=== PATIENT | female | born 1935 | race Caucasian/White ===

== ENCOUNTER 2016-11-30 15:17 | Inpatient (IN) | payer MEDICARE ==
[2016-11-30] MEDS ORDERED: IPRATROPIUM-ALBUTEROL 3 ML NEB INHALATION STA (15:53)
[2016-11-30] MEDS ORDERED: ACETAMINOPHEN TAB 500 MG TAB PO STA (15:53)
[2016-11-30 16:25] LABS: ALT 61 U/L (9-52); AST 65 U/L (14-36); Alkaline Phosphatase 63 U/L (38-126); Anion Gap 12 mmol/L; Blood Urea Nitrogen 20 mg/dL (7-17); Calcium 9.3 mg/dL (8.4-10.2); Carbon Dioxide 28 mmol/L (22-30); Chloride 98 mmol/L (98-107); Glucose 116 mg/dL (74-99); Non-African American GFR(MDRD) >60 (>60 ml/min/1.73 sqM); Sodium 138 mmol/L (137-145); Total Bilirubin 1.1 mg/dL (0.2-1.3); Total Protein 8.1 g/dL (6.3-8.2)
[2016-11-30 16:34] LABS: Creatine Kinase 42 U/L (30-135)
--- NOTE | 2016-11-30 16:37 | ED ---
SOB HPI - General Chief Complaint: Shortness of Breath Stated Complaint: Diff breathing Time Seen by Provider: 11/30/16 15:41 Source: patient, RN notes reviewed Mode of arrival: wheelchair Limitations: no limitations - History of Present Illness Initial Comments: 81-year-old female presents emergency Department chief complaint cough and congestion shortness of breath. Patient states her symptoms started over the last 4 days. She did not areas that she had a fever at home has not taken any acetaminophen. Patient states the cough is productive at time and she has a history of pneumonia. Patient states that she did have a flu shot this year. Patient states this no known lung disease including COPD or asthma. Patient states she does not use any previous injuries at home. Patient states that she' s had a CVA in the past and does take Coumadin. He denies any chest pain. Patient has nausea, vomiting. Patient denies any sick contacts. - Related Data Home Medications Medication Instructions Recorded Confirmed ALPRAZolam [Xanax] 0.25 mg PO HS PRN 11/30/16 11/30/16 Albuterol Sulfate [Proair Hfa] 2 puff INHALATION RT-Q6H PRN 11/30/16 11/30/16 Alendronate Sodium [Fosamax] 70 mg PO SCHMITT 11/30/16 11/30/16 Atenolol [Tenormin] 25 mg PO DAILY 11/30/16 11/30/16 Budesonide/Formoterol Fumarate 2 puff INHALATION RT-BID 11/30/16 11/30/16 [Symbicort 160-4.5 Mcg Inhaler] Citalopram Hydrobromide [CeleXA] 20 mg PO DAILY 11/30/16 11/30/16 Docusate [Colace] 200 mg PO HS 11/30/16 11/30/16 Famotidine [Pepcid] 20 mg PO DAILY 11/30/16 11/30/16 Ferrous Sulfate [Feosol] 325 mg PO DAILY 11/30/16 11/30/16 Furosemide [Lasix] 20 mg PO BID 11/30/16 11/30/16 HYDROcodone/APAP 10-325MG [[place] 1 tab PO Q8H PRN 11/30/16 11/30/16 10-325] Latanoprost [Xalatan 0.005%] 1 drop BOTH EYES HS 11/30/16 11/30/16 Levothyroxine Sodium [Synthroid] 100 mcg PO DAILY 11/30/16 11/30/16 Potassium Chloride ER [K-Dur 10] 10 meq PO DAILY 11/30/16 11/30/16 Simvastatin [Zocor] 40 mg PO HS 11/30/16 11/30/16 Warfarin [Coumadin] 7.5 mg PO SUMOWEFRSA 11/30/16 11/30/16 Warfarin [Coumadin] 10 mg PO TUTH 11/30/16 11/30/16 amLODIPine [Norvasc] 5 mg PO BID 11/30/16 11/30/16 fentaNYL 25MCG/HR PATCH [Durages[place] 1 patch TRANSDERM Q72H 11/30/16 11/30/16 25MCG/HR] rOPINIRole HCL [Requip] 1 mg PO HS 11/30/16 11/30/16 Allergies Allergy/AdvReac Type Severity Reaction Status Date / Time sulfamethoxazole AdvReac Nausea & Verified 11/30/16 16:01 [From Bactrim] Vomiting trimethoprim [From Bactrim] AdvReac Nausea & Verified 11/30/16 16:01 Vomiting Review of Systems ROS Statement: Those systems with pertinent positive or pertinent negative responses have been documented in the HPI. ROS Other: All systems not noted in ROS Statement are negative. Past Medical History Past Medical History: Cancer, CVA/TIA, Hypertension, Osteoarthritis (OA) Additional Past Medical History / Comment(s): Ht Murmur; Colon Ca History of Any Multi-Drug Resistant Organisms: None Reported Past Surgical History: Orthopedic Surgery Additional Past Surgical History / Comment(s): Left hip IM Nailing; Hand surgery Past Psychological History: No Psychological Hx Reported Smoking Status: Former smoker Past Alcohol Use History: None Reported Past Drug Use History: None Reported General Exam Limitations: no limitations General appearance: alert, in no apparent distress Head exam: Present: atraumatic, normocephalic, normal inspection Eye exam: Present: normal appearance, PERRL, EOMI. Absent: scleral icterus, conjunctival injection, periorbital swelling ENT exam: Present: normal exam, mucous membranes moist Neck exam: Present: normal inspection, full ROM. Absent: tenderness, meningismus, lymphadenopathy Respiratory exam: Present: wheezes (Bilateral). Absent: normal lung sounds bilaterally, respiratory distress, rales, rhonchi, stridor Cardiovascular Exam: Present: regular rate, normal rhythm, normal heart sounds. Absent: systolic murmur, diastolic murmur, rubs, gallop, clicks Extremities exam: Present: other (Amputation of the right hand) Neurological exam: Present: alert, oriented X3, CN II-XII intact Skin exam: Present: warm, dry, intact, normal color. Absent: rash Course Vital Signs 11/30/16 11/30/16 11/30/16 15:30 15:40 17:15 Temperature 101.5 F H Pulse Rate 84 74 Respiratory 22 22 Rate Blood Pressure 142/65 129/72 O2 Sat by Pulse 88 L 92 L Oximetry 11/30/16 11/30/16 11/30/16 17:29 17:49 17:50 Temperature 99.8 F H Pulse Rate 73 79 Respiratory Rate Blood Pressure O2 Sat by Pulse Oximetry 11/30/16 17:56 Temperature Pulse Rate 72 Respiratory Rate Blood Pressure 108/57 O2 Sat by Pulse 97 Oximetry Medical Decision Making - Lab Data Result diagrams: 11/30/16 16:59 11/30/16 15:50 Lab Results 11/30/16 11/30/16 11/30/16 Range/Units 15:50 15:50 15:50 WBC (3.8-10.6) k/uL RBC (3.80-5.40) m/uL Hgb (11.4-16.0) gm/dL Hct (34.0-46.0) % MCV (80.0-100.0) fL MCH (25.0-35.0) pg MCHC (31.0-37.0) g/dL RDW (11.5-15.5) % Plt Count (150-450) k/uL Neutrophils % % Lymphocytes % % Monocytes % % Eosinophils % % Basophils % % Neutrophils # (1.3-7.7) k/uL Lymphocytes # (1.0-4.8) k/uL Monocytes # (0-1.0) k/uL Eosinophils # (0-0.7) k/uL Basophils # (0-0.2) k/uL Large Platelets Polychromasia PT (9.0-12.0) sec INR (<1.1) APTT (22.0-30.0) sec Sodium 138 (137-145) mmol/L Potassium 5.0 (3.5-5.1) mmol/L Chloride 98 (98-107) mmol/L Carbon Dioxide 28 (22-30) mmol/L Anion Gap 12 mmol/L BUN 20 H (7-17) mg/dL Creatinine 0.89 (0.52-1.04) mg/dL Est GFR (MDRD) Af Amer >60 (>60 ml/min/1.73 sqM) Est GFR (MDRD) Non-Af >60 (>60 ml/min/1.73 sqM) Glucose 116 H (74-99) mg/dL Calcium 9.3 (8.4-10.2) mg/dL Total Bilirubin 1.1 (0.2-1.3) mg/dL AST 65 H (14-36) U/L ALT 61 H (9-52) U/L Alkaline Phosphatase 63 (38-126) U/L Total Creatine Kinase 42 (30-135) U/L CK-MB (CK-2) <0.2 (0.0-2.4) ng/mL CK-MB (CK-2) Rel Index Troponin I <0.012 (0.000-0.034) ng/mL NT-Pro-B Natriuret Pep 855 pg/mL Total Protein 8.1 (6.3-8.2) g/dL Albumin 4.4 (3.5-5.0) g/dL Influenza Type A RNA (Not Detectd) Influenza Type B (PCR) (Not Detectd) 11/30/16 11/30/16 11/30/16 Range/Units 16:58 16:59 16:59 WBC 7.6 (3.8-10.6) k/uL RBC 3.72 L (3.80-5.40) m/uL Hgb 11.2 L (11.4-16.0) gm/dL Hct 35.1 (34.0-46.0) % MCV 94.3 (80.0-100.0) fL MCH 30.1 (25.0-35.0) pg MCHC 31.9 (31.0-37.0) g/dL RDW 14.4 (11.5-15.5) % Plt Count 76 L (150-450) k/uL Neutrophils % 71 % Lymphocytes % 20 % Monocytes % 5 % Eosinophils % 1 % Basophils % 1 % Neutrophils # 5.4 (1.3-7.7) k/uL Lymphocytes # 1.5 (1.0-4.8) k/uL Monocytes # 0.4 (0-1.0) k/uL Eosinophils # 0.1 (0-0.7) k/uL Basophils # 0.1 (0-0.2) k/uL Large Platelets Present Polychromasia Present PT 20.7 H (9.0-12.0) sec INR 2.2 (<1.1) APTT 28.2 (22.0-30.0) sec Sodium (137-145) mmol/L Potassium (3.5-5.1) mmol/L Chloride (98-107) mmol/L Carbon Dioxide (22-30) mmol/L Anion Gap mmol/L BUN (7-17) mg/dL Creatinine (0.52-1.04) mg/dL Est GFR (MDRD) Af Amer (>60 ml/min/1.73 sqM) Est GFR (MDRD) Non-Af (>60 ml/min/1.73 sqM) Glucose (74-99) mg/dL Calcium (8.4-10.2) mg/dL Total Bilirubin (0.2-1.3) mg/dL AST (14-36) U/L ALT (9-52) U/L Alkaline Phosphatase (38-126) U/L Total Creatine Kinase (30-135) U/L CK-MB (CK-2) (0.0-2.4) ng/mL CK-MB (CK-2) Rel Index Troponin I (0.000-0.034) ng/mL NT-Pro-B Natriuret Pep pg/mL Total Protein (6.3-8.2) g/dL Albumin (3.5-5.0) g/dL Influenza Type A RNA Not Detected (Not Detectd) Influenza Type B (PCR) Not Detected (Not Detectd) 11/30/16 16:41 EKG performed at 15:44 normal sinus rhythm with possible left facial enlargement , left bundle jeanna block, rate of 79, OH 144, QRS duration 148, QT/QTC 418/479 Disposition Clinical Impression: COPD exacerbation, Fever Disposition: ADMITTED IP TO THIS HOSP
[2016-11-30 16:46] LABS: Creatine Kinase MB <0.2 ng/mL (0.0-2.4); Troponin I <0.012 ng/mL (0.000-0.034)
[2016-11-30 17:19] LABS: Basophils # (A) 0.1 k/uL (0-0.2); Basophils % (A) 1 %; CH 30.4; CHCM 32.4; Eosinophils # (A) 0.1 k/uL (0-0.7); Eosinophils % (A) 1 %; HCT 35.1 % (34.0-46.0); HDW 2.66; HGB 11.2 gm/dL (11.4-16.0); Luc # (Auto) 0.17; Luc % (Auto) 2; Lymphocytes # (A) 1.5 k/uL (1.0-4.8); Lymphocytes % (A) 20 %; MCH 30.1 pg (25.0-35.0); MCHC 31.9 g/dL (31.0-37.0); MCV 94.3 fL (80.0-100.0); Mean Platelet Volume 9.7; Monocytes # (A) 0.4 k/uL (0-1.0); Monocytes % (A) 5 %; Neutrophils # (A) 5.4 k/uL (1.3-7.7); Neutrophils % (A) 71 %; RBC 3.72 m/uL (3.80-5.40); RDW 14.4 % (11.5-15.5); WBC 7.6 k/uL (3.8-10.6); WBC (Perox) 8.04
[2016-11-30 17:28] LABS: INR 2.2 (<1.1); Partial Thromboplastin Time 28.2 sec (22.0-30.0); Prothrombin Time 20.7 sec (9.0-12.0)
--- NOTE | 2016-11-30 17:35 | XR ---
EXAMINATION TYPE: XR chest 2V DATE OF EXAM: 11/30/2016 5:27 PM COMPARISON: 10/11/2012 HISTORY: Cough and wheezing TECHNIQUE: Frontal and lateral views of the chest are obtained. FINDINGS: There is slight coarsening of interstitial markings. There is no heart failure. There is o ld posterior right rib fracture. There are a few calcified granulomata at the pulmonary dana. There i s no pleural effusion. There are chest leads. Thoracic aorta is atheromatous. IMPRESSION: Minimal pulmonary fibrotic changes. There is clearing of the mild pleural reaction at th e lung bases compared to old exam. No heart failure.
[2016-11-30 17:56] LABS: Large Platelets Present
[2016-11-30 17:57] LABS: Polychromasia Present
[2016-11-30] MEDS ORDERED: methylPREDNISolone SOD SUCCI 125 MG/2 ML VIAL IV STA (18:19)
[2016-11-30] MEDS ORDERED: NALOXONE 0.4 MG/ML 1 ML VIAL IV PRN (18:23)
[2016-11-30] MEDS ORDERED: ACETAMINOPHEN TAB 325 MG TAB PO PRN (18:23)
[2016-11-30] MEDS ORDERED: ONDANSETRON 4 MG/2 ML VIAL IVP PRN (18:23)
[2016-11-30] MEDS ORDERED: LEVOFLOXACIN 750MG-D5W PMX 750 MG in DEXTROSE/WATER 1 150ML.BAG IVPB STA (18:25)
[2016-11-30 19:16] LABS: Appearance,Urine Clear (Clear); Bacteria,Urine Occasional /hpf; Bilirubin,Urine Negative (Negative); Glucose,Urine (UA) Negative (Negative); Ketones,Urine Negative (Negative); Leukocyte Esterase,Urine Moderate (Negative); Mucus,Urine Rare /hpf; Nitrite,Urine Negative (Negative); Particle Count 1205; Protein,Urine Negative (Negative); RBC,Urine <1 /hpf (0-5); Squamous Epithelial Cell,Urine 1 /hpf (0-4); UA Billing (MACRO vs. MICRO) MICRO; Urobilinogen,Urine <2.0 mg/dL (<2.0); WBC,Urine 19 /hpf (0-5)
[2016-11-30] MEDS: SYMBICORT 160-4.5 MCG INHALER INHALATION SCH (19:50)
[2016-11-30] MEDS: IPRATROPIUM-ALBUTEROL 3 ML NEB INHALATION SCH (19:50)
[2016-11-30] MEDS ORDERED: IPRATROPIUM-ALBUTEROL 3 ML NEB INHALATION SCH (20:00)
[2016-11-30] MEDS: IPRATROPIUM-ALBUTEROL 3 ML NEB INHALATION PRN (20:33)
[2016-11-30] MEDS: amLODIPine 5 MG TAB PO SCH (21:37)
[2016-11-30] MEDS: FUROSEMIDE 20 MG TAB PO SCH (21:37)
[2016-11-30] MEDS: ATORVASTATIN 20 MG TAB PO SCH (21:37)
[2016-11-30] MEDS: LATANOPROST 0.005% OPHTH DROPS 2.5 ML BTL BOTH EYES SCH (21:37)
[2016-11-30] MEDS: WARFARIN 7.5 MG TAB PO SCH (21:37)
[2016-12-01] MEDS: methylPREDNISolone SOD SUCCI 125 MG/2 ML VIAL IV SCH ×2 (00:10→08:36)
[2016-12-01] MEDS: ALPRAZolam 0.25 MG TAB PO PRN (00:13)
[2016-12-01] MEDS: LEVOTHYROXINE 100 MCG TAB PO SCH (06:13)
[2016-12-01 07:17] LABS: Glucose,Whole Blood 200 mg/dL (75-99)
[2016-12-01] MEDS: IPRATROPIUM-ALBUTEROL 3 ML NEB INHALATION SCH ×5 (07:29→18:39)
[2016-12-01] MEDS: SYMBICORT 160-4.5 MCG INHALER INHALATION SCH ×2 (07:29→18:39)
[2016-12-01] MEDS: CITALOPRAM HYDROBROMIDE 20 MG TAB PO SCH (08:36)
[2016-12-01] MEDS: FUROSEMIDE 20 MG TAB PO SCH ×2 (08:36→17:30)
[2016-12-01] MEDS: PANTOPRAZOLE 40 MG/10 ML VIAL IV SCH (08:36)
[2016-12-01] MEDS: amLODIPine 5 MG TAB PO SCH ×2 (08:36→21:14)
[2016-12-01] MEDS: POTASSIUM CHLORIDE ER 10 MEQ TAB.ER.PRT PO SCH (08:36)
[2016-12-01] MEDS: ATENOLOL 25 MG TAB PO SCH (08:36)
[2016-12-01 11:57] LABS: Glucose,Whole Blood 228 mg/dL (75-99)
[2016-12-01] MEDS: IPRATROPIUM-ALBUTEROL 3 ML NEB INHALATION PRN (15:09)
[2016-12-01 17:03] LABS: Glucose,Whole Blood 225 mg/dL (75-99)
[2016-12-01] MEDS: WARFARIN 7.5 MG TAB PO SCH (17:30)
[2016-12-01] MEDS: methylPREDNISolone SOD SUCCI 40 MG/ML 1 ML VIAL IV SCH (17:30)
--- NOTE | 2016-12-01 18:15 | HP ---
DATE OF ADMISSION: 11/30/2016 PRESENTING COMPLAINT: Short of breath, wheezing. HISTORY OF PRESENTING COMPLAINT: This is a pleasant 81-year-old patient of Dr. Maya, whose chronic stable medical conditions include GERD, hypertension, hyperlipidemia, osteoarthritis, hypothyroid disease, rosacea, restless leg syndrome, urine incontinence, for two days has been a bit short of breath, cough, bringing up some green sputum. Denies any fever, appetite is slightly low. Slight wheezing, presented for the same. REVIEW OF SYSTEMS: CONSTITUTIONAL: Tired. HEENT: As above. RESPIRATORY: As above. CARDIOVASCULAR: None. GASTROINTESTINAL: Heartburn. GENITOURINARY: None. MUSCULOSKELETAL: Aches and pains in different joints. DERMATOLOGICAL: None. HEMATOLOGICAL: None. LYMPHATIC: None. PSYCHIATRY: None. NEUROLOGICAL: None. Past medical history of asthma, stroke with no residual, GERD, hyperlipidemia, hypertension, osteoarthritis, hypothyroid, colon cancer with surgery, rosacea, restless leg syndrome, urine incontinence. PAST SURGICAL HISTORY: Bowel resection, left hip IM nailing, right hand surgery grafting, carpal tunnel, bilateral cataract and right hand surgery and ( ). The patient has only one finger. SOCIAL HISTORY: Lives with her son. Smoked a pack and a half for over 20 years; stopped in 1996. No alcohol. Family history of cirrhosis from alcohol use. HOME MEDICATIONS: 1. Requip 1 mg p.o. q.h.s. 2. Fentanyl 25 mcg patch every 72 hours. 3. Norvasc 5 mg b.i.d. 4. Coumadin 7.5 mg Saturday, Saturday, Saturday, Saturday, Saturday and 10 mg on Saturday and . 5. Zocor 40 mg q.h.s. 6. Potassium 10 mEq a day. 7. Synthroid 100 mcg a day. 8. Xalatan 0.005% one drop to both eyes q.h.s. 9. [place] 10, 1 tablet p.o. q.8 p.r.n. 10. Lasix 20 mg b.i.d. 11. Iron 325 p.o. daily. 12. Pepcid 20 mg daily. 13. Colace 200 mg p.o. q.h.s. 14. Celexa 20 mg daily. 15. Symbicort 160/4.5, 2 puffs b.i.d. 16. Tenormin 25 mg p.o. daily. 17. Fosamax 70 mg p.o. Sundays. 18. ProAir 2 puffs q.6 p.r.n. 19. Xanax 0.25 p.o. q.h.s. p.r.n. ALLERGIES TO BACTRIM. On examination, temperature 101.5, pulse 84, respiration 22, blood pressure 142/65, pulse ox 88% on room air. GENERAL APPEARANCE: Well built, BMI of 36, lying in bed, tired appearing. EYES: Pupils equal. Conjunctivae normal. HEENT: Oral cavity normal. NECK: JVD not raised. Mass not palpable. RESPIRATORY: Effort increased. LUNGS: Diminished breath sounds. Mild wheezing. CARDIOVASCULAR: First and second seconds normal. No edema. ABDOMEN: Soft, nontender. Liver and spleen and palpable. LYMPHATIC: No lymph node palpable in neck or axillae. PSYCHIATRY: Alert and oriented x3. Mood and affect normal. NEUROLOGICAL: Pupils equal. Cranial nerves grossly intact. Power and sensation grossly intact. MUSCULOSKELETAL: ( ). EXTREMITIES: Evidence of injury to the right hand with social lines in place with prior surgical intervention. INVESTIGATIONS: White count 7.6, hemoglobin 11.2, potassium 5.0, BUN 20, creatinine 0.89. UA for leukocyte esterase, WBC. Influenza A and B are negative. Chest x-ray shows quite interstitial markings. ASSESSMENT: 1. Suspect acute bilateral pneumonitis, probably viral, cannot rule out a bacterial cause; hence, will cover for the latter. 2. Acute exacerbation of moderate persistent asthma. 3. Gastroesophageal reflux disease. 4. Hyperlipidemia. 5. Essential hypertension. 6. Primary osteoarthritis in multiple joints. 7. Hypothyroidism. 8. History of colon cancer with surgery. 9. Rosacea. 10. Chronic restless leg syndrome. 11. Chronic urinary incontinence. 12. Left bundle branch block on electrocardiogram. PLAN: Patient did get antibiotics IV in the ER. Will switched to p.o. Will give patient IV Solu-Medrol, nebulized bronchodilators. Home medications are resumed. Care was discussed with the patient. Will also add Claritin-D. INR will be closely followed. Care was discussed with the patient.
[2016-12-01] MEDS: LATANOPROST 0.005% OPHTH DROPS 2.5 ML BTL BOTH EYES SCH (21:14)
[2016-12-01] MEDS: LORATADINE-PSEUDOEPH 5-120 MG 1 EACH TAB.ER.12H PO SCH (21:14)
[2016-12-01] MEDS: CEFUROXIME 250 MG TAB PO SCH (21:14)
[2016-12-01] MEDS: ATORVASTATIN 20 MG TAB PO SCH (21:14)
[2016-12-01 21:26] LABS: Glucose,Whole Blood 230 mg/dL (75-99)
[2016-12-01] MEDS: INSULIN LISPRO (humaLOG) 300 UNIT/3 ML VIAL SQ SCH (22:49)
[2016-12-02] MEDS: ALPRAZolam 0.25 MG TAB PO PRN ×2 (00:02→22:06)
[2016-12-02] MEDS: methylPREDNISolone SOD SUCCI 40 MG/ML 1 ML VIAL IV SCH ×4 (00:02→23:44)
[2016-12-02] MEDS: LEVOTHYROXINE 100 MCG TAB PO SCH (06:14)
[2016-12-02] MEDS: SYMBICORT 160-4.5 MCG INHALER INHALATION SCH ×2 (07:16→21:11)
[2016-12-02] MEDS: IPRATROPIUM-ALBUTEROL 3 ML NEB INHALATION SCH ×4 (07:16→21:11)
[2016-12-02 07:57] LABS: Glucose,Whole Blood 195 mg/dL (75-99)
[2016-12-02] MEDS: CITALOPRAM HYDROBROMIDE 20 MG TAB PO SCH (08:06)
[2016-12-02] MEDS: FUROSEMIDE 20 MG TAB PO SCH ×2 (08:06→17:35)
[2016-12-02] MEDS: LORATADINE-PSEUDOEPH 5-120 MG 1 EACH TAB.ER.12H PO SCH ×2 (08:06→22:05)
[2016-12-02] MEDS: ATENOLOL 25 MG TAB PO SCH (08:06)
[2016-12-02] MEDS: amLODIPine 5 MG TAB PO SCH ×2 (08:06→22:04)
[2016-12-02] MEDS: POTASSIUM CHLORIDE ER 10 MEQ TAB.ER.PRT PO SCH (08:06)
[2016-12-02] MEDS: CEFUROXIME 250 MG TAB PO SCH ×2 (08:06→22:04)
[2016-12-02] MEDS: PANTOPRAZOLE 40 MG/10 ML VIAL IV SCH (08:07)
[2016-12-02] MEDS: INSULIN LISPRO (humaLOG) 300 UNIT/3 ML VIAL SQ SCH ×4 (08:07→22:05)
[2016-12-02 08:49] LABS: INR 2.2 (<1.1); Prothrombin Time 21.2 sec (9.0-12.0)
[2016-12-02] MEDS: HYDROcodone/APAP 10-325MG 1 EACH TAB PO PRN ×2 (09:23→22:06)
[2016-12-02 11:49] LABS: Glucose,Whole Blood 318 mg/dL (75-99)
[2016-12-02 13:55] LABS: Hemoglobin A1C 5.8 % (4.2-6.1)
[2016-12-02 17:07] LABS: Glucose,Whole Blood 211 mg/dL (75-99)
[2016-12-02] MEDS: WARFARIN 7.5 MG TAB PO SCH (17:35)
[2016-12-02 21:46] LABS: Glucose,Whole Blood 259 mg/dL (75-99)
[2016-12-02] MEDS: ATORVASTATIN 20 MG TAB PO SCH (22:04)
[2016-12-02] MEDS: LATANOPROST 0.005% OPHTH DROPS 2.5 ML BTL BOTH EYES SCH (22:05)
[2016-12-03] MEDS: LEVOTHYROXINE 100 MCG TAB PO SCH (06:40)
[2016-12-03 07:45] LABS: Glucose,Whole Blood 248 mg/dL (75-99)
[2016-12-03] MEDS: PANTOPRAZOLE 40 MG/10 ML VIAL IV SCH (08:28)
[2016-12-03] MEDS: INSULIN LISPRO (humaLOG) 300 UNIT/3 ML VIAL SQ SCH ×4 (08:28→21:51)
[2016-12-03] MEDS: CEFUROXIME 250 MG TAB PO SCH ×2 (08:28→20:42)
[2016-12-03] MEDS: FUROSEMIDE 20 MG TAB PO SCH ×2 (08:29→17:57)
[2016-12-03] MEDS: ATENOLOL 25 MG TAB PO SCH (08:29)
[2016-12-03] MEDS: amLODIPine 5 MG TAB PO SCH ×2 (08:29→20:42)
[2016-12-03] MEDS: LORATADINE-PSEUDOEPH 5-120 MG 1 EACH TAB.ER.12H PO SCH ×2 (08:29→20:43)
[2016-12-03] MEDS: CITALOPRAM HYDROBROMIDE 20 MG TAB PO SCH (08:30)
[2016-12-03] MEDS: methylPREDNISolone SOD SUCCI 40 MG/ML 1 ML VIAL IV SCH ×2 (08:30→18:54)
[2016-12-03] MEDS: POTASSIUM CHLORIDE ER 10 MEQ TAB.ER.PRT PO SCH (08:30)
[2016-12-03 09:13] LABS: INR 2.6 (<1.1); Prothrombin Time 25.4 sec (9.0-12.0)
[2016-12-03 09:35] LABS: Basophils % (A) 0 %; CH 29.9; CHCM 31.6; Eosinophils % (A) 0 %; HCT 33.6 % (34.0-46.0); HDW 2.76; HGB 10.8 gm/dL (11.4-16.0); Hypochromasia Slight; Luc # (Auto) 0.14; Luc % (Auto) 1; Lymphocytes # (A) 1.3 k/uL (1.0-4.8); Lymphocytes % (A) 12 %; MCH 30.4 pg (25.0-35.0); Mean Platelet Volume 9.6; Monocytes # (A) 0.4 k/uL (0-1.0); Monocytes % (A) 4 %; Neutrophils # (A) 9.2 k/uL (1.3-7.7); Neutrophils % (A) 83 %; RBC 3.54 m/uL (3.80-5.40); RDW 14.3 % (11.5-15.5); WBC 11.1 k/uL (3.8-10.6); WBC (Perox) 11.24
[2016-12-03] MEDS: SYMBICORT 160-4.5 MCG INHALER INHALATION SCH ×2 (09:41→19:33)
[2016-12-03] MEDS: IPRATROPIUM-ALBUTEROL 3 ML NEB INHALATION SCH ×4 (09:41→19:35)
[2016-12-03 11:05] LABS: Anion Gap 17 mmol/L; Blood Urea Nitrogen 40 mg/dL (7-17); Calcium 8.4 mg/dL (8.4-10.2); Carbon Dioxide 20 mmol/L (22-30); Chloride 105 mmol/L (98-107); Glucose 293 mg/dL (74-99); Non-African American GFR(MDRD) 57 (>60 ml/min/1.73 sqM); Potassium 5.2 mmol/L (3.5-5.1); Sodium 142 mmol/L (137-145)
--- NOTE | 2016-12-03 11:08 | P.CNPUL ---
History of Present Illness Consult date: 12/03/16 Reason for consult: dyspnea, cough, COPD Chief complaint: Shortness of breath History of present illness: This is an 81-year-old female who presented to the emergency department on November 30 with complaints of the chest congestion shortness of breath. She apparently was admitted with a diagnosis of possible bronchitis. I was not consulted earlier only today. The patient had apparently been getting sick for about 3 or 4 days prior to her admission date. She was coughing up phlegm. He had a yellow-green color to it. The patient did deny any fever. No chills. Lots of chest congestion. No chest pain. No nausea vomiting or diarrhea. The patient does have a history of CVA hypertension DJD colon cancer and some minor some other minor issues. She appears also to have hyperlipidemia and hypothyroidism. Review of Systems A total point review of system is positive for chest congestion cough wheezing shortness of breath all of which have improved since she's been in the hospital. She is feeling better. Still not back to baseline though. Past Medical History Past Medical History: Asthma, Cancer, CVA/TIA, GERD/Reflux, Hyperlipidemia, Hypertension, Osteoarthritis (OA), Pneumonia, Thyroid Disorder, Vascular Disorder Additional Past Medical History / Comment(s): Murmur; constipation,Colon Ca 2001 (has sx,chemo and radiation),rosecea,injur to rt hand lost most of it. rls, glaucoma,pleurisy, sinus problems,uti, urinary incont-wears a pad. past falls( broke lt hip(had sx), uses a w/c when out side the home.pne vaccine in past-not sure of the date. History of Any Multi-Drug Resistant Organisms: None Reported Past Surgical History: Bowel Resection, Orthopedic Surgery Additional Past Surgical History / Comment(s): Left hip IM Nailing; rt Hand surgery-grafting done(donor site was abd), carpal tunnel, krista cataracats, colonoscopy/polypectomy. Past Anesthesia/Blood Transfusion Reactions: No Reported Reaction Past Psychological History: No Psychological Hx Reported Smoking Status: Former smoker Past Alcohol Use History: None Reported Additional Past Alcohol Use History / Comment(s): started smoking 1966,quit 1986 , smkoed 1.5 ppd Past Drug Use History: None Reported - Past Family History Father Family Medical History: Liver Disease Additional Family Medical History / Comment(s): etoh abuse-cirrhosis of the liver Mother Additional Family Medical History / Comment(s): brain anuerysm Medications and Allergies Home Medications Medication Instructions Recorded Confirmed Type ALPRAZolam [Xanax] 0.25 mg PO HS PRN 11/30/16 11/30/16 History Albuterol Sulfate [Proair Hfa] 2 puff INHALATION RT-Q6H PRN 11/30/16 11/30/16 History Alendronate Sodium [Fosamax] 70 mg PO SCHMITT 11/30/16 11/30/16 History Atenolol [Tenormin] 25 mg PO DAILY 11/30/16 11/30/16 History Budesonide/Formoterol Fumarate 2 puff INHALATION RT-BID 11/30/16 11/30/16 History [Symbicort 160-4.5 Mcg Inhaler] Citalopram Hydrobromide [CeleXA] 20 mg PO DAILY 11/30/16 11/30/16 History Docusate [Colace] 200 mg PO HS 11/30/16 11/30/16 History Famotidine [Pepcid] 20 mg PO DAILY 11/30/16 11/30/16 History Ferrous Sulfate [Feosol] 325 mg PO DAILY 11/30/16 11/30/16 History Furosemide [Lasix] 20 mg PO BID 11/30/16 11/30/16 History HYDROcodone/APAP 10-325MG [[place] 1 tab PO Q8H PRN 11/30/16 11/30/16 History 10-325] Latanoprost [Xalatan 0.005%] 1 drop BOTH EYES HS 11/30/16 11/30/16 History Levothyroxine Sodium [Synthroid] 100 mcg PO DAILY 11/30/16 11/30/16 History Potassium Chloride ER [K-Dur 10] 10 meq PO DAILY 11/30/16 11/30/16 History Simvastatin [Zocor] 40 mg PO HS 11/30/16 11/30/16 History Warfarin [Coumadin] 7.5 mg PO SUMOWEFRSA 11/30/16 11/30/16 History Warfarin [Coumadin] 10 mg PO TUTH 11/30/16 11/30/16 History amLODIPine [Norvasc] 5 mg PO BID 11/30/16 11/30/16 History fentaNYL 25MCG/HR PATCH [Duragesic 1 patch TRANSDERM Q72H 11/30/16 11/30/16 History 25MCG/HR] rOPINIRole HCL [Requip] 1 mg PO HS 11/30/16 11/30/16 History Allergies Allergy/AdvReac Type Severity Reaction Status Date / Time sulfamethoxazole AdvReac Nausea & Verified 11/30/16 16:01 [From Bactrim] Vomiting trimethoprim [From Bactrim] AdvReac Nausea & Verified 11/30/16 16:01 Vomiting Physical Exam Osteopathic Statement: *. No significant issues noted on an osteopathic structural exam other than those noted in the History and Physical/Consult. Vitals: Vital Signs Temp Pulse Pulse Resp BP BP Pulse Ox 12/03/16 09:59 76 12/03/16 09:42 88 12/03/16 07:00 96.9 F L 87 18 139/75 95 12/03/16 01:00 97 F L 82 20 141/66 94 L 12/02/16 21:21 108 H 12/02/16 21:11 109 H 12/02/16 16:31 77 12/02/16 16:20 77 12/02/16 16:00 18 12/02/16 15:00 96.2 F L 81 16 129/60 95 12/02/16 11:11 88 Intake and Output 12/02/16 12/03/16 12/03/16 22:59 06:59 14:59 Intake Total 250 Balance 250 Intake: Oral 250 Other: Voiding Method Bedside Commode Bedside Commode # Voids 1 1 Weight 88 kg No acute distress, oriented 3. HEENT examination is grossly unremarkable. Mucous membranes are moist. No oral lesions. Supple. Full range of motion. No adenopathy. Cardiovascular examination reveals distant heart sounds. S1-S2 normal. No distinct murmur. Heart sounds are obscured by her adventitious lung sounds. Lungs reveal some coarse rhonchi. Breath sounds diminished. This some high- pitched expiratory wheezes. A few scattered basilar crackles noted. Abdomen soft. Extremities are intact. Results - Laboratory Findings CBC and BMP: 12/03/16 08:45 11/30/16 15:50 PT/INR, D-dimer PT 25.4 sec (9.0-12.0) H 01/23/17 08:32 INR 2.6 (<1.1) 12/03/16 08:32 Abnormal lab findings: Abnormal Labs 12/01/16 12/01/16 12/01/16 07:15 11:55 17:02 WBC RBC Hgb Hct Plt Count Neutrophils # PT POC Glucose (mg/dL) 200 H 228 H 225 H 12/01/16 12/02/16 12/02/16 21:00 07:18 07:36 WBC RBC Hgb Hct Plt Count Neutrophils # PT 21.2 H POC Glucose (mg/dL) 230 H 195 H 12/02/16 12/02/16 12/02/16 11:48 17:00 20:47 WBC RBC Hgb Hct Plt Count Neutrophils # PT POC Glucose (mg/dL) 318 H 211 H 259 H 12/03/16 12/03/16 12/03/16 07:20 08:32 08:45 WBC 11.1 H RBC 3.54 L Hgb 10.8 L Hct 33.6 L Plt Count 85 L Neutrophils # 9.2 H PT 25.4 H POC Glucose (mg/dL) 248 H - Diagnostic Findings Chest x-ray: image reviewed (Chest x-ray is not real impressive.) Assessment and Plan (1) Acute bronchitis Status: Acute (2) COPD exacerbation Status: Acute Plan: Plan The patient seems be doing better. I'll review the medications. She was a smoker in the past. She smoked for 21 years at a pack a day. She may have some underlying COPD. This appears to be also be an infectious bronchitis more than anything else. I don't think there is kelly pneumonia in this patient. Additional recommendations suggestions are forthcoming. Time with Patient: Greater than 30
--- NOTE | 2016-12-03 11:23 | PN ---
DATE OF SERVICE: 12/02/2016 PRESENTING COMPLAINT: Shortness of breath, wheezing. INTERVAL HISTORY: This patient presented with asthma exacerbation, possibly bilateral pneumonitis. Patient did desaturate when tried to take her off the oxygen. Face feels a bit better. Did tolerate some diet. Review of systems done for constitutional, cardiovascular, GI, pulmonary; relevant findings as above. Current medications are reviewed that include IV Solu-Medrol, nebulized bronchodilators, Ceftin. On examination, temperature 96.2, pulse 81, respirations 16, blood pressure 120/60, pulse ox 95% on 2 liters and 84% on room air. GENERAL APPEARANCE: Sitting up, not in distress. EYES: Pupils equal. Conjunctivae normal. NECK: JVD not raised. Mass not palpable. RESPIRATORY: Effort increased. LUNGS: Diminished breath sounds. CARDIOVASCULAR: First and second sounds normal. No edema. ABDOMEN: Soft, nontender. Liver and spleen not palpable. PSYCHIATRY: Alert and oriented x3. Mood and affect normal. INVESTIGATIONS: Accu-Cheks are noted. ASSESSMENT: 1. Suspect acute bilateral pneumonitis, probably viral cannot rule out a secondary bacterial superimposed infection. 2. Acute exacerbation of moderate persistent asthma. 3. Gastroesophageal reflux disease. 4. Hyperlipidemia. 5. Essential hypertension. 6. Crampy osteoarthritis in multiple joints, bilateral. 7. Hypothyroidism, chronic. 8. History of colon cancer with surgery. 9. Rosacea. 10. Chronic restless leg syndrome. 11. Urinary incontinence. 12. Right bundle branch block on the EKG. 13. Acute hypoxic respiratory failure, with pulse ox dropping to 84% on room air PLAN: Continue current medication and treatment plan. Follow with pulmonary.
[2016-12-03 12:04] LABS: Glucose,Whole Blood 218 mg/dL (75-99)
[2016-12-03 16:54] LABS: Glucose,Whole Blood 209 mg/dL (75-99)
[2016-12-03] MEDS: WARFARIN 7.5 MG TAB PO SCH (17:57)
[2016-12-03] MEDS: DOCUSATE 100 MG CAP PO SCH (20:42)
[2016-12-03] MEDS: ATORVASTATIN 20 MG TAB PO SCH (20:42)
[2016-12-03] MEDS: LATANOPROST 0.005% OPHTH DROPS 2.5 ML BTL BOTH EYES SCH (20:43)
[2016-12-03 21:25] LABS: Glucose,Whole Blood 195 mg/dL (75-99)
--- NOTE | 2016-12-03 23:09 | PN ---
DATE OF SERVICE: 12/03/2016 PRESENTING COMPLAINT: Shortness of breath, wheezing. INTERVAL HISTORY: This patient presented with what may be actually COPD exacerbation, as patient is an ex-smoker, and bilateral pneumonitis. Patient is doing better. Patient did desaturate yesterday. I saw this patient this morning. Waiting for pulmonary input. Review of systems done for constitutional, cardiovascular, GI, pulmonary; relevant findings as above. Sputum production has gone. Current medications are reviewed that include IV Solu-Medrol, Ceftin. On examination, temperature 96.7, pulse 80, respiration 18, blood pressure 138/71, pulse ox 94% on 2 L. GENERAL APPEARANCE: Sitting up, not in distress. EYES: Pupils equal. Conjunctivae normal. NECK: JVD not raised. Mass not palpable. RESPIRATORY: Effort increased. LUNGS: Diminished breath sounds. CARDIOVASCULAR: First and second sounds normal. No edema. ABDOMEN: Soft, nontender. Liver and spleen not palpable. PSYCHIATRY: Alert and oriented x3. Mood and affect normal. INVESTIGATIONS: White count 11.1, hemoglobin 10.8. Potassium 5.0. BUN 40, creatinine 0.95. Accu-Cheks are noted. INR is 2.6. ASSESSMENT: 1. Suspect acute bilateral pneumonitis, probably viral, possibly secondary to bacterial ( ) infections are possible. 2. Acute exacerbation of chronic obstructive pulmonary disease in an ex-smoker. 3. Gastroesophageal reflux disease. 4. Hyperlipidemia. 5. Essential hypertension. 6. Primary osteoarthritis in multiple joints, bilateral. 7. Hypothyroidism, chronic. 8. History of colon cancer with surgery. 9. Rosacea, chronic. 10. Restless leg syndrome, chronic. 11. Chronic urinary incontinence. 12. Right bundle branch block on EKG. 13. Acute hypoxic respiratory failure with pulse ox dropping to 84% on room air. 14. Possibly low platelets from idiopathic thrombocytopenic purpura. PLAN: Continue current medication and treatment plan. Follow with Pulmonary.
[2016-12-04] MEDS: ALPRAZolam 0.25 MG TAB PO PRN (01:32)
[2016-12-04] MEDS: IPRATROPIUM-ALBUTEROL 3 ML NEB INHALATION PRN (04:51)
[2016-12-04] MEDS: LEVOTHYROXINE 100 MCG TAB PO SCH (06:30)
[2016-12-04 07:28] LABS: Glucose,Whole Blood 118 mg/dL (75-99)
[2016-12-04] MEDS ORDERED: PANTOPRAZOLE 40 MG TABLET PO SCH (07:30)
[2016-12-04 08:16] VITALS: BP 143/59; RESP 16; TEMP 97.5
[2016-12-04] MEDS ORDERED: predniSONE 20 MG TAB PO SCH (09:00)
[2016-12-04] MEDS: FUROSEMIDE 20 MG TAB PO SCH (09:13)
[2016-12-04] MEDS: CEFUROXIME 250 MG TAB PO SCH (09:13)
[2016-12-04] MEDS: ATENOLOL 25 MG TAB PO SCH (09:14)
[2016-12-04] MEDS: DOCUSATE 100 MG CAP PO SCH (09:14)
[2016-12-04] MEDS: INSULIN LISPRO (humaLOG) 300 UNIT/3 ML VIAL SQ SCH ×2 (09:14→13:14)
[2016-12-04] MEDS: amLODIPine 5 MG TAB PO SCH (09:14)
[2016-12-04] MEDS: CITALOPRAM HYDROBROMIDE 20 MG TAB PO SCH (09:14)
[2016-12-04] MEDS: LORATADINE-PSEUDOEPH 5-120 MG 1 EACH TAB.ER.12H PO SCH (09:14)
[2016-12-04] MEDS: POTASSIUM CHLORIDE ER 10 MEQ TAB.ER.PRT PO SCH ×2 (09:15→10:42)
[2016-12-04] MEDS: IPRATROPIUM-ALBUTEROL 3 ML NEB INHALATION SCH ×2 (09:39→13:25)
[2016-12-04] MEDS: SYMBICORT 160-4.5 MCG INHALER INHALATION SCH (09:39)
[2016-12-04 09:54] LABS: INR 3.3 (<1.1); Prothrombin Time 31.7 sec (9.0-12.0)
[2016-12-04 10:07] LABS: Anion Gap 14 mmol/L; Blood Urea Nitrogen 31 mg/dL (7-17); Calcium 8.2 mg/dL (8.4-10.2); Carbon Dioxide 23 mmol/L (22-30); Chloride 104 mmol/L (98-107); Glucose 239 mg/dL (74-99); Non-African American GFR(MDRD) >60 (>60 ml/min/1.73 sqM); Potassium 3.9 mmol/L (3.5-5.1); Sodium 141 mmol/L (137-145)
--- NOTE | 2016-12-04 12:00 | P.PN ---
Subjective Progress note dated 12/04/2016 This is a 81-year-old female who I saw yesterday in consultation. She was minute to the hospital on 11/30/2016 with chest congestion and shortness of breath. I suspected a COPD exacerbation. She's doing very well today will be discharged out of the hospital. She's not seeing any of us in the office so therefore she'll see that doctor who did her consult which is my partner. Anyway she is feeling much better. She was seen with Dr. Barajas the primary in the room. She is excited to be discharged. Objective - Vital Signs Vital signs: Vital Signs Temp 97.5 F L 12/04/16 07:00 Pulse 94 12/04/16 09:55 Resp 16 12/04/16 07:00 BP 143/59 12/04/16 07:00 Pulse Ox 91 L 12/04/16 07:00 Intake & Output 12/03/16 12/04/16 12/04/16 18:59 06:59 18:59 Intake Total 750 500 Balance 750 500 Weight 85 kg Intake: Oral 750 500 Other: Voiding Method Bedside Commode Toilet Toilet # Voids 3 3 # Bowel Movements 1 - Exam No acute distress, oriented 3. HEENT examination is grossly unremarkable. Supple. Full range of motion. No adenopathy. Neck veins are flat. Cardiovascular examination reveals regular rhythm rate. Lungs reveal somewhat diminished but relatively clear breath sounds. A few scattered rhonchi and wheezes. Breath sounds are dramatically improved though. Abdomen soft. Extremities are intact. - Labs CBC & Chem 7: 12/03/16 08:45 12/04/16 09:21 Labs: Abnormal Lab Results - Last 24 Hours (Table) 12/03/16 12/03/16 12/03/16 Range/Units 11:58 16:52 21:22 PT (9.0-12.0) sec BUN (7-17) mg/dL Glucose (74-99) mg/dL POC Glucose (mg/dL) 218 H 209 H 195 H (75-99) mg/dL Calcium (8.4-10.2) mg/dL 12/04/16 12/04/16 12/04/16 Range/Units 07:07 09:21 09:22 PT 31.7 H (9.0-12.0) sec BUN 31 H (7-17) mg/dL Glucose 239 H (74-99) mg/dL POC Glucose (mg/dL) 118 H (75-99) mg/dL Calcium 8.2 L (8.4-10.2) mg/dL Assessment and Plan (1) Acute bronchitis Status: Acute (2) COPD exacerbation Status: Acute Plan: Plan The patient seems be doing better. I'll review the medications. She was a smoker in the past. She smoked for 21 years at a pack a day. She may have some underlying COPD. This appears to be also be an infectious bronchitis more than anything else. I don't think there is kelly pneumonia in this patient. Additional recommendations suggestions are forthcoming. Plan dated 12/04/2016 The patient will be discharged home today. She should be discharged home on some antibiotic orally for a short course. She also can be discharged home on a prednisone burst and taper. She will make sure she sees Dr. Garcia in follow- up. Sodium recommendations are made. She will need a pulmonary function tests which is in the office. Time with Patient: Less than 30
[2016-12-04 12:18] LABS: Glucose,Whole Blood 122 mg/dL (75-99)
[2016-12-04 13:40] VITALS: PULSE 92
[2016-12-04] MEDS ORDERED: WARFARIN 10 MG TAB PO SCH (18:00)
--- NOTE | 2016-12-05 16:39 | DS ---
DATE OF ADMISSION: 11/30/2016 DATE OF DISCHARGE: 12/04/2016 FINAL DIAGNOSIS(ES): 1. Acute bilateral pneumonitis, likely viral. 2. Acute chronic obstructive pulmonary disease exacerbation in an ex-smoker on presentation. 3. Gastroesophageal reflux disease. 4. Hyperlipidemia. 5. Essential hypertension, chronic. 6. Primary osteoarthritis, multiple joints, bilaterally. 7. Hypothyroidism, chronic. 8. History of colon cancer with surgery. 9. Rosacea, chronic. 10. Restless leg syndrome, chronic. 11. Chronic urinary incontinence. 12. Right bundle branch block. 13. Acute hypoxic respiratory failure present on admission. Pulse ox was dropping 84% on room air. 14. 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 CONSULTATION: Dr. Garcia from pulmonary. HOSPITAL COURSE: This patient presented with ( ) bilateral pneumonitis. Patient is hypoxic. ( ) did come down by the time of discharge. The patient is an ex-smoker doing much better at the time of discharge. Care was discussed in detail with the patient. On exam, lungs improved air entry, pulse ox 92% on room. DISCHARGE MEDICATIONS: 1. Xanax 0.25 p.o. q.h.s. 2. Pro-Air HFA 2 puffs q.6 p.r.n. 3. Fosamax 70 mg p.o. Saturday. 4. Tenormin 25 mg p.o. daily. 5. Symbicort 160/4.5, 2 puffs b.i.d. 6. Celexa 20 mg p.o. daily. 7. Colace 200 mg p.o. q.h.s. 8. Pepcid 20 mg p.o. daily. 9. Iron 325 p.o. daily. 10. Lasix 20 mg p.o. daily. 11. [place] 10, 1 tablet q.8 p.r.n. 12. Xalatan 0.05% one drop both eyes q.h.s. 13. Synthroid 100 mcg p.o. daily. 14. Potassium 10 meq daily. 15. Zocor 40 mg q.h.s. 16. Coumadin 7.5 mg Saturday, Saturday, Saturday and Saturday, Saturday and 10 mg, Saturday, . 17. Norvasc 5 mg p.o. b.i.d. 18. Duragesic 25 patch q.72h. 19. Requip 1 mg p.o. q.h.s. 15. Ceftin 500 mg p.o. b.i.d. 6 tablets. 16. Humalog per scale. 17. Atrovent HFA 2 puffs q.i.d. 18. Claritin-D 1 tablet q.12, 10 tablets. 20. Protonix 40 mg a day. 21. Prednisone taper. Follow-up with Dr. Garcia on 12/11/2016. Follow-up with Dr. Maya on 12/11/2016. D/C planning more than 35 minutes. Lungs slightly decreased breath sounds.
== END 2016-12-04 16:00 | disposition home or self-care (01) | DRG 190 ==
LOC: EC 15:17 → 4MS4W 18:23
PROVIDERS: ADMIT Hospitalist; ATTEND Hospitalist
DX: J44.0 Chronic obstructive pulmonary disease with (acute) lower respiratory infection (principal); J12.9 Viral pneumonia, unspecified; J96.01 Acute respiratory failure with hypoxia; D69.3 Immune thrombocytopenic purpura; J45.41 Moderate persistent asthma with (acute) exacerbation; I45.2 Bifascicular block; K21.9 Gastro-esophageal reflux disease without esophagitis; J44.1 Chronic obstructive pulmonary disease with (acute) exacerbation; E03.9 Hypothyroidism, unspecified; E78.5 Hyperlipidemia, unspecified; G25.81 Restless legs syndrome; H40.9 Unspecified glaucoma; I10 Essential (primary) hypertension; J20.9 Acute bronchitis, unspecified; L71.9 Rosacea, unspecified; M15.9 Polyosteoarthritis, unspecified; R32 Unspecified urinary incontinence; R01.1 Cardiac murmur, unspecified; Z79.01 Long term (current) use of anticoagulants; Z79.899 Other long term (current) drug therapy; Z85.038 Personal history of other malignant neoplasm of large intestine; Z87.01 Personal history of pneumonia (recurrent); Z87.891 Personal history of nicotine dependence; Z88.2 Allergy status to sulfonamides; Z88.1 Allergy status to other antibiotic agents
CPT/HCPCS: 36415; 71020; 80048; 80053; 81001; 82550; 82553; 83036; 83880; 84484; 85025; 85610; 85730; 87040; 87086; 87502; 93005; 94640; 94760; 96365; 96375; 99285

== ENCOUNTER 2017-05-30 13:36 | Inpatient (IN) | payer MEDICARE ==
[2017-05-30] MEDS ORDERED: HYDROmorphone 1 MG/ML 1 ML SYRINGE IVP STA (13:59)
--- NOTE | 2017-05-30 15:37 | XR ---
EXAMINATION TYPE: XR knee limited RT DATE OF EXAM: 05/30/2017 CLINICAL HISTORY: pain TECHNIQUE: Three views of the right knee are obtained. COMPARISON: None. FINDINGS: There is a patellar fracture with diastases noted of 4.6 cm. Mild comminution is seen as we ll. Overlying soft tissue edema is identified. No additional fractures are evident at this time. IMPRESSION: Mildly comminuted fracture of the patella with diastases as noted.
--- NOTE | 2017-05-30 15:37 | XR ---
EXAMINATION TYPE: XR femur RT DATE OF EXAM: 05/30/2017 CLINICAL HISTORY: pain TECHNIQUE: Two views of the right femur are obtained. COMPARISON: None. FINDINGS: There is no acute fracture or dislocation seen of the femur. Patellar fracture as described on evalu ation of the knee. The hip and knee joints appear within normal limits. The overlying soft tissue ap pears unremarkable. IMPRESSION: There is no acute fracture or dislocation seen of the femur. ICD 10 NO FRACTURE, INITIAL EVALUATION
[2017-05-30 16:16] LABS: Anion Gap 9 mmol/L; Basophils % (A) 0 %; Blood Urea Nitrogen 22 mg/dL (7-17); CHCM 32.5; Calcium 9.1 mg/dL (8.4-10.2); Carbon Dioxide 29 mmol/L (22-30); Chloride 103 mmol/L (98-107); Eosinophils # (A) 0.2 k/uL (0-0.7); Eosinophils % (A) 3 %; Glucose 97 mg/dL (74-99); HCT 33.4 % (34.0-46.0); HDW 2.68; HGB 10.9 gm/dL (11.4-16.0); Luc # (Auto) 0.15; Luc % (Auto) 3; Lymphocytes # (A) 1.3 k/uL (1.0-4.8); Lymphocytes % (A) 22 %; MCH 30.2 pg (25.0-35.0); MCHC 32.6 g/dL (31.0-37.0); MCV 92.7 fL (80.0-100.0); Monocytes # (A) 0.4 k/uL (0-1.0); Monocytes % (A) 7 %; Neutrophils % (A) 66 %; Non-African American GFR(MDRD) >60 (>60 ml/min/1.73 sqM); Potassium 3.8 mmol/L (3.5-5.1); RDW 15.7 % (11.5-15.5); Sodium 141 mmol/L (137-145); WBC 6.1 k/uL (3.8-10.6); WBC (Perox) 6.24
[2017-05-30 16:17] LABS: INR 2.6 (<1.2); Partial Thromboplastin Time 27.7 sec (22.0-30.0); Prothrombin Time 24.7 sec (9.0-12.0)
--- NOTE | 2017-05-30 16:18 | ED ---
Lower Extremity Injury HPI - General Chief Complaint: Extremity Injury, Lower Stated Complaint: Fall Time Seen by Provider: 05/30/17 13:54 Source: patient, EMS Mode of arrival: EMS Limitations: no limitations - History of Present Illness Initial Comments: This 81-year-old white female presents with a complaint of a fall. This occurred shortly prior to arrival. She apparently states that her right knee gave out and she fell to the ground. She twisted her knee. She is unsure if she directly landed on her right leg. She denies any other injuries. Did not hit her head and does not have any neck pain or back pain. There is no loss of consciousness. She does present via EMS and they gave her some morphine and route. She is still complaining of pain upon arrival and requesting additional pain medications. No other complaints or modifying factors. - Related Data Home Medications Medication Instructions Recorded Confirmed ALPRAZolam [Xanax] 0.25 mg PO HS 11/30/16 05/30/17 Albuterol Sulfate [Proair Hfa] 2 puff INHALATION RT-Q6H PRN 11/30/16 05/30/17 Alendronate Sodium [Fosamax] 70 mg PO SCHMITT 11/30/16 05/30/17 Atenolol [Tenormin] 25 mg PO DAILY 11/30/16 05/30/17 Budesonide/Formoterol Fumarate 2 puff INHALATION RT-BID 11/30/16 05/30/17 [Symbicort 160-4.5 Mcg Inhaler] Citalopram Hydrobromide [CeleXA] 20 mg PO HS 11/30/16 05/30/17 Docusate [Colace] 200 mg PO HS 11/30/16 05/30/17 Famotidine [Pepcid] 20 mg PO BID 11/30/16 05/30/17 Ferrous Sulfate [Iron (65 MG 325 mg PO MOTUWETHFR 11/30/16 05/30/17 Elemental)] Furosemide [Lasix] 20 mg PO BID 11/30/16 05/30/17 HYDROcodone/APAP 10-325MG [[place] 1 tab PO Q8H PRN 11/30/16 05/30/17 10-325] Latanoprost [Xalatan 0.005%] 1 drop BOTH EYES HS 11/30/16 05/30/17 Levothyroxine Sodium [Synthroid] 100 mcg PO DAILY 11/30/16 05/30/17 Potassium Chloride ER [K-Dur 10] 10 meq PO DAILY 11/30/16 05/30/17 Simvastatin [Zocor] 40 mg PO HS 11/30/16 05/30/17 Warfarin [Coumadin] 7.5 mg PO SUTUTHSA 11/30/16 05/30/17 Warfarin [Coumadin] 10 mg PO MOWEFR 11/30/16 05/30/17 amLODIPine [Norvasc] 5 mg PO BID 11/30/16 05/30/17 fentaNYL 25MCG/HR PATCH [Duragesic 1 patch TRANSDERM Q72H 11/30/16 05/30/17 25MCG/HR] rOPINIRole HCL [Requip] 1 mg PO HS 11/30/16 05/30/17 Calcium Carbonate/Vitamin D3 1 tab PO BID 05/30/17 05/30/17 [Calcium 600-Vit D3 800 Tab] Multivitamins, Thera [Multivitamin 1 tab PO DAILY@1800 05/30/17 05/30/17 (formulary)] Vitamin E (Dl,Tocopheryl Acet) 400 unit PO DAILY@1800 05/30/17 05/30/17 [Vitamin E] Allergies Allergy/AdvReac Type Severity Reaction Status Date / Time sulfamethoxazole AdvReac Nausea & Verified 05/30/17 14:27 [From Bactrim] Vomiting trimethoprim [From Bactrim] AdvReac Nausea & Verified 05/30/17 14:27 Vomiting Review of Systems ROS Statement: Those systems with pertinent positive or pertinent negative responses have been documented in the HPI. ROS Other: All systems not noted in ROS Statement are negative. Past Medical History Past Medical History: Asthma, Cancer, CVA/TIA, GERD/Reflux, Hyperlipidemia, Hypertension, Osteoarthritis (OA), Pneumonia, Thyroid Disorder, Vascular Disorder Additional Past Medical History / Comment(s): Murmur; constipation,Colon Ca 2001 (has sx,chemo and radiation),rosecea,injur to rt hand lost most of it. rls, glaucoma,pleurisy, sinus problems,uti, urinary incont-wears a pad. past falls( broke lt hip(had sx), uses a w/c when out side the home.pne vaccine in past-not sure of the date. History of Any Multi-Drug Resistant Organisms: None Reported Past Surgical History: Bowel Resection, Orthopedic Surgery Additional Past Surgical History / Comment(s): Left hip IM Nailing; rt Hand surgery-grafting done(donor site was abd), carpal tunnel, krista cataracats, colonoscopy/polypectomy. Past Anesthesia/Blood Transfusion Reactions: No Reported Reaction Past Psychological History: No Psychological Hx Reported Smoking Status: Former smoker Past Alcohol Use History: None Reported Past Drug Use History: None Reported - Past Family History Father Family Medical History: Liver Disease Additional Family Medical History / Comment(s): etoh abuse-cirrhosis of the liver Mother Additional Family Medical History / Comment(s): brain anuerysm General Exam - General Exam Comments Initial Comments: GENERAL: The patient is well nourished and well hydrated. VITAL SIGNS: Heart rate, blood pressure, respiratory rate reviewed as recorded in nurse's notes. EYES: Pupils are round and reactive. Extraocular movements are intact. No conjunctival / lid redness or swelling. ENT: No external evidence of injury, swelling, or ecchymosis. Airway is patent. Throat is clear. NECK: Nontender. No swelling or evidence of injury. No subcutaneous emphysema. Trachea is midline. No thyroid mass. HEART: Regular rate and rhythm. Good peripheral pulses. LUNGS/CHEST: Breath sounds clear and equal bilaterally. No rales, rhonchi, or wheezes. No ecchymosis, subcutaneous emphysema, or tenderness. ABDOMEN: Abdomen soft without tenderness. No palpable masses or organomegaly. No peritoneal signs. No abdominal wall swelling or ecchymosis. EXTREMITIES: There is significant tenderness and swelling noted to the right knee with mild effusion. Normal muscle tone and function. No thoracolumbar tenderness. NEUROLOGIC: Sensation is grossly intact. Cranial nerve exam reveals face is symmetrical, tongue is midline, speech is clear. SKIN: No abrasions or ecchymosis is noted. No induration or masses noted. PSYCHIATRIC: Alert and oriented. Appropriate behavior and judgment. Limitations: no limitations Course Vital Signs 05/30/17 05/30/17 13:43 15:46 Temperature 97.4 F L 98.4 F Pulse Rate 91 74 Respiratory 20 18 Rate Blood Pressure 176/71 139/63 O2 Sat by Pulse 91 L 97 Oximetry Medical Decision Making - Medical Decision Making The patient was seen and examined. All diagnostics were reviewed. The EKG shows a normal sinus rhythm at a rate of 75 with a left bundle branch block and associated ST-T wave changes. The [place] interval is 136, QRS duration is 144, and the UTC interval is 498. An x-ray was done of the right femur in the right knee and this does show a horizontal right patella fracture with significant displacement. No other acute processes noted. Laboratory is ordered and is pending. A chest x-ray is ordered and is pending. Case is discussed with lupe , the orthopedic PA for Dr. Peña and he recommends admission to their service with internal medicine and cardiology to consult. He is placed in a right knee immobilizer and admitted for surgical intervention. Disposition Clinical Impression: Right patella fracture, Fall Disposition: ADMITTED IP TO THIS [facility] Condition: Fair Time of Disposition: 16:17 Decision Date: 05/30/17 Decision Time: 16:17
[2017-05-30] MEDS ORDERED: ONDANSETRON 4 MG/2 ML VIAL IVP PRN (16:21)
[2017-05-30] MEDS ORDERED: NALOXONE 0.4 MG/ML 1 ML VIAL IV PRN (16:21)
[2017-05-30] MEDS ORDERED: ACETAMINOPHEN TAB 325 MG TAB PO PRN (16:21)
[2017-05-30] MEDS ORDERED: ALBUTEROL NEBULIZED 2.5 MG/3 ML INHALATION PRN (16:30)
[2017-05-30] MEDS: SODIUM CHLORIDE 0.9% 1,000 ML IV SCH (17:04)
[2017-05-30] MEDS: HYDROmorphone 1 MG/ML 1 ML SYRINGE IV PRN ×2 (17:24→23:13)
[2017-05-30] MEDS: FERROUS SULFATE 325 MG TAB PO SCH (17:57)
[2017-05-30] MEDS: VITAMIN E (DL,TOCOPHERYL ACET) 400 UNIT CAP PO SCH (17:57)
[2017-05-30] MEDS: MULTIVITAMINS, THERA 1 EACH TAB PO SCH (17:57)
--- NOTE | 2017-05-30 18:39 | XR ---
EXAMINATION TYPE: XR chest 2V DATE OF EXAM: 05/30/2017 COMPARISON: 12/14/2016 HISTORY: Pain TECHNIQUE: Frontal and lateral views of the chest are obtained. FINDINGS: There is no heart failure nor confluent pneumonic infiltrate. Costophrenic angles are juno r. Bony thorax is intact. IMPRESSION: No active cardiopulmonary disease. No change. Old right rib fracture noted.
--- NOTE | 2017-05-30 19:08 | P.HPOR ---
History of Present Illness H&P Date: 05/30/17 Chief Complaint: Displaced right patellar fracture This is an 81-year-old female who was seen and examined today [facility]. Patient was brought to the emergency room after sustaining a fall in her kitchen. Patient doesn't remember the exact details of the fall but just rumors falling over and landing directly on that knee. She did not lose consciousness, she did not hit her head during the fall. She was unable to weight-bear and had extreme pain in the right knee. EMS brought the patient to the hospital, upon arrival imaging and lab tests were done. Images demonstrated a significantly displaced right patellar fracture. I was consult by the emergency room physician, and the case was discussed. I was able to review the images and discuss findings with my attending Dr. Giron, the patient was then admitted under our care for orthopedic treatment. Medicine and cardiology was consulted for clearance. Patient was seen at bedside, she appears comfortable. They are utilizing a knee immobilizer brace at this time. Patient states that she does not use any kind of aid with ambulation at home. She usually gets around rather well, and has not had a significant fall in a few years. She notes most of the pain over the anterior aspect of the knee. She is unable to raise that light up off the bed. She denies any pain involving the left lower extremity. She denies any pain in the bilateral upper extremity. She denies any new onset of cervical, thoracic or lumbar pain. She has been evaluated by Dr. Peña in the outpatient setting for right shoulder pain, but no surgical intervention is a revision done. She actually has an appointment with him in June for her right shoulder. Patient denies any current headaches, lightheadedness, chest pain, shortness of breath, fever chills, abdominal pain, lower extremity paresthesias. Review of Systems Constitutional: Reports as per HPI Past Medical History Past Medical History: Asthma, Cancer, CVA/TIA, GERD/Reflux, Hyperlipidemia, Hypertension, Osteoarthritis (OA), Pneumonia, Thyroid Disorder, Vascular Disorder Additional Past Medical History / Comment(s): Murmur; constipation,Colon Ca 2001 (has sx,chemo and radiation),rosecea,injur to rt hand lost most of it. rls, glaucoma,pleurisy, sinus problems,uti, urinary incont-wears a pad. past falls( broke lt hip(had sx), uses a w/c when out side the home.pne vaccine in past-not sure of the date. History of Any Multi-Drug Resistant Organisms: None Reported Past Surgical History: Bowel Resection, Orthopedic Surgery Additional Past Surgical History / Comment(s): Left hip IM Nailing; rt Hand surgery-grafting done(donor site was abd), carpal tunnel, krista cataracats, colonoscopy/polypectomy. Past Anesthesia/Blood Transfusion Reactions: No Reported Reaction Past Psychological History: No Psychological Hx Reported Smoking Status: Never smoker Past Alcohol Use History: None Reported Additional Past Alcohol Use History / Comment(s): started smoking 1966,quit 1986 , smkoed 1.5 ppd Past Drug Use History: None Reported - Past Family History Father Family Medical History: Liver Disease Additional Family Medical History / Comment(s): etoh abuse-cirrhosis of the liver Mother Additional Family Medical History / Comment(s): brain anuerysm Medications and Allergies Home Medications Medication Instructions Recorded Confirmed Type ALPRAZolam [Xanax] 0.25 mg PO HS 11/30/16 05/30/17 History Albuterol Sulfate [Proair Hfa] 2 puff INHALATION RT-Q6H PRN 11/30/16 05/30/17 History Alendronate Sodium [Fosamax] 70 mg PO SCHMITT 11/30/16 05/30/17 History Atenolol [Tenormin] 25 mg PO DAILY 11/30/16 05/30/17 History Budesonide/Formoterol Fumarate 2 puff INHALATION RT-BID 11/30/16 05/30/17 History [Symbicort 160-4.5 Mcg Inhaler] Citalopram Hydrobromide [CeleXA] 20 mg PO HS 11/30/16 05/30/17 History Docusate [Colace] 200 mg PO HS 11/30/16 05/30/17 History Famotidine [Pepcid] 20 mg PO BID 11/30/16 05/30/17 History Ferrous Sulfate [Iron (65 MG 325 mg PO MOTUWETHFR 11/30/16 05/30/17 History Elemental)] Furosemide [Lasix] 20 mg PO BID 11/30/16 05/30/17 History HYDROcodone/APAP 10-325MG [[place] 1 tab PO Q8H PRN 11/30/16 05/30/17 History 10-325] Latanoprost [Xalatan 0.005%] 1 drop BOTH EYES HS 11/30/16 05/30/17 History Levothyroxine Sodium [Synthroid] 100 mcg PO DAILY 11/30/16 05/30/17 History Potassium Chloride ER [K-Dur 10] 10 meq PO DAILY 11/30/16 05/30/17 History Simvastatin [Zocor] 40 mg PO HS 11/30/16 05/30/17 History Warfarin [Coumadin] 7.5 mg PO SUTUTHSA 11/30/16 05/30/17 History Warfarin [Coumadin] 10 mg PO MOWEFR 11/30/16 05/30/17 History amLODIPine [Norvasc] 5 mg PO BID 11/30/16 05/30/17 History fentaNYL 25MCG/HR PATCH [Duragesic 1 patch TRANSDERM Q72H 11/30/16 05/30/17 History 25MCG/HR] rOPINIRole HCL [Requip] 1 mg PO HS 11/30/16 05/30/17 History Calcium Carbonate/Vitamin D3 1 tab PO BID 05/30/17 05/30/17 History [Calcium 600-Vit D3 800 Tab] Multivitamins, Thera [Multivitamin 1 tab PO DAILY@1800 05/30/17 05/30/17 History (formulary)] Vitamin E (Dl,Tocopheryl Acet) 400 unit PO DAILY@1800 05/30/17 05/30/17 History [Vitamin E] Allergies Allergy/AdvReac Type Severity Reaction Status Date / Time sulfamethoxazole AdvReac Nausea & Verified 05/30/17 14:27 [From Bactrim] Vomiting trimethoprim [From Bactrim] AdvReac Nausea & Verified 05/30/17 14:27 Vomiting Physical Examination Right lower extremity: Knee immobilizer is in good position, this was unstrapped to examine the leg. Obvious soft tissue swelling present over the anterior aspect of the knee. No open lesions or sores visualized. No severe Areas of ecchymosis. Patient is unable to straight leg raise. Logroll maneuver reproduces no pain in the hip region. The calf is soft, no tenderness with palpation. Plantar flexion, dorsiflexion, EHL, FHL are intact. Her sensory exam to light touch throughout that extremity is intact. Her dorsal pedis pulses 2+. Results - Labs Labs: Abnormal Lab Results - Last 24 Hours (Table) 05/30/17 05/30/17 05/30/17 Range/Units 14:15 14:15 14:15 RBC 3.60 L (3.80-5.40) m/uL Hgb 10.9 L (11.4-16.0) gm/dL Hct 33.4 L (34.0-46.0) % RDW 15.7 H (11.5-15.5) % Plt Count 85 L (150-450) k/uL PT 24.7 H (9.0-12.0) sec INR 2.6 H (<1.2) BUN 22 H (7-17) mg/dL H & H 05/30/17 Range/Units 14:15 Hgb 10.9 L (11.4-16.0) gm/dL Hct 33.4 L (34.0-46.0) % Coagulation 05/30/17 Range/Units 14:15 INR 2.6 H (<1.2) Result Diagrams: 05/30/17 14:15 05/30/17 14:15 - Diagnostic results Knee x-ray: report reviewed, image reviewed Assessment and Plan Plan: Imaging: Multiple views of the femur, that included a pelvis x-ray along with the x-rays were reviewed. Images demonstrated a displaced horizontal type of right patellar fracture. No other acute osseous abnormalities noted. Assessment: 1. Displaced right patellar fracture 2. Status post fall from standing 3. Other medical comorbidities Plan: 1. I was able to discuss this case, including both physical exam findings and imaging studies with my attending Dr. Giron. Our plan is for surgical intervention. Patient is anticoagulated with Coumadin with an INR in the twos, we will have to postpone surgery until her INR decreases. We will hold the Coumadin at this point, likely begin subcu anticoagulation. 2. I discussed with the patient briefly the surgical aspect and postoperative management for this fracture. She will likely spend some time in a rehab facility. She will be nonweightbearing with the leg in full extension for quite some time. I explained her that we would talk more detail of the procedure as it neared. 3. Nonweightbearing right lower extremity, utilize knee immobilizer 4. Ice and elevate often 5. Medical and cardiac clearance 6. GI and DVT prophylaxis per medical recommendation, holding Coumadin at this time 7. Further recommendations to follow Time with Patient: Less than 30
[2017-05-30] MEDS: ALPRAZolam 0.25 MG TAB PO SCH (21:26)
[2017-05-30] MEDS: ATORVASTATIN 20 MG TAB PO SCH (21:26)
[2017-05-30] MEDS: FUROSEMIDE 20 MG TAB PO SCH (21:27)
[2017-05-30] MEDS: CITALOPRAM HYDROBROMIDE 20 MG TAB PO SCH (21:27)
[2017-05-30] MEDS: DOCUSATE 100 MG CAP PO SCH (21:27)
[2017-05-30] MEDS: LATANOPROST 0.005% OPHTH DROPS 2.5 ML BTL BOTH EYES SCH (21:27)
[2017-05-30] MEDS: FAMOTIDINE 20 MG TAB PO SCH (21:27)
[2017-05-30] MEDS: amLODIPine 5 MG TAB PO SCH (22:14)
[2017-05-30] MEDS: CALCIUM CARB-VIT D 500MG-200UN 1 EACH TAB PO SCH (22:14)
[2017-05-30] MEDS: SYMBICORT 160-4.5 MCG INHALER INHALATION SCH (23:57)
[2017-05-31] MEDS: HYDROcodone/APAP 10-325MG 1 EACH TAB PO PRN ×3 (01:00→21:59)
[2017-05-31] MEDS: HYDROmorphone 1 MG/ML 1 ML SYRINGE IV PRN ×2 (04:27→10:55)
[2017-05-31] MEDS: LEVOTHYROXINE 100 MCG TAB PO SCH (06:09)
[2017-05-31] MEDS: SYMBICORT 160-4.5 MCG INHALER INHALATION SCH ×2 (07:39→22:03)
[2017-05-31 07:49] LABS: INR 2.4 (<1.2)
[2017-05-31] MEDS: FAMOTIDINE 20 MG TAB PO SCH (08:16)
[2017-05-31] MEDS: amLODIPine 5 MG TAB PO SCH (08:16)
[2017-05-31] MEDS: FUROSEMIDE 20 MG TAB PO SCH (08:16)
[2017-05-31] MEDS: ATENOLOL 25 MG TAB PO SCH (08:16)
[2017-05-31] MEDS: CALCIUM CARB-VIT D 500MG-200UN 1 EACH TAB PO SCH ×2 (08:17→20:38)
[2017-05-31] MEDS ORDERED: POTASSIUM CHLORIDE ER 10 MEQ TAB.ER.PRT PO SCH (09:00)
[2017-05-31] MEDS: SODIUM CHLORIDE 0.9% 1,000 ML IV SCH (10:14)
--- NOTE | 2017-05-31 11:54 | ECHOF ---
Referral Reason:htn MEASUREMENTS -------- HEIGHT: 162.6 cm WEIGHT: 92.1 kg BP: IVSd: 1.4 cm (0.6 - 1.1) LVIDd: 4.5 cm (3.9 - 5.3) LVPWd: 1.4 cm (0.6 - 1.1) IVSs: 1.6 cm LVIDs: 3.0 cm LVPWs: 1.8 cm Ao Diam: 3.5 cm (2.0 - 3.7) AV Cusp: 1.9 cm (1.5 - 2.6) LA Diam: 3.6 cm (2.7 - 3.8) MV EXCURSION: 11.800 mm (> 18.000) MV EF SLOPE: 39 mm/s (70 - 150) EPSS: 1.4 cm MV E Brando: 0.94 m/s MV DecT: 251 ms MV A Brando: 1.54 m/s MV E/A Ratio: 0.61 RAP: 5.00 mmHg RVSP: 15.24 mmHg FINDINGS -------- Sinus rhythm with extra systolic beats. This was a technically adequate study. This was a technically difficult study with suboptimal apical views. There is moderate concentric left ventricular hypertrophy. Overall left ventricular systolic function is normal with, an EF between 55 - 60 %. The right ventricle is normal in size and function. The left atrium is normal in size. The right atrium is normal in size. Aortic valve is trileaflet and is mildly thickened. Mild mitral annular calcification present. Moderate mitral regurgitation is present. [id number] tricuspid regurgitation present. The right ventricular systolic pressure, as measured by Doppler, is 15.24mmHg. There is no pulmonic regurgitation present. The aortic root size is normal. There is no pericardial effusion. CONCLUSIONS -------- 1. Sinus rhythm with extra systolic beats. 2. [id number] tricuspid regurgitation present. 3. The right ventricular systolic pressure, as measured by Doppler, is 15.24mmHg. 4. There is no pulmonic regurgitation present. 5. The aortic root size is normal. 6. There is no pericardial effusion. 7. This was a technically adequate study. 8. This was a technically difficult study with suboptimal apical views. 9. There is moderate concentric left ventricular hypertrophy. 10. Overall left ventricular systolic function is normal with, an EF between 55 - 60 %. 11. The left atrium is normal in size. 12. Aortic valve is trileaflet and is mildly thickened. 13. Mild mitral annular calcification present. 14. Moderate mitral regurgitation is present. THEATER TECHNICIAN: Liza Stone RDCS
[2017-05-31] MEDS: HEPARIN SODIUM,PORCINE 5,000 UNIT/ML 1 ML VIAL SQ SCH ×2 (12:41→20:38)
--- NOTE | 2017-05-31 15:50 | CONS ---
Mrs. Campoverde is an 81-year-old female with known history of hypertension, hyperlipidemia who presented after her right knee gave out and she had a fractured patella. Cardiology consultation was requested for preoperative evaluation. The patient has been seen by Dr. Diego Singh most recently in July of 2015. She has a history of hypertension, hyperlipidemia, but no history of documented obstructive coronary artery disease or heart failure. Her level of activity is limited by her back discomfort. She has a history of COPD but not severe. Her breathing is stable, according to her. She has no chest pain , no dizziness, no palpitations. She has occasional peripheral edema; no clear PND, orthopnea or syncope. Her coronary risk factors are remarkable for hypertension, hyperlipidemia. She stopped smoking many years ago. Her medications at home include: 1. Coumadin. 2. Fosamax. 3. Ropinirole. 4. Amlodipine 5 mg twice a day. 5. Simvastatin 40 mg daily. 6. Atenolol 25 mg daily. 7. Citalopram. 8. Colace. 9. Pepcid. 10. Iron. 11. Lasix 20 mg twice a day. 12. Levothyroxine. 13. Potassium supplement. 14. Xanax on a p.r.n. basis. REVIEW OF SYSTEMS: RESPIRATORY SYSTEM: She has no history of recent wheezing or cough. She has a history of mild chronic obstructive lung disease, has been in the hospital in November with bronchitis. GI SYSTEM: No nausea. No vomiting. SYSTEM: No dysuria or hematuria. NERVOUS SYSTEM: She carries the diagnosis of stroke a few years ago. The details of that are not available. Patient was initiated on anticoagulation at that time. It is unclear to me if the patient had atrial fibrillation, although the EKGs available to me from this admission as well as from the admission in November show that she is in sinus mechanism with evidence of left bundle branch block. PHYSICAL EXAMINATION: She is an 81-year-old male, alert. No apparent distress. Blood pressure 137/60 with a heart rate in the 80s. HEAD: Normocephalic. EYES: Sclerae anicteric. NECK: Good carotid upstroke. No bruit. No jugular venous distention. LUNGS: Clear to auscultation. HEART: Regular rate and rhythm. S1, S2. No S3. Systolic murmur, ejection type, heard at the base; early peaking. No diastolic murmur. No rub. ABDOMEN: Soft, obese, non-tender. EXTREMITIES: No edema. A brace was noted on the right knee. Lab data revealed an INR of 2.4. BUN of 22, creatinine 0.84. Potassium 3.8. Hemoglobin 10.9. EKG revealed sinus mechanism with left bundle branch block. IMPRESSION: 1. Fall and fracture of the right patella. 2. Chronic left bundle branch block. 3. History of hypertension. 4. History of hyperlipidemia. 5. History of back discomfort. 6. History of chronic obstructive lung disease; appears to be stable. RECOMMENDATION: From the cardiac standpoint, patient has no overt signs of heart failure or acute ischemia. She is in sinus mechanism. The left bundle branch block is chronic. At this time I see no absolute contraindication for surgery. She appears to be at average risk for intervention. I will continue her beta amara as present. Will obtain an echocardiogram to evaluate her left ventricular systolic function. Her Coumadin is on hold, awaiting the return of her INR to a lower range to undergo surgery in the next 48 hours. It is still unclear to me, as noted, the reason why she is anticoagulated, and that needs to be evaluated further with Dr. Maya to see if that needs to be resumed postoperatively. Thank you for this consult. Will follow with you. HARISH
[2017-05-31] MEDS: FERROUS SULFATE 325 MG TAB PO SCH (15:54)
[2017-05-31] MEDS: MULTIVITAMINS, THERA 1 EACH TAB PO SCH (15:54)
[2017-05-31] MEDS: VITAMIN E (DL,TOCOPHERYL ACET) 400 UNIT CAP PO SCH (15:55)
--- NOTE | 2017-05-31 16:22 | P.CONS ---
History of Present Illness - Reason for Consult Preoperative clearance - History of Present Illness Patient is a pleasant 81-year-old female admitted after a mechanical fall and fracture of the right patella. Patient does not have any history of congestive heart failure. Patient is not dependent on ADLs and IADLs her activity is only limited by some back pain. Patient denied any fever, chills, nausea, vomiting. Patient denied any syncopal episode. Patient had an echocardiogram which showed normal ejection fraction. No wall motion abnormalities EKG was reviewed. Patient is on anticoagulation not sure why she was on anticoagulation. Patient denied any history of DVT she is not sure about A. fib patient is presently sinus rhythm but LVH changes. Patient's anti-coagulation is being held. Patient is scheduled for surgery day after but the we can bring his INR by tomorrow by giving vitamin K today for needed for surgery tomorrow Review of Systems REVIEW OF SYSTEMS: CONSTITUTIONAL: No fever, no malaise, no fatigue. HEENT: No recent visual problems or hearing problems. Denied any sore throat. CARDIOVASCULAR: No chest pain, orthopnea, PND, no palpitations, no syncope. PULMONARY: No shortness of breath, no cough, no hemoptysis. GASTROINTESTINAL: No diarrhea, no nausea, no vomiting, no abdominal pain. Normoactive bowel sounds. NEUROLOGICAL: No headaches, no weakness, no numbness. HEMATOLOGICAL: Denies any bleeding or petechiae. GENITOURINARY: Denies any burning micturition, frequency, or urgency. MUSCULOSKELETAL/RHEUMATOLOGICAL: Completing of pain in the right knee ENDOCRINE: Denies any polyuria or polydipsia. The rest of the 14-point review of systems is negative. Past Medical History Past Medical History: Asthma, Cancer, CVA/TIA, GERD/Reflux, Hyperlipidemia, Hypertension, Osteoarthritis (OA), Pneumonia, Thyroid Disorder, Vascular Disorder Additional Past Medical History / Comment(s): Murmur; constipation,Colon Ca 2001 (has sx,chemo and radiation),rosecea,injur to rt hand lost most of it. rls, glaucoma,pleurisy, sinus problems,uti, urinary incont-wears a pad. past falls( broke lt hip(had sx), uses a w/c when out side the home.pne vaccine in past-not sure of the date. History of Any Multi-Drug Resistant Organisms: None Reported Past Surgical History: Bowel Resection, Orthopedic Surgery Additional Past Surgical History / Comment(s): Left hip IM Nailing; rt Hand surgery-grafting done(donor site was abd), carpal tunnel, krista cataracats, colonoscopy/polypectomy. Past Anesthesia/Blood Transfusion Reactions: No Reported Reaction Past Psychological History: No Psychological Hx Reported Smoking Status: Never smoker Past Alcohol Use History: None Reported Additional Past Alcohol Use History / Comment(s): started smoking 1966,quit 1986 , smkoed 1.5 ppd Past Drug Use History: None Reported - Past Family History Father Family Medical History: Liver Disease Additional Family Medical History / Comment(s): etoh abuse-cirrhosis of the liver Mother Additional Family Medical History / Comment(s): brain anuerysm Medications and Allergies Home Medications Medication Instructions Recorded Confirmed Type ALPRAZolam [Xanax] 0.25 mg PO HS 11/30/16 05/30/17 History Albuterol Sulfate [Proair Hfa] 2 puff INHALATION RT-Q6H PRN 11/30/16 05/30/17 History Alendronate Sodium [Fosamax] 70 mg PO SCHMITT 11/30/16 05/30/17 History Atenolol [Tenormin] 25 mg PO DAILY 11/30/16 05/30/17 History Budesonide/Formoterol Fumarate 2 puff INHALATION RT-BID 11/30/16 05/30/17 History [Symbicort 160-4.5 Mcg Inhaler] Citalopram Hydrobromide [CeleXA] 20 mg PO HS 11/30/16 05/30/17 History Docusate [Colace] 200 mg PO HS 11/30/16 05/30/17 History Famotidine [Pepcid] 20 mg PO BID 11/30/16 05/30/17 History Ferrous Sulfate [Iron (65 MG 325 mg PO MOTUWETHFR 11/30/16 05/30/17 History Elemental)] Furosemide [Lasix] 20 mg PO BID 11/30/16 05/30/17 History HYDROcodone/APAP 10-325MG [Kyle 1 tab PO Q8H PRN 11/30/16 05/30/17 History 10-325] Latanoprost [Xalatan 0.005%] 1 drop BOTH EYES HS 11/30/16 05/30/17 History Levothyroxine Sodium [Synthroid] 100 mcg PO DAILY 11/30/16 05/30/17 History Potassium Chloride ER [K-Dur 10] 10 meq PO DAILY 11/30/16 05/30/17 History Simvastatin [Zocor] 40 mg PO HS 11/30/16 05/30/17 History Warfarin [Coumadin] 7.5 mg PO SUTUTHSA 11/30/16 05/30/17 History Warfarin [Coumadin] 10 mg PO MOWEFR 11/30/16 05/30/17 History amLODIPine [Norvasc] 5 mg PO BID 11/30/16 05/30/17 History fentaNYL 25MCG/HR PATCH [Duragesic 1 patch TRANSDERM Q72H 11/30/16 05/30/17 History 25MCG/HR] rOPINIRole HCL [Requip] 1 mg PO HS 11/30/16 05/30/17 History Calcium Carbonate/Vitamin D3 1 tab PO BID 05/30/17 05/30/17 History [Calcium 600-Vit D3 800 Tab] Multivitamins, Thera [Multivitamin 1 tab PO DAILY@1800 05/30/17 05/30/17 History (formulary)] Vitamin E (Dl,Tocopheryl Acet) 400 unit PO DAILY@1800 05/30/17 05/30/17 History [Vitamin E] Allergies Allergy/AdvReac Type Severity Reaction Status Date / Time sulfamethoxazole AdvReac Nausea & Verified 05/30/17 14:27 [From Bactrim] Vomiting trimethoprim [From Bactrim] AdvReac Nausea & Verified 05/30/17 14:27 Vomiting Physical Exam Vitals: Vital Signs Temp Pulse Pulse Resp BP BP Pulse Ox 05/31/17 14:37 97.8 F 80 17 120/60 93 L 05/31/17 07:00 97.8 F 89 16 137/56 05/31/17 04:00 20 05/31/17 01:53 98.3 F 89 16 134/69 95 05/30/17 20:00 97.9 F 81 16 136/65 96 05/30/17 17:25 97.9 F 81 17 141/64 93 L 05/30/17 16:37 97.9 F 81 14 156/70 97 Intake and Output 05/31/17 05/31/17 05/31/17 06:59 14:59 22:59 Intake Total 540 Balance 540 Intake: Oral 540 Other: Voiding Method Bedpan Incontinent # Voids 3 2 # Bowel Movements 0 PHYSICAL EXAMINATION: GENERAL: The patient is alert and oriented x3, not in any acute distress. Well developed, well nourished. HEENT: Pupils are round and equally reacting to light. EOMI. No scleral icterus. No conjunctival pallor. Normocephalic, atraumatic. No pharyngeal erythema. No thyromegaly. CARDIOVASCULAR: S1 and S2 present. No murmurs, rubs, or gallops. PULMONARY: Chest is clear to auscultation, no wheezing or crackles. ABDOMEN: Soft, nontender, nondistended, normoactive bowel sounds. No palpable organomegaly. MUSCULOSKELETAL: Deferred to orthopedic surgery EXTREMITIES: No cyanosis, clubbing, or pedal edema. NEUROLOGICAL: Gross neurological examination did not reveal any focal deficits. SKIN: No rashes. Results CBC & Chem 7: 05/30/17 14:15 05/30/17 14:15 Labs: Abnormal Lab Results - Last 24 Hours (Table) 05/30/17 05/30/17 05/30/17 Range/Units 14:15 14:15 14:15 RBC 3.60 L (3.80-5.40) m/uL Hgb 10.9 L (11.4-16.0) gm/dL Hct 33.4 L (34.0-46.0) % RDW 15.7 H (11.5-15.5) % Plt Count 85 L (150-450) k/uL PT 24.7 H (9.0-12.0) sec INR 2.6 H (<1.2) BUN 22 H (7-17) mg/dL 05/31/17 Range/Units 07:22 RBC (3.80-5.40) m/uL Hgb (11.4-16.0) gm/dL Hct (34.0-46.0) % RDW (11.5-15.5) % Plt Count (150-450) k/uL PT 23.0 H (9.0-12.0) sec INR 2.4 H (<1.2) BUN (7-17) mg/dL Assessment and Plan Plan: #1 preoperative clearance for right patellar fracture, surgical correction: Patient is low to intermediate risk for surgery. Risks and benefits were discussed with the patient. #2 asthma: Without any acute exacerbation. #3 gastroesophageal reflux disease #4 hyperlipidemia #6 hypertension: Hold off on amlodipine to prevent perioperative hypotension. #7 hypothyroidism #8 peripheral vascular disease #9 cerebrovascular accident without any residual weakness Not sure way. Patient is on antibiotic regulation she says that's for her previous stroke, denied any history of atrial fibrillation of DVT in the past. Patient can be given vitamin K if if required and can go to surgery tomorrow morning. But that decision will be left to orthopedic surgery
[2017-05-31] MEDS ORDERED: PHYTONADIONE ORAL 5 MG/5 ML ORAL.SYRG PO ONE (16:50)
[2017-05-31] MEDS: ATORVASTATIN 20 MG TAB PO SCH (20:37)
[2017-05-31] MEDS: ALPRAZolam 0.25 MG TAB PO SCH (20:37)
[2017-05-31] MEDS: LATANOPROST 0.005% OPHTH DROPS 2.5 ML BTL BOTH EYES SCH (20:38)
[2017-05-31] MEDS: DOCUSATE 100 MG CAP PO SCH (20:38)
[2017-05-31] MEDS: CITALOPRAM HYDROBROMIDE 20 MG TAB PO SCH (20:38)
[2017-05-31] MEDS ORDERED: FAMOTIDINE 20 MG TAB PO SCH (21:00)
[2017-06-01] MEDS: HYDROmorphone 1 MG/ML 1 ML SYRINGE IV PRN ×3 (03:26→16:54)
[2017-06-01 07:22] LABS: INR 1.6 (<1.2)
[2017-06-01 07:23] LABS: Prothrombin Time 15.5 sec (9.0-12.0)
[2017-06-01] MEDS: SYMBICORT 160-4.5 MCG INHALER INHALATION SCH ×2 (09:15→21:05)
[2017-06-01] MEDS ORDERED: PHYTONADIONE ORAL 5 MG/5 ML ORAL.SYRG PO STA (10:07)
--- NOTE | 2017-06-01 10:07 | P.PN ---
Subjective Principal diagnosis: Right patella fracture Patient is seen today resting in hospital bed, she appears comfortable. She notes discomfort in the knee when she moves it, she is utilizing a knee immobilizer brace. She denies any chest pain, shortness of breath, lightheadedness, or headaches. Objective - Vital Signs Vital signs: Vital Signs Temp 100.2 F H 06/01/17 08:23 Pulse 93 06/01/17 08:23 Resp 18 06/01/17 08:23 BP 124/70 06/01/17 08:23 Pulse Ox 93 L 06/01/17 09:15 Intake & Output 05/31/17 06/01/17 06/01/17 18:59 06:59 18:59 Intake Total 1040 720 Balance 1040 720 Intake: Intake, IV Titration 720 Amount Sodium Chloride 0.9% 1, 720 000 ml @ 60 mls/hr IV . [id number] ANGELA Rx#:[id number] Oral 1040 Other: Voiding Method Bedpan Bedpan Incontinent # Voids 2 - Exam Right lower extremity: Knee immobilizer is in good position. Exam of the knee, obvious effusion present over the right knee. No open lesions or sores. Plantar flexion, dorsiflexion, EHL, FHL remained intact. Dorsal pedis pulses 2+, sensory exam to lite touch intact. - Labs CBC & Chem 7: 05/30/17 14:15 05/30/17 14:15 Labs: Abnormal Lab Results - Last 24 Hours (Table) 06/01/17 Range/Units 06:57 PT 15.5 H (9.0-12.0) sec INR 1.6 H (<1.2) Assessment and Plan Plan: Assessment: 1. Displaced right patellar fracture 2. Status post fall from standing 3. Other medical comorbidities Plan: 1. Planning for surgery tomorrow morning. Will give one more dose of Vitamin K 10mg orally. 2. Procedure was discussed with patient at bedside, obtain consent. 3. Nonweightbearing right lower extremity, utilize knee immobilizer 4. Ice and elevate often 5. Medical and cardiac clearance 6. GI and DVT prophylaxis will hold heparin at midnight. 7. Further recommendations after surgery
[2017-06-01] MEDS: CALCIUM CARB-VIT D 500MG-200UN 1 EACH TAB PO SCH ×2 (10:44→20:38)
[2017-06-01] MEDS: HEPARIN SODIUM,PORCINE 5,000 UNIT/ML 1 ML VIAL SQ SCH ×2 (10:44→20:39)
[2017-06-01] MEDS: FAMOTIDINE 20 MG TAB PO SCH (10:45)
[2017-06-01] MEDS: LEVOTHYROXINE 100 MCG TAB PO SCH (10:46)
[2017-06-01] MEDS: ATENOLOL 25 MG TAB PO SCH (10:46)
[2017-06-01] MEDS: VITAMIN E (DL,TOCOPHERYL ACET) 400 UNIT CAP PO SCH (16:55)
[2017-06-01] MEDS: MULTIVITAMINS, THERA 1 EACH TAB PO SCH (16:56)
--- NOTE | 2017-06-01 16:56 | P.PN ---
Subjective 81-year-old female admitted after a mechanical fall and right patellar fracture. Patient's pain is fairly controlled today and the patient is going for surgery tomorrow received vitamin K today. In any nausea, vomiting, abdominal pain, fever, chills, dysuria does have pain in the right knee although controlled with present pain management. Objective - Vital Signs Vital signs: Vital Signs Temp 98.0 F 06/01/17 15:00 Pulse 79 06/01/17 15:00 Resp 16 06/01/17 15:00 BP 127/73 06/01/17 15:00 Pulse Ox 95 06/01/17 15:00 Intake & Output 05/31/17 06/01/17 06/01/17 18:59 06:59 18:59 Intake Total 1040 720 Balance 1040 720 Intake: Intake, IV Titration 720 Amount Sodium Chloride 0.9% 1, 720 000 ml @ 60 mls/hr IV . [id number] ANGELA Rx#:[id number] Oral 1040 Other: Voiding Method Bedpan Bedpan Bedpan Incontinent # Voids 2 3 - Exam PHYSICAL EXAMINATION: GENERAL: The patient is alert and oriented x3, not in any acute distress. Well developed, well nourished. HEENT: Pupils are round and equally reacting to light. EOMI. No scleral icterus. No conjunctival pallor. Normocephalic, atraumatic. No pharyngeal erythema. No thyromegaly. CARDIOVASCULAR: S1 and S2 present. No murmurs, rubs, or gallops. PULMONARY: Chest is clear to auscultation, no wheezing or crackles. ABDOMEN: Soft, nontender, nondistended, normoactive bowel sounds. No palpable organomegaly. MUSCULOSKELETAL: Deferred to orthopedic surgery EXTREMITIES: No cyanosis, clubbing, or pedal edema. NEUROLOGICAL: Gross neurological examination did not reveal any focal deficits. SKIN: No rashes. - Labs CBC & Chem 7: 05/30/17 14:15 05/30/17 14:15 Labs: Abnormal Lab Results - Last 24 Hours (Table) 06/01/17 Range/Units 06:57 PT 15.5 H (9.0-12.0) sec INR 1.6 H (<1.2) Assessment and Plan Plan: #1 preoperative clearance for right patellar fracture, surgical correction: Patient is low to intermediate risk for surgery. Risks and benefits were discussed with the patient. He is going for surgery tomorrow and receiving vitamin K today patient's INR presently is 1.6 #2 asthma: Without any acute exacerbation. #3 gastroesophageal reflux disease #4 hyperlipidemia #6 hypertension: Hold off on amlodipine to prevent perioperative hypotension. #7 hypothyroidism #8 peripheral vascular disease #9 cerebrovascular accident without any residual weakness
[2017-06-01] MEDS: CITALOPRAM HYDROBROMIDE 20 MG TAB PO SCH (20:38)
[2017-06-01] MEDS: ATORVASTATIN 20 MG TAB PO SCH (20:38)
[2017-06-01] MEDS: DOCUSATE 100 MG CAP PO SCH (20:39)
[2017-06-01] MEDS: LATANOPROST 0.005% OPHTH DROPS 2.5 ML BTL BOTH EYES SCH (20:39)
[2017-06-01] MEDS: ALPRAZolam 0.25 MG TAB PO SCH (20:40)
[2017-06-02] MEDS: HYDROmorphone 1 MG/ML 1 ML SYRINGE IV PRN ×3 (04:04→21:17)
[2017-06-02] MEDS: LEVOTHYROXINE 100 MCG TAB PO SCH (06:11)
[2017-06-02] MEDS: SYMBICORT 160-4.5 MCG INHALER INHALATION SCH ×2 (06:48→20:05)
[2017-06-02 08:22] LABS: INR 1.2 (<1.2); Prothrombin Time 11.7 sec (9.0-12.0)
[2017-06-02] MEDS: CALCIUM CARB-VIT D 500MG-200UN 1 EACH TAB PO SCH ×2 (08:27→21:18)
[2017-06-02] MEDS: ATENOLOL 25 MG TAB PO SCH (08:27)
[2017-06-02] MEDS: FAMOTIDINE 20 MG TAB PO SCH (08:28)
[2017-06-02] MEDS ORDERED: fentaNYL (PF) 50 MCG/ML 2 ML AMP ONE (10:34)
[2017-06-02] MEDS ORDERED: LIDOCAINE 1% INJ 10MG/ML (20 ML MDV) ONE (10:34)
[2017-06-02] MEDS ORDERED: SUCCINYLCHOLINE CHLORIDE 100 MG/5 ML SYR IV ONE (10:34)
[2017-06-02] MEDS ORDERED: LACTATED RINGERS 1,000 ML IV ONE (10:34)
[2017-06-02] MEDS ORDERED: PROPOFOL 10 MG/ML 20 ML VIAL IV ONE (10:34)
[2017-06-02] MEDS ORDERED: SODIUM CHLORIDE 0.9% 50 ML with ceFAZolin 2,000 MG IV ONE ×2 (10:34)
--- NOTE | 2017-06-02 11:43 | XR ---
EXAMINATION TYPE: XR knee limited RT DATE OF EXAM: 06/02/2017 CLINICAL HISTORY: Postoperative evaluation orif rt patella fx, 6 sec fl time, 2 images scanned
--- NOTE | 2017-06-02 11:55 | P.OP ---
Date of Procedure: 06/02/17 Preoperative Diagnosis: Displaced right patella fracture Postoperative Diagnosis: Same Procedure(s) Performed: Open reduction and internal fixation right patella fracture Implants: Mando 4.5 mm x 42 mm, 44 mm cannulated screws Anesthesia: MISAEL Surgeon: Alex Giron Shipper #1: Wu Gerardo Estimated Blood Loss (ml): 50 Pathology: none sent Condition: stable Disposition: PACU Indications for Procedure: The patient's an 81-year-old female presents after falling injuring her right knee. Upon evaluation she was noted significantly displaced right patella fracture. A discussion of the risks and benefits of operative intervention as made with the patient. She opted to proceed with surgery. Operative risks to include infection, neurovascular injury, development of blood clots, possible development nonunion, possible development of malunion and need for subsequent procedures was discussed. Informed consent was obtained. Operative Findings: As below Description of Procedure: The patient was brought to the operating room, and after induction of general anesthesia the right lower extremity was prepped and draped in normal fashion. The tourniquet was inflated to 270 mmHg. An incision was then made centered over the patella extending approximately through 3 finger breaths above and below the patella. The skin was incised sharply. Subcutaneous tissues were divided sharply. The patella fracture was easily identified. The clot and debris was removed. Reduction was then obtained with a [id number] clamp. Guidewires were placed inferior to superior. This was done with the aid of fluoroscopy. 4.5 mm x 42 mm and 4.5 mm x 44 mm cannulated screws were then placed. This compressed the fracture site. A 16-gauge wire was inserted through the cannulated wires in a [id number] construct made. The wires were appropriately tensioned. Final fluoroscopic views showed adequate reduction of this complex fracture and placement of the implant. The retinacular tears were repaired with 0 Vicryl sutures. The subcutaneous tissues reapproximated interrupted 2-0 Vicryl sutures. The skin was reapproximated with judith. A sterile dressing was applied as well as a knee immobilizer. The tourniquet was deflated less than 45 minutes total tourniquet time. The patient was awoken from general anesthesia and transferred to recovery room in good condition. Blood loss was estimated at 50 mL. No complications were incurred. Sponge and needle counts were correct at the end the case.
[2017-06-02] MEDS ORDERED: ALBUTEROL NEBULIZED 2.5 MG/3 ML INHALATION ONE (12:05)
[2017-06-02] MEDS ORDERED: LABETALOL 5 MG/ML VIAL MDV IVP ONE ×3 (12:05→13:40)
[2017-06-02] MEDS ORDERED: HYDROmorphone 1 MG/ML 1 ML SYRINGE IVP ONE ×2 (12:15→13:10)
[2017-06-02] MEDS ORDERED: hydrALAZINE HCL 20 MG/ML 1 ML VIAL IVP ONE (12:50)
[2017-06-02] MEDS ORDERED: methylPREDNISolone SOD SUCCI 40 MG/ML 1 ML VIAL IV STA (14:49)
--- NOTE | 2017-06-02 16:06 | P.PN ---
Subjective 81-year-old female admitted after a mechanical fall and right patellar fracture. Patient's pain is fairly controlled today and the patient is going for surgery tomorrow received vitamin K today. 06/02/2017 I saw her postoperatively, patient has expiratory wheezing and also rhonchus breath sounds are pending a chest x-ray. We will give her a dose of prednisone oral. In any nausea, vomiting, abdominal pain, fever, chills, dysuria does have pain in the right knee although controlled with present pain management. Objective - Vital Signs Vital signs: Vital Signs Temp 98.3 F 06/02/17 11:54 Pulse 87 06/02/17 13:45 Resp 16 06/02/17 13:45 BP 145/64 06/02/17 13:45 Pulse Ox 92 L 06/02/17 13:45 Intake & Output 06/01/17 06/02/17 06/02/17 18:59 06:59 18:59 Intake Total 560 750 Output Total 900 50 Balance -340 700 Intake: IV 550 Oral 560 200 Output: Urine 900 Estimated Blood Loss 50 Other: Voiding Method Bedpan Bedpan Bedpan # Voids 3 3 - Exam PHYSICAL EXAMINATION: GENERAL: The patient is alert and oriented x3, not in any acute distress. Well developed, well nourished. HEENT: Pupils are round and equally reacting to light. EOMI. No scleral icterus. No conjunctival pallor. Normocephalic, atraumatic. No pharyngeal erythema. No thyromegaly. CARDIOVASCULAR: S1 and S2 present. No murmurs, rubs, or gallops. PULMONARY: Rhonchorous breath sounds along with expiratory wheezing ABDOMEN: Soft, nontender, nondistended, normoactive bowel sounds. No palpable organomegaly. MUSCULOSKELETAL: Deferred to orthopedic surgery EXTREMITIES: No cyanosis, clubbing, or pedal edema. NEUROLOGICAL: Gross neurological examination did not reveal any focal deficits. SKIN: No rashes. - Labs CBC & Chem 7: 05/30/17 14:15 05/30/17 14:15 Labs: Abnormal Lab Results - Last 24 Hours (Table) 06/02/17 Range/Units 07:33 INR 1.2 H (<1.2) Assessment and Plan Plan: #1 preoperative clearance for right patellar fracture, surgical correction: Patient is low to intermediate risk for surgery. Risks and benefits were discussed with the patient. Patient is presently postoperative day 0 #2 asthma: Age and has acute exacerbation, patient will be given 1 dose of oral steroid chest x-ray will be obtained. #3 gastroesophageal reflux disease #4 hyperlipidemia #6 hypertension: Hold off on amlodipine to prevent perioperative hypotension. #7 hypothyroidism #8 peripheral vascular disease #9 cerebrovascular accident without any residual weakness
[2017-06-02] MEDS ORDERED: NON-FORMULARY DRUG (Alendronate Sodium [Fosamax] 70 MG) PO SCH (16:30)
[2017-06-02] MEDS: ATORVASTATIN 20 MG TAB PO SCH (21:17)
[2017-06-02] MEDS: ALPRAZolam 0.25 MG TAB PO SCH (21:17)
[2017-06-02] MEDS: DOCUSATE 100 MG CAP PO SCH (21:18)
[2017-06-02] MEDS: CITALOPRAM HYDROBROMIDE 20 MG TAB PO SCH (21:18)
[2017-06-02] MEDS: LATANOPROST 0.005% OPHTH DROPS 2.5 ML BTL BOTH EYES SCH (21:18)
[2017-06-02] MEDS: HEPARIN SODIUM,PORCINE 5,000 UNIT/ML 1 ML VIAL SQ SCH (22:21)
[2017-06-03] MEDS: HYDROcodone/APAP 10-325MG 1 EACH TAB PO PRN ×2 (02:42→14:28)
[2017-06-03] MEDS: LEVOTHYROXINE 100 MCG TAB PO SCH (06:04)
--- NOTE | 2017-06-03 06:58 | FL ---
FLUOROSCOPY 6 seconds of fluoroscopy time were utilized during internal fixation of the right patella. 2 images d ocument the procedure.
[2017-06-03] MEDS: VITAMIN E (DL,TOCOPHERYL ACET) 400 UNIT CAP PO SCH ×2 (07:06→17:07)
[2017-06-03] MEDS: MULTIVITAMINS, THERA 1 EACH TAB PO SCH ×2 (07:06→17:07)
[2017-06-03] MEDS: SYMBICORT 160-4.5 MCG INHALER INHALATION SCH ×2 (08:00→20:30)
[2017-06-03 08:19] LABS: Anion Gap 9 mmol/L; Blood Urea Nitrogen 15 mg/dL (7-17); Calcium 8.8 mg/dL (8.4-10.2); Carbon Dioxide 25 mmol/L (22-30); Chloride 106 mmol/L (98-107); Glucose 141 mg/dL (74-99); Non-African American GFR(MDRD) >60 (>60 ml/min/1.73 sqM); Potassium 4.5 mmol/L (3.5-5.1); Sodium 140 mmol/L (137-145)
[2017-06-03 08:20] LABS: INR 1.2 (<1.2); Prothrombin Time 11.5 sec (9.0-12.0)
[2017-06-03 08:28] LABS: CHCM 30.4; HCT 29.6 % (34.0-46.0); HDW 2.64; Hypochromasia Moderate; MCH 30.2 pg (25.0-35.0); MCHC 31.5 g/dL (31.0-37.0); MCV 95.9 fL (80.0-100.0); Mean Platelet Volume 9.9; RBC 3.09 m/uL (3.80-5.40); RDW 15.4 % (11.5-15.5); WBC 11.6 k/uL (3.8-10.6)
[2017-06-03 08:31] LABS: HGB 9.3 gm/dL (11.4-16.0)
[2017-06-03] MEDS: FAMOTIDINE 20 MG TAB PO SCH ×2 (08:53→20:35)
[2017-06-03] MEDS: CALCIUM CARB-VIT D 500MG-200UN 1 EACH TAB PO SCH ×2 (08:53→20:31)
[2017-06-03] MEDS: HEPARIN SODIUM,PORCINE 5,000 UNIT/ML 1 ML VIAL SQ SCH ×2 (08:53→20:32)
[2017-06-03] MEDS: ATENOLOL 25 MG TAB PO SCH (08:53)
[2017-06-03] MEDS: KETOROLAC 30 MG/ML 1 ML VIAL IVP PRN ×2 (09:27→19:12)
--- NOTE | 2017-06-03 11:40 | P.PN ---
Subjective 81-year-old female admitted after a mechanical fall and right patellar fracture. Patient's pain is fairly controlled today and the patient is going for surgery tomorrow received vitamin K today. 06/02/2017 I saw her postoperatively, patient has expiratory wheezing and also rhonchus breath sounds are pending a chest x-ray. We will give her a dose of prednisone oral. In any nausea, vomiting, abdominal pain, fever, chills, dysuria does have pain in the right knee although controlled with present pain management. 06/03/2017 Patient looks much better no overnight events and patient respiratory status improved patient did pass gas patient is okay to discharge from my perspective whenever she is ready from surgical perspective to be discharged to subacute rehabilitation I did do the medication reconciliation. Objective - Vital Signs Vital signs: Vital Signs Temp 97.2 F L 06/03/17 07:00 Pulse 97 06/03/17 07:00 Resp 16 06/03/17 07:00 BP 135/61 06/03/17 07:00 Pulse Ox 95 06/03/17 08:01 Intake & Output 06/02/17 06/03/17 06/03/17 18:59 06:59 18:59 Intake Total 750 240 Output Total 350 1600 Balance 400 -1360 Weight 92.079 kg Intake: IV 550 Oral 200 240 Output: Urine 300 1600 Estimated Blood Loss 50 Other: Voiding Method Bedpan Bedpan Bedpan # Voids 3 1 # Bowel Movements 0 - Exam PHYSICAL EXAMINATION: GENERAL: The patient is alert and oriented x3, not in any acute distress. Well developed, well nourished. HEENT: Pupils are round and equally reacting to light. EOMI. No scleral icterus. No conjunctival pallor. Normocephalic, atraumatic. No pharyngeal erythema. No thyromegaly. CARDIOVASCULAR: S1 and S2 present. No murmurs, rubs, or gallops. PULMONARY: Fairly good air entry into bilateral lung dukes, wheezing significantly improved ABDOMEN: Soft, nontender, nondistended, normoactive bowel sounds. No palpable organomegaly. MUSCULOSKELETAL: Deferred to orthopedic surgery EXTREMITIES: No cyanosis, clubbing, or pedal edema. NEUROLOGICAL: Gross neurological examination did not reveal any focal deficits. SKIN: No rashes. - Labs CBC & Chem 7: 06/03/17 07:10 06/03/17 07:10 Labs: Abnormal Lab Results - Last 24 Hours (Table) 06/03/17 06/03/17 06/03/17 Range/Units 07:10 07:10 07:10 WBC 11.6 H (3.8-10.6) k/uL RBC 3.09 L (3.80-5.40) m/uL Hgb 9.3 L D (11.4-16.0) gm/dL Hct 29.6 L (34.0-46.0) % Plt Count 79 L (150-450) k/uL INR 1.2 H (<1.2) Glucose 141 H (74-99) mg/dL Assessment and Plan Plan: #1 preoperative clearance for right patellar fracture, surgical correction: Patient is low to intermediate risk for surgery. Risks and benefits were discussed with the patient. Patient is presently postoperative day 0 #2 asthma: has acute exacerbation, improved wheezing with one dose of steroid and patient is okay to discharged on inhalational steroid. #3 gastroesophageal reflux disease #4 hyperlipidemia #6 hypertension: #7 hypothyroidism #8 peripheral vascular disease #9 cerebrovascular accident without any residual weakness
[2017-06-03 13:54] VITALS: BMI 34.8
--- NOTE | 2017-06-03 14:05 | P.PN ---
Progress Note - Text INTERVAL HISTORY: The patient is a 81-year-old female with known history of hypertension and hyperlipidemia presented status post fall with a fractured right patella. She underwent surgery yesterday 06/[address] Giron. Upon exam today she is seen sitting up in the chair. She denies chest pain, shortness of breath, dizziness, nausea, palpitations or vomiting. She complains only of minimal pain to the right knee. PHYSICAL EXAMINATION: Blood pressure 135/61, heart rate 97, respirations 16, temp 97.2, 92 % on 2 L nasal cannula. HEART: S1, S2 normal. Systolic murmur at the base, no diastolic murmur, no rub. Regular rate and rhythm. LUNGS: Clear to auscultation. NECK: Supple. ABDOMEN: Soft, non-tender, positive bowel sounds. EXTREMITIES: 2+ peripheral pulses, no edema, brace to the right knee LAB DATA: EKG normal sinus mechanism with left bundle-branch block, hemoglobin 9.3, potassium 4.5, BUN 15, creatinine 0.74, INR 1.2. FINAL IMPRESSION: 1. Fall and fracture of the right patella. 2. Chronic left bundle branch plaque. 3. Essential hypertension. 4. COPD. PLAN: From a cardiac standpoint the patient is stable. Continue with current regimen of antihypertensives. She should follow-up in the office with Dr. Baxter as needed.
--- NOTE | 2017-06-03 15:45 | P.PN ---
Subjective Principal diagnosis: Right patella fracture Patient is seen today resting in hospital bed, she appears comfortable. She denies any chest pain, shortness of breath, lightheadedness, or headaches. Objective - Vital Signs Vital signs: Vital Signs Temp 99.2 F 06/03/17 14:22 Pulse 96 06/03/17 14:22 Resp 18 06/03/17 14:22 BP 193/78 06/03/17 14:22 Pulse Ox 94 L 06/03/17 14:22 Intake & Output 06/02/17 06/03/17 06/03/17 18:59 06:59 18:59 Intake Total 750 240 480 Output Total 350 1600 Balance 400 -1360 480 Weight 92.079 kg 92.079 kg Intake: IV 550 Oral 200 240 480 Output: Urine 300 1600 Estimated Blood Loss 50 Other: Voiding Method Bedpan Bedpan Bedpan # Voids 3 1 1 # Bowel Movements 0 - Exam Right lower extremity: Knee immobilizer is in good position. Incision is clean, dry and intact, judith are in good position. Plantar flexion, dorsiflexion, EHL, FHL remained intact. Dorsal pedis pulses 2+, sensory exam to lite touch intact. - Labs CBC & Chem 7: 06/03/17 07:10 06/03/17 07:10 Labs: Abnormal Lab Results - Last 24 Hours (Table) 06/03/17 06/03/17 06/03/17 Range/Units 07:10 07:10 07:10 WBC 11.6 H (3.8-10.6) k/uL RBC 3.09 L (3.80-5.40) m/uL Hgb 9.3 L D (11.4-16.0) gm/dL Hct 29.6 L (34.0-46.0) % Plt Count 79 L (150-450) k/uL INR 1.2 H (<1.2) Glucose 141 H (74-99) mg/dL Assessment and Plan Plan: Assessment: 1. Postop day #1 status post ORIF right patellar fracture Plan: 1. Pain control, continue supportive oral medication 2. Nonweightbearing right lower extremity, utilize knee immobilizer 3. Ice and elevate 4. GI and DVT prophylaxis, continue current regimen 5. Other medical liaison recommendations 6. Discharge planning: Patient will be likely discharged to rehab tomorrow Time with Patient: Less than 30
[2017-06-03] MEDS: FERROUS SULFATE 325 MG TAB PO SCH (17:07)
[2017-06-03] MEDS ORDERED: WARFARIN 5 MG TAB PO ONE (18:00)
[2017-06-03] MEDS: ALPRAZolam 0.25 MG TAB PO SCH (20:30)
[2017-06-03] MEDS: ATORVASTATIN 20 MG TAB PO SCH (20:31)
[2017-06-03] MEDS: DOCUSATE 100 MG CAP PO SCH (20:31)
[2017-06-03] MEDS: CITALOPRAM HYDROBROMIDE 20 MG TAB PO SCH (20:31)
[2017-06-03] MEDS: LATANOPROST 0.005% OPHTH DROPS 2.5 ML BTL BOTH EYES SCH (20:32)
[2017-06-04] MEDS: HYDROcodone/APAP 10-325MG 1 EACH TAB PO PRN ×2 (03:09→16:47)
[2017-06-04] MEDS: LEVOTHYROXINE 100 MCG TAB PO SCH (05:54)
[2017-06-04 07:41] LABS: INR 1.1 (<1.2); Prothrombin Time 11.5 sec (9.0-12.0)
[2017-06-04] MEDS: SYMBICORT 160-4.5 MCG INHALER INHALATION SCH ×2 (08:06→20:23)
[2017-06-04] MEDS: ATENOLOL 25 MG TAB PO SCH (08:45)
[2017-06-04] MEDS: CALCIUM CARB-VIT D 500MG-200UN 1 EACH TAB PO SCH ×2 (08:45→21:01)
[2017-06-04] MEDS: FAMOTIDINE 20 MG TAB PO SCH ×2 (08:46→21:02)
[2017-06-04] MEDS: HEPARIN SODIUM,PORCINE 5,000 UNIT/ML 1 ML VIAL SQ SCH ×2 (08:46→21:02)
--- NOTE | 2017-06-04 10:32 | XR ---
EXAMINATION TYPE: XR chest 1V portable DATE OF EXAM: 06/04/2017 Comparison: 05/30/2017 Clinical History: 81-year-old female with tachypnea Findings: The heart is mildly enlarged. Interstitial and vascular prominence, increased from prior. No signific ant pleural effusion. Possible vague areas of nodularity left upper lobe and left base may represent summation shadow as these were not seen previously. Short interval follow-up recommended. Impression: 1. Correlate to exclude mild CHF. 2. Vague areas of possible nodularity versus summation artifact on the left. Recommend 4-6 week follo w-up exam to reassess.
[2017-06-04] MEDS: FUROSEMIDE 10 MG/ML 2 ML VIAL IV SCH ×2 (11:23→21:02)
--- NOTE | 2017-06-04 13:04 | P.PN ---
Subjective Principal diagnosis: Right patella fracture Patient is seen today resting in hospital bed, she appears comfortable. She denies any chest pain, shortness of breath, lightheadedness, or headaches. Objective - Vital Signs Vital signs: Vital Signs Temp 97.3 F L 06/04/17 07:00 Pulse 81 06/04/17 07:00 Resp 16 06/04/17 07:00 BP 136/62 06/04/17 07:00 Pulse Ox 94 L 06/04/17 08:11 Intake & Output 06/03/17 06/04/17 06/04/17 18:59 06:59 18:59 Intake Total 840 480 Output Total 1200 Balance 840 -1200 480 Weight 92.079 kg Intake: Oral 840 480 Output: Urine 1200 Other: Voiding Method Bedpan Bedpan Bedpan # Voids 1 1 - Exam Right lower extremity: Knee immobilizer is in good position. Incision is clean, dry and intact, judith are in good position. Plantar flexion, dorsiflexion, EHL, FHL remained intact. Dorsal pedis pulses 2+, sensory exam to lite touch intact. - Labs CBC & Chem 7: 06/03/17 07:10 06/03/17 07:10 Assessment and Plan Plan: Assessment: 1. Postop day #2 status post ORIF right patellar fracture Plan: 1. Pain control, continue supportive oral medication 2. Nonweightbearing right lower extremity, utilize knee immobilizer 3. Ice and elevate 4. GI and DVT prophylaxis, continue current regimen 5. Other medical planner recommendations 6. Discharge planning: Patient will be dc to rehab today Time with Patient: Less than 30
--- NOTE | 2017-06-04 13:08 | P.PN ---
Progress Note - Text INTERVAL HISTORY: The patient is a 81-year-old female with known history of hypertension and hyperlipidemia. She is postoperative day #2 for ORIF right patella. Upon exam today she is seen resting in bed. She complains of increased shortness of breath with cough. She denies chest pain, dizziness, palpitations or vomiting. She appears in mild respiratory distress. Oxygen was increased to 3 L for comfort and chest x-ray was ordered. PHYSICAL EXAMINATION: Blood pressure 136/63-year-old, heart rate 81, respirations 22, temp 97.3, 96 % on 3 L nasal cannula. HEART: S1, S2 normal. Systolic murmur at the base, no gallop. Regular rate and rhythm. LUNGS: Rales bilateral bases, worse on the right. NECK: Supple. ABDOMEN: Soft, non-tender, positive bowel sounds. EXTREMITIES: 2+ peripheral pulses, no edema, brace to the right knee. LAB DATA: Hemoglobin 9.3, potassium 4.5, BUN 15 creatinine 0.74 INR 1.2, repeat EKG ordered. FINAL IMPRESSION: 1. Mechanical fall and fracture of right patella. 2. Chronic left bundle branch block. 3. Essential hypertension. 4. COPD. 5. Congestive heart failure. 6. Left ventricular hypertrophy secondary to hypertension PLAN: Chest x-ray obtained this morning indicates mild CHF, Lasix was added to medication regimen. Echocardiogram shows maintained left ventricular function with an EF of 55-60%, with moderate concentric left ventricular hypertrophy secondary to hypertension. We will place the patient on continuous cardiac monitoring. Encourage incentive spirometry use. We will continue to follow this patient closely. Nurse Practitioner note has been reviewed, I agree with a documented findings and plan of care. Patient was seen and examined.
--- NOTE | 2017-06-04 13:16 | P.DS ---
Providers Date of admission: 05/30/17 16:21 Expected date of discharge: 06/04/17 Attending physician: Alex Giron Consults: 05/30/17 16:22 Consult Physician Urgent Consulting Provider: Stephy Mora Consult Reason/Comments: Medical management/clearance Do you want consulting provider notified?: Yes 05/30/17 16:23 Consult Physician Urgent Consulting Provider: Marianela Ohara Consult Reason/Comments: Cardiac clearance Do you want consulting provider notified?: Yes Primary care physician: Doe Maya [facility] Course: Date of admission: 05/30/2017 Date of discharge: 06/04/2017 Admission diagnosis: Displaced right patellar fracture Discharge diagnosis: Status post ORIF right patellar fracture Attending physician: Dr. Giron Surgical procedures: ORIF right patellar fracture Brief history: Patient is a 81-year-old female who presented to [facility] on 05/30/2017 for evaluation after a fall at home. She was diagnosed with a displaced right patellar fracture, she was admitted under orthopedic care for surgical intervention. Proper clearances were achieved before surgery. She was scheduled for surgery on 06/02/2015. Hospital course: Details of patient's surgery can be found in operative report. Patient tolerated the procedure well and was subsequently transported to orthopedic floor. Patient's orthopeidc and medical care was provided daily. Patient had daily laboratory tests performed for evaluation of overall blood counts. Patient had daily physical therapy to include strengthening range of motion as well as education with walker ambulation. Patient was treated with subcu medication and for their postoperative DVT prophylaxis during their inpatient stay. Patient was noted to have a relatively uneventful postoperative course. Patient reported satisfactory pain control with oral pain medications by postoperative day 0. Patient showed satisfactory progress with physical therapy. Patient moved steadily through the program and had no difficulty meeting the goals by postoperative day 2. Given patient's otherwise satisfactory course and having met physical therapy goals, plan is to discharge patient rehab on postoperative day 2. Discharge condition/disposition: Patient will be discharged rehab in stable condition. Discharge medications: Instructions are given on resumption of patient's normal daily medications per primary care recommendation. Discharge instructions: 1. Wound care and infection precautions, [keep incision dry and covered while showering], no lotions, creams, moisturizers. No soaking, tubs, pools, hottubs. Do not scrub over the incision. 2. Nonweightbearing right lower extremity 3. Ice and elevate when necessary. Do not exceed 20 minutes per hour with ice pack. 4. Utilize compression sleeve until seen at first follow up appointment. 5. Visiting nursing care. 6. Home physical therapy. 7. Pain meds and anticoagulants per prescription. 8. Pain medication has potential to cause constipation. Increase oral fluid and fiber intake. Contact primary care provider if you have not had a bowel movement within 48 hours after discharge 9. No anti-inflammatory medication until discussed at first post operative visit, this including Motrin, Aleve, Mobic, Diclofenac. 10. Follow up in office at 2 weeks postop with Raimundo Gerardo PA-C 11. Follow up with your primary care doctor 7-10 days after discharge. 12. Contact [facility] with any questions, . Procedures: ORIF right patellar fracture Patient Condition at Discharge: Fair Plan - Discharge Summary New Discharge Prescriptions: New Hydrocodone/Acetaminophen [Kelly 10-325] 1 tab PO Q6H PRN #60 tab PRN Reason: Pain fentaNYL 25MCG/HR PATCH [Duragesic 25MCG/HR] 25 mcg TRANSDERM Q72H #30 patch Continue Levothyroxine Sodium [Synthroid] 100 mcg PO DAILY Latanoprost [Xalatan 0.005%] 1 drop BOTH EYES HS Furosemide [Lasix] 20 mg PO BID amLODIPine [Norvasc] 5 mg PO BID Ferrous Sulfate [Iron (65 MG Elemental)] 325 mg PO MOTUWETHFR Docusate [Colace] 200 mg PO HS rOPINIRole HCL [Requip] 1 mg PO HS Simvastatin [Zocor] 40 mg PO HS Budesonide/Formoterol Fumarate [Symbicort 160-4.5 Mcg Inhaler] 2 puff INHALATION RT-BID Alendronate Sodium [Fosamax] 70 mg PO SCHMITT Potassium Chloride ER [K-Dur 10] 10 meq PO DAILY Famotidine [Pepcid] 20 mg PO BID Atenolol [Tenormin] 25 mg PO DAILY Albuterol Sulfate [Proair Hfa] 2 puff INHALATION RT-Q6H PRN PRN Reason: Shortness Of Breath Warfarin [Coumadin] 10 mg PO MOWEFR Warfarin [Coumadin] 7.5 mg PO SUTUTHSA Citalopram Hydrobromide [CeleXA] 20 mg PO HS Calcium Carbonate/Vitamin D3 [Calcium 600-Vit D3 800 Tab] 1 tab PO BID Multivitamins, Thera [Multivitamin (formulary)] 1 tab PO DAILY@1800 Vitamin E (Dl,Tocopheryl Acet) [Vitamin E] 400 unit PO DAILY@1800 Discontinued ALPRAZolam [Xanax] 0.25 mg PO HS Discharge Medication List Albuterol Sulfate [Proair Hfa] 2 puff INHALATION RT-Q6H PRN 11/30/16 [History] Alendronate Sodium [Fosamax] 70 mg PO SCHMITT 11/30/16 [History] Atenolol [Tenormin] 25 mg PO DAILY 11/30/16 [History] Budesonide/Formoterol Fumarate [Symbicort 160-4.5 Mcg Inhaler] 2 puff INHALATION RT-BID 11/30/16 [History] Citalopram Hydrobromide [CeleXA] 20 mg PO HS 11/30/16 [History] Docusate [Colace] 200 mg PO HS 11/30/16 [History] Famotidine [Pepcid] 20 mg PO BID 11/30/16 [History] Ferrous Sulfate [Iron (65 MG Elemental)] 325 mg PO MOTUWETHFR 11/30/16 [History] Furosemide [Lasix] 20 mg PO BID 11/30/16 [History] Latanoprost [Xalatan 0.005%] 1 drop BOTH EYES HS 11/30/16 [History] Levothyroxine Sodium [Synthroid] 100 mcg PO DAILY 11/30/16 [History] Potassium Chloride ER [K-Dur 10] 10 meq PO DAILY 11/30/16 [History] Simvastatin [Zocor] 40 mg PO HS 11/30/16 [History] Warfarin [Coumadin] 7.5 mg PO SUTUTHSA 11/30/16 [History] Warfarin [Coumadin] 10 mg PO MOWEFR 11/30/16 [History] amLODIPine [Norvasc] 5 mg PO BID 11/30/16 [History] rOPINIRole HCL [Requip] 1 mg PO HS 11/30/16 [History] Calcium Carbonate/Vitamin D3 [Calcium 600-Vit D3 800 Tab] 1 tab PO BID 05/30/17 [History] Multivitamins, Thera [Multivitamin (formulary)] 1 tab PO DAILY@1800 05/30/17 [ History] Vitamin E (Dl,Tocopheryl Acet) [Vitamin E] 400 unit PO DAILY@1800 05/30/17 [ History] Hydrocodone/Acetaminophen [Kelly 10-325] 1 tab PO Q6H PRN #60 tab 06/04/17 [Rx] fentaNYL 25MCG/HR PATCH [Duragesic 25MCG/HR] 25 mcg TRANSDERM Q72H #30 patch [Rx] Follow up Appointment(s)/Referral(s): Wu Gerardo PAC [PHYSICIAN [employer] SERVICE SUPERVISOR] - 1 Week Activity/Diet/Wound Care/Special Instructions: Orthopedic Discharge Instructions: 1. Wound care and infection precautions, [keep incision dry and covered while showering], no lotions, creams, moisturizers. No soaking, pools, hot tubs. Do not scrub over incision. 2. Nonweightbearing right lower extremity 3. Ice and elevate when necessary. Do not exceed 20 minutes per hour with ice pack. 4. Utilize compression sleeve until seen at first follow up appointment. 5. Visiting nursing care. 6. Home physical therapy. 7. Pain meds and anticoagulants per prescription. 8. Pain medication has potential to cause constipation. Increase oral fluid and fiber intake. Contact primary care provider if you have not had a bowel movement within 48 hours after discharge. 9. No anti-inflammatory medication until discussed at first post operative visit, this including Motrin, Aleve, Mobic, Diclofenac. 10. Follow up in office at 2 weeks postop with Raimundo Gerardo PA-C 11. Follow up with your primary care doctor 7-10 days after discharge. 12. Contact [facility] with any questions, . Brace instructions: Utilize knee immobilizer at all times Please protect the skin at the proximal end of the brace, due to skin irritation Discharge Disposition: TRANSFER TO SNF/ECF
--- NOTE | 2017-06-04 14:18 | P.PN ---
Subjective 81-year-old female admitted after a mechanical fall and right patellar fracture. Patient's pain is fairly controlled today and the patient is going for surgery tomorrow received vitamin K today. 06/02/2017 I saw her postoperatively, patient has expiratory wheezing and also rhonchus breath sounds are pending a chest x-ray. We will give her a dose of prednisone oral. In any nausea, vomiting, abdominal pain, fever, chills, dysuria does have pain in the right knee although controlled with present pain management. 06/03/2017 Patient looks much better no overnight events and patient respiratory status improved patient did pass gas patient is okay to discharge from my perspective whenever she is ready from surgical perspective to be discharged to subacute rehabilitation I did do the medication reconciliation. 06/04/2017 Patient is being discharged today patient appears to have some pulmonary edema because of which patient was given IV Lasix. If cleared by cardiology patient can be discharged. Patient probably has chronic diastolic dysfunction with acute exacerbation. Objective - Vital Signs Vital signs: Vital Signs Temp 97.3 F L 06/04/17 07:00 Pulse 81 06/04/17 07:00 Resp 16 06/04/17 07:00 BP 136/62 06/04/17 07:00 Pulse Ox 94 L 06/04/17 08:11 Intake & Output 06/03/17 06/04/17 06/04/17 18:59 06:59 18:59 Intake Total 840 480 Output Total 1200 Balance 840 -1200 480 Weight 92.079 kg Intake: Oral 840 480 Output: Urine 1200 Other: Voiding Method Bedpan Bedpan Bedpan # Voids 1 1 - Exam PHYSICAL EXAMINATION: GENERAL: The patient is alert and oriented x3, not in any acute distress. Well developed, well nourished. HEENT: Pupils are round and equally reacting to light. EOMI. No scleral icterus. No conjunctival pallor. Normocephalic, atraumatic. No pharyngeal erythema. No thyromegaly. CARDIOVASCULAR: S1 and S2 present. No murmurs, rubs, or gallops. PULMONARY: Fairly good air entry into bilateral lung dukes, wheezing significantly improved ABDOMEN: Soft, nontender, nondistended, normoactive bowel sounds. No palpable organomegaly. MUSCULOSKELETAL: Deferred to orthopedic surgery EXTREMITIES: No cyanosis, clubbing, or pedal edema. NEUROLOGICAL: Gross neurological examination did not reveal any focal deficits. SKIN: No rashes. - Labs CBC & Chem 7: 06/03/17 07:10 06/03/17 07:10 Assessment and Plan Plan: #1 preoperative clearance for right patellar fracture, surgical correction: Patient is low to intermediate risk for surgery. Risks and benefits were discussed with the patient. Patient is presently postoperative day 2 #2 asthma: has acute exacerbation, improved wheezing with one dose of steroid and patient is okay to discharged on inhalational steroid. #3 gastroesophageal reflux disease #4 hyperlipidemia #6 hypertension: #7 hypothyroidism #8 peripheral vascular disease #9 cerebrovascular accident without any residual weakness #10 pulmonary edema: Secondary to possible chronic diastolic dysfunction with acute exacerbation patient was given IV Lasix today. If cleared by cardiology patient can be discharged.
[2017-06-04] MEDS: VITAMIN E (DL,TOCOPHERYL ACET) 400 UNIT CAP PO SCH (16:46)
[2017-06-04] MEDS: MULTIVITAMINS, THERA 1 EACH TAB PO SCH (16:48)
[2017-06-04] MEDS: FERROUS SULFATE 325 MG TAB PO SCH (16:48)
[2017-06-04] MEDS ORDERED: WARFARIN 5 MG TAB PO ONE (18:00)
[2017-06-04] MEDS: ALPRAZolam 0.25 MG TAB PO SCH (21:01)
[2017-06-04] MEDS: DOCUSATE 100 MG CAP PO SCH (21:01)
[2017-06-04] MEDS: ATORVASTATIN 20 MG TAB PO SCH (21:01)
[2017-06-04] MEDS: CITALOPRAM HYDROBROMIDE 20 MG TAB PO SCH (21:01)
[2017-06-04] MEDS: LATANOPROST 0.005% OPHTH DROPS 2.5 ML BTL BOTH EYES SCH (21:02)
[2017-06-05] MEDS: LEVOTHYROXINE 100 MCG TAB PO SCH (06:35)
[2017-06-05] MEDS: HYDROcodone/APAP 10-325MG 1 EACH TAB PO PRN (06:53)
[2017-06-05 08:13] LABS: INR 1.1 (<1.2)
[2017-06-05] MEDS: FERROUS SULFATE 325 MG TAB PO SCH (09:05)
[2017-06-05] MEDS: FAMOTIDINE 20 MG TAB PO SCH (09:05)
[2017-06-05] MEDS: ATENOLOL 25 MG TAB PO SCH (09:06)
[2017-06-05] MEDS: CALCIUM CARB-VIT D 500MG-200UN 1 EACH TAB PO SCH (09:06)
[2017-06-05] MEDS: FUROSEMIDE 10 MG/ML 2 ML VIAL IV SCH ×2 (09:06→09:23)
[2017-06-05] MEDS: HEPARIN SODIUM,PORCINE 5,000 UNIT/ML 1 ML VIAL SQ SCH (09:06)
[2017-06-05] MEDS: SYMBICORT 160-4.5 MCG INHALER INHALATION SCH (09:16)
[2017-06-05] MEDS ORDERED: FUROSEMIDE 40 MG TAB PO SCH (09:45)
[2017-06-05 10:01] VITALS: BP 120/54; PULSE 79; RESP 18; TEMP 98.4
--- NOTE | 2017-06-05 11:44 | P.PN ---
Subjective Principal diagnosis: Right patella fracture Patient is seen today resting in hospital bed, she appears comfortable. Patient was not discharged to rehab yesterday, she was kept overnight for observation by cardiology. She denies any chest pain, shortness of breath, lightheadedness, or headaches. Objective - Vital Signs Vital signs: Vital Signs Temp 98.4 F 06/05/17 07:00 Pulse 79 06/05/17 07:00 Resp 18 06/05/17 07:00 BP 120/54 06/05/17 07:00 Pulse Ox 97 06/05/17 07:00 Intake & Output 06/04/17 06/05/17 06/05/17 18:59 06:59 18:59 Intake Total 960 Output Total 1800 Balance 960 -1800 Weight 92.079 kg Intake: Oral 960 Output: Urine 1800 Other: Voiding Method Bedpan Bedpan # Voids 5 5 # Bowel Movements 0 - Exam Right lower extremity: Knee immobilizer is in good position. Incision is clean, dry and intact, judith are in good position. Plantar flexion, dorsiflexion, EHL, FHL remained intact. Dorsal pedis pulses 2+, sensory exam to lite touch intact. - Labs CBC & Chem 7: 06/03/17 07:10 06/03/17 07:10 Assessment and Plan Plan: Assessment: 1. Postop day #3 status post ORIF right patellar fracture Plan: 1. Pain control, continue supportive oral medication 2. Nonweightbearing right lower extremity, utilize knee immobilizer 3. Ice and elevate 4. GI and DVT prophylaxis, continue current regimen 5. Other medical practitioners recommendations 6. Discharge planning: Patient will be dc to rehab today Time with Patient: Less than 30
--- NOTE | 2017-06-05 11:53 | P.PN ---
Subjective 81-year-old female admitted after a mechanical fall and right patellar fracture. Patient's pain is fairly controlled today and the patient is going for surgery tomorrow received vitamin K today. 06/02/2017 I saw her postoperatively, patient has expiratory wheezing and also rhonchus breath sounds are pending a chest x-ray. We will give her a dose of prednisone oral. In any nausea, vomiting, abdominal pain, fever, chills, dysuria does have pain in the right knee although controlled with present pain management. 06/03/2017 Patient looks much better no overnight events and patient respiratory status improved patient did pass gas patient is okay to discharge from my perspective whenever she is ready from surgical perspective to be discharged to subacute rehabilitation I did do the medication reconciliation. 06/04/2017 Patient is being discharged today patient appears to have some pulmonary edema because of which patient was given IV Lasix. If cleared by cardiology patient can be discharged. Patient probably has chronic diastolic dysfunction with acute exacerbation. 06/05/2017 Patient's volume status improved with IV Lasix. Patient is being discharged on oral Lasix. Patient still has minimal wheeze which is expected to improve with inhalational steroid. Objective - Vital Signs Vital signs: Vital Signs Temp 98.4 F 06/05/17 07:00 Pulse 79 06/05/17 07:00 Resp 18 06/05/17 07:00 BP 120/54 06/05/17 07:00 Pulse Ox 97 06/05/17 07:00 Intake & Output 06/04/17 06/05/17 06/05/17 18:59 06:59 18:59 Intake Total 960 Output Total 1800 Balance 960 -1800 Weight 92.079 kg Intake: Oral 960 Output: Urine 1800 Other: Voiding Method Bedpan Bedpan # Voids 5 5 # Bowel Movements 0 - Exam PHYSICAL EXAMINATION: GENERAL: The patient is alert and oriented x3, not in any acute distress. Well developed, well nourished. HEENT: Pupils are round and equally reacting to light. EOMI. No scleral icterus. No conjunctival pallor. Normocephalic, atraumatic. No pharyngeal erythema. No thyromegaly. CARDIOVASCULAR: S1 and S2 present. No murmurs, rubs, or gallops. PULMONARY: Fairly good air entry into bilateral lung dukes, wheezing significantly improved ABDOMEN: Soft, nontender, nondistended, normoactive bowel sounds. No palpable organomegaly. MUSCULOSKELETAL: Deferred to orthopedic surgery EXTREMITIES: No cyanosis, clubbing, or pedal edema. NEUROLOGICAL: Gross neurological examination did not reveal any focal deficits. SKIN: No rashes. - Labs CBC & Chem 7: 06/03/17 07:10 06/03/17 07:10 Assessment and Plan Plan: #1 preoperative clearance for right patellar fracture, surgical correction: Patient is low to intermediate risk for surgery. Risks and benefits were discussed with the patient. Patient is presently postoperative day 2 #2 asthma: has acute exacerbation, improved wheezing with one dose of steroid and patient is okay to discharged on inhalational steroid. #3 gastroesophageal reflux disease #4 hyperlipidemia #6 hypertension: #7 hypothyroidism #8 peripheral vascular disease #9 cerebrovascular accident without any residual weakness #10 pulmonary edema: Secondary to possible chronic diastolic dysfunction with acute exacerbation patient was given IV Lasix yesterday with improvement in respiratory status. Patient is cleared for discharge from cardiology perspective on oral Lasix.
--- NOTE | 2017-06-05 14:39 | P.PN ---
Progress Note - Text INTERVAL HISTORY: The patient is a 81-year-old female with a known history of hypertension and hyperlipidemia. She is postoperative day #3 ORIF right patella. Upon exam today she is seen sitting up in bed eating breakfast in no acute distress. She states her shortness of breath has improved but is still evident at times. She is coughing but not bringing anything up. She denies chest pain dizziness palpitations nausea or vomiting. PHYSICAL EXAMINATION: Blood pressure 120/54, heart rate 79, respirations 18, temp 98.4, 97 % on 2 L nasal cannula . HEART: S1, S2 normal. Systolic murmur at the base, no gallop. Regular rate and rhythm. LUNGS: Expiratory wheeze. NECK: Supple. ABDOMEN: Soft, non-tender, positive bowel sounds. EXTREMITIES: 2+ peripheral pulses, no edema. LAB DATA: Labs from 06/03 hemoglobin 9.3, potassium 4.5, BUN 15, creatinine 0.74. FINAL IMPRESSION: 1. Mechanical fall and fracture of the right patella. 2. Left bundle branch block. 3. Essential hypertension. 4. COPD. 5. Diastolic heart failure. 6. Left ventricular hypertrophy secondary to hypertension PLAN: Patient showed much improvement overnight after a round of IV Lasix. She still mild wheeze evident of which medicals addressing. She is stable for transfer to rehab and by mouth Lasix. She is to follow-up with Dr. Baxter in the office in 2 weeks. Nurse Practitioner note has been reviewed, I agree with a documented findings and plan of care. Patient was seen and examined.
[2017-06-05] MEDS ORDERED: WARFARIN 5 MG TAB PO ONE (18:00)
== END 2017-06-05 14:30 | DRG 515 ==
LOC: EC 13:36 → 3SUR 16:21
PROVIDERS: ADMIT Orthopaedic Surgery; ATTEND Orthopaedic Surgery
PROC: 0QSD04Z Reposition Right Patella with Internal Fixation Device, Open Approach (ICD-10-PCS; principal; 2017-06-02 08:00)
DX: S82.001A Unspecified fracture of right patella, initial encounter for closed fracture (principal); I50.33 Acute on chronic diastolic (congestive) heart failure; J45.901 Unspecified asthma with (acute) exacerbation; J44.9 Chronic obstructive pulmonary disease, unspecified; I44.7 Left bundle-branch block, unspecified; I11.0 Hypertensive heart disease with heart failure; I73.9 Peripheral vascular disease, unspecified; E78.5 Hyperlipidemia, unspecified; E03.9 Hypothyroidism, unspecified; M19.91 Primary osteoarthritis, unspecified site; K21.9 Gastro-esophageal reflux disease without esophagitis; K59.00 Constipation, unspecified; G25.81 Restless legs syndrome; H40.9 Unspecified glaucoma; R32 Unspecified urinary incontinence; Z79.51 Long term (current) use of inhaled steroids; Z79.83 Long term (current) use of bisphosphonates; Z79.01 Long term (current) use of anticoagulants; Z79.899 Other long term (current) drug therapy; Z85.038 Personal history of other malignant neoplasm of large intestine; Z92.21 Personal history of antineoplastic chemotherapy; Z92.3 Personal history of irradiation; Z98.42 Cataract extraction status, left eye; Z98.41 Cataract extraction status, right eye; Z86.73 Personal history of transient ischemic attack (TIA), and cerebral infarction without residual deficits; Z87.891 Personal history of nicotine dependence; Z88.2 Allergy status to sulfonamides; Z88.1 Allergy status to other antibiotic agents; W19.XXXA Unspecified fall, initial encounter; Y92.000 Kitchen of unspecified non-institutional (private) residence as the place of occurrence of the external cause
CPT/HCPCS: 36415; 71010; 71020; 80048; 85025; 85027; 85610; 85730; 93005; 93306; 94640; 94760; 96374; 99285

== ENCOUNTER 2018-01-08 19:16 | Inpatient (IN) | payer MEDICARE ==
[2018-01-08] MEDS ORDERED: ALBUTEROL NEBULIZED 2.5 MG/3 ML INHALATION STA (19:36)
[2018-01-08] MEDS ORDERED: PNEUMONIA PROTOCOL UTILIZED 1 EACH MISC PO PRN (19:36)
[2018-01-08] MEDS ORDERED: cefTRIAXone IN SWFI 1,000 MG/10 ML SYRINGE IVP STA (19:36)
[2018-01-08] MEDS ORDERED: IPRATROPIUM 0.5 MG/2.5 ML NEBU INHALATION STA (19:36)
[2018-01-08] MEDS ORDERED: LORazepam 2 MG/ML INJ IV STA (19:36)
[2018-01-08] MEDS ORDERED: methylPREDNISolone SOD SUCCI 125 MG/2 ML VIAL IV STA (19:36)
[2018-01-08] MEDS ORDERED: AZITHROMYCIN 500 MG in SODIUM CHLORIDE 0.9% 250 ML IVPB STA (19:36)
--- NOTE | 2018-01-08 19:40 | ED ---
General Adult HPI - General Chief complaint: Shortness of Breath Stated complaint: sob Time Seen by Provider: 01/08/18 19:35 Source: patient, family, RN notes reviewed, old records reviewed Mode of arrival: ambulatory Limitations: no limitations - History of Present Illness Initial comments: This is an 82-year-old female to the ER for significant severe shortness of breath. Patient has multiple medical comorbidities, asthma, heart disease. Patient coming in with 1 hour of sudden onset shortness of breath and significant worsening symptoms. Patient took inhalers at home with no help. Patient is in severe distress, history otherwise obtained from caregivers - Related Data Home Medications Medication Instructions Recorded Confirmed Albuterol Sulfate [Proair Hfa] 2 puff INHALATION RT-Q6H PRN 11/30/16 01/08/18 Alendronate Sodium [Fosamax] 70 mg PO SCHMITT 11/30/16 01/08/18 Budesonide/Formoterol Fumarate 2 puff INHALATION RT-BID 11/30/16 01/08/18 [Symbicort 160-4.5 Mcg Inhaler] Citalopram Hydrobromide [CeleXA] 20 mg PO HS 11/30/16 01/08/18 Docusate [Colace] 200 mg PO HS 11/30/16 01/08/18 Famotidine [Pepcid] 20 mg PO BID 11/30/16 01/08/18 Furosemide [Lasix] 20 mg PO BID 11/30/16 01/08/18 Latanoprost [Xalatan 0.005%] 1 drop BOTH EYES HS 11/30/16 01/08/18 Levothyroxine Sodium [Synthroid] 100 mcg PO DAILY 11/30/16 01/08/18 Potassium Chloride ER [K-Dur 10] 10 meq PO DAILY 11/30/16 01/08/18 Simvastatin [Zocor] 40 mg PO HS 11/30/16 01/08/18 Warfarin [Coumadin] 7.5 mg PO DAILY@1800 11/30/16 01/08/18 amLODIPine [Norvasc] 5 mg PO BID 11/30/16 01/08/18 Calcium Carbonate/Vitamin D3 1 tab PO BID 05/30/17 01/08/18 [Calcium 600-Vit D3 800 Tab] Multivitamins, Thera [Multivitamin 1 tab PO DAILY@1800 05/30/17 01/08/18 (formulary)] Vitamin E (Dl,Tocopheryl Acet) 400 unit PO DAILY@1800 05/30/17 01/08/18 [Vitamin E] Metoprolol Succinate [Toprol XL] 25 mg PO DAILY 11/02/17 01/08/18 fentaNYL 25MCG/HR PATCH [Duragesic 1 patch TRANSDERM Q72H 11/02/17 01/08/18 25MCG/HR] rOPINIRole HCL [Requip] 2 mg PO HS 11/02/17 01/08/18 ALPRAZolam [Xanax] 0.25 mg PO HS 01/08/18 01/08/18 Previous Rx's Medication Instructions Recorded Hydrocodone/Acetaminophen [[place] 1 tab PO Q6H PRN #60 tab 06/04/17 10-325] Allergies Allergy/AdvReac Type Severity Reaction Status Date / Time sulfamethoxazole AdvReac Nausea & Verified 01/08/18 20:04 [From Bactrim] Vomiting trimethoprim [From Bactrim] AdvReac Nausea & Verified 01/08/18 20:04 Vomiting Review of Systems ROS Statement: Those systems with pertinent positive or pertinent negative responses have been documented in the HPI. ROS Other: All systems not noted in ROS Statement are negative. Past Medical History Past Medical History: Asthma, Cancer, CVA/TIA, GERD/Reflux, Hyperlipidemia, Hypertension, Osteoarthritis (OA), Pneumonia, Thyroid Disorder, Vascular Disorder Additional Past Medical History / Comment(s): Murmur; constipation,Colon Ca 2001 (has sx,chemo and radiation),rosacea,injury to rt hand/ lost most of it. rls, glaucoma,pleurisy, sinus problems,uti, urinary incont-wears a pad. past falls( broke lt hip and R patella(had sx), uses a w/c when out side the home. History of Any Multi-Drug Resistant Organisms: None Reported Past Surgical History: Bowel Resection, Orthopedic Surgery Additional Past Surgical History / Comment(s): Left hip IM Nailing; rt hand surgery-grafting done(donor site was abd), carpal tunnel, krista cataracts, colonoscopy/polypectomy, right knee surgery Past Anesthesia/Blood Transfusion Reactions: No Reported Reaction Past Psychological History: No Psychological Hx Reported Smoking Status: Never smoker Past Alcohol Use History: None Reported Past Drug Use History: None Reported - Past Family History Father Family Medical History: Liver Disease Additional Family Medical History / Comment(s): etoh abuse-cirrhosis of the liver Mother Additional Family Medical History / Comment(s): brain aneurysm General Exam Limitations: no limitations General appearance: alert, anxious, in distress Head exam: Present: atraumatic, normocephalic, normal inspection Eye exam: Present: normal appearance, PERRL, EOMI. Absent: scleral icterus, conjunctival injection, periorbital swelling ENT exam: Present: normal exam, mucous membranes moist Neck exam: Present: normal inspection. Absent: tenderness, meningismus, lymphadenopathy Respiratory exam: Present: respiratory distress, wheezes, accessory muscle use, decreased breath sounds, prolonged expiratory. Absent: normal lung sounds bilaterally, rales, rhonchi, stridor Cardiovascular Exam: Present: normal rhythm, tachycardia, normal heart sounds. Absent: systolic murmur, diastolic murmur, rubs, gallop, clicks GI/Abdominal exam: Present: soft, normal bowel sounds. Absent: distended, tenderness, guarding, rebound, rigid Extremities exam: Present: normal inspection, full ROM, normal capillary refill. Absent: tenderness, pedal edema, joint swelling, calf tenderness Back exam: Present: normal inspection Neurological exam: Present: alert, oriented X3, CN II-XII intact Psychiatric exam: Present: normal affect, normal mood Skin exam: Present: warm, dry, intact, normal color. Absent: rash Course Vital Signs 01/08/18 01/08/18 01/08/18 19:18 19:47 20:10 Temperature 100.7 F H Pulse Rate 113 H 116 H 123 H Respiratory 32 H 22 Rate Blood Pressure 185/74 167/71 O2 Sat by Pulse 88 L 100 Oximetry 01/08/18 20:54 Temperature Pulse Rate 103 H Respiratory 20 Rate Blood Pressure 165/78 O2 Sat by Pulse 100 Oximetry - Reevaluation(s) Reevaluation #1: 01/08/18 21:00 Patient placed on BiPAP with significant improvement, EKG Findings - EKG Comments: EKG Findings:: EKG shows sinus tachycardia rate 110, AR 156, QRS 140, QTC 506 Medical Decision Making - Medical Decision Making 82 female the ER for evaluation of significant shortness of breath, patient placed on BiPAP, will be admitted for cardiopulmonary support - Radiology Data Radiology results: report reviewed (Chest x-ray positive for CHF), image reviewed Critical Care Time Critical Care Time: Yes Total Critical Care Time: 31 Disposition Clinical Impression: COPD exacerbation, Fever, Acute bronchitis, Hypertension, CHF (congestive heart failure), Hypoxia Disposition: ADMITTED IP TO THIS [facility] Condition: Serious Referrals: Scot Garcia MD [Primary Care Provider] - 1-2 days
--- NOTE | 2018-01-08 20:34 | XR ---
EXAMINATION TYPE: XR chest 1V portable DATE OF EXAM: 01/08/2018 COMPARISON: 11/06/2017 HISTORY: Short of breath TECHNIQUE: Single frontal view of the chest is obtained. FINDINGS: A single portable view of the chest shows mild pulmonary congestion. Heart appears enlarge d. There are chest leads. IMPRESSION: There is probably new mild heart failure compared to last exam.
[2018-01-08] MEDS: IPRATROPIUM-ALBUTEROL 3 ML NEB INHALATION SCH (21:19)
[2018-01-08 21:21] LABS: INR 1.5 (<1.2); Prothrombin Time 13.8 sec (9.0-12.0)
[2018-01-08 21:24] LABS: Anisocytosis Slight; Basophils % (A) 0 %; Eosinophils % (A) 0 %; HCT 30.3 % (34.0-46.0); HGB 8.8 gm/dL (11.4-16.0); Hypochromasia Marked; Lymphocytes # (A) 1.3 k/uL (1.0-4.8); Lymphocytes % (A) 13 %; MCV 89.6 fL (80.0-100.0); Mean Platelet Volume 9.3; Monocytes # (A) 0.6 k/uL (0-1.0); Monocytes % (A) 6 %; Neutrophils # (A) 8.1 k/uL (1.3-7.7); Neutrophils % (A) 79 %; RBC 3.39 m/uL (3.80-5.40); WBC 10.3 k/uL (3.8-10.6)
[2018-01-08] MEDS ORDERED: ACETAMINOPHEN TAB 500 MG TAB PO STA (21:26)
[2018-01-08 21:29] LABS: Creatine Kinase 37 U/L (30-135)
[2018-01-08 21:36] LABS: Partial Thromboplastin Time 19.2 sec (22.0-30.0)
[2018-01-08 21:41] LABS: ALT 41 U/L (9-52); AST 38 U/L (14-36); Alkaline Phosphatase 64 U/L (38-126); Anion Gap 12 mmol/L; Blood Urea Nitrogen 19 mg/dL (7-17); Calcium 8.9 mg/dL (8.4-10.2); Carbon Dioxide 28 mmol/L (22-30); Chloride 101 mmol/L (98-107); Creatine Kinase MB 0.2 ng/mL (0.0-2.4); Glucose 150 mg/dL (74-99); Potassium 3.8 mmol/L (3.5-5.1); Sodium 141 mmol/L (137-145); Total Bilirubin 0.6 mg/dL (0.2-1.3); Total Protein 6.8 g/dL (6.3-8.2); Troponin I <0.012 ng/mL (0.000-0.034)
[2018-01-08] MEDS: FUROSEMIDE 10 MG/ML 4 ML VIAL IV SCH (21:52)
[2018-01-08 22:03] LABS: Platelet Count 88 k/uL (150-450)
[2018-01-08 22:05] LABS: Ovalocytes Present; Polychromasia Present
[2018-01-08] MEDS ORDERED: ALPRAZolam 0.25 MG TAB PO PRN (22:12)
[2018-01-08 22:38] LABS: Glucose,Whole Blood 200 mg/dL (75-99)
--- NOTE | 2018-01-08 23:03 | HP ---
HISTORY AND PHYSICAL DATE OF SERVICE: 01/08/2018 CHIEF COMPLAINT: Shortness of breath. HISTORY OF PRESENT ILLNESS: This 82-year-old woman with a past medical history of multiple medical problems including history of asthma, history of GERD, hypertension, hyperlipidemia, DJD being followed by Dr. Garcia in the outpatient setting was admitted with significant shortness of breath. The patient in October had an episode of shortness of breath and possible atypical pneumonia suspected. Patient improved significantly. Currently the patient is doing well according to the family and last night the patient got increasing shortness of breath. The shortness of breath was rather sudden onset with worsening symptoms and the patient took some inhalers without any relief and because of severe distress, patient came to [facility] and was admitted for further evaluation and treatment. Patient was found to have features of acute hypoxic respiratory failure and the patient was started on BiPAP and oxygenation improved to 100%. The patient also found to have mild fever also. There is no history any rigors. No headache, loss of consciousness or seizures. No history per family. The patient has taken a flu shot this year. PAST MEDICAL HISTORY: History of asthma, CVA, TIA, GERD, hypertension, hyperlipidemia, DJD, history pneumonia, history of peripheral vascular disorder. MEDICATIONS: Home medications are: 1. Requip 2 mg p.o. q.h.s. 2. Zocor 40 mg q.h.s. 3. Xalatan 0.045% 1 drop both eyes q.h.s. 4. Colace 200 mg q.h.s. 5. Celexa 20 mg p.o. q.h.s. 6. Fentanyl 25 mcg q.72h. 7. Norvasc 5 mg p.o. b.i.d. 8. Coumadin 7.5 mg p.o. daily. 9. Vitamin E 400 units daily. 10.K-Dur 10 mg p.o. daily. 11.Multivitamins one p.o. daily. 12.Toprol-XL 25 mg p.o. daily. 13.Synthroid 100 mcg p.o. daily. 14.[place] 1 tab p.o. q.6 hours. 15.Lasix 20 mg p.o. b.i.d. 16.Pepcid 20 mg p.o. b.i.d. 17.Calcium with vitamin D 1 p.o. b.i.d. 18.Symbicort 160/4.5 two puffs b.i.d. 19.Fosamax 70 mg p.o. Saturday. 20.Pro-Air 2 puffs q.6h p.r.n. 21.Xanax 0.5 q.h.s. ALLERGIES: BACTRIM. FAMILY HISTORY: History of liver disease in the family. History of EtOH and cirrhosis in the family. SOCIAL HISTORY: No history of smoking. No history of alcohol. REVIEW OF SYSTEMS: ENT: Diminished hearing and vision. CARDIOVASCULAR: As mentioned. Respiratory: As mentioned earlier. GI as mentioned. : No dysuria. NERVOUS SYSTEM: No numbness, weakness. Allergy/Immunology: No asthma or hayfever. Musculoskeletal as mentioned earlier. HEMATOLOGY/ONCOLOGY: No history of anemia. Endocrine: No history of diabetes, hypothyroidism present. Constitutional: As mentioned earlier. Dermatology negative. Rheumatology: Negative. Psychiatric: As mentioned earlier. PHYSICAL EXAMINATION: The patient is on BiPAP. The settings are noted. The patient is extremely short of breath. The pulse is 103. Blood pressure 160/70, respiration 22, temperature 101.5, pulse ox 96% on BiPAP. HEENT: Conjunctivae normal. Oral mucosa moist. Neck is extremities are respiration acting and breathing efforts are markedly increased. CARDIOVASCULAR: S1, S2 muffled. No S3, no S4. RESPIRATORY: Breath sounds diminished in the bases. Bilateral scattered rhonchi and expiratory wheezing and crackles. ABDOMEN: Soft, nontender. No mass palpable. Legs: No edema and no swelling. Nervous system: Higher functions as mentioned earlier. No focal motor or sensory deficits. Lymphatics: No lymph nodes palpable in the neck or axillae. Joints : No active deforming arthropathy. Skin no ulcer, rash, bleeding. LAB: Investigations at this time show WBC 10.2, hemoglobin is 8.8, and platelets 88 and INR is 1.5. Chest x-ray which was reviewed personally by me showed mild heart failure. ASSESSMENT: 1. Bronchial asthma acute exacerbation with acute purulent tracheobronchitis with possible acute pneumonia. 2. Rule out congestive heart failure. 3. Acute hypoxic respiratory failure on BiPAP. 4. History of cerebrovascular accident, transient ischemic attack. 5. History of gastroesophageal reflux disease. 6. Hypertension. 7. Hyperlipidemia. 8. History of degenerative joint disease. 9. History of hypothyroidism. 10.History of constipation. 11.History of colon cancer status post surgery, chemotherapy and radiation. 12.History of rosacea. 13.History of glaucoma. 14.History of bowel resection. 15.History of degenerative joint disease. RECOMMENDATIONS AND DISCUSSION: In this 82-year-old woman who presented with multiple complex medical issues, we will monitor the patient closely, continue the current medications, symptomatic treatment. We will optimize bronchodilators. Patient is started on BiPAP for acute hypoxic respiratory failure. I would recommend ICU admission as well as consult Dr. Rain and continue to monitor. Empiric antibiotics will be used. The patient will be started on Rocephin and Zithromax. Home medications will be continued. DVT prophylaxis. Prognosis guarded because of multiple complex medical issues. A copy forwarded to Dr. Garcia who is the primary physician. Discussed with family at length, understands and agrees. DUSTY / MARS: [id number] / MTDD
[2018-01-08 23:18] VITALS: BMI 33.5
[2018-01-09 02:08] LABS: Appearance,Urine Clear (Clear); Bilirubin,Urine Negative (Negative); Blood,Urine Negative (Negative); Color,Urine Yellow; Glucose,Urine (UA) Negative (Negative); Ketones,Urine Negative (Negative); Leukocyte Esterase,Urine Negative (Negative); Protein,Urine Negative (Negative); Specific Gravity,Urine 1.009 (1.001-1.035); Urobilinogen,Urine <2.0 mg/dL (<2.0)
[2018-01-09 05:11] LABS: Basophils % (A) 0 %; Eosinophils % (A) 0 %; HCT 29.6 % (34.0-46.0); HGB 8.4 gm/dL (11.4-16.0); Hypochromasia Marked; Lymphocytes # (A) 0.7 k/uL (1.0-4.8); Lymphocytes % (A) 10 %; MCH 26.2 pg (25.0-35.0); MCHC 28.4 g/dL (31.0-37.0); MCV 92.3 fL (80.0-100.0); Mean Platelet Volume 9.6; Monocytes # (A) 0.1 k/uL (0-1.0); Monocytes % (A) 2 %; Neutrophils # (A) 6.3 k/uL (1.3-7.7); Neutrophils % (A) 88 %; RBC 3.21 m/uL (3.80-5.40); RDW 15.7 % (11.5-15.5); WBC 7.2 k/uL (3.8-10.6)
[2018-01-09 05:12] LABS: INR 1.7 (<1.2); Prothrombin Time 15.6 sec (9.0-12.0)
[2018-01-09 05:16] LABS: Platelet Count 78 k/uL (150-450)
[2018-01-09 05:20] LABS: Calcium 8.8 mg/dL (8.4-10.2); Potassium 4.4 mmol/L (3.5-5.1)
[2018-01-09] MEDS: FUROSEMIDE 10 MG/ML 4 ML VIAL IV SCH ×2 (05:24→17:22)
[2018-01-09] MEDS: LEVOTHYROXINE 100 MCG TAB PO SCH (05:24)
--- NOTE | 2018-01-09 06:54 | XR ---
EXAMINATION TYPE: XR chest 1V portable DATE OF EXAM: 01/09/2018 CLINICAL HISTORY: Difficulty breathing progress study. TECHNIQUE: Single AP portable upright view of the chest is obtained. COMPARISON: Chest x-ray from one day earlier and older studies. FINDINGS: There is cardiomegaly with suspected mild central vascular congestion and interstitial julio ma redemonstrated. There is no new focal airspace opacity, pleural effusion, or pneumothorax seen krista aterally. Atherosclerotic change in aortic knob is present. Osseous structures are intact. IMPRESSION: Overall stable findings, findings consistent with CHF exacerbation as there is cardiome montse with mild central vascular congestion redemonstrated.
[2018-01-09] MEDS: IPRATROPIUM-ALBUTEROL 3 ML NEB INHALATION SCH ×4 (07:30→19:36)
[2018-01-09] MEDS ORDERED: BUDESONIDE 1 MG/2 ML NEBU INHALATION SCH (08:00)
[2018-01-09] MEDS ORDERED: FORMOTEROL FUMARATE 20 MCG/2 ML NEBU INHALATION SCH (08:00)
[2018-01-09] MEDS: METOPROLOL SUCCINATE (ER) 25 MG TAB.ER.24H PO SCH (08:47)
[2018-01-09] MEDS: FAMOTIDINE 20 MG TAB PO SCH ×2 (08:47→20:53)
[2018-01-09] MEDS: CALCIUM CARB-VIT D 500MG-200UN 1 EACH TAB PO SCH ×2 (08:47→20:52)
[2018-01-09] MEDS: POTASSIUM CHLORIDE ER 10 MEQ TAB.ER.PRT PO SCH (08:48)
[2018-01-09] MEDS: amLODIPine 5 MG TAB PO SCH ×2 (08:48→20:52)
[2018-01-09] MEDS ORDERED: FUROSEMIDE 10 MG/ML 4 ML VIAL IV SCH (09:00)
[2018-01-09] MEDS: HYDROcodone/APAP 10-325MG 1 EACH TAB PO PRN (09:34)
--- NOTE | 2018-01-09 09:37 | CONS ---
CONSULTATION This is an 82-year-old lady with a known history of COPD, she also has hypertensive cardiovascular disease and has come into the hospital with progressively worsening shortness of breath. She was seen in the emergency room yesterday for severe shortness of breath that was progressively getting worse. She has underlying bronchial asthma, COPD, quit smoking more than 40 years ago and she felt that shortness of breath had become worse somewhat suddenly. She took some inhalers without help and came into the emergency room. She was placed on a BiPAP, given some Lasix and this morning she feels better. She denied any chest pain, palpitations, syncope or near syncope. At the time of my evaluation, she is comfortable. She is in the ICU. She is off the BiPAP. This patient used to see Dr. Musa Singh until 2014. PAST MEDICAL HISTORY: She has history of bronchial asthma, hypertension, hyperlipidemia, hypothyroidism and also has history of colon cancer, status post surgery, glaucoma, and also has had some knee arthroplasty. MEDICATIONS: Medications at home include Coumadin, the reason for Coumadin is somewhat unclear. She has a fentanyl patch, simvastatin 40 mg daily. She also takes potassium supplements and Lasix at 20 mg b.i.d., metoprolol succinate 25 mg daily, Pepcid, Fosamax, Xanax, and Requip. ALLERGIES: She is allergic to SULFA. PHYSICAL EXAMINATION: On examination, blood pressure is 140/70, pulse rate is about 86 per minute, irregular. HEENT: Unremarkable. Fundus was not examined by me. Neck is supple. There is JVD of at least 1 cm or more. There is no carotid bruit. Heart exam reveals S1, S2 heard normally. There is an ejection systolic murmur with preserved second heart sound that is audible at the aortic area. There is also another systolic murmur audible at the apex, which appears to be more prolonged murmur. There are no gallops. Lungs reveal bilateral fair air entry with diminished breath sounds on both bases. Abdomen is soft, nontender. Lower extremities reveal palpable pulses. No edema. Central nervous system is grossly within normal limits. 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 EKG revealed a sinus mechanism with left bundle branch block pattern. BNP was unremarkable. Chest x-ray shows mild pulmonary vascular congestion. IMPRESSION: 1. Exacerbation of chronic obstructive pulmonary disease requiring BiPAP, now off BiPAP doing better. 2. History of hypertension. 3. Hyperlipidemia. 4. History of degenerative joint disease with previous joint surgeries. 5. History of being on Coumadin. The details are somewhat unclear. 6. No clear-cut evidence to suggest coronary artery disease for this patient. RECOMMENDATIONS: I recommend that we cut back the Lasix from 40 mg q.8 to 40 q.12 hours. I would also recommend that we obtain an echocardiogram to assess LV function and look for any valvular disease as well. I am not sure as to why patient is on Coumadin that needs to be evaluated as well. The patient can be moved to the telemetry unit when she is more stable. Thank you very much for the consult. DUSTY / IJN: [id number] /
--- NOTE | 2018-01-09 09:37 | P.CNPUL ---
History of Present Illness Consult date: 01/09/18 Reason for consult: dyspnea, COPD, hypoxemia, abnormal CXR/CT Chief complaint: Difficulty breathing History of present illness: Consult dated 01/09/2018 This is an 82-year-old female who presented to the emergency department with complaints of increasing shortness of breath. Shortness of breath apparently was sudden in onset and started to occur about an hour prior to coming to the emergency room. In addition, she has some chest congestion. She was coughing a bit. Not producing any phlegm. Apparently the chest x-ray showed evidence of some fluid overload. The patient was admitted to 6 [facility] but ended up in the ICU closer is no beds there. She is feeling a bit better today. Less short of breath. Denies any chest pain or chest discomfort. No palpitations. Not producing any phlegm. Not coughing up any blood. There is no fever or chills. No nausea vomiting or diarrhea. Essentially, her only complaint was that of shortness of breath. She does have both pulmonary and cardiac disease. Her past medical history includes COPD/asthma CVA GERD hyperlipidemia hypertension DJD pneumonia colon cancer and rosacea glaucoma pleurisy urinary tract infections and urinary incontinence as well as multiple surgical procedures. She apparently is a lifelong nonsmoker and so her lung disease likely represents chronic bronchial asthma as opposed emphysema/chronic bronchitis. She is feeling much better today. When she first came into the unit, she was on BiPAP. That was quickly weaned off the nasal O2. She is on nasal O2 at 4 L. She's getting a saline IV at 0.9. Review of Systems Review of systems Constitutional negative Neurologic negative HEENT negative Cardiovascular negative Pulmonary shortness of breath GI/ negative Rheumatologic negative Dermatologic negative Past Medical History Past Medical History: Asthma, Cancer, CVA/TIA, GERD/Reflux, Hyperlipidemia, Hypertension, Osteoarthritis (OA), Pneumonia, Thyroid Disorder, Vascular Disorder Additional Past Medical History / Comment(s): Murmur; constipation,Colon Ca 2001 (has sx,chemo and radiation),rosacea,injury to rt hand/ lost most of it. rls, glaucoma,pleurisy, sinus problems,uti, urinary incont-wears a pad. past falls( broke lt hip and R patella(had sx), uses a w/c when out side the home. History of Any Multi-Drug Resistant Organisms: None Reported Past Surgical History: Bowel Resection, Orthopedic Surgery Additional Past Surgical History / Comment(s): Left hip IM Nailing; rt hand surgery-grafting done(donor site was abd), carpal tunnel, krista cataracts, colonoscopy/polypectomy, right knee surgery Past Anesthesia/Blood Transfusion Reactions: No Reported Reaction Past Psychological History: No Psychological Hx Reported Smoking Status: Former smoker Past Alcohol Use History: None Reported Additional Past Alcohol Use History / Comment(s): started smoking 1966,quit 1986 , smkoed 1.5 ppd Past Drug Use History: None Reported - Past Family History Father Family Medical History: Liver Disease Additional Family Medical History / Comment(s): etoh abuse-cirrhosis of the liver Mother Additional Family Medical History / Comment(s): brain aneurysm Medications and Allergies Home Medications Medication Instructions Recorded Confirmed Type Albuterol Sulfate [Proair Hfa] 2 puff INHALATION RT-Q6H PRN 11/30/16 01/08/18 History Alendronate Sodium [Fosamax] 70 mg PO SCHMITT 11/30/16 01/08/18 History Budesonide/Formoterol Fumarate 2 puff INHALATION RT-BID 11/30/16 01/08/18 History [Symbicort 160-4.5 Mcg Inhaler] Citalopram Hydrobromide [CeleXA] 20 mg PO HS 11/30/16 01/08/18 History Docusate [Colace] 200 mg PO HS 11/30/16 01/08/18 History Famotidine [Pepcid] 20 mg PO BID 11/30/16 01/08/18 History Furosemide [Lasix] 20 mg PO BID 11/30/16 01/08/18 History Latanoprost [Xalatan 0.005%] 1 drop BOTH EYES HS 11/30/16 01/08/18 History Levothyroxine Sodium [Synthroid] 100 mcg PO DAILY 11/30/16 01/08/18 History Potassium Chloride ER [K-Dur 10] 10 meq PO DAILY 11/30/16 01/08/18 History Simvastatin [Zocor] 40 mg PO HS 11/30/16 01/08/18 History Warfarin [Coumadin] 7.5 mg PO DAILY@1800 11/30/16 01/08/18 History amLODIPine [Norvasc] 5 mg PO BID 11/30/16 01/08/18 History Calcium Carbonate/Vitamin D3 1 tab PO BID 05/30/17 01/08/18 History [Calcium 600-Vit D3 800 Tab] Multivitamins, Thera [Multivitamin 1 tab PO DAILY@1800 05/30/17 01/08/18 History (formulary)] Vitamin E (Dl,Tocopheryl Acet) 400 unit PO DAILY@1800 05/30/17 01/08/18 History [Vitamin E] Hydrocodone/Acetaminophen [[place] 1 tab PO Q6H PRN #60 tab 06/04/17 01/08/18 Rx 10-325] Metoprolol Succinate [Toprol XL] 25 mg PO DAILY 11/02/17 01/08/18 History fentaNYL 25MCG/HR PATCH [[place] 1 patch TRANSDERM Q72H 11/02/17 01/08/18 History 25MCG/HR] rOPINIRole HCL [Requip] 2 mg PO HS 11/02/17 01/08/18 History ALPRAZolam [Xanax] 0.25 mg PO HS 01/08/18 01/08/18 History Allergies Allergy/AdvReac Type Severity Reaction Status Date / Time sulfamethoxazole AdvReac Nausea & Verified 01/08/18 20:04 [From Bactrim] Vomiting trimethoprim [From Bactrim] AdvReac Nausea & Verified 01/08/18 20:04 Vomiting Physical Exam Osteopathic Statement: *. No significant issues noted on an osteopathic structural exam other than those noted in the History and Physical/Consult. Vitals: Vital Signs Temp Pulse Resp BP Pulse Ox 01/09/18 09:00 102 H 20 142/64 96 01/09/18 08:00 97.9 F 90 16 139/48 97 01/09/18 07:51 87 01/09/18 07:41 87 01/09/18 07:40 85 01/09/18 07:30 87 18 01/09/18 07:00 77 22 139/48 97 01/09/18 06:00 82 12 144/57 97 01/09/18 05:00 91 20 144/57 95 01/09/18 04:00 76 15 142/54 96 01/09/18 03:00 81 14 142/54 96 01/09/18 02:00 81 45 H 140/67 96 01/09/18 01:00 90 20 140/67 93 L 01/09/18 00:00 99.4 F 92 22 123/59 92 L 01/08/18 23:33 93 L 01/08/18 23:00 99 20 115/50 93 L 01/08/18 22:36 95 01/08/18 22:35 93 01/08/18 21:56 103 H 20 144/54 96 01/08/18 21:25 101.5 F H 103 H 22 167/70 96 01/08/18 20:54 103 H 20 165/78 100 01/08/18 20:10 123 H 22 167/71 100 01/08/18 19:47 116 H 01/08/18 19:36 26 H 01/08/18 19:18 100.7 F H 113 H 32 H 185/74 88 L Intake and Output 01/08/18 01/09/18 01/09/18 22:59 06:59 14:59 Intake Total 20 Output Total 400 Balance -380 Intake: IV 20 NaCl @ 20 20 Output: Urine 400 Other: Voiding Method Bedpan Bedpan Weight 88.45 kg 88.45 kg Patient Weight 01/10/18 06:59 Weight 88.45 kg No acute distress, oriented 3. Currently on nasal O2 at 4 L. HEENT examination is grossly unremarkable. Mucous membranes are moist. No oral lesions. Neck supple. Full range of motion. No adenopathy thyromegaly or neck vein distention. Cardiovascular examination reveals regular rhythm rate. S1-S2 normal. No S3 or S4. No discernible murmur noted. Heart sounds are distant. Lungs reveal a few scattered bibasilar crackles. A few scattered rhonchi and some high-pitched wheezing. Breath sounds are equal bilaterally. Abdomen soft bowel sounds are heard. No masses or tenderness. Extremities are intact. No cyanosis clubbing or edema. Skin is without rash or lesion. Neurologic examination is brief but nonfocal. Results - Laboratory Findings CBC and BMP: 01/09/18 04:38 01/09/18 04:38 PT/INR, D-dimer PT 15.6 sec (9.0-12.0) H 01/09/18 04:38 INR 1.7 (<1.2) H 01/09/18 04:38 Abnormal lab findings: Abnormal Labs 01/08/18 01/08/18 01/08/18 21:00 21:00 21:00 RBC 3.39 L Hgb 8.8 L Hct 30.3 L MCHC 29.0 L RDW 16.0 H Plt Count 88 L Neutrophils # 8.1 H Lymphocytes # PT 13.8 H INR 1.5 H APTT 19.2 L BUN 19 H Creatinine Glucose 150 H POC Glucose (mg/dL) AST 38 H 01/08/18 01/09/18 01/09/18 22:36 04:38 04:38 RBC 3.21 L Hgb 8.4 L Hct 29.6 L MCHC 28.4 L RDW 15.7 H Plt Count 78 L Neutrophils # Lymphocytes # 0.7 L PT 15.6 H INR 1.7 H APTT BUN Creatinine Glucose POC Glucose (mg/dL) 200 H AST 01/09/18 04:38 RBC Hgb Hct MCHC RDW Plt Count Neutrophils # Lymphocytes # PT INR APTT BUN 27 H Creatinine 1.10 H Glucose 306 H POC Glucose (mg/dL) AST - Diagnostic Findings Chest x-ray: image reviewed (Labs x-rays a medications are all reviewed.) Assessment and Plan Assessment: Assessment Shortness of breath, likely multifactorial, in part related to underlying asthma exacerbation as well as mild congestive heart failure. History of colon cancer History of CVA/TIA History of GERD Hyperlipidemia by history. Hypertension by history DJD History of pneumonia Hypothyroidism Multiple other medical problems and comorbidities Plan: Plan dated 01/09/2018 The patient's doing much better already. BiPAP has been weaned to nasal O2 at 4 L. Appropriate medications have been started. Chest x-rays have been reviewed. Labs have been reviewed. I will review the medications. Additional recommendations and suggestions are forthcoming. The patient could likely be discharged out of the unit later today. No additional recommendations are made. Time with Patient: Greater than 30
[2018-01-09 11:21] LABS: Glucose,Whole Blood 430 mg/dL (75-99)
--- NOTE | 2018-01-09 11:52 | ECHOF ---
Referral Reason:chf MEASUREMENTS -------- HEIGHT: 162.6 cm WEIGHT: 88.0 kg BP: 144/57 RVIDd: 3.0 cm (< 3.3) IVSd: 1.1 cm (0.6 - 1.1) LVIDd: 4.4 cm (3.9 - 5.3) LVPWd: 1.3 cm (0.6 - 1.1) IVSs: 1.5 cm LVIDs: 3.1 cm LVPWs: 1.4 cm LA Diam: 3.7 cm (2.7 - 3.8) LAESV Index (A-L): 29.83 ml/m Ao Diam: 3.1 cm (2.0 - 3.7) AV Cusp: 1.4 cm (1.5 - 2.6) LA Diam: 4.4 cm (2.7 - 3.8) MV EXCURSION: 12.148 mm (> 18.000) MV EF SLOPE: 62 mm/s (70 - 150) EPSS: 0.3 cm MV E Brando: 1.54 m/s MV DecT: 134 ms MV A Brando: 1.91 m/s MV E/A Ratio: 0.81 RAP: 5.00 mmHg RVSP: 53.82 mmHg FINDINGS -------- Sinus rhythm. This was a technically adequate study. The left ventricular size is normal. There is borderline concentric left ventricular hypertrophy. Overall left ventricular systolic function is low-normal with, an EF between 50 - 55 %. The right ventricle is normal in size. LA is midly dilated 29-33ml/m2. The right atrial size is normal. There is mild aortic valve sclerosis. There is no evidence of aortic regurgitation. The mitral valve leaflets are moderately thickened. Moderate mitral regurgitation is present. Th e peak and mean MV gradients are 22.37mmHg 10.70mmHg as measured by doppler. MV is Stenotic with de crease opening Rlyv-nc-atucdihr tricuspid regurgitation present. There is moderate pulmonary hypertension. The r ight ventricular systolic pressure, as measured by Doppler, is 53.82mmHg. Trace/mild (physiologic) pulmonic regurgitation. The aortic root size is normal. There is no pericardial effusion. CONCLUSIONS -------- 1. The left ventricular size is normal. 2. There is borderline concentric left ventricular hypertrophy. 3. Overall left ventricular systolic function is low-normal with, an EF between 50 - 55 %. 4. LA is midly dilated 29-33ml/m2. 5. There is mild aortic valve sclerosis. 6. The mitral valve leaflets are moderately thickened. 7. Moderate mitral regurgitation is present. 8. The peak and mean MV gradients are 22.37mmHg 10.70mmHg as measured by doppler. 9. MV is Stenotic with decrease opening 10. Edef-yl-zuvzzzki tricuspid regurgitation present. 11. There is moderate pulmonary hypertension. 12. The right ventricular systolic pressure, as measured by Doppler, is 53.82mmHg. 13. Trace/mild (physiologic) pulmonic regurgitation. 14. The aortic root size is normal. 15. There is no pericardial effusion. [employer]IN[employer]CE SUPERVISOR: Lynnette Garcia RDCS
[2018-01-09] MEDS ORDERED: INSULIN ASPART 100 UNIT/ML 1 ML 10 ML VIAL SQ ONE (12:06)
[2018-01-09 12:21] LABS: Glucose,Whole Blood 374 mg/dL (75-99)
[2018-01-09] MEDS: INSULIN ASPART 100 UNIT/ML 1 ML 10 ML VIAL SQ SCH ×3 (12:42→20:59)
--- NOTE | 2018-01-09 14:30 | CDI ---
Last Revision, October 2017 Documentation Clarification Form Date: 01/09/2018 2:15:00 PM From: Lety RasmussenJANEEN, CCDS Admit Date: 01/08/2018 9:00:00 PM Patient Name: Nadira Lopez Visit Number: [id number] Discharge Date: ATTENTION: The Clinical Documentation Specialists (CDI) and [facility] Coding Staff appreciate your assistance in clarifying documentation. Please respond to the clarification below the line at the bottom and electronically sign. The CDI & [facility] Coding staff will review the response and follow-up if needed. Please note: Queries are made part of the Legal Health Record. If you have any questions, please contact the author of this message via ITS. Dr. Dennis Rain: Per your 01/09 Pulmonary/Critical Care consult: "Shortness of breath, likely multifactorial, in part related to underlying asthma exacerbation as well as mild congestive heart failure." Patient history/risk factors: COPD, Asthma, CVA, GERD, Hyperlipidemia, Hypertension, DJD, Pneumonia, Colon cancer Pleurisy. Clinical Indicators: Radiology: CXR: probably new mild heart failure. Repeat on 01/09: Findings consistent with CHF exac with cardiomegaly with mild central vascular congestion. Vital Signs: T 100.7^, P 113^, R 32, BP 185/74, PO 88 ra Respiratory exam: SOB, labored, tachypnea, accessory muscle use. Treatment: Admit to ICU on BiPAP, Albuterol INH, IV Azithromycin, IV Ativan, IV Rocephin, IV solumedrol, IV Lasix, O2: BiPAP, now on 4Lnc. In your professional opinion, can you please further specify the asthma diagnosis, if known? Acute Exacerbation Status asthmaticus Acute lower respiratory infection COPD (specify with or without exacerbation) Other, please specify Unable to determine Severity: o Mild intermittent o Mild persistent o Moderate persistent o Severe persistent o Other, please specify o Unable to determine Please continue to document in your progress notes and discharge summary in order to capture severity of illness and risk of mortality. Include clinical findings that support your diagnosis. MTDD
[2018-01-09 17:18] LABS: Glucose,Whole Blood 146 mg/dL (75-99)
[2018-01-09] MEDS: MULTIVITAMINS, THERA 1 EACH TAB PO SCH (17:19)
[2018-01-09] MEDS: VITAMIN E (DL,TOCOPHERYL ACET) 400 UNIT CAP PO SCH (17:19)
[2018-01-09] MEDS: WARFARIN 7.5 MG TAB PO SCH (17:19)
[2018-01-09] MEDS ORDERED: VANCOMYCIN IV PER PHARMACY 1 EACH MISC MISCELLANE PRN (19:13)
[2018-01-09] MEDS: SYMBICORT 160-4.5 MCG INHALER INHALATION SCH (19:36)
[2018-01-09] MEDS: VANCOMYCIN 1,500 MG in SODIUM CHLORIDE 0.9% 250 ML IVPB SCH (20:07)
[2018-01-09 20:35] LABS: Glucose,Whole Blood 231 mg/dL (75-99)
[2018-01-09] MEDS: cefTRIAXone IN SWFI 1,000 MG/10 ML SYRINGE IVP SCH (20:43)
[2018-01-09] MEDS: ATORVASTATIN 20 MG TAB PO SCH (20:52)
[2018-01-09] MEDS: CITALOPRAM HYDROBROMIDE 20 MG TAB PO SCH (20:53)
[2018-01-09] MEDS: DOCUSATE 100 MG CAP PO SCH (20:53)
[2018-01-09] MEDS: LATANOPROST 0.005% OPHTH DROPS 2.5 ML BTL BOTH EYES SCH (21:01)
--- NOTE | 2018-01-09 21:21 | PN ---
PROGRESS NOTE DATE OF SERVICE: 01/09/2018 This 82-year-old woman who was admitted with asthma, acute exacerbation, was thought to have mild CHF also. The patient is being closely monitored in the ICU. The patient was on BiPAP yesterday. Currently she is on nasal cannula. Dr. Rain is following the patient. The patient is on steroids, bronchodilators and broad-spectrum IV antibiotics also. No chest pain. No palpitations. Past medical history reviewed. REVIEW OF SYSTEMS: CARDIOVASCULAR SYSTEM: No angina, palpitations. RESPIRATORY SYSTEM: As mentioned earlier. GI: As mentioned earlier. : No dysuria or retention NERVOUS SYSTEM: No numbness, weakness.. CURRENT MEDICATIONS: 1. [place] 10 mg q.6 p.r.n. 2. DuoNeb q.i.d. and p.r.n. 3. Xanax 0.25 at bedtime p.r.n. 4. Norvasc 5 mg p.o. b.i.d. 5. Lipitor 20 mg daily. 6. Symbicort 160/4.5 two puffs b.i.d. 7. Os-Sae with vitamin D one p.o. at bedtime. 8. Rocephin 1 gram daily. 9. Celexa 20 mg p.o. at bedtime. 10.Colace 200 mg at bedtime. 11.Pepcid 20 mg b.i.d. 12.Fentanyl patch 25 mcg q.72 hours. 13.Lasix 40 mg IV b.i.d. 14.NovoLog scale. 15.Xalatan. 16.Synthroid 100 mcg p.o. daily. 17.Toprol XL 25 mg p.o. daily. 18.Multivitamins. 19.Alendronate. 20.K-Dur. 21.Requip. 22.Vitamin E. 23.Coumadin 7.5 mg. PHYSICAL EXAMINATION: Patient is alert, oriented x3. Pulse is 94, blood pressure 140/60, respiration 14, temperature 98.4, pulse ox 100% on 2 L. HEENT: Conjunctivae normal. Oral mucosa moist. NECK: No jugular venous distention. No carotid bruit. No lymph node enlargement. CARDIOVASCULAR SYSTEM: S1, S2 muffled. No S3. No S4. RESPIRATORY SYSTEM: Breath sounds diminished at the bases. Bilateral scattered rhonchi and crackles. ABDOMEN: Soft, non-tender. No mass palpable. LEGS: No edema. No swelling. NERVOUS SYSTEM: Higher functions as mentioned earlier. Moves all 4 limbs. No focal motor or sensory deficit. LYMPHATICS: No lymph node palpable in neck, axillae or groin. SKIN: No ulcer, rash, bleeding. LABS: WBC 7.2, hemoglobin 8.4, platelets 78. INR 1.7. Creatinine 1.10. Accu-Cheks are 430, 374, 146. UA is negative. ASSESSMENT: 1. Bronchial asthma, acute exacerbation, with acute purulent tracheobronchitis with possible acute pneumonia. 2. Possible congestive heart failure, acute exacerbation. 3. Acute hypoxic respiratory failure, status post BiPAP. 4. History of cerebrovascular accident, transient ischemic attack. 5. History of gastroesophageal reflux disease. 6. Hypertension. 7. Hyperlipidemia. 8. History of degenerative joint disease. 9. History of hypothyroidism. 10.History of constipation. 11.History of colon cancer, status post surgery, chemotherapy, radiation. 12.History of rosacea. 13.Glaucoma. 14.History of bowel resection. RECOMMENDATIONS AND DISCUSSION: In this 82-year-old woman who presented with multiple complex medical issues, we will monitor the patient closely, continue the current medications, continue with symptomatic treatment, continue the diuretics, bronchodilators and empiric antibiotics. Continue the rest of medication. Closely follow with Dr. Rain and Cardiology. Guarded prognosis. Further recommendations to follow. MMODL / IJN: [id number] /
[2018-01-10] MEDS: HYDROcodone/APAP 10-325MG 1 EACH TAB PO PRN ×2 (02:14→16:01)
[2018-01-10 05:59] LABS: Glucose,Whole Blood 110 mg/dL (75-99)
[2018-01-10] MEDS: INSULIN ASPART 100 UNIT/ML 1 ML 10 ML VIAL SQ SCH ×4 (06:06→21:11)
[2018-01-10 06:31] LABS: INR 1.7 (<1.2); Prothrombin Time 15.9 sec (9.0-12.0)
[2018-01-10] MEDS: FUROSEMIDE 10 MG/ML 4 ML VIAL IV SCH ×2 (06:38→17:12)
[2018-01-10] MEDS: LEVOTHYROXINE 100 MCG TAB PO SCH (06:38)
[2018-01-10 06:43] LABS: Anion Gap 13 mmol/L; Blood Urea Nitrogen 41 mg/dL (7-17); Calcium 8.9 mg/dL (8.4-10.2); Carbon Dioxide 25 mmol/L (22-30); Chloride 103 mmol/L (98-107); Glucose 102 mg/dL (74-99); Potassium 4.3 mmol/L (3.5-5.1); Sodium 141 mmol/L (137-145)
[2018-01-10 06:48] LABS: Anisocytosis Slight; Basophils % (A) 0 %; Eosinophils # (A) 0.1 k/uL (0-0.7); Eosinophils % (A) 1 %; HCT 26.7 % (34.0-46.0); Hypochromasia Marked; Lymphocytes # (A) 2.1 k/uL (1.0-4.8); Lymphocytes % (A) 17 %; MCH 26.5 pg (25.0-35.0); MCHC 29.9 g/dL (31.0-37.0); MCV 88.8 fL (80.0-100.0); Mean Platelet Volume 9.8; Monocytes # (A) 0.7 k/uL (0-1.0); Monocytes % (A) 5 %; Neutrophils # (A) 9.4 k/uL (1.3-7.7); Neutrophils % (A) 75 %; RDW 16.5 % (11.5-15.5); WBC 12.5 k/uL (3.8-10.6)
[2018-01-10 07:00] LABS: Platelet Count 98 k/uL (150-450)
[2018-01-10] MEDS: SYMBICORT 160-4.5 MCG INHALER INHALATION SCH ×2 (08:43→20:44)
[2018-01-10] MEDS: IPRATROPIUM-ALBUTEROL 3 ML NEB INHALATION SCH ×4 (08:43→20:44)
[2018-01-10] MEDS: CALCIUM CARB-VIT D 500MG-200UN 1 EACH TAB PO SCH ×2 (08:49→19:58)
[2018-01-10] MEDS: VANCOMYCIN 1,500 MG in SODIUM CHLORIDE 0.9% 250 ML IVPB SCH (08:49)
[2018-01-10] MEDS: FAMOTIDINE 20 MG TAB PO SCH ×2 (08:49→19:58)
[2018-01-10] MEDS: amLODIPine 5 MG TAB PO SCH ×2 (08:49→19:58)
[2018-01-10] MEDS: METOPROLOL SUCCINATE (ER) 25 MG TAB.ER.24H PO SCH (08:50)
[2018-01-10] MEDS: POTASSIUM CHLORIDE ER 10 MEQ TAB.ER.PRT PO SCH (08:50)
[2018-01-10 11:58] LABS: Glucose,Whole Blood 132 mg/dL (75-99)
--- NOTE | 2018-01-10 12:11 | P.PN ---
Subjective Progress Note Date: 01/10/18 Principal diagnosis: Acute hypoxic respiratory failure secondary to an acute exacerbation of mild intermittent chronic bronchial asthma Consult dated 01/09/2018 This is an 82-year-old female who presented to the emergency department with complaints of increasing shortness of breath. Shortness of breath apparently was sudden in onset and started to occur about an hour prior to coming to the emergency room. In addition, she has some chest congestion. She was coughing a bit. Not producing any phlegm. Apparently the chest x-ray showed evidence of some fluid overload. The patient was admitted to 6 [facility] but ended up in the ICU closer is no beds there. She is feeling a bit better today. Less short of breath. Denies any chest pain or chest discomfort. No palpitations. Not producing any phlegm. Not coughing up any blood. There is no fever or chills. No nausea vomiting or diarrhea. Essentially, her only complaint was that of shortness of breath. She does have both pulmonary and cardiac disease. Her past medical history includes COPD/asthma CVA GERD hyperlipidemia hypertension DJD pneumonia colon cancer and rosacea glaucoma pleurisy urinary tract infections and urinary incontinence as well as multiple surgical procedures. She apparently is a lifelong nonsmoker and so her lung disease likely represents chronic bronchial asthma as opposed emphysema/chronic bronchitis. She is feeling much better today. When she first came into the unit, she was on BiPAP. That was quickly weaned off the nasal O2. She is on nasal O2 at 4 L. She's getting a saline IV at 0.9. Progress note dated 01/10/2018 The patient is seen again today in follow-up on the [facility] care unit. She is awake and alert in no acute distress. She is resting comfortably in bed. She states she is breathing easier today as compared to yesterday. She is maintaining good O2 saturations in the upper 90s on 3 L/m per nasal cannula. She's been afebrile. White count 12.5. Hemoglobin 8.0. Platelet count 98. INR 1.7. Creatinine 1.00. He remains on IV Lasix 40 mg every 12 hours. Objective - Vital Signs Vital signs: Vital Signs Temp 98.1 F 01/10/18 08:00 Pulse 112 H 01/10/18 09:02 Resp 24 01/10/18 08:00 BP 186/98 01/10/18 08:00 Pulse Ox 98 01/10/18 08:00 Intake & Output 01/09/18 01/10/18 01/10/18 18:59 06:59 18:59 Intake Total 20 320 Output Total 450 300 Balance -430 20 Weight 88.45 kg 82.5 kg Intake: IV 20 320 NaCl @ 20 20 320 Output: Urine 450 300 Other: Voiding Method Bedpan Bedpan Bedpan # Voids 2 - Exam No acute distress, oriented 3. Currently on nasal O2 at 4 L. HEENT examination is grossly unremarkable. Mucous membranes are moist. No oral lesions. Neck supple. Full range of motion. No adenopathy thyromegaly or neck vein distention. Cardiovascular examination reveals regular rhythm rate. S1-S2 normal. No S3 or S4. No discernible murmur noted. Heart sounds are distant. Lungs reveal a few scattered bibasilar crackles. A few scattered rhonchi and some high-pitched wheezing. Breath sounds are equal bilaterally. Abdomen soft bowel sounds are heard. No masses or tenderness. Extremities are intact. No cyanosis clubbing or edema. Skin is without rash or lesion. Neurologic examination is brief but nonfocal. - Labs CBC & Chem 7: 01/10/18 05:29 01/10/18 05:29 Labs: Abnormal Lab Results - Last 24 Hours (Table) 01/09/18 01/09/18 01/09/18 Range/Units 12:19 17:16 20:32 WBC (3.8-10.6) k/uL RBC (3.80-5.40) m/uL Hgb (11.4-16.0) gm/dL Hct (34.0-46.0) % MCHC (31.0-37.0) g/dL RDW (11.5-15.5) % Plt Count (150-450) k/uL Neutrophils # (1.3-7.7) k/uL PT (9.0-12.0) sec INR (<1.2) BUN (7-17) mg/dL Glucose (74-99) mg/dL POC Glucose (mg/dL) 374 H 146 H 231 H (75-99) mg/dL 01/10/18 01/10/18 01/10/18 Range/Units 05:29 05:29 05:29 WBC 12.5 H (3.8-10.6) k/uL RBC 3.00 L (3.80-5.40) m/uL Hgb 8.0 L (11.4-16.0) gm/dL Hct 26.7 L (34.0-46.0) % MCHC 29.9 L (31.0-37.0) g/dL RDW 16.5 H (11.5-15.5) % Plt Count 98 L (150-450) k/uL Neutrophils # 9.4 H (1.3-7.7) k/uL PT 15.9 H (9.0-12.0) sec INR 1.7 H (<1.2) BUN 41 H (7-17) mg/dL Glucose 102 H (74-99) mg/dL POC Glucose (mg/dL) (75-99) mg/dL 01/10/18 01/10/18 Range/Units 05:57 11:47 WBC (3.8-10.6) k/uL RBC (3.80-5.40) m/uL Hgb (11.4-16.0) gm/dL Hct (34.0-46.0) % MCHC (31.0-37.0) g/dL RDW (11.5-15.5) % Plt Count (150-450) k/uL Neutrophils # (1.3-7.7) k/uL PT (9.0-12.0) sec INR (<1.2) BUN (7-17) mg/dL Glucose (74-99) mg/dL POC Glucose (mg/dL) 110 H 132 H (75-99) mg/dL Microbiology - Last 24 Hours (Table) 01/08/18 21:00 Blood Culture Gram Stain - Preliminary Blood Blood Culture - Preliminary Coagulase Negative Staph 01/08/18 21:00 Blood Culture - Final Blood 01/09/18 00:50 Urine Culture - Preliminary Urine,Voided Assessment and Plan Assessment: Impression: #1 Acute exacerbation of chronic diastolic congestive heart failure. Preserved left ventricular systolic function with EF 50-55%. #2 Acute exacerbation of mild persistent asthma. #3 Acute hypoxic respiratory failure secondary to above. #4 Pulmonary hypertension. #5 History of CVA/TIA. #6 Hyperlipidemia. #7 Hypertension. #8 Hypothyroidism. Plan: The patient was seen and evaluated by Dr. Rain. She is improved today as compared to yesterday. We'll continue with her current treatment plan. We'll increase her activity as tolerated. We'll continue to follow. I, the cosigning physician, performed a history & physical examination of the patient. Lungs sounds have crackles in the posterior bases. Diminished.. Maintaining good O2 saturations in the 90s on 3 L/m per nasal cannula. I discussed the assessment and plan of care with my nurse practitioner, Michelle Mckee. I attest to the above note as dictated by her.
--- NOTE | 2018-01-10 14:55 | P.PN ---
Subjective Progress Note Date: 01/10/18 Principal diagnosis: Shortness of breath This is a pleasant 82-year-old female with known history of hypertension, COPD, who presented to the hospital with symptoms of progressively worsening shortness of breath. Patient was initiated. On some inhalers and breathing treatments, she was also started on IV Lasix. Today she states overall that her breathing is improved. Her weight is down significantly today. White blood cell count 12.5, hemoglobin 8.0, platelet count 90. INR 1.7, sodium 141, potassium 4.3, BUN 41, creatinine 1.0. An echocardiogram with Doppler study was performed which revealed an ejection fraction of 50-55%, calcified mitral valve, moderate mitral regurg, mild to moderate tricuspid regurg and moderate pulmonary hypertension. We will continue current dose of IV Lasix, give 7-1/2 mg of Coumadin today. Objective - Vital Signs Vital signs: Vital Signs Temp 98.1 F 01/10/18 08:00 Pulse 112 H 01/10/18 09:02 Resp 24 01/10/18 08:00 BP 186/98 01/10/18 08:00 Pulse Ox 98 01/10/18 08:00 Intake & Output 01/09/18 01/10/18 01/10/18 18:59 06:59 18:59 Intake Total 20 320 Output Total 450 300 Balance -430 20 Weight 88.45 kg 82.5 kg Intake: IV 20 320 NaCl @ 20 20 320 Output: Urine 450 300 Other: Voiding Method Bedpan Bedpan Bedpan # Voids 2 - Exam PHYSICAL EXAMINATION: HEENT: Head is atraumatic, normocephalic. Pupils equal, round. Neck is supple. There is no elevated jugular venous pressure. HEART EXAMINATION: Heart S1 S2 1 systolic ejection murmur is heard. CHEST EXAMINATION: Lungs are clear with diminished air entry to the bases. ABDOMEN: Soft, nontender. Bowel sounds are heard. No organomegaly noted. EXTREMITIES: 2+ peripheral pulses with no evidence of peripheral edema and no calf tenderness noted. NEUROLOGIC patient is awake, alert and oriented -3. . - Labs CBC & Chem 7: 01/10/18 05:29 01/10/18 05:29 Labs: Abnormal Lab Results - Last 24 Hours (Table) 01/09/18 01/09/18 01/10/18 Range/Units 17:16 20:32 05:29 WBC 12.5 H (3.8-10.6) k/uL RBC 3.00 L (3.80-5.40) m/uL Hgb 8.0 L (11.4-16.0) gm/dL Hct 26.7 L (34.0-46.0) % MCHC 29.9 L (31.0-37.0) g/dL RDW 16.5 H (11.5-15.5) % Plt Count 98 L (150-450) k/uL Neutrophils # 9.4 H (1.3-7.7) k/uL PT (9.0-12.0) sec INR (<1.2) BUN (7-17) mg/dL Glucose (74-99) mg/dL POC Glucose (mg/dL) 146 H 231 H (75-99) mg/dL 01/10/18 01/10/18 01/10/18 Range/Units 05:29 05:29 05:57 WBC (3.8-10.6) k/uL RBC (3.80-5.40) m/uL Hgb (11.4-16.0) gm/dL Hct (34.0-46.0) % MCHC (31.0-37.0) g/dL RDW (11.5-15.5) % Plt Count (150-450) k/uL Neutrophils # (1.3-7.7) k/uL PT 15.9 H (9.0-12.0) sec INR 1.7 H (<1.2) BUN 41 H (7-17) mg/dL Glucose 102 H (74-99) mg/dL POC Glucose (mg/dL) 110 H (75-99) mg/dL 01/10/18 Range/Units 11:47 WBC (3.8-10.6) k/uL RBC (3.80-5.40) m/uL Hgb (11.4-16.0) gm/dL Hct (34.0-46.0) % MCHC (31.0-37.0) g/dL RDW (11.5-15.5) % Plt Count (150-450) k/uL Neutrophils # (1.3-7.7) k/uL PT (9.0-12.0) sec INR (<1.2) BUN (7-17) mg/dL Glucose (74-99) mg/dL POC Glucose (mg/dL) 132 H (75-99) mg/dL Microbiology - Last 24 Hours (Table) 01/09/18 00:50 Urine Culture - Final Urine,Voided 01/08/18 21:00 Blood Culture Gram Stain - Preliminary Blood Blood Culture - Preliminary Coagulase Negative Staph 01/08/18 21:00 Blood Culture - Final Blood Assessment and Plan Plan: Assessment and plan #1 COPD exacerbation #2 history of hypertension #3 hyperlipidemia #4 history of degenerative joint disease Plan We will continue current dose of IV Lasix. Continue 7-1/2 mg of Coumadin, check lytes BUN creatinine PT INR in the morning. DNP note has been reviewed, I agree with a documented findings and plan of care. Patient was seen and examined.
[2018-01-10 16:52] LABS: Glucose,Whole Blood 131 mg/dL (75-99)
[2018-01-10] MEDS: MULTIVITAMINS, THERA 1 EACH TAB PO SCH (17:12)
[2018-01-10] MEDS: WARFARIN 7.5 MG TAB PO SCH (17:13)
[2018-01-10] MEDS: VITAMIN E (DL,TOCOPHERYL ACET) 400 UNIT CAP PO SCH (17:13)
[2018-01-10] MEDS ORDERED: METOPROLOL TARTRATE 25 MG TAB PO STA (19:09)
[2018-01-10] MEDS: ATORVASTATIN 20 MG TAB PO SCH (19:58)
[2018-01-10] MEDS: DOCUSATE 100 MG CAP PO SCH (19:59)
[2018-01-10] MEDS: CITALOPRAM HYDROBROMIDE 20 MG TAB PO SCH (19:59)
[2018-01-10] MEDS: cefTRIAXone IN SWFI 1,000 MG/10 ML SYRINGE IVP SCH (20:06)
[2018-01-10 20:46] LABS: Glucose,Whole Blood 148 mg/dL (75-99)
[2018-01-10] MEDS: LATANOPROST 0.005% OPHTH DROPS 2.5 ML BTL BOTH EYES SCH (21:11)
--- NOTE | 2018-01-10 22:34 | PN ---
PROGRESS NOTE DATE OF SERVICE: 01/10/2018. This 82-year-old woman was admitted with asthma acute exacerbation also had mild CHF also. The patient is being closely monitored at this time, but however the patient still had significant shortness of breath. Cardiology and pulmonology following the patient closely. A 2D echo with Doppler was done yesterday and the 2D echo showed evidence of ejection fraction 53%, possible mitral stenosis also. PAST MEDICAL HISTORY: Reviewed. REVIEW OF SYSTEMS: Cardio system: No angina. Respiratory: As mentioned earlier. GI: No nausea or vomiting. mentioned earlier. CURRENT MEDICATIONS ARE: 1. [place] 10 mg q.6h p.r.n. 2. DuoNeb q.i.d. and p.r.n. 3. Xanax 0.2. 4. Norvasc 5 mg p.o. b.i.d. 5. Lipitor 20 mg daily. 7. Os-Sae with vitamin D. 8. Rocephin 1 g daily. 9. Celexa. 10.Pepcid. 11.Duragesic patch q72 hours. 12.Lasix 40 mg IV b.i.d. 13.NovoLog. 14.Xalatan. 15.Synthroid. 16.Toprol-XL 25 mg daily. 17.KCl. 18.Requip. 19.Vancomycin. 20.Coumadin 7.5 mg daily. PHYSICAL EXAM: Patient is alert, oriented x3. Pulse 87, blood pressure 150/75, respiration 20, temperature 98.1, pulse ox 91% on 2 L. HEENT: Conjunctivae normal. Oral mucosa moist. Neck is no jugular venous distention. No carotid bruit. No lymph node enlargement. Breathing efforts are markedly increased. Cardiovascular systems: S1, S2 normal. Ejection systolic murmur. RESPIRATORY: Breath sounds diminished in the bases. Bilateral Scattered rhonchi and expiratory wheezing and crackles. ABDOMEN: Soft, nontender. No mass. Legs no edema no swelling. NERVOUS SYSTEM: Higher functions as mentioned earlier. Moves all four limbs. No focal deficits. Lymphatics: No lymph nodes palpable in the neck, axillae or groin. SKIN: No ulcer, rashes or bleeding. LABS: WBC 12.1, hemoglobin 8, otherwise glucose noted. ASSESSMENT: 1. Bronchial asthma acute exacerbation with acute purulent tracheobronchitis with possible acute pneumonia. 2. Congestive heart failure acute exacerbation acute on chronic diastolic dysfunction ejection fraction 50-55%. 3. Rule out mitral stenosis. 4. Acute hypoxic respiratory failure status post BiPAP. 5. History of cerebrovascular accident, transient ischemic attack. 6. History of gastroesophageal reflux disease. 7. Hypertension. 8. Hyperlipidemia. 9. History of degenerative joint disease. 10.History of hypothyroidism. 11.History of constipation. 12.History of colon cancer, status post surgery, chemotherapy and radiation. 13.History of rosacea. 14.History of glaucoma. 15.History of bowel resection. RECOMMENDATIONS AND DISCUSSION: Recommend to continue current medications, management and continue to monitor, continue bronchodilators, continue with the rest of the medications. Closely follow with Cardiology and pulmonology. Guarded prognosis because of multiple complex medical issues. Further recommendations to follow. MMODL / IJN: [id number] / MTDD
[2018-01-11 05:43] LABS: Glucose,Whole Blood 142 mg/dL (75-99)
[2018-01-11 06:39] LABS: Anisocytosis Slight; Basophils # (A) 0.1 k/uL (0-0.2); Basophils % (A) 1 %; Eosinophils # (A) 0.2 k/uL (0-0.7); Eosinophils % (A) 2 %; HCT 28.9 % (34.0-46.0); HGB 8.4 gm/dL (11.4-16.0); Hypochromasia Marked; Lymphocytes # (A) 2.5 k/uL (1.0-4.8); Lymphocytes % (A) 21 %; MCH 26.2 pg (25.0-35.0); MCV 90.3 fL (80.0-100.0); Mean Platelet Volume 9.9; Monocytes # (A) 0.7 k/uL (0-1.0); Monocytes % (A) 6 %; Neutrophils # (A) 8.6 k/uL (1.3-7.7); Neutrophils % (A) 70 %; Platelet Count 114 k/uL (150-450); RDW 16.2 % (11.5-15.5); WBC 12.4 k/uL (3.8-10.6)
[2018-01-11 06:41] LABS: INR 1.8 (<1.2); Prothrombin Time 16.3 sec (9.0-12.0)
[2018-01-11] MEDS: INSULIN ASPART 100 UNIT/ML 1 ML 10 ML VIAL SQ SCH ×4 (06:43→20:16)
[2018-01-11] MEDS: FUROSEMIDE 10 MG/ML 4 ML VIAL IV SCH (06:43)
[2018-01-11] MEDS: LEVOTHYROXINE 100 MCG TAB PO SCH (06:43)
[2018-01-11 06:57] LABS: Anion Gap 14 mmol/L; Blood Urea Nitrogen 37 mg/dL (7-17); Calcium 9.6 mg/dL (8.4-10.2); Carbon Dioxide 25 mmol/L (22-30); Chloride 101 mmol/L (98-107); Glucose 130 mg/dL (74-99); Potassium 4.7 mmol/L (3.5-5.1); Sodium 140 mmol/L (137-145)
[2018-01-11] MEDS: IPRATROPIUM-ALBUTEROL 3 ML NEB INHALATION SCH ×4 (08:29→20:30)
[2018-01-11] MEDS: SYMBICORT 160-4.5 MCG INHALER INHALATION SCH ×2 (08:29→20:30)
[2018-01-11] MEDS: amLODIPine 5 MG TAB PO SCH ×2 (10:26→20:17)
[2018-01-11] MEDS: METOPROLOL SUCCINATE (ER) 25 MG TAB.ER.24H PO SCH (10:26)
[2018-01-11] MEDS: FAMOTIDINE 20 MG TAB PO SCH ×2 (10:27→20:17)
[2018-01-11] MEDS: CALCIUM CARB-VIT D 500MG-200UN 1 EACH TAB PO SCH ×2 (10:27→20:17)
[2018-01-11] MEDS: POTASSIUM CHLORIDE ER 10 MEQ TAB.ER.PRT PO SCH (10:28)
[2018-01-11] MEDS: VANCOMYCIN 1,500 MG in SODIUM CHLORIDE 0.9% 250 ML IVPB SCH (10:34)
[2018-01-11 12:01] LABS: Glucose,Whole Blood 112 mg/dL (75-99)
--- NOTE | 2018-01-11 12:50 | PN ---
PROGRESS NOTE This patient was admitted with symptoms of shortness of breath. She is being treated for acute exacerbation of COPD and mild congestive cardiac failure. Patient is doing better. Denies much shortness of breath or cough. Patient is afebrile. Blood pressure is 148/67 mmHg. Respirations are not labored. First and second heart sounds are normal. Lungs reveal bilateral coarse rales which may be suggestive of pulmonary fibrosis. We will continue the current medications and start the patient on oral Lasix. MMODL / IJN: [id number] /
--- NOTE | 2018-01-11 16:23 | P.PN ---
Subjective Progress Note Date: 01/11/18 Principal diagnosis: Acute hypoxic respiratory failure secondary to an acute exacerbation of mild intermittent chronic bronchial asthma Consult dated 01/09/2018 This is an 82-year-old female who presented to the emergency department with complaints of increasing shortness of breath. Shortness of breath apparently was sudden in onset and started to occur about an hour prior to coming to the emergency room. In addition, she has some chest congestion. She was coughing a bit. Not producing any phlegm. Apparently the chest x-ray showed evidence of some fluid overload. The patient was admitted to [facility] but ended up in the ICU closer is no beds there. She is feeling a bit better today. Less short of breath. Denies any chest pain or chest discomfort. No palpitations. Not producing any phlegm. Not coughing up any blood. There is no fever or chills. No nausea vomiting or diarrhea. Essentially, her only complaint was that of shortness of breath. She does have both pulmonary and cardiac disease. Her past medical history includes COPD/asthma CVA GERD hyperlipidemia hypertension DJD pneumonia colon cancer and rosacea glaucoma pleurisy urinary tract infections and urinary incontinence as well as multiple surgical procedures. She apparently is a lifelong nonsmoker and so her lung disease likely represents chronic bronchial asthma as opposed emphysema/chronic bronchitis. She is feeling much better today. When she first came into the unit, she was on BiPAP. That was quickly weaned off the nasal O2. She is on nasal O2 at 4 L. She's getting a saline IV at 0.9. Progress note dated 01/10/2018 The patient is seen again today in follow-up on the [facility] care unit. She is awake and alert in no acute distress. She is resting comfortably in bed. She states she is breathing easier today as compared to yesterday. She is maintaining good O2 saturations in the upper 90s on 3 L/m per nasal cannula. She's been afebrile. White count 12.5. Hemoglobin 8.0. Platelet count 98. INR 1.7. Creatinine 1.00. He remains on IV Lasix 40 mg every 12 hours. Progress note dated 01/11/2018 The patient is seen again today in follow-up on the [facility] care unit. She is resting quite comfortably in bed. She is breathing easier today as compared to yesterday. No worsening shortness of breath, cough or congestion. No chills or night sweats. She is still somewhat dyspneic on minimal exertion. She is maintaining good O2 saturations in the 90s on 2 L/m per nasal cannula. She is afebrile. Hemodynamically stable. White count 12.4. Hemoglobin 8.4. INR 1.8. Creatinine 0.92. Objective - Vital Signs Vital signs: Vital Signs Temp 96.9 F L 01/11/18 12:00 Pulse 87 01/11/18 15:33 Resp 18 01/11/18 12:00 BP 128/53 01/11/18 12:00 Pulse Ox 96 01/11/18 12:00 Intake & Output 01/10/18 01/11/18 01/11/18 18:59 06:59 18:59 Intake Total 582 160 240 Output Total 650 400 Balance -68 -240 240 Weight 80.3 kg Intake: IV 160 NaCl @ 20 160 Oral 582 240 Output: Urine 650 400 Other: Voiding Method Bedpan Bedside Commode # Voids 2 2 2 # Bowel Movements 1 1 - Exam No acute distress, oriented 3. Currently on nasal O2 at 4 L. HEENT examination is grossly unremarkable. Mucous membranes are moist. No oral lesions. Neck supple. Full range of motion. No adenopathy thyromegaly or neck vein distention. Cardiovascular examination reveals regular rhythm rate. S1-S2 normal. No S3 or S4. No discernible murmur noted. Heart sounds are distant. Lungs reveal a few scattered bibasilar crackles. A few scattered rhonchi and some high-pitched wheezing. Breath sounds are equal bilaterally. Abdomen soft bowel sounds are heard. No masses or tenderness. Extremities are intact. No cyanosis clubbing or edema. Skin is without rash or lesion. Neurologic examination is brief but nonfocal. - Labs CBC & Chem 7: 01/11/18 06:12 01/11/18 06:12 Labs: Abnormal Lab Results - Last 24 Hours (Table) 01/10/18 01/10/18 01/11/18 Range/Units 16:49 20:45 05:42 WBC (3.8-10.6) k/uL RBC (3.80-5.40) m/uL Hgb (11.4-16.0) gm/dL Hct (34.0-46.0) % MCHC (31.0-37.0) g/dL RDW (11.5-15.5) % Plt Count (150-450) k/uL Neutrophils # (1.3-7.7) k/uL PT (9.0-12.0) sec INR (<1.2) BUN (7-17) mg/dL Glucose (74-99) mg/dL POC Glucose (mg/dL) 131 H 148 H 142 H (75-99) mg/dL 01/11/18 01/11/18 01/11/18 Range/Units 06:12 06:12 06:12 WBC 12.4 H (3.8-10.6) k/uL RBC 3.20 L (3.80-5.40) m/uL Hgb 8.4 L (11.4-16.0) gm/dL Hct 28.9 L (34.0-46.0) % MCHC 29.0 L (31.0-37.0) g/dL RDW 16.2 H (11.5-15.5) % Plt Count 114 L (150-450) k/uL Neutrophils # 8.6 H (1.3-7.7) k/uL PT 16.3 H (9.0-12.0) sec INR 1.8 H (<1.2) BUN 37 H (7-17) mg/dL Glucose 130 H (74-99) mg/dL POC Glucose (mg/dL) (75-99) mg/dL 01/11/18 Range/Units 12:00 WBC (3.8-10.6) k/uL RBC (3.80-5.40) m/uL Hgb (11.4-16.0) gm/dL Hct (34.0-46.0) % MCHC (31.0-37.0) g/dL RDW (11.5-15.5) % Plt Count (150-450) k/uL Neutrophils # (1.3-7.7) k/uL PT (9.0-12.0) sec INR (<1.2) BUN (7-17) mg/dL Glucose (74-99) mg/dL POC Glucose (mg/dL) 112 H (75-99) mg/dL Microbiology - Last 24 Hours (Table) 01/08/18 21:00 Blood Culture Gram Stain - Final Blood Blood Culture - Final Staphylococcus epidermidis 01/09/18 00:50 Urine Culture - Final Urine,Voided Assessment and Plan Assessment: Impression: #1 Acute exacerbation of chronic diastolic congestive heart failure. Preserved left ventricular systolic function with EF 50-55%. #2 Acute exacerbation of mild persistent asthma. #3 Acute hypoxic respiratory failure secondary to above. #4 Pulmonary hypertension. #5 History of CVA/TIA. #6 Hyperlipidemia. #7 Hypertension. #8 Hypothyroidism. Plan: The patient was seen and evaluated by Dr. Rain. She continues to improve. We' ll continue with her current treatment plan. We'll increase her activity as tolerated. We'll continue to follow. I, the cosigning physician, performed a history & physical examination of the patient. Lungs sounds have crackles in the posterior bases. Diminished.. Maintaining good O2 saturations in the 90s on 2 L/m per nasal cannula. I discussed the assessment and plan of care with my nurse practitioner, Michelle Mckee. I attest to the above note as dictated by her.
[2018-01-11] MEDS: FUROSEMIDE 40 MG TAB PO SCH (16:50)
[2018-01-11 16:59] LABS: Glucose,Whole Blood 137 mg/dL (75-99)
[2018-01-11] MEDS: WARFARIN 7.5 MG TAB PO SCH (18:09)
[2018-01-11] MEDS: MULTIVITAMINS, THERA 1 EACH TAB PO SCH (18:09)
[2018-01-11] MEDS: VITAMIN E (DL,TOCOPHERYL ACET) 400 UNIT CAP PO SCH (18:09)
[2018-01-11 20:14] LABS: Glucose,Whole Blood 157 mg/dL (75-99)
[2018-01-11] MEDS: ATORVASTATIN 20 MG TAB PO SCH (20:16)
[2018-01-11] MEDS: cefTRIAXone IN SWFI 1,000 MG/10 ML SYRINGE IVP SCH (20:16)
[2018-01-11] MEDS: LATANOPROST 0.005% OPHTH DROPS 2.5 ML BTL BOTH EYES SCH (20:17)
[2018-01-11] MEDS: DOCUSATE 100 MG CAP PO SCH (20:17)
[2018-01-11] MEDS: CITALOPRAM HYDROBROMIDE 20 MG TAB PO SCH (20:17)
--- NOTE | 2018-01-11 22:00 | PN ---
PROGRESS NOTE DATE OF SERVICE: 01/11/2018. INTERVAL HISTORY: This 82-year-old woman was admitted with acute asthma exacerbation as well as acute purulent tracheobronchitis and possible acute pneumonia also had CHF also. The patient also had a suspected mitral stenosis also. Multiple consultants including Pulmonary and Cardiology are following the patient closely. The patient also has some crackles. Dr. Rain is following the patient closely. No chest pain. No palpitations. No fever. REVIEW OF SYSTEMS: Cardiovascular as mentioned earlier. RESPIRATORY: As mentioned earlier. GI no nausea. : No dysuria. PHYSICAL EXAM: Alert and oriented x3. The pulse is 103, blood pressure 125/98, respiration 18, temperature 98.2, pulse ox 99% on 2 L. HEENT: Conjunctivae normal. Oral mucosa moist. Neck is no jugular venous distention. No carotid bruit. Cardiovascular systems: S1, S2 muffled. Respiration: Breath sounds diminished in the bases. Bilateral scattered rhonchi and crackles. Cardiovascular: Ejection systolic murmur present. ABDOMEN: Soft, nontender. No mass palpable. Legs: Minimal edema. Nervous system: Higher functions as mentioned earlier, moves all 4 limbs, no focal deficits. Lymphatics: No lymph nodes palpable in the neck, axillae or groin. SKIN: No ulcer, rash, bleeding. CURRENT MEDICATIONS: 1. [place] 10 mg q.6h p.r.n. 2. DuoNeb q.i.d. and p.r.n. 3. Xanax 0.25 q.i.d. 4. Norvasc 5 mg daily. 5. Lipitor 20 mg q.h.s. 6. Symbicort 160/4.5 two puffs b.i.d. 7. Os-Sae with vitamin D 1 p.o. b.i.d. 8. Rocephin 1 g daily. 9. Celexa 10 mg q.p.m. 10.Colace 200 mg q.h.s. 11.Pepcid 20 mg p.o. b.i.d. 12.Fentanyl patch 25 mcg q 72 hours. 13.Lasix 40 mg p.o. b.i.d. 15.Xalatan 0.05%. 16.Synthroid 100 mcg p.o. daily. 17.Toprol-XL 25 mg p.o. daily. 18.Vancomycin. 19.Multivitamins. 20.K-Dur. 21.Requip. 22.Vancomycin. 23.Vitamin D. 24.Coumadin. PHYSICAL EXAMINATION: Alert and oriented times three. Pulse 95. Blood pressure 110/59, respiration 18, temperature 98.2, pulse ox 98% on 2 L. HEENT conjunctivae normal. Oral mucosa moist. Neck is no jugular venous distention. No carotid bruit. No lymph node enlargement. CARDIOVASCULAR: S1, S2. RESPIRATORY: Breath sounds diminished in the bases. Bilateral scattered rhonchi and expiratory wheezing and crackles. Abdomen is soft, nontender. No mass palpable. Legs no edema and no swelling. Nervous system: Higher functions as mentioned earlier. Moves all 4 limbs. No focal motor or sensory deficits. Lymphatics: No lymph nodes palpable in the neck, axilla and groin. Skin: No ulcer, rash or bleeding. LABS: WBC 12.2, hemoglobin is 8.4. Other labs noted. Glucose noted. ASSESSMENT: 1. Bronchial asthma acute exacerbation with acute purulent tracheobronchitis with possible acute pneumonia. 2. Congestive heart failure, pneumonia, possibly gram-negative. 3. Congestive heart failure acute exacerbation with acute on chronic diastolic dysfunction, ejection fraction 50-55%. 4. Rule out mitral stenosis. 5. Acute hypoxic respiratory failure status post BiPAP. 6. History of cerebrovascular accident, transient ischemic attack. 7. History of gastroesophageal reflux disease. 8. Hypertension. 9. Hyperlipidemia. 10.History degenerative joint disease. 11.Hypothyroidism. 12.History of constipation. 13.History of colon cancer, status post surgery, chemotherapy radiation. 14.History of rosacea. 15.History of glaucoma. 16.History of bowel resection. 17.Left bundle block on the EKG. RECOMMENDATIONS AND DISCUSSION: I recommend to continue current medication, continue symptomatic treatment. Otherwise at this time continue the diuretics. Continue with symptomatic treatment. Otherwise, continue to monitor. Guarded prognosis. I would also recommend continue the broad- spectrum IV antibiotics. Monitor PT/INR closely. The blood culture showed Staph epi only. Further recommendations to follow. MMODL / IJN: [id number] / MTDD
[2018-01-12 06:02] LABS: Glucose,Whole Blood 129 mg/dL (75-99)
[2018-01-12] MEDS: INSULIN ASPART 100 UNIT/ML 1 ML 10 ML VIAL SQ SCH ×4 (06:20→21:16)
[2018-01-12] MEDS: LEVOTHYROXINE 100 MCG TAB PO SCH (06:58)
[2018-01-12] MEDS ORDERED: VANCOMYCIN TROUGH DUE 1 EACH MISC MISCELLANE ONE (08:00)
[2018-01-12 08:11] LABS: Anisocytosis Slight; Basophils % (A) 1 %; Eosinophils # (A) 0.3 k/uL (0-0.7); Eosinophils % (A) 4 %; HCT 26.6 % (34.0-46.0); Hypochromasia Marked; Lymphocytes # (A) 1.6 k/uL (1.0-4.8); Lymphocytes % (A) 22 %; MCH 26.7 pg (25.0-35.0); Monocytes # (A) 0.4 k/uL (0-1.0); Monocytes % (A) 5 %; Neutrophils # (A) 4.6 k/uL (1.3-7.7); Neutrophils % (A) 66 %; Poikilocytosis Slight; RBC 2.99 m/uL (3.80-5.40)
[2018-01-12 08:14] LABS: Platelet Count 93 k/uL (150-450)
[2018-01-12 08:18] LABS: INR 1.6 (<1.2); Prothrombin Time 14.8 sec (9.0-12.0)
[2018-01-12 08:20] LABS: Anion Gap 11 mmol/L; Blood Urea Nitrogen 28 mg/dL (7-17); Calcium 9.2 mg/dL (8.4-10.2); Carbon Dioxide 28 mmol/L (22-30); Chloride 100 mmol/L (98-107); Glucose 118 mg/dL (74-99); Potassium 3.8 mmol/L (3.5-5.1); Sodium 139 mmol/L (137-145)
[2018-01-12] MEDS: FUROSEMIDE 40 MG TAB PO SCH ×2 (08:34→15:45)
[2018-01-12] MEDS: amLODIPine 5 MG TAB PO SCH ×2 (08:35→21:16)
[2018-01-12] MEDS: FAMOTIDINE 20 MG TAB PO SCH ×2 (08:36→21:16)
[2018-01-12] MEDS: METOPROLOL SUCCINATE (ER) 25 MG TAB.ER.24H PO SCH (08:36)
[2018-01-12] MEDS: POTASSIUM CHLORIDE ER 10 MEQ TAB.ER.PRT PO SCH (08:36)
[2018-01-12] MEDS: CALCIUM CARB-VIT D 500MG-200UN 1 EACH TAB PO SCH ×2 (08:36→21:16)
[2018-01-12] MEDS: IPRATROPIUM-ALBUTEROL 3 ML NEB INHALATION SCH ×4 (08:47→20:43)
[2018-01-12] MEDS: SYMBICORT 160-4.5 MCG INHALER INHALATION SCH ×2 (08:47→20:43)
[2018-01-12] MEDS ORDERED: NON-FORMULARY DRUG (Alendronate Sodium [Fosamax] 70 MG) PO SCH (09:00)
--- NOTE | 2018-01-12 10:14 | P.PN ---
Subjective Progress Note Date: 01/12/18 Principal diagnosis: Shortness of breath, heart failure, asthma Progress note dated 01/12/2018 82-year-old female with a history of acute exacerbation of chronic diastolic CHF. She also has a history of chronic bronchial asthma which is mildly active. She also suffers some pulmonary hypertension CVA hyperlipidemia hypertension and hypothyroidism. The patient is doing better. Much less short of breath. Not ready for discharge. Her asthma is pretty well control at this time. Heart failure still a need some additional tuneup. She is short of breath. 3 on exertion. Denies any significant cough. Not producing any phlegm. Minimal wheezing. Much more short of breath with exertion. No fever no chills. No nausea vomiting or diarrhea. Objective - Vital Signs Vital signs: Vital Signs Temp 97.0 F L 01/12/18 08:05 Pulse 102 H 01/12/18 09:01 Resp 18 01/12/18 08:05 BP 115/50 01/12/18 08:05 Pulse Ox 97 01/12/18 08:05 Intake & Output 01/11/18 01/12/18 01/12/18 18:59 06:59 18:59 Intake Total 720 160 240 Output Total 1200 Balance 720 -1040 240 Weight 91.4 kg Intake: IV 160 NaCl @ 20 160 Oral 720 240 Output: Urine 1200 Other: Voiding Method Bedside Commode # Voids 2 3 # Bowel Movements 1 - Exam No acute distress, oriented 3. The patient currently remains on nasal O2 HEENT examination is grossly unremarkable. Mucous membranes are moist. No oral lesions. Neck supple. Full range of motion. No adenopathy thyromegaly or neck vein distention. Cardiovascular examination reveals regular rhythm rate. S1-S2 normal. No S3 or S4. No discernible murmur noted. Heart sounds are distant. Lungs reveal scattered bibasilar crackles. A few scattered rhonchi are also noted. No wheezes are appreciated. Breath sounds are equal bilaterally. Abdomen soft bowel sounds are heard. No masses or tenderness. Extremities are intact. No cyanosis clubbing or edema. Skin is without rash or lesion. Neurologic examination is brief but nonfocal. - Labs CBC & Chem 7: 01/12/18 07:28 01/12/18 07:28 Labs: Abnormal Lab Results - Last 24 Hours (Table) 01/11/18 01/11/18 01/11/18 Range/Units 12:00 16:44 20:12 RBC (3.80-5.40) m/uL Hgb (11.4-16.0) gm/dL Hct (34.0-46.0) % MCHC (31.0-37.0) g/dL RDW (11.5-15.5) % Plt Count (150-450) k/uL PT (9.0-12.0) sec INR (<1.2) BUN (7-17) mg/dL Glucose (74-99) mg/dL POC Glucose (mg/dL) 112 H 137 H 157 H (75-99) mg/dL 01/12/18 01/12/18 01/12/18 Range/Units 06:01 07:28 07:28 RBC 2.99 L (3.80-5.40) m/uL Hgb 8.0 L (11.4-16.0) gm/dL Hct 26.6 L (34.0-46.0) % MCHC 30.0 L (31.0-37.0) g/dL RDW 16.0 H (11.5-15.5) % Plt Count 93 L (150-450) k/uL PT 14.8 H (9.0-12.0) sec INR 1.6 H (<1.2) BUN (7-17) mg/dL Glucose (74-99) mg/dL POC Glucose (mg/dL) 129 H (75-99) mg/dL 01/12/18 Range/Units 07:28 RBC (3.80-5.40) m/uL Hgb (11.4-16.0) gm/dL Hct (34.0-46.0) % MCHC (31.0-37.0) g/dL RDW (11.5-15.5) % Plt Count (150-450) k/uL PT (9.0-12.0) sec INR (<1.2) BUN 28 H (7-17) mg/dL Glucose 118 H (74-99) mg/dL POC Glucose (mg/dL) (75-99) mg/dL Microbiology - Last 24 Hours (Table) 01/08/18 21:00 Blood Culture Gram Stain - Final Blood Blood Culture - Final Staphylococcus epidermidis Assessment and Plan Assessment: Assessment Shortness of breath, likely multifactorial, in part related to underlying diastolic CHF, as well as mild asthma exacerbation History of colon cancer History of CVA/TIA History of GERD Hyperlipidemia by history. Hypertension by history DJD History of pneumonia Hypothyroidism Multiple other medical problems and comorbidities Plan: Plan dated 01/09/2018 The patient's doing much better already. BiPAP has been weaned to nasal O2 at 4 L. Appropriate medications have been started. Chest x-rays have been reviewed. Labs have been reviewed. I will review the medications. Additional recommendations and suggestions are forthcoming. The patient could likely be discharged out of the unit later today. No additional recommendations are made. Plan dated 01/12/2018 The patient continues to show improvement. Her breathing is much improved. Still very short of breath on exertion. Labs x-rays a medications are all reviewed. The patient's been weaned to nasal O2 from BiPAP. We'll continue to follow. Likely discharge within the next 24-48 hours. Time with Patient: Less than 30
[2018-01-12 11:55] LABS: Glucose,Whole Blood 98 mg/dL (75-99)
[2018-01-12 11:55] LABS: Glucose,Whole Blood 105 mg/dL (75-99)
[2018-01-12] MEDS: VANCOMYCIN 1,500 MG in SODIUM CHLORIDE 0.9% 250 ML IVPB SCH (13:09)
[2018-01-12 16:43] LABS: Glucose,Whole Blood 125 mg/dL (75-99)
[2018-01-12] MEDS: WARFARIN 7.5 MG TAB PO SCH (17:14)
[2018-01-12] MEDS: MULTIVITAMINS, THERA 1 EACH TAB PO SCH (17:14)
[2018-01-12] MEDS: VITAMIN E (DL,TOCOPHERYL ACET) 400 UNIT CAP PO SCH (17:14)
--- NOTE | 2018-01-12 19:40 | PN ---
PROGRESS NOTE DATE OF SERVICE: 01/12/2018 This 82-year-old woman is admitted with bronchial asthma, acute exacerbation, acute purulent tracheobronchitis, improved significantly. No chest pain. No palpitations. No fever. EXAM: Alert and oriented times three. Pulse 88, blood pressure 140/59. Respirations 18, temperature 97.4, pulse ox 94% on 2 L. HEENT: Conjunctivae normal. Neck: No jugular venous distention. CARDIOVASCULAR: S1, S2 muffled. Respiratory: Breath sounds diminished in the bases. A few scattered rhonchi. No crackles. Abdomen is soft, nontender. No mass palpable. Legs are no edema. No swelling. Central nervous system: No focal deficits. LABS: WBC 7, hemoglobin is 8, vancomycin is 11.8. ASSESSMENT: 1. Bronchial asthma acute exacerbation with acute purulent tracheobronchitis with possible acute pneumonia possibly gram-negative. 2. Congestive heart failure acute exacerbation with acute on chronic diastolic dysfunction, ejection fraction 50-55%. 3. Possibly mitral annular calcification and mild to moderate mitral stenosis per Cardiology. 4. Acute hypoxic respiratory failure status post BiPAP. 5. History of cerebrovascular accident, transient ischemic attack. 6. History of gastroesophageal reflux disease. 7. Hypertension. 8. Hyperlipidemia. 9. History of degenerative joint disease. 10.History of hypothyroidism. 11.History of constipation. 12.History of colon cancer, status post surgery, chemotherapy, radiation. 13.History of rosacea. 14.History of glaucoma. 15.History of bowel resection. 16.Left bundle branch block on the EKG. RECOMMENDATIONS AND DISCUSSION: Recommend to continue current medications and symptomatic treatment. Otherwise at this time I would recommend the current medications and continue with diuretics. She is on p.o. diuretics. Increase ambulation. Otherwise, continue the rest of the medications. Monitor closely. Further recommendations to follow. MMODL / IJN: [id number] /
[2018-01-12 20:47] LABS: Glucose,Whole Blood 171 mg/dL (75-99)
[2018-01-12] MEDS: LATANOPROST 0.005% OPHTH DROPS 2.5 ML BTL BOTH EYES SCH (21:16)
[2018-01-12] MEDS: ATORVASTATIN 20 MG TAB PO SCH (21:16)
[2018-01-12] MEDS: DOCUSATE 100 MG CAP PO SCH (21:16)
[2018-01-12] MEDS: CITALOPRAM HYDROBROMIDE 20 MG TAB PO SCH (21:16)
[2018-01-12] MEDS: cefTRIAXone IN SWFI 1,000 MG/10 ML SYRINGE IVP SCH (21:42)
[2018-01-12] MEDS ORDERED: METOPROLOL TARTRATE 25 MG TAB PO STA (22:11)
[2018-01-13 06:22] LABS: Glucose,Whole Blood 118 mg/dL (75-99)
[2018-01-13] MEDS: INSULIN ASPART 100 UNIT/ML 1 ML 10 ML VIAL SQ SCH ×4 (06:22→21:07)
[2018-01-13 06:40] LABS: INR 1.6 (<1.2); Prothrombin Time 15.1 sec (9.0-12.0)
[2018-01-13 06:46] LABS: Basophils % (A) 1 %; Eosinophils # (A) 0.4 k/uL (0-0.7); Eosinophils % (A) 6 %; Hypochromasia Marked; Lymphocytes # (A) 1.5 k/uL (1.0-4.8); Lymphocytes % (A) 21 %; MCH 25.8 pg (25.0-35.0); MCHC 28.5 g/dL (31.0-37.0); MCV 90.6 fL (80.0-100.0); Mean Platelet Volume 9.2; Monocytes # (A) 0.4 k/uL (0-1.0); Monocytes % (A) 6 %; Neutrophils # (A) 4.4 k/uL (1.3-7.7); Neutrophils % (A) 64 %; Platelet Count 110 k/uL (150-450); RBC 3.09 m/uL (3.80-5.40); RDW 15.9 % (11.5-15.5); WBC 6.9 k/uL (3.8-10.6)
[2018-01-13] MEDS: LEVOTHYROXINE 100 MCG TAB PO SCH (06:47)
[2018-01-13 06:49] LABS: Anion Gap 9 mmol/L; Blood Urea Nitrogen 29 mg/dL (7-17); Carbon Dioxide 31 mmol/L (22-30); Chloride 101 mmol/L (98-107); Glucose 108 mg/dL (74-99); Potassium 4.1 mmol/L (3.5-5.1); Sodium 141 mmol/L (137-145)
[2018-01-13] MEDS: amLODIPine 5 MG TAB PO SCH ×2 (07:42→21:10)
[2018-01-13] MEDS: FAMOTIDINE 20 MG TAB PO SCH (07:42)
[2018-01-13] MEDS: FUROSEMIDE 40 MG TAB PO SCH ×2 (07:43→16:43)
[2018-01-13] MEDS: CALCIUM CARB-VIT D 500MG-200UN 1 EACH TAB PO SCH ×2 (07:43→21:10)
[2018-01-13] MEDS: HYDROcodone/APAP 10-325MG 1 EACH TAB PO PRN ×2 (07:44→14:37)
[2018-01-13] MEDS: POTASSIUM CHLORIDE ER 10 MEQ TAB.ER.PRT PO SCH (07:44)
[2018-01-13] MEDS: METOPROLOL SUCCINATE (ER) 25 MG TAB.ER.24H PO SCH (07:44)
[2018-01-13] MEDS: SYMBICORT 160-4.5 MCG INHALER INHALATION SCH ×2 (09:29→20:28)
[2018-01-13] MEDS: IPRATROPIUM-ALBUTEROL 3 ML NEB INHALATION SCH ×4 (09:29→20:28)
[2018-01-13 11:35] LABS: Glucose,Whole Blood 153 mg/dL (75-99)
[2018-01-13] MEDS: CEFUROXIME 250 MG TAB PO SCH ×2 (14:38→21:10)
[2018-01-13] MEDS: VANCOMYCIN 1,500 MG in SODIUM CHLORIDE 0.9% 250 ML IVPB SCH (14:43)
--- NOTE | 2018-01-13 15:03 | P.PN ---
Subjective Progress Note Date: 01/13/18 82-year-old female patient is being seen in follow-up. The patient is less for increased shortness of breath. The patient was diagnosed having an acute exacerbation of CHF/diastolic dysfunction addition to an acute asthma exacerbation. This patient also has multiple other medical comorbidities including previous history of CVA, hypertension, hyperlipidemia, hypothyroidism and she is a nonsmoker. She is doing better. She has some limited crackles in lung bases on today's examination. PT/INR still subtherapeutic at 1.6. Renal function stable with a creatinine of 0.8. She is afebrile hemodynamically stable. She has been switched to oral Ceftin. The patient is also on Lasix 40 mg by mouth twice a day. He is on DuoNeb about symptoms [id number]. No other significant events over the past 24 hours. Objective - Vital Signs Vital signs: Vital Signs Temp 98.2 F 01/13/18 12:00 Pulse 90 01/13/18 13:36 Resp 18 01/13/18 12:00 BP 132/64 01/13/18 12:00 Pulse Ox 94 L 01/13/18 12:00 Intake & Output 01/12/18 01/13/18 01/13/18 18:59 06:59 18:59 Intake Total 720 140 Balance 720 140 Weight 89.6 kg Intake: IV 140 NaCl @ 20 140 Oral 720 Other: Voiding Method Bedside Commode # Voids 3 1 # Bowel Movements 2 - Exam No acute distress, oriented 3. The patient currently remains on nasal O2 HEENT examination is grossly unremarkable. Mucous membranes are moist. No oral lesions. Neck supple. Full range of motion. No adenopathy thyromegaly or neck vein distention. Cardiovascular examination reveals regular rhythm rate. S1-S2 normal. No S3 or S4. No discernible murmur noted. Heart sounds are distant. Lungs reveal scattered bibasilar crackles. A few scattered rhonchi are also noted. No wheezes are appreciated. Breath sounds are equal bilaterally. Abdomen soft bowel sounds are heard. No masses or tenderness. Extremities are intact. No cyanosis clubbing or edema. Skin is without rash or lesion. Neurologic examination is brief but nonfocal. - Labs CBC & Chem 7: 01/13/18 06:19 01/13/18 06:19 Labs: Abnormal Lab Results - Last 24 Hours (Table) 01/12/18 01/12/18 01/13/18 Range/Units 16:31 20:44 06:19 RBC 3.09 L (3.80-5.40) m/uL Hgb 8.0 L (11.4-16.0) gm/dL Hct 28.0 L (34.0-46.0) % MCHC 28.5 L (31.0-37.0) g/dL RDW 15.9 H (11.5-15.5) % Plt Count 110 L (150-450) k/uL PT (9.0-12.0) sec INR (<1.2) Carbon Dioxide (22-30) mmol/L BUN (7-17) mg/dL Glucose (74-99) mg/dL POC Glucose (mg/dL) 125 H 171 H (75-99) mg/dL 01/13/18 01/13/18 01/13/18 Range/Units 06:19 06:19 06:20 RBC (3.80-5.40) m/uL Hgb (11.4-16.0) gm/dL Hct (34.0-46.0) % MCHC (31.0-37.0) g/dL RDW (11.5-15.5) % Plt Count (150-450) k/uL PT 15.1 H (9.0-12.0) sec INR 1.6 H (<1.2) Carbon Dioxide 31 H (22-30) mmol/L BUN 29 H (7-17) mg/dL Glucose 108 H (74-99) mg/dL POC Glucose (mg/dL) 118 H (75-99) mg/dL 01/13/18 Range/Units 11:27 RBC (3.80-5.40) m/uL Hgb (11.4-16.0) gm/dL Hct (34.0-46.0) % MCHC (31.0-37.0) g/dL RDW (11.5-15.5) % Plt Count (150-450) k/uL PT (9.0-12.0) sec INR (<1.2) Carbon Dioxide (22-30) mmol/L BUN (7-17) mg/dL Glucose (74-99) mg/dL POC Glucose (mg/dL) 153 H (75-99) mg/dL Assessment and Plan Plan: Assessment 1 acute shortness of breath secondary to CHF/asthma exacerbation. The patient gradually improving and overall pulmonary status improved compared to a few days back 2 CHF with diastolic dysfunction with secondary exacerbation, the patient's ejection fraction is at 50-55% and the patient has moderate degree of mitral regurgitation, [id number] TR, moderate degree of pulmonary hypertension. 3 bronchial asthma 4 colon cancer 5 hypertension 6 hyperlipidemia 7 hypothyroidism 8 acid reflux 9 degenerative arthritis 10 subtherapeutic PT/INR. Plan The patient is doing better. Continue oral Lasix. Continue adjusting Coumadin 20 achieve an INR between 2 and 3. Pulmonary status is stable. Asthma itself is a low contributing factor for shortness of breath. She has Symbicort on outpatient basis along with poor air rescue inhaler that she can utilize as needed. We'll continue to follow.
--- NOTE | 2018-01-13 16:11 | CONS ---
CONSULTATION DATE OF SERVICE: 01/13/2018. REASON FOR CONSULTATION: Positive blood culture and antibiotic recommendation. HISTORY OF PRESENT ILLNESS: The patient is an 82-year-old female who presented to the ER at [facility] on 01/08/2018 with chief complaints of increasing shortness of breath, symptoms had been going on for about a few hours before she was in the hospital with most of a sudden onset. The patient denies having any URI symptoms prior to that. The patient did have some inhalers at home without any improvement and she presented to the ER. Apparently on arrival to the ER, the patient had significant respiratory distress. The patient did have a chest x-ray, shows probably new mild heart failure compared to the last exam. Repeat x-rays on January 09 did show overall stable findings with fine CHF exacerbation. The patient did have a fever when she was in the hospital of 101.5 degrees Fahrenheit, however, subsequently the fever has resolved. On arrival to the ER, the patient's white count was normal 10.3, subsequently up to 12.5, however, is down to 6.9. No sputum cultures were obtained. She did have blood cultures positive coming back gram positive cocci. Hence vancomycin was added and Infectious Disease was consulted for further recommendation regarding antibiotic therapy. The patient has been on Rocephin since admission to the hospital. The patient did mention that her breathing has improved. She has mild cough which is dry in nature. Did not bring up any sputum. No chest pain. No nausea, no vomiting. No abdominal pain and no diarrhea. REVIEW OF SYSTEMS: Constitutional: Positive for weakness and fever on admission, however, since has resolved. Eyes: No complaint. ENT no complaint. Respiratory as per HPI. Cardiovascular as per HPI. Genitourinary: No complaint. Gastrointestinal: No complaint. Musculoskeletal: No complaint. Integumentary: No complaint. Psychological: No complaint. Endocrine: No complaint. Neurologic: No complaint. PAST MEDICAL HISTORY: Significant for asthma, CVA, TIA, gastroesophageal reflux disease, hypertension, hyperlipidemia, osteoarthritis, pneumonia, hypothyroidism. PAST SURGICAL HISTORY: Bowel resection, left hip IM nailing, right hand surgery, bilateral cataract, colonoscopy with polypectomy, right knee arthroscopy. SOCIAL HISTORY: No history of smoking, drinking or drug use. FAMILY HISTORY: Father history of liver disease, colon, mother history of brain aneurysm. ALLERGIES: SULFAMETHOXAZOLE AND TRIMETHOPRIM. MEDICATIONS: The patient is currently on [place], DuoNeb, Xanax, Norvasc, Lipitor, Symbicort, Os-Sae with D, Rocephin, Celexa, Colace, Pepcid, Duragesic patch, Lasix NovoLog, Synthroid, Toprol-XL, Theragran, K-Dur, Requip and Coumadin. EXAMINATION: Blood pressure is 132/64, pulse of 90, temperature 98.2. She is 94% on 1 L nasal cannula. General description is an elderly female up in the bed in no distress. No tachypnea or accessory muscles of respiration use. HEENT: Shows pallor. No scleral icterus. Oral mucosa membranes moist. No significant erythema or thrush. Neck trachea central, no thyromegaly. Lungs unlabored breathing, decreased intensity of breath sounds. No wheeze or crackles. Heart S1, S2. Regular rate and rhythm. Abdomen soft. No tenderness. No guarding or rigidity. EXTREMITIES: No edema of the feet. Examination of the skin shows multiple bruises. No rashes or mass palpable. Neurological: Patient is awake, alert, and oriented times three. Mood and affect normal. LABS: Hemoglobin 8, white count 6.9 with a BUN of 29, creatinine 0.80. Electrolytes have been normal. Blood culture with Staph epi. Repeat ordered which is currently pending. Chest report as mentioned above. DIAGNOSTIC IMPRESSION/PLAN: 1. Patient with a positive blood culture finalized and Staph epi more likely skin contamination. No clinical disease to go along with it. Repeat blood culture has been ordered which are currently pending at this point. No need for any specific antibiotic therapy for the same. 2. Patient admitted to the hospital with increasing shortness of breath. She did have fever at that time with a question of tracheobronchitis or early clinical pneumonia with overall improvement on the Rocephin more likely pointing towards the community- acquired pathogen. 3. Patient with poor IV access currently with no IV. PLAN: 1. Discontinue vancomycin. 2. We will discontinue the Rocephin in view of no IV access. 3. We will switch over to Ceftin 500 mg twice a day. The patient will need for another week. 4. We will follow up on the clinical condition and further adjust medication if needed. 5. Plan of care discussed in detail with the nurse practitioner for the admitting team. MMBERNARDOL / IJN: [id number] /
[2018-01-13] MEDS: VITAMIN E (DL,TOCOPHERYL ACET) 400 UNIT CAP PO SCH (16:43)
[2018-01-13] MEDS: MULTIVITAMINS, THERA 1 EACH TAB PO SCH (16:43)
[2018-01-13] MEDS: WARFARIN 7.5 MG TAB PO SCH (16:44)
[2018-01-13 17:09] LABS: Glucose,Whole Blood 201 mg/dL (75-99)
[2018-01-13 20:59] LABS: Glucose,Whole Blood 126 mg/dL (75-99)
[2018-01-13] MEDS: DOCUSATE 100 MG CAP PO SCH (21:10)
[2018-01-13] MEDS: LATANOPROST 0.005% OPHTH DROPS 2.5 ML BTL BOTH EYES SCH (21:10)
[2018-01-13] MEDS: CITALOPRAM HYDROBROMIDE 20 MG TAB PO SCH (21:10)
[2018-01-13] MEDS: ATORVASTATIN 20 MG TAB PO SCH (21:10)
--- NOTE | 2018-01-14 03:05 | PN ---
PROGRESS NOTE DATE OF SERVICE: 01/13/2018 This 82-year-old woman is admitted with bronchial asthma acute exacerbation also had CHF. The patient is being closely monitored. No chest pain. No palpitation. Home oxygen is being arranged. EXAM: Alert and oriented times three. Pulse 88, blood pressure 100/50, respiration 18, temperature 98.2, pulse ox 94% on 1.5 L. HEENT: Conjunctivae normal. Oral mucosa moist. Neck is no jugular venous distention. Cardiovascular: S1, S2 muffled. Respiratory: Breath sounds diminished in the bases. A few scattered rhonchi and crackles. Abdomen is soft, nontender. Legs are no edema, no swelling. Central nervous system: No focal deficits. LABS: Hemoglobin 8. INR 1.7. Other labs are noted. ASSESSMENT: 1. Bronchial asthma acute exacerbation with acute purulent tracheobronchitis with possible acute pneumonia and gram-negative. 2. Congestive heart failure acute exacerbation acute on chronic diastolic dysfunction, ejection fraction 50-55%. 3. Possible mitral annular calcification, mild to moderate mitral stenosis per Cardiology. 4. Acute hypoxic respiratory failure status post BiPAP. 5. History of cerebrovascular accident, transient ischemic attack. 6. History of gastroesophageal reflux disease. 7. Hypertension. 8. Chronic hypoxic respiratory failure. 9. Hyperlipidemia. 10.History of degenerative joint disease. 11.Hypothyroidism. 12.Constipation. RECOMMENDATIONS AND DISCUSSION: Recommend to continue current management. Symptomatic treatment. Otherwise, I recommend the patient to be evaluated for home O2. Continue rest of medications and further recommendations to follow. Prognosis guarded. MMODL / IJN: [id number] /
[2018-01-14 07:51] VITALS: RESP 16
[2018-01-14] MEDS: LEVOTHYROXINE 100 MCG TAB PO SCH (07:51)
[2018-01-14 07:55] LABS: Glucose,Whole Blood 135 mg/dL (75-99)
[2018-01-14] MEDS ORDERED: FAMOTIDINE 20 MG TAB PO SCH (09:00)
[2018-01-14] MEDS: INSULIN ASPART 100 UNIT/ML 1 ML 10 ML VIAL SQ SCH ×2 (09:51→12:32)
[2018-01-14] MEDS: FUROSEMIDE 40 MG TAB PO SCH (09:55)
[2018-01-14] MEDS: POTASSIUM CHLORIDE ER 10 MEQ TAB.ER.PRT PO SCH (09:55)
[2018-01-14] MEDS: METOPROLOL SUCCINATE (ER) 25 MG TAB.ER.24H PO SCH (09:55)
[2018-01-14] MEDS: CALCIUM CARB-VIT D 500MG-200UN 1 EACH TAB PO SCH (09:56)
[2018-01-14] MEDS: CEFUROXIME 250 MG TAB PO SCH (09:56)
[2018-01-14] MEDS: amLODIPine 5 MG TAB PO SCH (09:56)
[2018-01-14] MEDS: SYMBICORT 160-4.5 MCG INHALER INHALATION SCH (09:58)
[2018-01-14] MEDS: IPRATROPIUM-ALBUTEROL 3 ML NEB INHALATION SCH ×3 (09:58→16:07)
[2018-01-14 11:12] LABS: Glucose,Whole Blood 119 mg/dL (75-99)
--- NOTE | 2018-01-14 14:21 | PN ---
PROGRESS NOTE DATE OF SERVICE: 01/14/2018 REASON FOR FOLLOWUP: 1. Positive blood culture. 2. Tracheobronchitis. INTERVAL HISTORY: The patient is afebrile. She seemed to breathing more comfortably, denies having any chest pain, occasional cough which is dry in nature. No nausea, vomiting. No abdominal pain, no diarrhea. PHYSICAL EXAMINATION: Blood pressure 155/57 with a pulse of 96, temperature 98.4, she is 96% on 2 L nasal cannula. General description is an elderly female up in the chair in no distress. RESPIRATORY SYSTEM: Unlabored breathing, decreased breath sounds, no wheeze. HEART: S1, S2. Regular rate and rhythm. ABDOMEN: Soft, no tenderness. EXTREMITIES: No edema of the feet. LABS: No new labs have been obtained today. Blood culture repeat 01/12 has been negative. DIAGNOSTIC IMPRESSION AND PLAN: 1. Patient positive with Staph epi likely skin contamination. Patient has no clinical disease to go along with it. Currently off vancomycin. 2. Patient admitted to the hospital with shortness of breath and cough with question of tracheobronchitis/early pneumonia. Overall improvement on Rocephin, currently on p.o. Ceftin. Should continue for about 5 to 7 more days to finish a course of therapy. Continue supportive care. MMODL / IJN: [id number] /
[2018-01-14 14:37] VITALS: BP 150/67; PULSE 95; TEMP 98.2
--- NOTE | 2018-01-14 15:10 | P.PN ---
<Maya Calderón M - Last Filed: 01/14/18 14:55> Subjective Progress Note Date: 01/14/18 Principal diagnosis: Acute shortness of breath secondary to CHF/asthma exacerbation Progress note dated 01/13/2018 82-year-old female patient is being seen in follow-up. The patient is less for increased shortness of breath. The patient was diagnosed having an acute exacerbation of CHF/diastolic dysfunction addition to an acute asthma exacerbation. This patient also has multiple other medical comorbidities including previous history of CVA, hypertension, hyperlipidemia, hypothyroidism and she is a nonsmoker. She is doing better. She has some limited crackles in lung bases on today's examination. PT/INR still subtherapeutic at 1.6. Renal function stable with a creatinine of 0.8. She is afebrile hemodynamically stable. She has been switched to oral Ceftin. The patient is also on Lasix 40 mg by mouth twice a day. He is on DuoNeb about symptoms [id number]. No other significant events over the past 24 hours. On 01/14/2018 patient continues to improve. Denies any worsening shortness of breath. She is maintaining negative fluid balance, -560 mL in the last 24 hours. She remains on 2 L per nasal cannula with O2 sat at 96%. Home oxygen has been arranged for patient after discharge. Lung sounds other for minimal crackles over left lower base. Patient remains afebrile. Blood cultures were positive for Staphylococcus epidermidis on 01/08/2018, patient did have follow- up blood cultures which showed no growth at the 24-hour ronda. Urine culture is negative. has been on oral Ceftin, nebulized treatments, Symbicort, and oral Lasix, in addition to Coumadin. INR today is 1.6. Objective - Vital Signs Vital signs: Vital Signs Temp 98.2 F 01/14/18 14:36 Pulse 95 01/14/18 14:36 Resp 16 01/14/18 14:36 BP 150/67 01/14/18 14:36 Pulse Ox 96 01/14/18 14:36 Intake & Output 01/13/18 01/14/18 01/14/18 18:59 06:59 18:59 Intake Total 270 Output Total 560 Balance -560 270 Intake: Oral 270 Output: Urine 560 Other: Voiding Method Bedside Commode Toilet Bedside Commode # Voids 2 1 1 # Bowel Movements 1 - Exam No acute distress, oriented 3. The patient currently remains on nasal O2 HEENT examination is grossly unremarkable. Mucous membranes are moist. No oral lesions. Neck supple. Full range of motion. No adenopathy thyromegaly or neck vein distention. Cardiovascular examination reveals regular rhythm rate. S1-S2 normal. No S3 or S4. No discernible murmur noted. Heart sounds are distant. Lungs sounds reveal a few scattered rales over left posterior lower base Abdomen soft bowel sounds are heard. No masses or tenderness. Extremities are intact. No cyanosis clubbing or edema. Skin is without rash or lesion. Neurologic examination is brief but nonfocal. - Labs CBC & Chem 7: 01/13/18 06:19 01/13/18 06:19 Labs: Abnormal Lab Results - Last 24 Hours (Table) 01/13/18 01/13/18 01/14/18 Range/Units 16:46 20:57 07:54 POC Glucose (mg/dL) 201 H 126 H 135 H (75-99) mg/dL 01/14/18 Range/Units 11:10 POC Glucose (mg/dL) 119 H (75-99) mg/dL Microbiology - Last 24 Hours (Table) 01/12/18 22:16 Blood Culture - Preliminary Blood No Growth after 24 hours Assessment and Plan Plan: Assessment: 1 acute shortness of breath secondary to CHF/asthma exacerbation. Patient continues to improve 2 CHF with diastolic dysfunction with secondary exacerbation, the patient's ejection fraction is at 50-55% and the patient has moderate degree of mitral regurgitation, [id number] TR, moderate degree of pulmonary hypertension. 3 bronchial asthma 4 colon cancer 5 hypertension 6 hyperlipidemia 7 hypothyroidism 8 acid reflux 9 degenerative arthritis 10 subtherapeutic PT/INR. Plan Patient continues to improve, vital signs remain stable, she is maintaining negative fluid balance. Continues on oral Lasix, continues on oral Ceftin. Denies any worsening dyspnea, she has been ambulating with a walker, tolerating activity well. From pulmonary standpoint patient is stable for discharge home today, she has Symbicort and pro-air at home, she will continue a 7 day course of Ceftin 500 mg twice a day at home, in addition to diuretics and anticoagulation per cardiology recommendations. She will need follow-up appointment Dr. Garcia in the office in one week I performed a history & physical examination of the patient and discussed their management with my nurse practitioner, Maya Calderón. I reviewed the nurse practitioner's note and agree with the documented findings and plan of care. Lung sounds are positive for crackles over left lower base. The findings and the impression was discussed with the patient. I attest to the documentation by the nurse practitioner. Time with Patient: Less than 30 <Dagoberto Patel - Last Filed: 01/15/18 17:15> Objective - Vital Signs Vital signs: Vital Signs Temp 98.2 F 01/14/18 14:36 Pulse 95 01/14/18 14:36 Resp 16 01/14/18 14:36 BP 150/67 01/14/18 14:36 Pulse Ox 96 01/14/18 14:36 Intake & Output 01/14/18 01/15/18 01/15/18 18:59 06:59 18:59 Intake Total 270 Balance 270 Intake: Oral 270 Other: Voiding Method Toilet Bedside Commode # Voids 1 - Labs CBC & Chem 7: 01/13/18 06:19 01/13/18 06:19 Labs: Microbiology - Last 24 Hours (Table) 01/12/18 22:16 Blood Culture - Preliminary Blood No Growth after 48 hours Assessment and Plan Plan: This is a joint evaluation that was done along with the nurse practitioner. The patient is feeling well. CHF has been optimized. No magistral distress. Agree on the discharge for today on a course of Ceftin he had she'll continue Symbicort and Proventil rescue inhaler lasted basis.
--- NOTE | 2018-01-14 23:15 | DS ---
DISCHARGE SUMMARY DATE OF SERVICE: 01/14/2018 FINAL DIAGNOSES: 1. Bronchial asthma, acute exacerbation, with acute purulent tracheobronchitis with possible acute pneumonia and Gram-negative. 2. Congestive heart failure, acute exacerbation, with acute on chronic diastolic dysfunction, ejection fraction 50% to 55%. 3. Possible mitral annular calcification, mild to moderate mitral stenosis per Cardiology. 4. Acute hypoxic respiratory failure, status post BiPAP. 5. Chronic hypoxic respiratory failure. 6. History of cerebrovascular accident, transient ischemic attack. 7. History of gastroesophageal reflux disease. 8. Hypertension. 9. Hyperlipidemia. 10.History of degenerative joint disease. 11.Hypothyroidism. 12.Constipation. DISCHARGE DISPOSITION: The patient will be discharged in stable condition with guarded prognosis. HISTORY OF PRESENT ILLNESS: This 82-year-old woman with a past medical history of multiple medical problems was admitted with shortness of breath which was multifactorial. Patient was treated for COPD and CHF, improved significantly. The patient was also found to be hypoxic , and home O2 was arranged. The patient will discharged in stable condition with guarded prognosis. Vitals are stable. CARDIOVASCULAR SYSTEM: S1, S2 muffled. RESPIRATORY SYSTEM: A few scattered rhonchi. ABDOMEN: Soft. NERVOUS SYSTEM: No focal deficit. DISCHARGE ADVICE AND MEDICATIONS: 1. Diet is cardiac. 2. Activity limited until followup. 3. Follow up with Dr. Tanika Singh in one week. 4. Follow up with Dr. Maya in 2 to 3 days. 5. Follow up with Dr. Garcia as advised. 6. Albuterol 2 puffs q.i.d. p.r.n. 7. Fosamax 70 mg p.o. Saturday. 8. Xanax 0.5 at bedtime. 9. Norvasc 5 mg p.o. b.i.d. 10.Symbicort 2 puffs b.i.d. 11.Calcium carbonate 1 tablet p.o. b.i.d. 12.Ceftin 500 mg p.o. b.i.d. for one week. 13.Celexa 20 mg p.o. at bedtime. 14.Colace 200 mg at bedtime. 15.Pepcid 20 mg p.o. b.i.d. 16.Fentanyl 25 mcg q.72 hours. 17.Lasix 40 mg p.o. b.i.d. 18.Hydrocodone 1 tablet q.6 p.r.n. 19.Xalatan 0.05% one drop both eyes. 20.Synthroid 100 mcg p.o. daily. 21.Toprol XL 25 mg p.o. daily. 22.Multivitamins 1 p.o. daily. 23.K-Dur 10 mEq p.o. daily. 24.Requip 2 mg p.o. at bedtime. 25.Zocor 40 mg at bedtime. 26.Vitamin E 400 mg p.o. daily. 27.Coumadin 7.5 mg p.o. daily. Once again, the patient will be discharged in stable condition with guarded prognosis. MMODL / IJN: [id number] / MTDD
== END 2018-01-14 15:50 | disposition home or self-care (01) | DRG 291 ==
LOC: EC 19:16 → 6ICU 21:00 → 6SEL 01-09 22:06 → 3SUR 01-14 01:07
PROVIDERS: ADMIT Hospitalist; ATTEND Hospitalist
DX: I11.0 Hypertensive heart disease with heart failure (principal); J96.21 Acute and chronic respiratory failure with hypoxia; J18.9 Pneumonia, unspecified organism; J44.0 Chronic obstructive pulmonary disease with (acute) lower respiratory infection; I27.20 Pulmonary hypertension, unspecified; I08.1 Rheumatic disorders of both mitral and tricuspid valves; J45.31 Mild persistent asthma with (acute) exacerbation; J44.1 Chronic obstructive pulmonary disease with (acute) exacerbation; I44.7 Left bundle-branch block, unspecified; E03.9 Hypothyroidism, unspecified; E78.5 Hyperlipidemia, unspecified; G25.81 Restless legs syndrome; H40.9 Unspecified glaucoma; I25.10 Atherosclerotic heart disease of native coronary artery without angina pectoris; I50.33 Acute on chronic diastolic (congestive) heart failure; I73.9 Peripheral vascular disease, unspecified; K21.9 Gastro-esophageal reflux disease without esophagitis; K59.00 Constipation, unspecified; R00.0 Tachycardia, unspecified; R01.1 Cardiac murmur, unspecified; M19.90 Unspecified osteoarthritis, unspecified site; Z79.01 Long term (current) use of anticoagulants; Z79.51 Long term (current) use of inhaled steroids; Z79.83 Long term (current) use of bisphosphonates; Z79.899 Other long term (current) drug therapy; Z85.038 Personal history of other malignant neoplasm of large intestine; Z86.73 Personal history of transient ischemic attack (TIA), and cerebral infarction without residual deficits; Z87.01 Personal history of pneumonia (recurrent); Z87.891 Personal history of nicotine dependence; Z90.49 Acquired absence of other specified parts of digestive tract; Z79.891 Long term (current) use of opiate analgesic; Z88.1 Allergy status to other antibiotic agents; Z81.1 Family history of alcohol abuse and dependence; Z88.2 Allergy status to sulfonamides; Z98.41 Cataract extraction status, right eye; Z98.42 Cataract extraction status, left eye; Z86.010 Personal history of colon polyps
CPT/HCPCS: 36415; 71045; 80048; 80053; 80202; 81003; 82550; 82553; 83735; 83880; 84484; 85025; 85610; 85730; 87040; 87077; 87086; 87186; 93005; 93306; 94640; 94660; 94760; 96365; 96366; 96375; 99291

== ENCOUNTER 2018-03-27 10:38 | Emergency (ER) | payer MEDICARE ==
[2018-03-27] MEDS ORDERED: HYDROcodone/APAP 5-325MG 1 EACH TAB PO STA (11:49)
--- NOTE | 2018-03-27 11:55 | XR ---
EXAMINATION TYPE: XR forearm RT, XR wrist complete RT DATE OF EXAM: 03/27/2018 CLINICAL HISTORY: Fall injury with pain TECHNIQUE: Two views of the right forearm are obtained. 3 views of right wrist are acquired. COMPARISON: None. FINDINGS: Osseous structures are demineralized. There is comminuted minimally displaced intra-articul ar fracture through distal radial meta-epiphysis. There is comminuted minimally displaced likely intr a-articular fracture through distal radial meta-epiphysis. There is abnormal dorsal angulation of the distal radius. No definitive additional proximal fracture in the right forearm is seen. Radial head is slightly susp icious, advise correlation with direct right elbow x-rays. 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 There is suspected fusion of the distal carpal row. Thumb deformity is partially imaged. IMPRESSION: There are comminuted minimally displaced articular fractures distal right radius and uln a. (Initial encounter closed type post traumatic fracture).
--- NOTE | 2018-03-27 12:03 | ED ---
General Adult HPI - General Chief complaint: Fall Stated complaint: Fall Time Seen by Provider: 03/27/18 10:46 Source: patient, family, RN notes reviewed, old records reviewed Mode of arrival: wheelchair Limitations: no limitations - History of Present Illness Initial comments: This is an 82-year-old female the ER today. Patient's presented today for evaluation regards to fall. Patient had a trip and fall. Patient has history of multiple falls. Patient's complaining of right arm pain, right wrist pain, right elbow pain. Patient also has bilateral knee pain. Patient is ambulatory and does have bruising to both knees - Related Data Home Medications Medication Instructions Recorded Confirmed Alendronate Sodium [Fosamax] 70 mg PO SCHMITT 11/30/16 03/27/18 Budesonide/Formoterol Fumarate 2 puff INHALATION RT-BID 11/30/16 03/27/18 [Symbicort 160-4.5 Mcg Inhaler] Citalopram Hydrobromide [CeleXA] 20 mg PO HS 11/30/16 03/27/18 Docusate [Colace] 200 mg PO HS 11/30/16 03/27/18 Famotidine [Pepcid] 20 mg PO BID 11/30/16 03/27/18 Latanoprost [Xalatan 0.005%] 1 drop BOTH EYES HS 11/30/16 03/27/18 Levothyroxine Sodium [Synthroid] 100 mcg PO DAILY 11/30/16 03/27/18 Potassium Chloride ER [K-Dur 10] 10 meq PO DAILY 11/30/16 03/27/18 Simvastatin [Zocor] 40 mg PO HS 11/30/16 03/27/18 Warfarin [Coumadin] 7.5 mg PO DAILY@1800 11/30/16 03/27/18 amLODIPine [Norvasc] 5 mg PO BID 11/30/16 03/27/18 Calcium Carbonate/Vitamin D3 1 tab PO BID 05/30/17 03/27/18 [Calcium 600-Vit D3 800 Tab] Multivitamins, Thera [Multivitamin 1 tab PO DAILY@1800 05/30/17 03/27/18 (formulary)] Vitamin E (Dl,Tocopheryl Acet) 400 unit PO DAILY@1800 05/30/17 03/27/18 [Vitamin E] Metoprolol Succinate [Toprol XL] 25 mg PO DAILY 12/23/17 05/17/18 fentaNYL 25MCG/HR PATCH [Duragesic 1 patch TRANSDERM Q72H 11/02/17 03/27/18 25MCG/HR] rOPINIRole HCL [Requip] 2 mg PO HS 11/02/17 03/27/18 ALPRAZolam [Xanax] 0.25 mg PO HS 01/08/18 03/27/18 Albuterol Sulfate [Proair Hfa] 2 puff INHALATION RT-QID 03/27/18 03/27/18 Furosemide [Lasix] 40 mg PO SUTUTHSA 03/27/18 03/27/18 Furosemide [Lasix] 80 mg PO MOWEFR 03/27/18 03/27/18 Previous Rx's Medication Instructions Recorded Hydrocodone/Acetaminophen [[place] 1 tab PO Q6H PRN #60 tab 06/04/17 10-325] Allergies Allergy/AdvReac Type Severity Reaction Status Date / Time sulfamethoxazole AdvReac Nausea & Verified 03/27/18 11:05 [From Bactrim] Vomiting trimethoprim [From Bactrim] AdvReac Nausea & Verified 03/27/18 11:05 Vomiting Review of Systems ROS Statement: Those systems with pertinent positive or pertinent negative responses have been documented in the HPI. ROS Other: All systems not noted in ROS Statement are negative. Past Medical History Past Medical History: Asthma, Cancer, CVA/TIA, GERD/Reflux, Hyperlipidemia, Hypertension, Osteoarthritis (OA), Pneumonia, Thyroid Disorder, Vascular Disorder Additional Past Medical History / Comment(s): Murmur; constipation,Colon Ca 2001 (has sx,chemo and radiation),rosacea,injury to rt hand/ lost most of it. rls, glaucoma,pleurisy, sinus problems,uti, urinary incont-wears a pad. past falls( broke lt hip and R patella(had sx), uses a w/c when out side the home. History of Any Multi-Drug Resistant Organisms: None Reported Past Surgical History: Bowel Resection, Orthopedic Surgery Additional Past Surgical History / Comment(s): Left hip IM Nailing; rt hand surgery-grafting done(donor site was abd), carpal tunnel, krista cataracts, colonoscopy/polypectomy, right knee surgery Past Anesthesia/Blood Transfusion Reactions: No Reported Reaction Past Psychological History: No Psychological Hx Reported Smoking Status: Former smoker Past Alcohol Use History: None Reported Past Drug Use History: None Reported - Past Family History Father Family Medical History: Liver Disease Additional Family Medical History / Comment(s): etoh abuse-cirrhosis of the liver Mother Additional Family Medical History / Comment(s): brain aneurysm General Exam Limitations: no limitations General appearance: alert, in no apparent distress Head exam: Present: atraumatic, normocephalic, normal inspection Eye exam: Present: normal appearance, PERRL, EOMI. Absent: scleral icterus, conjunctival injection, periorbital swelling ENT exam: Present: normal exam, mucous membranes moist Neck exam: Present: normal inspection. Absent: tenderness, meningismus, lymphadenopathy Respiratory exam: Present: normal lung sounds bilaterally. Absent: respiratory distress, wheezes, rales, rhonchi, stridor Cardiovascular Exam: Present: regular rate, normal rhythm, normal heart sounds. Absent: systolic murmur, diastolic murmur, rubs, gallop, clicks GI/Abdominal exam: Present: soft, normal bowel sounds. Absent: distended, tenderness, guarding, rebound, rigid Extremities exam: Present: normal inspection, full ROM, normal capillary refill. Absent: tenderness, pedal edema, joint swelling, calf tenderness Back exam: Present: normal inspection Neurological exam: Present: alert, oriented X3, CN II-XII intact Psychiatric exam: Present: normal affect, normal mood Skin exam: Present: warm, dry, intact, normal color. Absent: rash Course Vital Signs 03/27/18 10:41 Temperature 98.1 F Pulse Rate 87 Respiratory 20 Rate Blood Pressure 153/67 O2 Sat by Pulse 94 L Oximetry Procedures - Orthopedic Splinting/Casting Injury #1 Side: right Upper Extremity Injury Location: long arm, elbow, wrist Upper Extremity Immobilizer: sling/shoulder immobilizer, posterior splint, ulnar gutter, wrist splint Medical Decision Making - Medical Decision Making 82 female the ER for evaluation status post fall, positive wrist fracture, positive radial head fracture. Patient will follow-up with orthopedics, placed in splints - Radiology Data Radiology results: report reviewed (X-ray bilateral knees negative for fracture x-ray right upper arm positive for wrist and elbow fracture), image reviewed Disposition Clinical Impression: Fall, Right radial fracture, Radial head fracture, Right distal ulnar fracture Disposition: HOME SELF-CARE Condition: Good Instructions: Wrist Fracture in Adults (ED), Elbow Fracture (ED), Fall Prevention for Older Adults (ED) Is patient prescribed a controlled substance at d/c from ED?: Yes If prescribed controlled substance>3 days was MAPS reviewed?: No When asked, does pt state using other controlled substances?: No Referrals: Delano Maya MD [Primary Care Provider] - 1-2 days
--- NOTE | 2018-03-27 12:32 | XR ---
EXAMINATION TYPE: XR elbow complete RT DATE OF EXAM: 03/27/2018 CLINICAL HISTORY: Right elbow pain after a fall TECHNIQUE: Frontal, lateral and oblique images of the right elbow are obtained. COMPARISON: None FINDINGS: There is an transversely oriented impacted right radial head fracture with minimal joint ef fusion of the proximal radial metaphysis. No additional fracture is identified. This appears noncommi nuted and nonintra-articular. Overlying soft tissue swelling is present. IMPRESSION: Transversely oriented noncomminuted, nonintra-articular impacted radial head fracture of the proximal metaphysis.
--- NOTE | 2018-03-27 12:56 | XR ---
EXAMINATION TYPE: XR knee complete bilateral DATE OF EXAM: 03/27/2018 CLINICAL HISTORY: Pain after fall injury. TECHNIQUE: Three views of the bilateral knees are obtained. COMPARISON: Prior right knee x-ray May 30, 2017 FINDINGS: Osseous structures are demineralized. There is been interval patellar fixation surgery. The re is advanced patellofemoral joint space loss and moderate to advanced spurring. No new acute fractu re or dislocation is seen. There is mild to moderate medial and lateral tibiofemoral compartment join t space loss. Images of left knee show moderate to advanced patellofemoral joint space loss and spurring. There is additional spurring from the anterior patella. No acute fracture or dislocation is seen. There is mil d to moderate medial and lateral tibiofemoral compartment joint space loss and mild spurring. IMPRESSION: There is no new acute fracture or dislocation in either knee.
[2018-03-27 13:16] VITALS: BP 149/67; PULSE 71; RESP 18
[2018-03-27 13:47] VITALS: TEMP 97
== END 2018-03-27 13:48 | disposition home or self-care (01) ==
LOC: EC 10:38
DX: S52.121A Displaced fracture of head of right radius, initial encounter for closed fracture (principal); S52.601A Unspecified fracture of lower end of right ulna, initial encounter for closed fracture; J45.909 Unspecified asthma, uncomplicated; K21.9 Gastro-esophageal reflux disease without esophagitis; E78.5 Hyperlipidemia, unspecified; E07.9 Disorder of thyroid, unspecified; I10 Essential (primary) hypertension; M19.90 Unspecified osteoarthritis, unspecified site; G25.81 Restless legs syndrome; H40.9 Unspecified glaucoma; Z98.890 Other specified postprocedural states; Z85.038 Personal history of other malignant neoplasm of large intestine; Z86.73 Personal history of transient ischemic attack (TIA), and cerebral infarction without residual deficits; Z87.891 Personal history of nicotine dependence; Z92.21 Personal history of antineoplastic chemotherapy; Z79.51 Long term (current) use of inhaled steroids; Z79.01 Long term (current) use of anticoagulants; Z79.891 Long term (current) use of opiate analgesic; Z79.899 Other long term (current) drug therapy; Z88.2 Allergy status to sulfonamides; W01.0XXA Fall on same level from slipping, tripping and stumbling without subsequent striking against object, initial encounter; Y92.015 Private garage of single-family (private) house as the place of occurrence of the external cause
CPT/HCPCS: 29105; 99284

== ENCOUNTER 2018-06-17 09:11 | Inpatient (IN) | payer MEDICARE ==
[2018-06-17] MEDS ORDERED: AZITHROMYCIN 500 MG in DEXTROSE 5% IN WATER 250 ML IVPB STA ×2 (09:28)
[2018-06-17] MEDS ORDERED: cefTRIAXone IN SWFI 1,000 MG/10 ML SYRINGE IVP STA (09:28)
[2018-06-17] MEDS ORDERED: IPRATROPIUM-ALBUTEROL 3 ML NEB INHALATION STA (09:28)
[2018-06-17] MEDS ORDERED: methylPREDNISolone SOD SUCCI 125 MG/2 ML VIAL IV STA (09:28)
[2018-06-17] MEDS ORDERED: SODIUM CHLORIDE 0.9% 1,000 ML IV STA ×2 (09:28)
[2018-06-17] MEDS ORDERED: FUROSEMIDE 10 MG/ML 4 ML VIAL IV STA (09:28)
--- NOTE | 2018-06-17 09:32 | ED ---
SOB HPI <Dennis Page - Last Filed: 06/17/18 12:00> - General Source: patient, family, RN notes reviewed, old records reviewed Mode of arrival: wheelchair Limitations: no limitations <RoccoElvira - Last Filed: 06/17/18 12:11> - General Chief Complaint: Shortness of Breath Stated Complaint: Sob/congestion Time Seen by Provider: 06/17/18 09:19 - History of Present Illness Initial Comments: 82-year-old female presents emergency department today with increased shortness of breath over the past 2 days. She has a history of obstructive lung disease as well as heart failure. Family reports that she has recently decreased her Lasix one week ago. She takes 140 mg tablet a day. Patient reports that she's also had some chills and a low-grade temperature today. Her cough has been somewhat productive. Patient typically does not have to wear oxygen. Family reports that over the past few days she's had increase her oxygen flow to 4-6 L for her to be able to breath comfortably. They do report some minor swelling over bilateral lower extremities. Her ports that she's had a normal appetite, normal stools and urination. Patient's supervisor drying and winding is Dr. Garcia. Patient's food specialist is Dr. Bowden. (Elvira Valiente) - Related Data Home Medications Medication Instructions Recorded Confirmed Alendronate Sodium [Fosamax] 70 mg PO SCHMITT 11/30/16 06/17/18 Budesonide/Formoterol Fumarate 2 puff INHALATION RT-BID 11/30/16 06/17/18 [Symbicort 160-4.5 Mcg Inhaler] Citalopram Hydrobromide [CeleXA] 20 mg PO HS 11/30/16 06/17/18 Docusate [Colace] 200 mg PO HS 11/30/16 06/17/18 Famotidine [Pepcid] 20 mg PO DAILY 11/30/16 06/17/18 Latanoprost [Xalatan 0.005%] 1 drop BOTH EYES HS 11/30/16 06/17/18 Levothyroxine Sodium [Synthroid] 100 mcg PO DAILY 11/30/16 06/17/18 Potassium Chloride ER [K-Dur 10] 10 meq PO DAILY 11/30/16 06/17/18 Simvastatin [Zocor] 40 mg PO HS 11/30/16 06/17/18 Warfarin [Coumadin] 7.5 mg PO MOTUWETHFRSA 11/30/16 06/17/18 amLODIPine [Norvasc] 5 mg PO BID 11/30/16 06/17/18 Calcium Carbonate/Vitamin D3 1 tab PO DAILY 05/30/17 06/17/18 [Calcium 600-Vit D3 800 Tab] Multivitamins, Thera [Multivitamin 1 tab PO DAILY@1800 05/30/17 06/17/18 (formulary)] Vitamin E (Dl,Tocopheryl Acet) 400 unit PO DAILY@1800 05/30/17 06/17/18 [Vitamin E] Metoprolol Succinate [Toprol XL] 25 mg PO DAILY 11/02/17 06/17/18 fentaNYL 25MCG/HR PATCH [Duragesic 1 patch TRANSDERM Q72H 11/02/17 06/17/18 25MCG/HR] rOPINIRole HCL [Requip] 2 mg PO HS 11/02/17 06/17/18 ALPRAZolam [Xanax] 0.25 mg PO HS 01/08/18 06/17/18 Furosemide [Lasix] 40 mg PO DAILY 03/27/18 06/17/18 Ferrous Sulfate [Feosol] 325 mg PO MOTUWETHFR 06/17/18 06/17/18 Warfarin [Coumadin] 15 mg PO SCHMITT 06/17/18 06/17/18 Allergies Allergy/AdvReac Type Severity Reaction Status Date / Time codeine AdvReac Confusion Verified 06/17/18 10:01 sulfamethoxazole AdvReac Nausea & Verified 06/17/18 10:01 [From Bactrim] Vomiting trimethoprim [From Bactrim] AdvReac Nausea & Verified 06/17/18 10:01 Vomiting Review of Systems ROS Other: All systems not noted in ROS Statement are negative. <Dennis Page - Last Filed: 06/17/18 12:00> ROS Other: All systems not noted in ROS Statement are negative. <Elvira Valiente - Last Filed: 06/17/18 12:11> ROS Statement: Those systems with pertinent positive or pertinent negative responses have been documented in the HPI. Past Medical History Past Medical History: Asthma, Cancer, CVA/TIA, GERD/Reflux, Hyperlipidemia, Hypertension, Osteoarthritis (OA), Pneumonia, Thyroid Disorder, Vascular Disorder Additional Past Medical History / Comment(s): Murmur; constipation,Colon Ca 2001 (has sx,chemo and radiation),rosacea,injury to rt hand/ lost most of it. rls, glaucoma,pleurisy, sinus problems,uti, urinary incont-wears a pad. past falls( broke lt hip and R patella(had sx), uses a w/c when out side the home. History of Any Multi-Drug Resistant Organisms: None Reported Past Surgical History: Bowel Resection, Orthopedic Surgery Additional Past Surgical History / Comment(s): Left hip IM Nailing; rt hand surgery-grafting done(donor site was abd), carpal tunnel, krista cataracts, colonoscopy/polypectomy, right knee surgery Past Anesthesia/Blood Transfusion Reactions: No Reported Reaction Past Psychological History: No Psychological Hx Reported Smoking Status: Former smoker Past Alcohol Use History: None Reported Past Drug Use History: None Reported - Past Family History Father Family Medical History: Liver Disease Additional Family Medical History / Comment(s): etoh abuse-cirrhosis of the liver Mother Additional Family Medical History / Comment(s): brain aneurysm <Elvira Valiente - Last Filed: 06/17/18 12:11> General Exam <Dennis Page - Last Filed: 06/17/18 12:00> Limitations: no limitations General appearance: other (Temperature 100.3. Pulse 152. Respiratory rate 24 breaths per minute. Blood pressure 154/84. Pulse ox was 91% on 4 L of oxygen.) Head exam: Present: atraumatic, normocephalic, normal inspection Eye exam: Present: normal appearance, PERRL, EOMI. Absent: scleral icterus, conjunctival injection, periorbital swelling ENT exam: Present: normal exam, mucous membranes dry, mucous membranes moist, other (Dry oropharynx). Absent: normal oropharynx Neck exam: Present: normal inspection. Absent: tenderness, meningismus, lymphadenopathy Respiratory exam: Present: decreased breath sounds. Absent: normal lung sounds bilaterally, respiratory distress, wheezes, rales, rhonchi, stridor Cardiovascular Exam: Present: regular rate, normal rhythm, tachycardia ( Tachycardic at 152 bpm.), normal heart sounds. Absent: systolic murmur, diastolic murmur, rubs, gallop, clicks GI/Abdominal exam: Present: soft, normal bowel sounds. Absent: distended, tenderness, guarding, rebound, rigid <Elvira Valiente - Last Filed: 06/17/18 12:11> - General Exam Comments Initial Comments: 82-year-old female. Alert and oriented. Appears very labored breathing. ( Elvira Valiente) Course <Dennis Page - Last Filed: 06/17/18 12:00> <Elvira Valiente - Last Filed: 06/17/18 12:11> Vital Signs 06/17/18 06/17/18 06/17/18 09:13 10:56 11:06 Temperature 100.3 F H Pulse Rate 148 H 147 H 146 H Respiratory 24 Rate Blood Pressure 151/84 O2 Sat by Pulse 96 Oximetry 06/17/18 11:30 Temperature Pulse Rate 97 Respiratory 20 Rate Blood Pressure O2 Sat by Pulse 94 L Oximetry - Reevaluation(s) Reevaluation #1: 06/17/18 12:00 PA supervision: I personally saw and examined the patient. I have reviewed and agree with the PAs findings including all diagnostic interpretation treatment plans as written and less otherwise stated I did discuss the findings with the patient and family members as well as with Dr. Alfonso. (Dennis Page) Medical Decision Making - Lab Data Result diagrams: 06/17/18 10:29 06/17/18 10:29 <Dennis Page - Last Filed: 06/17/18 12:00> - Lab Data Result diagrams: 06/17/18 10:29 06/17/18 10:29 - Radiology Data Radiology results: report reviewed <Elvira Valiente - Last Filed: 06/17/18 12:11> - Medical Decision Making 82-year-old female presents emergency department today with increased shortness of breath. Lung sounds are diminished bilaterally. She does have significant cough. Given DuoNeb treatment, she arrived to the emergency department quite tachycardic and very short of breath. Heart rate was 150 bpm. Temperature of 100.3. Chest x-ray shows evidence of bilateral infiltrates. Patient's was started on Rocephin and azithromycin, and Solu-Medrol. Patient also received 40 g of Lasix due to elevated BNP of 1400. At this time and that the Patient for sepsis, pneumonia, in mild CHF. Breathing treatments will be completed. Consults to patient's supervisor drying and winding and food specialist. (Elvira Valiente) - Lab Data Lab Results 06/17/18 06/17/18 06/17/18 Range/Units 10:29 10:29 10:29 WBC 9.7 (3.8-10.6) k/uL RBC 3.19 L (3.80-5.40) m/uL Hgb 9.3 L (11.4-16.0) gm/dL Hct 30.0 L (34.0-46.0) % MCV 93.9 (80.0-100.0) fL MCH 29.0 (25.0-35.0) pg MCHC 30.9 L (31.0-37.0) g/dL RDW 15.0 (11.5-15.5) % Plt Count 71 L (150-450) k/uL Neutrophils % Not Reportable Neutrophils % (Manual) 84 % Band Neutrophils % 1 % Lymphocytes % Not Reportable Lymphocytes % (Manual) 8 % Monocytes % Not Reportable Monocytes % (Manual) 7 % Eosinophils % Not Reportable Basophils % Not Reportable Other Cells % % Neutrophils # Not Reportable Neutrophils # (Manual) 8.20 H (1.3-7.7) k/uL Lymphocytes # Not Reportable Lymphocytes # (Manual) 0.78 L (1.0-4.8) k/uL Monocytes # Not Reportable Monocytes # (Manual) 0.68 (0-1.0) k/uL Eosinophils # Not Reportable Basophils # Not Reportable Nucleated RBCs 0 (0-0) /100 WBC Manual Slide Review Performed Polychromasia Present Hypochromasia Slight Poikilocytosis (manual Present PT 17.1 H (9.0-12.0) sec INR 1.9 H (<1.2) APTT 28.1 (22.0-30.0) sec Sodium 137 (137-145) mmol/L Potassium 4.4 (3.5-5.1) mmol/L Chloride 101 (98-107) mmol/L Carbon Dioxide 27 (22-30) mmol/L Anion Gap 9 mmol/L BUN 25 H (7-17) mg/dL Creatinine 0.80 (0.52-1.04) mg/dL Est GFR (CKD-EPI)AfAm 80 (>60 ml/min/1.73 sqM) Est GFR (CKD-EPI)NonAf 70 (>60 ml/min/1.73 sqM) Glucose 139 H (74-99) mg/dL Plasma Lactic Acid Onofre (0.7-2.0) mmol/L Calcium 9.0 (8.4-10.2) mg/dL Total Bilirubin 1.1 (0.2-1.3) mg/dL AST 30 (14-36) U/L ALT 42 (9-52) U/L Alkaline Phosphatase 66 (38-126) U/L Total Creatine Kinase (30-135) U/L CK-MB (CK-2) (0.0-2.4) ng/mL CK-MB (CK-2) Rel Index Troponin I (0.000-0.034) ng/mL NT-Pro-B Natriuret Pep pg/mL Total Protein 6.8 (6.3-8.2) g/dL Albumin 3.8 (3.5-5.0) g/dL 06/17/18 06/17/18 06/17/18 Range/Units 10:29 10:29 10:29 WBC (3.8-10.6) k/uL RBC (3.80-5.40) m/uL Hgb (11.4-16.0) gm/dL Hct (34.0-46.0) % MCV (80.0-100.0) fL MCH (25.0-35.0) pg MCHC (31.0-37.0) g/dL RDW (11.5-15.5) % Plt Count (150-450) k/uL Neutrophils % Neutrophils % (Manual) % Band Neutrophils % % Lymphocytes % Lymphocytes % (Manual) % Monocytes % Monocytes % (Manual) % Eosinophils % Basophils % Other Cells % % Neutrophils # Neutrophils # (Manual) (1.3-7.7) k/uL Lymphocytes # Lymphocytes # (Manual) (1.0-4.8) k/uL Monocytes # Monocytes # (Manual) (0-1.0) k/uL Eosinophils # Basophils # Nucleated RBCs (0-0) /100 WBC Manual Slide Review Polychromasia Hypochromasia Poikilocytosis (manual PT (9.0-12.0) sec INR (<1.2) APTT (22.0-30.0) sec Sodium (137-145) mmol/L Potassium (3.5-5.1) mmol/L Chloride (98-107) mmol/L Carbon Dioxide (22-30) mmol/L Anion Gap mmol/L BUN (7-17) mg/dL Creatinine (0.52-1.04) mg/dL Est GFR (CKD-EPI)AfAm (>60 ml/min/1.73 sqM) Est GFR (CKD-EPI)NonAf (>60 ml/min/1.73 sqM) Glucose (74-99) mg/dL Plasma Lactic Acid Onofre 1.0 (0.7-2.0) mmol/L Calcium (8.4-10.2) mg/dL Total Bilirubin (0.2-1.3) mg/dL AST (14-36) U/L ALT (9-52) U/L Alkaline Phosphatase (38-126) U/L Total Creatine Kinase 24 L (30-135) U/L CK-MB (CK-2) 0.3 (0.0-2.4) ng/mL CK-MB (CK-2) Rel Index 1.3 Troponin I 0.023 (0.000-0.034) ng/mL NT-Pro-B Natriuret Pep 1400 pg/mL Total Protein (6.3-8.2) g/dL Albumin (3.5-5.0) g/dL 06/17/18 09:35 EKG shows wide QRS tachycardia left bundle branch block. Ventricular rate of 151 bpm. On detected. QRS ration 146. QT QTc is 322/510 ms. (Elvira Valiente) - Radiology Data Mild bibasilar infiltrates. Correlate for pneumonia and atelectasis. Follow- up is recommended. (Elvira Valiente) Disposition <Dennis Page - Last Filed: 06/17/18 12:00> Is patient prescribed a controlled substance at d/c from ED?: No Time of Disposition: 12:11 <Elvira Valiente - Last Filed: 06/17/18 12:11> Clinical Impression: Sepsis, Pneumonia, CHF (congestive heart failure) Disposition: ADMITTED IP TO THIS HOSP Condition: Stable Referrals: Delano Maya MD [Primary Care Provider] - 1-2 days
[2018-06-17] MEDS ORDERED: ACETAMINOPHEN TAB 500 MG TAB PO STA (09:49)
[2018-06-17 10:59] LABS: INR 1.9 (<1.2); Partial Thromboplastin Time 28.1 sec (22.0-30.0); Prothrombin Time 17.1 sec (9.0-12.0)
[2018-06-17 11:00] LABS: Albumin 3.8 g/dL (3.5-5.0); Potassium 4.4 mmol/L (3.5-5.1); Total Bilirubin 1.1 mg/dL (0.2-1.3); Total Protein 6.8 g/dL (6.3-8.2)
[2018-06-17 11:04] LABS: HGB 9.3 gm/dL (11.4-16.0); Hypochromasia Slight; MCHC 30.9 g/dL (31.0-37.0); MCV 93.9 fL (80.0-100.0); Mean Platelet Volume 9.2; Platelet Count 71 k/uL (150-450); RBC 3.19 m/uL (3.80-5.40); WBC 9.7 k/uL (3.8-10.6)
[2018-06-17 11:22] LABS: Creatine Kinase MB 0.3 ng/mL (0.0-2.4); Troponin I 0.023 ng/mL (0.000-0.034)
[2018-06-17 11:24] LABS: Poikilocytosis (M) Present; Polychromasia Present
[2018-06-17 11:29] LABS: Band Neutrophils % 1 %; Lymphocytes # (M) 0.78 k/uL (1.0-4.8); Monocytes # (M) 0.68 k/uL (0-1.0); Neutrophils % (M) 84 %; Nucleated Red Blood Cells 0 /100 WBC (0-0); Total Cells Counted 100
--- NOTE | 2018-06-17 11:49 | XR ---
EXAMINATION TYPE: XR chest 2V DATE OF EXAM: 06/17/2018 COMPARISON: 01/09/2018 INDICATION: Difficulty breathing, dyspnea, fever TECHNIQUE: Frontal and lateral views of the chest are obtained. FINDINGS: The heart size is normal. The pulmonary vasculature is normal. There is diffuse bilateral lower lung field infiltrates. Correlate for atelectasis. Some thickening a long the major fissure may be present on the lateral projection. Small posterior pleural effusions ar e not excluded.. IMPRESSION: 1. Mild bibasilar infiltrates. Correlate for pneumonia and atelectasis. Follow-up is recommended.
[2018-06-17] MEDS ORDERED: IBUPROFEN 400 MG TAB PO PRN (12:11)
[2018-06-17] MEDS ORDERED: ONDANSETRON 4 MG/2 ML VIAL IVP PRN (12:11)
[2018-06-17] MEDS ORDERED: ACETAMINOPHEN TAB 325 MG TAB PO PRN (12:11)
[2018-06-17] MEDS ORDERED: NALOXONE 0.4 MG/ML 1 ML VIAL IV PRN (12:11)
[2018-06-17] MEDS ORDERED: KETOROLAC 30 MG/ML 1 ML VIAL IVP PRN (12:11)
[2018-06-17] MEDS ORDERED: PNEUMONIA PROTOCOL UTILIZED 1 EACH MISC PO PRN (12:14)
[2018-06-17] MEDS ORDERED: SODIUM CHLORIDE 0.9% 1,000 ML IV SCH (12:15)
[2018-06-17] MEDS: FERROUS SULFATE 325 MG TAB PO SCH ×2 (16:40→16:50)
--- NOTE | 2018-06-17 16:40 | P.CNPUL ---
History of Present Illness Consult date: 06/17/18 Requesting physician: Dennis Page Reason for consult: dyspnea, COPD, abnormal CXR/CT Chief complaint: Shortness of breath, wheezing, low-grade fever, chills History of present illness: Mrs. Campoverde is a 82-year-old white female patient of Dr. Maya, who presented to the emergency department on a weight of [id number] 2015 for evaluation of progressive shortness of breath over the past 2 days, increased wheezing, no chest pain, patient did have low-grade fevers and chills at home. Patient has history of bronchial asthma. She has history of congestive heart failure with diastolic dysfunction. Patient is on oral diuretics at home, patient is supposed to take Lasix 80 mg on Saturday, and 40 mg daily on all other days. Family reports mild swelling in her bilateral lower extremities in addition to her increasing shortness of breath. The family states she only wears oxygen as needed, but in the last few days she's had to increase her flow to 4-[address] Lai in the pulmonary office, and outpatient PFT showed FEV1 of 58% of predicted, and FVC of 55%, consistent with restrictive pulmonary defect. Other past medical history includes colon cancer, hypertension, hyperlipidemia, hypothyroidism, GERD/reflux, degenerative arthritis, moderate degree of pulmonary hypertension, past history of CVA/TIA, and chronic atrial fibrillation, flutter on chronic anticoagulation with Coumadin. Chest x-ray showed mild bibasilar infiltrates, and small posterior pleural effusions could not be excluded. EKG showed wide complex tachycardia, with a rate of 151 BPM, with left bundle branch block. Lab work showed WBC 9.7 , hemoglobin is 9.3, INR is 1.9, electrolytes were within normal limits, B1 is 25, creatinine 0.8, proBNP was elevated at 1400, and troponin was 0.03. Physical examination revealed elderly female resting comfortably on the gurney in no acute distress, mild JVD, and lung sounds positive for bibasilar crackles , no cough, wheezing, no chest congestion, trace pretibial edema, some mild ankle swelling. She was started on IV diuretics, empiric antibiotics with azithromycin and Rocephin which we will discontinue, patient's clinical presentation is consistent with acute on chronic congestive heart failure with diastolic dysfunction. Review of Systems All systems: negative Constitutional: Denies chills, Denies fever Eyes: denies blurred vision, denies pain Ears, nose, mouth and throat: Denies headache, Denies sore throat Cardiovascular: Denies chest pain, Denies shortness of breath Respiratory: Denies cough Gastrointestinal: Denies abdominal pain, Denies diarrhea, Denies nausea, Denies vomiting Genitourinary: Denies dysuria, Denies hematuria Musculoskeletal: Denies myalgias Integumentary: Denies pruritus, Denies rash Neurological: Denies numbness, Denies weakness Psychiatric: Denies anxiety, Denies depression Endocrine: Denies fatigue, Denies weight change Past Medical History Past Medical History: Asthma, Cancer, Heart Failure, CVA/TIA, GERD/Reflux, Hyperlipidemia, Hypertension, Osteoarthritis (OA), Pneumonia, Thyroid Disorder, Vascular Disorder Additional Past Medical History / Comment(s): home 02 2 liters n/c , Murmur; constipation,Colon Ca 2001(has sx,chemo and radiation),rosacea,injury to rt hand / lost most of it. rls, glaucoma,pleurisy, sinus problems,uti, urinary incont- wears a pad. 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 History of Any Multi-Drug Resistant Organisms: None Reported Past Surgical History: Bowel Resection, Orthopedic Surgery Additional Past Surgical History / Comment(s): Left hip IM Nailing; rt hand surgery-grafting done(donor site was abd), carpal tunnel, krista cataracts, colonoscopy/polypectomy, right knee surgery Past Anesthesia/Blood Transfusion Reactions: No Reported Reaction Past Psychological History: No Psychological Hx Reported Additional Psychological History / Comment(s): pt stated she lives with son and his and 2 grandchildren. has home 02, walker, shower chair . 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 Smoking Status: Former smoker Past Alcohol Use History: None Reported Additional Past Alcohol Use History / Comment(s): started smoking 1966,quit 1986 , smkoed 1.5 ppd Past Drug Use History: None Reported - Past Family History Father Family Medical History: Liver Disease Additional Family Medical History / Comment(s): etoh abuse-cirrhosis of the liver Mother Additional Family Medical History / Comment(s): brain aneurysm Medications and Allergies Home Medications Medication Instructions Recorded Confirmed Type Alendronate Sodium [Fosamax] 70 mg PO SCHMITT 11/30/16 06/17/18 History Budesonide/Formoterol Fumarate 2 puff INHALATION RT-BID 11/30/16 06/17/18 History [Symbicort 160-4.5 Mcg Inhaler] Citalopram Hydrobromide [CeleXA] 20 mg PO HS 11/30/16 06/17/18 History Docusate [Colace] 200 mg PO HS 11/30/16 06/17/18 History Famotidine [Pepcid] 20 mg PO DAILY 11/30/16 06/17/18 History Latanoprost [Xalatan 0.005%] 1 drop BOTH EYES HS 11/30/16 06/17/18 History Levothyroxine Sodium [Synthroid] 100 mcg PO DAILY 11/30/16 06/17/18 History Potassium Chloride ER [K-Dur 10] 10 meq PO DAILY 11/30/16 06/17/18 History Simvastatin [Zocor] 40 mg PO HS 11/30/16 06/17/18 History Warfarin [Coumadin] 7.5 mg PO MOTUWETHFRSA 11/30/16 06/17/18 History amLODIPine [Norvasc] 5 mg PO BID 11/30/16 06/17/18 History Calcium Carbonate/Vitamin D3 1 tab PO DAILY 05/30/17 06/17/18 History [Calcium 600-Vit D3 800 Tab] Multivitamins, Thera [Multivitamin 1 tab PO DAILY@1800 05/30/17 06/17/18 History (formulary)] Vitamin E (Dl,Tocopheryl Acet) 400 unit PO DAILY@1800 05/30/17 06/17/18 History [Vitamin E] Metoprolol Succinate [Toprol XL] 25 mg PO DAILY 11/02/17 06/17/18 History fentaNYL 25MCG/HR PATCH [Duragesic 1 patch TRANSDERM Q72H 11/02/17 06/17/18 History 25MCG/HR] rOPINIRole HCL [Requip] 2 mg PO HS 11/02/17 06/17/18 History ALPRAZolam [Xanax] 0.25 mg PO HS 01/08/18 06/17/18 History Furosemide [Lasix] 40 mg PO DAILY 03/27/18 06/17/18 History Ferrous Sulfate [Feosol] 325 mg PO MOTUWETHFR 06/17/18 06/17/18 History Warfarin [Coumadin] 15 mg PO SCHMITT 06/17/18 06/17/18 History Allergies Allergy/AdvReac Type Severity Reaction Status Date / Time codeine AdvReac Confusion Verified 06/17/18 10:01 sulfamethoxazole AdvReac Nausea & Verified 06/17/18 10:01 [From Bactrim] Vomiting trimethoprim [From Bactrim] AdvReac Nausea & Verified 06/17/18 10:01 Vomiting Physical Exam Vitals: Vital Signs Temp Pulse Pulse Resp BP BP Pulse Ox 06/17/18 15:52 96.9 F L 106 H 16 134/78 96 06/17/18 14:00 98.8 F 84 20 129/59 96 06/17/18 11:30 97 20 94 L 06/17/18 11:06 146 H 06/17/18 10:56 147 H 06/17/18 09:13 100.3 F H 148 H 24 151/84 96 Intake and Output 06/17/18 06/17/18 06/17/18 06:59 14:59 22:59 Other: Weight 89.358 kg - Constitutional General appearance: cooperative, no acute distress - EENT Eyes: EOMI, PERRLA ENT: NA/AT, normal oropharynx Ears: bilateral: normal - Neck Neck: no lymphadenopathy Carotids: bilateral: upstroke normal Thyroid: bilateral: normal size - Respiratory Respiratory: bilateral: rales - Cardiovascular Rhythm: irregularly irregular Heart sounds: normal: S1, S2 Abnormal Heart Sounds: systolic murmur systolic murmur (1) Location: apex ankle Peripheral Edema: bilateral: 1+ leg Peripheral Edema: bilateral: Trace - Gastrointestinal General gastrointestinal: no organomegaly, soft, no tenderness - Neurologic Neurologic: CNII-XII intact - Musculoskeletal Musculoskeletal: generalized weakness, strength equal bilaterally - Psychiatric Psychiatric: A&O x's 3, appropriate affect, intact judgment & insight Results - Laboratory Findings CBC and BMP: 06/17/18 10:29 06/17/18 10:29 PT/INR, D-dimer PT 17.1 sec (9.0-12.0) H 06/17/18 10:29 INR 1.9 (<1.2) H 06/17/18 10:29 Abnormal lab findings: Abnormal Labs 06/17/18 06/17/18 06/17/18 10:29 10:29 10:29 RBC 3.19 L Hgb 9.3 L Hct 30.0 L MCHC 30.9 L Plt Count 71 L Neutrophils # (Manual) 8.20 H Lymphocytes # (Manual) 0.78 L PT 17.1 H INR 1.9 H BUN 25 H Glucose 139 H Total Creatine Kinase 06/17/18 10:29 RBC Hgb Hct MCHC Plt Count Neutrophils # (Manual) Lymphocytes # (Manual) PT INR BUN Glucose Total Creatine Kinase 24 L - Diagnostic Findings Chest x-ray: report reviewed, image reviewed Additional studies: EKG reviewed Assessment and Plan Plan: Assessment #1. Acute on chronic congestive heart failure, with diastolic dysfunction #2. Increasing dyspnea, peripheral edema, acute on chronic hypoxemic respiratory failure due to the above #3. History of chronic bronchial asthma #4. Moderate pulmonary hypertension, and mitral regurgitation as previously noted on echo from January, #5. Wide-complex tachycardia #6. History of atrial fibrillation, flutter, on chronic anticoagulation in the form of Coumadin No. #7. Hypertension, hyperlipidemia #8. Previous history of CVA #9. Hypothyroidism #10. Degenerative arthritis #11. History of colon cancer Plan: We'll stop the antibiotics, no leukocytosis, no chest congestion, no phlegm production. Patient's clinical presentation is palpable with acute on chronic congestive heart failure. Continue IV diuresis, we'll repeat chest x-ray in the morning. Accurate I&O's, daily weights. Cardiology has been consulted. Patient is currently in what appears to be sinus rhythm with a controlled rate. In no acute distress, eating for a bed on selective care unit. Continue Symbicort, continue nebulized bronchodilators, we'll cut the fluids back to KVO. I performed a history & physical examination of the patient and discussed their management with my nurse practitioner, Maya Calderón. I reviewed the nurse practitioner's note and agree with the documented findings and plan of care. Lung sounds are positive for bibasilar crackles. The findings and the impression was discussed with the patient. I attest to the documentation by the nurse practitioner. Time with Patient: Greater than 30
[2018-06-17] MEDS: VITAMIN E (DL,TOCOPHERYL ACET) 400 UNIT CAP PO SCH (16:50)
[2018-06-17] MEDS: FUROSEMIDE 10 MG/ML 4 ML VIAL IV SCH ×2 (16:50→23:51)
[2018-06-17] MEDS: WARFARIN 7.5 MG TAB PO SCH (16:50)
[2018-06-17] MEDS: SYMBICORT 160-4.5 MCG INHALER INHALATION SCH (19:32)
[2018-06-17] MEDS: IPRATROPIUM-ALBUTEROL 3 ML NEB INHALATION PRN (19:33)
[2018-06-17] MEDS: amLODIPine 5 MG TAB PO SCH (21:35)
[2018-06-17] MEDS: ALPRAZolam 0.25 MG TAB PO SCH (21:35)
[2018-06-17] MEDS: LATANOPROST 0.005% OPHTH DROPS 2.5 ML BTL BOTH EYES SCH (21:35)
[2018-06-17] MEDS: CITALOPRAM HYDROBROMIDE 20 MG TAB PO SCH (21:35)
[2018-06-17] MEDS: ATORVASTATIN 20 MG TAB PO SCH (21:35)
[2018-06-17] MEDS: DOCUSATE 100 MG CAP PO SCH (21:35)
--- NOTE | 2018-06-17 23:42 | HP ---
HISTORY AND PHYSICAL DATE OF ADMISSION: 06/17/2018. DATE OF SERVICE: 06/17/2018 PRESENT COMPLAINT: Cough, fever. HISTORY OF PRESENTING COMPLAINT: This is a pleasant 82-year-old patient of Dr. Maya whose chronic stable medical conditions include GERD, hyperlipidemia, hypertension, osteoarthritis, hypothyroid, chronic hypoxic respiratory failure on 2L oxygen at home. The patient for a couple days having increasing amount of cough, a little sputum, fever, tired, run down, some wheezing and cough. The patient is a nonsmoker. Admitted to the ER. The patient was found to have a fever of 100.3 and a pulse rate of 148. Tired, run down, requiring 6L of oxygen. REVIEW OF SYSTEMS: CONSTITUTIONAL: Fever, chills, tired. HEENT: As above. RESPIRATORY: As above. CARDIOVASCULAR: None. GASTROINTESTINAL: None. GENITOURINARY: None. MUSCULOSKELETAL: Aches and pains in the joints. DERMATOLOGICAL: None. HEMATOLOGIC: None. LYMPHATIC: None. PSYCHIATRY: None. NEUROLOGICAL: None. PAST HISTORY: Asthma, heart failure, stroke, GERD, hyperlipidemia, hypertension, osteoarthritis, hypothyroid, home oxygen 2L, colon cancer in 2001, did get chemo and radiation, rosacea, right hand lost in a machine accident, glaucoma, urinary incontinence, wears pads, uses a wheelchair when outside the house. PAST SURGICAL HISTORY: Bowel resection, left hip IM nailing, right hand surgery, carpal tunnel, bilateral cataract surgery, colonoscopy with polypectomy, right knee surgery. SOCIAL HISTORY: The patient lives with her son and his , 2 grandchildren. Home oxygen, walker, shower chair. The patient smoked for about 20 years, stopped in 1986. Smoked a pack and half a day. Alcohol: None. FAMILY HISTORY: Alcohol abuse and cirrhosis. HOME MEDICATIONS: 1. Fentanyl 25 mcg patch every 72 hours/. 2. Coumadin 50 mg on Sundays. 3. Requip 2 mg at bedtime. 4. Norvasc 5 mg b.i.d. 5. Vitamin E 400 units p.o. daily. 6. Zocor 40 mg q.h.s. 7. Potassium 10 mEq a day. 8. Multivitamin 1 tablet p.o. daily. 9. Toprol-XL 25 mg a day. 10.Synthroid 100 mcg a day. 11.Xalatan 0.005% 1 drop to both eyes q.h.s. 12.Lasix 40 mg a day. 13.Iron 325 p.o. Saturday, Saturday, Saturday, , Saturday. 14.Pepcid 20 mg a day. 15.Colace 200 mg q.h.s. 16.Celexa 20 mg q.h.s. 17.Calcium with vitamin D3 one tablet p.o. daily. 18.Symbicort 160/4.5, 2 puffs b.i.d. 19.Fosamax 70 mg on Sundays. 20.Xanax 0.25 p.o. q.h.s. ALLERGIES: To CODEINE, BACTRIM. EXAMINATION: VITAL SIGNS: On presentation, temperature 100.3, pulse 148 respirations 24, blood pressure 115/84 pulse 96% on 6L. GENERAL APPEARANCE: Well-built, BMI 33.8. Sitting up, tired-appearing. EYES: Pupil equal. Conjunctivae normal. HEENT: External appearance of nose and ears normal. Oral cavity normal. NECK: JVD unable to assess. Mass not palpable. RESPIRATORY: Effort increased. LUNGS: Decreased breath sounds. Some prolonged expiration. CARDIOVASCULAR: First and second sounds normal. No edema. ABDOMEN: Soft, nontender. Liver and spleen not palpable. LYMPHATIC: No lymph node palpable in neck or axillae. PSYCHIATRY: Alert and oriented x3. Mood and affect slightly anxious-appearing. NEUROLOGICAL: Pupils equal. Cranial nerves grossly intact. Power and sensation grossly intact. EXTREMITIES: Right hand has got a stump. INVESTIGATIONS: White count 9.7, hemoglobin 9.3, INR 1.9. Potassium 4.4, BUN 25, creatinine 0.8. Troponin 0.023, 0.031. Chest x-ray film interpreted by al shows fluid in the horizontal fissures and pulmonary edema and also infiltrates. ASSESSMENT: 1. Bilateral pneumonia, suspect gram-negative organism. 2. Acute congestive heart failure exacerbation, ejection fraction not known. 3. Gastroesophageal reflux disease. 4. Hyperlipidemia. 5. Essential hypertension. 6. Primary osteoarthritis. 7. Hypothyroidism. 8. Chronic hypoxic respiratory failure on 2L nasal cannula. 9. Acute hypoxic respiratory failure, more from pneumonia and congestive heart failure. 10.History of colon cancer. 11.Rosacea. 12.Chronic urinary stress incontinence, wears pads. 13.Obesity; BMI 33.8. PLAN: Patient is put on DuoNeb. Will start the patient on ceftriaxone. I also put the patient on IV Lasix. The patient admitted, will at least need 2-night stay in the hospital. Care was discussed with the patient. DUSTY / MARS: [id number] /
[2018-06-18] MEDS ORDERED: DILTIAZEM DRIP BOLUS FROM BAG 1 MG SOLN IV ONE (02:07)
[2018-06-18] MEDS: DILTIAZEM 50 MG in SODIUM CHLORIDE 0.9% 40 ML IV SCH ×4 (02:32→21:37)
[2018-06-18 06:01] LABS: Basophils % (A) 0 %; Eosinophils % (A) 0 %; HGB 8.4 gm/dL (11.4-16.0); Hypochromasia Slight; Lymphocytes # (A) 0.9 k/uL (1.0-4.8); Lymphocytes % (A) 15 %; MCH 29.4 pg (25.0-35.0); MCHC 31.2 g/dL (31.0-37.0); MCV 94.2 fL (80.0-100.0); Monocytes # (A) 0.3 k/uL (0-1.0); Monocytes % (A) 6 %; Neutrophils # (A) 4.2 k/uL (1.3-7.7); Neutrophils % (A) 77 %; RBC 2.87 m/uL (3.80-5.40); RDW 14.5 % (11.5-15.5); WBC 5.5 k/uL (3.8-10.6)
[2018-06-18 06:05] LABS: Platelet Count 66 k/uL (150-450)
[2018-06-18 06:08] LABS: INR 2.1 (<1.2); Prothrombin Time 18.7 sec (9.0-12.0)
[2018-06-18] MEDS: LEVOTHYROXINE 100 MCG TAB PO SCH (06:46)
[2018-06-18 06:48] LABS: Calcium 8.3 mg/dL (8.4-10.2); Potassium 4.4 mmol/L (3.5-5.1)
--- NOTE | 2018-06-18 07:47 | XR ---
EXAMINATION TYPE: XR chest 1V portable DATE OF EXAM: 06/18/2018 Comparison: 06/17/2018 Clinical History: 82-year-old female follow-up CHF Findings: Heart borderline enlarged. Mild diffuse interstitial prominence. Hazy lower lung densities related pa rt to overlying soft tissue. Aeration appears to be improving from prior exam. No significant pleural effusion on the frontal view. Impression: There may be mild residual pulmonary vascular congestion. Aeration is improving from prior exam.
[2018-06-18] MEDS: IPRATROPIUM-ALBUTEROL 3 ML NEB INHALATION PRN ×4 (08:05→21:14)
[2018-06-18] MEDS: SYMBICORT 160-4.5 MCG INHALER INHALATION SCH ×2 (08:05→21:14)
[2018-06-18] MEDS: FUROSEMIDE 10 MG/ML 4 ML VIAL IV SCH ×2 (08:54→16:37)
[2018-06-18] MEDS: POTASSIUM CHLORIDE ER 10 MEQ TAB.ER.PRT PO SCH (08:55)
[2018-06-18] MEDS: VITAMIN E (DL,TOCOPHERYL ACET) 400 UNIT CAP PO SCH (08:55)
[2018-06-18] MEDS: amLODIPine 5 MG TAB PO SCH (08:55)
[2018-06-18] MEDS: CALCIUM CARB-VIT D 500MG-200UN 1 EACH TAB PO SCH (08:55)
[2018-06-18] MEDS: METOPROLOL SUCCINATE (ER) 25 MG TAB.ER.24H PO SCH (08:55)
[2018-06-18] MEDS ORDERED: FUROSEMIDE 40 MG TAB PO SCH (09:00)
[2018-06-18] MEDS ORDERED: FAMOTIDINE 20 MG TAB PO SCH (09:00)
[2018-06-18] MEDS ORDERED: PANTOPRAZOLE 40 MG/10 ML VIAL IV SCH (09:00)
--- NOTE | 2018-06-18 09:00 | P.CRDCN ---
History of Present Illness Consult date: 06/18/18 Requesting physician: Jona Alfonso Consult reason: shortness of breath Chief complaint: Shortness of breath History of present illness: This is an 82-year-old female with known history of COPD, hypertension , asthma, hyperlipidemia, hypothyroidism, history of colon cancer, chronic persistent atrial fibrillation, who presented to the hospital with fairly sudden onset of shortness of breath. According to the patient she was short of breath, could hardly breathe, but she states that it was only for one day. She does state that she is coughing up green-colored sputum, denies fever at home. On arrival here the patient was noted to have a temperature of 100.3. Blood pressure on arrival 150/80 with a heart rate in the 140s, 96% on 6 L of oxygen. EKG on arrival here showed atrial fibrillation with a rapid ventricular response. Patient did have an echocardiogram with Doppler study performed in January of this year which revealed an ejection fraction of 50-55%, moderate mitral regurg, mild to moderate tricuspid regurg and moderate pulmonary hypertension. Laboratory data was reviewed, white blood cell count is normal, hemoglobin on arrival 9.3, 8.4 this morning. Platelet count 71, 66 this morning. INR is 2.1. Sodium 139, potassium 4.4, BUN 33, creatinine 0.8. Troponins 0.0-3, 0.031, 0.022. BNP level 1400. Chest x-ray on admission revealed mild bibasilar infiltrates, correlate for pneumonia and atelectasis. Chest x-ray performed this morning revealed a mild residual pulmonary vascular congestion, aeration improved from prior exam. Patient was given a bolus of IV Cardizem on admission here, started on IV antibiotics as well as IV Lasix. At the time of my examination this morning, patient still complains of feeling short of breath, she does state however that her symptoms are much improved from admission here. This morning patient is in a sinus tachycardia. Past Medical History Past Medical History: Asthma, Cancer, Heart Failure, CVA/TIA, GERD/Reflux, Hyperlipidemia, Hypertension, Osteoarthritis (OA), Pneumonia, Thyroid Disorder, Vascular Disorder Additional Past Medical History / Comment(s): home 02 2 liters n/c , Murmur; constipation,Colon Ca 2001(has sx,chemo and radiation),rosacea,injury to rt hand / lost most of it. rls, glaucoma,pleurisy, sinus problems,uti, urinary incont- wears a pad. 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 History of Any Multi-Drug Resistant Organisms: None Reported Past Surgical History: Bowel Resection, Orthopedic Surgery Additional Past Surgical History / Comment(s): Left hip IM Nailing; rt hand surgery-grafting done(donor site was abd), carpal tunnel, krista cataracts, colonoscopy/polypectomy, right knee surgery Past Anesthesia/Blood Transfusion Reactions: No Reported Reaction Past Psychological History: No Psychological Hx Reported Additional Psychological History / Comment(s): pt stated she lives with son and his and 2 grandchildren. has home 02, walker, shower chair . has personal care service provider to help with showers. Smoking Status: Former smoker Past Alcohol Use History: None Reported Additional Past Alcohol Use History / Comment(s): started smoking 1966,quit 1986 , smkoed 1.5 ppd Past Drug Use History: None Reported - Past Family History Father Family Medical History: Liver Disease Additional Family Medical History / Comment(s): etoh abuse-cirrhosis of the liver Mother Additional Family Medical History / Comment(s): brain aneurysm Medications and Allergies Home Medications Medication Instructions Recorded Confirmed Type Alendronate Sodium [Fosamax] 70 mg PO SINHA 11/30/16 06/17/18 History Budesonide/Formoterol Fumarate 2 puff INHALATION RT-BID 11/30/16 06/17/18 History [Symbicort 160-4.5 Mcg Inhaler] Citalopram Hydrobromide [CeleXA] 20 mg PO HS 11/30/16 06/17/18 History Docusate [Colace] 200 mg PO HS 11/30/16 06/17/18 History Famotidine [Pepcid] 20 mg PO DAILY 11/30/16 06/17/18 History Latanoprost [Xalatan 0.005%] 1 drop BOTH EYES HS 11/30/16 06/17/18 History Levothyroxine Sodium [Synthroid] 100 mcg PO DAILY 11/30/16 06/17/18 History Potassium Chloride ER [K-Dur 10] 10 meq PO DAILY 11/30/16 06/17/18 History Simvastatin [Zocor] 40 mg PO HS 11/30/16 06/17/18 History Warfarin [Coumadin] 7.5 mg PO MOTUWETHFRSA 11/30/16 06/17/18 History amLODIPine [Norvasc] 5 mg PO BID 11/30/16 06/17/18 History Calcium Carbonate/Vitamin D3 1 tab PO DAILY 05/30/17 06/17/18 History [Calcium 600-Vit D3 800 Tab] Multivitamins, Thera [Multivitamin 1 tab PO DAILY@1800 05/30/17 06/17/18 History (formulary)] Vitamin E (Dl,Tocopheryl Acet) 400 unit PO DAILY@1800 05/30/17 06/17/18 History [Vitamin E] Metoprolol Succinate [Toprol XL] 25 mg PO DAILY 11/02/17 06/17/18 History fentaNYL 25MCG/HR PATCH [Duragesic 1 patch TRANSDERM Q72H 11/02/17 06/17/18 History 25MCG/HR] rOPINIRole HCL [Requip] 2 mg PO HS 11/02/17 06/17/18 History ALPRAZolam [Xanax] 0.25 mg PO HS 01/08/18 06/17/18 History Furosemide [Lasix] 40 mg PO DAILY 03/27/18 06/17/18 History Ferrous Sulfate [Feosol] 325 mg PO MOTUWETHFR 06/17/18 06/17/18 History Warfarin [Coumadin] 15 mg PO SINHA 06/17/18 06/17/18 History Allergies Allergy/AdvReac Type Severity Reaction Status Date / Time codeine AdvReac Confusion Verified 06/17/18 10:01 sulfamethoxazole AdvReac Nausea & Verified 06/17/18 10:01 [From Bactrim] Vomiting trimethoprim [From Bactrim] AdvReac Nausea & Verified 06/17/18 10:01 Vomiting Physical Exam Vitals: Vital Signs Temp Pulse Pulse Resp BP BP Pulse Ox 06/18/18 04:00 96.5 F L 95 18 132/61 96 06/17/18 23:30 97.8 F 92 18 129/61 95 06/17/18 20:00 97.0 F L 93 18 116/55 95 06/17/18 19:50 92 06/17/18 19:34 94 96 06/17/18 16:00 106 H 16 06/17/18 15:52 96.9 F L 106 H 16 134/78 96 06/17/18 14:00 98.8 F 84 20 129/59 96 06/17/18 11:30 97 20 94 L 06/17/18 11:06 146 H 06/17/18 10:56 147 H 06/17/18 09:13 100.3 F H 148 H 24 151/84 96 Intake and Output 06/17/18 06/18/18 06/18/18 22:59 06:59 14:59 Intake Total 298 150 Output Total 600 1000 Balance -302 -850 Intake: Oral 298 150 Output: Urine 600 1000 Other: Voiding Method Bedside Commode Bedside Commode # Bowel Movements 1 Weight 90.8 kg PHYSICAL EXAMINATION: GENERAL: 82-year-old female in no acute distress at the time of my examination HEENT: Head is atraumatic, normocephalic. Pupils equal, round. Sclera anicteric. Conjunctiva are clear. Mucous membranes of the mouth are moist. Neck is supple. There is elevated jugular venous pressure. No carotid bruit is heard. HEART EXAMINATION: Heart S1 and S2 diastolic murmur is heard. CHEST EXAMINATION: Lungs reveal scattered coarse rhonchi and wheezing throughout ABDOMEN: Soft, obese, nontender. Bowel sounds are heard. No organomegaly noted. EXTREMITIES: 2+ peripheral pulses with no evidence of peripheral edema and no calf tenderness noted. NEUROLOGIC patient is awake, alert and oriented X3. . Results 06/18/18 05:38 06/18/18 05:38 Cardiac Enzymes 06/17/18 06/17/18 06/17/18 Range/Units 10:29 10:29 16:37 AST 30 (14-36) U/L CK-MB (CK-2) 0.3 (0.0-2.4) ng/mL Troponin I 0.023 0.031 (0.000-0.034) ng/mL 06/17/18 Range/Units 22:38 AST (14-36) U/L CK-MB (CK-2) (0.0-2.4) ng/mL Troponin I 0.022 (0.000-0.034) ng/mL Coagulation 06/17/18 06/18/18 Range/Units 10:29 05:38 PT 17.1 H 18.7 H (9.0-12.0) sec APTT 28.1 (22.0-30.0) sec CBC 06/17/18 06/18/18 Range/Units 10:29 05:38 WBC 9.7 5.5 (3.8-10.6) k/uL RBC 3.19 L 2.87 L (3.80-5.40) m/uL Hgb 9.3 L 8.4 L (11.4-16.0) gm/dL Hct 30.0 L 27.0 L (34.0-46.0) % Plt Count 71 L 66 L (150-450) k/uL Comprehensive Metabolic Panel 06/17/18 06/18/18 Range/Units 10:29 05:38 Sodium 137 139 (137-145) mmol/L Potassium 4.4 4.4 (3.5-5.1) mmol/L Chloride 101 102 (98-107) mmol/L Carbon Dioxide 27 29 (22-30) mmol/L BUN 25 H 33 H (7-17) mg/dL Creatinine 0.80 0.87 (0.52-1.04) mg/dL Glucose 139 H 153 H (74-99) mg/dL Calcium 9.0 8.3 L (8.4-10.2) mg/dL AST 30 (14-36) U/L ALT 42 (9-52) U/L Alkaline Phosphatase 66 (38-126) U/L Total Protein 6.8 (6.3-8.2) g/dL Albumin 3.8 (3.5-5.0) g/dL Current Medications Generic Name Dose Route Start Last Admin Trade Name Freq PRN Reason Stop Dose Admin Acetaminophen 650 mg 06/17/18 12:11 Tylenol Tab PO Q6HR PRN Mild Pain or Fever > 100.5 Albuterol/Ipratropium 3 ml 06/17/18 12:14 06/17/18 19:33 Duoneb 0.5 Mg-3 Mg/3 Ml Soln INHALATION 3 ml RT-Q4H PRN Administration shortness of breath Alprazolam 0.25 mg 06/17/18 21:00 06/17/18 21:35 Xanax PO 0.25 mg HS ANGELA Administration Amlodipine Besylate 5 mg 06/17/18 21:00 06/17/18 21:35 Norvasc PO 5 mg BID ANGELA Administration Aspirin 325 mg 06/18/18 12:15 Aspirin PO DAILY [facility] Atorvastatin Calcium 20 mg 06/17/18 21:00 06/17/18 21:35 Lipitor PO 20 mg HS ANGELA Administration Budesonide/Formoterol Fumarate 2 puff 06/17/18 20:00 06/18/18 08:05 Symbicort 160-4.5 Mcg Inhaler INHALATION 2 puff RT-BID ANGELA Administration Calcium Carbonate 1 each 06/18/18 12:00 Oscal 500+D PO 1200 [facility] Ceftriaxone Sodium 1,000 mg 06/18/18 11:00 Rocephin IVP Q24H [facility] Citalopram Hydrobromide 20 mg 06/17/18 21:00 06/17/18 21:35 Celexa PO 20 mg HS ANGELA Administration Docusate Sodium 200 mg 06/17/18 21:00 06/17/18 21:35 Colace PO 200 mg HS ANGELA Administration Famotidine 20 mg 06/18/18 09:00 Pepcid PO DAILY [facility] Fentanyl 1 patch 06/17/18 12:30 06/17/18 16:40 Duragesic 25mcg/Hr Patch TRANSDERM Not Given Q72H [facility] Ferrous Sulfate 325 mg 06/17/18 12:30 06/17/18 16:50 Feosol PO 325 mg MoTuWeThFr@1200 ANGELA Administration Furosemide 40 mg 06/17/18 16:00 06/17/18 23:51 Lasix IV 40 mg Q8HR ANGELA Administration Sodium Chloride 1,000 mls @ 20 mls/hr 06/17/18 09:28 06/17/18 10:40 Saline 0.9% IV 06/18/18 09:27 100 mls/hr .Q24H STA Administration Diltiazem HCl 50 mg/ Sodium 50 mls @ 10 mls/hr 06/18/18 02:15 06/18/18 02:32 Chloride IV 10 mg/hr .Q5H ANGELA 10 mls/hr Administration 10 MG/HR Ibuprofen 400 mg 06/17/18 12:11 Motrin PO Q6HR PRN Mild Pain or Fever > 100.5 Ketorolac Tromethamine 30 mg 06/17/18 12:11 Toradol IVP 06/22/18 12:12 Q6HR PRN Moderate Pain Latanoprost 1 drops 06/17/18 21:00 06/17/18 21:35 Xalatan 0.005% BOTH EYES 1 drops HS [facility] Administration Levothyroxine Sodium 100 mcg 06/18/18 06:30 06/18/18 06:46 Synthroid PO 100 mcg 0630 ANGELA Administration Metoprolol Succinate 25 mg 06/18/18 09:00 Toprol Xl PO DAILY [facility] Miscellaneous Information 1 each 06/17/18 12:14 Pneumonia Protocol Utilized PO ONCE PRN Per Protocol Naloxone HCl 0.2 mg 06/17/18 12:11 Narcan IV Q2M PRN Opioid Reversal Patient's Own Med ( 70 mg 06/22/18 07:00 Alendronate Sodium [ PO Fosamax] 70 Mg) Sinha@0700 [facility] Ondansetron HCl 4 mg 06/17/18 12:11 Zofran IVP Q8HR PRN Nausea And Vomiting Oxycodone/Acetaminophen 1 each 06/17/18 12:11 Percocet 5-325 PO Q4HR PRN Severe Pain Pantoprazole Sodium 40 mg 06/18/18 09:00 Protonix IV DAILY [facility] Potassium Chloride 10 meq 06/18/18 09:00 K-Dur 10 PO DAILY [facility] Ropinirole HCl 2 mg 06/17/18 21:00 06/17/18 21:35 Requip PO 2 mg HS [facility] Administration Vitamin E 400 unit 06/17/18 18:00 06/17/18 16:50 Vitamin E PO 400 unit DAILY@1800 [facility] Administration Warfarin Sodium 7.5 mg 06/17/18 18:00 06/17/18 16:50 Coumadin PO 7.5 mg MoTuWeThFrSa@1800 [facility] Administration Warfarin Sodium 15 mg 06/22/18 18:00 Coumadin PO Sinha@1800 [facility] Intake and Output 06/17/18 06/18/18 06/18/18 22:59 06:59 14:59 Intake Total 298 150 Output Total 600 1000 Balance -302 -850 Intake: Oral 298 150 Output: Urine 600 1000 Other: Voiding Method Bedside Commode Bedside Commode # Bowel Movements 1 Weight 90.8 kg 06/18/18 05:38 06/18/18 05:38 EKG Interpretations (text) Initial EKG shows atrial flutter with rapid ventricular response and left bundle branch block pattern Assessment and Plan Plan: Assessment and plan #1 symptoms of fairly sudden onset of shortness of breath, congestive heart failure, LV function in January of this year documented to be 50-55%, diastolic, acute on chronic. #2 atrial flutter with rapid ventricular response, typical, history of a chronic persistent atrial fibrillation, on Coumadin for anticoagulation. #3 COPD, possible pneumonia on chest x-ray #4 hypertension #5 hyperlipidemia #6 prior history of smoking #7 anemia, upon review of records back to 2014, it is noted that the patient runs a hemoglobin in the range of 8.4. Patient has history of colon cancer #8 diastolic murmur suggestive of possible mitral stenosis. Plan We will repeat an echocardiogram with Doppler study. Discontinue aspirin. Continue Coumadin. Continue IV Lasix. Discontinue Norvasc as the patient is currently on a Cardizem drip at 10 mg per hour. Discontinue Motrin. Continue to monitor intake and output along with daily weights and daily lytes BUN and creatinine. Obtain free T4 and TSH level. Further recommendations to follow. DNP note has been reviewed, I agree with a documented findings and plan of care. Patient was seen and examined.
--- NOTE | 2018-06-18 10:44 | P.PN ---
Subjective Progress Note Date: 06/18/18 Principal diagnosis: Acute exacerbation of diastolic congestive heart failure with atrial fibrillation and rapid ventricular response. This is an 82-year-old female with known history of COPD, hypertension , asthma, hyperlipidemia, hypothyroidism, history of colon cancer, chronic persistent atrial fibrillation, who presented to the hospital with fairly sudden onset of shortness of breath. According to the patient she was short of breath, could hardly breathe, but she states that it was only for one day. She does state that she is coughing up green-colored sputum, denies fever at home. On arrival here the patient was noted to have a temperature of 100.3. Blood pressure on arrival 150/80 with a heart rate in the 140s, 96% on 6 L of oxygen. EKG on arrival here showed atrial fibrillation with a rapid ventricular response. Patient did have an echocardiogram with Doppler study performed in January of this year which revealed an ejection fraction of 50-55%, moderate mitral regurg, mild to moderate tricuspid regurg and moderate pulmonary hypertension. Laboratory data was reviewed, white blood cell count is normal, hemoglobin on arrival 9.3, 8.4 this morning. Platelet count 71, 66 this morning. INR is 2.1. Sodium 139, potassium 4.4, BUN 33, creatinine 0.8. Troponins 0.0-3, 0.031, 0.022. BNP level 1400. Chest x-ray on admission revealed mild bibasilar infiltrates, correlate for pneumonia and atelectasis. Chest x-ray performed this morning revealed a mild residual pulmonary vascular congestion, aeration improved from prior exam. Patient was given a bolus of IV Cardizem on admission here, started on IV antibiotics as well as IV Lasix. At the time of my examination this morning, patient still complains of feeling short of breath, she does state however that her symptoms are much improved from admission here. This morning patient is in a sinus tachycardia. Patient is seen today 06/18/2018 in follow-up on the selective care unit. She is currently awake and alert in no acute distress. Sitting up in bed she is breathing easier today as compared to yesterday but not quite back to her baseline. Her chest x-ray shows improvement in the pulmonary vascular congestion. He is maintaining good O2 saturations in the upper 90s on 4 L/m per nasal cannula. She's been afebrile. Her heart rate is better controlled. She is on a Cardizem drip at 10 mg per hour. Anticoagulated with warfarin. She is currently in a negative balance. Weight is equivocal. Count 5.5. Hemoglobin 8.4. INR 2.1. Creatinine 0.87. TSH 1.86. Remains on Lasix 40 mg IV push every 8 hours. Objective - Vital Signs Vital signs: Vital Signs Temp 97.9 F 06/18/18 08:00 Pulse 101 H 06/18/18 08:00 Resp 16 06/18/18 08:00 BP 158/60 06/18/18 08:00 Pulse Ox 97 06/18/18 08:00 Intake & Output 06/17/18 06/18/18 06/18/18 18:59 06:59 18:59 Intake Total 118 330 0 Output Total 1600 Balance 118 -1270 0 Weight 89.358 kg 90.8 kg Intake: Oral 118 330 0 Output: Urine 1600 Other: Voiding Method Bedside Commode # Bowel Movements 1 - Exam - Constitutional General appearance: cooperative, no acute distress - EENT Eyes: EOMI, PERRLA ENT: NA/AT, normal oropharynx Ears: bilateral: normal - Neck Neck: no lymphadenopathy Carotids: bilateral: upstroke normal Thyroid: bilateral: normal size - Respiratory Respiratory: bilateral: rales - Cardiovascular Rhythm: irregularly irregular tachycardic Heart sounds: normal: S1, S2 Abnormal Heart Sounds: Diastolic murmur Diastolic murmur (1) Location: apex ankle Peripheral Edema: bilateral: 1+ leg Peripheral Edema: bilateral: Trace - Gastrointestinal General gastrointestinal: no organomegaly, soft, no tenderness - Neurologic Neurologic: CNII-XII intact - Musculoskeletal Musculoskeletal: generalized weakness, strength equal bilaterally - Psychiatric Psychiatric: A&O x's 3, appropriate affect, intact judgment & insight - Labs CBC & Chem 7: 06/18/18 05:38 06/18/18 05:38 Labs: Abnormal Lab Results - Last 24 Hours (Table) 06/17/18 06/17/18 06/17/18 Range/Units 10:29 10:29 10:29 RBC 3.19 L (3.80-5.40) m/uL Hgb 9.3 L (11.4-16.0) gm/dL Hct 30.0 L (34.0-46.0) % MCHC 30.9 L (31.0-37.0) g/dL Plt Count 71 L (150-450) k/uL Neutrophils # (Manual) 8.20 H (1.3-7.7) k/uL Lymphocytes # (1.0-4.8) k/uL Lymphocytes # (Manual) 0.78 L (1.0-4.8) k/uL PT 17.1 H (9.0-12.0) sec INR 1.9 H (<1.2) BUN 25 H (7-17) mg/dL Glucose 139 H (74-99) mg/dL Calcium (8.4-10.2) mg/dL Total Creatine Kinase (30-135) U/L 06/17/18 06/18/18 06/18/18 Range/Units 10:29 05:38 05:38 RBC 2.87 L (3.80-5.40) m/uL Hgb 8.4 L (11.4-16.0) gm/dL Hct 27.0 L (34.0-46.0) % MCHC (31.0-37.0) g/dL Plt Count 66 L (150-450) k/uL Neutrophils # (Manual) (1.3-7.7) k/uL Lymphocytes # 0.9 L (1.0-4.8) k/uL Lymphocytes # (Manual) (1.0-4.8) k/uL PT 18.7 H (9.0-12.0) sec INR 2.1 H (<1.2) BUN (7-17) mg/dL Glucose (74-99) mg/dL Calcium (8.4-10.2) mg/dL Total Creatine Kinase 24 L (30-135) U/L 06/18/18 Range/Units 05:38 RBC (3.80-5.40) m/uL Hgb (11.4-16.0) gm/dL Hct (34.0-46.0) % MCHC (31.0-37.0) g/dL Plt Count (150-450) k/uL Neutrophils # (Manual) (1.3-7.7) k/uL Lymphocytes # (1.0-4.8) k/uL Lymphocytes # (Manual) (1.0-4.8) k/uL PT (9.0-12.0) sec INR (<1.2) BUN 33 H (7-17) mg/dL Glucose 153 H (74-99) mg/dL Calcium 8.3 L (8.4-10.2) mg/dL Total Creatine Kinase (30-135) U/L Assessment and Plan Assessment: Assessment #1. Acute on chronic congestive heart failure, with diastolic dysfunction #2. Increasing dyspnea, peripheral edema, acute on chronic hypoxemic respiratory failure due to the above #3. History of chronic bronchial asthma, currently inactive and stable. #4. Moderate pulmonary hypertension, and mitral regurgitation as previously noted on echo from January, #5. Wide-complex tachycardia #6. History of atrial fibrillation, flutter, on chronic anticoagulation in the form of Coumadin, therapeutic. #7. Hypertension, #8. Hyperlipidemia #9. Previous history of CVA #10. Hypothyroidism #11. Degenerative arthritis #12. History of colon cancer Plan: The patient was seen and evaluated by Dr. Garcia. Chest x-ray and labs were reviewed. Chest x-ray shows improvement in the pulmonary vascular congestion. She is diuresing well. Mariaelena on Lasix 40 mg IV push U8 hours. Echocardiogram is pending. Heart rate better controlled. She is on Cardizem drip at 10 mg per hour. No clear evidence of pneumonia. Titrate down her FiO2 as tolerated while keeping O2 saturations in 90s. We will increase her activity as tolerated. We'll continue to follow. I, the cosigning physician, performed a history & physical examination of the patient. Lungs sounds with faint crackles in the bilateral posterior bases. Maintaining good O2 saturations in the 90s on 4 L/m per nasal cannula. I discussed the assessment and plan of care with my nurse practitioner, Michelle Mckee. I attest to the above note as dictated by her.
[2018-06-18] MEDS ORDERED: AZITHROMYCIN 500 MG TAB PO SCH (12:00)
[2018-06-18] MEDS ORDERED: cefTRIAXone IN SWFI 1,000 MG/10 ML SYRINGE IVP SCH (12:14)
[2018-06-18] MEDS ORDERED: ASPIRIN 325 MG TAB PO SCH (12:15)
[2018-06-18] MEDS: cefTRIAXone IN SWFI 1,000 MG/10 ML SYRINGE IVP SCH (12:49)
--- NOTE | 2018-06-18 13:04 | ECHOF ---
Referral Reason:chf MEASUREMENTS -------- HEIGHT: 162.6 cm WEIGHT: 90.7 kg BP: 158/60 RVIDd: 3.1 cm (< 3.3) IVSd: 1.2 cm (0.6 - 1.1) LVIDd: 4.1 cm (3.9 - 5.3) LVPWd: 1.1 cm (0.6 - 1.1) IVSs: 1.8 cm LVIDs: 2.6 cm LVPWs: 1.8 cm LA Diam: 3.8 cm (2.7 - 3.8) LAESV Index (A-L): 33.97 ml/m Ao Diam: 2.9 cm (2.0 - 3.7) MV EXCURSION: 11.106 mm (> 18.000) MV EF SLOPE: 41 mm/s (70 - 150) EPSS: 0.9 cm MV E Brando: 1.59 m/s MV DecT: 276 ms MV A Brando: 1.78 m/s MV E/A Ratio: 0.90 AV maxP.02 mmHg AV meanP.75 mmHg RAP: 5.00 mmHg RVSP: 59.67 mmHg FINDINGS -------- Sinus rhythm. This was a technically adequate study. The left ventricular size is normal. There is borderline concentric left ventricular hypertrophy. Overall left ventricular systolic function is normal with, an EF between 60 - 65 %. The right ventricle is normal in size. LA is midly dilated 29-33ml/m2. The right atrium is normal in size. There is mild aortic valve sclerosis. There is mild aortic stenosis present. Peak/mean gradient a cross the Aortic Valve is 19.02mmHg / 9.75mmHg. The mitral valve leaflets are moderately thickened. Moderate mitral annular calcification present. Mild mitral regurgitation is present. The peak and mean MV gradients are 17.39mmHg 8.22mmHg as m easured by doppler. Acsl-ri-nymecvlm mitral stenosis. Mild tricuspid regurgitation present. There is moderate pulmonary hypertension. The right ventric ular systolic pressure, as measured by Doppler, is 59.67mmHg. The pulmonic valve was not well visualized. The aortic root size is normal. Normal inferior vena cava with normal inspiratory collapse consistent with estimated right atrial pre ssure of 5 mmHg. There is no pericardial effusion. CONCLUSIONS -------- 1. Sinus rhythm. 2. This was a technically adequate study. 3. The left ventricular size is normal. 4. There is borderline concentric left ventricular hypertrophy. 5. Overall left ventricular systolic function is normal with, an EF between 60 - 65 %. 6. The right ventricle is normal in size. 7. LA is midly dilated 29-33ml/m2. 8. The right atrium is normal in size. 9. There is mild aortic valve sclerosis. 10. There is mild aortic stenosis present. 11. Peak/mean gradient across the Aortic Valve is 19.02mmHg / 9.75mmHg. 12. The mitral valve leaflets are moderately thickened. 13. Moderate mitral annular calcification present. 14. Mild mitral regurgitation is present. 15. The peak and mean MV gradients are 17.39mmHg 8.22mmHg as measured by doppler. 16. Pend-kd-ebxmnwqy mitral stenosis. 17. Mild tricuspid regurgitation present. 18. There is moderate pulmonary hypertension. 19. The right ventricular systolic pressure, as measured by Doppler, is 59.67mmHg. 20. The pulmonic valve was not well visualized. 21. The aortic root size is normal. 22. Normal inferior vena cava with normal inspiratory collapse consistent with estimated right atrial pressure of 5 mmHg. 23. There is no pericardial effusion. BUSINESS CONTINUITY STRATEGY DIRECTOR: Landy Marion RDCS
[2018-06-18] MEDS: WARFARIN 7.5 MG TAB PO SCH (16:37)
--- NOTE | 2018-06-18 19:01 | PN ---
PROGRESS NOTE DATE OF SERVICE: 06/18/2018 PRESENT COMPLAINT: Cough, fever, tired. INTERVAL HISTORY: This is a patient who presented with what appears to be pneumonia and CHF exacerbation. The patient is on IV Lasix. Fevers are coming down. Cough is improving. Per Cardiology, patient is felt to be in atrial flutter/fibrillation and the patient is put on a Cardizem drip. The patient did tolerate some diet. Per pulmonary, it was felt patient does not have pneumonia. REVIEW OF SYSTEMS: Done for constitutional, cardiovascular, GI, pulmonary; relevant findings as above. CURRENT MEDICATIONS: Reviewed that include: 1. Cardizem drip. 2. IV Lasix. EXAMINATION: Temperature 97.9, pulse 101, respirations 16, blood pressure 150/60, pulse ox 97% on 4L. GENERAL APPEARANCE: Propped up in bed, tired-appearing. EYES: Pupils equal. Conjunctivae normal. HEENT: External appearance of nose and ears normal. Oral cavity normal. NECK: JVD not raised. Mass not palpable. RESPIRATORY: Effort increased. LUNGS: Decreased breath sounds. Prolonged expiration. CARDIOVASCULAR: First and second sounds normal. No edema. ABDOMEN: Soft, nontender. Liver and spleen not palpable. PSYCHIATRY: Alert and oriented x3. Mood and affect normal. EXTREMITIES: Right hand has a stump. INVESTIGATIONS: White count 5.5, hemoglobin 8.4, INR 2.1. Potassium 4.4, BUN 33, creatinine 0.87. TSH is 1.8. 1. Acute congestive heart failure from diastolic dysfunction, ejection fraction 60%- 65%, slow to respond. Patient is still on IV Lasix. 2. Gastroesophageal reflux disease. 3. Hyperlipidemia. 4. Essential hypertension. 5. Primary osteoarthritis. 6. Hypothyroidism. 7. No pneumonia per Pulmonary. 8. Chronic hypoxic respiratory failure on 2L oxygen by cannula. 9. Acute hypoxic respiratory failure from congestive heart failure. 10.History of colon cancer. 11.Rosacea. 12.Chronic urinary stress incontinence, wears pads. 13.Obesity; BMI 33.8. 14.Atrial flutter of fibrillation with a rapid ventricular rate per Cardiology. The patient is on a Cardizem drip. PLAN: Antibiotics were discontinued. The patient is on the Cardizem drip, IV Lasix. Care was discussed with the patient. Keep a close eye on the electrolytes and follow. MMODL / IJN: [id number] /
[2018-06-18] MEDS: DOCUSATE 100 MG CAP PO SCH (21:38)
[2018-06-18] MEDS: ALPRAZolam 0.25 MG TAB PO SCH (21:38)
[2018-06-18] MEDS: ATORVASTATIN 20 MG TAB PO SCH (21:38)
[2018-06-18] MEDS: CITALOPRAM HYDROBROMIDE 20 MG TAB PO SCH (21:38)
[2018-06-18] MEDS: LATANOPROST 0.005% OPHTH DROPS 2.5 ML BTL BOTH EYES SCH (21:38)
[2018-06-19] MEDS: FUROSEMIDE 10 MG/ML 4 ML VIAL IV SCH ×2 (00:10→09:17)
[2018-06-19] MEDS: DILTIAZEM 50 MG in SODIUM CHLORIDE 0.9% 40 ML IV SCH ×3 (01:12→09:18)
[2018-06-19] MEDS: IPRATROPIUM-ALBUTEROL 3 ML NEB INHALATION PRN ×3 (02:06→17:54)
[2018-06-19 06:28] LABS: Potassium 3.9 mmol/L (3.5-5.1)
[2018-06-19 06:38] LABS: INR 2.3 (<1.2)
[2018-06-19] MEDS: PANTOPRAZOLE 40 MG TABLET PO SCH (06:44)
[2018-06-19] MEDS: LEVOTHYROXINE 100 MCG TAB PO SCH (06:44)
[2018-06-19] MEDS: SYMBICORT 160-4.5 MCG INHALER INHALATION SCH ×2 (08:49→17:54)
[2018-06-19] MEDS: POTASSIUM CHLORIDE ER 10 MEQ TAB.ER.PRT PO SCH (09:17)
[2018-06-19] MEDS: METOPROLOL SUCCINATE (ER) 25 MG TAB.ER.24H PO SCH (09:17)
[2018-06-19] MEDS ORDERED: DILTIAZEM DRIP BOLUS FROM BAG 1 MG SOLN IV ONE (09:42)
[2018-06-19] MEDS: FERROUS SULFATE 325 MG TAB PO SCH (12:06)
[2018-06-19] MEDS: CALCIUM CARB-VIT D 500MG-200UN 1 EACH TAB PO SCH (12:06)
[2018-06-19] MEDS: cefTRIAXone IN SWFI 1,000 MG/10 ML SYRINGE IVP SCH (12:07)
[2018-06-19] MEDS ORDERED: DEXTROSE 5% IN WATER 100 ML with AMIODARONE 150 MG IV ONE (12:08)
[2018-06-19] MEDS: AMIODARONE 450 MG in DEXTROSE 5% IN WATER 250 ML IV SCH ×6 (12:30→21:22)
--- NOTE | 2018-06-19 12:30 | P.PN ---
<Michelle Mckee - Last Filed: 06/19/18 12:24> Subjective Progress Note Date: 06/19/18 Principal diagnosis: Acute exacerbation of diastolic congestive heart failure with atrial fibrillation and rapid ventricular response. This is an 82-year-old female with known history of COPD, hypertension , asthma, hyperlipidemia, hypothyroidism, history of colon cancer, chronic persistent atrial fibrillation, who presented to the hospital with fairly sudden onset of shortness of breath. According to the patient she was short of breath, could hardly breathe, but she states that it was only for one day. She does state that she is coughing up green-colored sputum, denies fever at home. On arrival here the patient was noted to have a temperature of 100.3. Blood pressure on arrival 150/80 with a heart rate in the 140s, 96% on 6 L of oxygen. EKG on arrival here showed atrial fibrillation with a rapid ventricular response. Patient did have an echocardiogram with Doppler study performed in January of this year which revealed an ejection fraction of 50-55%, moderate mitral regurg, mild to moderate tricuspid regurg and moderate pulmonary hypertension. Laboratory data was reviewed, white blood cell count is normal, hemoglobin on arrival 9.3, 8.4 this morning. Platelet count 71, 66 this morning. INR is 2.1. Sodium 139, potassium 4.4, BUN 33, creatinine 0.8. Troponins 0.0-3, 0.031, 0.022. BNP level 1400. Chest x-ray on admission revealed mild bibasilar infiltrates, correlate for pneumonia and atelectasis. Chest x-ray performed this morning revealed a mild residual pulmonary vascular congestion, aeration improved from prior exam. Patient was given a bolus of IV Cardizem on admission here, started on IV antibiotics as well as IV Lasix. At the time of my examination this morning, patient still complains of feeling short of breath, she does state however that her symptoms are much improved from admission here. This morning patient is in a sinus tachycardia. Patient is seen today 06/18/2018 in follow-up on the selective care unit. She is currently awake and alert in no acute distress. Sitting up in bed she is breathing easier today as compared to yesterday but not quite back to her baseline. Her chest x-ray shows improvement in the pulmonary vascular congestion. He is maintaining good O2 saturations in the upper 90s on 4 L/m per nasal cannula. She's been afebrile. Her heart rate is better controlled. She is on a Cardizem drip at 10 mg per hour. Anticoagulated with warfarin. She is currently in a negative balance. Weight is equivocal. Count 5.5. Hemoglobin 8.4. INR 2.1. Creatinine 0.87. TSH 1.86. Remains on Lasix 40 mg IV push every 8 hours. The patient is seen again today 06/29/2018 in follow-up on the selective care unit. She is currently sitting up in a chair at the bedside. She is awake and alert in no acute distress. She is breathing quite a bit easier today as compared to previous days. No worsening shortness of breath, cough or congestion. Maintaining good O2 saturations in the 90s on 4 L/m per nasal cannula. She's been afebrile. She has been having ongoing issues with atrial flutter and rapid ventricular rates being followed by cardiology. The plan is to add amiodarone. She is continued on IV Lasix every 8 hours. She remains in a negative balance. Her weight is down 2 more kilograms. Creatinine 0.80. INR 2.3. Objective - Vital Signs Vital signs: Vital Signs Temp 97.7 F 06/19/18 08:00 Pulse 96 06/19/18 12:19 Resp 18 06/19/18 08:00 BP 138/60 06/19/18 08:00 Pulse Ox 93 L 06/19/18 08:50 Intake & Output 06/18/18 06/19/18 06/19/18 18:59 06:59 18:59 Intake Total 580 85.833 385.667 Output Total 600 Balance 580 -514.167 385.667 Weight 88.9 kg Intake: Intake, IV Titration 100 85.833 25.667 Amount Diltiazem 50 mg In Sodium 100 85.833 25.667 Chloride 0.9% 40 ml @ 10 MG/HR 10 mls/hr IV .Q5H [facility] Rx#:[id number] Oral 480 360 Output: Urine 600 Other: Voiding Method Bedside Commode Bedside Commode # Voids 2 2 # Bowel Movements 0 1 - Exam - Constitutional General appearance: cooperative, no acute distress - EENT Eyes: EOMI, PERRLA ENT: NA/AT, normal oropharynx Ears: bilateral: normal - Neck Neck: no lymphadenopathy Carotids: bilateral: upstroke normal Thyroid: bilateral: normal size - Respiratory Respiratory: bilateral: rales - Cardiovascular Rhythm: irregularly irregular tachycardic Heart sounds: normal: S1, S2 Abnormal Heart Sounds: Diastolic murmur Diastolic murmur (1) Location: apex ankle Peripheral Edema: bilateral: 1+ leg Peripheral Edema: bilateral: Trace - Gastrointestinal General gastrointestinal: no organomegaly, soft, no tenderness - Neurologic Neurologic: CNII-XII intact - Musculoskeletal Musculoskeletal: generalized weakness, strength equal bilaterally - Psychiatric Psychiatric: A&O x's 3, appropriate affect, intact judgment & insight - Labs CBC & Chem 7: 06/18/18 05:38 06/19/18 05:58 Labs: Abnormal Lab Results - Last 24 Hours (Table) 06/19/18 06/19/18 Range/Units 05:58 05:58 PT 21.0 H (9.0-12.0) sec INR 2.3 H (<1.2) BUN 39 H (7-17) mg/dL Glucose 113 H (74-99) mg/dL Calcium 8.0 L (8.4-10.2) mg/dL Microbiology - Last 24 Hours (Table) 06/17/18 10:29 Blood Culture - Preliminary Blood No Growth after 24 hours Assessment and Plan Assessment: Assessment #1. Acute on chronic congestive heart failure, with diastolic dysfunction. Preserved LV function with ejection fraction 60-65%. #2. Increasing dyspnea, peripheral edema, acute on chronic hypoxemic respiratory failure due to the above #3. History of chronic bronchial asthma, currently inactive and stable. #4. Moderate pulmonary hypertension, RVSP 59.67 mmHg. #5. Wide-complex tachycardia #6. Atrial fibrillation, flutter, currently with RVR, on chronic anticoagulation in the form of Coumadin, therapeutic. #7. Hypertension, #8. Hyperlipidemia #9. Previous history of CVA #10. Hypothyroidism #11. Degenerative arthritis #12. History of colon cancer Plan: The patient was seen and evaluated by Dr. Patel. She is diuresing well. We will decrease Lasix to 40 mg IV push daily. Repeat a chest x-ray in the a.m. She's been initiated on amiodarone for better heart rate control. Titrate down her FiO2 as tolerated while keeping O2 saturations in 90s. She does have home oxygen. We will increase her activity as tolerated. We'll continue to follow. I, the cosigning physician, performed a history & physical examination of the patient. Lungs sounds with faint crackles in the bilateral posterior bases. Maintaining good O2 saturations in the 90s on 4 L/m per nasal cannula. I discussed the assessment and plan of care with my nurse practitioner, Michelle Mckee. I attest to the above note as dictated by her. <Dagoberto Patel - Last Filed: 06/19/18 13:44> Objective - Vital Signs Vital signs: Vital Signs Temp 97.7 F 06/19/18 08:00 Pulse 96 06/19/18 12:19 Resp 18 06/19/18 08:00 BP 138/60 06/19/18 08:00 Pulse Ox 93 L 06/19/18 08:50 Intake & Output 06/18/18 06/19/18 06/19/18 18:59 06:59 18:59 Intake Total 580 85.833 385.667 Output Total 600 Balance 580 -514.167 385.667 Weight 88.9 kg Intake: Intake, IV Titration 100 85.833 25.667 Amount Diltiazem 50 mg In Sodium 100 85.833 25.667 Chloride 0.9% 40 ml @ 10 MG/HR 10 mls/hr IV .Q5H [facility] Rx#:[id number] Oral 480 360 Output: Urine 600 Other: Voiding Method Bedside Commode Bedside Commode # Voids 2 2 # Bowel Movements 0 1 - Labs CBC & Chem 7: 06/18/18 05:38 06/19/18 05:58 Labs: Abnormal Lab Results - Last 24 Hours (Table) 06/19/18 06/19/18 Range/Units 05:58 05:58 PT 21.0 H (9.0-12.0) sec INR 2.3 H (<1.2) BUN 39 H (7-17) mg/dL Glucose 113 H (74-99) mg/dL Calcium 8.0 L (8.4-10.2) mg/dL Microbiology - Last 24 Hours (Table) 06/17/18 10:29 Blood Culture - Preliminary Blood No Growth after 48 hours Assessment and Plan Assessment: The patient is being seen in follow-up along with a nurse practitioner. This is a joint evaluation. The patient has CHF with diastolic dysfunction. She was diuresed adequately and the subsequent chest x-ray shows improvement the volume status. The patient on Lasix 43 g IV push every 8 hours. This will be tapered down to 40 mg once a day. Monitor oxygenation. Monitor electrolytes. Monitor renal function. She is still having episodes of A. fib with RVR. Based on that, cardiology is considering the initiation of amiodarone therapy for better rate control. The patient overall is doing well. No other specific complaints. We'll continue to follow. She is on him within for long-term and anti- coagulation and there INR is therapeutic.
[2018-06-19 15:06] VITALS: BMI 33.6
[2018-06-19] MEDS: VITAMIN E (DL,TOCOPHERYL ACET) 400 UNIT CAP PO SCH (17:38)
[2018-06-19] MEDS: WARFARIN 7.5 MG TAB PO SCH (17:39)
[2018-06-19] MEDS: ALPRAZolam 0.25 MG TAB PO SCH (20:48)
[2018-06-19] MEDS: LATANOPROST 0.005% OPHTH DROPS 2.5 ML BTL BOTH EYES SCH (20:48)
[2018-06-19] MEDS: CITALOPRAM HYDROBROMIDE 20 MG TAB PO SCH (20:48)
[2018-06-19] MEDS: ATORVASTATIN 20 MG TAB PO SCH (20:48)
[2018-06-19] MEDS: DOCUSATE 100 MG CAP PO SCH (20:48)
--- NOTE | 2018-06-19 22:05 | PN ---
PROGRESS NOTE DATE OF SERVICE: 06/19/2018 PRESENTING COMPLAINT: Short of breath, cough. INTERVAL HISTORY: Patient was admitted with CHF exacerbation. Per Pulmonary, there is no pneumonia. She also had atrial flutter/fibrillation, uncontrolled. Still having bursts of increased heart rate. Patient was started on IV amiodarone. Breathing is better. Sitting up. Did tolerate some diet. IV Lasix has been scaled back. Patient was out of bed. REVIEW OF SYSTEMS: Done for constitutional, cardiovascular, GI, pulmonary; relevant findings as above. CURRENT MEDICATIONS: Reviewed. They include IV amiodarone, IV ceftriaxone, Coumadin. PHYSICAL EXAMINATION: Temperature 98.1, pulse 74, respiration 18, blood pressure 132/67, pulse ox 95% on 2 L. GENERAL APPEARANCE: Sitting up, awake. EYES: Pupils equal. Conjunctivae normal. HEENT: External appearance of nose and ears normal. Oral cavity normal. NECK: JVD not raised. Mass not palpable. RESPIRATORY: Effort increased. LUNGS: Decreased breath sounds. Improved air entry. CARDIOVASCULAR: Heart sounds irregular. No edema. ABDOMEN: Soft, non-tender. Liver and spleen not palpable. PSYCHIATRY: Alert and oriented x3. Mood and affect normal. EXTREMITIES: Right hand has a stump. INVESTIGATIONS: White count 5.5, hemoglobin 8.4, INR 2.3, potassium 3.9, BUN 39, creatinine 0.80. ASSESSMENT: 1. Acute congestive heart failure exacerbation from diastolic dysfunction, ejection fraction 60% to 65%, improving. 2. Gastroesophageal reflux disease. 3. Hyperlipidemia. 4. Essential hypertension. 5. Primary osteoarthritis. 6. Hypothyroidism. 7. No pneumonia per Pulmonary. 8. Chronic hypoxic respiratory failure, on 2.5 L oxygen by nasal cannula. 9. Acute hypoxic respiratory failure from congestive heart failure, present on admission. 10.History of colon cancer. 11.Rosacea. 12.Chronic urinary stress incontinence. Wears pads. 13.Obesity; body mass index 33.8. 14.Atrial flutter/fibrillation with bursts of rapid rate, still uncontrolled. Patient has been taken off Cardizem drip, now on IV amiodarone. PLAN: IV Cardizem was taken off. Patient is on IV amiodarone. Continue with IV Lasix. Patient remains on IV ceftriaxone. Follow with Cardiology and Pulmonary. MMODL / IJN: [id number] /
[2018-06-20] MEDS: IPRATROPIUM-ALBUTEROL 3 ML NEB INHALATION PRN ×5 (02:35→19:43)
[2018-06-20] MEDS: AMIODARONE 450 MG in DEXTROSE 5% IN WATER 250 ML IV SCH ×4 (02:41→12:44)
[2018-06-20] MEDS: LEVOTHYROXINE 100 MCG TAB PO SCH (06:26)
[2018-06-20] MEDS: PANTOPRAZOLE 40 MG TABLET PO SCH (06:26)
[2018-06-20 06:55] LABS: INR 2.1 (<1.2); Prothrombin Time 19.4 sec (9.0-12.0)
[2018-06-20 07:14] LABS: Potassium 3.7 mmol/L (3.5-5.1)
[2018-06-20] MEDS: POTASSIUM CHLORIDE ER 10 MEQ TAB.ER.PRT PO SCH (08:30)
[2018-06-20] MEDS: METOPROLOL SUCCINATE (ER) 25 MG TAB.ER.24H PO SCH (08:30)
[2018-06-20] MEDS: FUROSEMIDE 10 MG/ML 4 ML VIAL IV SCH (08:30)
[2018-06-20] MEDS: SYMBICORT 160-4.5 MCG INHALER INHALATION SCH ×2 (08:43→21:01)
[2018-06-20] MEDS: FERROUS SULFATE 325 MG TAB PO SCH (11:28)
[2018-06-20] MEDS: cefTRIAXone IN SWFI 1,000 MG/10 ML SYRINGE IVP SCH (11:28)
[2018-06-20] MEDS: CALCIUM CARB-VIT D 500MG-200UN 1 EACH TAB PO SCH (11:28)
--- NOTE | 2018-06-20 12:37 | P.PN ---
Subjective Progress Note Date: 06/20/18 This is an 82-year-old female with known history of COPD, hypertension , asthma, hyperlipidemia, hypothyroidism, history of colon cancer, chronic persistent atrial fibrillation, who presented to the hospital with fairly sudden onset of shortness of breath. According to the patient she was short of breath, could hardly breathe, but she states that it was only for one day. She does state that she is coughing up green-colored sputum, denies fever at home. On arrival here the patient was noted to have a temperature of 100.3. Blood pressure on arrival 150/80 with a heart rate in the 140s, 96% on 6 L of oxygen. EKG on arrival here showed atrial fibrillation with a rapid ventricular response. Patient did have an echocardiogram with Doppler study performed in January of this year which revealed an ejection fraction of 50-55%, moderate mitral regurg, mild to moderate tricuspid regurg and moderate pulmonary hypertension. Laboratory data was reviewed, white blood cell count is normal, hemoglobin on arrival 9.3, 8.4 this morning. Platelet count 71, 66 this morning. INR is 2.1. Sodium 139, potassium 4.4, BUN 33, creatinine 0.8. Troponins 0.0-3, 0.031, 0.022. BNP level 1400. Chest x-ray on admission revealed mild bibasilar infiltrates, correlate for pneumonia and atelectasis. Chest x-ray performed this morning revealed a mild residual pulmonary vascular congestion, aeration improved from prior exam. Patient was given a bolus of IV Cardizem on admission here, started on IV antibiotics as well as IV Lasix. At the time of my examination this morning, patient still complains of feeling short of breath, she does state however that her symptoms are much improved from admission here. This morning patient is in a sinus tachycardia. 06/20/2018 History patient was in rapid atrial flutter, was on Cardizem drip, converted to normal sinus rhythm. She then was initiated on IV amiodarone drip. This morning she continues to be in atrial flutter, her heart rate is in the 120 to 1 :30 range. We will increase her dose of beta amara that she is on. Once the IV amiodarone was discontinued and we'll start the patient on oral amiodarone. Echocardiogram with Doppler study was performed which revealed an ejection fraction of 60-65%. Mild to moderate mitral stenosis. Moderate pulmonary hypertension. Blood pressure this morning 132/70, heart rate in the 120 range this morning. 95% on 3 L of oxygen. INR today is 2.1. Sodium 141, potassium 3.7, BUN 34, creatinine 0.9. TSH is normal. Overall the patient feels well, she continues to have cough today, denies any shortness of breath. No palpitations. Objective - Vital Signs Vital signs: Vital Signs Temp 97.6 F 06/20/18 11:39 Pulse 85 06/20/18 11:59 Resp 20 06/20/18 11:39 BP 137/70 06/20/18 11:39 Pulse Ox 95 06/20/18 11:39 Intake & Output 06/19/18 06/20/18 06/20/18 18:59 06:59 18:59 Intake Total 805.667 289.000 240 Output Total 300 900 Balance 805.667 -11.000 -660 Weight 88.9 kg 89.2 kg Intake: IV 30 0.9 Normal Saline 30 Intake, IV Titration 25.667 259.000 Amount Amiodarone 450 mg In 259.000 Dextrose 5% in Water 250 ml @ 1 MG/MIN 34.53 mls/ hr IV .Q7H31M [facility] Rx#: [id number] Diltiazem 50 mg In Sodium 25.667 Chloride 0.9% 40 ml @ 15 MG/HR 15 mls/hr IV . Q3H20M [facility] Rx#:[id number] Oral 780 240 Output: Urine 300 900 Other: Voiding Method Bedside Commode Bedside Commode # Voids 3 2 # Bowel Movements 2 1 - Exam PHYSICAL EXAMINATION: GENERAL: 82-year-old female in no acute distress at the time of my examination HEENT: Head is atraumatic, normocephalic. Pupils equal, round. Sclera anicteric. Conjunctiva are clear. Mucous membranes of the mouth are moist. Neck is supple. There is elevated jugular venous pressure. No carotid bruit is heard. HEART EXAMINATION: Heart S1 and S2 irregularly irregular systolic murmur is heard. CHEST EXAMINATION: Lungs reveal scattered coarse rhonchi and wheezing throughout ABDOMEN: Soft, obese, nontender. Bowel sounds are heard. No organomegaly noted. EXTREMITIES: 2+ peripheral pulses with no evidence of peripheral edema and no calf tenderness noted. NEUROLOGIC patient is awake, alert and oriented X3. - Labs CBC & Chem 7: 06/18/18 05:38 06/20/18 06:11 Labs: Abnormal Lab Results - Last 24 Hours (Table) 06/20/18 06/20/18 Range/Units 06:11 06:11 PT 19.4 H (9.0-12.0) sec INR 2.1 H (<1.2) BUN 34 H (7-17) mg/dL Glucose 123 H (74-99) mg/dL Calcium 8.0 L (8.4-10.2) mg/dL Microbiology - Last 24 Hours (Table) 06/17/18 10:29 Blood Culture - Preliminary Blood No Growth after 48 hours Assessment and Plan Plan: Assessment and plan #1 symptoms of fairly sudden onset of shortness of breath, congestive heart failure, LV function in January of this year documented to be 50-55%, diastolic, acute on chronic. #2 atrial flutter with rapid ventricular response, typical, history of a chronic persistent atrial fibrillation, on Coumadin for anticoagulation. #3 COPD, possible pneumonia on chest x-ray #4 hypertension #5 hyperlipidemia #6 prior history of smoking #7 anemia, upon review of records back to 2014, it is noted that the patient runs a hemoglobin in the range of 8.4. Patient has history of colon cancer Plan We will increase the dose of beta amara. Once the IV amiodarone is discontinued we will start the patient on oral amiodarone. Repeat chest x-ray in the morning. DNP note has been reviewed, I agree with a documented findings and plan of care. Patient was seen and examined.
[2018-06-20] MEDS: METOPROLOL TARTRATE 25 MG TAB PO SCH ×3 (12:54→20:44)
[2018-06-20] MEDS: AMIODARONE 200 MG TAB PO SCH ×2 (13:28→20:45)
--- NOTE | 2018-06-20 15:21 | PN ---
PROGRESS NOTE DATE OF SERVICE: 06/20/2018 PRESENTING COMPLAINT: Heart racing. INTERVAL HISTORY: Patient was admitted with CHF exacerbation and atrial flutter/fibrillation, uncontrolled. Heart rate still remains uncontrolled. Breathing is better, though having heart racing. Tired and rundown. Lying in bed. No cough. Did tolerate some diet. REVIEW OF SYSTEMS: Done for constitutional, cardiovascular, GI, pulmonary; relevant findings as above. CURRENT MEDICATIONS: Reviewed. They include p.o. Cordarone, IV ceftriaxone, IV Lasix 40 mg a day. PHYSICAL EXAMINATION: Temperature 97.5, pulse 120, respiration 18, blood pressure 137/70, pulse ox 95% on 3 L. GENERAL APPEARANCE: Lying in bed, awake, tired-appearing. EYES: Pupils equal. Conjunctivae normal. HEENT: External appearance of nose and ears normal. Oral cavity normal. NECK: JVD not raised. Mass not palpable. RESPIRATORY: Effort increased. LUNGS: Decreased breath sounds. CARDIOVASCULAR: Heart sounds irregular. No edema. ABDOMEN: Soft, non-tender. Liver and spleen not palpable. PSYCHIATRY: Alert and oriented x3. Mood and affect normal. EXTREMITIES: Right hand has a stump. INVESTIGATIONS: Telemetry shows atrial fibrillation with rate uncontrolled. INR 2.1. Potassium 3.7, BUN 34, creatinine 0.96. ASSESSMENT: 1. Acute congestive heart failure exacerbation from diastolic dysfunction, ejection fraction 60% to 65%, improved. 2. Gastroesophageal reflux disease. 3. Hyperlipidemia. 4. Essential hypertension. 5. Primary osteoarthritis. 6. Hypothyroidism. 7. No pneumonia per Pulmonary. 8. Chronic hypoxic respiratory failure, on 2.5 liters of oxygen by nasal cannula. 9. Acute hypoxic respiratory failure from congestive heart failure, present on admission. 10.History of colon cancer. 11.Rosacea. 12.Chronic urinary stress incontinence. Wears pads. 13.Obesity; body mass index of 33.8. 14.Persistent atrial flutter/fibrillation remains uncontrolled. Patient was on IV Cardizem and IV amiodarone, now currently on p.o. amiodarone. PLAN: Continue current medication and treatment plan, including IV Lasix. Follow up with Cardiology and Pulmonary. Care was discussed with the patient. MMODL / IJN: [id number] /
--- NOTE | 2018-06-20 15:23 | P.PN ---
Subjective Progress Note Date: 06/20/18 This is an 82-year-old female with known history of COPD, hypertension , asthma, hyperlipidemia, hypothyroidism, history of colon cancer, chronic persistent atrial fibrillation, who presented to the hospital with fairly sudden onset of shortness of breath. According to the patient she was short of breath, could hardly breathe, but she states that it was only for one day. She does state that she is coughing up green-colored sputum, denies fever at home. On arrival here the patient was noted to have a temperature of 100.3. Blood pressure on arrival 150/80 with a heart rate in the 140s, 96% on 6 L of oxygen. EKG on arrival here showed atrial fibrillation with a rapid ventricular response. Patient did have an echocardiogram with Doppler study performed in January of this year which revealed an ejection fraction of 50-55%, moderate mitral regurg, mild to moderate tricuspid regurg and moderate pulmonary hypertension. Laboratory data was reviewed, white blood cell count is normal, hemoglobin on arrival 9.3, 8.4 this morning. Platelet count 71, 66 this morning. INR is 2.1. Sodium 139, potassium 4.4, BUN 33, creatinine 0.8. Troponins 0.0-3, 0.031, 0.022. BNP level 1400. Chest x-ray on admission revealed mild bibasilar infiltrates, correlate for pneumonia and atelectasis. Chest x-ray performed this morning revealed a mild residual pulmonary vascular congestion, aeration improved from prior exam. Patient was given a bolus of IV Cardizem on admission here, started on IV antibiotics as well as IV Lasix. At the time of my examination this morning, patient still complains of feeling short of breath, she does state however that her symptoms are much improved from admission here. This morning patient is in a sinus tachycardia. Patient is seen today 06/18/2018 in follow-up on the selective care unit. She is currently awake and alert in no acute distress. Sitting up in bed she is breathing easier today as compared to yesterday but not quite back to her baseline. Her chest x-ray shows improvement in the pulmonary vascular congestion. He is maintaining good O2 saturations in the upper 90s on 4 L/m per nasal cannula. She's been afebrile. Her heart rate is better controlled. She is on a Cardizem drip at 10 mg per hour. Anticoagulated with warfarin. She is currently in a negative balance. Weight is equivocal. Count 5.5. Hemoglobin 8.4. INR 2.1. Creatinine 0.87. TSH 1.86. Remains on Lasix 40 mg IV push every 8 hours. The patient is seen again today 06/29/2018 in follow-up on the selective care unit. She is currently sitting up in a chair at the bedside. She is awake and alert in no acute distress. She is breathing quite a bit easier today as compared to previous days. No worsening shortness of breath, cough or congestion. Maintaining good O2 saturations in the 90s on 4 L/m per nasal cannula. She's been afebrile. She has been having ongoing issues with atrial flutter and rapid ventricular rates being followed by cardiology. The plan is to add amiodarone. She is continued on IV Lasix every 8 hours. She remains in a negative balance. Her weight is down 2 more kilograms. Creatinine 0.80. INR 2.3. On 06/20/2018 I'm seeing this patient for a follow-up. She is doing essentially the same as yesterday. The active issue remains her A. fib/flutter with rapid ventricular response. The patient was on Cardizem and she converted to normal sinus rhythm. Subsequently she started having episodes of A. fib/ flutter and she was initiated on amiodarone drip. She continues to have a flutter at the rate of 120/1:30. She is also on beta blockers and the dose will be adjusted by cardiology. Echocardiogram was done and the left ejection fraction is on 6065%. She has moderate degree of pulmonary hypertension. She is on oxygen 3 L/m and her pulse ox 95%. She is being diuresis with IV Lasix and dose has been gradually weaned off as the patient's fluid balance is being optimized. The patient is currently taking Lasix 40 mg once a day. She is also on anti-coagulation with warfarin and INR is therapeutic for now. Objective - Vital Signs Vital signs: Vital Signs Temp 97.6 F 06/20/18 11:39 Pulse 85 06/20/18 11:59 Resp 20 06/20/18 11:39 BP 137/70 06/20/18 11:39 Pulse Ox 95 06/20/18 11:39 Intake & Output 06/19/18 06/20/18 06/20/18 18:59 06:59 18:59 Intake Total 805.667 289.000 390 Output Total 300 900 Balance 805.667 -11.000 -510 Weight 88.9 kg 89.2 kg Intake: IV 30 0.9 Normal Saline 30 Intake, IV Titration 25.667 259.000 Amount Amiodarone 450 mg In 259.000 Dextrose 5% in Water 250 ml @ 1 MG/MIN 34.53 mls/ hr IV .Q7H31M ANGELA Rx#: [id number] Diltiazem 50 mg In Sodium 25.667 Chloride 0.9% 40 ml @ 15 MG/HR 15 mls/hr IV . Q3H20M ANGELA Rx#:[id number] Oral 780 390 Output: Urine 300 900 Other: Voiding Method Bedside Commode Bedside Commode # Voids 3 2 # Bowel Movements 2 1 - Exam - Constitutional General appearance: cooperative, no acute distress - EENT Eyes: EOMI, PERRLA ENT: NA/AT, normal oropharynx Ears: bilateral: normal - Neck Neck: no lymphadenopathy Carotids: bilateral: upstroke normal Thyroid: bilateral: normal size - Respiratory Respiratory: bilateral: rales - Cardiovascular Rhythm: irregularly irregular tachycardic Heart sounds: normal: S1, S2 Abnormal Heart Sounds: Diastolic murmur Diastolic murmur (1) Location: apex ankle Peripheral Edema: bilateral: 1+ leg Peripheral Edema: bilateral: Trace - Gastrointestinal General gastrointestinal: no organomegaly, soft, no tenderness - Neurologic Neurologic: CNII-XII intact - Musculoskeletal Musculoskeletal: generalized weakness, strength equal bilaterally - Psychiatric Psychiatric: A&O x's 3, appropriate affect, intact judgment & insight - Labs CBC & Chem 7: 06/18/18 05:38 06/20/18 06:11 Labs: Abnormal Lab Results - Last 24 Hours (Table) 06/20/18 06/20/18 Range/Units 06:11 06:11 PT 19.4 H (9.0-12.0) sec INR 2.1 H (<1.2) BUN 34 H (7-17) mg/dL Glucose 123 H (74-99) mg/dL Calcium 8.0 L (8.4-10.2) mg/dL Microbiology - Last 24 Hours (Table) 06/17/18 10:29 Blood Culture - Preliminary Blood No Growth after 72 hours Assessment and Plan Assessment: #1. Acute on chronic congestive heart failure, with diastolic dysfunction. Preserved LV function with ejection fraction 60-65%. #2. Atrial fibrillation/flutter with rapid ventricular response currently on a combination of amiodarone drip and the patient is also on metoprolol 25 mg 4 times a day. The patient is on long-term and to coagulation with warfarin and the PT/INR is therapeutic for now. #3. History of chronic bronchial asthma, currently inactive and stable. #4. Moderate pulmonary hypertension, RVSP 59.67 mmHg. #5. Acute shortness of breath and acute hypoxic respiratory failure secondary to above #6. Wide complex rhythm related to a left bundle branch block pattern in the setting of atrial fibrillation/flutter. #7. Hypertension, #8. Hyperlipidemia #9. Previous history of CVA #10. Hypothyroidism #11. Degenerative arthritis #12. History of colon cancer Plan Continue amiodarone drip. Increase the beta amara dose. Control the heart rate. Continued IV Lasix. Wean down the FiO2. Monitor renal function. Continued fibrillation with Coumadin and INR is therapeutic. We'll continue to follow.
[2018-06-20] MEDS: WARFARIN 7.5 MG TAB PO SCH (17:52)
[2018-06-20] MEDS: VITAMIN E (DL,TOCOPHERYL ACET) 400 UNIT CAP PO SCH (17:52)
[2018-06-20] MEDS: ALPRAZolam 0.25 MG TAB PO SCH (20:43)
[2018-06-20] MEDS: DOCUSATE 100 MG CAP PO SCH (20:44)
[2018-06-20] MEDS: CITALOPRAM HYDROBROMIDE 20 MG TAB PO SCH (20:44)
[2018-06-20] MEDS: ATORVASTATIN 20 MG TAB PO SCH (20:44)
[2018-06-20] MEDS: LATANOPROST 0.005% OPHTH DROPS 2.5 ML BTL BOTH EYES SCH (20:44)
[2018-06-21] MEDS: LEVOTHYROXINE 100 MCG TAB PO SCH (06:10)
[2018-06-21] MEDS: PANTOPRAZOLE 40 MG TABLET PO SCH (06:10)
[2018-06-21 06:47] LABS: Calcium 8.8 mg/dL (8.4-10.2); Potassium 4.3 mmol/L (3.5-5.1)
[2018-06-21 06:49] LABS: INR 2.2 (<1.2); Prothrombin Time 19.5 sec (9.0-12.0)
--- NOTE | 2018-06-21 06:58 | XR ---
EXAMINATION TYPE: XR chest 2V DATE OF EXAM: 06/21/2018 HISTORY: f/u chf. REFERENCE: Previous study dated 06/18/2018. FINDINGS: The heart is mildly enlarged. There is vascular congestion and mild edema. There is some bl unting of the left CP angle and I could not exclude a small left effusion. There is prominence of the right pulmonary artery. This may reflect pulmonary artery hypertension. IMPRESSION: 1. MILD CHANGES OF HEART FAILURE. 2. I CANNOT EXCLUDE A SMALL LEFT EFFUSION. 3. FINDINGS SUGGESTIVE OF PULMONARY ARTERY HYPERTENSION.
[2018-06-21] MEDS: SYMBICORT 160-4.5 MCG INHALER INHALATION SCH ×2 (08:22→20:04)
[2018-06-21] MEDS: IPRATROPIUM-ALBUTEROL 3 ML NEB INHALATION PRN ×2 (08:22→11:36)
[2018-06-21] MEDS: FUROSEMIDE 10 MG/ML 4 ML VIAL IV SCH (09:46)
[2018-06-21] MEDS: METOPROLOL TARTRATE 25 MG TAB PO SCH ×4 (09:46→19:56)
[2018-06-21] MEDS: AMIODARONE 200 MG TAB PO SCH ×2 (09:46→19:52)
[2018-06-21] MEDS: POTASSIUM CHLORIDE ER 10 MEQ TAB.ER.PRT PO SCH (09:47)
[2018-06-21] MEDS: oxyCODONE-APAP 5-325MG 1 EACH TAB PO PRN (10:53)
--- NOTE | 2018-06-21 11:07 | P.PN ---
Subjective Progress Note Date: 06/21/18 Principal diagnosis: Acute on chronic congestive heart failure with diastolic dysfunction. A. fib RVR, currently in sinus rhythm This is an 82-year-old female with known history of COPD, hypertension , asthma, hyperlipidemia, hypothyroidism, history of colon cancer, chronic persistent atrial fibrillation, who presented to the hospital with fairly sudden onset of shortness of breath. According to the patient she was short of breath, could hardly breathe, but she states that it was only for one day. She does state that she is coughing up green-colored sputum, denies fever at home. On arrival here the patient was noted to have a temperature of 100.3. Blood pressure on arrival 150/80 with a heart rate in the 140s, 96% on 6 L of oxygen. EKG on arrival here showed atrial fibrillation with a rapid ventricular response. Patient did have an echocardiogram with Doppler study performed in January of this year which revealed an ejection fraction of 50-55%, moderate mitral regurg, mild to moderate tricuspid regurg and moderate pulmonary hypertension. Laboratory data was reviewed, white blood cell count is normal, hemoglobin on arrival 9.3, 8.4 this morning. Platelet count 71, 66 this morning. INR is 2.1. Sodium 139, potassium 4.4, BUN 33, creatinine 0.8. Troponins 0.0-3, 0.031, 0.022. BNP level 1400. Chest x-ray on admission revealed mild bibasilar infiltrates, correlate for pneumonia and atelectasis. Chest x-ray performed this morning revealed a mild residual pulmonary vascular congestion, aeration improved from prior exam. Patient was given a bolus of IV Cardizem on admission here, started on IV antibiotics as well as IV Lasix. At the time of my examination this morning, patient still complains of feeling short of breath, she does state however that her symptoms are much improved from admission here. This morning patient is in a sinus tachycardia. Patient is seen today 06/18/2018 in follow-up on the selective care unit. She is currently awake and alert in no acute distress. Sitting up in bed she is breathing easier today as compared to yesterday but not quite back to her baseline. Her chest x-ray shows improvement in the pulmonary vascular congestion. He is maintaining good O2 saturations in the upper 90s on 4 L/m per nasal cannula. She's been afebrile. Her heart rate is better controlled. She is on a Cardizem drip at 10 mg per hour. Anticoagulated with warfarin. She is currently in a negative balance. Weight is equivocal. Count 5.5. Hemoglobin 8.4. INR 2.1. Creatinine 0.87. TSH 1.86. Remains on Lasix 40 mg IV push every 8 hours. The patient is seen again today 06/29/2018 in follow-up on the selective care unit. She is currently sitting up in a chair at the bedside. She is awake and alert in no acute distress. She is breathing quite a bit easier today as compared to previous days. No worsening shortness of breath, cough or congestion. Maintaining good O2 saturations in the 90s on 4 L/m per nasal cannula. She's been afebrile. She has been having ongoing issues with atrial flutter and rapid ventricular rates being followed by cardiology. The plan is to add amiodarone. She is continued on IV Lasix every 8 hours. She remains in a negative balance. Her weight is down 2 more kilograms. Creatinine 0.80. INR 2.3. On 06/20/2018 I'm seeing this patient for a follow-up. She is doing essentially the same as yesterday. The active issue remains her A. fib/flutter with rapid ventricular response. The patient was on Cardizem and she converted to normal sinus rhythm. Subsequently she started having episodes of A. fib/ flutter and she was initiated on amiodarone drip. She continues to have a flutter at the rate of 120/1:30. She is also on beta blockers and the dose will be adjusted by cardiology. Echocardiogram was done and the left ejection fraction is on 6065%. She has moderate degree of pulmonary hypertension. She is on oxygen 3 L/m and her pulse ox 95%. She is being diuresis with IV Lasix and dose has been gradually weaned off as the patient's fluid balance is being optimized. The patient is currently taking Lasix 40 mg once a day. She is also on anti-coagulation with warfarin and INR is therapeutic for now. On 06/21/2018 patient seen in follow-up on selective care unit. She is resting in bed, in no acute distress, yesterday patient went into atrial fibrillation/ flutter with accelerated rate, was placed on amiodarone drip, and she is currently in sinus rhythm with a controlled rate. Room air pulse ox is 95%, lung sounds reveal bibasilar rales, there is trace pretibial edema bilaterally. Chest x-ray shows a small left pleural effusion. Patient is improving, less short of breath, she has been transitioned to oral amiodarone, INR is therapeutic today at 2.2. Objective - Vital Signs Vital signs: Vital Signs Temp 97.5 F L 06/21/18 06:08 Pulse 88 06/21/18 08:32 Resp 18 06/21/18 08:00 BP 160/69 06/21/18 06:08 Pulse Ox 95 06/21/18 06:08 Intake & Output 06/20/18 06/21/18 06/21/18 18:59 06:59 18:59 Intake Total 390 240 Output Total 1600 700 Balance -1210 -460 Weight 89.5 kg Intake: Oral 390 240 Output: Urine 1600 700 Other: Voiding Method Bedside Commode Bedside Commode Bedside Commode # Voids 2 1 # Bowel Movements 1 1 - Exam - Constitutional General appearance: cooperative, no acute distress - EENT Eyes: EOMI, PERRLA ENT: NA/AT, normal oropharynx Ears: bilateral: normal - Neck Neck: no lymphadenopathy Carotids: bilateral: upstroke normal Thyroid: bilateral: normal size - Respiratory Respiratory: bilateral: rales - Cardiovascular Rhythm: irregularly irregular tachycardic Heart sounds: normal: S1, S2 Abnormal Heart Sounds: Diastolic murmur Diastolic murmur (1) Location: apex ankle Peripheral Edema: bilateral: 1+ leg Peripheral Edema: bilateral: Trace - Gastrointestinal General gastrointestinal: no organomegaly, soft, no tenderness - Neurologic Neurologic: CNII-XII intact - Musculoskeletal Musculoskeletal: generalized weakness, strength equal bilaterally - Psychiatric Psychiatric: A&O x's 3, appropriate affect, intact judgment & insight - Labs CBC & Chem 7: 06/18/18 05:38 06/21/18 06:18 Labs: Abnormal Lab Results - Last 24 Hours (Table) 06/21/18 06/21/18 Range/Units 06:18 06:18 PT 19.5 H (9.0-12.0) sec INR 2.2 H (<1.2) BUN 32 H (7-17) mg/dL Glucose 113 H (74-99) mg/dL Microbiology - Last 24 Hours (Table) 06/17/18 10:29 Blood Culture - Preliminary Blood No Growth after 72 hours Assessment and Plan Plan: Assessment #1. Acute on chronic congestive heart failure, with diastolic dysfunction. Preserved LV function with ejection fraction 60-65%. #2. Atrial fibrillation/flutter with rapid ventricular response currently on a combination of amiodarone drip and the patient is also on metoprolol 25 mg 4 times a day. The patient is on long-term and to coagulation with warfarin and the PT/INR is therapeutic for now. #3. History of chronic bronchial asthma, currently inactive and stable. #4. Moderate pulmonary hypertension, RVSP 59.67 mmHg. #5. Acute shortness of breath and acute hypoxic respiratory failure secondary to above #6. Wide complex rhythm related to a left bundle branch block pattern in the setting of atrial fibrillation/flutter. #7. Hypertension, #8. Hyperlipidemia #9. Previous history of CVA #10. Hypothyroidism #11. Degenerative arthritis #12. History of colon cancer Plan: Continue current medical treatment, continue nebulized bronchodilators, patient has converted back to sinus rhythm, started on oral amiodarone, INR is therapeutic, denies any worsening dyspnea. We will leave a G2 is managed the diuresis. We'll continue to follow I performed a history & physical examination of the patient and discussed their management with my nurse practitioner, Maya Calderón. I reviewed the nurse practitioner's note and agree with the documented findings and plan of care. Lung sounds are positive for bibasilar crackles. The findings and the impression was discussed with the patient. I attest to the documentation by the nurse practitioner. Time with Patient: Less than 30
[2018-06-21] MEDS: CALCIUM CARB-VIT D 500MG-200UN 1 EACH TAB PO SCH (11:32)
[2018-06-21] MEDS: cefTRIAXone IN SWFI 1,000 MG/10 ML SYRINGE IVP SCH (11:33)
--- NOTE | 2018-06-21 13:09 | P.PN ---
Subjective Progress Note Date: 06/21/18 Principal diagnosis: Acute exacerbation diastolic CHF Atrial fibrillation with RVR/ NSR now This is an 82-year-old female with known history of COPD, hypertension , asthma, hyperlipidemia, hypothyroidism, history of colon cancer, chronic persistent atrial fibrillation, who presented to the hospital with fairly sudden onset of shortness of breath. In the ED patient was diagnosed with acute exacerbation of CHF with A. fib/RVR; Patient was given a bolus of IV Cardizem on admission here, started on IV antibiotics as well as IV Lasix. 06/21/2018 She is resting in bed, in no acute distress, yesterday patient went into atrial fibrillation/flutter with accelerated rate, was placed on amiodarone drip , and she is currently in sinus rhythm with a controlled rate. Room air pulse ox is 95%, lung sounds reveal bibasilar rales, there is trace pretibial edema bilaterally. Chest x-ray shows a small left pleural effusion. Patient is improving, less short of breath, she has been transitioned to oral amiodarone, INR is therapeutic today at 2.2. Objective - Vital Signs Vital signs: Vital Signs Temp 97.5 F L 06/21/18 06:08 Pulse 80 06/21/18 11:43 Resp 18 06/21/18 08:00 BP 160/69 06/21/18 06:08 Pulse Ox 95 06/21/18 06:08 Intake & Output 06/20/18 06/21/18 06/21/18 18:59 06:59 18:59 Intake Total 390 240 Output Total 1600 700 Balance -1210 -460 Weight 89.5 kg Intake: Oral 390 240 Output: Urine 1600 700 Other: Voiding Method Bedside Commode Bedside Commode Bedside Commode # Voids 2 1 # Bowel Movements 1 1 - Exam - Exam - Constitutional General appearance: cooperative, no acute distress - EENT Eyes: EOMI, PERRLA ENT: NA/AT, normal oropharynx Ears: bilateral: normal - Neck Neck: no lymphadenopathy Carotids: bilateral: upstroke normal Thyroid: bilateral: normal size - Respiratory Respiratory: bilateral: rales - Cardiovascular Rhythm: irregularly irregular tachycardic Heart sounds: normal: S1, S2 Abnormal Heart Sounds: Diastolic murmur Diastolic murmur (1) Location: apex ankle Peripheral Edema: bilateral: 1+ leg Peripheral Edema: bilateral: Trace - Gastrointestinal General gastrointestinal: no organomegaly, soft, no tenderness - Neurologic Neurologic: CNII-XII intact - Musculoskeletal Musculoskeletal: generalized weakness, strength equal bilaterally - Psychiatric Psychiatric: A&O x's 3, appropriate affect, intact judgment & insight - Labs CBC & Chem 7: 06/18/18 05:38 06/21/18 06:18 Labs: Abnormal Lab Results - Last 24 Hours (Table) 06/21/18 06/21/18 Range/Units 06:18 06:18 PT 19.5 H (9.0-12.0) sec INR 2.2 H (<1.2) BUN 32 H (7-17) mg/dL Glucose 113 H (74-99) mg/dL Microbiology - Last 24 Hours (Table) 06/17/18 10:29 Blood Culture - Preliminary Blood No Growth after 96 hours Assessment and Plan Assessment: 1. Acute exacerbation diastolic CHF - Patient remains on Lasix 40 mg IV daily - We will continue to monitor daily weights, strict JENSEN's, renal function and electrolytes 2. Atrial fibrillation/flutter with RVR - Patient was initially started on IV Cardizem drip which was discontinued once patient converted to normal sinus rhythm - Patient is not started on IV amiodarone drip secondary to atrial flutter with RVR; this was transitioned to oral amiodarone at 200 mg twice a day - Echocardiogram reveals ejection fraction of 60-65% along with mild to moderate mitral stenosis - Patient remains on oral Coumadin for anticoagulation - Cardiology is following; we appreciate their expertise and management of this patient 3. Possible pneumonia; - Patient remains on IV ceftriaxone 1 g every 24 hours - Continue with Symbicort inhaler 2 puffs twice a day - We will continue with DuoNeb inhalation every 4 hours when necessary for shortness of breath 4. Acute hypoxic respiratory failure secondary to 1; clinically resolved 5. Hypertension; stable on Lopressor 25 mg by mouth 4 times a day 6. Hyperlipidemia; patient remains on Lipitor 20 mg daily at bedtime 7. Hypothyroidism; clinically euthyroid; continue with levothyroxine 100 MCG daily 8. History of CVA; patient remains on Coumadin 9. DVT prophylaxis; systemic anticoagulation with Coumadin CODE STATUS; full code Time with Patient: Greater than 30
[2018-06-21] MEDS: WARFARIN 7.5 MG TAB PO SCH (17:19)
[2018-06-21] MEDS: VITAMIN E (DL,TOCOPHERYL ACET) 400 UNIT CAP PO SCH (17:19)
[2018-06-21] MEDS: LATANOPROST 0.005% OPHTH DROPS 2.5 ML BTL BOTH EYES SCH (19:52)
[2018-06-21] MEDS: ATORVASTATIN 20 MG TAB PO SCH (19:52)
[2018-06-21] MEDS: DOCUSATE 100 MG CAP PO SCH (19:52)
[2018-06-21] MEDS: ALPRAZolam 0.25 MG TAB PO SCH (19:52)
[2018-06-21] MEDS: CITALOPRAM HYDROBROMIDE 20 MG TAB PO SCH (19:56)
--- NOTE | 2018-06-22 03:31 | PN ---
PROGRESS NOTE This patient was admitted with symptoms of shortness of breath and was treated for acute bronchitis and mild congestive cardiac failure. Patient had intermittent atrial flutter fibrillation. Patient remains stable. Patient's heart rate now 80 beats per minute. Blood pressure is 151/67 mmHg. First and second heart sounds are normal. Lungs are fairly clear to auscultation and percussion. We will treat the patient with p.o. Lasix. The patient's INR is 2.2. Hemoglobin is 8.4. Her electrolytes are normal. Creatinine is 0.9. Further workup for the patient's anemia is suggested. MMODL / IJN: [id number] /
[2018-06-22] MEDS: PANTOPRAZOLE 40 MG TABLET PO SCH (06:31)
[2018-06-22] MEDS: LEVOTHYROXINE 100 MCG TAB PO SCH (06:31)
[2018-06-22] MEDS ORDERED: PATIENT'S OWN MED (Alendronate Sodium [Fosamax] 70 MG) PO SCH (07:00)
[2018-06-22 07:02] LABS: Basophils % (A) 1 %; Eosinophils # (A) 0.4 k/uL (0-0.7); Eosinophils % (A) 6 %; HCT 29.2 % (34.0-46.0); HGB 9.2 gm/dL (11.4-16.0); Hypochromasia Moderate; Lymphocytes # (A) 1.7 k/uL (1.0-4.8); Lymphocytes % (A) 24 %; MCH 30.1 pg (25.0-35.0); MCHC 31.5 g/dL (31.0-37.0); MCV 95.8 fL (80.0-100.0); Mean Platelet Volume 8.9; Monocytes # (A) 0.4 k/uL (0-1.0); Monocytes % (A) 6 %; Neutrophils # (A) 4.3 k/uL (1.3-7.7); Neutrophils % (A) 62 %; RBC 3.04 m/uL (3.80-5.40); RDW 14.7 % (11.5-15.5)
[2018-06-22 07:06] LABS: Platelet Count 119 k/uL (150-450)
[2018-06-22 07:08] LABS: INR 2.1 (<1.2); Prothrombin Time 19.2 sec (9.0-12.0)
[2018-06-22 07:16] LABS: Potassium 4.7 mmol/L (3.5-5.1)
[2018-06-22] MEDS: IPRATROPIUM-ALBUTEROL 3 ML NEB INHALATION PRN ×2 (08:47→13:20)
[2018-06-22] MEDS: SYMBICORT 160-4.5 MCG INHALER INHALATION SCH ×2 (08:47→21:15)
[2018-06-22] MEDS: AMIODARONE 200 MG TAB PO SCH ×2 (09:06→21:33)
[2018-06-22] MEDS: FUROSEMIDE 40 MG TAB PO SCH (09:06)
[2018-06-22] MEDS: METOPROLOL TARTRATE 25 MG TAB PO SCH ×4 (09:06→21:33)
[2018-06-22] MEDS: POTASSIUM CHLORIDE ER 10 MEQ TAB.ER.PRT PO SCH (09:06)
[2018-06-22] MEDS: oxyCODONE-APAP 5-325MG 1 EACH TAB PO PRN (10:20)
[2018-06-22] MEDS: cefTRIAXone IN SWFI 1,000 MG/10 ML SYRINGE IVP SCH (10:21)
--- NOTE | 2018-06-22 11:53 | P.PN ---
Subjective Progress Note Date: 06/22/18 This is an 82-year-old female with known history of COPD, hypertension , asthma, hyperlipidemia, hypothyroidism, history of colon cancer, chronic persistent atrial fibrillation, who presented to the hospital with fairly sudden onset of shortness of breath. According to the patient she was short of breath, could hardly breathe, but she states that it was only for one day. She does state that she is coughing up green-colored sputum, denies fever at home. On arrival here the patient was noted to have a temperature of 100.3. Blood pressure on arrival 150/80 with a heart rate in the 140s, 96% on 6 L of oxygen. EKG on arrival here showed atrial fibrillation with a rapid ventricular response. Patient did have an echocardiogram with Doppler study performed in January of this year which revealed an ejection fraction of 50-55%, moderate mitral regurg, mild to moderate tricuspid regurg and moderate pulmonary hypertension. Laboratory data was reviewed, white blood cell count is normal, hemoglobin on arrival 9.3, 8.4 this morning. Platelet count 71, 66 this morning. INR is 2.1. Sodium 139, potassium 4.4, BUN 33, creatinine 0.8. Troponins 0.0-3, 0.031, 0.022. BNP level 1400. Chest x-ray on admission revealed mild bibasilar infiltrates, correlate for pneumonia and atelectasis. Chest x-ray performed this morning revealed a mild residual pulmonary vascular congestion, aeration improved from prior exam. Patient was given a bolus of IV Cardizem on admission here, started on IV antibiotics as well as IV Lasix. At the time of my examination this morning, patient still complains of feeling short of breath, she does state however that her symptoms are much improved from admission here. This morning patient is in a sinus tachycardia. Patient is seen today 06/18/2018 in follow-up on the selective care unit. She is currently awake and alert in no acute distress. Sitting up in bed she is breathing easier today as compared to yesterday but not quite back to her baseline. Her chest x-ray shows improvement in the pulmonary vascular congestion. He is maintaining good O2 saturations in the upper 90s on 4 L/m per nasal cannula. She's been afebrile. Her heart rate is better controlled. She is on a Cardizem drip at 10 mg per hour. Anticoagulated with warfarin. She is currently in a negative balance. Weight is equivocal. Count 5.5. Hemoglobin 8.4. INR 2.1. Creatinine 0.87. TSH 1.86. Remains on Lasix 40 mg IV push every 8 hours. The patient is seen again today 06/29/2018 in follow-up on the selective care unit. She is currently sitting up in a chair at the bedside. She is awake and alert in no acute distress. She is breathing quite a bit easier today as compared to previous days. No worsening shortness of breath, cough or congestion. Maintaining good O2 saturations in the 90s on 4 L/m per nasal cannula. She's been afebrile. She has been having ongoing issues with atrial flutter and rapid ventricular rates being followed by cardiology. The plan is to add amiodarone. She is continued on IV Lasix every 8 hours. She remains in a negative balance. Her weight is down 2 more kilograms. Creatinine 0.80. INR 2.3. On 06/20/2018 I'm seeing this patient for a follow-up. She is doing essentially the same as yesterday. The active issue remains her A. fib/flutter with rapid ventricular response. The patient was on Cardizem and she converted to normal sinus rhythm. Subsequently she started having episodes of A. fib/ flutter and she was initiated on amiodarone drip. She continues to have a flutter at the rate of 120/1:30. She is also on beta blockers and the dose will be adjusted by cardiology. Echocardiogram was done and the left ejection fraction is on 6065%. She has moderate degree of pulmonary hypertension. She is on oxygen 3 L/m and her pulse ox 95%. She is being diuresis with IV Lasix and dose has been gradually weaned off as the patient's fluid balance is being optimized. The patient is currently taking Lasix 40 mg once a day. She is also on anti-coagulation with warfarin and INR is therapeutic for now. On 06/21/2018 patient seen in follow-up on selective care unit. She is resting in bed, in no acute distress, yesterday patient went into atrial fibrillation/ flutter with accelerated rate, was placed on amiodarone drip, and she is currently in sinus rhythm with a controlled rate. Room air pulse ox is 95%, lung sounds reveal bibasilar rales, there is trace pretibial edema bilaterally. Chest x-ray shows a small left pleural effusion. Patient is improving, less short of breath, she has been transitioned to oral amiodarone, INR is therapeutic today at 2.2. On 06/22/2018, patient is being seen for a follow-up. She is calm and comfortable. No respiratory distress. No chest pain. A. fib/flutter is under better control and the patient is currently off drips. The patient is on amiodarone 200 mg by mouth twice a day. The patient is also on metoprolol 25 mg 4 times a day with adequate rate control. The patient is on long-term articulation with warfarin. The patient has been well diuresis with Lasix 40 g by mouth daily. The patient has an INR of 2.1. Hemoglobin is at 9.2. Function is stable at 0.8 creatinine. Pulse ox is 95% and it's about 2 by nasal cannula. She denies having any specific complaints for now. Objective - Vital Signs Vital signs: Vital Signs Temp 97.7 F 06/22/18 08:00 Pulse 68 06/22/18 09:01 Resp 18 06/22/18 08:00 BP 140/57 06/22/18 08:00 Pulse Ox 95 06/22/18 08:00 Intake & Output 06/21/18 06/22/18 06/22/18 18:59 06:59 18:59 Intake Total 702 Output Total 1200 200 Balance -498 -200 Weight 89.5 kg Intake: Oral 702 Output: Urine 1200 200 Other: Voiding Method Bedside Commode # Voids 1 # Bowel Movements 1 1 - Exam - Constitutional General appearance: cooperative, no acute distress - EENT Eyes: EOMI, PERRLA ENT: NA/AT, normal oropharynx Ears: bilateral: normal - Neck Neck: no lymphadenopathy Carotids: bilateral: upstroke normal Thyroid: bilateral: normal size - Respiratory Respiratory: bilateral: rales - Cardiovascular Rhythm: irregularly irregular tachycardic Heart sounds: normal: S1, S2, rate is controlled Abnormal Heart Sounds: Diastolic murmur Diastolic murmur (1) Location: apex ankle Peripheral Edema: bilateral: Trace edema in lower extremities bilaterally leg Peripheral Edema: bilateral: Trace - Gastrointestinal General gastrointestinal: no organomegaly, soft, no tenderness - Neurologic Neurologic: CNII-XII intact - Musculoskeletal Musculoskeletal: generalized weakness, strength equal bilaterally - Psychiatric Psychiatric: A&O x's 3, appropriate affect, intact judgment & insight - Labs CBC & Chem 7: 06/22/18 06:35 06/22/18 06:35 Labs: Abnormal Lab Results - Last 24 Hours (Table) 06/22/18 06/22/18 06/22/18 Range/Units 06:35 06:35 06:35 RBC 3.04 L (3.80-5.40) m/uL Hgb 9.2 L (11.4-16.0) gm/dL Hct 29.2 L (34.0-46.0) % Plt Count 119 L D (150-450) k/uL PT 19.2 H (9.0-12.0) sec INR 2.1 H (<1.2) BUN 32 H (7-17) mg/dL Glucose 107 H (74-99) mg/dL Microbiology - Last 24 Hours (Table) 06/17/18 10:29 Blood Culture - Preliminary Blood No Growth after 96 hours Assessment and Plan Assessment: #1. Acute on chronic congestive heart failure, with diastolic dysfunction. Preserved LV function with ejection fraction 60-65%. #2. Atrial fibrillation/flutter with rapid ventricular response currently on a combination of amiodarone drip and the patient is also on metoprolol 25 mg 4 times a day. The patient is on long-term and to coagulation with warfarin and the PT/INR is therapeutic for now. #3. History of chronic bronchial asthma, currently inactive and stable. #4. Moderate pulmonary hypertension, RVSP 59.67 mmHg. #5. Acute shortness of breath and acute hypoxic respiratory failure secondary to above #6. Wide complex rhythm related to a left bundle branch block pattern in the setting of atrial fibrillation/flutter. #7. Hypertension, #8. Hyperlipidemia #9. Previous history of CVA #10. Hypothyroidism #11. Degenerative arthritis #12. History of colon cancer Plan The patient's CHF has been optimized. A. fib flutter is under good control with a combination of metoprolol and amiodarone and the patient is on long-term and coagulation with warfarin with a therapeutic PT/INR. The patient has been well diuresis. No significant shortness of breath. Hypoxic respiratory failure is improving. Ablate in the hallway. Possible discharge today or within next 24 hours. The Rocephin can be also discontinued.
[2018-06-22] MEDS: CALCIUM CARB-VIT D 500MG-200UN 1 EACH TAB PO SCH (12:05)
--- NOTE | 2018-06-22 12:56 | P.PN ---
Subjective Progress Note Date: 06/22/18 Principal diagnosis: Acute exacerbation diastolic CHF Atrial fibrillation with RVR/ NSR now This is an 82-year-old female with known history of COPD, hypertension , asthma, hyperlipidemia, hypothyroidism, history of colon cancer, chronic persistent atrial fibrillation, who presented to the hospital with fairly sudden onset of shortness of breath. In the ED patient was diagnosed with acute exacerbation of CHF with A. fib/RVR; Patient was given a bolus of IV Cardizem on admission here, started on IV antibiotics as well as IV Lasix. 06/21/2018 She is resting in bed, in no acute distress, yesterday patient went into atrial fibrillation/flutter with accelerated rate, was placed on amiodarone drip , and she is currently in sinus rhythm with a controlled rate. Room air pulse ox is 95%, lung sounds reveal bibasilar rales, there is trace pretibial edema bilaterally. Chest x-ray shows a small left pleural effusion. Patient is improving, less short of breath, she has been transitioned to oral amiodarone, INR is therapeutic today at 2.2. 06/22/2018 Patient is seen and evaluated in the room sitting up in a bedside chair; patient denies any complaints of chest pain or shortness of breath; She is calm and comfortable. No respiratory distress. No chest pain. A. fib/flutter is under better control; The patient is on amiodarone 200 mg by mouth twice a day and on metoprolol 25 mg 4 times a day with adequate rate control. The patient is on long-term articulation with warfarin. The patient remains on Lasix 40 g by mouth daily. The patient has an INR of 2.1. Hemoglobin is at 9.2. Function is stable at 0.8 creatinine. Pulse ox is 95% and it's about 2 by nasal cannula. She denies having any specific complaints for now. Patient has been seen and evaluated by pulmonary service; recommending possible switch to oral antibiotics in next 24 hours and possible discharge if remains stable from cardiac standpoint Objective - Vital Signs Vital signs: Vital Signs Temp 97.7 F 06/22/18 08:00 Pulse 68 06/22/18 09:01 Resp 18 06/22/18 08:00 BP 140/57 06/22/18 08:00 Pulse Ox 95 06/22/18 08:00 Intake & Output 06/21/18 06/22/18 06/22/18 18:59 06:59 18:59 Intake Total 702 Output Total 1200 200 Balance -498 -200 Weight 89.5 kg Intake: Oral 702 Output: Urine 1200 200 Other: Voiding Method Bedside Commode # Voids 1 # Bowel Movements 1 1 - Labs CBC & Chem 7: 06/22/18 06:35 06/22/18 06:35 Labs: Abnormal Lab Results - Last 24 Hours (Table) 06/22/18 06/22/18 06/22/18 Range/Units 06:35 06:35 06:35 RBC 3.04 L (3.80-5.40) m/uL Hgb 9.2 L (11.4-16.0) gm/dL Hct 29.2 L (34.0-46.0) % Plt Count 119 L D (150-450) k/uL PT 19.2 H (9.0-12.0) sec INR 2.1 H (<1.2) BUN 32 H (7-17) mg/dL Glucose 107 H (74-99) mg/dL Microbiology - Last 24 Hours (Table) 06/17/18 10:29 Blood Culture - Preliminary Blood No Growth after 96 hours Assessment and Plan Assessment: 1. Acute exacerbation diastolic CHF - Patient remains on Lasix 40 mg by mouth daily - We will continue to monitor daily weights, strict JENSEN's, renal function and electrolytes 2. Atrial fibrillation/flutter with RVR - Patient was initially started on IV Cardizem drip which was discontinued once patient converted to normal sinus rhythm - Patient is not started on IV amiodarone drip secondary to atrial flutter with RVR; this was transitioned to oral amiodarone at 200 mg twice a day - Echocardiogram reveals ejection fraction of 60-65% along with mild to moderate mitral stenosis - Patient remains on oral Coumadin for anticoagulation - Cardiology is following; we appreciate their expertise and management of this patient 3. Possible pneumonia; - Patient remains on IV ceftriaxone 1 g every 24 hours; pulmonary service recommending switching to oral antibiotics in next 24 hours and possible discharge home if remains stable from cardiac standpoint - Continue with Symbicort inhaler 2 puffs twice a day - We will continue with DuoNeb inhalation every 4 hours when necessary for shortness of breath 4. Acute hypoxic respiratory failure secondary to 1; clinically resolved 5. Hypertension; stable on Lopressor 25 mg by mouth 4 times a day 6. Hyperlipidemia; patient remains on Lipitor 20 mg daily at bedtime 7. Hypothyroidism; clinically euthyroid; continue with levothyroxine 100 MCG daily 8. History of CVA; patient remains on Coumadin 9. DVT prophylaxis; systemic anticoagulation with Coumadin CODE STATUS; full code Disposition; possible discharge in next 24 hours if remains stable and is cleared for discharge from cardiology service Time with Patient: Greater than 30
[2018-06-22] MEDS: VITAMIN E (DL,TOCOPHERYL ACET) 400 UNIT CAP PO SCH (17:38)
[2018-06-22] MEDS ORDERED: WARFARIN 7.5 MG TAB PO SCH (18:00)
[2018-06-22] MEDS: ATORVASTATIN 20 MG TAB PO SCH (21:33)
[2018-06-22] MEDS: ALPRAZolam 0.25 MG TAB PO SCH (21:33)
[2018-06-22] MEDS: DOCUSATE 100 MG CAP PO SCH (21:33)
[2018-06-22] MEDS: CITALOPRAM HYDROBROMIDE 20 MG TAB PO SCH (21:33)
[2018-06-22] MEDS: LATANOPROST 0.005% OPHTH DROPS 2.5 ML BTL BOTH EYES SCH (21:33)
--- NOTE | 2018-06-23 04:02 | PN ---
PROGRESS NOTE This patient was admitted with congestive cardiac failure and paroxysmal atrial fibrillation. The patient is feeling better. She is breathing comfortable. Denies any orthopnea or PND. The patient's blood pressure is 125/56. Heart rate is 80 per minute. The patient has remained in normal sinus rhythm. First and second heart sounds are normal. Lungs are clinically clear to auscultation and percussion. Patient's INR is at 2.1. Creatinine is 2.8. We will continue the current medications. The patient can be discharged home on medical treatment. MMODL / IJN: [id number] /
[2018-06-23 06:15] LABS: Basophils % (A) 1 %; Eosinophils # (A) 0.3 k/uL (0-0.7); Eosinophils % (A) 5 %; HCT 27.3 % (34.0-46.0); HGB 8.6 gm/dL (11.4-16.0); Hypochromasia Moderate; Lymphocytes # (A) 1.2 k/uL (1.0-4.8); Lymphocytes % (A) 22 %; MCH 30.1 pg (25.0-35.0); MCHC 31.5 g/dL (31.0-37.0); MCV 95.4 fL (80.0-100.0); Mean Platelet Volume 8.6; Monocytes # (A) 0.4 k/uL (0-1.0); Monocytes % (A) 7 %; Neutrophils # (A) 3.5 k/uL (1.3-7.7); Neutrophils % (A) 64 %; Platelet Count 101 k/uL (150-450); RBC 2.86 m/uL (3.80-5.40); RDW 14.7 % (11.5-15.5); WBC 5.4 k/uL (3.8-10.6)
[2018-06-23] MEDS: PANTOPRAZOLE 40 MG TABLET PO SCH (06:17)
[2018-06-23] MEDS: LEVOTHYROXINE 100 MCG TAB PO SCH (06:17)
[2018-06-23 06:25] LABS: INR 2.2 (<1.2); Prothrombin Time 19.9 sec (9.0-12.0)
[2018-06-23 06:27] LABS: Calcium 8.9 mg/dL (8.4-10.2); Potassium 4.4 mmol/L (3.5-5.1)
[2018-06-23] MEDS: METOPROLOL TARTRATE 25 MG TAB PO SCH ×3 (08:46→16:56)
[2018-06-23] MEDS: AMIODARONE 200 MG TAB PO SCH (08:46)
[2018-06-23] MEDS: POTASSIUM CHLORIDE ER 10 MEQ TAB.ER.PRT PO SCH (08:47)
[2018-06-23] MEDS: FUROSEMIDE 40 MG TAB PO SCH (08:47)
[2018-06-23] MEDS: SYMBICORT 160-4.5 MCG INHALER INHALATION SCH (11:18)
[2018-06-23 11:42] VITALS: RESP 16
--- NOTE | 2018-06-23 11:59 | P.PN ---
Subjective Progress Note Date: 06/23/18 Principal diagnosis: Acute on chronic congestive heart failure with diastolic dysfunction. A. fib RVR, currently in sinus rhythm This is an 82-year-old female with known history of COPD, hypertension , asthma, hyperlipidemia, hypothyroidism, history of colon cancer, chronic persistent atrial fibrillation, who presented to the hospital with fairly sudden onset of shortness of breath. According to the patient she was short of breath, could hardly breathe, but she states that it was only for one day. She does state that she is coughing up green-colored sputum, denies fever at home. On arrival here the patient was noted to have a temperature of 100.3. Blood pressure on arrival 150/80 with a heart rate in the 140s, 96% on 6 L of oxygen. EKG on arrival here showed atrial fibrillation with a rapid ventricular response. Patient did have an echocardiogram with Doppler study performed in January of this year which revealed an ejection fraction of 50-55%, moderate mitral regurg, mild to moderate tricuspid regurg and moderate pulmonary hypertension. Laboratory data was reviewed, white blood cell count is normal, hemoglobin on arrival 9.3, 8.4 this morning. Platelet count 71, 66 this morning. INR is 2.1. Sodium 139, potassium 4.4, BUN 33, creatinine 0.8. Troponins 0.0-3, 0.031, 0.022. BNP level 1400. Chest x-ray on admission revealed mild bibasilar infiltrates, correlate for pneumonia and atelectasis. Chest x-ray performed this morning revealed a mild residual pulmonary vascular congestion, aeration improved from prior exam. Patient was given a bolus of IV Cardizem on admission here, started on IV antibiotics as well as IV Lasix. At the time of my examination this morning, patient still complains of feeling short of breath, she does state however that her symptoms are much improved from admission here. This morning patient is in a sinus tachycardia. Patient is seen today 06/18/2018 in follow-up on the selective care unit. She is currently awake and alert in no acute distress. Sitting up in bed she is breathing easier today as compared to yesterday but not quite back to her baseline. Her chest x-ray shows improvement in the pulmonary vascular congestion. He is maintaining good O2 saturations in the upper 90s on 4 L/m per nasal cannula. She's been afebrile. Her heart rate is better controlled. She is on a Cardizem drip at 10 mg per hour. Anticoagulated with warfarin. She is currently in a negative balance. Weight is equivocal. Count 5.5. Hemoglobin 8.4. INR 2.1. Creatinine 0.87. TSH 1.86. Remains on Lasix 40 mg IV push every 8 hours. The patient is seen again today 06/29/2018 in follow-up on the selective care unit. She is currently sitting up in a chair at the bedside. She is awake and alert in no acute distress. She is breathing quite a bit easier today as compared to previous days. No worsening shortness of breath, cough or congestion. Maintaining good O2 saturations in the 90s on 4 L/m per nasal cannula. She's been afebrile. She has been having ongoing issues with atrial flutter and rapid ventricular rates being followed by cardiology. The plan is to add amiodarone. She is continued on IV Lasix every 8 hours. She remains in a negative balance. Her weight is down 2 more kilograms. Creatinine 0.80. INR 2.3. On 06/20/2018 I'm seeing this patient for a follow-up. She is doing essentially the same as yesterday. The active issue remains her A. fib/flutter with rapid ventricular response. The patient was on Cardizem and she converted to normal sinus rhythm. Subsequently she started having episodes of A. fib/ flutter and she was initiated on amiodarone drip. She continues to have a flutter at the rate of 120/1:30. She is also on beta blockers and the dose will be adjusted by cardiology. Echocardiogram was done and the left ejection fraction is on 6065%. She has moderate degree of pulmonary hypertension. She is on oxygen 3 L/m and her pulse ox 95%. She is being diuresis with IV Lasix and dose has been gradually weaned off as the patient's fluid balance is being optimized. The patient is currently taking Lasix 40 mg once a day. She is also on anti-coagulation with warfarin and INR is therapeutic for now. On 06/21/2018 patient seen in follow-up on selective care unit. She is resting in bed, in no acute distress, yesterday patient went into atrial fibrillation/ flutter with accelerated rate, was placed on amiodarone drip, and she is currently in sinus rhythm with a controlled rate. Room air pulse ox is 95%, lung sounds reveal bibasilar rales, there is trace pretibial edema bilaterally. Chest x-ray shows a small left pleural effusion. Patient is improving, less short of breath, she has been transitioned to oral amiodarone, INR is therapeutic today at 2.2. On 06/23/2018 patient seen in follow-up on selective care unit. Pulse ox on 2 L per nasal cannula is 95%, denies any dyspnea, she is afebrile, vital signs are stable. He has been up to the chair, tolerating activity well. Lung sounds reveal bibasilar crackles, and chest x-ray from 06/21/2018 shows persistent changes compatible with mild CHF and small left pleural effusion. Likely patient continues to improve, she has been diuresed, and her IV Lasix have been transitioned to oral, she continues on nebulized bronchodilators, she is on Coumadin for atrial fibrillation, and her INR is therapeutic at 2.2. Today's labs have been reviewed, no leukocytosis, WBC is 5.4, hemoglobin is 8.6 , BUN is 33, creatinine is 1.0, and electrolytes are within normal limits. She has been cleared for discharge by cardiology, patient will be cleared from pulmonary standpoint as well. Blood and sputum cultures are pending. No fever , no chills, and patient has been treated with empiric antibiotics in the form of Rocephin, which has been discontinued. Objective - Vital Signs Vital signs: Vital Signs Temp 97.6 F 06/23/18 11:41 Pulse 60 06/23/18 11:41 Resp 16 06/23/18 11:41 BP 127/56 06/23/18 11:41 Pulse Ox 95 06/23/18 11:41 Intake & Output 06/22/18 06/23/18 06/23/18 18:59 06:59 18:59 Intake Total 240 Output Total 300 200 Balance -300 -200 240 Weight 89.3 kg Intake: Oral 240 Output: Urine 300 200 Other: Voiding Method Bedside Commode Bedside Commode # Voids 1 1 # Bowel Movements 1 - Exam - Constitutional General appearance: cooperative, no acute distress - EENT Eyes: EOMI, PERRLA ENT: NA/AT, normal oropharynx Ears: bilateral: normal - Neck Neck: no lymphadenopathy Carotids: bilateral: upstroke normal Thyroid: bilateral: normal size - Respiratory Respiratory: bilateral: rales - Cardiovascular Rhythm: irregularly irregular the controlled rate Heart sounds: normal: S1, S2 Abnormal Heart Sounds: Diastolic murmur Diastolic murmur (1) Location: apex ankle Peripheral Edema: bilateral: 1+ leg Peripheral Edema: bilateral: Trace - Gastrointestinal General gastrointestinal: no organomegaly, soft, no tenderness - Neurologic Neurologic: CNII-XII intact - Musculoskeletal Musculoskeletal: generalized weakness, strength equal bilaterally - Psychiatric Psychiatric: A&O x's 3, appropriate affect, intact judgment & insight - Labs CBC & Chem 7: 06/23/18 05:46 06/23/18 05:46 Labs: Abnormal Lab Results - Last 24 Hours (Table) 06/23/18 06/23/18 06/23/18 Range/Units 05:46 05:46 05:46 RBC 2.86 L (3.80-5.40) m/uL Hgb 8.6 L (11.4-16.0) gm/dL Hct 27.3 L (34.0-46.0) % Plt Count 101 L (150-450) k/uL PT 19.9 H (9.0-12.0) sec INR 2.2 H (<1.2) BUN 33 H (7-17) mg/dL Glucose 112 H (74-99) mg/dL Microbiology - Last 24 Hours (Table) 06/22/18 13:00 Gram Stain - Preliminary Sputum 06/17/18 10:29 Blood Culture - Preliminary Blood No Growth after 120 hours Assessment and Plan Plan: Assessment #1. Acute on chronic congestive heart failure, with diastolic dysfunction. Preserved LV function with ejection fraction 60-65%. #2. Atrial fibrillation/flutter with rapid ventricular response currently on a combination of amiodarone drip and the patient is also on metoprolol 25 mg 4 times a day. The patient is on long-term and to coagulation with warfarin and the PT/INR is therapeutic for now. #3. History of chronic bronchial asthma, currently inactive and stable. #4. Moderate pulmonary hypertension, RVSP 59.67 mmHg. #5. Acute shortness of breath and acute hypoxic respiratory failure secondary to above #6. Wide complex rhythm related to a left bundle branch block pattern in the setting of atrial fibrillation/flutter. #7. Hypertension, #8. Hyperlipidemia #9. Previous history of CVA #10. Hypothyroidism #11. Degenerative arthritis #12. History of colon cancer Plan: Patient has been adequately diuresed, her breathing has improved, she is on baseline home dose O2, no dyspnea, no chest pain, no fever, no chills tolerating activity. From pulmonary standpoint patient is stable, and can be discharged home today. I performed a history & physical examination of the patient and discussed their management with my nurse practitioner, Maya Calderón. I reviewed the nurse practitioner's note and agree with the documented findings and plan of care. Lung sounds are positive for bibasilar crackles. The findings and the impression was discussed with the patient. I attest to the documentation by the nurse practitioner. Time with Patient: Less than 30
[2018-06-23] MEDS: CALCIUM CARB-VIT D 500MG-200UN 1 EACH TAB PO SCH (12:17)
[2018-06-23] MEDS: FERROUS SULFATE 325 MG TAB PO SCH (12:17)
--- NOTE | 2018-06-23 13:55 | P.PN ---
Subjective Progress Note Date: 06/23/18 This is an 82-year-old female with known history of COPD, hypertension , asthma, hyperlipidemia, hypothyroidism, history of colon cancer, chronic persistent atrial fibrillation, who presented to the hospital with fairly sudden onset of shortness of breath. According to the patient she was short of breath, could hardly breathe, but she states that it was only for one day. She does state that she is coughing up green-colored sputum, denies fever at home. On arrival here the patient was noted to have a temperature of 100.3. Blood pressure on arrival 150/80 with a heart rate in the 140s, 96% on 6 L of oxygen. EKG on arrival here showed atrial fibrillation with a rapid ventricular response. Patient did have an echocardiogram with Doppler study performed in January of this year which revealed an ejection fraction of 50-55%, moderate mitral regurg, mild to moderate tricuspid regurg and moderate pulmonary hypertension. Laboratory data was reviewed, white blood cell count is normal, hemoglobin on arrival 9.3, 8.4 this morning. Platelet count 71, 66 this morning. INR is 2.1. Sodium 139, potassium 4.4, BUN 33, creatinine 0.8. Troponins 0.0-3, 0.031, 0.022. BNP level 1400. Chest x-ray on admission revealed mild bibasilar infiltrates, correlate for pneumonia and atelectasis. Chest x-ray performed this morning revealed a mild residual pulmonary vascular congestion, aeration improved from prior exam. Patient was given a bolus of IV Cardizem on admission here, started on IV antibiotics as well as IV Lasix. At the time of my examination this morning, patient still complains of feeling short of breath, she does state however that her symptoms are much improved from admission here. This morning patient is in a sinus tachycardia. 06/20/2018 History patient was in rapid atrial flutter, was on Cardizem drip, converted to normal sinus rhythm. She then was initiated on IV amiodarone drip. This morning she continues to be in atrial flutter, her heart rate is in the 120 to 1 :30 range. We will increase her dose of beta amara that she is on. Once the IV amiodarone was discontinued and we'll start the patient on oral amiodarone. Echocardiogram with Doppler study was performed which revealed an ejection fraction of 60-65%. Mild to moderate mitral stenosis. Moderate pulmonary hypertension. Blood pressure this morning 132/70, heart rate in the 120 range this morning. 95% on 3 L of oxygen. INR today is 2.1. Sodium 141, potassium 3.7, BUN 34, creatinine 0.9. TSH is normal. Overall the patient feels well, she continues to have cough today, denies any shortness of breath. No palpitations. 06/23/2018 Patient seen and examined this morning, in normal sinus rhythm. Hemodynamically stable. Objective - Vital Signs Vital signs: Vital Signs Temp 97.6 F 06/23/18 11:41 Pulse 60 06/23/18 11:41 Resp 16 06/23/18 11:41 BP 127/56 06/23/18 11:41 Pulse Ox 95 06/23/18 11:41 Intake & Output 06/22/18 06/23/18 06/23/18 18:59 06:59 18:59 Intake Total 240 Output Total 300 200 Balance -300 -200 240 Weight 89.3 kg Intake: Oral 240 Output: Urine 300 200 Other: Voiding Method Bedside Commode Bedside Commode # Voids 1 1 # Bowel Movements 1 - Exam PHYSICAL EXAMINATION: GENERAL: 82-year-old female in no acute distress at the time of my examination HEENT: Head is atraumatic, normocephalic. Pupils equal, round. Sclera anicteric. Conjunctiva are clear. Mucous membranes of the mouth are moist. Neck is supple. There is elevated jugular venous pressure. No carotid bruit is heard. HEART EXAMINATION: Heart S1 and S2 normal systolic murmur is heard. CHEST EXAMINATION: Lungs reveal scattered coarse rhonchi and wheezing throughout ABDOMEN: Soft, obese, nontender. Bowel sounds are heard. No organomegaly noted. EXTREMITIES: 2+ peripheral pulses with no evidence of peripheral edema and no calf tenderness noted. NEUROLOGIC patient is awake, alert and oriented X3. - Labs CBC & Chem 7: 06/23/18 05:46 06/23/18 05:46 Labs: Abnormal Lab Results - Last 24 Hours (Table) 06/23/18 06/23/18 06/23/18 Range/Units 05:46 05:46 05:46 RBC 2.86 L (3.80-5.40) m/uL Hgb 8.6 L (11.4-16.0) gm/dL Hct 27.3 L (34.0-46.0) % Plt Count 101 L (150-450) k/uL PT 19.9 H (9.0-12.0) sec INR 2.2 H (<1.2) BUN 33 H (7-17) mg/dL Glucose 112 H (74-99) mg/dL Microbiology - Last 24 Hours (Table) 06/17/18 10:29 Blood Culture - Final Blood No Growth after 144 hours 06/22/18 13:00 Gram Stain - Preliminary Sputum Assessment and Plan Plan: Assessment and plan #1 symptoms of fairly sudden onset of shortness of breath, congestive heart failure, LV function in January of this year documented to be 50-55%, diastolic, acute on chronic. #2 atrial flutter with rapid ventricular response, typical, history of a chronic persistent atrial fibrillation, on Coumadin for anticoagulation. #3 COPD, possible pneumonia on chest x-ray #4 hypertension #5 hyperlipidemia #6 prior history of smoking #7 anemia, upon review of records back to 2014, it is noted that the patient runs a hemoglobin in the range of 8.4. Patient has history of colon cancer Plan Cardiology's perspective, we'll continue this patient on her current medications. We will follow along with you now on an as-needed basis only, please don't hesitate to call with any questions. DNP note has been reviewed, I agree with a documented findings and plan of care. Patient was seen and examined.
[2018-06-23 15:53] VITALS: BP 105/48; PULSE 63; TEMP 98.1
[2018-06-23] MEDS: VITAMIN E (DL,TOCOPHERYL ACET) 400 UNIT CAP PO SCH (16:56)
[2018-06-23] MEDS: WARFARIN 7.5 MG TAB PO SCH (16:57)
--- NOTE | 2018-06-24 00:54 | P.DS ---
Providers Date of admission: 06/17/18 12:00 Expected date of discharge: 06/23/18 Attending physician: Jona Alfonso Consults: 06/17/18 12:11 Consult Physician Stat Consulting Provider: Scot Garcia Consult Reason/Comments: Pneumonia,CHF Do you want consulting provider notified?: Yes Consult Physician Stat Consulting Provider: Leandro Pennington Consult Reason/Comments: CHF Do you want consulting provider notified?: Yes [facility] Course: Discharge diagnosis 1. Acute exacerbation chronic diastolic CHF. Lasix transitioned to oral. 2. Atrial fibrillation/flutter with RVR - Patient was initially started on IV Cardizem drip which was discontinued once patient converted to normal sinus rhythm - Patient is not started on IV amiodarone drip secondary to atrial flutter with RVR; this was transitioned to oral amiodarone at 200 mg twice a day - Echocardiogram reveals ejection fraction of 60-65% along with mild to moderate mitral stenosis - Patient remains on oral Coumadin for anticoagulation - Cardiology is following; we appreciate their expertise and management of this patient 3. Shortness of breath likely due to CHF and Possible pneumonia which is unlikely. Patient was on ceftriaxone. No recent antibiotics.; - Continue with Symbicort inhaler 2 puffs twice a day - continue with DuoNeb inhalation every 4 hours when necessary for shortness of breath 4. Acute hypoxic respiratory failure secondary to 1; clinically resolved 5. Hypertension; stable on Lopressor 25 mg by mouth 4 times a day 6. Hyperlipidemia; patient remains on Lipitor 20 mg daily at bedtime 7. Hypothyroidism; clinically euthyroid; continue with levothyroxine 100 MCG daily 8. History of CVA; patient remains on Coumadin 9. DVT prophylaxis; systemic anticoagulation with Coumadin CODE STATUS; full code Hospital course This is an 82-year-old female with known history of COPD, hypertension , asthma, hyperlipidemia, hypothyroidism, history of colon cancer, chronic persistent atrial fibrillation, who presented to the hospital with fairly sudden onset of shortness of breath. In the ED patient was diagnosed with acute exacerbation of CHF with A. fib/RVR; Patient was given a bolus of IV Cardizem on admission here, started on IV antibiotics as well as IV Lasix. 06/21/2018 She is resting in bed, in no acute distress, yesterday patient went into atrial fibrillation/flutter with accelerated rate, was placed on amiodarone drip , and she is currently in sinus rhythm with a controlled rate. Room air pulse ox is 95%, lung sounds reveal bibasilar rales, there is trace pretibial edema bilaterally. Chest x-ray shows a small left pleural effusion. Patient is improving, less short of breath, she has been transitioned to oral amiodarone, INR is therapeutic today at 2.2. 06/22/2018 Patient is seen and evaluated in the room sitting up in a bedside chair; patient denies any complaints of chest pain or shortness of breath; She is calm and comfortable. No respiratory distress. No chest pain. A. fib/flutter is under better control; The patient is on amiodarone 200 mg by mouth twice a day and on metoprolol 25 mg 4 times a day with adequate rate control. The patient is on long-term articulation with warfarin. The patient remains on Lasix 40 g by mouth daily. The patient has an INR of 2.1. Hemoglobin is at 9.2. Function is stable at 0.8 creatinine. Pulse ox is 95% and it's about 2 by nasal cannula. She denies having any specific complaints for now. 06/23/2018 Patient's breathing status is much improved now. Heart rate is better controlled with metoprolol 25 mg 4 times daily and continued on amiodarone 200 mg twice a day as per cardiology recommendations. Patient is being continued on anticoagulation with warfarin. Patient is cleared from cardiology and pulmonary standpoint. Otherwise patient is stable to be discharged home. Discharge physical examination. PHYSICAL EXAMINATION: Patient is lying in the bed comfortably, no acute distress, awake alert and oriented.. HEENT: Normocephalic. Neck is supple. Pupils reactive. Nostrils clear. Oral cavity is moist. Ears reveal no drainage. Neck reveals no JVD, carotid bruits, or thyromegaly. CHEST EXAMINATION: Trachea is central. Symmetrical expansion. No wheezing. Minimal basilar crackles.. CARDIAC: Normal S1, S2 with no gallops. Diastolic murmur ABDOMEN: Soft. Bowel sounds normal. No organomegaly. No abdominal bruits. Extremities: Trace edema. No clubbing or cyanosis Neurologically awake, alert, oriented x3 with well-coordinated movements. No focal deficits noted Skin: No rash or skin lesions. Psychiatric: Coperative. Nonsuicidal Musculoskeletal: No joint swelling or deformity. Normal range of motion. Vital Signs - 24 hr 06/23/18 06/23/18 06/23/18 05:32 08:40 11:41 Temperature 97.4 F L 98.5 F 97.6 F Pulse Rate [ 71 66 60 Pulse Oximetery ] Respiratory 17 20 16 Rate Blood Pressure 149/81 137/60 127/56 [Left Arm] O2 Sat by Pulse 92 L 95 95 Oximetry 06/23/18 06/23/18 15:52 15:59 Temperature 98.1 F Pulse Rate [ 63 Pulse Oximetery ] Respiratory 16 16 Rate Blood Pressure 105/48 [Left Arm] O2 Sat by Pulse 93 L Oximetry Total time taken greater than 35 minutes including 18 minutes for counseling and coordination of care. Patient Condition at Discharge: Stable Plan - Discharge Summary Discharge Rx Participant: No New Discharge Prescriptions: New Amiodarone [Cordarone] 200 mg PO BID #60 tab Metoprolol Tartrate [Lopressor] 25 mg PO QID #120 tab Continue Levothyroxine Sodium [Synthroid] 100 mcg PO DAILY Latanoprost [Xalatan 0.005%] 1 drop BOTH EYES HS Docusate [Colace] 200 mg PO HS Simvastatin [Zocor] 40 mg PO HS Budesonide/Formoterol Fumarate [Symbicort 160-4.5 Mcg Inhaler] 2 puff INHALATION RT-BID Alendronate Sodium [Fosamax] 70 mg PO SCHMITT Potassium Chloride ER [K-Dur 10] 10 meq PO DAILY Famotidine [Pepcid] 20 mg PO DAILY Warfarin [Coumadin] 7.5 mg PO MOTUWETHFRSA Citalopram Hydrobromide [CeleXA] 20 mg PO HS Calcium Carbonate/Vitamin D3 [Calcium 600-Vit D3 800 Tab] 1 tab PO DAILY Multivitamins, Thera [Multivitamin (formulary)] 1 tab PO DAILY@1800 Vitamin E (Dl,Tocopheryl Acet) [Vitamin E] 400 unit PO DAILY@1800 rOPINIRole HCL [Requip] 2 mg PO HS fentaNYL 25MCG/HR PATCH [Duragesic 25MCG/HR] 1 patch TRANSDERM Q72H ALPRAZolam [Xanax] 0.25 mg PO HS Furosemide [Lasix] 40 mg PO DAILY Warfarin [Coumadin] 15 mg PO SCHMITT Ferrous Sulfate [Iron (65 MG Elemental)] 325 mg PO MOTUWETHFR Discontinued amLODIPine [Norvasc] 5 mg PO BID Metoprolol Succinate [Toprol XL] 25 mg PO DAILY Discharge Medication List Alendronate Sodium [Fosamax] 70 mg PO SCHMITT 11/30/16 [History] Budesonide/Formoterol Fumarate [Symbicort 160-4.5 Mcg Inhaler] 2 puff INHALATION RT-BID 11/30/16 [History] Citalopram Hydrobromide [CeleXA] 20 mg PO HS 11/30/16 [History] Docusate [Colace] 200 mg PO HS 11/30/16 [History] Famotidine [Pepcid] 20 mg PO DAILY 11/30/16 [History] Latanoprost [Xalatan 0.005%] 1 drop BOTH EYES HS 11/30/16 [History] Levothyroxine Sodium [Synthroid] 100 mcg PO DAILY 11/30/16 [History] Potassium Chloride ER [K-Dur 10] 10 meq PO DAILY 11/30/16 [History] Simvastatin [Zocor] 40 mg PO HS 11/30/16 [History] Warfarin [Coumadin] 7.5 mg PO MOTUWETHFRSA 11/30/16 [History] Calcium Carbonate/Vitamin D3 [Calcium 600-Vit D3 800 Tab] 1 tab PO DAILY [History] Multivitamins, Thera [Multivitamin (formulary)] 1 tab PO DAILY@1800 05/30/17 [ History] Vitamin E (Dl,Tocopheryl Acet) [Vitamin E] 400 unit PO DAILY@1800 05/30/17 [ History] fentaNYL 25MCG/HR PATCH [Duragesic 25MCG/HR] 1 patch TRANSDERM Q72H 11/02/17 [ History] rOPINIRole HCL [Requip] 2 mg PO HS 11/02/17 [History] ALPRAZolam [Xanax] 0.25 mg PO HS 01/08/18 [History] Furosemide [Lasix] 40 mg PO DAILY 03/27/18 [History] Ferrous Sulfate [Iron (65 MG Elemental)] 325 mg PO MOTUWETHFR 06/17/18 [History] Warfarin [Coumadin] 15 mg PO SCHMITT 06/17/18 [History] Amiodarone [Cordarone] 200 mg PO BID #60 tab 06/23/18 [Rx] Metoprolol Tartrate [Lopressor] 25 mg PO QID #120 tab 06/23/18 [Rx] Follow up Appointment(s)/Referral(s): Scot Garcia MD [STAFF PHYSICIAN] - 07/03/18 3:45 pm (SATURDAY) [facility], [NON-STAFF] - David Singh MD [STAFF PHYSICIAN] - 1 Week (CARDIOLOGY OFFICE STATES WILL CALL PATIENT WITH APPOINTMENT TIME) Delano Maya MD [Primary Care Provider] - 07/03/18 11:00 am (SATURDAY) Patient Instructions/Handouts: Heart Failure (DC) Discharge Disposition: HOME SELF-CARE
== END 2018-06-23 17:16 | disposition home health service (06) | DRG 291 ==
LOC: EC 09:11 → 6SEL 12:00
PROVIDERS: ADMIT Hospitalist; ATTEND Hospitalist
DX: I11.0 Hypertensive heart disease with heart failure (principal); J18.9 Pneumonia, unspecified organism; J96.21 Acute and chronic respiratory failure with hypoxia; I48.92 Unspecified atrial flutter; J44.0 Chronic obstructive pulmonary disease with (acute) lower respiratory infection; I50.33 Acute on chronic diastolic (congestive) heart failure; I27.20 Pulmonary hypertension, unspecified; I08.1 Rheumatic disorders of both mitral and tricuspid valves; I44.7 Left bundle-branch block, unspecified; I48.2 Chronic atrial fibrillation; E03.9 Hypothyroidism, unspecified; E66.9 Obesity, unspecified; E78.5 Hyperlipidemia, unspecified; G25.81 Restless legs syndrome; H40.9 Unspecified glaucoma; K21.9 Gastro-esophageal reflux disease without esophagitis; L71.9 Rosacea, unspecified; M19.91 Primary osteoarthritis, unspecified site; N39.3 Stress incontinence (female) (male); R00.0 Tachycardia, unspecified; D64.9 Anemia, unspecified; Z68.33 Body mass index [BMI] 33.0-33.9, adult; Z79.01 Long term (current) use of anticoagulants; Z79.51 Long term (current) use of inhaled steroids; Z79.83 Long term (current) use of bisphosphonates; Z79.890 Hormone replacement therapy; Z79.899 Other long term (current) drug therapy; Z85.038 Personal history of other malignant neoplasm of large intestine; Z86.73 Personal history of transient ischemic attack (TIA), and cerebral infarction without residual deficits; Z87.891 Personal history of nicotine dependence; Z99.81 Dependence on supplemental oxygen; Z88.1 Allergy status to other antibiotic agents; Z88.5 Allergy status to narcotic agent; Z88.2 Allergy status to sulfonamides; Z89.211 Acquired absence of right upper limb below elbow; Z92.21 Personal history of antineoplastic chemotherapy; Z92.3 Personal history of irradiation; Z91.81 History of falling; Z90.49 Acquired absence of other specified parts of digestive tract; Z98.42 Cataract extraction status, left eye; Z98.41 Cataract extraction status, right eye; Z96.1 Presence of intraocular lens; Z86.010 Personal history of colon polyps; Z87.440 Personal history of urinary (tract) infections; Z82.49 Family history of ischemic heart disease and other diseases of the circulatory system; Z81.1 Family history of alcohol abuse and dependence; Z83.79 Family history of other diseases of the digestive system
CPT/HCPCS: 36415; 71045; 71046; 80048; 80053; 82550; 82553; 83605; 83880; 84443; 84484; 85025; 85610; 85730; 87040; 87070; 87205; 93005; 93306; 94640; 94760; 96365; 96366; 96375; 99285

== ENCOUNTER 2018-08-11 13:44 | Emergency (ER) | payer MEDICARE ==
[2018-08-11 14:00] VITALS: TEMP 97.5
--- NOTE | 2018-08-11 14:23 | ED ---
General Adult HPI - General Chief complaint: Extremity Injury, Upper Stated complaint: fall/arm & shoulder pain Time Seen by Provider: 08/11/18 14:09 Source: patient, family, RN notes reviewed Mode of arrival: wheelchair Limitations: no limitations - History of Present Illness Initial comments: Patient is a pleasant 82-year-old female presenting to the emergency Department with complaints of left arm pain. Patient did have a fall 3 days ago. Patient states discomfort has been present however worse today. Discomfort worsens with movement. Patient also admits to having a mild cough for the past few days. Patient does not feel short of breath. Patient does normally wear oxygen at home secondary to chronic lung disease. - Related Data Home Medications Medication Instructions Recorded Confirmed Alendronate Sodium [Fosamax] 70 mg PO SCHMITT 11/30/16 08/11/18 Citalopram Hydrobromide [CeleXA] 20 mg PO HS 11/30/16 08/11/18 Famotidine [Pepcid] 20 mg PO DAILY 11/30/16 08/11/18 Latanoprost [Xalatan 0.005%] 1 drop BOTH EYES HS 11/30/16 08/11/18 Levothyroxine Sodium [Synthroid] 100 mcg PO DAILY 11/30/16 08/11/18 Potassium Chloride ER [K-Dur 10] 10 meq PO DAILY 11/30/16 08/11/18 Simvastatin [Zocor] 40 mg PO HS 11/30/16 08/11/18 Calcium Carbonate/Vitamin D3 1 tab PO DAILY 05/30/17 08/11/18 [Calcium 600-Vit D3 800 Tab] Multivitamins, Thera [Multivitamin 1 tab PO DAILY@1800 05/30/17 08/11/18 (formulary)] Vitamin E (Dl,Tocopheryl Acet) 400 unit PO DAILY@1800 05/30/17 08/11/18 [Vitamin E] fentaNYL 25MCG/HR PATCH [Duragesic 1 patch TRANSDERM Q72H 11/02/17 08/11/18 25MCG/HR] rOPINIRole HCL [Requip] 2 mg PO HS 11/02/17 08/11/18 ALPRAZolam [Xanax] 0.25 mg PO HS 01/08/18 08/11/18 Furosemide [Lasix] 40 mg PO DAILY 03/27/18 08/11/18 Ferrous Sulfate [Iron (65 MG 325 mg PO MOTUWETHFR 06/17/18 08/11/18 Elemental)] Amiodarone [Cordarone] 200 mg PO DAILY 07/16/18 08/11/18 Metoprolol Tartrate [Lopressor] 50 mg PO BID 07/16/18 08/11/18 Apixaban [Eliquis] 5 mg PO BID 08/11/18 08/11/18 Ipratropium-Albuterol Nebulize 3 ml INHALATION RT-TID 08/11/18 08/11/18 [Duoneb 0.5 mg-3 mg/3 ml Soln] Sennosides-Docusate Sodium 1 tab PO DAILY 08/11/18 08/11/18 [Senokot-S] Previous Rx's Medication Instructions Recorded Budesonide/Formoterol Fumarate 2 puff INHALATION RT-BID #0 07/18/18 [Symbicort 160-4.5 Mcg Inhaler] Azithromycin [Zithromax Z-pack] 250 mg PO DIRECTED #6 tab 08/11/18 Allergies Allergy/AdvReac Type Severity Reaction Status Date / Time codeine AdvReac Confusion Verified 08/11/18 14:34 sulfamethoxazole AdvReac Nausea & Verified 08/11/18 14:34 [From Bactrim] Vomiting trimethoprim [From Bactrim] AdvReac Nausea & Verified 08/11/18 14:34 Vomiting Review of Systems ROS Statement: Those systems with pertinent positive or pertinent negative responses have been documented in the HPI. ROS Other: All systems not noted in ROS Statement are negative. Constitutional: Denies: fever Eyes: Denies: eye pain ENT: Denies: ear pain Respiratory: Reports: cough Cardiovascular: Denies: chest pain Endocrine: Denies: fatigue Gastrointestinal: Denies: abdominal pain Genitourinary: Denies: dysuria Musculoskeletal: Denies: back pain Skin: Denies: lesions Neurological: Denies: headache Past Medical History Past Medical History: Atrial Fibrillation, Asthma, Cancer, Heart Failure, CVA/ TIA, GERD/Reflux, Hyperlipidemia, Hypertension, Osteoarthritis (OA), Pneumonia, Thyroid Disorder, Vascular Disorder Additional Past Medical History / Comment(s): home 02 2 liters n/c , Murmur; constipation,Colon Ca 2001(has sx,chemo and radiation),rosacea,injury to rt hand / lost most of it. rls, glaucoma,pleurisy, sinus problems,uti, urinary incont- wears a pad. 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)-amp 4 finger and hadgrafting done(donor site was abd), carpal tunnel, krista cataracts,colonoscopy/polypectomy, right knee surgery Past Anesthesia/Blood Transfusion Reactions: No Reported Reaction Past Psychological History: No Psychological Hx Reported Smoking Status: Former smoker Past Alcohol Use History: None Reported Past Drug Use History: None Reported - Past Family History Father Family Medical History: Liver Disease Additional Family Medical History / Comment(s): etoh abuse-cirrhosis of the liver Mother Additional Family Medical History / Comment(s): brain aneurysm General Exam Limitations: no limitations General appearance: alert, in no apparent distress Head exam: Present: atraumatic Neck exam: Present: normal inspection. Absent: tenderness Respiratory exam: Present: normal lung sounds bilaterally Cardiovascular Exam: Present: regular rate, normal rhythm Expanded Peripheral pulses: 2+: Radial (L) GI/Abdominal exam: Present: soft. Absent: tenderness Extremities exam: Present: tenderness (Moderate tenderness left proximal humerus with ecchymosis. Distally the extremity is neurovascularly intact. Pain with range of motion of the shoulder.) Neurological exam: Present: alert Psychiatric exam: Present: normal affect, normal mood Skin exam: Present: other (Left proximal humerus ecchymosis) Course Vital Signs 08/11/18 13:56 Temperature 97.5 F L Pulse Rate 60 Respiratory 18 Rate Blood Pressure 124/52 O2 Sat by Pulse 88 L Oximetry Medical Decision Making - Medical Decision Making Pulse ox is 100% on 2 L which is what patient does wear at home. Patient and family updated on chest x-ray results. Patient and family do not want further evaluation done at this time and requests discharge with outpatient antibiotics. They are agreeable to return if symptoms worsen. - Radiology Data Radiology results: image reviewed ((Humerus x-ray shows no evidence of acute fracture. Chest x-ray suspicious for right lower lobe infiltrate) Disposition Clinical Impression: Arm injury, Pneumonia Disposition: HOME SELF-CARE Condition: Stable Instructions: Bacterial Pneumonia (ED) Additional Instructions: Please follow-up with primary care physician in the next day or 2 for recheck. Return for difficulty in breathing, fevers, pain, worsening change in symptoms or other concerns. Arm sling as needed. Prescriptions: Azithromycin [Zithromax Z-pack] 250 mg PO DIRECTED #6 tab Is patient prescribed a controlled substance at d/c from ED?: No Referrals: Delano Maya MD [Primary Care Provider] - 1-2 days Time of Disposition: 15:26
--- NOTE | 2018-08-11 14:42 | XR ---
EXAMINATION TYPE: XR humerus LT DATE OF EXAM: 08/11/2018 COMPARISON: NONE HISTORY: Left arm pain TECHNIQUE: 2 views submitted. FINDINGS: The osseous structures are intact and the joint spaces are preserved. Olecranon spur noted. Arthropa thy of the AC joint. Diffuse osteopenia noted. IMPRESSION: 1. No acute fracture or dislocation.
--- NOTE | 2018-08-11 14:45 | XR ---
EXAMINATION TYPE: XR chest 2V DATE OF EXAM: 08/11/2018 HISTORY: Shortness of breath. COMPARISON: None. TECHNIQUE: Single view of the chest is submitted. FINDINGS: Demonstrated are scattered senescent parenchymal change. Patchy density right lower lobe may reflect developing infiltrate. Correlate clinically and progress studies are recommended. The heart is stable. Hilar and mediastinal structures are within normal limits. Degenerative changes are seen of the dorsal spine. IMPRESSION: 1. Patchy density right lower lobe may reflect developing infiltrate. Correlate clinically and progr ess studies are recommended.
[2018-08-11] MEDS ORDERED: AZITHROMYCIN 500 MG TAB PO STA (15:26)
[2018-08-11 15:39] VITALS: BP 139/74; PULSE 68; RESP 16
== END 2018-08-11 15:30 | disposition home or self-care (01) ==
LOC: EC 13:44
DX: S40.022A Contusion of left upper arm, initial encounter (principal); J18.9 Pneumonia, unspecified organism; I48.91 Unspecified atrial fibrillation; J45.909 Unspecified asthma, uncomplicated; I11.0 Hypertensive heart disease with heart failure; I50.9 Heart failure, unspecified; K21.9 Gastro-esophageal reflux disease without esophagitis; E78.5 Hyperlipidemia, unspecified; M19.90 Unspecified osteoarthritis, unspecified site; H40.9 Unspecified glaucoma; E07.9 Disorder of thyroid, unspecified; G25.81 Restless legs syndrome; Z86.73 Personal history of transient ischemic attack (TIA), and cerebral infarction without residual deficits; Z85.038 Personal history of other malignant neoplasm of large intestine; Z92.21 Personal history of antineoplastic chemotherapy; Z99.81 Dependence on supplemental oxygen; Z87.891 Personal history of nicotine dependence; Z79.891 Long term (current) use of opiate analgesic; Z79.01 Long term (current) use of anticoagulants; Z79.899 Other long term (current) drug therapy; Z88.5 Allergy status to narcotic agent; Z88.2 Allergy status to sulfonamides; W19.XXXA Unspecified fall, initial encounter; Y92.002 Bathroom of unspecified non-institutional (private) residence as the place of occurrence of the external cause
CPT/HCPCS: 71046; 99283

== ENCOUNTER 2018-09-05 15:24 | Inpatient (IN) | payer MEDICARE ==
[2018-09-05] MEDS ORDERED: ASPIRIN 81 MG PO STA (16:08)
[2018-09-05] MEDS ORDERED: SODIUM CHLORIDE 0.9% 500 ML 500 ML IV ONE (16:08)
[2018-09-05] MEDS ORDERED: DILTIAZEM DRIP BOLUS FROM BAG 1 MG SOLN IV ONE (16:20)
--- NOTE | 2018-09-05 16:32 | ED ---
General Adult HPI - General Chief complaint: Shortness of Breath Stated complaint: BRADLEY Time Seen by Provider: 09/05/18 15:44 Source: patient, family Mode of arrival: wheelchair Limitations: no limitations - History of Present Illness Initial comments: An 82-year-old female with a chief complaint of weakness and shortness of breath. Patient states her symptoms started at noon today. She cannot identify inciting incident. She states she felt fine prior to 12:00. There are no aggravating or alleviating factors. Timing is constant. The patient's daughter is with her and states that she appears pale. The patient denies any headache, lightheadedness, dizziness. She admits to shortness of breath but denies chest pain. She states that she has been having normal bowel movements without blood, and normal urination. The patient does admit to some nausea but has not vomited. She has a medical history of atrial fibrillation, currently on Eliquis. - Related Data Home Medications Medication Instructions Recorded Confirmed Alendronate Sodium [Fosamax] 70 mg PO SCHMITT 11/30/16 09/05/18 Citalopram Hydrobromide [CeleXA] 20 mg PO HS 11/30/16 09/05/18 Famotidine [Pepcid] 20 mg PO DAILY 11/30/16 09/05/18 Latanoprost [Xalatan 0.005%] 1 drop BOTH EYES HS 11/30/16 09/05/18 Levothyroxine Sodium [Synthroid] 100 mcg PO DAILY 11/30/16 09/05/18 Potassium Chloride ER [K-Dur 10] 10 meq PO DAILY 11/30/16 09/05/18 Simvastatin [Zocor] 40 mg PO HS 11/30/16 09/05/18 Calcium Carbonate/Vitamin D3 1 tab PO DAILY 05/30/17 09/05/18 [Calcium 600-Vit D3 800 Tab] Multivitamins, Thera [Multivitamin 1 tab PO DAILY@1800 05/30/17 09/05/18 (formulary)] Vitamin E (Dl,Tocopheryl Acet) 400 unit PO DAILY@1800 05/30/17 09/05/18 [Vitamin E] fentaNYL 25MCG/HR PATCH [Duragesic 1 patch TRANSDERM Q72H 11/02/17 09/05/18 25MCG/HR] rOPINIRole HCL [Requip] 2 mg PO HS 11/02/17 09/05/18 ALPRAZolam [Xanax] 0.25 mg PO HS 01/08/18 09/05/18 Furosemide [Lasix] 40 mg PO DAILY 03/27/18 09/05/18 Ferrous Sulfate [Iron (65 MG 325 mg PO MOTUWETHFR 06/17/18 09/05/18 Elemental)] Apixaban [Eliquis] 5 mg PO BID 08/11/18 09/05/18 Ipratropium-Albuterol Nebulize 3 ml INHALATION RT-TID 08/11/18 09/05/18 [Duoneb 0.5 mg-3 mg/3 ml Soln] Sennosides-Docusate Sodium 1 tab PO DAILY 08/11/18 09/05/18 [Senokot-S] Amiodarone [Cordarone] 200 mg PO BID 09/05/18 09/05/18 HYDROcodone/APAP 10-325MG [Hobbs 1 tab PO Q8HR 09/05/18 09/05/18 10-325] Metoprolol Tartrate [Lopressor] 25 mg PO QID 09/05/18 09/05/18 Previous Rx's Medication Instructions Recorded Budesonide/Formoterol Fumarate 2 puff INHALATION RT-BID #0 07/18/18 [Symbicort 160-4.5 Mcg Inhaler] Allergies Allergy/AdvReac Type Severity Reaction Status Date / Time codeine AdvReac Confusion Verified 09/05/18 18:34 sulfamethoxazole AdvReac Nausea & Verified 09/05/18 18:34 [From Bactrim] Vomiting trimethoprim [From Bactrim] AdvReac Nausea & Verified 09/05/18 18:34 Vomiting Review of Systems ROS Statement: Those systems with pertinent positive or pertinent negative responses have been documented in the HPI. ROS Other: All systems not noted in ROS Statement are negative. Constitutional: Reports: weakness Gastrointestinal: Reports: nausea Past Medical History Past Medical History: Atrial Fibrillation, Asthma, Cancer, Heart Failure, CVA/ TIA, GERD/Reflux, Hyperlipidemia, Hypertension, Osteoarthritis (OA), Pneumonia, Thyroid Disorder, Vascular Disorder Additional Past Medical History / Comment(s): home 02 2 liters n/c , Murmur; constipation,Colon Ca 2001(has sx,chemo and radiation),rosacea,injury to rt hand / lost most of it. rls, glaucoma,pleurisy, sinus problems,uti, urinary incont- wears a pad. 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)-amp 4 finger and hadgrafting done(donor site was abd), carpal tunnel, krista cataracts,colonoscopy/polypectomy, right knee surgery Past Anesthesia/Blood Transfusion Reactions: No Reported Reaction Past Psychological History: No Psychological Hx Reported Smoking Status: Former smoker Past Alcohol Use History: None Reported Past Drug Use History: None Reported - Past Family History Father Family Medical History: Liver Disease Additional Family Medical History / Comment(s): etoh abuse-cirrhosis of the liver Mother Additional Family Medical History / Comment(s): brain aneurysm General Exam Limitations: no limitations General appearance: alert, in no apparent distress Head exam: Present: atraumatic, normocephalic Eye exam: Present: normal appearance, PERRL ENT exam: Present: normal exam Neck exam: Present: normal inspection Respiratory exam: Present: normal lung sounds bilaterally. Absent: respiratory distress, wheezes Cardiovascular Exam: Present: regular rate, normal rhythm GI/Abdominal exam: Present: soft. Absent: distended, tenderness Rectal exam: Present: deferred Back exam: Present: normal inspection Neurological exam: Present: alert, oriented X3 Psychiatric exam: Present: normal affect, normal mood Skin exam: Present: warm, dry, intact, pallor Course Vital Signs 09/05/18 09/05/18 09/05/18 15:34 15:56 16:30 Temperature 98.2 F Pulse Rate 99 122 H Respiratory 20 24 Rate Blood Pressure 120/52 102/58 O2 Sat by Pulse 97 99 Oximetry 09/05/18 09/05/18 09/05/18 17:00 17:45 18:00 Temperature Pulse Rate 124 H 126 H 128 H Respiratory 18 Rate Blood Pressure 125/68 122/76 136/82 O2 Sat by Pulse 100 100 100 Oximetry 09/05/18 09/05/18 09/05/18 18:30 19:00 19:30 Temperature Pulse Rate 125 H 128 H 129 H Respiratory Rate Blood Pressure 122/72 130/62 101/64 O2 Sat by Pulse 100 100 Oximetry 09/05/18 09/05/18 09/05/18 20:00 20:27 20:37 Temperature 98.1 F 98 F Pulse Rate 137 H 126 H 129 H Respiratory 16 16 Rate Blood Pressure 141/79 125/69 136/73 O2 Sat by Pulse Oximetry 09/05/18 09/05/18 09/05/18 21:00 21:07 22:00 Temperature 98.2 F Pulse Rate 128 H 120 H 141 H Respiratory 16 Rate Blood Pressure 136/73 134/83 116/88 O2 Sat by Pulse 100 Oximetry 09/05/18 09/05/18 09/06/18 23:00 23:25 00:00 Temperature Pulse Rate 130 H 129 H 133 H Respiratory 16 Rate Blood Pressure 123/64 120/64 127/68 O2 Sat by Pulse 98 98 Oximetry 09/06/18 09/06/18 00:17 00:30 Temperature Pulse Rate 124 H 124 H Respiratory Rate Blood Pressure 124/63 124/63 O2 Sat by Pulse 98 97 Oximetry Medical Decision Making - Medical Decision Making Patient presents with a chief complaint of weakness and shortness of breath since noon. On initial evaluation, vital signs show tachycardia and mild hypotension. Patient is no acute distress. EKG performed at 1612 shows atrial fibrillation with RVR. Cerebellar criteria are not met. Patient not currently having chest pain. Patient does have a history of congestive heart failure however given hypotension she will be given 500 mL of IV fluid, a 10 mg bolus of Cardizem, and started on a Cardizem drip. Patient given aspirin. Patient to be evaluated with basic labs including cardiac enzymes, chest x-ray, and urinalysis. 6:36 PM lab evaluation significant for hyperkalemia, mild HUGO, and anemia with an HGB of 6.5. FOBT negative, no other signs of active bleeding. initial troponin elevated at 0.053, likely 2/2 demand, patient given aspirin, given anemia and unknown source of loss, will hold on further anticoagulation. cardizem rate increased from 5-10 as pressure remains stable. patient consented for blood transfusion. will follow repeat troponin and admit patient for anemia and a. fib RVR. considered PE, though patient already anticoagulated, no respiratory distress, and O2 saturations stable on room air. 9:01 PM case discussed with Dr. Alfonso who accepts admission with consult to Dr. Leslie. - Lab Data Result diagrams: 09/05/18 16:20 09/05/18 16:20 Lab Results 09/05/18 09/05/18 09/05/18 Range/Units 14:20 16:20 16:20 WBC 6.2 (3.8-10.6) k/uL RBC 2.41 L (3.80-5.40) m/uL Hgb 6.5 L* D (11.4-16.0) gm/dL Hct 21.9 L (34.0-46.0) % MCV 90.8 D (80.0-100.0) fL MCH 26.9 (25.0-35.0) pg MCHC 29.6 L (31.0-37.0) g/dL RDW 16.0 H (11.5-15.5) % Plt Count 105 L (150-450) k/uL Neutrophils % 70 % Lymphocytes % 18 % Monocytes % 8 % Eosinophils % 1 % Basophils % 0 % Neutrophils # 4.3 (1.3-7.7) k/uL Lymphocytes # 1.1 (1.0-4.8) k/uL Monocytes # 0.5 (0-1.0) k/uL Eosinophils # 0.1 (0-0.7) k/uL Basophils # 0.0 (0-0.2) k/uL Hypochromasia Marked Poikilocytosis Moderate Anisocytosis Slight Sodium (137-145) mmol/L Potassium (3.5-5.1) mmol/L Chloride (98-107) mmol/L Carbon Dioxide (22-30) mmol/L Anion Gap mmol/L BUN (7-17) mg/dL Creatinine (0.52-1.04) mg/dL Est GFR (CKD-EPI)AfAm (>60 ml/min/1.73 sqM) Est GFR (CKD-EPI)NonAf (>60 ml/min/1.73 sqM) Glucose (74-99) mg/dL Calcium (8.4-10.2) mg/dL Magnesium (1.6-2.3) mg/dL Total Bilirubin (0.2-1.3) mg/dL AST (14-36) U/L ALT (9-52) U/L Alkaline Phosphatase (38-126) U/L Troponin I 0.053 H* (0.000-0.034) ng/mL NT-Pro-B Natriuret Pep pg/mL Total Protein (6.3-8.2) g/dL Albumin (3.5-5.0) g/dL Lipase (23-300) U/L TSH (0.465-4.680) mIU/L Free T4 (0.78-2.19) ng/dL Stool Occult Blood (Negative) Blood Type AB Positive Blood Type Confirm Blood Type Recheck CABO Indicated Antibody Screen NEGATIVE Crossmatch See Detail Spec Expiration Date 09/08/2018 - 231909/05/18 09/05/18 09/05/18 Range/Units 16:20 16:20 16:20 WBC (3.8-10.6) k/uL RBC (3.80-5.40) m/uL Hgb (11.4-16.0) gm/dL Hct (34.0-46.0) % MCV (80.0-100.0) fL MCH (25.0-35.0) pg MCHC (31.0-37.0) g/dL RDW (11.5-15.5) % Plt Count (150-450) k/uL Neutrophils % % Lymphocytes % % Monocytes % % Eosinophils % % Basophils % % Neutrophils # (1.3-7.7) k/uL Lymphocytes # (1.0-4.8) k/uL Monocytes # (0-1.0) k/uL Eosinophils # (0-0.7) k/uL Basophils # (0-0.2) k/uL Hypochromasia Poikilocytosis Anisocytosis Sodium 138 (137-145) mmol/L Potassium 5.2 H (3.5-5.1) mmol/L Chloride 104 (98-107) mmol/L Carbon Dioxide 27 (22-30) mmol/L Anion Gap 7 mmol/L BUN 26 H (7-17) mg/dL Creatinine 1.19 H (0.52-1.04) mg/dL Est GFR (CKD-EPI)AfAm 49 (>60 ml/min/1.73 sqM) Est GFR (CKD-EPI)NonAf 43 (>60 ml/min/1.73 sqM) Glucose 94 (74-99) mg/dL Calcium 8.6 (8.4-10.2) mg/dL Magnesium 2.1 (1.6-2.3) mg/dL Total Bilirubin 0.5 (0.2-1.3) mg/dL AST 28 (14-36) U/L ALT 33 (9-52) U/L Alkaline Phosphatase 118 (38-126) U/L Troponin I (0.000-0.034) ng/mL NT-Pro-B Natriuret Pep 4020 pg/mL Total Protein 6.4 (6.3-8.2) g/dL Albumin 3.4 L (3.5-5.0) g/dL Lipase 376 H (23-300) U/L TSH 10.900 H (0.465-4.680) mIU/L Free T4 1.56 (0.78-2.19) ng/dL Stool Occult Blood (Negative) Blood Type Blood Type Confirm Blood Type Recheck Antibody Screen Crossmatch Spec Expiration Date 09/05/18 09/05/18 Range/Units 17:42 18:10 WBC (3.8-10.6) k/uL RBC (3.80-5.40) m/uL Hgb (11.4-16.0) gm/dL Hct (34.0-46.0) % MCV (80.0-100.0) fL MCH (25.0-35.0) pg MCHC (31.0-37.0) g/dL RDW (11.5-15.5) % Plt Count (150-450) k/uL Neutrophils % % Lymphocytes % % Monocytes % % Eosinophils % % Basophils % % Neutrophils # (1.3-7.7) k/uL Lymphocytes # (1.0-4.8) k/uL Monocytes # (0-1.0) k/uL Eosinophils # (0-0.7) k/uL Basophils # (0-0.2) k/uL Hypochromasia Poikilocytosis Anisocytosis Sodium (137-145) mmol/L Potassium (3.5-5.1) mmol/L Chloride (98-107) mmol/L Carbon Dioxide (22-30) mmol/L Anion Gap mmol/L BUN (7-17) mg/dL Creatinine (0.52-1.04) mg/dL Est GFR (CKD-EPI)AfAm (>60 ml/min/1.73 sqM) Est GFR (CKD-EPI)NonAf (>60 ml/min/1.73 sqM) Glucose (74-99) mg/dL Calcium (8.4-10.2) mg/dL Magnesium (1.6-2.3) mg/dL Total Bilirubin (0.2-1.3) mg/dL AST (14-36) U/L ALT (9-52) U/L Alkaline Phosphatase (38-126) U/L Troponin I (0.000-0.034) ng/mL NT-Pro-B Natriuret Pep pg/mL Total Protein (6.3-8.2) g/dL Albumin (3.5-5.0) g/dL Lipase (23-300) U/L TSH (0.465-4.680) mIU/L Free T4 (0.78-2.19) ng/dL Stool Occult Blood Negative (Negative) Blood Type Blood Type Confirm AB Positive Blood Type Recheck Antibody Screen Crossmatch Spec Expiration Date Disposition Clinical Impression: Anemia, Atrial fibrillation with RVR, SOB (shortness of breath), Blood transfusion during current hospitalisation Disposition: ADMITTED IP TO THIS HOSP Condition: Good Is patient prescribed a controlled substance at d/c from ED?: No Decision to Admit Reason: Admit from EC - Out of Hospital Transfer - Req. Specs Out of Hospital Transfer - Requested Specifics: Telemetry Unit
[2018-09-05] MEDS: DILTIAZEM 50 MG in SODIUM CHLORIDE 0.9% 40 ML IV SCH (16:42)
[2018-09-05 16:46] LABS: Anisocytosis Slight; Basophils % (A) 0 %; Eosinophils # (A) 0.1 k/uL (0-0.7); Eosinophils % (A) 1 %; HCT 21.9 % (34.0-46.0); Hypochromasia Marked; Lymphocytes # (A) 1.1 k/uL (1.0-4.8); Lymphocytes % (A) 18 %; MCH 26.9 pg (25.0-35.0); MCHC 29.6 g/dL (31.0-37.0); Mean Platelet Volume 8.4; Monocytes # (A) 0.5 k/uL (0-1.0); Monocytes % (A) 8 %; Neutrophils # (A) 4.3 k/uL (1.3-7.7); Neutrophils % (A) 70 %; Platelet Count 105 k/uL (150-450); Poikilocytosis Moderate; RBC 2.41 m/uL (3.80-5.40); WBC 6.2 k/uL (3.8-10.6)
[2018-09-05 16:47] LABS: MCV 90.8 fL (80.0-100.0)
[2018-09-05 16:49] LABS: HGB 6.5 gm/dL (11.4-16.0)
[2018-09-05] MEDS ORDERED: FUROSEMIDE 10 MG/ML 4 ML VIAL IV PRN (16:56)
[2018-09-05 16:57] LABS: Albumin 3.4 g/dL (3.5-5.0); Calcium 8.6 mg/dL (8.4-10.2); Magnesium 2.1 mg/dL (1.6-2.3); Potassium 5.2 mmol/L (3.5-5.1); Total Bilirubin 0.5 mg/dL (0.2-1.3); Total Protein 6.4 g/dL (6.3-8.2)
[2018-09-05 19:43] LABS: T4, Free (Free Thyroxine) 1.56 ng/dL (0.78-2.19)
--- NOTE | 2018-09-05 20:58 | XR ---
EXAMINATION TYPE: XR chest 2V DATE OF EXAM: 09/05/2018 COMPARISON: 08/27/2018 HISTORY: Short of breath TECHNIQUE: Frontal and lateral views of the chest are obtained. FINDINGS: Heart is enlarged. There is no heart failure. There is coarsening of the interstitial pulm onary markings. There is no pleural effusion. IMPRESSION: Cardiomegaly. There is new mild pulmonary interstitial edema compared to recent exam. No overt heart failure.
[2018-09-05] MEDS ORDERED: NALOXONE 0.4 MG/ML 1 ML VIAL IV PRN (21:06)
[2018-09-06] MEDS: DILTIAZEM 50 MG in SODIUM CHLORIDE 0.9% 40 ML IV SCH ×2 (03:18→08:55)
[2018-09-06] MEDS ORDERED: LEVOTHYROXINE 100 MCG TAB PO SCH (06:30)
[2018-09-06 06:48] LABS: Anisocytosis Slight; Basophils % (A) 0 %; Eosinophils # (A) 0.3 k/uL (0-0.7); Eosinophils % (A) 4 %; HCT 24.2 % (34.0-46.0); HGB 7.3 gm/dL (11.4-16.0); Hypochromasia Marked; Lymphocytes # (A) 1.5 k/uL (1.0-4.8); Lymphocytes % (A) 23 %; MCH 26.8 pg (25.0-35.0); MCV 89.2 fL (80.0-100.0); Mean Platelet Volume 8.7; Monocytes # (A) 0.5 k/uL (0-1.0); Monocytes % (A) 7 %; Neutrophils # (A) 4.1 k/uL (1.3-7.7); Neutrophils % (A) 63 %; Poikilocytosis Marked; RBC 2.72 m/uL (3.80-5.40); RDW 16.2 % (11.5-15.5); WBC 6.5 k/uL (3.8-10.6)
[2018-09-06 06:55] LABS: Calcium 8.4 mg/dL (8.4-10.2); Potassium 4.9 mmol/L (3.5-5.1)
[2018-09-06 07:20] LABS: Platelet Count 98 k/uL (150-450)
[2018-09-06] MEDS: SENNOSIDES-DOCUSATE SODIUM 1 EACH TAB PO SCH (08:34)
[2018-09-06] MEDS: CALCIUM CARB-VIT D 500MG-200UN 1 EACH TAB PO SCH (08:34)
[2018-09-06] MEDS: FUROSEMIDE 40 MG TAB PO SCH (08:34)
[2018-09-06] MEDS: FAMOTIDINE 20 MG TAB PO SCH (08:34)
[2018-09-06] MEDS ORDERED: METOPROLOL TARTRATE 25 MG TAB PO SCH (09:00)
--- NOTE | 2018-09-06 09:14 | P.CRDCN ---
History of Present Illness Consult date: 09/06/18 Requesting physician: Jona Alfonso Consult reason: atrial fibrillation Chief complaint: Near syncope History of present illness: This is a pleasant 82-year-old female with known history of COPD, hypertension, asthma, hyperlipidemia, hypothyroidism, history of colon cancer, chronic persistent atrial fibrillation, anemia, prior CVA, who presented to the hospital after experiencing a near syncopal episode at home. According to the patient, she was in her kitchen standing up, had an episode where she felt like she may pass out. She denies any overt dizziness, states that she was mildly lightheaded. She also denies any palpitations. She does state that she felt a little short of breath. For this reason she came to the emergency room for further evaluation. Laboratory data on admission here, white blood cell count 6.2 with a hemoglobin of 6.5, patient did receive a unit of blood, her hemoglobin this morning is 7.3. Platelet count 105 on admission, 98 this morning and hemoglobin this morning is 7.3. Sodium 138, potassium 5.2 on admission, 4.9 this morning. BUN on admission 26 and creatinine 1.1, 23 and 1.1 this morning. Magnesium 2.1. Troponin 0.053, 0.043. BNP level 4020. TSH 10.9, free T4 1 0.5. Stool for occult blood negative. EKG on admission here shows atrial fibrillation with left bundle branch block pattern, rapid rate of 130. Chest x-ray shows cardiomegaly, new mild pulmonary interstitial edema as compared with prior. Patient was initiated on IV Cardizem and continues to be on IV Cardizem at this time at 10 mg per hour her heart rate this morning 120. According to the patient, she has not had any blood in her stool that she's noted and no black stools. She was on Eliquis at home for anticoagulation, 5 mg one tablet by mouth twice a day. Patient was also on amiodarone at home along with Lasix 40 mg by mouth daily, iron supplementation, metoprolol 25 mg 4 times a day and Zocor. At the time of my examination this morning, patient states she feels tired, she did not sleep well through the night last night. She denies any palpitations or shortness of breath. Past Medical History Past Medical History: Atrial Fibrillation, Asthma, Cancer, Heart Failure, CVA/ TIA, GERD/Reflux, Hyperlipidemia, Hypertension, Osteoarthritis (OA), Pneumonia, Thyroid Disorder, Vascular Disorder Additional Past Medical History / Comment(s): home 02 2 liters n/c , Murmur; constipation,Colon Ca 2001(has sx,chemo and radiation),rosacea,injury to rt hand / lost most of it. rls, glaucoma,pleurisy, sinus problems,uti, past falls(broke lt hip and R patella(had sx), uses a w/c when out side the home.pne vaccine-but pt not sure when she had it. 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 has home 02, cane/walker, shower chair . has healthcare technician to help with showers. Smoking Status: Former smoker Past Alcohol Use History: None Reported Additional Past Alcohol Use History / Comment(s): started smoking 1966,quit 1986 , smkoed 1.5 ppd Past Drug Use History: None Reported - Past Family History Father Family Medical History: Liver Disease Additional Family Medical History / Comment(s): etoh abuse-cirrhosis of the liver Mother Additional Family Medical History / Comment(s): brain aneurysm Medications and Allergies Home Medications Medication Instructions Recorded Confirmed Type Alendronate Sodium [Fosamax] 70 mg PO SINHA 11/30/16 09/05/18 History Citalopram Hydrobromide [CeleXA] 20 mg PO HS 11/30/16 09/05/18 History Famotidine [Pepcid] 20 mg PO DAILY 11/30/16 09/05/18 History Latanoprost [Xalatan 0.005%] 1 drop BOTH EYES HS 11/30/16 09/05/18 History Levothyroxine Sodium [Synthroid] 100 mcg PO DAILY 11/30/16 09/05/18 History Potassium Chloride ER [K-Dur 10] 10 meq PO DAILY 11/30/16 09/05/18 History Simvastatin [Zocor] 40 mg PO HS 11/30/16 09/05/18 History Calcium Carbonate/Vitamin D3 1 tab PO DAILY 05/30/17 09/05/18 History [Calcium 600-Vit D3 800 Tab] Multivitamins, Thera [Multivitamin 1 tab PO DAILY@1800 05/30/17 09/05/18 History (formulary)] Vitamin E (Dl,Tocopheryl Acet) 400 unit PO DAILY@1800 05/30/17 09/05/18 History [Vitamin E] fentaNYL 25MCG/HR PATCH [Duragesic 1 patch TRANSDERM Q72H 11/02/17 09/05/18 History 25MCG/HR] rOPINIRole HCL [Requip] 2 mg PO HS 11/02/17 09/05/18 History ALPRAZolam [Xanax] 0.25 mg PO HS 01/08/18 09/05/18 History Furosemide [Lasix] 40 mg PO DAILY 03/27/18 09/05/18 History Ferrous Sulfate [Iron (65 MG 325 mg PO MOTUWETHFR 06/17/18 09/05/18 History Elemental)] Budesonide/Formoterol Fumarate 2 puff INHALATION RT-BID #0 07/18/18 09/05/18 Rx [Symbicort 160-4.5 Mcg Inhaler] Apixaban [Eliquis] 5 mg PO BID 08/11/18 09/05/18 History Ipratropium-Albuterol Nebulize 3 ml INHALATION RT-TID 08/11/18 09/05/18 History [Duoneb 0.5 mg-3 mg/3 ml Soln] Sennosides-Docusate Sodium 1 tab PO DAILY 08/11/18 09/05/18 History [Senokot-S] Amiodarone [Cordarone] 200 mg PO BID 09/05/18 09/05/18 History HYDROcodone/APAP 10-325MG [[place] 1 tab PO Q8HR 09/05/18 09/05/18 History 10-325] Metoprolol Tartrate [Lopressor] 25 mg PO QID 09/05/18 09/05/18 History Allergies Allergy/AdvReac Type Severity Reaction Status Date / Time codeine AdvReac Confusion Verified 09/05/18 18:34 sulfamethoxazole AdvReac Nausea & Verified 09/05/18 18:34 [From Bactrim] Vomiting trimethoprim [From Bactrim] AdvReac Nausea & Verified 09/05/18 18:34 Vomiting Physical Exam Vitals: Vital Signs Temp Pulse Pulse Resp BP BP Pulse Ox 09/06/18 08:30 98.6 F 128 H 18 138/53 95 09/06/18 04:00 98.3 F 124 H 18 143/65 98 09/06/18 01:15 128 H 106/67 97 09/06/18 01:00 125 H 127/84 98 09/06/18 00:45 130 H 133/61 97 09/06/18 00:30 124 H 124/63 97 09/06/18 00:17 124 H 124/63 98 09/06/18 00:00 133 H 127/68 98 09/05/18 23:25 129 H 16 120/64 09/05/18 23:00 130 H 123/64 98 09/05/18 22:00 141 H 116/88 09/05/18 21:07 98.2 F 120 H 16 134/83 09/05/18 21:00 128 H 136/73 100 09/05/18 20:37 98 F 129 H 16 136/73 09/05/18 20:27 98.1 F 126 H 16 125/69 09/05/18 20:00 137 H 141/79 09/05/18 19:30 129 H 101/64 09/05/18 19:00 128 H 130/62 100 09/05/18 18:30 125 H 122/72 100 09/05/18 18:00 128 H 136/82 100 09/05/18 17:45 126 H 18 122/76 100 09/05/18 17:00 124 H 125/68 100 09/05/18 16:30 122 H 24 102/58 09/05/18 15:56 99 09/05/18 15:34 98.2 F 99 20 120/52 97 Intake and Output 09/05/18 09/06/18 09/06/18 22:59 06:59 14:59 Intake Total 0 871.833 18.667 Balance 0 871.833 18.667 Intake: Intake, IV Titration 81.833 18.667 Amount Diltiazem 50 mg In Sodium 81.833 18.667 Chloride 0.9% 40 ml @ Per Protocol IV .Q0M [facility] Rx#:[id number] Oral 480 Blood Product 0 310 Rc As-1 Unit 0 310 [id number] Other: Voiding Method Bedside Commode Weight 85.729 kg 89 kg PHYSICAL EXAMINATION: GENERAL: 82-year-old female in no acute distress at the time of my examination HEENT: Head is atraumatic, normocephalic. Pupils equal, round. Sclera anicteric. Conjunctiva are clear. Mucous membranes of the mouth are moist. Neck is supple. There is no elevated jugular venous pressure. No carotid bruit is heard. HEART EXAMINATION: Heart S1-S2 irregularly irregular diastolic murmur is heard CHEST EXAMINATION: And's reveal crackles to bilateral bases. ABDOMEN: Soft, obese, nontender. Bowel sounds are heard. No organomegaly noted. EXTREMITIES: 2+ peripheral pulses with no evidence of peripheral edema and no calf tenderness noted. NEUROLOGIC patient is awake, alert and oriented 3 . . Results 09/06/18 06:18 09/06/18 06:18 Cardiac Enzymes 09/05/18 09/05/18 09/06/18 Range/Units 16:20 16:20 06:18 AST 28 (14-36) U/L Troponin I 0.053 H* 0.043 H* (0.000-0.034) ng/mL CBC 09/05/18 09/06/18 Range/Units 16:20 06:18 WBC 6.2 6.5 (3.8-10.6) k/uL RBC 2.41 L 2.72 L (3.80-5.40) m/uL Hgb 6.5 L* D 7.3 L (11.4-16.0) gm/dL Hct 21.9 L 24.2 L (34.0-46.0) % Plt Count 105 L 98 L (150-450) k/uL Comprehensive Metabolic Panel 09/05/18 09/06/18 Range/Units 16:20 06:18 Sodium 138 140 (137-145) mmol/L Potassium 5.2 H 4.9 (3.5-5.1) mmol/L Chloride 104 107 (98-107) mmol/L Carbon Dioxide 27 30 (22-30) mmol/L BUN 26 H 23 H (7-17) mg/dL Creatinine 1.19 H 1.11 H (0.52-1.04) mg/dL Glucose 94 95 (74-99) mg/dL Calcium 8.6 8.4 (8.4-10.2) mg/dL AST 28 (14-36) U/L ALT 33 (9-52) U/L Alkaline Phosphatase 118 (38-126) U/L Total Protein 6.4 (6.3-8.2) g/dL Albumin 3.4 L (3.5-5.0) g/dL Current Medications Generic Name Dose Route Start Last Admin Trade Name Freq PRN Reason Stop Dose Admin Albuterol/Ipratropium 3 ml 09/06/18 08:00 Duoneb 0.5 Mg-3 Mg/3 Ml Soln INHALATION RT-TID ANGELA Alprazolam 0.25 mg 09/06/18 21:00 Xanax PO HS ANGELA Atorvastatin Calcium 20 mg 09/06/18 21:00 Lipitor PO HS ANGELA Budesonide/Formoterol Fumarate 2 puff 09/06/18 08:00 Symbicort 160-4.5 Mcg Inhaler INHALATION RT-BID ANGELA Calcium Carbonate 1 each 09/06/18 09:00 09/06/18 08:34 Oscal 500+D PO 1 each DAILY ANGELA Administration Famotidine 20 mg 09/06/18 09:00 09/06/18 08:34 Pepcid PO 20 mg DAILY ANGELA Administration Ferrous Sulfate 325 mg 09/08/18 09:00 Feosol PO MoTuWeThFr@0900 ANGELA Furosemide 40 mg 09/06/18 09:00 09/06/18 08:34 Lasix PO 40 mg DAILY ANGELA Administration Diltiazem HCl 50 mg/ Sodium 50 mls @ 0 mls/hr 09/05/18 16:30 09/06/18 08:57 Chloride IV 0 mls/hr .Q0M ANGELA 0 mls/hr Titration Protocol Per Protocol Latanoprost 1 drops 09/06/18 21:00 Xalatan 0.005% BOTH EYES HS [facility] Levothyroxine Sodium 100 mcg 09/06/18 06:30 09/06/18 06:28 Synthroid PO 100 mcg DAILY@0630 ANGELA Administration Metoprolol Tartrate 25 mg 10/27/18 09:00 09/06/18 08:34 Lopressor PO 25 mg QID ANGELA Administration Multivitamins 1 each 09/06/18 18:00 Theragran PO DAILY@1800 [facility] Naloxone HCl 0.2 mg 09/05/18 21:06 Narcan IV Q2M PRN Opioid Reversal Alendronate Sodium [ 70 mg 09/07/18 09:00 Fosamax] 70 Mg PO Sinha@0900 [facility] Ropinirole HCl 2 mg 09/06/18 21:00 Requip PO HS ANGELA Senna/Docusate Sodium 1 each 09/06/18 09:00 09/06/18 08:34 Senokot-S PO 1 each DAILY ANGELA Administration Vitamin E 400 unit 09/06/18 18:00 Vitamin E PO DAILY@1800 [facility] Intake and Output 09/05/18 09/06/18 09/06/18 22:59 06:59 14:59 Intake Total 0 871.833 18.667 Balance 0 871.833 18.667 Intake: Intake, IV Titration 81.833 18.667 Amount Diltiazem 50 mg In Sodium 81.833 18.667 Chloride 0.9% 40 ml @ Per Protocol IV .Q0M [facility] Rx#:[id number] Oral 480 Blood Product 0 310 Rc As-1 Unit 0 310 [id number] Other: Voiding Method Bedside Commode Weight 85.729 kg 89 kg 09/06/18 06:18 09/06/18 06:18 EKG Interpretations (text) EKG on admission shows atrial fibrillation with rapid ventricular response. Assessment and Plan Plan: Assessment and plan #1 atrial fibrillation with rapid ventricular response, chronic persistent, on Eliquis 5 mg twice a day at home #2 hypertension 3 hyperlipidemia #4 COPD #5 prior CVA #6 history of colon cancer #7 anemia, status post blood transfusion, hemoglobin on admission 6.5, 7.3 this morning. Stool for occult blood was negative. Patient has a known history of anemia. #8 GERD #9 hypothyroidism TSH 10.9 with free T4 of 1.5. #10 mild abnormality in troponin, likely secondary to supply and demand mismatch. Plan Patient had an echocardiogram with Doppler study performed in June of this year which revealed an ejection fraction of 60-65%. We will not repeat an echo on this admission. We will discontinue the patient's Cardizem drip, increased dose of metoprolol, resume amiodarone. Consider resuming Eliquis 2-1/2 mg one tablet by mouth twice a day. Further recommendations to follow. DNP note has been reviewed, I agree with a documented findings and plan of care. Patient was seen and examined.
[2018-09-06] MEDS: METOPROLOL TARTRATE 50 MG TAB PO SCH ×3 (09:51→21:29)
[2018-09-06] MEDS ORDERED: METOPROLOL TARTRATE 25 MG TAB PO STA (09:51)
[2018-09-06] MEDS: AMIODARONE 200 MG TAB PO SCH ×2 (10:08→21:29)
[2018-09-06] MEDS ORDERED: ALPRAZolam 0.25 MG TAB PO STA (10:42)
[2018-09-06] MEDS: IPRATROPIUM-ALBUTEROL 3 ML NEB INHALATION SCH ×3 (12:53→19:44)
[2018-09-06] MEDS: SYMBICORT 160-4.5 MCG INHALER INHALATION SCH ×2 (12:53→19:44)
[2018-09-06 15:39] VITALS: BMI 33.7
[2018-09-06] MEDS: MULTIVITAMINS, THERA 1 EACH TAB PO SCH (17:18)
[2018-09-06] MEDS: VITAMIN E (DL,TOCOPHERYL ACET) 400 UNIT CAP PO SCH (17:18)
[2018-09-06] MEDS: ALPRAZolam 0.25 MG TAB PO SCH (21:28)
[2018-09-06] MEDS: CITALOPRAM HYDROBROMIDE 20 MG TAB PO SCH (21:29)
[2018-09-06] MEDS: ATORVASTATIN 20 MG TAB PO SCH (21:29)
[2018-09-06] MEDS: LATANOPROST 0.005% OPHTH DROPS 2.5 ML BTL BOTH EYES SCH (21:29)
--- NOTE | 2018-09-06 22:53 | HP ---
HISTORY AND PHYSICAL DATE OF ADMISSION: 09/05/2018 DATE OF SERVICE: September 06, 2018. PRESENT COMPLAINT: Nearly passed out. HISTORY OF PRESENTING COMPLAINT: This is a very pleasant 82-year-old patient of Dr. Maya. The patient's chronic stable medical conditions include GERD, hyperlipidemia, hypertension, osteoarthritis, hypothyroid, on home oxygen 2 L. The patient normally uses a walker to get about. The patient was in the kitchen and suddenly started feeling dizzy, did not feel right. She called out for help. The patient does have a helper at home who came out and called the patient's daughter in law. The patient's blood pressure is running low. The patient is brought to the ER. There was no chest pain. There was no palpitation. The patient's EKG did show atrial fibrillation with a rate up to 130s. The patient also discovered to have a hemoglobin of 6.5. The patient does take Eliquis at home and she does look at her stools because she has had previously colon cancer and the patient did receive a unit of blood that was ordered earlier and Cardiology was consulted. The patient was started on IV Cardizem. The patient's Eliquis was held off. Gastroenterology was consulted. REVIEW OF SYSTEMS: CONSTITUTIONAL: Tired. HEENT: None. RESPIRATORY: None. CARDIOVASCULAR: None. GASTROINTESTINAL: None. GENITOURINARY: None. MUSCULOSKELETAL: Pain in the joints. DERMATOLOGICAL, HEMATOLOGIC, LYMPHATIC: none. PSYCHIATRY none. NEUROLOGICAL: Uses a walker. PAST MEDICAL HISTORY: Of asthma, heart failure, stroke, GERD, hyperlipidemia, hypertension, osteoarthritis, hypothyroid, home oxygen 2 L, colon cancer in 2001 treated with chemo and radiation. Rosacea, right hand loss in a machine accident, glaucoma, urinary incontinence, wears pads. Uses a wheelchair outside the house and a walker at home. PAST SURGICAL HISTORY: Bowel resection, left hip IM nailing, right hand surgery, carpal tunnel, bilateral cataract surgery, colonoscopy with polypectomy, right knee surgery. SOCIAL HISTORY: Patient lives with his son and his , 2 grandchildren. Home oxygen. Uses a walker and shower chair. Patient smoked for about 20 years, stopped in 1996. Smoked a pack and a half a day. Alcohol none. FAMILY HISTORY: Alcohol abuse and cirrhosis. HOME MEDICATIONS: 1. Requip 2 mg q.h.s. 2. Duragesic 25 mg patch every 72 hours. 3. Vitamin E 400 units p.o. daily. 4. Zocor 40 mg q.h.s. 5. Senokot S 1 tablet p.o. daily. 6. Potassium 10 mEq p.o. daily. 7. Multivitamin 1 tablet p.o. daily. 8. Lopressor 25 mg p.o. q.i.d. 9. Synthroid 100 mcg p.o. daily. 10.Xalatan 0.005% 1 drop to both eyes q.h.s. 11.DuoNeb 3 mL t.i.d. 12.[place] 10 1 tablet p.o. q.8. 13.Lasix 40 mg p.o. daily. 14.Iron 325 mg p.o. daily. 15.Pepcid 20 mg p.o. daily. 16.Celexa 20 mg q.h.s. 17.Calcium 600 vitamin D3 one tablet p.o. daily. 18.Symbicort 160/4.5, 2 puffs b.i.d. 19.Eliquis 5 mg b.i.d. 20.Cordarone 200 mg b.i.d. 21.Fosamax 70 mg p.o. on Saturday. 22.Xanax 0.25 p.o. q.h.s. ALLERGIES: CODEINE AND BACTRIM. PHYSICAL EXAMINATION: VITAL SIGNS: Vital signs on presentation: Temperature 98.2, pulse 125, respiration 24, blood pressure 102/58, pulse ox 100 percent on room air. GENERAL APPEARANCE: Well built. BMI 33.7. Lying in bed. EYES: Pupils equal. Conjunctivae pale. HEENT: External appearance of nose and ears normal. Oral cavity normal. NECK: JVD unable to assess. Mass not palpable. RESPIRATORY: Effort normal. LUNGS: Decreased breath sounds. CARDIOVASCULAR: 1st and 2nd sounds normal. No edema. ABDOMEN: Soft, nontender. Liver and spleen not palpable. LYMPHATICS: No lymph nodes palpable in the neck and axilla. PSYCHIATRY: Alert and oriented x3. Mood and affect normal. NEUROLOGICAL: Pupils equal. Cranial nerves grossly intact. Power and sensation grossly intact. EXTREMITIES: The patient has got a right distal hand stump. INVESTIGATIONS: Labs on presentation: White count 6.2, hemoglobin 6.5, platelets 105, potassium 5.2, BUN 26, creatinine 1.19. Troponins were 0.053 and 0.043. TSH 10.9, free T4 1.566. EKG tracing personally reviewed by me shows atrial fibrillation with rapid ventricular rate with a left bundle branch block pattern. Chest x-ray film personally reviewed by me shows some cardiomegaly, some venous prominence. ASSESSMENT: 1. Persistent atrial fibrillation, presented with rapid ventricular rate, chronically on Eliquis. 2. Chronic congestive heart failure from diastolic dysfunction EF 60-65 percent. 3. Secondary pulmonary hypertension. 4. Gastroesophageal reflux disease. 5. Hyperlipidemia. 6. Essential hypertension. 7. Primary osteoarthritis. 8. Hypothyroidism. 9. Chronic hypoxic respiratory failure on 2 L oxygen. 10.History of colon cancer. 11.Rosacea. 12.Chronic urinary stress incontinence. 13.Obesity; BMI 33. 14.Chronic obstructive pulmonary disease in an ex smoker. 15.Symptomatic normocytic anemia in a patient who has had colon cancer. The patient will need possibly repeat colonoscopy if not done recently. 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 PLAN: Patient is started on a Cardizem drip. Was given a unit of blood. Cardiology was consulted and so was Gastroenterology. Care was discussed at length with the patient. Will increase patient's Synthroid to 112 mcg a day. Other medication and treatment plan is to continue. Patient's Eliquis has been held. MMODL / IJN: [id number] /
[2018-09-07] MEDS: HYDROcodone/APAP 10-325MG 1 EACH TAB PO PRN ×2 (04:48→18:47)
[2018-09-07] MEDS: LEVOTHYROXINE 112 MCG TAB PO SCH (06:18)
[2018-09-07 06:45] LABS: Anisocytosis Slight; Basophils % (A) 1 %; Eosinophils # (A) 0.5 k/uL (0-0.7); Eosinophils % (A) 7 %; HCT 24.1 % (34.0-46.0); Hypochromasia Marked; Lymphocytes # (A) 1.4 k/uL (1.0-4.8); Lymphocytes % (A) 19 %; MCH 26.7 pg (25.0-35.0); MCHC 29.2 g/dL (31.0-37.0); MCV 91.5 fL (80.0-100.0); Mean Platelet Volume 8.5; Monocytes # (A) 0.5 k/uL (0-1.0); Monocytes % (A) 7 %; Neutrophils # (A) 4.7 k/uL (1.3-7.7); Neutrophils % (A) 64 %; Poikilocytosis Moderate; RBC 2.64 m/uL (3.80-5.40); RDW 16.3 % (11.5-15.5); WBC 7.3 k/uL (3.8-10.6)
[2018-09-07 06:46] LABS: Platelet Count 98 k/uL (150-450)
[2018-09-07] MEDS: CALCIUM CARB-VIT D 500MG-200UN 1 EACH TAB PO SCH (07:51)
[2018-09-07] MEDS: AMIODARONE 200 MG TAB PO SCH ×2 (07:51→21:59)
[2018-09-07] MEDS: FUROSEMIDE 40 MG TAB PO SCH (07:52)
[2018-09-07] MEDS: METOPROLOL TARTRATE 50 MG TAB PO SCH ×2 (07:52→16:52)
[2018-09-07] MEDS: SENNOSIDES-DOCUSATE SODIUM 1 EACH TAB PO SCH (07:52)
[2018-09-07] MEDS: FAMOTIDINE 20 MG TAB PO SCH (07:55)
[2018-09-07] MEDS: IPRATROPIUM-ALBUTEROL 3 ML NEB INHALATION SCH ×3 (08:40→20:38)
[2018-09-07] MEDS: SYMBICORT 160-4.5 MCG INHALER INHALATION SCH ×2 (08:40→20:38)
[2018-09-07] MEDS ORDERED: Alendronate Sodium [Fosamax] 70 MG PO SCH (09:00)
--- NOTE | 2018-09-07 13:36 | CONS ---
CONSULTATION REASON FOR CONSULTATION: Severe symptomatic anemia. HISTORY OF PRESENT ILLNESS: The patient is an 82-year-old pleasant white female admitted to the hospital because of dizziness, not feeling well and fatigue for the last few days duration. She was subsequently brought to the emergency room by family and was noted to have anemia and hypertension. The patient has history of atrial fibrillation and has been on Eliquis for the last several years. She was also noted to have rapid ventricular heart rate, was admitted to the [facility] Care Unit and subsequently started on IV Cardizem drip. The initial hemoglobin was 6.5 g/dL. Eliquis currently on hold. The patient denies any abdominal pain. Reports no nausea or vomiting. Denies any rectal bleeding or melena. She states that she was diagnosed with colon cancer several years ago, but could not give me any details about this. She does not recall when her last colonoscopy was, but she thinks it was several years ago. She denies any recent NSAID use. No prior history of peptic ulcer disease. PAST MEDICAL HISTORY: Significant for GERD, hypertension, congestive heart failure, hyperlipidemia, degenerative joint disease, hypothyroidism, history of colon cancer in 2001. PAST SURGICAL HISTORY: Right hand surgery, carpal tunnel surgery, bilateral cataract surgery, right knee surgery, bowel resection for colon cancer. MEDICATIONS: At home include Lasix, iron, Pepcid, Celexa, Symbicort, [place], Cordarone, Fosamax, Xanax, [place], DuoNeb, Xalatan, Synthroid, Lopressor, potassium, Senokot, Zocor, Duragesic and Requip. SOCIAL HISTORY: No smoking or alcohol use. FAMILY HISTORY: Unremarkable. ALLERGIES: CODEINE and BACTRIM. REVIEW OF SYSTEMS: CARDIOPULMONARY: She complains of some shortness of breath, but denies any chest pain. NEUROLOGY: Unremarkable. PSYCHIATRY: Unremarkable. ENT/VISION: Unremarkable. CONSTITUTIONAL: No recent weight loss. No fever, chills or night sweats. She has been complaining of generalized weakness and fatigue and some dizziness. HEMATOLOGY: Severe anemia as mentioned above. PHYSICAL EXAMINATION: She appears comfortable, no apparent distress. Vital signs are stable. Blood pressure is 149/63, pulse is 65, temperature 98.1. HEENT examination is unremarkable. Conjunctivae pink. Sclerae anicteric. Oral cavity, no lesions. NECK: No JVD or lymph node enlargement. Chest was clear to auscultation. HEART: Regular rate and rhythm. Abdomen is soft. She was nontender, nondistended. The bowel sounds are positive. No organomegaly. EXTREMITIES: No pedal edema. SKIN: No rashes. NEURO: Alert, oriented x3. No focal deficits. LABS: From yesterday: WBC 6.2, hemoglobin 6.5, platelets 105, BUN 26, creatinine 1.1. Troponin was 0.053. Stool occult blood negative. IMPRESSION: 1. Severe symptomatic anemia with a hemoglobin of 6.5, but clinically no evidence of active ongoing bleeding. 2. Atrial fibrillation on Eliquis. 3. History of colon cancer diagnosed in 2001, status post surgery followed by chemoradiation and remains in remission. It is unclear when her last colonoscopy was but according to the patient it was several years ago. 4. Atrial fibrillation with rapid ventricular heart rate presently on IV Cardizem drip and rate is well controlled. Eliquis has been on hold since yesterday. RECOMMENDATIONS: I had a lengthy discussion with the patient regarding further workup of severe anemia. The patient already received 1 unit of blood transfusion and this morning hemoglobin is 7 g/dL. I discussed with her proceeding with upper endoscopy as well as colonoscopy in order to investigate anemia and she is agreeable to it. She will be scheduled for EGD and colonoscopy tomorrow. The Eliquis will be on hold for now and she will remain on clear liquid diet today. Thank you for this consultation. MMODL / IJN: [id number] /
--- NOTE | 2018-09-07 14:16 | P.PN ---
Subjective This is a pleasant 82-year-old female seen and examined sitting up in chair. Past medical history significant for COPD, hypertension, asthma, dyslipidemia, hypothyroidism, history of colon cancer, chronic persistent atrial fibrillation, anemia and prior CVA. She continues to feel short of breath with exertion. She denies symptoms of chest pain, dizziness or palpitations. She has been seen in consultation by GI services and she'll be scheduled for EGD colonoscopy tomorrow. Further recommendations will be made regarding Leonard at that time. Blood pressure 145/68 heart rate 62 afebrile maintaining oxygen saturation on nasal cannula 2 L. Laboratory data reviewed, hemoglobin 7.0, platelets 98. Currently maintained on amiodarone 200 mg twice a day, atorvastatin 20 mg daily, Lasix 40 mg by mouth daily, metoprolol 50 mg 3 times a day. GENERAL: Well-appearing, well-nourished and in no acute distress. Obese. NECK: Supple without JVD or thyromegaly. LUNGS: Breath sounds clear to auscultation bilaterally. Respiration equal and unlabored. No wheezes, rales or rhonchi. HEART: Irregular rate and rhythm with murmur noted, no rubs or gallops. S1 and S2 heard. EXTREMITIES: Normal range of motion, no edema. No clubbing or cyanosis. Peripheral pulses intact. ASSESSMENT Chronic persistent atrial fibrillation with rapid ventricular response, currently controlled. Anticoagulation on hold pending EGD colonoscopy. Symptomatic anemia, hemoglobin 6.5 on admission 1 unit transfused, 7.0 this morning. Hypertension Dyslipidemia Mild troponin leak secondary to supply demand mismatch Hypothyroidism COPD History of colon cancer PLAN Continue current medical regimen. Anticoagulation will remain on hold pending GI studies. We will continue to follow and make recommendations accordingly. Nurse Practitioner note has been reviewed, I agree with a documented findings and plan of care. Patient was seen and examined. Objective - Vital Signs Vital signs: Vital Signs Temp 98.0 F 09/07/18 12:00 Pulse 92 09/07/18 13:50 Resp 18 09/07/18 12:00 BP 145/68 09/07/18 12:00 Pulse Ox 99 09/07/18 12:00 Intake & Output 09/06/18 09/07/18 09/07/18 18:59 06:59 18:59 Intake Total 258.667 480 240 Output Total 200 Balance 258.667 480 40 Weight 89 kg 83.1 kg Intake: Intake, IV Titration 18.667 Amount Diltiazem 50 mg In Sodium 18.667 Chloride 0.9% 40 ml @ Per Protocol IV .Q0M [facility] Rx#:[id number] Oral 240 480 240 Output: Urine 200 Other: Voiding Method Bedside Commode Bedside Commode Bedside Commode # Voids 1 # Bowel Movements 1 1 - Labs CBC & Chem 7: 09/07/18 06:04 09/06/18 06:18 Labs: Abnormal Lab Results - Last 24 Hours (Table) 09/07/18 Range/Units 06:04 RBC 2.64 L (3.80-5.40) m/uL Hgb 7.0 L (11.4-16.0) gm/dL Hct 24.1 L (34.0-46.0) % MCHC 29.2 L (31.0-37.0) g/dL RDW 16.3 H (11.5-15.5) % Plt Count 98 L (150-450) k/uL
[2018-09-07] MEDS: VITAMIN E (DL,TOCOPHERYL ACET) 400 UNIT CAP PO SCH (16:56)
[2018-09-07] MEDS: MULTIVITAMINS, THERA 1 EACH TAB PO SCH (16:57)
[2018-09-07] MEDS ORDERED: PEG 3350-NA SULF,BICARB,CL/KCL 4,000 ML BOTTLE PO ONE (17:00)
--- NOTE | 2018-09-07 17:03 | PN ---
PROGRESS NOTE DATE OF SERVICE: September 07, 2018. PRESENTING COMPLAINT: Symptomatic anemia. INTERVAL HISTORY: This patient presented with near syncope, hypotension, severe anemia, did receive a unit of blood. Also had atrial fibrillation rapid rate, which is now better controlled. The patient's Eliquis is on hold. REVIEW OF SYSTEMS: Done for constitutional, cardiovascular, GI, pulmonary and relevant findings as above. CURRENT MEDICATIONS: Reviewed. PHYSICAL EXAMINATION: VITAL SIGNS: Temperature 98, pulse 52, respiratory 18, blood pressure 145/68, pulse ox 99% on 2 L. GENERAL APPEARANCE: Sitting up on a chair, awake. EYES: Pupils equal. Conjunctivae normal. HEENT: External appearance of nose and ears normal. Oral cavity normal. NECK JVD unable to assess. Mass not palpable. RESPIRATORY: Effort normal. LUNGS: Decreased breath sounds. CARDIOVASCULAR: 1st and 2nd sounds. No edema. ABDOMEN: Soft, nontender. Liver and spleen not palpable. PSYCHIATRY: Alert and oriented x3. Mood and affect normal. INVESTIGATIONS: White count 7.3, hemoglobin 7, platelets 98. ASSESSMENT: 1. Persistent atrial fibrillation presented with rapid ventricular rate chronically on Eliquis, now rate controlled. 2. Chronic congestive heart failure from diastolic dysfunction, EF 60-65 percent. 3. Secondary pulmonary hypertension. 4. Gastroesophageal reflux disease. 5. Hyperlipidemia. 6. Essential hypertension. 7. Primary osteoarthritis. 8. Hypothyroidism. 9. Chronic hypoxic respiratory failure on 2 L oxygen at home. 10.History of colon cancer. 11.Rosacea. 12.Chronic urinary stress incontinence. 13.Obesity; BMI 33. 14.Chronic obstructive pulmonary disease in an ex-smoker. 15.Symptomatic normocytic anemia. The patient has had colon cancer. The patient did require 1 unit of blood for an endoscopy tomorrow. 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 PLAN: Care was discussed with the patient. Doing better. Heart rate is better controlled. Eliquis remains on hold. MMODL / IJN: [id number] /
[2018-09-07] MEDS: CITALOPRAM HYDROBROMIDE 20 MG TAB PO SCH (21:59)
[2018-09-07] MEDS: ATORVASTATIN 20 MG TAB PO SCH (21:59)
[2018-09-07] MEDS: LATANOPROST 0.005% OPHTH DROPS 2.5 ML BTL BOTH EYES SCH (22:00)
[2018-09-07] MEDS: ALPRAZolam 0.25 MG TAB PO SCH (23:20)
[2018-09-08] MEDS: METOPROLOL TARTRATE 50 MG TAB PO SCH ×4 (04:09→23:16)
[2018-09-08] MEDS: LEVOTHYROXINE 112 MCG TAB PO SCH (04:09)
[2018-09-08] MEDS: IPRATROPIUM-ALBUTEROL 3 ML NEB INHALATION SCH ×3 (08:55→21:00)
[2018-09-08] MEDS: SYMBICORT 160-4.5 MCG INHALER INHALATION SCH ×2 (08:55→21:00)
[2018-09-08] MEDS: SENNOSIDES-DOCUSATE SODIUM 1 EACH TAB PO SCH (09:24)
[2018-09-08] MEDS: CALCIUM CARB-VIT D 500MG-200UN 1 EACH TAB PO SCH (09:24)
[2018-09-08] MEDS: FERROUS SULFATE 325 MG TAB PO SCH (09:25)
[2018-09-08] MEDS: FUROSEMIDE 40 MG TAB PO SCH (09:35)
[2018-09-08] MEDS: FAMOTIDINE 20 MG TAB PO SCH (09:35)
[2018-09-08] MEDS: AMIODARONE 200 MG TAB PO SCH ×2 (09:35→23:15)
[2018-09-08] MEDS ORDERED: PROPOFOL 10 MG/ML 20 ML VIAL IV ONE (14:15)
[2018-09-08] MEDS ORDERED: LIDOCAINE 1% INJ 10MG/ML (20 ML MDV) ONE (14:15)
[2018-09-08] MEDS ORDERED: IV FLUID CONTINUATION 1,000 ML IV ONE (14:18)
[2018-09-08] MEDS ORDERED: PEG 3350-NA SULF,BICARB,CL/KCL 4,000 ML BOTTLE PO ONE (15:30)
[2018-09-08] MEDS: MULTIVITAMINS, THERA 1 EACH TAB PO SCH (16:58)
[2018-09-08] MEDS: VITAMIN E (DL,TOCOPHERYL ACET) 400 UNIT CAP PO SCH (16:59)
--- NOTE | 2018-09-08 20:33 | PN ---
PROGRESS NOTE DATE OF SERVICE: 09/08/18. PRESENT COMPLAINT: Symptomatic anemia. INTERVAL HISTORY: The patient presents with symptomatic anemia. Did receive a unit of blood. Also atrial fibrillation with rapid ventricular rate that is now in sinus rhythm. The patient did go for colonoscopy today, but because of incomplete preparation, did come back. Otherwise feeling stable. I saw the patient before the procedure. REVIEW OF SYSTEMS: Done for constitutional, cardiovascular, GI, pulmonary; relevant findings as above. CURRENT MEDICATIONS: Reviewed. PHYSICAL EXAMINATION: Temperature 97.2, pulse 57, respiratory 18, blood pressure 145/62, pulse ox 98% on 2 L. GENERAL APPEARANCE: Sitting up in a chair, awake. EYES: Pupils equal. Conjunctivae normal. HEENT: External appearance of nose and ears normal. Oral cavity normal. NECK: JVD not raised. Mass not palpable. RESPIRATORY: Effort normal. Lungs, decreased breath sounds. CARDIOVASCULAR: 1st and 2nd sounds normal. No edema. ABDOMEN: Soft, nontender. Liver and spleen not palpable. PSYCHIATRY: Alert and oriented x3. Mood and affect normal. INVESTIGATIONS: White count 7.3, hemoglobin 7. Telemetry shows sinus rhythm. ASSESSMENT: 1. Paroxysmal atrial fibrillation with rapid ventricular rate on presentation now back in sinus rhythm. 2. Chronic congestive heart failure from diastolic dysfunction, EF 60-65 percent. 3. Secondary pulmonary hypertension. 4. Gastroesophageal reflux disease. 5. Hyperlipidemia. 6. Essential hypertension. 7. Primary osteoarthritis. 8. Hypothyroidism. 9. Chronic hypoxic respiratory failure on 2 L oxygen at home. 10.History of colon cancer. 11.Rosacea. 12.Chronic urinary stress incontinence. 13.Obesity; BMI 33. 14.Chronic obstructive pulmonary disease in an ex-smoker. 15.Symptomatic normocytic anemia. The patient's colonoscopy could not be done because of incomplete prep. 16.Thrombocytopenia. Possible ITP. PLAN: Continue current medication and treatment plan. Await repeat colonoscopy tomorrow. MMODL / IJN: [id number] /
[2018-09-08] MEDS: CITALOPRAM HYDROBROMIDE 20 MG TAB PO SCH (23:15)
[2018-09-08] MEDS: ALPRAZolam 0.25 MG TAB PO SCH (23:15)
[2018-09-08] MEDS: ATORVASTATIN 20 MG TAB PO SCH (23:15)
[2018-09-08] MEDS: LATANOPROST 0.005% OPHTH DROPS 2.5 ML BTL BOTH EYES SCH (23:16)
[2018-09-09] MEDS: HYDROcodone/APAP 10-325MG 1 EACH TAB PO PRN ×2 (02:08→13:51)
[2018-09-09] MEDS: CALCIUM CARB-VIT D 500MG-200UN 1 EACH TAB PO SCH (08:06)
[2018-09-09] MEDS: SENNOSIDES-DOCUSATE SODIUM 1 EACH TAB PO SCH (08:07)
[2018-09-09] MEDS: FERROUS SULFATE 325 MG TAB PO SCH (08:07)
[2018-09-09] MEDS: METOPROLOL TARTRATE 50 MG TAB PO SCH ×3 (08:20→22:22)
[2018-09-09] MEDS: AMIODARONE 200 MG TAB PO SCH ×2 (08:20→20:37)
[2018-09-09] MEDS: LEVOTHYROXINE 112 MCG TAB PO SCH (08:20)
[2018-09-09] MEDS: FUROSEMIDE 40 MG TAB PO SCH (08:20)
[2018-09-09] MEDS: FAMOTIDINE 20 MG TAB PO SCH (08:20)
[2018-09-09] MEDS: SYMBICORT 160-4.5 MCG INHALER INHALATION SCH ×2 (08:56→20:20)
[2018-09-09] MEDS: IPRATROPIUM-ALBUTEROL 3 ML NEB INHALATION SCH ×3 (08:57→20:20)
[2018-09-09] MEDS ORDERED: LIDOCAINE 1% INJ 10MG/ML (20 ML MDV) ONE (09:57)
[2018-09-09] MEDS ORDERED: ePHEDrine SULFATE/0.9% NACL/PF 50 MG/5 ML SYRINGE IV ONE (09:57)
[2018-09-09] MEDS ORDERED: PROPOFOL 10 MG/ML 20 ML VIAL IV ONE (09:57)
[2018-09-09] MEDS ORDERED: GLYCOPYRROLATE 0.2 MG/ML 2 ML VIAL ONE (09:57)
[2018-09-09] MEDS ORDERED: IV FLUID CONTINUATION 900 ML IV ONE (10:19)
--- NOTE | 2018-09-09 12:27 | CDI ---
Last Revision, October 2017 Documentation Clarification Form Date: 09/09/2018 12:15:59 PM From: Lety RasmussenJANEEN, CCDS Admit Date: 09/05/2018 9:08:00 PM Patient Name: Nadira Lopez Visit Number: [id number] Discharge Date: ATTENTION: The Clinical Documentation Specialists (CDI) and [facility] Coding Staff appreciate your assistance in clarifying documentation. Please respond to the clarification below the line at the bottom and electronically sign. The CDI & [facility] Coding staff will review the response and follow-up if needed. Please note: Queries are made part of the Legal Health Record. If you have any questions, please contact the author of this message via ITS. Jona Flores MD: A diagnosis of normocytic anemia lacks specificity to accurately reflect your patients severity of condition and clarification is needed. History/Risk Factors: Chronic Atrial Fibrillation, Chronic CHF diastolic, Secondary pulmonary hypertension, Chronic hypoxic respiratory failure on home O2 , GERD, Hyperlipidemia, Hypertension, OA, hypothyroid, Colon CA status post chemo & radiation. Clinical indicators: Presented with atrial fibrillation & low hemoglobin of 6.5 , takes Eliquis. Hemoglobin: 6.5, 7.3*, 7.0* Hematocrit: 21.9*, 24.2*, 24.1* Treatment: H/H, Transfused 1 unit PRBCs, IV fluid bolus, IV Cardizem drip bolus , IV Lasix. Home meds: Requip, Duragesic patch, Zocor, K, Lopressor, Synthroid, DuoNeb, Clay, Lasix, Iron, Pepcid, Celexa, Calcium, Symbicort puffs, Eliquis, Cordarone , Fosamax, Xanax. In order to capture the severity of condition, please clarify the type of anemia and etiology if known: Acute blood loss anemia Acute on chronic blood loss anemia Chronic blood loss anemia Iron deficiency anemia Hemolytic anemia Drug induced anemia Nutritional anemia Unable to determine Other, please specify _see progress note from today NAYD
--- NOTE | 2018-09-09 12:47 | P.PCN ---
Date of Procedure: 09/09/18 Description of Procedure: Brief history: A 82-year-old female with multiple medical comorbidities presents to the hospital with complaints of shortness of breath and was found to be severely anemic. The patient has a prior history of colon cancer which was treated with surgical intervention as well as chemoradiation. She denies any signs or symptoms of GI bleeding. The patient is unsure of her prior colonoscopic history. Procedure performed: Esophagogastroduodenoscopy with biopsy Colonoscopy with polypectomy Estimated blood loss: Minimal. Preoperative diagnosis: Severe symptomatic anemia Anesthesia: MAC Procedure: After informed consent was obtained from the patient was brought into the endoscopy unit and IV sedation was administered by anesthesia under continuous monitoring. Initially upper endoscopy was done. The Olympus GF 190 video endoscope was inserted into the mouth and esophagus intubated without any difficulty and was gradually advanced into the stomach and duodenum and carefully examined. The bulb and second part of the duodenum appeared grossly normal but did show some mild scattered erythema suggestive of duodenitis which was biopsied. The scope was then withdrawn into the stomach adequately insufflated with air and upon careful examination the antrum and body, cardia and fundus appeared grossly normal, with mild scattered erythema in the antrum and body suggestive of gastritis which was biopsied. The scope was then withdrawn into the esophagus. The GE junction was located at 35 cm to the incisors. A moderate-sized hiatal hernia was noted on retroflexion. It appeared regular with no erythema erosions or ulcerations. Rest of the esophagus appeared normal. Patient tolerated the procedure well. At this time the patient continued to remain sedation. Initial digital rectal examination was normal. Olympus CF 190 video colonoscope was then inserted into the rectum and gradually advanced to the cecum without any difficulty. Careful examination was performed as the scope was gradually being withdrawn. The prep was excellent. The cecum, ascending colon, transverse colon, descending colon, sigmoid colon and rectum appeared normal with mild scattered diverticular disease in the sigmoid and descending colon. Complete polypectomy of a 7 mm sessile polyp in the cecum was performed with cold snare. Complete polypectomy of a 4 mm sessile polyp in the transverse colon was performed with cold forceps. Complete polypectomy of a 3 mm sessile polyp in the descending colon was performed with cold forceps. Piecemeal resection of a 8 mm polyp in the sigmoid colon was performed, this was made difficult polyp was found behind a fold and was located on a turn in the sigmoid colon. Retroflexion was performed in the rectum and no lesions were noted. Patient tolerated the procedure well. Impression: 1. Gastritis, biopsied. Duodenitis, biopsied. Hiatal hernia. 2. Cold snare polypectomy of 2 polyps one in the cecum and one in the sigmoid colon. Cold forceps polypectomy of 2 polyps one in the transverse colon and one in the descending colon. Mild scattered diverticular disease. Recommendations: Findings of this examination were discussed with the patient. Okay to restart diet. Await pathology. Will need follow-up in the GI clinic in 2 weeks. Benefit from repeat colonoscopy in 6 months given piecemeal resection of sigmoid polyp. Monitor hemoglobin and hematocrit and transfuse as needed.
--- NOTE | 2018-09-09 16:40 | P.PN ---
Subjective Progress Note Date: 09/09/18 This is a pleasant 82-year-old female with known history of COPD, hypertension, asthma, hyperlipidemia, hypothyroidism, history of colon cancer, chronic persistent atrial fibrillation, anemia, prior CVA, who presented to the hospital after experiencing a near syncopal episode at home. According to the patient, she was in her kitchen standing up, had an episode where she felt like she may pass out. She denies any overt dizziness, states that she was mildly lightheaded. She also denies any palpitations. She does state that she felt a little short of breath. For this reason she came to the emergency room for further evaluation. Laboratory data on admission here, white blood cell count 6.2 with a hemoglobin of 6.5, patient did receive a unit of blood, her hemoglobin this morning is 7.3. Platelet count 105 on admission, 98 this morning and hemoglobin this morning is 7.3. Sodium 138, potassium 5.2 on admission, 4.9 this morning. BUN on admission 26 and creatinine 1.1, 23 and 1.1 this morning. Magnesium 2.1. Troponin 0.053, 0.043. BNP level 4020. TSH 10.9, free T4 1 0.5. Stool for occult blood negative. EKG on admission here shows atrial fibrillation with left bundle branch block pattern, rapid rate of 130. Chest x-ray shows cardiomegaly, new mild pulmonary interstitial edema as compared with prior. Patient was initiated on IV Cardizem and continues to be on IV Cardizem at this time at 10 mg per hour her heart rate this morning 120. According to the patient, she has not had any blood in her stool that she's noted and no black stools. She was on Eliquis at home for anticoagulation, 5 mg one tablet by mouth twice a day. Patient was also on amiodarone at home along with Lasix 40 mg by mouth daily, iron supplementation, metoprolol 25 mg 4 times a day and Zocor. At the time of my examination this morning, patient states she feels tired, she did not sleep well through the night last night. She denies any palpitations or shortness of breath. 09/09/2018 Patient was seen and examined today, underwent EGD and colonoscopy. Blood pressure was elevated on arrival back to the room but she was due to receive her beta amara. Objective - Vital Signs Vital signs: Vital Signs Temp 96.7 F L 09/09/18 13:28 Pulse 61 09/09/18 16:14 Resp 21 09/09/18 16:14 BP 176/73 09/09/18 16:14 Pulse Ox 99 09/09/18 16:14 Intake & Output 09/08/18 09/09/18 09/09/18 18:59 06:59 18:59 Intake Total 400 20 Output Total 200 842 9786 Balance 200 -400 -1180 Weight 84.2 kg Intake: IV 20 Oral 400 Output: Urine 387 502 0810 Other: Voiding Method Bedside Commode Bedside Commode Bedside Commode # Voids 1 1 1 # Bowel Movements 1 0 - Exam PHYSICAL EXAMINATION: GENERAL: 82-year-old female in no acute distress at the time of my examination HEENT: Head is atraumatic, normocephalic. Pupils equal, round. Sclera anicteric. Conjunctiva are clear. Mucous membranes of the mouth are moist. Neck is supple. There is no elevated jugular venous pressure. No carotid bruit is heard. HEART EXAMINATION: Heart S1-S2 irregularly irregular diastolic murmur is heard CHEST EXAMINATION: And's reveal crackles to bilateral bases. ABDOMEN: Soft, obese, nontender. Bowel sounds are heard. No organomegaly noted. EXTREMITIES: 2+ peripheral pulses with no evidence of peripheral edema and no calf tenderness noted. NEUROLOGIC patient is awake, alert and oriented 3 . - Labs CBC & Chem 7: 09/07/18 06:04 09/06/18 06:18 Labs: Abnormal Lab Results - Last 24 Hours (Table) 09/09/18 Range/Units 14:31 Crossmatch See Detail Assessment and Plan Plan: Assessment and plan #1 atrial fibrillation with rapid ventricular response, chronic persistent, on Eliquis 5 mg twice a day at home #2 hypertension 3 hyperlipidemia #4 COPD #5 prior CVA #6 history of colon cancer #7 anemia, status post blood transfusion, hemoglobin on admission 6.5, 7.3 this morning. Stool for occult blood was negative. Patient has a known history of anemia. #8 GERD #9 hypothyroidism TSH 10.9 with free T4 of 1.5. #10 mild abnormality in troponin, likely secondary to supply and demand mismatch. Plan Patient underwent an EGD and colonoscopy today, there is no evidence of any acute bleeding, biopsies percent. From our perspective we will continue current medications. Continue to monitor blood pressure. If the patient is cleared from GI perspective she will need to be back on anticoagulation. DNP note has been reviewed, I agree with a documented findings and plan of care. Patient was seen and examined.
[2018-09-09] MEDS ORDERED: amLODIPine 5 MG TAB PO STA (17:07)
[2018-09-09] MEDS: VITAMIN E (DL,TOCOPHERYL ACET) 400 UNIT CAP PO SCH (17:30)
[2018-09-09] MEDS: MULTIVITAMINS, THERA 1 EACH TAB PO SCH (17:30)
[2018-09-09] MEDS: CITALOPRAM HYDROBROMIDE 20 MG TAB PO SCH (20:37)
[2018-09-09] MEDS: ALPRAZolam 0.25 MG TAB PO SCH (20:37)
[2018-09-09] MEDS: ATORVASTATIN 20 MG TAB PO SCH (20:37)
[2018-09-09] MEDS: LATANOPROST 0.005% OPHTH DROPS 2.5 ML BTL BOTH EYES SCH (21:29)
--- NOTE | 2018-09-09 23:25 | PN ---
PROGRESS NOTE DATE OF SERVICE: September 09, 2018. PRESENTING COMPLAINT: Symptomatic anemia. INTERVAL HISTORY: This patient presented with symptomatic anemia, had received 2 units of blood, also in atrial fibrillation, rapid ventricular rate, now in sinus rhythm. The patient's colonoscopy showed mild diverticular disease. The patient had anemia felt to be from duodenitis and gastritis. Hemoglobin is 7 today. REVIEW OF SYSTEMS: Done for constitutional, cardiovascular, GI, pulmonary, relevant findings as above. CURRENT MEDICATIONS: Reviewed. PHYSICAL EXAMINATION: VITAL SIGNS: Temperature 98, pulse 64, respiratory 18, blood pressure 169/77, pulse ox 98 percent. GENERAL APPEARANCE: Sitting up in a chair, tired-appearing. EYES: Pupils equal. Conjunctivae pale. HEENT: External appearance of nose and ears normal. Oral cavity normal. NECK JVD not raised. Mass not palpable. RESPIRATORY: Effort normal. LUNGS: Decreased breath sounds. CARDIOVASCULAR: 1st and second sounds normal. No edema. ABDOMEN: Soft, nontender. Liver and spleen not palpable. PSYCHIATRY: Alert and oriented x3. Mood and affect normal. INVESTIGATIONS: Hemoglobin 7. ASSESSMENT: 1. Paroxysmal atrial fibrillation rapid ventricular rate on presentation now back in sinus rhythm. 2. Chronic congestive heart failure from diastolic dysfunction EF 65%. 3. 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 4. Gastroesophageal reflux disease. 5. Hyperlipidemia. 6. Essential hypertension. 7. Primary osteoarthritis. 8. Hypothyroidism. 9. Chronic hypoxic respiratory failure on 2 L oxygen at home. 10.History of colon cancer. 11.Rosacea. 12.Chronic urinary stress incontinence. 13.Obesity; BMI 33. 14.Chronic obstructive pulmonary disease in an ex-smoker. 15.Symptomatic normocytic anemia, symptomatic anemia from chronic gastrointestinal blood loss from duodenitis and gastritis. 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 PLAN: We will give a unit of blood today. Repeat a CBC in the morning. Hopefully patient can then be discharged. Care was discussed with the patient. MMODL / IJN: [id number] /
[2018-09-10] MEDS: LEVOTHYROXINE 112 MCG TAB PO SCH (06:04)
[2018-09-10 07:56] LABS: Basophils % (A) 0 %; Eosinophils # (A) 0.1 k/uL (0-0.7); Eosinophils % (A) 1 %; Hypochromasia Marked; Lymphocytes # (A) 1.1 k/uL (1.0-4.8); Lymphocytes % (A) 11 %; MCH 28.1 pg (25.0-35.0); MCHC 31.4 g/dL (31.0-37.0); MCV 89.4 fL (80.0-100.0); Mean Platelet Volume 8.9; Monocytes # (A) 0.4 k/uL (0-1.0); Monocytes % (A) 4 %; Neutrophils # (A) 8.4 k/uL (1.3-7.7); Neutrophils % (A) 83 %; Platelet Count 103 k/uL (150-450); Poikilocytosis Marked; RBC 3.02 m/uL (3.80-5.40); WBC 10.1 k/uL (3.8-10.6)
[2018-09-10 08:04] LABS: HGB 8.5 gm/dL (11.4-16.0)
[2018-09-10] MEDS: IPRATROPIUM-ALBUTEROL 3 ML NEB INHALATION SCH ×2 (08:23→12:47)
[2018-09-10] MEDS: SYMBICORT 160-4.5 MCG INHALER INHALATION SCH (08:23)
[2018-09-10] MEDS: METOPROLOL TARTRATE 50 MG TAB PO SCH ×2 (10:00→15:52)
[2018-09-10] MEDS: CALCIUM CARB-VIT D 500MG-200UN 1 EACH TAB PO SCH (10:00)
[2018-09-10] MEDS: FUROSEMIDE 40 MG TAB PO SCH (10:00)
[2018-09-10] MEDS: FAMOTIDINE 20 MG TAB PO SCH (10:00)
[2018-09-10] MEDS: FERROUS SULFATE 325 MG TAB PO SCH (10:00)
[2018-09-10] MEDS: AMIODARONE 200 MG TAB PO SCH (10:00)
[2018-09-10] MEDS: SENNOSIDES-DOCUSATE SODIUM 1 EACH TAB PO SCH (10:01)
[2018-09-10 10:07] VITALS: TEMP 97
--- NOTE | 2018-09-10 10:08 | P.PN ---
Subjective Progress Note Date: 09/10/18 Principal diagnosis: anemia s/p EGD colonoscopy for anemia screening; no evidence of PUD or active bleeding ; polypectomy and colonic diverticulosis. HGB 8.5. Platelet 103. Feels well. Denies GI bleeding. Objective - Vital Signs Vital signs: Vital Signs Temp 98 F 09/10/18 04:00 Pulse 56 L 09/10/18 08:41 Resp 20 09/10/18 04:00 BP 118/53 09/10/18 04:00 Pulse Ox 99 09/10/18 08:26 Intake & Output 09/09/18 09/10/18 09/10/18 18:59 06:59 18:59 Intake Total 260 150 Output Total 1200 300 Balance -940 -150 Weight 84.5 kg Intake: IV 20 Oral 240 150 Blood Product 0 0 Rc As-1 Unit 0 0 [id number] Output: Urine 1200 300 Other: Voiding Method Bedside Commode Bedside Commode # Voids 1 1 # Bowel Movements 0 1 - Constitutional General appearance: Present: average body habitus - EENT Eyes: Present: normal appearance ENT: Present: normal oropharynx - Neck Neck: Present: normal ROM - Respiratory Respiratory: bilateral: CTA - Cardiovascular Heart sounds: normal: S1, S2 - Gastrointestinal General gastrointestinal: Present: soft - Neurologic Neurologic: Present: CNII-XII intact - Psychiatric Psychiatric: Present: A&O x's 3 - Labs CBC & Chem 7: 09/10/18 07:17 09/06/18 06:18 Labs: Abnormal Lab Results - Last 24 Hours (Table) 09/05/18 09/09/18 09/10/18 Range/Units 14:20 14:31 07:17 RBC 3.02 L (3.80-5.40) m/uL Hgb 8.5 L D (11.4-16.0) gm/dL Hct 27.0 L (34.0-46.0) % RDW 16.0 H (11.5-15.5) % Plt Count 103 L (150-450) k/uL Neutrophils # 8.4 H (1.3-7.7) k/uL Crossmatch See Detail See Detail Assessment and Plan (1) Anemia Narrative/Plan: Severe symptomatic anemia without overt bleeding hemoccult negative s/p EGD/ colonoscopy with no evidence of active bleeding evidence of colonic diverticulosis. Current Visit: Yes Status: Acute Code(s): D64.9 - ANEMIA, UNSPECIFIED SNOMED Code(s): 522101592 (2) Thrombocytopenia Current Visit: Yes Status: Acute Code(s): D69.6 - THROMBOCYTOPENIA, UNSPECIFIED SNOMED Code(s): 607391274 (3) Atrial fibrillation Current Visit: Yes Status: Acute Code(s): I48.91 - UNSPECIFIED ATRIAL FIBRILLATION SNOMED Code(s): 81660778 Plan: 1. Recommend hematology consult. May restart anticoagulation. CBC monitoring. Regular diet. Assessment and plan of care discussed with Dr. Frey.
--- NOTE | 2018-09-10 15:02 | P.PN ---
Subjective Progress Note Date: 09/10/18 This is a pleasant 82-year-old female with known history of COPD, hypertension, asthma, hyperlipidemia, hypothyroidism, history of colon cancer, chronic persistent atrial fibrillation, anemia, prior CVA, who presented to the hospital after experiencing a near syncopal episode at home. According to the patient, she was in her kitchen standing up, had an episode where she felt like she may pass out. She denies any overt dizziness, states that she was mildly lightheaded. She also denies any palpitations. She does state that she felt a little short of breath. For this reason she came to the emergency room for further evaluation. Laboratory data on admission here, white blood cell count 6.2 with a hemoglobin of 6.5, patient did receive a unit of blood, her hemoglobin this morning is 7.3. Platelet count 105 on admission, 98 this morning and hemoglobin this morning is 7.3. Sodium 138, potassium 5.2 on admission, 4.9 this morning. BUN on admission 26 and creatinine 1.1, 23 and 1.1 this morning. Magnesium 2.1. Troponin 0.053, 0.043. BNP level 4020. TSH 10.9, free T4 1 0.5. Stool for occult blood negative. EKG on admission here shows atrial fibrillation with left bundle branch block pattern, rapid rate of 130. Chest x-ray shows cardiomegaly, new mild pulmonary interstitial edema as compared with prior. Patient was initiated on IV Cardizem and continues to be on IV Cardizem at this time at 10 mg per hour her heart rate this morning 120. According to the patient, she has not had any blood in her stool that she's noted and no black stools. She was on Eliquis at home for anticoagulation, 5 mg one tablet by mouth twice a day. Patient was also on amiodarone at home along with Lasix 40 mg by mouth daily, iron supplementation, metoprolol 25 mg 4 times a day and Zocor. At the time of my examination this morning, patient states she feels tired, she did not sleep well through the night last night. She denies any palpitations or shortness of breath. 09/09/2018 Patient was seen and examined today, underwent EGD and colonoscopy. Blood pressure was elevated on arrival back to the room but she was due to receive her beta amara. 09/10/2018 Patient seen and examined this afternoon, sitting up in the chair at bedside. Clearance has been given by GI service to resume the Eliquis. Blood pressure much more stable today, 140/60 this afternoon. Hemoglobin today is 8.5. Objective - Vital Signs Vital signs: Vital Signs Temp 97 F L 09/10/18 08:00 Pulse 60 09/10/18 12:57 Resp 18 09/10/18 12:00 BP 144/67 09/10/18 12:00 Pulse Ox 99 09/10/18 12:00 Intake & Output 09/09/18 09/10/18 09/10/18 18:59 06:59 18:59 Intake Total 260 150 620 Output Total 1200 300 700 Balance -940 -150 -80 Weight 84.5 kg Intake: IV 20 Oral 240 150 620 Blood Product 0 0 Rc As-1 Unit 0 0 [id number] Output: Urine 1200 300 700 Other: Voiding Method Bedside Commode Bedside Commode # Voids 1 1 1 # Bowel Movements 0 1 2 - Exam PHYSICAL EXAMINATION: GENERAL: 82-year-old female in no acute distress at the time of my examination HEENT: Head is atraumatic, normocephalic. Pupils equal, round. Sclera anicteric. Conjunctiva are clear. Mucous membranes of the mouth are moist. Neck is supple. There is no elevated jugular venous pressure. No carotid bruit is heard. HEART EXAMINATION: Heart S1-S2 irregularly irregular diastolic murmur is heard CHEST EXAMINATION: And's reveal crackles to bilateral bases. ABDOMEN: Soft, obese, nontender. Bowel sounds are heard. No organomegaly noted. EXTREMITIES: 2+ peripheral pulses with no evidence of peripheral edema and no calf tenderness noted. NEUROLOGIC patient is awake, alert and oriented 3 . - Labs CBC & Chem 7: 09/10/18 07:17 09/06/18 06:18 Labs: Abnormal Lab Results - Last 24 Hours (Table) 09/05/18 09/09/18 09/10/18 Range/Units 14:20 14:31 07:17 RBC 3.02 L (3.80-5.40) m/uL Hgb 8.5 L D (11.4-16.0) gm/dL Hct 27.0 L (34.0-46.0) % RDW 16.0 H (11.5-15.5) % Plt Count 103 L (150-450) k/uL Neutrophils # 8.4 H (1.3-7.7) k/uL Crossmatch See Detail See Detail Assessment and Plan Plan: Assessment and plan #1 atrial fibrillation with rapid ventricular response, chronic persistent, on Eliquis 5 mg twice a day at home #2 hypertension 3 hyperlipidemia #4 COPD #5 prior CVA #6 history of colon cancer #7 anemia, status post blood transfusion, hemoglobin on admission 6.5, 7.3 this morning. Stool for occult blood was negative. Patient has a known history of anemia. #8 GERD #9 hypothyroidism TSH 10.9 with free T4 of 1.5. #10 mild abnormality in troponin, likely secondary to supply and demand mismatch. Plan Patient has been cleared by GI service to be reinitiated on anticoagulation. We will resume the Eliquis 5 mg one tablet by mouth twice a day. DNP note has been reviewed, I agree with a documented findings and plan of care. Patient was seen and examined.
[2018-09-10 17:00] VITALS: BP 113/53; PULSE 54; RESP 17
[2018-09-10] MEDS ORDERED: APIXABAN 5 MG TAB PO SCH (21:00)
--- NOTE | 2018-09-11 00:20 | DS ---
DISCHARGE SUMMARY DATE OF ADMISSION: 09/05/2018. DATE OF DISCHARGE: September 10, 2018. FINAL DIAGNOSES: 1. Acute on chronic gastrointestinal bleed from duodenitis and gastritis from patient being on anticoagulants. 2. Paroxysmal atrial fibrillation rapid ventricular rate on presentation. 3. Chronic congestive heart failure from diastolic dysfunction EF 65%. 4. 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 5. Gastroesophageal reflux disease. 6. Hyperlipidemia. 7. Essential hypertension. 8. Primary osteoarthritis. 9. Hypothyroidism. 10.Chronic hypoxic respiratory failure on 2 L oxygen at home. 11.History of colon cancer. 12.Rosacea. 13.Chronic urinary stress incontinence. 14.Obesity; BMI 33. 15.Chronic obstructive pulmonary disease in an ex-smoker. 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 CONSULTATIONS: Dr. Baxter from Cardiology and Dr. Frey from Gastroenterology. HOSPITAL COURSE: This patient presented with nearly passing out, found to be in atrial fibrillation with rapid ventricular rate. Medications adjusted. Heart rate got better controlled. Also found to have significant anemia. Hemoglobin was 6.5. Patient given 2 units of blood. Hemoglobin finally was 8.5. EGD was done that did show evidence of duodenitis and gastritis. Both Gastroenterology and Cardiology decided okay to put the patient back on anticoagulation. PPI was added. Care was discussed with the patient family at bedside. Questions were answered. The patient's symptoms were greatly improved by the time of discharge. EXAMINATION: Afebrile, pulse 56, blood pressure 120/60, pulse ox 95% on room air. ABDOMEN: Soft, nontender. INVESTIGATIONS: Hemoglobin 8.5, platelets 103. DISCHARGE MEDICATIONS: 1. Fosamax 70 mg on Saturday. 2. Celexa 20 mg p.o. q.h.s. 3. Xalatan 0.005% 1 drop both eyes q.h.s. 4. Potassium 10 mEq a day. 5. Zocor 40 mg q.h.s. 6. Calcium vitamin D 1 tablet p.o. daily. 7. Multivitamin tab p.o. daily. 8. Vitamin E 400 units p.o. daily. 9. Duragesic 25 mcg patch every 72 hours. 10.Requip 2 mg p.o. q.h.s. 11.Xanax 0.25 p.o. q.h.s. 12.Lasix 40 mg p.o. daily. 13.Iron 325 p.o. daily. 14.Symbicort 160/4.5, 2 puffs b.i.d. 15.Eliquis 5 mg p.o. b.i.d. 16.DuoNeb t.i.d. 17.Senokot S 1 tablet p.o. daily. 18.Amiodarone 200 mg b.i.d. 19.[place] 10 one tablet q.8h p.r.n. 20.Synthroid 112 mcg p.o. daily new increased dose as TSH was high. 21.Lopressor 50 mg p.o. t.i.d. new dose. 22.Prilosec 20 mg b.i.d. FOLLOWUP: Follow up with Dr. Maya in 1 week. Follow up with Dr. Don Leslie on 09/12/2018, follow up with Dr. Paddy Frey on October 07, 2018. CBC in [address] Maya. MMODL / IJN: [id number] /
--- NOTE | 2018-09-11 11:10 | CDI ---
Last Revision, October 2017 Documentation Clarification Form Date: 09/11/18 From: Ingris Romano Emili Luciano, [employer] Supervisor Hours-8:30 am & 5 pm [facility]Mainor Admit Date: 09/05/2018 9:08:00 PM Patient Name: Nadira Lopez Visit Number: [id number] Discharge Date: 09/10/18 ATTENTION: The Clinical Documentation Specialists (CDI) and [facility] Coding Staff appreciate your assistance in clarifying documentation. Please respond to the clarification below the line at the bottom and electronically sign. The CDI & [facility] Coding staff will review the response and follow-up if needed. Please note: Queries are made part of the Legal Health Record. If you have any questions, please contact the author of this message via ITS. Jona Haddad MD Mild HUGO was documented in the ED note. History/Risk Factors: A Fib, hypotension, duodenitis/gastritis w bleeding, Chr diastolic CHF, ITP, chr resp failure w hypoxia BUN: 26, 23 CR: 1.19, 1.11 GFR: 43, 47 Treatment: IVFs In order to capture the severity of condition, please clarify if the condition signifies: KIDGO defines HUGO as the occurrence of any 1 of the following: Increase in serum creatinine level by 0.3 mg/dl, measured prospectively by at least 2 separate levels obtained within 48 hrs, or Increase in serum creatinine level to 1.5 times baseline or greater, which is known or presumed to have occurred within the prior 7 days, or A urine volume of less than 0.5 ml/kg/h for 6 hours or longer. In order to capture the severity of condition, please clarify if the condition signifies: Acute kidney injury ruled in Acute kidney injury ruled out Other, please specify Unable to determine Please continue to document in your progress notes and discharge summary in order to capture severity of illness and risk of mortality. Include clinical findings that support your diagnosis. NO ACUTE KIDNEY INJURY MTDD
== END 2018-09-10 17:00 | disposition home or self-care (01) | DRG 308 ==
LOC: EC 15:24 → 3SCARD 21:08
PROVIDERS: ADMIT Hospitalist; ATTEND Hospitalist
PROC: 0DB98ZX Excision of Duodenum, Via Natural or Artificial Opening Endoscopic, Diagnostic (ICD-10-PCS; principal; 2018-09-08)
PROC: 0DB78ZX Excision of Stomach, Pylorus, Via Natural or Artificial Opening Endoscopic, Diagnostic (ICD-10-PCS; 2018-09-08)
PROC: 0DBH8ZX Excision of Cecum, Via Natural or Artificial Opening Endoscopic, Diagnostic (ICD-10-PCS; 2018-09-08)
PROC: 0DBN8ZX Excision of Sigmoid Colon, Via Natural or Artificial Opening Endoscopic, Diagnostic (ICD-10-PCS; 2018-09-08)
PROC: 0DBM8ZX Excision of Descending Colon, Via Natural or Artificial Opening Endoscopic, Diagnostic (ICD-10-PCS; 2018-09-08)
PROC: 0DBL8ZX Excision of Transverse Colon, Via Natural or Artificial Opening Endoscopic, Diagnostic (ICD-10-PCS; 2018-09-08)
PROC: 30230N1 Transfusion of Nonautologous Red Blood Cells into Peripheral Vein, Open Approach (ICD-10-PCS; 2018-09-08)
DX: I48.2 Chronic atrial fibrillation (principal); K29.81 Duodenitis with bleeding; K29.71 Gastritis, unspecified, with bleeding; I50.32 Chronic diastolic (congestive) heart failure; J96.11 Chronic respiratory failure with hypoxia; D69.3 Immune thrombocytopenic purpura; J44.9 Chronic obstructive pulmonary disease, unspecified; E87.5 Hyperkalemia; I27.29 Other secondary pulmonary hypertension; I11.0 Hypertensive heart disease with heart failure; I95.9 Hypotension, unspecified; D50.0 Iron deficiency anemia secondary to blood loss (chronic); I44.7 Left bundle-branch block, unspecified; K44.9 Diaphragmatic hernia without obstruction or gangrene; K57.30 Diverticulosis of large intestine without perforation or abscess without bleeding; D12.0 Benign neoplasm of cecum; D12.4 Benign neoplasm of descending colon; D12.5 Benign neoplasm of sigmoid colon; D12.3 Benign neoplasm of transverse colon; K21.9 Gastro-esophageal reflux disease without esophagitis; H40.9 Unspecified glaucoma; N39.3 Stress incontinence (female) (male); K59.00 Constipation, unspecified; L71.9 Rosacea, unspecified; E78.5 Hyperlipidemia, unspecified; M19.91 Primary osteoarthritis, unspecified site; T45.515A Adverse effect of anticoagulants, initial encounter; G25.81 Restless legs syndrome; E03.9 Hypothyroidism, unspecified; E66.9 Obesity, unspecified; Z68.33 Body mass index [BMI] 33.0-33.9, adult; M20.009 Unspecified deformity of unspecified finger(s); Z99.81 Dependence on supplemental oxygen; Z79.83 Long term (current) use of bisphosphonates; Z79.01 Long term (current) use of anticoagulants; Z79.51 Long term (current) use of inhaled steroids; Z79.890 Hormone replacement therapy; Z79.891 Long term (current) use of opiate analgesic; Z79.899 Other long term (current) drug therapy; Z85.038 Personal history of other malignant neoplasm of large intestine; Z92.21 Personal history of antineoplastic chemotherapy; Z92.3 Personal history of irradiation; Z87.440 Personal history of urinary (tract) infections; Z87.891 Personal history of nicotine dependence; Z87.81 Personal history of (healed) traumatic fracture; Z86.73 Personal history of transient ischemic attack (TIA), and cerebral infarction without residual deficits; Z98.42 Cataract extraction status, left eye; Z98.41 Cataract extraction status, right eye; Z83.79 Family history of other diseases of the digestive system; Z88.5 Allergy status to narcotic agent; Z88.2 Allergy status to sulfonamides; Z81.1 Family history of alcohol abuse and dependence; Z82.49 Family history of ischemic heart disease and other diseases of the circulatory system
CPT/HCPCS: 36415; 43239; 45380; 45385; 71046; 80048; 80053; 82272; 83690; 83735; 83880; 84439; 84443; 84484; 85025; 86850; 86900; 86901; 86920; 88305; 93005; 94640; 94760; 96365; 96366; 96376; 99285

== ENCOUNTER 2018-09-26 07:55 | Inpatient (IN) | payer MEDICARE ==
[2018-09-26] MEDS ORDERED: IPRATROPIUM-ALBUTEROL 3 ML NEB INHALATION STA (08:37)
[2018-09-26] MEDS ORDERED: FUROSEMIDE 10 MG/ML 4 ML VIAL IV STA ×2 (08:38→13:08)
--- NOTE | 2018-09-26 08:41 | ED ---
SOB HPI - General Chief Complaint: Shortness of Breath Stated Complaint: Sob Time Seen by Provider: 09/26/18 08:00 Source: patient, family, RN notes reviewed Mode of arrival: wheelchair - History of Present Illness Initial Comments: This 82-year-old female with a history of COPD and CHF who started having difficulty with breathing last evening but he got worse this morning. She has exertional dyspnea and shortness of breath no fevers chills sweats or chest pain. She has had about an 8 pound weight gain over last 1-2 weeks per family members. No other modifying factors at this time. He was noted this morning she normally is on 2 L of oxygen at home and had to be dialed up to 6 L Feel better. MD Complaint: shortness of breath - Related Data Home Medications Medication Instructions Recorded Confirmed Alendronate Sodium [Fosamax] 70 mg PO SCHMITT 11/30/16 09/26/18 Citalopram Hydrobromide [CeleXA] 20 mg PO HS 11/30/16 09/26/18 Latanoprost [Xalatan 0.005%] 1 drop BOTH EYES HS 11/30/16 09/26/18 Potassium Chloride ER [K-Dur 10] 10 meq PO DAILY 11/30/16 09/26/18 Simvastatin [Zocor] 40 mg PO HS 11/30/16 09/26/18 Calcium Carbonate/Vitamin D3 1 tab PO DAILY 05/30/17 09/26/18 [Calcium 600-Vit D3 800 Tab] Multivitamins, Thera [Multivitamin 1 tab PO DAILY@1800 05/30/17 09/26/18 (formulary)] Vitamin E (Dl,Tocopheryl Acet) 400 unit PO DAILY@1800 05/30/17 09/26/18 [Vitamin E] fentaNYL 25MCG/HR PATCH [Duragesic 1 patch TRANSDERM Q72H 11/02/17 09/26/18 25MCG/HR] rOPINIRole HCL [Requip] 2 mg PO HS 11/02/17 09/26/18 ALPRAZolam [Xanax] 0.25 mg PO HS 01/08/18 09/26/18 Furosemide [Lasix] 40 mg PO DAILY 03/27/18 09/26/18 Ferrous Sulfate [Iron (65 MG 325 mg PO MOTUWETHFR 06/17/18 09/26/18 Elemental)] Apixaban [Eliquis] 5 mg PO BID 08/11/18 09/26/18 Ipratropium-Albuterol Nebulize 3 ml INHALATION RT-TID 08/11/18 09/26/18 [Duoneb 0.5 mg-3 mg/3 ml Soln] Sennosides-Docusate Sodium 1 tab PO DAILY 08/11/18 09/26/18 [Senokot-S] Amiodarone [Cordarone] 200 mg PO BID 09/05/18 09/26/18 HYDROcodone/APAP 10-325MG [Brooks 1 tab PO Q8HR 09/05/18 09/26/18 10-325] Previous Rx's Medication Instructions Recorded Budesonide/Formoterol Fumarate 2 puff INHALATION RT-BID #0 07/18/18 [Symbicort 160-4.5 Mcg Inhaler] Levothyroxine Sodium [Synthroid] 112 mcg PO DAILY@0630 #30 tab 09/10/18 Metoprolol Tartrate [Lopressor] 50 mg PO TID #90 tab 09/10/18 Omeprazole [PriLOSEC] 20 mg PO AC-BID #60 cap 09/10/18 Allergies Allergy/AdvReac Type Severity Reaction Status Date / Time codeine AdvReac Confusion Verified 09/26/18 08:32 sulfamethoxazole AdvReac Nausea & Verified 09/26/18 08:32 [From Bactrim] Vomiting trimethoprim [From Bactrim] AdvReac Nausea & Verified 09/26/18 08:32 Vomiting Review of Systems ROS Statement: Those systems with pertinent positive or pertinent negative responses have been documented in the HPI. ROS Other: All systems not noted in ROS Statement are negative. Past Medical History Past Medical History: Atrial Fibrillation, Asthma, Cancer, Heart Failure, CVA/ TIA, GERD/Reflux, Hyperlipidemia, Hypertension, Osteoarthritis (OA), Pneumonia, Thyroid Disorder, Vascular Disorder Additional Past Medical History / Comment(s): home 02 2 liters n/c , Murmur; constipation,Colon Ca 2001(has sx,chemo and radiation),rosacea,injury to rt hand / lost most of it. rls, glaucoma,pleurisy, sinus problems,uti, past falls(broke lt hip and R patella(had sx), uses a w/c when out side the home.pne vaccine-but pt not sure when she had it. 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 and hadgrafting done(donor site was abd), carpal tunnel, krista cataracts,colonoscopy/polypectomy, right knee surgery Past Anesthesia/Blood Transfusion Reactions: No Reported Reaction Past Psychological History: No Psychological Hx Reported Smoking Status: Former smoker Past Alcohol Use History: None Reported Past Drug Use History: None Reported - Past Family History Father Family Medical History: Liver Disease Additional Family Medical History / Comment(s): etoh abuse-cirrhosis of the liver Mother Additional Family Medical History / Comment(s): brain aneurysm General Exam - General Exam Comments Initial Comments: This is a well-developed well-nourished awake alert oriented 3 female Limitations: no limitations General appearance: alert, anxious, in distress Head exam: Present: atraumatic, normocephalic, normal inspection Eye exam: Present: normal appearance, PERRL, EOMI. Absent: scleral icterus, conjunctival injection, periorbital swelling ENT exam: Present: normal exam, mucous membranes moist Neck exam: Present: normal inspection. Absent: tenderness, meningismus, lymphadenopathy Respiratory exam: Present: wheezes, rales, decreased breath sounds. Absent: respiratory distress, rhonchi, stridor Cardiovascular Exam: Present: regular rate, normal rhythm, normal heart sounds. Absent: systolic murmur, diastolic murmur, rubs, gallop, clicks GI/Abdominal exam: Present: soft, normal bowel sounds. Absent: distended, tenderness, guarding, rebound, rigid Extremities exam: Present: normal inspection, full ROM, normal capillary refill. Absent: tenderness, pedal edema, joint swelling, calf tenderness Back exam: Present: normal inspection Neurological exam: Present: alert, oriented X3, CN II-XII intact Psychiatric exam: Present: normal affect, normal mood Skin exam: Present: warm, dry, intact, normal color. Absent: rash Course Vital Signs 09/26/18 09/26/18 09/26/18 08:00 09:35 09:44 Temperature 98.5 F Pulse Rate 66 66 68 Respiratory 22 Rate Blood Pressure 139/53 O2 Sat by Pulse 85 L Oximetry 09/26/18 10:47 Temperature Pulse Rate 64 Respiratory 18 Rate Blood Pressure 149/57 O2 Sat by Pulse 99 Oximetry - Reevaluation(s) Reevaluation #1: 09/26/18 13:07 Did discuss the findings with patient family members. Patient will be admitted Medical Decision Making - Medical Decision Making The patient will require blood transfusion the hemoglobin is below 7 to the complete report. Is also is some evidence of mild CHF. Patient be admitted no evidence of any bleeding patient require transfusion the past. - Lab Data Result diagrams: 09/26/18 10:11 09/26/18 10:11 Lab Results 09/26/18 09/26/18 09/26/18 Range/Units 10:11 10:11 10:11 WBC 5.8 (3.8-10.6) k/uL RBC 2.10 L (3.80-5.40) m/uL Hgb 6.2 L* D (11.4-16.0) gm/dL Hct 20.4 L (34.0-46.0) % MCV 97.0 D (80.0-100.0) fL MCH 29.3 (25.0-35.0) pg MCHC 30.2 L (31.0-37.0) g/dL RDW 21.2 H (11.5-15.5) % Plt Count 79 L (150-450) k/uL Neutrophils % Not Reportable Neutrophils % (Manual) 79 % Lymphocytes % Not Reportable Lymphocytes % (Manual) 12 % Monocytes % Not Reportable Monocytes % (Manual) 6 % Eosinophils % Not Reportable Eosinophils % (Manual) 2 % Basophils % Not Reportable Basophils % (Manual) 1 % Metamyelocytes % 1 % Neutrophils # Not Reportable Neutrophils # (Manual) 4.58 (1.3-7.7) k/uL Lymphocytes # Not Reportable Lymphocytes # (Manual) 0.70 L (1.0-4.8) k/uL Monocytes # Not Reportable Monocytes # (Manual) 0.35 (0-1.0) k/uL Eosinophils # Not Reportable Eosinophils # (Manual) 0.12 (0-0.7) k/uL Basophils # Not Reportable Basophils # (Manual) 0.06 (0-0.2) k/uL Metamyelocytes # (Man) 0.06 H (0) k/uL Nucleated RBCs 0 (0-0) /100 WBC Manual Slide Review Performed Toxic Granulation Present Polychromasia Present Hypochromasia Marked Poikilocytosis Slight Anisocytosis Moderate Macrocytosis Moderate PT (9.0-12.0) sec INR (<1.2) APTT (22.0-30.0) sec Sodium 135 L (137-145) mmol/L Potassium 4.8 (3.5-5.1) mmol/L Chloride 104 (98-107) mmol/L Carbon Dioxide 29 (22-30) mmol/L Anion Gap 2 mmol/L BUN 34 H (7-17) mg/dL Creatinine 1.18 H (0.52-1.04) mg/dL Est GFR (CKD-EPI)AfAm 50 (>60 ml/min/1.73 sqM) Est GFR (CKD-EPI)NonAf 44 (>60 ml/min/1.73 sqM) Glucose 94 (74-99) mg/dL Calcium 8.5 (8.4-10.2) mg/dL Magnesium 2.4 H (1.6-2.3) mg/dL Total Bilirubin 0.7 (0.2-1.3) mg/dL AST 32 (14-36) U/L ALT 32 (9-52) U/L Alkaline Phosphatase 84 (38-126) U/L Total Creatine Kinase <20 L (30-135) U/L CK-MB (CK-2) <0.2 (0.0-2.4) ng/mL CK-MB (CK-2) Rel Index Troponin I <0.012 (0.000-0.034) ng/mL NT-Pro-B Natriuret Pep pg/mL Total Protein 6.2 L (6.3-8.2) g/dL Albumin 3.3 L (3.5-5.0) g/dL 09/26/18 09/26/18 Range/Units 10:11 10:11 WBC (3.8-10.6) k/uL RBC (3.80-5.40) m/uL Hgb (11.4-16.0) gm/dL Hct (34.0-46.0) % MCV (80.0-100.0) fL MCH (25.0-35.0) pg MCHC (31.0-37.0) g/dL RDW (11.5-15.5) % Plt Count (150-450) k/uL Neutrophils % Neutrophils % (Manual) % Lymphocytes % Lymphocytes % (Manual) % Monocytes % Monocytes % (Manual) % Eosinophils % Eosinophils % (Manual) % Basophils % Basophils % (Manual) % Metamyelocytes % % Neutrophils # Neutrophils # (Manual) (1.3-7.7) k/uL Lymphocytes # Lymphocytes # (Manual) (1.0-4.8) k/uL Monocytes # Monocytes # (Manual) (0-1.0) k/uL Eosinophils # Eosinophils # (Manual) (0-0.7) k/uL Basophils # Basophils # (Manual) (0-0.2) k/uL Metamyelocytes # (Man) (0) k/uL Nucleated RBCs (0-0) /100 WBC Manual Slide Review Toxic Granulation Polychromasia Hypochromasia Poikilocytosis Anisocytosis Macrocytosis PT 11.1 (9.0-12.0) sec INR 1.2 H (<1.2) APTT 22.5 (22.0-30.0) sec Sodium (137-145) mmol/L Potassium (3.5-5.1) mmol/L Chloride (98-107) mmol/L Carbon Dioxide (22-30) mmol/L Anion Gap mmol/L BUN (7-17) mg/dL Creatinine (0.52-1.04) mg/dL Est GFR (CKD-EPI)AfAm (>60 ml/min/1.73 sqM) Est GFR (CKD-EPI)NonAf (>60 ml/min/1.73 sqM) Glucose (74-99) mg/dL Calcium (8.4-10.2) mg/dL Magnesium (1.6-2.3) mg/dL Total Bilirubin (0.2-1.3) mg/dL AST (14-36) U/L ALT (9-52) U/L Alkaline Phosphatase (38-126) U/L Total Creatine Kinase (30-135) U/L CK-MB (CK-2) (0.0-2.4) ng/mL CK-MB (CK-2) Rel Index Troponin I (0.000-0.034) ng/mL NT-Pro-B Natriuret Pep 1330 pg/mL Total Protein (6.3-8.2) g/dL Albumin (3.5-5.0) g/dL - EKG Data -: EKG Interpreted by Me EKG shows normal: sinus rhythm (Sinus rhythm rate 64. Interval 156 QRS duration 154 QT since QTC 42/497 the bundle-branch block pattern) - Radiology Data Radiology results: report reviewed (I did review the imaging and report is evidence of congestive failure with small pleural effusion please see complete report.), image reviewed Critical Care Time Critical Care Time: Yes Critical Care Time: 32 minutes of critical care time which includes initial presentation with history physical labs x-rays several reevaluation the patient response to therapy discuss with the patient family members discussion with the medicine physician admission orders review of old charting was available and documentation of the above Disposition Clinical Impression: Congestive heart failure (CHF), Anemia, Renal insufficiency syndrome Disposition: ADMITTED IP TO THIS [facility] Condition: Stable Referrals: Delano Maya MD [Primary Care Provider] - 1-2 days
--- NOTE | 2018-09-26 10:29 | XR ---
EXAMINATION TYPE: XR chest 2V DATE OF EXAM: 09/26/2018 COMPARISON: Chest x-ray September 05, 2018. HISTORY: Shortness of breath TECHNIQUE: Frontal and lateral views of the chest are obtained. FINDINGS: There is redemonstration of cardiomegaly with small amount of fluid in the major fissure s een on lateral view. There is suspected small right pleural effusion on lateral view with blunting o f posterior costophrenic angle. Mild increased interstitial markings felt present. No pneumothorax is seen bilaterally. The osseous structures remain demineralized. IMPRESSION: Correlate for CHF exacerbation as there is cardiomegaly with suspected mild central inter stitial edema and new small right pleural effusion.
[2018-09-26 10:52] LABS: Anisocytosis Moderate; HCT 20.4 % (34.0-46.0); Hypochromasia Marked; MCH 29.3 pg (25.0-35.0); MCHC 30.2 g/dL (31.0-37.0); Macrocytosis Moderate; Mean Platelet Volume 9.5; Platelet Count 79 k/uL (150-450); Poikilocytosis Slight; RDW 21.2 % (11.5-15.5); WBC 5.8 k/uL (3.8-10.6)
[2018-09-26 10:55] LABS: INR 1.2 (<1.2); Partial Thromboplastin Time 22.5 sec (22.0-30.0); Prothrombin Time 11.1 sec (9.0-12.0)
[2018-09-26 10:56] LABS: HGB 6.2 gm/dL (11.4-16.0)
[2018-09-26 10:57] LABS: Albumin 3.3 g/dL (3.5-5.0); Calcium 8.5 mg/dL (8.4-10.2); Magnesium 2.4 mg/dL (1.6-2.3); Potassium 4.8 mmol/L (3.5-5.1); Total Bilirubin 0.7 mg/dL (0.2-1.3); Total Protein 6.2 g/dL (6.3-8.2)
[2018-09-26 11:10] LABS: Creatine Kinase <20 U/L (30-135)
[2018-09-26 11:22] LABS: Creatine Kinase MB <0.2 ng/mL (0.0-2.4); Troponin I <0.012 ng/mL (0.000-0.034)
[2018-09-26 11:27] LABS: Toxic Granulation Present
[2018-09-26 11:28] LABS: Polychromasia Present
[2018-09-26 11:33] LABS: Basophils # (M) 0.06 k/uL (0-0.2); Eosinophils # (M) 0.12 k/uL (0-0.7); Metamyelocytes # (M) 0.06 k/uL (0); Metamyelocytes % 1 %; Monocytes # (M) 0.35 k/uL (0-1.0); Neutrophils # (M) 4.58 k/uL (1.3-7.7); Neutrophils % (M) 79 %; Nucleated Red Blood Cells 0 /100 WBC (0-0); Total Cells Counted 200
[2018-09-26 15:42] VITALS: BMI 32.9
[2018-09-26] MEDS: FERROUS SULFATE 325 MG TAB PO SCH (16:45)
[2018-09-26] MEDS: HYDROcodone/APAP 10-325MG 1 EACH TAB PO SCH ×2 (17:03→23:36)
[2018-09-26] MEDS: METOPROLOL TARTRATE 50 MG TAB PO SCH ×2 (17:03→21:37)
[2018-09-26] MEDS: MULTIVITAMINS, THERA 1 EACH TAB PO SCH (17:04)
[2018-09-26] MEDS ORDERED: APIXABAN 5 MG TAB PO SCH (21:00)
[2018-09-26] MEDS: ATORVASTATIN 20 MG TAB PO SCH (21:36)
[2018-09-26] MEDS: ALPRAZolam 0.25 MG TAB PO SCH (21:36)
[2018-09-26] MEDS: AMIODARONE 200 MG TAB PO SCH (21:36)
[2018-09-26] MEDS: CITALOPRAM HYDROBROMIDE 20 MG TAB PO SCH (21:36)
[2018-09-26] MEDS: LATANOPROST 0.005% OPHTH DROPS 2.5 ML BTL BOTH EYES SCH (21:54)
[2018-09-26] MEDS: SYMBICORT 160-4.5 MCG INHALER INHALATION SCH (22:17)
[2018-09-26] MEDS: IPRATROPIUM-ALBUTEROL 3 ML NEB INHALATION SCH (22:25)
--- NOTE | 2018-09-26 22:57 | HP ---
HISTORY AND PHYSICAL DATE OF ADMISSION AND SERVICE: 09/26/2018. PRESENTING COMPLAINT: Weak and tired. HISTORY OF PRESENTING COMPLAINT: This is a very pleasant 82-year-old patient who was discharged from the hospital not too long ago, about 2 weeks ago. Patient then had presented with GI bleed. Patient had an EGD by Dr. Frey and was found to have duodenitis and gastritis. Patient also had atrial fibrillation with rapid ventricular rate. Patient was also seen by Dr. Don Leslie from Cardiology. Initial hemoglobin was 6.5. Patient did get 2 units of blood, and when she left her hemoglobin was 8.5. By the time of discharge, patient was put back on her Eliquis. For the last 2 days patient at least noticed some dark stools, feeling weak, tired, short of breath. Patient's hemoglobin came back to be 6.2, and blood was ordered. No chest pain. No palpitations. REVIEW OF SYSTEMS: CONSTITUTIONAL: Weak and tired. HEENT: None. RESPIRATORY: Short of breath. CARDIOVASCULAR: None. GASTROINTESTINAL: As above. GENITOURINARY: None. MUSCULOSKELETAL: Pain in the joints. DERMATOLOGICAL: None. HEMATOLOGICAL: As above. LYMPHATICS: None. PSYCHIATRY: None. NEUROLOGICAL: Uses a walker. PAST MEDICAL HISTORY: 1. Asthma. 2. Heart failure. 3. Stroke. 4. GERD. 5. Hyperlipidemia. 6. Hypertension. 7. Osteoarthritis. 8. Hypothyroid. 9. Home oxygen 2 L. 10.Colon cancer in 2001, treated with chemo and radiation treatment. 11.Rosacea. 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 13.Glaucoma. 14.Urinary incontinence. Wears pads. 15.Uses a wheelchair outside the house and a walker at home. 16.Duodenitis. 17.Gastritis. PAST SURGICAL HISTORY: 1. Bowel resection. 2. Left hip IM nailing. 3. Right hand surgery. 4. Carpal tunnel. 5. Bilateral cataract surgery. 6. Colonoscopy. 7. Polypectomy. 8. Right knee surgery. SOCIAL HISTORY: Lives with her son and his , 2 grandchildren, home oxygen. Uses a walker and a shower chair. Patient smoked for 20 years; stopped in 1996. Smoked a pack and a half a day. Alcohol none. FAMILY HISTORY: Alcohol abuse and cirrhosis. HOME MEDICATIONS: 1. Requip 2 mg at bedtime. 2. Duragesic 25 patch every 72 hours. 3. Vitamin E 400 units p.o. daily. 4. Zocor 40 mg at bedtime. 5. Senokot S one tablet p.o. daily. 6. Potassium 10 mEq p.o. daily. 7. Prilosec 20 mg p.o. b.i.d. 8. Multivitamin 1 tablet p.o. daily. 9. Lopressor 50 mg p.o. t.i.d. 10.Synthroid 112 mcg p.o. daily. 11.Xalatan 0.005% one drop to both eyes at bedtime. 12.DuoNeb t.i.d. 13.[place] 10 one tablet p.o. q.8. 14.Lasix 40 mg p.o. daily. 15.Iron 325 p.o. Saturday through Saturday. 16.Celexa 20 mg at bedtime. 17.Calcium with vitamin D3 one tablet p.o. daily. 18.Symbicort 160/4.5 two puffs b.i.d. 19.Eliquis 5 mg p.o. b.i.d. 20.Cordarone 200 mg p.o. b.i.d. 21.Fosamax 70 mg p.o. on Sundays. 22.Xanax 0.25 p.o. at bedtime. ALLERGIES: 1. CODEINE. 2. BACTRIM. PHYSICAL EXAMINATION: VITAL SIGNS ON PRESENTATION: Temperature 98.5, pulse 63, respiration 22, blood pressure 139/53, pulse ox 85% on room air. GENERAL APPEARANCE: Well built; BMI 33. Sitting up, awake. EYES: Pupils equal. Conjunctivae pale. HEENT: External appearance of nose and ears normal. Oral cavity normal. NECK: JVD not raised. Mass not palpable. RESPIRATORY: Effort normal. LUNGS: Decreased breath sounds. CARDIOVASCULAR: First and second sounds normal. No edema. ABDOMEN: Soft, non-tender. Liver and spleen not palpable. LYMPHATIC: No lymph node palpable in neck or axillae. PSYCHIATRY: Alert and oriented x3. Mood and affect normal. NEUROLOGICAL: Pupils equal. Cranial nerves grossly intact. Power and sensation grossly intact. EXTREMITIES: Right upper extremity has a distal hand stump. INVESTIGATIONS: White count 5.8, hemoglobin 6.2. It was 8.5 on 09/10/2018. Platelets 79. Potassium 4.8, BUN 34, creatinine 1.18. ASSESSMENT: 1. Acute gastrointestinal bleed in a patient with known gastritis and duodenitis. The patient has already been on Eliquis causing acute severe blood loss anemia. 2. Acute severe blood loss anemia, symptomatic, from gastrointestinal bleed as above. 3. Persistent atrial fibrillation, for which patient had been on Eliquis. 4. Chronic congestive heart failure from diastolic dysfunction, ejection fraction 60% to 65%. 5. 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 6. Gastroesophageal reflux disease. 7. Hyperlipidemia. 8. Essential hypertension. 9. Primary osteoarthritis. 10.Hypothyroidism. 11.Chronic hypoxic respiratory failure, on 2 L oxygen at home. 12.History of colon cancer. 13.Rosacea. 14.Chronic urinary stress incontinence. 15.Obesity; body mass index 33. 16.Chronic obstructive pulmonary disease in an ex-smoker. 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 PLAN: At this point patient's Eliquis has been stopped, given that patient has had 2 episodes at least of bleeding. Patient is probably not a candidate for long-term anticoagulation. Patient at this point is also being transfused blood. Home medications are resumed. Will have Cardiology render their opinion of the same. Care was discussed with the patient. Questions were answered. Follow hemodynamically closely. MMODL / IJN: [id number] /
[2018-09-27] MEDS: LEVOTHYROXINE 112 MCG TAB PO SCH (05:38)
[2018-09-27] MEDS: IPRATROPIUM-ALBUTEROL 3 ML NEB INHALATION SCH ×3 (05:49→21:08)
[2018-09-27] MEDS: SYMBICORT 160-4.5 MCG INHALER INHALATION SCH ×2 (05:49→21:06)
[2018-09-27 07:24] LABS: Anisocytosis Moderate; Basophils % (A) 1 %; Eosinophils # (A) 0.2 k/uL (0-0.7); Eosinophils % (A) 3 %; HCT 22.4 % (34.0-46.0); Hypochromasia Marked; Lymphocytes # (A) 1.4 k/uL (1.0-4.8); Lymphocytes % (A) 28 %; MCH 29.3 pg (25.0-35.0); MCHC 30.6 g/dL (31.0-37.0); MCV 95.7 fL (80.0-100.0); Macrocytosis Moderate; Mean Platelet Volume 9.4; Monocytes # (A) 0.3 k/uL (0-1.0); Monocytes % (A) 7 %; Neutrophils # (A) 2.9 k/uL (1.3-7.7); Neutrophils % (A) 59 %; Poikilocytosis Marked; RBC 2.34 m/uL (3.80-5.40); RDW 21.6 % (11.5-15.5); WBC 4.9 k/uL (3.8-10.6)
[2018-09-27] MEDS ORDERED: PANTOPRAZOLE 40 MG TABLET PO SCH (07:30)
[2018-09-27 07:32] LABS: HGB 6.8 gm/dL (11.4-16.0); Platelet Count 76 k/uL (150-450)
[2018-09-27] MEDS: HYDROcodone/APAP 10-325MG 1 EACH TAB PO SCH ×3 (09:06→23:11)
[2018-09-27] MEDS: METOPROLOL TARTRATE 50 MG TAB PO SCH ×3 (09:07→22:25)
[2018-09-27] MEDS: AMIODARONE 200 MG TAB PO SCH ×2 (09:08→20:07)
[2018-09-27] MEDS: FUROSEMIDE 40 MG TAB PO SCH (09:08)
[2018-09-27] MEDS: POTASSIUM CHLORIDE ER 10 MEQ TAB.ER.PRT PO SCH (09:08)
[2018-09-27] MEDS: CALCIUM CARB-VIT D 500MG-200UN 1 EACH TAB PO SCH (09:08)
[2018-09-27] MEDS: SENNOSIDES-DOCUSATE SODIUM 1 EACH TAB PO SCH (09:10)
[2018-09-27] MEDS ORDERED: FUROSEMIDE 10 MG/ML 2 ML VIAL IV STA (14:10)
--- NOTE | 2018-09-27 14:12 | P.CRDCN ---
History of Present Illness Consult date: 09/27/18 History of present illness: This is a 82-year-old female with history of atrial fibrillation on anticoagulation therapy with Eliquis, who was admitted now again with complaints of GI bleeding and anemia. Patient is receiving blood transfusion at this time. She was admitted recently with similar problem where she required blood transfusions. She had evaluation by GI Department at the time who cleared her for anti-coagulation therapy. As patient is admitted to the GI bleeding, it appears that patient is not a candidate for anticoagulation therapy. I discussed with the patient about the possibility of watchman procedure and closure of the atrial appendage. Patient has to go on antiplatelet/anticoagulation therapy for about 6 weeks after the closure of the appendage. Patient wants to discuss with the family before deciding about the procedure. Meanwhile we'll continue the measures to control her GI bleeding and correct her anemia. She is slightly short of breath. Denies any chest pain. Her lungs show crepitations at both bases. I'm going to be given one dose of Lasix and watch her closely for CHF. Review of Systems As per the chart Past Medical History Past Medical History: Atrial Fibrillation, Asthma, Cancer, Heart Failure, CVA/ TIA, GERD/Reflux, Hyperlipidemia, Hypertension, Osteoarthritis (OA), Pneumonia, Thyroid Disorder, Vascular Disorder Additional Past Medical History / Comment(s): home 02 2 liters n/c , Murmur; constipation,Colon Ca 2001(has sx,chemo and radiation),rosacea,injury to rt hand / lost most of it. rls, glaucoma,pleurisy, sinus problems,uti, past falls(broke lt hip and R patella(had sx), uses a w/c when out side the home.pne vaccine-but pt not sure when she had it. 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 has home 02, cane/walker, shower chair . has critical care nurse practitioner to help with showers. Smoking Status: Former smoker Past Alcohol Use History: None Reported Additional Past Alcohol Use History / Comment(s): started smoking 1966,quit 1986 , smkoed 1.5 ppd Past Drug Use History: None Reported - Past Family History Father Family Medical History: Liver Disease Additional Family Medical History / Comment(s): etoh abuse-cirrhosis of the liver Mother Additional Family Medical History / Comment(s): brain aneurysm Medications and Allergies Home Medications Medication Instructions Recorded Confirmed Type Alendronate Sodium [Fosamax] 70 mg PO SCHMITT 11/30/16 09/26/18 History Citalopram Hydrobromide [CeleXA] 20 mg PO HS 11/30/16 09/26/18 History Latanoprost [Xalatan 0.005%] 1 drop BOTH EYES HS 11/30/16 09/26/18 History Potassium Chloride ER [K-Dur 10] 10 meq PO DAILY 11/30/16 09/26/18 History Simvastatin [Zocor] 40 mg PO HS 11/30/16 09/26/18 History Calcium Carbonate/Vitamin D3 1 tab PO DAILY 05/30/17 09/26/18 History [Calcium 600-Vit D3 800 Tab] Multivitamins, Thera [Multivitamin 1 tab PO DAILY@1800 05/30/17 09/26/18 History (formulary)] Vitamin E (Dl,Tocopheryl Acet) 400 unit PO DAILY@1800 05/30/17 09/26/18 History [Vitamin E] fentaNYL 25MCG/HR PATCH [Duragesic 1 patch TRANSDERM Q72H 11/02/17 09/26/18 History 25MCG/HR] rOPINIRole HCL [Requip] 2 mg PO HS 11/02/17 09/26/18 History ALPRAZolam [Xanax] 0.25 mg PO HS 01/08/18 09/26/18 History Furosemide [Lasix] 40 mg PO DAILY 03/27/18 09/26/18 History Ferrous Sulfate [Iron (65 MG 325 mg PO MOTUWETHFR 06/17/18 09/26/18 History Elemental)] Budesonide/Formoterol Fumarate 2 puff INHALATION RT-BID #0 07/18/18 09/26/18 Rx [Symbicort 160-4.5 Mcg Inhaler] Apixaban [Eliquis] 5 mg PO BID 08/11/18 09/26/18 History Ipratropium-Albuterol Nebulize 3 ml INHALATION RT-TID 08/11/18 09/26/18 History [Duoneb 0.5 mg-3 mg/3 ml Soln] Sennosides-Docusate Sodium 1 tab PO DAILY 08/11/18 09/26/18 History [Senokot-S] Amiodarone [Cordarone] 200 mg PO BID 09/05/18 09/26/18 History HYDROcodone/APAP 10-325MG [[place] 1 tab PO Q8HR 09/05/18 09/26/18 History 10-325] Levothyroxine Sodium [Synthroid] 112 mcg PO DAILY@0630 #30 tab 09/10/18 Rx Metoprolol Tartrate [Lopressor] 50 mg PO TID #90 tab 09/10/18 09/26/18 Rx Omeprazole [PriLOSEC] 20 mg PO AC-BID #60 cap 09/10/18 09/26/18 Rx Allergies Allergy/AdvReac Type Severity Reaction Status Date / Time codeine AdvReac Confusion Verified 09/26/18 08:32 sulfamethoxazole AdvReac Nausea & Verified 09/26/18 08:32 [From Bactrim] Vomiting trimethoprim [From Bactrim] AdvReac Nausea & Verified 09/26/18 08:32 Vomiting Physical Exam Vitals: Vital Signs Temp Pulse Pulse Resp BP BP Pulse Ox 09/27/18 11:52 80 09/27/18 11:42 76 09/27/18 06:01 72 09/27/18 05:51 70 09/27/18 04:25 97.8 F 54 L 16 119/78 95 09/26/18 22:44 98.5 F 56 L 56 L 16 140/65 140/65 95 09/26/18 22:40 68 09/26/18 22:27 65 09/26/18 21:00 98.1 F 61 16 129/56 95 09/26/18 20:27 98.3 F 57 L 14 125/76 98 09/26/18 19:57 98.2 F 57 L 15 128/58 97 09/26/18 19:47 98.4 F 59 L 14 145/62 96 11/16/18 15:47 98.3 F 63 18 145/67 98 09/26/18 14:17 63 16 116/45 100 Intake and Output 09/26/18 09/27/18 09/27/18 22:59 06:59 14:59 Intake Total 1160 540 Balance 1160 540 Intake: Oral 540 540 Blood Product 620 Rc As-1 Unit 310 [id number] Other: Voiding Method Bedside Commode Bedside Commode Bedside Commode # Voids 2 2 # Bowel Movements 1 Weight 87.09 kg 85.3 kg GENERAL EXAM: Patient is alert and oriented and doesn't appear to be in any acute distress HEENT: Normocephalic. Normal reaction of pupils, equal size, normal range of extraocular motion. No erythema or exudates in the throat. NECK: No masses, no nuchal rigidity. CHEST: No chest wall deformity. LUNGS: Rales at both bases HEART: S1 and S2 normal with no audible mumurs or gallops. Regular rhythm, femorals equal on both sides.. ABDOMEN: No hepatosplenomegaly, normal bowel sounds, no guarding or rigidity. SKIN: No rashes CENTRAL NERVOUS SYSTEM: No focal deficits. EXTREMITIES: No cyanosis, clubbing or edema. Results 09/27/18 06:17 09/26/18 10:11 CBC 09/27/18 Range/Units 06:17 WBC 4.9 (3.8-10.6) k/uL RBC 2.34 L (3.80-5.40) m/uL Hgb 6.8 L* (11.4-16.0) gm/dL Hct 22.4 L (34.0-46.0) % Plt Count 76 L (150-450) k/uL Current Medications Generic Name Dose Route Start Last Admin Trade Name Freq PRN Reason Stop Dose Admin Hydrocodone Bitart/Acetaminophen 1 each 09/26/18 16:00 09/27/18 09:06 [place] 10 PO Not Given Q8HR ANGELA Albuterol/Ipratropium 3 ml 09/26/18 20:00 09/27/18 11:39 Duoneb 0.5 Mg-3 Mg/3 Ml Soln INHALATION 3 ml RT-TID ANGELA Administration Alprazolam 0.25 mg 09/26/18 21:00 09/26/18 21:36 Xanax PO 0.25 mg HS ANGELA Administration Amiodarone HCl 200 mg 09/26/18 21:00 09/27/18 09:08 Cordarone PO 200 mg BID ANGELA Administration Atorvastatin Calcium 20 mg 09/26/18 21:00 09/26/18 21:36 Lipitor PO 20 mg HS ANGELA Administration Budesonide/Formoterol Fumarate 2 puff 09/26/18 20:00 09/27/18 05:49 Symbicort 160-4.5 Mcg Inhaler INHALATION 2 puff RT-BID ANGELA Administration Calcium Carbonate 1 each 09/27/18 12:00 09/27/18 09:08 [place]scal 500+D PO 1 each DAILY@1200 ANGELA Administration Citalopram Hydrobromide 20 mg 09/26/18 21:00 09/26/18 21:36 Celexa PO 20 mg HS ANGELA Administration Fentanyl 1 patch 09/26/18 16:00 09/26/18 16:45 Duragesic 25mcg/Hr Patch TRANSDERM 1 patch Q72H ANGELA Administration Ferrous Sulfate 325 mg 09/26/18 14:30 09/26/18 16:45 Feosol PO 325 mg MoTuWeThFr@1200 ANGELA Administration Furosemide 40 mg 09/27/18 09:00 09/27/18 09:08 Lasix PO 40 mg DAILY ANGELA Administration Furosemide 20 mg 09/27/18 14:05 Lasix IV 09/27/18 14:06 ONCE STA Latanoprost 1 drops 09/26/18 21:00 09/26/18 21:54 Xalatan 0.005% BOTH EYES 1 drops HS [facility] Administration Levothyroxine Sodium 112 mcg 09/27/18 06:30 09/27/18 05:38 Synthroid PO 112 mcg DAILY@0630 [facility] Administration Metoprolol Tartrate 50 mg 09/26/18 16:00 09/27/18 09:07 Lopressor PO 50 mg TID [facility] Administration Multivitamins 1 each 09/26/18 18:00 09/26/18 17:04 Theragran PO 1 each DAILY@1800 [facility] Administration Non-Formulary Medication 70 mg 09/28/18 12:00 Alendronate Sodium [Fosamax] PO SCHMITT [facility] Pantoprazole Sodium 40 mg 09/27/18 07:30 09/27/18 09:07 Protonix PO 40 mg AC-BRKFST ANGELA Administration Potassium Chloride 10 meq 09/27/18 09:00 09/27/18 09:08 K-Dur 10 PO 10 meq DAILY ANGELA Administration Ropinirole HCl 2 mg 09/26/18 21:00 09/26/18 21:37 Requip PO 2 mg HS ANGELA Administration Senna/Docusate Sodium 1 each 09/27/18 09:00 09/27/18 09:10 Senokot-S PO 1 each DAILY ANGELA Administration Intake and Output 09/26/18 09/27/18 09/27/18 22:59 06:59 14:59 Intake Total 1160 540 Balance 1160 540 Intake: Oral 540 540 Blood Product 620 Rc As-1 Unit 310 [id number] Other: Voiding Method Bedside Commode Bedside Commode Bedside Commode # Voids 2 2 # Bowel Movements 1 Weight 87.09 kg 85.3 kg 09/27/18 06:17 09/26/18 10:11 EKG Interpretations (text) Atrial fibrillation Assessment and Plan (1) Anemia Current Visit: Yes Status: Acute Code(s): D64.9 - ANEMIA, UNSPECIFIED SNOMED Code(s): 274621606 (2) Renal insufficiency syndrome Current Visit: Yes Status: Acute Code(s): N28.9 - DISORDER OF KIDNEY AND URETER, UNSPECIFIED SNOMED Code(s): 767276573 (3) Atrial fibrillation Current Visit: No Status: Acute Code(s): I48.91 - UNSPECIFIED ATRIAL FIBRILLATION SNOMED Code(s): 66921861 (4) Hyperlipidemia Current Visit: No Status: Acute Code(s): E78.5 - HYPERLIPIDEMIA, UNSPECIFIED SNOMED Code(s): 60096877 (5) Hypertension Current Visit: No Status: Acute Code(s): I10 - ESSENTIAL (PRIMARY) HYPERTENSION SNOMED Code(s): 63958642 (6) Hypothyroidism Current Visit: No Status: Acute Code(s): E03.9 - HYPOTHYROIDISM, UNSPECIFIED SNOMED Code(s): 67057664 Plan: Continue with blood transfusion. IV Lasix. Hold on anti-cognition therapy. If patient and family are agreeable, patient may be considered for watchman procedure
[2018-09-27] MEDS: MULTIVITAMINS, THERA 1 EACH TAB PO SCH (17:22)
[2018-09-27] MEDS: ALPRAZolam 0.25 MG TAB PO SCH (20:06)
[2018-09-27] MEDS: ATORVASTATIN 20 MG TAB PO SCH (20:06)
[2018-09-27] MEDS: CITALOPRAM HYDROBROMIDE 20 MG TAB PO SCH (20:07)
[2018-09-27] MEDS: LATANOPROST 0.005% OPHTH DROPS 2.5 ML BTL BOTH EYES SCH (20:08)
[2018-09-27] MEDS: PANTOPRAZOLE 40 MG TABLET PO SCH (22:25)
--- NOTE | 2018-09-27 22:46 | PN ---
PROGRESS NOTE DATE OF SERVICE: 09/27/2018. PRESENTING COMPLAINT: Black stools. INTERVAL HISTORY: This patient recently with GI bleed from anticoagulation, presented yet again with GI bleed. Did get a unit of blood, hemoglobin still low. Still having black stools. I did order another unit of blood. The patient continues to feel weak and tired, though she ate better and did tolerate some diet. REVIEW OF SYSTEMS: Done for constitutional, cardiovascular, GI, pulmonary; relevant findings as above. CURRENT MEDICATIONS: Reviewed, include Protonix. PHYSICAL EXAMINATION: Temperature 97.7, pulse 55, respirations 18, blood pressure 150/65, pulse 95 percent. GENERAL APPEARANCE: Sitting up on a chair, tired. EYES: Pupil equal. Conjunctiva pale. HEENT: External appearance of nose and ears normal. Oral cavity normal. NECK: JVD not raised. Mass not palpable. Respiratory effort normal. LUNGS: Decreased breath sounds., CARDIOVASCULAR: 1st and 2nd heart sounds. No edema. ABDOMEN: Soft, nontender. Liver and spleen not palpable. PSYCHIATRY: Alert and oriented x3. Mood and affect normal. INVESTIGATIONS: White count 4.9, hemoglobin 6.8, platelets 76,000. ASSESSMENT: 1. Acute GI bleed in a patient known gastroduodenitis, has been on Eliquis, causing acute severe blood loss anemia. 2. Acute severe blood loss anemia symptomatic from GI bleed. Did get a unit of blood yesterday. We will get another unit of blood. 3. Persistent atrial fibrillation for which the patient was on Eliquis, now held. 4. Chronic congestive heart failure from diastolic dysfunction. Ejection fraction 60% to 65%. 5. 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 6. Gastroesophageal reflux disease. 7. Hyperlipidemia. 8. Essential hypertension. 9. Primary osteoarthritis. 10.Hypothyroidism. 11.Chronic hypoxic respiratory failure on 2 L oxygen at home. 12.History of colon cancer. 13.Rosacea. 14.Chronic urinary stress incontinence. 15.Obesity; BMI 33. 16.Chronic obstructive pulmonary disease in an ex-smoker. 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 PLAN: Will give another unit of blood today. The patient probably is not a candidate for anticoagulation anymore. We will increase patient's PPI to 40 mg twice a day. Will follow. MMODL / IJN: [id number] /
[2018-09-28] MEDS: LEVOTHYROXINE 112 MCG TAB PO SCH (06:49)
[2018-09-28] MEDS: IPRATROPIUM-ALBUTEROL 3 ML NEB INHALATION SCH ×3 (06:59→20:48)
[2018-09-28] MEDS: SYMBICORT 160-4.5 MCG INHALER INHALATION SCH ×2 (06:59→20:48)
[2018-09-28 07:21] LABS: Anisocytosis Moderate; Basophils % (A) 1 %; Eosinophils # (A) 0.2 k/uL (0-0.7); Eosinophils % (A) 4 %; HCT 24.8 % (34.0-46.0); HGB 7.7 gm/dL (11.4-16.0); Hypochromasia Marked; Lymphocytes # (A) 1.1 k/uL (1.0-4.8); Lymphocytes % (A) 25 %; MCH 29.6 pg (25.0-35.0); MCHC 31.2 g/dL (31.0-37.0); MCV 94.6 fL (80.0-100.0); Macrocytosis Slight; Mean Platelet Volume 9.6; Monocytes # (A) 0.3 k/uL (0-1.0); Monocytes % (A) 7 %; Neutrophils # (A) 2.8 k/uL (1.3-7.7); Neutrophils % (A) 61 %; Poikilocytosis Marked; RBC 2.62 m/uL (3.80-5.40); WBC 4.6 k/uL (3.8-10.6)
[2018-09-28] MEDS: HYDROcodone/APAP 10-325MG 1 EACH TAB PO SCH ×2 (08:28→17:32)
[2018-09-28] MEDS: FUROSEMIDE 40 MG TAB PO SCH (08:32)
[2018-09-28] MEDS: AMIODARONE 200 MG TAB PO SCH ×2 (08:32→20:18)
[2018-09-28] MEDS: METOPROLOL TARTRATE 50 MG TAB PO SCH ×3 (08:32→20:18)
[2018-09-28] MEDS: PANTOPRAZOLE 40 MG TABLET PO SCH ×2 (08:32→17:34)
[2018-09-28] MEDS: POTASSIUM CHLORIDE ER 10 MEQ TAB.ER.PRT PO SCH (08:32)
[2018-09-28] MEDS: CALCIUM CARB-VIT D 500MG-200UN 1 EACH TAB PO SCH (08:34)
[2018-09-28] MEDS: SENNOSIDES-DOCUSATE SODIUM 1 EACH TAB PO SCH (08:34)
[2018-09-28 10:37] LABS: Platelet Count 71 k/uL (150-450)
[2018-09-28] MEDS ORDERED: NON-FORMULARY DRUG (Alendronate Sodium [Fosamax] 70 MG) PO SCH (12:00)
[2018-09-28] MEDS ORDERED: FUROSEMIDE 10 MG/ML 4 ML VIAL IV STA (12:19)
[2018-09-28] MEDS: MULTIVITAMINS, THERA 1 EACH TAB PO SCH (17:34)
[2018-09-28] MEDS: LATANOPROST 0.005% OPHTH DROPS 2.5 ML BTL BOTH EYES SCH (20:18)
[2018-09-28] MEDS: CITALOPRAM HYDROBROMIDE 20 MG TAB PO SCH (20:18)
[2018-09-28] MEDS: ATORVASTATIN 20 MG TAB PO SCH (20:18)
[2018-09-28] MEDS: ALPRAZolam 0.25 MG TAB PO SCH (20:20)
--- NOTE | 2018-09-28 23:47 | PN ---
PROGRESS NOTE DATE OF SERVICE: 09/28/2018. INTERVAL HISTORY: This patient was recently in the hospital with GI bleed from anticoagulation, went back on Eliquis, presented with GI bleed yet again. The patient did get 2 units of blood. Still having some dark stool, though feeling a bit better and stronger now. REVIEW OF SYSTEMS: Done for constitutional, cardiovascular, GI, pulmonary; relevant findings as above. The patient is slightly short of breath. CURRENT MEDICATIONS: Reviewed. PHYSICAL EXAMINATION: On examination, temperature 98, pulse 73, respirations 16, blood pressure 130/65, pulse ox 98% on nasal cannula. GENERAL APPEARANCE: Sitting up in bed, awake. EYES: Pupils equal. Conjunctivae pale. HEENT: External appearance of nose and ears normal. Oral cavity normal. NECK: JVD unable to assess. Mass not palpable. LUNGS: Decreased breath sounds. Some basal crackles. CARDIOVASCULAR: First and second heart sounds normal. Minimal edema. ABDOMEN: Soft, nontender. Liver and spleen not palpable. PSYCHIATRY: Alert and oriented x3. Mood and affect normal. INVESTIGATIONS: White count 7.7, platelets 71,000. ASSESSMENT: 1. Acute GI bleed in a patient with known gastroduodenitis. Has been on Eliquis, causing acute blood loss anemia, now discontinued. 2. Acute blood loss anemia, symptomatic from GI bleed, did get a total of 2 units of blood. 3. Persistent atrial fibrillation. The patient was on Eliquis. 4. Chronic congestive heart failure from diastolic dysfunction. EF 60% to 65%. 5. 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 6. Gastroesophageal reflux disease. 7. Hyperlipidemia. 8. Essential hypertension. 9. Primary osteoarthritis. 10.Hypothyroidism. 11.Chronic hypoxic respiratory failure on 2 L oxygen at home. 12.History of colon cancer. 13.Rosacea. 14.Chronic urinary stress incontinence. 15.Obesity; BMI 33. 16.Chronic obstructive pulmonary disease in an ex-smoker. 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 18.Possibly acute congestive heart failure exacerbation from patient getting 2 units of blood. PLAN: Will give patient IV Lasix today. Repeat hemoglobin tomorrow. Care was discussed with the patient. MMODL / IJN: [id number] /
[2018-09-29] MEDS: HYDROcodone/APAP 10-325MG 1 EACH TAB PO SCH ×3 (00:12→16:08)
--- NOTE | 2018-09-29 02:38 | P.CONS ---
History of Present Illness - Reason for Consult Consult date: 09/27/18 Anemia, dark stools. - History of Present Illness The patient is an 83-year-old female who was admitted through the emergency room because of weakness and shortness of breath as well as dark stools over a few days duration. The patient was found to have a hemoglobin of 6.2. The patient was hospitalized last month for symptomatic anemia. She had an upper endoscopy and colonoscopy that revealed hiatal hernia, gastritis and duodenitis and had biopsies as well as cold snare polypectomy for sigmoid, transverse and descending colon polyps. She also had mild scattered diverticulosis. Her hemoglobin on discharge was 8.5. She was cleared at that time to resume her eliquis for atrial fibrillation. Review of Systems Constitutional: Denies fever, chills, sweats, weight gain, or loss. HEENT: Negative for migraines, blurred vision or loss, earaches, drainage, tinnitus, oral mucosal lesions, dysphagia, or odynophagia. CARDIAC: Negative for chest pain, arrhythmias, or palpitation. RESPIRATORY: Denies hemoptysis, cough, or sputum production. GI: See HPI for pertinent findings. : Negative for hematuria, urgency, frequency, polyuria, or dysuria. MUSCULOSKELETAL: Negative for muscle aches, swelling, arthritis, and arthralgias. NEUROLOGIC: Negative for stroke or TIA. ENDOCRINE: Negative for polyuria or polydypsia. SKIN: Negative for rash or itching. PSYCHIATRIC: No history for depression and anxiety. Past Medical History Past Medical History: Atrial Fibrillation, Asthma, Cancer, Heart Failure, CVA/ TIA, GERD/Reflux, Hyperlipidemia, Hypertension, Osteoarthritis (OA), Pneumonia, Thyroid Disorder, Vascular Disorder Additional Past Medical History / Comment(s): home 02 2 liters n/c , Murmur; constipation,Colon Ca 2001(has sx,chemo and radiation),rosacea,injury to rt hand / lost most of it. rls, glaucoma,pleurisy, sinus problems,uti, past falls(broke lt hip and R patella(had sx), uses a w/c when out side the home.pne vaccine-but pt not sure when she had it. 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 has home 02, cane/walker, shower chair . 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 Smoking Status: Former smoker Past Alcohol Use History: None Reported Additional Past Alcohol Use History / Comment(s): started smoking 1966,quit 1986 , smkoed 1.5 ppd Past Drug Use History: None Reported - Past Family History Father Family Medical History: Liver Disease Additional Family Medical History / Comment(s): etoh abuse-cirrhosis of the liver Mother Additional Family Medical History / Comment(s): brain aneurysm Medications and Allergies Home Medications Medication Instructions Recorded Confirmed Type Alendronate Sodium [Fosamax] 70 mg PO SCHMITT 11/30/16 09/26/18 History Citalopram Hydrobromide [CeleXA] 20 mg PO HS 11/30/16 09/26/18 History Latanoprost [Xalatan 0.005%] 1 drop BOTH EYES HS 11/30/16 09/26/18 History Potassium Chloride ER [K-Dur 10] 10 meq PO DAILY 11/30/16 09/26/18 History Simvastatin [Zocor] 40 mg PO HS 11/30/16 09/26/18 History Calcium Carbonate/Vitamin D3 1 tab PO DAILY 05/30/17 09/26/18 History [Calcium 600-Vit D3 800 Tab] Multivitamins, Thera [Multivitamin 1 tab PO DAILY@1800 05/30/17 09/26/18 History (formulary)] Vitamin E (Dl,Tocopheryl Acet) 400 unit PO DAILY@1800 05/30/17 09/26/18 History [Vitamin E] fentaNYL 25MCG/HR PATCH [Duragesic 1 patch TRANSDERM Q72H 11/02/17 09/26/18 History 25MCG/HR] rOPINIRole HCL [Requip] 2 mg PO HS 11/02/17 09/26/18 History ALPRAZolam [Xanax] 0.25 mg PO HS 01/08/18 09/26/18 History Furosemide [Lasix] 40 mg PO DAILY 03/27/18 09/26/18 History Ferrous Sulfate [Iron (65 MG 325 mg PO MOTUWETHFR 06/17/18 09/26/18 History Elemental)] Budesonide/Formoterol Fumarate 2 puff INHALATION RT-BID #0 07/18/18 09/26/18 Rx [Symbicort 160-4.5 Mcg Inhaler] Apixaban [Eliquis] 5 mg PO BID 08/11/18 09/26/18 History Ipratropium-Albuterol Nebulize 3 ml INHALATION RT-TID 08/11/18 09/26/18 History [Duoneb 0.5 mg-3 mg/3 ml Soln] Sennosides-Docusate Sodium 1 tab PO DAILY 08/11/18 09/26/18 History [Senokot-S] Amiodarone [Cordarone] 200 mg PO BID 09/05/18 09/26/18 History HYDROcodone/APAP 10-325MG [[place] 1 tab PO Q8HR 09/05/18 09/26/18 History 10-325] Levothyroxine Sodium [Synthroid] 112 mcg PO DAILY@0630 #30 tab 09/10/18 Rx Metoprolol Tartrate [Lopressor] 50 mg PO TID #90 tab 09/10/18 09/26/18 Rx Omeprazole [PriLOSEC] 20 mg PO AC-BID #60 cap 09/10/18 09/26/18 Rx Allergies Allergy/AdvReac Type Severity Reaction Status Date / Time codeine AdvReac Confusion Verified 09/26/18 08:32 sulfamethoxazole AdvReac Nausea & Verified 09/26/18 08:32 [From Bactrim] Vomiting trimethoprim [From Bactrim] AdvReac Nausea & Verified 09/26/18 08:32 Vomiting Physical Exam Vitals: Vital Signs Temp Pulse Pulse Resp BP BP Pulse Ox 09/27/18 15:12 97.7 F 55 L 16 150/65 98 09/27/18 14:42 97.9 F 54 L 14 159/69 97 09/27/18 14:32 97.9 F 55 L 14 127/58 98 09/27/18 13:00 98 F 58 L 18 121/68 96 09/27/18 11:52 80 09/27/18 11:42 76 09/27/18 06:01 72 09/27/18 05:51 70 09/27/18 04:25 97.8 F 54 L 16 119/78 95 09/26/18 22:44 98.5 F 56 L 56 L 16 140/65 140/65 95 09/26/18 22:40 68 09/26/18 22:27 65 09/26/18 21:00 98.1 F 61 16 129/56 95 09/26/18 20:27 98.3 F 57 L 14 125/76 98 09/26/18 19:57 98.2 F 57 L 15 128/58 97 09/26/18 19:47 98.4 F 59 L 14 145/62 96 09/26/18 15:47 98.3 F 63 18 145/67 98 Intake and Output 09/27/18 09/27/18 09/27/18 06:59 14:59 22:59 Intake Total 540 0 Balance 540 0 Intake: Oral 540 Blood Product 0 Rc As-3 Unit 0 [id number] Other: Voiding Method Bedside Commode Bedside Commode # Voids 2 3 Weight 85.3 kg General Appearance: The patient is alert, oriented, in no acute distress. HENT: Head is normocephalic and atraumatic. Pupils are equal and reactive. Oropharynx is clear without lesions. Neck: Supple without lymphadenopathy. Trachea midline. Heart: S1 S2. Irregular rhythm. Lungs: No crackles or wheezes are heard. Clear to auscultation. Abdomen: Soft, nontender, nondistended with bowel sounds present. No peritoneal signs. No palpable organomegaly or masses. Extremities: No clubbing, cyanosis or edema. Radial and pedal pulses are 2/4 bilaterally. Neurological: No focal deficits. Strength and sensation are grossly intact. Results CBC & Chem 7: 09/28/18 06:08 09/26/18 10:11 Labs: Abnormal Lab Results - Last 24 Hours (Table) 09/26/18 09/26/18 09/27/18 Range/Units 10:40 17:56 06:17 RBC 2.34 L (3.80-5.40) m/uL Hgb 6.8 L* (11.4-16.0) gm/dL Hct 22.4 L (34.0-46.0) % MCHC 30.6 L (31.0-37.0) g/dL RDW 21.6 H (11.5-15.5) % Plt Count 76 L (150-450) k/uL Stool Occult Blood Positive H (Negative) Crossmatch See Detail Assessment and Plan Assessment: Recurrent GI bleeding and symptomatic anemia while on antiplatelet therapy for atrial fibrillation. Plan: I agree with your current management. Since she had recent endoscopic workup including polypectomy, will keep in mind the possibility of recurrent GI bleed from the stomach or the large intestine. A small bowel source should be considered and consideration will be made for capsule endoscopy as well.
[2018-09-29] MEDS: LEVOTHYROXINE 112 MCG TAB PO SCH (06:32)
[2018-09-29 07:29] LABS: Anisocytosis Moderate; Basophils % (A) 1 %; Eosinophils # (A) 0.2 k/uL (0-0.7); Eosinophils % (A) 3 %; HGB 8.1 gm/dL (11.4-16.0); Hypochromasia Marked; Lymphocytes # (A) 1.2 k/uL (1.0-4.8); Lymphocytes % (A) 26 %; MCH 29.6 pg (25.0-35.0); MCHC 31.2 g/dL (31.0-37.0); MCV 94.7 fL (80.0-100.0); Macrocytosis Slight; Mean Platelet Volume 9.5; Monocytes # (A) 0.4 k/uL (0-1.0); Monocytes % (A) 8 %; Neutrophils # (A) 2.7 k/uL (1.3-7.7); Neutrophils % (A) 60 %; Poikilocytosis Moderate; RBC 2.75 m/uL (3.80-5.40); RDW 20.8 % (11.5-15.5); WBC 4.5 k/uL (3.8-10.6)
[2018-09-29 07:36] LABS: Platelet Count 81 k/uL (150-450)
[2018-09-29 08:07] LABS: Calcium 8.8 mg/dL (8.4-10.2); Potassium 5.1 mmol/L (3.5-5.1)
[2018-09-29] MEDS: FUROSEMIDE 40 MG TAB PO SCH (08:13)
[2018-09-29] MEDS: AMIODARONE 200 MG TAB PO SCH ×2 (08:13→21:37)
[2018-09-29] MEDS: SENNOSIDES-DOCUSATE SODIUM 1 EACH TAB PO SCH ×2 (08:13→08:16)
[2018-09-29] MEDS: PANTOPRAZOLE 40 MG TABLET PO SCH ×2 (08:13→17:27)
[2018-09-29] MEDS: METOPROLOL TARTRATE 50 MG TAB PO SCH ×3 (08:13→21:38)
[2018-09-29] MEDS: POTASSIUM CHLORIDE ER 10 MEQ TAB.ER.PRT PO SCH (08:13)
[2018-09-29] MEDS: IPRATROPIUM-ALBUTEROL 3 ML NEB INHALATION SCH ×3 (08:35→19:42)
[2018-09-29] MEDS: SYMBICORT 160-4.5 MCG INHALER INHALATION SCH ×2 (08:35→19:42)
[2018-09-29 09:22] LABS: Toxic Granulation Present
--- NOTE | 2018-09-29 09:27 | P.PN ---
Subjective Progress Note Date: 09/29/18 Principal diagnosis: Paroxysmal atrial fibrillation This is a pleasant 81-year-old female patient who was admitted to the hospital with GI bleeding. This is her second admission. The patient does have paroxysmal atrial fibrillation and she was receiving oral anticoagulation which was held. The hemoglobin this morning is 8.1. When she presented to the hospital her hemoglobin was around 6 and she received blood. We did talk to the patient regarding the left atrial appendage closure device and the patient would like to talk to her family. Meanwhile the patient is asymptomatic at this point from the cardiovascular standpoint of view. Objective - Vital Signs Vital signs: Vital Signs Temp 98.1 F 09/29/18 05:00 Pulse 67 09/29/18 08:47 Resp 18 09/29/18 05:00 BP 146/64 09/29/18 05:00 Pulse Ox 96 09/29/18 05:00 Intake & Output 09/28/18 09/29/18 09/29/18 18:59 06:59 18:59 Weight 82.5 kg Other: Voiding Method Bedside Commode Bedside Commode # Voids 6 2 # Bowel Movements 1 - Constitutional General appearance: Present: no acute distress - Respiratory Respiratory: bilateral: CTA - Cardiovascular Rhythm: regular Heart sounds: normal: S1, S2 Abnormal Heart Sounds: Present: systolic murmur - Labs CBC & Chem 7: 09/29/18 06:57 09/29/18 06:57 Labs: Abnormal Lab Results - Last 24 Hours (Table) 09/28/18 09/29/18 09/29/18 Range/Units 06:08 06:57 06:57 RBC 2.62 L 2.75 L (3.80-5.40) m/uL Hgb 7.7 L 8.1 L (11.4-16.0) gm/dL Hct 24.8 L 26.0 L (34.0-46.0) % RDW 21.0 H 20.8 H (11.5-15.5) % Plt Count 71 L 81 L (150-450) k/uL BUN 33 H (7-17) mg/dL Creatinine 1.22 H (0.52-1.04) mg/dL Assessment and Plan Assessment: Assessment #1.successful atrial fibrillation. The patient is in sinus rhythm #2 GI bleeding #3 blood loss anemia Plan #1 continue holding the oral anticoagulation #2 possible left atrial appendage closure device down the line #3 the patient to remain asymptomatic at this point.
[2018-09-29] MEDS: FERROUS SULFATE 325 MG TAB PO SCH (12:15)
[2018-09-29] MEDS: CALCIUM CARB-VIT D 500MG-200UN 1 EACH TAB PO SCH (12:15)
[2018-09-29] MEDS: MULTIVITAMINS, THERA 1 EACH TAB PO SCH (17:27)
[2018-09-29] MEDS: ALPRAZolam 0.25 MG TAB PO SCH (21:37)
[2018-09-29] MEDS: CITALOPRAM HYDROBROMIDE 20 MG TAB PO SCH (21:38)
[2018-09-29] MEDS: ATORVASTATIN 20 MG TAB PO SCH (21:38)
[2018-09-29] MEDS: LATANOPROST 0.005% OPHTH DROPS 2.5 ML BTL BOTH EYES SCH (21:38)
[2018-09-30] MEDS: HYDROcodone/APAP 10-325MG 1 EACH TAB PO SCH ×4 (01:26→21:44)
--- NOTE | 2018-09-30 05:45 | PN ---
PROGRESS NOTE DATE OF SERVICE: 09/29/2018 PRESENTING COMPLAINT: GI bleed. INTERVAL HISTORY: This is a patient who recently in the hospital with GI bleed anticoagulation, was discharge on Eliquis, did come back again with GI bleed. Did receive 2 units of blood. Feeling better. Less tired today. Has been out of bed. REVIEW OF SYSTEMS: Done for constitutional, cardiovascular, GI, pulmonary; relevant findings as above. CURRENT MEDICATIONS: Current medications are reviewed. PHYSICAL EXAMINATION: On examination, temperature 97.8, pulse 60, respirations 18, blood pressure 145/69, pulse ox 93% on 2 L. GENERAL APPEARANCE: Sitting up, awake. EYES: Pupils equal. Conjunctivae normal. HEENT: External appearance of nose and ears normal. Oral cavity normal. NECK: JVD unable to assess. Mass not palpable. RESPIRATORY: Effort normal. LUNGS: Decreased breath sounds. CARDIOVASCULAR: First and second sounds normal. No edema. ABDOMEN: Soft, nontender. Liver and spleen not palpable. PSYCHIATRY: Alert and oriented x3. Mood and affect normal. INVESTIGATIONS: Hemoglobin is 8.1. BUN 33, creatinine 1.22. ASSESSMENT: 1. Acute gastrointestinal bleed in a patient with known gastroduodenitis. Has been on Eliquis causing acute blood loss anemia. 2. Acute blood loss anemia, symptomatic from gastrointestinal bleed did get a total of 2 units of blood. 3. Persistent atrial fibrillation. Eliquis now has been held off. 4. Chronic congestive heart failure with acute component probably from blood transfusion. Responded well to Lasix. Ejection fraction to 60% to 65%. 5. 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 6. Gastroesophageal reflux disease. 7. Hyperlipidemia. 8. Essential hypertension. 9. Primary osteoarthritis. 10.Hypothyroidism. 11.Chronic hypoxic respiratory failure on 2 L oxygen at home. 12.History of colon cancer. 13.Rosacea. 14.Chronic urinary stress incontinence. 15.Obesity; body mass index 33. 16.Chronic obstructive pulmonary disease in an ex-smoker. 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 PLAN: Patient overall doing better. Recheck hemoglobin in the morning. If doing good, may be discharged tomorrow. MMODL / IJN: [id number] /
[2018-09-30] MEDS: LEVOTHYROXINE 112 MCG TAB PO SCH (06:15)
[2018-09-30] MEDS: IPRATROPIUM-ALBUTEROL 3 ML NEB INHALATION SCH ×3 (07:16→21:00)
[2018-09-30] MEDS: SYMBICORT 160-4.5 MCG INHALER INHALATION SCH ×2 (07:16→21:00)
[2018-09-30] MEDS: POTASSIUM CHLORIDE ER 10 MEQ TAB.ER.PRT PO SCH (07:55)
[2018-09-30] MEDS: METOPROLOL TARTRATE 50 MG TAB PO SCH ×3 (07:55→21:45)
[2018-09-30] MEDS: PANTOPRAZOLE 40 MG TABLET PO SCH ×2 (07:56→17:20)
[2018-09-30] MEDS: AMIODARONE 200 MG TAB PO SCH ×2 (07:56→21:45)
[2018-09-30] MEDS: FUROSEMIDE 40 MG TAB PO SCH (07:56)
[2018-09-30] MEDS: SENNOSIDES-DOCUSATE SODIUM 1 EACH TAB PO SCH (07:57)
[2018-09-30 09:29] LABS: Calcium 8.8 mg/dL (8.4-10.2); Potassium 4.8 mmol/L (3.5-5.1)
--- NOTE | 2018-09-30 12:36 | XR ---
EXAMINATION TYPE: XR chest 2V DATE OF EXAM: 09/30/2018 COMPARISON: 09/26/2018 HISTORY: Shortness of breath TECHNIQUE: Frontal and lateral views of the chest are obtained. FINDINGS: There is slight improved aeration of the lungs however there remains mild interstitial julio ma demonstrated is diffuse reticulation with cardiomegaly. There is generalized osseous demineralizat ion and degenerative changes of the glenohumeral joints. There is improved delineation of the costoph renic angles from the prior. No sizable pneumothorax. IMPRESSION: Persistent mild interstitial pulmonary edema likely on the basis of decompensated conges tive heart failure although there is slight improved aeration of the lungs in comparison the prior.
[2018-09-30] MEDS: FERROUS SULFATE 325 MG TAB PO SCH (12:42)
[2018-09-30] MEDS: CALCIUM CARB-VIT D 500MG-200UN 1 EACH TAB PO SCH (12:42)
[2018-09-30] MEDS ORDERED: FUROSEMIDE 10 MG/ML 4 ML VIAL IV STA (13:06)
--- NOTE | 2018-09-30 14:19 | P.PN ---
Subjective This is a pleasant 83-year-old female past medical history significant for chronic diastolic heart failure, paroxysmal atrial fibrillation, COPD, hypertension, dyslipidemia, anemia and prior CVA. She is admitted into the hospital with GI bleeding and has undergone blood transfusion. No hgb for today. Anticoagulation has been held and she is determined to be a poor candidate for anticoagulation secondary to frequent GI bleeds. She complains of mild shortness of breath at rest. She denies chest pain, dizziness or palpitations. Most recent echocardiogram obtained June 2018 reveals preserved left ventricular systolic function with ejection fraction 60-65%, mildly dilated left atrium, mild aortic stenosis with a mean gradient of 9 mmHg, mild MR and mild to moderate mitral stenosis with a mean gradient of 8 mmHg, mild TR and moderate pulmonary hypertension with RVSP of 59 mmHg. Stat chest x-ray was ordered and reveals persistent mild interstitial pulmonary edema on the basis of decompensated heart failure. GENERAL: Well-appearing, well-nourished and in no acute distress. NECK: Supple without JVD or thyromegaly. LUNGS: Bibasilar rales noted, no wheezes or rhonchi. Respiration equal and unlabored. HEART: Regular rate and rhythm with systolic ejection murmur at the base, no rubs or gallops. S1 and S2 heard. EXTREMITIES: 1-2+ bilateral lower extremity pitting edema. Normal range of motion. No clubbing or cyanosis. Peripheral pulses intact. ASSESSMENT Acute GI bleeding on long-term anticoagulation. Anticoagulation has been discontinued. Paroxysmal atrial fibrillation, maintained on amiodarone Acute on chronic diastolic heart failure Acute blood loss anemia Chronic kidney disease COPD Dyslipidemia PLAN Repeat chest x-ray has been ordered and reviewed. If dose of IV Lasix 40 mg now. Initiate on IV Lasix 40 mg twice a day. Daily weights. Monitor intake and output every shift. Repeat kidney function, electrolytes and CBC in the morning. Further recommendations to follow based upon clinical course. Nurse Practitioner note has been reviewed, I agree with a documented findings and plan of care. Patient was seen and examined. Objective - Vital Signs Vital signs: Vital Signs Temp 97 F L 09/30/18 12:23 Pulse 72 09/30/18 13:55 Resp 15 09/30/18 12:23 BP 142/57 09/30/18 12:23 Pulse Ox 94 L 09/30/18 12:23 Intake & Output 11/09/30/18 09/30/18 18:59 06:59 18:59 Intake Total 100 Balance 100 Weight 83 kg Intake: Oral 100 Other: Voiding Method Bedside Commode Bedside Commode # Voids 2 - Labs CBC & Chem 7: 09/29/18 06:57 09/30/18 08:19 Labs: Abnormal Lab Results - Last 24 Hours (Table) 09/30/18 Range/Units 08:19 Carbon Dioxide 31 H (22-30) mmol/L BUN 30 H (7-17) mg/dL Creatinine 1.19 H (0.52-1.04) mg/dL Glucose 104 H (74-99) mg/dL
[2018-09-30] MEDS: MULTIVITAMINS, THERA 1 EACH TAB PO SCH (17:20)
[2018-09-30] MEDS: FUROSEMIDE 10 MG/ML 4 ML VIAL IV SCH (21:42)
[2018-09-30] MEDS: ALPRAZolam 0.25 MG TAB PO SCH (21:44)
[2018-09-30] MEDS: CITALOPRAM HYDROBROMIDE 20 MG TAB PO SCH (21:45)
[2018-09-30] MEDS: ATORVASTATIN 20 MG TAB PO SCH (21:45)
[2018-09-30] MEDS: LATANOPROST 0.005% OPHTH DROPS 2.5 ML BTL BOTH EYES SCH (21:47)
--- NOTE | 2018-09-30 23:55 | PN ---
PROGRESS NOTE DATE OF SERVICE: 09/30/2018 PRESENTING COMPLAINT: GI bleed. INTERVAL HISTORY: This patient was recently in the hospital with GI bleed and anticoagulation was restarted. On Eliquis. Came again with GI bleed. Did receive 2 units of blood. The patient did respond to IV Lasix. Seen by Cardiology earlier today and felt patient would benefit more with IV Lasix to be started. The patient has got some edema. Overall, patient feels a bit better. REVIEW OF SYSTEMS: Done for constitutional, cardiovascular, GI, pulmonary and relevant findings as above. CURRENT MEDICATIONS: Reviewed and include IV Lasix being resumed. PHYSICAL EXAMINATION: VITAL SIGNS: Temperature 97, pulse 57, respiration 15, blood pressure 142/57, pulse ox 94 percent on 2 L. GENERAL APPEARANCE: Sitting up, more comfortable. EYES: Pupils equal. Conjunctivae normal. HEENT external appearance of nose and ears normal. Oral cavity normal. NECK: JVD unable to assess. Mass not palpable. RESPIRATORY: Effort increased. LUNGS: Decreased breath sounds. CARDIOVASCULAR: 1st and 2nd sounds normal. Edema present. ABDOMEN: Soft, nontender. Liver and spleen not palpable. PSYCHIATRY: Alert and oriented x3. Mood and affect normal. INVESTIGATIONS: Potassium 4.8, BUN 30, creatinine 1.19. Chest x-ray film, personally reviewed by me, shows possible venous prominence. ASSESSMENT: 1. Acute gastrointestinal bleed in a patient with known gastroduodenitis, Eliquis causing acute blood loss anemia. 2. Acute blood loss anemia symptomatic from gastrointestinal bleed, did get a total 2 units of blood. 3. Persistent atrial fibrillation. Patient now currently off Eliquis. 4. Acute on chronic congestive heart failure exacerbation from congestive heart failure with an acute component from blood transfusion. EF 60-65 percent. 5. 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 6. Gastroesophageal reflux disease. 7. Hyperlipidemia. 8. Essential hypertension. 9. Primary osteoarthritis. 10.Hypothyroidism. 11.Chronic hypoxic respiratory failure on 2 L oxygen at home. 12.History of colon cancer. 13.Rosacea. 14.Chronic urinary stress incontinence. 15.Obesity; BMI 33. 16.Chronic obstructive pulmonary disease in an ex-smoker. 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 PLAN: Discussed with Cardiology. IV Lasix is to be given per them. See how the patient does tomorrow. Other medications to continue. MMODL / IJN: [id number] /
[2018-10-01] MEDS: LEVOTHYROXINE 112 MCG TAB PO SCH (05:35)
[2018-10-01] MEDS: PANTOPRAZOLE 40 MG TABLET PO SCH (07:49)
[2018-10-01] MEDS: AMIODARONE 200 MG TAB PO SCH (07:49)
[2018-10-01] MEDS: METOPROLOL TARTRATE 50 MG TAB PO SCH (07:49)
[2018-10-01] MEDS: POTASSIUM CHLORIDE ER 10 MEQ TAB.ER.PRT PO SCH (07:50)
[2018-10-01] MEDS: FUROSEMIDE 10 MG/ML 4 ML VIAL IV SCH (07:50)
[2018-10-01] MEDS: HYDROcodone/APAP 10-325MG 1 EACH TAB PO SCH (07:52)
[2018-10-01] MEDS: SENNOSIDES-DOCUSATE SODIUM 1 EACH TAB PO SCH (07:52)
[2018-10-01] MEDS: IPRATROPIUM-ALBUTEROL 3 ML NEB INHALATION SCH ×2 (08:26→12:07)
[2018-10-01] MEDS: SYMBICORT 160-4.5 MCG INHALER INHALATION SCH (08:26)
--- NOTE | 2018-10-01 10:07 | CDI ---
Last Revision, October 2017 Documentation Clarification Form Date: 2017 From: Lizette Bustillos RN Admit Date: 09/26/2018 1:09:00 PM Patient Name: Nadira Lopez Visit Number: [id number] ATTENTION: The Clinical Documentation Specialists (CDI) and [facility] Coding Staff appreciate your assistance in clarifying documentation. Please respond to the clarification below the line at the bottom and electronically sign. The CDI & [facility] Coding staff will review the response and follow-up if needed. Please note: Queries are made part of the Legal Health Record. If you have any questions, please contact the author of this message via ITS. Jona Haddad MD, Can you please render your opinion on the following documentation? Patient admitted with Chf, anemia, renal insufficiency syndrome History/Risk Factors: asthma, heart failure, stroke, HTN, , hyperlipidemia, hypothyroid, home o2, colon cancer Clinical Indicators: BUN 09/26 - : 34,33, 30 , CR 1.18, 1.22, 1.19, GFR: 44, 41, 43 Consult 09/27: disorder of the kidney PN 09/30: Chronic Kidney disease Treatment Patients medications include: Calcium Carbonate, Furosemide, Feosol, MultivitaminsI IVF: none In order to capture the severity of condition, please clarify if the condition signifies: CKD Stage 3 (GFR 30-59) CKD Stage 4 (GFR 15-29) Other, please specify Unable to determine ____ ckd stage 3 MTDD
[2018-10-01 10:27] LABS: Anisocytosis Slight; Basophils % (A) 1 %; Eosinophils # (A) 0.2 k/uL (0-0.7); Eosinophils % (A) 5 %; HCT 28.8 % (34.0-46.0); HGB 8.7 gm/dL (11.4-16.0); Hypochromasia Marked; Lymphocytes % (A) 22 %; MCH 29.6 pg (25.0-35.0); MCHC 30.3 g/dL (31.0-37.0); MCV 97.6 fL (80.0-100.0); Macrocytosis Slight; Mean Platelet Volume 8.8; Monocytes # (A) 0.4 k/uL (0-1.0); Monocytes % (A) 8 %; Neutrophils # (A) 2.8 k/uL (1.3-7.7); Neutrophils % (A) 60 %; Poikilocytosis Slight; RBC 2.95 m/uL (3.80-5.40); RDW 19.2 % (11.5-15.5); WBC 4.6 k/uL (3.8-10.6)
[2018-10-01 10:28] LABS: Calcium 8.7 mg/dL (8.4-10.2); Potassium 4.4 mmol/L (3.5-5.1)
[2018-10-01 10:33] LABS: Platelet Count 68 k/uL (150-450)
[2018-10-01 12:15] VITALS: BP 142/57; RESP 18; TEMP 97.2
--- NOTE | 2018-10-01 13:00 | P.PN ---
Subjective This is a pleasant 83-year-old female past medical history significant for chronic diastolic heart failure, paroxysmal atrial fibrillation, COPD, hypertension, dyslipidemia, anemia and prior CVA. She is admitted into the hospital with GI bleeding and has undergone blood transfusion. Anticoagulation has been held and she is determined to be a poor candidate for anticoagulation secondary to frequent GI bleeds. She is seen and examined sitting up in the chair in no acute distress. She states her breathing feels better and the swelling in her legs is gone. She denies chest pain, dizziness or palpitations. She states her breathing is at her baseline and is good as long as her oxygen is on. Laboratory data reviewed, hemoglobin 8.7, platelets 68, sodium 1:30, potassium 4.4, creatinine 1.29. No documentation of output. GENERAL: Well-appearing, well-nourished and in no acute distress. NECK: Supple without JVD or thyromegaly. LUNGS: Bibasilar rales noted, no wheezes or rhonchi. Respiration equal and unlabored. HEART: Regular rate and rhythm with systolic ejection murmur at the base, no rubs or gallops. S1 and S2 heard. EXTREMITIES: Trace bilateral lower extremity edema. Normal range of motion. No clubbing or cyanosis. Peripheral pulses intact. ASSESSMENT Acute GI bleeding on long-term anticoagulation. Anticoagulation has been discontinued. Paroxysmal atrial fibrillation, maintained on amiodarone Acute on chronic diastolic heart failure Acute blood loss anemia Chronic kidney disease COPD Dyslipidemia PLAN Transition to PO diuretics. Stable for discharge home from a cardiac perspective. Follow up with Dr. Leslie upon discharge. Nurse Practitioner note has been reviewed, I agree with a documented findings and plan of care. Patient was seen and examined. Objective - Vital Signs Vital signs: Vital Signs Temp 97.2 F L 10/01/18 12:14 Pulse 60 10/01/18 12:22 Resp 18 10/01/18 12:14 BP 142/57 10/01/18 12:14 Pulse Ox 100 10/01/18 12:14 Intake & Output 09/30/18 10/01/18 10/01/18 18:59 06:59 18:59 Weight 82 kg 82 kg Other: Voiding Method Bedside Commode Bedside Commode Bedside Commode # Voids 3 3 # Bowel Movements 3 - Labs CBC & Chem 7: 10/01/18 09:37 10/01/18 09:37 Labs: Abnormal Lab Results - Last 24 Hours (Table) 10/01/18 10/01/18 Range/Units 09:37 09:37 RBC 2.95 L (3.80-5.40) m/uL Hgb 8.7 L (11.4-16.0) gm/dL Hct 28.8 L (34.0-46.0) % MCHC 30.3 L (31.0-37.0) g/dL RDW 19.2 H (11.5-15.5) % Plt Count 68 L (150-450) k/uL BUN 38 H (7-17) mg/dL Creatinine 1.29 H (0.52-1.04) mg/dL Glucose 111 H (74-99) mg/dL
[2018-10-01] MEDS: FERROUS SULFATE 325 MG TAB PO SCH (14:06)
[2018-10-01] MEDS: CALCIUM CARB-VIT D 500MG-200UN 1 EACH TAB PO SCH (14:06)
--- NOTE | 2018-10-01 14:50 | DS ---
DISCHARGE SUMMARY DATE OF ADMISSION: 09/26/2018 DATE OF DISCHARGE: 10/01/2018 FINAL DIAGNOSES: 1. Acute gastrointestinal bleed in a patient with known gastritis duodenitis secondary to Eliquis causing acute blood loss anemia. 2. Acute blood loss anemia, symptomatic from gastrointestinal bleed. Patient did get a total of 2 units of blood. 3. Persistent atrial fibrillation. Patient is currently off Eliquis. 4. Acute on chronic congestive heart failure exacerbation from congestive heart failure, ejection fraction 60%-65%. 5. 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 6. Gastroesophageal reflux disease. 7. Hyperlipidemia. 8. Chronic kidney disease, stage III, from nephrosclerosis. 9. Essential hypertension. 10.Primary osteoarthritis. 11.Hypothyroidism. 12.Chronic hypoxic respiratory failure on 2 L oxygen at home. 13.History of colon cancer. 14.Rosacea. 15.Chronic urinary stress incontinence. 16.Obesity, body mass index of 33. 17.Chronic obstructive pulmonary disease in an ex-smoker. 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 HOSPITAL COURSE: This patient presented with dark stools, who was just discharged from the hospital, was put back on Eliquis, at that time was found to have gastroduodenitis from being on Eliquis. Initial hemoglobin was 6.2, down from 8.5 when she was discharged. Did receive 2 units of blood. Hemoglobin back up to 8.7. Eliquis has now been held off. The patient also was in congestive heart failure, given IV Lasix. Doing much better today. PHYSICAL EXAMINATION: Temperature 97.2, pulse 50, respiratory 18, blood pressure 140/57, pulse ox 100%. LUNGS: Fair air entry. CARDIOVASCULAR: First and second sounds are normal. ABDOMEN: Soft, minimal edema. PSYCH: AO x3. INVESTIGATION: White count 4.6, hemoglobin 8.7, platelets 68. Potassium 4.4, BUN 38, creatinine 1.29. CONSULTATION: 1. Dr. Butcher from Cardiology. 2. Dr. Roman from GI. DISCHARGE MEDICATIONS: 1. Fosamax 70 mg on Sundays. 2. Celexa 20 mg q.h.s. 3. Xalatan 0.005% 1 drop to both eyes q.h.s. 4. Potassium 10 mEq p.o. daily. 5. Zocor 40 mg q.h.s. 6. Calcium 600. 7. Vitamin D3 one tablet p.o. daily. 8. Multivitamin 1 tablet p.o. daily. 9. Vitamin E 400 units p.o. daily 6:00 pm. 10.Duragesic 25 mcg an hour patch q. 72 hours. 11.Requip 2 mg p.o. q.h.s. 12.Xanax 0.25 p.o. q.h.s. 13.Lasix 40 mg p.o. daily. 14.Iron 325 mg daily. 15.Symbicort 160/4.5 two puffs b.i.d. 16.DuoNeb t.i.d. 17.Senokot S 1 tablet p.o. daily. 18.Cordarone 200 mg b.i.d. 19.Central 10 1 tablet q.8 p.r.n. 20.Synthroid 112 mcg p.o. daily. 21.Lopressor 50 mg t.i.d. 22.Omeprazole 20 mg b.i.d. FOLLOWUP: Follow up with Dr. Maya on 10/01/2018; Dr. Don Leslie on 10/09/2018; Dr. Paddy Frey 10/07/2018. CBC in 3 days. MMODL / IJN: [id number] /
[2018-10-01 16:35] VITALS: PULSE 53
[2018-10-02] MEDS ORDERED: FUROSEMIDE 40 MG TAB PO SCH (09:00)
== END 2018-10-01 17:01 | disposition home or self-care (01) | DRG 813 ==
LOC: EC 07:55 → 3NMEDONC 13:09
PROVIDERS: ADMIT Hospitalist; ATTEND Hospitalist
PROC: 30233N1 Transfusion of Nonautologous Red Blood Cells into Peripheral Vein, Percutaneous Approach (ICD-10-PCS; principal; 2018-09-26 09:30)
DX: D68.32 Hemorrhagic disorder due to extrinsic circulating anticoagulants (principal); I50.33 Acute on chronic diastolic (congestive) heart failure; K29.91 Gastroduodenitis, unspecified, with bleeding; I13.0 Hypertensive heart and chronic kidney disease with heart failure and stage 1 through stage 4 chronic kidney disease, or unspecified chronic kidney disease; D62 Acute posthemorrhagic anemia; I48.1 Persistent atrial fibrillation; J96.11 Chronic respiratory failure with hypoxia; D69.3 Immune thrombocytopenic purpura; E78.5 Hyperlipidemia, unspecified; G25.81 Restless legs syndrome; H40.9 Unspecified glaucoma; I08.0 Rheumatic disorders of both mitral and aortic valves; E03.9 Hypothyroidism, unspecified; E66.9 Obesity, unspecified; I27.29 Other secondary pulmonary hypertension; I48.0 Paroxysmal atrial fibrillation; J44.9 Chronic obstructive pulmonary disease, unspecified; K21.9 Gastro-esophageal reflux disease without esophagitis; K44.9 Diaphragmatic hernia without obstruction or gangrene; K57.90 Diverticulosis of intestine, part unspecified, without perforation or abscess without bleeding; L71.9 Rosacea, unspecified; M19.91 Primary osteoarthritis, unspecified site; N18.3 Chronic kidney disease, stage 3 (moderate); N39.3 Stress incontinence (female) (male); Z68.33 Body mass index [BMI] 33.0-33.9, adult; Z79.01 Long term (current) use of anticoagulants; Z79.51 Long term (current) use of inhaled steroids; Z79.83 Long term (current) use of bisphosphonates; Z79.899 Other long term (current) drug therapy; Z85.038 Personal history of other malignant neoplasm of large intestine; Z86.73 Personal history of transient ischemic attack (TIA), and cerebral infarction without residual deficits; Z87.891 Personal history of nicotine dependence; Z92.21 Personal history of antineoplastic chemotherapy; Z92.3 Personal history of irradiation; Z99.81 Dependence on supplemental oxygen; Z98.42 Cataract extraction status, left eye; Z98.41 Cataract extraction status, right eye; Z79.890 Hormone replacement therapy; Z79.891 Long term (current) use of opiate analgesic; Z88.5 Allergy status to narcotic agent; Z88.2 Allergy status to sulfonamides; Z89.9 Acquired absence of limb, unspecified; Z81.1 Family history of alcohol abuse and dependence; T45.525A Adverse effect of antithrombotic drugs, initial encounter
CPT/HCPCS: 36415; 36569; 71046; 76937; 80048; 80053; 82272; 82550; 82553; 83735; 83880; 84484; 85025; 85610; 85730; 86850; 86900; 86901; 86920; 93005; 94640; 96374; 96376; 99291

== ENCOUNTER 2018-12-25 08:07 | Inpatient (IN) | payer MEDICARE ==
[2018-12-25] MEDS ORDERED: PANTOPRAZOLE 40 MG/10 ML VIAL IVP STA (09:07)
--- NOTE | 2018-12-25 09:13 | ED ---
General Adult HPI - General Chief complaint: Vaginal Bleeding Stated complaint: Rectal bleeding Time Seen by Provider: 12/25/18 08:22 Source: patient, RN notes reviewed Mode of arrival: ambulatory Limitations: no limitations - History of Present Illness Initial comments: 83-year-old female presents to the emergency department for a chief complaint of rectal bleeding times one episode. Patient states she woke up this morning and sat down to urinate. She states when she stood up there was blood in the toilet. Patient states this blood was bright red with clots. Patient does have a history of colon cancer. Patient has been complaining of left-sided abdominal pain 1 week as well. Patient denies any significant pain at this time. She denies nausea or vomiting. She denies dizziness, chest pain, shortness of breath. Patient has no other complaints at this time including shortness of breath, chest pain, nausea or vomiting, headache, or visual changes. - Related Data Home Medications Medication Instructions Recorded Confirmed Alendronate Sodium [Fosamax] 70 mg PO SCHMITT 11/30/16 12/25/18 Citalopram Hydrobromide [CeleXA] 20 mg PO HS 11/30/16 12/25/18 Latanoprost [Xalatan 0.005%] 1 drop BOTH EYES HS 11/30/16 12/25/18 Potassium Chloride ER [K-Dur 10] 10 meq PO DAILY 11/30/16 12/25/18 Simvastatin [Zocor] 40 mg PO HS 11/30/16 12/25/18 Calcium Carbonate/Vitamin D3 1 tab PO DAILY 05/30/17 12/25/18 [Calcium 600-Vit D3 800 Tab] Multivitamins, Thera [Multivitamin 1 tab PO DAILY@1800 05/30/17 12/25/18 (formulary)] Vitamin E (Dl,Tocopheryl Acet) 400 unit PO DAILY@1800 05/30/17 12/25/18 [Vitamin E] fentaNYL 25MCG/HR PATCH [Duragesic 1 patch TRANSDERM Q72H 11/02/17 12/25/18 25MCG/HR] rOPINIRole HCL [Requip] 2 mg PO HS 11/02/17 12/25/18 ALPRAZolam [Xanax] 0.25 mg PO HS 01/08/18 12/25/18 Furosemide [Lasix] 40 mg PO DAILY 03/27/18 12/25/18 Ipratropium-Albuterol Nebulize 3 ml INHALATION RT-TID 08/11/18 12/25/18 [Duoneb 0.5 mg-3 mg/3 ml Soln] Amiodarone [Cordarone] 200 mg PO DAILY 12/25/18 12/25/18 Aspirin [Menan Aspirin EC] 81 mg PO HS 12/25/18 12/25/18 Docusate [Colace] 200 mg PO DAILY 12/25/18 12/25/18 Ferrous Sulfate [Feosol] 325 mg PO BID 12/25/18 12/25/18 HYDROcodone/APAP 10-325MG [[place] 1 tab PO Q6HR PRN 12/25/18 12/25/18 10-325] Previous Rx's Medication Instructions Recorded Levothyroxine Sodium [Synthroid] 112 mcg PO DAILY@0630 #30 tab 09/10/18 Metoprolol Tartrate [Lopressor] 50 mg PO TID #90 tab 09/10/18 Allergies Allergy/AdvReac Type Severity Reaction Status Date / Time codeine AdvReac Confusion Verified 12/25/18 08:40 sulfamethoxazole AdvReac Nausea & Verified 12/25/18 08:40 [From Bactrim] Vomiting trimethoprim [From Bactrim] AdvReac Nausea & Verified 12/25/18 08:40 Vomiting Review of Systems ROS Statement: Those systems with pertinent positive or pertinent negative responses have been documented in the HPI. ROS Other: All systems not noted in ROS Statement are negative. Past Medical History Past Medical History: Atrial Fibrillation, Asthma, Cancer, Heart Failure, CVA/ TIA, GERD/Reflux, Hyperlipidemia, Hypertension, Osteoarthritis (OA), Pneumonia, Thyroid Disorder, Vascular Disorder Additional Past Medical History / Comment(s): home 02 2 liters n/c , Murmur; constipation,Colon Ca 2001(has sx,chemo and radiation),rosacea,injury to rt hand / lost most of it. rls, glaucoma,pleurisy, sinus problems,uti, past falls(broke lt hip and R patella(had sx), uses a w/c when out side the home.pne vaccine-but pt not sure when she had it. 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 and hadgrafting done(donor site was abd), carpal tunnel, krista cataracts,colonoscopy/polypectomy, right knee surgery Past Anesthesia/Blood Transfusion Reactions: No Reported Reaction Past Psychological History: No Psychological Hx Reported Smoking Status: Former smoker Past Alcohol Use History: None Reported Past Drug Use History: None Reported - Past Family History Father Family Medical History: Liver Disease Additional Family Medical History / Comment(s): etoh abuse-cirrhosis of the liver Mother Additional Family Medical History / Comment(s): brain aneurysm General Exam Limitations: no limitations General appearance: alert, in no apparent distress Head exam: Present: atraumatic, normocephalic, normal inspection Eye exam: Present: normal appearance, PERRL, EOMI. Absent: scleral icterus, conjunctival injection, periorbital swelling ENT exam: Present: normal exam, mucous membranes moist Neck exam: Present: normal inspection, full ROM. Absent: tenderness, meningismus, lymphadenopathy Respiratory exam: Present: normal lung sounds bilaterally. Absent: respiratory distress, wheezes, rales, rhonchi, stridor Cardiovascular Exam: Present: regular rate, normal rhythm, normal heart sounds. Absent: systolic murmur, diastolic murmur, rubs, gallop, clicks GI/Abdominal exam: Present: soft, normal bowel sounds. Absent: distended, tenderness (no tenderness ntoed on exam), guarding, rebound, rigid Rectal exam: Present: normal rectal tone, other (dried blood noted around anus) . Absent: black stool, fecal impaction, mass External exam: Present: normal external exam. Absent: erythema, swelling, lesions, lacerations, ecchymosis, other (no blood noted at vaginal os) Neurological exam: Present: alert, oriented X3, CN II-XII intact Psychiatric exam: Present: normal affect, normal mood Course Vital Signs 12/25/18 12/25/18 12/25/18 08:10 10:00 10:10 Temperature 98.7 F Pulse Rate 63 61 59 L Respiratory 18 18 18 Rate Blood Pressure 166/66 157/58 160/83 O2 Sat by Pulse 90 L 96 99 Oximetry 12/25/18 12/25/18 10:20 10:30 Temperature Pulse Rate 60 Respiratory Rate Blood Pressure 160/83 160/83 O2 Sat by Pulse 98 Oximetry EKG Findings - EKG Comments: EKG Findings:: Normal sinus rhythm with left bundle branch block, ventricular rate 61, IL interval 166, QTC 497, left bundle is chronic. Medical Decision Making - Medical Decision Making 83-year-old female presents to the emergency department for a chief complaint of rectal bleeding times one episode. States she woke up this morning and sat down to urinate when she noticed a significant amount of blood in the toilet. On exam no vaginal bleeding noted. However patient does have dried blood around the rectum. Occult stool is positive. No hematuria on urinalysis. Hemoglobin 10.7 which is actually above patient's baseline. Patient was complaining of left lower quadrant pain for the past week as well. I did order a CAT scan to rule out pathology such as diverticulitis. There is no evidence of diverticulitis however there is a suspicious right complex adnexal lesion as well as solitary prominent loop of small bowel in the right lower quadrant containing air-fluid level that may present focal ileus. Patient will be admitted for GI bleed. She was given Protonix. Gynecology will be consulted. - Lab Data Result diagrams: 12/25/18 09:51 12/25/18 09:51 Lab Results 12/25/18 12/25/18 12/25/18 Range/Units 09:51 09:51 09:51 WBC 5.1 (3.8-10.6) k/uL RBC 3.39 L (3.80-5.40) m/uL Hgb 10.7 L (11.4-16.0) gm/dL Hct 34.2 (34.0-46.0) % MCV 100.8 H (80.0-100.0) fL MCH 31.6 (25.0-35.0) pg MCHC 31.3 (31.0-37.0) g/dL RDW 14.1 (11.5-15.5) % Plt Count 62 L (150-450) k/uL Neutrophils % 69 % Lymphocytes % 18 % Monocytes % 6 % Eosinophils % 4 % Basophils % 1 % Neutrophils # 3.5 (1.3-7.7) k/uL Lymphocytes # 0.9 L (1.0-4.8) k/uL Monocytes # 0.3 (0-1.0) k/uL Eosinophils # 0.2 (0-0.7) k/uL Basophils # 0.1 (0-0.2) k/uL Hypochromasia Slight Poikilocytosis (manual Present Anisocytosis (manual) Present Macrocytosis Slight PT 10.5 (9.0-12.0) sec INR 1.0 (<1.2) APTT 18.5 L (22.0-30.0) sec Sodium 142 (137-145) mmol/L Potassium 5.0 (3.5-5.1) mmol/L Chloride 107 (98-107) mmol/L Carbon Dioxide 26 (22-30) mmol/L Anion Gap 9 mmol/L BUN 36 H (7-17) mg/dL Creatinine 1.16 H (0.52-1.04) mg/dL Est GFR (CKD-EPI)AfAm 51 (>60 ml/min/1.73 sqM) Est GFR (CKD-EPI)NonAf 44 (>60 ml/min/1.73 sqM) Glucose 95 (74-99) mg/dL Calcium 9.3 (8.4-10.2) mg/dL Total Bilirubin 0.5 (0.2-1.3) mg/dL AST 72 H (14-36) U/L ALT 67 H (9-52) U/L Alkaline Phosphatase 69 (38-126) U/L Total Protein 7.0 (6.3-8.2) g/dL Albumin 3.8 (3.5-5.0) g/dL Urine Color Urine Appearance (Clear) Urine pH (5.0-8.0) Ur Specific [place] (1.001-1.035) Urine Protein (Negative) Urine Glucose (UA) (Negative) Urine Ketones (Negative) Urine Blood (Negative) Urine Nitrite (Negative) Urine Bilirubin (Negative) Urine Urobilinogen (<2.0) mg/dL Ur Leukocyte Esterase (Negative) Stool Occult Blood (Negative) Blood Type Blood Type Recheck Antibody Screen Spec Expiration Date 12/25/18 12/25/18 12/25/18 Range/Units 09:51 09:51 11:00 WBC (3.8-10.6) k/uL RBC (3.80-5.40) m/uL Hgb (11.4-16.0) gm/dL Hct (34.0-46.0) % MCV (80.0-100.0) fL MCH (25.0-35.0) pg MCHC (31.0-37.0) g/dL RDW (11.5-15.5) % Plt Count (150-450) k/uL Neutrophils % % Lymphocytes % % Monocytes % % Eosinophils % % Basophils % % Neutrophils # (1.3-7.7) k/uL Lymphocytes # (1.0-4.8) k/uL Monocytes # (0-1.0) k/uL Eosinophils # (0-0.7) k/uL Basophils # (0-0.2) k/uL Hypochromasia Poikilocytosis (manual Anisocytosis (manual) Macrocytosis PT (9.0-12.0) sec INR (<1.2) APTT (22.0-30.0) sec Sodium (137-145) mmol/L Potassium (3.5-5.1) mmol/L Chloride (98-107) mmol/L Carbon Dioxide (22-30) mmol/L Anion Gap mmol/L BUN (7-17) mg/dL Creatinine (0.52-1.04) mg/dL Est GFR (CKD-EPI)AfAm (>60 ml/min/1.73 sqM) Est GFR (CKD-EPI)NonAf (>60 ml/min/1.73 sqM) Glucose (74-99) mg/dL Calcium (8.4-10.2) mg/dL Total Bilirubin (0.2-1.3) mg/dL AST (14-36) U/L ALT (9-52) U/L Alkaline Phosphatase (38-126) U/L Total Protein (6.3-8.2) g/dL Albumin (3.5-5.0) g/dL Urine Color Yellow Urine Appearance Clear (Clear) Urine pH 5.5 (5.0-8.0) Ur Specific [place] 1.023 (1.001-1.035) Urine Protein Negative (Negative) Urine Glucose (UA) Negative (Negative) Urine Ketones Negative (Negative) Urine Blood Negative (Negative) Urine Nitrite Negative (Negative) Urine Bilirubin Negative (Negative) Urine Urobilinogen <2.0 (<2.0) mg/dL Ur Leukocyte Esterase Negative (Negative) Stool Occult Blood Positive H (Negative) Blood Type AB Positive Blood Type Recheck No Antibody Screen NEGATIVE Spec Expiration Date 12/28/2018 9280 - EKG Data -: EKG Interpreted by Me (and Dr Lewis) When compared to previous EKG there are: no significant change Interpretation: no acute changes, unchanged when compared to prior tracing (date ) (09/26/18) Disposition Clinical Impression: GI bleed, Adnexal mass Disposition: ADMITTED IP TO THIS [facility] Condition: Good Referrals: Delano Maya MD [Primary Care Provider] - 1-2 days Time of Disposition: 12:41
[2018-12-25 10:10] LABS: Basophils # (A) 0.1 k/uL (0-0.2); Basophils % (A) 1 %; Eosinophils # (A) 0.2 k/uL (0-0.7); Eosinophils % (A) 4 %; HCT 34.2 % (34.0-46.0); HGB 10.7 gm/dL (11.4-16.0); Hypochromasia Slight; Lymphocytes # (A) 0.9 k/uL (1.0-4.8); Lymphocytes % (A) 18 %; MCH 31.6 pg (25.0-35.0); MCHC 31.3 g/dL (31.0-37.0); MCV 100.8 fL (80.0-100.0); Macrocytosis Slight; Mean Platelet Volume 8.8; Monocytes # (A) 0.3 k/uL (0-1.0); Monocytes % (A) 6 %; Neutrophils # (A) 3.5 k/uL (1.3-7.7); Neutrophils % (A) 69 %; RBC 3.39 m/uL (3.80-5.40); RDW 14.1 % (11.5-15.5); WBC 5.1 k/uL (3.8-10.6)
[2018-12-25 10:22] LABS: Albumin 3.8 g/dL (3.5-5.0); Calcium 9.3 mg/dL (8.4-10.2); Total Bilirubin 0.5 mg/dL (0.2-1.3)
[2018-12-25 10:31] LABS: Prothrombin Time 10.5 sec (9.0-12.0)
[2018-12-25 10:34] LABS: Partial Thromboplastin Time 18.5 sec (22.0-30.0)
[2018-12-25 10:45] LABS: Platelet Count 62 k/uL (150-450)
[2018-12-25 10:46] LABS: Anisocytosis (M) Present; Poikilocytosis (M) Present
--- NOTE | 2018-12-25 11:13 | CT ---
EXAMINATION TYPE: CT abdomen pelvis w con DATE OF EXAM: 12/25/2018 HISTORY: Abdominal pain CT DLP: 909.9mGycm Automated Exposure Control for Dose Reduction was Utilized. CONTRAST: CT scan of the abdomen and pelvis is performed with IV Contrast, patient injected with 80 mL of Isovu e 300. COMPARISON: None. FINDINGS: LUNG BASES: LIVER/GB: There are multiple hypoattenuated hepatic lesions compatible with simple cysts, the lesions that are too small to accurately characterize but appear to be present on the examination of 2012 re presenting benign cysts other than a probable cyst of the inferior right hepatic lobe on image 32. Th ere is a lobular contour of the liver suggesting underlying hepatocellular disease. PANCREAS: No significant abnormality is seen. SPLEEN: No significant abnormality is seen. ADRENALS: No significant abnormality is seen. KIDNEYS: Multifocal cortical defects from prior scarring is seen of both kidneys. 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 No hydronephrosis. BOWEL: Small descending duodenal diverticulum is noted near the common bile duct insertion. There are multiple colonic diverticula with diverticula of the sigmoid colon containing inspissated debris. Ap pendix is within normal limits of size. Terminal ileum is decompressed. Few loops of prominent fluid- filled small bowel in the right lower quadrant with air-fluid levels measuring up to 2.5 cm are seen possibly representing focal ileus or sentinel loop. This is adjacent to the suspicious right adnexal mass. UTERUS/ADNEXA: There is a right adnexal lesion measuring 5.3 x 5.0 x 10.9 cm in transverse by by cran iocaudal by anterior posterior dimension. This has internal septations and internal complexity and is suspicious for neoplasm. LYMPH NODES: No greater than 1cm abdominal or pelvic lymph nodes are appreciated. OSSEOUS STRUCTURES: There are healed partially visualized callus fracture deformities of the right 11 th, 10th, ninth and eighth posterior lateral ribs. Fixation of a prior healed left femoral fracture d eformity is noted. Mild degenerative changes of the spine are present. OTHER: Moderate atherosclerosis is seen of the abdominal aorta and its branches. IMPRESSION: 1. Suspicious right complex adnexal lesion measuring 5.3 x 5.0 x 10.9 cm that should be considered ne oplasm until proven otherwise. Consultation is recommended with gynecologic oncology. 2. 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 3. Lobulated contour of the liver suggests underlying hepatocellular disease.
[2018-12-25 11:40] LABS: Appearance,Urine Clear (Clear); Bilirubin,Urine Negative (Negative); Blood,Urine Negative (Negative); Color,Urine Yellow; Glucose,Urine (UA) Negative (Negative); Ketones,Urine Negative (Negative); Leukocyte Esterase,Urine Negative (Negative); Nitrite,Urine Negative (Negative); PH, Urine 5.5 (5.0-8.0); Protein,Urine Negative (Negative); Specific Gravity,Urine 1.023 (1.001-1.035); Urobilinogen,Urine <2.0 mg/dL (<2.0)
[2018-12-25] MEDS ORDERED: traMADol 50 MG TAB PO PRN (13:26)
[2018-12-25] MEDS ORDERED: ACETAMINOPHEN TAB 325 MG TAB PO PRN (13:26)
[2018-12-25] MEDS ORDERED: NALOXONE 0.4 MG/ML 1 ML VIAL IV PRN (13:26)
[2018-12-25] MEDS: SODIUM CHLORIDE 0.9% 1,000 ML IV SCH (15:31)
[2018-12-26] MEDS ORDERED: HYDROcodone/APAP 10-325MG 1 EACH TAB PO PRN (00:14)
--- NOTE | 2018-12-26 00:27 | P.HPIM ---
History of Present Illness H&P Date: 12/25/18 Chief Complaint: Rectal bleeding Patient is a 83-year-old female with a known history of hypertension, hyperlipidemia, paroxysmal atrial fibrillation not on anticoagulation due to previous history of GI bleed, currently on aspirin, COPD, history of CVA/TIA, GERD, osteoarthritis, hypothyroidism and history of colon cancer status post surgery and chemo and radiation 2001, chronic hypoxic respiratory failure on home oxygen with another cannula, pulmonary hypertension, CK D stage III, history of CVA with slight speech difficulty, chronic low back pain and multiple other medical problems came to ER with the complaints of rectal bleeding. Patient went to use the bathroom for urination and suddenly she noticed bright blood in the toilet. Denied any abdominal pain. Patient also having left upper quadrant abdominal pain intermittently for the past 1 week. Denied any nausea vomiting. No hematemesis. FOBT is positive. patient is also on iron supplementation at home. No headache or dizziness or lightheadedness. No chest pain or shortness of breath. No active bleeding at this time. CT of abdomen pelvis showed suspicious of right adnexal lesion consistent neoplasm until proven otherwise. Focal mild ileus right lower quadrant air-fluid level. Underlying hepatocellular Disease. Hemoglobin 10.7 on admission. Review of Systems Constitutional: Patient denies any fever or chills . No generalized weakness or weight loss. Abdomen: Patient denied nausea vomiting and diarrhea and abdominal pain. Cardiovascular: Patient denies any chest pain or short of breath no palpitations. Respiratory: patient denied any cough is from production. No shortness of breath Neurologic: Patient denied any numbness or tingling headache. Musculoskeletal: Patient denies any complaints of joint swelling or deformity. Skin: Negative Psychiatric: Negative Endocrine: No heat or cold intolerance. No recent weight gain. Genitourinary: No dysuria or hematuria. All other 14 point ROS negative except the above Past Medical History Past Medical History: Atrial Fibrillation, Asthma, Cancer, Heart Failure, COPD, CVA/TIA, Eye Disorder, GERD/Reflux, GI Bleed, Hyperlipidemia, Hypertension, Osteoarthritis (OA), Pneumonia, Renal Disease, Skin Disorder, Thyroid Disorder, Vascular Disorder Additional Past Medical History / Comment(s): GI bleed with acute blood loss anemia, thrombocytopenia, gastritis/duodenitis, 2001 colon cancer with surgery/ chemo and radiation, chronic hypoxic respiratory failure, home O2 at 2L/NC ATC, pulmonary HTN, pleurisy, chronic kidney disease stage III, CVA with slight speech difficulty, heart murmur, glaucoma bilaterally, hypothyroid, rosacia, UTIs, urine stress incontinence, constipation, arthritis multiple joints, chronic low back pain, past fall with L hip fracture and R patellar fracture, rib fracture, sinus problems. 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 done(donor site was abd), bilateral carpal tunnel releases, R patella fused d/t fracture, krsita cataracts, colonoscopy/polypectomy Past Anesthesia/Blood Transfusion Reactions: No Reported Reaction Past Psychological History: No Psychological Hx Reported Additional Psychological History / Comment(s): pt stated she lives with son and his and 2 grandchildren. has home 02, cane/walker, shower chair . has manager urgent care to help with showers. Smoking Status: Former smoker Past Alcohol Use History: None Reported Additional Past Alcohol Use History / Comment(s): Pt started smoking 1966,quit 1986, smoked 1.5 ppd Past Drug Use History: None Reported - Past Family History Father Family Medical History: Liver Disease Additional Family Medical History / Comment(s): etoh abuse-cirrhosis of the liver Mother Additional Family Medical History / Comment(s): brain aneurysm Medications and Allergies Home Medications Medication Instructions Recorded Confirmed Type Alendronate Sodium [Fosamax] 70 mg PO SCHMITT 11/30/16 12/25/18 History Citalopram Hydrobromide [CeleXA] 20 mg PO HS 11/30/16 12/25/18 History Latanoprost [Xalatan 0.005%] 1 drop BOTH EYES HS 11/30/16 12/25/18 History Potassium Chloride ER [K-Dur 10] 10 meq PO DAILY 11/30/16 12/25/18 History Simvastatin [Zocor] 40 mg PO HS 11/30/16 12/25/18 History Calcium Carbonate/Vitamin D3 1 tab PO DAILY 05/30/17 12/25/18 History [Calcium 600-Vit D3 800 Tab] Multivitamins, Thera [Multivitamin 1 tab PO DAILY@1800 05/30/17 12/25/18 History (formulary)] Vitamin E (Dl,Tocopheryl Acet) 400 unit PO DAILY@1800 05/30/17 12/25/18 History [Vitamin E] fentaNYL 25MCG/HR PATCH [Duragesic 1 patch TRANSDERM Q72H 11/02/17 12/25/18 History 25MCG/HR] rOPINIRole HCL [Requip] 2 mg PO HS 11/02/17 12/25/18 History ALPRAZolam [Xanax] 0.25 mg PO HS 01/08/18 12/25/18 History Furosemide [Lasix] 40 mg PO DAILY 03/27/18 12/25/18 History Ipratropium-Albuterol Nebulize 3 ml INHALATION RT-TID 08/11/18 12/25/18 History [Duoneb 0.5 mg-3 mg/3 ml Soln] Levothyroxine Sodium [Synthroid] 112 mcg PO DAILY@0630 #30 tab 09/10/18 Rx Metoprolol Tartrate [Lopressor] 50 mg PO TID #90 tab 09/10/18 12/25/18 Rx Amiodarone [Cordarone] 200 mg PO DAILY 12/25/18 12/25/18 History Aspirin [[place] Aspirin EC] 81 mg PO HS 12/25/18 12/25/18 History Docusate [Colace] 200 mg PO DAILY 12/25/18 12/25/18 History Ferrous Sulfate [Feosol] 325 mg PO BID 12/25/18 12/25/18 History HYDROcodone/APAP 10-325MG [[place] 1 tab PO Q6HR PRN 12/25/18 12/25/18 History 10-325] Allergies Allergy/AdvReac Type Severity Reaction Status Date / Time codeine AdvReac Confusion Verified 12/25/18 08:40 sulfamethoxazole AdvReac Nausea & Verified 12/25/18 08:40 [From Bactrim] Vomiting trimethoprim [From Bactrim] AdvReac Nausea & Verified 12/25/18 08:40 Vomiting Physical Exam Vitals: Vital Signs Temp Pulse Pulse Resp BP BP Pulse Ox 12/25/18 22:58 97.7 F 56 L 18 141/77 98 12/25/18 17:36 70 19 12/25/18 14:45 97.8 F 61 20 178/74 97 12/25/18 13:37 56 L 18 167/70 99 12/25/18 10:30 160/83 12/25/18 10:20 60 160/83 98 12/25/18 10:10 59 L 18 160/83 99 12/25/18 10:00 61 18 157/58 96 12/25/18 08:10 98.7 F 63 18 166/66 90 L Intake and Output 12/25/18 12/25/18 12/26/18 14:59 22:59 06:59 Intake Total 480 Output Total 300 Balance 180 Intake: Oral 480 Output: Urine 300 Other: Voiding Method Toilet Bedside Commode # Voids 1 Weight 88.451 kg PHYSICAL EXAMINATION: Patient is lying in the bed comfortably, no acute distress, awake alert and oriented.. HEENT: Normocephalic. Neck is supple. Pupils reactive. Nostrils clear. Oral cavity is moist. Ears reveal no drainage. Neck reveals no JVD, carotid bruits, or thyromegaly. CHEST EXAMINATION: Trachea is central. Symmetrical expansion. Bibasilar diminished air entry. Lung dukes clear to auscultation and percussion. CARDIAC: Normal S1, S2 with no gallops. No murmurs ABDOMEN: Soft. Bowel sounds normal. No organomegaly. No abdominal bruits. Extremities: reveal no edema. No clubbing or cyanosis Neurologically awake, alert, oriented x3 with well-coordinated movements. Difficulty in speech. No other focal deficits noted Skin: No rash or skin lesions. Psychiatric: Coperative. Nonsuicidal Musculoskeletal: No joint swelling or deformity. Normal range of motion. Results CBC & Chem 7: 12/25/18 09:51 12/25/18 09:51 Labs: Abnormal Lab Results - Last 24 Hours (Table) 12/25/18 12/25/18 12/25/18 Range/Units 09:51 09:51 09:51 RBC 3.39 L (3.80-5.40) m/uL Hgb 10.7 L (11.4-16.0) gm/dL MCV 100.8 H (80.0-100.0) fL Plt Count 62 L (150-450) k/uL Lymphocytes # 0.9 L (1.0-4.8) k/uL APTT 18.5 L (22.0-30.0) sec BUN 36 H (7-17) mg/dL Creatinine 1.16 H (0.52-1.04) mg/dL AST 72 H (14-36) U/L ALT 67 H (9-52) U/L Stool Occult Blood (Negative) 12/25/18 Range/Units 09:51 RBC (3.80-5.40) m/uL Hgb (11.4-16.0) gm/dL MCV (80.0-100.0) fL Plt Count (150-450) k/uL Lymphocytes # (1.0-4.8) k/uL APTT (22.0-30.0) sec BUN (7-17) mg/dL Creatinine (0.52-1.04) mg/dL AST (14-36) U/L ALT (9-52) U/L Stool Occult Blood Positive H (Negative) Thrombosis Risk Factor Assmnt - DVT/VTE Prophylaxis DVT/VTE Prophylaxis: Mechanical Prophylaxis ordered - Choose All That Apply Any of the Below Risk Factors Present?: Yes Each Factor Represents 1 point: Obesity (BMI >25) Other Risk Factors: Yes Each Risk Factor Represents 2 Points: Malignancy Each Risk Factor Represents 3 Points: Age 75 years or older Other congenital or acquired thrombophilia - If yes, enter type in comment: No Thrombosis Risk Factor Assessment Total Risk Factor Score: 6 Thrombosis Risk Factor Assessment Level: High Risk Assessment and Plan Assessment: Rectal bleed with acute blood loss anemia Possible diverticular bleed versus history of colon cancer Right adnexal mass rule out neoplasm COPD on home oxygen Chronic hypoxic respiratory failure secondary to COPD Paroxysmal atrial fibrillation not on anticoagulation due to GI bleed previously. Continue with amiodarone and metoprolol Hypertension Hyperlipidemia History of CVA/TIA with slight speech difficulty History of colon cancer in 2002 status post surgery and chemoradiation Pulmonary hypertension Chronic kidney disease stage III Hypothyroidism All that is of multiple joints Chronic back pain Previous history of smoking Stress urinary incontinence and chronic constipation DVT prophylaxis with SCDs due to GI bleed Plan: Patient will be continued on gentle hydration and monitor H&H. Clear liquid diet. GI was consulted for evaluation. Continue with home medications and PPI IV daily. Further recommendations based on the clinical course. Prognosis is guarded with multiple medical problems and comorbid conditions. Time with Patient: Greater than 30
[2018-12-26] MEDS: ALPRAZolam 0.25 MG TAB PO SCH ×2 (02:00→20:46)
[2018-12-26] MEDS: LATANOPROST 0.005% OPHTH DROPS 2.5 ML BTL BOTH EYES SCH ×2 (02:00→20:46)
[2018-12-26] MEDS: CITALOPRAM HYDROBROMIDE 20 MG TAB PO SCH ×2 (02:00→20:45)
[2018-12-26] MEDS: LEVOTHYROXINE 112 MCG TAB PO SCH (05:56)
[2018-12-26] MEDS: PANTOPRAZOLE 40 MG/10 ML VIAL IV SCH (08:11)
[2018-12-26] MEDS: IPRATROPIUM-ALBUTEROL 3 ML NEB INHALATION SCH ×3 (08:37→21:14)
[2018-12-26] MEDS: METOPROLOL TARTRATE 50 MG TAB PO SCH ×3 (09:38→21:15)
[2018-12-26] MEDS: AMIODARONE 200 MG TAB PO SCH (09:39)
[2018-12-26] MEDS: CALCIUM CARB-VIT D 500MG-200UN 1 EACH TAB PO SCH (09:39)
--- NOTE | 2018-12-26 09:39 | US ---
EXAMINATION TYPE: US pelvic complete DATE OF EXAM: 12/26/2018 COMPARISON: CT dated 12/25/2018 CLINICAL HISTORY: ct noted pelvic mass. . TECHNIQUE: Transabdominal sonographic images of the pelvis were acquired. Date of LMP: Postmenopausal EXAM MEASUREMENTS: Uterus: 4.0 x 1.5 x 2.2 cm Endometrial Stripe: 0.3 cm Right Adnexa: septated cystic mass measuring 11.1 x 5.2 x 4.7cm this is complex and highly suspiciou s with numerous thick and thin internal septations. Left Ovary: not visualized 1. Uterus: Anteverted, atrophied 2. Endometrium: not well visualized due to small uterine size 3. Right adnexa: septate cystic mass seen measurements above 4. Left Ovary: Obscured by overlying bowel gas, atrophy 5. Bilateral Adnexa: right adnexal mass 6. Posterior cul-de-sac: wnl IMPRESSION: Highly suspicious 11.1 cm complex right adnexal mass that should be considered ovarian ca rcinoma until proven otherwise. Oncologic oncologic. Again consultation is recommended with gynecolog ic oncology.
[2018-12-26] MEDS: POTASSIUM CHLORIDE ER 10 MEQ TAB.ER.PRT PO SCH (09:42)
[2018-12-26] MEDS: DOCUSATE 100 MG CAP PO SCH (09:43)
[2018-12-26 10:45] LABS: Basophils % (A) 1 %; Eosinophils # (A) 0.2 k/uL (0-0.7); Eosinophils % (A) 4 %; HCT 34.8 % (34.0-46.0); HGB 11.4 gm/dL (11.4-16.0); Lymphocytes % (A) 18 %; MCH 32.2 pg (25.0-35.0); MCHC 32.6 g/dL (31.0-37.0); MCV 98.8 fL (80.0-100.0); Mean Platelet Volume 9.8; Monocytes # (A) 0.4 k/uL (0-1.0); Monocytes % (A) 6 %; Neutrophils # (A) 3.8 k/uL (1.3-7.7); Neutrophils % (A) 68 %; RBC 3.52 m/uL (3.80-5.40); RDW 13.8 % (11.5-15.5); WBC 5.6 k/uL (3.8-10.6)
[2018-12-26 10:47] LABS: Platelet Count 56 k/uL (150-450)
[2018-12-26] MEDS: SODIUM CHLORIDE 0.9% 1,000 ML IV SCH (14:03)
--- NOTE | 2018-12-26 14:24 | CONS ---
CONSULTATION DATE OF CONSULTATION: 12/26/2018 This is an 83-year-old female 4, para 2-0-2-2, last menstrual period over 30 years ago. The patient presented to the emergency room yesterday with a history of bright red bleeding noted when she was on the toilet. She states that she went to have a bowel movement in the morning, denies any pelvic pain. Upon wiping herself, she noted bright red blood on the tissue as well as in the toilet. For this reason, she presented to the emergency room for further evaluation. Evaluation in the ER included a CT scan which suggests a complex right adnexal mass. LOAN MANAGER consultation was therefore requested. I became aware of that request this morning. The patient was seen at 8:00 am. REVIEW OF SYSTEMS: Is otherwise negative. PAST MEDICAL HISTORY: Is significant for asthma, COPD, chronic atrial fibrillation, history of colon cancer in 2001, status post debulking surgery, chemotherapy and radiation therapy. The patient has a history of hypothyroidism, cerebral vascular accident, hypertension, hyperlipidemia, and chronic anemia. PAST SURGICAL HISTORY: Significant for colon resection in 2001. She had a right hand machine accident in a shop approximately 40 years ago, had digits removed and skin grafting performed. She has also had orthopedic surgery on several of her joints. PAST OBSTETRIC HISTORY: Is significant for normal spontaneous vaginal deliveries x2 in the past. Patient had 2 miscarriages, both of which required D and C's in the 1st trimester. FAMILY HISTORY: The patient's mother has a history of breast cancer, there is also history of liver disease in the family. ALLERGIES: INCLUDE CODEINE TO WHICH REPORTS CONFUSION AND BACTRIM TO WHICH REPORTS NAUSEA AND VOMITING. SOCIAL HISTORY: The patient was a tobacco smoker for 20 years, 1-1/2 packs per day for a total of a 30 pack year history of tobacco. She denies alcohol or drug use. She lives in [place] with her son and his , and 2 grandchildren. CURRENT MEDICATIONS: Include 2 L of nasal cannula oxygen at home. The patient takes a daily, Fosamax, Celexa, Zocor, K-Dur, Fentanyl patch, Feosol, aspirin, Colace, vitamin D, E and multivitamin, fentanyl patch, Lasix, levothyroxine, albuterol inhaler. She also uses [place] for chronic pain. I would refer the reader to the chart for dosage information. EXAM: This is a pleasant white female who is 5 foot 4.5 inches, weight is 58.45 kg, pulse 59, respirations 18, blood pressure 149/70, temperature 98.3, 96% O2 saturation on 2 L of oxygen. The patient has poor dentition, no obvious thyromegaly, no cervical lymphadenopathy. CHEST: Clear to auscultation in all dukes anteriorly and posteriorly, slightly diminished bilateral bases. Breast exam reveals breasts to be bilaterally symmetric, no skin dimpling, nipple discharge, axillary adenopathy or discernible lesions or masses. The abdomen is obviously obese with old scars consistent with previous bowel surgery. There is tenderness in the right lower quadrant, no rebound, no guarding. There is no CVA tenderness. There are active bowel sounds noted. Extremities reveal diminished pulses, +1 edema. Normal reflexes. On pelvic exam, the cervix is small to palpation, uterus is very small, anteverted, mobile, and nontender. There is diffuse fullness in the right lower quadrant and tenderness, consistent with a right pelvic mass. Left adnexal region is negative. Rectal examination reveals no obvious rectal lesions or masses, although the posterior cul-de-sac is full. There is grossly positive blood on the rectal sample on examining glove. CT scan as noted suggests right adnexal mass. Pelvic ultrasound has been ordered and performed. Pelvic ultrasound reveals an 11.1 cm complex septated right adnexal mass, highly suspicious for malignancy from the radiographic criteria. Uterus is very small, anteverted. Left adnexa is unremarkable. Endometrial thickness cannot be measured secondary to senescent size of the uterus. No pelvic fluid is noted. Admitting hemoglobin 10.7. IMPRESSION: Complex 11 cm right adnexal mass, radiographically suspicious for malignancy. The patient has a history of colon cancer with subsequent surgery, radiation and chemotherapy. Code STATUS AT THIS TIME IS FULL CODE. Multiple additional medical problems as noted in the chart above, including cardiac and pulmonary disorders, chronic anemia and hypertension. PLAN: I have discussed the case with Dr. Sherwood, admitting physician. I have ordered the OVA- 1. I believe the patient would best be served by a LOAN MANAGER oncologist, as she has a history of a colon cancer, and likely if surgery is required, would require extensive staging surgery for ovarian cancer. OVA-1 test will yield additional information as to our index of suspicion for ovarian malignancy. Dr. Sherwood will discuss this with the patient and her family, further recommendations to follow. Thank you for the consultation. MMODL / IJN: [id number] /
[2018-12-26] MEDS ORDERED: MULTIVITAMINS, THERA 1 EACH TAB PO SCH (18:00)
[2018-12-26] MEDS ORDERED: VITAMIN E (DL,TOCOPHERYL ACET) 400 UNIT CAP PO SCH (18:00)
[2018-12-26] MEDS ORDERED: ATORVASTATIN 20 MG TAB PO SCH (21:00)
--- NOTE | 2018-12-26 21:53 | P.CONS ---
History of Present Illness - Reason for Consult Consult date: 12/26/18 Blood per rectum Requesting physician: Noa Sherwood - Chief Complaint Blood per rectum - History of Present Illness The patient is an 83-year-old female with a known history of hypertension, hyperlipidemia, atrial fibrillation COPD prior CVA/TIA, GERD, OA, hypothyroidism and history of colon cancer status post surgery and chemo and radiation therapy in 2001 who presented to the hospital due to complaints of bright red blood per rectum. The patient reports that she had one episode of painless bright red blood per rectum. She reports blood in the toilet and with wiping. Subsequently the patient has had no further episodes of blood per rectum. She denies any abdominal pain or cramping with the episode. Hemoglobin on presentation was found to be 10.7 and on repeat blood draw was found to be 11.4. She denies any prior episodes of GI bleeding. She is currently not on any anticoagulation therapy but does take aspirin daily. She denies any NSAID therapy. She believes her last colonoscopy was approximately [address] Monroe and significant for polypectomy. Review of Systems REVIEW OF SYSTEMS: CONSTITUTIONAL: Denies any fevers, chills, weight change or fatigue. CARDIOVASCULAR: Denies any chest pain, palpitations high or low blood pressures RESPIRATORY: Denies any shortness of breath, hemoptysis or cough. GENITOURINARY: No dysuria or hematuria. MUSCULOSKELETAL: No weakness reported. SKIN: Denies any new rashes or lesions, jaundice or pallor. PSYCHIATRIC: Denies any depression or anxiety. NEUROLOGY: Denies headache, denies any new focal deficits. EARS/NOSE/THROAT: No recent hearing change, congestion, nasal discharge or sore throat. EYES: No pain in eyes, discharge or change in vision. GASTROINTESTINAL: As per HPI. Past Medical History Past Medical History: Atrial Fibrillation, Asthma, Cancer, Heart Failure, COPD, CVA/TIA, Eye Disorder, GERD/Reflux, GI Bleed, Hyperlipidemia, Hypertension, Osteoarthritis (OA), Pneumonia, Renal Disease, Skin Disorder, Thyroid Disorder, Vascular Disorder Additional Past Medical History / Comment(s): GI bleed with acute blood loss anemia, thrombocytopenia, gastritis/duodenitis, 2001 colon cancer with surgery/ chemo and radiation, chronic hypoxic respiratory failure, home O2 at 2L/NC ATC, pulmonary HTN, pleurisy, chronic kidney disease stage III, CVA with slight speech difficulty, heart murmur, glaucoma bilaterally, hypothyroid, rosacia, UTIs, urine stress incontinence, constipation, arthritis multiple joints, chronic low back pain, past fall with L hip fracture and R patellar fracture, rib fracture, sinus problems. 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 done(donor site was abd), bilateral carpal tunnel releases, R patella fused d/t fracture, krista cataracts, colonoscopy/polypectomy Past Anesthesia/Blood Transfusion Reactions: No Reported Reaction Past Psychological History: No Psychological Hx Reported Additional Psychological History / Comment(s): pt stated she lives with son and his and 2 grandchildren. has home 02, cane/walker, shower chair . has landcare officer to help with showers. Smoking Status: Former smoker Past Alcohol Use History: None Reported Additional Past Alcohol Use History / Comment(s): Pt started smoking 1966,quit 1986, smoked 1.5 ppd Past Drug Use History: None Reported - Past Family History Father Family Medical History: Liver Disease Additional Family Medical History / Comment(s): etoh abuse-cirrhosis of the liver Mother Additional Family Medical History / Comment(s): brain aneurysm Medications and Allergies Home Medications Medication Instructions Recorded Confirmed Type Alendronate Sodium [Fosamax] 70 mg PO SCHMITT 11/30/16 12/25/18 History Citalopram Hydrobromide [CeleXA] 20 mg PO HS 11/30/16 12/25/18 History Latanoprost [Xalatan 0.005%] 1 drop BOTH EYES HS 11/30/16 12/25/18 History Potassium Chloride ER [K-Dur 10] 10 meq PO DAILY 11/30/16 12/25/18 History Simvastatin [Zocor] 40 mg PO HS 11/30/16 12/25/18 History Calcium Carbonate/Vitamin D3 1 tab PO DAILY 05/30/17 12/25/18 History [Calcium 600-Vit D3 800 Tab] Multivitamins, Thera [Multivitamin 1 tab PO DAILY@1800 05/30/17 12/25/18 History (formulary)] Vitamin E (Dl,Tocopheryl Acet) 400 unit PO DAILY@1800 05/30/17 12/25/18 History [Vitamin E] fentaNYL 25MCG/HR PATCH [Duragesic 1 patch TRANSDERM Q72H 11/02/17 12/25/18 History 25MCG/HR] rOPINIRole HCL [Requip] 2 mg PO HS 11/02/17 12/25/18 History ALPRAZolam [Xanax] 0.25 mg PO HS 01/08/18 12/25/18 History Furosemide [Lasix] 40 mg PO DAILY 03/27/18 12/25/18 History Ipratropium-Albuterol Nebulize 3 ml INHALATION RT-TID 08/11/18 12/25/18 History [Duoneb 0.5 mg-3 mg/3 ml Soln] Levothyroxine Sodium [Synthroid] 112 mcg PO DAILY@0630 #30 tab 09/10/18 Rx Metoprolol Tartrate [Lopressor] 50 mg PO TID #90 tab 09/10/18 12/25/18 Rx Amiodarone [Cordarone] 200 mg PO DAILY 12/25/18 12/25/18 History Aspirin [[place] Aspirin EC] 81 mg PO HS 12/25/18 12/25/18 History Docusate [Colace] 200 mg PO DAILY 12/25/18 12/25/18 History Ferrous Sulfate [Feosol] 325 mg PO BID 12/25/18 12/25/18 History HYDROcodone/APAP 10-325MG [[place] 1 tab PO Q6HR PRN 12/25/18 12/25/18 History 10-325] Allergies Allergy/AdvReac Type Severity Reaction Status Date / Time codeine AdvReac Confusion Verified 12/25/18 08:40 sulfamethoxazole AdvReac Nausea & Verified 12/25/18 08:40 [From Bactrim] Vomiting trimethoprim [From Bactrim] AdvReac Nausea & Verified 12/25/18 08:40 Vomiting Physical Exam Vitals: Vital Signs Temp Pulse Pulse Resp BP Pulse Ox 12/26/18 21:24 80 12/26/18 21:16 80 12/26/18 14:35 98.4 F 59 L 18 151/54 96 12/26/18 12:04 58 L 12/26/18 11:53 64 12/26/18 09:25 69 191/77 12/26/18 08:49 64 12/26/18 08:41 98 12/26/18 08:38 60 12 12/26/18 06:48 98.3 F 59 L 18 149/70 96 12/25/18 22:58 97.7 F 56 L 18 141/77 98 Intake and Output 12/26/18 12/26/18 12/26/18 06:59 14:59 22:59 Intake Total 600 Balance 600 Intake: Oral 600 Other: # Voids 3 4 1 # Bowel Movements 4 1 On physical examination, patient appears comfortable in no apparent distress. HEAD: Normocephalic, atraumatic. EYES: No scleral icterus. No conjunctival injection. MOUTH: No lesions, tongue midline. NECK: Trachea midline, no gross abnormalities. CHEST: Decreased air entry in all lung dukes. HEART: S1-S2 appreciated. ABDOMEN: Soft. Bowel sounds are positive. No organomegaly. No guarding or rigidity. EXTREMITIES: No pedal edema. SKIN: No rashes, no jaundice. NEUROLOGIC: Alert and oriented. Results CBC & Chem 7: 12/26/18 10:13 12/25/18 09:51 Labs: Abnormal Lab Results - Last 24 Hours (Table) 12/26/18 Range/Units 10:13 RBC 3.52 L (3.80-5.40) m/uL Plt Count 56 L (150-450) k/uL CT scan - abdomen: report reviewed Assessment and Plan (1) GI bleed Narrative/Plan: Patient presenting with one episode of painless rectal bleeding prior to presentation. No further episodes since being evaluated in the emergency department. Differential includes diverticular disease, bleeding AVMs, hemorrhoidal disease or other etiology. Current Visit: Yes Status: Acute Code(s): K92.2 - GASTROINTESTINAL HEMORRHAGE, UNSPECIFIED SNOMED Code(s): 60547272 (2) Anemia Narrative/Plan: Anemia of acute blood loss. Current Visit: No Status: Acute Code(s): D64.9 - ANEMIA, UNSPECIFIED SNOMED Code(s): 933825961 Plan: Supportive care Okay to advance diet as tolerated Continue to monitor hemoglobin and transfuse as needed Monitor for signs and symptoms of GI bleeding No plans for endoscopic evaluation at this time, patient to follow up with gastroenterology after discharge for discussion about possible colonoscopy for evaluation Thank you for allowing us to participate in the care of the patient we will continue to follow
[2018-12-26 22:42] VITALS: RESP 16
--- NOTE | 2018-12-26 23:36 | P.PN ---
Subjective Progress Note Date: 12/26/18 Principal diagnosis: Acute rectal bleed Right adnexal mass strong suspicion for malignancy Patient is a 83-year-old female with a known history of hypertension, hyperlipidemia, paroxysmal atrial fibrillation not on anticoagulation due to previous history of GI bleed, currently on aspirin, COPD, history of CVA/TIA, GERD, osteoarthritis, hypothyroidism and history of colon cancer status post surgery and chemo and radiation 2001, chronic hypoxic respiratory failure on home oxygen with another cannula, pulmonary hypertension, CK D stage III, history of CVA with slight speech difficulty, chronic low back pain and multiple other medical problems came to ER with the complaints of rectal bleeding. Patient went to use the bathroom for urination and suddenly she noticed bright blood in the toilet. Denied any abdominal pain. Patient also having left upper quadrant abdominal pain intermittently for the past 1 week. Denied any nausea vomiting. No hematemesis. FOBT is positive. patient is also on iron supplementation at home. No headache or dizziness or lightheadedness. No chest pain or shortness of breath. No active bleeding at this time. CT of abdomen pelvis showed suspicious of right adnexal lesion consistent neoplasm until proven otherwise. Focal mild ileus right lower quadrant air-fluid level. Underlying hepatocellular Disease. Hemoglobin 10.7 on admission. 12/26/2018 Currently patient denied any rectal bleeding. Patient did have bowel movement 2 which were dark as per nursing staff. Hemoglobin is stable actually increased to 11.4 today. GI is not falling for any endoscopic or colonoscopic this time. Recommended outpatient follow-up. Patient was seen by [facility] [employer] and ultrasound of the pelvis was done. Ultrasound of pelvis showed highly suspicious 11.1 cm complex right adnexal mass that she be considered ovarian carcinoma until clear and otherwise. OVA1 was ordered. Case discussed with Dr. Min, OBGYN. Discussed CT abdomen and ultrasound findings with the patient and also with the patient's daughter. If the patient wants to proceed for OBGYN oncology evaluation, she will need to be transferred to tertiary care facility. Currently patient is not sure whether she will go for any extensive surgery. Patient says that she will discuss with her family before making any final decision. Patient currently denied any complains of chest pain or shortness of breath. No nausea vomiting or abdominal pain. Tolerating oral diet. No headache or dizziness or lightheadedness. All other review of systems negative except the above. Current medications reviewed. Objective - Vital Signs Vital signs: Vital Signs Temp 98.4 F 12/26/18 14:35 Pulse 80 12/26/18 21:16 Resp 18 12/26/18 14:35 BP 151/54 12/26/18 14:35 Pulse Ox 96 12/26/18 14:35 Intake & Output 12/26/18 12/26/18 12/27/18 06:59 18:59 06:59 Intake Total 600 Output Total 300 Balance -300 600 Intake: Oral 600 Output: Urine 300 Other: # Voids 3 4 1 # Bowel Movements 4 1 - Exam PHYSICAL EXAMINATION: Patient is lying in the bed comfortably, no acute distress, awake alert and oriented.. HEENT: Normocephalic. Neck is supple. Pupils reactive. Nostrils clear. Oral cavity is moist. Ears reveal no drainage. Neck reveals no JVD, carotid bruits, or thyromegaly. CHEST EXAMINATION: Trachea is central. Symmetrical expansion. Bibasilar diminished air entry. Lung dukes clear to auscultation and percussion. CARDIAC: Normal S1, S2 with no gallops. No murmurs ABDOMEN: Soft. Bowel sounds normal. No organomegaly. No abdominal bruits. Extremities: reveal no edema. No clubbing or cyanosis Neurologically awake, alert, oriented x3 with well-coordinated movements. Difficulty in speech. No other focal deficits noted Skin: No rash or skin lesions. Psychiatric: Coperative. Nonsuicidal Musculoskeletal: No joint swelling or deformity. Normal range of motion. - Labs CBC & Chem 7: 12/26/18 10:13 12/25/18 09:51 Labs: Abnormal Lab Results - Last 24 Hours (Table) 12/26/18 Range/Units 10:13 RBC 3.52 L (3.80-5.40) m/uL Plt Count 56 L (150-450) k/uL Assessment and Plan Assessment: Rectal bleed with acute blood loss anemia. No active bleeding now. Hemoglobin is stable. No endoscopies/colonoscopy as per GI. Possible diverticular bleed versus history of colon cancer Right adnexal mass. Highly suspicious for ovarian malignancy. COPD on home oxygen Chronic hypoxic respiratory failure secondary to COPD Paroxysmal atrial fibrillation not on anticoagulation due to GI bleed previously. Continue with amiodarone and metoprolol Hypertension Hyperlipidemia History of CVA/TIA with slight speech difficulty History of colon cancer in 2002 status post surgery and chemoradiation Pulmonary hypertension Chronic kidney disease stage III Hypothyroidism All that is of multiple joints Chronic back pain Previous history of smoking Stress urinary incontinence and chronic constipation DVT prophylaxis with SCDs due to GI bleed Plan: Patient will be continued on gentle hydration and monitor H&H. Clear liquid diet and advance as tolerated. Continue with home medications and PPI IV daily. 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 Further recommendations based on the clinical course. Prognosis is guarded with multiple medical problems and comorbid conditions. Time with Patient: Greater than 30
[2018-12-27] MEDS: LEVOTHYROXINE 112 MCG TAB PO SCH (05:44)
[2018-12-27] MEDS: IPRATROPIUM-ALBUTEROL 3 ML NEB INHALATION SCH ×2 (07:30→14:11)
--- NOTE | 2018-12-27 09:47 | P.PN ---
Subjective Progress Note Date: 12/27/18 Principal diagnosis: Rectal bleeding, adnexal mass Patient slept well. She feels stronger this morning, no further bleeding noted. Objective - Vital Signs Vital signs: Vital Signs Temp 97.9 F 12/27/18 06:33 Pulse 66 12/27/18 07:42 Resp 16 12/27/18 06:33 BP 130/62 12/27/18 06:33 Pulse Ox 100 12/27/18 07:30 Intake & Output 12/26/18 12/27/18 12/27/18 18:59 06:59 18:59 Intake Total 600 240 Balance 600 240 Weight 87.56 kg Intake: Oral 600 240 Other: # Voids 4 1 # Bowel Movements 4 1 - Constitutional General appearance: Present: average body habitus, cooperative, obese - EENT Eyes: Present: PERRLA ENT: Present: hearing grossly normal - Neck Thyroid: bilateral: normal size - Respiratory Respiratory: bilateral: CTA - Cardiovascular Rhythm: regular - Gastrointestinal General gastrointestinal: Present: normal bowel sounds Localized gastrointestinal: tender: RUQ, mass: RUQ - Integumentary Integumentary: Present: normal - Neurologic Neurologic: Present: CNII-XII intact - Musculoskeletal Musculoskeletal: Present: generalized weakness - Psychiatric Psychiatric: Present: A&O x's 3, appropriate affect, intact judgment & insight - Labs CBC & Chem 7: 12/26/18 10:13 12/25/18 09:51 Labs: Abnormal Lab Results - Last 24 Hours (Table) 12/26/18 Range/Units 10:13 RBC 3.52 L (3.80-5.40) m/uL Plt Count 56 L (150-450) k/uL Assessment and Plan Assessment: History of rectal bleeding, history of colon cancer. 11 cm complex right adnexal mass identified sonographically. Patient appears improved this morning. No further rectal bleeding noted. Plan: Subsequent history obtained per the patient's daughter. Colonoscopy apparently performed several months ago, negative. I would be uncertain whether this adnexal mass was a recurrence of the colon cancer, or a second primary ovarian cancer. OVA-1 testing has been drawn and is pending. The family is contemplating transfer of care to [facility]. Gynecologic oncologist on staff there, Dr. Jemma Ruiz, would be the appropriate caregiver for this condition in my judgment. Family will make a decision today regarding transfer of care. Thank you for the consultation. Time with Patient: Less than 30
[2018-12-27] MEDS: DOCUSATE 100 MG CAP PO SCH (09:48)
[2018-12-27] MEDS: CALCIUM CARB-VIT D 500MG-200UN 1 EACH TAB PO SCH (09:49)
[2018-12-27] MEDS: POTASSIUM CHLORIDE ER 10 MEQ TAB.ER.PRT PO SCH (09:49)
[2018-12-27] MEDS: METOPROLOL TARTRATE 50 MG TAB PO SCH (09:49)
[2018-12-27] MEDS: AMIODARONE 200 MG TAB PO SCH (09:49)
[2018-12-27] MEDS: PANTOPRAZOLE 40 MG/10 ML VIAL IV SCH (09:49)
[2018-12-27 10:04] LABS: Basophils % (A) 0 %; Eosinophils # (A) 0.1 k/uL (0-0.7); Eosinophils % (A) 4 %; HCT 31.6 % (34.0-46.0); Hypochromasia Moderate; Lymphocytes # (A) 0.7 k/uL (1.0-4.8); Lymphocytes % (A) 18 %; MCH 31.7 pg (25.0-35.0); MCV 102.5 fL (80.0-100.0); Macrocytosis Slight; Mean Platelet Volume 8.6; Monocytes # (A) 0.2 k/uL (0-1.0); Monocytes % (A) 5 %; Neutrophils # (A) 2.7 k/uL (1.3-7.7); Neutrophils % (A) 70 %; RBC 3.08 m/uL (3.80-5.40); RDW 13.7 % (11.5-15.5); WBC 3.8 k/uL (3.8-10.6)
[2018-12-27 10:10] LABS: HGB 9.8 gm/dL (11.4-16.0); Platelet Count 59 k/uL (150-450)
[2018-12-27 10:24] LABS: Poikilocytosis (M) Present
[2018-12-27] MEDS: SODIUM CHLORIDE 0.9% 1,000 ML IV SCH (13:09)
[2018-12-27 15:30] VITALS: BP 172/77; PULSE 59; TEMP 97.6
--- NOTE | 2018-12-27 15:37 | DS ---
DISCHARGE SUMMARY FINAL DIAGNOSES: 1. Right adnexal cystic mass septated mass 11.1 x 5.2 x 4.7 cm, possibly primary, rule out metastasis. 2. History of rectal bleed with acute blood loss anemia, stable. No current workup or GI. 3. History of colon cancer. 4. COPD on home O2. 5. Chronic hypoxic respiratory failure. 6. Paroxysmal atrial fibrillation, not on anticoagulation, only on Plavix previously. 7. Hypertension. 8. Hyperlipidemia. 9. History of cerebrovascular accident, transient ischemic attack. 10.History of colon cancer in 2001, status post surgery, chemo, radiation. 11.Pulmonary hypertension. 12.Chronic kidney stage III. 13.Chronic hypothyroidism. 14.Chronic back pain. 15.Stress urinary incontinence and chronic constipation. 16.FULL CODE. DISCHARGE CONDITION: The patient will be discharged in stable condition with guarded prognosis: TOTAL TIME TAKEN: 35 minutes. DISPOSITION: Patient will be transferred to [facility] for further evaluation. HISTORY: This 83-year-old woman with a past medical of multiple medical problems, being followed by Dr. Maya in the outpatient setting, was admitted with GI bleed. Her hemoglobin was stable around 11.4 to 9.8. Gastroenterology saw the patient and recommend no workup currently and outpatient followup. However, the patient was found to have a cystic mass as described above in the CT scan which was confirmed on pelvic ultrasound. Dr. Min saw the patient and recommended referral to [facility] for further evaluation and treatment. I discussed the case at length with [facility] and the patient will be transferred to [facility] for further evaluation and treatment. The patient is stable. Overall prognosis is guarded. On exam, vital stable. Cardiovascular, S1 and S2. Abdomen is soft. Nervous system revealed no focal deficits. Please refer to the med list for current medications. MMODL / IJN: [id number] /
[2018-12-28] MEDS ORDERED: Alendronate Sodium [Fosamax] 70 MG PO SCH (07:00)
== END 2018-12-27 15:26 | disposition short-term general hospital (02) | DRG 378 ==
LOC: EC 08:07 → 4MS4W 12:27 → OBSVTOIN 12-27 09:42
PROVIDERS: ADMIT Internal Medicine; ATTEND Internal Medicine
DX: K62.5 Hemorrhage of anus and rectum (principal); I13.0 Hypertensive heart and chronic kidney disease with heart failure and stage 1 through stage 4 chronic kidney disease, or unspecified chronic kidney disease; J96.11 Chronic respiratory failure with hypoxia; K56.7 Ileus, unspecified; D62 Acute posthemorrhagic anemia; N83.8 Other noninflammatory disorders of ovary, fallopian tube and broad ligament; E03.9 Hypothyroidism, unspecified; E78.5 Hyperlipidemia, unspecified; G25.81 Restless legs syndrome; G89.29 Other chronic pain; H40.9 Unspecified glaucoma; I27.20 Pulmonary hypertension, unspecified; I48.0 Paroxysmal atrial fibrillation; I50.9 Heart failure, unspecified; J44.9 Chronic obstructive pulmonary disease, unspecified; K21.9 Gastro-esophageal reflux disease without esophagitis; N18.3 Chronic kidney disease, stage 3 (moderate); N39.3 Stress incontinence (female) (male); M54.5 Low back pain; K59.09 Other constipation; M19.90 Unspecified osteoarthritis, unspecified site; Z79.82 Long term (current) use of aspirin; Z79.83 Long term (current) use of bisphosphonates; Z79.890 Hormone replacement therapy; Z79.899 Other long term (current) drug therapy; Z80.3 Family history of malignant neoplasm of breast; Z85.038 Personal history of other malignant neoplasm of large intestine; Z86.73 Personal history of transient ischemic attack (TIA), and cerebral infarction without residual deficits; Z90.49 Acquired absence of other specified parts of digestive tract; Z92.21 Personal history of antineoplastic chemotherapy; Z92.3 Personal history of irradiation; Z99.81 Dependence on supplemental oxygen; Z98.42 Cataract extraction status, left eye; Z98.41 Cataract extraction status, right eye; Z87.440 Personal history of urinary (tract) infections; Z87.891 Personal history of nicotine dependence; Z88.5 Allergy status to narcotic agent; Z88.2 Allergy status to sulfonamides
CPT/HCPCS: 36415; 74177; 76856; 80053; 81003; 82272; 85025; 85610; 85730; 86850; 86900; 86901; 93005; 94640; 94760; 96374; 99285

== ENCOUNTER 2019-02-13 14:40 | Inpatient (IN) | payer MEDICARE ==
[2019-02-13] MEDS ORDERED: SODIUM CHLORIDE 0.9% 500 ML 500 ML IV STA (15:16)
[2019-02-13] MEDS ORDERED: PANTOPRAZOLE 40 MG/10 ML VIAL IVP STA (16:04)
[2019-02-13 16:22] LABS: Albumin 3.8 g/dL (3.5-5.0); Calcium 9.1 mg/dL (8.4-10.2); Potassium 4.9 mmol/L (3.5-5.1); Total Bilirubin 0.5 mg/dL (0.2-1.3)
[2019-02-13 16:25] LABS: Basophils % (A) 0 %; Eosinophils # (A) 0.2 k/uL (0-0.7); Eosinophils % (A) 4 %; HGB 10.8 gm/dL (11.4-16.0); Lymphocytes # (A) 0.9 k/uL (1.0-4.8); Lymphocytes % (A) 18 %; MCH 32.9 pg (25.0-35.0); MCHC 33.8 g/dL (31.0-37.0); Mean Platelet Volume 9.4; Monocytes # (A) 0.3 k/uL (0-1.0); Monocytes % (A) 6 %; Neutrophils # (A) 3.5 k/uL (1.3-7.7); Neutrophils % (A) 70 %; RBC 3.29 m/uL (3.80-5.40); RDW 14.4 % (11.5-15.5); WBC 5.1 k/uL (3.8-10.6)
[2019-02-13 16:28] LABS: MCV 97.2 fL (80.0-100.0); Platelet Count 65 k/uL (150-450)
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
[2019-02-13 17:44] LABS: INR 1.1 (<1.2); Prothrombin Time 11.2 sec (9.0-12.0)
[2019-02-13] MEDS ORDERED: NALOXONE 0.4 MG/ML 1 ML VIAL IV PRN (17:52)
--- NOTE | 2019-02-13 20:31 | ED ---
Medical Decision Making - Lab Data Result diagrams: 02/13/19 16:03 02/13/19 16:03 Lab Results 02/13/19 02/13/19 02/13/19 Range/Units 16:03 16:03 16:03 WBC 5.1 (3.8-10.6) k/uL RBC 3.29 L (3.80-5.40) m/uL Hgb 10.8 L (11.4-16.0) gm/dL Hct 32.0 L (34.0-46.0) % MCV 97.2 D (80.0-100.0) fL MCH 32.9 (25.0-35.0) pg MCHC 33.8 (31.0-37.0) g/dL RDW 14.4 (11.5-15.5) % Plt Count 65 L (150-450) k/uL Neutrophils % 70 % Lymphocytes % 18 % Monocytes % 6 % Eosinophils % 4 % Basophils % 0 % Neutrophils # 3.5 (1.3-7.7) k/uL Lymphocytes # 0.9 L (1.0-4.8) k/uL Monocytes # 0.3 (0-1.0) k/uL Eosinophils # 0.2 (0-0.7) k/uL Basophils # 0.0 (0-0.2) k/uL PT (9.0-12.0) sec INR (<1.2) APTT (22.0-30.0) sec Sodium 140 (137-145) mmol/L Potassium 4.9 (3.5-5.1) mmol/L Chloride 105 (98-107) mmol/L Carbon Dioxide 28 (22-30) mmol/L Anion Gap 7 mmol/L BUN 30 H (7-17) mg/dL Creatinine 1.06 H (0.52-1.04) mg/dL Est GFR (CKD-EPI)AfAm 57 (>60 ml/min/1.73 sqM) Est GFR (CKD-EPI)NonAf 49 (>60 ml/min/1.73 sqM) Glucose 91 (74-99) mg/dL Plasma Lactic Acid Onofre 1.4 (0.7-2.0) mmol/L Calcium 9.1 (8.4-10.2) mg/dL Magnesium 2.0 (1.6-2.3) mg/dL Total Bilirubin 0.5 (0.2-1.3) mg/dL AST 87 H (14-36) U/L ALT 65 H (9-52) U/L Alkaline Phosphatase 88 (38-126) U/L Troponin I (0.000-0.034) ng/mL Total Protein 7.0 (6.3-8.2) g/dL Albumin 3.8 (3.5-5.0) g/dL Stool Occult Blood (Negative) Blood Type Blood Type Recheck Antibody Screen Spec Expiration Date 02/13/19 02/13/19 02/13/19 Range/Units 16:03 16:03 16:03 WBC (3.8-10.6) k/uL RBC (3.80-5.40) m/uL Hgb (11.4-16.0) gm/dL Hct (34.0-46.0) % MCV (80.0-100.0) fL MCH (25.0-35.0) pg MCHC (31.0-37.0) g/dL RDW (11.5-15.5) % Plt Count (150-450) k/uL Neutrophils % % Lymphocytes % % Monocytes % % Eosinophils % % Basophils % % Neutrophils # (1.3-7.7) k/uL Lymphocytes # (1.0-4.8) k/uL Monocytes # (0-1.0) k/uL Eosinophils # (0-0.7) k/uL Basophils # (0-0.2) k/uL PT (9.0-12.0) sec INR (<1.2) APTT 20.5 L (22.0-30.0) sec Sodium (137-145) mmol/L Potassium (3.5-5.1) mmol/L Chloride (98-107) mmol/L Carbon Dioxide (22-30) mmol/L Anion Gap mmol/L BUN (7-17) mg/dL Creatinine (0.52-1.04) mg/dL Est GFR (CKD-EPI)AfAm (>60 ml/min/1.73 sqM) Est GFR (CKD-EPI)NonAf (>60 ml/min/1.73 sqM) Glucose (74-99) mg/dL Plasma Lactic Acid Onofre (0.7-2.0) mmol/L Calcium (8.4-10.2) mg/dL Magnesium (1.6-2.3) mg/dL Total Bilirubin (0.2-1.3) mg/dL AST (14-36) U/L ALT (9-52) U/L Alkaline Phosphatase (38-126) U/L Troponin I <0.012 (0.000-0.034) ng/mL Total Protein (6.3-8.2) g/dL Albumin (3.5-5.0) g/dL Stool Occult Blood (Negative) Blood Type AB Positive Blood Type Recheck No Antibody Screen NEGATIVE Spec Expiration Date 02/16/2019 - 230202/13/19 02/13/19 Range/Units 16:03 16:55 WBC (3.8-10.6) k/uL RBC (3.80-5.40) m/uL Hgb (11.4-16.0) gm/dL Hct (34.0-46.0) % MCV (80.0-100.0) fL MCH (25.0-35.0) pg MCHC (31.0-37.0) g/dL RDW (11.5-15.5) % Plt Count (150-450) k/uL Neutrophils % % Lymphocytes % % Monocytes % % Eosinophils % % Basophils % % Neutrophils # (1.3-7.7) k/uL Lymphocytes # (1.0-4.8) k/uL Monocytes # (0-1.0) k/uL Eosinophils # (0-0.7) k/uL Basophils # (0-0.2) k/uL PT 11.2 (9.0-12.0) sec INR 1.1 (<1.2) APTT (22.0-30.0) sec Sodium (137-145) mmol/L Potassium (3.5-5.1) mmol/L Chloride (98-107) mmol/L Carbon Dioxide (22-30) mmol/L Anion Gap mmol/L BUN (7-17) mg/dL Creatinine (0.52-1.04) mg/dL Est GFR (CKD-EPI)AfAm (>60 ml/min/1.73 sqM) Est GFR (CKD-EPI)NonAf (>60 ml/min/1.73 sqM) Glucose (74-99) mg/dL Plasma Lactic Acid Onofre (0.7-2.0) mmol/L Calcium (8.4-10.2) mg/dL Magnesium (1.6-2.3) mg/dL Total Bilirubin (0.2-1.3) mg/dL AST (14-36) U/L ALT (9-52) U/L Alkaline Phosphatase (38-126) U/L Troponin I (0.000-0.034) ng/mL Total Protein (6.3-8.2) g/dL Albumin (3.5-5.0) g/dL Stool Occult Blood Positive H (Negative) Blood Type Blood Type Recheck Antibody Screen Spec Expiration Date - EKG Data -: EKG Interpreted by Me (and dr carrillo) EKG Comments: Ventricular rate 61, FL interval 162, QRS 164, QT/QTc 486/49. Normal sinus rhythm, left bundle-branch block. Patient has a history of left lower quadrant block. No concern for acute ischemia. Disposition Clinical Impression: Lower GI bleed Disposition: ADMITTED IP TO THIS HOSP Condition: Serious Is patient prescribed a controlled substance at d/c from ED?: No
[2019-02-13 21:50] VITALS: BMI 30.2
[2019-02-13] MEDS ORDERED: HYDROcodone/APAP 10-325MG 1 EACH TAB PO ONE (22:40)
[2019-02-13] MEDS ORDERED: ALPRAZolam 0.25 MG TAB PO STA (22:40)
[2019-02-13] MEDS: AMIODARONE 200 MG TAB PO SCH (23:12)
[2019-02-13] MEDS: METOPROLOL TARTRATE 50 MG TAB PO SCH (23:12)
[2019-02-13] MEDS: LATANOPROST 0.005% OPHTH DROPS 2.5 ML BTL BOTH EYES SCH (23:13)
[2019-02-13] MEDS: SODIUM CHLORIDE 0.9% 1,000 ML IV SCH (23:25)
[2019-02-14] MEDS: LEVOTHYROXINE 112 MCG TAB PO SCH (05:48)
[2019-02-14] MEDS: HYDROcodone/APAP 10-325MG 1 EACH TAB PO PRN ×2 (05:48→16:33)
--- NOTE | 2019-02-14 07:59 | HP ---
HISTORY AND PHYSICAL DATE OF SERVICE: 02/13/2019 CHIEF COMPLAINT: GI bleed. HISTORY OF PRESENT ILLNESS: This 83-year-old woman with a past medical history of multiple medical problems such as history of atrial fibrillation, history of asthma, CHF, COPD, CVA, TIA, history of GERD, history of GI bleed, hyperlipidemia, history of DJD being followed by Dr. Maya in the outpatient setting recently admitted to [facility] with complaints of features of right adnexal cystic mass 11 x 4 x 4.7 cm. The SECURITY PATROL DRIVER was consulted and subsequently patient transferred to [facility] for further evaluation and treatment. According to the family, it was found to be a cyst and recommended outpatient follow up but the family could not find an SECURITY PATROL DRIVER for followup because of insurance reasons. Currently the patient is complaining of lower gastrointestinal bleed and the patient has noted bright red blood with a bowel movement and patient taken to [facility] and admitted for further evaluation and treatment. Patient unable to give coherent history. Most of the history taken from my discussion with staff and review of chart at this time. There is no history of fever, rigors or chills. No history of headache, loss of consciousness. Hemoglobin is 10.8. The baseline hemoglobin during the last admission was around 9.8. It has gone down to 6.8, as well. PAST MEDICAL HISTORY: History of atrial fibrillation, history of asthma, CHF, COPD, CVA, TIA, history of GERD, GI bleed, hypertension, hyperlipidemia, history of osteoarthritis, history of hypothyroidism, vascular disorder, GI bleed. MEDICATION: Medications prior to admission include home medications are: 1. Requip 2 mg p.o. q.h.s. 2. Fentanyl patch 25 mcg q.72h. 3. Vitamin E 400 units daily. 4. Zocor 40 mg q.h.s. 5. K-Dur 10 mEq p.o. 6. Multivitamins 1 p.o. daily. 7. Lopressor 50 mg p.o. t.i.d. 8. Synthroid 220 mcg. 9. Xalatan 0.05 1 drop both eyes q.h.s. 10.DuoNeb t.i.d. 11.[place] 10 mg q.6h p.r.n. 12.Lasix 40 mg. 13.Iron sulfate 320 mg p.o. b.i.d. 14.Pepcid 20 mg b.i.d. 15.Colace 200 mg b.i.d. 16.Celexa 20 mg daily. 17.Vitamin D3 1 tab p.o. daily. 18.Ecotrin 81 mg. 19.Cordarone 200 mg p.o. b.i.d. 20.Fosamax 21.Xanax 0.5 mg q.h.s. ALLERGIES: CODEINE AND BACTRIM. FAMILY HISTORY: History of liver disease. ETOH, cirrhosis in the family. SOCIAL HISTORY: Previous history of smoking. No history of current smoking. REVIEW OF SYSTEM: ENT: Diminished hearing and vision. CARDIOVASCULAR: No angina. Respiration: No cough. GI as mentioned earlier. mentioned earlier. CENTRAL NERVOUS SYSTEM: No numbness or weakness. ALLERGY/IMMUNOLOGY: No asthma or hayfever. MUSCULOSKELETAL: As mentioned earlier. HEMATOLOGY/ONCOLOGY: No history of anemia. ENDOCRINE: As mentioned earlier. CONSTITUTIONAL: As mentioned earlier. Dermatology: Negative. Rheumatology: Negative. Psychiatry: As mentioned earlier. PHYSICAL EXAMINATION: GENERAL: Alert, oriented x2. Pulse 60, blood pressure 155/82, respiration 18, temperature is 98.2, pulse ox 98% on room air. HEENT: Conjunctivae pale. Oral mucosa moist. NECK is no jugular venous distention. No carotid bruit. No lymph node enlargement. Cardiovascular: S1-S2 muffled. Respiration: Breath sounds diminished in the bases. A few scattered rhonchi and crackles. ABDOMEN: Soft, obese, nontender. No mass palpable. LEGS: No edema. No swelling. CENTRAL NERVOUS SYSTEM: Higher functions as mentioned earlier. Moves all 4 limbs. No focal deficits. Lymphatics: No lymph nodes palpable in the neck, axillae or groin. Skin: No ulcer. No rash. No bleeding. JOINTS: No active deforming arthropathy. LAB: WBC 10.8, platelets 65, INR is 1.1, creatinine is 1.06, AST is 87, ALT is 65. Stool OB is positive. ASSESSMENT: 1. Lower gastrointestinal bleeding for evaluation. 2. Acute on chronic gastrointestinal bleed with acute blood loss anemia. 3. Increased creatinine with chronic kidney disease stage III. 4. History of recent right adnexal cystic mass evaluated by [facility] deemed to be benign. Reports are not available. 5. History of colon cancer. 6. History of chronic obstructive pulmonary disease, on home O2. 7. Chronic hypoxic respiratory failure. 8. Paroxysmal atrial fibrillation, not on anticoagulation, only on Plavix previously. 9. Hypertension. 10.Hyperlipidemia. 11.History of cerebrovascular accident, transient ischemic attack. 12.History of colon cancer in 2001, status post surgery, chemoradiation. 13.Pulmonary hypertension. 14.Hypothyroidism. 15.Chronic back pain. 16.Stress urinary incontinence and chronic constipation. 17.FULL CODE. RECOMMENDATIONS AND DISCUSSION: In this 83-year-old woman who presented with multiple complex medical issues, at this time I recommend to continue current medications, continue symptomatic treatment. Otherwise, I recommend stop the aspirin, hold aspirin and Gastroenterology consultation for possible endoscopies and further evaluation. Otherwise, the patient will get SECURITY PATROL DRIVER evaluation as mentioned earlier. We will continue to monitor. The CT scan of the pelvis may be repeated for comparison purposes. Otherwise, I would recommend resume the home medications. Otherwise, H&H q.6 and transfuse on periodic basis. Prognosis guarded because of multiple complex medical issues. Further recommendations to follow. We will hold the vitamin C as well. Otherwise, continue the rest of medications. Further recommendations to follow. MMODL / IJN: [id number] / HARISH
[2019-02-14] MEDS: IOPAMIDOL-300 CONTRAST 30 ML VIAL (ORAL USE) PO PRN ×2 (08:29→09:34)
[2019-02-14] MEDS: METOPROLOL TARTRATE 50 MG TAB PO SCH ×3 (08:31→21:26)
[2019-02-14] MEDS: FERROUS SULFATE 325 MG TAB PO SCH ×2 (08:31→21:26)
[2019-02-14] MEDS: PANTOPRAZOLE 40 MG/10 ML VIAL IV SCH (08:31)
[2019-02-14] MEDS: FUROSEMIDE 40 MG TAB PO SCH (08:31)
[2019-02-14] MEDS: AMIODARONE 200 MG TAB PO SCH ×2 (08:31→21:26)
[2019-02-14] MEDS: CITALOPRAM HYDROBROMIDE 20 MG TAB PO SCH (08:31)
[2019-02-14] MEDS: POTASSIUM CHLORIDE ER 10 MEQ TAB.ER.PRT PO SCH (08:32)
[2019-02-14] MEDS: IPRATROPIUM-ALBUTEROL 3 ML NEB INHALATION SCH ×3 (08:44→21:04)
[2019-02-14] MEDS: SODIUM CHLORIDE 0.9% 1,000 ML IV SCH (09:34)
--- NOTE | 2019-02-14 10:51 | CT ---
EXAMINATION TYPE: CT abdomen pelvis w con DATE OF EXAM: 02/14/2019 REFERENCE: Previous study dated 12/25/2018 HISTORY: GI bleeding HISTORY: Colon cancer, GI bleeding REFERENCE: NONE CT DLP: 928.40 mGy Automated exposure control for dose reduction was used. TECHNIQUE: Helical acquisition through the abdomen and pelvis was obtained following the oral ingesti on of with Oral Contrast and following intravenous administration of 80 ml mL of Isovue 300. The data was reformatted in axial, coronal and sagittal projections. FINDINGS: There is some dependent atelectasis in the dependent portions of the lungs. There is a sca nt right-sided pleural effusion. There is no pericardial fluid. The heart is mildly enlarged. There is a small hiatal hernia present. Within the abdomen, the liver is normal in size. There are numerous low attenuating lesions within al l segments of the liver, unchanged from previous. The gallbladder is mildly distended. The spleen is unremarkable. Both adrenal glands are normal. There is a stable 1.5 cm cyst in the mid polar region of the left kidney. There are 2 smaller cysts w ithin the right kidney. The pancreas appears normal. There is mild to moderate atheromatous calcification of the visualized arterial tree. There is no sig nificant retroperitoneal, iliac or inguinal adenopathy. The bladder is unremarkable. The uterus appears atrophic. There is a stable, complex right adnexal mass measuring 10.7 cm. Previou sly this was measured at 10.9 cm. There are scattered diverticula within the sigmoid colon without radiographic evidence of diverticuli tis. The appendix is not visualized with certainty. Small bowel loops are normal in caliber. Duodenal diverticulum in the second part of the duodenum is again noted. No free fluid and no free air is seen. There is been a hip pinning on the left. There is degenerative disc disease and facet arthropathy as well as hypertrophic spondylosis within t he spine. There are stable wedge compression fractures of the T11 and L1 vertebral bodies. IMPRESSION: 1. STABLE RIGHT ADNEXAL MASS SHOULD STILL BE CONSIDERED MALIGNANT UNTIL PROVEN OTHERWISE. 2. MULTIPLE, STABLE CYSTIC LESIONS IN THE LIVER AND KIDNEYS. 3. SMALL DIVERTICULUM INVOLVING THE SECOND PART OF THE DUODENUM. 4. UNCOMPLICATED DIVERTICULOSIS OF THE SIGMOID COLON. 5. DEGENERATIVE CHANGES WITHIN THE SPINE WITH 2, STABLE WEDGE COMPRESSION FRACTURES OF THE T11 AND L1 VERTEBRAL BODIES.
[2019-02-14 11:37] LABS: Appearance,Urine Clear (Clear); Bilirubin,Urine Negative (Negative); Blood,Urine Negative (Negative); Color,Urine Light Yellow; Glucose,Urine (UA) Negative (Negative); Ketones,Urine Negative (Negative); Leukocyte Esterase,Urine Negative (Negative); Nitrite,Urine Negative (Negative); Protein,Urine Negative (Negative); Specific Gravity,Urine 1.018 (1.001-1.035); Urobilinogen,Urine <2.0 mg/dL (<2.0)
[2019-02-14 12:22] LABS: Calcium 8.8 mg/dL (8.4-10.2); Potassium 4.3 mmol/L (3.5-5.1)
[2019-02-14 12:44] LABS: Basophils % (A) 1 %; Eosinophils # (A) 0.2 k/uL (0-0.7); Eosinophils % (A) 5 %; HCT 28.7 % (34.0-46.0); Lymphocytes # (A) 0.9 k/uL (1.0-4.8); Lymphocytes % (A) 22 %; MCH 30.7 pg (25.0-35.0); MCV 95.7 fL (80.0-100.0); Mean Platelet Volume 12.2; Monocytes # (A) 0.3 k/uL (0-1.0); Monocytes % (A) 8 %; Neutrophils # (A) 2.4 k/uL (1.3-7.7); Neutrophils % (A) 62 %; RDW 15.9 % (11.5-15.5)
[2019-02-14 12:45] LABS: HGB 9.2 gm/dL (11.4-16.0); Platelet Count 61 k/uL (150-450)
[2019-02-14 15:35] VITALS: RESP 18
[2019-02-14] MEDS: MULTIVITAMINS, THERA 1 EACH TAB PO SCH (17:25)
[2019-02-14] MEDS: ALPRAZolam 0.25 MG TAB PO SCH (21:25)
[2019-02-14] MEDS: ATORVASTATIN 20 MG TAB PO SCH (21:26)
[2019-02-14] MEDS: LATANOPROST 0.005% OPHTH DROPS 2.5 ML BTL BOTH EYES SCH (22:04)
--- NOTE | 2019-02-14 23:20 | PN ---
PROGRESS NOTE DATE OF SERVICE: 02/14/2019 This 83-year-old woman who was admitted with GI bleed also had a cystic ovarian mass which was evaluated at [facility]. The patient is being closely monitored at this time and abdominal pelvis CAT scan was repeated which showed similar findings. No chest pain. No palpitations. No fever. The patient also being evaluated by Gastroenterology at this time. EXAM: Alert and oriented times three. Pulse is 56, blood pressure 151/81, respiration 18, temperature 97.4, pulse ox 99% on 2 L. HEENT: Conjunctivae normal. NECK: No jugular venous distention. CARDIOVASCULAR: S1, S2 muffled. RESPIRATORY: Breath sounds diminished in the bases. Bilateral scattered rhonchi and crackles. Abdomen is soft, nontender. No mass palpable. Legs are no edema, no swelling. CENTRAL NERVOUS SYSTEM: No focal deficits. LAB STUDIES: WBC 4, hemoglobin 9.2, platelets 61. Sodium 137, potassium 4.3. Stool OB is positive. ASSESSMENT: 1. Lower gastrointestinal bleeding for evaluation. 2. Possibly diverticular. 3. Acute on chronic gastrointestinal bleed with blood-loss anemia. 4. Increased creatinine with chronic kidney stage III. 5. History of recent right adnexal cystic mass evaluated in [facility], deemed to be benign. Reports are not available. 6. History of colon cancer. 7. History of chronic obstructive pulmonary disease, on home O2. 8. History of chronic hypoxic respiratory failure on 2 L nasal cannula. 9. Paroxysmal atrial fibrillation, not on anticoagulation. Already on Plavix previously. 10.Hypertension. 11.Hyperlipidemia. 12.History of cerebrovascular accident, transient ischemic attack. 13.History of colon cancer in 2001, status post surgery, chemoradiation. 14.Pulmonary hypertension. 15.Hypothyroidism. 16.History of chronic back pain. 17.History of stress urine incontinence and chronic constipation. 18.FULL CODE. RECOMMENDATIONS AND DISCUSSION: Recommend to continue current medications, symptomatic treatment, management. Gastroenterology evaluation. Repeat labs. Hemoglobin is 9.2 today. Platelets 61. Continue to monitor. Guarded prognosis. Further recommendations to follow. MMODL / IJN: [id number] /
[2019-02-15] MEDS: SODIUM CHLORIDE 0.9% 1,000 ML IV SCH ×2 (04:23→21:41)
[2019-02-15] MEDS: POTASSIUM CHLORIDE ER 10 MEQ TAB.ER.PRT PO SCH (07:17)
[2019-02-15] MEDS: FUROSEMIDE 40 MG TAB PO SCH (07:17)
[2019-02-15] MEDS: METOPROLOL TARTRATE 50 MG TAB PO SCH ×3 (07:17→21:40)
[2019-02-15] MEDS: PANTOPRAZOLE 40 MG/10 ML VIAL IV SCH (07:17)
[2019-02-15] MEDS: LEVOTHYROXINE 112 MCG TAB PO SCH (07:17)
[2019-02-15] MEDS: AMIODARONE 200 MG TAB PO SCH ×2 (07:17→21:40)
[2019-02-15] MEDS: FERROUS SULFATE 325 MG TAB PO SCH ×2 (07:18→21:39)
[2019-02-15] MEDS: CITALOPRAM HYDROBROMIDE 20 MG TAB PO SCH (07:18)
[2019-02-15] MEDS: IPRATROPIUM-ALBUTEROL 3 ML NEB INHALATION SCH ×3 (07:27→19:26)
[2019-02-15 12:00] LABS: Calcium 8.9 mg/dL (8.4-10.2); Potassium 4.6 mmol/L (3.5-5.1)
[2019-02-15 12:07] LABS: Anisocytosis Slight; Basophils % (A) 1 %; Eosinophils # (A) 0.2 k/uL (0-0.7); Eosinophils % (A) 4 %; HCT 30.6 % (34.0-46.0); HGB 9.9 gm/dL (11.4-16.0); Hypochromasia Slight; Lymphocytes # (A) 0.8 k/uL (1.0-4.8); Lymphocytes % (A) 16 %; MCH 30.9 pg (25.0-35.0); MCHC 32.2 g/dL (31.0-37.0); Macrocytosis Slight; Mean Platelet Volume 12.1; Monocytes # (A) 0.4 k/uL (0-1.0); Monocytes % (A) 8 %; Neutrophils # (A) 3.4 k/uL (1.3-7.7); Neutrophils % (A) 70 %; RBC 3.19 m/uL (3.80-5.40); RDW 16.2 % (11.5-15.5); WBC 4.8 k/uL (3.8-10.6)
[2019-02-15 12:08] LABS: Platelet Count 54 k/uL (150-450)
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
[2019-02-15] MEDS: MULTIVITAMINS, THERA 1 EACH TAB PO SCH (16:53)
[2019-02-15] MEDS: HYDROcodone/APAP 10-325MG 1 EACH TAB PO PRN (18:00)
--- NOTE | 2019-02-15 18:33 | PN ---
PROGRESS NOTE DATE OF SERVICE: 02/15/2019 This 83-year-old woman with a past medical history of multiple medical problems was admitted with GI bleed. Dr. Roman is following the patient closely. The hemoglobin is rather stable at this time at 9.9. No chest pain. No palpitations. No fever. PHYSICAL EXAM: Alert and oriented x2. Pulse 60. Blood pressure 151/71, respiration 18, temperature 98.4, pulse ox 98% on 2 L. HEENT is conjunctivae normal. Oral mucosa moist. Neck is no jugular venous distention. No carotid bruit. No lymph node enlargement. CARDIOVASCULAR: S1, S2 muffled. RESPIRATORY: Breath sounds diminished in the bases, a few scattered rhonchi. No crackles. Abdomen is soft. Nontender. Central nervous system: No focal deficits. LAB STUDIES: WBC 12.2, hemoglobin 9.9, platelets of 54. ASSESSMENT: 1. Lower gastrointestinal bleeding for evaluation. 2. Possibly diverticular bleed. 3. Acute on chronic gastrointestinal bleed with blood-loss anemia. 4. Increased creatinine with chronic kidney stage III. 5. History of recent right adnexal cystic mass evaluated at [facility], deemed to be benign, reports not available. 6. History of colon cancer. 7. History of chronic obstructive pulmonary disease on home O2. 8. History of chronic hypoxic respiratory failure on 2 L nasal cannula. 9. Paroxysmal atrial fibrillation, not on anticoagulation, already on Plavix previously. 10.Hypertension. 11.Hyperlipidemia. 12.History of cerebrovascular accident, transient ischemic attack. 13.History of colon cancer in 2001, status post surgery, chemoradiation. 14.History of pulmonary hypertension. 15.Hypothyroidism. 16.History of chronic low back pain. 17.History of stress urine incontinence and chronic constipation. 18.FULL CODE. RECOMMENDATIONS AND DISCUSSION: Recommend to continue current medications. Continue symptomatic treatment. Otherwise at this time I recommend monitor hemoglobin closely. Closely follow with Gastroenterology. Prognosis guarded. Further recommendations to follow. Dr. Alfonso will follow. MMODL / IJN: [id number] /
[2019-02-15] MEDS: ALPRAZolam 0.25 MG TAB PO SCH (21:41)
[2019-02-15] MEDS: LATANOPROST 0.005% OPHTH DROPS 2.5 ML BTL BOTH EYES SCH (21:41)
[2019-02-15] MEDS: ATORVASTATIN 20 MG TAB PO SCH (21:41)
[2019-02-16] MEDS: IPRATROPIUM-ALBUTEROL 3 ML NEB INHALATION SCH ×3 (07:13→20:38)
[2019-02-16] MEDS: AMIODARONE 200 MG TAB PO SCH (09:27)
[2019-02-16] MEDS: METOPROLOL TARTRATE 50 MG TAB PO SCH ×2 (09:27→15:32)
[2019-02-16] MEDS: CITALOPRAM HYDROBROMIDE 20 MG TAB PO SCH (09:27)
[2019-02-16] MEDS: FERROUS SULFATE 325 MG TAB PO SCH (09:27)
[2019-02-16] MEDS: FUROSEMIDE 40 MG TAB PO SCH (09:27)
[2019-02-16] MEDS: POTASSIUM CHLORIDE ER 10 MEQ TAB.ER.PRT PO SCH (09:27)
[2019-02-16] MEDS: PANTOPRAZOLE 40 MG/10 ML VIAL IV SCH (09:27)
[2019-02-16] MEDS: LEVOTHYROXINE 112 MCG TAB PO SCH (09:33)
[2019-02-16 09:39] LABS: Calcium 8.6 mg/dL (8.4-10.2); Potassium 4.3 mmol/L (3.5-5.1)
[2019-02-16 09:43] LABS: Basophils % (A) 0 %; Eosinophils # (A) 0.2 k/uL (0-0.7); Eosinophils % (A) 3 %; HGB 10.6 gm/dL (11.4-16.0); Lymphocytes # (A) 1.1 k/uL (1.0-4.8); Lymphocytes % (A) 23 %; MCH 31.5 pg (25.0-35.0); MCHC 32.1 g/dL (31.0-37.0); Mean Platelet Volume 9.3; Monocytes # (A) 0.3 k/uL (0-1.0); Monocytes % (A) 7 %; Neutrophils # (A) 2.9 k/uL (1.3-7.7); Neutrophils % (A) 64 %; RBC 3.37 m/uL (3.80-5.40); RDW 13.8 % (11.5-15.5); WBC 4.6 k/uL (3.8-10.6)
[2019-02-16 09:44] LABS: Platelet Count 46 k/uL (150-450)
[2019-02-16] MEDS: SODIUM CHLORIDE 0.9% 1,000 ML IV SCH (13:44)
[2019-02-16] MEDS: MULTIVITAMINS, THERA 1 EACH TAB PO SCH (15:32)
[2019-02-16 17:11] VITALS: BP 155/66; PULSE 71; TEMP 98.3
[2019-02-16] MEDS: HYDROcodone/APAP 10-325MG 1 EACH TAB PO PRN (17:21)
== END 2019-02-16 18:31 | disposition home or self-care (01) | DRG 378 ==
LOC: SUPCPDRO 14:40 → EC 14:40 → 4MS4W 18:09
PROVIDERS: ADMIT Hospitalist; ATTEND Hospitalist
DX: K57.31 Diverticulosis of large intestine without perforation or abscess with bleeding (principal); D62 Acute posthemorrhagic anemia; J96.11 Chronic respiratory failure with hypoxia; I13.0 Hypertensive heart and chronic kidney disease with heart failure and stage 1 through stage 4 chronic kidney disease, or unspecified chronic kidney disease; I38 Endocarditis, valve unspecified; E03.9 Hypothyroidism, unspecified; E78.5 Hyperlipidemia, unspecified; G89.29 Other chronic pain; H91.90 Unspecified hearing loss, unspecified ear; I27.20 Pulmonary hypertension, unspecified; I48.0 Paroxysmal atrial fibrillation; I50.9 Heart failure, unspecified; J44.9 Chronic obstructive pulmonary disease, unspecified; K21.9 Gastro-esophageal reflux disease without esophagitis; K59.09 Other constipation; N18.3 Chronic kidney disease, stage 3 (moderate); N39.3 Stress incontinence (female) (male); N83.9 Noninflammatory disorder of ovary, fallopian tube and broad ligament, unspecified; Z79.82 Long term (current) use of aspirin; Z79.83 Long term (current) use of bisphosphonates; Z79.890 Hormone replacement therapy; Z79.899 Other long term (current) drug therapy; Z85.038 Personal history of other malignant neoplasm of large intestine; Z86.73 Personal history of transient ischemic attack (TIA), and cerebral infarction without residual deficits; Z87.891 Personal history of nicotine dependence; Z92.21 Personal history of antineoplastic chemotherapy; Z92.3 Personal history of irradiation; Z99.81 Dependence on supplemental oxygen; Z98.1 Arthrodesis status; Z89.029 Acquired absence of unspecified finger(s); Z98.42 Cataract extraction status, left eye; Z98.41 Cataract extraction status, right eye; H40.9 Unspecified glaucoma; Z91.81 History of falling; M15.9 Polyosteoarthritis, unspecified; M54.9 Dorsalgia, unspecified; Z87.01 Personal history of pneumonia (recurrent); Z87.440 Personal history of urinary (tract) infections; L71.9 Rosacea, unspecified; Z86.010 Personal history of colon polyps; Z79.891 Long term (current) use of opiate analgesic; Z81.1 Family history of alcohol abuse and dependence; Z82.0 Family history of epilepsy and other diseases of the nervous system
CPT/HCPCS: 36415; 74177; 80048; 80053; 81003; 82272; 83605; 83735; 84484; 85025; 85610; 85730; 86850; 86900; 86901; 93005; 94640; 94760; 96361; 96374; 99285

== ENCOUNTER 2019-06-14 10:35 | Inpatient (IN) | payer MEDICARE ==
[2019-06-14] MEDS ORDERED: IPRATROPIUM-ALBUTEROL 3 ML NEB INHALATION STA (10:55)
--- NOTE | 2019-06-14 11:00 | ED ---
SOB HPI - General Source: patient, family, RN notes reviewed Mode of arrival: wheelchair Limitations: no limitations <Anderson Hannon - Last Filed: 06/14/19 13:13> <Jose Antonio Alonso - Last Filed: 06/14/19 13:31> - General Chief Complaint: Shortness of Breath Stated Complaint: BRADLEY Time Seen by Provider: 06/14/19 10:49 - History of Present Illness Initial Comments: This an 83-year-old female presents emergency Department chief complaint of shortness of breath. Patient had a slight cough last couple days but woke up today and had increased dyspnea. Patient does have a history of A. fib, COPD/asthma, CHF hypertension, hyperlipidemia. Patient did do reading treatment just prior arrival which helped some. She denies any increase in leg swelling out of the usual. Patient states that she has a nonproductive cough. Denies ear pain, chest pain, headache or dizziness. Patient states that her general activities therapist is , she does see a current plodder operator.Patient does state that she is options apparently at home 2 L. (Anderson Hannon) - Related Data Home Medications Medication Instructions Recorded Confirmed Alendronate Sodium [Fosamax] 70 mg PO SCHMITT 11/30/16 06/14/19 Citalopram Hydrobromide [CeleXA] 20 mg PO DAILY 11/30/16 06/14/19 Latanoprost [Xalatan 0.005%] 1 drop BOTH EYES HS 11/30/16 06/14/19 Potassium Chloride ER [K-Dur 10] 10 meq PO DAILY 11/30/16 06/14/19 Simvastatin [Zocor] 40 mg PO HS 11/30/16 06/14/19 Calcium Carbonate/Vitamin D3 1 tab PO DAILY 05/30/17 06/14/19 [Calcium 600-Vit D3 800 Tab] Multivitamins, Thera [Multivitamin 1 tab PO DAILY@1800 05/30/17 06/14/19 (formulary)] Vitamin E (Dl,Tocopheryl Acet) 400 unit PO DAILY@1800 05/30/17 06/14/19 [Vitamin E] fentaNYL 25MCG/HR PATCH [Duragesic 1 patch TRANSDERM Q72H 11/02/17 06/14/19 25MCG/HR] rOPINIRole HCL [Requip] 2 mg PO HS 11/02/17 06/14/19 ALPRAZolam [Xanax] 0.25 mg PO HS 01/08/18 06/14/19 Furosemide [Lasix] 40 mg PO DAILY 03/27/18 06/14/19 Ipratropium-Albuterol Nebulize 3 ml INHALATION RT-TID 08/11/18 06/14/19 [Duoneb 0.5 mg-3 mg/3 ml Soln] Aspirin [[place] Aspirin EC] 81 mg PO HS 12/25/18 06/14/19 Ferrous Sulfate [Feosol] 325 mg PO BID 12/25/18 06/14/19 HYDROcodone/APAP 10-325MG [[place] 1 tab PO Q6HR PRN 12/25/18 06/14/19 10-325] Famotidine [Pepcid] 20 mg PO BID 02/13/19 06/14/19 Previous Rx's Medication Instructions Recorded Levothyroxine Sodium [Synthroid] 112 mcg PO DAILY@0630 #30 tab 09/10/18 Metoprolol Tartrate [Lopressor] 50 mg PO TID #90 tab 09/10/18 Amiodarone [Cordarone] 200 mg PO DAILY #0 02/16/19 Allergies Allergy/AdvReac Type Severity Reaction Status Date / Time codeine AdvReac Confusion Verified 06/14/19 12:38 sulfamethoxazole AdvReac Nausea & Verified 06/14/19 12:38 [From Bactrim] Vomiting trimethoprim [From Bactrim] AdvReac Nausea & Verified 06/14/19 12:38 Vomiting Review of Systems ROS Other: All systems not noted in ROS Statement are negative. <Anderson Hannon - Last Filed: 06/14/19 13:13> ROS Other: All systems not noted in ROS Statement are negative. <Jose Antonio Alonso - Last Filed: 06/14/19 13:31> ROS Statement: Those systems with pertinent positive or pertinent negative responses have been documented in the HPI. Past Medical History Past Medical History: Atrial Fibrillation, Asthma, Cancer, Heart Failure, COPD, CVA/TIA, Eye Disorder, GERD/Reflux, GI Bleed, Hyperlipidemia, Hypertension, Osteoarthritis (OA), Pneumonia, Renal Disease, Skin Disorder, Thyroid Disorder, Vascular Disorder Additional Past Medical History / Comment(s): GI bleed with acute blood loss anemia, thrombocytopenia, gastritis/duodenitis, 2002 colon cancer with surgery/chemo and radiation, chronic hypoxic respiratory failure, home O2 at 2L/NC ATC, pulmonary HTN, pleurisy, chronic kidney disease stage III, CVA with slight speech difficulty, heart murmur, glaucoma bilaterally, hypothyroid, rosacia, UTIs, urine stress incontinence, constipation, arthritis multiple joints, chronic low back pain, past fall with L hip fracture and R patellar fracture, rib fracture, sinus problems. 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 done(donor site was abd), bilateral carpal tunnel releases, R patella fused d/t fracture, krista cataracts, colonoscopy/polypectomy Past Anesthesia/Blood Transfusion Reactions: No Reported Reaction Past Psychological History: No Psychological Hx Reported Smoking Status: Former smoker Past Alcohol Use History: None Reported Past Drug Use History: None Reported - Past Family History Father Family Medical History: Liver Disease Additional Family Medical History / Comment(s): ETOH abuse - cirrhosis of the liver Mother Family Medical History: Neurologic Disorder Additional Family Medical History / Comment(s): Brain aneurysm <Anderson Hannon - Last Filed: 06/14/19 13:13> General Exam Limitations: no limitations General appearance: alert, in no apparent distress Head exam: Present: atraumatic, normocephalic, normal inspection Eye exam: Present: normal appearance, PERRL, EOMI. Absent: scleral icterus, conjunctival injection, periorbital swelling ENT exam: Present: normal exam, normal oropharynx, mucous membranes moist Neck exam: Present: normal inspection. Absent: tenderness, meningismus, lymphadenopathy Respiratory exam: Present: wheezes, decreased breath sounds. Absent: normal lung sounds bilaterally, respiratory distress, rales, rhonchi, stridor Cardiovascular Exam: Present: regular rate, normal rhythm, normal heart sounds. Absent: systolic murmur, diastolic murmur, rubs, gallop, clicks GI/Abdominal exam: Present: soft, normal bowel sounds. Absent: distended, tenderness, guarding, rebound, rigid Extremities exam: Present: pedal edema (Minimal) <Anderson Hannon - Last Filed: 06/14/19 13:13> Course Vital Signs 06/14/19 06/14/19 06/14/19 10:45 11:21 11:27 Temperature 99.3 F Pulse Rate 77 72 Respiratory 20 18 Rate Blood Pressure 142/75 O2 Sat by Pulse 92 L Oximetry 06/14/19 06/14/19 11:36 13:29 Temperature Pulse Rate 77 69 Respiratory 18 Rate Blood Pressure 121/50 O2 Sat by Pulse 96 Oximetry Medical Decision Making - Lab Data Result diagrams: 06/14/19 11:37 06/14/19 11:37 <Anderson Hannon - Last Filed: 06/14/19 13:13> - Lab Data Result diagrams: 06/14/19 11:37 06/14/19 11:37 <Jose Antonio Alonso - Last Filed: 06/14/19 13:31> - Medical Decision Making 83-year-old female presented for dyspnea. Patient has acute CHF exacerbation. Patient will be admitted. (Anderson Hannon) Case discussed with practitioner Anderson. Case also discussed with Dr. Alfonso, who will admit covered for Dr. Maya. Chart reviewed. Results reviewed. (Jose Antonio Alonso) - Lab Data Lab Results 06/14/19 06/14/19 06/14/19 Range/Units 11:37 11:37 11:37 WBC 8.3 (3.8-10.6) k/uL RBC 3.19 L (3.80-5.40) m/uL Hgb 10.2 L (11.4-16.0) gm/dL Hct 32.0 L (34.0-46.0) % MCV 100.4 H (80.0-100.0) fL MCH 31.9 (25.0-35.0) pg MCHC 31.8 (31.0-37.0) g/dL RDW 13.7 (11.5-15.5) % Plt Count 53 L (150-450) k/uL Neutrophils % 87 % Lymphocytes % 6 % Monocytes % 5 % Eosinophils % 1 % Basophils % 0 % Neutrophils # 7.2 (1.3-7.7) k/uL Lymphocytes # 0.5 L (1.0-4.8) k/uL Monocytes # 0.4 (0-1.0) k/uL Eosinophils # 0.1 (0-0.7) k/uL Basophils # 0.0 (0-0.2) k/uL Manual Slide Review Performed Hypochromasia Slight Poikilocytosis (manual Present Macrocytosis Slight PT (9.0-12.0) sec INR (<1.2) APTT (22.0-30.0) sec Sodium 138 (137-145) mmol/L Potassium 5.0 (3.5-5.1) mmol/L Chloride 104 (98-107) mmol/L Carbon Dioxide 24 (22-30) mmol/L Anion Gap 10 mmol/L BUN 26 H (7-17) mg/dL Creatinine 0.95 (0.52-1.04) mg/dL Est GFR (CKD-EPI)AfAm 65 (>60 ml/min/1.73 sqM) Est GFR (CKD-EPI)NonAf 56 (>60 ml/min/1.73 sqM) Glucose 107 H (74-99) mg/dL Calcium 9.0 (8.4-10.2) mg/dL Magnesium 2.0 (1.6-2.3) mg/dL Total Bilirubin 1.4 H (0.2-1.3) mg/dL AST 33 (14-36) U/L ALT 36 (9-52) U/L Alkaline Phosphatase 64 (38-126) U/L Troponin I (0.000-0.034) ng/mL NT-Pro-B Natriuret Pep 3780 pg/mL Total Protein 7.2 (6.3-8.2) g/dL Albumin 4.0 (3.5-5.0) g/dL 06/14/19 06/14/19 Range/Units 11:37 11:37 WBC (3.8-10.6) k/uL RBC (3.80-5.40) m/uL Hgb (11.4-16.0) gm/dL Hct (34.0-46.0) % MCV (80.0-100.0) fL MCH (25.0-35.0) pg MCHC (31.0-37.0) g/dL RDW (11.5-15.5) % Plt Count (150-450) k/uL Neutrophils % % Lymphocytes % % Monocytes % % Eosinophils % % Basophils % % Neutrophils # (1.3-7.7) k/uL Lymphocytes # (1.0-4.8) k/uL Monocytes # (0-1.0) k/uL Eosinophils # (0-0.7) k/uL Basophils # (0-0.2) k/uL Manual Slide Review Hypochromasia Poikilocytosis (manual Macrocytosis PT 10.5 (9.0-12.0) sec INR 1.0 (<1.2) APTT 18.6 L (22.0-30.0) sec Sodium (137-145) mmol/L Potassium (3.5-5.1) mmol/L Chloride (98-107) mmol/L Carbon Dioxide (22-30) mmol/L Anion Gap mmol/L BUN (7-17) mg/dL Creatinine (0.52-1.04) mg/dL Est GFR (CKD-EPI)AfAm (>60 ml/min/1.73 sqM) Est GFR (CKD-EPI)NonAf (>60 ml/min/1.73 sqM) Glucose (74-99) mg/dL Calcium (8.4-10.2) mg/dL Magnesium (1.6-2.3) mg/dL Total Bilirubin (0.2-1.3) mg/dL AST (14-36) U/L ALT (9-52) U/L Alkaline Phosphatase (38-126) U/L Troponin I 0.017 (0.000-0.034) ng/mL NT-Pro-B Natriuret Pep pg/mL Total Protein (6.3-8.2) g/dL Albumin (3.5-5.0) g/dL 06/14/19 12:55 EKG performed at 11:05 normal sinus rhythm with left bundle rate of 74 RI 160 QRS 158 QT/QTC 440/492 (Anderson Hannon) Critical Care Time Critical Care Time: Yes Total Critical Care Time: 35 <Anderson Hannon - Last Filed: 06/14/19 13:13> Critical Care Time: To 35 minutes of critical care time were used initially evaluated patient, reviewed past medical history discuss patient's condition with family. Patient had initial workup including labs, EKG and chest x-ray. Patient's found to have CHF exacerbation she initially was given DuoNeb treatment and Lasix IV. Laura ent's case discussed with admitting physician which patient will be admitted for IV diuresis Lasix 40 mg twice a day (Anderson Hannon) Disposition <Anderson Hannon - Last Filed: 06/14/19 13:13> <Jose Antonio Alonso - Last Filed: 06/14/19 13:31> Clinical Impression: Acute exacerbation of CHF (congestive heart failure), Dyspnea Disposition: ADMITTED IP TO THIS HOSP Condition: Fair Referrals: Delano Maya MD [Primary Care Provider] - 1-2 days
[2019-06-14 12:00] LABS: Total Bilirubin 1.4 mg/dL (0.2-1.3); Total Protein 7.2 g/dL (6.3-8.2)
--- NOTE | 2019-06-14 12:16 | XR ---
EXAMINATION TYPE: XR chest 2V DATE OF EXAM: 06/14/2019 HISTORY: difficulty breathing. REFERENCE: Previous study dated 09/30/2018. FINDINGS: The heart is enlarged. There is vascular congestion and mild edema. There are small, bilate ral effusions. IMPRESSION: MILD CHANGES OF PULMONARY EDEMA.
[2019-06-14 12:21] LABS: Prothrombin Time 10.5 sec (9.0-12.0)
[2019-06-14 12:25] LABS: Partial Thromboplastin Time 18.6 sec (22.0-30.0)
[2019-06-14] MEDS ORDERED: FUROSEMIDE 10 MG/ML 4 ML VIAL IV STA (12:26)
[2019-06-14 12:31] LABS: Basophils % (A) 0 %; Eosinophils # (A) 0.1 k/uL (0-0.7); Eosinophils % (A) 1 %; HGB 10.2 gm/dL (11.4-16.0); Hypochromasia Slight; Lymphocytes # (A) 0.5 k/uL (1.0-4.8); Lymphocytes % (A) 6 %; MCH 31.9 pg (25.0-35.0); MCHC 31.8 g/dL (31.0-37.0); MCV 100.4 fL (80.0-100.0); Macrocytosis Slight; Monocytes # (A) 0.4 k/uL (0-1.0); Monocytes % (A) 5 %; Neutrophils # (A) 7.2 k/uL (1.3-7.7); Neutrophils % (A) 87 %; RBC 3.19 m/uL (3.80-5.40); RDW 13.7 % (11.5-15.5); WBC 8.3 k/uL (3.8-10.6)
[2019-06-14 12:47] LABS: Platelet Count 53 k/uL (150-450); Poikilocytosis (M) Present
[2019-06-14] MEDS ORDERED: IPRATROPIUM-ALBUTEROL 3 ML NEB INHALATION PRN (13:15)
[2019-06-14 15:13] VITALS: BMI 38.1
[2019-06-14] MEDS ORDERED: HYDROcodone/APAP 10-325MG 1 EACH TAB PO PRN (16:26)
[2019-06-14] MEDS: MULTIVITAMINS, THERA 1 EACH TAB PO SCH (17:54)
[2019-06-14] MEDS: METOPROLOL TARTRATE 50 MG TAB PO SCH ×2 (17:54→22:37)
[2019-06-14] MEDS: VITAMIN E (DL,TOCOPHERYL ACET) 400 UNIT CAP PO SCH (17:54)
[2019-06-14] MEDS ORDERED: FUROSEMIDE 10 MG/ML 4 ML VIAL IV SCH (21:00)
[2019-06-14] MEDS: IPRATROPIUM-ALBUTEROL 3 ML NEB INHALATION SCH (21:28)
[2019-06-14] MEDS: FERROUS SULFATE 325 MG TAB PO SCH (22:21)
[2019-06-14] MEDS: ATORVASTATIN 20 MG TAB PO SCH (22:22)
[2019-06-14] MEDS: FAMOTIDINE 20 MG TAB PO SCH (22:22)
[2019-06-14] MEDS: ASPIRIN 81 MG PO SCH (22:22)
[2019-06-14] MEDS: ALPRAZolam 0.25 MG TAB PO SCH (22:22)
[2019-06-14] MEDS: LATANOPROST 0.005% OPHTH DROPS 2.5 ML BTL BOTH EYES SCH (22:28)
[2019-06-14] MEDS: FUROSEMIDE 10 MG/ML 4 ML VIAL IV SCH (22:29)
[2019-06-15] MEDS: FUROSEMIDE 10 MG/ML 4 ML VIAL IV SCH ×3 (04:54→21:11)
[2019-06-15] MEDS: LEVOTHYROXINE 112 MCG TAB PO SCH (05:46)
[2019-06-15] MEDS: IPRATROPIUM-ALBUTEROL 3 ML NEB INHALATION SCH ×3 (07:56→20:33)
[2019-06-15 08:01] LABS: Calcium 9.1 mg/dL (8.4-10.2)
[2019-06-15] MEDS: POTASSIUM CHLORIDE ER 10 MEQ TAB.ER.PRT PO SCH (08:26)
[2019-06-15] MEDS: METOPROLOL TARTRATE 50 MG TAB PO SCH ×3 (08:26→21:11)
[2019-06-15] MEDS: CALCIUM CARB-VIT D 500MG-200UN 1 EACH TAB PO SCH (08:26)
[2019-06-15] MEDS: AMIODARONE 200 MG TAB PO SCH (08:26)
[2019-06-15] MEDS: FAMOTIDINE 20 MG TAB PO SCH (08:26)
[2019-06-15] MEDS: CITALOPRAM HYDROBROMIDE 20 MG TAB PO SCH (08:26)
[2019-06-15] MEDS: FERROUS SULFATE 325 MG TAB PO SCH ×2 (08:26→21:11)
[2019-06-15] MEDS ORDERED: ASPIRIN 325 MG TAB PO SCH (13:15)
--- NOTE | 2019-06-15 15:53 | ECHOF ---
Referral Reason:Shortness of breath, left bundle branch block MEASUREMENTS -------- HEIGHT: 129.5 cm WEIGHT: 85.3 kg BP: IVSd: 1.0 cm (0.6 - 1.1) LVIDd: 4.7 cm (3.9 - 5.3) LVPWd: 1.1 cm (0.6 - 1.1) IVSs: 1.7 cm LVIDs: 2.2 cm LVPWs: 1.7 cm RVIDd: 2.2 cm (< 3.3) LAESV Index (A-L): 55.91 ml/m Ao Diam: 2.8 cm (2.0 - 3.7) LA Diam: 4.1 cm (2.7 - 3.8) AV Cusp: 1.5 cm (1.5 - 2.6) EPSS: 0.4 cm MV E Brando: 1.42 m/s MV DecT: 385 ms MV A Brando: 1.14 m/s MV E/A Ratio: 1.24 AV maxP.21 mmHg AV meanP.60 mmHg AR PHT: 468 ms RAP: 5.00 mmHg RVSP: 54.85 mmHg MV EF SLOPE: 47.51 mm/s (70 - 150) MV EXCURSION: 12.49 mm (> 18.000) FINDINGS -------- Sinus rhythm. This was a technically adequate study. The left ventricular size is normal. There is mild concentric left ventricular hypertrophy. Overa ll left ventricular systolic function is normal with, an EF between 55 - 60 %. The right ventricle is normal in size. LA is severely dilated >40 ml/m2 The right atrial size is normal. Interatrial and interventricular septum intact. Aortic valve is trileaflet and is mildly thickened. There is mild aortic valve sclerosis. There i s mild aortic stenosis present. The mitral valve leaflets are moderately thickened. Moderate mitral annular calcification present. Severe mitral regurgitation is present. The peak and mean MV gradients are 10.12mmHg 3.60mmHg as measured by doppler. Moderate mitral stenosis. Moderate tricuspid regurgitation present. There is moderate pulmonary hypertension. The right margaux tricular systolic pressure, as measured by Doppler, is 54.85mmHg. Trace/mild (physiologic) pulmonic regurgitation. The aortic root size is normal. Normal inferior vena cava with normal inspiratory collapse consistent with estimated right atrial pre ssure of 5 mmHg. Echo free space indicative of a pericardial fat pad. CONCLUSIONS -------- 1. Sinus rhythm. 2. This was a technically adequate study. 3. The left ventricular size is normal. 4. There is mild concentric left ventricular hypertrophy. 5. Overall left ventricular systolic function is normal with, an EF between 55 - 60 %. 6. The right ventricle is normal in size. 7. LA is severely dilated >40 ml/m2 8. The right atrial size is normal. 9. Interatrial and interventricular septum intact. 10. Aortic valve is trileaflet and is mildly thickened. 11. There is mild aortic valve sclerosis. 12. There is mild aortic stenosis present. 13. The mitral valve leaflets are moderately thickened. 14. Moderate mitral annular calcification present. 15. Severe mitral regurgitation is present. 16. The peak and mean MV gradients are 10.12mmHg 3.60mmHg as measured by doppler. 17. Moderate mitral stenosis. 18. Moderate tricuspid regurgitation present. 19. There is moderate pulmonary hypertension. 20. The right ventricular systolic pressure, as measured by Doppler, is 54.85mmHg. 21. Trace/mild (physiologic) pulmonic regurgitation. 22. The aortic root size is normal. 23. Normal inferior vena cava with normal inspiratory collapse consistent with estimated right atrial pressure of 5 mmHg. 24. Echo free space indicative of a pericardial fat pad. COMPUTATIONAL CHEMIST: Liza Stone RDCS
[2019-06-15] MEDS: MULTIVITAMINS, THERA 1 EACH TAB PO SCH (17:04)
[2019-06-15] MEDS: VITAMIN E (DL,TOCOPHERYL ACET) 400 UNIT CAP PO SCH (17:04)
[2019-06-15] MEDS: LATANOPROST 0.005% OPHTH DROPS 2.5 ML BTL BOTH EYES SCH (21:10)
[2019-06-15] MEDS: ALPRAZolam 0.25 MG TAB PO SCH (21:11)
[2019-06-15] MEDS: ASPIRIN 81 MG PO SCH (21:11)
[2019-06-15] MEDS: ATORVASTATIN 20 MG TAB PO SCH (21:11)
--- NOTE | 2019-06-15 23:09 | P.HPIM ---
History of Present Illness H&P Date: 06/14/19 Chief Complaint: Short of breath History of presenting complaint: This is a very pleasant 83-year-old patient of Dr. Maya. Chronic stable medical conditions include COPD, paroxysmal atrial fibrillation, hypertension, hyperlipidemia, GERD, osteoarthritis, secondary pulmonary hypertension, hypothyroid, rosacea, osteoarthritis, urine stress incontinence. Diverticulosis. Patient presented with increasing short of breath or extremity edema orthopnea slight cough with frothy sputum. No fever no chills. Had some wheezing. Decreased appetite tired rundown. Chest x-ray showed pulmonary edema. Started on IV Lasix. No chest pain. Review of systems: GEN.: Tired EYES: None HEENT: None NECK: None RESPIRATORY: As above CARDIOVASCULAR: As above GASTROINTESTINAL: None GENITOURINARY: None MUSCULOSKELETAL: Joint pains LYMPHATICS: None HEMATOLOGICAL: None PSYCHIATRY: Bit anxious NEUROLOGICAL: None Past medical history: Right adnexa growth being followed as an outpatient, COPD, eczema lately fibrillation, hypertension, hyperlipidemia, COPD, GERD, primary Kiara arthritis, colon cancer in 2001, secondary probably hypertension, hypothyroid, rosacea, urinary stress incontinence, osteoarthritis chronic diverticulosis, gastritis duodenitis, colon cancer treated with surgery chemoradiation, home oxygen 2 L, chronic kidney disease stage III, stroke with some speech impairment, hypothyroid, Social history: Lives with son and [id number], home oxygen, has a walker Smoked for 20 years, stopped in 1986, smoked a pack and half Family history: Cirrhosis Physical examination: VITAL SIGNS: 99.3, 77, 20, 142 x 75, 92% on 2 L GENERAL: [BMI 38.2, sitting up short of breath. EYES: Pupils equal. Conjunctiva normal. HEENT: External appearance of nose and ears normal, oral cavity grossly normal. NECK: JVD possibly raised; masses not palpable. HEART: First and second heart sounds are normal; edema present. LUNGS: Respiratory rate increased, diminished breath sounds. ABDOMEN: Soft, nontender, liver spleen not palpable, no masses palpable. PSYCH: Alert and oriented x3; mood and affect normal. NEUROLOGICAL: Cranial nerves grossly intact; no facial asymmetry, power and sensation grossly intact. LYMPHATICS: No lymph nodes palpable in the axilla and neck EXTREMITIES: Missing right hand fingers INVESTIGATIONS, reviewed in the clinical context: White count 8.3 hemoglobin 10.2 potassium 5 BUN 26 creatinine 0.95 Chest x-ray film personally reviewed by me shows pulmonary edema EKG tracing personally reviewed by me shows left bundle branch block Assessment: -Acute on chronic congestive heart failure exacerbation, EF not known -COPD in an ex-smoker -Essential hypertension -Hyperlipidemia -GERD -Primary osteoarthritis -Secondary probably hypertension from COPD -Hypothyroid -Chronic urinary stress incontinence -Chronic diverticulosis -Chronic gait dysfunction uses a cane/walker Plan: Patient started on IV Lasix 40 mg every 8. Home medications resumed. Electrolytes will be followed closely. 2-D echocardiogram has been ordered. Care was discussed with the patient. Patient will need to 2 nights stay in the hospital. Past Medical History Past Medical History: Atrial Fibrillation, Asthma, Cancer, Heart Failure, COPD, CVA/TIA, Eye Disorder, GERD/Reflux, GI Bleed, Hyperlipidemia, Hypertension, Osteoarthritis (OA), Pneumonia, Renal Disease, Skin Disorder, Thyroid Disorder, Vascular Disorder Additional Past Medical History / Comment(s): GI bleed with acute blood loss anemia, thrombocytopenia, gastritis/duodenitis, 2001 colon cancer with surgery/chemo and radiation, chronic hypoxic respiratory failure, home O2 at 2L/NC ATC, pulmonary HTN, pleurisy, chronic kidney disease stage III, CVA with slight speech difficulty, heart murmur, glaucoma bilaterally, hypothyroid, rosacia, UTIs, urine stress incontinence, constipation, arthritis multiple joints, chronic low back pain, past fall with L hip fracture and R patellar fracture, rib fracture, sinus problems. 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 stated she lives with son and his and 2 grandchildren. Has home 02, cane/walker,shower chair. Has caregiver to help with showers. Smoking Status: Former smoker Past Alcohol Use History: None Reported Additional Past Alcohol Use History / Comment(s): Pt started smoking 1966. Quit 1986 - smoked 1.5 ppd. Past Drug Use History: None Reported - Past Family History Father Family Medical History: Liver Disease Additional Family Medical History / Comment(s): ETOH abuse - cirrhosis of the liver Mother Family Medical History: Neurologic Disorder Additional Family Medical History / Comment(s): Brain aneurysm Medications and Allergies Home Medications Medication Instructions Recorded Confirmed Type Alendronate Sodium [Fosamax] 70 mg PO SCHMITT 11/30/16 06/14/19 History Citalopram Hydrobromide [CeleXA] 20 mg PO DAILY 11/30/16 06/14/19 History Latanoprost [Xalatan 0.005%] 1 drop BOTH EYES HS 11/30/16 06/14/19 History Potassium Chloride ER [K-Dur 10] 10 meq PO DAILY 11/30/16 06/14/19 History Simvastatin [Zocor] 40 mg PO HS 11/30/16 06/14/19 History Calcium Carbonate/Vitamin D3 1 tab PO DAILY 05/30/17 06/14/19 History [Calcium 600-Vit D3 800 Tab] Multivitamins, Thera [Multivitamin 1 tab PO DAILY@1800 05/30/17 06/14/19 History (formulary)] Vitamin E (Dl,Tocopheryl Acet) 400 unit PO DAILY@1800 05/30/17 06/14/19 History [Vitamin E] fentaNYL 25MCG/HR PATCH [[place]ages[place] 1 patch TRANSDERM Q72H 11/02/17 06/14/19 History 25MCG/HR] rOPINIRole HCL [Requip] 2 mg PO HS 11/02/17 06/14/19 History ALPRAZolam [Xanax] 0.25 mg PO HS 01/08/18 06/14/19 History Furosemide [Lasix] 40 mg PO DAILY 03/27/18 06/14/19 History Ipratropium-Albuterol Nebulize 3 ml INHALATION RT-TID 08/11/18 06/14/19 History [Duoneb 0.5 mg-3 mg/3 ml Soln] Levothyroxine Sodium [Synthroid] 112 mcg PO DAILY@0630 #30 tab 09/10/18 06/14/19 Rx Metoprolol Tartrate [Lopressor] 50 mg PO TID #90 tab 09/10/18 06/14/19 Rx Aspirin [[place] Aspirin EC] 81 mg PO HS 12/25/18 06/14/19 History Ferrous Sulfate [Feosol] 325 mg PO BID 12/25/18 06/14/19 History HYDROcodone/APAP 10-325MG [[place] 1 tab PO Q6HR PRN 12/25/18 06/14/19 History 10-325] Famotidine [Pepcid] 20 mg PO BID 02/13/19 06/14/19 History Amiodarone [Cordarone] 200 mg PO DAILY #0 02/16/19 06/14/19 Rx Allergies Allergy/AdvReac Type Severity Reaction Status Date / Time codeine AdvReac Confusion Verified 06/14/19 12:38 sulfamethoxazole AdvReac Nausea & Verified 06/14/19 12:38 [From Bactrim] Vomiting trimethoprim [From Bactrim] AdvReac Nausea & Verified 06/14/19 12:38 Vomiting Physical Exam Vitals: Vital Signs Temp Pulse Pulse Resp BP BP Pulse Ox 06/14/19 15:47 72 06/14/19 15:41 68 06/14/19 14:40 99.0 F 71 18 146/77 94 L 06/14/19 13:29 69 18 121/50 96 06/14/19 11:36 77 06/14/19 11:27 72 06/14/19 11:21 18 06/14/19 10:45 99.3 F 77 20 142/75 92 L Intake and Output 06/14/19 06/14/19 06/14/19 06:59 14:59 22:59 Other: # Voids 1 # Bowel Movements 1 Weight 85.729 kg 85.72 kg Results CBC & Chem 7: 06/14/19 11:37 06/15/19 07:19 Labs: Abnormal Lab Results - Last 24 Hours (Table) 06/14/19 06/14/19 06/14/19 Range/Units 11:37 11:37 11:37 RBC 3.19 L (3.80-5.40) m/uL Hgb 10.2 L (11.4-16.0) gm/dL Hct 32.0 L (34.0-46.0) % MCV 100.4 H (80.0-100.0) fL Plt Count 53 L (150-450) k/uL Lymphocytes # 0.5 L (1.0-4.8) k/uL APTT 18.6 L (22.0-30.0) sec BUN 26 H (7-17) mg/dL Glucose 107 H (74-99) mg/dL Total Bilirubin 1.4 H (0.2-1.3) mg/dL
--- NOTE | 2019-06-15 23:14 | P.PN ---
Progress Note - Text Progress Note Date: 06/15/19 Chief Complaint: Short of breath Interval history: This is a very pleasant 83-year-old patient of Dr. Maya. Chronic stable medical conditions include COPD, paroxysmal atrial fibrillation, hypertension, hyperlipidemia, GERD, osteoarthritis, secondary pulmonary hypertension, hypothyroid, rosacea, osteoarthritis, urine stress incontinence. Diverticulosis. Patient presented with increasing short of breath or extremity edema orthopnea slight cough with frothy sputum. No fever no chills. Had some wheezing. Decreased appetite tired rundown. Chest x-ray showed pulmonary edema. Started on IV Lasix. No chest pain. Admitted with CHF exacerbation Today-breathing better. Getting IV Lasix. Edema coming down Review of systems: Was done for constitutional, cardiovascular, GI, pulmonary. relevant finding as above Active Medications Hydrocodone Bitart/Acetaminophen ([place] 10) 1 each PO Q6HR PRN PRN Reason: Pain Albuterol/Ipratropium (Duoneb 0.5 Mg-3 Mg/3 Ml Soln) 3 ml INHALATION RT-QID PRN PRN Reason: Shortness Of Breath Or Wheezing Last Admin: 06/14/19 15:38 Dose: 3 ml Documented by: Albuterol/Ipratropium (Duoneb 0.5 Mg-3 Mg/3 Ml Soln) 3 ml INHALATION RT-TID [facility] Last Admin: 06/15/19 20:33 Dose: 3 ml Documented by: Alprazolam (Xanax) 0.25 mg PO [facility] Last Admin: 06/15/19 21:11 Dose: 0.25 mg Documented by: Amiodarone HCl (Cordarone) 200 mg PO DAILY [facility] Last Admin: 06/15/19 08:26 Dose: 200 mg Documented by: Aspirin (Aspirin) 81 mg PO [facility] Last Admin: 06/15/19 21:11 Dose: 81 mg Documented by: Atorvastatin Calcium (Lipitor) 20 mg PO [facility] Last Admin: 06/15/19 21:11 Dose: 20 mg Documented by: Calcium Carbonate (Oscal 500+D) 1 each PO DAILY [facility] Last Admin: 06/15/19 08:26 Dose: 1 each Documented by: Citalopram Hydrobromide (Celexa) 20 mg PO DAILY [facility] Last Admin: 06/15/19 08:26 Dose: 20 mg Documented by: Famotidine (Pepcid) 20 mg PO DAILY [facility] Fentanyl (Duragesic 25mcg/Hr Patch) 1 patch TRANSDERM Q72H [facility] Last Admin: 06/14/19 17:56 Dose: 1 patch Documented by: Ferrous Sulfate (Feosol) 325 mg PO BID [facility] Last Admin: 06/15/19 21:11 Dose: 325 mg Documented by: Furosemide (Lasix) 40 mg IV Q8H [facility] Last Admin: 06/15/19 21:11 Dose: 40 mg Documented by: Latanoprost (Xalatan 0.005%) 1 drops BOTH EYES [facility] Last Admin: 06/15/19 21:10 Dose: 1 drops Documented by: Levothyroxine Sodium (Synthroid) 112 mcg PO DAILY@0630 [facility] Last Admin: 06/15/19 05:46 Dose: 112 mcg Documented by: Metoprolol Tartrate (Lopressor) 50 mg PO TID [facility] Last Admin: 06/15/19 21:11 Dose: 50 mg Documented by: Multivitamins (Theragran) 1 each PO DAILY@1800 [facility] Last Admin: 06/15/19 17:04 Dose: 1 each Documented by: Potassium Chloride (K-Dur 10) 10 meq PO DAILY [facility] Last Admin: 06/15/19 08:26 Dose: 10 meq Documented by: Ropinirole HCl (Requip) 2 mg PO [facility] Last Admin: 06/15/19 21:11 Dose: 2 mg Documented by: Vitamin E (Vitamin E) 400 unit PO DAILY@1800 [facility] Last Admin: 06/15/19 17:04 Dose: 400 unit Documented by: Physical examination: VITAL SIGNS: 99.6, 66, 15, 131 but 92, 94% on 2 L GENERAL: [Sitting up in chair, less short of breath. EYES: Pupils equal. Conjunctiva normal. HEENT: External appearance of nose and ears normal, oral cavity grossly normal. NECK: JVD possibly raised; masses not palpable. HEART: First and second heart sounds are normal; edema decreasing. LUNGS: Respiratory rate increased, diminished breath sounds. ABDOMEN: Soft, nontender, liver spleen not palpable, no masses palpable. PSYCH: Alert and oriented x3; mood and affect normal. EXTREMITIES: Missing right hand fingers INVESTIGATIONS, reviewed in the clinical context: 2-D echo EF 55-60%, severe mitral regurgitation, moderate mitral stenosis, moderate tricuspid regurgitation, moderate pulmonary hypertension Admission testing White count 8.3 hemoglobin 10.2 potassium 5 BUN 26 creatinine 0.95 Chest x-ray film personally reviewed by me shows pulmonary edema EKG tracing personally reviewed by me shows left bundle branch block Assessment: -Acute on chronic congestive heart failure exacerbation, from diastolic dysfunction EF 55-60%, slow to respond -Severe mitral regurgitation, moderate mitral stenosis, moderate tricuspid regurgitation Secondary moderate pulmonary hypertension from COPD and CHF -COPD in an ex-smoker -Essential hypertension -Hyperlipidemia -GERD -Primary osteoarthritis -Secondary probably hypertension from COPD -Hypothyroid -Chronic urinary stress incontinence -Chronic diverticulosis -Chronic gait dysfunction uses a cane/walker Plan: Continue IV Lasix for another 24 hours. Patient is responding. Keep a close eyes on electrolytes.
[2019-06-15] MEDS: ENOXAPARIN 40 MG/0.4 ML SYRINGE SQ SCH (23:29)
[2019-06-16 00:41] VITALS: RESP 15
[2019-06-16] MEDS: LEVOTHYROXINE 112 MCG TAB PO SCH (05:13)
[2019-06-16] MEDS: FUROSEMIDE 10 MG/ML 4 ML VIAL IV SCH (05:13)
[2019-06-16 07:36] LABS: Calcium 8.5 mg/dL (8.4-10.2)
[2019-06-16 07:50] VITALS: BP 148/76; TEMP 98
[2019-06-16] MEDS: CITALOPRAM HYDROBROMIDE 20 MG TAB PO SCH (08:10)
[2019-06-16] MEDS: FERROUS SULFATE 325 MG TAB PO SCH (08:10)
[2019-06-16] MEDS: METOPROLOL TARTRATE 50 MG TAB PO SCH ×2 (08:10→17:37)
[2019-06-16] MEDS: POTASSIUM CHLORIDE ER 10 MEQ TAB.ER.PRT PO SCH (08:10)
[2019-06-16] MEDS: AMIODARONE 200 MG TAB PO SCH (08:10)
[2019-06-16] MEDS: CALCIUM CARB-VIT D 500MG-200UN 1 EACH TAB PO SCH (08:11)
[2019-06-16] MEDS: ENOXAPARIN 40 MG/0.4 ML SYRINGE SQ SCH (08:11)
[2019-06-16] MEDS: IPRATROPIUM-ALBUTEROL 3 ML NEB INHALATION SCH ×2 (08:49→12:25)
[2019-06-16] MEDS ORDERED: FAMOTIDINE 20 MG TAB PO SCH (09:00)
--- NOTE | 2019-06-16 09:47 | XR ---
EXAMINATION TYPE: XR chest 2V DATE OF EXAM: 06/16/2019 COMPARISON: 06/14/2019 HISTORY: Congestive heart failure TECHNIQUE: Frontal and lateral views of the chest are obtained. FINDINGS: Cardiomediastinal silhouette is enlarged. Pulmonary arteries are also engorged suggesting pulmonary arterial hypertension. Old healed right rib fractures are seen with diffuse osseous deminer alization. Minimal degenerative changes of the spine. No pulmonary vascular congestion. Improved aera tion of the left lung base with resolved pleural effusions. IMPRESSION: Resolved pleural effusions and improved aeration of the left lung base. No pulmonary vas cular congestion.
--- NOTE | 2019-06-16 09:51 | P.CRDCN ---
History of Present Illness History of present illness: This is Dr. Connelly dictating a consult on this patient The patient was interviewed and examined by me IMPRESSION / ASSESSMENT: Patient presented with shortness of breath Atypical chest discomfort normal cardiac enzyme Systolic murmur consistent with severe mitral regurgitation Left bundle branch block pattern twelve-lead ECG PLAN: 2-D echo and Doppler study Reduce Lasix to 40 mg IV once daily, patient's been and creatinine is rising steadily Switched to by mouth Lasix tomorrow possibly 60 mg by mouth daily Follow-up with primary landscape nurseryman regarding management of valvular heart disease as an outpatient HPI Patient presents to the emergency room with shortness of breath and increasing dyspnea with mild cough She has a past history of atrial fibrillation COPD, congestive heart failure, hypertension and dyslipidemia ROS: No fever chills or rigors, no cough, phlegm or expectoration, no nausea, vomiting or diarrhea, no hematuria, dysuria, no musculoskeletal complaints, no strokes or seizures, no skin lesions. EXAMINATION: Afebrile 98.6F, pulse rate 100 to, blood pressure 131/92 mmHg nonlabored breathing REVIEW OF LABS, ECG & MEDICAL DATA Hemoglobin 10.2, potassium 5.0 and then subsequently 4.0, BUN 26, creatinine 0.95 BMP 21402 and troponin 0.017 Twelve-lead ECG shows sinus rhythm normal [place] (bundle-branch block QRS width of 158 ms Past history of paroxysmal atrial fibrillation COPD hypertension dyslipidemia Cardiac medications at home include simvastatin potassium metoprolol Lasix aspirin and amiodarone 200 mg a day She also takes Celexa 20 mg daily Recent lower GI bleeding, history of GI bleeding and anemia on ELIQUIS and received blood transfusion in September 2018 Paroxysmal atrial fibrillation not on anticoagulation Dr. Leslie has had an extensive discussion with the family including the patient's daughter about various treatments including the possibility of a watchman device in view of her GI bleeding on anticoagulation Preserved LV systolic function 60-65% in June 2018 mildly dilated left atrium Mild aortic stenosis with a peak gradient of 19 mmHg and mean gradient of around 10 mmHg Mild concentric LVH Past Medical History Past Medical History: Atrial Fibrillation, Asthma, Cancer, Heart Failure, COPD, CVA/TIA, Eye Disorder, GERD/Reflux, GI Bleed, Hyperlipidemia, Hypertension, Osteoarthritis (OA), Pneumonia, Renal Disease, Skin Disorder, Thyroid Disorder, Vascular Disorder Additional Past Medical History / Comment(s): GI bleed with acute blood loss anemia, thrombocytopenia, gastritis/duodenitis, 2001 colon cancer with surgery/chemo and radiation, chronic hypoxic respiratory failure, home O2 at 2L/NC ATC, pulmonary HTN, pleurisy, chronic kidney disease stage III, CVA with slight speech difficulty, heart murmur, glaucoma bilaterally, hypothyroid, rosacia, UTIs, urine stress incontinence, constipation, arthritis multiple joints, chronic low back pain, past fall with L hip fracture and R patellar fracture, rib fracture, sinus problems. 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 stated she lives with son and his and 2 grandchildren. Has home 02, cane/walker,shower chair. Has [employer] toby to help with showers. Smoking Status: Former smoker Past Alcohol Use History: None Reported Additional Past Alcohol Use History / Comment(s): Pt started smoking 1966. Quit 1986 - smoked 1.5 ppd. Past Drug Use History: None Reported - Past Family History Father Family Medical History: Liver Disease Additional Family Medical History / Comment(s): ETOH abuse - cirrhosis of the liver Mother Family Medical History: Neurologic Disorder Additional Family Medical History / Comment(s): Brain aneurysm Medications and Allergies Home Medications Medication Instructions Recorded Confirmed Type Alendronate Sodium [Fosamax] 70 mg PO [facility] 11/30/16 06/14/19 History Citalopram Hydrobromide [CeleXA] 20 mg PO DAILY 11/30/16 06/14/19 History Latanoprost [Xalatan 0.005%] 1 drop BOTH EYES HS 11/30/16 06/14/19 History Potassium Chloride ER [K-Dur 10] 10 meq PO DAILY 11/30/16 06/14/19 History Simvastatin [Zocor] 40 mg PO HS 11/30/16 06/14/19 History Calcium Carbonate/Vitamin D3 1 tab PO DAILY 05/30/17 06/14/19 History [Calcium 600-Vit D3 800 Tab] Multivitamins, Thera [Multivitamin 1 tab PO DAILY@1800 05/30/17 06/14/19 History (formulary)] Vitamin E (Dl,Tocopheryl Acet) 400 unit PO DAILY@1800 05/30/17 06/14/19 History [Vitamin E] fentaNYL 25MCG/HR PATCH [Duragesic 1 patch TRANSDERM Q72H 11/02/17 06/14/19 History 25MCG/HR] rOPINIRole HCL [Requip] 2 mg PO HS 11/02/17 06/14/19 History ALPRAZolam [Xanax] 0.25 mg PO HS 01/08/18 06/14/19 History Furosemide [Lasix] 40 mg PO DAILY 03/27/18 06/14/19 History Ipratropium-Albuterol Nebulize 3 ml INHALATION RT-TID 08/11/18 06/14/19 History [Duoneb 0.5 mg-3 mg/3 ml Soln] Levothyroxine Sodium [Synthroid] 112 mcg PO DAILY@0630 #30 tab 09/10/18 06/14/19 Rx Metoprolol Tartrate [Lopressor] 50 mg PO TID #90 tab 09/10/18 06/14/19 Rx Aspirin [[place] Aspirin EC] 81 mg PO HS 12/25/18 06/14/19 History Ferrous Sulfate [Feosol] 325 mg PO BID 12/25/18 06/14/19 History HYDROcodone/APAP 10-325MG [[place] 1 tab PO Q6HR PRN 12/25/18 06/14/19 History 10-325] Famotidine [Pepcid] 20 mg PO BID 02/13/19 06/14/19 History Amiodarone [Cordarone] 200 mg PO DAILY #0 02/16/19 06/14/19 Rx Allergies Allergy/AdvReac Type Severity Reaction Status Date / Time codeine AdvReac Confusion Verified 06/14/19 12:38 sulfamethoxazole AdvReac Nausea & Verified 06/14/19 12:38 [From Bactrim] Vomiting trimethoprim [From Bactrim] AdvReac Nausea & Verified 06/14/19 12:38 Vomiting Physical Exam Vitals: Vital Signs Temp Pulse Pulse Pulse Resp BP BP 06/15/19 08:14 70 06/15/19 07:58 66 06/15/19 07:00 99.6 F 102 H 15 131/92 06/15/19 00:20 98.7 F 65 16 139/79 06/14/19 22:35 68 06/14/19 21:40 68 06/14/19 21:28 64 06/14/19 19:36 98.7 F 68 16 150/69 06/14/19 15:47 72 06/14/19 15:41 68 06/14/19 14:40 99.0 F 71 18 146/77 06/14/19 13:29 69 18 121/50 06/14/19 11:36 77 06/14/19 11:27 72 06/14/19 11:21 18 06/14/19 10:45 99.3 F 77 20 142/75 Pulse Ox 06/15/19 08:14 06/15/19 07:58 06/15/19 07:00 94 L 06/15/19 00:20 92 L 06/14/19 22:35 06/14/19 21:40 06/14/19 21:28 06/14/19 19:36 96 06/14/19 15:47 06/14/19 15:41 06/14/19 14:40 94 L 06/14/19 13:29 96 06/14/19 11:36 06/14/19 11:27 06/14/19 11:21 06/14/19 10:45 92 L Intake and Output 06/14/19 06/15/19 06/15/19 22:59 06:59 14:59 Intake Total 100 10 200 Output Total 800 1000 Balance 100 -790 -800 Intake: Oral 100 10 200 Output: Urine 800 1000 Other: # Voids 2 1 1 # Bowel Movements 1 1 Weight 85.72 kg Results 06/14/19 11:37 06/16/19 06:55 Cardiac Enzymes 06/14/19 06/14/19 Range/Units 11:37 11:37 AST 33 (14-36) U/L Troponin I 0.017 (0.000-0.034) ng/mL Coagulation 06/14/19 Range/Units 11:37 PT 10.5 (9.0-12.0) sec APTT 18.6 L (22.0-30.0) sec CBC 06/14/19 Range/Units 11:37 WBC 8.3 (3.8-10.6) k/uL RBC 3.19 L (3.80-5.40) m/uL Hgb 10.2 L (11.4-16.0) gm/dL Hct 32.0 L (34.0-46.0) % Plt Count 53 L (150-450) k/uL Comprehensive Metabolic Panel 06/14/19 06/15/19 Range/Units 11:37 07:19 Sodium 138 138 (137-145) mmol/L Potassium 5.0 4.0 (3.5-5.1) mmol/L Chloride 104 98 (98-107) mmol/L Carbon Dioxide 24 31 H (22-30) mmol/L BUN 26 H 27 H (7-17) mg/dL Creatinine 0.95 1.06 H (0.52-1.04) mg/dL Glucose 107 H 100 H (74-99) mg/dL Calcium 9.0 9.1 (8.4-10.2) mg/dL AST 33 (14-36) U/L ALT 36 (9-52) U/L Alkaline Phosphatase 64 (38-126) U/L Total Protein 7.2 (6.3-8.2) g/dL Albumin 4.0 (3.5-5.0) g/dL Current Medications Generic Name Dose Route Start Last Admin Trade Name Freq PRN Reason Stop Dose Admin Hydrocodone Bitart/Acetaminophen 1 each 06/14/19 16:26 [place] 10 PO Q6HR PRN Pain Albuterol/Ipratropium 3 ml 06/14/19 13:15 06/14/19 15:38 Duoneb 0.5 Mg-3 Mg/3 Ml Soln INHALATION 3 ml RT-QID PRN Administration Shortness Of Breath Or Wheezing Albuterol/Ipratropium 3 ml 06/14/19 20:00 06/15/19 07:56 Duoneb 0.5 Mg-3 Mg/3 Ml Soln INHALATION 3 ml RT-TID [facility] Administration Alprazolam 0.25 mg 06/14/19 21:00 06/14/19 22:22 Xanax PO 0.25 mg HS [facility] Administration Amiodarone HCl 200 mg 06/15/19 09:00 06/15/19 08:26 Cordarone PO 200 mg DAILY [facility] Administration Aspirin 81 mg 06/14/19 21:00 06/14/19 22:22 Aspirin PO 81 mg HS [facility] Administration Atorvastatin Calcium 20 mg 06/14/19 21:00 06/14/19 22:22 Lipitor PO 20 mg HS [facility] Administration Calcium Carbonate 1 each 06/15/19 09:00 06/15/19 08:26 Oscal 500+D PO 1 each DAILY [facility] Administration Citalopram Hydrobromide 20 mg 06/15/19 09:00 06/15/19 08:26 Celexa PO 20 mg DAILY [facility] Administration Famotidine 20 mg 06/14/19 21:00 06/15/19 08:26 Pepcid PO 20 mg BID [facility] Administration Fentanyl 1 patch 06/14/19 17:00 06/14/19 17:56 Duragesic 25mcg/Hr Patch TRANSDERM 1 patch Q72H [facility] Administration Ferrous Sulfate 325 mg 06/14/19 21:00 06/15/19 08:26 Feosol PO 325 mg BID [facility] Administration Furosemide 40 mg 06/14/19 21:00 06/15/19 04:54 Lasix IV 40 mg Q8H [facility] Administration Latanoprost 1 drops 06/14/19 21:00 06/14/19 22:28 Xalatan 0.005% BOTH EYES 1 drops HS [facility] Administration Levothyroxine Sodium 112 mcg 06/15/19 06:30 06/15/19 05:46 Synthroid PO 112 mcg DAILY@0630 [facility] Administration Metoprolol Tartrate 50 mg 06/14/19 16:30 06/15/19 08:26 Lopressor PO 50 mg TID [facility] Administration Multivitamins 1 each 06/14/19 18:00 06/14/19 17:54 Theragran PO 1 each DAILY@1800 [facility] Administration Potassium Chloride 10 meq 06/15/19 09:00 06/15/19 08:26 K-Dur 10 PO 10 meq DAILY [facility] Administration Ropinirole HCl 2 mg 06/14/19 21:00 06/14/19 22:21 Requip PO 2 mg HS [facility] Administration Vitamin E 400 unit 06/14/19 18:00 06/14/19 17:54 Vitamin E PO 400 unit DAILY@1800 [facility] Administration Intake and Output 06/14/19 06/15/19 06/15/19 22:59 06:59 14:59 Intake Total 100 10 200 Output Total 800 1000 Balance 100 -790 -800 Intake: Oral 100 10 200 Output: Urine 800 1000 Other: # Voids 2 1 1 # Bowel Movements 1 1 Weight 85.72 kg 06/14/19 11:37 06/15/19 07:19
[2019-06-16 12:29] VITALS: PULSE 68
[2019-06-16] MEDS: MULTIVITAMINS, THERA 1 EACH TAB PO SCH (17:37)
[2019-06-16] MEDS: VITAMIN E (DL,TOCOPHERYL ACET) 400 UNIT CAP PO SCH (17:37)
--- NOTE | 2019-06-17 00:35 | P.DS ---
Providers Date of admission: 06/15/19 23:10 Expected date of discharge: 06/16/19 Attending physician: Jona Alfonso Consults: 06/14/19 16:29 Consult Physician Routine Consulting Provider: Leandro Pennington Consult Reason/Comments: chf Do you want consulting provider notified?: Yes Primary care physician: Doe Richstefanie [place] Hospital Course: Hospital course: This is a very pleasant 83-year-old patient of Dr. Maya. Chronic stable medical conditions include COPD, paroxysmal atrial fibrillation, hypertension, hyperlipidemia, GERD, osteoarthritis, secondary pulmonary hypertension, hypothyroid, rosacea, osteoarthritis, urine stress incontinence. Diverticulosis. Patient presented with increasing short of breath or extremity edema orthopnea slight cough with frothy sputum. No fever no chills. Had some wheezing. Decreased appetite tired rundown. Chest x-ray showed pulmonary edema. Started on IV Lasix. No chest pain. Admitted with CHF exacerbation. Responded well to IV Lasix. Doing much better today. Back to baseline. There was some bump in the creatinine. Consultation: Dr. MARY Veronica from cardiology Physical examination: VITAL SIGNS: T8, 51, 15, 148/76, 95% on 2 L GENERAL: [Sitting up, breathing better EYES: Pupils equal. Conjunctiva normal. HEENT: External appearance of nose and ears normal, oral cavity grossly normal. NECK: JVD possibly raised; masses not palpable. HEART: First and second heart sounds are normal; edema decreasing. LUNGS: Respiratory rate increased, improved air entry ABDOMEN: Soft, nontender, liver spleen not palpable, no masses palpable. PSYCH: Alert and oriented x3; mood and affect normal. EXTREMITIES: Missing right hand fingers INVESTIGATIONS, reviewed in the clinical context: 2-D echo EF 55-60%, severe mitral regurgitation, moderate mitral stenosis, moderate tricuspid regurgitation, moderate pulmonary hypertension Admission testing Potassium 4 creatinine 1.36 Chest x-ray film personally reviewed by me shows pulmonary edema EKG tracing personally reviewed by me shows left bundle branch block Discharge diagnoses: -Acute on chronic congestive heart failure exacerbation, from diastolic dysfunction EF 55-60%, -Severe mitral regurgitation, moderate mitral stenosis, moderate tricuspid regurgitation Secondary moderate pulmonary hypertension from COPD and CHF -COPD in an ex-smoker -Essential hypertension -Hyperlipidemia -GERD -Primary osteoarthritis -Secondary probably hypertension from COPD -Hypothyroid -Chronic urinary stress incontinence -Chronic diverticulosis -Chronic gait dysfunction uses a cane/walker Disposition: Home Patient Condition at Discharge: Stable Plan - Discharge Summary Discharge Rx Participant: Yes New Discharge Prescriptions: Continue Latanoprost [Xalatan 0.005%] 1 drop BOTH EYES HS Simvastatin [Zocor] 40 mg PO HS Alendronate Sodium [Fosamax] 70 mg PO [facility] Potassium Chloride ER [K-Dur 10] 10 meq PO DAILY Citalopram Hydrobromide [CeleXA] 20 mg PO DAILY Calcium Carbonate/Vitamin D3 [Calcium 600-Vit D3 800 Tab] 1 tab PO DAILY Multivitamins, Thera [Multivitamin (formulary)] 1 tab PO DAILY@1800 Vitamin E (Dl,Tocopheryl Acet) [Vitamin E] 400 unit PO DAILY@1800 rOPINIRole HCL [Requip] 2 mg PO HS fentaNYL 25MCG/HR PATCH [Duragesic 25MCG/HR] 1 patch TRANSDERM Q72H ALPRAZolam [Xanax] 0.25 mg PO HS Ipratropium-Albuterol Nebulize [Duoneb 0.5 mg-3 mg/3 ml Soln] 3 ml INHALATION RT-TID Levothyroxine Sodium [Synthroid] 112 mcg PO DAILY@0630 #30 tab Metoprolol Tartrate [Lopressor] 50 mg PO TID #90 tab Aspirin [[place] Aspirin EC] 81 mg PO HS Ferrous Sulfate [Feosol] 325 mg PO BID HYDROcodone/APAP 10-325MG [[place] 10-325] 1 tab PO Q6HR PRN PRN Reason: Pain Famotidine [Pepcid] 20 mg PO BID Amiodarone [Cordarone] 200 mg PO DAILY #0 Changed Furosemide [Lasix] 40 mg PO BID #60 tab Discharge Medication List Alendronate Sodium [Fosamax] 70 mg PO [facility] 11/30/16 [History] Citalopram Hydrobromide [CeleXA] 20 mg PO DAILY 11/30/16 [History] Latanoprost [Xalatan 0.005%] 1 drop BOTH EYES HS 11/30/16 [History] Potassium Chloride ER [K-Dur 10] 10 meq PO DAILY 11/30/16 [History] Simvastatin [Zocor] 40 mg PO HS 11/30/16 [History] Calcium Carbonate/Vitamin D3 [Calcium 600-Vit D3 800 Tab] 1 tab PO DAILY 05/30/17 [History] Multivitamins, Thera [Multivitamin (formulary)] 1 tab PO DAILY@1800 05/30/17 [History] Vitamin E (Dl,Tocopheryl Acet) [Vitamin E] 400 unit PO DAILY@1800 05/30/17 [History] fentaNYL 25MCG/HR PATCH [Duragesic 25MCG/HR] 1 patch TRANSDERM Q72H 11/02/17 [History] rOPINIRole HCL [Requip] 2 mg PO HS 11/02/17 [History] ALPRAZolam [Xanax] 0.25 mg PO HS 01/08/18 [History] Ipratropium-Albuterol Nebulize [Duoneb 0.5 mg-3 mg/3 ml Soln] 3 ml INHALATION RT-TID 08/11/18 [History] Levothyroxine Sodium [Synthroid] 112 mcg PO DAILY@0630 #30 tab 09/10/18 [Rx] Metoprolol Tartrate [Lopressor] 50 mg PO TID #90 tab 09/10/18 [Rx] Aspirin [[place] Aspirin EC] 81 mg PO HS 12/25/18 [History] Ferrous Sulfate [Feosol] 325 mg PO BID 12/25/18 [History] HYDROcodone/APAP 10-325MG [[place] 10-325] 1 tab PO Q6HR PRN 12/25/18 [History] Famotidine [Pepcid] 20 mg PO BID 02/13/19 [History] Amiodarone [Cordarone] 200 mg PO DAILY #0 02/16/19 [Rx] Furosemide [Lasix] 40 mg PO BID #60 tab 06/16/19 [Rx] Follow up Appointment(s)/Referral(s): Reyes Connelly MD [STAFF PHYSICIAN] - 06/26/19 8:45 am Delano Maya MD [Primary Care Provider] - 06/17/19 9:40 am (Follow up with [facility] lab draw Elevated labs as of 06/16/19: BUN 48 Creatnine 1.36) Ambulatory/Diagnostic Orders: Basic Metabolic Panel [LAB.AMB] Time Frame: 06/22/19, Location: None Selected Patient Instructions/Handouts: Heart Failure (DC) Discharge Disposition: HOME SELF-CARE
[2019-06-17] MEDS ORDERED: ENOXAPARIN 30 MG/0.3 ML SYRINGE SQ SCH (09:00)
[2019-06-17] MEDS ORDERED: FUROSEMIDE 10 MG/ML 4 ML VIAL IV SCH (09:00)
== END 2019-06-16 18:44 | disposition home or self-care (01) | DRG 291 ==
LOC: EC 10:35 → 4SSUR 13:30 → OBSVTOIN 06-15 23:10
PROVIDERS: ADMIT Hospitalist; ATTEND Hospitalist
DX: I13.0 Hypertensive heart and chronic kidney disease with heart failure and stage 1 through stage 4 chronic kidney disease, or unspecified chronic kidney disease (principal); I50.33 Acute on chronic diastolic (congestive) heart failure; J96.11 Chronic respiratory failure with hypoxia; E03.9 Hypothyroidism, unspecified; E78.5 Hyperlipidemia, unspecified; I08.1 Rheumatic disorders of both mitral and tricuspid valves; I27.29 Other secondary pulmonary hypertension; I44.7 Left bundle-branch block, unspecified; I48.0 Paroxysmal atrial fibrillation; N18.3 Chronic kidney disease, stage 3 (moderate); Z87.891 Personal history of nicotine dependence; J44.9 Chronic obstructive pulmonary disease, unspecified; K21.9 Gastro-esophageal reflux disease without esophagitis; K57.90 Diverticulosis of intestine, part unspecified, without perforation or abscess without bleeding; L71.9 Rosacea, unspecified; M15.9 Polyosteoarthritis, unspecified; N39.3 Stress incontinence (female) (male); Z79.82 Long term (current) use of aspirin; Z79.83 Long term (current) use of bisphosphonates; Z79.890 Hormone replacement therapy; Z79.899 Other long term (current) drug therapy; Z85.038 Personal history of other malignant neoplasm of large intestine; I69.328 Other speech and language deficits following cerebral infarction; Z88.1 Allergy status to other antibiotic agents; Z88.5 Allergy status to narcotic agent; Z88.2 Allergy status to sulfonamides; Z86.010 Personal history of colon polyps; Z87.19 Personal history of other diseases of the digestive system; Z98.42 Cataract extraction status, left eye; Z98.41 Cataract extraction status, right eye; Z89.021 Acquired absence of right finger(s); Z87.01 Personal history of pneumonia (recurrent); Z91.81 History of falling; Z98.1 Arthrodesis status; Z81.1 Family history of alcohol abuse and dependence; Z82.0 Family history of epilepsy and other diseases of the nervous system; R26.9 Unspecified abnormalities of gait and mobility; Z92.21 Personal history of antineoplastic chemotherapy; Z92.3 Personal history of irradiation; K59.00 Constipation, unspecified; Z79.891 Long term (current) use of opiate analgesic
CPT/HCPCS: 36415; 71046; 80048; 80053; 83735; 83880; 84484; 85025; 85610; 85730; 93005; 93306; 94640; 94760; 96374; 99291

== ENCOUNTER 2019-06-20 11:07 | Emergency (ER) | payer MEDICARE ==
--- NOTE | 2019-06-20 11:37 | ED ---
Fall HPI - General Chief Complaint: Fall Stated Complaint: Fall Time Seen by Provider: 06/20/19 11:08 Source: EMS Mode of arrival: EMS - History of Present Illness Initial Comments: 83-year-old female with history of coronary artery disease history of GI bleed presenting today for chief complaint of fall. Patient states that she tripped over the carpet falling striking the right side of her head and face. Patient denies loss of consciousness. Patient denies anticoagulation use. Patient states she does have pain in her right hand, she does have history of previous partial amputation due to injury that occurred 4 years prior. She states she has since fractured the distal forearm. Patient denies headache dizziness visual changes diplopia nausea vomiting. Patient states that other than her right forearm she has no other complaints of pain. She states she is ambulatory she denies neck or back pain. She denies pain at the knees and ankles hips left upper extremity or shoulders. Patient denies any abdominal or chest trauma. Remaining review of system negative. Upon arrival patient has gauze wrapped on head due to a laceration over the right orbit. - Related Data Home Medications Medication Instructions Recorded Confirmed Alendronate Sodium [Fosamax] 70 mg PO SCHMITT 11/30/16 06/14/19 Citalopram Hydrobromide [CeleXA] 20 mg PO DAILY 11/30/16 06/14/19 Latanoprost [Xalatan 0.005%] 1 drop BOTH EYES HS 11/30/16 06/14/19 Potassium Chloride ER [K-Dur 10] 10 meq PO DAILY 11/30/16 06/14/19 Simvastatin [Zocor] 40 mg PO HS 11/30/16 06/14/19 Calcium Carbonate/Vitamin D3 1 tab PO DAILY 05/30/17 06/14/19 [Calcium 600-Vit D3 800 Tab] Multivitamins, Thera [Multivitamin 1 tab PO DAILY@1800 05/30/17 06/14/19 (formulary)] Vitamin E (Dl,Tocopheryl Acet) 400 unit PO DAILY@1800 05/30/17 06/14/19 [Vitamin E] fentaNYL 25MCG/HR PATCH [Duragesic 1 patch TRANSDERM Q72H 11/02/17 06/14/19 25MCG/HR] rOPINIRole HCL [Requip] 2 mg PO HS 11/02/17 06/14/19 ALPRAZolam [Xanax] 0.25 mg PO HS 01/08/18 06/14/19 Ipratropium-Albuterol Nebulize 3 ml INHALATION RT-TID 08/11/18 06/14/19 [Duoneb 0.5 mg-3 mg/3 ml Soln] Aspirin [[place] Aspirin EC] 81 mg PO HS 12/25/18 06/14/19 Ferrous Sulfate [Feosol] 325 mg PO BID 12/25/18 06/14/19 HYDROcodone/APAP 10-325MG [[place] 1 tab PO Q6HR PRN 12/25/18 06/14/19 10-325] Famotidine [Pepcid] 20 mg PO BID 02/13/19 06/14/19 Previous Rx's Medication Instructions Recorded Levothyroxine Sodium [Synthroid] 112 mcg PO DAILY@0630 #30 tab 09/10/18 Metoprolol Tartrate [Lopressor] 50 mg PO TID #90 tab 09/10/18 Amiodarone [Cordarone] 200 mg PO DAILY #0 02/16/19 Furosemide [Lasix] 40 mg PO BID #60 tab 06/16/19 Allergies Allergy/AdvReac Type Severity Reaction Status Date / Time codeine AdvReac Confusion Verified 06/14/19 12:38 sulfamethoxazole AdvReac Nausea & Verified 06/14/19 12:38 [From Bactrim] Vomiting trimethoprim [From Bactrim] AdvReac Nausea & Verified 06/14/19 12:38 Vomiting Review of Systems ROS Statement: Those systems with pertinent positive or pertinent negative responses have been documented in the HPI. ROS Other: All systems not noted in ROS Statement are negative. Past Medical History Past Medical History: Atrial Fibrillation, Asthma, Cancer, Heart Failure, COPD, CVA/TIA, Eye Disorder, GERD/Reflux, GI Bleed, Hyperlipidemia, Hypertension, Osteoarthritis (OA), Pneumonia, Renal Disease, Skin Disorder, Thyroid Disorder, Vascular Disorder Additional Past Medical History / Comment(s): GI bleed with acute blood loss anemia, thrombocytopenia, gastritis/duodenitis, 2002 colon cancer with surgery/chemo and radiation, chronic hypoxic respiratory failure, home O2 at 2L/NC ATC, pulmonary HTN, pleurisy, chronic kidney disease stage III, CVA with slight speech difficulty, heart murmur, glaucoma bilaterally, hypothyroid, rosacia, UTIs, urine stress incontinence, constipation, arthritis multiple joints, chronic low back pain, past fall with L hip fracture and R patellar fracture, rib fracture, sinus problems. 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 done(donor site was abd), bilateral carpal tunnel releases, R patella fused d/t fracture, krista cataracts, colonoscopy/polypectomy Past Anesthesia/Blood Transfusion Reactions: No Reported Reaction Past Psychological History: No Psychological Hx Reported Smoking Status: Former smoker Past Alcohol Use History: None Reported Past Drug Use History: None Reported - Past Family History Father Family Medical History: Liver Disease Additional Family Medical History / Comment(s): ETOH abuse - cirrhosis of the liver Mother Family Medical History: Neurologic Disorder Additional Family Medical History / Comment(s): Brain aneurysm General Exam - General Exam Comments Initial Comments: General: The patient is awake and alert, in no distress, and does not appear acutely ill. Eye: +3 mm pupils are equal, round and reactive to light, extra-ocular movements are intact, no pain with extraocular eye movements. No nystagmus. There is normal conjunctiva bilaterally. No signs of icterus. Ears, nose, mouth and throat: There are moist mucous membranes and no oral lesions. No raccoon or Maher sign. Large hematoma superior to right orbit with small abrasion. Neck: The neck is supple, there is no tenderness or JVD. Cardiovascular: There is a regular rate and rhythm. No murmur, rub or gallop is appreciated. Respiratory: Lungs are clear to auscultation, respirations are non-labored, breath sounds are equal. No wheezes, stridor, rales, or rhonchi. Gastrointestinal: Soft, non-distended, non-tender abdomen without masses or organomegaly noted. There is no rebound or guarding present. Musculoskeletal: Right partial hand amputation on gross inspection. No evidence of lacerations or abrasions of the upper x-rays bilaterally. No significant soft tissue swelling patient has point localized tenderness to the distal radius of the right forearm. Normal ROM, no tenderness elbows shoulders hips knees ankles bilaterally. Strength 5/5. Sensation intact. Radial and D P pulses equal bilaterally 2+. Log roll (-). Neurological: A&O x 3. CN II-XII intact, There are no obvious motor or sensory deficits. Coordination appears grossly intact. Speech is normal. Skin: Skin is warm and dry and no rashes or lesions are noted. Psychiatric: Cooperative, appropriate mood & affect, normal judgment. Limitations: physical limitation Course Vital Signs 06/20/19 06/20/19 11:09 13:02 Temperature 97.7 F 97.6 F Pulse Rate 54 L 55 L Respiratory 18 13 Rate Blood Pressure 179/61 165/55 O2 Sat by Pulse 96 93 L Oximetry Medical Decision Making - Medical Decision Making 83-year-old female presenting for fall with head injury. Patient has a large hematoma superior to the right orbit. There is no evidence of large laceration only small abrasions. Patient denies visual changes. No focal neurological deficits. Patient is not on anticoagulation therapy fall was from standing. Patient denies loss of consciousness. CT of the brain C-spine negative for acute process. Patient complaining of localized right forearm tenderness. There is evidence of an acute distal radius fracture. Patient neurovascular intact. Slit was applied. She has no current complaints. She appears well ambulatory/pain controlled. At this time after discussing the case with Dr. Delong who is agreeable with discharge and return parameters. Disposition Clinical Impression: Fall, Traumatic ecchymosis of right orbit, Distal radius fracture, right, Head injury Disposition: HOME SELF-CARE Condition: Good Instructions (If sedation given, give patient instructions): Fall Prevention for Older Adults (ED) Additional Instructions: Please use medication as discussed. Please follow-up with family doctor in the next 2 days of symptoms have not improved. Please return to emergency room if the symptoms increase or worsen or for any other concerns. Is patient prescribed a controlled substance at d/c from ED?: No Referrals: Delano Maya MD [Primary Care Provider] - 1-2 days Pieter Connor MD [STAFF PHYSICIAN] - 1-2 days Time of Disposition: 12:32
--- NOTE | 2019-06-20 12:03 | CT ---
EXAMINATION TYPE: CT facial bones wo con DATE OF EXAM: 06/20/2019 COMPARISON: None HISTORY: Fall today with Right orbital injury CT DLP: 1059 mGycm Automated exposure control for dose reduction was used. TECHNIQUE: CT scan of the sinuses is performed without contrast, axial images are obtained, coronal r eformatted images are also reviewed. FINDINGS: Hypertrophic change of the vertebral column. Visualized mastoid air cells are clear. Change s of chronic sinusitis with nasal septal deviation. Large soft tissue hematoma overlying the right or bit. Extends over the right frontal bone. Carotid artery atherosclerotic changes noted. Shotty adenop athy noted within the neck. Parotid glands symmetric. Oropharynx and nasopharynx symmetric. The globe is intact. Hyperostosis of the frontal calvarium. IMPRESSION: 1. Large soft tissue hematoma overlying the right orbit and frontal bone with no definite acute fract ure.
--- NOTE | 2019-06-20 12:10 | CT ---
EXAMINATION TYPE: CT brain busterine wo con DATE OF EXAM: 06/20/2019 COMPARISON: 10/06/2012 HISTORY: Fall today with Right orbital injury CT DLP: 1059 mGycm Automated exposure control for dose reduction was used. TECHNIQUE: CT scan of the head and cervical spine are performed without contrast. FINDINGS: Large soft tissue hematoma overlying the right frontal and periorbital region. Patient is rotated which limits the exam. There is encephalomalacia involving the right frontal and left parietal lobes. No acute hemorrhage or mass effect. Intracranial atherosclerotic changes noted. Degenerative changes seen. Low-attenuation the white matter is nonspecific but most typical remote mi crovascular ischemia. Assessment spinal canal is nondiagnostic due to resolution and artifact. Multilevel degenerative disc disease and facet arthropathy noted with most marked findings at C5-6 and C6-C7. Foraminal encroachm ent suspected at both levels. Assessment for canal stenosis limited. Minimal anterolisthesis C3 on C4 appears degenerative. Multilevel facet arthropathy and foraminal encroachment. Could not exclude can al stenosis. Recommend follow-up MRI. IMPRESSION: 1. There is no acute fracture or dislocation evident in the cervical spine. Multilevel degenerative d isc disease and facet arthropathy with foraminal encroachment recommend follow-up MRI. 2. No acute intracranial hemorrhage, mass effect, or midline shift is seen. Degenerative and remote i schemic change with large soft tissue hematoma overlying the right frontal bone and right periorbital region.
--- NOTE | 2019-06-20 12:11 | XR ---
EXAMINATION TYPE: XR forearm RT DATE OF EXAM: 06/20/2019 COMPARISON: NONE HISTORY: Pain Two views of the forearm demonstrate a chronic deformity involving the distal radius and ulna suggest laura of remote trauma. Arthropathy of the elbow joint and radioulnar joint noted. There is evidence of previous amputations involving the second through fifth digits of the hand. Chronic deformity of the first metacarpal. Diffuse osteopenia. Findings are compatible with an intra-articular fracture of the distal radius. Assessment of the scap hoid is limited. Could not exclude scaphoid injury. IMPRESSION: 1. Acute intra-articular fracture distal radius. 2. Remote trauma with evidence of previous surgery.
[2019-06-20 13:03] VITALS: BP 165/55; PULSE 55; RESP 13; TEMP 97.6
== END 2019-06-20 12:58 | disposition home or self-care (01) ==
LOC: EC 11:07
DX: S52.501A Unspecified fracture of the lower end of right radius, initial encounter for closed fracture (principal); S00.11XA Contusion of right eyelid and periocular area, initial encounter; J44.9 Chronic obstructive pulmonary disease, unspecified; I13.0 Hypertensive heart and chronic kidney disease with heart failure and stage 1 through stage 4 chronic kidney disease, or unspecified chronic kidney disease; I50.9 Heart failure, unspecified; N18.3 Chronic kidney disease, stage 3 (moderate); E78.5 Hyperlipidemia, unspecified; I25.10 Atherosclerotic heart disease of native coronary artery without angina pectoris; M19.90 Unspecified osteoarthritis, unspecified site; E03.9 Hypothyroidism, unspecified; H40.9 Unspecified glaucoma; D50.0 Iron deficiency anemia secondary to blood loss (chronic); J96.11 Chronic respiratory failure with hypoxia; K21.9 Gastro-esophageal reflux disease without esophagitis; Z87.891 Personal history of nicotine dependence; Z88.2 Allergy status to sulfonamides; Z88.5 Allergy status to narcotic agent; Z79.82 Long term (current) use of aspirin; Z79.891 Long term (current) use of opiate analgesic; Z79.899 Other long term (current) drug therapy; Z86.73 Personal history of transient ischemic attack (TIA), and cerebral infarction without residual deficits; Z87.01 Personal history of pneumonia (recurrent); Z85.038 Personal history of other malignant neoplasm of large intestine; Z92.21 Personal history of antineoplastic chemotherapy; Z92.3 Personal history of irradiation; Z99.81 Dependence on supplemental oxygen; Z87.448 Personal history of other diseases of urinary system; Z89.111 Acquired absence of right hand; Z89.021 Acquired absence of right finger(s); Z87.81 Personal history of (healed) traumatic fracture; W01.0XXA Fall on same level from slipping, tripping and stumbling without subsequent striking against object, initial encounter; Y92.009 Unspecified place in unspecified non-institutional (private) residence as the place of occurrence of the external cause
CPT/HCPCS: 29125; 70450; 70486; 72125; 99284

== ENCOUNTER 2019-08-11 08:48 | Day surgery (SDC) | payer MEDICARE ==
[2019-08-10 09:18] VITALS: BMI 32.2
[~2019-08-11 08:48] MED LIST: LACTATED RINGERS 1,000 ML IV SCH; LIDOCAINE 1% 20 ML VIAL (10MG/ML) FOR IV START INTRADERMA PRN
[2019-08-11 09:28] VITALS: RESP 16; TEMP 98.1
[2019-08-11] MEDS ORDERED: PROPOFOL 10 MG/ML 20 ML VIAL IV ONE (09:46)
[2019-08-11 10:25] VITALS: PULSE 58
--- NOTE | 2019-08-11 10:25 | P.PCN ---
Date of Procedure: 08/11/19 Description of Procedure: BRIEF HISTORY: 83-year-old female with multiple medical comorbidities who presents for outpatient colonoscopy. She was initially seen and the hospital complaining of shortness of breath found to be severely anemic with EGD and colonoscopy performed on 09/09/2018. The patient has a remote history of colon cancer treated with surgical intervention as well as chemoradiation. At that time EGD was significant for gastritis, duodenitis and a hiatal hernia and colonoscopy was significant for diverticulosis and polypectomy. PROCEDURE PERFORMED: Colonoscopy. PREOPERATIVE DIAGNOSIS: History of polyps, rectal bleeding. ESTIMATED BLOOD LOSS: Minimal. IV sedation per Anesthesia. PROCEDURE: After informed consent was obtained, the patient, was brought into the endoscopy unit. IV sedation was administered by Anesthesia under continuous monitoring. Digital rectal examination was normal. Initially the Olympus CF-190 flexible video colonoscope was then inserted in the rectum, gradually advanced into the cecum without any difficulty. Careful examination was performed as the scope was gradually being withdrawn. Ileocecal valve and the appendiceal orifice were visualized and appeared normal. Prep was excellent. Mucosa of the cecum, ascending colon, transverse colon, descending colon, sigmoid colon, and rectum appeared normal. A few scattered diverticula noted in the sigmoid colon. Retroflexion was performed in the rectum and no lesions were seen, low-grade internal hemorrhoids. The patient tolerated the procedure well. IMPRESSION: Mild sigmoid diverticulosis. RECOMMENDATIONS: Findings of this examination were discussed with the patient and her son. Okay to resume diet. Okay to resume medications. Would recommend a colonoscopy in 5 years if patient is medically stable.
[2019-08-11 10:37] VITALS: BP 156/62
== END 2019-08-11 11:01 | disposition home or self-care (01) ==
LOC: ORWHC2ENDO 08:48
PROVIDERS: ATTEND Internal Medicine
DX: K57.30 Diverticulosis of large intestine without perforation or abscess without bleeding (principal); K64.8 Other hemorrhoids; K62.5 Hemorrhage of anus and rectum; K21.9 Gastro-esophageal reflux disease without esophagitis; Z86.010 Personal history of colon polyps; Z87.891 Personal history of nicotine dependence; I11.0 Hypertensive heart disease with heart failure; I50.9 Heart failure, unspecified; E78.5 Hyperlipidemia, unspecified; I48.91 Unspecified atrial fibrillation; J44.9 Chronic obstructive pulmonary disease, unspecified; Z99.81 Dependence on supplemental oxygen; E07.9 Disorder of thyroid, unspecified; N28.9 Disorder of kidney and ureter, unspecified; Z86.73 Personal history of transient ischemic attack (TIA), and cerebral infarction without residual deficits; F32.9 Major depressive disorder, single episode, unspecified; Z79.890 Hormone replacement therapy; Z79.891 Long term (current) use of opiate analgesic; Z79.899 Other long term (current) drug therapy; Z88.5 Allergy status to narcotic agent; Z88.2 Allergy status to sulfonamides
CPT/HCPCS: 45378; J2704

== ENCOUNTER 2019-08-31 09:42 | Emergency (ER) | payer MEDICARE ==
[2019-08-31 09:52] VITALS: PULSE 61; TEMP 98.3
[2019-08-31 10:33] VITALS: RESP 20
--- NOTE | 2019-08-31 10:48 | XR ---
EXAMINATION TYPE: XR chest 2V DATE OF EXAM: 08/31/2019 COMPARISON: 06/16/[address] 02/14/2019 HISTORY: 83-year-old female, and history of COPD TECHNIQUE: PA and lateral views FINDINGS: Heart upper limits of normal in size. Diffuse interstitial prominence. Some increased mild patchy rig ht mid and lower lung density. No pleural effusion. Vertebral compression collapse lower thoracic spi ne is unchanged. Mild anterior wedging at the thoracolumbar junction is stable from 02/14/2019. IMPRESSION: 1. Borderline heart size, unchanged. 2. Some mild patchy right mid and lower lung areas of atelectasis versus early infiltrate.
[2019-08-31] MEDS ORDERED: cefTRIAXone 1,000 MG VIAL (IM USE) IM STA (11:09)
--- NOTE | 2019-08-31 11:13 | ED ---
URI HPI - General Chief Complaint: Upper Respiratory Infection Stated Complaint: Cough Time Seen by Provider: 08/31/19 10:03 Source: patient Mode of arrival: ambulatory Limitations: no limitations - History of Present Illness Initial Comments: Patient is an 83-year-old female presenting to the emergency Department with complaints of a cough 5 days. Patient has history of COPD and uses 2 L oxygen at home continuous. Patient states she is coughing up yellow-colored sputum. Patient denies fever, chills, shortness breath, wheezing, trouble breathing. Patient states she feels okay except for this cough. Patient states she has had pneumonia in the past and does not want to get worse. Patient has tried her regular cough medications without improvement. Patient has no other complaints at this time. Upon arrival to ER, O2 is at 91% however patient is not on oxygen at this time. Rest of vitals are normal, afebrile. - Related Data Home Medications Medication Instructions Recorded Confirmed Alendronate Sodium [Fosamax] 70 mg PO SCHMITT 11/30/16 08/31/19 Citalopram Hydrobromide [CeleXA] 20 mg PO DAILY 11/30/16 08/31/19 Latanoprost [Xalatan 0.005%] 1 drop BOTH EYES HS 11/30/16 08/31/19 Potassium Chloride ER [K-Dur 10] 10 meq PO DAILY 11/30/16 08/31/19 Simvastatin [Zocor] 40 mg PO HS 11/30/16 08/31/19 Calcium Carbonate/Vitamin D3 1 tab PO DAILY 05/30/17 08/31/19 [Calcium 600-Vit D3 800 Tab] Multivitamins, Thera [Multivitamin 1 tab PO DAILY@1800 05/30/17 08/31/19 (formulary)] Vitamin E (Dl,Tocopheryl Acet) 400 unit PO DAILY@1800 05/30/17 08/31/19 [Vitamin E] fentaNYL 25MCG/HR PATCH [Duragesic 1 patch TRANSDERM Q72H 11/02/17 08/31/19 25MCG/HR] rOPINIRole HCL [Requip] 2 mg PO HS 11/02/17 08/31/19 ALPRAZolam [Xanax] 0.25 mg PO HS 01/08/18 08/31/19 Ipratropium-Albuterol Nebulize 3 ml INHALATION RT-TID 08/11/18 08/31/19 [Duoneb 0.5 mg-3 mg/3 ml Soln] Aspirin [[place] Aspirin EC] 81 mg PO HS 12/25/18 08/31/19 Ferrous Sulfate [Feosol] 325 mg PO BID 12/25/18 08/31/19 HYDROcodone/APAP 10-325MG [[place] 1 tab PO Q6HR PRN 12/25/18 08/31/19 10-325] Famotidine [Pepcid] 20 mg PO DAILY 02/13/19 08/31/19 Albuterol Sulfate [Proair Hfa] 1 - 2 puff INHALATION RT-Q6H PRN 08/10/19 08/31/19 Amiodarone [Cordarone] 200 mg PO BID 08/31/19 08/31/19 Docusate [Colace] 200 mg PO DAILY 08/31/19 08/31/19 Previous Rx's Medication Instructions Recorded Levothyroxine Sodium [Synthroid] 112 mcg PO DAILY@0630 #30 tab 09/10/18 Metoprolol Tartrate [Lopressor] 50 mg PO TID #90 tab 09/10/18 Furosemide [Lasix] 40 mg PO BID #60 tab 06/16/19 Levofloxacin 750 mg PO DAILY 5 Days #5 tablet 08/31/19 Allergies Allergy/AdvReac Type Severity Reaction Status Date / Time codeine AdvReac does not Verified 08/31/19 10:[address] it makes her feel sulfamethoxazole AdvReac does not Verified 08/31/19 10:54 [From Bactrim] like the way it makes her feel trimethoprim [From Bactrim] AdvReac does not Verified 08/31/19 10:[address] it makes her feel Review of Systems ROS Statement: Those systems with pertinent positive or pertinent negative responses have been documented in the HPI. ROS Other: All systems not noted in ROS Statement are negative. Past Medical History Past Medical History: Atrial Fibrillation, Asthma, Cancer, Heart Failure, COPD, CVA/TIA, Eye Disorder, GERD/Reflux, GI Bleed, Hyperlipidemia, Hypertension, Osteoarthritis (OA), Pneumonia, Renal Disease, Skin Disorder, Thyroid Disorder, Vascular Disorder Additional Past Medical History / Comment(s): Hx of GI bleed with acute blood loss anemia, thrombocytopenia, gastritis/duodenitis, 2002 colon cancer with surgery/chemo and radiation, chronic hypoxic respiratory failure, home O2 at 2L/NC ATC, pulmonary HTN, pleurisy, chronic kidney disease stage III, CVA with slight speech difficulty, heart murmur, glaucoma bilaterally, hypothyroid, rosacia, UTIs, urine stress incontinence, constipation, arthritis multiple joints, chronic low back pain, past fall with L hip fracture and R patellar fracture, rib fracture, sinus problems., diverticulosis, polyps, leaky heart valves. 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 done(donor site was abd), bilateral carpal tunnel releases, R patella fused d/t fracture, krista cataracts, colonoscopy/polypectomy Past Anesthesia/Blood Transfusion Reactions: No Reported Reaction Past Psychological History: No Psychological Hx Reported Smoking Status: Former smoker Past Alcohol Use History: None Reported Past Drug Use History: None Reported - Past Family History Father Family Medical History: Liver Disease Additional Family Medical History / Comment(s): ETOH abuse - cirrhosis of the liver Mother Family Medical History: Neurologic Disorder Additional Family Medical History / Comment(s): Brain aneurysm General Exam - General Exam Comments Initial Comments: GENERAL: Well-appearing, well-nourished and in no acute distress. HEAD: Atraumatic, normocephalic. EYES: Pupils equal round and reactive to light, extraocular movements intact, sclera anicteric, conjunctiva are normal. ENT: TMs normal, nares patent, oropharynx clear without exudates. Moist mucous membranes. NECK: Normal range of motion, supple without lymphadenopathy or JVD. LUNGS: Breath sounds slightly decreased on the right lower lobe, No wheezes rales or rhonchi. HEART: Regular rate and rhythm without murmurs, rubs or gallops. ABDOMEN: Soft, nontender, normoactive bowel sounds. No guarding, no rebound. No masses appreciated. : Deferred EXTREMITIES: Normal range of motion, no pitting or edema. No clubbing or cyanosis. NEUROLOGICAL: Cranial nerves II through XII grossly intact. Normal speech, normal gait. PSYCH: Normal mood, normal affect. SKIN: Warm, Dry, normal turgor, no rashes or lesions noted. Limitations: no limitations Course Vital Signs 08/31/19 08/31/19 08/31/19 09:49 10:31 11:22 Temperature 98.3 F 98.3 F Pulse Rate 61 61 Respiratory 19 20 20 Rate Blood Pressure 163/70 172/58 O2 Sat by Pulse 91 L 95 Oximetry Medical Decision Making - Medical Decision Making Patient is an 83-year-old female presenting with a cough 5 days. Patient has history of COPD. Chest x-ray shows some mild patchy right mid and lower lung areas of atelectasis versus early infiltrate. Given patient's history and symptoms patient be treated with antibiotics for possible early pneumonia. Patient will be given 1 g of Rocephin before DC and will be started on levof loxacin. Patient's O2 a steady 97% on 2 L. Patient is in agreement with this plan of care. Patient will continue to use her nebulizers and inhalers at home. Return parameters were discussed with the patient she verbalized understanding. Case discussed with Dr. Lewis. Disposition Clinical Impression: Pneumonia, Cough Disposition: HOME SELF-CARE Condition: Stable Instructions (If sedation given, give patient instructions): Community Acquired Pneumonia (ED) Additional Instructions: Please return to the Emergency Department if symptoms worsen or any other concerns. Continue with at-home inhalers and breathing treatments as discussed. Take antibiotics as prescribed. Prescriptions: Levofloxacin 750 mg PO DAILY 5 Days #5 tablet Is patient prescribed a controlled substance at d/c from ED?: No Referrals: Delano Maya MD [Primary Care Provider] - 1-2 days
[2019-08-31 11:26] VITALS: BP 172/58
== END 2019-08-31 11:26 | disposition home or self-care (01) ==
LOC: EC 09:42
DX: J18.9 Pneumonia, unspecified organism (principal); I48.91 Unspecified atrial fibrillation; I13.0 Hypertensive heart and chronic kidney disease with heart failure and stage 1 through stage 4 chronic kidney disease, or unspecified chronic kidney disease; I50.9 Heart failure, unspecified; N18.3 Chronic kidney disease, stage 3 (moderate); J44.0 Chronic obstructive pulmonary disease with (acute) lower respiratory infection; K21.9 Gastro-esophageal reflux disease without esophagitis; E78.5 Hyperlipidemia, unspecified; I10 Essential (primary) hypertension; M19.90 Unspecified osteoarthritis, unspecified site; J96.11 Chronic respiratory failure with hypoxia; H40.9 Unspecified glaucoma; D62 Acute posthemorrhagic anemia; K59.00 Constipation, unspecified; Z87.891 Personal history of nicotine dependence; Z88.2 Allergy status to sulfonamides; Z88.5 Allergy status to narcotic agent; Z79.82 Long term (current) use of aspirin; Z79.891 Long term (current) use of opiate analgesic; Z79.899 Other long term (current) drug therapy; Z85.038 Personal history of other malignant neoplasm of large intestine; Z92.21 Personal history of antineoplastic chemotherapy; Z92.3 Personal history of irradiation; Z86.010 Personal history of colon polyps; Z98.890 Other specified postprocedural states; Z99.81 Dependence on supplemental oxygen
CPT/HCPCS: 71046; 99283; 96372; J0696

== ENCOUNTER 2019-10-23 13:09 | Observation (INO) | payer MEDICARE ==
[2019-10-23] MEDS ORDERED: SODIUM CHLORIDE 0.9% 500 ML 500 ML IV STA (13:41)
--- NOTE | 2019-10-23 13:52 | ED ---
General Adult HPI - General Chief complaint: GI Bleed Stated complaint: Rectal bleed, abd cramping Time Seen by Provider: 10/23/19 13:10 Source: patient, RN notes reviewed, old records reviewed Mode of arrival: ambulatory Limitations: no limitations - History of Present Illness Initial comments: This is an 84-year-old female who presents emergency Department with past medical history of colon cancer years ago. Patient states she is not on any blood thinners. Patient states she's been constant in the last few days and today started having bowel movements. Patient states she's been quite a bit of bright red blood per rectum this morning. Patient does not feel lightheaded or dizzy. Patient denies any abdominal pain. Patient denies any new back pain. Patient denies any recent fever chills per patient denies any diarrhea. Patient denies any vomiting. Patient denies chest pain difficulty breathing first breath per patient denies being lightheaded or dizzy. Patient denies headache patient denies numbness or weakness. - Related Data Home Medications Medication Instructions Recorded Confirmed Alendronate Sodium [Fosamax] 70 mg PO SCHMITT 11/30/16 08/31/19 Citalopram Hydrobromide [CeleXA] 20 mg PO DAILY 11/30/16 08/31/19 Latanoprost [Xalatan 0.005%] 1 drop BOTH EYES HS 11/30/16 08/31/19 Potassium Chloride ER [K-Dur 10] 10 meq PO DAILY 11/30/16 08/31/19 Simvastatin [Zocor] 40 mg PO HS 11/30/16 08/31/19 Calcium Carbonate/Vitamin D3 1 tab PO DAILY 05/30/17 08/31/19 [Calcium 600-Vit D3 800 Tab] Multivitamins, Thera [Multivitamin 1 tab PO DAILY@1800 05/30/17 08/31/19 (formulary)] Vitamin E (Dl,Tocopheryl Acet) 400 unit PO DAILY@1800 05/30/17 08/31/19 [Vitamin E] fentaNYL 25MCG/HR PATCH [Duragesic 1 patch TRANSDERM Q72H 11/02/17 08/31/19 25MCG/HR] rOPINIRole HCL [Requip] 2 mg PO HS 11/02/17 08/31/19 ALPRAZolam [Xanax] 0.25 mg PO HS 01/08/18 08/31/19 Ipratropium-Albuterol Nebulize 3 ml INHALATION RT-TID 08/11/18 08/31/19 [Duoneb 0.5 mg-3 mg/3 ml Soln] Aspirin [[place] Aspirin EC] 81 mg PO HS 12/25/18 08/31/19 Ferrous Sulfate [Feosol] 325 mg PO BID 12/25/18 08/31/19 HYDROcodone/APAP 10-325MG [[place]inder 1 tab PO Q6HR PRN 12/25/18 08/31/19 10-325] Famotidine [Pepcid] 20 mg PO DAILY 02/13/19 08/31/19 Albuterol Sulfate [Proair Hfa] 1 - 2 puff INHALATION RT-Q6H PRN 08/10/19 08/31/19 Amiodarone [Cordarone] 200 mg PO BID 08/31/19 08/31/19 Docusate [Colace] 200 mg PO DAILY 08/31/19 08/31/19 Previous Rx's Medication Instructions Recorded Levothyroxine Sodium [Synthroid] 112 mcg PO DAILY@0630 #30 tab 09/10/18 Metoprolol Tartrate [Lopressor] 50 mg PO TID #90 tab 09/10/18 Furosemide [Lasix] 40 mg PO BID #60 tab 06/16/19 Levofloxacin 750 mg PO DAILY 5 Days #5 tablet 08/31/19 Allergies Allergy/AdvReac Type Severity Reaction Status Date / Time codeine AdvReac does not Verified 10/23/19 13:[address] it makes her feel sulfamethoxazole AdvReac does not Verified 10/23/19 13:15 [From Bactrim] like the way it makes her feel trimethoprim [From Bactrim] AdvReac does not Verified 10/23/19 13:[address] it makes her feel Review of Systems ROS Statement: Those systems with pertinent positive or pertinent negative responses have been documented in the HPI. ROS Other: All systems not noted in ROS Statement are negative. Past Medical History Past Medical History: Atrial Fibrillation, Asthma, Cancer, Heart Failure, COPD, CVA/TIA, Eye Disorder, GERD/Reflux, GI Bleed, Hyperlipidemia, Hypertension, Osteoarthritis (OA), Pneumonia, Renal Disease, Skin Disorder, Thyroid Disorder, Vascular Disorder Additional Past Medical History / Comment(s): Hx of GI bleed with acute blood loss anemia, thrombocytopenia, gastritis/duodenitis, 2002 colon cancer with surgery/chemo and radiation, chronic hypoxic respiratory failure, home O2 at 2L/NC ATC, pulmonary HTN, pleurisy, chronic kidney disease stage III, CVA with slight speech difficulty, heart murmur, glaucoma bilaterally, hypothyroid, rosacia, UTIs, urine stress incontinence, constipation, arthritis multiple joints, chronic low back pain, past fall with L hip fracture and R patellar fracture, rib fracture, sinus problems., diverticulosis, polyps, leaky heart valves. 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 done(donor site was abd), bilateral carpal tunnel releases, R patella fused d/t fracture, krista cataracts, colonoscopy/polypectomy Past Anesthesia/Blood Transfusion Reactions: No Reported Reaction Past Psychological History: No Psychological Hx Reported Smoking Status: Former smoker Past Alcohol Use History: None Reported Past Drug Use History: None Reported - Past Family History Father Family Medical History: Liver Disease Additional Family Medical History / Comment(s): ETOH abuse - cirrhosis of the liver Mother Family Medical History: Neurologic Disorder Additional Family Medical History / Comment(s): Brain aneurysm General Exam - General Exam Comments Initial Comments: GENERAL: Patient is well-developed and well-nourished. Patient is nontoxic and well- hydrated and is in mild distress. ENT: Neck is soft and supple. No significant lymphadenopathy is noted. Oropharynx is clear. Moist mucous membranes. Neck has full range of motion without eliciting any pain. EYES: The sclera were anicteric and conjunctiva were pink and moist. Extraocular movements were intact and pupils were equal round and reactive to light. Eyelids were unremarkable. PULMONARY: Unlabored respirations. Good breath sounds bilaterally. No audible rales rhonchi or wheezing was noted. CARDIOVASCULAR: There is a regular rate and rhythm without any murmurs gallops or rubs. ABDOMEN: Soft and nontender with normal bowel sounds. No palpable organomegaly was noted. There is no palpable pulsatile mass. RECTAL: Rectal exam showed no obvious site of bleeding but there was bright red blood per rectum. SKIN: Skin is clear with no lesions or rashes and otherwise unremarkable. NEUROLOGIC: Patient is alert and oriented x3. Cranial nerves II through XII are grossly intact. Motor and sensory are also intact. Normal speech, volume and content. Symmetrical smile. MUSCULOSKELETAL: Normal extremities with adequate strength and full range of motion. No lower extremity swelling or edema. No calf tenderness. LYMPHATICS: No significant lymphadenopathy is noted PSYCHIATRIC: Normal psychiatric evaluation. Limitations: no limitations Course Vital Signs 10/23/19 13:13 Temperature 98.0 F Pulse Rate 60 Respiratory 16 Rate Blood Pressure 174/75 O2 Sat by Pulse 95 Oximetry Medical Decision Making - Medical Decision Making EKG shows normal sinus rhythm at 60 bpm OR interval 250 QRS on a 52 QT interval is 494 QTC is 494. Patient's left bundle branch block. Patient was occult positive. Patient's hemoglobin currently was 11.1 but because the occult positive and according to the patient she had quite a bit of stool we will be keeping the patient admitted Dr. Alfonso he accepted the patient I wrote admitting orders I consult to GI. I will be doing serial CBCs. - Lab Data Result diagrams: 10/23/19 13:50 10/23/19 13:50 Lab Results 10/23/19 10/23/19 10/23/19 Range/Units 13:50 13:50 13:50 WBC 11.1 H (3.8-10.6) k/uL RBC 3.69 L (3.80-5.40) m/uL Hgb 11.6 (11.4-16.0) gm/dL Hct 35.3 (34.0-46.0) % MCV 95.7 (80.0-100.0) fL MCH 31.4 (25.0-35.0) pg MCHC 32.8 (31.0-37.0) g/dL RDW 14.1 (11.5-15.5) % Plt Count 92 L (150-450) k/uL Neutrophils % 81 % Lymphocytes % 12 % Monocytes % 5 % Eosinophils % 0 % Basophils % 0 % Neutrophils # 9.0 H (1.3-7.7) k/uL Lymphocytes # 1.3 (1.0-4.8) k/uL Monocytes # 0.6 (0-1.0) k/uL Eosinophils # 0.1 (0-0.7) k/uL Basophils # 0.0 (0-0.2) k/uL Manual Slide Review Performed RBC Morphology Normal PT (9.0-12.0) sec INR (<1.2) APTT (22.0-30.0) sec Sodium 138 (137-145) mmol/L Potassium 4.0 (3.5-5.1) mmol/L Chloride 101 (98-107) mmol/L Carbon Dioxide 29 (22-30) mmol/L Anion Gap 8 mmol/L BUN 30 H (7-17) mg/dL Creatinine 1.23 H (0.52-1.04) mg/dL Est GFR (CKD-EPI)AfAm 47 (>60 ml/min/1.73 sqM) Est GFR (CKD-EPI)NonAf 41 (>60 ml/min/1.73 sqM) Glucose 108 H (74-99) mg/dL Calcium 9.1 (8.4-10.2) mg/dL Magnesium 1.9 (1.6-2.3) mg/dL Total Bilirubin 0.9 (0.2-1.3) mg/dL AST 35 (14-36) U/L ALT 25 (4-34) U/L Alkaline Phosphatase 71 (38-126) U/L Troponin I (0.000-0.034) ng/mL Total Protein 7.2 (6.3-8.2) g/dL Albumin 4.1 (3.5-5.0) g/dL Stool Occult Blood Positive H (Negative) Blood Type Blood Type Recheck Bld Type Recheck Status Antibody Screen Spec Expiration Date 10/23/19 10/23/19 10/23/19 Range/Units 13:50 13:50 13:50 WBC (3.8-10.6) k/uL RBC (3.80-5.40) m/uL Hgb (11.4-16.0) gm/dL Hct (34.0-46.0) % MCV (80.0-100.0) fL MCH (25.0-35.0) pg MCHC (31.0-37.0) g/dL RDW (11.5-15.5) % Plt Count (150-450) k/uL Neutrophils % % Lymphocytes % % Monocytes % % Eosinophils % % Basophils % % Neutrophils # (1.3-7.7) k/uL Lymphocytes # (1.0-4.8) k/uL Monocytes # (0-1.0) k/uL Eosinophils # (0-0.7) k/uL Basophils # (0-0.2) k/uL Manual Slide Review RBC Morphology PT 10.7 (9.0-12.0) sec INR 1.0 (<1.2) APTT 19.0 L (22.0-30.0) sec Sodium (137-145) mmol/L Potassium (3.5-5.1) mmol/L Chloride (98-107) mmol/L Carbon Dioxide (22-30) mmol/L Anion Gap mmol/L BUN (7-17) mg/dL Creatinine (0.52-1.04) mg/dL Est GFR (CKD-EPI)AfAm (>60 ml/min/1.73 sqM) Est GFR (CKD-EPI)NonAf (>60 ml/min/1.73 sqM) Glucose (74-99) mg/dL Calcium (8.4-10.2) mg/dL Magnesium (1.6-2.3) mg/dL Total Bilirubin (0.2-1.3) mg/dL AST (14-36) U/L ALT (4-34) U/L Alkaline Phosphatase (38-126) U/L Troponin I 0.023 (0.000-0.034) ng/mL Total Protein (6.3-8.2) g/dL Albumin (3.5-5.0) g/dL Stool Occult Blood (Negative) Blood Type AB Positive Blood Type Recheck AB Pos Bld Type Recheck Status No Antibody Screen NEGATIVE Spec Expiration Date 10/26/20192349 Disposition Clinical Impression: GI bleed Disposition: ADMITTED IP TO THIS [facility] Referrals: Delano Maya MD [Primary Care Provider] - 1-2 days Time of Disposition: 15:16
[2019-10-23 14:43] LABS: Prothrombin Time 10.7 sec (9.0-12.0)
[2019-10-23 14:44] LABS: Albumin 4.1 g/dL (3.5-5.0); Calcium 9.1 mg/dL (8.4-10.2); Magnesium 1.9 mg/dL (1.6-2.3); Total Bilirubin 0.9 mg/dL (0.2-1.3); Total Protein 7.2 g/dL (6.3-8.2)
[2019-10-23 14:45] LABS: Basophils % (A) 0 %; Eosinophils # (A) 0.1 k/uL (0-0.7); Eosinophils % (A) 0 %; HCT 35.3 % (34.0-46.0); HGB 11.6 gm/dL (11.4-16.0); Lymphocytes # (A) 1.3 k/uL (1.0-4.8); Lymphocytes % (A) 12 %; MCH 31.4 pg (25.0-35.0); MCHC 32.8 g/dL (31.0-37.0); MCV 95.7 fL (80.0-100.0); Mean Platelet Volume 10.3; Monocytes # (A) 0.6 k/uL (0-1.0); Monocytes % (A) 5 %; Neutrophils % (A) 81 %; RBC 3.69 m/uL (3.80-5.40); RDW 14.1 % (11.5-15.5); WBC 11.1 k/uL (3.8-10.6)
[2019-10-23 15:05] LABS: Platelet Count 92 k/uL (150-450)
[2019-10-23] MEDS ORDERED: SODIUM CHLORIDE 0.9% 1,000 ML IV ONE (15:16)
[2019-10-23] MEDS ORDERED: HYDROcodone/APAP 10-325MG 1 EACH TAB PO PRN (18:58)
--- NOTE | 2019-10-23 19:05 | CONS ---
CONSULTATION DATE OF DICTATION: 10/23/2019 REASON FOR CONSULTATION: Acute GI bleed. HISTORY OF PRESENTING ILLNESS: The patient is an 84-year-old pleasant white female admitted to the hospital because of bright red blood per rectum that started yesterday morning. She had a couple of episodes yesterday. She thinks she had some constipation and following that had a couple of episodes of bright red blood per rectum. This morning she had dizziness and felt lightheaded and had another couple of bowel movements with bright red blood and hence came into the emergency room and was subsequently admitted to the hospital for further evaluation. Since being on the floor, she had one episode of bright red blood per rectum just half an hour ago. She denies any abdominal pain, reports no nausea, vomiting. Never had these symptoms in the past. She had a colonoscopy by Dr. Frey in August of 2019 on an outpatient basis that showed mild diverticulosis. She denies being on any anticoagulation. She was on Coumadin in the past. PAST MEDICAL HISTORY: Past medical history is significant for: 1. Hypertension. 2. Hyperlipidemia. 3. Gastroesophageal reflux disease. 4. Cardiac arrhythmias. MEDICATIONS: Medications at home include: 1. Calcium. 2. Multivitamin. 3. Vitamin E. 4. Fentanyl patch. 5. Requip. 6. Xanax. 7. Feosol. 8. Aspirin. 9. DuoNeb. 10.Albuterol. 11.Pepcid. 12.[place]. 13.Colace. 14.Cordarone. 15.Potassium. 16.Celexa. 17.Fosamax. 18.Zocor. ALLERGIES: CODEINE. SOCIAL HISTORY: No smoking. No alcohol use. PAST SURGICAL HISTORY: 1. Colonoscopy in August of 2019. 2. History of left hip surgery. 3. Bilateral cataract surgery. 4. Carpal tunnel surgery. FAMILY HISTORY: Father of liver cirrhosis and mother had brain aneurysm. REVIEW OF SYSTEMS: CARDIOPULMONARY: She denies any chest pain or shortness of breath. GENITOURINARY: No dysuria or hematuria. MUSCULOSKELETAL: Unremarkable. SKIN: Unremarkable. ENDOCRINE: Unremarkable. PSYCHIATRIC: Unremarkable. NEUROLOGY: Unremarkable. ENT/VISION: Unremarkable. CONSTITUTIONAL: No recent weight loss. No fever, chills, night sweats. PHYSICAL EXAMINATION: She appears comfortable. No apparent distress. VITAL SIGNS: Stable. Blood pressure is 197/70, pulse rate temperature 98.1. HEENT examination unremarkable. Conjunctivae pink. Sclerae anicteric. Oral cavity no lesions. NECK: No JVD or lymph node enlargement. CHEST: Clear to auscultation. HEART: Regular rate and rhythm. ABDOMEN: Soft. Bowel sounds are positive. No organomegaly. EXTREMITIES: No pedal edema. SKIN: No rashes. NEUROLOGIC: Alert and oriented x3. No focal deficits. LABS: Labs done at the time of admission to the hospital showed hemoglobin 11.1, WBC 11.1, platelets normal. Basic metabolic panel is within normal limits. IMPRESSION: This is a lady who presented to the hospital with rectal bleeding for the last 2 days' duration. She had bright red blood per rectum. No associated abdominal pain. No nausea, vomiting. Hemoglobin is 11.6 g/dL. She did have a colonoscopy by Dr. Frey in August of 2019 that showed scattered sigmoid diverticulosis. Most likely we are dealing with a diverticular bleed at the present time. Doubt upper GI source of bleeding. Patient is clinically stable and hemodynamically stable. RECOMMENDATIONS: 1. Clear liquid diet. 2. CBC every 6 hours. 3. Transfuse if the hemoglobin is less than 7. 4. No plans on any endoscopic intervention at the present time. 5. We will follow her closely during her hospital stay. Thank you for this consultation. AMANDEEPL / MARS: [id number] /
[2019-10-23] MEDS: FUROSEMIDE 40 MG TAB PO SCH (19:25)
[2019-10-23 20:25] LABS: HCT 32.7 % (34.0-46.0); HGB 10.5 gm/dL (11.4-16.0); MCH 31.4 pg (25.0-35.0); MCV 98.2 fL (80.0-100.0); Mean Platelet Volume 10.2; RBC 3.33 m/uL (3.80-5.40); RDW 14.1 % (11.5-15.5); WBC 10.6 k/uL (3.8-10.6)
[2019-10-23 20:26] LABS: Platelet Count 77 k/uL (150-450)
[2019-10-23] MEDS ORDERED: NON FORMULARY DRUG (Aspirin [St. Joseph Aspirin Ec] 81 MG) PO SCH (21:00)
[2019-10-23 21:20] VITALS: RESP 16
[2019-10-23] MEDS: ALPRAZolam 0.25 MG TAB PO SCH (21:20)
[2019-10-23] MEDS: FERROUS SULFATE 325 MG TAB PO SCH (21:20)
[2019-10-23] MEDS: ATORVASTATIN 20 MG TAB PO SCH (21:20)
[2019-10-23] MEDS: DOCUSATE 100 MG CAP PO SCH (21:20)
[2019-10-23] MEDS: METOPROLOL TARTRATE 50 MG TAB PO SCH (21:21)
[2019-10-24 02:23] LABS: HCT 31.9 % (34.0-46.0); HGB 10.6 gm/dL (11.4-16.0); MCH 31.8 pg (25.0-35.0); MCHC 33.3 g/dL (31.0-37.0); MCV 95.5 fL (80.0-100.0); Mean Platelet Volume 10.7; RBC 3.35 m/uL (3.80-5.40); RDW 14.2 % (11.5-15.5); WBC 11.3 k/uL (3.8-10.6)
[2019-10-24 02:29] LABS: Platelet Count 75 k/uL (150-450)
[2019-10-24] MEDS: LEVOTHYROXINE 112 MCG TAB PO SCH (05:54)
[2019-10-24] MEDS: METOPROLOL TARTRATE 50 MG TAB PO SCH ×3 (07:26→21:04)
[2019-10-24] MEDS: FUROSEMIDE 40 MG TAB PO SCH ×2 (07:27→16:08)
[2019-10-24] MEDS: POTASSIUM CHLORIDE ER 10 MEQ TAB.ER.PRT PO SCH (07:27)
[2019-10-24] MEDS: FERROUS SULFATE 325 MG TAB PO SCH ×2 (07:27→21:04)
[2019-10-24] MEDS: CALCIUM CARB-VIT D 500MG-200UN 1 EACH TAB PO SCH (07:27)
[2019-10-24] MEDS: CITALOPRAM HYDROBROMIDE 20 MG TAB PO SCH (07:27)
[2019-10-24 07:54] LABS: HCT 33.3 % (34.0-46.0); HGB 11.2 gm/dL (11.4-16.0); MCH 31.9 pg (25.0-35.0); MCHC 33.5 g/dL (31.0-37.0); MCV 95.2 fL (80.0-100.0); Mean Platelet Volume 10.1; RDW 14.1 % (11.5-15.5); WBC 11.1 k/uL (3.8-10.6)
[2019-10-24 08:27] LABS: Platelet Count 75 k/uL (150-450)
--- NOTE | 2019-10-24 11:00 | PN ---
PROGRESS NOTE DATE OF SERVICE: 10/24/2019 Patient is an 84-year-old pleasant white female admitted to the hospital with acute lower GI bleed. She had multiple episodes of bright red blood per rectum. Yesterday she had about 4 episodes, came to the emergency room and subsequently admitted to the hospital for further evaluation. Her initial hemoglobin was 11.6 and today it is 11.2 g/dL. She had a small bowel movement this morning. She reports no abdominal pain. No nausea, vomiting. PHYSICAL EXAMINATION: Appears comfortable. No apparent distress. VITAL SIGNS: Stable. Blood pressure 142/63, pulse rate 79, temperature 98.1. HEENT examination unremarkable. Conjunctivae pink. Sclerae anicteric. Oral cavity no lesions. Neck: No JVD or lymph node enlargement. Chest was clear to auscultation. HEART: Regular rate and rhythm. ABDOMEN: Soft. Bowel sounds are positive. No organomegaly. Extremities: No pedal edema. Skin no rashes. NEUROLOGIC: Alert and oriented x3. No focal deficits. LABS: From today WBC 11.1, hemoglobin 11.2, platelets are 75,000. IMPRESSION: 1. Acute lower gastrointestinal bleed possibly diverticular in nature. She did have a colonoscopy by Dr. Frey on August of 2019 that showed scattered sigmoid diverticulosis. The patient dropped hemoglobin from 11.6-11.2 g/dL. Bleeding appears to be gradually slowing down. She remains hemodynamically stable. 2. History of hypertension. 3. Hypothyroidism. 4. Hypercholesteremia. RECOMMENDATION: 1. Continue to hold aspirin. 2. CBC every day. 3. Continue with a clear liquid diet today. 4. If hemoglobin remains stable and no further bleeding, we will advance diet as tolerated tomorrow. 5. No plans for any repeat endoscopy intervention at the present time. Thank you for this consultation. MMODL / IJN: [id number] /
[2019-10-24 14:38] LABS: HGB 10.4 gm/dL (11.4-16.0); MCH 31.2 pg (25.0-35.0); MCHC 31.6 g/dL (31.0-37.0); MCV 98.7 fL (80.0-100.0); RBC 3.35 m/uL (3.80-5.40); WBC 8.5 k/uL (3.8-10.6)
[2019-10-24 14:41] LABS: Platelet Count 63 k/uL (150-450)
[2019-10-24] MEDS: MULTIVITAMINS, THERA 1 EACH TAB PO SCH (16:08)
--- NOTE | 2019-10-24 20:00 | P.HPIM ---
History of Present Illness H&P Date: 10/24/19 Chief Complaint: bleeding per rectum history of present complaint: This is a very pleasant 83-year-old patient of Dr. Maya. Chronic stable medical conditions include COPD, paroxysmal atrial fibrillation, hypertension, hyperlipidemia, GERD, osteoarthritis, secondary pulmonary hypertension, hypothyroid, rosacea, osteoarthritis, urine stress incontinence,CHF from diastolic dysfunction EF 55-60%, severe mitral regurgitation, moderate mitral stenosis, moderate tricuspid regurgitation, secondary pulmonary hypertension. Diverticulosis. at her baseline uses a cane and a walker.yesterday morning patient started having bleeding per rectum. Prior to that. Slight abdominal discomfort. No nausea vomiting. Admitted for the same. Patient was made nothing by mouth. GI was consulted. Patient does feel a bit tired and rundown.interval colonoscopy with Dr. Avila and August 2019. That showed diverticulosis. Review of systems: GEN.: Tired EYES: None HEENT: None NECK: None RESPIRATORY: As above CARDIOVASCULAR: As above GASTROINTESTINAL:as above GENITOURINARY: None MUSCULOSKELETAL: Joint pains LYMPHATICS: None HEMATOLOGICAL: None PSYCHIATRY: Bit anxious NEUROLOGICAL: None Past medical history: Right adnexa growth being followed as an outpatient, COPD, paroxysmal atrial fibrillation, hypertension, hyperlipidemia, COPD, GERD, primary osteoarthritis, colon cancer in 2001, secondary pulmonary hypertension, hypothyroid, rosacea, urinary stress incontinence, osteoarthritis chronic diverticulosis, gastritis duodenitis, colon cancer treated with surgery chemoradiation, home oxygen 2 L, chronic kidney disease stage III, stroke with some speech impairment, hypothyroid,chronic congestive heart failure from diastolic dysfunction EF 55- 60%, severe mitral regurgitation, moderate mitral stenosis, moderate tricuspid regurgitation., chronic thrombocytopenia Social history: Lives with son and [id number], home oxygen, has a walker Smoked for 20 years, stopped in 1986, smoked a pack and half Family history: Cirrhosis Physical examination: VITAL SIGNS: 98, 60, 16, 174/75, 95% room air upon presentation GENERAL: sitting at the edge of bed, tiredr EYES: Pupils equal. Conjunctiva patient HEENT: External appearance of nose and ears normal, oral cavity grossly normal. NECK: JVD possibly raised; masses not palpable. HEART: First and second heart sounds are normal; some edema. LUNGS: Respiratory rate normal, decreased air entry ABDOMEN: Soft, nontender, liver spleen not palpable, no masses palpable. PSYCH: Alert and oriented x3; mood and affect normal. EXTREMITIES: Missing right hand fingers INVESTIGATIONS, reviewed in the clinical context: white count 11.1 and hemoglobin 11.6 potassium 4.0 bun 30 crit 1.23platelet 92 This morning hemoglobin is 10.4 EKG tracing personally reviewed by me-left bundle-branch block assessment: -acute lower GI bleed with fresh blood, but no abdominal pain post likely diverticular bleed. It may be noted that patient had prior history of colon cancer. -Acute GI blood loss anemia. 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 Serial H&H are being done. Patient is put on telemetry. GI was consulted. Expect diverticular3 to hopefully settle down on its own.care was discussed with the patient. Questions were answered. Past Medical History Past Medical History: Atrial Fibrillation, Asthma, Cancer, Heart Failure, COPD, CVA/TIA, Eye Disorder, GERD/Reflux, GI Bleed, Hyperlipidemia, Hypertension, Osteoarthritis (OA), Pneumonia, Renal Disease, Skin Disorder, Thyroid Disorder, Vascular Disorder Additional Past Medical History / Comment(s): Hx of GI bleed with acute blood loss anemia, thrombocytopenia, gastritis/duodenitis, 2002 colon cancer with surgery/chemo and radiation, chronic hypoxic respiratory failure, home O2 at 2L/NC ATC, pulmonary HTN, pleurisy, chronic kidney disease stage III, CVA with slight speech difficulty, heart murmur, glaucoma bilaterally, hypothyroid, r osacia, UTIs, urine stress incontinence, constipation, arthritis multiple joints, chronic low back pain, past fall with L hip fracture and R patellar fracture, rib fracture, sinus problems., diverticulosis, polyps, leaky heart valves. Colonoscopy with diagnosed diverticular disease in August 2019. 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 Most recent colonoscopy August 2019. Past Anesthesia/Blood Transfusion Reactions: No Reported Reaction Past Psychological History: No Psychological Hx Reported Additional Psychological History / Comment(s): LIVES WITH SON AND [id number]. Smoking Status: Former smoker Past Alcohol Use History: None Reported Additional Past Alcohol Use History / Comment(s): Pt started smoking 1966. Quit 1986 - smoked 1.5 ppd. Past Drug Use History: None Reported - Past Family History Father Family Medical History: Liver Disease Additional Family Medical History / Comment(s): ETOH abuse - cirrhosis of the liver Mother Family Medical History: Neurologic Disorder Additional Family Medical History / Comment(s): Brain aneurysm Medications and Allergies Home Medications Medication Instructions Recorded Confirmed Type Alendronate Sodium [Fosamax] 70 mg PO SCHMITT 11/30/16 10/23/19 History Citalopram Hydrobromide [CeleXA] 20 mg PO DAILY 11/30/16 10/23/19 History Latanoprost [Xalatan 0.005%] 1 drop BOTH EYES HS 11/30/16 10/23/19 History Potassium Chloride ER [K-Dur 10] 10 meq PO DAILY 11/30/16 10/23/19 History Simvastatin [Zocor] 40 mg PO HS 11/30/16 10/23/19 History Calcium Carbonate/Vitamin D3 1 tab PO DAILY 05/30/17 10/23/19 History [Calcium 600-Vit D3 800 Tab] Multivitamins, Thera [Multivitamin 1 tab PO DAILY@1800 05/30/17 10/23/19 History (formulary)] Vitamin E (Dl,Tocopheryl Acet) 400 unit PO DAILY@1800 05/30/17 10/23/19 History [Vitamin E] fentaNYL 25MCG/HR PATCH [Duragesic 1 patch TRANSDERM Q72H 11/02/17 10/23/19 History 25MCG/HR] rOPINIRole HCL [Requip] 2 mg PO HS 11/02/17 10/23/19 History ALPRAZolam [Xanax] 0.25 mg PO HS 01/08/18 10/23/19 History Ipratropium-Albuterol Nebulize 3 ml INHALATION RT-TID 08/11/18 10/23/19 History [Duoneb 0.5 mg-3 mg/3 ml Soln] Levothyroxine Sodium [Synthroid] 112 mcg PO DAILY@0630 #30 tab 09/10/18 10/23/19 Rx Metoprolol Tartrate [Lopressor] 50 mg PO TID #90 tab 09/10/18 10/23/19 Rx Aspirin [[place] Aspirin EC] 81 mg PO HS 12/25/18 10/23/19 History Ferrous Sulfate [Feosol] 325 mg PO BID 12/25/18 10/23/19 History HYDROcodone/APAP 10-325MG [[place] 1 tab PO Q6H PRN 12/25/18 10/23/19 History 10-325] Furosemide [Lasix] 40 mg PO BID #60 tab 06/16/19 10/23/19 Rx Docusate [Colace] 200 mg PO HS 08/31/19 10/23/19 History Allergies Allergy/AdvReac Type Severity Reaction Status Date / Time codeine AdvReac does not Verified 10/23/19 18:[address] it makes her feel sulfamethoxazole AdvReac does not Verified 10/23/19 18:44 [From Bactrim] like the way it makes her feel trimethoprim [From Bactrim] AdvReac does not Verified 10/23/19 18:[address] it makes her feel Physical Exam Vitals: Vital Signs Temp Pulse Pulse Resp BP BP Pulse Ox 10/24/19 08:00 79 10/24/19 05:48 98.1 F 57 L 16 161/71 99 10/23/19 21:16 99.0 F 60 16 142/63 98 10/23/19 18:14 61 14 180/68 100 10/23/19 16:25 98.1 F 64 16 197/70 96 10/23/19 16:12 97.2 F L 66 20 176/72 99 10/23/19 13:13 98.0 F 60 16 174/75 95 Intake and Output 10/23/19 10/24/19 10/24/19 22:59 06:59 14:59 Intake Total 900 Balance 900 Intake: Intake, IV Titration 900 Amount Sodium Chloride 0.9% 1, 900 000 ml @ 75 mls/hr IV . [id number] ONE Rx#:[id number] Other: Voiding Method Bedside Commode Bedside Commode Bedside Commode # Voids 3 2 # Bowel Movements 3 1 Weight 77.564 kg Results CBC & Chem 7: 10/24/19 14:27 10/23/19 13:50 Labs: Abnormal Lab Results - Last 24 Hours (Table) 10/23/19 10/23/19 10/23/19 Range/Units 13:50 13:50 13:50 WBC 11.1 H (3.8-10.6) k/uL RBC 3.69 L (3.80-5.40) m/uL Hgb (11.4-16.0) gm/dL Hct (34.0-46.0) % Plt Count 92 L (150-450) k/uL Neutrophils # 9.0 H (1.3-7.7) k/uL APTT (22.0-30.0) sec BUN 30 H (7-17) mg/dL Creatinine 1.23 H (0.52-1.04) mg/dL Glucose 108 H (74-99) mg/dL Stool Occult Blood Positive H (Negative) 10/23/19 10/23/19 10/24/19 Range/Units 13:50 20:14 02:13 WBC 11.3 H (3.8-10.6) k/uL RBC 3.33 L 3.35 L (3.80-5.40) m/uL Hgb 10.5 L 10.6 L (11.4-16.0) gm/dL Hct 32.7 L 31.9 L (34.0-46.0) % Plt Count 77 L 75 L (150-450) k/uL Neutrophils # (1.3-7.7) k/uL APTT 19.0 L (22.0-30.0) sec BUN (7-17) mg/dL Creatinine (0.52-1.04) mg/dL Glucose (74-99) mg/dL Stool Occult Blood (Negative) 10/24/19 Range/Units 07:50 WBC 11.1 H (3.8-10.6) k/uL RBC 3.50 L (3.80-5.40) m/uL Hgb 11.2 L (11.4-16.0) gm/dL Hct 33.3 L (34.0-46.0) % Plt Count 75 L (150-450) k/uL Neutrophils # (1.3-7.7) k/uL APTT (22.0-30.0) sec BUN (7-17) mg/dL Creatinine (0.52-1.04) mg/dL Glucose (74-99) mg/dL Stool Occult Blood (Negative) Thrombosis Risk Factor Assmnt - Choose All That Apply Each Factor Represents 1 point: Abnormal pulmonary function (COPD), Obesity (BMI >25) Other Risk Factors: No Each Risk Factor Represents 3 Points: Age 75 years or older Thrombosis Risk Factor Assessment Total Risk Factor Score: 5 Thrombosis Risk Factor Assessment Level: High Risk
[2019-10-24] MEDS: ALPRAZolam 0.25 MG TAB PO SCH (21:03)
[2019-10-24] MEDS: ATORVASTATIN 20 MG TAB PO SCH (21:04)
[2019-10-24] MEDS: DOCUSATE 100 MG CAP PO SCH (21:04)
[2019-10-25 05:13] VITALS: TEMP 97.7
[2019-10-25] MEDS: LEVOTHYROXINE 112 MCG TAB PO SCH (05:38)
[2019-10-25 06:03] LABS: Basophils % (A) 0 %; Eosinophils # (A) 0.3 k/uL (0-0.7); Eosinophils % (A) 3 %; HGB 12.1 gm/dL (11.4-16.0); Hypochromasia Slight; Lymphocytes # (A) 2.2 k/uL (1.0-4.8); Lymphocytes % (A) 22 %; MCV 100.1 fL (80.0-100.0); Macrocytosis Slight; Mean Platelet Volume 9.7; Monocytes # (A) 0.7 k/uL (0-1.0); Monocytes % (A) 7 %; Neutrophils # (A) 6.5 k/uL (1.3-7.7); Neutrophils % (A) 65 %; RBC 3.89 m/uL (3.80-5.40); WBC 9.9 k/uL (3.8-10.6)
[2019-10-25 06:51] LABS: Poikilocytosis (M) Present
[2019-10-25 06:52] LABS: Platelet Count 84 k/uL (150-450)
[2019-10-25] MEDS: FUROSEMIDE 40 MG TAB PO SCH ×2 (08:48→16:28)
[2019-10-25] MEDS: POTASSIUM CHLORIDE ER 10 MEQ TAB.ER.PRT PO SCH (08:48)
[2019-10-25] MEDS: CITALOPRAM HYDROBROMIDE 20 MG TAB PO SCH (08:48)
[2019-10-25] MEDS: FERROUS SULFATE 325 MG TAB PO SCH (08:48)
[2019-10-25] MEDS: CALCIUM CARB-VIT D 500MG-200UN 1 EACH TAB PO SCH (08:48)
[2019-10-25] MEDS: METOPROLOL TARTRATE 50 MG TAB PO SCH ×2 (08:48→16:28)
--- NOTE | 2019-10-25 10:28 | PN ---
PROGRESS NOTE DATE OF SERVICE: October 25, 2019 Patient is an 84-year-old pleasant white female admitted to the hospital with acute lower GI bleed. She had multiple episodes of bright red blood per rectum which was thought to be related to diverticulosis. The patient is doing much better today. She had 1 black stool today. No abdominal pain. No nausea, vomiting. Overall, she is feeling much better. PHYSICAL EXAMINATION: Appears comfortable in no apparent distress. VITAL SIGNS: Stable. Blood pressure 141/67, pulse 82, and afebrile. HEENT examination unremarkable. Conjunctivae pink. Sclerae anicteric. Oral cavity no lesions. NECK: No JVD or lymph node enlargement. CHEST: Clear to auscultation. HEART: Regular rate and rhythm. ABDOMEN: Soft. Bowel sounds are positive. No organomegaly. EXTREMITIES no pedal edema. SKIN no rashes. NEUROLOGIC: Alert and oriented x3. No focal deficits. LABS: From today WBC 9.9, hemoglobin 12.1, platelets 84. Rest of the labs are unremarkable. IMPRESSION: Acute lower gastrointestinal bleed possibly diverticular in etiology. Patient with no active bleeding for the last 2 days. Hemodynamically stable. Hemoglobin stable at 12.1 g/dL. Last colonoscopy [address] Frey showed sigmoid diverticulosis. RECOMMENDATIONS: 1. Advance to regular diet. 2. She can be discharged home today with an outpatient followup in 2-3 weeks. Thank you for this consultation. DUSTY / MARS: [id number] /
[2019-10-25 12:41] VITALS: BP 123/59; PULSE 61
[2019-10-25] MEDS: MULTIVITAMINS, THERA 1 EACH TAB PO SCH (17:13)
[2019-10-25] MEDS ORDERED: NON FORMULARY DRUG (Alendronate Sodium [Fosamax] 70 MG) PO SCH (18:58)
--- NOTE | 2019-10-25 20:29 | P.DS ---
Providers Date of admission: 10/23/19 15:16 Expected date of discharge: 10/25/19 Attending physician: Jona Alfonso Consults: 10/23/19 15:16 Consult Physician Urgent Consulting Provider: Vanessa Pennington Consult Reason/Comments: GI bleed Do you want consulting provider notified?: Yes Primary care physician: Doe Maya [facility] Course: Chief Complaint: bleeding per rectum Hospital course: This is a very pleasant 83-year-old patient of Dr. Maya. Chronic stable medical conditions include COPD, paroxysmal atrial fibrillation, hypertension, hyperlipidemia, GERD, osteoarthritis, secondary pulmonary hypertension, hypothyroid, rosacea, osteoarthritis, urine stress incontinence,CHF from diastolic dysfunction EF 55-60%, severe mitral regurgitation, moderate mitral stenosis, moderate tricuspid regurgitation, secondary pulmonary hypertension. Diverticulosis. at her baseline uses a cane and a walker.yesterday morning patient started having bleeding per rectum. Prior to that. Slight abdominal discomfort. No nausea vomiting. Admitted for the same. Patient was made nothing by mouth. GI was consulted. Patient does feel a bit tired and rundown.interval colonoscopy with Dr. Avila and August 2019. That showed diverticulosis. It was felt that patient's bleeding is diverticular. Patient had no further bleeding. Hemoglobin remained stable. Today-patient tolerated diet. No abdominal pain. IGA to go home. Consultation: Dr. Otilia Pennington from GI Physical examination: VITAL SIGNS: 97.7, 61, 16, 123/59, 90% on room air GENERAL: Sitting up, comfortable EYES: Pupils equal. Conjunctiva pale HEENT: External appearance of nose and ears normal, oral cavity grossly normal. NECK: JVD possibly raised; masses not palpable. HEART: First and second heart sounds are normal; some edema. LUNGS: Respiratory rate normal, decreased air entry ABDOMEN: Soft, nontender, liver spleen not palpable, no masses palpable. PSYCH: Alert and oriented x3; mood and affect normal. EXTREMITIES: Missing right hand fingers INVESTIGATIONS, reviewed in the clinical context: Hemoglobin 12.1 Previous testing white count 11.1 and hemoglobin 11.6 potassium 4.0 bun 30 crit 1.23platelet 92 This morning hemoglobin is 10.4 EKG tracing personally reviewed by me-left bundle-branch block assessment: -acute lower GI bleed with fresh blood, but no abdominal pain post likely diverticular bleed. -Acute GI blood loss anemia. 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 -Left bundle-branch block Disposition: Home Patient Condition at Discharge: Good Plan - Discharge Summary New Discharge Prescriptions: Continue Latanoprost [Xalatan 0.005%] 1 drop BOTH EYES HS Simvastatin [Zocor] 40 mg PO HS Alendronate Sodium [Fosamax] 70 mg PO SCHMITT Potassium Chloride ER [K-Dur 10] 10 meq PO DAILY Citalopram Hydrobromide [CeleXA] 20 mg PO DAILY Calcium Carbonate/Vitamin D3 [Calcium 600-Vit D3 800 Tab] 1 tab PO DAILY Multivitamins, Thera [Multivitamin (formulary)] 1 tab PO DAILY@1800 Vitamin E (Dl,Tocopheryl Acet) [Vitamin E] 400 unit PO DAILY@1800 rOPINIRole HCL [Requip] 2 mg PO HS fentaNYL 25MCG/HR PATCH [Duragesic 25MCG/HR] 1 patch TRANSDERM Q72H ALPRAZolam [Xanax] 0.25 mg PO HS Ipratropium-Albuterol Nebulize [Duoneb 0.5 mg-3 mg/3 ml Soln] 3 ml INHALATION RT-TID Levothyroxine Sodium [Synthroid] 112 mcg PO DAILY@0630 #30 tab Metoprolol Tartrate [Lopressor] 50 mg PO TID #90 tab Aspirin [[place] Aspirin EC] 81 mg PO HS Ferrous Sulfate [Feosol] 325 mg PO BID HYDROcodone/APAP 10-325MG [[place] 10-325] 1 tab PO Q6H PRN PRN Reason: Pain Furosemide [Lasix] 40 mg PO BID #60 tab Docusate [Colace] 200 mg PO HS Discharge Medication List Alendronate Sodium [Fosamax] 70 mg PO SCHMITT 11/30/16 [History] Citalopram Hydrobromide [CeleXA] 20 mg PO DAILY 11/30/16 [History] Latanoprost [Xalatan 0.005%] 1 drop BOTH EYES HS 11/30/16 [History] Potassium Chloride ER [K-Dur 10] 10 meq PO DAILY 11/30/16 [History] Simvastatin [Zocor] 40 mg PO HS 11/30/16 [History] Calcium Carbonate/Vitamin D3 [Calcium 600-Vit D3 800 Tab] 1 tab PO DAILY 05/30/17 [History] Multivitamins, Thera [Multivitamin (formulary)] 1 tab PO DAILY@1800 05/30/17 [History] Vitamin E (Dl,Tocopheryl Acet) [Vitamin E] 400 unit PO DAILY@1800 05/30/17 [History] fentaNYL 25MCG/HR PATCH [Duragesic 25MCG/HR] 1 patch TRANSDERM Q72H 11/02/17 [History] rOPINIRole HCL [Requip] 2 mg PO HS 11/02/17 [History] ALPRAZolam [Xanax] 0.25 mg PO HS 01/08/18 [History] Ipratropium-Albuterol Nebulize [Duoneb 0.5 mg-3 mg/3 ml Soln] 3 ml INHALATION RT-TID 08/11/18 [History] Levothyroxine Sodium [Synthroid] 112 mcg PO DAILY@0630 #30 tab 09/10/18 [Rx] Metoprolol Tartrate [Lopressor] 50 mg PO TID #90 tab 09/10/18 [Rx] Aspirin [[place] Aspirin EC] 81 mg PO HS 12/25/18 [History] Ferrous Sulfate [Feosol] 325 mg PO BID 12/25/18 [History] HYDROcodone/APAP 10-325MG [[place] 10-325] 1 tab PO Q6H PRN 12/25/18 [History] Furosemide [Lasix] 40 mg PO BID #60 tab 06/16/19 [Rx] Docusate [Colace] 200 mg PO HS 08/31/19 [History] Follow up Appointment(s)/Referral(s): Delano Maya MD [Primary Care Provider] - 1-2 days Vanessa Pennington MD [STAFF PHYSICIAN] - 2 Weeks Patient Instructions/Handouts: Asthma (DC), Gastrointestinal Bleeding (DC), COPD (Chronic Obstructive Pulmonary Disease) (DC), Diverticulitis Diet (DC) Discharge Disposition: HOME SELF-CARE
== END 2019-10-25 18:50 | disposition home or self-care (01) ==
LOC: EC 13:09 → 3NMEDONC 15:16 → 5NMEDONC 10-25 07:18
PROVIDERS: ADMIT Hospitalist; ATTEND Hospitalist
DX: K92.2 Gastrointestinal hemorrhage, unspecified (principal); D62 Acute posthemorrhagic anemia; D69.6 Thrombocytopenia, unspecified; E03.9 Hypothyroidism, unspecified; E78.00 Pure hypercholesterolemia, unspecified; E78.5 Hyperlipidemia, unspecified; I08.1 Rheumatic disorders of both mitral and tricuspid valves; I50.33 Acute on chronic diastolic (congestive) heart failure; J44.9 Chronic obstructive pulmonary disease, unspecified; J96.11 Chronic respiratory failure with hypoxia; K21.9 Gastro-esophageal reflux disease without esophagitis; L71.9 Rosacea, unspecified; M19.91 Primary osteoarthritis, unspecified site; N39.3 Stress incontinence (female) (male); Z79.82 Long term (current) use of aspirin; I48.0 Paroxysmal atrial fibrillation; I44.7 Left bundle-branch block, unspecified; I27.29 Other secondary pulmonary hypertension; Z79.83 Long term (current) use of bisphosphonates; Z79.890 Hormone replacement therapy; Z79.899 Other long term (current) drug therapy; Z85.038 Personal history of other malignant neoplasm of large intestine; Z87.891 Personal history of nicotine dependence; Z79.891 Long term (current) use of opiate analgesic; Z88.5 Allergy status to narcotic agent; Z88.2 Allergy status to sulfonamides; Z92.21 Personal history of antineoplastic chemotherapy; Z92.3 Personal history of irradiation; I13.0 Hypertensive heart and chronic kidney disease with heart failure and stage 1 through stage 4 chronic kidney disease, or unspecified chronic kidney disease; N18.3 Chronic kidney disease, stage 3 (moderate); I69.328 Other speech and language deficits following cerebral infarction; Z98.42 Cataract extraction status, left eye; Z98.41 Cataract extraction status, right eye; Z81.1 Family history of alcohol abuse and dependence; Z84.89 Family history of other specified conditions; R26.9 Unspecified abnormalities of gait and mobility
CPT/HCPCS: 96361 ×2; 96360; 99285; 36415; 93005; 86900; 86901; 80053; 83735; 84484; 85025 ×2; 85027 ×2; 85610; 85730; 86850; 82272; G0378 ×3

== ENCOUNTER 2020-04-28 09:29 | Observation (INO) | payer MEDICARE ==
--- NOTE | 2020-04-28 09:42 | ED ---
General Adult HPI - General Chief complaint: Fall Stated complaint: Fall Time Seen by Provider: 04/28/20 09:35 Source: patient, EMS, RN notes reviewed Mode of arrival: EMS Limitations: no limitations - History of Present Illness Initial comments: Patient is a pleasant 84-year-old female presenting to the emergency department following a fall. Incident occurred today. Patient slipped on her slippers and struck her left shoulder. Patient has discomfort of her left shoulder since that time. No other area of injury or concern. No head injury or loss of consciousness. No syncope. - Related Data Home Medications Medication Instructions Recorded Confirmed Alendronate Sodium [Fosamax] 70 mg PO SCHMITT 11/30/16 10/23/19 Citalopram Hydrobromide [CeleXA] 20 mg PO DAILY 11/30/16 10/23/19 Latanoprost [Xalatan 0.005%] 1 drop BOTH EYES HS 11/30/16 10/23/19 Potassium Chloride ER [K-Dur 10] 10 meq PO DAILY 11/30/16 10/23/19 Simvastatin [Zocor] 40 mg PO HS 11/30/16 10/23/19 Calcium Carbonate/Vitamin D3 1 tab PO DAILY 05/30/17 10/23/19 [Calcium 600-Vit D3 800 Tab] Multivitamins, Thera [Multivitamin 1 tab PO DAILY@1800 05/30/17 10/23/19 (formulary)] Vitamin E (Dl,Tocopheryl Acet) 400 unit PO DAILY@1800 05/30/17 10/23/19 [Vitamin E] fentaNYL 25MCG/HR PATCH [Duragesic 1 patch TRANSDERM Q72H 11/02/17 10/23/19 25MCG/HR] rOPINIRole HCL [Requip] 2 mg PO HS 11/02/17 10/23/19 ALPRAZolam [Xanax] 0.25 mg PO HS 01/08/18 10/23/19 Ipratropium-Albuterol Nebulize 3 ml INHALATION RT-TID 08/11/18 10/23/19 [Duoneb 0.5 mg-3 mg/3 ml Soln] Aspirin [[place] Aspirin EC] 81 mg PO HS 12/25/18 10/23/19 Ferrous Sulfate [Feosol] 325 mg PO BID 12/25/18 10/23/19 HYDROcodone/APAP 10-325MG [[place] 1 tab PO Q6H PRN 12/25/18 10/23/19 10-325] Docusate [Colace] 200 mg PO HS 08/31/19 10/23/19 Previous Rx's Medication Instructions Recorded Levothyroxine Sodium [Synthroid] 112 mcg PO DAILY@0630 #30 tab 09/10/18 Metoprolol Tartrate [Lopressor] 50 mg PO TID #90 tab 09/10/18 Furosemide [Lasix] 40 mg PO BID #60 tab 06/16/19 Allergies Allergy/AdvReac Type Severity Reaction Status Date / Time codeine AdvReac does not Verified 10/23/19 18:[address] it makes her feel sulfamethoxazole AdvReac does not Verified 10/23/19 18:44 [From Bactrim] like the way it makes her feel trimethoprim [From Bactrim] AdvReac does not Verified 10/23/19 18:[address] it makes her feel Review of Systems ROS Statement: Those systems with pertinent positive or pertinent negative responses have been documented in the HPI. ROS Other: All systems not noted in ROS Statement are negative. Constitutional: Denies: fever Eyes: Denies: eye pain ENT: Denies: ear pain Respiratory: Denies: cough Cardiovascular: Denies: chest pain Endocrine: Denies: fatigue Gastrointestinal: Denies: abdominal pain Genitourinary: Denies: dysuria Musculoskeletal: Denies: back pain Skin: Denies: rash Neurological: Denies: weakness Past Medical History Past Medical History: Atrial Fibrillation, Asthma, Cancer, Heart Failure, COPD, CVA/TIA, Eye Disorder, GERD/Reflux, GI Bleed, Hyperlipidemia, Hypertension, Osteoarthritis (OA), Pneumonia, Renal Disease, Skin Disorder, Thyroid Disorder, Vascular Disorder Additional Past Medical History / Comment(s): Hx of GI bleed with acute blood loss anemia, thrombocytopenia, gastritis/duodenitis, 2002 colon cancer with s urgery/chemo and radiation, chronic hypoxic respiratory failure, home O2 at 2L/NC ATC, pulmonary HTN, pleurisy, chronic kidney disease stage III, CVA with slight speech difficulty, heart murmur, glaucoma bilaterally, hypothyroid, rosacia, UTIs, urine stress incontinence, constipation, arthritis multiple joints, chronic low back pain, past fall with L hip fracture and R patellar fracture, rib fracture, sinus problems., diverticulosis, polyps, leaky heart valves. Colonoscopy with diagnosed diverticular disease in August 2019. 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 Most recent colonoscopy August 2019. Past Anesthesia/Blood Transfusion Reactions: No Reported Reaction Past Psychological History: No Psychological Hx Reported Smoking Status: Former smoker Past Alcohol Use History: None Reported Past Drug Use History: None Reported - Past Family History Father Family Medical History: Liver Disease Additional Family Medical History / Comment(s): ETOH abuse - cirrhosis of the liver Mother Family Medical History: Neurologic Disorder Additional Family Medical History / Comment(s): Brain aneurysm General Exam Limitations: no limitations General appearance: alert, in no apparent distress Head exam: Present: atraumatic, normocephalic Eye exam: Present: normal appearance, PERRL ENT exam: Present: normal oropharynx Neck exam: Present: normal inspection. Absent: tenderness Respiratory exam: Present: normal lung sounds bilaterally Cardiovascular Exam: Present: regular rate, normal rhythm Expanded Peripheral pulses: 2+: Radial (L) GI/Abdominal exam: Present: soft. Absent: tenderness Extremities exam: Present: tenderness (Proximal humerus on the left. Distally the extremity is neurovascularly intact. Limited range of motion of the shoulder secondary to discomfort.) Back exam: Present: normal inspection Neurological exam: Present: alert. Absent: motor sensory deficit Expanded Patient oriented to: Present: person, place Sensory exam: Lower Extremity Light Touch: Normal Psychiatric exam: Present: normal affect, normal mood Skin exam: Present: normal color Course Vital Signs 04/28/20 04/28/20 09:30 09:37 Temperature 97.5 F L Pulse Rate 72 71 Respiratory 16 16 Rate Blood Pressure 206/88 188/96 O2 Sat by Pulse 100 100 Oximetry Medical Decision Making - Medical Decision Making Patient reevaluated. Patient and family updated. - Radiology Data Radiology results: image reviewed (Left humerus x-ray shows proximal humeral fracture. Also fragment lateral acromion appears chronic) Disposition Clinical Impression: Proximal humerus fracture Disposition: HOME SELF-CARE Condition: Stable Instructions (If sedation given, give patient instructions): Fall Prevention for Older Adults (ED), Proximal Humerus Fracture (ED) Additional Instructions: Please follow-up with primary care physician and orthopedics in the next couple days for recheck. Return for increased pain, swelling, worsening symptoms or other concerns Is patient prescribed a controlled substance at d/c from ED?: No Referrals: Delano Maya MD [Primary Care Provider] - 1-2 days Time of Disposition: 10:27
--- NOTE | 2020-04-28 10:15 | XR ---
. EXAMINATION TYPE: XR humerus LT DATE OF EXAM: 04/28/2020 COMPARISON: 08/11/2018 HISTORY: 84-year-old female with fall this morning, pain TECHNIQUE: 2 views FINDINGS: At least a 2 part proximal humeral fracture with a surgical neck component showing 1.8 cm of anterior displacement. The glenohumeral joint itself is not well assessed but suspected to be intact. Cortica lester appearing bone fragment measuring 2.9 x 1.2 cm located adjacent to the acromion has a chronic karol earance but is new from 08/11/2018. IMPRESSION: Lateral views nondiagnostic. AP view shows a 2 part proximal humeral fracture with a 1.8 cm displaced surgical neck component. A 2.9 x 1.2 cm bone fragment along the lateral margin of the acromion seems to be chronic but the mable ology is unclear. It is new from 08/11/2018. Clinically correlate.
[2020-04-28] MEDS ORDERED: MORPHINE SULFATE 4 MG/ML SYRINGE IM STA (10:20)
[2020-04-28] MEDS ORDERED: traMADol 50 MG STARTER PACK 3 TAB BTL PO STA (10:20)
--- NOTE | 2020-04-28 11:28 | ED ---
Medical Decision Making - Medical Decision Making Family is not comfortable with discharge. Patient reportedly uses a cane and can only use her left arm secondary to 8 arm deformities. They feel patient will need placement. Case was discussed with practitioner Jorge, covering for Dr. Blanc who will admit. Disposition Clinical Impression: Proximal humerus fracture Disposition: ADMITTED IP TO THIS [facility] Condition: Stable Instructions (If sedation given, give patient instructions): Fall Prevention for Older Adults (ED), Proximal Humerus Fracture (ED) Additional Instructions: Please follow-up with primary care physician and orthopedics in the next couple days for recheck. Return for increased pain, swelling, worsening symptoms or other concerns Referrals: Delano Maya MD [Primary Care Provider] - 1-2 days Decision Time: 11:28
[2020-04-28] MEDS ORDERED: traMADol 50 MG TAB PO PRN (11:29)
[2020-04-28] MEDS ORDERED: NALOXONE 0.4 MG/ML 1 ML VIAL IV PRN (11:29)
[2020-04-28] MEDS: SODIUM CHLORIDE 0.9% 1,000 ML IV SCH ×2 (12:22→13:41)
[2020-04-28] MEDS: MORPHINE SULFATE 4 MG/ML SYRINGE IV PRN ×3 (12:22→23:46)
[2020-04-28 12:28] LABS: Basophils % (A) 0 %; Eosinophils # (A) 0.1 k/uL (0-0.7); Eosinophils % (A) 1 %; HCT 32.2 % (34.0-46.0); HGB 10.5 gm/dL (11.4-16.0); Lymphocytes # (A) 1.1 k/uL (1.0-4.8); Lymphocytes % (A) 11 %; MCH 31.8 pg (25.0-35.0); MCHC 32.6 g/dL (31.0-37.0); MCV 97.5 fL (80.0-100.0); Mean Platelet Volume 10.4; Monocytes # (A) 0.4 k/uL (0-1.0); Monocytes % (A) 4 %; Neutrophils # (A) 8.4 k/uL (1.3-7.7); Neutrophils % (A) 83 %; RDW 13.3 % (11.5-15.5); WBC 10.1 k/uL (3.8-10.6)
[2020-04-28 12:46] LABS: Calcium 9.2 mg/dL (8.4-10.2); Potassium 4.5 mmol/L (3.5-5.1); Total Bilirubin 0.6 mg/dL (0.2-1.3)
[2020-04-28 12:54] LABS: Platelet Count 57 k/uL (150-450)
[2020-04-28] MEDS ORDERED: ALPRAZolam 0.25 MG TAB PO PRN (15:37)
[2020-04-28] MEDS ORDERED: ACETAMINOPHEN TAB 325 MG TAB PO PRN (15:42)
--- NOTE | 2020-04-28 15:48 | P.CONS ---
History of Present Illness - Reason for Consult Left humerus fracture in acute renal failure - History of Present Illness This is a pleasant 84-year-old female admitted for Mechanical fall. Patient had a fracture of the left humerus. Patient severe pain patient is tolerating morphine at this time patient also takes fentanyl in spite of her age of 84 increase the dose of fentanyl but need to closely monitor because of the opiates and her age. Patient has issues with her functionality significantly limited with a fracture of the left humerus as patient has only 1 finger in the right arm secondary to an accidental trauma 15 years ago. Patient denied any fever chills patient and nausea vomiting dysuria. Patient has creatinine of 1.23 baseline creatinine is within normal limits patient is on 40 twice a day of oral Lasix. Patient has normal ejection fraction the past does have severe mitral regurgitation patient renal failure is secondary to excessive diuretic therapy which will be held temporally patient denied any fever chills patient denied any chest pain patient and shortness of breath orthopnea proximal nocturnal dyspnea. Review of Systems REVIEW OF SYSTEMS: CONSTITUTIONAL: No fever, no malaise, no fatigue. HEENT: No recent visual problems or hearing problems. Denied any sore throat. CARDIOVASCULAR: No chest pain, orthopnea, PND, no palpitations, no syncope. PULMONARY: No shortness of breath, no cough, no hemoptysis. GASTROINTESTINAL: No diarrhea, no nausea, no vomiting, no abdominal pain. NEUROLOGICAL: No headaches, no weakness, no numbness. HEMATOLOGICAL: Denies any bleeding or petechiae. GENITOURINARY: Denies any burning micturition, frequency, or urgency. MUSCULOSKELETAL/RHEUMATOLOGICAL: As mentioned above ENDOCRINE: Denies any polyuria or polydipsia. The rest of the 14-point review of systems is negative. Past Medical History Past Medical History: Atrial Fibrillation, Asthma, Cancer, Heart Failure, COPD, CVA/TIA, Eye Disorder, GERD/Reflux, GI Bleed, Hyperlipidemia, Hypertension, O steoarthritis (OA), Pneumonia, Renal Disease, Skin Disorder, Thyroid Disorder, Vascular Disorder Additional Past Medical History / Comment(s): Lower GI bleed with acute blood loss anemia, thrombocytopenia, gastritis/duodenitis, 2002 colon cancer with surgery/chemo and radiation, chronic hypoxic respiratory failure, home O2 at 2L/NC ATC, pulmonary HTN, pleurisy, chronic kidney disease stage III, CVA with slight speech difficulty, heart murmur, glaucoma bilaterally, hypothyroid, rosacia, UTIs, urine stress incontinence, constipation, diverticular disease, arthritis multiple joints, chronic low back pain, past fall with L hip fracture and R patellar fracture, rib fracture, sinus problems, 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 Past Anesthesia/Blood Transfusion Reactions: No Reported Reaction Smoking Status: Former smoker - Past Family History Father Family Medical History: Liver Disease Additional Family Medical History / Comment(s): ETOH abuse - cirrhosis of the liver Mother Family Medical History: Vascular Disorder Additional Family Medical History / Comment(s): Brain aneurysm Medications and Allergies Home Medications Medication Instructions Recorded Confirmed Type Citalopram Hydrobromide [CeleXA] 20 mg PO DAILY 11/30/16 04/28/20 History Potassium Chloride ER [K-Dur 10] 10 meq PO DAILY 11/30/16 04/28/20 History Calcium Carbonate/Vitamin D3 1 tab PO DAILY 05/30/17 04/28/20 History [Calcium 600-Vit D3 800 Tab] fentaNYL 25MCG/HR PATCH [[place] 1 patch TRANSDERM Q72H 11/02/17 04/28/20 History 25MCG/HR] rOPINIRole HCL [Requip] 2 mg PO HS 11/02/17 04/28/20 History ALPRAZolam [Xanax] 0.25 mg PO HS PRN 01/08/18 04/28/20 History Levothyroxine Sodium [Synthroid] 112 mcg PO DAILY@0630 #30 tab 09/10/18 04/28/20 Rx Metoprolol Tartrate [Lopressor] 50 mg PO TID #90 tab 09/10/18 04/28/20 Rx Aspirin [[place] Aspirin EC] 81 mg PO HS 12/25/18 04/28/20 History Ferrous Sulfate [Feosol] 325 mg PO BID 12/25/18 04/28/20 History HYDROcodone/APAP 10-325MG [[place] 1 tab PO Q6H PRN 12/25/18 04/28/20 History 10-325] Furosemide [Lasix] 40 mg PO BID #60 tab 06/16/19 04/28/20 Rx Docusate [Colace] 200 mg PO HS 08/31/19 04/28/20 History Allergies Allergy/AdvReac Type Severity Reaction Status Date / Time codeine AdvReac does not Verified 10/23/19 18:[address] it makes her feel sulfamethoxazole AdvReac does not Verified 10/23/19 18:44 [From Bactrim] like the way it makes her feel trimethoprim [From Bactrim] AdvReac does not Verified 10/23/19 18:[address] it makes her feel Physical Exam Vitals: Vital Signs Temp Pulse Resp BP Pulse Ox 04/28/20 12:26 58 L 16 162/60 97 04/28/20 10:33 73 16 190/71 99 04/28/20 09:37 71 16 188/96 100 04/28/20 09:30 97.5 F L 72 16 206/88 100 Intake and Output 04/28/20 04/28/20 04/28/20 06:59 14:59 22:59 Other: Voiding Method Bedpan # Bowel Movements 0 Weight 81.647 kg PHYSICAL EXAMINATION: GENERAL: The patient is alert and oriented x3, not in any acute distress. Well developed, well nourished. HEENT: Pupils are round and equally reacting to light. EOMI. No scleral icterus. No conjunctival pallor. Normocephalic, atraumatic. No pharyngeal erythema. No thyromegaly. CARDIOVASCULAR: S1 and S2 present. No murmurs, rubs, or gallops. PULMONARY: Chest is clear to auscultation, no wheezing or crackles. ABDOMEN: Soft, nontender, nondistended, normoactive bowel sounds. No palpable organomegaly. MUSCULOSKELETAL: No joint swelling or deformity. EXTREMITIES: Deferred to orthopedic surgery NEUROLOGICAL: Gross neurological examination did not reveal any focal deficits. SKIN: No rashes. Results CBC & Chem 7: 04/28/20 12:16 04/28/20 12:16 Labs: Abnormal Lab Results - Last 24 Hours (Table) 04/28/20 04/28/20 Range/Units 12:16 12:16 RBC 3.30 L (3.80-5.40) m/uL Hgb 10.5 L (11.4-16.0) gm/dL Hct 32.2 L (34.0-46.0) % Plt Count 57 L (150-450) k/uL Neutrophils # 8.4 H (1.3-7.7) k/uL Carbon Dioxide 32 H (22-30) mmol/L BUN 43 H (7-17) mg/dL Creatinine 1.23 H (0.52-1.04) mg/dL Glucose 123 H (74-99) mg/dL Assessment and Plan Plan: -Acute renal failure secondary to excessive diuretic therapy which will be held and will repeat basic metabolic profile again tomorrow -Left humerus fracture I'll increase the dose of fentanyl testing her age and it to closely monitor for side effects from opiates patient is also receiving morphine although her pain is not well controlled at this time I cannot use any NSAIDs will also order Tylenol on as-needed basis for pain -Hyperlipidemia -Chronic diastolic dysfunction and mitral regurgitation patient is hypovolemic hold off on diuretic therapy as mentioned above -Chronic atrial fibrillation but patient is presently not on any anticoagulation, DVT prophylaxis as per primary service [place] the orthopedic surgery 7 COPD without any acute exacerbation -Gastric reflux disease -Hypertension -Hypothyroidism -Peripheral vascular disease. For above-mentioned chronic medical problems patient will be resumed on appropriate home medications
[2020-04-28] MEDS: METOPROLOL TARTRATE 50 MG TAB PO SCH ×2 (16:12→20:09)
[2020-04-28] MEDS: HYDROcodone/APAP 10-325MG 1 EACH TAB PO PRN ×2 (18:57→23:46)
[2020-04-28] MEDS: DOCUSATE 100 MG CAP PO SCH (20:10)
[2020-04-29] MEDS: METOPROLOL TARTRATE 50 MG TAB PO SCH ×3 (08:08→20:12)
[2020-04-29] MEDS: HYDROcodone/APAP 10-325MG 1 EACH TAB PO PRN ×2 (08:08→15:28)
[2020-04-29] MEDS: CITALOPRAM HYDROBROMIDE 20 MG TAB PO SCH (08:08)
[2020-04-29] MEDS: LEVOTHYROXINE 112 MCG TAB PO SCH (08:08)
--- NOTE | 2020-04-29 09:32 | P.PN ---
Subjective Patient is admitted for right humeral fracture patient is on multiple pain medications at this time pain is still not well controlled at this time. I'm ordering get a stat basic metabolic profile if her creatinine comes down patient probably can be started on Toradol for pain Constitutional: Denied any fatigue denied any fever. Cardio vascular: denied any chest pain, palpitations Gastrointestinal denied any nausea vomiting Pulmonary: Denied any shortness of breath cough Neurologic denied any new focal deficits All inpatient medications were reviewed and appropriate changes in these medications as dictated in the interval history and assessment and plan. Objective - Vital Signs Vital signs: Vital Signs Temp 98.1 F 04/29/20 07:00 Pulse 64 04/29/20 07:00 Resp 16 04/29/20 07:00 BP 134/77 04/29/20 07:00 Pulse Ox 96 04/29/20 07:00 Intake & Output 04/28/20 04/29/20 04/29/20 18:59 06:59 18:59 Output Total 1500 Balance -1500 Weight 81.647 kg Output: Urine 1500 Other: Voiding Method Bedpan Bedpan # Bowel Movements 0 - Exam PHYSICAL EXAMINATION: GENERAL: The patient is alert and oriented x3, not in any acute distress. Well developed, well nourished. HEENT: Pupils are round and equally reacting to light. EOMI. No scleral icterus. No conjunctival pallor. Normocephalic, atraumatic. No pharyngeal erythema. No thyromegaly. CARDIOVASCULAR: S1 and S2 present. No murmurs, rubs, or gallops. PULMONARY: Chest is clear to auscultation, no wheezing or crackles. ABDOMEN: Soft, nontender, nondistended, normoactive bowel sounds. No palpable organomegaly. MUSCULOSKELETAL: No joint swelling or deformity. EXTREMITIES: Deferred to orthopedic surgery NEUROLOGICAL: Gross neurological examination did not reveal any focal deficits. SKIN: No rashes. - Labs CBC & Chem 7: 04/28/20 12:16 04/28/20 12:16 Labs: Abnormal Lab Results - Last 24 Hours (Table) 04/28/20 04/28/20 Range/Units 12:16 12:16 RBC 3.30 L (3.80-5.40) m/uL Hgb 10.5 L (11.4-16.0) gm/dL Hct 32.2 L (34.0-46.0) % Plt Count 57 L (150-450) k/uL Neutrophils # 8.4 H (1.3-7.7) k/uL Carbon Dioxide 32 H (22-30) mmol/L BUN 43 H (7-17) mg/dL Creatinine 1.23 H (0.52-1.04) mg/dL Glucose 123 H (74-99) mg/dL Assessment and Plan Plan: -Acute renal failure secondary to excessive diuretic therapy which will be held and will repeat basic metabolic profile is pending -Left humerus fracture I'll increase the dose of fentanyl testing her age and it to closely monitor for side effects from opiates patient is also receiving morphine although her pain is not well controlled at this time I cannot use any NSAIDs will also order Tylenol on as-needed basis for pain -Hyperlipidemia -Chronic diastolic dysfunction and mitral regurgitation patient is hypovolemic hold off on diuretic therapy as mentioned above, patient will be monitored closely for heart failure exacerbation -Chronic atrial fibrillation but patient is presently not on any ant icoagulation, DVT prophylaxis as per primary service orthopedic surgery 7 COPD without any acute exacerbation -Gastric reflux disease -Hypertension -Hypothyroidism -Peripheral vascular disease. For above-mentioned chronic medical problems patient will be resumed on appropriate home medications
--- NOTE | 2020-04-29 10:10 | P.HPOR ---
<Kareem Liang - Last Filed: 04/29/20 10:06> History of Present Illness H&P Date: 04/29/20 Chief Complaint: Left shoulder pain due to left proximal humerus fracture status post fall Patient is a very pleasant 84-year-old female who is seen and examined at bedside for further evaluation regards to her left proximal humerus fracture. She states she tripped on her shoes yesterday sustaining a fall on her left shoulder. She has had significant difficulty with pain control in any range of motion of the left shoulder. This injury is quite debilitating for her. She is known to have 4 fingers amputated at the right hand from a mechanical injury 50 years ago. She uses a cane to aid in ambulation which she uses with her left upper extremity. She states she lives with family but does not feel she is safe enough to return home given her significant pain and difficulty with any sort of mobility at the left shoulder. She has difficulty flexing and extending the left elbow as that exacerbates her shoulder pain. She denies any other injuries at the time of the fall. Medicine has been managing her pain with a fentanyl patch, no code 10 mg/325 mg, and acetaminophen. Patient was seen by medicine this morning who is ordering a stat basic metabolic profile to check her creatinine level. Her pain has not been adequately controlled and they're considering getting started on Toradol for pain control. Patient is being treated for acute renal failure secondary to excessive diuretic therapy. Patient's past medical history includes hyperlipidemia, chronic diastolic dysfunction and mitral regurgitation, chronic atrial fibrillation, COPD, hypertension, hypothyroidism, and peripheral vascular disease. Past Medical History Past Medical History: Atrial Fibrillation, Asthma, Cancer, Heart Failure, COPD, CVA/TIA, Eye Disorder, GERD/Reflux, GI Bleed, Hyperlipidemia, Hypertension, Osteoarthritis (OA), Pneumonia, Renal Disease, Skin Disorder, Thyroid Disorder, Vascular Disorder Additional Past Medical History / Comment(s): Lower GI bleed with acute blood loss anemia, thrombocytopenia, gastritis/duodenitis, 2002 colon cancer with surgery/chemo and radiation, chronic hypoxic respiratory failure, home O2 at 2L/NC ATC, pulmonary HTN, pleurisy, chronic kidney disease stage III, CVA with slight speech difficulty, heart murmur, glaucoma bilaterally, hypothyroid, rosacia, UTIs, urine stress incontinence, constipation, diverticular disease, arthritis multiple joints, chronic low back pain, past fall with L hip fracture and R patellar fracture, rib fracture, sinus problems, R hand injury with 4 fin frank amputations, diverticulosis, polyps, leaky heart valves. 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 Past Anesthesia/Blood Transfusion Reactions: No Reported Reaction Smoking Status: Former smoker - Past Family History Father Family Medical History: Liver Disease Additional Family Medical History / Comment(s): ETOH abuse - cirrhosis of the liver Mother Family Medical History: Vascular Disorder Additional Family Medical History / Comment(s): Brain aneurysm Medications and Allergies Home Medications Medication Instructions Recorded Confirmed Type Citalopram Hydrobromide [CeleXA] 20 mg PO DAILY 11/30/16 04/28/20 History Potassium Chloride ER [K-Dur 10] 10 meq PO DAILY 11/30/16 04/28/20 History Calcium Carbonate/Vitamin D3 1 tab PO DAILY 05/30/17 04/28/20 History [Calcium 600-Vit D3 800 Tab] rOPINIRole HCL [Requip] 2 mg PO HS 11/02/17 04/28/20 History Levothyroxine Sodium [Synthroid] 112 mcg PO DAILY@0630 #30 tab 09/10/18 04/28/20 Rx Metoprolol Tartrate [Lopressor] 50 mg PO TID #90 tab 09/10/18 04/28/20 Rx Aspirin [[place] Aspirin EC] 81 mg PO HS 12/25/18 04/28/20 History Ferrous Sulfate [Feosol] 325 mg PO BID 12/25/18 04/28/20 History Furosemide [Lasix] 40 mg PO BID #60 tab 06/16/19 04/28/20 Rx Docusate [Colace] 200 mg PO HS 08/31/19 04/28/20 History ALPRAZolam [Xanax] 0.25 mg PO HS PRN #3 tab 05/01/20 Rx HYDROcodone/APAP 10-325MG [[place] 1 tab PO Q6H PRN #12 tab 06/21/20 Rx 10-325] fentaNYL 50MCG/HR PATCH [Duragesic 1 patch TRANSDERM Q72H #1 patch 05/01/20 Rx 50MCG/HR] traMADol HCl [Ultram] 50 mg PO Q6H PRN #12 tab 05/01/20 Rx Allergies Allergy/AdvReac Type Severity Reaction Status Date / Time codeine AdvReac does not Verified 10/23/19 18:[address] it makes her feel sulfamethoxazole AdvReac does not Verified 10/23/19 18:44 [From Bactrim] like the way it makes her feel trimethoprim [From Bactrim] AdvReac does not Verified 10/23/19 18:[address] it makes her feel Physical Examination Physical Exam: Patient is awake, alert, and oriented 3 Vital signs stable Adequate chest excursion with deep inspiration and expiration Examination of the left shoulder shows swelling and bruising around the entire left shoulder most significant at the anterior lateral shoulder Significant pain with any sort of mobilization of the left shoulder Significant pain with any palpation over the entire left shoulder Increase pain in the left shoulder with flexion and extension at the left elbow Patient is able to wiggle all fingers of the left hand and move the wrist without significant difficulty Neurovascular intact left upper extremity Results Pertinent studies: X-rays of the left humerus taken on 04/28/2020: Evidence of at least a 2 part proximal left humeral fracture with surgical neck component - Labs Labs: Abnormal Lab Results - Last 24 Hours (Table) 04/28/20 04/28/20 Range/Units 12:16 12:16 RBC 3.30 L (3.80-5.40) m/uL Hgb 10.5 L (11.4-16.0) gm/dL Hct 32.2 L (34.0-46.0) % Plt Count 57 L (150-450) k/uL Neutrophils # 8.4 H (1.3-7.7) k/uL Carbon Dioxide 32 H (22-30) mmol/L BUN 43 H (7-17) mg/dL Creatinine 1.23 H (0.52-1.04) mg/dL Glucose 123 H (74-99) mg/dL H & H 04/28/20 Range/Units 12:16 Hgb 10.5 L (11.4-16.0) gm/dL Hct 32.2 L (34.0-46.0) % Result Diagrams: 04/28/20 12:16 04/28/20 12:16 Assessment and Plan Assessment: Assessment: Left proximal humerus fracture status post fall Left shoulder pain not adequately controlled Inability to use left upper extremity well due to left proximal humerus fracture Acute renal failure History of right hand mechanical injury resulting in forefinger amputation Hyperlipidemia COPD Hypertension Hypothyroidism Chronic atrial fibrillation Peripheral vascular disease Chronic diastolic dysfunction and mitral regurgitation (1) Closed fracture of left proximal humerus Status: Acute Code(s): S42.202A - UNSP FRACTURE OF UPPER END OF LEFT HUMERUS, INIT FOR CLOS FX SNOMED Code(s): 34537972 (2) Status post fall Status: Acute Code(s): Z91.81 - HISTORY OF FALLING SNOMED Code(s): 386921243 (3) Left shoulder pain Status: Acute Code(s): M25.512 - PAIN IN LEFT SHOULDER SNOMED Code(s): 40768919 (4) Acute renal failure Status: Acute Code(s): N17.9 - ACUTE KIDNEY FAILURE, UNSPECIFIED SNOMED Code(s): 14303609 (5) COPD (chronic obstructive pulmonary disease) Status: Acute Code(s): J44.9 - CHRONIC OBSTRUCTIVE PULMONARY DISEASE, UNSPECIFIED SNOMED Code(s): 85172047 (6) Peripheral vascular disease Status: Acute Code(s): I73.9 - PERIPHERAL VASCULAR DISEASE, UNSPECIFIED SNOMED Code(s): 318147735 (7) History of amputation of finger of right hand Status: Acute Code(s): Z89.021 - ACQUIRED ABSENCE OF RIGHT FINGER(S) SNOMED Code(s): 45213826034984495 (8) Atrial fibrillation Status: Acute Code(s): I48.91 - UNSPECIFIED ATRIAL FIBRILLATION SNOMED Code(s): 29208893 (9) Hyperlipidemia Status: Acute Code(s): E78.5 - HYPERLIPIDEMIA, UNSPECIFIED SNOMED Code(s): 27021415 (10) Hypertension Status: Acute Code(s): I10 - ESSENTIAL (PRIMARY) HYPERTENSION SNOMED Code(s): 92162602 (11) Hypothyroidism Status: Acute Code(s): E03.9 - HYPOTHYROIDISM, UNSPECIFIED SNOMED Code(s): 04725453 Plan: Plan: 1. Patient has been discussed in detail with Dr. Jeff Friedman. Patient had been admitted to orthopedic services for her left proximal humerus fracture status post fall. At this time, we are planning to proceed forward with conservative treatment. We are planning for a nonoperative approach to the left proximal humerus fracture. A prescription for a sling for the left upper extremity has been ordered. It has not yet been delivered to the bedside. Once this sling is delivered it may be worn for comfort support as needed. Patient may remove the left elbow to work on gentle range of motion with flexion and extension of the left elbow. Patient may also begin gentle pendulums of the left shoulder. Strict nonweightbearing for the left upper extremity. Patient may use left hand for light activities. Patient is having significant difficulty with pain control. 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 Her having significant difficulty with mobilization, pain control, and does rely on her left upper extremity following a previous injury that resulted in amputation of 4 fingers of the right hand. She does not feel safe at home. Patient feels she would like to be discharged to rehabilitation facility. We did discuss she would be to remain in the hospital at least 3 nights any approval by insurance. We discussed if she was to stay in the hospital we will discuss transferring admit status to medicine. From an orthopedic standpoint, patient will be cleared for discharge home with sling and pain medications. Pain medications have been controlled by medicine and we would continue with pain control with medications at their discretion. Following discharge, patient will plan to follow-up with Dr. Jeff Friedman at [facility] in approximately 1 week for further evaluation 2. Patient will continue to be seen again by medicine for her other medical diagnoses as well as continued treatment for pain control and regards to her acute traumatic left proximal humerus fracture Time with Patient: Greater than 30 (Including obtaining history, physical examination, reviewing of imaging, and dictation.) <Jeff Friedman - Last Filed: 05/07/20 13:33> Results - Labs Labs: H & H 04/28/20 Range/Units 12:16 Hgb 10.5 L (11.4-16.0) gm/dL Hct 32.2 L (34.0-46.0) % Result Diagrams: 04/28/20 12:16 04/30/20 07:49 Assessment and Plan Plan: Reviewed and agree with above (amendments/corrections noted below). The patient was subsequently seen and examined by me as well. S: She states the pain is substantial but gradually improving. She requires a cane for ambulation assistance which she uses only in her left hand (for obvious reasons). O: Appropriate tenderness to palpation and PROM of the proximal humerus. A: Displaced left proximal humerus fracture. History of traumatic digital amputations on the right hand P: We discussed the proximal humerus fracture in detail and the recommended nonsurgical treatment. I suggested that she may be able to use a cane in her right hand for ambulation assistance but this would require a specialized/custom aid (e.g. a forearm crutch with a modified ortho assistant). I recommended she be evaluated by a manager summer and we will provide a prescription for such a cane/crutch. Follow-up outpatient as outlined above. Thank you for allowing us to participate in the care of this patient. Jeff Friedman D.O. [facility]
[2020-04-29 12:32] LABS: Calcium 8.6 mg/dL (8.4-10.2); Potassium 4.4 mmol/L (3.5-5.1)
[2020-04-29] MEDS: DOCUSATE 100 MG CAP PO SCH (20:13)
[2020-04-30] MEDS: LEVOTHYROXINE 112 MCG TAB PO SCH (05:23)
[2020-04-30] MEDS: HYDROcodone/APAP 10-325MG 1 EACH TAB PO PRN ×4 (06:28→22:00)
[2020-04-30] MEDS: CITALOPRAM HYDROBROMIDE 20 MG TAB PO SCH (08:13)
[2020-04-30] MEDS: METOPROLOL TARTRATE 50 MG TAB PO SCH ×2 (08:13→21:59)
[2020-04-30 09:01] LABS: Calcium 8.4 mg/dL (8.4-10.2); Potassium 4.8 mmol/L (3.5-5.1)
--- NOTE | 2020-04-30 10:45 | P.DS ---
Providers Date of admission: 04/28/20 11:29 Expected date of discharge: 04/30/20 Attending physician: Jeff Friedman, Consults: 04/28/20 11:29 Consult Physician Urgent Consulting Provider: Andreea Acosta Consult Reason/Comments: medical care Do you want consulting provider notified?: Yes Primary care physician: [facility] Course: This patient is an 84-year-old female past medical history of hyperlipidemia, atrial fibrillation, COPD, heart disease, hypertension, hypothyroidism, peripheral vascular disease that presented to [facility] emergency department on 04/28/20 after complaints a mechanical fall after tripping over her shoes. The patient was complaining of isolated shoulder pain, x-rays in the emergency department revealed a left proximal humerus fracture. The patient was admitted under the care of Dr. Friedman, non-operative treatment is recommended. 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 Therefore, the patient required admission for placement. A consult placed to internal medicine for medical management. The patient is examined bedside this morning. She states she is feeling well and her pain is well-controlled. She is evaluated yesterday by Qing for a possible custom orthosis to the be applied to her cane so she may ambulate with the right upper extremity, and recommendations were communicated to patient's son. Patient denies chest pain, shortness of breath, nausea, vomiting. She is tolerating her diet well. She has no new complaints. Vital signs stable. On examination, the patient is lying in bed in no apparent distress. She is alert and oriented 3. On inspection of the left shoulder, there is diffuse swelling and ecchymosis. There are no open wounds or lacerations. There is moderate pain on palpation of the left shoulder. No pain on palpation of the left elbow, forearm, wrist, hand. There is a ring present on the left ring finger. There is significant swelling of the fingers and hand. No pain with passive range of motion of the left elbow, wrist. the left lower extremity is warm and well-perfused with brisk capillary refill distally. Radial pulse +2. Motor and sensory function intact of the left upper extremity. The patient's ring was removed with lubricating jelly. The patient tolerated this with minimal pain. The patient's ring was placed in a denture cup, next to her sweater and additional belongings in her room. I communicated this with the patient and the patient verbalized understanding and agreement with placing her ring with her additional belongings. I also explained to the nurse the patient's ring was removed and placed in a denture cup, she also verbalized understanding. The patient will discharge to rehab today, pending medical clearance. Please see med rec for accurate list of discharge medications. Pain medications per internal medicine. Patient will follow-up in the office in [address] Friedman. Patient Condition at Discharge: Stable Plan - Discharge Summary Discharge Rx Participant: No New Discharge Prescriptions: No Action Potassium Chloride ER [K-Dur 10] 10 meq PO DAILY Citalopram Hydrobromide [CeleXA] 20 mg PO DAILY Calcium Carbonate/Vitamin D3 [Calcium 600-Vit D3 800 Tab] 1 tab PO DAILY rOPINIRole HCL [Requip] 2 mg PO HS fentaNYL 25MCG/HR PATCH [Duragesic 25MCG/HR] 1 patch TRANSDERM Q72H ALPRAZolam [Xanax] 0.25 mg PO HS PRN PRN Reason: Anxiety Levothyroxine Sodium [Synthroid] 112 mcg PO DAILY@0630 #30 tab Metoprolol Tartrate [Lopressor] 50 mg PO TID #90 tab Aspirin [[place] Aspirin EC] 81 mg PO HS Ferrous Sulfate [Feosol] 325 mg PO BID HYDROcodone/APAP 10-325MG [[place] 10-325] 1 tab PO Q6H PRN PRN Reason: Pain Furosemide [Lasix] 40 mg PO BID #60 tab Docusate [Colace] 200 mg PO HS Discharge Medication List Citalopram Hydrobromide [CeleXA] 20 mg PO DAILY 11/30/16 [History] Potassium Chloride ER [K-Dur 10] 10 meq PO DAILY 11/30/16 [History] Calcium Carbonate/Vitamin D3 [Calcium 600-Vit D3 800 Tab] 1 tab PO DAILY 05/30/17 [History] fentaNYL 25MCG/HR PATCH [Duragesic 25MCG/HR] 1 patch TRANSDERM Q72H 11/02/17 [History] rOPINIRole HCL [Requip] 2 mg PO HS 11/02/17 [History] ALPRAZolam [Xanax] 0.25 mg PO HS PRN 01/08/18 [History] Levothyroxine Sodium [Synthroid] 112 mcg PO DAILY@0630 #30 tab 09/10/18 [Rx] Metoprolol Tartrate [Lopressor] 50 mg PO TID #90 tab 09/10/18 [Rx] Aspirin [[place] Aspirin EC] 81 mg PO HS 12/25/18 [History] Ferrous Sulfate [Feosol] 325 mg PO BID 12/25/18 [History] HYDROcodone/APAP 10-325MG [[place] 10-325] 1 tab PO Q6H PRN 12/25/18 [History] Furosemide [Lasix] 40 mg PO BID #60 tab 06/16/19 [Rx] Docusate [Colace] 200 mg PO HS 08/31/19 [History] Follow up Appointment(s)/Referral(s): Delano Maya MD [Primary Care Provider] - 1-2 days Jeff Friedman DO [Medical Doctor] - 1 Week (Patient may follow-up with Dr. Jeff Friedman at [facility] in 1 week following discharge. ) [employer] [NON-STAFF] - As Needed (cane attachment) Patient Instructions/Handouts: Fall Prevention for Older Adults (ED), Proximal Humerus Fracture (ED) Activity/Diet/Wound Care/Special Instructions: Please follow-up with primary care physician and orthopedics in the next couple days for recheck. Return for increased pain, swelling, worsening symptoms or other concerns 1. Patient may remove the sling at the left upper extremity to work on gentle range of motion with flexion and extension of the left elbow. 2. Patient may also begin gentle pendulums of the left shoulder. 3. Strict nonweightbearing for the left upper extremity. 4. Patient may use left hand for light activities. 5. Left upper extremity sling to use for comfort while at rest. Discharge Disposition: TRANSFER TO SNF/ECF
[2020-04-30] MEDS: SODIUM CHLORIDE 0.9% 1,000 ML IV SCH (12:14)
[2020-04-30] MEDS: DOCUSATE 100 MG CAP PO SCH (21:59)
--- NOTE | 2020-05-01 01:20 | P.PN ---
Subjective Progress Note Date: 04/30/20 Principal diagnosis: right humeral fracture Ms. Campoverde is an 84-year-old female admitted to the hospital secondary to fracture of left humerus after having a mechanical fall. Patient has history of atrial fibrillation, asthma, heart failure, COPD, GERD, hyperlipidemia, hypertension, osteoarthritis, colon cancer status post surgery chemo and radiation therapy. She is being managed conservatively for the left humerus fracture by orthopedics. On -patient was evaluated at bedside. No acute events reported by nursing staff overnight. Patient complains of pain in her left upper extremity she states that pain medications are helping her to some extent. She denies having any other complaints. On review of systems no fever chills or riders. No chest pain or palpitations. No cough or difficulty in breathing. No bowel pain nausea vomiting or diarrhea. No dysuria or hematuria. Patient's vitals have been reviewed. And on reviewing her labs creatinine has trended down from 1.23-0.8. Active Medications Acetaminophen (Tylenol Tab) 650 mg PO Q4HR PRN PRN Reason: Fever and/ or MILD Pain Hydrocodone Bitart/Acetaminophen ([place] 10) 1 each PO Q6H PRN PRN Reason: MODERATE Pain Last Admin: 04/30/20 22:00 Dose: 1 each Documented by: Alprazolam (Xanax) 0.25 mg PO HS PRN PRN Reason: Anxiety Last Admin: 04/30/20 00:38 Dose: 0.25 mg Documented by: Citalopram Hydrobromide (Celexa) 20 mg PO DAILY [facility] Last Admin: 04/30/20 08:13 Dose: 20 mg Documented by: Docusate Sodium (Colace) 200 mg PO HS [facility] Last Admin: 04/30/20 21:59 Dose: 200 mg Documented by: Fentanyl (Duragesic 50mcg/Hr Patch) 1 patch TRANSDERM Q72H [facility] Last Admin: 04/28/20 16:12 Dose: 1 patch Documented by: Sodium Chloride (Saline 0.9%) 1,000 mls @ 20 mls/hr IV .Q24H [facility] Last Admin: 04/30/20 12:14 Dose: Not Given Documented by: Levothyroxine Sodium (Synthroid) 112 mcg PO DAILY@0630 [facility] Last Admin: 04/30/20 05:23 Dose: 112 mcg Documented by: Metoprolol Tartrate (Lopressor) 50 mg PO BID [facility] Last Admin: 04/30/20 21:59 Dose: 50 mg Documented by: Morphine Sulfate (Morphine Sulfate (Inj)) 4 mg IV Q4HR PRN PRN Reason: Severe Pain Last Admin: 04/28/20 23:46 Dose: 4 mg Documented by: Naloxone HCl (Narcan) 0.2 mg IV Q2M PRN PRN Reason: Opioid Reversal Ropinirole HCl (Requip) 2 mg PO HS [facility] Last Admin: 04/30/20 21:59 Dose: 2 mg Documented by: Tramadol HCl (Ultram) 50 mg PO Q6H PRN PRN Reason: Moderate Pain Last Admin: 04/28/20 15:13 Dose: 50 mg Documented by: Objective - Vital Signs Vital signs: Vital Signs Temp 98.5 F 04/30/20 15:00 Pulse 73 04/30/20 15:00 Resp 18 04/30/20 15:00 BP 160/64 04/30/20 15:00 Pulse Ox 99 04/30/20 15:00 Intake & Output 04/30/20 04/30/20 05/01/20 06:59 18:59 06:59 Intake Total 320 Output Total 650 500 Balance -650 -180 Intake: Oral 320 Output: Urine 650 500 Other: # Bowel Movements 1 - Exam PHYSICAL EXAMINATION: GENERAL: The patient is alert and oriented x3, not in any acute distress. Well developed, well nourished. HEENT: No scleral icterus. No conjunctival pallor. Normocephalic, atraumatic. CARDIOVASCULAR: S1 and S2 present. No murmurs, rubs, or gallops. PULMONARY: Chest is clear to auscultation, no wheezing or crackles. ABDOMEN: Soft, nontender, nondistended, normoactive bowel sounds. MUSCULOSKELETAL: deformities of her right hand EXTREMITIES: Left UE is in a sling NEUROLOGICAL: Gross neurological examination did not reveal any focal deficits. SKIN: No rashes. - Labs CBC & Chem 7: 04/28/20 12:16 04/30/20 07:49 Labs: Abnormal Lab Results - Last 24 Hours (Table) 04/30/20 Range/Units 07:49 Sodium 135 L (137-145) mmol/L BUN 31 H (7-17) mg/dL Glucose 114 H (74-99) mg/dL Assessment and Plan Assessment: ASSESSMENT Acute kidney injury secondary to excessive diuretic therapy-resolved Left humerus fracture -conservative management as per Ortho Hyperlipidemia Chronic diastolic dysfunction Mitral regurgitation Chronic atrial fibrillation COPD without exacerbation GERD Hypertension Hypothyroidism PLAN: Her pain seems to be under good control with the current pain medication regimen which can be continued. Patient's creatinine is back to her baseline. Continue with the rest of her current medication regimen. As the patient's creatinine is back to baseline, she can be discharged.
[2020-05-01 01:40] VITALS: RESP 18
[2020-05-01] MEDS: LEVOTHYROXINE 112 MCG TAB PO SCH (05:09)
[2020-05-01] MEDS: HYDROcodone/APAP 10-325MG 1 EACH TAB PO PRN ×2 (05:09→13:44)
[2020-05-01 08:48] VITALS: BP 146/68; PULSE 67; TEMP 98
[2020-05-01] MEDS: CITALOPRAM HYDROBROMIDE 20 MG TAB PO SCH (08:57)
[2020-05-01] MEDS: METOPROLOL TARTRATE 50 MG TAB PO SCH (08:57)
[2020-05-01] MEDS: SODIUM CHLORIDE 0.9% 1,000 ML IV SCH (10:33)
--- NOTE | 2020-05-01 10:39 | P.PN ---
Progress Note - Text Progress Note Date: 05/01/20 Patient was unable to be discharged yesterday 04/30/2020 as case management was no longer in the hospital yesterday when patient was cleared medically. We will plan for discharge today 05/01/2020 pending medical clearance. The patient was examined bedside this morning. The patient states she is doing well and the pain in her left upper extremity has improved compared to yesterday. She is overall feeling well and has no new complaints. She denies chest pain, shortness breath, nausea, vomiting, fevers, chills. She denies numbness or tingling of the left upper extremity. She denies neck pain. On examination, the patient is sitting up in bed in no apparent distress. She is alert and orientated 3. On this patient of the left upper extremity, there is diffuse swelling and ecchymosis the shoulder and arm. There is ecchymosis of the posterior shoulder. Skin is intact with no lacerations or abrasions. There is no pain on palpation of the C-spine. There is no pain with flexion, extension of the neck. There is moderate pain in palpation of the shoulder. No pain on palpation of the elbow, forearm, wrist. Motor and sensory function appear to be intact of the left upper extremity. Radial pulse +2. Left upper extremity is warm and well-perfused with brisk capillary refill distally. We will plan for discharge today to rehab today pending medical clearance. Patient will follow-up with Dr. Friedman in 1 week in the office.
--- NOTE | 2020-05-01 23:51 | P.PN ---
Subjective Progress Note Date: 05/01/20 Principal diagnosis: right humeral fracture Ms. Campoverde is an 84-year-old female admitted to the hospital secondary to fracture of left humerus after having a mechanical fall. Patient has history of atrial fibrillation, asthma, heart failure, COPD, GERD, hyperlipidemia, hypertension, osteoarthritis, colon cancer status post surgery chemo and radiation therapy. She is being managed conservatively for the left humerus fracture by orthopedics. On -patient was evaluated at bedside. No acute events reported by nursing staff overnight. Patient complains of pain in her left upper extremity she states that pain medications are helping her to some extent. She denies having any other complaints. On review of systems no fever chills or riders. No chest pain or palpitations. No cough or difficulty in breathing. No bowel pain nausea vomiting or diarrhea. No dysuria or hematuria. Patient's vitals have been reviewed. And on reviewing her labs creatinine has trended down from 1.23-0.8. On 05/01/2020 patient was comfortably lying in bed appears to be no acute distress. She states that her left upper extremity pain is under better control with the current medication regimen. Overnight no acute issues reported by nursing staff. She would be transferred to rehab facility today. Patient's vitals within normal limits and she is saturating at 96% on 2 L of nasal cannula which is at baseline. Blood pressure within normal limits, labs show normalization of her creatinine. Active Medications Acetaminophen (Tylenol Tab) 650 mg PO Q4HR PRN PRN Reason: Fever and/ or MILD Pain Hydrocodone Bitart/Acetaminophen ([place] 10) 1 each PO Q6H PRN PRN Reason: MODERATE Pain Last Admin: 04/30/20 22:00 Dose: 1 each Documented by: Alprazolam (Xanax) 0.25 mg PO HS PRN PRN Reason: Anxiety Last Admin: 04/30/20 00:38 Dose: 0.25 mg Documented by: Citalopram Hydrobromide (Celexa) 20 mg PO DAILY [facility] Last Admin: 04/30/20 08:13 Dose: 20 mg Documented by: Docusate Sodium (Colace) 200 mg PO HS [facility] Last Admin: 04/30/20 21:59 Dose: 200 mg Documented by: Fentanyl (Duragesic 50mcg/Hr Patch) 1 patch TRANSDERM Q72H [facility] Last Admin: 04/28/20 16:12 Dose: 1 patch Documented by: Sodium Chloride (Saline 0.9%) 1,000 mls @ 20 mls/hr IV .Q24H [facility] Last Admin: 04/30/20 12:14 Dose: Not Given Documented by: Levothyroxine Sodium (Synthroid) 112 mcg PO DAILY@0630 [facility] Last Admin: 04/30/20 05:23 Dose: 112 mcg Documented by: Metoprolol Tartrate (Lopressor) 50 mg PO BID [facility] Last Admin: 04/30/20 21:59 Dose: 50 mg Documented by: Morphine Sulfate (Morphine Sulfate (Inj)) 4 mg IV Q4HR PRN PRN Reason: Severe Pain Last Admin: 04/28/20 23:46 Dose: 4 mg Documented by: Naloxone HCl (Narcan) 0.2 mg IV Q2M PRN PRN Reason: Opioid Reversal Ropinirole HCl (Requip) 2 mg PO [facility] Last Admin: 04/30/20 21:59 Dose: 2 mg Documented by: Tramadol HCl (Ultram) 50 mg PO Q6H PRN PRN Reason: Moderate Pain Last Admin: 04/28/20 15:13 Dose: 50 mg Documented by: Objective - Vital Signs Vital signs: Vital Signs Temp 98.0 F 05/01/20 07:00 Pulse 67 05/01/20 07:00 Resp 18 05/01/20 07:00 BP 146/68 05/01/20 07:00 Pulse Ox 96 05/01/20 07:00 Intake & Output 04/30/20 05/01/20 05/01/20 18:59 06:59 18:59 Intake Total 320 Output Total 500 100 Balance -180 -100 Weight 95 kg Intake: Oral 320 Output: Urine 500 100 Other: Voiding Method Diaper Incontinent # Voids 2 # Bowel Movements 1 - Exam PHYSICAL EXAMINATION: GENERAL: The patient is alert and oriented x3, not in any acute distress. HEENT: No scleral icterus. No conjunctival pallor. Normocephalic, atraumatic. CARDIOVASCULAR: S1 and S2 present. No murmurs, rubs, or gallops. PULMONARY: Chest is clear to auscultation, no wheezing or crackles. ABDOMEN: Soft, nontender, nondistended, normoactive bowel sounds. MUSCULOSKELETAL: deformities of her right hand EXTREMITIES: Left UE is in a sling NEUROLOGICAL: Gross neurological examination did not reveal any focal deficits. - Labs CBC & Chem 7: 04/28/20 12:16 04/30/20 07:49 Assessment and Plan Assessment: ASSESSMENT Acute kidney injury secondary to excessive diuretic therapy-resolved Left humerus fracture -conservative management as per Ortho Hyperlipidemia Chronic diastolic dysfunction Mitral regurgitation Chronic atrial fibrillation COPD without exacerbation GERD Hypertension Hypothyroidism PLAN: Her pain seems to be under good control with the current pain medication regimen which can be continued.Medication reconciliation was done and scripts for fentanyl, tramadol , [place] and Xanax given for 3 days. Patient's creatinine is back to her baseline. As the patient's creatinine is back to baseline, she can be discharged.
== END 2020-05-01 13:58 ==
LOC: EC 09:29 → 4SSUR 11:29 → INTOOBSV 11:29 → 4SSUR 13:17 → UNDODISIN 05-01 13:58
PROVIDERS: ADMIT Orthopaedic Surgery; ATTEND Orthopaedic Surgery
DX: S42.222A 2-part displaced fracture of surgical neck of left humerus, initial encounter for closed fracture (principal); I13.0 Hypertensive heart and chronic kidney disease with heart failure and stage 1 through stage 4 chronic kidney disease, or unspecified chronic kidney disease; N17.9 Acute kidney failure, unspecified; I50.32 Chronic diastolic (congestive) heart failure; I48.20 Chronic atrial fibrillation, unspecified; J96.11 Chronic respiratory failure with hypoxia; W01.0XXA Fall on same level from slipping, tripping and stumbling without subsequent striking against object, initial encounter; J44.9 Chronic obstructive pulmonary disease, unspecified; E03.9 Hypothyroidism, unspecified; E78.5 Hyperlipidemia, unspecified; F41.9 Anxiety disorder, unspecified; I73.9 Peripheral vascular disease, unspecified; K21.9 Gastro-esophageal reflux disease without esophagitis; M19.90 Unspecified osteoarthritis, unspecified site; N18.3 Chronic kidney disease, stage 3 (moderate); I27.20 Pulmonary hypertension, unspecified; T50.2X5A Adverse effect of carbonic-anhydrase inhibitors, benzothiadiazides and other diuretics, initial encounter; E86.1 Hypovolemia; I34.0 Nonrheumatic mitral (valve) insufficiency; Z98.890 Other specified postprocedural states; Z87.891 Personal history of nicotine dependence; Z99.81 Dependence on supplemental oxygen; Z79.890 Hormone replacement therapy; Z79.82 Long term (current) use of aspirin; Z79.899 Other long term (current) drug therapy; Z85.038 Personal history of other malignant neoplasm of large intestine; Z86.73 Personal history of transient ischemic attack (TIA), and cerebral infarction without residual deficits; Z89.029 Acquired absence of unspecified finger(s); Z03.818 Encounter for observation for suspected exposure to other biological agents ruled out; Z91.81 History of falling; Z79.83 Long term (current) use of bisphosphonates; Z98.42 Cataract extraction status, left eye; Z98.41 Cataract extraction status, right eye; Z87.01 Personal history of pneumonia (recurrent); Z89.021 Acquired absence of right finger(s); Z88.5 Allergy status to narcotic agent; Z88.2 Allergy status to sulfonamides; Z87.440 Personal history of urinary (tract) infections; Z83.79 Family history of other diseases of the digestive system
CPT/HCPCS: 96376; 96372; 96374; 99285; 94760; 97162; 97166; 80053; 80048 ×2; 85025; 73060; G0378 ×4; U0003; J2270

== ENCOUNTER 2020-12-16 08:44 | Inpatient (IN) | payer MEDICARE ==
[2020-12-16] MEDS ORDERED: FUROSEMIDE 10 MG/ML 4 ML VIAL IV STA (08:49)
[2020-12-16] MEDS ORDERED: NITROGLYCERIN SL TABS 0.4 MG TAB SUBLINGUAL STA (08:50)
[2020-12-16] MEDS ORDERED: NITROGLYCERIN OINT 1 INCH/GM PACKET TOPICAL STA (08:50)
[2020-12-16] MEDS ORDERED: FUROSEMIDE 10 MG/ML 10 ML VIAL IV STA (08:54)
[2020-12-16 09:14] LABS: ABG Base Excess 3.5 mmol/L; ABG HCO3 30 mmol/L (21-25); ABG PCO2 62 mmHg (35-45); ABG PO2 320 mmHg (83-108); ABG TCO2 32 mmol/L (19-24); Allen Test Performed? Yes
--- NOTE | 2020-12-16 09:17 | ED ---
General Adult HPI - General Chief complaint: Shortness of Breath Stated complaint: BRADLEY Time Seen by Provider: 12/16/20 08:44 Source: patient, EMS, RN notes reviewed, old records reviewed Mode of arrival: EMS Limitations: no limitations - History of Present Illness Initial comments: This is an 85-year-old female who presents to the emergency department from a assisted because of difficulty breathing. At the assisted the patient was in the 50s and altered. When EMS arrived they put her on CPAP and the patient had an elevated blood pressure so they gave her some nitroglycerin and after a little bit she became much more alert and oriented to her pulse ox went up significantly. Patient denies any pain. Patient denies any recent fever. Patient was tested for covert couple days ago was negative. There was no further history at this time. - Related Data Home Medications Medication Instructions Recorded Confirmed Citalopram Hydrobromide [CeleXA] 20 mg PO DAILY 11/30/16 12/16/20 Potassium Chloride ER [K-Dur 10] 10 meq PO DAILY 11/30/16 12/16/20 Calcium Carbonate/Vitamin D3 1 tab PO DAILY 05/30/17 12/16/20 [Calcium 600-Vit D3 800 Tab] rOPINIRole HCL [Requip] 2 mg PO HS 11/02/17 12/16/20 Aspirin [[place] Aspirin EC] 81 mg PO DAILY 12/25/18 12/16/20 Ferrous Sulfate [Feosol] 325 mg PO BID 12/25/18 12/16/20 Docusate [Colace] 200 mg PO HS 08/31/19 12/16/20 Ascorbic Acid [Vitamin C] 500 mg PO DAILY 12/16/20 12/16/20 Cholecalciferol [Vitamin D3 (25 25 mcg PO DAILY 12/16/20 12/16/20 Mcg = 1000 Iu)] Latanoprost Ophth [Xalatan 0.005%] 1 drop BOTH EYES HS 12/16/20 12/16/20 Metoprolol Tartrate [Lopressor] 50 mg PO TID@0500,1300,2100 12/16/20 12/16/20 Previous Rx's Medication Instructions Recorded Levothyroxine Sodium [Synthroid] 112 mcg PO DAILY@0630 #30 tab 09/10/18 Furosemide [Lasix] 40 mg PO BID #60 tab 06/16/19 HYDROcodone/APAP 10-325MG [[place] 1 tab PO Q6H PRN #12 tab 05/01/20 10-325] fentaNYL 50MCG/HR PATCH [Duragesic 1 patch TRANSDERM Q72H #1 patch 05/01/20 50MCG/HR] traMADol HCl [Ultram] 50 mg PO Q6H PRN #12 tab 05/01/20 Allergies Allergy/AdvReac Type Severity Reaction Status Date / Time codeine AdvReac does not Verified 12/16/20 09:[address] it makes her feel sulfamethoxazole AdvReac does not Verified 12/16/20 09:07 [From Bactrim] like the way it makes her feel trimethoprim [From Bactrim] AdvReac does not Verified 12/16/20 09:[address] it makes her feel Review of Systems ROS Statement: Those systems with pertinent positive or pertinent negative responses have been documented in the HPI. ROS Other: All systems not noted in ROS Statement are negative. Past Medical History Past Medical History: Atrial Fibrillation, Asthma, Cancer, Heart Failure, COPD, CVA/TIA, Eye Disorder, GERD/Reflux, GI Bleed, Hyperlipidemia, Hypertension, Osteoarthritis (OA), Pneumonia, Renal Disease, Skin Disorder, Thyroid Disorder, Vascular Disorder Additional Past Medical History / Comment(s): Lower GI bleed with acute blood loss anemia, thrombocytopenia, gastritis/duodenitis, 2002 colon cancer with surgery/chemo and radiation, chronic hypoxic respiratory failure, home O2 at 2L/NC ATC, pulmonary HTN, pleurisy, chronic kidney disease stage III, CVA with slight speech difficulty, heart murmur, glaucoma bilaterally, hypothyroid, rosacia, UTIs, urine stress incontinence, constipation, diverticular disease, arthritis multiple joints, chronic low back pain, past fall with L hip fracture and R patellar fracture, rib fracture, sinus problems, 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 Past Anesthesia/Blood Transfusion Reactions: No Reported Reaction Past Psychological History: No Psychological Hx Reported Smoking Status: Unknown if ever smoked Past Alcohol Use History: None Reported Past Drug Use History: None Reported - Past Family History Father Family Medical History: Liver Disease Additional Family Medical History / Comment(s): ETOH abuse - cirrhosis of the liver Mother Family Medical History: Vascular Disorder Additional Family Medical History / Comment(s): Brain aneurysm General Exam - General Exam Comments Initial Comments: GENERAL: Patient is well-developed and well-nourished. Patient is nontoxic and well- hydrated and is inModeratee distress. ENT: Neck is soft and supple. No significant lymphadenopathy is noted. Oropharynx is clear. Moist mucous membranes. Neck has full range of motion without eliciting any pain. There is no thyroid enlargement and no masses were felt. EYES: The sclera were anicteric and conjunctiva were pink and moist. Extraocular movements were intact and pupils were equal round and reactive to light. Eyelids were unremarkable. PULMONARY: Diffuse crackles CARDIOVASCULAR: There is a regular rate and rhythm without any murmurs gallops or rubs. ABDOMEN: Soft and nontender with normal bowel sounds. No palpable organomegaly was noted. There is no palpable pulsatile mass. SKIN: Patient has some old bruising to the left anterior chest and some bruising to the left leg. NEUROLOGIC: Patient is alert and oriented2. Cranial nerves II through XII are grossly intact. Motor and sensory are also intact. Normal speech, volume and content. Symmetrical smile. MUSCULOSKELETAL: Normal extremities with adequate strength and full range of motion. 1+ edema LYMPHATICS: No significant lymphadenopathy is noted PSYCHIATRIC: Normal psychiatric evaluation. Limitations: no limitations Course Vital Signs 12/16/20 12/16/20 12/16/20 08:46 09:00 10:00 Temperature 99.0 F 98.0 F Pulse Rate 94 80 69 Respiratory 20 18 16 Rate Blood Pressure 181/86 142/68 107/72 O2 Sat by Pulse 95 97 97 Oximetry Medical Decision Making - Medical Decision Making EKG shows normal sinus rhythm at 82 bpm MN interval 240 QRS is 142 QTC intervals 414 QTC is 43. Patient's EKG shows left bundle branch block. Chest x-ray showed acute pulmonary edema. Patient received Lasix and Nitropaste in the emergency department. Patient blood pressure was elevated Social he received one nitroglycerin sublingual. I gave the patient 1 g Rocephin because The elevated white count and the possibility of underlying pneumonia. I spoke with Dr. Alfonso agreed to admit the patient admitted the patient remaining orders.I consulted cardiology I continued Lasix and Nitropaste on the floor. - Lab Data Result diagrams: 12/16/20 09:01 12/16/20 09:01 Lab Results 12/16/20 12/16/20 12/16/20 Range/Units 09:01 09:01 09:01 WBC 14.1 H (3.8-10.6) k/uL RBC 3.50 L (3.80-5.40) m/uL Hgb 10.9 L (11.4-16.0) gm/dL Hct 33.4 L (34.0-46.0) % MCV 95.4 (80.0-100.0) fL MCH 31.1 (25.0-35.0) pg MCHC 32.6 (31.0-37.0) g/dL RDW 13.9 (11.5-15.5) % Plt Count 89 L (150-450) k/uL MPV 9.6 Neutrophils % 82 % Lymphocytes % 11 % Monocytes % 4 % Eosinophils % 2 % Basophils % 1 % Neutrophils # 11.5 H (1.3-7.7) k/uL Lymphocytes # 1.5 (1.0-4.8) k/uL Monocytes # 0.6 (0-1.0) k/uL Eosinophils # 0.3 (0-0.7) k/uL Basophils # 0.1 (0-0.2) k/uL PT 10.8 (9.0-12.0) sec INR 1.0 (<1.2) APTT 20.0 L (22.0-30.0) sec Sample Site ABG pH (7.35-7.45) ABG pCO2 (35-45) mmHg ABG pO2 (83-108) mmHg ABG HCO3 (21-25) mmol/L ABG Total CO2 (19-24) mmol/L ABG O2 Saturation (94-97) % ABG Base Excess mmol/L Brant Test FiO2 % Sodium 135 L (137-145) mmol/L Potassium 5.5 H (3.5-5.1) mmol/L Chloride 97 L (98-107) mmol/L Carbon Dioxide 28 (22-30) mmol/L Anion Gap 10 mmol/L BUN 33 H (7-17) mg/dL Creatinine 1.01 (0.52-1.04) mg/dL Est GFR (CKD-EPI)AfAm 59 (>60 ml/min/1.73 sqM) Est GFR (CKD-EPI)NonAf 51 (>60 ml/min/1.73 sqM) Glucose 214 H (74-99) mg/dL Plasma Lactic Acid Onofre (0.7-2.0) mmol/L Calcium 8.5 (8.4-10.2) mg/dL Magnesium 2.1 (1.6-2.3) mg/dL Total Bilirubin 1.1 (0.2-1.3) mg/dL AST 35 (14-36) U/L ALT 23 (4-34) U/L Alkaline Phosphatase 79 (38-126) U/L Troponin I (0.000-0.034) ng/mL NT-Pro-B Natriuret Pep pg/mL Total Protein 7.0 (6.3-8.2) g/dL Albumin 3.9 (3.5-5.0) g/dL Coronavirus (PCR) (Not Detectd) 12/16/20 12/16/20 12/16/20 Range/Units 09:01 09:01 09:01 WBC (3.8-10.6) k/uL RBC (3.80-5.40) m/uL Hgb (11.4-16.0) gm/dL Hct (34.0-46.0) % MCV (80.0-100.0) fL MCH (25.0-35.0) pg MCHC (31.0-37.0) g/dL RDW (11.5-15.5) % Plt Count (150-450) k/uL MPV Neutrophils % % Lymphocytes % % Monocytes % % Eosinophils % % Basophils % % Neutrophils # (1.3-7.7) k/uL Lymphocytes # (1.0-4.8) k/uL Monocytes # (0-1.0) k/uL Eosinophils # (0-0.7) k/uL Basophils # (0-0.2) k/uL PT (9.0-12.0) sec INR (<1.2) APTT (22.0-30.0) sec Sample Site ABG pH (7.35-7.45) ABG pCO2 (35-45) mmHg ABG pO2 (83-108) mmHg ABG HCO3 (21-25) mmol/L ABG Total CO2 (19-24) mmol/L ABG O2 Saturation (94-97) % ABG Base Excess mmol/L Brant Test FiO2 % Sodium (137-145) mmol/L Potassium (3.5-5.1) mmol/L Chloride (98-107) mmol/L Carbon Dioxide (22-30) mmol/L Anion Gap mmol/L BUN (7-17) mg/dL Creatinine (0.52-1.04) mg/dL Est GFR (CKD-EPI)AfAm (>60 ml/min/1.73 sqM) Est GFR (CKD-EPI)NonAf (>60 ml/min/1.73 sqM) Glucose (74-99) mg/dL Plasma Lactic Acid Onofre 3.1 H* (0.7-2.0) mmol/L Calcium (8.4-10.2) mg/dL Magnesium (1.6-2.3) mg/dL Total Bilirubin (0.2-1.3) mg/dL AST (14-36) U/L ALT (4-34) U/L Alkaline Phosphatase (38-126) U/L Troponin I <0.012 (0.000-0.034) ng/mL NT-Pro-B Natriuret Pep 2270 pg/mL Total Protein (6.3-8.2) g/dL Albumin (3.5-5.0) g/dL Coronavirus (PCR) (Not Detectd) 12/16/20 12/16/20 Range/Units 09:11 10:12 WBC (3.8-10.6) k/uL RBC (3.80-5.40) m/uL Hgb (11.4-16.0) gm/dL Hct (34.0-46.0) % MCV (80.0-100.0) fL MCH (25.0-35.0) pg MCHC (31.0-37.0) g/dL RDW (11.5-15.5) % Plt Count (150-450) k/uL MPV Neutrophils % % Lymphocytes % % Monocytes % % Eosinophils % % Basophils % % Neutrophils # (1.3-7.7) k/uL Lymphocytes # (1.0-4.8) k/uL Monocytes # (0-1.0) k/uL Eosinophils # (0-0.7) k/uL Basophils # (0-0.2) k/uL PT (9.0-12.0) sec INR (<1.2) APTT (22.0-30.0) sec Sample Site lbrac ABG pH 7.30 L (7.35-7.45) ABG pCO2 62 H (35-45) mmHg ABG pO2 320 H (83-108) mmHg ABG HCO3 30 H (21-25) mmol/L ABG Total CO2 32 H (19-24) mmol/L ABG O2 Saturation 100.0 H (94-97) % ABG Base Excess 3.5 mmol/L Brant Test Yes FiO2 100 % Sodium (137-145) mmol/L Potassium (3.5-5.1) mmol/L Chloride (98-107) mmol/L Carbon Dioxide (22-30) mmol/L Anion Gap mmol/L BUN (7-17) mg/dL Creatinine (0.52-1.04) mg/dL Est GFR (CKD-EPI)AfAm (>60 ml/min/1.73 sqM) Est GFR (CKD-EPI)NonAf (>60 ml/min/1.73 sqM) Glucose (74-99) mg/dL Plasma Lactic Acid Onofre (0.7-2.0) mmol/L Calcium (8.4-10.2) mg/dL Magnesium (1.6-2.3) mg/dL Total Bilirubin (0.2-1.3) mg/dL AST (14-36) U/L ALT (4-34) U/L Alkaline Phosphatase (38-126) U/L Troponin I (0.000-0.034) ng/mL NT-Pro-B Natriuret Pep pg/mL Total Protein (6.3-8.2) g/dL Albumin (3.5-5.0) g/dL Coronavirus (PCR) Not Detected (Not Detectd) Critical Care Time Critical Care Time: Yes Total Critical Care Time: 35 Disposition Clinical Impression: Acute pulmonary edema, Hypertensive urgency Disposition: ADMITTED IP TO THIS HOSP Referrals: Delano Maya MD [Primary Care Provider] - 1-2 days Time of Disposition: 11:44
[2020-12-16 09:24] LABS: Albumin 3.9 g/dL (3.5-5.0); Calcium 8.5 mg/dL (8.4-10.2); Total Bilirubin 1.1 mg/dL (0.2-1.3)
[2020-12-16 09:29] LABS: Prothrombin Time 10.8 sec (9.0-12.0)
[2020-12-16 09:30] LABS: Potassium 5.5 mmol/L (3.5-5.1)
[2020-12-16 09:31] LABS: Magnesium 2.1 mg/dL (1.6-2.3)
[2020-12-16 09:32] LABS: Basophils # (A) 0.1 k/uL (0-0.2); Basophils % (A) 1 %; Eosinophils # (A) 0.3 k/uL (0-0.7); Eosinophils % (A) 2 %; HCT 33.4 % (34.0-46.0); HGB 10.9 gm/dL (11.4-16.0); Lymphocytes # (A) 1.5 k/uL (1.0-4.8); Lymphocytes % (A) 11 %; MCH 31.1 pg (25.0-35.0); MCHC 32.6 g/dL (31.0-37.0); MCV 95.4 fL (80.0-100.0); Mean Platelet Volume 9.6; Monocytes # (A) 0.6 k/uL (0-1.0); Monocytes % (A) 4 %; Neutrophils # (A) 11.5 k/uL (1.3-7.7); Neutrophils % (A) 82 %; RDW 13.9 % (11.5-15.5); WBC 14.1 k/uL (3.8-10.6)
[2020-12-16 09:35] LABS: Platelet Count 89 k/uL (150-450)
--- NOTE | 2020-12-16 09:47 | XR ---
EXAMINATION TYPE: XR chest 1V portable DATE OF EXAM: 12/16/2020 HISTORY: Shortness of breath. COMPARISON: 08/31/2019 TECHNIQUE: Single view of the chest is submitted. FINDINGS: Demonstrated are scattered senescent parenchymal change. Coarse perihilar and basilar infiltrates suspicious for underlying pneumonia. Correlate for Covid 19. The heart is stable. Hilar and mediastinal structures are within normal limits. Degenerative changes are seen of the dorsal spine. IMPRESSION: 1. Correlate for Covid 19 pneumonia.
[2020-12-16] MEDS ORDERED: cefTRIAXone IN SWFI 1,000 MG/10 ML SYRINGE IVP STA (11:07)
[2020-12-16] MEDS: NITROGLYCERIN OINT 1 INCH/GM PACKET TOPICAL SCH ×3 (13:10→20:48)
[2020-12-16] MEDS: FUROSEMIDE 10 MG/ML 4 ML VIAL IV SCH ×2 (16:39→23:10)
[2020-12-16] MEDS ORDERED: traMADol 50 MG TAB PO PRN (16:59)
[2020-12-16] MEDS: METOPROLOL TARTRATE 50 MG TAB PO SCH ×2 (18:01→23:10)
[2020-12-16] MEDS: FERROUS SULFATE 325 MG TAB PO SCH (20:48)
[2020-12-16] MEDS: DOCUSATE 100 MG CAP PO SCH (20:48)
[2020-12-16] MEDS: LATANOPROST 0.005% OPHTH DROPS 2.5 ML BTL BOTH EYES SCH (20:48)
[2020-12-17] MEDS: LEVOTHYROXINE 112 MCG TAB PO SCH (05:16)
[2020-12-17] MEDS: METOPROLOL TARTRATE 50 MG TAB PO SCH ×3 (05:16→19:59)
[2020-12-17 07:13] LABS: HCT 26.3 % (34.0-46.0); Hypochromasia Slight; MCH 30.7 pg (25.0-35.0); MCHC 31.9 g/dL (31.0-37.0); MCV 96.1 fL (80.0-100.0); Mean Platelet Volume 10.3; RBC 2.74 m/uL (3.80-5.40); RDW 14.3 % (11.5-15.5); WBC 11.4 k/uL (3.8-10.6)
[2020-12-17 07:14] LABS: Platelet Count 65 k/uL (150-450)
[2020-12-17 07:15] LABS: HGB 8.4 gm/dL (11.4-16.0)
[2020-12-17 07:24] LABS: Calcium 8.2 mg/dL (8.4-10.2); Potassium 4.4 mmol/L (3.5-5.1)
[2020-12-17] MEDS: FERROUS SULFATE 325 MG TAB PO SCH ×2 (08:52→19:59)
[2020-12-17] MEDS: FUROSEMIDE 10 MG/ML 4 ML VIAL IV SCH ×3 (08:52→22:53)
[2020-12-17] MEDS: CHOLECALCIFEROL 25 MCG (1000 IU) TABLET PO SCH (08:52)
[2020-12-17] MEDS: ASPIRIN 81 MG PO SCH (08:52)
[2020-12-17] MEDS: ASCORBIC ACID 500 MG TAB PO SCH (08:52)
[2020-12-17] MEDS: CITALOPRAM HYDROBROMIDE 20 MG TAB PO SCH (08:52)
[2020-12-17] MEDS: CALCIUM CARB-VIT D 500 MG-5 MCG TAB PO SCH (08:52)
[2020-12-17] MEDS: POTASSIUM CHLORIDE ER 10 MEQ TAB.ER.PRT PO SCH (08:53)
[2020-12-17 12:23] VITALS: BMI 32.9
--- NOTE | 2020-12-17 15:12 | P.CRDCN ---
History of Present Illness Consult date: 12/17/20 Consult reason: atrial fibrillation History of present illness: The patient is an 85-year-old female who resides in extended care facility with multiple comorbid conditions, who presented to the emergency room with hypoxia and mental status changes. On arrival the patient's pulse ox was noted to be in the 50s and she had labored breathing. After the administration of nitroglycerin, her vitals and mental status significantly improved. DIAGNOSTICS: Chest x-ray shows coarse hiliar and basilar infiltrate suspicious for Covid pneumonia EKG showed sinus rhythm with left bundle branch block Laboratory data shows WBC 14.1, hemoglobin 10.9, hematocrit 33.4, sodium 135, potassium 5.5, BUN 33, creatinine 1.01, AST 35, ALT 23, troponin less than 0.012, BNP 2270, rapid coronavirus testing negative Vital signs show blood pressure 125/60, respiratory rate 16, pulse rate 64, temperature 98.2, SpO2 97% on 4 L nasal cannula PAST MEDICAL HISTORY: Atrial fibrillation, COPD, congestive heart failure, hypertension, dyslipidemia, valvular heart disease Detailed chart review was completed. Review of systems and physical exam was not completed due to Covid 19 pandemic. FINAL ASSESSMENT AND PLAN: #1 acute hypoxic respiratory failure, on oxygen #2 pneumonia, possible Covid 19 infection #3 acute on chronic congestive heart failure, elevated BNP #4 history of atrial fibrillation #5 history of hypertension #6 dyslipidemia #7 history of valvular heart disease #8 history of pulmonary hypertension PLAN: Continue current medication regimen including diuretics and metoprolol Continue to monitor electrolytes and kidney function Supportive treatment per pulmonology and infectious disease Further recommendations based upon clinical course The patient has been seen and evaluated. Plan of care has been reviewed and agreed upon by Dr Connelly. Past Medical History Past Medical History: Atrial Fibrillation, Asthma, Cancer, Heart Failure, COPD, CVA/TIA, Eye Disorder, GERD/Reflux, GI Bleed, Hyperlipidemia, Hypertension, Osteoarthritis (OA), Pneumonia, Renal Disease, Skin Disorder, Thyroid Disorder, Vascular Disorder Additional Past Medical History / Comment(s): Lower GI bleed with acute blood loss anemia, thrombocytopenia, gastritis/duodenitis, 2002 colon cancer with surgery/chemo and radiation, chronic hypoxic respiratory failure, home O2 at 2L/NC ATC, pulmonary HTN, pleurisy, chronic kidney disease stage III, CVA with slight speech difficulty, heart murmur, glaucoma bilaterally, hypothyroid, rosacia, UTIs, urine stress incontinence, constipation, diverticular disease, arthritis multiple joints, chronic low back pain, past fall with L hip fracture and R patellar fracture, rib fracture, L hmeral fracture with L shoulder pain, sinus problems, 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 Past Anesthesia/Blood Transfusion Reactions: No Reported Reaction Smoking Status: Former smoker - Past Family History Father Family Medical History: Liver Disease Additional Family Medical History / Comment(s): ETOH abuse - cirrhosis of the liver Mother Family Medical History: Vascular Disorder Additional Family Medical History / Comment(s): Brain aneurysm Medications and Allergies Home Medications Medication Instructions Recorded Confirmed Type Citalopram Hydrobromide [CeleXA] 20 mg PO DAILY 11/30/16 12/16/20 History Potassium Chloride ER [K-Dur 10] 10 meq PO DAILY 11/30/16 12/16/20 History Calcium Carbonate/Vitamin D3 1 tab PO DAILY 05/30/17 12/16/20 History [Calcium 600-Vit D3 800 Tab] rOPINIRole HCL [Requip] 2 mg PO HS 11/02/17 12/16/20 History Levothyroxine Sodium [Synthroid] 112 mcg PO DAILY@0630 #30 tab 09/10/18 12/16/20 Rx Aspirin [[place] Aspirin EC] 81 mg PO DAILY 12/25/18 12/16/20 History Ferrous Sulfate [Feosol] 325 mg PO BID 12/25/18 12/16/20 History Furosemide [Lasix] 40 mg PO BID #60 tab 06/16/19 12/16/20 Rx Docusate [Colace] 200 mg PO HS 08/31/19 12/16/20 History HYDROcodone/APAP 10-325MG [[place] 1 tab PO Q6H PRN #12 tab 05/01/20 12/16/20 Rx 10-325] fentaNYL 50MCG/HR PATCH [Duragesic 1 patch TRANSDERM Q72H #1 patch 05/01/20 12/16/20 Rx 50MCG/HR] traMADol HCl [Ultram] 50 mg PO Q6H PRN #12 tab 05/01/20 12/16/20 Rx Ascorbic Acid [Vitamin C] 500 mg PO DAILY 12/16/20 12/16/20 History Cholecalciferol [Vitamin D3 (25 25 mcg PO DAILY 12/16/20 12/16/20 History Mcg = 1000 Iu)] Latanoprost Ophth [Xalatan 0.005%] 1 drop BOTH EYES HS 12/16/20 12/16/20 History Metoprolol Tartrate [Lopressor] 50 mg PO TID@0500,1300,2100 12/16/20 12/16/20 History Allergies Allergy/AdvReac Type Severity Reaction Status Date / Time codeine AdvReac does not Verified 12/16/20 09:[address] it makes her feel sulfamethoxazole AdvReac does not Verified 12/16/20 09:07 [From Bactrim] like the way it makes her feel trimethoprim [From Bactrim] AdvReac does not Verified 12/16/20 09:[address] it makes her feel Physical Exam Vitals: Vital Signs Temp Pulse Resp BP Pulse Ox 12/17/20 12:00 98.3 F 72 20 144/65 94 L 12/17/20 08:00 98.2 F 64 16 125/60 97 12/17/20 03:37 98.6 F 70 18 101/52 97 12/17/20 00:00 98.5 F 112 H 18 109/56 95 12/16/20 20:00 99 F 118 H 20 133/63 93 L 12/16/20 18:08 93 L 12/16/20 16:55 99 12/16/20 16:00 98.2 F 109 H 15 132/79 99 Intake and Output 12/17/20 12/17/20 12/17/20 06:59 14:59 22:59 Intake Total 361 Output Total 150 Balance -150 361 Intake: Oral 361 Output: Urine 150 Other: Voiding Method Indwelling Catheter Indwelling Catheter Weight 92.5 kg 92.5 kg Results 12/17/20 06:44 12/17/20 06:44 CBC 12/17/20 Range/Units 06:44 WBC 11.4 H (3.8-10.6) k/uL RBC 2.74 L (3.80-5.40) m/uL Hgb 8.4 L D (11.4-16.0) gm/dL Hct 26.3 L (34.0-46.0) % Plt Count 65 L (150-450) k/uL Comprehensive Metabolic Panel 12/17/20 Range/Units 06:44 Sodium 135 L (137-145) mmol/L Potassium 4.4 (3.5-5.1) mmol/L Chloride 96 L (98-107) mmol/L Carbon Dioxide 35 H (22-30) mmol/L BUN 47 H (7-17) mg/dL Creatinine 1.55 H (0.52-1.04) mg/dL Glucose 115 H (74-99) mg/dL Calcium 8.2 L (8.4-10.2) mg/dL Current Medications Generic Name Dose Route Start Last Admin Trade Name Freq PRN Reason Stop Dose Admin Hydrocodone Bitart/Acetaminophen 1 each 12/16/20 16:59 Hydrocodone/Apap 10-325mg 1 Each Tab PO Q6H PRN Pain Ascorbic Acid 500 mg 12/17/20 09:00 12/17/20 08:52 Ascorbic Acid 500 Mg Tab PO 500 mg DAILY ANGELA Administration Aspirin 81 mg 12/17/20 09:00 12/17/20 08:52 Aspirin 81 Mg PO 81 mg DAILY ANGELA Administration Calcium Carbonate 1 each 12/17/20 09:00 12/17/20 08:52 Calcium Carb-Vit D 500 Mg-5 Mcg Tab PO 1 each DAILY ANGELA Administration Cholecalciferol 25 mcg 12/17/20 09:00 12/17/20 08:52 Cholecalciferol 25 Mcg (1000 Iu) Tablet PO 25 mcg DAILY ANGELA Administration Citalopram Hydrobromide 20 mg 12/17/20 09:00 12/17/20 08:52 Citalopram Hydrobromide 20 Mg Tab PO 20 mg DAILY ANGELA Administration Docusate Sodium 200 mg 12/16/20 21:00 12/16/20 20:48 Docusate 100 Mg Cap PO 200 mg HS ANGELA Administration Fentanyl 1 patch 12/16/20 18:00 12/16/20 18:02 Fentanyl 50mcg/Hr Patch TRANSDERM Not Given Q72H [facility] Protocol Ferrous Sulfate 325 mg 12/16/20 21:00 12/17/20 08:52 Ferrous Sulfate 325 Mg Tab PO 325 mg BID ANGELA Administration Furosemide 40 mg 12/16/20 16:00 12/17/20 08:52 Furosemide 10 Mg/Ml 4 Ml Vial IV 40 mg Q8HR ANGELA Administration Latanoprost 1 drops 12/16/20 21:00 12/16/20 20:48 Latanoprost 0.005% Ophth Drops 2.5 Ml Btl BOTH EYES 1 drops HS ANGELA Administration Levothyroxine Sodium 112 mcg 12/17/20 06:30 12/17/20 05:16 Levothyroxine 112 Mcg Tab PO 112 mcg DAILY@0630 ANGELA Administration Metoprolol Tartrate 50 mg 12/16/20 17:30 12/17/20 12:55 Metoprolol Tartrate 50 Mg Tab PO 50 mg TID@0500,1300,2100 ANGELA Administration Potassium Chloride 10 meq 12/17/20 09:00 12/17/20 08:53 Potassium Chloride Er 10 Meq Tab.Er.Prt PO 10 meq DAILY ANGELA Administration Ropinirole HCl 2 mg 12/16/20 21:00 12/16/20 20:48 Ropinirole Hcl 1 Mg Tab PO 2 mg HS ANGELA Administration Tramadol HCl 50 mg 12/16/20 16:59 Tramadol 50 Mg Tab PO Q6H PRN Moderate Pain Intake and Output 12/17/20 12/17/20 12/17/20 06:59 14:59 22:59 Intake Total 361 Output Total 150 Balance -150 361 Intake: Oral 361 Output: Urine 150 Other: Voiding Method Indwelling Catheter Indwelling Catheter Weight 92.5 kg 92.5 kg Patient Weight 12/18/20 06:59 Weight 92.5 kg 12/17/20 06:44 12/17/20 06:44
[2020-12-17] MEDS: guaiFENesin 600 MG TABLET.ER PO SCH ×2 (16:19→19:59)
[2020-12-17] MEDS: DOCUSATE 100 MG CAP PO SCH (19:59)
[2020-12-17] MEDS: LATANOPROST 0.005% OPHTH DROPS 2.5 ML BTL BOTH EYES SCH (19:59)
--- NOTE | 2020-12-17 21:31 | P.HPIM ---
History of Present Illness H&P Date: 12/17/20 Chief Complaint: Cough history of present complaint: This is a very pleasant 85-year-old patient of Dr. Maya. Currently at [facility]. Chronic stable medical conditions include COPD, paroxysmal atrial fibrillation, hypertension, hyperlipidemia, GERD, ost eoarthritis, secondary pulmonary hypertension, hypothyroid, rosacea, osteoarthritis, urine stress incontinence,CHF from diastolic dysfunction EF 55- 60%, severe mitral regurgitation, moderate mitral stenosis, moderate tricuspid regurgitation, secondary pulmonary hypertension. Diverticulosis. at her baseline uses a cane and a walker. EMS was called out patient being short of breath. Pulse ox was down. Had to be given CPAP. Was a little bit delirious. Came in around became more alert. Patient is a cough. A bit congested. Occasional yellow sputum. Denies any office fever or chills. Appetite is okay. Tired rundown. Feeling better this morning. Given Lasix in the ER. Review of systems: GEN.: Tired EYES: None HEENT: None NECK: None RESPIRATORY: As above CARDIOVASCULAR: As above GASTROINTESTINAL: None GENITOURINARY: None MUSCULOSKELETAL: Joint pains LYMPHATICS: None HEMATOLOGICAL: None PSYCHIATRY: anxious NEUROLOGICAL: None Past medical history: Right adnexa growth being followed as an outpatient, COPD, paroxysmal atrial fibrillation, hypertension, hyperlipidemia, COPD, GERD, primary osteoarthritis, colon cancer in 2001, secondary pulmonary hypertension, hypothyroid, rosacea, urinary stress incontinence, osteoarthritis chronic diverticulosis, gastritis duodenitis, colon cancer treated with surgery chemoradiation, home oxygen 2 L, chronic kidney disease stage III, stroke with some speech impairment, hypothyroid,chronic congestive heart failure from diastolic dysfunction EF 55- 60%, severe mitral regurgitation, moderate mitral stenosis, moderate tricuspid regurgitation., chronic thrombocytopenia Social history: At [facility] on Smoked for 20 years, stopped in 1986, smoked a pack and half Physical examination: VITAL SIGNS: 99, 94, 20, 142/68, 97% on BiPAP-on presentation GENERAL: Declining in bed, tired EYES: Pupils equal. Conjunctiva patient HEENT: External appearance of nose and ears normal, oral cavity grossly normal. NECK: JVD possibly raised; masses not palpable. HEART: First and second heart sounds are normal; some edema. LUNGS: Respiratory rate increased, decreased breaths on some crackles ABDOMEN: Soft, nontender, liver spleen not palpable, no masses palpable. PSYCH: Alert and oriented x3; mood and affect slightly anxious. EXTREMITIES: Missing right hand fingers INVESTIGATIONS, reviewed in the clinical context: White count 9.4 hemoglobin 8.4 platelets 65 potassium 4.4 bun 47 creatinine 1.55 Coronavirus [PCR]-not detected Admission labs: White count 14.1 hemoglobin 10.9 platelets 89 sodium 135 potassium 5.5 creatinine 1.01 lactic acid 3.1 ProBNP 2270 troponin I less than 0.012 EKG tracing personally reviewed by me-sinus rhythm, left bundle-branch block, rate 82 Chest x-ray film personally reviewed by me shows some pulmonary edema assessment: - Acute on chronic congestive heart failure exacerbation, from diastolic dysfunction EF 55-60%,-started IV Lasix -Severe mitral regurgitation, moderate mitral stenosis, moderate tricuspid regurgitation -Secondary moderate pulmonary hypertension from COPD and CHF -Acute COPD exacerbation in an [id number], IV steroids -Essential hypertension-continue beta amara -GERD-use PPI -Primary osteoarthritis-use averages 6 when necessary -Secondary pulmonary hypertension from COPD -Hypothyroid-continue Synthroid -Chronic urinary stress incontinence-stable -Chronic diverticulosis-stable -Chronic gait dysfunction uses a cane/walker -Chronic 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 Check BMP in the morning. Cardiology consulted. Care was discussed with the patient. Check pro-calcitonin Past Medical History Past Medical History: Atrial Fibrillation, Asthma, Cancer, Heart Failure, COPD, CVA/TIA, Eye Disorder, GERD/Reflux, GI Bleed, Hyperlipidemia, Hypertension, Osteoarthritis (OA), Pneumonia, Renal Disease, Skin Disorder, Thyroid Disorder, Vascular Disorder Additional Past Medical History / Comment(s): Lower GI bleed with acute blood loss anemia, thrombocytopenia, gastritis/duodenitis, 2002 colon cancer with surgery/chemo and radiation, chronic hypoxic respiratory failure, home O2 at 2L/NC ATC, pulmonary HTN, pleurisy, chronic kidney disease stage III, CVA with slight speech difficulty, heart murmur, glaucoma bilaterally, hypothyroid, rosacia, UTIs, urine stress incontinence, constipation, diverticular disease, arthritis multiple joints, chronic low back pain, past fall with L hip fracture and R patellar fracture, rib fracture, L hmeral fracture with L shoulder pain, sinus problems, 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 Past Anesthesia/Blood Transfusion Reactions: No Reported Reaction Smoking Status: Former smoker - Past Family History Father Family Medical History: Liver Disease Additional Family Medical History / Comment(s): ETOH abuse - cirrhosis of the liver Mother Family Medical History: Vascular Disorder Additional Family Medical History / Comment(s): Brain aneurysm Medications and Allergies Home Medications Medication Instructions Recorded Confirmed Type Citalopram Hydrobromide [CeleXA] 20 mg PO DAILY 11/30/16 12/16/20 History Potassium Chloride ER [K-Dur 10] 10 meq PO DAILY 11/30/16 12/16/20 History Calcium Carbonate/Vitamin D3 1 tab PO DAILY 05/30/17 12/16/20 History [Calcium 600-Vit D3 800 Tab] rOPINIRole HCL [Requip] 2 mg PO HS 11/02/17 12/16/20 History Levothyroxine Sodium [Synthroid] 112 mcg PO DAILY@0630 #30 tab 09/10/18 12/16/20 Rx Aspirin [[place] Aspirin EC] 81 mg PO DAILY 12/25/18 12/16/20 History Ferrous Sulfate [Feosol] 325 mg PO BID 12/25/18 12/16/20 History Furosemide [Lasix] 40 mg PO BID #60 tab 06/16/19 12/16/20 Rx Docusate [Colace] 200 mg PO HS 08/31/19 12/16/20 History HYDROcodone/APAP 10-325MG [[place] 1 tab PO Q6H PRN #12 tab 05/01/20 12/16/20 Rx 10-325] fentaNYL 50MCG/HR PATCH [Duragesic 1 patch TRANSDERM Q72H #1 patch 05/01/20 0 12/16/20 Rx 50MCG/HR] traMADol HCl [Ultram] 50 mg PO Q6H PRN #12 tab 05/01/20 12/16/20 Rx Ascorbic Acid [Vitamin C] 500 mg PO DAILY 12/16/20 12/16/20 History Cholecalciferol [Vitamin D3 (25 25 mcg PO DAILY 12/16/20 12/16/20 History Mcg = 1000 Iu)] Latanoprost Ophth [Xalatan 0.005%] 1 drop BOTH EYES HS 12/16/20 12/16/20 History Metoprolol Tartrate [Lopressor] 50 mg PO TID@0500,1300,2100 12/16/20 12/16/20 History Allergies Allergy/AdvReac Type Severity Reaction Status Date / Time codeine AdvReac does not Verified 12/16/20 09:[address] it makes her feel sulfamethoxazole AdvReac does not Verified 12/16/20 09:07 [From Bactrim] like the way it makes her feel trimethoprim [From Bactrim] AdvReac does not Verified 12/16/20 09:[address] it makes her feel Physical Exam Vitals: Vital Signs Temp Pulse Resp BP Pulse Ox 12/17/20 08:00 98.2 F 64 16 125/60 97 12/17/20 03:37 98.6 F 70 18 101/52 97 12/17/20 00:00 98.5 F 112 H 18 109/56 95 12/16/20 20:00 99 F 118 H 20 133/63 93 L 12/16/20 18:08 93 L 12/16/20 16:55 99 12/16/20 16:00 98.2 F 109 H 15 132/79 99 12/16/20 13:02 97.7 F 70 19 153/67 97 Intake and Output 12/16/20 12/17/20 12/17/20 22:59 06:59 14:59 Intake Total 360 125 Output Total 1250 150 Balance -890 -150 125 Intake: Oral 360 125 Output: Urine 1250 150 Other: Voiding Method Indwelling Catheter Indwelling Catheter Indwelling Catheter # Bowel Movements 1 Weight 92.5 kg 92.5 kg Results CBC & Chem 7: 12/17/20 06:44 12/17/20 06:44 Labs: Abnormal Lab Results - Last 24 Hours (Table) 12/17/20 12/17/20 Range/Units 06:44 06:44 WBC 11.4 H (3.8-10.6) k/uL RBC 2.74 L (3.80-5.40) m/uL Hgb 8.4 L D (11.4-16.0) gm/dL Hct 26.3 L (34.0-46.0) % Plt Count 65 L (150-450) k/uL Sodium 135 L (137-145) mmol/L Chloride 96 L (98-107) mmol/L Carbon Dioxide 35 H (22-30) mmol/L BUN 47 H (7-17) mg/dL Creatinine 1.55 H (0.52-1.04) mg/dL Glucose 115 H (74-99) mg/dL Calcium 8.2 L (8.4-10.2) mg/dL Microbiology - Last 24 Hours (Table) 12/16/20 09:30 Blood Culture - Preliminary Blood No Growth after 24 hours Thrombosis Risk Factor Assmnt - Choose All That Apply Any of the Below Risk Factors Present?: Yes Each Factor Represents 1 point: Abnormal pulmonary function (COPD), Heart failure (<1month), Medical pt on bed rest, Obesity (BMI >25), Serious lung disease incl. pneumonia (< 1month) Each Risk Factor Represents 2 Points: Patient confined to bed, Malignancy Each Risk Factor Represents 3 Points: Age 75 years or older Other congenital or acquired thrombophilia - If yes, enter type in comment: No Thrombosis Risk Factor Assessment Total Risk Factor Score: 12 Thrombosis Risk Factor Assessment Level: High Risk
[2020-12-17] MEDS: methylPREDNISolone SOD SUCCI 40 MG/ML 1 ML VIAL IV SCH (22:53)
[2020-12-18] MEDS: IPRATROPIUM-ALBUTEROL 3 ML NEB INHALATION SCH ×2 (00:15→08:44)
[2020-12-18] MEDS: METOPROLOL TARTRATE 50 MG TAB PO SCH ×3 (05:36→20:37)
[2020-12-18] MEDS: LEVOTHYROXINE 112 MCG TAB PO SCH (05:36)
[2020-12-18 06:36] LABS: Glucose,Whole Blood 245 mg/dL (75-99)
[2020-12-18] MEDS: INSULIN ASPART (NovoLOG) 100 UNIT/ML VIAL SQ SCH ×4 (07:08→20:38)
[2020-12-18 07:17] LABS: Calcium 8.4 mg/dL (8.4-10.2); Potassium 4.5 mmol/L (3.5-5.1)
[2020-12-18] MEDS: POTASSIUM CHLORIDE ER 10 MEQ TAB.ER.PRT PO SCH (08:39)
[2020-12-18] MEDS: methylPREDNISolone SOD SUCCI 40 MG/ML 1 ML VIAL IV SCH ×2 (08:39→20:38)
[2020-12-18] MEDS: FERROUS SULFATE 325 MG TAB PO SCH ×2 (08:39→20:38)
[2020-12-18] MEDS: guaiFENesin 600 MG TABLET.ER PO SCH ×4 (08:39→20:38)
[2020-12-18] MEDS: ASCORBIC ACID 500 MG TAB PO SCH (08:39)
[2020-12-18] MEDS: FUROSEMIDE 10 MG/ML 4 ML VIAL IV SCH ×3 (08:39→23:14)
[2020-12-18] MEDS: CALCIUM CARB-VIT D 500 MG-5 MCG TAB PO SCH (08:40)
[2020-12-18] MEDS: CHOLECALCIFEROL 25 MCG (1000 IU) TABLET PO SCH (08:40)
[2020-12-18] MEDS: CITALOPRAM HYDROBROMIDE 20 MG TAB PO SCH (08:40)
[2020-12-18] MEDS: ASPIRIN 81 MG PO SCH (08:40)
[2020-12-18] MEDS: ALBUTEROL HFA INHALER INHALATION SCH ×4 (08:44→20:47)
[2020-12-18 11:25] LABS: Glucose,Whole Blood 128 mg/dL (75-99)
[2020-12-18] MEDS: TIOTROPIUM 2.5 MCG INHALER INHALATION SCH (12:02)
--- NOTE | 2020-12-18 13:55 | P.PN ---
Subjective Progress Note Date: 12/18/20 The patient was interviewed and examined lying comfortably in bed. She states she does have some shortness of breath, however she feels fine currently. She does have a nonproductive cough. She denies any chest pain or chest pressure. No palpitations, dizziness, or lightheadedness. She states she is tired and fatigued. GENERAL: Well-appearing, well-nourished and in no acute distress. NECK: Supple without JVD or thyromegaly. LUNGS: Breath sounds diminished to auscultation bilaterally. Respiration equal and unlabored. No wheezes, rales or rhonchi. HEART: Regular rate and rhythm. Systolic murmur. No rubs or gallops. S1 and S2 heard. EXTREMITIES: Normal range of motion. Mild bilateral edema. No clubbing or cyanosis. Peripheral pulses intact and strong. VITALS: Blood pressure 139/63, heart rate 65, respiratory rate 20, temperature 97. 9F, SpO2 96% on 2 L nasal cannula TELEMETRY: Sinus rhythm with left bundle branch block LABS: Sodium 136, potassium 4.5 BUN 57, creatinine 1.30 IMPRESSION: #1 acute hypoxic respiratory failure, on oxygen #2 pneumonia, possible: 19 infection #3 acute on chronic congestive heart failure, elevated BNP #4 paroxysmal atrial fibrillation #5 hypertension #6 dyslipidemia #7 history of pulmonary hypertension #8 history of valvular heart disease PLAN: Continue IV diuresis Attending to monitor I&O; patient has lost 1-1/2 kg Continue to monitor electrolytes and kidney function Start losartan 25 mg for hypertension and heart failure The patient has been seen and evaluated. Plan of care has been reviewed and agreed upon by Dr Connelly. Objective - Vital Signs Vital signs: Vital Signs Temp 98.1 F 12/18/20 12:00 Pulse 74 12/18/20 12:00 Resp 18 12/18/20 12:00 BP 167/72 12/18/20 12:00 Pulse Ox 95 12/18/20 12:00 Intake & Output 12/17/20 12/18/20 12/18/20 18:59 06:59 18:59 Intake Total 601 780 240 Output Total 1100 1225 600 Balance -499 -445 -360 Weight 92.5 kg 91 kg Intake: Oral 601 780 240 Output: Urine 1100 1125 600 Emesis 100 Other: Voiding Method Indwelling Catheter Indwelling Catheter # Bowel Movements 1 - Labs CBC & Chem 7: 12/17/20 06:44 12/18/20 06:51 Labs: Abnormal Lab Results - Last 24 Hours (Table) 12/17/20 12/18/20 12/18/20 Range/Units 00:41 06:34 06:51 Sodium 136 L (137-145) mmol/L Chloride 96 L (98-107) mmol/L BUN 57 H (7-17) mg/dL Creatinine 1.30 H (0.52-1.04) mg/dL Glucose 236 H (74-99) mg/dL POC Glucose (mg/dL) 245 H (75-99) mg/dL Procalcitonin 1.73 H (0.02-0.09) ng/mL 12/18/20 Range/Units 11:24 Sodium (137-145) mmol/L Chloride (98-107) mmol/L BUN (7-17) mg/dL Creatinine (0.52-1.04) mg/dL Glucose (74-99) mg/dL POC Glucose (mg/dL) 128 H (75-99) mg/dL Procalcitonin (0.02-0.09) ng/mL Microbiology - Last 24 Hours (Table) 12/16/20 09:30 Blood Culture - Preliminary Blood No Growth after 48 hours
[2020-12-18] MEDS: LOSARTAN 25 MG TAB PO SCH (16:11)
[2020-12-18 16:21] LABS: Glucose,Whole Blood 207 mg/dL (75-99)
--- NOTE | 2020-12-18 18:06 | P.PN ---
Progress Note - Text Progress Note Date: 12/18/20 Chief Complaint: Cough history of present complaint: This is a very pleasant 85-year-old patient of Dr. Maya. Currently at [facility]. Chronic stable medical conditions include COPD, paroxysmal atrial fibrillation, hypertension, hyperlipidemia, GERD, osteoarthritis, secondary pulmonary hypertension, hypothyroid, rosacea, osteoarthritis, urine stress incontinence,CHF from diastolic dysfunction EF 55- 60%, severe mitral regurgitation, moderate mitral stenosis, moderate tricuspid regurgitation, secondary pulmonary hypertension. Diverticulosis. at her baseline uses a cane and a walker. EMS was called out patient being short of breath. Pulse ox was down. Had to be given CPAP. Was a little bit delirious. Came in around became more alert. Patient has a cough. A bit congested. Occasional yellow sputum. Denies any office fever or chills. Appetite is okay. Tired rundown. Feeling better this morning. Given Lasix in the ER. Admitted with CHF and COPD exacerbation. Pneumonia. Started IV Lasix bronchodilator steroids. IV ceftriaxone. Today-short of breath. Cough present. Feeling a bit better. Eating 25-50% Review of systems: Was done for constitutional, cardiovascular, GI, pulmonary. relevant finding as above Active Medications Hydrocodone Bitart/Acetaminophen (Hydrocodone/Apap 10-325mg 1 Each Tab) 1 each PO Q6H PRN PRN Reason: Pain Albuterol Sulfate (Albuterol Hfa Inhaler) 2 puff INHALATION RT-QID [facility] Last Admin: 12/18/20 16:06 Dose: 2 puff Documented by: Ascorbic Acid (Ascorbic Acid 500 Mg Tab) 500 mg PO DAILY [facility] Last Admin: 12/18/20 08:39 Dose: 500 mg Documented by: Aspirin (Aspirin 81 Mg) 81 mg PO DAILY [facility] Last Admin: 12/18/20 08:40 Dose: 81 mg Documented by: Calcium Carbonate (Calcium Carb-Vit D 500 Mg-5 Mcg Tab) 1 each PO DAILY [facility] Last Admin: 12/18/20 08:40 Dose: 1 each Documented by: Cholecalciferol (Cholecalciferol 25 Mcg (1000 Iu) Tablet) 25 mcg PO DAILY [facility] Last Admin: 12/18/20 08:40 Dose: Not Given Documented by: Citalopram Hydrobromide (Citalopram Hydrobromide 20 Mg Tab) 20 mg PO DAILY [facility] Last Admin: 12/18/20 08:40 Dose: 20 mg Documented by: Docusate Sodium (Docusate 100 Mg Cap) 200 mg PO HS [facility] Last Admin: 12/17/20 19:59 Dose: 200 mg Documented by: Fentanyl (Fentanyl 50mcg/Hr Patch) 1 patch TRANSDERM Q72H [facility]; Protocol Last Admin: 12/16/20 18:02 Dose: Not Given Documented by: Ferrous Sulfate (Ferrous Sulfate 325 Mg Tab) 325 mg PO BID [facility] Last Admin: 12/18/20 08:39 Dose: 325 mg Documented by: Furosemide (Furosemide 10 Mg/Ml 4 Ml Vial) 40 mg IV Q8HR [facility] Last Admin: 12/18/20 16:11 Dose: 40 mg Documented by: Guaifenesin (Guaifenesin 600 Mg Tablet.Er) 600 mg PO QID [facility] Last Admin: 12/18/20 12:44 Dose: 600 mg Documented by: Ceftriaxone Sodium 1 gm/ (Sodium Chloride) 50 mls @ 100 mls/hr IVPB Q24H [facility] Last Admin: 12/18/20 16:11 Dose: 100 mls/hr Documented by: Insulin Aspart (Insulin Aspart (Novolog) 100 Unit/Ml Vial) 0 unit SQ [facility]; Protocol Last Admin: 12/18/20 16:46 Dose: 6 unit Documented by: Latanoprost (Latanoprost 0.005% Ophth Drops 2.5 Ml Btl) 1 drops [facility] Last Admin: 12/17/20 19:59 Dose: 1 drops Documented by: Levothyroxine Sodium (Levothyroxine 112 Mcg Tab) 112 mcg PO DAILY@0630 [facility] Last Admin: 12/18/20 05:36 Dose: 112 mcg Documented by: Losartan Potassium (Losartan 25 Mg Tab) 25 mg PO DAILY [facility] Last Admin: 12/18/20 16:11 Dose: 25 mg Documented by: Methylprednisolone Sodium Succinate (Methylprednisolone Sod Succi 40 Mg/Ml 1 Ml Vial) 40 mg IV Q12H [facility] Last Admin: 12/18/20 08:39 Dose: 40 mg Documented by: Metoprolol Tartrate (Metoprolol Tartrate 50 Mg Tab) 50 mg PO TID@0500,1300,2100 [facility] Last Admin: 12/18/20 12:44 Dose: 50 mg Documented by: Potassium Chloride (Potassium Chloride Er 10 Meq Tab.Er.Prt) 10 meq PO DAILY [facility] Last Admin: 12/18/20 08:39 Dose: 10 meq Documented by: Ropinirole HCl (Ropinirole Hcl 1 Mg Tab) 2 mg PO HS [facility] Last Admin: 12/17/20 19:59 Dose: 2 mg Documented by: Tiotropium [place] (Tiotropium 2.5 Mcg Inhaler) 2 puff INHALATION RT-DAILY [facility] Last Admin: 12/18/20 12:02 Dose: 2 puff Documented by: Tramadol HCl (Tramadol 50 Mg Tab) 50 mg PO Q6H PRN PRN Reason: Moderate Pain Past medical history: Right adnexa growth being followed as an outpatient, COPD, paroxysmal atrial fibrillation, hypertension, hyperlipidemia, COPD, GERD, primary osteoarthritis, colon cancer in 2001, secondary pulmonary hypertension, hypothyroid, rosacea, urinary stress incontinence, osteoarthritis chronic diverticulosis, gastritis duodenitis, colon cancer treated with surgery chemoradiation, home oxygen 2 L, chronic kidney disease stage III, stroke with some speech impairment, hypothyroid,chronic congestive heart failure from diastolic dysfunction EF 55- 60%, severe mitral regurgitation, moderate mitral stenosis, moderate tricuspid regurgitation., chronic thrombocytopenia Social history: At [facility] on Smoked for 20 years, stopped in 1986, smoked a pack and half Physical examination: VITAL SIGNS: 98.1, 74, 18, 1 6772, 95% on 2 L GENERAL: Reclining in bed, awake EYES: Pupils equal. Conjunctiva patient HEENT: External appearance of nose and ears normal, oral cavity grossly normal. NECK: JVD possibly raised; masses not palpable. HEART: First and second heart sounds are normal; some edema. LUNGS: Respiratory rate increased, decreased breaths sounds ABDOMEN: Soft, nontender, liver spleen not palpable, no masses palpable. PSYCH: Alert and oriented x3; mood and affect slightly anxious. EXTREMITIES: Missing right hand fingers INVESTIGATIONS, reviewed in the clinical context: December 18: Potassium 4.5 bun 57 creatinine 1.30 White count 9.4 hemoglobin 8.4 platelets 65 potassium 4.4 bun 47 creatinine 1.55 Coronavirus [PCR]-not detected Admission labs: Pro-calcitonin 1.73 White count 14.1 hemoglobin 10.9 platelets 89 sodium 135 potassium 5.5 creatinine 1.01 lactic acid 3.1 ProBNP 2270 troponin I less than 0.012 EKG tracing personally reviewed by me-sinus rhythm, left bundle-branch block, rate 82 Chest x-ray film personally reviewed by me shows some pulmonary edema assessment: - Acute on chronic congestive heart failure exacerbation, from diastolic dy sfunction EF 55-60%,-started IV Lasix -Acute COPD exacerbation in an [id number], IV steroids-slow to respond -Possible pneumonia suspected gram-negative organism- IVs ceftriaxone-slow to respond -Severe mitral regurgitation, moderate mitral stenosis, moderate tricuspid regurgitation -Secondary moderate pulmonary hypertension from COPD and CHF -Essential hypertension-continue beta amara -GERD-use PPI -Primary osteoarthritis-use averages 6 when necessary -Secondary pulmonary hypertension from COPD -Hypothyroid-continue Synthroid -Chronic urinary stress incontinence-stable -Chronic diverticulosis-stable -Chronic gait dysfunction uses a cane/walker -Chronic 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 BMP. Discussed with patient.
[2020-12-18 20:36] LABS: Glucose,Whole Blood 144 mg/dL (75-99)
[2020-12-18] MEDS: DOCUSATE 100 MG CAP PO SCH (20:37)
[2020-12-18] MEDS: LATANOPROST 0.005% OPHTH DROPS 2.5 ML BTL BOTH EYES SCH (20:39)
[2020-12-18] MEDS ORDERED: ONDANSETRON 4 MG/2 ML VIAL IVP STA (21:45)
[2020-12-19 06:12] LABS: Glucose,Whole Blood 184 mg/dL (75-99)
[2020-12-19] MEDS: METOPROLOL TARTRATE 50 MG TAB PO SCH ×3 (06:40→21:06)
[2020-12-19] MEDS: INSULIN ASPART (NovoLOG) 100 UNIT/ML VIAL SQ SCH ×4 (06:40→21:06)
[2020-12-19] MEDS: LEVOTHYROXINE 112 MCG TAB PO SCH (06:40)
[2020-12-19] MEDS: TIOTROPIUM 2.5 MCG INHALER INHALATION SCH (07:34)
[2020-12-19] MEDS: ALBUTEROL HFA INHALER INHALATION SCH ×4 (07:34→20:36)
[2020-12-19 07:52] LABS: Calcium 8.5 mg/dL (8.4-10.2); Potassium 4.5 mmol/L (3.5-5.1)
[2020-12-19] MEDS: POTASSIUM CHLORIDE ER 10 MEQ TAB.ER.PRT PO SCH (09:59)
[2020-12-19] MEDS: CITALOPRAM HYDROBROMIDE 20 MG TAB PO SCH (09:59)
[2020-12-19] MEDS: CALCIUM CARB-VIT D 500 MG-5 MCG TAB PO SCH (09:59)
[2020-12-19] MEDS: FERROUS SULFATE 325 MG TAB PO SCH ×2 (09:59→21:06)
[2020-12-19] MEDS: ASCORBIC ACID 500 MG TAB PO SCH (09:59)
[2020-12-19] MEDS: CHOLECALCIFEROL 25 MCG (1000 IU) TABLET PO SCH (09:59)
[2020-12-19] MEDS: ASPIRIN 81 MG PO SCH (09:59)
[2020-12-19] MEDS: LOSARTAN 25 MG TAB PO SCH (09:59)
[2020-12-19] MEDS: guaiFENesin 600 MG TABLET.ER PO SCH ×4 (10:00→21:06)
[2020-12-19] MEDS: methylPREDNISolone SOD SUCCI 40 MG/ML 1 ML VIAL IV SCH ×2 (10:00→21:07)
[2020-12-19] MEDS ORDERED: LOSARTAN 25 MG TAB PO STA (10:50)
[2020-12-19 12:05] LABS: Glucose,Whole Blood 205 mg/dL (75-99)
[2020-12-19] MEDS: FUROSEMIDE 10 MG/ML 4 ML VIAL IV SCH ×2 (13:21→17:55)
--- NOTE | 2020-12-19 15:24 | P.PN ---
Subjective Progress Note Date: 12/19/20 HISTORY OF PRESENT ILLNESS: patient examined this morning at the bedside. Patient denies chest pain or pressure. She reports minimal shortness of breath. she is currently on 2 L nasal cannula. Patient reports home O2 use as well. She remains on IV Lasix. Creatinine 1.23 today. Fluid balance last 24 hours is -2 L. Patient was started on losartan yesterday secondary to elevated blood pressure. Blood pressure this morning 170/81. PHYSICAL EXAM: VITAL SIGNS: Reviewed. GENERAL: Well-developed in no acute distress. NECK: Supple. No JVD or thyromegaly LUNGS: Respirations even and unlabored. Lungs diminished bilaterally. HEART: Regular rate and rhythm. S1 and S2 heard. EXTREMITIES: Normal range of motion. No clubbing or cyanosis. Peripheral pulses intact. 1+ bilateral lower extremity edema ASSESSMENT: Acute exacerbation of diastolic congestive heart failure, EF 55-60% Pneumonia Acute hypoxic respiratory failure Paroxysmal atrial fibrillation, not on anticoagulation Hypertension Hyperlipidemia Pulmonary hypertension Valvular heart disease PLAN: Continue current cardiac medications Continue IV lasix for another 24 hours Monitor kidney function Accurate I&O Daily weight Further recommendations pending patient course Nurse practitioner note has been reviewed by physician. Signing provider agrees with the documented findings, assessment, and plan of care. Objective - Vital Signs Vital signs: Vital Signs Temp 98.7 F 12/19/20 12:50 Pulse 72 12/19/20 12:50 Resp 16 12/19/20 12:50 BP 148/64 12/19/20 12:50 Pulse Ox 94 L 12/19/20 12:50 Intake & Output 12/18/20 12/19/20 12/19/20 18:59 06:59 18:59 Intake Total 480 240 413 Output Total 1200 1600 Balance -720 -1360 413 Weight 78.8 kg Intake: Oral 480 240 413 Output: Urine 1200 1600 Other: Voiding Method Indwelling Catheter Indwelling Catheter Indwelling Catheter # Bowel Movements 1 - Labs CBC & Chem 7: 12/17/20 06:44 12/19/20 07:11 Labs: Abnormal Lab Results - Last 24 Hours (Table) 12/18/20 12/18/20 12/19/20 Range/Units 16:19 20:22 06:03 Chloride (98-107) mmol/L Carbon Dioxide (22-30) mmol/L BUN (7-17) mg/dL Creatinine (0.52-1.04) mg/dL Glucose (74-99) mg/dL POC Glucose (mg/dL) 207 H 144 H 184 H (75-99) mg/dL Procalcitonin (0.02-0.09) ng/mL 12/19/20 12/19/20 12/19/20 Range/Units 07:11 07:11 12:03 Chloride 95 L (98-107) mmol/L Carbon Dioxide 31 H (22-30) mmol/L BUN 67 H (7-17) mg/dL Creatinine 1.23 H (0.52-1.04) mg/dL Glucose 142 H (74-99) mg/dL POC Glucose (mg/dL) 205 H (75-99) mg/dL Procalcitonin 0.64 H (0.02-0.09) ng/mL Microbiology - Last 24 Hours (Table) 12/16/20 09:30 Blood Culture - Preliminary Blood No Growth after 72 hours
[2020-12-19 16:45] LABS: Hemoglobin A1C 5.1 % (4.0-6.0)
[2020-12-19 16:49] LABS: Glucose,Whole Blood 178 mg/dL (75-99)
[2020-12-19 20:16] LABS: Glucose,Whole Blood 146 mg/dL (75-99)
[2020-12-19] MEDS: DOCUSATE 100 MG CAP PO SCH (21:06)
--- NOTE | 2020-12-19 21:59 | P.PN ---
Progress Note - Text Progress Note Date: 12/19/20 Chief Complaint: Cough history of present complaint: This is a very pleasant 85-year-old patient of Dr. Maya. Currently at [facility]. Chronic stable medical conditions include COPD, paroxysmal atrial fibrillation, hypertension, hyperlipidemia, GERD, osteoarthritis, secondary pulmonary hypertension, hypothyroid, rosacea, osteoarthritis, urine stress incontinence,CHF from diastolic dysfunction EF 55- 60%, severe mitral regurgitation, moderate mitral stenosis, moderate tricuspid regurgitation, secondary pulmonary hypertension. Diverticulosis. at her baseline uses a cane and a walker. EMS was called out patient being short of breath. Pulse ox was down. Had to be given CPAP. Was a little bit delirious. Came in around became more alert. Patient has a cough. A bit congested. Occasional yellow sputum. Denies any fever or chills. Appetite is okay. Tired rundown. Feeling better this morning. Given Lasix in the ER. Admitted with CHF and COPD exacerbation. Pneumonia. Started IV Lasix bronchodilator steroids. IV ceftriaxone. Today-breathing improving. Some cough. Appetite creatinine improved. Review of systems: Was done for constitutional, cardiovascular, GI, pulmonary. relevant finding as above Active Medications Hydrocodone Bitart/Acetaminophen (Hydrocodone/Apap 10-325mg 1 Each Tab) 1 each PO Q6H PRN PRN Reason: Pain Albuterol Sulfate (Albuterol Hfa Inhaler) 2 puff INHALATION RT-QID [facility] Last Admin: 12/19/20 20:36 Dose: 2 puff Documented by: Ascorbic Acid (Ascorbic Acid 500 Mg Tab) 500 mg PO DAILY [facility] Last Admin: 12/19/20 09:59 Dose: 500 mg Documented by: Aspirin (Aspirin 81 Mg) 81 mg PO DAILY [facility] Last Admin: 12/19/20 09:59 Dose: 81 mg Documented by: Calcium Carbonate (Calcium Carb-Vit D 500 Mg-5 Mcg Tab) 1 each PO DAILY [facility] Last Admin: 12/19/20 09:59 Dose: 1 each Documented by: Cholecalciferol (Cholecalciferol 25 Mcg (1000 Iu) Tablet) 25 mcg PO DAILY [facility] Last Admin: 12/19/20 09:59 Dose: 25 mcg Documented by: Citalopram Hydrobromide (Citalopram Hydrobromide 20 Mg Tab) 20 mg PO DAILY [facility] Last Admin: 12/19/20 09:59 Dose: 20 mg Documented by: Docusate Sodium (Docusate 100 Mg Cap) 200 mg PO HS [facility] Last Admin: 12/19/20 21:06 Dose: 200 mg Documented by: Fentanyl (Fentanyl 25mcg/Hr Patch) 1 patch TRANSDERM Q72H [facility]; Protocol Last Admin: 12/19/20 21:05 Dose: 1 patch Documented by: Ferrous Sulfate (Ferrous Sulfate 325 Mg Tab) 325 mg PO BID [facility] Last Admin: 12/19/20 21:06 Dose: 325 mg Documented by: Furosemide (Furosemide 10 Mg/Ml 4 Ml Vial) 40 mg IV Q8HR [facility] Last Admin: 12/19/20 17:55 Dose: 40 mg Documented by: Guaifenesin (Guaifenesin 600 Mg Tablet.Er) 600 mg PO QID [facility] Last Admin: 12/19/20 21:06 Dose: 600 mg Documented by: Ceftriaxone Sodium 1 gm/ (Sodium Chloride) 50 mls @ 100 mls/hr IVPB Q24H [facility] Last Admin: 12/19/20 17:56 Dose: 100 mls/hr Documented by: Insulin Aspart (Insulin Aspart (Novolog) 100 Unit/Ml Vial) 0 unit SQ ACHS [facility]; Protocol Last Admin: 12/19/20 21:06 Dose: 2 unit Documented by: Latanoprost (Latanoprost 0.005% Ophth Drops 2.5 Ml Btl) 1 drops [facility] Last Admin: 12/18/20 20:39 Dose: 1 drops Documented by: Levothyroxine Sodium (Levothyroxine 112 Mcg Tab) 112 mcg PO DAILY@0630 [facility] Last Admin: 12/19/20 06:40 Dose: 112 mcg Documented by: Losartan Potassium (Losartan 50 Mg Tab) 50 mg PO DAILY [facility] Methylprednisolone Sodium Succinate (Methylprednisolone Sod Succi 40 Mg/Ml 1 Ml Vial) 40 mg IV Q12H [facility] Last Admin: 12/19/20 21:07 Dose: 40 mg Documented by: Metoprolol Tartrate (Metoprolol Tartrate 50 Mg Tab) 50 mg PO TID@0500,1300,2100 [facility] Last Admin: 12/19/20 21:06 Dose: 50 mg Documented by: Potassium Chloride (Potassium Chloride Er 10 Meq Tab.Er.Prt) 10 meq PO DAILY [facility] Last Admin: 12/19/20 09:59 Dose: 10 meq Documented by: Ropinirole HCl (Ropinirole Hcl 1 Mg Tab) 2 mg PO HS [facility] Last Admin: 12/19/20 21:06 Dose: 2 mg Documented by: Tiotropium [place] (Tiotropium 2.5 Mcg Inhaler) 2 puff INHALATION RT-DAILY [facility] Last Admin: 12/19/20 07:34 Dose: 2 puff Documented by: Tramadol HCl (Tramadol 50 Mg Tab) 50 mg PO Q6H PRN PRN Reason: Moderate Pain Past medical history: Right adnexa growth being followed as an outpatient, COPD, paroxysmal atrial fibrillation, hypertension, hyperlipidemia, COPD, GERD, primary osteoarthritis, colon cancer in 2001, secondary pulmonary hypertension, hypothyroid, rosacea, urinary stress incontinence, osteoarthritis chronic diverticulosis, gastritis duodenitis, colon cancer treated with surgery chemoradiation, home oxygen 2 L, chronic kidney disease stage III, stroke with some speech impairment, hypothyroid,chronic congestive heart failure from diastolic dysfunction EF 55- 60%, severe mitral regurgitation, moderate mitral stenosis, moderate tricuspid regurgitation., chronic thrombocytopenia Social history: At [facility] on Smoked for 20 years, stopped in 1986, smoked a pack and half Physical examination: VITAL SIGNS: 98.7, 72, 16, 148/64, 94% on 2 L GENERAL: Reclining in bed, awake EYES: Pupils equal. Conjunctiva patient HEENT: External appearance of nose and ears normal, oral cavity grossly normal. NECK: JVD possibly raised; masses not palpable. HEART: First and second heart sounds are normal; some edema. LUNGS: Respiratory rate increased, decreased breaths sounds ABDOMEN: Soft, nontender, liver spleen not palpable, no masses palpable. PSYCH: Alert and oriented x3; mood and affect slightly anxious. EXTREMITIES: Missing right hand fingers INVESTIGATIONS, reviewed in the clinical context: December 19: Potassium 4.5 bun 67 creatinine 1.23 Pro-calcitonin 0.64 December 18: Potassium 4.5 bun 57 creatinine 1.30 White count 9.4 hemoglobin 8.4 platelets 65 potassium 4.4 bun 47 creatinine 1.55 Coronavirus [PCR]-not detected Admission labs: Pro-calcitonin 1.73 White count 14.1 hemoglobin 10.9 platelets 89 sodium 135 potassium 5.5 creatinine 1.01 lactic acid 3.1 ProBNP 2270 troponin I less than 0.012 EKG tracing personally reviewed by me-sinus rhythm, left bundle-branch block, rate 82 Chest x-ray film personally reviewed by me shows some pulmonary edema assessment: - Acute on chronic congestive heart failure exacerbation, from diastolic dysfunc tion EF 55-60%,-continue IV Lasix-improving -Acute COPD exacerbation in an [id number], IV steroids, better -Possible pneumonia suspected gram-negative organism- IVs improving -Severe mitral regurgitation, moderate mitral stenosis, moderate tricuspid regurgitation -Secondary moderate pulmonary hypertension from COPD and CHF -Essential hypertension-continue beta amara -GERD-use PPI -Primary osteoarthritis-use averages 6 when necessary -Secondary pulmonary hypertension from COPD -Hypothyroid-continue Synthroid -Chronic urinary stress incontinence-stable -Chronic diverticulosis-stable -Chronic gait dysfunction uses a cane/walker -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 Repeat chest x-ray.
[2020-12-19] MEDS: LATANOPROST 0.005% OPHTH DROPS 2.5 ML BTL BOTH EYES SCH (22:28)
[2020-12-20] MEDS: FUROSEMIDE 10 MG/ML 4 ML VIAL IV SCH ×2 (00:05→09:20)
[2020-12-20] MEDS: HYDROcodone/APAP 10-325MG 1 EACH TAB PO PRN ×2 (03:37→20:33)
[2020-12-20] MEDS: METOPROLOL TARTRATE 50 MG TAB PO SCH ×2 (03:58→20:34)
[2020-12-20 06:18] LABS: Glucose,Whole Blood 148 mg/dL (75-99)
[2020-12-20] MEDS: INSULIN ASPART (NovoLOG) 100 UNIT/ML VIAL SQ SCH ×4 (06:26→20:34)
[2020-12-20] MEDS: LEVOTHYROXINE 112 MCG TAB PO SCH (06:26)
[2020-12-20 08:02] LABS: Calcium 8.6 mg/dL (8.4-10.2); Potassium 4.7 mmol/L (3.5-5.1)
--- NOTE | 2020-12-20 08:09 | XR ---
EXAMINATION TYPE: XR chest 1V portable DATE OF EXAM: 12/20/2020 CLINICAL HISTORY: Difficulty breathing progress study. TECHNIQUE: Single AP portable upright view of the chest is obtained. COMPARISON: Chest x-ray from 4 days earlier FINDINGS: Osseous structures are demineralized. Old impacted fracture left proximal humerus redemons trated. Stable cardiomegaly with atherosclerotic aorta. Chronic parenchymal changes with patchy left basilar opacity. IMPRESSION: Cardiomegaly with improving central vascular congestion. New patchy left basilar atelecta sis.
[2020-12-20] MEDS: ALBUTEROL HFA INHALER INHALATION SCH ×4 (08:35→21:17)
[2020-12-20] MEDS: TIOTROPIUM 2.5 MCG INHALER INHALATION SCH (08:35)
[2020-12-20] MEDS ORDERED: LOSARTAN 50 MG TAB PO SCH (09:00)
[2020-12-20] MEDS: methylPREDNISolone SOD SUCCI 40 MG/ML 1 ML VIAL IV SCH (09:19)
[2020-12-20] MEDS: ASPIRIN 81 MG PO SCH (09:20)
[2020-12-20] MEDS: guaiFENesin 600 MG TABLET.ER PO SCH ×4 (09:20→23:28)
[2020-12-20] MEDS: CALCIUM CARB-VIT D 500 MG-5 MCG TAB PO SCH (09:20)
[2020-12-20] MEDS: ASCORBIC ACID 500 MG TAB PO SCH (09:20)
[2020-12-20] MEDS: CHOLECALCIFEROL 25 MCG (1000 IU) TABLET PO SCH (09:20)
[2020-12-20] MEDS: FERROUS SULFATE 325 MG TAB PO SCH ×2 (09:20→20:34)
[2020-12-20] MEDS: CITALOPRAM HYDROBROMIDE 20 MG TAB PO SCH (09:20)
[2020-12-20] MEDS: POTASSIUM CHLORIDE ER 10 MEQ TAB.ER.PRT PO SCH (09:21)
[2020-12-20] MEDS ORDERED: LOSARTAN 50 MG TAB PO STA (11:47)
[2020-12-20] MEDS ORDERED: amLODIPine 5 MG TAB PO SCH (12:00)
[2020-12-20 12:02] LABS: Glucose,Whole Blood 149 mg/dL (75-99)
--- NOTE | 2020-12-20 15:20 | P.PN ---
Subjective Progress Note Date: 12/20/20 HISTORY OF PRESENT ILLNESS: 12/19/2020 patient examined this morning at the bedside. Patient denies chest pain or pressure. She reports minimal shortness of breath. she is currently on 2 L nasal cannula. Patient reports home O2 use as well. She remains on IV Lasix. Creatinine 1.23 today. Fluid balance last 24 hours is -2 L. Patient was started on losartan yesterday secondary to elevated blood pressure. Blood pressure this morning 170/81. 12/20/2020 Patient examined this morning at the bedside. Patient denies chest pain or pressure. She states her shortness of breath has resolved. She continues to have a frequent cough. She remains on IV Lasix. Creatinine 1.15 today. BUN 70. Fluid balance of the last 24 hours is -2400cc. blood pressure remains elevated this morning at 194/75. Repeat chest x-ray reveals cardiomegaly with improving vascular congestion. PHYSICAL EXAM: VITAL SIGNS: Reviewed. GENERAL: Well-developed in no acute distress. NECK: Supple. No JVD or thyromegaly LUNGS: Respirations even and unlabored. Lungs diminished bilaterally. HEART: Regular rate and rhythm. S1 and S2 heard. EXTREMITIES: Normal range of motion. No clubbing or cyanosis. Peripheral pulses intact. 1+ bilateral lower extremity edema ASSESSMENT: Acute exacerbation of diastolic congestive heart failure, EF 55-60% Pneumonia Acute hypoxic respiratory failure Paroxysmal atrial fibrillation, not on anticoagulation secondary to history of GI bleed Hypertension Hyperlipidemia Pulmonary hypertension Valvular heart disease PLAN: Increase losartan to 100 mg daily And Norvasc 5 mg daily Discontinue IV Lasix. Transition to oral Lasix 40 mg twice a day Monitor kidney function Accurate I&O Daily weight Further recommendations pending patient course Nurse practitioner note has been reviewed by physician. Signing provider agrees with the documented findings, assessment, and plan of care. Objective - Vital Signs Vital signs: Vital Signs Temp 98.1 F 12/20/20 08:00 Pulse 65 12/20/20 12:00 Resp 18 12/20/20 12:00 BP 211/88 12/20/20 12:00 Pulse Ox 98 12/20/20 12:00 Intake & Output 12/19/20 12/20/20 12/20/20 18:59 06:59 18:59 Intake Total 979 360 Output Total 1650 1800 1600 Balance -671 1800 -1240 Weight 86 kg Intake: Oral 979 360 Output: Urine 1650 1800 1600 Uretheral (Doll) 1300 Other: Voiding Method Indwelling Catheter Indwelling Catheter Indwelling Catheter # Bowel Movements 1 - Labs CBC & Chem 7: 12/17/20 06:44 12/20/20 07:17 Labs: Abnormal Lab Results - Last 24 Hours (Table) 12/19/20 12/19/20 12/20/20 Range/Units 16:47 20:16 06:17 Chloride (98-107) mmol/L Carbon Dioxide (22-30) mmol/L BUN (7-17) mg/dL Creatinine (0.52-1.04) mg/dL Glucose (74-99) mg/dL POC Glucose (mg/dL) 178 H 146 H 148 H (75-99) mg/dL 12/20/20 12/20/20 Range/Units 07:17 11:51 Chloride 96 L (98-107) mmol/L Carbon Dioxide 31 H (22-30) mmol/L BUN 70 H (7-17) mg/dL Creatinine 1.15 H (0.52-1.04) mg/dL Glucose 122 H (74-99) mg/dL POC Glucose (mg/dL) 149 H (75-99) mg/dL Microbiology - Last 24 Hours (Table) 12/16/20 09:30 Blood Culture - Preliminary Blood No Growth after 96 hours
[2020-12-20 16:51] LABS: Glucose,Whole Blood 139 mg/dL (75-99)
[2020-12-20] MEDS: FUROSEMIDE 40 MG TAB PO SCH (17:44)
--- NOTE | 2020-12-20 20:15 | P.PN ---
Progress Note - Text Progress Note Date: 12/20/20 Chief Complaint: Cough history of present complaint: This is a very pleasant 85-year-old patient of Dr. Maya. Currently at [facility]. Chronic stable medical conditions include COPD, paroxysmal atrial fibrillation, hypertension, hyperlipidemia, GERD, osteoarthritis, secondary pulmonary hypertension, hypothyroid, rosacea, osteoarthritis, urine stress incontinence,CHF from diastolic dysfunction EF 55- 60%, severe mitral regurgitation, moderate mitral stenosis, moderate tricuspid regurgitation, secondary pulmonary hypertension. Diverticulosis. at her baseline uses a cane and a walker. EMS was called out patient being short of breath. Pulse ox was down. Had to be given CPAP. Was a little bit delirious. Came in around became more alert. Patient has a cough. A bit congested. Occasional yellow sputum. Denies any fever or chills. Appetite is okay. Tired rundown. Feeling better this morning. Given Lasix in the ER. Admitted with CHF and COPD exacerbation. Pneumonia. Started IV Lasix bronchodilator steroids. IV ceftriaxone. Today-breathing better. Oral intake fair. Blood pressure is running high. On IV Lasix.-About 7 L in negative fluid balance Review of systems: Was done for constitutional, cardiovascular, GI, pulmonary. relevant finding as above Active Medications Hydrocodone Bitart/Acetaminophen (Hydrocodone/Apap 10-325mg 1 Each Tab) 1 each PO Q6H PRN PRN Reason: Pain Last Admin: 12/20/20 03:37 Dose: 1 each Documented by: Albuterol Sulfate (Albuterol Hfa Inhaler) 2 puff INHALATION RT-QID [facility] Last Admin: 12/20/20 16:52 Dose: 2 puff Documented by: Amlodipine Besylate (Amlodipine 5 Mg Tab) 5 mg PO DAILY [facility] Last Admin: 12/20/20 13:12 Dose: 5 mg Documented by: Ascorbic Acid (Ascorbic Acid 500 Mg Tab) 500 mg PO DAILY [facility] Last Admin: 12/20/20 09:20 Dose: 500 mg Documented by: Aspirin (Aspirin 81 Mg) 81 mg PO DAILY [facility] Last Admin: 12/20/20 09:20 Dose: 81 mg Documented by: Calcium Carbonate (Calcium Carb-Vit D 500 Mg-5 Mcg Tab) 1 each PO DAILY [facility] Last Admin: 12/20/20 09:20 Dose: 1 each Documented by: Cholecalciferol (Cholecalciferol 25 Mcg (1000 Iu) Tablet) 25 mcg PO DAILY [facility] Last Admin: 12/20/20 09:20 Dose: 25 mcg Documented by: Citalopram Hydrobromide (Citalopram Hydrobromide 20 Mg Tab) 20 mg PO DAILY [facility] Last Admin: 12/20/20 09:20 Dose: 20 mg Documented by: Docusate Sodium (Docusate 100 Mg Cap) 200 mg PO HS [facility] Last Admin: 12/19/20 21:06 Dose: 200 mg Documented by: Fentanyl (Fentanyl 25mcg/Hr Patch) 1 patch TRANSDERM Q72H [facility]; Protocol Last Admin: 12/19/20 21:05 Dose: 1 patch Documented by: Ferrous Sulfate (Ferrous Sulfate 325 Mg Tab) 325 mg PO BID [facility] Last Admin: 12/20/20 09:20 Dose: 325 mg Documented by: Furosemide (Furosemide 40 Mg Tab) 40 mg PO BID@0900,1600 [facility] Last Admin: 12/20/20 17:44 Dose: 40 mg Documented by: Guaifenesin (Guaifenesin 600 Mg Tablet.Er) 600 mg PO QID [facility] Last Admin: 12/20/20 17:44 Dose: 600 mg Documented by: Ceftriaxone Sodium 1 gm/ (Sodium Chloride) 50 mls @ 100 mls/hr IVPB Q24H [facility] Last Admin: 12/20/20 17:44 Dose: 100 mls/hr Documented by: Insulin Aspart (Insulin Aspart (Novolog) 100 Unit/Ml Vial) 0 unit SQ ACHS [facility]; Protocol Last Admin: 12/20/20 17:45 Dose: 1 unit Documented by: Latanoprost (Latanoprost 0.005% Ophth Drops 2.5 Ml Btl) 1 drops BOTH EYES [facility] Last Admin: 12/19/20 22:28 Dose: 1 drops Documented by: Levothyroxine Sodium (Levothyroxine 112 Mcg Tab) 112 mcg PO DAILY@0630 [facility] Last Admin: 12/20/20 06:26 Dose: 112 mcg Documented by: Losartan Potassium (Losartan 50 Mg Tab) 100 mg PO DAILY [facility] Methylprednisolone Sodium Succinate (Methylprednisolone Sod Succi 40 Mg/Ml 1 Ml Vial) 40 mg IV Q12H [facility] Last Admin: 12/20/20 09:19 Dose: 40 mg Documented by: Metoprolol Tartrate (Metoprolol Tartrate 50 Mg Tab) 100 mg PO BID [facility] Last Admin: 12/20/20 03:58 Dose: 100 mg Documented by: Potassium Chloride (Potassium Chloride Er 10 Meq Tab.Er.Prt) 10 meq PO DAILY [facility] Last Admin: 12/20/20 09:21 Dose: 10 meq Documented by: Ropinirole HCl (Ropinirole Hcl 1 Mg Tab) 2 mg PO HS [facility] Last Admin: 12/19/20 21:06 Dose: 2 mg Documented by: Tiotropium [place] (Tiotropium 2.5 Mcg Inhaler) 2 puff INHALATION RT-DAILY [facility] Last Admin: 12/20/20 08:35 Dose: 2 puff Documented by: Tramadol HCl (Tramadol 50 Mg Tab) 50 mg PO Q6H PRN PRN Reason: Moderate Pain Past medical history: Right adnexa growth being followed as an outpatient, COPD, paroxysmal atrial fibrillation, hypertension, hyperlipidemia, COPD, GERD, primary osteoarthritis, colon cancer in 2001, secondary pulmonary hypertension, hypothyroid, rosacea, urinary stress incontinence, osteoarthritis chronic diverticulosis, gastritis duodenitis, colon cancer treated with surgery chemoradiation, home oxygen 2 L, chronic kidney disease stage III, stroke with some speech impairment, hypothyroid,chronic congestive heart failure from diastolic dysfunction EF 55- 60%, severe mitral regurgitation, moderate mitral stenosis, moderate tricuspid regurgitation., chronic thrombocytopenia Social history: At [facility] on Smoked for 20 years, stopped in 1986, smoked a pack and half Physical examination: VITAL SIGNS: 98.1, 70, 16, 194/75, 97% on 2 L GENERAL: Reclining in bed, awake EYES: Pupils equal. Conjunctiva patient HEENT: External appearance of nose and ears normal, oral cavity grossly normal. NECK: JVD possibly raised; masses not palpable. HEART: First and second heart sounds are normal; some edema. LUNGS: Respiratory rate increased, decreased breaths sounds ABDOMEN: Soft, nontender, liver spleen not palpable, no masses palpable. PSYCH: Alert and oriented x3; mood and affect slightly anxious. EXTREMITIES: Missing right hand fingers INVESTIGATIONS, reviewed in the clinical context: December 20: Potassium 4.7 creatinine 1.15 December 19: Potassium 4.5 bun 67 creatinine 1.23 Pro-calcitonin 0.64 December 18: Potassium 4.5 bun 57 creatinine 1.30 White count 9.4 hemoglobin 8.4 platelets 65 potassium 4.4 bun 47 creatinine 1.55 Coronavirus [PCR]-not detected Admission labs: Pro-calcitonin 1.73 White count 14.1 hemoglobin 10.9 platelets 89 sodium 135 potassium 5.5 creatinine 1.01 lactic acid 3.1 ProBNP 2270 troponin I less than 0.012 EKG tracing personally reviewed by me-sinus rhythm, left bundle-branch block, rate 82 Chest x-ray film personally reviewed by me shows some pulmonary edema assessment: - Acute on chronic congestive heart failure exacerbation, from diastolic dysfunction EF 55-60%,-continue IV Lasix-improving. 7 L in negative fluid balance. -Acute COPD exacerbation in an [id number], IV steroids, better. Switch from IV steroids oral prednisone today. -Possible pneumonia suspected gram-negative organism- IVs improving -Severe mitral regurgitation, moderate mitral stenosis, moderate tricuspid regurgitation -Secondary moderate pulmonary hypertension from COPD and CHF -Essential hypertension-continue beta amara. With urgency. Amlodipine 5 mg started today. 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 Continue IV Lasix. Amlodipine 5 mg added.
[2020-12-20 20:22] LABS: Glucose,Whole Blood 190 mg/dL (75-99)
[2020-12-20] MEDS: DOCUSATE 100 MG CAP PO SCH (20:33)
[2020-12-20] MEDS: predniSONE 20 MG TAB PO SCH (20:34)
[2020-12-20] MEDS: LATANOPROST 0.005% OPHTH DROPS 2.5 ML BTL BOTH EYES SCH (20:36)
[2020-12-21] MEDS: amLODIPine 5 MG TAB PO SCH ×3 (00:35→20:54)
[2020-12-21 06:10] LABS: Glucose,Whole Blood 163 mg/dL (75-99)
[2020-12-21] MEDS: LEVOTHYROXINE 112 MCG TAB PO SCH (06:17)
[2020-12-21] MEDS: INSULIN ASPART (NovoLOG) 100 UNIT/ML VIAL SQ SCH ×4 (06:17→20:55)
[2020-12-21] MEDS: LOSARTAN 50 MG TAB PO SCH (06:23)
[2020-12-21] MEDS: CITALOPRAM HYDROBROMIDE 20 MG TAB PO SCH (08:20)
[2020-12-21] MEDS: guaiFENesin 600 MG TABLET.ER PO SCH ×4 (08:20→20:55)
[2020-12-21] MEDS: CALCIUM CARB-VIT D 500 MG-5 MCG TAB PO SCH (08:20)
[2020-12-21] MEDS: CHOLECALCIFEROL 25 MCG (1000 IU) TABLET PO SCH (08:20)
[2020-12-21] MEDS: FERROUS SULFATE 325 MG TAB PO SCH ×2 (08:20→20:54)
[2020-12-21] MEDS: ASCORBIC ACID 500 MG TAB PO SCH (08:20)
[2020-12-21] MEDS: ASPIRIN 81 MG PO SCH (08:20)
[2020-12-21] MEDS: predniSONE 20 MG TAB PO SCH (08:21)
[2020-12-21] MEDS: POTASSIUM CHLORIDE ER 10 MEQ TAB.ER.PRT PO SCH (08:21)
[2020-12-21] MEDS: FUROSEMIDE 40 MG TAB PO SCH ×2 (08:21→17:20)
[2020-12-21] MEDS: ALBUTEROL HFA INHALER INHALATION SCH ×4 (08:21→20:19)
[2020-12-21] MEDS: METOPROLOL TARTRATE 50 MG TAB PO SCH ×3 (08:21→20:55)
[2020-12-21] MEDS: TIOTROPIUM 2.5 MCG INHALER INHALATION SCH (08:22)
[2020-12-21 11:21] LABS: Calcium 9.4 mg/dL (8.4-10.2); Potassium 4.4 mmol/L (3.5-5.1)
[2020-12-21 11:34] LABS: Glucose,Whole Blood 110 mg/dL (75-99)
--- NOTE | 2020-12-21 15:30 | P.PN ---
Subjective Progress Note Date: 12/21/20 HISTORY OF PRESENT ILLNESS: 12/19/2020 patient examined this morning at the bedside. Patient denies chest pain or pressure. She reports minimal shortness of breath. she is currently on 2 L nasal cannula. Patient reports home O2 use as well. She remains on IV Lasix. Creatinine 1.23 today. Fluid balance last 24 hours is -2 L. Patient was started on losartan yesterday secondary to elevated blood pressure. Blood pressure this morning 170/81. 12/20/2020 Patient examined this morning at the bedside. Patient denies chest pain or pressure. She states her shortness of breath has resolved. She continues to have a frequent cough. She remains on IV Lasix. Creatinine 1.15 today. BUN 70. Fluid balance of the last 24 hours is -2400cc. blood pressure remains elevated this morning at 194/75. Repeat chest x-ray reveals cardiomegaly with improving vascular congestion. 12/21/2020 Patient examined on the cardiac stepdown unit. She is sitting up in the chair. She denies chest pain or pressure. Denies shortness of breath. Patient's blood pressure remained elevated last night and her Norvasc was increased to twice a day dosing. Blood pressure this morning 155/65. BUN 56. Creatinine 1.18. Fluid balance of the last 24 hours is -2470cc. PHYSICAL EXAM: VITAL SIGNS: Reviewed. GENERAL: Well-developed in no acute distress. NECK: Supple. No JVD or thyromegaly LUNGS: Respirations even and unlabored. Lungs diminished bilaterally. HEART: Regular rate and rhythm. S1 and S2 heard. EXTREMITIES: Normal range of motion. No clubbing or cyanosis. Peripheral pulses intact. 1+ bilateral lower extremity edema ASSESSMENT: Acute exacerbation of diastolic congestive heart failure, EF 55-60% Pneumonia Acute hypoxic respiratory failure Paroxysmal atrial fibrillation, not on anticoagulation secondary to history of GI bleed Hypertension Hyperlipidemia Pulmonary hypertension Valvular heart disease PLAN: No further adjustments at this time to antihypertensive regimen as multiple adjustments were made yesterday. Will continue to monitor blood pressure at this time. Continue oral lasix Monitor kidney function Accurate I&O Daily weight Patient currently stable from a cardiac perspective Nurse practitioner note has been reviewed by physician. Signing provider agrees with the documented findings, assessment, and plan of care. Objective - Vital Signs Vital signs: Vital Signs Temp 97.3 F L 12/21/20 04:00 Pulse 68 12/21/20 11:42 Resp 18 12/21/20 08:00 BP 167/70 12/21/20 11:42 Pulse Ox 99 12/21/20 11:42 Intake & Output 12/20/20 12/21/20 12/21/20 18:59 06:59 18:59 Intake Total 840 240 Output Total 2150 1160 300 Balance -1310 -1160 -60 Weight 85.5 kg Intake: Oral 840 240 Output: Urine 2150 1160 300 Other: Voiding Method Indwelling Catheter Indwelling Catheter Indwelling Catheter # Voids 1 # Bowel Movements 1 1 - Labs CBC & Chem 7: 12/17/20 06:44 12/21/20 10:03 Labs: Abnormal Lab Results - Last 24 Hours (Table) 12/20/20 12/20/20 12/21/20 Range/Units 16:48 20:21 06:09 Chloride (98-107) mmol/L Carbon Dioxide (22-30) mmol/L BUN (7-17) mg/dL Creatinine (0.52-1.04) mg/dL Glucose (74-99) mg/dL POC Glucose (mg/dL) 139 H 190 H 163 H (75-99) mg/dL 12/21/20 12/21/20 Range/Units 10:03 11:32 Chloride 97 L (98-107) mmol/L Carbon Dioxide 32 H (22-30) mmol/L BUN 56 H (7-17) mg/dL Creatinine 1.18 H (0.52-1.04) mg/dL Glucose 114 H (74-99) mg/dL POC Glucose (mg/dL) 110 H (75-99) mg/dL Microbiology - Last 24 Hours (Table) 12/16/20 09:30 Blood Culture - Preliminary Blood No Growth after 120 hours
[2020-12-21 16:53] LABS: Glucose,Whole Blood 126 mg/dL (75-99)
[2020-12-21 20:35] LABS: Glucose,Whole Blood 237 mg/dL (75-99)
[2020-12-21] MEDS: DOCUSATE 100 MG CAP PO SCH (20:54)
[2020-12-21] MEDS: LATANOPROST 0.005% OPHTH DROPS 2.5 ML BTL BOTH EYES SCH (20:56)
[2020-12-21] MEDS ORDERED: DILTIAZEM DRIP BOLUS FROM BAG 1 MG SOLN IV ONE (21:54)
[2020-12-21] MEDS ORDERED: DILTIAZEM 125 MG in SODIUM CHLORIDE 0.9% 100 ML IV SCH (22:00)
--- NOTE | 2020-12-21 22:52 | P.PN ---
Progress Note - Text Progress Note Date: 12/21/20 Chief Complaint: Cough history of present complaint: This is a very pleasant 85-year-old patient of Dr. Maya. Currently at [facility]. Chronic stable medical conditions include COPD, paroxysmal atrial fibrillation, hypertension, hyperlipidemia, GERD, osteoarthritis, secondary pulmonary hypertension, hypothyroid, rosacea, osteoarthritis, urine stress incontinence,CHF from diastolic dysfunction EF 55- 60%, severe mitral regurgitation, moderate mitral stenosis, moderate tricuspid regurgitation, secondary pulmonary hypertension. Diverticulosis. at her baseline uses a cane and a walker. EMS was called out patient being short of breath. Pulse ox was down. Had to be given CPAP. Was a little bit delirious. Came in around became more alert. Patient has a cough. A bit congested. Occasional yellow sputum. Denies any fever or chills. Appetite is okay. Tired rundown. Feeling better this morning. Given Lasix in the ER. Admitted with CHF and COPD exacerbation. Pneumonia. Started IV Lasix bronchodilator steroids. IV ceftriaxone. Blood pressure running high. Norvasc added. Today-this morning patient is doing well. Then went back into A. fib with rapid ventricular rate. Was put on a Cardizem drip. Late in the day she went back into sinus rhythm. Blood pressure been running high. Norvasc was increased to 5 mg twice a day yesterday. This patient was improved. Eating well. Review of systems: Was done for constitutional, cardiovascular, GI, pulmonary. relevant finding as above Active Medications Hydrocodone Bitart/Acetaminophen (Hydrocodone/Apap 10-325mg 1 Each Tab) 1 each PO Q6H PRN PRN Reason: Pain Last Admin: 12/20/20 20:33 Dose: 1 each Documented by: Albuterol Sulfate (Albuterol Hfa Inhaler) 2 puff INHALATION RT-QID [facility] Last Admin: 12/21/20 20:19 Dose: 2 puff Documented by: Amlodipine Besylate (Amlodipine 5 Mg Tab) 5 mg PO BID [facility] Last Admin: 12/21/20 20:54 Dose: 5 mg Documented by: Ascorbic Acid (Ascorbic Acid 500 Mg Tab) 500 mg PO DAILY [facility] Last Admin: 12/21/20 08:20 Dose: 500 mg Documented by: Aspirin (Aspirin 81 Mg) 81 mg PO DAILY [facility] Last Admin: 12/21/20 08:20 Dose: 81 mg Documented by: Calcium Carbonate (Calcium Carb-Vit D 500 Mg-5 Mcg Tab) 1 each PO DAILY [facility] Last Admin: 12/21/20 08:20 Dose: 1 each Documented by: Cholecalciferol (Cholecalciferol 25 Mcg (1000 Iu) Tablet) 25 mcg PO DAILY [facility] Last Admin: 12/21/20 08:20 Dose: 25 mcg Documented by: Citalopram Hydrobromide (Citalopram Hydrobromide 20 Mg Tab) 20 mg PO DAILY [facility] Last Admin: 12/21/20 08:20 Dose: 20 mg Documented by: Docusate Sodium (Docusate 100 Mg Cap) 200 mg PO HS [facility] Last Admin: 12/21/20 20:54 Dose: 200 mg Documented by: Fentanyl (Fentanyl 25mcg/Hr Patch) 1 patch TRANSDERM Q72H [facility]; Protocol Last Admin: 12/19/20 21:05 Dose: 1 patch Documented by: Ferrous Sulfate (Ferrous Sulfate 325 Mg Tab) 325 mg PO BID [facility] Last Admin: 12/21/20 20:54 Dose: 325 mg Documented by: Furosemide (Furosemide 40 Mg Tab) 40 mg PO BID@0900,1600 [facility] Last Admin: 12/21/20 17:20 Dose: 40 mg Documented by: Guaifenesin (Guaifenesin 600 Mg Tablet.Er) 600 mg PO QID [facility] Last Admin: 12/21/20 20:55 Dose: 600 mg Documented by: Ceftriaxone Sodium 1 gm/ (Sodium Chloride) 50 mls @ 100 mls/hr IVPB Q24H [facility] Last Admin: 12/21/20 17:19 Dose: 100 mls/hr Documented by: Diltiazem HCl 125 mg/ Sodium (Chloride) 125 mls @ 10 mls/hr IV .[id number] [facility] Insulin Aspart (Insulin Aspart (Novolog) 100 Unit/Ml Vial) 0 unit SQ ACHS [facility]; Protocol Last Admin: 12/21/20 20:55 Dose: 8 unit Documented by: Latanoprost (Latanoprost 0.005% Ophth Drops 2.5 Ml Btl) 1 drops BOTH EYES [facility] Last Admin: 12/21/20 20:56 Dose: 1 drops Documented by: Levothyroxine Sodium (Levothyroxine 112 Mcg Tab) 112 mcg PO DAILY@0630 [facility] Last Admin: 12/21/20 06:17 Dose: 112 mcg Documented by: Losartan Potassium (Losartan 50 Mg Tab) 100 mg PO DAILY [facility] Last Admin: 12/21/20 06:23 Dose: 100 mg Documented by: Metoprolol Tartrate (Metoprolol Tartrate 50 Mg Tab) 50 mg PO TID [facility] Last Admin: 12/21/20 20:55 Dose: 50 mg Documented by: Potassium Chloride (Potassium Chloride Er 10 Meq Tab.Er.Prt) 10 meq PO DAILY [facility] Last Admin: 12/21/20 08:21 Dose: 10 meq Documented by: Prednisone (Prednisone 20 Mg Tab) 40 mg PO DAILY [facility] Last Admin: 12/21/20 08:21 Dose: 40 mg Documented by: Ropinirole HCl (Ropinirole Hcl 1 Mg Tab) 2 mg PO HS [facility] Last Admin: 12/21/20 20:55 Dose: 2 mg Documented by: Tiotropium [place] (Tiotropium 2.5 Mcg Inhaler) 2 puff INHALATION RT-DAILY [facility] Last Admin: 12/21/20 08:22 Dose: 2 puff Documented by: Tramadol HCl (Tramadol 50 Mg Tab) 50 mg PO Q6H PRN PRN Reason: Moderate Pain Past medical history: Right adnexa growth being followed as an outpatient, COPD, paroxysmal atrial fibrillation, hypertension, hyperlipidemia, COPD, GERD, primary osteoarthritis, colon cancer in 2001, secondary pulmonary hypertension, hypothyroid, rosacea, urinary stress incontinence, osteoarthritis chronic diverticulosis, gastritis duodenitis, colon cancer treated with surgery chemoradiation, home oxygen 2 L, chronic kidney disease stage III, stroke with some speech impairment, hypothyroid,chronic congestive heart failure from diastolic dysfunction EF 55- 60%, severe mitral regurgitation, moderate mitral stenosis, moderate tricuspid regurgitation., chronic thrombocytopenia Social history: At [facility] on Smoked for 20 years, stopped in 1986, smoked a pack and half Physical examination: VITAL SIGNS: 97.3, 58, 18, 155/65, GENERAL: Sitting up in a chair, comfortable EYES: Pupils equal. Conjunctiva patient HEENT: External appearance of nose and ears normal, oral cavity grossly normal. NECK: JVD possibly raised; masses not palpable. HEART: Heart sounds irregular; some edema. LUNGS: Respiratory rate normal, fair air entry ABDOMEN: Soft, nontender, liver spleen not palpable, no masses palpable. PSYCH: Alert and oriented x3; mood and affect slightly anxious. EXTREMITIES: Missing right hand fingers INVESTIGATIONS, reviewed in the clinical context: December 21: Potassium 4.4 bun 56 creatinine 1.18 December 20: Potassium 4.7 creatinine 1.15 December 19: Potassium 4.5 bun 67 creatinine 1.23 Pro-calcitonin 0.64 December 18: Potassium 4.5 bun 57 creatinine 1.30 White count 9.4 hemoglobin 8.4 platelets 65 potassium 4.4 bun 47 creatinine 1.55 Coronavirus [PCR]-not detected Admission labs: Pro-calcitonin 1.73 White count 14.1 hemoglobin 10.9 platelets 89 sodium 135 potassium 5.5 creatinine 1.01 lactic acid 3.1 ProBNP 2270 troponin I less than 0.012 EKG tracing personally reviewed by me-sinus rhythm, left bundle-branch block, rate 82 Chest x-ray film personally reviewed by me shows some pulmonary edema assessment: - Acute on chronic congestive heart failure exacerbation, from diastolic dysfunction EF 55-60%,-continue IV Lasix- 7 L in negative fluid balance. Improved. Swished over to by mouth Lasix -Acute COPD exacerbation in an [id number], IV steroids, better. Switch from IV steroids oral prednisone better. -Possible pneumonia suspected gram-negative organism-DC IV ceftriaxone. Changed to Vantin -Severe mitral regurgitation, moderate mitral stenosis, moderate tricuspid regur gitation -Secondary moderate pulmonary hypertension from COPD and CHF -Essential hypertension-continue beta amara. With urgency. Amlodipine 5 mg started today. 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 Started on Cardizem drip. Later today went back into sinus rhythm. Additionally: Changed to oral prednisone. DC IV ceftriaxone. Placed on IV Cardizem drip. Repeat labs
[2020-12-22 00:36] VITALS: RESP 18
[2020-12-22 06:22] LABS: Glucose,Whole Blood 100 mg/dL (75-99)
[2020-12-22] MEDS: LEVOTHYROXINE 112 MCG TAB PO SCH (06:27)
[2020-12-22] MEDS: INSULIN ASPART (NovoLOG) 100 UNIT/ML VIAL SQ SCH ×2 (06:28→15:04)
[2020-12-22] MEDS: TIOTROPIUM 2.5 MCG INHALER INHALATION SCH (07:41)
[2020-12-22] MEDS: ALBUTEROL HFA INHALER INHALATION SCH ×3 (07:41→15:20)
[2020-12-22] MEDS: ASPIRIN 81 MG PO SCH (10:38)
[2020-12-22] MEDS: LOSARTAN 50 MG TAB PO SCH (10:38)
[2020-12-22] MEDS: CALCIUM CARB-VIT D 500 MG-5 MCG TAB PO SCH (10:38)
[2020-12-22] MEDS: CITALOPRAM HYDROBROMIDE 20 MG TAB PO SCH (10:38)
[2020-12-22] MEDS: CHOLECALCIFEROL 25 MCG (1000 IU) TABLET PO SCH (10:38)
[2020-12-22] MEDS: amLODIPine 5 MG TAB PO SCH (10:38)
[2020-12-22] MEDS: POTASSIUM CHLORIDE ER 10 MEQ TAB.ER.PRT PO SCH (10:38)
[2020-12-22] MEDS: METOPROLOL TARTRATE 50 MG TAB PO SCH ×2 (10:39→16:05)
[2020-12-22] MEDS: FUROSEMIDE 40 MG TAB PO SCH ×2 (10:39→16:06)
[2020-12-22] MEDS: guaiFENesin 600 MG TABLET.ER PO SCH ×2 (10:39→16:06)
[2020-12-22] MEDS: predniSONE 20 MG TAB PO SCH (10:39)
[2020-12-22] MEDS: FERROUS SULFATE 325 MG TAB PO SCH (10:39)
[2020-12-22] MEDS: ASCORBIC ACID 500 MG TAB PO SCH (10:39)
[2020-12-22 10:53] VITALS: TEMP 98.1
[2020-12-22 12:01] LABS: Glucose,Whole Blood 113 mg/dL (75-99)
[2020-12-22] MEDS ORDERED: AMIODARONE 200 MG TAB PO SCH (12:45)
--- NOTE | 2020-12-22 12:58 | P.PN ---
Subjective Progress Note Date: 12/22/20 HISTORY OF PRESENT ILLNESS: 12/19/2020 patient examined this morning at the bedside. Patient denies chest pain or pressure. She reports minimal shortness of breath. she is currently on 2 L nasal cannula. Patient reports home O2 use as well. She remains on IV Lasix. Creatinine 1.23 today. Fluid balance last 24 hours is -2 L. Patient was started on losartan yesterday secondary to elevated blood pressure. Blood pressure this morning 170/81. 12/20/2020 Patient examined this morning at the bedside. Patient denies chest pain or pressure. She states her shortness of breath has resolved. She continues to have a frequent cough. She remains on IV Lasix. Creatinine 1.15 today. BUN 70. Fluid balance of the last 24 hours is -2400cc. blood pressure remains elevated this morning at 194/75. Repeat chest x-ray reveals cardiomegaly with improving vascular congestion. 12/21/2020 Patient examined on the cardiac stepdown unit. She is sitting up in the chair. She denies chest pain or pressure. Denies shortness of breath. Patient's blood pressure remained elevated last night and her Norvasc was increased to twice a day dosing. Blood pressure this morning 155/65. BUN 56. Creatinine 1.18. Fluid balance of the last 24 hours is -2470cc. 12/22/2020 Patient went into A. fib with RVR yesterday. Cardizem drip was ordered however patient did not have IV access. Patient spontaneously converted to sinus mechanism overnight and IV Cardizem was not started. Patient is currently in sinus rhythm this morning. Blood pressure 150/88. PHYSICAL EXAM: VITAL SIGNS: Reviewed. GENERAL: Well-developed in no acute distress. NECK: Supple. No JVD or thyromegaly LUNGS: Respirations even and unlabored. Lungs diminished bilaterally. HEART: Regular rate and rhythm. S1 and S2 heard. EXTREMITIES: Normal range of motion. No clubbing or cyanosis. Peripheral pulses intact. 1+ bilateral lower extremity edema ASSESSMENT: Acute exacerbation of diastolic congestive heart failure, EF 55-60% Pneumonia Acute hypoxic respiratory failure Paroxysmal atrial fibrillation, not on anticoagulation secondary to history of GI bleed Hypertension Hyperlipidemia Pulmonary hypertension Valvular heart disease PLAN: Continue current cardiac medications Begin amio 400mg PO for 3 days then decrease to 200mg BID Monitor kidney function Accurate I&O Daily weight Patient currently stable from a cardiac perspective Nurse practitioner note has been reviewed by physician. Signing provider agrees with the documented findings, assessment, and plan of care. Objective - Vital Signs Vital signs: Vital Signs Temp 98.1 F 12/22/20 08:00 Pulse 52 L 12/22/20 08:00 Resp 18 12/22/20 08:00 BP 143/64 12/22/20 08:00 Pulse Ox 100 12/22/20 08:00 Intake & Output 12/21/20 12/22/20 12/22/20 18:59 06:59 18:59 Intake Total 480 540 Output Total 300 Balance 180 540 Weight 76.9 kg Intake: Oral 480 540 Output: Urine 300 Other: Voiding Method Indwelling Catheter # Voids 3 1 1 # Bowel Movements 2 1 1 - Labs CBC & Chem 7: 12/17/20 06:44 12/21/20 10:03 Labs: Abnormal Lab Results - Last 24 Hours (Table) 12/21/20 12/21/20 12/22/20 Range/Units 16:52 20:32 06:20 POC Glucose (mg/dL) 126 H 237 H 100 H (75-99) mg/dL 12/22/20 Range/Units 11:52 POC Glucose (mg/dL) 113 H (75-99) mg/dL Microbiology - Last 24 Hours (Table) 12/16/20 09:30 Blood Culture - Final Blood No Growth after 144 hours
[2020-12-22 13:46] LABS: Calcium 9.1 mg/dL (8.4-10.2)
[2020-12-22 13:47] LABS: Potassium 5.6 mmol/L (3.5-5.1)
[2020-12-22 13:51] VITALS: PULSE 74
[2020-12-22] MEDS ORDERED: SODIUM POLYSTYRENE SULFONATE 15 GM/60 ML BOTTLE PO STA (15:22)
--- NOTE | 2020-12-22 15:25 | P.DS ---
Providers Date of admission: 12/16/20 11:45 Expected date of discharge: 12/22/20 Attending physician: Jona Alfonso Consults: 12/16/20 11:45 Consult Physician Routine Consulting Provider: [facility] Consult Reason/Comments: Acute pulmonary edema Do you want consulting provider notified?: Yes Primary care physician: Doe Richstefanie [facility] Course: Chief Complaint: Cough history of present complaint: This is a very pleasant 85-year-old patient of Dr. Maya. Currently at [facility]. Chronic stable medical conditions include COPD, paroxysmal atrial fibrillation, hypertension, hyperlipidemia, GERD, osteoarthritis, secondary pulmonary hypertension, hypothyroid, rosacea, osteoarthritis, urine stress incontinence,CHF from diastolic dysfunction EF 55- 60%, severe mitral regurgitation, moderate mitral stenosis, moderate tricuspid regurgitation, secondary pulmonary hypertension. Diverticulosis. at her baseline uses a cane and a walker. EMS was called out patient being short of breath. Pulse ox was down. Had to be given CPAP. Was a little bit delirious. Came in around became more alert. Patient has a cough. A bit congested. Occasional yellow sputum. Denies any fever or chills. Appetite is okay. Tired rundown. Feeling better this morning. Given Lasix in the ER. Admitted with CHF and COPD exacerbation. Pneumonia. Started IV Lasix bronchodilator steroids. IV ceftriaxone. Blood pressure running high. Norvasc added. Today-this morning patient is doing well. Then went back into A. fib with rapid ventricular rate. Was put on a Cardizem drip. Late in the day she went back into sinus rhythm. Blood pressure been running high. Norvasc was increased to 5 mg twice a day yesterday. Today-doing well. Sitting up. Remains in sinus rhythm. Discussed with cardiology, okay to DC. recovery operator to oral antibiotic. Cough and sputum production much improved. Potassium 5.6. Dose of Kayexalate ordered. Potassium discontinued. Repeat BMP tomorrow. Discussion and discharge planning more than 35 minutes Consultation: Dr. Estefania Pennington from cardiology Past medical history: Right adnexa growth being followed as an outpatient, COPD, paroxysmal atrial fibrillation, hypertension, hyperlipidemia, COPD, GERD, primary osteoarthritis, colon cancer in 2001, secondary pulmonary hypertension, hypothyroid, rosacea, urinary stress incontinence, osteoarthritis chronic diverticulosis, gastritis duodenitis, colon cancer treated with surgery chemoradiation, home oxygen 2 L, chronic kidney disease stage III, stroke with some speech impairment, hypothyroid,chronic congestive heart failure from diastolic dysfunction EF 55- 60%, severe mitral regurgitation, moderate mitral stenosis, moderate tricuspid regurgitation., chronic thrombocytopenia Social history: At [facility] on Smoked for 20 years, stopped in 1986, smoked a pack and half Physical examination: VITAL SIGNS: 98.1, 74, 18, 138/59, 95% room air GENERAL: Sitting up in a chair, comfortable EYES: Pupils equal. Conjunctiva patient HEENT: External appearance of nose and ears normal, oral cavity grossly normal. NECK: JVD possibly raised; masses not palpable. HEART: Heart sounds irregular; some edema. LUNGS: Respiratory rate normal, fair air entry ABDOMEN: Soft, nontender, liver spleen not palpable, no masses palpable. PSYCH: Alert and oriented x3; mood and affect slightly anxious. EXTREMITIES: Missing right hand fingers INVESTIGATIONS, reviewed in the clinical context: December 22: Potassium 5.6 creatinine 1.0 BUN 62 December 21: Potassium 4.4 bun 56 creatinine 1.18 December 20: Potassium 4.7 creatinine 1.15 December 19: Potassium 4.5 bun 67 creatinine 1.23 Pro-calcitonin 0.64 December 18: Potassium 4.5 bun 57 creatinine 1.30 White count 9.4 hemoglobin 8.4 platelets 65 potassium 4.4 bun 47 creatinine 1.55 Coronavirus [PCR]-not detected Admission labs: Pro-calcitonin 1.73 White count 14.1 hemoglobin 10.9 platelets 89 sodium 135 potassium 5.5 creatinine 1.01 lactic acid 3.1 ProBNP 2270 troponin I less than 0.012 EKG tracing personally reviewed by me-sinus rhythm, left bundle-branch block, ra te 82 Chest x-ray film personally reviewed by me shows some pulmonary edema assessment: - Acute on chronic congestive heart failure exacerbation, from diastolic dysfunction EF 55-60%,-continue IV Lasix- 7 L in negative fluid balance. Improved. Swished over to by mouth Lasix -Acute COPD exacerbation in an ta-lzqlqx-obkjlrzqkucyaaf, IV steroids, better. Switch from IV steroids oral prednisone better. -Possible pneumonia suspected gram-negative organism-DC IV ceftriaxone. Changed to Vantin -Severe mitral regurgitation, moderate mitral stenosis, moderate tricuspid regurgitation -Secondary moderate pulmonary hypertension from COPD and CHF -Essential hypertension-continue beta amara. 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 went back into sinus rhythm. [facility] [place] Labs: BMP-12/23/2020 Plan - Discharge Summary Discharge Rx Participant: No New Discharge Prescriptions: New Cefuroxime Axetil [Ceftin] 500 mg PO BID #6 tab Losartan [Cozaar] 100 mg PO DAILY tab amLODIPine [Norvasc] 5 mg PO BID #0 tab predniSONE 0 mg PO DIRECTED #10 tab Sennosides-Docusate Sodium [Senokot-S] 1 tab PO DAILY #1 tablet Amiodarone [Cordarone] 400 mg PO BID #60 tab Continue Potassium Chloride ER [K-Dur 10] 10 meq PO DAILY Citalopram Hydrobromide [CeleXA] 20 mg PO DAILY Calcium Carbonate/Vitamin D3 [Calcium 600-Vit D3 800 Tab] 1 tab PO DAILY rOPINIRole HCL [Requip] 2 mg PO HS Levothyroxine Sodium [Synthroid] 112 mcg PO DAILY@0630 #30 tab Aspirin [[place] Aspirin EC] 81 mg PO DAILY Ferrous Sulfate [Feosol] 325 mg PO BID Furosemide [Lasix] 40 mg PO BID #60 tab Ascorbic Acid [Vitamin C] 500 mg PO DAILY Cholecalciferol [Vitamin D3 (25 Mcg = 1000 Iu)] 25 mcg PO DAILY Latanoprost Ophth [Xalatan 0.005%] 1 drop BOTH EYES HS Metoprolol Tartrate [Lopressor] 50 mg PO TID@0500,1300,2100 fentaNYL 50MCG/HR PATCH [Duragesic 50MCG/HR] 1 patch TRANSDERM Q72H #1 patch HYDROcodone/APAP 10-325MG [[place] 10-325] 1 tab PO Q6H PRN #12 tab PRN Reason: Pain traMADol HCl [Ultram] 50 mg PO Q6H PRN #12 tab PRN Reason: Moderate Pain Discontinued Docusate [Colace] 200 mg PO HS Discharge Medication List Citalopram Hydrobromide [CeleXA] 20 mg PO DAILY 11/30/16 [History] Potassium Chloride ER [K-Dur 10] 10 meq PO DAILY 11/30/16 [History] Calcium Carbonate/Vitamin D3 [Calcium 600-Vit D3 800 Tab] 1 tab PO DAILY [History] rOPINIRole HCL [Requip] 2 mg PO HS 11/02/17 [History] Levothyroxine Sodium [Synthroid] 112 mcg PO DAILY@0630 #30 tab 09/10/18 [Rx] Aspirin [[place] Aspirin EC] 81 mg PO DAILY 12/25/18 [History] Ferrous Sulfate [Feosol] 325 mg PO BID 12/25/18 [History] Furosemide [Lasix] 40 mg PO BID #60 tab 06/16/19 [Rx] Ascorbic Acid [Vitamin C] 500 mg PO DAILY 12/16/20 [History] Cholecalciferol [Vitamin D3 (25 Mcg = 1000 Iu)] 25 mcg PO DAILY 12/16/20 [History] Latanoprost Ophth [Xalatan 0.005%] 1 drop BOTH EYES HS 12/16/20 [History] Metoprolol Tartrate [Lopressor] 50 mg PO TID@0500,1300,2100 12/16/20 [History] Amiodarone [Cordarone] 400 mg PO BID #60 tab 12/22/20 [Rx] Cefuroxime Axetil [Ceftin] 500 mg PO BID #6 tab 12/22/20 [Rx] HYDROcodone/APAP 10-325MG [Bryant 10-325] 1 tab PO Q6H PRN #12 tab 12/22/20 [Rx] Losartan [Cozaar] 100 mg PO DAILY tab 12/22/20 [Rx] Sennosides-Docusate Sodium [Senokot-S] 1 tab PO DAILY #1 tablet 12/22/20 [Rx] amLODIPine [Norvasc] 5 mg PO BID #0 tab 12/22/20 [Rx] fentaNYL 50MCG/HR PATCH [Duragesic 50MCG/HR] 1 patch TRANSDERM Q72H #1 patch 12/22/20 [Rx] predniSONE 0 mg PO DIRECTED #10 tab 12/22/20 [Rx] traMADol HCl [Ultram] 50 mg PO Q6H PRN #12 tab 12/22/20 [Rx] Follow up Appointment(s)/Referral(s): [facility] [Provider Group] - 1 Week Delano Maya MD [Primary Care Provider] - As Needed Jeremy Davila DO [STAFF PHYSICIAN] - 1-2 Days
[2020-12-22 16:03] VITALS: BP 150/77
== END 2020-12-22 16:35 | DRG 291 ==
LOC: EC 08:44 → 3SCARD 11:45
PROVIDERS: ADMIT Hospitalist; ATTEND Hospitalist
PROC: 05HB33Z Insertion of Infusion Device into Right Basilic Vein, Percutaneous Approach (ICD-10-PCS; principal; 2020-12-22 09:00)
DX: I11.0 Hypertensive heart disease with heart failure (principal); J15.6 Pneumonia due to other Gram-negative bacteria; J96.21 Acute and chronic respiratory failure with hypoxia; N17.9 Acute kidney failure, unspecified; J44.1 Chronic obstructive pulmonary disease with (acute) exacerbation; J44.0 Chronic obstructive pulmonary disease with (acute) lower respiratory infection; D69.3 Immune thrombocytopenic purpura; I50.33 Acute on chronic diastolic (congestive) heart failure; E78.5 Hyperlipidemia, unspecified; I08.1 Rheumatic disorders of both mitral and tricuspid valves; N39.3 Stress incontinence (female) (male); R26.9 Unspecified abnormalities of gait and mobility; M19.91 Primary osteoarthritis, unspecified site; Z20.822 Contact with and (suspected) exposure to COVID-19; L71.9 Rosacea, unspecified; K57.90 Diverticulosis of intestine, part unspecified, without perforation or abscess without bleeding; K21.9 Gastro-esophageal reflux disease without esophagitis; I48.0 Paroxysmal atrial fibrillation; I44.7 Left bundle-branch block, unspecified; I27.29 Other secondary pulmonary hypertension; I16.0 Hypertensive urgency; E03.9 Hypothyroidism, unspecified; Z87.891 Personal history of nicotine dependence; Z86.73 Personal history of transient ischemic attack (TIA), and cerebral infarction without residual deficits; Z85.038 Personal history of other malignant neoplasm of large intestine; Z79.899 Other long term (current) drug therapy; Z79.890 Hormone replacement therapy; Z79.82 Long term (current) use of aspirin; Z88.5 Allergy status to narcotic agent; Z88.2 Allergy status to sulfonamides; Z88.8 Allergy status to other drugs, medicaments and biological substances; Z82.49 Family history of ischemic heart disease and other diseases of the circulatory system; Z98.890 Other specified postprocedural states; Z98.42 Cataract extraction status, left eye; Z98.41 Cataract extraction status, right eye; Z83.79 Family history of other diseases of the digestive system
CPT/HCPCS: 36410; 36415; 36600; 51702; 71045; 76937; 80048; 80053; 82805; 83036; 83605; 83735; 83880; 84145; 84484; 85025; 85027; 85610; 85730; 87040; 87635; 93005; 94640; 94660; 94760; 96374; 96375; 99291

== ENCOUNTER 2021-01-06 03:09 | Inpatient (IN) | payer MEDICARE ==
[2021-01-06] MEDS ORDERED: IPRATROPIUM-ALBUTEROL 3 ML NEB INHALATION STA (03:17)
[2021-01-06] MEDS ORDERED: ENALAPRILAT 1.25 MG/ML 1 ML VIAL IVP STA (03:19)
--- NOTE | 2021-01-06 03:19 | ED ---
SOB HPI - General Stated Complaint: SOB Time Seen by Provider: 01/06/21 03:10 Source: RN notes reviewed, old records reviewed Mode of arrival: EMS - History of Present Illness Initial Comments: This is a 5-year-old female for metal lodged patient presents today for evaluation of severe shortness of breath, patient has significant edema. Patient difficult catching breath here in the ER was hypoxic at metal lodged. Continue shortness of breath here in the ER. Denying any pain no chest pain no fevers recently. Increased cough and congestion. History obtained from patient's chart as EMS MD Complaint: shortness of breath, cough, anxiety -: hour(s) Severity: severe Severity scale (1-10): 9 Consistency: constant Improves With: nothing Worsens With: nothing Known History Of: COPD Context: recent URI Associated Symptoms: denies other symptoms Treatments Prior to Arrival: none - Related Data Home Medications Medication Instructions Recorded Confirmed Citalopram Hydrobromide [CeleXA] 20 mg PO DAILY 11/30/16 01/06/21 rOPINIRole HCL [Requip] 2 mg PO HS 11/02/17 01/06/21 Ferrous Sulfate [Feosol] 325 mg PO BID 12/25/18 01/06/21 Ascorbic Acid [Vitamin C] 500 mg PO DAILY 12/16/20 01/06/21 Cholecalciferol [Vitamin D3 (25 25 mcg PO DAILY 12/16/20 01/06/21 Mcg = 1000 Iu)] Latanoprost Ophth [Xalatan 0.005%] 1 drop BOTH EYES HS@199912/16/20 01/06/21 Metoprolol Tartrate [Lopressor] 50 mg PO TID@0500,1300,2100 12/16/20 01/06/21 Aspirin 81 mg PO DAILY 01/06/21 01/06/21 Levothyroxine Sodium [Synthroid] 112 mcg PO DAILY 01/06/21 01/06/21 Losartan Potassium 100 mg PO DAILY 01/06/21 01/06/21 fentaNYL 75MCG/HR PATCH [Duragesic 75 mcg TRANSDERM Q72H 01/06/21 01/06/21 75MCG/HR] Previous Rx's Medication Instructions Recorded Furosemide [Lasix] 40 mg PO BID #60 tab 06/16/19 HYDROcodone/APAP 10-325MG [[place] 1 tab PO Q6H PRN #12 tab 12/22/20 10-325] Sennosides-Docusate Sodium 1 tab PO DAILY #1 tablet 12/22/20 [Senokot-S] amLODIPine [Norvasc] 5 mg PO BID #0 tab 12/22/20 traMADol HCl [Ultram] 50 mg PO Q6H PRN #12 tab 12/22/20 Amiodarone [Cordarone] 200 mg PO DAILY tab 01/08/21 Allergies Allergy/AdvReac Type Severity Reaction Status Date / Time codeine AdvReac does not Verified 01/06/21 06:[address] it makes her feel sulfamethoxazole AdvReac does not Verified 01/06/21 06:42 [From Bactrim] like the way it makes her feel trimethoprim [From Bactrim] AdvReac does not Verified 01/06/21 06:[address] it makes her feel Review of Systems ROS Statement: Those systems with pertinent positive or pertinent negative responses have been documented in the HPI. ROS Other: All systems not noted in ROS Statement are negative. Past Medical History Past Medical History: Atrial Fibrillation, Asthma, Cancer, Heart Failure, COPD, CVA/TIA, Eye Disorder, GERD/Reflux, GI Bleed, Hyperlipidemia, Hypertension, Osteoarthritis (OA), Pneumonia, Renal Disease, Skin Disorder, Thyroid Disorder, Vascular Disorder Additional Past Medical History / Comment(s): Lower GI bleed with acute blood loss anemia, thrombocytopenia, gastritis/duodenitis, 2001 colon cancer with edwin mojgan/chemo and radiation, chronic hypoxic respiratory failure, home O2 at 2L/NC ATC, pulmonary HTN, pleurisy, chronic kidney disease stage III, CVA with slight speech difficulty, heart murmur, glaucoma bilaterally, hypothyroid, rosacia, UTIs, urine stress incontinence, constipation, diverticular disease, arthritis multiple joints, chronic low back pain, past fall with L hip fracture and R patellar fracture, rib fracture, L hmeral fracture with L shoulder pain, sinus problems, 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 Past Anesthesia/Blood Transfusion Reactions: No Reported Reaction Smoking Status: Former smoker - Past Family History Father Family Medical History: Liver Disease Additional Family Medical History / Comment(s): ETOH abuse - cirrhosis of the liver Mother Family Medical History: Vascular Disorder Additional Family Medical History / Comment(s): Brain aneurysm General Exam Limitations: physical limitation General appearance: alert, in no apparent distress, anxious, in distress Head exam: Present: atraumatic, normocephalic, normal inspection Eye exam: Present: normal appearance, PERRL, EOMI. Absent: scleral icterus, conjunctival injection, periorbital swelling ENT exam: Present: normal exam, mucous membranes moist Neck exam: Present: normal inspection. Absent: tenderness, meningismus, lymphadenopathy Respiratory exam: Present: respiratory distress, wheezes, rales, accessory muscle use, decreased breath sounds, prolonged expiratory. Absent: rhonchi, stridor Cardiovascular Exam: Present: regular rate, normal rhythm, normal heart sounds. Absent: systolic murmur, diastolic murmur, rubs, gallop, clicks GI/Abdominal exam: Present: soft, normal bowel sounds. Absent: distended, tenderness, guarding, rebound, rigid Extremities exam: Present: normal inspection, full ROM, normal capillary refill. Absent: tenderness, pedal edema, joint swelling, calf tenderness Back exam: Present: normal inspection Neurological exam: Present: alert, oriented X3, CN II-XII intact Psychiatric exam: Present: normal affect, normal mood Skin exam: Present: warm, dry, intact, normal color. Absent: rash Course Vital Signs 01/06/21 01/06/21 01/06/21 03:12 03:42 06:25 Temperature 98.7 F Pulse Rate 86 70 64 Pulse Rate [ Pulse Oximetery ] Respiratory 24 20 18 Rate Blood Pressure 176/73 137/60 111/60 Blood Pressure [Left Arm] O2 Sat by Pulse 93 L 100 98 Oximetry 01/06/21 01/06/21 01/06/21 07:54 08:35 09:31 Temperature 98.4 F 98.5 F Pulse Rate 64 62 Pulse Rate [ Pulse Oximetery ] Respiratory 18 18 Rate Blood Pressure 126/56 128/60 Blood Pressure [Left Arm] O2 Sat by Pulse 97 95 95 Oximetry 01/06/21 01/06/21 10:47 12:00 Temperature 98.4 F 97 F L Pulse Rate 62 64 Pulse Rate [ 67 Pulse Oximetery ] Respiratory 18 18 Rate Blood Pressure 135/59 124/59 Blood Pressure 134/64 [Left Arm] O2 Sat by Pulse 99 99 Oximetry - Reevaluation(s) Reevaluation #1: Medical record is reviewed Patient presents remains in severe distress here in the ER Patient informed of results, no improving here in the ER breathing situation Medical Decision Making - Medical Decision Making 85 female to the ER for severe shortness of breath, multifactorial respiratory failure. Patient will be admitted for supportive care - Lab Data Result diagrams: 01/08/21 08:20 01/08/21 08:20 Lab Results 01/06/21 01/06/21 01/06/21 Range/Units 03:42 03:42 03:42 WBC 15.2 H (3.8-10.6) k/uL RBC 2.94 L (3.80-5.40) m/uL Hgb 9.2 L (11.4-16.0) gm/dL Hct 28.3 L (34.0-46.0) % MCV 96.1 (80.0-100.0) fL MCH 31.3 (25.0-35.0) pg MCHC 32.6 (31.0-37.0) g/dL RDW 14.2 (11.5-15.5) % Plt Count 81 L (150-450) k/uL MPV 10.1 Neutrophils % 90 % Lymphocytes % 5 % Monocytes % 3 % Eosinophils % 1 % Basophils % 1 % Neutrophils # 13.7 H (1.3-7.7) k/uL Lymphocytes # 0.7 L (1.0-4.8) k/uL Monocytes # 0.5 (0-1.0) k/uL Eosinophils # 0.2 (0-0.7) k/uL Basophils # 0.1 (0-0.2) k/uL PT 10.7 (9.0-12.0) sec INR 1.0 (<1.2) APTT 22.0 (22.0-30.0) sec D-Dimer (<0.60) mg/L FEU Sodium 136 L (137-145) mmol/L Potassium 4.7 (3.5-5.1) mmol/L Chloride 102 (98-107) mmol/L Carbon Dioxide 24 (22-30) mmol/L Anion Gap 10 mmol/L BUN 66 H (7-17) mg/dL Creatinine 1.77 H (0.52-1.04) mg/dL Est GFR (CKD-EPI)AfAm 30 (>60 ml/min/1.73 sqM) Est GFR (CKD-EPI)NonAf 26 (>60 ml/min/1.73 sqM) Glucose 145 H (74-99) mg/dL Plasma Lactic Acid Onofre (0.7-2.0) mmol/L Calcium 8.9 (8.4-10.2) mg/dL Magnesium 2.6 H (1.6-2.3) mg/dL Total Bilirubin 1.0 (0.2-1.3) mg/dL AST 21 (14-36) U/L ALT 17 (4-34) U/L Alkaline Phosphatase 95 (38-126) U/L Creatine Kinase <20 L (30-135) U/L Troponin I (0.000-0.034) ng/mL Total Protein 6.9 (6.3-8.2) g/dL Albumin 3.9 (3.5-5.0) g/dL Procalcitonin (0.02-0.09) ng/mL 01/06/21 01/06/21 01/06/21 Range/Units 03:42 03:42 03:42 WBC (3.8-10.6) k/uL RBC (3.80-5.40) m/uL Hgb (11.4-16.0) gm/dL Hct (34.0-46.0) % MCV (80.0-100.0) fL MCH (25.0-35.0) pg MCHC (31.0-37.0) g/dL RDW (11.5-15.5) % Plt Count (150-450) k/uL MPV Neutrophils % % Lymphocytes % % Monocytes % % Eosinophils % % Basophils % % Neutrophils # (1.3-7.7) k/uL Lymphocytes # (1.0-4.8) k/uL Monocytes # (0-1.0) k/uL Eosinophils # (0-0.7) k/uL Basophils # (0-0.2) k/uL PT (9.0-12.0) sec INR (<1.2) APTT (22.0-30.0) sec D-Dimer 1.35 H (<0.60) mg/L FEU Sodium (137-145) mmol/L Potassium (3.5-5.1) mmol/L Chloride (98-107) mmol/L Carbon Dioxide (22-30) mmol/L Anion Gap mmol/L BUN (7-17) mg/dL Creatinine (0.52-1.04) mg/dL Est GFR (CKD-EPI)AfAm (>60 ml/min/1.73 sqM) Est GFR (CKD-EPI)NonAf (>60 ml/min/1.73 sqM) Glucose (74-99) mg/dL Plasma Lactic Acid Onofre 1.1 (0.7-2.0) mmol/L Calcium (8.4-10.2) mg/dL Magnesium (1.6-2.3) mg/dL Total Bilirubin (0.2-1.3) mg/dL AST (14-36) U/L ALT (4-34) U/L Alkaline Phosphatase (38-126) U/L Creatine Kinase (30-135) U/L Troponin I <0.012 (0.000-0.034) ng/mL Total Protein (6.3-8.2) g/dL Albumin (3.5-5.0) g/dL Procalcitonin (0.02-0.09) ng/mL 01/06/21 Range/Units 03:42 WBC (3.8-10.6) k/uL RBC (3.80-5.40) m/uL Hgb (11.4-16.0) gm/dL Hct (34.0-46.0) % MCV (80.0-100.0) fL MCH (25.0-35.0) pg MCHC (31.0-37.0) g/dL RDW (11.5-15.5) % Plt Count (150-450) k/uL MPV Neutrophils % % Lymphocytes % % Monocytes % % Eosinophils % % Basophils % % Neutrophils # (1.3-7.7) k/uL Lymphocytes # (1.0-4.8) k/uL Monocytes # (0-1.0) k/uL Eosinophils # (0-0.7) k/uL Basophils # (0-0.2) k/uL PT (9.0-12.0) sec INR (<1.2) APTT (22.0-30.0) sec D-Dimer (<0.60) mg/L FEU Sodium (137-145) mmol/L Potassium (3.5-5.1) mmol/L Chloride (98-107) mmol/L Carbon Dioxide (22-30) mmol/L Anion Gap mmol/L BUN (7-17) mg/dL Creatinine (0.52-1.04) mg/dL Est GFR (CKD-EPI)AfAm (>60 ml/min/1.73 sqM) Est GFR (CKD-EPI)NonAf (>60 ml/min/1.73 sqM) Glucose (74-99) mg/dL Plasma Lactic Acid Onofre (0.7-2.0) mmol/L Calcium (8.4-10.2) mg/dL Magnesium (1.6-2.3) mg/dL Total Bilirubin (0.2-1.3) mg/dL AST (14-36) U/L ALT (4-34) U/L Alkaline Phosphatase (38-126) U/L Creatine Kinase (30-135) U/L Troponin I (0.000-0.034) ng/mL Total Protein (6.3-8.2) g/dL Albumin (3.5-5.0) g/dL Procalcitonin 0.13 H (0.02-0.09) ng/mL - EKG Data -: EKG Interpreted by Me (EKG is sinus rhythm 78 [place] 164 QRS 156 QTC 513) - Radiology Data Radiology results: report reviewed (Chest x-ray shows significant pulmonary edema), image reviewed Critical Care Time Critical Care Time: Yes Total Critical Care Time: 31 Disposition Clinical Impression: COPD exacerbation, SOB (shortness of breath), Adult respiratory distress syndrome, COPD (chronic obstructive pulmonary disease), CHF (congestive heart failure), Acute pulmonary edema, Acute respiratory failure, Hypoxia Disposition: ADMITTED IP TO THIS [facility] Condition: Fair Is patient prescribed a controlled substance at d/c from ED?: No
[2021-01-06 03:51] LABS: Basophils # (A) 0.1 k/uL (0-0.2); Basophils % (A) 1 %; Eosinophils # (A) 0.2 k/uL (0-0.7); Eosinophils % (A) 1 %; HCT 28.3 % (34.0-46.0); HGB 9.2 gm/dL (11.4-16.0); Lymphocytes # (A) 0.7 k/uL (1.0-4.8); Lymphocytes % (A) 5 %; MCH 31.3 pg (25.0-35.0); MCHC 32.6 g/dL (31.0-37.0); MCV 96.1 fL (80.0-100.0); Mean Platelet Volume 10.1; Monocytes # (A) 0.5 k/uL (0-1.0); Monocytes % (A) 3 %; Neutrophils # (A) 13.7 k/uL (1.3-7.7); Neutrophils % (A) 90 %; Platelet Count 81 k/uL (150-450); RBC 2.94 m/uL (3.80-5.40); RDW 14.2 % (11.5-15.5); WBC 15.2 k/uL (3.8-10.6)
[2021-01-06 04:00] LABS: ALT 17 U/L (4-34); AST 21 U/L (14-36); African American GFR (CKD) 30 (>60 ml/min/1.73 sqM); Albumin 3.9 g/dL (3.5-5.0); Alkaline Phosphatase 95 U/L (38-126); Anion Gap 10 mmol/L; Blood Urea Nitrogen 66 mg/dL (7-17); Calcium 8.9 mg/dL (8.4-10.2); Carbon Dioxide 24 mmol/L (22-30); Chloride 102 mmol/L (98-107); Creatine Kinase <20 U/L (30-135); Glucose 145 mg/dL (74-99); Magnesium 2.6 mg/dL (1.6-2.3); Non-African American GFR(CKD) 26 (>60 ml/min/1.73 sqM); Potassium 4.7 mmol/L (3.5-5.1); Sodium 136 mmol/L (137-145); Total Protein 6.9 g/dL (6.3-8.2)
--- NOTE | 2021-01-06 04:08 | XR ---
EXAM: XR Chest, 1 View CLINICAL HISTORY: ITS.REASON XR Reason: sob TECHNIQUE: Frontal view of the chest. COMPARISON: Chest x-ray dated 12/20/2020 FINDINGS: Lungs: Diffuse airspace opacities which may represent pulmonary vascular congestion versus an infectious process. Pleural space: Unremarkable. Heart: Heart is prominent. Mediastinum: Unremarkable. Bones/joints: Degenerative changes of the spine. IMPRESSION: Diffuse airspace opacities which may represent pulmonary vascular congestion versus an infectious process.
[2021-01-06 04:21] LABS: Prothrombin Time 10.7 sec (9.0-12.0)
[2021-01-06] MEDS ORDERED: FUROSEMIDE 10 MG/ML 4 ML VIAL IV SCH (05:00)
[2021-01-06] MEDS ORDERED: traMADol 50 MG TAB PO PRN (08:02)
[2021-01-06] MEDS ORDERED: HYDROcodone/APAP 10-325MG 1 EACH TAB PO PRN (08:02)
--- NOTE | 2021-01-06 08:41 | P.HPIM ---
History of Present Illness This is a very pleasant 85-year-old patient of Dr. Maya. Currently at [facility]. Chronic stable medical conditions include COPD, paroxysmal atrial fibrillation, hypertension, hyperlipidemia, GERD, osteoarthrit is, secondary pulmonary hypertension, hypothyroid, rosacea, osteoarthritis, urine stress incontinence,CHF from diastolic dysfunction EF 55-60%, severe mitral regurgitation, moderate mitral stenosis, moderate tricuspid regurgitation, secondary pulmonary hypertension. Diverticulosis. at her baseline uses a cane and a walker. She is coming in from intermediate for dyspnea of one-day duration with no coughing and occasional phlegm but not currently. And bilateral leg swelling She is short of breath that she has difficulty finishing her symptoms but when she is lying in bed she is only mildly tachypneic. She had use a BiPAP last night No abdominal pain or nausea vomiting or diarrhea. She has some increased frequency of urination which could be due to Lasix before going to check urinalysis. She used to smoke for 19 years, she could not remember how much she smoked but she quit about 50 years ago and she denies alcohol or illicit drugs she does not follow up with acting section chief as an outpatient Nereida looks stable, uses BiPAP at night, currently she is saturating 97% on 5 L oxygen via nasal cannula. Labs showed leukocytosis of 15.2 K but also she was recently on steroids. Hemoglobin 9.2 and platelet is 80 1K which is chronic. INR is 1.0, showing sodium 136, creatinine 1.7. Liver enzymes not elevated. Lactic acid 1.1. Troponin 2 are negative less than 0.012. Coronavirus not detected. EKG showing normal sinus rhythm at 78 with left bundle-branch block and QTC of 513 Chest x-ray: Diffuse airspace opacity which may represent pulmonary vascular congestion versus an infectious process An emergency room she was started on Lasix 40 mg IV every 8 hours with a metrology engineer consulted Review of Systems CONSTITUTIONAL: No fever, no malaise, no fatigue. HEENT: No recent visual problems or hearing problems. Denied any sore throat. CARDIOVASCULAR: No orthopnea, PND, no palpitations, no syncope. PULMONARY: no cough, no hemoptysis. GASTROINTESTINAL: No diarrhea, no nausea, no vomiting, no abdominal pain. Normoactive bowel sounds. NEUROLOGICAL: No headaches, no weakness, no numbness. HEMATOLOGICAL: Denies any bleeding or petechiae. GENITOURINARY: Denies any burning micturition, frequency, or urgency. MUSCULOSKELETAL/RHEUMATOLOGICAL: Denies any joint pain, swelling, or any muscle pain. ENDOCRINE: Denies any polyuria or polydipsia. Past Medical History Past Medical History: Atrial Fibrillation, Asthma, Cancer, Heart Failure, COPD, CVA/TIA, Eye Disorder, GERD/Reflux, GI Bleed, Hyperlipidemia, Hypertension, Osteoarthritis (OA), Pneumonia, Renal Disease, Skin Disorder, Thyroid Disorder, Vascular Disorder Additional Past Medical History / Comment(s): Lower GI bleed with acute blood loss anemia, thrombocytopenia, gastritis/duodenitis, 2001 colon cancer with oneill rgery/chemo and radiation, chronic hypoxic respiratory failure, home O2 at 2L/NC ATC, pulmonary HTN, pleurisy, chronic kidney disease stage III, CVA with slight speech difficulty, heart murmur, glaucoma bilaterally, hypothyroid, rosacia, UTIs, urine stress incontinence, constipation, diverticular disease, arthritis multiple joints, chronic low back pain, past fall with L hip fracture and R patellar fracture, rib fracture, L hmeral fracture with L shoulder pain, sinus problems, 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 Past Anesthesia/Blood Transfusion Reactions: No Reported Reaction Smoking Status: Former smoker - Past Family History Father Family Medical History: Liver Disease Additional Family Medical History / Comment(s): ETOH abuse - cirrhosis of the liver Mother Family Medical History: Vascular Disorder Additional Family Medical History / Comment(s): Brain aneurysm Medications and Allergies Home Medications Medication Instructions Recorded Confirmed Type Citalopram Hydrobromide [CeleXA] 20 mg PO DAILY 11/30/16 01/06/21 History rOPINIRole HCL [Requip] 2 mg PO HS 11/02/17 01/06/21 History Ferrous Sulfate [Feosol] 325 mg PO BID 12/25/18 01/06/21 History Furosemide [Lasix] 40 mg PO BID #60 tab 06/16/19 01/06/21 Rx Ascorbic Acid [Vitamin C] 500 mg PO DAILY 12/16/20 01/06/21 History Cholecalciferol [Vitamin D3 (25 25 mcg PO DAILY 12/16/20 01/06/21 History Mcg = 1000 Iu)] Latanoprost Ophth [Xalatan 0.005%] 1 drop BOTH EYES HS@2000 12/16/20 01/06/21 History Metoprolol Tartrate [Lopressor] 50 mg PO TID@0500,1300,2100 12/16/20 01/06/21 History HYDROcodone/APAP 10-325MG [[place] 1 tab PO Q6H PRN #12 tab 12/22/20 01/06/21 Rx 10-325] Sennosides-Docusate Sodium 1 tab PO DAILY #1 tablet 12/22/20 01/06/21 Rx [Senokot-S] amLODIPine [Norvasc] 5 mg PO BID #0 tab 12/22/20 01/06/21 Rx traMADol HCl [Ultram] 50 mg PO Q6H PRN #12 tab 12/22/20 01/06/21 Rx Amiodarone [Cordarone] 200 mg PO BID 01/06/21 01/06/21 History Aspirin 81 mg PO DAILY 01/06/21 01/06/21 History Levothyroxine Sodium [Synthroid] 112 mcg PO DAILY 01/06/21 01/06/21 History Losartan Potassium 100 mg PO DAILY 01/06/21 01/06/21 History fentaNYL 75MCG/HR PATCH [Duragesic 75 mcg TRANSDERM Q72H 01/06/21 01/06/21 History 75MCG/HR] Allergies Allergy/AdvReac Type Severity Reaction Status Date / Time codeine AdvReac does not Verified 01/06/21 06:[address] it makes her feel sulfamethoxazole AdvReac does not Verified 01/06/21 06:42 [From Bactrim] like the way it makes her feel trimethoprim [From Bactrim] AdvReac does not Verified 01/06/21 06:[address] it makes her feel Physical Exam Vitals: Vital Signs Temp Pulse Resp BP Pulse Ox 01/06/21 06:25 64 18 111/60 98 01/06/21 03:42 70 20 137/60 100 01/06/21 03:12 98.7 F 86 24 176/73 93 L Intake and Output 01/05/21 01/06/21 01/06/21 22:59 06:59 14:59 Other: Weight 81.647 kg GENERAL: The patient is alert and oriented x3, not in any acute distress. Well developed, well nourished. HEENT: Pupils are round and equally reacting to light. EOMI. No scleral icterus. No conjunctival pallor. Normocephalic, atraumatic. No pharyngeal erythema. No thyromegaly. CARDIOVASCULAR: S1 and S2 present. No murmurs, rubs, or gallops. -PULMONARY: Chest is clear to auscultation, no wheezing . Decreased air entry and bilateral basal patient ABDOMEN: Soft, nontender, nondistended, normoactive bowel sounds. No palpable organomegaly. MUSCULOSKELETAL: No joint swelling or deformity. -EXTREMITIES: No cyanosis, clubbing,. Bilateral pitting leg edema NEUROLOGICAL: Gross neurological examination did not reveal any focal deficits. SKIN: No rashes. No petechiae Results CBC & Chem 7: 01/06/21 03:42 01/06/21 03:42 Labs: Abnormal Lab Results - Last 24 Hours (Table) 01/06/21 01/06/21 Range/Units 03:42 03:42 WBC 15.2 H (3.8-10.6) k/uL RBC 2.94 L (3.80-5.40) m/uL Hgb 9.2 L (11.4-16.0) gm/dL Hct 28.3 L (34.0-46.0) % Plt Count 81 L (150-450) k/uL Neutrophils # 13.7 H (1.3-7.7) k/uL Lymphocytes # 0.7 L (1.0-4.8) k/uL Sodium 136 L (137-145) mmol/L BUN 66 H (7-17) mg/dL Creatinine 1.77 H (0.52-1.04) mg/dL Glucose 145 H (74-99) mg/dL Magnesium 2.6 H (1.6-2.3) mg/dL Creatine Kinase <20 L (30-135) U/L Assessment and Plan Assessment: - Acute on chronic congestive heart failure exacerbation, from diastolic dysfunction EF 55-60%,-continue IV Lasix -Acute COPD exacerbation in an [id number], recently treated with IV steroid we will order IV steroids again -Possible pneumonia suspected gram-negative was recently discharged on Vantin. Check Procalcitonin -Severe mitral regurgitation, moderate mitral stenosis, moderate tricuspid regurgitation -Secondary moderate pulmonary hypertension from COPD and CHF -Essential hypertension-continue beta amara. 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 went back into sinus rhythm. Plan: This is a pleasant 85 years old female who presents with acute diastolic CHF, HUGO and possible COPD, patient symptoms looks related to the heart more than the lung. continue with IV Lasix, continue with prednisone to check pro- calcitonin. Follow-up creatinine and electrolytes. Urine analysis. Director Regulatory Affairs: On the case we'll order echocardiogram. D-dimer. also will consult pulmonary surface Labs and medication were reviewed.. Continue same treatment. Continue with symptomatic treatment. Resume home medication. Monitor lytes and vitals. DVT and GI prophylaxis. Further recommendations depends on the clinical course of the patient DVT prophylaxis: Subcutaneous heparin GI Prophylaxis: Pepcid Prognosis is guarded
[2021-01-06] MEDS ORDERED: AMIODARONE 200 MG TAB PO SCH (09:00)
[2021-01-06] MEDS ORDERED: amLODIPine 5 MG TAB PO SCH (09:00)
[2021-01-06] MEDS ORDERED: FUROSEMIDE 20 MG TAB PO SCH (09:00)
[2021-01-06] MEDS ORDERED: LOSARTAN 50 MG TAB PO SCH (09:00)
[2021-01-06] MEDS: FUROSEMIDE 40 MG TAB PO SCH (09:32)
[2021-01-06] MEDS: FAMOTIDINE 20 MG/2 ML VIAL IV SCH ×2 (09:33→20:37)
[2021-01-06] MEDS: LOSARTAN 50 MG TAB PO SCH (09:33)
[2021-01-06] MEDS: amLODIPine 5 MG TAB PO SCH (09:33)
[2021-01-06] MEDS: FERROUS SULFATE 325 MG TAB PO SCH ×2 (09:33→20:36)
[2021-01-06] MEDS: CHOLECALCIFEROL 25 MCG (1000 IU) TABLET PO SCH (09:33)
[2021-01-06] MEDS: methylPREDNISolone SOD SUCCI 40 MG/ML 1 ML VIAL IV SCH ×3 (09:33→23:14)
[2021-01-06] MEDS: SENNOSIDES-DOCUSATE SODIUM 1 EACH TAB PO SCH (09:34)
[2021-01-06] MEDS: HEPARIN SODIUM,PORCINE 5,000 UNIT/ML 1 ML VIAL SQ SCH ×2 (09:34→20:37)
[2021-01-06] MEDS: LEVOTHYROXINE 112 MCG TAB PO SCH (09:45)
[2021-01-06] MEDS: ASPIRIN 81 MG PO SCH (09:46)
[2021-01-06] MEDS: CITALOPRAM HYDROBROMIDE 20 MG TAB PO SCH (09:46)
--- NOTE | 2021-01-06 10:28 | P.CRDCN ---
History of Present Illness History of present illness: HISTORY OF PRESENTING ILLNESS This is a pleasant 85-year-old female past medical history significant for paroxysmal atrial fibrillation not on long-term anticoagulation secondary to GI bleeding, left bundle branch block, hypertension, chronic diastolic heart failure, dyslipidemia, chronic kidney disease, CVA and history of colon cancer status post surgery and chemotherapy. She previously followed in the office with Dr. Leslie. We have been asked to see in consultation for heart failure. She was sent to the hospital from [facility] secondary to an acute onset of shortness of breath that woke her up from sleep last night. She denies associated chest pain, dizziness or palpitations. On arrival to the emergency department she was initiated on IV diuretics. She is seen and examined sitting up on the stretcher in no acute distress. She continues to feel short of breath. She denies cough, fever or chills. EKG reveals sinus mechanism heart rate of 78 with left axis deviation and left bundle branch block. Chest x-ray reveals diffuse airspace opacity, consistent with chest x-ray performed earlier this month. She was here earlier in December and diagnosed with pneumonia. Adjustments were also made at that time to her blood pressure regimen. Laboratory data reviewed, WBC 15.2, hemoglobin 9.2, platelets 81, d-dimer 1.35, sodium 136, potassium 4.7, creatinine 1.77, magnesium 2.6, troponin negative 2. Current daily cardiac medications include amiodarone 200 mg twice a day, aspirin 81 mg daily, Lasix 40 mg twice a day, losartan 100 mg daily, Lopressor 50 mg 3 times a day, amlodipine 5 mg twice a day. Most recent echocardiogram obtained 2019 reveals preserved LV systolic function with ejection fraction 55-60%, mild aortic stenosis, moderate mitral annular calcification and severe mitral regurgitation, moderate tricuspid regurgitation and moderate pulmonary hypertension with an RVSP of 54 mmHg. REVIEW OF SYSTEMS At the time of my exam: CONSTITUTIONAL: Denies fever or chills. CARDIOVASCULAR: Complains of shortness of breath. Denies chest pain, shortness of breath, orthopnea, PND or palpitations. RESPIRATORY: Denies cough. GASTROINTESTINAL: Denies abdominal pain, diarrhea, constipation, nausea or vomiting. MUSCULOSKELETAL: Denies myalgias. NEUROLOGIC: Denies numbness, tingling, headacbe or weakness. ENDOCRINE: Denies fatigue, weight change, polydipsia or polyurina. GENITOURINARY: Denies burning, hematuria or urgency with micturation. HEMATOLOGIC: Denies history of anemia or bleeding. PHYSICAL EXAMINATION Blood pressure 128/60 heart rate 62 afebrile and maintaining oxygen saturation on nasal cannula. CONSTITUTIONAL: No apparent distress. HEENT: Head is normocephalic. Pupils are equal, round. Sclerae anicteric. Mucous membranes of the mouth are moist. No JVD. No carotid bruit. CHEST EXAMINATION: Scattered rhonchi, expiratory wheezes. No chest wall tenderness is noted on palpation or with deep breathing. HEART EXAMINATION: Regular rate and rhythm. S1, S2 heard. Systolic ejection murmur at the base, no gallops or rub. ABDOMEN: Soft, nontender. Positive bowel sounds. EXTREMITIES: 1+ peripheral pulses, trace edema on the left, mild pitting edema on the right lower extremity and no calf tenderness. NEUROLOGIC EXAMINATION: Patient is awake, alert and oriented x3. ASSESSMENT Shortness of breath, clinically she does not appear in heart failure. Likely related to underlying COPD and possible infectious process. Leukocytosis Acute kidney injury Dehydration Paroxysmal atrial fibrillation not on technician terminal and repeater anticoagulation secondary to GI bleeding. Currently maintaining sinus mechanism. Amiodarone was initiated on previous admission secondary to episodes of A. fib with RVR. Valvular heart disease, mitral regurgitation and tricuspid regurgitation Pulmonary hypertension, moderate Hypertension Dyslipidemia PLAN Check NTproBNP. Change diuretics to 40 mg PO daily. Decrease losartan to 50 mg daily. Decrease amiodarone to 200 mg daily. Continue lopressor 50 mg BID. Clinically she does not appear to be in fluid overload. Consider pulmonary etiologies for shortness of breath other than heart failure. Obtain 2D echocardiogram and doppler study to assess cardiac structure and function. Thank you kindly for this consultation. Nurse Practitioner note has been reviewed, I agree with a documented findings and plan of care. Patient was seen and examined. Past Medical History Past Medical History: Atrial Fibrillation, Asthma, Cancer, Heart Failure, COPD, CVA/TIA, Eye Disorder, GERD/Reflux, GI Bleed, Hyperlipidemia, Hypertension, Osteoarthritis (OA), Pneumonia, Renal Disease, Skin Disorder, Thyroid Disorder, Vascular Disorder Additional Past Medical History / Comment(s): Lower GI bleed with acute blood loss anemia, thrombocytopenia, gastritis/duodenitis, 2002 colon cancer with surgery/chemo and radiation, chronic hypoxic respiratory failure, home O2 at 2L/NC ATC, pulmonary HTN, pleurisy, chronic kidney disease stage III, CVA with slight speech difficulty, heart murmur, glaucoma bilaterally, hypothyroid, rosacia, UTIs, urine stress incontinence, constipation, diverticular disease, arthritis multiple joints, chronic low back pain, past fall with L hip fracture and R patellar fracture, rib fracture, L hmeral fracture with L shoulder pain, sinus problems, 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 Past Anesthesia/Blood Transfusion Reactions: No Reported Reaction Smoking Status: Former smoker - Past Family History Father Family Medical History: Liver Disease Additional Family Medical History / Comment(s): ETOH abuse - cirrhosis of the liver Mother Family Medical History: Vascular Disorder Additional Family Medical History / Comment(s): Brain aneurysm Medications and Allergies Home Medications Medication Instructions Recorded Confirmed Type Citalopram Hydrobromide [CeleXA] 20 mg PO DAILY 11/30/16 01/06/21 History rOPINIRole HCL [Requip] 2 mg PO HS 11/02/17 01/06/21 History Ferrous Sulfate [Feosol] 325 mg PO BID 12/25/18 01/06/21 History Furosemide [Lasix] 40 mg PO BID #60 tab 06/16/19 01/06/21 Rx Ascorbic Acid [Vitamin C] 500 mg PO DAILY 12/16/20 01/06/21 History Cholecalciferol [Vitamin D3 (25 25 mcg PO DAILY 12/16/20 01/06/21 History Mcg = 1000 Iu)] Latanoprost Ophth [Xalatan 0.005%] 1 drop BOTH EYES HS@199912/16/20 01/06/21 History Metoprolol Tartrate [Lopressor] 50 mg PO TID@0500,1300,2100 12/16/20 01/06/21 History HYDROcodone/APAP 10-325MG [[place] 1 tab PO Q6H PRN #12 tab 12/22/20 01/06/21 Rx 10-325] Sennosides-Docusate Sodium 1 tab PO DAILY #1 tablet 12/22/20 01/06/21 Rx [Senokot-S] amLODIPine [Norvasc] 5 mg PO BID #0 tab 12/22/20 01/06/21 Rx traMADol HCl [Ultram] 50 mg PO Q6H PRN #12 tab 12/22/20 01/06/21 Rx Amiodarone [Cordarone] 200 mg PO BID 01/06/21 01/06/21 History Aspirin 81 mg PO DAILY 01/06/21 01/06/21 History Levothyroxine Sodium [Synthroid] 112 mcg PO DAILY 01/06/21 01/06/21 History Losartan Potassium 100 mg PO DAILY 01/06/21 01/06/21 History fentaNYL 75MCG/HR PATCH [Duragesic 75 mcg TRANSDERM Q72H 01/06/21 01/06/21 History 75MCG/HR] Allergies Allergy/AdvReac Type Severity Reaction Status Date / Time codeine AdvReac does not Verified 01/06/21 06:[address] it makes her feel sulfamethoxazole AdvReac does not Verified 01/06/21 06:42 [From Bactrim] like the way it makes her feel trimethoprim [From Bactrim] AdvReac does not Verified 01/06/21 06:[address] it makes her feel Physical Exam Vitals: Vital Signs Temp Pulse Resp BP Pulse Ox 01/06/21 06:25 64 18 111/60 98 01/06/21 03:42 70 20 137/60 100 01/06/21 03:12 98.7 F 86 24 176/73 93 L Intake and Output 01/05/21 01/06/21 01/06/21 22:59 06:59 14:59 Other: Weight 81.647 kg Results 01/06/21 03:42 01/06/21 03:42 Cardiac Enzymes 01/06/21 01/06/21 01/06/21 Range/Units 03:42 03:42 05:56 AST 21 (14-36) U/L Troponin I <0.012 <0.012 (0.000-0.034) ng/mL Coagulation 01/06/21 Range/Units 03:42 PT 10.7 (9.0-12.0) sec APTT 22.0 (22.0-30.0) sec CBC 01/06/21 Range/Units 03:42 WBC 15.2 H (3.8-10.6) k/uL RBC 2.94 L (3.80-5.40) m/uL Hgb 9.2 L (11.4-16.0) gm/dL Hct 28.3 L (34.0-46.0) % Plt Count 81 L (150-450) k/uL Comprehensive Metabolic Panel 01/06/21 Range/Units 03:42 Sodium 136 L (137-145) mmol/L Potassium 4.7 (3.5-5.1) mmol/L Chloride 102 (98-107) mmol/L Carbon Dioxide 24 (22-30) mmol/L BUN 66 H (7-17) mg/dL Creatinine 1.77 H (0.52-1.04) mg/dL Glucose 145 H (74-99) mg/dL Calcium 8.9 (8.4-10.2) mg/dL AST 21 (14-36) U/L ALT 17 (4-34) U/L Alkaline Phosphatase 95 (38-126) U/L Total Protein 6.9 (6.3-8.2) g/dL Albumin 3.9 (3.5-5.0) g/dL Current Medications Generic Name Dose Route Start Last Admin Trade Name Freq PRN Reason Stop Dose Admin Albuterol/Ipratropium 3 ml 01/06/21 04:58 Ipratropium-Albuterol 3 Ml Neb INHALATION RT-Q4H PRN Shortness Of Breath Furosemide 40 mg 01/06/21 05:00 01/06/21 06:47 Furosemide 10 Mg/Ml 4 Ml Vial IV 40 mg Q8H ANGELA Administration Metoprolol Tartrate 50 mg 01/06/21 13:00 Metoprolol Tartrate 50 Mg Tab PO TID@0500,1300,2100 ANGELA Non-Formulary Medication 100 mg 01/06/21 09:00 Losartan Potassium [Losartan Potassium] PO DAILY ANGELA Intake and Output 01/05/21 01/06/21 01/06/21 22:59 06:59 14:59 Other: Weight 81.647 kg 01/06/21 03:42 01/06/21 03:42
[2021-01-06 11:38] LABS: Appearance,Urine Clear (Clear); Bilirubin,Urine Negative (Negative); Blood,Urine Negative (Negative); Color,Urine Light Yellow; Glucose,Urine (UA) Negative (Negative); Ketones,Urine Negative (Negative); Leukocyte Esterase,Urine Negative (Negative); Nitrite,Urine Negative (Negative); Protein,Urine Negative (Negative); Specific Gravity,Urine 1.008 (1.001-1.035); Urobilinogen,Urine <2.0 mg/dL (<2.0)
[2021-01-06 15:06] VITALS: BMI 30.9
--- NOTE | 2021-01-06 15:43 | P.CNPUL ---
History of Present Illness Consult date: 01/06/21 Reason for consult: dyspnea Chief complaint: Shortness of breath History of present illness: This is a 85-year-old female who came into emergency department with the shortness of breath and dry nonproductive cough, she sees her Dr. Maya resident of [facility] at [employer] primary medical history signifi cant for COPD proximal atrial fibrillation hypertension hypertensive cardiovascular disease and secondary pulmonary hypertension, she started having some shortness of breath of one day duration came into the hospital, does have history of the obstructive sleep apnea usually use BiPAP machine each night. Denies any abdominal pain or nausea vomiting or diarrhea. She has some increased frequency of urination which could be due to Lasix before going to check urinalysis. She used to smoke for 19 years, she could not remember how much she smoked but she quit about 50 years ago and she denies alcohol or illicit drugs Chest x-ray: Diffuse airspace opacity which may represent pulmonary vascular con gestion versus an infectious process Review of Systems All systems: negative Past Medical History Past Medical History: Atrial Fibrillation, Asthma, Cancer, Heart Failure, COPD, CVA/TIA, Eye Disorder, GERD/Reflux, GI Bleed, Hyperlipidemia, Hypertension, Osteoarthritis (OA), Pneumonia, Renal Disease, Skin Disorder, Thyroid Disorder, Vascular Disorder Additional Past Medical History / Comment(s): Lower GI bleed with acute blood loss anemia, thrombocytopenia, gastritis/duodenitis, 2002 colon cancer with surgery/chemo and radiation, chronic hypoxic respiratory failure, home O2 at 2L/NC ATC, pulmonary HTN, pleurisy, chronic kidney disease stage III, CVA with slight speech difficulty, heart murmur, glaucoma bilaterally, hypothyroid, rosacia, UTIs, urine stress incontinence, constipation, diverticular disease, arthritis multiple joints, chronic low back pain, past fall with L hip fracture and R patellar fracture, rib fracture, L hmeral fracture with L shoulder pain, sinus problems, 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 Past Anesthesia/Blood Transfusion Reactions: No Reported Reaction Smoking Status: Former smoker - Past Family History Father Family Medical History: Liver Disease Additional Family Medical History / Comment(s): ETOH abuse - cirrhosis of the li toby Mother Family Medical History: Vascular Disorder Additional Family Medical History / Comment(s): Brain aneurysm Medications and Allergies Home Medications Medication Instructions Recorded Confirmed Type Citalopram Hydrobromide [CeleXA] 20 mg PO DAILY 11/30/16 01/06/21 History rOPINIRole HCL [Requip] 2 mg PO HS 11/02/17 01/06/21 History Ferrous Sulfate [Feosol] 325 mg PO BID 12/25/18 01/06/21 History Furosemide [Lasix] 40 mg PO BID #60 tab 06/16/19 01/06/21 Rx Ascorbic Acid [Vitamin C] 500 mg PO DAILY 12/16/20 01/06/21 History Cholecalciferol [Vitamin D3 (25 25 mcg PO DAILY 12/16/20 01/06/21 History Mcg = 1000 Iu)] Latanoprost Ophth [Xalatan 0.005%] 1 drop BOTH EYES HS@199912/16/20 01/06/21 History Metoprolol Tartrate [Lopressor] 50 mg PO TID@0500,1300,2100 12/16/20 01/06/21 History HYDROcodone/APAP 10-325MG [[place] 1 tab PO Q6H PRN #12 tab 12/22/20 01/06/21 Rx 10-325] Sennosides-Docusate Sodium 1 tab PO DAILY #1 tablet 12/22/20 01/06/21 Rx [Senokot-S] amLODIPine [Norvasc] 5 mg PO BID #0 tab 12/22/20 01/06/21 Rx traMADol HCl [Ultram] 50 mg PO Q6H PRN #12 tab 12/22/20 01/06/21 Rx Amiodarone [Cordarone] 200 mg PO BID 01/06/21 01/06/21 History Aspirin 81 mg PO DAILY 01/06/21 01/06/21 History Levothyroxine Sodium [Synthroid] 112 mcg PO DAILY 01/06/21 01/06/21 History Losartan Potassium 100 mg PO DAILY 01/06/21 01/06/21 History fentaNYL 75MCG/HR PATCH [Duragesic 75 mcg TRANSDERM Q72H 01/06/21 01/06/21 History 75MCG/HR] Allergies Allergy/AdvReac Type Severity Reaction Status Date / Time codeine AdvReac does not Verified 01/06/21 06:[address] it makes her feel sulfamethoxazole AdvReac does not Verified 01/06/21 06:42 [From Bactrim] like the way it makes her feel trimethoprim [From Bactrim] AdvReac does not Verified 01/06/21 06:[address] it makes her feel Physical Exam Vitals: Vital Signs Temp Pulse Resp BP Pulse Ox 01/06/21 12:00 98.4 F 64 18 124/59 99 01/06/21 10:47 98.4 F 62 18 135/59 99 01/06/21 09:31 98.5 F 62 18 128/60 95 01/06/21 08:35 95 01/06/21 07:54 98.4 F 64 18 126/56 97 01/06/21 06:25 64 18 111/60 98 01/06/21 03:42 70 20 137/60 100 01/06/21 03:12 98.7 F 86 24 176/73 93 L Intake and Output 01/06/21 01/06/21 01/06/21 06:59 14:59 22:59 Intake Total 120 Balance 120 Intake: Oral 120 Other: Weight 81.647 kg 81.647 kg 81.647 kg - Constitutional General appearance: cooperative, disheveled, mild distress - EENT Eyes: EOMI, PERRLA Ears: bilateral: normal - Neck Neck: normal ROM Carotids: bilateral: upstroke normal Thyroid: bilateral: normal size - Respiratory Respiratory: bilateral: diminished - Cardiovascular Heart sounds: normal: S1, S2 - Gastrointestinal General gastrointestinal: normal bowel sounds, soft - Neurologic Neurologic: CNII-XII intact - Musculoskeletal Musculoskeletal: gait normal, generalized weakness, strength equal bilaterally - Psychiatric Psychiatric: A&O x's 3, appropriate affect, intact judgment & insight Results - Laboratory Findings CBC and BMP: 01/06/21 03:42 01/06/21 03:42 PT/INR, D-dimer PT 10.7 sec (9.0-12.0) 01/06/21 03:42 INR 1.0 (<1.2) 01/06/21 03:42 D-Dimer 1.35 mg/L FEU (<0.60) H 01/06/21 03:42 Abnormal lab findings: Abnormal Labs 01/06/21 01/06/21 01/06/21 03:42 03:42 03:42 WBC 15.2 H RBC 2.94 L Hgb 9.2 L Hct 28.3 L Plt Count 81 L Neutrophils # 13.7 H Lymphocytes # 0.7 L D-Dimer 1.35 H Sodium 136 L BUN 66 H Creatinine 1.77 H Glucose 145 H Magnesium 2.6 H Creatine Kinase <20 L Procalcitonin 01/06/21 03:42 WBC RBC Hgb Hct Plt Count Neutrophils # Lymphocytes # D-Dimer Sodium BUN Creatinine Glucose Magnesium Creatine Kinase Procalcitonin 0.13 H - Diagnostic Findings Chest x-ray: report reviewed, image reviewed Assessment and Plan Assessment: Acute COPD exacerbation Exacerbation of CHF likely acute on chronic diastolic heart failure Obstructive sleep apnea Less likely pneumonia, appeared to be resolving pneumonia Plan: Continue bronchodilator IV steroids Gentle diuresis Further recommendations pending plan of care as per clinical response of the patient Time with Patient: Greater than 30
[2021-01-06] MEDS: METOPROLOL TARTRATE 50 MG TAB PO SCH ×2 (17:26→20:36)
--- NOTE | 2021-01-06 18:00 | ECHOF ---
Referral Reason:sob MEASUREMENTS -------- HEIGHT: 162.6 cm WEIGHT: 81.6 kg BP: RVIDd: 3.4 cm (< 3.3) IVSd: 1.6 cm (0.6 - 1.1) LVIDd: 3.7 cm (3.9 - 5.3) LVPWd: 1.3 cm (0.6 - 1.1) IVSs: 1.9 cm LVIDs: 2.3 cm LVPWs: 1.7 cm LAESV Index (A-L): 51.30 ml/m Ao Diam: 2.7 cm (2.0 - 3.7) AV Cusp: 1.7 cm (1.5 - 2.6) LA Diam: 4.1 cm (2.7 - 3.8) MV EXCURSION: 12.495 mm (> 18.000) MV EF SLOPE: 40 mm/s (70 - 150) EPSS: 0.4 cm MV E Brando: 1.68 m/s MV DecT: 388 ms MV A Brando: 1.53 m/s MV E/A Ratio: 1.10 AV maxP.89 mmHg AV meanP.05 mmHg AR PHT: 380 ms RAP: 5.00 mmHg RVSP: 62.48 mmHg FINDINGS -------- This was a technically good study. The left ventricular size is normal. There is moderate concentric left ventricular hypertrophy. O verall left ventricular systolic function is normal with, an EF between 55 - 60 %. Increased LAP Gr sagar 3 Diastolic Dysfunction. The right ventricle is mildly enlarged. LA is severely dilated >40 ml/m2 The right atrial size is normal. Aortic valve is trileaflet and is mildly thickened. There is mild aortic regurgitation. There is mild aortic stenosis present. Peak/mean gradient across the Aortic Valve is 17.89mmHg / 11.05mmHg. The mitral valve is normal. The mitral valve leaflets are moderately thickened. Moderate mitral a nnular calcification present. Tkhrsldq-xr-wlnbqw mitral regurgitation is present. The peak and m yessica MV gradients are 22.89mmHg 7.12mmHg as measured by doppler. Moderate mitral stenosis. The tricuspid valve appears structurally normal. Moderate to severe tricuspid regurgitation present . There is moderate pulmonary hypertension. The right ventricular systolic pressure, as measured by Doppler, is 62.48mmHg. The aortic root size is normal. Normal inferior vena cava with normal inspiratory collapse consistent with estimated right atrial pre ssure of 5 mmHg. There is no pericardial effusion. CONCLUSIONS -------- 1. The left ventricular size is normal. 2. There is moderate concentric left ventricular hypertrophy. 3. Overall left ventricular systolic function is normal with, an EF between 55 - 60 %. 4. Increased LAP Grade 3 Diastolic Dysfunction. 5. The right ventricle is mildly enlarged. 6. LA is severely dilated >40 ml/m2 7. Aortic valve is trileaflet and is mildly thickened. 8. There is mild aortic regurgitation. 9. There is mild aortic stenosis present. 10. Peak/mean gradient across the Aortic Valve is 17.89mmHg / 11.05mmHg. 11. The mitral valve leaflets are moderately thickened. 12. Moderate mitral annular calcification present. 13. Lyymtdvt-xz-cjfrry mitral regurgitation is present. 14. The peak and mean MV gradients are 22.89mmHg 7.12mmHg as measured by doppler. 15. Moderate mitral stenosis. 16. Moderate to severe tricuspid regurgitation present. 17. There is moderate pulmonary hypertension. 18. The right ventricular systolic pressure, as measured by Doppler, is 62.48mmHg. 19. There is no pericardial effusion. PUBLIC HEALTH REPRESENTATIVE: Liza Stone RDCS
[2021-01-06] MEDS: LATANOPROST 0.005% OPHTH DROPS 2.5 ML BTL BOTH EYES SCH (20:37)
[2021-01-06] MEDS: CEFEPIME 2 GM in SODIUM CHLORIDE 0.9% 100 ML IVPB SCH (23:14)
[2021-01-07] MEDS: IPRATROPIUM-ALBUTEROL 3 ML NEB INHALATION PRN ×5 (03:18→20:22)
[2021-01-07] MEDS: LEVOTHYROXINE 112 MCG TAB PO SCH (05:51)
[2021-01-07] MEDS: METOPROLOL TARTRATE 50 MG TAB PO SCH ×3 (05:51→20:18)
[2021-01-07 07:59] LABS: Basophils % (A) 0 %; Eosinophils % (A) 0 %; HCT 25.9 % (34.0-46.0); HGB 8.2 gm/dL (11.4-16.0); Hypochromasia Slight; Lymphocytes # (A) 0.4 k/uL (1.0-4.8); Lymphocytes % (A) 6 %; MCH 30.6 pg (25.0-35.0); MCHC 31.6 g/dL (31.0-37.0); MCV 96.9 fL (80.0-100.0); Mean Platelet Volume 9.7; Monocytes # (A) 0.2 k/uL (0-1.0); Monocytes % (A) 3 %; Neutrophils # (A) 5.7 k/uL (1.3-7.7); Neutrophils % (A) 91 %; RBC 2.67 m/uL (3.80-5.40); RDW 14.2 % (11.5-15.5); WBC 6.3 k/uL (3.8-10.6)
[2021-01-07 08:12] LABS: Platelet Count 76 k/uL (150-450)
[2021-01-07] MEDS: FAMOTIDINE 20 MG/2 ML VIAL IV SCH (08:29)
[2021-01-07] MEDS: CHOLECALCIFEROL 25 MCG (1000 IU) TABLET PO SCH (08:29)
[2021-01-07] MEDS: LOSARTAN 50 MG TAB PO SCH (08:29)
[2021-01-07] MEDS: CITALOPRAM HYDROBROMIDE 20 MG TAB PO SCH (08:29)
[2021-01-07] MEDS: FERROUS SULFATE 325 MG TAB PO SCH ×2 (08:29→20:18)
[2021-01-07] MEDS: FUROSEMIDE 40 MG TAB PO SCH (08:30)
[2021-01-07] MEDS: amLODIPine 5 MG TAB PO SCH (08:30)
[2021-01-07] MEDS: AMIODARONE 200 MG TAB PO SCH (08:30)
[2021-01-07] MEDS: methylPREDNISolone SOD SUCCI 40 MG/ML 1 ML VIAL IV SCH ×3 (08:30→23:10)
[2021-01-07] MEDS: HEPARIN SODIUM,PORCINE 5,000 UNIT/ML 1 ML VIAL SQ SCH ×2 (08:30→20:19)
[2021-01-07] MEDS: SENNOSIDES-DOCUSATE SODIUM 1 EACH TAB PO SCH (08:30)
[2021-01-07] MEDS: ASPIRIN 81 MG PO SCH (08:30)
[2021-01-07] MEDS: CEFEPIME 2 GM in SODIUM CHLORIDE 0.9% 100 ML IVPB SCH (08:32)
[2021-01-07 08:36] LABS: Calcium 8.9 mg/dL (8.4-10.2); Magnesium 2.6 mg/dL (1.6-2.3); Potassium 4.4 mmol/L (3.5-5.1)
--- NOTE | 2021-01-07 10:42 | P.PN ---
Subjective This is a very pleasant 85-year-old patient of Dr. Maya. Currently at [facility]. Chronic stable medical conditions include COPD, paroxysmal atrial fibrillation, hypertension, hyperlipidemia, GERD, osteoarthritis, secondary pulmonary hypertension, hypothyroid, rosacea, osteoarthritis, urine stress incontinence,CHF from diastolic dysfunction EF 55- 60%, severe mitral regurgitation, moderate mitral stenosis, moderate tricuspid regurgitation, secondary pulmonary hypertension. Diverticulosis. at her baseline uses a cane and a walker. She is coming in from [facility] for dyspnea of one-day duration with no coughing and occasional phlegm but not currently. And bilateral leg swelling She is short of breath that she has difficulty finishing her symptoms but when she is lying in bed she is only mildly tachypneic. She had use a BiPAP last night No abdominal pain or nausea vomiting or diarrhea. She has some increased frequency of urination which could be due to Lasix before going to check urinalysis. She used to smoke for 19 years, she could not remember how much she smoked but she quit about 50 years ago and she denies alcohol or illicit drugs she does not follow up with tax compliance officer as an outpatient Nereida looks stable, uses BiPAP at night, currently she is saturating 97% on 5 L oxygen via nasal cannula. Labs showed leukocytosis of 15.2 K but also she was recently on steroids. Hemoglobin 9.2 and platelet is 80 1K which is chronic. INR is 1.0, showing sodium 136, creatinine 1.7. Liver enzymes not elevated. Lactic acid 1.1. Troponin 2 are negative less than 0.012. Coronavirus not detected. EKG showing normal sinus rhythm at 78 with left bundle-branch block and QTC of 513 Chest x-ray: Diffuse airspace opacity which may represent pulmonary vascular congestion versus an infectious process An emergency room she was started on Lasix 40 mg IV every 8 hours with a staff appraiser consulted 01/07/2021 Patient today she is breathing easier however she still have exertional dyspnea. No chest pain, minimal cough. On examination she has mild basal crepitation and bilateral leg swelling 1+ which goes with CHF. Her oxygen saturation is only 2% platelets are performed today. Vitals are stable and she is saturating 91% on 2 L oxygen via nasal cannula. CBC is unremarkable, creatinine is trending down 1.7 down to 1.5. Pro- calcitonin is slightly elevated 0.13. ProneBNP is 4000 120. She remains on Lasix with staff appraiser switch her to 40 mg by mouth daily instead of IV. She is currently also on cefepime and solid Medrol 40 mg. Losartan dose was lowered to 50 mg and amiodarone to 200 mg daily by staff appraiser. Patient is also on aspirin 81 mg which is home medication Review of Systems CONSTITUTIONAL: No fever, no malaise, no fatigue. HEENT: No recent visual problems or hearing problems. Denied any sore throat. CARDIOVASCULAR: No orthopnea, PND, no palpitations, no syncope. PULMONARY: no cough, no hemoptysis. GASTROINTESTINAL: No diarrhea, no nausea, no vomiting, no abdominal pain. Normoactive bowel sounds. NEUROLOGICAL: No headaches, no weakness, no numbness. HEMATOLOGICAL: Denies any bleeding or petechiae. Active Medications Generic Name Dose Route Start Last Admin Trade Name Freq PRN Reason Stop Dose Admin Hydrocodone Bitart/Acetaminophen 1 each 01/06/21 08:02 01/06/21 20:37 Hydrocodone/Apap 10-325mg 1 Each Tab PO 1 each Q6H PRN Administration Pain Albuterol/Ipratropium 3 ml 01/06/21 04:58 01/07/21 09:21 Ipratropium-Albuterol 3 Ml Neb INHALATION 3 ml RT-Q4H PRN Administration Shortness Of Breath Amiodarone HCl 200 mg 01/07/21 09:00 01/07/21 08:30 Amiodarone 200 Mg Tab PO 200 mg DAILY ANGELA Administration Amlodipine Besylate 5 mg 01/06/21 09:00 01/07/21 08:30 Amlodipine 5 Mg Tab PO 5 mg DAILY ANGELA Administration Aspirin 81 mg 01/06/21 09:00 01/07/21 08:30 Aspirin 81 Mg PO 81 mg DAILY ANGELA Administration Cholecalciferol 25 mcg 01/06/21 09:00 01/07/21 08:29 Cholecalciferol 25 Mcg (1000 Iu) Tablet PO 25 mcg DAILY ANGELA Administration Citalopram Hydrobromide 20 mg 01/06/21 09:00 01/07/21 08:29 Citalopram Hydrobromide 20 Mg Tab PO 20 mg DAILY ANGELA Administration Famotidine 20 mg 01/06/21 09:00 01/07/21 08:29 Famotidine 20 Mg/2 Ml Vial IV 20 mg Q12HR ANGELA Administration Ferrous Sulfate 325 mg 01/06/21 09:00 01/07/21 08:29 Ferrous Sulfate 325 Mg Tab PO 325 mg BID ANGELA Administration Furosemide 40 mg 01/06/21 09:00 01/07/21 08:30 Furosemide 40 Mg Tab PO 40 mg DAILY ANGELA Administration Heparin Sodium (Porcine) 5,000 unit 01/06/21 09:00 01/07/21 08:30 Heparin Sodium,Porcine 5,000 Unit/Ml 1 Ml Vial SQ 5,000 unit Q12HR ANGELA Administration Cefepime HCl 2 gm/ Sodium 100 mls @ 25 mls/hr 01/06/21 23:00 01/07/21 08:32 Chloride IVPB 25 mls/hr Q12HR ANGELA Administration Latanoprost 1 drops 01/06/21 20:00 01/06/21 20:37 Latanoprost 0.005% Ophth Drops 2.5 Ml Btl BOTH EYES 1 drops HS@2000 ANGELA Administration Levothyroxine Sodium 112 mcg 01/06/21 09:00 01/07/21 05:51 Levothyroxine 112 Mcg Tab PO 112 mcg DAILY@0630 ANGELA Administration Losartan Potassium 50 mg 01/06/21 09:00 01/07/21 08:29 Losartan 50 Mg Tab PO 50 mg DAILY ANGELA Administration Methylprednisolone Sodium Succinate 40 mg 01/06/21 08:45 01/07/21 08:30 Methylprednisolone Sod Succi 40 Mg/Ml 1 Ml Vial IV 40 mg Q8HR ANGELA Administration Metoprolol Tartrate 50 mg 01/06/21 13:00 01/07/21 05:51 Metoprolol Tartrate 50 Mg Tab PO 50 mg TID@0500,1300,2100 ANGELA Administration Ropinirole HCl 2 mg 01/06/21 21:00 01/06/21 20:36 Ropinirole Hcl 1 Mg Tab PO 2 mg HS [facility] Administration Senna/Docusate Sodium 1 each 01/06/21 09:00 01/07/21 08:30 Sennosides-Docusate Sodium 1 Each Tab PO 1 each DAILY ANGELA Administration Tramadol HCl 50 mg 01/06/21 08:02 Tramadol 50 Mg Tab PO Q6H PRN Moderate Pain Objective - Vital Signs Vital signs: Vital Signs Temp 97.1 F L 01/07/21 08:00 Pulse 72 02/27/21 09:31 Resp 20 01/07/21 08:00 BP 144/65 01/07/21 08:00 Pulse Ox 91 L 01/07/21 08:00 Intake & Output 01/06/21 01/07/21 01/07/21 18:59 06:59 18:59 Intake Total 360 Output Total 200 Balance 160 Weight 81.647 kg 80.9 kg Intake: Oral 360 Output: Urine 200 Other: # Voids 2 2 # Bowel Movements 2 1 1 - Exam GENERAL: The patient is alert and oriented x3, not in any acute distress. Well developed, well nourished. HEENT: Pupils are round and equally reacting to light. EOMI. No scleral icterus. No conjunctival pallor. Normocephalic, atraumatic. No pharyngeal erythema. No thyromegaly. CARDIOVASCULAR: S1 and S2 present. No murmurs, rubs, or gallops. -PULMONARY: Chest is clear to auscultation, no wheezing or crackles. Bilateral basal crepitation ABDOMEN: Soft, nontender, nondistended, normoactive bowel sounds. No palpable organomegaly. MUSCULOSKELETAL: No joint swelling or deformity. -EXTREMITIES: No cyanosis, clubbing, 1+ bilateral leg attending edema. NEUROLOGICAL: Gross neurological examination did not reveal any focal deficits. SKIN: No rashes. no petechiae. - Labs CBC & Chem 7: 01/07/21 07:36 01/07/21 07:36 Labs: Abnormal Lab Results - Last 24 Hours (Table) 01/06/21 01/07/21 01/07/21 Range/Units 03:42 07:36 07:36 RBC 2.67 L (3.80-5.40) m/uL Hgb 8.2 L (11.4-16.0) gm/dL Hct 25.9 L (34.0-46.0) % Plt Count 76 L (150-450) k/uL Lymphocytes # 0.4 L (1.0-4.8) k/uL BUN 67 H (7-17) mg/dL Creatinine 1.53 H (0.52-1.04) mg/dL Glucose 163 H (74-99) mg/dL Magnesium 2.6 H (1.6-2.3) mg/dL Procalcitonin 0.13 H (0.02-0.09) ng/mL Assessment and Plan Assessment: - Acute on chronic congestive heart failure exacerbation, from diastolic dysfunction EF 55-60%,-continue oral Lasix, switched by staff appraiser -Acute COPD exacerbation in an ub-utoqxj-ebfqnnhggghaaln, recently treated with IV, continue with IV steroids again -Possible pneumonia suspected gram-negative was recently discharged on Vantin. Check Procalcitonin -Severe mitral regurgitation, moderate mitral stenosis, moderate tricuspid regurgitation -Secondary moderate pulmonary hypertension from COPD and CHF -Essential hypertension-continue beta amara. 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 went back into sinus rhythm. Plan: This is a pleasant 85 years old female who presents with acute diastolic CHF, AK I and possible COPD, patient symptoms looks related to the heart more than the lung. continue with oral Lasix, continue with Solu-Medrol and cefepime was added for possible pneumonia. Labs and medication were reviewed.. Continue same treatment. Continue with symptomatic treatment. Resume home medication. Monitor lytes and vitals. DVT and GI prophylaxis. Further recommendations depends on the clinical course of the patient DVT prophylaxis: Subcutaneous heparin GI Prophylaxis: Pepcid Prognosis is guarded
[2021-01-07] MEDS ORDERED: FUROSEMIDE 10 MG/ML 4 ML VIAL IV STA (11:56)
--- NOTE | 2021-01-07 12:46 | P.PN ---
Subjective HISTORY OF PRESENTING ILLNESS This is a pleasant 85-year-old female past medical history significant for paroxysmal atrial fibrillation not on group home anticoagulation secondary to GI bleeding, left bundle branch block, hypertension, chronic diastolic heart failure, dyslipidemia, chronic kidney disease, CVA and history of colon cancer status post surgery and chemotherapy. She previously followed in the office with Dr. Leslie. She is seen and examined sitting up in bed undergoing an updraft treatment. Overall she states her breathing is about the same with no real improvement since yesterday. Blood pressure 144/65 heart rate 72 afebrile maintaining oxygen saturation on nasal cannula. Laboratory data reviewed, WBC 6.3, hemoglobin 8.2, platelets 76, sodium 139, potassium 4.4, creatinine 1.53, magnesium 2.6, NT proBNP 4120 and procalcitonin 0.13. Echocardiogram obtained reveals preserved LV systolic function with ejection fraction 55-60%, grade 3 diastolic dysfunction, mild aortic stenosis with mean gradient 11 mmHg, moderate mitral regurgitation and moderate mitral stenosis with a mean gradient of 7 mm artery, moderate to severe tricuspid regurgitation and moderate pulmonary hypertension with RVSP of 62 mmHg. She continues to be maintained on IV antibiotics. PHYSICAL EXAMINATION CONSTITUTIONAL: No apparent distress. HEENT: Head is normocephalic. Pupils are equal, round. Sclerae anicteric. Mucous membranes of the mouth are moist. No JVD. No carotid bruit. CHEST EXAMINATION: Scattered rhonchi, expiratory wheezes. No chest wall tenderness is noted on palpation or with deep breathing. HEART EXAMINATION: Regular rate and rhythm. S1, S2 heard. Systolic ejection murmur at the base, no gallops or rub. EXTREMITIES: 1+ peripheral pulses, trace edema on the left, mild pitting edema on the right lower extremity and no calf tenderness. ASSESSMENT Shortness of breath Acute on chronic diastolic heart failure secondary to valvular heart disease and pulmonary hypertension Leukocytosis Acute kidney injury Dehydration Paroxysmal atrial fibrillation not on group home anticoagulation secondary to GI bleeding. Currently maintaining sinus mechanism. Amiodarone was initiated on previous admission secondary to episodes of A. fib with RVR. Valvular heart disease, mitral regurgitation and tricuspid regurgitation Pulmonary hypertension, moderate Hypertension Dyslipidemia PLAN Give 1 dose of IV Lasix 40 mg today. Follow renal function and electrolytes in the morning. Nurse Practitioner note has been reviewed, I agree with a documented findings and plan of care. Patient was seen and examined. Objective - Vital Signs Vital signs: Vital Signs Temp 97.1 F L 01/07/21 08:00 Pulse 72 01/07/21 09:31 Resp 20 01/07/21 08:00 BP 144/65 01/07/21 08:00 Pulse Ox 91 L 01/07/21 08:00 Intake & Output 01/06/21 01/07/21 01/07/21 18:59 06:59 18:59 Intake Total 360 Output Total 200 Balance 160 Weight 81.647 kg 80.9 kg Intake: Oral 360 Output: Urine 200 Other: # Voids 2 # Bowel Movements 2 1 - Labs CBC & Chem 7: 01/07/21 07:36 01/07/21 07:36 Labs: Abnormal Lab Results - Last 24 Hours (Table) 01/06/21 01/07/21 01/07/21 Range/Units 03:42 07:36 07:36 RBC 2.67 L (3.80-5.40) m/uL Hgb 8.2 L (11.4-16.0) gm/dL Hct 25.9 L (34.0-46.0) % Plt Count 76 L (150-450) k/uL Lymphocytes # 0.4 L (1.0-4.8) k/uL BUN 67 H (7-17) mg/dL Creatinine 1.53 H (0.52-1.04) mg/dL Glucose 163 H (74-99) mg/dL Magnesium 2.6 H (1.6-2.3) mg/dL Procalcitonin 0.13 H (0.02-0.09) ng/mL
[2021-01-07] MEDS: LATANOPROST 0.005% OPHTH DROPS 2.5 ML BTL BOTH EYES SCH (20:18)
[2021-01-07] MEDS: CEFEPIME 1 GM in SODIUM CHLORIDE 0.9% 50 ML IVPB SCH (20:18)
[2021-01-08] MEDS: LEVOTHYROXINE 112 MCG TAB PO SCH (06:01)
[2021-01-08] MEDS: METOPROLOL TARTRATE 50 MG TAB PO SCH ×3 (06:01→20:38)
[2021-01-08] MEDS: FERROUS SULFATE 325 MG TAB PO SCH ×2 (08:18→20:38)
[2021-01-08] MEDS: FAMOTIDINE 20 MG TAB PO SCH (08:18)
[2021-01-08] MEDS: SENNOSIDES-DOCUSATE SODIUM 1 EACH TAB PO SCH (08:18)
[2021-01-08] MEDS: CHOLECALCIFEROL 25 MCG (1000 IU) TABLET PO SCH (08:18)
[2021-01-08] MEDS: ASPIRIN 81 MG PO SCH (08:18)
[2021-01-08] MEDS: CITALOPRAM HYDROBROMIDE 20 MG TAB PO SCH (08:18)
[2021-01-08] MEDS: AMIODARONE 200 MG TAB PO SCH (08:18)
[2021-01-08] MEDS: LOSARTAN 50 MG TAB PO SCH (08:18)
[2021-01-08] MEDS: FUROSEMIDE 40 MG TAB PO SCH (08:19)
[2021-01-08] MEDS: amLODIPine 5 MG TAB PO SCH (08:19)
[2021-01-08] MEDS: HEPARIN SODIUM,PORCINE 5,000 UNIT/ML 1 ML VIAL SQ SCH ×2 (08:20→20:38)
[2021-01-08] MEDS: methylPREDNISolone SOD SUCCI 40 MG/ML 1 ML VIAL IV SCH ×3 (08:20→23:46)
[2021-01-08] MEDS: CEFEPIME 1 GM in SODIUM CHLORIDE 0.9% 50 ML IVPB SCH ×2 (08:21→20:37)
[2021-01-08 08:45] LABS: Basophils % (A) 0 %; Eosinophils # (A) 0.1 k/uL (0-0.7); Eosinophils % (A) 1 %; HCT 27.9 % (34.0-46.0); HGB 8.9 gm/dL (11.4-16.0); Hypochromasia Slight; Lymphocytes # (A) 0.4 k/uL (1.0-4.8); Lymphocytes % (A) 4 %; MCH 30.9 pg (25.0-35.0); MCHC 31.8 g/dL (31.0-37.0); MCV 97.2 fL (80.0-100.0); Mean Platelet Volume 9.3; Monocytes # (A) 0.3 k/uL (0-1.0); Monocytes % (A) 3 %; Neutrophils # (A) 9.5 k/uL (1.3-7.7); Neutrophils % (A) 93 %; RBC 2.87 m/uL (3.80-5.40); RDW 14.5 % (11.5-15.5); WBC 10.3 k/uL (3.8-10.6)
[2021-01-08 09:00] LABS: Platelet Count 84 k/uL (150-450)
[2021-01-08 09:16] LABS: Calcium 9.1 mg/dL (8.4-10.2); Magnesium 2.6 mg/dL (1.6-2.3); Potassium 4.6 mmol/L (3.5-5.1)
--- NOTE | 2021-01-08 10:10 | P.PN ---
Subjective Progress Note Date: 01/08/21 Principal diagnosis: Acute COPD exacerbation Exacerbation of CHF likely acute on chronic diastolic heart failure Obstructive sleep apnea Less likely pneumonia, appeared to be resolving Prior episode OF pneumonia 01/08/2021, patient seen and evaluated examined during the rounds labs reviewed medications reviewed, patient is sitting upright in chair breathing comfortably saturation is 95% on 2 L oxygen hemodynamic status stable patient remains afebrile, BUN/creatinineremains stable in fact coming down and 64 1.32,patient remains on broad-spectrum antibiotic with cephapirin along with the bronchodilators and IV steroids diuresiswe'll repeat follow-up chest x-ray This is a 85-year-old female who came into emergency department with the shortness of breath and dry nonproductive cough, she sees her Dr. Maya resident of [facility] at [place] primary medical history significant for COPD proximal atrial fibrillation hypertension hypertensive cardiovascular disease and secondary pulmonary hypertension, she started having some shortness of breath of one day duration came into the hospital, does have history of the obstructive sleep apnea usually use BiPAP machine each night. Denies any abdominal pain or nausea vomiting or diarrhea. She has some inc reased frequency of urination which could be due to Lasix before going to check urinalysis. She used to smoke for 19 years, she could not remember how much she smoked but she quit about 50 years ago and she denies alcohol or illicit drugs Chest x-ray: Diffuse airspace opacity which may represent pulmonary vascular congestion versus an infectious process Objective - Vital Signs Vital signs: Vital Signs Temp 96.9 F L 01/08/21 08:00 Pulse 71 01/08/21 08:00 Resp 20 01/08/21 08:00 BP 165/72 01/08/21 08:00 Pulse Ox 95 01/08/21 08:00 Intake & Output 01/07/21 01/08/21 01/08/21 18:59 06:59 18:59 Intake Total 755 115 Output Total 800 Balance -45 115 Weight 80.2 kg Intake: Intake, IV Titration 100 Amount Cefepime 2 gm In Sodium 100 Chloride 0.9% 100 ml @ 25 mls/hr IVPB Q12HR [facility] Rx #:[id number] Oral 655 115 Output: Urine 800 Other: # Voids 2 3 # Bowel Movements 1 1 - Exam - Constitutional General appearance: cooperative, disheveled, mild distress - EENT Eyes: EOMI, PERRLA Ears: bilateral: normal - Neck Neck: normal ROM Carotids: bilateral: upstroke normal Thyroid: bilateral: normal size - Respiratory Respiratory: bilateral: diminished - Cardiovascular Heart sounds: normal: S1, S2 - Gastrointestinal General gastrointestinal: normal bowel sounds, soft - Neurologic Neurologic: CNII-XII intact - Musculoskeletal Musculoskeletal: gait normal, generalized weakness, strength equal bilaterally - Psychiatric Psychiatric: A&O x's 3, appropriate affect, intact judgment & insight - Labs CBC & Chem 7: 01/08/21 08:20 01/08/21 08:20 Labs: Abnormal Lab Results - Last 24 Hours (Table) 01/08/21 01/08/21 Range/Units 08:20 08:20 RBC 2.87 L (3.80-5.40) m/uL Hgb 8.9 L (11.4-16.0) gm/dL Hct 27.9 L (34.0-46.0) % Plt Count 84 L (150-450) k/uL Neutrophils # 9.5 H (1.3-7.7) k/uL Lymphocytes # 0.4 L (1.0-4.8) k/uL BUN 64 H (7-17) mg/dL Creatinine 1.32 H (0.52-1.04) mg/dL Glucose 178 H (74-99) mg/dL Magnesium 2.6 H (1.6-2.3) mg/dL Assessment and Plan Assessment: Acute COPD exacerbation Exacerbation of CHF likely acute on chronic diastolic heart failure Obstructive sleep apnea Less likely pneumonia, appeared to be resolving pneumonia Plan: Continue bronchodilator IV steroids Gentle diuresis Will obtain a follow-up chest x-ray Continue antibiotics however if x-ray improving can be changed to oral or stop it Further recommendations pending plan of care as per clinical response of the patient Time with Patient: Greater than 30
--- NOTE | 2021-01-08 10:29 | P.PN ---
Subjective HISTORY OF PRESENTING ILLNESS This is a pleasant 85-year-old female past medical history significant for paroxysmal atrial fibrillation not on residential anticoagulation secondary to GI bleeding, left bundle branch block, hypertension, chronic diastolic heart failure, dyslipidemia, chronic kidney disease, CVA and history of colon cancer status post surgery and chemotherapy. She previously followed in the office with Dr. Leslie. She is seen and examined sitting up in bed undergoing an updraft treatment. Overall she states her breathing is about the same with no real improvement since yesterday. Blood pressure 144/65 heart rate 72 afebrile maintaining oxygen saturation on nasal cannula. Laboratory data reviewed, WBC 6.3, hemoglobin 8.2, platelets 76, sodium 139, potassium 4.4, creatinine 1.53, magnesium 2.6, NT proBNP 4120 and procalcitonin 0.13. Echocardiogram obtained reveals preserved LV systolic function with ejection fraction 55-60%, grade 3 diastolic dysfunction, mild aortic stenosis with mean gradient 11 mmHg, moderate mitral regurgitation and moderate mitral stenosis with a mean gradient of 7 mm artery, moderate to severe tricuspid regurgitation and moderate pulmonary hypertension with RVSP of 62 mmHg. She continues to be maintained on IV antibiotics. 01/08/2021 Patient was seen and examined resting comfortably laying flat in no acute distress. She states overall her breathing is improving since admission however not back to baseline. She has no chest pain, dizziness or palpitations. Blood pressure 165/72 heart rate 71 afebrile maintaining oxygen saturation on nasal cannula. Laboratory data reviewed, hemoglobin 8.9, platelets 84, sodium 141, potassium 4.6 and creatinine 1.32. PHYSICAL EXAMINATION CONSTITUTIONAL: No apparent distress. HEENT: Head is normocephalic. Pupils are equal, round. Sclerae anicteric. Mucous membranes of the mouth are moist. No JVD. No carotid bruit. CHEST EXAMINATION: Scattered rhonchi, expiratory wheezes. No chest wall tenderness is noted on palpation or with deep breathing. HEART EXAMINATION: Regular rate and rhythm. S1, S2 heard. Systolic ejection murmur at the base, no gallops or rub. EXTREMITIES: 1+ peripheral pulses, trace edema on the left, mild pitting edema on the right lower extremity and no calf tenderness. ASSESSMENT Shortness of breath Acute on chronic diastolic heart failure secondary to valvular heart disease and pulmonary hypertension Leukocytosis Acute kidney injury Dehydration Paroxysmal atrial fibrillation not on residential anticoagulation secondary to GI bleeding. Currently maintaining sinus mechanism. Amiodarone was initiated on previous admission secondary to episodes of A. fib with RVR. Valvular heart disease, mitral regurgitation and tricuspid regurgitation Pulmonary hypertension, moderate Hypertension Dyslipidemia PLAN Continue oral Lasix. Resume losartan 50 mg daily. Further recommendations to follow based upon clinical course. Nurse Practitioner note has been reviewed, I agree with a documented findings and plan of care. Patient was seen and examined. Objective - Vital Signs Vital signs: Vital Signs Temp 96.9 F L 01/08/21 08:00 Pulse 71 01/08/21 08:00 Resp 20 01/08/21 08:00 BP 165/72 01/08/21 08:00 Pulse Ox 95 01/08/21 08:00 Intake & Output 01/07/21 01/08/21 01/08/21 18:59 06:59 18:59 Intake Total 755 115 Output Total 800 Balance -45 115 Weight 80.2 kg Intake: Intake, IV Titration 100 Amount Cefepime 2 gm In Sodium 100 Chloride 0.9% 100 ml @ 25 mls/hr IVPB Q12HR [facility] Rx #:[id number] Oral 655 115 Output: Urine 800 Other: # Voids 2 3 # Bowel Movements 1 1 - Labs CBC & Chem 7: 01/08/21 08:20 01/08/21 08:20 Labs: Abnormal Lab Results - Last 24 Hours (Table) 01/08/21 01/08/21 Range/Units 08:20 08:20 RBC 2.87 L (3.80-5.40) m/uL Hgb 8.9 L (11.4-16.0) gm/dL Hct 27.9 L (34.0-46.0) % Plt Count 84 L (150-450) k/uL Neutrophils # 9.5 H (1.3-7.7) k/uL Lymphocytes # 0.4 L (1.0-4.8) k/uL BUN 64 H (7-17) mg/dL Creatinine 1.32 H (0.52-1.04) mg/dL Glucose 178 H (74-99) mg/dL Magnesium 2.6 H (1.6-2.3) mg/dL
[2021-01-08] MEDS ORDERED: LOSARTAN 50 MG TAB PO STA (11:43)
--- NOTE | 2021-01-08 11:47 | P.PN ---
Subjective This is a very pleasant 85-year-old patient of Dr. Maya. Currently at [facility]. Chronic stable medical conditions include COPD, paroxysmal atrial fibrillation, hypertension, hyperlipidemia, GERD, osteoarthritis, secondary pulmonary hypertension, hypothyroid, rosacea, osteoarthritis, urine stress incontinence,CHF from diastolic dysfunction EF 55- 60%, severe mitral regurgitation, moderate mitral stenosis, moderate tricuspid regurgitation, secondary pulmonary hypertension. Diverticulosis. at her baseline uses a cane and a walker. She is coming in from intermediate for dyspnea of one-day duration with no coughing and occasional phlegm but not currently. And bilateral leg swelling She is short of breath that she has difficulty finishing her symptoms but when she is lying in bed she is only mildly tachypneic. She had use a BiPAP last night No abdominal pain or nausea vomiting or diarrhea. She has some increased frequency of urination which could be due to Lasix before going to check urinalysis. She used to smoke for 19 years, she could not remember how much she smoked but she quit about 50 years ago and she denies alcohol or illicit drugs she does not follow up with head of stock as an outpatient Nereida looks stable, uses BiPAP at night, currently she is saturating 97% on 5 L oxygen via nasal cannula. Labs showed leukocytosis of 15.2 K but also she was recently on steroids. Hemoglobin 9.2 and platelet is 80 1K which is chronic. INR is 1.0, showing sodium 136, creatinine 1.7. Liver enzymes not elevated. Lactic acid 1.1. Troponin 2 are negative less than 0.012. Coronavirus not detected. EKG showing normal sinus rhythm at 78 with left bundle-branch block and QTC of 513 Chest x-ray: Diffuse airspace opacity which may represent pulmonary vascular congestion versus an infectious process An emergency room she was started on Lasix 40 mg IV every 8 hours with a medical secretary receptionist consulted 01/07/2021 Patient today she is breathing easier however she still have exertional dyspnea. No chest pain, minimal cough. On examination she has mild basal crepitation and bilateral leg swelling 1+ which goes with CHF. Her oxygen saturation is only 2% platelets are performed today. Vitals are stable and she is saturating 91% on 2 L oxygen via nasal cannula. CBC is unremarkable, creatinine is trending down 1.7 down to 1.5. Pro- calcitonin is slightly elevated 0.13. ProneBNP is 4000 120. She remains on Lasix with medical secretary receptionist switch her to 40 mg by mouth daily instead of IV. She is currently also on cefepime and solid Medrol 40 mg. Losartan dose was lowered to 50 mg and amiodarone to 200 mg daily by medical secretary receptionist. Patient is also on aspirin 81 mg which is home medication 01/08/21 patent states her breathing is improving and she has less cough and and on exam she has less basal crepitations and crackles She is hemodynamically stable. She is saturating 95% on 2 L oxygen via nasal cannula. CBC and BMP are stable, creatinine is improving 1.5 down to 1.3. Magnesium is not low at 2.6. Patient is going to her [facility] [place] upon discharge Currently she is kept on subcu Medrol 40 mg and cefepime. Losartan and amiodarone doses were correct on admission by medical secretary receptionist, we will discuss with medical secretary receptionist team about dosing Possible discharge in 24-48 hours if she keeps improvement Objective - Vital Signs Vital signs: Vital Signs Temp 96.9 F L 01/08/21 08:00 Pulse 71 01/08/21 08:00 Resp 20 01/08/21 08:00 BP 165/72 01/08/21 08:00 Pulse Ox 95 01/08/21 08:00 Intake & Output 01/07/21 01/08/21 01/08/21 18:59 06:59 18:59 Intake Total 755 115 Output Total 800 300 Balance -45 -185 Weight 80.2 kg Intake: Intake, IV Titration 100 Amount Cefepime 2 gm In Sodium 100 Chloride 0.9% 100 ml @ 25 mls/hr IVPB Q12HR [facility] Rx #:[id number] Oral 655 115 Output: Urine 800 300 Other: # Voids 2 3 # Bowel Movements 1 1 1 - Exam GENERAL: The patient is alert and oriented x3, not in any acute distress. Well developed, well nourished. HEENT: Pupils are round and equally reacting to light. EOMI. No scleral icterus. No conjunctival pallor. Normocephalic, atraumatic. No pharyngeal erythema. No thyromegaly. CARDIOVASCULAR: S1 and S2 present. No murmurs, rubs, or gallops. -PULMONARY: Chest is clear to auscultation, no wheezing or crackles. Bilateral basal crepitation ABDOMEN: Soft, nontender, nondistended, normoactive bowel sounds. No palpable organomegaly. MUSCULOSKELETAL: No joint swelling or deformity. -EXTREMITIES: No cyanosis, clubbing, 1+ bilateral leg attending edema. NEUROLOGICAL: Gross neurological examination did not reveal any focal deficits. SKIN: No rashes. no petechiae. - Labs CBC & Chem 7: 01/08/21 08:20 01/08/21 08:20 Labs: Abnormal Lab Results - Last 24 Hours (Table) 01/08/21 01/08/21 Range/Units 08:20 08:20 RBC 2.87 L (3.80-5.40) m/uL Hgb 8.9 L (11.4-16.0) gm/dL Hct 27.9 L (34.0-46.0) % Plt Count 84 L (150-450) k/uL Neutrophils # 9.5 H (1.3-7.7) k/uL Lymphocytes # 0.4 L (1.0-4.8) k/uL BUN 64 H (7-17) mg/dL Creatinine 1.32 H (0.52-1.04) mg/dL Glucose 178 H (74-99) mg/dL Magnesium 2.6 H (1.6-2.3) mg/dL Assessment and Plan Assessment: - Acute on chronic congestive heart failure exacerbation, from diastolic dysfunction EF 55-60%,-continue oral Lasix, switched by medical secretary receptionist -Acute COPD exacerbation in an [id number], recently treated with IV, continue with IV steroids again -Possible pneumonia suspected gram-negative was recently discharged on Vantin. Check Procalcitonin -Severe mitral regurgitation, moderate mitral stenosis, moderate tricuspid regurgitation -Secondary moderate pulmonary hypertension from COPD and CHF -Essential hypertension-continue beta amara. 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 went back into sinus rhythm. Plan: This is a pleasant 85 years old female who presents with acute diastolic CHF, AK I and possible COPD, patient symptoms looks related to the heart more than the lung. continue with oral Lasix, continue with Solu-Medrol and cefepime was added for possible pneumonia. Labs and medication were reviewed.. Continue same treatment. Continue with symptomatic treatment. Resume home medication. Monitor lytes and vitals. DVT and GI prophylaxis. Further recommendations depends on the clinical course of the patient DVT prophylaxis: Subcutaneous heparin GI Prophylaxis: Pepcid Prognosis is guarded
[2021-01-08] MEDS: IPRATROPIUM-ALBUTEROL 3 ML NEB INHALATION PRN (12:16)
[2021-01-08] MEDS: LATANOPROST 0.005% OPHTH DROPS 2.5 ML BTL BOTH EYES SCH (20:38)
[2021-01-09 04:29] VITALS: PULSE 64
[2021-01-09] MEDS: LEVOTHYROXINE 112 MCG TAB PO SCH (05:27)
[2021-01-09] MEDS: METOPROLOL TARTRATE 50 MG TAB PO SCH ×2 (05:27→12:23)
--- NOTE | 2021-01-09 07:37 | XR ---
EXAMINATION TYPE: XR chest 2V DATE OF EXAM: 01/09/2021 COMPARISON: 01/06/2021 HISTORY: 85 year-old female pneumonia TECHNIQUE: PA and lateral views FINDINGS: Heart borderline to mildly enlarged. Trace pleural effusions. Multifocal patchy and confluent opaciti es, right greater than left without significant change. IMPRESSION: 1. Stable patchy right greater than left opacities and trace pleural effusions. 2. Stable borderline to mild cardiomegaly.
[2021-01-09 08:42] LABS: Calcium 9.1 mg/dL (8.4-10.2); Magnesium 2.7 mg/dL (1.6-2.3); Potassium 4.3 mmol/L (3.5-5.1)
[2021-01-09 08:50] VITALS: TEMP 96.3
[2021-01-09] MEDS ORDERED: LOSARTAN 50 MG TAB PO SCH (09:00)
[2021-01-09] MEDS ORDERED: FUROSEMIDE 10 MG/ML 4 ML VIAL IV STA (09:03)
[2021-01-09] MEDS: CEFEPIME 1 GM in SODIUM CHLORIDE 0.9% 50 ML IVPB SCH (10:27)
[2021-01-09] MEDS: methylPREDNISolone SOD SUCCI 40 MG/ML 1 ML VIAL IV SCH ×2 (10:28→17:41)
[2021-01-09] MEDS: HEPARIN SODIUM,PORCINE 5,000 UNIT/ML 1 ML VIAL SQ SCH (10:28)
[2021-01-09] MEDS: amLODIPine 5 MG TAB PO SCH (10:28)
[2021-01-09] MEDS: CHOLECALCIFEROL 25 MCG (1000 IU) TABLET PO SCH (10:29)
[2021-01-09] MEDS: FERROUS SULFATE 325 MG TAB PO SCH (10:29)
[2021-01-09] MEDS: AMIODARONE 200 MG TAB PO SCH (10:29)
[2021-01-09] MEDS: FAMOTIDINE 20 MG TAB PO SCH (10:29)
[2021-01-09] MEDS: SENNOSIDES-DOCUSATE SODIUM 1 EACH TAB PO SCH (10:29)
[2021-01-09] MEDS: CITALOPRAM HYDROBROMIDE 20 MG TAB PO SCH (10:29)
[2021-01-09] MEDS: ASPIRIN 81 MG PO SCH (10:29)
[2021-01-09] MEDS: FUROSEMIDE 40 MG TAB PO SCH (10:29)
--- NOTE | 2021-01-09 12:28 | P.PN ---
Subjective Progress Note Date: 01/09/21 Principal diagnosis: Acute COPD exacerbation Exacerbation of CHF likely acute on chronic diastolic heart failure Obstructive sleep apnea Less likely pneumonia, appeared to be resolving Prior episode OF pneumonia 01/09/2021, patient seen eval examined during the rounds currently slightly short of breath as patient recently finished her physical therapy, oxygen saturation did drop down on activity and exertion came up denies any cough or sputum production, chest x-ray remains stable with by basilar infiltrate/atelectasis along with trace pleural effusion 01/08/2021, patient seen and evaluated examined during the rounds labs reviewed medications reviewed, patient is sitting upright in chair breathing comfortably saturation is 95% on 2 L oxygen hemodynamic status stable patient remains afebrile, BUN/creatinineremains stable in fact coming down and 64 1.32,patient remains on broad-spectrum antibiotic with cephapirin along with the bronchodilators and IV steroids diuresiswe'll repeat follow-up chest x-ray This is a 85-year-old female who came into emergency department with the shortness of breath and dry nonproductive cough, she sees her Dr. Maya resident of [facility] at [place] primary medical history significant for COPD proximal atrial fibrillation hypertension hypertensive cardiovascular disease and secondary pulmonary hypertension, she started having some shortness of breath of one day duration came into the hospital, does have history of the obstructive sleep apnea usually use BiPAP machine each night. Denies any abdominal pain or nausea vomiting or diarrhea. She has some increased frequency of urination which could be due to Lasix before going to check urinalysis. She used to smoke for 19 years, she could not remember how much she smoked but she quit about 50 years ago and she denies alcohol or illicit drugs Chest x-ray: Diffuse airspace opacity which may represent pulmonary vascular congestion versus an infectious process Objective - Vital Signs Vital signs: Vital Signs Temp 96.3 F L 01/09/21 08:00 Pulse 64 01/09/21 08:00 Resp 20 01/09/21 08:00 BP 130/66 01/09/21 08:00 Pulse Ox 99 01/09/21 08:00 Intake & Output 01/08/21 01/09/21 01/09/21 18:59 06:59 18:59 Intake Total 465 200 560 Output Total 300 Balance 165 200 560 Weight 80.4 kg Intake: Intake, IV Titration 50 Amount Cefepime 1 gm In Sodium 50 Chloride 0.9% 50 ml @ 12. 5 mls/hr IVPB Q12HR [facility] Rx#:[id number] Oral 415 200 560 Output: Urine 300 Other: Voiding Method Bedside Commode Diaper Incontinent # Voids 1 # Bowel Movements 1 1 - Exam - Constitutional General appearance: cooperative, disheveled, mild distress - EENT Eyes: EOMI, PERRLA Ears: bilateral: normal - Neck Neck: normal ROM Carotids: bilateral: upstroke normal Thyroid: bilateral: normal size - Respiratory Respiratory: bilateral: diminished - Cardiovascular Heart sounds: normal: S1, S2 - Gastrointestinal General gastrointestinal: normal bowel sounds, soft - Neurologic Neurologic: CNII-XII intact - Musculoskeletal Musculoskeletal: gait normal, generalized weakness, strength equal bilaterally - Psychiatric Psychiatric: A&O x's 3, appropriate affect, intact judgment & insight - Labs CBC & Chem 7: 01/08/21 08:20 01/09/21 07:41 Labs: Abnormal Lab Results - Last 24 Hours (Table) 01/09/21 Range/Units 07:41 BUN 61 H (7-17) mg/dL Creatinine 1.18 H (0.52-1.04) mg/dL Glucose 165 H (74-99) mg/dL Magnesium 2.7 H (1.6-2.3) mg/dL Assessment and Plan Assessment: Acute COPD exacerbation Exacerbation of CHF likely acute on chronic diastolic heart failure Obstructive sleep apnea Less likely pneumonia, appeared to be resolving pneumonia Plan: Continue bronchodilator IV steroids Gentle diuresis Will obtain a follow-up chest x-ray Continue antibiotics however if x-ray improving can be changed to oral or stop it Further recommendations pending plan of care as per clinical response of the patient Time with Patient: Greater than 30
[2021-01-09 13:09] VITALS: BP 129/60; RESP 18
--- NOTE | 2021-01-09 14:11 | P.DS ---
Providers Date of admission: 01/06/21 04:57 Attending physician: Andreea Acosta Consults: 01/06/21 04:57 Consult Physician Routine Consulting Provider: Barbara Baxter Consult Reason/Comments: chf Do you want consulting provider notified?: Yes 01/06/21 08:37 Consult Physician Urgent Consulting Provider: Jesus Ellison Consult Reason/Comments: sob and hypoxia Do you want consulting provider notified?: Yes Primary care physician: Doe Maya Hospital Course: Diagnoses: - Acute on chronic congestive heart failure exacerbation, from diastolic dysfunction EF 55-60%,-continue oral Lasix, switched by purchasing engineer -Acute COPD exacerbation in an [id number], recently treated with IV, continue with IV steroids again -Possible pneumonia suspected gram-negative was recently discharged on Vantin. Check Procalcitonin -Severe mitral regurgitation, moderate mitral stenosis, moderate tricuspid regurgitation -Secondary moderate pulmonary hypertension from COPD and CHF -Essential hypertension-continue beta amara. 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 went back into sinus rhythm. hospital course: This is a very pleasant 85-year-old patient of Dr. Maya. Currently at [facility]. Chronic stable medical conditions include COPD, paroxysmal atrial fibrillation, hypertension, hyperlipidemia, GERD, osteoarthritis, secondary pulmonary hypertension, hypothyroid, rosacea, osteoarthritis, urine stress incontinence,CHF from diastolic dysfunction EF 55- 60%, severe mitral regurgitation, moderate mitral stenosis, moderate tricuspid regurgitation, secondary pulmonary hypertension. Diverticulosis. at her baseline uses a cane and a walker. She is coming in from senior living for dyspnea of one-day duration with no coughing and occasional phlegm but not currently. And bilateral leg swelling. Patient has been evaluated by safe technician and purchasing engineer, she was found to have possible bilateral hospital-acquired pneumonia improved with cefepime, COPD acute exacerbation of Solu-Medrol and acute on chronic diastolic CHF and she was treated with by mouth and IV Lasix. Patient improved and she is back to her baseline, she is breathing quietly. She is saturating 99% on 2 L oxygen via nasal cannula. No exertional dyspnea. No other complaints. No chest pain or abdominal pain. No change in urine or bowel habits. No fever. Patient was cleared for discharge by both cardiology and pulmonary team's. Problems and management plan were discussed with the patient and he verbalized understanding and acceptance Patient was found stable and can be discharged home however he needs follow-up as an outpatient. Patient was instructed to follow up with PCP Dr. Maya within one week and patient agrees 1. Also patient was instructed to follow up with her purchasing engineer Dr. Veronica in [address] Ellison in 2 weeks. Discharge instructions: Salt and fluid restriction to 1200 mL per day Physical exam Gen: patient is a AAOx3, no distress CVS: S1-S2, RRR, no murmur Lungs: B/L CTA, no wheezing Abdomen: soft, no distention, no tenderness, positive bowel sounds Extremity: no leg edema or induration Time spent more than 35 minutes Patient Condition at Discharge: Fair Plan - Discharge Summary Discharge Rx Participant: No New Discharge Prescriptions: New Amiodarone [Cordarone] 200 mg PO DAILY tab Discontinued Amiodarone [Cordarone] 200 mg PO BID No Action Citalopram Hydrobromide [CeleXA] 20 mg PO DAILY rOPINIRole HCL [Requip] 2 mg PO HS Ferrous Sulfate [Feosol] 325 mg PO BID Furosemide [Lasix] 40 mg PO BID #60 tab Ascorbic Acid [Vitamin C] 500 mg PO DAILY Cholecalciferol [Vitamin D3 (25 Mcg = 1000 Iu)] 25 mcg PO DAILY Latanoprost Ophth [Xalatan 0.005%] 1 drop BOTH EYES HS@2000 Metoprolol Tartrate [Lopressor] 50 mg PO TID@0500,1300,2100 amLODIPine [Norvasc] 5 mg PO BID #0 tab Sennosides-Docusate Sodium [Senokot-S] 1 tab PO DAILY #1 tablet HYDROcodone/APAP 10-325MG [[place]ston 10-325] 1 tab PO Q6H PRN #12 tab PRN Reason: Pain traMADol HCl [Ultram] 50 mg PO Q6H PRN #12 tab PRN Reason: Moderate Pain Aspirin 81 mg PO DAILY fentaNYL 75MCG/HR PATCH [Duragesic 75MCG/HR] 75 mcg TRANSDERM Q72H Levothyroxine Sodium [Synthroid] 112 mcg PO DAILY Losartan Potassium 100 mg PO DAILY Discharge Medication List Citalopram Hydrobromide [CeleXA] 20 mg PO DAILY 11/30/16 [History] rOPINIRole HCL [Requip] 2 mg PO HS 11/02/17 [History] Ferrous Sulfate [Feosol] 325 mg PO BID 12/25/18 [History] Furosemide [Lasix] 40 mg PO BID #60 tab 06/16/19 [Rx] Ascorbic Acid [Vitamin C] 500 mg PO DAILY 12/16/20 [History] Cholecalciferol [Vitamin D3 (25 Mcg = 1000 Iu)] 25 mcg PO DAILY 12/16/20 [History] Latanoprost Ophth [Xalatan 0.005%] 1 drop BOTH EYES HS@199912/16/20 [History] Metoprolol Tartrate [Lopressor] 50 mg PO TID@0500,1300,2100 12/16/20 [History] HYDROcodone/APAP 10-325MG [[place] 10-325] 1 tab PO Q6H PRN #12 tab 12/22/20 [Rx] Sennosides-Docusate Sodium [Senokot-S] 1 tab PO DAILY #1 tablet 12/22/20 [Rx] amLODIPine [Norvasc] 5 mg PO BID #0 tab 12/22/20 [Rx] traMADol HCl [Ultram] 50 mg PO Q6H PRN #12 tab 12/22/20 [Rx] Aspirin 81 mg PO DAILY 01/06/21 [History] Levothyroxine Sodium [Synthroid] 112 mcg PO DAILY 01/06/21 [History] Losartan Potassium 100 mg PO DAILY 01/06/21 [History] fentaNYL 75MCG/HR PATCH [Duragesic 75MCG/HR] 75 mcg TRANSDERM Q72H 01/06/21 [History] Amiodarone [Cordarone] 200 mg PO DAILY tab 01/08/21 [Rx] Follow up Appointment(s)/Referral(s): Reyes Connelly MD [STAFF PHYSICIAN] - 2 Weeks Delano Maya MD [Primary Care Provider] - 1-2 days Jesus Ellison MD [STAFF PHYSICIAN] - 1 Week Activity/Diet/Wound Care/Special Instructions: Heart healthy diet, with fluid restriction to 1200 ml per day , with table salt restriction Activity is restricted to you see your doctor
--- NOTE | 2021-01-09 15:19 | P.PN ---
Subjective HISTORY OF PRESENTING ILLNESS This is a pleasant 85-year-old female past medical history significant for paroxysmal atrial fibrillation not on [facility] anticoagulation secondary to GI bleeding, left bundle branch block, hypertension, chronic diastolic heart failure, dyslipidemia, chronic kidney disease, CVA and history of colon cancer status post surgery and chemotherapy. She previously followed in the office with Dr. Leslie. She is seen and examined sitting up in bed undergoing an updraft treatment. Overall she states her breathing is about the same with no real improvement since yesterday. Blood pressure 144/65 heart rate 72 afebrile maintaining oxygen saturation on nasal cannula. Laboratory data reviewed, WBC 6.3, hemoglobin 8.2, platelets 76, sodium 139, potassium 4.4, creatinine 1.53, magnesium 2.6, NT proBNP 4120 and procalcitonin 0.13. Echocardiogram obtained reveals preserved LV systolic function with ejection fraction 55-60%, grade 3 diastolic dysfunction, mild aortic stenosis with mean gradient 11 mmHg, moderate mitral regurgitation and moderate mitral stenosis with a mean gradient of 7 mm artery, moderate to severe tricuspid regurgitation and moderate pulmonary hypertension with RVSP of 62 mmHg. She continues to be maintained on IV antibiotics. 01/08/2021 Patient was seen and examined resting comfortably sitting up in bed in no acute distress. She states her breathing is improving, no worsening shortness of breath, chest pain or palpitations. Blood pressure 130/66 heart rate 64 afebrile and maintaining oxygen saturation on nasal cannula. Repeat chest x-ray today reveals stable patchy right greater than left opacities. Laboratory data reviewed, sodium 140, potassium 4.3, creatinine 1.18 and magnesium 2.7. Currently maintained on amiodarone 200 mg daily, amlodipine 5 mg daily, aspirin 81 mg daily, Lasix 40 mg by mouth daily, losartan 100 mg daily and Lopressor 50 mg 3 times a day. PHYSICAL EXAMINATION CONSTITUTIONAL: No apparent distress. HEENT: Head is normocephalic. Pupils are equal, round. Sclerae anicteric. Mucous membranes of the mouth are moist. No JVD. No carotid bruit. CHEST EXAMINATION: Scattered rhonchi, no rales or wheezes. No chest wall tenderness is noted on palpation or with deep breathing. HEART EXAMINATION: Regular rate and rhythm. S1, S2 heard. Systolic ejection murmur at the base, no gallops or rub. EXTREMITIES: 1+ peripheral pulses, trace edema on the left, mild pitting edema on the right lower extremity and no calf tenderness. ASSESSMENT Shortness of breath Acute on chronic diastolic heart failure secondary to valvular heart disease and pulmonary hypertension Leukocytosis Acute kidney injury Dehydration Paroxysmal atrial fibrillation not on [facility] anticoagulation secondary to GI bleeding. Currently maintaining sinus mechanism. Amiodarone was initiated on previous admission secondary to episodes of A. fib with RVR. Valvular heart disease, mitral regurgitation and tricuspid regurgitation Pulmonary hypertension, moderate Hypertension Dyslipidemia PLAN Clinically stable on current medical regimen from a cardiac perspective. Ongoing medical management and treatment of pnuemonia. Follow up upon discharge with Dr. Connelly. Nurse Practitioner note has been reviewed, I agree with a documented findings and plan of care. Patient was seen and examined. Objective - Vital Signs Vital signs: Vital Signs Temp 96.3 F L 01/09/21 08:00 Pulse 64 01/09/21 08:00 Resp 20 01/09/21 08:00 BP 130/66 01/09/21 08:00 Pulse Ox 99 01/09/21 08:00 Intake & Output 01/08/21 01/09/21 01/09/21 18:59 06:59 18:59 Intake Total 465 200 560 Output Total 300 Balance 165 200 560 Weight 80.4 kg Intake: Intake, IV Titration 50 Amount Cefepime 1 gm In Sodium 50 Chloride 0.9% 50 ml @ 12. 5 mls/hr IVPB Q12HR [facility] Rx#:[id number] Oral 415 200 560 Output: Urine 300 Other: Voiding Method Bedside Commode Diaper Incontinent # Voids 1 # Bowel Movements 1 1 - Labs CBC & Chem 7: 01/08/21 08:20 01/09/21 07:41 Labs: Abnormal Lab Results - Last 24 Hours (Table) 01/09/21 Range/Units 07:41 BUN 61 H (7-17) mg/dL Creatinine 1.18 H (0.52-1.04) mg/dL Glucose 165 H (74-99) mg/dL Magnesium 2.7 H (1.6-2.3) mg/dL
== END 2021-01-09 18:26 | DRG 291 ==
LOC: EC 03:09 → 3SCARD 04:57
PROVIDERS: ADMIT Hospitalist; ATTEND Hospitalist
DX: I13.0 Hypertensive heart and chronic kidney disease with heart failure and stage 1 through stage 4 chronic kidney disease, or unspecified chronic kidney disease (principal); I50.33 Acute on chronic diastolic (congestive) heart failure; J96.21 Acute and chronic respiratory failure with hypoxia; J15.6 Pneumonia due to other Gram-negative bacteria; N17.9 Acute kidney failure, unspecified; D69.3 Immune thrombocytopenic purpura; J44.1 Chronic obstructive pulmonary disease with (acute) exacerbation; I27.29 Other secondary pulmonary hypertension; E86.0 Dehydration; I48.0 Paroxysmal atrial fibrillation; N18.30 Chronic kidney disease, stage 3 unspecified; Z20.822 Contact with and (suspected) exposure to COVID-19; D72.829 Elevated white blood cell count, unspecified; T38.0X5A Adverse effect of glucocorticoids and synthetic analogues, initial encounter; E03.9 Hypothyroidism, unspecified; I08.3 Combined rheumatic disorders of mitral, aortic and tricuspid valves; K21.9 Gastro-esophageal reflux disease without esophagitis; N39.3 Stress incontinence (female) (male); G89.29 Other chronic pain; I44.7 Left bundle-branch block, unspecified; M54.5 Low back pain; E78.5 Hyperlipidemia, unspecified; G47.33 Obstructive sleep apnea (adult) (pediatric); L71.9 Rosacea, unspecified; K59.00 Constipation, unspecified; H40.9 Unspecified glaucoma; K57.90 Diverticulosis of intestine, part unspecified, without perforation or abscess without bleeding; M19.91 Primary osteoarthritis, unspecified site; R26.9 Unspecified abnormalities of gait and mobility; F41.9 Anxiety disorder, unspecified; Z99.81 Dependence on supplemental oxygen; Z79.82 Long term (current) use of aspirin; Z79.890 Hormone replacement therapy; Z79.891 Long term (current) use of opiate analgesic; Z79.899 Other long term (current) drug therapy; Z89.021 Acquired absence of right finger(s); Z86.73 Personal history of transient ischemic attack (TIA), and cerebral infarction without residual deficits; Z87.19 Personal history of other diseases of the digestive system; Z87.01 Personal history of pneumonia (recurrent); Z87.891 Personal history of nicotine dependence; Z85.038 Personal history of other malignant neoplasm of large intestine; Z90.49 Acquired absence of other specified parts of digestive tract; Z92.21 Personal history of antineoplastic chemotherapy; Z92.3 Personal history of irradiation; Z87.440 Personal history of urinary (tract) infections; Z87.81 Personal history of (healed) traumatic fracture; Z87.39 Personal history of other diseases of the musculoskeletal system and connective tissue; Z86.010 Personal history of colon polyps; Z91.81 History of falling; Z98.42 Cataract extraction status, left eye; Z98.41 Cataract extraction status, right eye; Z98.890 Other specified postprocedural states; Z88.5 Allergy status to narcotic agent; Z88.2 Allergy status to sulfonamides; Z83.79 Family history of other diseases of the digestive system; Z81.1 Family history of alcohol abuse and dependence; Z82.49 Family history of ischemic heart disease and other diseases of the circulatory system
CPT/HCPCS: 36415; 71045; 71046; 80048; 80053; 81003; 82550; 83605; 83735; 83880; 84145; 84484; 85025; 85379; 85610; 85730; 87635; 93005; 93306; 94640; 94660; 94760; 96372; 96374; 96375; 99285; 99291

== ENCOUNTER 2021-02-18 03:25 | Inpatient (IN) | payer MEDICARE ==
[2021-02-18] MEDS ORDERED: LORazepam 2 MG/ML INJ IV STA (03:31)
[2021-02-18] MEDS ORDERED: MORPHINE SULFATE 4 MG/ML SYRINGE IV STA (03:31)
--- NOTE | 2021-02-18 03:34 | ED ---
SOB HPI - General Stated Complaint: Cardiac Arrest Time Seen by Provider: 02/18/21 03:29 Source: EMS Mode of arrival: EMS Limitations: physical limitation (Patient is intubated) - History of Present Illness Initial Comments: Patient is 85-year-old woman who is brought from correction to be evaluated for shortness of breath. History comes from EMS as the patient is intubated. They were reportedly called for patient having difficulty breathing. On arrival, they found the patient appearing to have agonal respirations. They proceeded to intubate patient. They state that patient continued to have palpable pulses throughout. MD Complaint: shortness of breath -: unknown Known History Of: congestive heart failure - Related Data Home Medications Medication Instructions Recorded Confirmed Citalopram Hydrobromide [CeleXA] 20 mg PO DAILY 11/30/16 02/18/21 rOPINIRole HCL [Requip] 2 mg PO HS 11/02/17 02/18/21 Ferrous Sulfate [Feosol] 325 mg PO BID 12/25/18 02/18/21 Ascorbic Acid [Vitamin C] 500 mg PO DAILY 12/16/20 02/18/21 Latanoprost Ophth [Xalatan 0.005%] 1 drop BOTH EYES HS@199912/16/20 02/18/21 Metoprolol Tartrate [Lopressor] 50 mg PO TID@0500,1300,2100 12/16/20 02/18/21 Aspirin 81 mg PO DAILY 01/06/21 02/18/21 Levothyroxine Sodium [Synthroid] 112 mcg PO HS 01/06/21 02/18/21 Losartan Potassium 100 mg PO DAILY 01/06/21 02/18/21 Cholecalciferol [Vitamin D3 (25 25 mcg PO DAILY 02/18/21 02/18/21 Mcg = 1000 Iu)] Spironolactone 25 mg PO DAILY 02/18/21 02/18/21 traMADol HCl [Ultram] 50 mg PO Q6HR PRN 02/18/21 02/18/21 Previous Rx's Medication Instructions Recorded Sennosides-Docusate Sodium 1 tab PO DAILY #1 tablet 12/22/20 [Senokot-S] Amiodarone [Cordarone] 200 mg PO DAILY tab 01/08/21 Famotidine [Pepcid] 20 mg PO DAILY tab 01/09/21 Furosemide [Lasix] 40 mg PO DAILY tab 01/09/21 HYDROcodone/APAP 10-325MG [[place] 1 tab PO Q12H PRN #4 tab 01/09/21 10-325] Ipratropium-Albuterol Nebulize 3 ml INHALATION RT-Q4H PRN ml 01/09/21 [Duoneb 0.5 mg-3 mg/3 ml Soln] Allergies Allergy/AdvReac Type Severity Reaction Status Date / Time codeine AdvReac does not Verified 02/18/21 06:[address] it makes her feel sulfamethoxazole AdvReac does not Verified 02/18/21 06:56 [From Bactrim] like the way it makes her feel trimethoprim [From Bactrim] AdvReac does not Verified 02/18/21 06:[address] it makes her feel Review of Systems ROS Statement: Those systems with pertinent positive or pertinent negative responses have been documented in the HPI. ROS Other: All systems not noted in ROS Statement are negative. Limitations: ROS unobtainable due to patients medical condition Past Medical History Past Medical History: Atrial Fibrillation, Asthma, Cancer, Heart Failure, COPD, CVA/TIA, Eye Disorder, GERD/Reflux, GI Bleed, Hyperlipidemia, Hypertension, Osteoarthritis (OA), Pneumonia, Renal Disease, Skin Disorder, Thyroid Disorder, Vascular Disorder Additional Past Medical History / Comment(s): Lower GI bleed with acute blood loss anemia, thrombocytopenia, gastritis/duodenitis, 2001 colon cancer with surgery/chemo and radiation, chronic hypoxic respiratory failure, home O2 at 2L/NC ATC, pulmonary HTN, pleurisy, chronic kidney disease stage III, CVA with slight speech difficulty, heart murmur, glaucoma bilaterally, hypothyroid, rosacia, UTIs, urine stress incontinence, constipation, diverticular disease, arthritis multiple joints, chronic low back pain, past fall with L hip fracture and R patellar fracture, rib fracture, L hmeral fracture with L shoulder pain, sinus problems, 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 Past Anesthesia/Blood Transfusion Reactions: No Reported Reaction Smoking Status: Former smoker - Past Family History Father Family Medical History: Liver Disease Additional Family Medical History / Comment(s): ETOH abuse - cirrhosis of the li [place] Mother Family Medical History: Vascular Disorder Additional Family Medical History / Comment(s): Brain aneurysm General Exam General appearance: alert Head exam: Present: atraumatic, normocephalic Eye exam: Present: normal appearance, EOMI. Absent: scleral icterus, conjunctival injection ENT exam: Present: other (There is an endotracheal tube and bite block present) Neck exam: Present: normal inspection, full ROM. Absent: tenderness Respiratory exam: Present: rales. Absent: wheezes, rhonchi, stridor Cardiovascular Exam: Present: regular rate, normal rhythm, normal heart sounds. Absent: systolic murmur, diastolic murmur, rubs, gallop GI/Abdominal exam: Present: soft. Absent: tenderness, guarding, rebound Extremities exam: Present: normal inspection, normal capillary refill. Absent: pedal edema, calf tenderness Neurological exam: Present: alert, CN II-XII intact. Absent: motor sensory deficit Skin exam: Present: warm, dry, intact, normal color. Absent: rash Course Vital Signs 02/18/21 02/18/21 02/18/21 03:25 03:30 03:50 Temperature 98.4 F Pulse Rate 74 54 L Pulse Rate [ 74 Left Radial] Respiratory 18 20 Rate Blood Pressure 172/63 118/61 O2 Sat by Pulse 99 100 Oximetry 02/18/21 02/18/21 02/18/21 04:15 04:30 04:45 Temperature Pulse Rate 48 L 47 L 46 L Pulse Rate [ Left Radial] Respiratory 20 20 20 Rate Blood Pressure 78/31 69/32 79/37 O2 Sat by Pulse 100 97 97 Oximetry 02/18/21 02/18/21 02/18/21 05:00 05:15 06:00 Temperature Pulse Rate 52 L 53 L 55 L Pulse Rate [ Left Radial] Respiratory 20 20 20 Rate Blood Pressure 112/50 127/57 129/60 O2 Sat by Pulse 97 97 97 Oximetry 02/18/21 02/18/21 02/18/21 07:00 08:00 09:00 Temperature Pulse Rate 57 L 84 56 L Pulse Rate [ Left Radial] Respiratory 20 20 20 Rate Blood Pressure 125/51 115/66 114/58 O2 Sat by Pulse 98 95 98 Oximetry 02/18/21 02/18/21 02/18/21 10:00 11:00 14:00 Temperature Pulse Rate 57 L 57 L 63 Pulse Rate [ Left Radial] Respiratory 22 22 22 Rate Blood Pressure 137/61 138/50 159/61 O2 Sat by Pulse 100 100 98 Oximetry 02/18/21 02/18/21 02/18/21 17:42 18:32 19:02 Temperature Pulse Rate 65 71 67 Pulse Rate [ Left Radial] Respiratory 20 26 H 26 H Rate Blood Pressure 162/65 179/73 154/76 O2 Sat by Pulse 100 99 100 Oximetry 02/18/21 02/18/21 02/19/21 21:54 23:23 01:00 Temperature Pulse Rate 71 76 64 Pulse Rate [ Left Radial] Respiratory 20 18 20 Rate Blood Pressure 144/54 170/88 136/54 O2 Sat by Pulse 95 95 91 L Oximetry 02/19/21 02/19/21 02/19/21 02:00 02:55 03:56 Temperature Pulse Rate 69 54 L 54 L Pulse Rate [ Left Radial] Respiratory 20 20 20 Rate Blood Pressure 142/59 139/55 149/52 O2 Sat by Pulse 97 97 96 Oximetry 02/19/21 02/19/21 02/19/21 05:38 07:09 07:20 Temperature Pulse Rate 73 63 64 Pulse Rate [ Left Radial] Respiratory 20 20 20 Rate Blood Pressure 144/55 155/67 148/66 O2 Sat by Pulse 97 97 97 Oximetry 02/19/21 02/19/21 02/19/21 08:00 08:49 09:49 Temperature 97.6 F Pulse Rate 62 63 62 Pulse Rate [ Left Radial] Respiratory 21 18 18 Rate Blood Pressure 160/77 122/47 132/59 O2 Sat by Pulse 99 98 99 Oximetry 02/19/21 02/19/21 02/19/21 10:42 10:55 11:29 Temperature 98 F Pulse Rate 73 102 H 100 Pulse Rate [ Left Radial] Respiratory 18 16 16 Rate Blood Pressure 130/99 110/53 101/63 O2 Sat by Pulse 100 99 98 Oximetry 02/19/21 02/19/21 02/19/21 11:54 12:07 14:01 Temperature Pulse Rate 87 91 54 L Pulse Rate [ Left Radial] Respiratory 18 20 20 Rate Blood Pressure 134/61 112/64 115/54 O2 Sat by Pulse 97 97 97 Oximetry 02/19/21 02/19/21 02/19/21 15:29 16:40 16:55 Temperature 98.1 F Pulse Rate 54 L 53 L 54 L Pulse Rate [ Left Radial] Respiratory 20 Rate Blood Pressure 123/52 O2 Sat by Pulse 97 Oximetry 02/19/21 02/19/21 02/19/21 17:01 17:09 17:46 Temperature Pulse Rate 56 L 54 L 58 L Pulse Rate [ Left Radial] Respiratory 18 18 18 Rate Blood Pressure 126/59 124/59 124/63 O2 Sat by Pulse 96 96 97 Oximetry 02/19/21 02/19/21 02/19/21 18:45 19:00 19:06 Temperature Pulse Rate 60 59 L 57 L Pulse Rate [ Left Radial] Respiratory 18 16 Rate Blood Pressure 116/51 116/51 O2 Sat by Pulse 97 95 Oximetry 02/19/21 02/19/21 02/19/21 19:14 20:00 21:00 Temperature Pulse Rate 58 L 59 L 57 L Pulse Rate [ Left Radial] Respiratory 18 20 Rate Blood Pressure 106/49 125/54 O2 Sat by Pulse 96 97 Oximetry 02/19/21 02/19/21 02/20/21 22:00 23:00 00:00 Temperature Pulse Rate 56 L 54 L 56 L Pulse Rate [ Left Radial] Respiratory 12 20 19 Rate Blood Pressure 112/46 118/49 116/50 O2 Sat by Pulse 97 97 97 Oximetry 02/20/21 02/20/21 02/20/21 01:00 02:00 03:00 Temperature 97.4 F L Pulse Rate 53 L 54 L 53 L Pulse Rate [ Left Radial] Respiratory 16 20 20 Rate Blood Pressure 115/52 119/49 112/45 O2 Sat by Pulse 97 97 97 Oximetry 02/20/21 02/20/21 02/20/21 04:00 05:00 06:00 Temperature Pulse Rate 61 53 L 57 L Pulse Rate [ Left Radial] Respiratory 16 16 20 Rate Blood Pressure 113/45 129/50 130/49 O2 Sat by Pulse 98 96 97 Oximetry 02/20/21 07:00 Temperature Pulse Rate 54 L Pulse Rate [ Left Radial] Respiratory 16 Rate Blood Pressure 125/47 O2 Sat by Pulse 96 Oximetry Procedures - Sepsis Sepsis Focused Exam #1 Sepsis Focused Exam Date: 02/18/21 Sepsis Focused Exam Time: 07:00 Sepsis Focused Exam Complete: Yes Vital Signs & RN Notes Reviewed: Yes Peripheral Pulses: Normal: Radial (R) Skin Color: Flushed Respiratory Exam: rhonchi Cardiovascular Exam: regular rate, normal rhythm Medical Decision Making - Medical Decision Making Patient is an 85-year-old woman brought from correction by EMS. They were called for what sounds like acute onset of dyspnea. Patient has previous history of extensive crises/CHF. Suspect that patient went into respiratory failure just as EMS arrived and they intubated the patient. On arrival, patient is alert, follows examiner with her eyes and able to follow simple commands. Given the patient is intubated, sedation is provided. Differential diagnosis includes congestive heart failure exacerbation, pneumonia, among other diagnoses. The patient is given empiric antibiotics here and procalcitonin level is pending. Case D/W Dr. Ellison, who will see patient. Fluids based on ideal body weight During course here, patient did become hypotensive and started on Levophed. - Lab Data Result diagrams: 02/20/21 03:51 02/20/21 03:51 Lab Results 02/18/21 02/18/21 02/18/21 Range/Units 03:30 04:03 04:16 WBC 16.1 H (3.8-10.6) k/uL RBC 2.71 L (3.80-5.40) m/uL Hgb 7.9 L (11.4-16.0) gm/dL Hct 25.7 L (34.0-46.0) % MCV 94.8 (80.0-100.0) fL MCH 29.1 (25.0-35.0) pg MCHC 30.7 L (31.0-37.0) g/dL RDW 15.8 H (11.5-15.5) % Plt Count 176 D (150-450) k/uL MPV 8.6 Neutrophils % 84 % Lymphocytes % 10 % Monocytes % 3 % Eosinophils % 2 % Basophils % 1 % Neutrophils # 13.5 H (1.3-7.7) k/uL Lymphocytes # 1.5 (1.0-4.8) k/uL Monocytes # 0.5 (0-1.0) k/uL Eosinophils # 0.3 (0-0.7) k/uL Basophils # 0.1 (0-0.2) k/uL Hypochromasia Marked Poikilocytosis Slight PT (9.0-12.0) sec INR (<1.2) APTT (22.0-30.0) sec D-Dimer (<0.60) mg/L FEU Sample Site LRA ABG pH 7.42 (7.35-7.45) ABG pCO2 38 (35-45) mmHg ABG pO2 208 H (83-108) mmHg ABG HCO3 25 (21-25) mmol/L ABG Total CO2 26 H (19-24) mmol/L ABG O2 Saturation 100.0 H (94-97) % ABG Base Excess 0.6 mmol/L Brant Test Yes FiO2 100 % Sodium (137-145) mmol/L Potassium (3.5-5.1) mmol/L Chloride (98-107) mmol/L Carbon Dioxide (22-30) mmol/L Anion Gap mmol/L BUN (7-17) mg/dL Creatinine (0.52-1.04) mg/dL Est GFR (CKD-EPI)AfAm (>60 ml/min/1.73 sqM) Est GFR (CKD-EPI)NonAf (>60 ml/min/1.73 sqM) Glucose (74-99) mg/dL Lactic Ac Sepsis Rflx Plasma Lactic Acid [place] (0.7-2.0) mmol/L Calcium (8.4-10.2) mg/dL Magnesium (1.6-2.3) mg/dL Total Bilirubin (0.2-1.3) mg/dL AST (14-36) U/L ALT (4-34) U/L Alkaline Phosphatase (38-126) U/L Troponin I (0.000-0.034) ng/mL NT-Pro-B Natriuret Pep pg/mL Total Protein (6.3-8.2) g/dL Albumin (3.5-5.0) g/dL Procalcitonin (0.02-0.09) ng/mL Urine Color Urine Appearance (Clear) Urine pH (5.0-8.0) Ur Specific [place] (1.001-1.035) Urine Protein (Negative) Urine Glucose (UA) (Negative) Urine Ketones (Negative) Urine Blood (Negative) Urine Nitrite (Negative) Urine Bilirubin (Negative) Urine Urobilinogen (<2.0) mg/dL Ur Leukocyte Esterase (Negative) Urine RBC (0-5) /hpf Urine WBC (0-5) /hpf Ur Squamous Epith Cells (0-4) /hpf Amorphous Sediment (None) /hpf Urine Bacteria (None) /hpf Hyaline Casts (0-2) /lpf Urine Mucus (None) /hpf Coronavirus (PCR) Not Detected (Not Detectd) 02/18/21 02/18/21 02/18/21 Range/Units 04:16 04:16 04:16 WBC (3.8-10.6) k/uL RBC (3.80-5.40) m/uL Hgb (11.4-16.0) gm/dL Hct (34.0-46.0) % MCV (80.0-100.0) fL MCH (25.0-35.0) pg MCHC (31.0-37.0) g/dL RDW (11.5-15.5) % Plt Count (150-450) k/uL MPV Neutrophils % % Lymphocytes % % Monocytes % % Eosinophils % % Basophils % % Neutrophils # (1.3-7.7) k/uL Lymphocytes # (1.0-4.8) k/uL Monocytes # (0-1.0) k/uL Eosinophils # (0-0.7) k/uL Basophils # (0-0.2) k/uL Hypochromasia Poikilocytosis PT 11.2 (9.0-12.0) sec INR 1.1 (<1.2) APTT 20.1 L (22.0-30.0) sec D-Dimer 4.86 H (<0.60) mg/L FEU Sample Site ABG pH (7.35-7.45) ABG pCO2 (35-45) mmHg ABG pO2 (83-108) mmHg ABG HCO3 (21-25) mmol/L ABG Total CO2 (19-24) mmol/L ABG O2 Saturation (94-97) % ABG Base Excess mmol/L Brant Test FiO2 % Sodium 139 (137-145) mmol/L Potassium 4.0 (3.5-5.1) mmol/L Chloride 102 (98-107) mmol/L Carbon Dioxide 24 (22-30) mmol/L Anion Gap 13 mmol/L BUN 27 H (7-17) mg/dL Creatinine 1.19 H (0.52-1.04) mg/dL Est GFR (CKD-EPI)AfAm 48 (>60 ml/min/1.73 sqM) Est GFR (CKD-EPI)NonAf 42 (>60 ml/min/1.73 sqM) Glucose 248 H (74-99) mg/dL Lactic Ac Sepsis Rflx Plasma Lactic Acid [place] (0.7-2.0) mmol/L Calcium 8.5 (8.4-10.2) mg/dL Magnesium 2.1 (1.6-2.3) mg/dL Total Bilirubin 0.7 (0.2-1.3) mg/dL AST 22 (14-36) U/L ALT 13 (4-34) U/L Alkaline Phosphatase 87 (38-126) U/L Troponin I (0.000-0.034) ng/mL NT-Pro-B Natriuret Pep pg/mL Total Protein 5.8 L (6.3-8.2) g/dL Albumin 3.0 L (3.5-5.0) g/dL Procalcitonin (0.02-0.09) ng/mL Urine Color Yellow Urine Appearance Clear (Clear) Urine pH 5.5 (5.0-8.0) Ur Specific [place] 1.007 (1.001-1.035) Urine Protein 1+ H (Negative) Urine Glucose (UA) Negative (Negative) Urine Ketones Negative (Negative) Urine Blood Negative (Negative) Urine Nitrite Negative (Negative) Urine Bilirubin Negative (Negative) Urine Urobilinogen <2.0 (<2.0) mg/dL Ur Leukocyte Esterase Negative (Negative) Urine RBC 1 (0-5) /hpf Urine WBC 3 (0-5) /hpf Ur Squamous Epith Cells 4 (0-4) /hpf Amorphous Sediment Rare H (None) /hpf Urine Bacteria Rare H (None) /hpf Hyaline Casts 37 H (0-2) /lpf Urine Mucus Rare H (None) /hpf Coronavirus (PCR) (Not Detectd) 02/18/21 02/18/21 02/18/21 Range/Units 04:16 04:16 04:16 WBC (3.8-10.6) k/uL RBC (3.80-5.40) m/uL Hgb (11.4-16.0) gm/dL Hct (34.0-46.0) % MCV (80.0-100.0) fL MCH (25.0-35.0) pg MCHC (31.0-37.0) g/dL RDW (11.5-15.5) % Plt Count (150-450) k/uL MPV Neutrophils % % Lymphocytes % % Monocytes % % Eosinophils % % Basophils % % Neutrophils # (1.3-7.7) k/uL Lymphocytes # (1.0-4.8) k/uL Monocytes # (0-1.0) k/uL Eosinophils # (0-0.7) k/uL Basophils # (0-0.2) k/uL Hypochromasia Poikilocytosis PT (9.0-12.0) sec INR (<1.2) APTT (22.0-30.0) sec D-Dimer (<0.60) mg/L FEU Sample Site ABG pH (7.35-7.45) ABG pCO2 (35-45) mmHg ABG pO2 (83-108) mmHg ABG HCO3 (21-25) mmol/L ABG Total CO2 (19-24) mmol/L ABG O2 Saturation (94-97) % ABG Base Excess mmol/L Brant Test FiO2 % Sodium (137-145) mmol/L Potassium (3.5-5.1) mmol/L Chloride (98-107) mmol/L Carbon Dioxide (22-30) mmol/L Anion Gap mmol/L BUN (7-17) mg/dL Creatinine (0.52-1.04) mg/dL Est GFR (CKD-EPI)AfAm (>60 ml/min/1.73 sqM) Est GFR (CKD-EPI)NonAf (>60 ml/min/1.73 sqM) Glucose (74-99) mg/dL Lactic Ac Sepsis Rflx Plasma Lactic Acid [place] 5.7 H* (0.7-2.0) mmol/L Calcium (8.4-10.2) mg/dL Magnesium (1.6-2.3) mg/dL Total Bilirubin (0.2-1.3) mg/dL AST (14-36) U/L ALT (4-34) U/L Alkaline Phosphatase (38-126) U/L Troponin I 0.024 (0.000-0.034) ng/mL NT-Pro-B Natriuret Pep 2900 pg/mL Total Protein (6.3-8.2) g/dL Albumin (3.5-5.0) g/dL Procalcitonin (0.02-0.09) ng/mL Urine Color Urine Appearance (Clear) Urine pH (5.0-8.0) Ur Specific [place] (1.001-1.035) Urine Protein (Negative) Urine Glucose (UA) (Negative) Urine Ketones (Negative) Urine Blood (Negative) Urine Nitrite (Negative) Urine Bilirubin (Negative) Urine Urobilinogen (<2.0) mg/dL Ur Leukocyte Esterase (Negative) Urine RBC (0-5) /hpf Urine WBC (0-5) /hpf Ur Squamous Epith Cells (0-4) /hpf Amorphous Sediment (None) /hpf Urine Bacteria (None) /hpf Hyaline Casts (0-2) /lpf Urine Mucus (None) /hpf Coronavirus (PCR) (Not Detectd) 02/18/21 02/18/21 Range/Units 04:16 04:38 WBC (3.8-10.6) k/uL RBC (3.80-5.40) m/uL Hgb (11.4-16.0) gm/dL Hct (34.0-46.0) % MCV (80.0-100.0) fL MCH (25.0-35.0) pg MCHC (31.0-37.0) g/dL RDW (11.5-15.5) % Plt Count (150-450) k/uL MPV Neutrophils % % Lymphocytes % % Monocytes % % Eosinophils % % Basophils % % Neutrophils # (1.3-7.7) k/uL Lymphocytes # (1.0-4.8) k/uL Monocytes # (0-1.0) k/uL Eosinophils # (0-0.7) k/uL Basophils # (0-0.2) k/uL Hypochromasia Poikilocytosis PT (9.0-12.0) sec INR (<1.2) APTT (22.0-30.0) sec D-Dimer (<0.60) mg/L FEU Sample Site ABG pH (7.35-7.45) ABG pCO2 (35-45) mmHg ABG pO2 (83-108) mmHg ABG HCO3 (21-25) mmol/L ABG Total CO2 (19-24) mmol/L ABG O2 Saturation (94-97) % ABG Base Excess mmol/L Brant Test FiO2 % Sodium (137-145) mmol/L Potassium (3.5-5.1) mmol/L Chloride (98-107) mmol/L Carbon Dioxide (22-30) mmol/L Anion Gap mmol/L BUN (7-17) mg/dL Creatinine (0.52-1.04) mg/dL Est GFR (CKD-EPI)AfAm (>60 ml/min/1.73 sqM) Est GFR (CKD-EPI)NonAf (>60 ml/min/1.73 sqM) Glucose (74-99) mg/dL Lactic Ac Sepsis Rflx Y Plasma Lactic Acid [place] (0.7-2.0) mmol/L Calcium (8.4-10.2) mg/dL Magnesium (1.6-2.3) mg/dL Total Bilirubin (0.2-1.3) mg/dL AST (14-36) U/L ALT (4-34) U/L Alkaline Phosphatase (38-126) U/L Troponin I (0.000-0.034) ng/mL NT-Pro-B Natriuret Pep pg/mL Total Protein (6.3-8.2) g/dL Albumin (3.5-5.0) g/dL Procalcitonin 0.04 (0.02-0.09) ng/mL Urine Color Urine Appearance (Clear) Urine pH (5.0-8.0) Ur Specific [place] (1.001-1.035) Urine Protein (Negative) Urine Glucose (UA) (Negative) Urine Ketones (Negative) Urine Blood (Negative) Urine Nitrite (Negative) Urine Bilirubin (Negative) Urine Urobilinogen (<2.0) mg/dL Ur Leukocyte Esterase (Negative) Urine RBC (0-5) /hpf Urine WBC (0-5) /hpf Ur Squamous Epith Cells (0-4) /hpf Amorphous Sediment (None) /hpf Urine Bacteria (None) /hpf Hyaline Casts (0-2) /lpf Urine Mucus (None) /hpf Coronavirus (PCR) (Not Detectd) - EKG Data -: EKG Interpreted by Me EKG shows normal: sinus rhythm (Rate 78 bpm), intervals (QRS duration is prolonged at [address] interval 148 ms, normal. QTC 528 ms.), QRS complexes (L Bundle-branch block pattern) Rate: normal Critical Care Time Critical Care Time: Yes (30 minutes) Disposition Clinical Impression: Acute respiratory failure, Elevated d-dimer, Lactic acidosis, Leukocytosis Disposition: ADMITTED IP TO THIS HOSP Condition: Critical Is patient prescribed a controlled substance at d/c from ED?: No
[2021-02-18 04:13] LABS: ABG Base Excess 0.6 mmol/L; ABG HCO3 25 mmol/L (21-25); ABG PCO2 38 mmHg (35-45); ABG PH 7.42 (7.35-7.45); ABG PO2 208 mmHg (83-108); ABG TCO2 26 mmol/L (19-24); Allen Test Performed? Yes
[2021-02-18 04:24] LABS: Basophils # (A) 0.1 k/uL (0-0.2); Basophils % (A) 1 %; Eosinophils # (A) 0.3 k/uL (0-0.7); Eosinophils % (A) 2 %; HCT 25.7 % (34.0-46.0); HGB 7.9 gm/dL (11.4-16.0); Hypochromasia Marked; Lymphocytes # (A) 1.5 k/uL (1.0-4.8); Lymphocytes % (A) 10 %; MCH 29.1 pg (25.0-35.0); MCHC 30.7 g/dL (31.0-37.0); MCV 94.8 fL (80.0-100.0); Mean Platelet Volume 8.6; Monocytes # (A) 0.5 k/uL (0-1.0); Monocytes % (A) 3 %; Neutrophils # (A) 13.5 k/uL (1.3-7.7); Neutrophils % (A) 84 %; Poikilocytosis Slight; RBC 2.71 m/uL (3.80-5.40); RDW 15.8 % (11.5-15.5); WBC 16.1 k/uL (3.8-10.6)
[2021-02-18 04:29] LABS: Platelet Count 176 k/uL (150-450)
[2021-02-18 04:35] LABS: Calcium 8.5 mg/dL (8.4-10.2); Magnesium 2.1 mg/dL (1.6-2.3); Total Bilirubin 0.7 mg/dL (0.2-1.3); Total Protein 5.8 g/dL (6.3-8.2)
--- NOTE | 2021-02-18 04:40 | XR ---
EXAM: XR Chest, 1 View CLINICAL HISTORY: ITS.REASON XR Reason: dyspnea TECHNIQUE: Frontal view of the chest. COMPARISON: January 09, 2021 FINDINGS: Lungs: Extensive bilateral pulmonary infiltrates, much worse on the left. Infiltrates have significantly worsened relative to prior study. Pleural space: Unremarkable. No pneumothorax or pleural fluid. Heart: Unremarkable. No cardiomegaly. Mediastinum: Unremarkable. Bones/joints: No acute findings. Tubes, lines and devices: An endotracheal tube is present. The tip measures 1.9 cm above the justo on the image. A gastric tube is seen in stomach. IMPRESSION: Extensive bilateral pulmonary infiltrates, worse on the left.
[2021-02-18 04:47] LABS: INR 1.1 (<1.2); Prothrombin Time 11.2 sec (9.0-12.0)
[2021-02-18 04:51] LABS: Amorphous Sediment,Urine Rare /hpf; Appearance,Urine Clear (Clear); Bacteria,Urine Rare /hpf; Bilirubin,Urine Negative (Negative); Blood,Urine Negative (Negative); Color,Urine Yellow; Glucose,Urine (UA) Negative (Negative); Hyaline Casts,Urine 37 /lpf (0-2); Ketones,Urine Negative (Negative); Leukocyte Esterase,Urine Negative (Negative); Mucus,Urine Rare /hpf; Nitrite,Urine Negative (Negative); PH, Urine 5.5 (5.0-8.0); Protein,Urine 1+ (Negative); RBC,Urine 1 /hpf (0-5); Specific Gravity,Urine 1.007 (1.001-1.035); Squamous Epithelial Cell,Urine 4 /hpf (0-4); Urobilinogen,Urine <2.0 mg/dL (<2.0); WBC,Urine 3 /hpf (0-5)
[2021-02-18 04:52] LABS: D-Dimer 4.86 mg/L FEU (<0.60); Partial Thromboplastin Time 20.1 sec (22.0-30.0)
[2021-02-18] MEDS ORDERED: NOREPINEPHRINE 4 MG in SODIUM CHLORIDE 0.9% 250 ML IV ONE (05:03)
[2021-02-18] MEDS ORDERED: SODIUM CHLORIDE 0.9% 1,000 ML IV ONE (05:05)
[2021-02-18] MEDS ORDERED: SODIUM CHLORIDE 0.9% 500 ML 500 ML IV ONE (05:07)
[2021-02-18] MEDS ORDERED: PIPERACILLIN-TAZOBACTAM 3.375 GM in SODIUM CHLORIDE 0.9% 100 ML IVPB STA (05:58)
[2021-02-18] MEDS ORDERED: INSULIN REGULAR 100 UNIT/ML VIAL SQ STA (05:59)
[2021-02-18] MEDS ORDERED: NALOXONE 0.4 MG/ML 1 ML VIAL IV PRN (06:10)
[2021-02-18] MEDS ORDERED: ACETAMINOPHEN SUPPOSITORY 650 MG SUPP RECTAL PRN (06:10)
[2021-02-18] MEDS ORDERED: MORPHINE SULFATE 4 MG/ML SYRINGE IV PRN (06:10)
[2021-02-18] MEDS ORDERED: ACETAMINOPHEN TAB 325 MG TAB PO PRN (06:10)
[2021-02-18] MEDS ORDERED: ENOXAPARIN 40 MG/0.4 ML SYRINGE SQ STA (06:10)
[2021-02-18] MEDS: FAMOTIDINE 20 MG/2 ML VIAL IV SCH (11:30)
--- NOTE | 2021-02-18 15:09 | P.CNPUL ---
History of Present Illness Consult date: 02/18/21 Reason for consult: dyspnea, cough, hypoxemia, pneumonia Chief complaint: Progressive shortness of breath History of present illness: Patient is a 85-year-old [facility] resident brought into emergency department intubated on the field by EMS, she was having respiratory difficulties with argon of respiration, review of the records revealed that patient has a significant history of mood disorder depression hypertension and hypothyroidism, she has prior medical problems significant for atrial fibrillation not on any anticoagulation COPD heart failure dyslipidemia hypertension hypertensive cardiovascular disease and history of pulmonary hypertension history of stroke chronic kidney disease stage III, she used to smoke however stopped smoking several years ago, currently patient is on full ventilator support assist cont rol of 20 breathing 20, PEEP of 5, 50% oxygen, tidal volume is 450, patient is on propofol 30 mics, hemodynamic status is stable patient is on levo fed 0.025, blood pressure is improved to 159/61, heart rate 63 saturation is 98%, EKG revealed left bundle-branch block, labs are significant for leukocytosis with WBC count is 16,000, hemoglobin and hematocrit 7.9 and 25, platelet count is 1 76,000, d-dimer is 4.86, lactic acid is up to 5.7 now came down to 2.2, subsequent 1 is 1.2, BUN/creatinine 27 1.19, coated 19 is negative, patient has received a dose of Lovenox and Zosyn and fluid boluses 1.5 L Review of Systems ROS unobtainable: due to endotracheal tube Past Medical History Past Medical History: Atrial Fibrillation, Asthma, Cancer, Heart Failure, COPD, CVA/TIA, Eye Disorder, GERD/Reflux, GI Bleed, Hyperlipidemia, Hypertension, Osteoarthritis (OA), Pneumonia, Renal Disease, Skin Disorder, Thyroid Disorder, Vascular Disorder Additional Past Medical History / Comment(s): Lower GI bleed with acute blood loss anemia, thrombocytopenia, gastritis/duodenitis, 2001 colon cancer with s urgery/chemo and radiation, chronic hypoxic respiratory failure, home O2 at 2L/NC ATC, pulmonary HTN, pleurisy, chronic kidney disease stage III, CVA with slight speech difficulty, heart murmur, glaucoma bilaterally, hypothyroid, rosacia, UTIs, urine stress incontinence, constipation, diverticular disease, arthritis multiple joints, chronic low back pain, past fall with L hip fracture and R patellar fracture, rib fracture, L hmeral fracture with L shoulder pain, sinus problems, 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 Past Anesthesia/Blood Transfusion Reactions: No Reported Reaction Smoking Status: Former smoker - Past Family History Father Family Medical History: Liver Disease Additional Family Medical History / Comment(s): ETOH abuse - cirrhosis of the liver Mother Family Medical History: Vascular Disorder Additional Family Medical History / Comment(s): Brain aneurysm Medications and Allergies Home Medications Medication Instructions Recorded Confirmed Type Citalopram Hydrobromide [CeleXA] 20 mg PO DAILY 11/30/16 02/18/21 History rOPINIRole HCL [Requip] 2 mg PO HS 11/02/17 02/18/21 History Ferrous Sulfate [Feosol] 325 mg PO BID 12/25/18 02/18/21 History Ascorbic Acid [Vitamin C] 500 mg PO DAILY 12/16/20 02/18/21 History Latanoprost Ophth [Xalatan 0.005%] 1 drop BOTH EYES HS@199912/16/20 02/18/21 History Metoprolol Tartrate [Lopressor] 50 mg PO TID@0500,1300,2100 12/16/20 02/18/21 History Sennosides-Docusate Sodium 1 tab PO DAILY #1 tablet 12/22/20 02/18/21 Rx [Senokot-S] Aspirin 81 mg PO DAILY 01/06/21 02/18/21 History Levothyroxine Sodium [Synthroid] 112 mcg PO HS 01/06/21 02/18/21 History Losartan Potassium 100 mg PO DAILY 01/06/21 02/18/21 History Amiodarone [Cordarone] 200 mg PO DAILY tab 01/08/21 02/18/21 Rx Famotidine [Pepcid] 20 mg PO DAILY tab 01/09/21 02/18/21 Rx Furosemide [Lasix] 40 mg PO DAILY tab 01/09/21 02/18/21 Rx HYDROcodone/APAP 10-325MG [[place] 1 tab PO Q12H PRN #4 tab 01/09/21 02/18/21 Rx 10-325] Ipratropium-Albuterol Nebulize 3 ml INHALATION RT-Q4H PRN ml 01/09/21 02/18/21 Rx [Duoneb 0.5 mg-3 mg/3 ml Soln] Cholecalciferol [Vitamin D3 (25 25 mcg PO DAILY 02/18/21 02/18/21 History Mcg = 1000 Iu)] Spironolactone 25 mg PO DAILY 02/18/21 02/18/21 History traMADol HCl [Ultram] 50 mg PO Q6HR PRN 02/18/21 02/18/21 History Allergies Allergy/AdvReac Type Severity Reaction Status Date / Time codeine AdvReac does not Verified 02/18/21 06:[address] it makes her feel sulfamethoxazole AdvReac does not Verified 02/18/21 06:56 [From Bactrim] like the way it makes her feel trimethoprim [From Bactrim] AdvReac does not Verified 02/18/21 06:[address] it makes her feel Physical Exam Vitals: Vital Signs Temp Pulse Pulse Resp BP Pulse Ox 02/18/21 14:00 63 22 159/61 98 02/18/21 11:00 57 L 22 138/50 100 02/18/21 10:00 57 L 22 137/61 100 02/18/21 09:00 56 L 20 114/58 98 02/18/21 08:00 84 20 115/66 95 02/18/21 07:00 57 L 20 125/51 98 02/18/21 06:00 55 L 20 129/60 97 02/18/21 05:15 53 L 20 127/57 97 02/18/21 05:00 52 L 20 112/50 97 02/18/21 04:45 46 L 20 79/37 97 02/18/21 04:30 47 L 20 69/32 97 02/18/21 04:15 48 L 20 78/31 100 02/18/21 03:50 54 L 20 118/61 100 02/18/21 03:30 74 02/18/21 03:25 98.4 F 74 18 172/63 99 Intake and Output 04/08/0102/18/21 02/18/21 22:59 06:59 14:59 Intake Total 77.326 Balance 77.326 Intake: Intake, IV Titration 77.326 Amount propofoL 1,000 mg In 77.326 Empty Bag 1 bag @ Titrate IV .Q0M [facility] Rx#: [id number] Other: Weight 82 kg - Constitutional General appearance: average body habitus, disheveled - EENT Eyes: PERRLA Ears: bilateral: normal - Neck Neck: lymphadenopathy Carotids: bilateral: upstroke normal - Respiratory Respiratory: bilateral: diminished - Cardiovascular Rhythm: regular Heart sounds: normal: S1, S2 - Gastrointestinal General gastrointestinal: decreased bowel sounds, distended, soft - Neurologic Patient is intubated sedated on full ventilator support Results - Laboratory Findings CBC and BMP: 02/18/21 04:16 02/18/21 04:16 ABG ABG pH 7.42 (7.35-7.45) 02/18/21 04:03 ABG pCO2 38 mmHg (35-45) 02/18/21 04:03 ABG pO2 208 mmHg (83-108) H 02/18/21 04:03 ABG O2 Saturation 100.0 % (94-97) H 02/18/21 04:03 PT/INR, D-dimer PT 11.2 sec (9.0-12.0) 02/18/21 04:16 INR 1.1 (<1.2) 02/18/21 04:16 D-Dimer 4.86 mg/L FEU (<0.60) H 02/18/21 04:16 Abnormal lab findings: Abnormal Labs 02/18/21 02/18/21 02/18/21 04:03 04:16 04:16 WBC 16.1 H RBC 2.71 L Hgb 7.9 L Hct 25.7 L MCHC 30.7 L RDW 15.8 H Neutrophils # 13.5 H APTT 20.1 L D-Dimer 4.86 H ABG pO2 208 H ABG Total CO2 26 H ABG O2 Saturation 100.0 H BUN Creatinine Glucose Plasma Lactic Acid Onofre Total Protein Albumin Urine Protein Amorphous Sediment Urine Bacteria Hyaline Casts Urine Mucus 02/18/21 02/18/21 02/18/21 04:16 04:16 04:16 WBC RBC Hgb Hct MCHC RDW Neutrophils # APTT D-Dimer ABG pO2 ABG Total CO2 ABG O2 Saturation BUN 27 H Creatinine 1.19 H Glucose 248 H Plasma Lactic Acid Onofre 5.7 H* Total Protein 5.8 L Albumin 3.0 L Urine Protein 1+ H Amorphous Sediment Rare H Urine Bacteria Rare H Hyaline Casts 37 H Urine Mucus Rare H 02/18/21 07:40 WBC RBC Hgb Hct MCHC RDW Neutrophils # APTT D-Dimer ABG pO2 ABG Total CO2 ABG O2 Saturation BUN Creatinine Glucose Plasma Lactic Acid Onofre 2.2 H* Total Protein Albumin Urine Protein Amorphous Sediment Urine Bacteria Hyaline Casts Urine Mucus - Diagnostic Findings Chest x-ray: report reviewed, image reviewed (Finding as noted above) Assessment and Plan Assessment: Acute hypoxic respiratory failure Bilateral pneumonia Sepsis Chronic kidney disease Altered mental status due to sepsis and pneumonia Baseline history of chronic atrial fibrillation heart failure Testing covidr 19 has been negative Plan: Ventilator support, adjustment as needed Taper and DC the levo fed drip Echocardiogram Gentle rehydration Broad-spectrum antibiotics Bronchodilators IV steroids Rodriguez cultures DVT prophylaxis with Lovenox Further plan of care and recommendation as per clinical response of the patient Time with Patient: Greater than 30
[2021-02-18 15:14] LABS: Glucose,Whole Blood 97 mg/dL (75-99)
[2021-02-18] MEDS: INSULIN ASPART (NovoLOG) 100 UNIT/ML VIAL SQ SCH ×2 (15:34→17:43)
[2021-02-18 17:53] LABS: Appearance,Urine Clear (Clear); Bilirubin,Urine Negative (Negative); Blood,Urine Negative (Negative); Color,Urine Yellow; Glucose,Urine (UA) Negative (Negative); Hyaline Casts,Urine 3 /lpf (0-2); Ketones,Urine Negative (Negative); Leukocyte Esterase,Urine Trace (Negative); Mucus,Urine Rare /hpf; Nitrite,Urine Negative (Negative); Protein,Urine Trace (Negative); RBC,Urine 2 /hpf (0-5); Specific Gravity,Urine 1.016 (1.001-1.035); Squamous Epithelial Cell,Urine <1 /hpf (0-4); Urobilinogen,Urine <2.0 mg/dL (<2.0); WBC,Urine 6 /hpf (0-5)
[2021-02-18] MEDS: IPRATROPIUM-ALBUTEROL 3 ML NEB INHALATION SCH (19:23)
[2021-02-18] MEDS: PIPERACILLIN-TAZOBACTAM 3.375 GM in SODIUM CHLORIDE 0.9% 100 ML IVPB SCH (19:54)
--- NOTE | 2021-02-18 20:26 | P.HPIM ---
History of Present Illness H&P Date: 02/18/21 Chief Complaint: Short of breath history of present complaint: This is a very pleasant 85-year-old patient of Dr. Maya. Currently at [facility]. Chronic stable medical conditions include COPD, paroxysmal atrial fibrillation, hypertension, hyperlipidemia, GERD, osteoarthritis, secondary pulmonary hypertension, hypothyroid, rosacea, osteoarthritis, urine stress incontinence,CHF from diastolic dysfunction EF 55- 60%, severe mitral regurgitation, moderate mitral stenosis, moderate tricuspid regurgitation, secondary pulmonary hypertension. Diverticulosis. at her baseline uses a cane and a walker. EMS was called out as patient had been lethargic all day. Patient is complaining that she is not feeling well. One hour prior to the EMS arrival patient became increasingly short of breath. Patient at baseline is 3 L of nasal cannula. And patient became less responsive and breathing worsen. 4 days ago patient had a negative COVID testing. When EMS arrived patient's found to have agonal respiration. Telemetry showed sinus rhythm. Patient is intubated. This afternoon patient has FiO2 15 of PEEP of 5. Drips included propofol and norepinephrine. Telemetry shows sinus rhythm. Review of systems: Could not obtain patient intubated Past medical history: Right adnexa growth being followed as an outpatient, COPD, paroxysmal atrial fibrillation, hypertension, hyperlipidemia, COPD, GERD, primary osteoarthritis, colon cancer in 2001, secondary pulmonary hypertension, hypothyroid, rosacea, urinary stress incontinence, osteoarthritis chronic diverticulosis, gastritis duodenitis, colon cancer treated with surgery chemoradiation, home oxygen 2 L, chronic kidney disease stage III, stroke with some speech impairment, hypothyroid,chronic congestive heart failure from diastolic dysfunction EF 55- 60%, severe mitral regurgitation, moderate mitral stenosis, moderate tricuspid regurgitation., chronic thrombocytopenia Social history: At [facility] Smoked for 20 years, stopped in 1986, smoked a pack and half Physical examination: VITAL SIGNS: Afebrile, 63, 22, 159/61, 98% on the ventilator GENERAL: Laying in bed, intubated EYES: Pupils equal. Conjunctiva patient HEENT: External appearance of nose and ears normal, oral cavity ET tube, OG tube NECK: JVD unable to assess; masses not palpable. HEART: First and second heart sounds are normal; edema present LUNGS: Respiratory rate increased, decreased breaths, respiratory rate 20 crackles ABDOMEN: Soft, nontender, liver spleen not palpable, no masses palpable. PSYCH: Patient sedated. EXTREMITIES: Missing right hand fingers, except thumb INVESTIGATIONS, reviewed in the clinical context: WBC 16.1 hemoglobin 7.9 platelets 176 d-dimer 4.86 ABG pH 7.4 pCO2 38 pO2 208 potassium 4 bun 27 creatinine 1.19 Lactic acid 5.7 and repeat 2.2 proBNP 2900 procalcitonin 0.04 UA showing 1+ protein Coronavirus [PCR] not detected EKG tracing personally reviewed by me-sinus rhythm, left bundle-branch block Chest x-ray film personally reviewed by me-bilateral extensive pulmonary infiltrates assessment: -This is a patient not feeling well for 24 hours with progressive shortness of breath and then respiratory distress and arrest. Has bilateral infiltrates on the chest x-ray. COVID 19 was negative. There is no fever, the patient has elevated white count with a left shift. Likely bilateral gram-negative pneumonia. Started on IV Zosyn. Pulmonary consulted -Acute hypoxic respiratory failure, patient went into respiratory arrest On ventilator support. FiO2 15 a PEEP of -chronic congestive heart failure exacerbation, from diastolic dysfunction EF 55-60%, Follow clinically -Acute COPD exacerbation in an ex-smoker- bronchodilators, IV steroids, -Severe mitral regurgitation, moderate mitral stenosis, moderate tricuspid regurgitation Follow clinically -Secondary moderate pulmonary hypertension from COPD and CHF Follow clinically -Essential hypertension- continue beta amara. Amlodipine added -GERD- use PPI -Primary osteoarthritis- use analgesics when necessary -Hypothyroid- continue Synthroid -Chronic urinary stress incontinence- Doll catheter -Chronic diverticulosis- Follow clinically -Chronic gait dysfunction uses walker -Left bundle-branch block, chronic Telemetry -Paroxysmal atrial fibrillation, currently sinus rhythm. Prognosis guarded. Elevated d-dimer. I'll order CT angio rule out PE. Past Medical History Past Medical History: Atrial Fibrillation, Asthma, Cancer, Heart Failure, COPD, CVA/TIA, Eye Disorder, GERD/Reflux, GI Bleed, Hyperlipidemia, Hypertension, Osteoarthritis (OA), Pneumonia, Renal Disease, Skin Disorder, Thyroid Disorder, Vascular Disorder Additional Past Medical History / Comment(s): Lower GI bleed with acute blood loss anemia, thrombocytopenia, gastritis/duodenitis, 2002 colon cancer with surgery/chemo and radiation, chronic hypoxic respiratory failure, home O2 at 2L/NC ATC, pulmonary HTN, pleurisy, chronic kidney disease stage III, CVA with slight speech difficulty, heart murmur, glaucoma bilaterally, hypothyroid, rosacia, UTIs, urine stress incontinence, constipation, diverticular disease, arthritis multiple joints, chronic low back pain, past fall with L hip fracture and R patellar fracture, rib fracture, L hmeral fracture with L shoulder pain, sinus problems, 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 Past Anesthesia/Blood Transfusion Reactions: No Reported Reaction Smoking Status: Former smoker - Past Family History Father Family Medical History: Liver Disease Additional Family Medical History / Comment(s): ETOH abuse - cirrhosis of the liver Mother Family Medical History: Vascular Disorder Additional Family Medical History / Comment(s): Brain aneurysm Medications and Allergies Home Medications Medication Instructions Recorded Confirmed Type Citalopram Hydrobromide [CeleXA] 20 mg PO DAILY 11/30/16 02/18/21 History rOPINIRole HCL [Requip] 2 mg PO HS 11/02/17 02/18/21 History Ferrous Sulfate [Feosol] 325 mg PO BID 12/25/18 02/18/21 History Ascorbic Acid [Vitamin C] 500 mg PO DAILY 12/16/20 02/18/21 History Latanoprost Ophth [Xalatan 0.005%] 1 drop BOTH EYES HS@199912/16/20 02/18/21 History Metoprolol Tartrate [Lopressor] 50 mg PO TID@0500,1300,2100 12/16/20 02/18/21 History Sennosides-Docusate Sodium 1 tab PO DAILY #1 tablet 12/22/20 02/18/21 Rx [Senokot-S] Aspirin 81 mg PO DAILY 01/06/21 02/18/21 History Levothyroxine Sodium [Synthroid] 112 mcg PO HS 01/06/21 02/18/21 History Losartan Potassium 100 mg PO DAILY 01/06/21 02/18/21 History Amiodarone [Cordarone] 200 mg PO DAILY tab 01/08/21 02/18/21 Rx Famotidine [Pepcid] 20 mg PO DAILY tab 01/09/21 02/18/21 Rx Furosemide [Lasix] 40 mg PO DAILY tab 01/09/21 02/18/21 Rx HYDROcodone/APAP 10-325MG [[place] 1 tab PO Q12H PRN #4 tab 01/09/21 02/18/21 Rx 10-325] Ipratropium-Albuterol Nebulize 3 ml INHALATION RT-Q4H PRN ml 01/09/21 02/18/21 Rx [Duoneb 0.5 mg-3 mg/3 ml Soln] Cholecalciferol [Vitamin D3 (25 25 mcg PO DAILY 02/18/21 02/18/21 History Mcg = 1000 Iu)] Spironolactone 25 mg PO DAILY 02/18/21 02/18/21 History traMADol HCl [Ultram] 50 mg PO Q6HR PRN 02/18/21 02/18/21 History Allergies Allergy/AdvReac Type Severity Reaction Status Date / Time codeine AdvReac does not Verified 02/18/21 06:[address] it makes her feel sulfamethoxazole AdvReac does not Verified 02/18/21 06:56 [From Bactrim] like the way it makes her feel trimethoprim [From Bactrim] AdvReac does not Verified 02/18/21 06:[address] it makes her feel Physical Exam Vitals: Vital Signs Temp Pulse Pulse Resp BP Pulse Ox 02/18/21 09:00 56 L 20 114/58 98 02/18/21 08:00 84 20 115/66 95 02/18/21 07:00 57 L 20 125/51 98 02/18/21 06:00 55 L 20 129/60 97 02/18/21 05:15 53 L 20 127/57 97 02/18/21 05:00 52 L 20 112/50 97 02/18/21 04:45 46 L 20 79/37 97 02/18/21 04:30 47 L 20 69/32 97 02/18/21 04:15 48 L 20 78/31 100 02/18/21 03:50 54 L 20 118/61 100 02/18/21 03:30 74 02/18/21 03:25 98.4 F 74 18 172/63 99 Intake and Output 02/17/21 02/18/21 02/18/21 22:59 06:59 14:59 Intake Total 17.466 Balance 17.466 Intake: Intake, IV Titration 17.466 Amount propofoL 1,000 mg In 17.466 Empty Bag 1 bag @ Titrate IV .Q0M [facility] Rx#: [id number] Other: Weight 82 kg Results CBC & Chem 7: 02/18/21 04:16 02/18/21 04:16 Labs: Abnormal Lab Results - Last 24 Hours (Table) 02/18/21 02/18/21 02/18/21 Range/Units 04:03 04:16 04:16 WBC 16.1 H (3.8-10.6) k/uL RBC 2.71 L (3.80-5.40) m/uL Hgb 7.9 L (11.4-16.0) gm/dL Hct 25.7 L (34.0-46.0) % MCHC 30.7 L (31.0-37.0) g/dL RDW 15.8 H (11.5-15.5) % Neutrophils # 13.5 H (1.3-7.7) k/uL APTT 20.1 L (22.0-30.0) sec D-Dimer 4.86 H (<0.60) mg/L FEU ABG pO2 208 H (83-108) mmHg ABG Total CO2 26 H (19-24) mmol/L ABG O2 Saturation 100.0 H (94-97) % BUN (7-17) mg/dL Creatinine (0.52-1.04) mg/dL Glucose (74-99) mg/dL Plasma Lactic Acid Onofre (0.7-2.0) mmol/L Total Protein (6.3-8.2) g/dL Albumin (3.5-5.0) g/dL Urine Protein (Negative) Amorphous Sediment (None) /hpf Urine Bacteria (None) /hpf Hyaline Casts (0-2) /lpf Urine Mucus (None) /hpf 02/18/21 02/18/21 02/18/21 Range/Units 04:16 04:16 04:16 WBC (3.8-10.6) k/uL RBC (3.80-5.40) m/uL Hgb (11.4-16.0) gm/dL Hct (34.0-46.0) % MCHC (31.0-37.0) g/dL RDW (11.5-15.5) % Neutrophils # (1.3-7.7) k/uL APTT (22.0-30.0) sec D-Dimer (<0.60) mg/L FEU ABG pO2 (83-108) mmHg ABG Total CO2 (19-24) mmol/L ABG O2 Saturation (94-97) % BUN 27 H (7-17) mg/dL Creatinine 1.19 H (0.52-1.04) mg/dL Glucose 248 H (74-99) mg/dL Plasma Lactic Acid Onofre 5.7 H* (0.7-2.0) mmol/L Total Protein 5.8 L (6.3-8.2) g/dL Albumin 3.0 L (3.5-5.0) g/dL Urine Protein 1+ H (Negative) Amorphous Sediment Rare H (None) /hpf Urine Bacteria Rare H (None) /hpf Hyaline Casts 37 H (0-2) /lpf Urine Mucus Rare H (None) /hpf 02/18/21 Range/Units 07:40 WBC (3.8-10.6) k/uL RBC (3.80-5.40) m/uL Hgb (11.4-16.0) gm/dL Hct (34.0-46.0) % MCHC (31.0-37.0) g/dL RDW (11.5-15.5) % Neutrophils # (1.3-7.7) k/uL APTT (22.0-30.0) sec D-Dimer (<0.60) mg/L FEU ABG pO2 (83-108) mmHg ABG Total CO2 (19-24) mmol/L ABG O2 Saturation (94-97) % BUN (7-17) mg/dL Creatinine (0.52-1.04) mg/dL Glucose (74-99) mg/dL Plasma Lactic Acid Onofre 2.2 H* (0.7-2.0) mmol/L Total Protein (6.3-8.2) g/dL Albumin (3.5-5.0) g/dL Urine Protein (Negative) Amorphous Sediment (None) /hpf Urine Bacteria (None) /hpf Hyaline Casts (0-2) /lpf Urine Mucus (None) /hpf
[2021-02-19] MEDS: IPRATROPIUM-ALBUTEROL 3 ML NEB INHALATION SCH ×5 (00:04→19:05)
--- NOTE | 2021-02-19 00:17 | CT ---
EXAMINATION TYPE: CT angio chest DATE OF EXAM: 02/19/2021 COMPARISON: HISTORY: pe CT DLP: 507.4 mGycm Automated exposure control for dose reduction was used. CONTRAST: Performed with IV Contrast, patient injected with 60 mL of Isovue 370. Images obtained from the thoracic inlet to the diaphragm with IV contrast and 3-D post processed imag es. There is extensive patchy airspace infiltrate in both lungs. There is bilateral pleural effusions. Th ere is consolidation and atelectasis in the right lower lobe. There is slight elevated right diaphrag m. Heart is enlarged. There is no pericardial effusion. There are multiple hypodense areas in the vinay er that are probably fluid density and could be multiple cysts. These are probably not changed signif icantly compared to old exam. There are multiple mediastinal lymph nodes measuring up to 1.5 cm. There is endotracheal tube. There is nasogastric tube in the stomach. I see no evidence of filling defect in the pulmonary arteries. There is some spurring in the thoracic spine. There is T11 compression fracture of 50%. Fractures probably old. IMPRESSION: No evidence of pulmonary embolism. Extensive pulmonary airspace consolidation and atelectasis. Bilate ral pleural effusions. Lung disease is mostly new compared to old exam. Heart is increased compared t o old exam. Congestive heart failure is possible. Compression fracture of T11 not changed compared to chest x-ray 01/09/2021.
[2021-02-19] MEDS: INSULIN ASPART (NovoLOG) 100 UNIT/ML VIAL SQ SCH ×5 (01:59→22:43)
[2021-02-19] MEDS: DOXYCYCLINE 100 MG CAP PO SCH ×3 (01:59→22:43)
[2021-02-19] MEDS: LATANOPROST 0.005% OPHTH DROPS 2.5 ML BTL BOTH EYES SCH ×2 (01:59→20:13)
[2021-02-19] MEDS: LOSARTAN 50 MG TAB PO SCH ×3 (01:59→11:25)
[2021-02-19] MEDS: LEVOTHYROXINE 112 MCG TAB OG-TUBE SCH ×2 (02:00→22:44)
[2021-02-19] MEDS: methylPREDNISolone SOD SUCCI 40 MG/ML 1 ML VIAL IV SCH ×3 (02:00→21:54)
[2021-02-19] MEDS: METOPROLOL TARTRATE 50 MG TAB PO SCH ×4 (02:00→21:34)
[2021-02-19] MEDS: PIPERACILLIN-TAZOBACTAM 3.375 GM in SODIUM CHLORIDE 0.9% 100 ML IVPB SCH ×4 (02:12→21:57)
[2021-02-19 05:57] LABS: Anisocytosis Slight; Basophils # (A) 0.1 k/uL (0-0.2); Basophils % (A) 0 %; Eosinophils # (A) 0.2 k/uL (0-0.7); Eosinophils % (A) 2 %; HCT 25.2 % (34.0-46.0); HGB 7.4 gm/dL (11.4-16.0); Hypochromasia Marked; Lymphocytes # (A) 2.1 k/uL (1.0-4.8); Lymphocytes % (A) 18 %; MCH 27.9 pg (25.0-35.0); MCHC 29.4 g/dL (31.0-37.0); Mean Platelet Volume 8.6; Monocytes # (A) 0.6 k/uL (0-1.0); Monocytes % (A) 5 %; Neutrophils # (A) 8.9 k/uL (1.3-7.7); Neutrophils % (A) 75 %; Platelet Count 122 k/uL (150-450); Poikilocytosis Slight; RBC 2.65 m/uL (3.80-5.40); RDW 16.3 % (11.5-15.5)
[2021-02-19 06:12] LABS: ABG Base Excess 3.3 mmol/L; ABG HCO3 27 mmol/L (21-25); ABG Oxygen Saturation 98.4 % (94-97); ABG PCO2 36 mmHg (35-45); ABG PH 7.48 (7.35-7.45); ABG PO2 89 mmHg (83-108); ABG TCO2 28 mmol/L (19-24); Allen Test Performed? Yes
[2021-02-19 06:14] LABS: Albumin 2.5 g/dL (3.5-5.0); Calcium 7.9 mg/dL (8.4-10.2); Potassium 3.2 mmol/L (3.5-5.1); Total Protein 5.2 g/dL (6.3-8.2)
[2021-02-19] MEDS ORDERED: Potassium Replacement Protocol 1 EACH MISC MISCELLANE PRN (06:23)
[2021-02-19] MEDS: NOREPINEPHRINE 4 MG in SODIUM CHLORIDE 0.9% 250 ML IV SCH ×2 (06:27→22:44)
[2021-02-19] MEDS: POTASSIUM CHLORIDE 10 MEQ in WATER FOR INJECTION 1 100ML.BAG IVPB SCH ×4 (07:15→13:41)
[2021-02-19 08:26] LABS: Glucose,Whole Blood 129 mg/dL (75-99)
[2021-02-19] MEDS ORDERED: FUROSEMIDE 40 MG TAB PO SCH (09:00)
[2021-02-19] MEDS: FAMOTIDINE 20 MG/2 ML VIAL IV SCH ×2 (11:06→21:53)
[2021-02-19] MEDS: SENNOSIDES-DOCUSATE SODIUM 1 EACH TAB PO SCH (11:12)
[2021-02-19] MEDS: AMIODARONE 200 MG TAB PO SCH (11:25)
--- NOTE | 2021-02-19 11:28 | P.CRDCN ---
History of Present Illness Consult date: 02/19/21 History of present illness: This is an 85-year-old female patient with consulted to see in the emergency department for further cardiac evaluation of cardiopulmonary arrest. The patient currently is intubated and she is on mechanical ventilation. The history was primarily was obtained from the chart as well as from the nurse taking care of the patient. The patient is an 85-year-old female patient with history of paroxysmal atrial fibrillation not on oral anticoagulation at home, valvular heart disease and known moderate to severe mitral regurgitation as well as moderate mitral stenosis, history of chronic obstructive pulmonary disease, as well as multiple comorbid condition. She was brought from an [facility] to the emergency department after she was intubated on the field by ambulance. She was having some respiratory distress and because of that the patient was intubated. When the patient arrived to the emergency department she was hypotensive requiring norepinephrine. No indication that the patient was experiencing any symptoms of chest pain or chest discomfort around the episode. No indication that she was experiencing any symptoms of heart racing or fluttering or any dizziness or lightheadedness. No prior history of syncope in the past. The EKG when the patient arrived to the emergency department showed sinus rhythm with LBBB. The first troponin came in to be unremarkable. The chest x-ray did not show any acute abnormalities. The computed tomography scan of the chest did not show any evidence of pulmonary embolism. WBC was 16,000. The hemoglobin was 7.9. Lactic acid was elevated up to 5.7. The patient was seen by our service recently for further evaluation of shortness of breath and at that point an echocardiogram was performed and that revealed normal function with valvular heart disease mainly mitral valve with evidence of moderate to severe mitral regurgitation as well as moderate mitral stenosis. Past Medical History Past Medical History: Atrial Fibrillation, Asthma, Cancer, Heart Failure, COPD, CVA/TIA, Eye Disorder, GERD/Reflux, GI Bleed, Hyperlipidemia, Hypertension, Osteoarthritis (OA), Pneumonia, Renal Disease, Skin Disorder, Thyroid Disorder, Vascular Disorder Additional Past Medical History / Comment(s): Lower GI bleed with acute blood loss anemia, thrombocytopenia, gastritis/duodenitis, 2002 colon cancer with surgery/chemo and radiation, chronic hypoxic respiratory failure, home O2 at 2L/NC ATC, pulmonary HTN, pleurisy, chronic kidney disease stage III, CVA with slight speech difficulty, heart murmur, glaucoma bilaterally, hypothyroid, rosacia, UTIs, urine stress incontinence, constipation, diverticular disease, arthritis multiple joints, chronic low back pain, past fall with L hip fracture and R patellar fracture, rib fracture, L hmeral fracture with L shoulder pain, sinus problems, 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 Past Anesthesia/Blood Transfusion Reactions: No Reported Reaction Smoking Status: Former smoker - Past Family History Father Family Medical History: Liver Disease Additional Family Medical History / Comment(s): ETOH abuse - cirrhosis of the liver Mother Family Medical History: Vascular Disorder Additional Family Medical History / Comment(s): Brain aneurysm Medications and Allergies Home Medications Medication Instructions Recorded Confirmed Type Citalopram Hydrobromide [CeleXA] 20 mg PO DAILY 11/30/16 02/18/21 History rOPINIRole HCL [Requip] 2 mg PO HS 11/02/17 02/18/21 History Ferrous Sulfate [Feosol] 325 mg PO BID 12/25/18 02/18/21 History Ascorbic Acid [Vitamin C] 500 mg PO DAILY 12/16/20 02/18/21 History Latanoprost Ophth [Xalatan 0.005%] 1 drop BOTH EYES HS@199912/16/20 02/18/21 History Metoprolol Tartrate [Lopressor] 50 mg PO TID@0500,1300,2100 12/16/20 02/18/21 History Sennosides-Docusate Sodium 1 tab PO DAILY #1 tablet 12/22/20 02/18/21 Rx [Senokot-S] Aspirin 81 mg PO DAILY 01/06/21 02/18/21 History Levothyroxine Sodium [Synthroid] 112 mcg PO HS 01/06/21 02/18/21 History Losartan Potassium 100 mg PO DAILY 01/06/21 02/18/21 History Amiodarone [Cordarone] 200 mg PO DAILY tab 01/08/21 02/18/21 Rx Famotidine [Pepcid] 20 mg PO DAILY tab 01/09/21 02/18/21 Rx Furosemide [Lasix] 40 mg PO DAILY tab 01/09/21 02/18/21 Rx HYDROcodone/APAP 10-325MG [[place] 1 tab PO Q12H PRN #4 tab 01/09/21 02/18/21 Rx 10-325] Ipratropium-Albuterol Nebulize 3 ml INHALATION RT-Q4H PRN ml 01/09/21 02/18/21 Rx [Duoneb 0.5 mg-3 mg/3 ml Soln] Cholecalciferol [Vitamin D3 (25 25 mcg PO DAILY 02/18/21 02/18/21 History Mcg = 1000 Iu)] Spironolactone 25 mg PO DAILY 02/18/21 02/18/21 History traMADol HCl [Ultram] 50 mg PO Q6HR PRN 02/18/21 02/18/21 History Allergies Allergy/AdvReac Type Severity Reaction Status Date / Time codeine AdvReac does not Verified 02/18/21 06:[address] it makes her feel sulfamethoxazole AdvReac does not Verified 02/18/21 06:56 [From Bactrim] like the way it makes her feel trimethoprim [From Bactrim] AdvReac does not Verified 02/18/21 06:[address] it makes her feel Physical Exam Vitals: Vital Signs Temp Pulse Resp BP Pulse Ox 02/19/21 10:55 98 F 102 H 16 110/53 99 02/19/21 10:42 73 18 130/99 100 02/19/21 09:49 62 18 132/59 99 02/19/21 08:49 63 18 122/47 98 02/19/21 08:00 64 20 137/61 96 02/19/21 07:20 64 20 148/66 97 02/19/21 07:09 63 20 155/67 97 02/19/21 05:38 73 20 144/55 97 02/19/21 03:56 54 L 20 149/52 96 02/19/21 02:55 54 L 20 139/55 97 02/19/21 02:00 69 20 142/59 97 02/19/21 01:00 64 20 136/54 91 L 02/18/21 23:23 76 18 170/88 95 02/18/21 21:54 71 20 144/54 95 02/18/21 19:02 67 26 H 154/76 100 02/18/21 18:32 71 26 H 179/73 99 02/18/21 17:42 65 20 162/65 100 02/18/21 14:00 63 22 159/61 98 Intake and Output 02/18/21 02/19/21 02/19/21 22:59 06:59 14:59 Intake Total 80.196 413.305 30.808 Output Total 840 Balance 80.196 -426.695 30.808 Intake: Intake, IV Titration 80.196 413.305 30.808 Amount Norepinephrine 4 mg In 45 Sodium Chloride 0.9% 250 ml @ 0.05 MCG/KG/MIN 15. 621 mls/hr IV .[id number] [facility] Rx#:[id number] Norepinephrine 4 mg In 14.736 Sodium Chloride 0.9% 250 ml @ 0.05 MCG/KG/MIN 15. 621 mls/hr IV .[id number] [facility] Rx#:[id number] Piperacillin-Tazobactam 3 200 .375 gm In Sodium Chloride 0.9% 100 ml @ 25 mls/hr IVPB Q8HR [facility] Rx# :[id number] propofoL 1,000 mg In 80.196 168.305 16.072 Empty Bag 1 bag @ Titrate IV .Q0M [facility] Rx#: [id number] Oral 0 Output: Urine 840 - Constitutional General appearance: no acute distress - Respiratory Respiratory: bilateral: diminished - Cardiovascular Rhythm: regular Heart sounds: normal: S1, S2 Abnormal Heart Sounds: systolic murmur Results 02/19/21 05:29 02/19/21 05:29 Cardiac Enzymes 02/19/21 Range/Units 05:29 AST 46 H (14-36) U/L CBC 02/19/21 Range/Units 05:29 WBC 12.0 H (3.8-10.6) k/uL RBC 2.65 L (3.80-5.40) m/uL Hgb 7.4 L (11.4-16.0) gm/dL Hct 25.2 L (34.0-46.0) % Plt Count 122 L (150-450) k/uL Comprehensive Metabolic Panel 02/19/21 Range/Units 05:29 Sodium 141 (137-145) mmol/L Potassium 3.2 L (3.5-5.1) mmol/L Chloride 111 H (98-107) mmol/L Carbon Dioxide 24 (22-30) mmol/L BUN 20 H (7-17) mg/dL Creatinine 1.03 (0.52-1.04) mg/dL Glucose 111 H (74-99) mg/dL Calcium 7.9 L (8.4-10.2) mg/dL AST 46 H (14-36) U/L ALT 14 (4-34) U/L Alkaline Phosphatase 74 (38-126) U/L Total Protein 5.2 L (6.3-8.2) g/dL Albumin 2.5 L (3.5-5.0) g/dL Current Medications Generic Name Dose Route Start Last Admin Trade Name Freq PRN Reason Stop Dose Admin Acetaminophen 650 mg 02/18/21 06:10 Acetaminophen Suppository 650 Mg Supp RECTAL Q4HR PRN Fever And/ Or Mild Pain Acetaminophen 650 mg 02/18/21 06:10 Acetaminophen Tab 325 Mg Tab PO Q4HR PRN Fever and/or Mild Pain Albuterol/Ipratropium 3 ml 02/18/21 16:00 02/19/21 00:04 Ipratropium-Albuterol 3 Ml Neb INHALATION Not Given RT-QID [facility] Amiodarone HCl 200 mg 02/19/21 09:00 Amiodarone 200 Mg Tab PO DAILY [facility] Doxycycline Monohydrate 100 mg 02/18/21 21:00 02/19/21 11:06 Doxycycline 100 Mg Cap PO Not Given BID [facility] Enoxaparin Sodium 40 mg 02/19/21 09:00 Enoxaparin 40 Mg/0.4 Ml Syringe SQ DAILY [facility] Famotidine 20 mg 02/18/21 09:00 02/19/21 11:06 Famotidine 20 Mg/2 Ml Vial IV 20 mg Q24HR [facility] Administration Furosemide 40 mg 02/19/21 09:00 02/19/21 11:12 Furosemide 40 Mg Tab PO Not Given DAILY [facility] Propofol 1,000 mg/ IV Solution 100 mls @ 0 mls/hr 02/18/21 03:45 02/19/21 07:17 IV 40 mcg/kg/min .Q0M [facility] 19.68 mls/hr Administration Protocol Titrate Piperacillin Sod/Tazobactam 100 mls @ 25 mls/hr 02/18/21 16:00 02/19/21 08:05 Sod 3.375 gm/ Sodium Chloride IVPB 25 mls/hr Q8HR [facility] Administration Norepinephrine Bitartrate 4 mg 254 mls @ 15.621 mls/hr 02/19/21 05:45 02/19/21 08:51 / Sodium Chloride IV 0.01 mcg/kg/min .[id number] [facility] 3.124 mls/hr Titration Protocol 0.05 MCG/KG/MIN Insulin Aspart 0 unit 02/18/21 07:30 02/19/21 08:26 Insulin Aspart (Novolog) 100 Unit/Ml Vial SQ Not Given ACHS [facility] Protocol Latanoprost 1 drops 02/18/21 20:00 02/19/21 01:59 Latanoprost 0.005% Ophth Drops 2.5 Ml Btl BOTH EYES Not Given HS@2000 [facility] Levothyroxine Sodium 112 mcg 02/18/21 21:00 02/19/21 02:00 Levothyroxine 112 Mcg Tab OG-TUBE Not Given HS [facility] Losartan Potassium 100 mg 02/18/21 20:30 02/19/21 11:06 Losartan 50 Mg Tab PO Not Given DAILY [facility] Methylprednisolone Sodium Succinate 40 mg 02/18/21 21:00 02/19/21 11:09 Methylprednisolone Sod Succi 40 Mg/Ml 1 Ml Vial IV 40 mg Q12HR [facility] Administration Metoprolol Tartrate 50 mg 02/18/21 21:00 02/19/21 06:27 Metoprolol Tartrate 50 Mg Tab PO Not Given TID@0500,1300,2100 [facility] Miscellaneous Information 1 each 02/19/21 06:23 Potassium Replacement Protocol 1 Each Misc MISCELLANE DAILY PRN Per Protocol Protocol Morphine Sulfate 3 mg 02/18/21 06:10 Morphine Sulfate 4 Mg/Ml Syringe IV Q2HR PRN Pain Scale 6 to 7 Naloxone HCl 0.2 mg 02/18/21 06:10 Naloxone 0.4 Mg/Ml 1 Ml Vial IV Q2M PRN Opioid Reversal Ropinirole HCl 2 mg 02/18/21 21:00 02/19/21 02:00 Ropinirole Hcl 1 Mg Tab PO Not Given HS [facility] Senna/Docusate Sodium 1 each 02/19/21 09:00 02/19/21 11:12 Sennosides-Docusate Sodium 1 Each Tab PO Not Given DAILY [facility] Intake and Output 02/18/21 02/19/21 02/19/21 22:59 06:59 14:59 Intake Total 80.196 413.305 30.808 Output Total 840 Balance 80.196 -426.695 30.808 Intake: Intake, IV Titration 80.196 413.305 30.808 Amount Norepinephrine 4 mg In 45 Sodium Chloride 0.9% 250 ml @ 0.05 MCG/KG/MIN 15. 621 mls/hr IV .[id number] [facility] Rx#:[id number] Norepinephrine 4 mg In 14.736 Sodium Chloride 0.9% 250 ml @ 0.05 MCG/KG/MIN 15. 621 mls/hr IV .[id number] [facility] Rx#:[id number] Piperacillin-Tazobactam 3 200 .375 gm In Sodium Chloride 0.9% 100 ml @ 25 mls/hr IVPB Q8HR [facility] Rx# :[id number] propofoL 1,000 mg In 80.196 168.305 16.072 Empty Bag 1 bag @ Titrate IV .Q0M [facility] Rx#: [id number] Oral 0 Output: Urine 840 02/19/21 05:29 02/19/21 05:29 Assessment and Plan Assessment: Assessment #1 acute hypoxic respiratory failure #2 bilateral pneumonia #3 underlying sepsis related to urosepsis #4 paroxysmal atrial fibrillation #5 valvular heart disease Plan #1 continue supporting the blood pressure #2 rule out acute coronary event. We'll follow-up on the serial cardiac enzymes #3 obtain at least limited echocardiogram to assess ejection fraction #4 the patient currently is on antibiotic #5 rule out any cardiac arrhythmia we'll continue monitor for that #6 follow-up with the patient
[2021-02-19] MEDS: ENOXAPARIN 40 MG/0.4 ML SYRINGE SQ SCH (11:43)
--- NOTE | 2021-02-19 13:14 | XR ---
EXAMINATION TYPE: XR chest 1V DATE OF EXAM: 02/19/2021 COMPARISON: 02/18/2021 INDICATION: Intubated, difficulty breathing TECHNIQUE: Single frontal view of the chest is obtained. FINDINGS: The heart size is normal. The pulmonary vasculature is normal. Upper lung field infiltrates are present. Right midlung infiltrate is present. Findings are similar t o comparison Endotracheal tube tip is 2.3 cm above the justo. Nasogastric tube transverses the thorax. IMPRESSION: 1. Stable bilateral upper lung field and right mid lung field infiltrate
[2021-02-19] MEDS ORDERED: SODIUM CHLORIDE 0.9% 500 ML 500 ML IV ONE (13:56)
--- NOTE | 2021-02-19 14:37 | P.PN ---
Subjective Progress Note Date: 02/19/21 (Critical care time spent 35 minutes) Principal diagnosis: Acute hypoxic respiratory failure Bilateral pneumonia Sepsis Chronic kidney disease Altered mental status due to sepsis and pneumonia Baseline history of chronic atrial fibrillation heart failure Testing covid 19 has been negative 02/19/2021, patient seen eval examined during the rounds labs reviewed medications reviewed care plan discussed with the staff at length, patient remains on low dose of levo fed, unable to stop it as earlier this morning we stopped it but blood pressure dropped down requiring a reinitiation of levo fed, will require fluid bolus of the crystalloids 500 mL over 2 hours will be given, patient remains on full ventilator support currently patient is on FiO2 of 60%, with assist control rate of 20, tidal volume is 450, PEEP is 5, given hypotension cannot escalate the PEEP, first we'll try to taper off the levo fed then will taper the oxygen down by increasing PEEP, but cultures no growth so far, chest x-ray bilateral upper and mid lung field predominantly on the right side pneumonia stable ET tube, WBC have been lowered down to 12,000, arterial blood gas stable pO2 is 89, rash M is 3.2 BUN/creatinine improved to 20 and 1.03, currently patient is sedated with propofol drip, patient has a history of significant A. fib with RVR as well as moderate to severe mitral regurgitation, Patient is a 85-year-old [facility] resident brought into emergency department intubated on the field by EMS, she was having respiratory difficulties with argon of respiration, review of the records revealed that patient has a significant history of mood disorder depression hypertension and hypothyroidism, she has prior medical problems significant for atrial fibrillation not on any anticoagulation COPD heart failure dyslipidemia hypertension hypertensive cardiovascular disease and history of pulmonary hypertension history of stroke chronic kidney disease stage III, she used to smoke however stopped smoking several years ago, currently patient is on full ventilator support assist control of 20 breathing 20, PEEP of 5, 50% oxygen, tidal volume is 450, patient is on propofol 30 mics, hemodynamic status is stable patient is on levo fed 0.025, blood pressure is improved to 159/61, heart rate 63 saturation is 98%, EKG revealed left bundle-branch block, labs are significant for leukocytosis with WBC count is 16,000, hemoglobin and hematocrit 7.9 and 25, platelet count is 1 76,000, d-dimer is 4.86, lactic acid is up to 5.7 now came down to 2.2, subsequent 1 is 1.2, BUN/creatinine 27 1.19, coated 19 is negative, patient has received a dose of Lovenox and Zosyn and fluid boluses 1.5 L Objective - Vital Signs Vital signs: Vital Signs Temp 98 F 02/19/21 10:55 Pulse 54 L 02/19/21 14:01 Resp 20 02/19/21 14:01 BP 115/54 02/19/21 14:01 Pulse Ox 97 02/19/21 14:01 Intake & Output 02/18/21 02/19/21 02/19/21 18:59 06:59 18:59 Intake Total 77.326 493.501 70.808 Output Total 840 375 Balance 77.326 -346.499 -304.192 Intake: Intake, IV Titration 77.326 493.501 30.808 Amount Norepinephrine 4 mg In 45 Sodium Chloride 0.9% 250 ml @ 0.05 MCG/KG/MIN 15. 621 mls/hr IV .[id number] [facility] Rx#:[id number] Norepinephrine 4 mg In 14.736 Sodium Chloride 0.9% 250 ml @ 0.05 MCG/KG/MIN 15. 621 mls/hr IV .[id number] [facility] Rx#:[id number] Piperacillin-Tazobactam 3 200 .375 gm In Sodium Chloride 0.9% 100 ml @ 25 mls/hr IVPB Q8HR [facility] Rx# :[id number] propofoL 1,000 mg In 77.326 248.501 16.072 Empty Bag 1 bag @ Titrate IV .Q0M [facility] Rx#: [id number] Oral 0 40 Tube Feeding 0 Other 0 Output: Urine 840 375 - Exam - Constitutional General appearance: average body habitus, disheveled - EENT Eyes: PERRLA Ears: bilateral: normal - Neck Neck: lymphadenopathy Carotids: bilateral: upstroke normal - Respiratory Respiratory: bilateral: diminished - Cardiovascular Rhythm: regular Heart sounds: normal: S1, S2 - Gastrointestinal General gastrointestinal: decreased bowel sounds, distended, soft - Neurologic Patient is intubated sedated on full ventilator support - Labs CBC & Chem 7: 02/19/21 05:29 02/19/21 05:29 Labs: Abnormal Lab Results - Last 24 Hours (Table) 04/08/3102/19/21 02/19/21 Range/Units Unknown 05:29 05:29 WBC 12.0 H (3.8-10.6) k/uL RBC 2.65 L (3.80-5.40) m/uL Hgb 7.4 L (11.4-16.0) gm/dL Hct 25.2 L (34.0-46.0) % MCHC 29.4 L (31.0-37.0) g/dL RDW 16.3 H (11.5-15.5) % Plt Count 122 L (150-450) k/uL Neutrophils # 8.9 H (1.3-7.7) k/uL ABG pH (7.35-7.45) ABG HCO3 (21-25) mmol/L ABG Total CO2 (19-24) mmol/L ABG O2 Saturation (94-97) % Potassium 3.2 L (3.5-5.1) mmol/L Chloride 111 H (98-107) mmol/L BUN 20 H (7-17) mg/dL Glucose 111 H (74-99) mg/dL POC Glucose (mg/dL) (75-99) mg/dL Calcium 7.9 L (8.4-10.2) mg/dL AST 46 H (14-36) U/L Total Protein 5.2 L (6.3-8.2) g/dL Albumin 2.5 L (3.5-5.0) g/dL Urine Protein Trace H (Negative) Ur Leukocyte Esterase Trace H (Negative) Urine WBC 6 H (0-5) /hpf Hyaline Casts 3 H (0-2) /lpf Urine Mucus Rare H (None) /hpf 02/19/21 02/19/21 Range/Units 06:05 08:25 WBC (3.8-10.6) k/uL RBC (3.80-5.40) m/uL Hgb (11.4-16.0) gm/dL Hct (34.0-46.0) % MCHC (31.0-37.0) g/dL RDW (11.5-15.5) % Plt Count (150-450) k/uL Neutrophils # (1.3-7.7) k/uL ABG pH 7.48 H (7.35-7.45) ABG HCO3 27 H (21-25) mmol/L ABG Total CO2 28 H (19-24) mmol/L ABG O2 Saturation 98.4 H (94-97) % Potassium (3.5-5.1) mmol/L Chloride (98-107) mmol/L BUN (7-17) mg/dL Glucose (74-99) mg/dL POC Glucose (mg/dL) 129 H (75-99) mg/dL Calcium (8.4-10.2) mg/dL AST (14-36) U/L Total Protein (6.3-8.2) g/dL Albumin (3.5-5.0) g/dL Urine Protein (Negative) Ur Leukocyte Esterase (Negative) Urine WBC (0-5) /hpf Hyaline Casts (0-2) /lpf Urine Mucus (None) /hpf Microbiology - Last 24 Hours (Table) 02/18/21 03:40 Blood Culture - Preliminary Blood No Growth after 24 hours 02/18/21 03:30 Blood Culture - Preliminary Blood No Growth after 24 hours Assessment and Plan Assessment: Acute hypoxic respiratory failure Bilateral pneumonia Sepsis Chronic kidney disease Valvular heart disease with mitral regurgitation Altered mental status due to sepsis and pneumonia Baseline history of chronic atrial fibrillation heart failure Testing covidr 19 has been negative Plan: Ventilator support, adjustment as needed Taper and DC the levo fed drip Fluid boluses Echocardiogram pending Gentle rehydration Broad-spectrum antibiotics Bronchodilators IV steroids Follow-up on Rodriguez cultures DVT prophylaxis with Lovenox Further plan of care and recommendation as per clinical response of the patient
--- NOTE | 2021-02-19 17:00 | P.PN ---
Progress Note - Text Progress Note Date: 02/19/21 Chief Complaint: Short of breath history of present complaint: This is a very pleasant 85-year-old patient of Dr. Maya. Currently at [facility]. Chronic stable medical conditions include COPD, paroxysmal atrial fibrillation, hypertension, hyperlipidemia, GERD, osteoarthritis, secondary pulmonary hypertension, hypothyroid, rosacea, osteoarthritis, urine stress incontinence,CHF from diastolic dysfunction EF 55- 60%, severe mitral regurgitation, moderate mitral stenosis, moderate tricuspid regurgitation, secondary pulmonary hypertension. Diverticulosis. at her baseline uses a cane and a walker. EMS was called out as patient had been lethargic all day. Patient is complaining that she is not feeling well. One hour prior to the EMS arrival patient became increasingly short of breath. Patient at baseline is 3 L of nasal cannula. And patient became less responsive and breathing worsen. 4 days ago patient had a negative COVID testing. When EMS arrived patient's found to have agonal respiration. Telemetry showed sinus rhythm. Patient is intubated. This afternoon patient has FiO2 15 of PEEP of 5. Drips included propofol and norepinephrine. Telemetry shows sinus rhythm. Admitted with bilateral pneumonia, acute respiratory arrest on ventilator support. Started on IV Zosyn, Levothroid, propofol, IV Solu-Medrol, bronchodilators. Today: ICU overflow in the ER. Ventilator: FiO2 61 PEEP of 5. Drips include propofol and norepinephrine. Patient sedated. Telemetry-sinus rhythm Review of systems: Could not obtain patient intubated Active Medications Acetaminophen (Acetaminophen Suppository 650 Mg Supp) 650 mg RECTAL Q4HR PRN PRN Reason: Fever And/ Or Mild Pain Acetaminophen (Acetaminophen Tab 325 Mg Tab) 650 mg PO Q4HR PRN PRN Reason: Fever and/or Mild Pain Albuterol/Ipratropium (Ipratropium-Albuterol 3 Ml Neb) 3 ml INHALATION RT-QID [facility] Last Admin: 02/19/21 16:39 Dose: 3 ml Documented by: Amiodarone HCl (Amiodarone 200 Mg Tab) 200 mg PO DAILY [facility] Last Admin: 02/19/21 11:25 Dose: 200 mg Documented by: Doxycycline Monohydrate (Doxycycline 100 Mg Cap) 100 mg PO BID [facility] Last Admin: 02/19/21 11:06 Dose: Not Given Documented by: Enoxaparin Sodium (Enoxaparin 40 Mg/0.4 Ml Syringe) 40 mg SQ DAILY [facility] Last Admin: 02/19/21 11:43 Dose: 40 mg Documented by: Famotidine (Famotidine 20 Mg/2 Ml Vial) 20 mg IV Q24HR [facility] Last Admin: 02/19/21 11:06 Dose: 20 mg Documented by: Furosemide (Furosemide 40 Mg Tab) 40 mg PO DAILY [facility] Last Admin: 02/19/21 11:12 Dose: Not Given Documented by: Propofol 1,000 mg/ IV Solution 100 mls @ 0 mls/hr IV .Q0M [facility]; Protocol Last Admin: 02/19/21 07:17 Dose: 40 mcg/kg/min, 19.68 mls/hr Documented by: Piperacillin Sod/Tazobactam (Sod 3.375 gm/ Sodium Chloride) 100 mls @ 25 mls/hr IVPB Q8HR [facility] Last Admin: 02/19/21 08:05 Dose: 25 mls/hr Documented by: Norepinephrine Bitartrate 4 mg (/ Sodium Chloride) 254 mls @ 15.621 mls/hr IV .[id number] [facility]; Protocol Last Titration: 02/19/21 08:51 Dose: 0.01 mcg/kg/min, 3.124 mls/hr Documented by: Insulin Aspart (Insulin Aspart (Novolog) 100 Unit/Ml Vial) 0 unit SQ ACHS [facility]; Protocol Last Admin: 02/19/21 16:04 Dose: Not Given Documented by: Latanoprost (Latanoprost 0.005% Ophth Drops 2.5 Ml Btl) 1 drops BOTH EYES HS@1999 [facility] Last Admin: 02/19/21 01:59 Dose: Not Given Documented by: Levothyroxine Sodium (Levothyroxine 112 Mcg Tab) 112 mcg OG-TUBE HS [facility] Last Admin: 02/19/21 02:00 Dose: Not Given Documented by: Losartan Potassium (Losartan 50 Mg Tab) 100 mg PO DAILY [facility] Last Admin: 02/19/21 11:25 Dose: 100 mg Documented by: Methylprednisolone Sodium Succinate (Methylprednisolone Sod Succi 40 Mg/Ml 1 Ml Vial) 40 mg IV Q12HR [facility] Last Admin: 02/19/21 11:09 Dose: 40 mg Documented by: Metoprolol Tartrate (Metoprolol Tartrate 50 Mg Tab) 50 mg PO TID@0500,1300,2100 [facility] Last Admin: 02/19/21 11:44 Dose: 50 mg Documented by: Miscellaneous Information (Potassium Replacement Protocol 1 Each Misc) 1 each MISCELLANE DAILY PRN; Protocol PRN Reason: Per Protocol Morphine Sulfate (Morphine Sulfate 4 Mg/Ml Syringe) 3 mg IV Q2HR PRN PRN Reason: Pain Scale 6 to 7 Naloxone HCl (Naloxone 0.4 Mg/Ml 1 Ml Vial) 0.2 mg IV Q2M PRN PRN Reason: Opioid Reversal Ropinirole HCl (Ropinirole Hcl 1 Mg Tab) 2 mg PO HS [facility] Last Admin: 02/19/21 02:00 Dose: Not Given Documented by: Senna/Docusate Sodium (Sennosides-Docusate Sodium 1 Each Tab) 1 each PO DAILY [facility] Last Admin: 02/19/21 11:12 Dose: Not Given Documented by: Past medical history: Right adnexa growth being followed as an outpatient, COPD, paroxysmal atrial fibrillation, hypertension, hyperlipidemia, COPD, GERD, primary osteoarthritis, colon cancer in 2001, secondary pulmonary hypertension, hypothyroid, rosacea, urinary stress incontinence, osteoarthritis chronic diverticulosis, gastritis duodenitis, colon cancer treated with surgery chemoradiation, home oxygen 2 L, chronic kidney disease stage III, stroke with some speech impairment, hypothyroid,chronic congestive heart failure from diastolic dysfunction EF 55- 60%, severe mitral regurgitation, moderate mitral stenosis, moderate tricuspid regurgitation., chronic thrombocytopenia [facility] Smoked for 20 years, stopped in 1986, smoked a pack and half Physical examination: VITAL SIGNS: 98.1, 54, 20, 123/52, 97% on the ventilator GENERAL: Laying in bed, intubated EYES: Pupils equal. Conjunctiva normal HEENT: External appearance of nose and ears normal, oral cavity ET tube, OG tube NECK: JVD unable to assess; masses not palpable. HEART: First and second heart sounds are normal; edema present LUNGS: Respiratory rate increased, decreased breaths, ABDOMEN: Soft, nontender, liver spleen not palpable, no masses palpable. PSYCH: Patient sedated. EXTREMITIES: Missing right hand fingers, except thumb INVESTIGATIONS, reviewed in the clinical context: February 19: WBC 12 hemoglobin 7.4 platelets 122 potassium 3.2 creatinine 1.03 Computed tomography scan of the chest: Negative for PE. Extensive pulmonary airspace consolidation with bilateral pleural effusions. WBC 16.1 hemoglobin 7.9 platelets 176 d-dimer 4.86 ABG pH 7.4 pCO2 38 pO2 208 potassium 4 bun 27 creatinine 1.19 Lactic acid 5.7 and repeat 2.2 proBNP 2900 procalcitonin 0.04 UA showing 1+ protein Coronavirus [PCR] not detected EKG tracing personally reviewed by me-sinus rhythm, left bundle-branch block Chest x-ray film personally reviewed by me-bilateral extensive pulmonary infiltrates assessment: -bilateral suspected gram-negative pneumonia.-Slow to respond IV Zosyn. Pulmonary consulted -Acute hypoxic respiratory failure, secondary to pneumonia patient went into respiratory arrest-slow to respond On ventilator support. FiO2 60% with a PEEP of 5 -Acute on chronic congestive heart failure exacerbation, from diastolic dysfunction EF 55-60%,-uncontrolled Start IV Lasix -Acute COPD exacerbation in an [id number]-alfo to respond bronchodilators, IV steroids, -Severe mitral regurgitation, moderate mitral stenosis, moderate tricuspid regurgitation Follow clinically -Secondary moderate pulmonary hypertension from COPD and CHF Follow clinically -Essential hypertension- continue beta amara. Amlodipine added -GERD- use PPI -Primary osteoarthritis- use analgesics when necessary -Hypothyroid- continue Synthroid -Chronic urinary stress incontinence- Doll catheter -Chronic diverticulosis- Follow clinically -Chronic gait dysfunction uses walker -Left bundle-branch block, chronic Telemetry -Paroxysmal atrial fibrillation, currently sinus rhythm. Follow BMP, procalcitonin and BNP. Follow with cardiology and pulmonary
[2021-02-19 18:10] LABS: Glucose,Whole Blood 168 mg/dL (75-99)
[2021-02-19] MEDS: FUROSEMIDE 10 MG/ML 4 ML VIAL IV SCH (20:31)
[2021-02-19 21:43] LABS: Glucose,Whole Blood 172 mg/dL (75-99)
[2021-02-20 04:46] LABS: Albumin 2.4 g/dL (3.5-5.0); Calcium 7.7 mg/dL (8.4-10.2); Magnesium 1.9 mg/dL (1.6-2.3); Phosphorus 3.5 mg/dL (2.5-4.5); Potassium 3.5 mmol/L (3.5-5.1); Total Bilirubin 0.7 mg/dL (0.2-1.3); Total Protein 4.8 g/dL (6.3-8.2)
[2021-02-20 04:57] LABS: Basophils % (A) 0 %; Eosinophils % (A) 0 %; HCT 22.6 % (34.0-46.0); Hypochromasia Marked; Lymphocytes # (A) 0.5 k/uL (1.0-4.8); Lymphocytes % (A) 10 %; MCH 27.7 pg (25.0-35.0); MCHC 29.4 g/dL (31.0-37.0); MCV 94.2 fL (80.0-100.0); Mean Platelet Volume 8.8; Monocytes # (A) 0.1 k/uL (0-1.0); Monocytes % (A) 3 %; Neutrophils # (A) 4.4 k/uL (1.3-7.7); Neutrophils % (A) 86 %; Poikilocytosis Slight; RDW 15.9 % (11.5-15.5)
[2021-02-20 05:01] LABS: HGB 6.7 gm/dL (11.4-16.0); Platelet Count 85 k/uL (150-450)
[2021-02-20] MEDS: METOPROLOL TARTRATE 50 MG TAB PO SCH ×3 (06:57→20:29)
[2021-02-20] MEDS: FUROSEMIDE 10 MG/ML 4 ML VIAL IV SCH ×2 (06:58→09:51)
[2021-02-20 07:40] LABS: ABG Base Excess 1.3 mmol/L; ABG HCO3 25 mmol/L (21-25); ABG Oxygen Saturation 99.2 % (94-97); ABG PCO2 32 mmHg (35-45); ABG PH 7.49 (7.35-7.45); ABG PO2 103 mmHg (83-108); ABG TCO2 26 mmol/L (19-24); Allen Test Performed? Yes
[2021-02-20] MEDS: PIPERACILLIN-TAZOBACTAM 3.375 GM in SODIUM CHLORIDE 0.9% 100 ML IVPB SCH ×3 (08:42→23:14)
[2021-02-20 08:51] LABS: Glucose,Whole Blood 174 mg/dL (75-99)
[2021-02-20] MEDS: INSULIN ASPART (NovoLOG) 100 UNIT/ML VIAL SQ SCH ×4 (09:05→23:14)
[2021-02-20] MEDS: FAMOTIDINE 20 MG/2 ML VIAL IV SCH ×2 (09:51→20:30)
[2021-02-20] MEDS: methylPREDNISolone SOD SUCCI 40 MG/ML 1 ML VIAL IV SCH ×2 (09:51→20:30)
[2021-02-20] MEDS: AMIODARONE 200 MG TAB PO SCH (10:07)
[2021-02-20] MEDS: DOXYCYCLINE 100 MG CAP PO SCH ×2 (10:07→20:53)
[2021-02-20] MEDS: ENOXAPARIN 40 MG/0.4 ML SYRINGE SQ SCH (10:07)
[2021-02-20] MEDS: LOSARTAN 50 MG TAB PO SCH (10:07)
[2021-02-20] MEDS: LEVOTHYROXINE 112 MCG TAB OG-TUBE SCH (10:07)
[2021-02-20] MEDS: SENNOSIDES-DOCUSATE SODIUM 1 EACH TAB PO SCH (10:08)
--- NOTE | 2021-02-20 11:23 | CDI ---
Documentation Clarification Form Date: 02/20/2021 11:13:26 AM From: Lety RasmussenJANEEN, CCDS Admit Date: 02/18/2021 06:10:00 AM Patient Name: Nadira Lopez Visit Number: [id number] Discharge Date: ATTENTION: The Clinical Documentation Specialists (CDI) and [facility] Coding Staff appreciate your assistance in clarifying documentation. Please respond to the clarification below the line at the bottom and electronically sign. The CDI & [facility] Coding staff will review the response and follow-up if needed. Please note: Queries are made part of the Legal Health Record. If you have any questions, please contact the author of this message via ITS. Dr. Jona Alfonso: The patient presented with the following clinical indicators. Additional clarification regarding the etiology/cause of the clinical indicators is requested. Sepsis is documented in the 02/18 Pulmonary Consult and the 02/19 Cardiology Consult. History/Risk Factors: Atrial Fibrillation, CHF, COPD, CVA with some speech difficulty, Glaucoma, GERD, GI bleed, Hyperlipidemia, Hypertension, Osteoarthritis, Pneumonia, CKD III, Thrombocytopenia, Colon Cancer status chemo & radiation, Chronic Hypoxic Respiratory Failure on home O2, Pulmonary Hypertension, UTIs, Urine Stress Incontinence, Constipation, Former smoker. Clinical Indicators: Presented to the ED on 02/18 via EMS from a [facility], found to have SOB, not responsive, developed agonal respirations & intubated. Became hypotensive in ED requiring Levophed. Clinical Impression: Acute respiratory failure, Elevated D Dimer and Lactic Acidosis. 02/18 VS: T 98.4, P 74 - 54, R 18 - 20, BP 172/63 - 78/31, PO 99 BVM - 100 vent, BMI: 33.1 12/21 LAB: WBC 16.1, Hgb 7.9, Hct 25.7, Neut 13.5, APTT 20.1, D Dimer 4.86, BUN 27, Cr 1.19, Gluc 248, LA 2.2 - 1.2, T Prot 5.8, Alb 3.0 Bl gas: ABG: pO2 208, Total CO2 26, O2 sat 100.0 UA: 1+ prot 12/21 COVID NEG. 12/21 CXR: Mauri pulm infiltrates > lt. 12/21 EKG: R 78 nsr 2/10 Treatment: Blood cultures, IV Ativan, IV Morphine, IV Propofol, IV Levophed, IV Fluid Bolus fl bolus 1,000 mls @ 999 mls/hr q1H & 500 mls @ 999 mls/hr q31M, IV Zosyn, INH Duoneb In your professional opinion, please clarify if these findings signify one of the following conditions: [ ] Sepsis POA [ ] Sepsis, Not POA [ ] Sepsis ruled out [ ] Severe Sepsis with organ failure [ ] Septic Shock [ ] Other, please specify [ ] Unable to determine (Template Last Reviewed: December 2020) Sepsis, ruled out MTDD
[2021-02-20] MEDS: IPRATROPIUM-ALBUTEROL 3 ML NEB INHALATION SCH ×4 (11:36→20:14)
--- NOTE | 2021-02-20 11:41 | P.PN ---
Subjective This is an 85-year-old female past medical history significant for hypertension, dyslipidemia, paroxysmal atrial fibrillation not on antico agulation secondary to GI bleeding, left bundle branch block, chronic diastolic heart failure, chronic kidney disease, CVA, colon cancer status post surgery and chemotherapy, valvular heart disease and COPD. She followed in the office previously with Dr. Leslie. She resides at an [facility]. She is seen and examined maintained on mechanical ventilation in the emergency department secondary to respiratory failure. Blood pressure 125/47 heart rate 54 afebrile. Laboratory data reviewed, WBC 5.0, hemoglobin 6.7, platelets 85, sodium 141, potassium 3.5, creatinine 0.83, NT proBNP 2280 and Procalcintonin 0.55. 24-hour urine output 1925 mL's. Currently maintained on amiodarone 200 mg daily, Lasix 40 mg IV twice a day, losartan 100 mg daily and metoprolol 50 mg 3 times a day. Previous echo from 12/2020 revealed preserved LV systolic function with EF 55-60%, grade III diastolic dysfunction, severely dilated LA, mild with mean gradient of 11 mmHG, moderate-severe MR, moderate mitral stenosis with mean gradient of 7 mmHg. GENERAL: No acute distress. Opens her eyes to stimuli. NECK: Supple without JVD or thyromegaly. LUNGS: Breath sounds clear to auscultation bilaterally. Respiration equal and unlabored. No wheezes, rales or rhonchi. HEART: Regular rate and rhythm with systolic ejection murmur at the base, no rubs or gallops. S1 and S2 heard. EXTREMITIES: Normal range of motion, 1+ bilateral lower extremity edema. No clubbing or cyanosis. Peripheral pulses intact. ASSESSMENT Acute hypoxic respiratory failure Bilateral pneumonia Leuckocytosis Lactic acidosis Elevated d-dimer Acute on chronic diastolic heart failure Acute anemia Paroxysmal atrial fibrillation not on fci anti-coagulation secondary to history of GI bleeding Valvular heart disease Dyslipidemia Chronic kidney disease PLAN Echocardiogram will be reviewed. Further treatment of anemia per primary care team. Maintaining sinus mechanism. Continue IV diuresis. Follow renal function and electrolytes in the morning. Document accurate intake and output along with daily weights. Nurse Practitioner note has been reviewed, I agree with a documented findings and plan of care. Patient was seen and examined. Objective - Vital Signs Vital signs: Vital Signs Temp 97.4 F L 02/20/21 01:00 Pulse 54 L 02/20/21 07:00 Resp 16 02/20/21 07:00 BP 125/47 02/20/21 07:00 Pulse Ox 96 02/20/21 07:00 Intake & Output 02/19/21 02/20/21 02/20/21 18:59 06:59 18:59 Intake Total 995.227 197.088 137.104 Output Total 525 1400 Balance 470.227 -1202.912 137.104 Intake: Intake, IV Titration 955.227 197.088 137.104 Amount Norepinephrine 4 mg In 39.155 Sodium Chloride 0.9% 250 ml @ 0.05 MCG/KG/MIN 15. 621 mls/hr IV .[id number] [facility] Rx#:[id number] Piperacillin-Tazobactam 3 100 .375 gm In Sodium Chloride 0.9% 100 ml @ 25 mls/hr IVPB Q8HR [facility] Rx# :[id number] Potassium Chloride 10 meq 200 In Water For Injection 1 100ml.bag @ 100 mls/hr IVPB Q1HR [facility] Rx#: [id number] Sodium Chloride 0.9% 500 500 ml 500 ml @ 999 mls/hr IV .Q31M [facility] Rx#:[id number] propofoL 1,000 mg In 116.072 197.088 137.104 Empty Bag 1 bag @ Titrate IV .Q0M [facility] Rx#: [id number] Oral 40 Tube Feeding 0 Other 0 Output: Urine 525 1400 - Labs CBC & Chem 7: 02/20/21 03:51 02/20/21 03:51 Labs: Abnormal Lab Results - Last 24 Hours (Table) 02/18/21 02/19/21 02/19/21 Range/Units 07:40 17:57 21:42 RBC (3.80-5.40) m/uL Hgb (11.4-16.0) gm/dL Hct (34.0-46.0) % MCHC (31.0-37.0) g/dL RDW (11.5-15.5) % Plt Count (150-450) k/uL Lymphocytes # (1.0-4.8) k/uL ABG pH (7.35-7.45) ABG pCO2 (35-45) mmHg ABG Total CO2 (19-24) mmol/L ABG O2 Saturation (94-97) % Chloride (98-107) mmol/L Carbon Dioxide (22-30) mmol/L Glucose (74-99) mg/dL POC Glucose (mg/dL) 168 H 172 H (75-99) mg/dL Calcium (8.4-10.2) mg/dL Total Protein (6.3-8.2) g/dL Albumin (3.5-5.0) g/dL Procalcitonin (0.02-0.09) ng/mL Crossmatch See Detail 02/20/21 02/20/21 02/20/21 Range/Units 03:51 03:51 03:51 RBC 2.40 L (3.80-5.40) m/uL Hgb 6.7 L* (11.4-16.0) gm/dL Hct 22.6 L (34.0-46.0) % MCHC 29.4 L (31.0-37.0) g/dL RDW 15.9 H (11.5-15.5) % Plt Count 85 L (150-450) k/uL Lymphocytes # 0.5 L (1.0-4.8) k/uL ABG pH (7.35-7.45) ABG pCO2 (35-45) mmHg ABG Total CO2 (19-24) mmol/L ABG O2 Saturation (94-97) % Chloride 111 H (98-107) mmol/L Carbon Dioxide 21 L (22-30) mmol/L Glucose 164 H (74-99) mg/dL POC Glucose (mg/dL) (75-99) mg/dL Calcium 7.7 L (8.4-10.2) mg/dL Total Protein 4.8 L (6.3-8.2) g/dL Albumin 2.4 L (3.5-5.0) g/dL Procalcitonin 0.55 H (0.02-0.09) ng/mL Crossmatch 02/20/21 02/20/21 Range/Units 07:36 08:48 RBC (3.80-5.40) m/uL Hgb (11.4-16.0) gm/dL Hct (34.0-46.0) % MCHC (31.0-37.0) g/dL RDW (11.5-15.5) % Plt Count (150-450) k/uL Lymphocytes # (1.0-4.8) k/uL ABG pH 7.49 H (7.35-7.45) ABG pCO2 32 L (35-45) mmHg ABG Total CO2 26 H (19-24) mmol/L ABG O2 Saturation 99.2 H (94-97) % Chloride (98-107) mmol/L Carbon Dioxide (22-30) mmol/L Glucose (74-99) mg/dL POC Glucose (mg/dL) 174 H (75-99) mg/dL Calcium (8.4-10.2) mg/dL Total Protein (6.3-8.2) g/dL Albumin (3.5-5.0) g/dL Procalcitonin (0.02-0.09) ng/mL Crossmatch Microbiology - Last 24 Hours (Table) 02/18/21 03:30 Blood Culture - Preliminary Blood No Growth after 48 hours 02/18/21 03:40 Blood Culture - Preliminary Blood No Growth after 48 hours
--- NOTE | 2021-02-20 11:49 | ECHOF ---
Referral Reason:pulmnary hypertension MEASUREMENTS -------- HEIGHT: 157.5 cm WEIGHT: 81.6 kg BP: 113/45 RVIDd: 2.7 cm (< 3.3) IVSd: 1.6 cm (0.6 - 1.1) LVIDd: 3.3 cm (3.9 - 5.3) LVPWd: 1.5 cm (0.6 - 1.1) IVSs: 1.7 cm LVIDs: 1.3 cm LVPWs: 1.9 cm LAESV Index (A-L): 35.73 ml/m Ao Diam: 3.2 cm (2.0 - 3.7) AV Cusp: 1.1 cm (1.5 - 2.6) LA Diam: 4.0 cm (2.7 - 3.8) MV EXCURSION: 13.883 mm (> 18.000) MV EF SLOPE: 39 mm/s (70 - 150) EPSS: 1.4 cm MV E Brando: 1.76 m/s MV DecT: 253 ms MV A Brando: 1.81 m/s MV E/A Ratio: 0.97 AV maxP.15 mmHg AV meanP.17 mmHg AR PHT: 667 ms RAP: 5.00 mmHg RVSP: 76.55 mmHg FINDINGS -------- Pt. on a vent. The left ventricular size is normal. There is moderate concentric left ventricular hypertrophy. O verall left ventricular systolic function is normal with, an EF between 55 - 60 %. Increased LAP Gr sagar 3 Diastolic Dysfunction. The right ventricle is normal in size. Normal LA size by volume 22+/-6 ml/m2. The right atrial size is normal. Interatrial and interventricular septum intact. Aortic valve is trileaflet and is moderately thickened. There is mild aortic regurgitation. There is mild aortic stenosis present. Peak/mean gradient across the Aortic Valve is 19.15mmHg / 11.17mm Hg. The mitral valve is normal. The mitral valve leaflets are severely thickened. Severe mitral annul ar calcification present. Severe mitral regurgitation is present. Mitral Valve Area by PHT 2.1cm The peak and mean MV gradients are 16.66mmHg 7.38mmHg as measured by doppler. [id number]-[id number] kaleb ral stenosis. The tricuspid valve appears structurally normal. Severe tricuspid regurgitation present. There is severe pulmonary hypertension. The right ventricular systolic pressure, as measured by Doppler, is 76.55mmHg. There is no pulmonic regurgitation present. The aortic root size is normal. Normal inferior vena cava with normal inspiratory collapse consistent with estimated right atrial pre ssure of 5 mmHg. There is a small, generalized pericardial effusion present. CONCLUSIONS -------- 1. The left ventricular size is normal. 2. There is moderate concentric left ventricular hypertrophy. 3. Overall left ventricular systolic function is normal with, an EF between 55 - 60 %. 4. Increased LAP Grade 3 Diastolic Dysfunction. 5. Normal LA size by volume 22+/-6 ml/m2. 6. Aortic valve is trileaflet and is moderately thickened. 7. There is mild aortic regurgitation. 8. There is mild aortic stenosis present. 9. Peak/mean gradient across the Aortic Valve is 19.15mmHg / 11.17mmHg. 10. The mitral valve leaflets are severely thickened. 11. Severe mitral annular calcification present. 12. Severe mitral regurgitation is present. 13. Mitral Valve Stenosis MVA By PHT 2.1cm with a Peak/Mean PG 16.66mmHg 7.38mmHg 14. [id number] mitral stenosis. 15. Severe tricuspid regurgitation present. 16. There is severe pulmonary hypertension. 17. The right ventricular systolic pressure, as measured by Doppler, is 76.55mmHg. 18. There is a small, generalized pericardial effusion present. CUSTOMER TECHNICAL SERVICES MANAGER: Liza Stone, [facility]
[2021-02-20 13:20] LABS: Glucose,Whole Blood 149 mg/dL (75-99)
[2021-02-20 14:47] LABS: Glucose,Whole Blood 161 mg/dL (75-99)
[2021-02-20 16:03] LABS: Glucose,Whole Blood 168 mg/dL (75-99)
[2021-02-20] MEDS: NOREPINEPHRINE 4 MG in SODIUM CHLORIDE 0.9% 250 ML IV SCH (16:21)
[2021-02-20] MEDS: POTASSIUM BICARBONATE/CIT AC 20 MEQ TABLET.EFF NG-TUBE SCH ×2 (16:21→18:41)
--- NOTE | 2021-02-20 16:44 | P.PN ---
Subjective Progress Note Date: 02/20/21 (Critical care time spent 35 minutes) Principal diagnosis: Acute hypoxic respiratory failure Bilateral pneumonia Sepsis Chronic kidney disease Altered mental status due to sepsis and pneumonia Baseline history of chronic atrial fibrillation heart failure Testing covid 19 has been negative 02/20/2021, patient seen eval examined during the rounds labs reviewed medications reviewed, patient is currently off of levo fed drip, euvolemic status appears to be present, however ventilator setting continued to have high FiO2 currently patient is on 60% oxygen over next 24 hours will try to wean down the oxygen, patient remains on broad-spectrum antibiotics no fever has been s een, urine output has been adequate, but patient has been replaced, radiographic studies labs reviewed care plan discussed with staff at length if patient is down to 40% and we will do a CPAP pressure support trial tomorrow morning, 2 feet can be initiated, 02/19/2021, patient seen eval examined during the rounds labs reviewed medications reviewed care plan discussed with the staff at length, patient remains on low dose of levo fed, unable to stop it as earlier this morning we stopped it but blood pressure dropped down requiring a reinitiation of levo fed, will require fluid bolus of the crystalloids 500 mL over 2 hours will be given, patient remains on full ventilator support currently patient is on FiO2 of 60%, with assist control rate of 20, tidal volume is 450, PEEP is 5, given hypotension cannot escalate the PEEP, first we'll try to taper off the levo fed then will taper the oxygen down by increasing PEEP, but cultures no growth so far, chest x-ray bilateral upper and mid lung field predominantly on the right side pneumonia stable ET tube, WBC have been lowered down to 12,000, arterial blood gas stable pO2 is 89, rash M is 3.2 BUN/creatinine improved to 20 and 1.03, currently patient is sedated with propofol drip, patient has a history of significant A. fib with RVR as well as moderate to severe mitral regurgitation, Patient is a 85-year-old [facility] resident brought into emergency department intubated on the field by EMS, she was having respiratory difficulties with argon of respiration, review of the records revealed that patient has a significant history of mood disorder depression hypertension and hypothyroidism, she has prior medical problems significant for atrial fibrillation not on any anticoagulation COPD heart failure dyslipidemia hypertension hypertensive cardiovascular disease and history of pulmonary hypertension history of stroke chronic kidney disease stage III, she used to smoke however stopped smoking several years ago, currently patient is on full ventilator support assist control of 20 breathing 20, PEEP of 5, 50% oxygen, tidal volume is 450, patient is on propofol 30 mics, hemodynamic status is stable patient is on levo fed 0.025, blood pressure is improved to 159/61, heart rate 63 saturation is 98%, EKG revealed left bundle-branch block, labs are significant for leukocytosis with WBC count is 16,000, hemoglobin and hematocrit 7.9 and 25, platelet count is 1 76,000, d-dimer is 4.86, lactic acid is up to 5.7 now came down to 2.2, subsequent 1 is 1.2, BUN/creatinine 27 1.19, coated 19 is negative, patient has received a dose of Lovenox and Zosyn and fluid boluses 1.5 L Objective - Vital Signs Vital signs: Vital Signs Temp 97.4 F L 02/20/21 15:00 Pulse 54 L 02/20/21 16:00 Resp 20 02/20/21 16:00 BP 118/49 02/20/21 16:00 Pulse Ox 99 02/20/21 16:00 Intake & Output 02/19/21 02/20/21 02/20/21 18:59 06:59 18:59 Intake Total 995.227 197.088 518.764 Output Total 525 1400 1675 Balance 470.227 -1202.912 -1156.236 Weight 82 kg Intake: IV 20 0.9ns @ kvo 20 Intake, IV Titration 955.227 197.088 188.764 Amount Norepinephrine 4 mg In 39.155 Sodium Chloride 0.9% 250 ml @ 0.05 MCG/KG/MIN 15. 621 mls/hr IV .[id number] [facility] Rx#:[id number] Piperacillin-Tazobactam 3 100 .375 gm In Sodium Chloride 0.9% 100 ml @ 25 mls/hr IVPB Q8HR [facility] Rx# :[id number] Potassium Chloride 10 meq 200 In Water For Injection 1 100ml.bag @ 100 mls/hr IVPB Q1HR [facility] Rx#: [id number] Sodium Chloride 0.9% 500 500 ml 500 ml @ 999 mls/hr IV .Q31M [facility] Rx#:[id number] propofoL 1,000 mg In 116.072 197.088 188.764 Empty Bag 1 bag @ Titrate IV .Q0M [facility] Rx#: [id number] Oral 40 Tube Feeding 0 Blood Product 310 Rc Irr As1 Unit 310 [id number] Other 0 Output: Urine 525 1400 1675 - Exam - Constitutional General appearance: average body habitus, disheveled - EENT Eyes: PERRLA Ears: bilateral: normal - Neck Neck: lymphadenopathy Carotids: bilateral: upstroke normal - Respiratory Respiratory: bilateral: diminished - Cardiovascular Rhythm: regular Heart sounds: normal: S1, S2 - Gastrointestinal General gastrointestinal: decreased bowel sounds, distended, soft - Neurologic Patient is intubated sedated on full ventilator support - Labs CBC & Chem 7: 02/20/21 03:51 02/20/21 03:51 Labs: Abnormal Lab Results - Last 24 Hours (Table) 02/18/21 02/19/21 02/19/21 Range/Units 07:40 17:57 21:42 RBC (3.80-5.40) m/uL Hgb (11.4-16.0) gm/dL Hct (34.0-46.0) % MCHC (31.0-37.0) g/dL RDW (11.5-15.5) % Plt Count (150-450) k/uL Lymphocytes # (1.0-4.8) k/uL ABG pH (7.35-7.45) ABG pCO2 (35-45) mmHg ABG Total CO2 (19-24) mmol/L ABG O2 Saturation (94-97) % Chloride (98-107) mmol/L Carbon Dioxide (22-30) mmol/L Glucose (74-99) mg/dL POC Glucose (mg/dL) 168 H 172 H (75-99) mg/dL Calcium (8.4-10.2) mg/dL Total Protein (6.3-8.2) g/dL Albumin (3.5-5.0) g/dL Procalcitonin (0.02-0.09) ng/mL Crossmatch See Detail 02/20/21 02/20/21 02/20/21 Range/Units 03:51 03:51 03:51 RBC 2.40 L (3.80-5.40) m/uL Hgb 6.7 L* (11.4-16.0) gm/dL Hct 22.6 L (34.0-46.0) % MCHC 29.4 L (31.0-37.0) g/dL RDW 15.9 H (11.5-15.5) % Plt Count 85 L (150-450) k/uL Lymphocytes # 0.5 L (1.0-4.8) k/uL ABG pH (7.35-7.45) ABG pCO2 (35-45) mmHg ABG Total CO2 (19-24) mmol/L ABG O2 Saturation (94-97) % Chloride 111 H (98-107) mmol/L Carbon Dioxide 21 L (22-30) mmol/L Glucose 164 H (74-99) mg/dL POC Glucose (mg/dL) (75-99) mg/dL Calcium 7.7 L (8.4-10.2) mg/dL Total Protein 4.8 L (6.3-8.2) g/dL Albumin 2.4 L (3.5-5.0) g/dL Procalcitonin 0.55 H (0.02-0.09) ng/mL Crossmatch 02/20/21 02/20/21 02/20/21 Range/Units 07:36 08:48 13:19 RBC (3.80-5.40) m/uL Hgb (11.4-16.0) gm/dL Hct (34.0-46.0) % MCHC (31.0-37.0) g/dL RDW (11.5-15.5) % Plt Count (150-450) k/uL Lymphocytes # (1.0-4.8) k/uL ABG pH 7.49 H (7.35-7.45) ABG pCO2 32 L (35-45) mmHg ABG Total CO2 26 H (19-24) mmol/L ABG O2 Saturation 99.2 H (94-97) % Chloride (98-107) mmol/L Carbon Dioxide (22-30) mmol/L Glucose (74-99) mg/dL POC Glucose (mg/dL) 174 H 149 H (75-99) mg/dL Calcium (8.4-10.2) mg/dL Total Protein (6.3-8.2) g/dL Albumin (3.5-5.0) g/dL Procalcitonin (0.02-0.09) ng/mL Crossmatch 02/20/21 02/20/21 Range/Units 14:45 16:02 RBC (3.80-5.40) m/uL Hgb (11.4-16.0) gm/dL Hct (34.0-46.0) % MCHC (31.0-37.0) g/dL RDW (11.5-15.5) % Plt Count (150-450) k/uL Lymphocytes # (1.0-4.8) k/uL ABG pH (7.35-7.45) ABG pCO2 (35-45) mmHg ABG Total CO2 (19-24) mmol/L ABG O2 Saturation (94-97) % Chloride (98-107) mmol/L Carbon Dioxide (22-30) mmol/L Glucose (74-99) mg/dL POC Glucose (mg/dL) 161 H 168 H (75-99) mg/dL Calcium (8.4-10.2) mg/dL Total Protein (6.3-8.2) g/dL Albumin (3.5-5.0) g/dL Procalcitonin (0.02-0.09) ng/mL Crossmatch Microbiology - Last 24 Hours (Table) 02/18/21 03:30 Blood Culture - Preliminary Blood No Growth after 48 hours 02/18/21 03:40 Blood Culture - Preliminary Blood No Growth after 48 hours Assessment and Plan Assessment: Acute hypoxic respiratory failure Bilateral pneumonia Sepsis Chronic kidney disease Valvular heart disease with mitral regurgitation Altered mental status due to sepsis and pneumonia Baseline history of chronic atrial fibrillation heart failure Testing covidr 19 has been negative Plan: Ventilator support, adjustment as needed Monitor off of levo fed drip Fluid boluses as needed Echocardiogram Gentle rehydration Broad-spectrum antibiotics Bronchodilators IV steroids Follow-up on Rodriguez cultures DVT prophylaxis with Lovenox Further plan of care and recommendation as per clinical response of the patient Time with Patient: Greater than 30
[2021-02-20 17:45] LABS: Glucose,Whole Blood 190 mg/dL (75-99)
[2021-02-20 19:35] LABS: Hypochromasia Marked; MCH 28.7 pg (25.0-35.0); MCHC 31.3 g/dL (31.0-37.0); MCV 91.8 fL (80.0-100.0); Mean Platelet Volume 9.9; Poikilocytosis Moderate; RBC 2.95 m/uL (3.80-5.40); RDW 15.9 % (11.5-15.5); WBC 8.4 k/uL (3.8-10.6)
[2021-02-20 19:38] LABS: HGB 8.5 gm/dL (11.4-16.0); Platelet Count 74 k/uL (150-450)
[2021-02-20] MEDS: CHLORHEXIDINE GLUCONATE 15 ML CUP MUCOUS MEM SCH (20:30)
[2021-02-20] MEDS: LATANOPROST 0.005% OPHTH DROPS 2.5 ML BTL BOTH EYES SCH (20:33)
--- NOTE | 2021-02-20 21:31 | P.PN ---
Progress Note - Text Progress Note Date: 02/20/21 Chief Complaint: Short of breath history of present complaint: This is a very pleasant 85-year-old patient of Dr. Maya. Currently at [facility]. Chronic stable medical conditions include COPD, paroxysmal atrial fibrillation, hypertension, hyperlipidemia, GERD, osteoarthritis, secondary pulmonary hypertension, hypothyroid, rosacea, osteoarthritis, urine stress incontinence,CHF from diastolic dysfunction EF 55- 60%, severe mitral regurgitation, moderate mitral stenosis, moderate tricuspid regurgitation, secondary pulmonary hypertension. Diverticulosis. at her baseline uses a cane and a walker. EMS was called out as patient had been lethargic all day. Patient is complaining that she is not feeling well. One hour prior to the EMS arrival patient became increasingly short of breath. Patient at baseline is 3 L of nasal cannula. And patient became less responsive and breathing worsen. 4 days ago patient had a negative COVID testing. When EMS arrived patient's found to have agonal respiration. Telemetry showed sinus rhythm. Patient is intubated. This afternoon patient has FiO2 15 of PEEP of 5. Drips included propofol and norepinephrine. Telemetry shows sinus rhythm. Admitted with bilateral pneumonia, acute respiratory arrest on ventilator support. Started on IV Zosyn, Levothroid, propofol, IV Solu-Medrol, bronchodilators. Today: Moved from the ER to the ICU. Remains on the ventilator. FiO2 50 and a PEEP of 5. IV propofol. Sinus rhythm. Sedated. Review of systems: Could not obtain patient intubated Active Medications Acetaminophen (Acetaminophen Suppository 650 Mg Supp) 650 mg RECTAL Q4HR PRN PRN Reason: Fever And/ Or Mild Pain Acetaminophen (Acetaminophen Tab 325 Mg Tab) 650 mg PO Q4HR PRN PRN Reason: Fever and/or Mild Pain Albuterol/Ipratropium (Ipratropium-Albuterol 3 Ml Neb) 3 ml INHALATION RT-QID [facility] Last Admin: 02/20/21 20:14 Dose: 3 ml Documented by: Amiodarone HCl (Amiodarone 200 Mg Tab) 200 mg PO DAILY [facility] Last Admin: 02/20/21 10:07 Dose: 200 mg Documented by: Chlorhexidine Gluconate (Chlorhexidine Gluconate 15 Ml Cup) 15 ml MUCOUS MEM BID [facility] Last Admin: 02/20/21 20:30 Dose: 15 ml Documented by: Doxycycline Monohydrate (Doxycycline 100 Mg Cap) 100 mg PO BID [facility] Last Admin: 02/20/21 20:53 Dose: 100 mg Documented by: Enoxaparin Sodium (Enoxaparin 40 Mg/0.4 Ml Syringe) 40 mg SQ DAILY [facility] Last Admin: 02/20/21 10:07 Dose: 40 mg Documented by: Famotidine (Famotidine 20 Mg/2 Ml Vial) 20 mg IV Q12HR [facility] Last Admin: 02/20/21 20:30 Dose: 20 mg Documented by: Furosemide (Furosemide 10 Mg/Ml 4 Ml Vial) 40 mg IV Q12H [facility] Last Admin: 02/20/21 09:51 Dose: 40 mg Documented by: Propofol 1,000 mg/ IV Solution 100 mls @ 0 mls/hr IV .Q0M [facility]; Protocol Last Admin: 02/20/21 20:53 Dose: 50 mcg/kg/min, 24.6 mls/hr Documented by: Piperacillin Sod/Tazobactam (Sod 3.375 gm/ Sodium Chloride) 100 mls @ 25 mls/hr IVPB Q8HR [facility] Last Admin: 02/20/21 16:22 Dose: 25 mls/hr Documented by: Norepinephrine Bitartrate 4 mg (/ Sodium Chloride) 254 mls @ 15.621 mls/hr IV .[id number] [facility]; Protocol Last Admin: 02/20/21 16:21 Dose: Not Given Documented by: Insulin Aspart (Insulin Aspart (Novolog) 100 Unit/Ml Vial) 0 unit SQ Q6H [facility]; Protocol Last Admin: 02/20/21 18:42 Dose: 5 unit Documented by: Latanoprost (Latanoprost 0.005% Ophth Drops 2.5 Ml Btl) 1 drops BOTH EYES HS@2000 [facility] Last Admin: 02/20/21 20:33 Dose: 1 drops Documented by: Levothyroxine Sodium (Levothyroxine 112 Mcg Tab) 112 mcg OG-TUBE HS [facility] Last Admin: 02/20/21 10:07 Dose: 112 mcg Documented by: Losartan Potassium (Losartan 50 Mg Tab) 100 mg PO DAILY [facility] Last Admin: 02/20/21 10:07 Dose: 100 mg Documented by: Methylprednisolone Sodium Succinate (Methylprednisolone Sod Succi 40 Mg/Ml 1 Ml Vial) 40 mg IV Q12HR [facility] Last Admin: 02/20/21 20:30 Dose: 40 mg Documented by: Metoprolol Tartrate (Metoprolol Tartrate 50 Mg Tab) 50 mg PO TID@0500,1300,2100 [facility] Last Admin: 02/20/21 20:29 Dose: Not Given Documented by: Miscellaneous Information (Potassium Replacement Protocol 1 Each Misc) 1 each MISCELLANE DAILY PRN; Protocol PRN Reason: Per Protocol Morphine Sulfate (Morphine Sulfate 4 Mg/Ml Syringe) 3 mg IV Q2HR PRN PRN Reason: Pain Scale 6 to 7 Naloxone HCl (Naloxone 0.4 Mg/Ml 1 Ml Vial) 0.2 mg IV Q2M PRN PRN Reason: Opioid Reversal Ropinirole HCl (Ropinirole Hcl 1 Mg Tab) 2 mg PO HS [facility] Last Admin: 02/20/21 20:53 Dose: 2 mg Documented by: Senna/Docusate Sodium (Sennosides-Docusate Sodium 1 Each Tab) 1 each PO DAILY [facility] Last Admin: 02/20/21 10:08 Dose: Not Given Documented by: Past medical history: Right adnexa growth being followed as an outpatient, COPD, paroxysmal atrial fibrillation, hypertension, hyperlipidemia, COPD, GERD, primary osteoarthritis, colon cancer in 2001, secondary pulmonary hypertension, hypothyroid, rosacea, urinary stress incontinence, osteoarthritis chronic diverticulosis, gastritis duodenitis, colon cancer treated with surgery chemoradiation, home oxygen 2 L, chronic kidney disease stage III, stroke with some speech impairment, hypothyroid,chronic congestive heart failure from diastolic dysfunction EF 55- 60%, severe mitral regurgitation, moderate mitral stenosis, moderate tricuspid regurgitation., chronic thrombocytopenia Social history: [facility] [place] Smoked for 20 years, stopped in 1986, smoked a pack and half Physical examination: VITAL SIGNS: 97.4, 55, 20, 118/49, 100% on the ventilator GENERAL: Laying in bed, intubated EYES: Pupils equal. Conjunctiva normal HEENT: External appearance of nose and ears normal, oral cavity ET tube, NECK: JVD unable to assess; masses not palpable. HEART: First and second heart sounds are normal; edema present LUNGS: Respiratory rate increased, decreased breaths, ABDOMEN: Soft, nontender, liver spleen not palpable, no masses palpable. PSYCH: Patient sedated. EXTREMITIES: Missing right hand fingers, except thumb INVESTIGATIONS, reviewed in the clinical context: February 20: WBC 8.4 hemoglobin 8.5 platelets 74 February 19: WBC 12 hemoglobin 7.4 platelets 122 potassium 3.2 creatinine 1.03 Computed tomography scan of the chest: Negative for PE. Extensive pulmonary airspace consolidation with bilateral pleural effusions. WBC 16.1 hemoglobin 7.9 platelets 176 d-dimer 4.86 ABG pH 7.4 pCO2 38 pO2 208 potassium 4 bun 27 creatinine 1.19 Lactic acid 5.7 and repeat 2.2 proBNP 2900 procalcitonin 0.04 UA showing 1+ protein Coronavirus [PCR] not detected EKG tracing personally reviewed by me-sinus rhythm, left bundle-branch block Chest x-ray film personally reviewed by me-bilateral extensive pulmonary inf iltrates assessment: -bilateral suspected gram-negative pneumonia.-Slow to respond IV Zosyn. Follow with pulmonary -Acute hypoxic respiratory failure, secondary to pneumonia patient went into respiratory arrest-slow to respond On ventilator support. FiO2 60% with a PEEP of 5 -Acute on chronic congestive heart failure exacerbation, from diastolic dysfunction EF 55-60%,-uncontrolled IV Lasix -Acute COPD exacerbation in an [id number] to respond bronchodilators, IV steroids, -Severe mitral regurgitation, moderate mitral stenosis, moderate tricuspid regurgitation Follow clinically -Secondary moderate pulmonary hypertension from COPD and CHF Follow clinically -Essential hypertension- continue beta amara. Amlodipine added -GERD- use PPI -Primary osteoarthritis- use analgesics when necessary -Hypothyroid- continue Synthroid -Chronic urinary stress incontinence- Doll catheter -Chronic diverticulosis- Follow clinically -Chronic gait dysfunction uses walker -Left bundle-branch block, chronic Telemetry -Paroxysmal atrial fibrillation, currently sinus rhythm. -New-onset of thrombocytopenia. Platelet count above 50. Consult hematology Prognosis guarded. Critical. 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
[2021-02-20 22:57] LABS: Glucose,Whole Blood 129 mg/dL (75-99)
[2021-02-20 23:35] LABS: Glucose,Whole Blood 131 mg/dL (75-99)
[2021-02-21 03:36] LABS: Anisocytosis Slight; Basophils % (A) 0 %; Eosinophils # (A) 0.1 k/uL (0-0.7); Eosinophils % (A) 1 %; HCT 25.9 % (34.0-46.0); HGB 8.4 gm/dL (11.4-16.0); Hypochromasia Marked; Lymphocytes # (A) 0.8 k/uL (1.0-4.8); Lymphocytes % (A) 8 %; MCH 29.2 pg (25.0-35.0); MCHC 32.4 g/dL (31.0-37.0); MCV 90.2 fL (80.0-100.0); Mean Platelet Volume 8.8; Monocytes # (A) 0.2 k/uL (0-1.0); Monocytes % (A) 2 %; Neutrophils # (A) 8.2 k/uL (1.3-7.7); Poikilocytosis Marked; RBC 2.88 m/uL (3.80-5.40); RDW 16.2 % (11.5-15.5); WBC 9.3 k/uL (3.8-10.6)
[2021-02-21 03:50] LABS: Magnesium 1.9 mg/dL (1.6-2.3); Potassium 3.8 mmol/L (3.5-5.1)
[2021-02-21] MEDS ORDERED: POTASSIUM BICARBONATE/CIT AC 20 MEQ TABLET.EFF NG-TUBE SCH (05:00)
[2021-02-21] MEDS ORDERED: Magnesium Replacement Protocol 1 EACH MISC MISCELLANE PRN (05:00)
[2021-02-21] MEDS: METOPROLOL TARTRATE 50 MG TAB PO SCH ×3 (05:11→20:43)
[2021-02-21] MEDS: MAGNESIUM SULFATE-D5W PMX 1 GM in DEXTROSE/WATER 1 100ML.BAG IVPB SCH ×2 (05:12→06:22)
[2021-02-21] MEDS: FUROSEMIDE 10 MG/ML 4 ML VIAL IV SCH ×2 (05:12→17:56)
[2021-02-21 05:20] LABS: Glucose,Whole Blood 149 mg/dL (75-99)
[2021-02-21 05:41] LABS: Platelet Count 88 k/uL (150-450)
[2021-02-21 05:48] LABS: ABG Base Excess 3.3 mmol/L; ABG HCO3 26 mmol/L (21-25); ABG Oxygen Saturation 98.1 % (94-97); ABG PCO2 30 mmHg (35-45); ABG PH 7.54 (7.35-7.45); ABG PO2 89 mmHg (83-108); ABG TCO2 27 mmol/L (19-24); Allen Test Performed? Yes
[2021-02-21] MEDS: INSULIN ASPART (NovoLOG) 100 UNIT/ML VIAL SQ SCH ×4 (06:01→23:40)
[2021-02-21] MEDS: NOREPINEPHRINE 4 MG in SODIUM CHLORIDE 0.9% 250 ML IV SCH ×2 (06:23→23:06)
[2021-02-21] MEDS: IPRATROPIUM-ALBUTEROL 3 ML NEB INHALATION SCH ×4 (07:18→19:56)
[2021-02-21] MEDS: FAMOTIDINE 20 MG/2 ML VIAL IV SCH ×2 (08:08→20:45)
[2021-02-21] MEDS: methylPREDNISolone SOD SUCCI 40 MG/ML 1 ML VIAL IV SCH ×2 (08:08→20:45)
[2021-02-21] MEDS: CHLORHEXIDINE GLUCONATE 15 ML CUP MUCOUS MEM SCH ×2 (08:08→20:43)
[2021-02-21] MEDS: SENNOSIDES-DOCUSATE SODIUM 1 EACH TAB PO SCH ×2 (08:09→10:57)
[2021-02-21] MEDS: PIPERACILLIN-TAZOBACTAM 3.375 GM in SODIUM CHLORIDE 0.9% 100 ML IVPB SCH ×3 (08:09→23:40)
[2021-02-21] MEDS: ENOXAPARIN 40 MG/0.4 ML SYRINGE SQ SCH (08:09)
[2021-02-21] MEDS: DOXYCYCLINE 100 MG CAP PO SCH ×2 (08:09→20:43)
[2021-02-21] MEDS: AMIODARONE 200 MG TAB PO SCH (08:09)
--- NOTE | 2021-02-21 08:16 | PN ---
PROGRESS NOTE Mrs. Lopez is an 85-year-old female with known history of mitral valve disease, who presented with symptoms of respiratory failure requiring mechanical ventilation. She remains intubated and sedated. Hemodynamically, she is stable. She is in sinus mechanism. She had an echocardiogram revealed a preserved left ventricular size and systolic function with evidence of grade 3 diastolic dysfunction with a mild aortic stenosis and severe mitral regurgitation and tricuspid regurgitation with severe pulmonary hypertension. Her urine output has been stable. She continues to be on amiodarone 200 mg a day, Lasix 40 mg IV q.12 hours, Cozaar 100 mg daily, metoprolol tartrate 50 mg 3 times a day. PHYSICAL EXAMINATION: Blood pressure 126/50 with the heart rate in the 50s, intubated and sedated. LUNGS: Clear. HEART Regular rate and rhythm. S1, S2. No S3 with a holosystolic murmur in the apex, radiating to the axilla. No diastolic murmur. ABDOMEN: Soft. Positive bowel sounds. No organomegaly. EXTREMITIES: +1 edema. LAB DATA: Lab data revealed BUN and creatinine 21and 0.89. Potassium 3.8. Hemoglobin 8.4, white blood cell of 9.3. Her chest x-ray revealed evidence of congestion bilaterally. IMPRESSION: 1. Respiratory failure requiring mechanical ventilation. 2. History of paroxysmal atrial fibrillation. 3. History of chronic obstructive lung disease. 4. Probable pneumonia. 5. Severe mitral and tricuspid regurgitation. RECOMMENDATION: From the cardiac standpoint, will continue supportive care. I will decrease the dose of her beta amara because of her bradycardia. Follow her hemoglobin and renal function and depending her progress, further recommendation will be made. The prognosis remains guarded. MMODL / IJN: [id number] / [facility]
[2021-02-21 08:52] LABS: T4, Free (Free Thyroxine) 3.61 ng/dL (0.78-2.19)
--- NOTE | 2021-02-21 10:00 | XR ---
EXAMINATION TYPE: XR chest 1V portable DATE OF EXAM: 02/21/2021 Comparison: 02/19/2021 Clinical History: 85-year-old female Tube placement Findings: ET tube tip 1.7 cm from the justo. This could be pulled back 1.5 cm and reassess at follow-up. NG tu be courses below the diaphragm. Heart mildly enlarged. Diffuse interstitial and patchy opacities. Wor sening opacity at the left base. Displaced surgical neck fracture at the proximal left humerus. Impression: 1. ET tube tip 1.7 cm from the justo. Pull back 1.5 cm and reassess at follow-up. 2. Bilateral interstitial and patchy opacities persist. Neither patchy pulmonary edema or multifocal pneumonia. 3. Worsening left basilar airspace disease.
--- NOTE | 2021-02-21 11:02 | CDI ---
Documentation Clarification Form Date: 02/21/2021 10:48:30 AM From: Lety RasmussenJANEEN, CCDS Admit Date: 02/18/2021 06:10:00 AM Patient Name: Nadira Lopez Visit Number: [id number] Discharge Date: ATTENTION: The Clinical Documentation Specialists (CDI) and [facility] Coding Staff appreciate your assistance in clarifying documentation. Please respond to the clarification below the line at the bottom and electronically sign. The CDI & [facility] Coding staff will review the response and follow-up if needed. Please note: Queries are made part of the Legal Health Record. If you have any questions, please contact the author of this message via ITS. Dr. Jona Alfonso: Acute Anemia is documented in the Cardiology Progress Note: "Acute anemia. Further treatment of anemia per primary care team. Additional specificity regarding the type & acuity of anemia is requested. History/Risk Factors per the 02/18 H/P Past Medical History: COPD, Chronic Diastolic CHF, Home Oxygen, Severe Mitral Regurgitation, Moderate Mitral Stenosis, Moderate Tricuspid Regurgitation, Secondary Pulmonary Hypertension, GERD, Primary OA, Hypothyroid, Chronic Urinary Stress Incontinence, GI Bleed, Chronic Diverticulosis, Gastritis, Duodenitits, Colon CA status post Chemoradiation, CKD III, CVA with some speech impairment, Chronic Thrombocytopenia and Paroxysmal Atrial Fibrillation. Clinical indicators: Presented to the ED on 02/18 via EMS with SOB. EMS intubated in field for agonal respirations. Admitted with Acute Respiratory Failure, Elevated D Dimer, Lactic Acidosis & Leukocytosis. Hemoglobin: 02/18: 7.9. 02/19: 7.4; 02/20: 6.7, 8.5; 02/21: 8.4 Hematocrit: 02/18: 25.7; 02/19: 25.2; 02/20: 22.6, 27.0; 02/21: 25.9 Coagulation: PT 11.2, INR 1.1, APTT 20.1, D Dimer 4.86 Treatment 02/18: Intubated on vent, IV Ativan, IV Morphine, IV Propofol, IV Levophed, IV fluid 1,000 mls @ 999 mls/hr q1H, IV fluid 500 mls @ 999 mls/hr q31M, IV Zosyn 02/20 Transfused one unit PRBCs. Please clarify the type and acuity of anemia: [ ] Acute blood loss anemia [ ] Acute on chronic blood loss anemia [ ] Chronic blood loss anemia [ ] Anemia of chronic disease, please specify: [ ] Anemia of chronic kidney disease [ ] Unable to determine [ ] Other, please specify (Template Last Revised: December 2020) Anemia of chronic disease secondary to chronic kidney disease MTDD
--- NOTE | 2021-02-21 11:17 | P.PN ---
Subjective Progress Note Date: 02/21/21 Principal diagnosis: Acute hypoxic respiratory failure Bilateral pneumonia Sepsis Chronic kidney disease Altered mental status due to sepsis and pneumonia Baseline history of chronic atrial fibrillation heart failure Testing covid 19 has been negative 02/21/2021, patient seen eval examined during the rounds labs reviewed medications reviewed care plan discussed with the staff at length, patient is been down to 40% oxygen, been setting remains stable, propofol has been tapered to 15 mics now, patient is arousable, discussed with the respiratory therapist and nurse patient to go on CPAP pressure support. All drips stop the tube feed as well, will do weaning parameters, blood cultures have been negative, medications reviewed, chest x-ray stable ET tube slightly at the level of justo bilateral infiltrates are noted, noted respiratory alkalosis would recommend to do CPAP pressure support trial patient will automatically corrected 02/20/2021, patient seen eval examined during the rounds labs reviewed medications reviewed, patient is currently off of levo fed drip, euvolemic status appears to be present, however ventilator setting continued to have high FiO2 currently patient is on 60% oxygen over next 24 hours will try to wean down the oxygen, patient remains on broad-spectrum antibiotics no fever has been seen, urine output has been adequate, but patient has been replaced, radiographic studies labs reviewed care plan discussed with staff at length if p atient is down to 40% and we will do a CPAP pressure support trial tomorrow morning, 2 feet can be initiated, 02/19/2021, patient seen eval examined during the rounds labs reviewed medications reviewed care plan discussed with the staff at length, patient remains on low dose of levo fed, unable to stop it as earlier this morning we stopped it but blood pressure dropped down requiring a reinitiation of levo fed, will require fluid bolus of the crystalloids 500 mL over 2 hours will be given, patient remains on full ventilator support currently patient is on FiO2 of 60%, with assist control rate of 20, tidal volume is 450, PEEP is 5, given hypotension cannot escalate the PEEP, first we'll try to taper off the levo fed then will taper the oxygen down by increasing PEEP, but cultures no growth so far, chest x-ray bilateral upper and mid lung field predominantly on the right side pneumonia stable ET tube, WBC have been lowered down to 12,000, arterial blood gas stable pO2 is 89, rash M is 3.2 BUN/creatinine improved to 20 and 1.03, currently patient is sedated with propofol drip, patient has a history of significant A. fib with RVR as well as moderate to severe mitral regurgitation, Patient is a 85-year-old [facility] resident brought into emergency department intubated on the field by EMS, she was having respiratory difficulties with argon of respiration, review of the records revealed that patient has a significant history of mood disorder depression hypertension and hypothyroidism, she has prior medical problems significant for atrial fibrillation not on any anticoagulation COPD heart failure dyslipidemia hypertension hypertensive cardiovascular disease and history of pulmonary hypertension history of stroke chronic kidney disease stage III, she used to smoke however stopped smoking several years ago, currently patient is on full ventilator support assist control of 20 breathing 20, PEEP of 5, 50% oxygen, tidal volume is 450, patient is on propofol 30 mics, hemodynamic status is stable patient is on levo fed 0.025, blood pressure is improved to 159/61, heart rate 63 saturation is 98%, EKG revealed left bundle-branch block, labs are significant for leukocytosis wit h WBC count is 16,000, hemoglobin and hematocrit 7.9 and 25, platelet count is 1 76,000, d-dimer is 4.86, lactic acid is up to 5.7 now came down to 2.2, subsequent 1 is 1.2, BUN/creatinine 27 1.19, coated 19 is negative, patient has received a dose of Lovenox and Zosyn and fluid boluses 1.5 L Objective - Vital Signs Vital signs: Vital Signs Temp 97.6 F 02/21/21 08:00 Pulse 57 L 02/21/21 11:00 Resp 20 02/21/21 11:00 BP 129/56 02/21/21 11:00 Pulse Ox 99 02/21/21 11:00 Intake & Output 02/20/21 02/21/21 02/21/21 18:59 06:59 18:59 Intake Total 648.764 600.4 306.535 Output Total 1825 599 285 Balance -1176.236 1.4 21.535 Weight 82 kg Intake: IV 50 420 120 0.9ns @ kvo 50 120 20 Magnesium Sulfate-D5w Pmx 200 1 gm In Dextrose/Water 1 100ml.bag @ 100 mls/hr IVPB Q1H [facility] Rx#: [id number] Piperacillin-Tazobactam 3 100 100 .375 gm In Sodium Chloride 0.9% 100 ml @ 25 mls/hr IVPB Q8HR [facility] Rx# :[id number] Intake, IV Titration 288.764 180.4 146.535 Amount propofoL 1,000 mg In 288.764 180.4 146.535 Empty Bag 1 bag @ Titrate IV .Q0M [facility] Rx#: [id number] Blood Product 310 Rc Irr As1 Unit 310 [id number] Other 40 Output: Urine 1825 599 285 Other: Voiding Method Indwelling Catheter Indwelling Catheter # Bowel Movements 1 - Exam - Constitutional General appearance: average body habitus, disheveled - EENT Eyes: PERRLA Ears: bilateral: normal - Neck Neck: lymphadenopathy Carotids: bilateral: upstroke normal - Respiratory Respiratory: bilateral: diminished - Cardiovascular Rhythm: regular Heart sounds: normal: S1, S2 - Gastrointestinal General gastrointestinal: decreased bowel sounds, distended, soft - Neurologic Patient is intubated sedated on full ventilator support - Labs CBC & Chem 7: 02/21/21 03:10 02/21/21 03:10 Labs: Abnormal Lab Results - Last 24 Hours (Table) 02/18/21 02/20/21 02/20/21 Range/Units 07:40 13:19 14:45 RBC (3.80-5.40) m/uL Hgb (11.4-16.0) gm/dL Hct (34.0-46.0) % RDW (11.5-15.5) % Plt Count (150-450) k/uL Neutrophils # (1.3-7.7) k/uL Lymphocytes # (1.0-4.8) k/uL ABG pH (7.35-7.45) ABG pCO2 (35-45) mmHg ABG HCO3 (21-25) mmol/L ABG Total CO2 (19-24) mmol/L ABG O2 Saturation (94-97) % Chloride (98-107) mmol/L BUN (7-17) mg/dL Glucose (74-99) mg/dL POC Glucose (mg/dL) 149 H 161 H (75-99) mg/dL Calcium (8.4-10.2) mg/dL TSH (0.465-4.680) mIU/L Free T4 (0.78-2.19) ng/dL Crossmatch See Detail 02/20/21 02/20/21 02/20/21 Range/Units 16:02 17:44 18:58 RBC 2.95 L (3.80-5.40) m/uL Hgb 8.5 L D (11.4-16.0) gm/dL Hct 27.0 L (34.0-46.0) % RDW 15.9 H (11.5-15.5) % Plt Count 74 L (150-450) k/uL Neutrophils # (1.3-7.7) k/uL Lymphocytes # (1.0-4.8) k/uL ABG pH (7.35-7.45) ABG pCO2 (35-45) mmHg ABG HCO3 (21-25) mmol/L ABG Total CO2 (19-24) mmol/L ABG O2 Saturation (94-97) % Chloride (98-107) mmol/L BUN (7-17) mg/dL Glucose (74-99) mg/dL POC Glucose (mg/dL) 168 H 190 H (75-99) mg/dL Calcium (8.4-10.2) mg/dL TSH (0.465-4.680) mIU/L Free T4 (0.78-2.19) ng/dL Crossmatch 02/20/21 02/20/21 02/21/21 Range/Units 22:55 23:34 03:10 RBC (3.80-5.40) m/uL Hgb (11.4-16.0) gm/dL Hct (34.0-46.0) % RDW (11.5-15.5) % Plt Count (150-450) k/uL Neutrophils # (1.3-7.7) k/uL Lymphocytes # (1.0-4.8) k/uL ABG pH (7.35-7.45) ABG pCO2 (35-45) mmHg ABG HCO3 (21-25) mmol/L ABG Total CO2 (19-24) mmol/L ABG O2 Saturation (94-97) % Chloride 108 H (98-107) mmol/L BUN 22 H (7-17) mg/dL Glucose 138 H (74-99) mg/dL POC Glucose (mg/dL) 129 H 131 H (75-99) mg/dL Calcium 8.0 L (8.4-10.2) mg/dL TSH (0.465-4.680) mIU/L Free T4 (0.78-2.19) ng/dL Crossmatch 02/21/21 02/21/21 02/21/21 Range/Units 03:10 03:10 05:19 RBC 2.88 L (3.80-5.40) m/uL Hgb 8.4 L (11.4-16.0) gm/dL Hct 25.9 L (34.0-46.0) % RDW 16.2 H (11.5-15.5) % Plt Count 88 L (150-450) k/uL Neutrophils # 8.2 H (1.3-7.7) k/uL Lymphocytes # 0.8 L (1.0-4.8) k/uL ABG pH (7.35-7.45) ABG pCO2 (35-45) mmHg ABG HCO3 (21-25) mmol/L ABG Total CO2 (19-24) mmol/L ABG O2 Saturation (94-97) % Chloride (98-107) mmol/L BUN (7-17) mg/dL Glucose (74-99) mg/dL POC Glucose (mg/dL) 149 H (75-99) mg/dL Calcium (8.4-10.2) mg/dL TSH 0.147 L (0.465-4.680) mIU/L Free T4 3.61 H (0.78-2.19) ng/dL Crossmatch 02/21/21 Range/Units 05:26 RBC (3.80-5.40) m/uL Hgb (11.4-16.0) gm/dL Hct (34.0-46.0) % RDW (11.5-15.5) % Plt Count (150-450) k/uL Neutrophils # (1.3-7.7) k/uL Lymphocytes # (1.0-4.8) k/uL ABG pH 7.54 H (7.35-7.45) ABG pCO2 30 L (35-45) mmHg ABG HCO3 26 H (21-25) mmol/L ABG Total CO2 27 H (19-24) mmol/L ABG O2 Saturation 98.1 H (94-97) % Chloride (98-107) mmol/L BUN (7-17) mg/dL Glucose (74-99) mg/dL POC Glucose (mg/dL) (75-99) mg/dL Calcium (8.4-10.2) mg/dL TSH (0.465-4.680) mIU/L Free T4 (0.78-2.19) ng/dL Crossmatch Microbiology - Last 24 Hours (Table) 02/18/21 03:40 Blood Culture - Preliminary Blood No Growth after 72 hours 02/18/21 03:30 Blood Culture - Preliminary Blood No Growth after 72 hours Assessment and Plan Assessment: Acute hypoxic respiratory failure Bilateral pneumonia Sepsis Chronic kidney disease Valvular heart disease with mitral regurgitation Altered mental status due to sepsis and pneumonia Baseline history of chronic atrial fibrillation heart failure Testing covidr 19 has been negative Plan: Ventilator support, adjustment as needed Monitor off of levo fed drip Fluid boluses as needed Echocardiogram results reviewed ejection fraction is 60%,, with mild to moderate aortic stenosis, severe pulmonary hypertension was noted right ventricle systolic pressure estimated to be 76, Gentle rehydration Broad-spectrum antibiotics Bronchodilators IV steroids Follow-up on Rodriguez cultures DVT prophylaxis with Lovenox Further plan of care and recommendation as per clinical response of the patient We will do trial of Lasix Time with Patient: Greater than 30
[2021-02-21 11:44] LABS: Glucose,Whole Blood 123 mg/dL (75-99)
--- NOTE | 2021-02-21 15:33 | P.CONS ---
History of Present Illness - Reason for Consult Consult date: 02/21/21 thrombocytopenia Requesting physician: Jona Alfonso - Chief Complaint BRADLEY - History of Present Illness Unable to obtain history patient is ventilated and sedated. Chart reviewed. Anemia and thrombocytopenia been present since at least 2016. Review of Systems ROS unobtainable: due to endotracheal tube Past Medical History Past Medical History: Atrial Fibrillation, Asthma, Cancer, Heart Failure, COPD, CVA/TIA, Eye Disorder, GERD/Reflux, GI Bleed, Hyperlipidemia, Hypertension, Osteoarthritis (OA), Pneumonia, Renal Disease, Skin Disorder, Thyroid Disorder, Vascular Disorder Additional Past Medical History / Comment(s): Pt recently admitted to [facility] on 01/06/21 with exacerbation COPD/pne. Other hx: Lower GI bleed with acute blood loss anemia, thrombocytopenia, gastritis/duodenitis, 2002 colon cancer with surgery/chemo and radiation, chronic hypoxic respiratory failure, home O2 at 2L/NC ATC, pulmonary HTN, pleurisy, chronic kidney disease stage III, CVA with slight speech difficulty, heart murmur, glaucoma bilaterally, hypothyroid, rosacia, UTIs, urine stress incontinence, constipation, diverticular disease, benign polyps, arthritis multiple joints, chronic low back pain, past fall with L hip fracture and R patellar fracture, rib fracture, L humeral fracture with L shoulder pain, sinus problems, 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 done(donor site was abd), bilateral carpal tunnel releases, R patella fused d/t fracture, krista cataracts, colonoscopy/polypectomy Past Anesthesia/Blood Transfusion Reactions: No Reported Reaction Smoking Status: Former smoker - Past Family History Father Family Medical History: Liver Disease Additional Family Medical History / Comment(s): ETOH abuse - cirrhosis of the liver Mother Family Medical History: Vascular Disorder Additional Family Medical History / Comment(s): Brain aneurysm Medications and Allergies Home Medications Medication Instructions Recorded Confirmed Type Citalopram Hydrobromide [CeleXA] 20 mg PO DAILY 11/30/16 02/18/21 History rOPINIRole HCL [Requip] 2 mg PO HS 11/02/17 02/18/21 History Ferrous Sulfate [Feosol] 325 mg PO BID 12/25/18 02/18/21 History Ascorbic Acid [Vitamin C] 500 mg PO DAILY 12/16/20 02/18/21 History Latanoprost Ophth [Xalatan 0.005%] 1 drop BOTH EYES HS@199912/16/20 02/18/21 History Metoprolol Tartrate [Lopressor] 50 mg PO TID@0500,1300,2100 12/16/20 02/18/21 History Sennosides-Docusate Sodium 1 tab PO DAILY #1 tablet 12/22/20 02/18/21 Rx [Senokot-S] Aspirin 81 mg PO DAILY 01/06/21 02/18/21 History Levothyroxine Sodium [Synthroid] 112 mcg PO HS 01/06/21 02/18/21 History Losartan Potassium 100 mg PO DAILY 01/06/21 02/18/21 History Amiodarone [Cordarone] 200 mg PO DAILY tab 01/08/21 02/18/21 Rx Famotidine [Pepcid] 20 mg PO DAILY tab 01/09/21 02/18/21 Rx Furosemide [Lasix] 40 mg PO DAILY tab 01/09/21 02/18/21 Rx HYDROcodone/APAP 10-325MG [[place] 1 tab PO Q12H PRN #4 tab 01/09/21 02/18/21 Rx 10-325] Ipratropium-Albuterol Nebulize 3 ml INHALATION RT-Q4H PRN ml 01/09/21 02/18/21 Rx [Duoneb 0.5 mg-3 mg/3 ml Soln] Cholecalciferol [Vitamin D3 (25 25 mcg PO DAILY 02/18/21 02/18/21 History Mcg = 1000 Iu)] Spironolactone 25 mg PO DAILY 02/18/21 02/18/21 History traMADol HCl [Ultram] 50 mg PO Q6HR PRN 02/18/21 02/18/21 History Allergies Allergy/AdvReac Type Severity Reaction Status Date / Time codeine AdvReac does not Verified 02/18/21 06:[address] it makes her feel sulfamethoxazole AdvReac does not Verified 02/18/21 06:56 [From Bactrim] like the way it makes her feel trimethoprim [From Bactrim] AdvReac does not Verified 02/18/21 06:[address] it makes her feel Physical Exam Vitals: Vital Signs Temp Pulse Resp BP Pulse Ox 02/21/21 10:00 53 L 20 130/61 98 02/21/21 09:00 58 L 20 132/62 100 02/21/21 08:00 97.6 F 57 L 20 130/61 100 02/21/21 07:36 56 L 02/21/21 07:27 57 L 02/21/21 07:00 55 L 20 126/46 100 02/21/21 06:00 59 L 20 127/49 98 02/21/21 05:00 61 20 128/50 98 02/21/21 04:00 97.3 F L 61 20 120/50 98 02/21/21 03:00 58 L 20 123/51 98 02/21/21 02:00 60 20 129/50 97 02/21/21 01:00 62 20 123/51 98 02/21/21 00:36 60 20 123/51 98 02/21/21 00:00 98.5 F 58 L 20 122/45 99 02/20/21 23:00 97.6 F 61 20 121/44 99 02/20/21 22:00 65 20 120/52 99 02/20/21 21:00 62 20 115/42 99 02/20/21 20:41 62 02/20/21 20:14 54 L 02/20/21 20:00 97.4 F L 56 L 20 101/38 99 02/20/21 19:00 63 20 120/41 100 02/20/21 18:07 58 L 02/20/21 18:00 56 L 20 105/41 100 02/20/21 17:57 58 L 02/20/21 17:00 56 L 20 117/48 99 02/20/21 16:00 54 L 20 118/49 99 02/20/21 15:26 97.4 F L 55 L 20 118/49 100 02/20/21 15:00 97.4 F L 61 16 136/67 99 02/20/21 14:30 61 20 164/63 99 02/20/21 14:21 95.4 F L 59 L 20 155/64 100 02/20/21 13:40 58 L 20 159/61 99 02/20/21 13:30 60 14 157/59 99 02/20/21 13:00 59 L 20 155/64 100 02/20/21 12:12 95.4 F L 58 L 20 158/63 02/20/21 12:00 58 L 20 164/71 99 02/20/21 11:50 53 L 20 164/71 100 02/20/21 11:40 52 L 3 L 148/64 100 02/20/21 11:39 52 L 02/20/21 11:32 56 L 20 164/71 99 02/20/21 11:00 50 L 20 157/64 98 Intake and Output 02/20/21 02/21/21 02/21/21 22:59 06:59 14:59 Intake Total 490 570.4 304.198 Output Total 551 473 245 Balance -61 97.4 59.198 Intake: IV 80 390 120 0.9ns @ kvo 80 90 20 Magnesium Sulfate-D5w Pmx 200 1 gm In Dextrose/Water 1 100ml.bag @ 100 mls/hr IVPB Q1H [facility] Rx#: [id number] Piperacillin-Tazobactam 3 100 100 .375 gm In Sodium Chloride 0.9% 100 ml @ 25 mls/hr IVPB Q8HR [facility] Rx# :[id number] Intake, IV Titration 100 180.4 144.198 Amount propofoL 1,000 mg In 100 180.4 144.198 Empty Bag 1 bag @ Titrate IV .Q0M [facility] Rx#: [id number] Blood Product 310 Rc Irr As1 Unit 310 [id number] Other 40 Output: Urine 551 473 245 Other: Voiding Method Indwelling Catheter Indwelling Catheter - Constitutional right hand deformity General appearance: obese - EENT Eyes: anicteric sclerae - Neck Neck: no lymphadenopathy - Respiratory Respiratory: bilateral: CTA (vent) - Cardiovascular upper extremity swelling Rhythm: regular Heart sounds: normal: S1, S2 Abnormal Heart Sounds: no systolic murmur, no diastolic murmur, no rub, no S3 Gallop, no S4 Gallop, no click, no other leg Peripheral Edema: bilateral: None - Gastrointestinal General gastrointestinal: no absent bowel sounds, no decreased bowel sounds, no distended, no hepatomegaly, no hyperactive bowel sounds, normal bowel sounds, no organomegaly, no rigid, no scaphoid, soft, no splenomegaly, no tenderness, no umbilical hernia, no ventral hernia - Neurologic toes move with plantar stimulation - Musculoskeletal unable to assess - Psychiatric Psychiatric: no A&O x's 3, no appropriate affect, no intact judgment & insight Results CBC & Chem 7: 02/21/21 03:10 02/21/21 03:10 Labs: Abnormal Lab Results - Last 24 Hours (Table) 02/18/21 02/20/21 02/20/21 Range/Units 07:40 13:19 14:45 RBC (3.80-5.40) m/uL Hgb (11.4-16.0) gm/dL Hct (34.0-46.0) % RDW (11.5-15.5) % Plt Count (150-450) k/uL Neutrophils # (1.3-7.7) k/uL Lymphocytes # (1.0-4.8) k/uL ABG pH (7.35-7.45) ABG pCO2 (35-45) mmHg ABG HCO3 (21-25) mmol/L ABG Total CO2 (19-24) mmol/L ABG O2 Saturation (94-97) % Chloride (98-107) mmol/L BUN (7-17) mg/dL Glucose (74-99) mg/dL POC Glucose (mg/dL) 149 H 161 H (75-99) mg/dL Calcium (8.4-10.2) mg/dL TSH (0.465-4.680) mIU/L Free T4 (0.78-2.19) ng/dL Crossmatch See Detail 02/20/21 02/20/21 02/20/21 Range/Units 16:02 17:44 18:58 RBC 2.95 L (3.80-5.40) m/uL Hgb 8.5 L D (11.4-16.0) gm/dL Hct 27.0 L (34.0-46.0) % RDW 15.9 H (11.5-15.5) % Plt Count 74 L (150-450) k/uL Neutrophils # (1.3-7.7) k/uL Lymphocytes # (1.0-4.8) k/uL ABG pH (7.35-7.45) ABG pCO2 (35-45) mmHg ABG HCO3 (21-25) mmol/L ABG Total CO2 (19-24) mmol/L ABG O2 Saturation (94-97) % Chloride (98-107) mmol/L BUN (7-17) mg/dL Glucose (74-99) mg/dL POC Glucose (mg/dL) 168 H 190 H (75-99) mg/dL Calcium (8.4-10.2) mg/dL TSH (0.465-4.680) mIU/L Free T4 (0.78-2.19) ng/dL Crossmatch 02/20/21 02/20/21 02/21/21 Range/Units 22:55 23:34 03:10 RBC (3.80-5.40) m/uL Hgb (11.4-16.0) gm/dL Hct (34.0-46.0) % RDW (11.5-15.5) % Plt Count (150-450) k/uL Neutrophils # (1.3-7.7) k/uL Lymphocytes # (1.0-4.8) k/uL ABG pH (7.35-7.45) ABG pCO2 (35-45) mmHg ABG HCO3 (21-25) mmol/L ABG Total CO2 (19-24) mmol/L ABG O2 Saturation (94-97) % Chloride 108 H (98-107) mmol/L BUN 22 H (7-17) mg/dL Glucose 138 H (74-99) mg/dL POC Glucose (mg/dL) 129 H 131 H (75-99) mg/dL Calcium 8.0 L (8.4-10.2) mg/dL TSH (0.465-4.680) mIU/L Free T4 (0.78-2.19) ng/dL Crossmatch 02/21/21 02/21/21 02/21/21 Range/Units 03:10 03:10 05:19 RBC 2.88 L (3.80-5.40) m/uL Hgb 8.4 L (11.4-16.0) gm/dL Hct 25.9 L (34.0-46.0) % RDW 16.2 H (11.5-15.5) % Plt Count 88 L (150-450) k/uL Neutrophils # 8.2 H (1.3-7.7) k/uL Lymphocytes # 0.8 L (1.0-4.8) k/uL ABG pH (7.35-7.45) ABG pCO2 (35-45) mmHg ABG HCO3 (21-25) mmol/L ABG Total CO2 (19-24) mmol/L ABG O2 Saturation (94-97) % Chloride (98-107) mmol/L BUN (7-17) mg/dL Glucose (74-99) mg/dL POC Glucose (mg/dL) 149 H (75-99) mg/dL Calcium (8.4-10.2) mg/dL TSH 0.147 L (0.465-4.680) mIU/L Free T4 3.61 H (0.78-2.19) ng/dL Crossmatch 02/21/21 Range/Units 05:26 RBC (3.80-5.40) m/uL Hgb (11.4-16.0) gm/dL Hct (34.0-46.0) % RDW (11.5-15.5) % Plt Count (150-450) k/uL Neutrophils # (1.3-7.7) k/uL Lymphocytes # (1.0-4.8) k/uL ABG pH 7.54 H (7.35-7.45) ABG pCO2 30 L (35-45) mmHg ABG HCO3 26 H (21-25) mmol/L ABG Total CO2 27 H (19-24) mmol/L ABG O2 Saturation 98.1 H (94-97) % Chloride (98-107) mmol/L BUN (7-17) mg/dL Glucose (74-99) mg/dL POC Glucose (mg/dL) (75-99) mg/dL Calcium (8.4-10.2) mg/dL TSH (0.465-4.680) mIU/L Free T4 (0.78-2.19) ng/dL Crossmatch Microbiology - Last 24 Hours (Table) 02/18/21 03:40 Blood Culture - Preliminary Blood No Growth after 72 hours 02/18/21 03:30 Blood Culture - Preliminary Blood No Growth after [address] scan - chest: report reviewed Assessment and Plan (1) Bicytopenia Narrative/Plan: Bicytopenia noted as far back as 2017. You can see where patient's counts have decreased during episodes of illness/admissions. Cytopenia workup has been ordered as no history of hematological work up in this medical record. Also, HIT antibody has been ordered based on change in plt count and being on lovenox. transfuse to keep hemoglobin 7 or higher unless symptomatic. Transfuse to keep platelets greater than 10,000 unless his bleeding. With infection, platelets typically above 20K and 30,000 or more preferred. Again always monitoring for symptoms. Current Visit: Yes Status: Chronic Priority: High Code(s): D75.89 - OTHER SPECIFIED DISEASES OF BLOOD AND BLOOD-FORMING ORGANS SNOMED Code(s): 50231190
[2021-02-21 17:38] LABS: Glucose,Whole Blood 161 mg/dL (75-99)
--- NOTE | 2021-02-21 20:15 | P.PN ---
Progress Note - Text Progress Note Date: 02/21/21 Chief Complaint: Short of breath history of present complaint: This is a very pleasant 85-year-old patient of Dr. Maya. Currently at [facility]. Chronic stable medical conditions include COPD, paroxysmal atrial fibrillation, hypertension, hyperlipidemia, GERD, osteoarthritis, secondary pulmonary hypertension, hypothyroid, rosacea, osteoarthritis, urine stress incontinence,CHF from diastolic dysfunction EF 55- 60%, severe mitral regurgitation, moderate mitral stenosis, moderate tricuspid regurgitation, secondary pulmonary hypertension. Diverticulosis. at her baseline uses a cane and a walker. EMS was called out as patient had been lethargic all day. Patient is complaining that she is not feeling well. One hour prior to the EMS arrival patient became increasingly short of breath. Patient at baseline is 3 L of nasal cannula. And patient became less responsive and breathing worsen. 4 days ago patient had a negative COVID testing. When EMS arrived patient's found to have agonal respiration. Telemetry showed sinus rhythm. Patient is intubated. This afternoon patient has FiO2 15 of PEEP of 5. Drips included propofol and norepinephrine. Telemetry shows sinus rhythm. Admitted with bilateral pneumonia, acute respiratory arrest on ventilator support. Started on IV Zosyn, Levothroid, propofol, IV Solu-Medrol, bronchodilators. Today: ICU. Ventilator: FiO2 40 and a PEEP of 5. Patient is off to prevent. Sinus rhythm. Review of systems: Could not obtain patient intubated Active Medications Acetaminophen (Acetaminophen Suppository 650 Mg Supp) 650 mg RECTAL Q4HR PRN PRN Reason: Fever And/ Or Mild Pain Acetaminophen (Acetaminophen Tab 325 Mg Tab) 650 mg PO Q4HR PRN PRN Reason: Fever and/or Mild Pain Albuterol/Ipratropium (Ipratropium-Albuterol 3 Ml Neb) 3 ml INHALATION RT-QID [facility] Last Admin: 02/21/21 19:56 Dose: 3 ml Documented by: Amiodarone HCl (Amiodarone 200 Mg Tab) 200 mg PO DAILY [facility] Last Admin: 02/21/21 08:09 Dose: 200 mg Documented by: Chlorhexidine Gluconate (Chlorhexidine Gluconate 15 Ml Cup) 15 ml MUCOUS MEM BID [facility] Last Admin: 02/21/21 08:08 Dose: 15 ml Documented by: Doxycycline Monohydrate (Doxycycline 100 Mg Cap) 100 mg PO BID [facility] Last Admin: 02/21/21 08:09 Dose: 100 mg Documented by: Enoxaparin Sodium (Enoxaparin 40 Mg/0.4 Ml Syringe) 40 mg SQ DAILY [facility] Last Admin: 02/21/21 08:09 Dose: 40 mg Documented by: Famotidine (Famotidine 20 Mg/2 Ml Vial) 20 mg IV Q12HR [facility] Last Admin: 02/21/21 08:08 Dose: 20 mg Documented by: Furosemide (Furosemide 10 Mg/Ml 4 Ml Vial) 40 mg IV Q12H [facility] Last Admin: 02/21/21 17:56 Dose: 40 mg Documented by: Propofol 1,000 mg/ IV Solution 100 mls @ 0 mls/hr IV .Q0M [facility]; Protocol Last Admin: 02/21/21 15:52 Dose: 50 mcg/kg/min, 24.6 mls/hr Documented by: Piperacillin Sod/Tazobactam (Sod 3.375 gm/ Sodium Chloride) 100 mls @ 25 mls/hr IVPB Q8HR [facility] Last Admin: 02/21/21 15:52 Dose: 25 mls/hr Documented by: Norepinephrine Bitartrate 4 mg (/ Sodium Chloride) 254 mls @ 15.621 mls/hr IV .[id number] [facility]; Protocol Last Admin: 02/21/21 06:23 Dose: Not Given Documented by: Insulin Aspart (Insulin Aspart (Novolog) 100 Unit/Ml Vial) 0 unit SQ Q6H [facility]; Protocol Last Admin: 02/21/21 17:55 Dose: 3 unit Documented by: Latanoprost (Latanoprost 0.005% Ophth Drops 2.5 Ml Btl) 1 drops BOTH EYES HS@2000 [facility] Last Admin: 02/20/21 20:33 Dose: 1 drops Documented by: Levothyroxine Sodium (Levothyroxine 112 Mcg Tab) 112 mcg OG-TUBE HS [facility] Last Admin: 02/20/21 10:07 Dose: 112 mcg Documented by: Losartan Potassium (Losartan 50 Mg Tab) 100 mg PO DAILY [facility] Last Admin: 02/20/21 10:07 Dose: 100 mg Documented by: Methylprednisolone Sodium Succinate (Methylprednisolone Sod Succi 40 Mg/Ml 1 Ml Vial) 40 mg IV Q12HR [facility] Last Admin: 02/21/21 08:08 Dose: 40 mg Documented by: Metoprolol Tartrate (Metoprolol Tartrate 50 Mg Tab) 50 mg PO BID [facility] Last Admin: 02/21/21 07:56 Dose: Not Given Documented by: Miscellaneous Information (Potassium Replacement Protocol 1 Each Misc) 1 each MISCELLANE DAILY PRN; Protocol PRN Reason: Per Protocol Miscellaneous Information (Magnesium Replacement Protocol 1 Each Misc) 1 each MISCELLANE DAILY PRN; Protocol PRN Reason: Per Protocol Morphine Sulfate (Morphine Sulfate 4 Mg/Ml Syringe) 3 mg IV Q2HR PRN PRN Reason: Pain Scale 6 to 7 Naloxone HCl (Naloxone 0.4 Mg/Ml 1 Ml Vial) 0.2 mg IV Q2M PRN PRN Reason: Opioid Reversal Ropinirole HCl (Ropinirole Hcl 1 Mg Tab) 2 mg PO HS [facility] Last Admin: 02/20/21 20:53 Dose: 2 mg Documented by: Senna/Docusate Sodium (Sennosides-Docusate Sodium 1 Each Tab) 1 each PO DAILY [facility] Last Admin: 02/21/21 10:57 Dose: Not Given Documented by: Past medical history: Right adnexa growth being followed as an outpatient, COPD, paroxysmal atrial fibrillation, hypertension, hyperlipidemia, COPD, GERD, primary osteoarthritis, colon cancer in 2001, secondary pulmonary hypertension, hypothyroid, rosacea, urinary stress incontinence, osteoarthritis chronic diverticulosis, gastritis duodenitis, colon cancer treated with surgery chemoradiation, home oxygen 2 L, chronic kidney disease stage III, stroke with some speech impairment, hypothyroid,chronic congestive heart failure from diastolic dysfunction EF 55- 60%, severe mitral regurgitation, moderate mitral stenosis, moderate tricuspid regurgitation., chronic thrombocytopenia Social history: At [facility] Smoked for 20 years, stopped in 1986, smoked a pack and half Physical examination: VITAL SIGNS: 97.4, 64, 20, 132.62, 100% on the ventilator GENERAL: Laying in bed, intubated EYES: Pupils equal. Conjunctiva normal HEENT: External appearance of nose and ears normal, oral cavity ET tube, NECK: JVD unable to assess; masses not palpable. HEART: First and second heart sounds are normal; edema present LUNGS: Respiratory rate increased, decreased breaths, ABDOMEN: Soft, nontender, liver spleen not palpable, no masses palpable. PSYCH: Unable to assess. EXTREMITIES: Missing right hand fingers, except thumb INVESTIGATIONS, reviewed in the clinical context: February 21: WBC 9.3 hemoglobin 8.4 platelets 88 potassium 3.8 creatinine 0.89 TSH 0.14 T4 3 0.61 February 20: WBC 8.4 hemoglobin 8.5 platelets 74 February 19: WBC 12 hemoglobin 7.4 platelets 122 potassium 3.2 creatinine 1.03 Computed tomography scan of the chest: Negative for PE. Extensive pulmonary airspace consolidation with bilateral pleural effusions. WBC 16.1 hemoglobin 7.9 platelets 176 d-dimer 4.86 ABG pH 7.4 pCO2 38 pO2 208 potassium 4 bun 27 creatinine 1.19 Lactic acid 5.7 and repeat 2.2 proBNP 2900 procalcitonin 0.04 UA showing 1+ protein Coronavirus [PCR] not detected EKG tracing personally reviewed by me-sinus rhythm, left bundle-branch block Chest x-ray film personally reviewed by me-bilateral extensive pulmonary infiltrates assessment: -bilateral suspected gram-negative pneumonia. IV Zosyn. Follow with pulmonary -Acute hypoxic respiratory failure, secondary to pneumonia patient went into respiratory some improvement On ventilator support. FiO2 40% % with a PEEP of 5 -Acute on chronic congestive heart failure exacerbation, from diastolic dysfunction EF 55-60%,-uncontrolled IV Lasix -Acute COPD exacerbation in an [id number] to respond bronchodilators, IV steroids, -Severe mitral regurgitation, moderate mitral stenosis, moderate tricuspid regurgitation Follow clinically -Secondary moderate pulmonary hypertension from COPD and CHF Follow clinically -Essential hypertension- continue beta amara. Amlodipine added -GERD- use PPI -Primary osteoarthritis- use analgesics when necessary -Hypothyroid- continue Synthroid -Chronic urinary stress incontinence- Doll catheter -Chronic diverticulosis- Follow clinically -Chronic gait dysfunction uses walker -Left bundle-branch block, chronic Telemetry -Paroxysmal atrial fibrillation, currently sinus rhythm. -New-onset of thrombocytopenia. Platelet count above 50. Consult hematology Continue current medication treatment plan. Hoping patient can get extubated
[2021-02-21] MEDS: LEVOTHYROXINE 112 MCG TAB OG-TUBE SCH (20:44)
[2021-02-21] MEDS: LATANOPROST 0.005% OPHTH DROPS 2.5 ML BTL BOTH EYES SCH (20:46)
[2021-02-21 23:36] LABS: Glucose,Whole Blood 147 mg/dL (75-99)
[2021-02-22 00:14] LABS: Protein, Total 5.2 g/dL (6.2-8.2)
[2021-02-22 00:16] LABS: Ferritin 142.3 ng/mL (10.0-291.0)
[2021-02-22 00:24] LABS: % Iron Saturation 9.79 (12.00-45.00)
[2021-02-22 03:51] LABS: Anisocytosis Slight; HCT 25.7 % (34.0-46.0); HGB 7.8 gm/dL (11.4-16.0); Hypochromasia Marked; MCH 28.3 pg (25.0-35.0); MCHC 30.5 g/dL (31.0-37.0); MCV 92.7 fL (80.0-100.0); Mean Platelet Volume 9.5; Poikilocytosis Moderate; RBC 2.77 m/uL (3.80-5.40); RDW 16.1 % (11.5-15.5); WBC 7.5 k/uL (3.8-10.6)
[2021-02-22 04:22] LABS: Potassium 3.6 mmol/L (3.5-5.1)
[2021-02-22 04:29] LABS: Platelet Count 85 k/uL (150-450)
[2021-02-22] MEDS ORDERED: Potassium Replacement Protocol 1 EACH MISC MISCELLANE PRN (04:51)
[2021-02-22] MEDS ORDERED: POTASSIUM BICARBONATE/CIT AC 20 MEQ TABLET.EFF NG-TUBE SCH (05:00)
[2021-02-22] MEDS: INSULIN ASPART (NovoLOG) 100 UNIT/ML VIAL SQ SCH ×3 (05:09→18:35)
[2021-02-22] MEDS: FUROSEMIDE 10 MG/ML 4 ML VIAL IV SCH (05:09)
[2021-02-22 05:43] LABS: ABG Base Excess 3.2 mmol/L; ABG HCO3 26 mmol/L (21-25); ABG PCO2 29 mmHg (35-45); ABG PH 7.55 (7.35-7.45); ABG PO2 103 mmHg (83-108); ABG TCO2 26 mmol/L (19-24); Allen Test Performed? Yes
[2021-02-22] MEDS: PIPERACILLIN-TAZOBACTAM 3.375 GM in SODIUM CHLORIDE 0.9% 100 ML IVPB SCH ×2 (08:25→16:06)
[2021-02-22] MEDS: ENOXAPARIN 40 MG/0.4 ML SYRINGE SQ SCH (08:25)
[2021-02-22] MEDS: FAMOTIDINE 20 MG/2 ML VIAL IV SCH ×2 (08:26→20:27)
[2021-02-22] MEDS: methylPREDNISolone SOD SUCCI 40 MG/ML 1 ML VIAL IV SCH ×2 (08:26→16:06)
[2021-02-22] MEDS: AMIODARONE 200 MG TAB PO SCH (08:26)
[2021-02-22] MEDS: CHLORHEXIDINE GLUCONATE 15 ML CUP MUCOUS MEM SCH ×2 (08:26→20:27)
[2021-02-22] MEDS: SENNOSIDES-DOCUSATE SODIUM 1 EACH TAB PO SCH (08:30)
[2021-02-22] MEDS: METOPROLOL TARTRATE 50 MG TAB PO SCH ×2 (08:30→20:02)
[2021-02-22] MEDS: LOSARTAN 50 MG TAB PO SCH (08:31)
[2021-02-22] MEDS: DOXYCYCLINE 100 MG CAP PO SCH ×2 (08:44→20:27)
--- NOTE | 2021-02-22 08:47 | PN ---
PROGRESS NOTE Mrs. Lopez is an 85-year-old female with history of mitral valve disease who presented with symptoms of progressive dyspnea on exertion requiring mechanical ventilation. She remains intubated and sedated. She is in sinus mechanism. She is not on any vasopressor. She has history of paroxysmal atrial fibrillation as well history of severe mitral and tricuspid regurgitation and severe pulmonary hypertension. Her echocardiogram revealed a preserved systolic function. There is no evidence of ventricular tachyarrhythmia. Her medications at this time include amiodarone 200 mg daily, Lovenox 40 mg daily subcu, Lasix 40 mg q.12 hours IV, losartan 100 mg daily, metoprolol tartrate 50 mg twice a day. PHYSICAL EXAMINATION: Blood pressure 130/50 with the heart rate in the 50s. LUNGS: Clear. HEART: Regular rate and rhythm. S1, S2. No S3 with a holosystolic murmur in the apex radiating to the axilla. No diastolic murmur. No rub. ABDOMEN: Soft. No organomegaly. EXTREMITIES: Trace edema. LAB DATA: Lab data revealed a hemoglobin of 7.8. BUN and creatinine 30 and 1.14. Potassium is 3.6. A pH 7.55, pCO2 of 29, pO2 of 103. Her urine output has been negative above a liter yesterday. IMPRESSION: 1. Respiratory failure in a patient with known history of severe mitral and tricuspid regurgitation, possible congestive heart failure with preserved systolic function and valvular disease on top of a possible infectious process. 2. Anemia. 3. Paroxysmal atrial fibrillation. 4. History of hypertension, stable. 5. History of chronic obstructive lung disease. RECOMMENDATION: We will continue present therapy. Follow the hemoglobin. She may benefit from transfusion. We will follow her heart rate and depending on that, further adjustment will be made. Depending on her progress, further recommendation will be made. MMODL / IJN: [id number] /
[2021-02-22] MEDS: IPRATROPIUM-ALBUTEROL 3 ML NEB INHALATION SCH ×4 (09:02→19:08)
--- NOTE | 2021-02-22 09:30 | XR ---
EXAMINATION TYPE: XR chest 1V portable DATE OF EXAM: 02/22/2021 COMPARISON: 02/21/2021 INDICATION: Tube placement TECHNIQUE: Single frontal view of the chest is obtained. FINDINGS: The heart size is normal. The pulmonary vasculature is normal. Mild diffuse increased lung markings are present bilaterally which are nonspecific but can be compati ble with atypical pneumonia There is an endotracheal tube with tip 1.3 centimeters above the justo. This could be pulled back 1 to 2 cm. Nasogastric transverse thorax. IMPRESSION: 1. Mild diffuse increased lung markings are nonspecific and can be related to atypical pneumonia. 2. Endotracheal tube tip 1.3 cm above the justo pulled back 1 to 2 cm.
--- NOTE | 2021-02-22 11:05 | P.PN ---
Subjective Progress Note Date: 02/22/21 (Critical care time 35 minutes) Principal diagnosis: Acute hypoxic respiratory failure Bilateral pneumonia Sepsis Chronic kidney disease Altered mental status due to sepsis and pneumonia Baseline history of chronic atrial fibrillation heart failure Testing covid 19 has been negative 02/22/2021, patient seen eval examined during the rounds labs reviewed medications reviewed patient remains on propofol, CPAP pressure support trial performed yesterday have been unsuccessful they were done on 5 of CPAP and pressure support of 5, we will stop the propofol today and developed pressure support trial of 10 with CPAP of 5 and 40% oxygen if tolerated well consider taking the tube out, he remains afebrile hemodynamically stable and stable oxygen saturation into mid 90s, labs are reviewed pH is 755 pCO2 29. 103, BUN/creatinine slightly up likely related to diuresis, 02/21/2021, patient seen eval examined during the rounds labs reviewed medications reviewed care plan discussed with the staff at length, patient is been down to 40% oxygen, been setting remains stable, propofol has been tapered to 15 mics now, patient is arousable, discussed with the respiratory therapist and nurse patient to go on CPAP pressure support. All drips stop the tube feed as well, will do weaning parameters, blood cultures have been negative, medications reviewed, chest x-ray stable ET tube slightly at the level of justo bilateral infiltrates are noted, noted respiratory alkalosis would recommend to do CPAP pressure support trial patient will automatically corrected 02/20/2021, patient seen eval examined during the rounds labs reviewed medications reviewed, patient is currently off of levo fed drip, euvolemic status appears to be present, however ventilator setting continued to have high FiO2 currently patient is on 60% oxygen over next 24 hours will try to wean down the oxygen, patient remains on broad-spectrum antibiotics no fever has been seen, urine output has been adequate, but patient has been replaced, radiographic studies labs reviewed care plan discussed with staff at length if patient is down to 40% and we will do a CPAP pressure support trial tomorrow morning, 2 feet can be initiated, 02/19/2021, patient seen eval examined during the rounds labs reviewed m edications reviewed care plan discussed with the staff at length, patient remains on low dose of levo fed, unable to stop it as earlier this morning we stopped it but blood pressure dropped down requiring a reinitiation of levo fed, will require fluid bolus of the crystalloids 500 mL over 2 hours will be given, patient remains on full ventilator support currently patient is on FiO2 of 60%, with assist control rate of 20, tidal volume is 450, PEEP is 5, given hypotension cannot escalate the PEEP, first we'll try to taper off the levo fed then will taper the oxygen down by increasing PEEP, but cultures no growth so far, chest x-ray bilateral upper and mid lung field predominantly on the right side pneumonia stable ET tube, WBC have been lowered down to 12,000, arterial blood gas stable pO2 is 89, rash M is 3.2 BUN/creatinine improved to 20 and 1.03, currently patient is sedated with propofol drip, patient has a history of significant A. fib with RVR as well as moderate to severe mitral regurgitation, Patient is a 85-year-old [facility] resident brought into emergency department intubat ed on the field by EMS, she was having respiratory difficulties with argon of respiration, review of the records revealed that patient has a significant history of mood disorder depression hypertension and hypothyroidism, she has prior medical problems significant for atrial fibrillation not on any anticoagulation COPD heart failure dyslipidemia hypertension hypertensive cardiovascular disease and history of pulmonary hypertension history of stroke chronic kidney disease stage III, she used to smoke however stopped smoking several years ago, currently patient is on full ventilator support assist control of 20 breathing 20, PEEP of 5, 50% oxygen, tidal volume is 450, patient is on propofol 30 mics, hemodynamic status is stable patient is on levo fed 0.025, blood pressure is improved to 159/61, heart rate 63 saturation is 98%, EKG revealed left bundle-branch block, labs are significant for leukocytosis with WBC count is 16,000, hemoglobin and hematocrit 7.9 and 25, platelet count is 1 76,000, d-dimer is 4.86, lactic acid is up to 5.7 now came down to 2.2, subsequent 1 is 1.2, BUN/creatinine 27 1.19, coated 19 is negative, patient has received a dose of Lovenox and Zosyn and fluid boluses 1.5 L Objective - Vital Signs Vital signs: Vital Signs Temp 97.5 F L 02/22/21 08:00 Pulse 59 L 02/22/21 10:00 Resp 20 02/22/21 10:00 BP 125/71 02/22/21 10:00 Pulse Ox 100 02/22/21 10:00 Intake & Output 02/21/21 02/22/21 02/22/21 18:59 06:59 18:59 Intake Total 633.759 825.006 367.406 Output Total 775 1200 775 Balance -141.241 -374.994 -407.594 Intake: IV 280 210 120 0.9ns @ kvo 80 110 20 Piperacillin-Tazobactam 3 200 100 100 .375 gm In Sodium Chloride 0.9% 100 ml @ 25 mls/hr IVPB Q8HR [facility] Rx# :[id number] Intake, IV Titration 173.759 338.006 72.406 Amount propofoL 1,000 mg In 173.759 338.006 72.406 Empty Bag 1 bag @ Titrate IV .Q0M [facility] Rx#: [id number] Tube Feeding 110 187 105 Other 70 90 70 Output: Urine 775 1200 775 Other: Voiding Method Indwelling Catheter Indwelling Catheter Indwelling Catheter # Bowel Movements 1 1 - Exam - Constitutional General appearance: average body habitus, disheveled - EENT Eyes: PERRLA Ears: bilateral: normal - Neck Neck: lymphadenopathy Carotids: bilateral: upstroke normal - Respiratory Respiratory: bilateral: diminished - Cardiovascular Rhythm: regular Heart sounds: normal: S1, S2 - Gastrointestinal General gastrointestinal: decreased bowel sounds, distended, soft - Neurologic Patient is intubated sedated on full ventilator support - Labs CBC & Chem 7: 02/22/21 03:15 02/22/21 03:15 Labs: Abnormal Lab Results - Last 24 Hours (Table) 02/21/21 02/21/21 02/21/21 Range/Units 11:38 11:38 11:43 RBC (3.80-5.40) m/uL Hgb (11.4-16.0) gm/dL Hct (34.0-46.0) % MCHC (31.0-37.0) g/dL RDW (11.5-15.5) % Plt Count (150-450) k/uL ABG pH (7.35-7.45) ABG pCO2 (35-45) mmHg ABG HCO3 (21-25) mmol/L ABG Total CO2 (19-24) mmol/L ABG O2 Saturation (94-97) % Chloride (98-107) mmol/L BUN (7-17) mg/dL Creatinine (0.52-1.04) mg/dL Glucose (74-99) mg/dL POC Glucose (mg/dL) 123 H (75-99) mg/dL Calcium (8.4-10.2) mg/dL Iron 23 L (50-170) ug/dL % Saturation 9.79 L (12.00-45.00) Total Protein (PEP) 5.2 L (6.2-8.2) g/dL 02/21/21 02/21/21 02/22/21 Range/Units 17:37 23:35 03:15 RBC (3.80-5.40) m/uL Hgb (11.4-16.0) gm/dL Hct (34.0-46.0) % MCHC (31.0-37.0) g/dL RDW (11.5-15.5) % Plt Count (150-450) k/uL ABG pH (7.35-7.45) ABG pCO2 (35-45) mmHg ABG HCO3 (21-25) mmol/L ABG Total CO2 (19-24) mmol/L ABG O2 Saturation (94-97) % Chloride 108 H (98-107) mmol/L BUN 30 H (7-17) mg/dL Creatinine 1.14 H (0.52-1.04) mg/dL Glucose 131 H (74-99) mg/dL POC Glucose (mg/dL) 161 H 147 H (75-99) mg/dL Calcium 8.0 L (8.4-10.2) mg/dL Iron (50-170) ug/dL % Saturation (12.00-45.00) Total Protein (PEP) (6.2-8.2) g/dL 02/22/21 02/22/21 Range/Units 03:15 05:34 RBC 2.77 L (3.80-5.40) m/uL Hgb 7.8 L (11.4-16.0) gm/dL Hct 25.7 L (34.0-46.0) % MCHC 30.5 L (31.0-37.0) g/dL RDW 16.1 H (11.5-15.5) % Plt Count 85 L (150-450) k/uL ABG pH 7.55 H (7.35-7.45) ABG pCO2 29 L (35-45) mmHg ABG HCO3 26 H (21-25) mmol/L ABG Total CO2 26 H (19-24) mmol/L ABG O2 Saturation 99.0 H (94-97) % Chloride (98-107) mmol/L BUN (7-17) mg/dL Creatinine (0.52-1.04) mg/dL Glucose (74-99) mg/dL POC Glucose (mg/dL) (75-99) mg/dL Calcium (8.4-10.2) mg/dL Iron (50-170) ug/dL % Saturation (12.00-45.00) Total Protein (PEP) (6.2-8.2) g/dL Microbiology - Last 24 Hours (Table) 02/18/21 03:40 Blood Culture - Preliminary Blood No Growth after 96 hours 02/18/21 03:30 Blood Culture - Preliminary Blood No Growth after 96 hours Assessment and Plan Assessment: Acute hypoxic respiratory failure Bilateral pneumonia Sepsis Chronic kidney disease Valvular heart disease with mitral regurgitation Altered mental status due to sepsis and pneumonia Baseline history of chronic atrial fibrillation heart failure Testing covidr 19 has been negative Plan: Ventilator support, adjustment as needed CPAP and pressure support trial Noted respiratory alkalosis will decrease the rate to 12 Monitor off of levo fed drip Fluid boluses as needed Echocardiogram results reviewed ejection fraction is 60%,, with mild to moderate aortic stenosis, severe pulmonary hypertension was noted right ventricle syst olic pressure estimated to be 76, Gentle rehydration Broad-spectrum antibiotics Bronchodilators IV steroids Follow-up on Rodriguez cultures DVT prophylaxis with Lovenox Further plan of care and recommendation as per clinical response of the patient We will do trial of Lasix, decrease the Lasix to once daily Time with Patient: Greater than 30
[2021-02-22 12:10] LABS: Glucose,Whole Blood 130 mg/dL (75-99)
[2021-02-22 12:26] LABS: ABG Base Excess 2.7 mmol/L; ABG HCO3 26 mmol/L (21-25); ABG Oxygen Saturation 98.7 % (94-97); ABG PCO2 36 mmHg (35-45); ABG PH 7.47 (7.35-7.45); ABG PO2 114 mmHg (83-108); ABG TCO2 28 mmol/L (19-24); Allen Test Performed? Yes
[2021-02-22 13:14] LABS: Free Kappa Lt Chain Qnt, Serum 2.16 mg/dL (0.33-1.94)
[2021-02-22 13:24] LABS: Albumin 2.45 g/dL (3.80-4.90); Gamma Globulin 0.74 g/dL (0.70-1.50)
[2021-02-22] MEDS ORDERED: LIDOCAINE 1% INJ 10MG/ML (20 ML MDV) SQ ONE (13:40)
--- NOTE | 2021-02-22 14:09 | XR ---
EXAMINATION TYPE: XR chest 1V confirm line [facility] DATE OF EXAM: 02/22/2021 COMPARISON: 02/22/2021 INDICATION: PICC line TECHNIQUE: Single frontal view of the chest is obtained. FINDINGS: The heart size is normal. The pulmonary vasculature is normal. Minimal residual scattered infiltrates may remain present. This is improved from comparison. Endotracheal tube tip is located 2.1 cm above the justo. Endotracheal tube has tip within the abdome n. Left-sided PICC line is present with the tip in the distal superior vena cava region. IMPRESSION: 1. PICC line placement with the tip in the superior vena cava region. 2. Mild residual infiltrates present bilaterally
[2021-02-22] MEDS: NOREPINEPHRINE 4 MG in SODIUM CHLORIDE 0.9% 250 ML IV SCH (15:18)
--- NOTE | 2021-02-22 15:51 | IR ---
EXAMINATION TYPE: IR cvc insert >=5 years DATE OF EXAM: 02/22/2021 COMPARISON: NONE HISTORY: Covid infection, needs long-term intravenous access for therapy FINDINGS: Maximal barrier technique was utilized. Hand hygiene obtained with soap and water and alco hol-based hand rub. The skin overlying the left brachial vein was localized with ultrasound and noted to be compressible and patent by ultrasound. An ultrasound image was obtained and submitted on gurwinder ent's chart. Sterile technique utilized with the ultrasound machine. The skin overlying was prepped a nd draped and Lidocaine used for local anesthesia. A skin bladimir was made with a scalpel. Access was gained to the vein under direct ultrasound guidance with a 21-gauge needle and a 0.018 inch wire was advanced. Access site was dilated with a peel-away sheath and the catheter tailored to length. Cath eter advanced centrally and a post procedure chest x-ray verified placement with tip at the superior vena cava. Catheter was fixed to the skin and a sterile dressing placed. Hemostasis achieved and th e catheter was aspirated and flushed with sterile saline. The patient remained in stable condition. IMPRESSION: STATUS POST ULTRASOUND GUIDED PICC LINE PLACEMENT, READY FOR USE. THIS PROCEDURE WAS PER FORMED BY THE UNDERSIGNED.
[2021-02-22 18:11] LABS: Glucose,Whole Blood 190 mg/dL (75-99)
--- NOTE | 2021-02-22 18:41 | P.PN ---
Progress Note - Text Progress Note Date: 02/22/21 Chief Complaint: Short of breath history of present complaint: This is a very pleasant 85-year-old patient of Dr. Maya. Currently at [facility]. Chronic stable medical conditions include COPD, paroxysmal atrial fibrillation, hypertension, hyperlipidemia, GERD, osteoarthritis, secondary pulmonary hypertension, hypothyroid, rosacea, osteoarthritis, urine stress incontinence,CHF from diastolic dysfunction EF 55- 60%, severe mitral regurgitation, moderate mitral stenosis, moderate tricuspid regurgitation, secondary pulmonary hypertension. Diverticulosis. at her baseline uses a cane and a walker. EMS was called out as patient had been lethargic all day. Patient is complaining that she is not feeling well. One hour prior to the EMS arrival patient became increasingly short of breath. Patient at baseline is 3 L of nasal cannula. And patient became less responsive and breathing worsen. 4 days ago patient had a negative COVID testing. When EMS arrived patient's found to have agonal respiration. Telemetry showed sinus rhythm. Patient is intubated. This afternoon patient has FiO2 15 of PEEP of 5. Drips included propofol and norepinephrine. Telemetry shows sinus rhythm. Admitted with bilateral pneumonia, acute respiratory arrest on ventilator support. Started on IV Zosyn, Levothroid, propofol, IV Solu-Medrol, bronchodilators. Today: ICU. Ventilator FiO2 40 and a PEEP of 5. Patient was on propofol. Telemetry sinus rhythm. Plan earlier per Dr. Estefania Ellison was to hold off the propofol intervened the patient on CPAP. And hopefully extubate later today. Review of systems: Patient intubated Active Medications Acetaminophen (Acetaminophen Suppository 650 Mg Supp) 650 mg RECTAL Q4HR PRN PRN Reason: Fever And/ Or Mild Pain Acetaminophen (Acetaminophen Tab 325 Mg Tab) 650 mg PO Q4HR PRN PRN Reason: Fever and/or Mild Pain Albuterol/Ipratropium (Ipratropium-Albuterol 3 Ml Neb) 3 ml INHALATION RT-QID [facility] Last Admin: 02/22/21 16:27 Dose: 3 ml Documented by: Amiodarone HCl (Amiodarone 200 Mg Tab) 200 mg PO DAILY [facility] Last Admin: 02/22/21 08:26 Dose: 200 mg Documented by: Chlorhexidine Gluconate (Chlorhexidine Gluconate 15 Ml Cup) 15 ml MUCOUS MEM BID [facility] Last Admin: 02/22/21 08:26 Dose: 15 ml Documented by: Doxycycline Monohydrate (Doxycycline 100 Mg Cap) 100 mg PO BID [facility] Last Admin: 02/22/21 08:44 Dose: 100 mg Documented by: Enoxaparin Sodium (Enoxaparin 40 Mg/0.4 Ml Syringe) 40 mg SQ DAILY [facility] Last Admin: 02/22/21 08:25 Dose: 40 mg Documented by: Famotidine (Famotidine 20 Mg/2 Ml Vial) 20 mg IV Q12HR [facility] Last Admin: 02/22/21 08:26 Dose: 20 mg Documented by: Furosemide (Furosemide 10 Mg/Ml 2 Ml Vial) 20 mg IV DAILY [facility] Propofol 1,000 mg/ IV Solution 100 mls @ 0 mls/hr IV .Q0M [facility]; Protocol Last Admin: 02/22/21 17:23 Dose: 50 mcg/kg/min, 24.6 mls/hr Documented by: Piperacillin Sod/Tazobactam (Sod 3.375 gm/ Sodium Chloride) 100 mls @ 25 mls/hr IVPB Q8HR [facility] Last Admin: 02/22/21 16:06 Dose: 25 mls/hr Documented by: Norepinephrine Bitartrate 4 mg (/ Sodium Chloride) 254 mls @ 15.621 mls/hr IV .[id number] [facility]; Protocol Last Admin: 02/22/21 15:18 Dose: Not Given Documented by: Insulin Aspart (Insulin Aspart (Novolog) 100 Unit/Ml Vial) 0 unit SQ Q6H [facility]; Protocol Last Admin: 02/22/21 18:35 Dose: 5 unit Documented by: Latanoprost (Latanoprost 0.005% Ophth Drops 2.5 Ml Btl) 1 drops BOTH EYES HS@2000 [facility] Last Admin: 02/21/21 20:46 Dose: 1 drops Documented by: Levothyroxine Sodium (Levothyroxine 112 Mcg Tab) 112 mcg OG-TUBE HS [facility] Last Admin: 02/21/21 20:44 Dose: 112 mcg Documented by: Losartan Potassium (Losartan 50 Mg Tab) 100 mg PO DAILY [facility] Last Admin: 02/22/21 08:31 Dose: 100 mg Documented by: Methylprednisolone Sodium Succinate (Methylprednisolone Sod Succi 40 Mg/Ml 1 Ml Vial) 40 mg IV Q8HR [facility] Last Admin: 02/22/21 16:06 Dose: 40 mg Documented by: Metoprolol Tartrate (Metoprolol Tartrate 50 Mg Tab) 50 mg PO BID [facility] Last Admin: 02/22/21 08:30 Dose: Not Given Documented by: Miscellaneous Information (Potassium Replacement Protocol 1 Each Misc) 1 each MISCELLANE DAILY PRN; Protocol PRN Reason: Per Protocol Miscellaneous Information (Magnesium Replacement Protocol 1 Each Misc) 1 each MISCELLANE DAILY PRN; Protocol PRN Reason: Per Protocol Miscellaneous Information (Potassium Replacement Protocol 1 Each Misc) 1 each MISCELLANE DAILY PRN; Protocol PRN Reason: Per Protocol Morphine Sulfate (Morphine Sulfate 4 Mg/Ml Syringe) 3 mg IV Q2HR PRN PRN Reason: Pain Scale 6 to 7 Naloxone HCl (Naloxone 0.4 Mg/Ml 1 Ml Vial) 0.2 mg IV Q2M PRN PRN Reason: Opioid Reversal Ropinirole HCl (Ropinirole Hcl 1 Mg Tab) 2 mg PO HS [facility] Last Admin: 02/21/21 20:44 Dose: 2 mg Documented by: Senna/Docusate Sodium (Sennosides-Docusate Sodium 1 Each Tab) 1 each PO DAILY [facility] Last Admin: 02/22/21 08:30 Dose: Not Given Documented by: Sodium Chloride (Sodium Chloride 0.9% Flush 10 Ml Syringe) 10 ml IV Q4HR PRN PRN Reason: PICC Line Sodium Chloride (Sodium Chloride 0.9% Flush 10 Ml Syringe) 10 ml IV WEEKLY [facility] Sodium Chloride (Sodium Chloride 0.9% Flush 10 Ml Syringe) 20 ml IV Q4HR PRN PRN Reason: PICC Line Past medical history: Right adnexa growth being followed as an outpatient, COPD, paroxysmal atrial fibrillation, hypertension, hyperlipidemia, COPD, GERD, primary osteoarthritis, colon cancer in 2001, secondary pulmonary hypertension, hypothyroid, rosacea, urinary stress incontinence, osteoarthritis chronic diverticulosis, gastritis duodenitis, colon cancer treated with surgery chemoradiation, home oxygen 2 L, chronic kidney disease stage III, stroke with some speech impairment, hypothyroid,chronic congestive heart failure from diastolic dysfunction EF 55- 60%, severe mitral regurgitation, moderate mitral stenosis, moderate tricuspid regurgitation., chronic thrombocytopenia Social history: At [facility] [employer] [facility] [place] [employer] Smoked for 20 years, stopped in 1986, smoked a pack and half Physical examination: VITAL SIGNS: 98, 53, 12, 133/55, 100% on 40% FiO2 GENERAL: Laying in bed, intubated EYES: Pupils equal. Conjunctiva normal HEENT: External appearance of nose and ears normal, oral cavity ET tube, NECK: JVD unable to assess; masses not palpable. HEART: First and second heart sounds are normal; edema present LUNGS: Respiratory rate increased, decreased breaths, ABDOMEN: Soft, nontender, liver spleen not palpable, no masses palpable. PSYCH: Unable to assess. EXTREMITIES: Missing right hand fingers, except thumb INVESTIGATIONS, reviewed in the clinical context: February 22: WBC 7.5 hemoglobin 7.8 platelets 85 potassium 3.6 bun 30 creatinine 1.14 February 21: WBC 9.3 hemoglobin 8.4 platelets 88 potassium 3.8 creatinine 0.89 TSH 0.14 T4 3 0.61 February 20: WBC 8.4 hemoglobin 8.5 platelets 74 February 19: WBC 12 hemoglobin 7.4 platelets 122 potassium 3.2 creatinine 1.03 Computed tomography scan of the chest: Negative for PE. Extensive pulmonary airspace consolidation with bilateral pleural effusions. WBC 16.1 hemoglobin 7.9 platelets 176 d-dimer 4.86 ABG pH 7.4 pCO2 38 pO2 208 potassium 4 bun 27 creatinine 1.19 Lactic acid 5.7 and repeat 2.2 proBNP 2900 procalcitonin 0.04 UA showing 1+ protein Coronavirus [PCR] not detected EKG tracing personally reviewed by me-sinus rhythm, left bundle-branch block Chest x-ray film personally reviewed by me-bilateral extensive pulmonary infiltrates assessment: -bilateral suspected gram-negative pneumonia. IV Zosyn. Follow with pulmonary -Acute hypoxic respiratory failure, secondary to pneumonia patient went into respiratory some improvement On ventilator support. FiO2 40% % with a PEEP of 5 -Acute on chronic congestive heart failure exacerbation, from diastolic dysfunction EF 55-60%,-euvolemic Cutback on IV Lasix -Acute COPD exacerbation in an [id number] to respond bronchodilators, IV steroids, -Severe mitral regurgitation, moderate mitral stenosis, moderate tricuspid regurgitation Follow clinically -Secondary moderate pulmonary hypertension from COPD and CHF Follow clinically -Essential hypertension- continue beta amara. Amlodipine added -GERD- use PPI -Primary osteoarthritis- use analgesics when necessary -Hypothyroid- continue Synthroid -Chronic urinary stress incontinence- Doll catheter -Chronic diverticulosis- Follow clinically -Chronic gait dysfunction uses walker -Left bundle-branch block, chronic Telemetry -Paroxysmal atrial fibrillation, currently sinus rhythm. -New-onset of thrombocytopenia. Platelet count above 50. Consult hematology -Metabolic alkalosis likely from volume contraction Add Diamox. Hold of IV Lasix temporarily. Patient being weaned. On CPAP. Add Diamox. Hold IV Lasix temporarily.
[2021-02-22] MEDS: LATANOPROST 0.005% OPHTH DROPS 2.5 ML BTL BOTH EYES SCH (20:27)
[2021-02-22] MEDS: acetaZOLAMIDE 250 MG TAB PO SCH (20:28)
[2021-02-22] MEDS: LEVOTHYROXINE 112 MCG TAB OG-TUBE SCH (20:51)
[2021-02-23 00:58] LABS: Glucose,Whole Blood 182 mg/dL (75-99)
[2021-02-23] MEDS: PIPERACILLIN-TAZOBACTAM 3.375 GM in SODIUM CHLORIDE 0.9% 100 ML IVPB SCH ×3 (01:13→17:02)
[2021-02-23] MEDS: INSULIN ASPART (NovoLOG) 100 UNIT/ML VIAL SQ SCH ×4 (01:13→18:14)
[2021-02-23] MEDS: methylPREDNISolone SOD SUCCI 40 MG/ML 1 ML VIAL IV SCH ×3 (01:14→17:02)
[2021-02-23 05:26] LABS: Basophils % (A) 0 %; Eosinophils % (A) 0 %; HCT 29.4 % (34.0-46.0); HGB 8.9 gm/dL (11.4-16.0); Hypochromasia Marked; Lymphocytes # (A) 0.5 k/uL (1.0-4.8); Lymphocytes % (A) 8 %; MCH 28.5 pg (25.0-35.0); MCHC 30.2 g/dL (31.0-37.0); MCV 94.4 fL (80.0-100.0); Mean Platelet Volume 9.7; Monocytes # (A) 0.2 k/uL (0-1.0); Monocytes % (A) 3 %; Neutrophils # (A) 5.9 k/uL (1.3-7.7); Neutrophils % (A) 88 %; Poikilocytosis Moderate; RBC 3.12 m/uL (3.80-5.40); RDW 15.5 % (11.5-15.5); WBC 6.7 k/uL (3.8-10.6)
[2021-02-23 05:26] LABS: ABG Base Excess -0.5 mmol/L; ABG HCO3 24 mmol/L (21-25); ABG Oxygen Saturation 99.7 % (94-97); ABG PCO2 39 mmHg (35-45); ABG PO2 130 mmHg (83-108); ABG TCO2 25 mmol/L (19-24); Allen Test Performed? Yes
[2021-02-23 05:33] LABS: Platelet Count 71 k/uL (150-450)
[2021-02-23 05:50] LABS: Calcium 8.3 mg/dL (8.4-10.2); Potassium 3.3 mmol/L (3.5-5.1); Total Bilirubin 0.5 mg/dL (0.2-1.3); Total Protein 5.8 g/dL (6.3-8.2)
[2021-02-23] MEDS: NOREPINEPHRINE 4 MG in SODIUM CHLORIDE 0.9% 250 ML IV SCH (06:50)
[2021-02-23] MEDS: POTASSIUM BICARBONATE/CIT AC 20 MEQ TABLET.EFF NG-TUBE SCH ×2 (06:50→09:56)
[2021-02-23] MEDS: IPRATROPIUM-ALBUTEROL 3 ML NEB INHALATION SCH ×4 (07:41→20:52)
--- NOTE | 2021-02-23 07:55 | XR ---
EXAMINATION TYPE: XR chest 1V portable DATE OF EXAM: 02/23/2021 COMPARISON: 02/23/2020 INDICATION: Tube placement TECHNIQUE: Single frontal view of the chest is obtained. FINDINGS: The heart size is normal. The pulmonary vasculature is normal. Mild diffuse increased lung markings. Findings are improving. PICC line enters on the right with the tip in superior vena cava region. Endotracheal tube tip is abo ve the justo. Nasogastric tube tip. IMPRESSION: 1. Mild residual scattered infiltrates. 2. Lines and catheters discussed above
--- NOTE | 2021-02-23 08:37 | PN ---
PROGRESS NOTE Mrs. Campoverde is an 85-year-old female who presented with progressive dyspnea and evidence of respiratory failure requiring mechanical ventilation. She remains intubated. She was not weaned yesterday. She continued to be in sinus bradycardia. There is no evidence of atrial fibrillation. She has a history of severe mitral and tricuspid regurgitation and severe pulmonary hypertension. Her urinary output has been stable. Her blood pressure is stable. She is not on any vasopressor. She continues to be on amiodarone 200 mg daily, Lovenox 40 mg subcu daily, losartan 100 mg daily, metoprolol tartrate 50 mg twice a day. PHYSICAL EXAMINATION: Blood pressure 136/50 with the heart rate in the mid 50s. LUNGS: Clear anteriorly. HEART: Regular rate and rhythm. S1, S2. No S3 with a holosystolic murmur in the apex radiating to the axilla. No diastolic murmur. No rub. ABDOMEN: Soft. Positive bowel sounds. No organomegaly. EXTREMITIES: No edema. LAB DATA: Lab data revealed hemoglobin of 8.9, BUN and creatinine 31 and 1.24. Her potassium is 3.3. Her pH 7.4, pCO2 of 39 and pO2 of 130. IMPRESSION: 1. Respiratory failure, multifactorial with history of severe valvular disease. 2. Paroxysmal atrial fibrillation, remains in sinus mechanism. 3. Anemia. 4. Worsening renal function. 5. Hypertension. 6. Sinus bradycardia. 7. Chronic obstructive lung disease. RECOMMENDATION: I will cut down the dose of her amiodarone. Continue the rest of the medical regimen. Hopefully, she can be weaned and extubated today and depending on her progress, further recommendation will be made. MMODL / IJN: [id number] /
[2021-02-23] MEDS ORDERED: FUROSEMIDE 10 MG/ML 2 ML VIAL IV SCH (09:00)
[2021-02-23 09:07] LABS: Methylmalonic Acid 0.48 umol/L (<0.40)
[2021-02-23] MEDS: METOPROLOL TARTRATE 50 MG TAB PO SCH ×2 (09:33→21:53)
[2021-02-23] MEDS: CHLORHEXIDINE GLUCONATE 15 ML CUP MUCOUS MEM SCH ×2 (09:55→22:12)
[2021-02-23] MEDS: ENOXAPARIN 40 MG/0.4 ML SYRINGE SQ SCH (09:56)
[2021-02-23] MEDS: LOSARTAN 50 MG TAB PO SCH (09:56)
[2021-02-23] MEDS: AMIODARONE 100 MG TAB PO SCH (09:56)
[2021-02-23] MEDS: DOXYCYCLINE 100 MG CAP PO SCH ×2 (09:57→22:12)
[2021-02-23] MEDS: SENNOSIDES-DOCUSATE SODIUM 1 EACH TAB PO SCH (09:57)
[2021-02-23] MEDS: acetaZOLAMIDE 250 MG TAB PO SCH ×2 (09:57→22:12)
[2021-02-23] MEDS: FAMOTIDINE 20 MG/2 ML VIAL IV SCH ×2 (09:58→22:11)
--- NOTE | 2021-02-23 11:16 | CDI ---
Documentation Clarification Form Date: 02/23/2021 10:56:00 AM From: Lety ByersRasmussenJANEEN, CCDS Admit Date: 02/18/2021 06:10:00 AM Patient Name: Nadira Lopez Visit Number: [id number] Discharge Date: ATTENTION: The Clinical Documentation Specialists (CDI) and [facility] Coding Staff appreciate your assistance in clarifying documentation. Please respond to the clarification below the line at the bottom and electronically sign. The CDI & [facility] Coding staff will review the response and follow-up if needed. Please note: Queries are made part of the Legal Health Record. If you have any questions, please contact the author of this message via ITS. Dr. Jesus Ellison: The patient presented intubated via EMS for agonal respirations. In the ED became hypotensive (BP 78/31) & started on Levophed. Hemoglobin on admission was 7.9, dropped to 6.7 on 02/20 and the patient received 1 unit PRBCs. Please clarify any associated diagnoses with the above signs & symptoms. Patient history/risk factors per the 02/18 ED Note Past Medical History: Atrial Fibrillation, Asthma, Colon Cancer status post surgery, chemotherapy & radiation; CHF, COPD, CVA, GERD, GI Bleed, Hyperlipidemia, Osteoarthritis, Pneumonia, CKD III, Pulmonary Hypertension, Chronic Hypoxic Respiratory Failure on 2Lnc Home O2, UTIs, Diverticulosis, Former Smoker. Resident of a [employer]. Clinical Indicators: Presented to the ED on 02/18 with SOB & Cardiac Arrest. EMS intubated the patient in the field due to agonal respirations. Suspected respiratory failure. Became Hypotensive while in the ED & stared on Levophed and IV Fluids. ED Clinical Impression: Acute Respiratory Failure, Elevated D Dimer, Lactic Acidosis and Leukocytosis. Per the 02/18 H/P Impression and subsequent documentation: Likely bilateral gram- negative pneumonia, Acute hypoxic respiratory failure, Respiratory arrest, Acute exacerbation diastolic CHF, Acute exacerbation COPD. Sepsis has been ruled out. Anemia of Chronic Disease secondary to CKD. Per the 02/19 Pulmonary/Critical Care Progress Note: "... patient remains on full ventilator support currently patient is on FiO2 of 60%, with assist control rate of 20, tidal volume is 450, PEEP is 5, given hypotension cannot escalate the PEEP, first we'll try to taper off the levo fed then will taper the oxygen down by increasing PEEP..." 02/18 VS: T 98.4, P 74 - 48; R 18 - 20, BP 172/63 - 78/31; PO 99 BVM 15L - 100% vent. 02/18 LAB: WBC 16.1, Hgb 7.9, Hct 25.7, Neut 13.5, APTT 20.1, D Dimer 4.86, Blood gas: ABG pO2 208, Total CO2 26, O2 Sat 100.0; BUN 27, Cr 1.19, Glucose 248, Lactic Acid 2.2 - 1.2; Total Protein 5.8, Albumin 3.0. Treatment 02/18: Intubated on vent, IV Ativan 2mg x1, IV Morphine 4 mg x1, IV Propofol, IV Levophed, IV fluid 1,000 mls @ 999 mls/hr q1H, IV Zosyn Blood Transfusion: 02/20 1 unit PRBCs. Please clarify if the following: [ x ] Hypovolemic Shock (Template Last Revised: January 2021) MTDD
[2021-02-23 11:18] LABS: Glucose,Whole Blood 181 mg/dL (75-99)
--- NOTE | 2021-02-23 15:24 | P.PN ---
Subjective Progress Note Date: 02/23/21 Principal diagnosis: Acute hypoxic respiratory failure Bilateral pneumonia Sepsis Chronic kidney disease Altered mental status due to sepsis and pneumonia Baseline history of chronic atrial fibrillation heart failure Testing covid 19 has been negative 02/23/2021, patient seen eval examined during the rounds labs reviewed medications reviewed care plan discussed, patient remains on full ventilator support, discussed with RN and respiratory therapist patient likely has very small airway limiting air leak from the site of the ET tube, patient did well with CPAP and pressure support, would recommend to taper and DC the propofol drip do a CPAP and pressure support of trial started with CPAP 5 and pressure support of 10 and subsequently 5 and 5 and then obtain a blood gas and weaning parameters if patient does well and remains awake and alert will proceed with extubation him a chest x-ray reviewed as stable, reviewed potassium is 3.3 on potassium replacement protocol 02/22/2021, patient seen eval examined during the rounds labs reviewed medications reviewed patient remains on propofol, CPAP pressure support trial performed yesterday have been unsuccessful they were done on 5 of CPAP and pressure support of 5, we will stop the propofol today and developed pressure support trial of 10 with CPAP of 5 and 40% oxygen if tolerated well consider taking the tube out, he remains afebrile hemodynamically stable and stable oxygen saturation into mid 90s, labs are reviewed pH is 755 pCO2 29. 103, BUN/creatinine slightly up likely related to diuresis, 02/21/2021, patient seen eval examined during the rounds labs reviewed medications reviewed care plan discussed with the staff at length, patient is been down to 40% oxygen, been setting remains stable, propofol has been tapered to 15 mics now, patient is arousable, discussed with the respiratory therapist and nurse patient to go on CPAP pressure support. All drips stop the tube feed as well, will do weaning parameters, blood cultures have been negative, medications reviewed, chest x-ray stable ET tube slightly at the level of justo bilateral infiltrates are noted, noted respiratory alkalosis would recommend to do CPAP pressure support trial patient will automatically corrected 02/20/2021, patient seen eval examined during the rounds labs reviewed medications reviewed, patient is currently off of levo fed drip, euvolemic status appears to be present, however ventilator setting continued to have high FiO2 currently patient is on 60% oxygen over next 24 hours will try to wean down the oxygen, patient remains on broad-spectrum antibiotics no fever has been seen, urine output has been adequate, but patient has been replaced, radiographic studies labs reviewed care plan discussed with staff at length if patient is down to 40% and we will do a CPAP pressure support trial tomorrow morning, 2 feet can be initiated, 02/19/2021, patient seen eval examined during the rounds labs reviewed medicati ons reviewed care plan discussed with the staff at length, patient remains on low dose of levo fed, unable to stop it as earlier this morning we stopped it but blood pressure dropped down requiring a reinitiation of levo fed, will require fluid bolus of the crystalloids 500 mL over 2 hours will be given, patient remains on full ventilator support currently patient is on FiO2 of 60%, with assist control rate of 20, tidal volume is 450, PEEP is 5, given hypotension cannot escalate the PEEP, first we'll try to taper off the levo fed then will taper the oxygen down by increasing PEEP, but cultures no growth so far, chest x-ray bilateral upper and mid lung field predominantly on the right s alana pneumonia stable ET tube, WBC have been lowered down to 12,000, arterial blood gas stable pO2 is 89, rash M is 3.2 BUN/creatinine improved to 20 and 1.03, currently patient is sedated with propofol drip, patient has a history of significant A. fib with RVR as well as moderate to severe mitral regurgitation, Patient is a 85-year-old [facility] resident brought into emergency department intubated on the field by EMS, she was having respiratory difficulties with argon of respiration, review of the records revealed that patient has a significant history of mood disorder depression hypertension and hypothyroidism, she has prior medical problems significant for atrial fibrillation not on any anticoagulation COPD heart failure dyslipidemia hypertension hypertensive cardiovascular disease and history of pulmonary hypertension history of stroke chronic kidney disease stage III, she used to smoke however stopped smoking several years ago, currently patient is on full ventilator support assist cont rol of 20 breathing 20, PEEP of 5, 50% oxygen, tidal volume is 450, patient is on propofol 30 mics, hemodynamic status is stable patient is on levo fed 0.025, blood pressure is improved to 159/61, heart rate 63 saturation is 98%, EKG revealed left bundle-branch block, labs are significant for leukocytosis with WBC count is 16,000, hemoglobin and hematocrit 7.9 and 25, platelet count is 1 76,000, d-dimer is 4.86, lactic acid is up to 5.7 now came down to 2.2, subsequent 1 is 1.2, BUN/creatinine 27 1.19, coated 19 is negative, patient has received a dose of Lovenox and Zosyn and fluid boluses 1.5 L Objective - Vital Signs Vital signs: Vital Signs Temp 97.6 F 02/23/21 12:00 Pulse 53 L 02/23/21 15:00 Resp 15 02/23/21 15:00 BP 126/47 02/23/21 15:00 Pulse Ox 98 02/23/21 15:00 Intake & Output 02/22/21 02/23/21 02/23/21 18:59 06:59 18:59 Intake Total 850.440 758.69 627.637 Output Total 1245 455 480 Balance -394.560 303.69 147.637 Weight 82 kg 85.6 kg Intake: IV 260 110 190 0.9ns @ kvo 60 110 90 Piperacillin-Tazobactam 3 200 100 .375 gm In Sodium Chloride 0.9% 100 ml @ 25 mls/hr IVPB Q8HR ANGELA Rx# :[id number] Intake, IV Titration 175.440 285.69 230.637 Amount propofoL 1,000 mg In 175.440 285.69 230.637 Empty Bag 1 bag @ Titrate IV .Q0M ANGELA Rx#: [id number] Tube Feeding 315 273 147 Other 100 90 60 Output: Urine 1245 455 480 Other: Voiding Method Indwelling Catheter Indwelling Catheter Indwelling Catheter # Bowel Movements 1 - Exam - Constitutional General appearance: average body habitus, disheveled - EENT Eyes: PERRLA Ears: bilateral: normal - Neck Neck: lymphadenopathy Carotids: bilateral: upstroke normal - Respiratory Respiratory: bilateral: diminished - Cardiovascular Rhythm: regular Heart sounds: normal: S1, S2 - Gastrointestinal General gastrointestinal: decreased bowel sounds, distended, soft - Neurologic Patient is intubated sedated on full ventilator support - Labs CBC & Chem 7: 02/23/21 04:56 02/23/21 04:56 Labs: Abnormal Lab Results - Last 24 Hours (Table) 02/21/21 02/22/21 02/23/21 Range/Units 11:38 18:10 00:56 RBC (3.80-5.40) m/uL Hgb (11.4-16.0) gm/dL Hct (34.0-46.0) % MCHC (31.0-37.0) g/dL Plt Count (150-450) k/uL Lymphocytes # (1.0-4.8) k/uL ABG pO2 (83-108) mmHg ABG Total CO2 (19-24) mmol/L ABG O2 Saturation (94-97) % Potassium (3.5-5.1) mmol/L Chloride (98-107) mmol/L Carbon Dioxide (22-30) mmol/L BUN (7-17) mg/dL Creatinine (0.52-1.04) mg/dL Glucose (74-99) mg/dL POC Glucose (mg/dL) 190 H 182 H (75-99) mg/dL Calcium (8.4-10.2) mg/dL Total Protein (6.3-8.2) g/dL Albumin (3.5-5.0) g/dL Methylmalonic Acid 0.48 H (<0.40) umol/L 02/23/21 02/23/21 02/23/21 Range/Units 04:56 04:56 05:20 RBC 3.12 L (3.80-5.40) m/uL Hgb 8.9 L (11.4-16.0) gm/dL Hct 29.4 L (34.0-46.0) % MCHC 30.2 L (31.0-37.0) g/dL Plt Count 71 L (150-450) k/uL Lymphocytes # 0.5 L (1.0-4.8) k/uL ABG pO2 130 H (83-108) mmHg ABG Total CO2 25 H (19-24) mmol/L ABG O2 Saturation 99.7 H (94-97) % Potassium 3.3 L (3.5-5.1) mmol/L Chloride 109 H (98-107) mmol/L Carbon Dioxide 21 L (22-30) mmol/L BUN 31 H (7-17) mg/dL Creatinine 1.24 H (0.52-1.04) mg/dL Glucose 149 H (74-99) mg/dL POC Glucose (mg/dL) (75-99) mg/dL Calcium 8.3 L (8.4-10.2) mg/dL Total Protein 5.8 L (6.3-8.2) g/dL Albumin 3.0 L (3.5-5.0) g/dL Methylmalonic Acid (<0.40) umol/L 02/23/21 Range/Units 11:17 RBC (3.80-5.40) m/uL Hgb (11.4-16.0) gm/dL Hct (34.0-46.0) % MCHC (31.0-37.0) g/dL Plt Count (150-450) k/uL Lymphocytes # (1.0-4.8) k/uL ABG pO2 (83-108) mmHg ABG Total CO2 (19-24) mmol/L ABG O2 Saturation (94-97) % Potassium (3.5-5.1) mmol/L Chloride (98-107) mmol/L Carbon Dioxide (22-30) mmol/L BUN (7-17) mg/dL Creatinine (0.52-1.04) mg/dL Glucose (74-99) mg/dL POC Glucose (mg/dL) 181 H (75-99) mg/dL Calcium (8.4-10.2) mg/dL Total Protein (6.3-8.2) g/dL Albumin (3.5-5.0) g/dL Methylmalonic Acid (<0.40) umol/L Microbiology - Last 24 Hours (Table) 02/18/21 03:30 Blood Culture - Preliminary Blood No Growth after 120 hours 02/18/21 03:40 Blood Culture - Preliminary Blood No Growth after 120 hours Assessment and Plan Assessment: Acute hypoxic respiratory failure Bilateral pneumonia hypokalemia Sepsis Chronic kidney disease Valvular heart disease with mitral regurgitation Altered mental status due to sepsis and pneumonia Baseline history of chronic atrial fibrillation heart failure Testing covidr 19 has been negative Plan: Place potassium as per protocol Ventilator support, adjustment as needed CPAP and pressure support trial Noted respiratory alkalosis will decrease the rate to 12 Monitor off of levo fed drip Fluid boluses as needed Echocardiogram results reviewed ejection fraction is 60%,, with mild to moderate aortic stenosis, severe pulmonary hypertension was noted right ventricle syst olic pressure estimated to be 76, Gentle rehydration Broad-spectrum antibiotics Bronchodilators IV steroids Follow-up on Rodriguez cultures DVT prophylaxis with Lovenox Further plan of care and recommendation as per clinical response of the patient We will do trial of Lasix, decrease the Lasix to once daily Time with Patient: Greater than 30
--- NOTE | 2021-02-23 16:40 | P.PN ---
Subjective Progress Note Date: 02/23/21 Principal diagnosis: Acute resp failure. Bicytopenia Sedated and mechanically ventilated Objective - Vital Signs Vital signs: Vital Signs Temp 98.0 F 02/23/21 16:00 Pulse 55 L 02/23/21 16:31 Resp 14 02/23/21 16:00 BP 124/48 02/23/21 16:00 Pulse Ox 100 02/23/21 16:00 Intake & Output 02/22/21 02/23/21 02/23/21 18:59 06:59 18:59 Intake Total 850.440 758.69 638.407 Output Total 1245 455 555 Balance -394.560 303.69 83.407 Weight 82 kg 85.6 kg Intake: IV 260 110 200 0.9ns @ kvo 60 110 100 Piperacillin-Tazobactam 3 200 100 .375 gm In Sodium Chloride 0.9% 100 ml @ 25 mls/hr IVPB Q8HR [facility] Rx# :[id number] Intake, IV Titration 175.440 285.69 231.407 Amount propofoL 1,000 mg In 175.440 285.69 231.407 Empty Bag 1 bag @ Titrate IV .Q0M ANGELA Rx#: [id number] Tube Feeding 315 273 147 Other 100 90 60 Output: Urine 1245 455 555 Other: Voiding Method Indwelling Catheter Indwelling Catheter Indwelling Catheter # Bowel Movements 1 - Constitutional General appearance: Present: average body habitus, no acute distress - Labs CBC & Chem 7: 02/23/21 04:56 02/23/21 04:56 Labs: Abnormal Lab Results - Last 24 Hours (Table) 02/21/21 02/22/21 02/23/21 Range/Units 11:38 18:10 00:56 RBC (3.80-5.40) m/uL Hgb (11.4-16.0) gm/dL Hct (34.0-46.0) % MCHC (31.0-37.0) g/dL Plt Count (150-450) k/uL Lymphocytes # (1.0-4.8) k/uL ABG pO2 (83-108) mmHg ABG Total CO2 (19-24) mmol/L ABG O2 Saturation (94-97) % Potassium (3.5-5.1) mmol/L Chloride (98-107) mmol/L Carbon Dioxide (22-30) mmol/L BUN (7-17) mg/dL Creatinine (0.52-1.04) mg/dL Glucose (74-99) mg/dL POC Glucose (mg/dL) 190 H 182 H (75-99) mg/dL Calcium (8.4-10.2) mg/dL Total Protein (6.3-8.2) g/dL Albumin (3.5-5.0) g/dL Methylmalonic Acid 0.48 H (<0.40) umol/L 02/23/21 02/23/21 02/23/21 Range/Units 04:56 04:56 05:20 RBC 3.12 L (3.80-5.40) m/uL Hgb 8.9 L (11.4-16.0) gm/dL Hct 29.4 L (34.0-46.0) % MCHC 30.2 L (31.0-37.0) g/dL Plt Count 71 L (150-450) k/uL Lymphocytes # 0.5 L (1.0-4.8) k/uL ABG pO2 130 H (83-108) mmHg ABG Total CO2 25 H (19-24) mmol/L ABG O2 Saturation 99.7 H (94-97) % Potassium 3.3 L (3.5-5.1) mmol/L Chloride 109 H (98-107) mmol/L Carbon Dioxide 21 L (22-30) mmol/L BUN 31 H (7-17) mg/dL Creatinine 1.24 H (0.52-1.04) mg/dL Glucose 149 H (74-99) mg/dL POC Glucose (mg/dL) (75-99) mg/dL Calcium 8.3 L (8.4-10.2) mg/dL Total Protein 5.8 L (6.3-8.2) g/dL Albumin 3.0 L (3.5-5.0) g/dL Methylmalonic Acid (<0.40) umol/L 02/23/21 Range/Units 11:17 RBC (3.80-5.40) m/uL Hgb (11.4-16.0) gm/dL Hct (34.0-46.0) % MCHC (31.0-37.0) g/dL Plt Count (150-450) k/uL Lymphocytes # (1.0-4.8) k/uL ABG pO2 (83-108) mmHg ABG Total CO2 (19-24) mmol/L ABG O2 Saturation (94-97) % Potassium (3.5-5.1) mmol/L Chloride (98-107) mmol/L Carbon Dioxide (22-30) mmol/L BUN (7-17) mg/dL Creatinine (0.52-1.04) mg/dL Glucose (74-99) mg/dL POC Glucose (mg/dL) 181 H (75-99) mg/dL Calcium (8.4-10.2) mg/dL Total Protein (6.3-8.2) g/dL Albumin (3.5-5.0) g/dL Methylmalonic Acid (<0.40) umol/L Microbiology - Last 24 Hours (Table) 02/18/21 03:30 Blood Culture - Preliminary Blood No Growth after 120 hours 02/18/21 03:40 Blood Culture - Preliminary Blood No Growth after 120 hours Assessment and Plan (1) Bicytopenia Narrative/Plan: Bicytopenia noted as far back as 2017. You can see where patient's counts have decreased during episodes of illness/admissions. Cytopenia workup has been ordered as no history of hematological work up in this medical record. Also, HIT antibody has been ordered, still pending. High [place]/lambda with normal ratio Protein peak noted, 0.20g/dl, pending immunofixation Transfuse to keep hemoglobin 7 or higher unless symptomatic. Hgb 8.9 today Transfuse to keep platelets greater than 10,000 unless bleeding, no evidence of bleeding today. With infection, platelets typically above 20K and 30,000 or more preferred. Again, always monitoring for symptoms. Current Visit: Yes Status: Chronic Priority: High Code(s): D75.89 - OTHER SPECIFIED DISEASES OF BLOOD AND BLOOD-FORMING ORGANS SNOMED Code(s): 15738843
[2021-02-23 17:32] LABS: Glucose,Whole Blood 149 mg/dL (75-99)
[2021-02-23] MEDS ORDERED: SODIUM CHLORIDE 0.9% 1,000 ML IV SCH (18:30)
--- NOTE | 2021-02-23 18:31 | P.PN ---
Progress Note - Text Progress Note Date: 02/23/21 Chief Complaint: Short of breath history of present complaint: This is a very pleasant 85-year-old patient of Dr. Maya. Currently at [facility]. Chronic stable medical conditions include COPD, paroxysmal atrial fibrillation, hypertension, hyperlipidemia, GERD, osteoarthritis, secondary pulmonary hypertension, hypothyroid, rosacea, osteoarthritis, urine stress incontinence,CHF from diastolic dysfunction EF 55- 60%, severe mitral regurgitation, moderate mitral stenosis, moderate tricuspid regurgitation, secondary pulmonary hypertension. Diverticulosis. at her baseline uses a cane and a walker. EMS was called out as patient had been lethargic all day. Patient is complaining that she is not feeling well. One hour prior to the EMS arrival patient became increasingly short of breath. Patient at baseline is 3 L of nasal cannula. And patient became less responsive and breathing worsen. 4 days ago patient had a negative COVID testing. When EMS arrived patient's found to have agonal respiration. Telemetry showed sinus rhythm. Patient is intubated. This afternoon patient has FiO2 15 of PEEP of 5. Drips included propofol and norepinephrine. Telemetry shows sinus rhythm. Admitted with bilateral pneumonia, acute respiratory arrest on ventilator support. Started on IV Zosyn, Levothroid, propofol, IV Solu-Medrol, bronchodilators. Today: ICU. Ventilator FiO2 40 and a PEEP of 5. on propofol. Telemetry- sinus rhythm. Receiving tube feeding Review of systems: Patient intubated Active Medications Acetaminophen (Acetaminophen Suppository 650 Mg Supp) 650 mg RECTAL Q4HR PRN PRN Reason: Fever And/ Or Mild Pain Acetaminophen (Acetaminophen Tab 325 Mg Tab) 650 mg PO Q4HR PRN PRN Reason: Fever and/or Mild Pain Acetazolamide (Acetazolamide 250 Mg Tab) 250 mg PO BID [facility] Last Admin: 02/23/21 09:57 Dose: 250 mg Documented by: Albuterol/Ipratropium (Ipratropium-Albuterol 3 Ml Neb) 3 ml INHALATION RT-QID [facility] Last Admin: 02/23/21 16:23 Dose: 3 ml Documented by: Amiodarone HCl (Amiodarone 100 Mg Tab) 100 mg PO DAILY [facility] Last Admin: 02/23/21 09:56 Dose: 100 mg Documented by: Chlorhexidine Gluconate (Chlorhexidine Gluconate 15 Ml Cup) 15 ml MUCOUS MEM BID [facility] Last Admin: 02/23/21 09:55 Dose: 15 ml Documented by: Doxycycline Monohydrate (Doxycycline 100 Mg Cap) 100 mg PO BID [facility] Last Admin: 02/23/21 09:57 Dose: 100 mg Documented by: Enoxaparin Sodium (Enoxaparin 30 Mg/0.3 Ml Syringe) 30 mg SQ DAILY [facility] Famotidine (Famotidine 20 Mg/2 Ml Vial) 20 mg IV Q12HR [facility] Last Admin: 02/23/21 09:58 Dose: 20 mg Documented by: Propofol 1,000 mg/ IV Solution 100 mls @ 0 mls/hr IV .Q0M [facility]; Protocol Last Titration: 02/23/21 15:10 Dose: 0 mcg/kg/min, 0 mls/hr Documented by: Piperacillin Sod/Tazobactam (Sod 3.375 gm/ Sodium Chloride) 100 mls @ 25 mls/hr IVPB Q8HR [facility] Last Admin: 02/23/21 17:02 Dose: 25 mls/hr Documented by: Norepinephrine Bitartrate 4 mg (/ Sodium Chloride) 254 mls @ 15.621 mls/hr IV .[id number] [facility]; Protocol Last Admin: 02/23/21 06:50 Dose: Not Given Documented by: Insulin Aspart (Insulin Aspart (Novolog) 100 Unit/Ml Vial) 0 unit SQ Q6H [facility]; Protocol Last Admin: 02/23/21 18:14 Dose: 2 unit Documented by: Latanoprost (Latanoprost 0.005% Ophth Drops 2.5 Ml Btl) 1 drops BOTH EYES HS@2000 [facility] Last Admin: 02/22/21 20:27 Dose: 1 drops Documented by: Levothyroxine Sodium (Levothyroxine 112 Mcg Tab) 112 mcg OG-TUBE HS [facility] Last Admin: 02/22/21 20:51 Dose: 112 mcg Documented by: Losartan Potassium (Losartan 50 Mg Tab) 100 mg PO DAILY [facility] Last Admin: 02/23/21 09:56 Dose: 100 mg Documented by: Methylprednisolone Sodium Succinate (Methylprednisolone Sod Succi 40 Mg/Ml 1 Ml Vial) 40 mg IV Q8HR [facility] Last Admin: 02/23/21 17:02 Dose: 40 mg Documented by: Metoprolol Tartrate (Metoprolol Tartrate 50 Mg Tab) 50 mg PO BID [facility] Last Admin: 02/23/21 09:33 Dose: Not Given Documented by: Miscellaneous Information (Potassium Replacement Protocol 1 Each Misc) 1 each MISCELLANE DAILY PRN; Protocol PRN Reason: Per Protocol Miscellaneous Information (Magnesium Replacement Protocol 1 Each Misc) 1 each MISCELLANE DAILY PRN; Protocol PRN Reason: Per Protocol Miscellaneous Information (Potassium Replacement Protocol 1 Each Misc) 1 each MISCELLANE DAILY PRN; Protocol PRN Reason: Per Protocol Morphine Sulfate (Morphine Sulfate 4 Mg/Ml Syringe) 3 mg IV Q2HR PRN PRN Reason: Pain Scale 6 to 7 Naloxone HCl (Naloxone 0.4 Mg/Ml 1 Ml Vial) 0.2 mg IV Q2M PRN PRN Reason: Opioid Reversal Ropinirole HCl (Ropinirole Hcl 1 Mg Tab) 2 mg PO HS [facility] Last Admin: 02/22/21 20:51 Dose: 2 mg Documented by: Senna/Docusate Sodium (Sennosides-Docusate Sodium 1 Each Tab) 1 each PO DAILY [facility] Last Admin: 02/23/21 09:57 Dose: Not Given Documented by: Sodium Chloride (Sodium Chloride 0.9% Flush 10 Ml Syringe) 10 ml IV Q4HR PRN PRN Reason: PICC Line Sodium Chloride (Sodium Chloride 0.9% Flush 10 Ml Syringe) 10 ml IV WEEKLY [facility] Sodium Chloride (Sodium Chloride 0.9% Flush 10 Ml Syringe) 20 ml IV Q4HR PRN PRN Reason: PICC Line Past medical history: Right adnexa growth being followed as an outpatient, COPD, paroxysmal atrial fibrillation, hypertension, hyperlipidemia, COPD, GERD, primary osteoarthritis, colon cancer in 2001, secondary pulmonary hypertension, hypothyroid, rosacea, urinary stress incontinence, osteoarthritis chronic diverticulosis, gastritis duodenitis, colon cancer treated with surgery chemoradiation, home oxygen 2 L, chronic kidney disease stage III, stroke with some speech impairment, hypothyroid,chronic congestive heart failure from diastolic dysfunction EF 55- 60%, severe mitral regurgitation, moderate mitral stenosis, moderate tricuspid regurgitation., chronic thrombocytopenia Social history: [facility] [place] Smoked for 20 years, stopped in 1986, smoked a pack and half Physical examination: VITAL SIGNS: 98, 55, 14, 124/48, 100% on the ventilator GENERAL: Laying in bed, intubated EYES: Pupils equal. Conjunctiva normal HEENT: External appearance of nose and ears normal, oral cavity ET tube, NECK: JVD unable to assess; masses not palpable. HEART: First and second heart sounds are normal; edema present LUNGS: Respiratory rate increased, decreased breaths, ABDOMEN: Soft, nontender, liver spleen not palpable, no masses palpable. PSYCH: Unable to assess. EXTREMITIES: Missing right hand fingers, except thumb INVESTIGATIONS, reviewed in the clinical context: February 23: WBC 6.7 hemoglobin 8.9 platelets 71 potassium 3.3 creatinine 1.24 February 22: WBC 7.5 hemoglobin 7.8 platelets 85 potassium 3.6 bun 30 creatinine 1.14 February 21: WBC 9.3 hemoglobin 8.4 platelets 88 potassium 3.8 creatinine 0.89 TSH 0.14 T4 3 0.61 February 20: WBC 8.4 hemoglobin 8.5 platelets 74 February 19: WBC 12 hemoglobin 7.4 platelets 122 potassium 3.2 creatinine 1.03 Computed tomography scan of the chest: Negative for PE. Extensive pulmonary airspace consolidation with bilateral pleural effusions. WBC 16.1 hemoglobin 7.9 platelets 176 d-dimer 4.86 ABG pH 7.4 pCO2 38 pO2 208 potassium 4 bun 27 creatinine 1.19 Lactic acid 5.7 and repeat 2.2 proBNP 2900 procalcitonin 0.04 UA showing 1+ protein Coronavirus [PCR] not detected EKG tracing personally reviewed by me-sinus rhythm, left bundle-branch block Chest x-ray film personally reviewed by me-bilateral extensive pulmonary infiltrates assessment: -bilateral suspected gram-negative pneumonia. IV Zosyn. Follow with pulmonary -Acute hypoxic respiratory failure, secondary to pneumonia patient went into respiratory some improvement On ventilator support. FiO2 40% % with a PEEP of 5 -Acute on chronic congestive heart failure exacerbation, from diastolic dysfunction EF 55-60%,-euvolemic Cutback on IV Lasix -Acute COPD exacerbation in an [id number] to respond bronchodilators, IV steroids, -Severe mitral regurgitation, moderate mitral stenosis, moderate tricuspid regurgitation Follow clinically -Secondary moderate pulmonary hypertension from COPD and CHF Follow clinically -Essential hypertension- continue beta amara. Amlodipine added -GERD- use PPI -Primary osteoarthritis- use analgesics when necessary -Hypothyroid- continue Synthroid -Chronic urinary stress incontinence- Doll catheter -Chronic diverticulosis- Follow clinically -Chronic gait dysfunction uses walker -Left bundle-branch block, chronic Telemetry -Paroxysmal atrial fibrillation, currently sinus rhythm. -New-onset of thrombocytopenia. Platelet count above 50. Consult hematology -Metabolic alkalosis likely from volume contraction Add Diamox. Hold of IV Lasix temporarily. -Acute kidney injury likely prerenal from diuresis Gentle diuresis overnight for a total of 500 mL. Gentle status is overnight. Check labs in the morning. Remains critically ill.
[2021-02-23] MEDS: LEVOTHYROXINE 112 MCG TAB OG-TUBE SCH (22:12)
[2021-02-23] MEDS: LATANOPROST 0.005% OPHTH DROPS 2.5 ML BTL BOTH EYES SCH (22:12)
[2021-02-23 23:53] LABS: Glucose,Whole Blood 168 mg/dL (75-99)
[2021-02-24] MEDS: INSULIN ASPART (NovoLOG) 100 UNIT/ML VIAL SQ SCH ×4 (00:05→18:50)
[2021-02-24] MEDS: methylPREDNISolone SOD SUCCI 40 MG/ML 1 ML VIAL IV SCH ×3 (00:07→16:57)
[2021-02-24 05:35] LABS: Hypochromasia Marked; MCH 29.7 pg (25.0-35.0); MCHC 31.8 g/dL (31.0-37.0); MCV 93.4 fL (80.0-100.0); Mean Platelet Volume 9.8; Poikilocytosis Slight; RBC 2.68 m/uL (3.80-5.40); RDW 15.1 % (11.5-15.5)
[2021-02-24 05:36] LABS: ABG Base Excess -1.7 mmol/L; ABG HCO3 23 mmol/L (21-25); ABG Oxygen Saturation 99.4 % (94-97); ABG PCO2 37 mmHg (35-45); ABG PH 7.41 (7.35-7.45); ABG PO2 118 mmHg (83-108); ABG TCO2 24 mmol/L (19-24); Allen Test Performed? Yes
[2021-02-24 05:44] LABS: Glucose,Whole Blood 166 mg/dL (75-99)
[2021-02-24 05:51] LABS: Platelet Count 67 k/uL (150-450)
[2021-02-24 05:52] LABS: Calcium 8.8 mg/dL (8.4-10.2); Potassium 3.5 mmol/L (3.5-5.1)
[2021-02-24] MEDS: NOREPINEPHRINE 4 MG in SODIUM CHLORIDE 0.9% 250 ML IV SCH ×2 (07:41→16:28)
[2021-02-24] MEDS: PIPERACILLIN-TAZOBACTAM 3.375 GM in SODIUM CHLORIDE 0.9% 100 ML IVPB SCH ×3 (07:57→16:57)
[2021-02-24] MEDS: DOXYCYCLINE 100 MG CAP PO SCH (07:58)
[2021-02-24] MEDS: CHLORHEXIDINE GLUCONATE 15 ML CUP MUCOUS MEM SCH (07:58)
[2021-02-24] MEDS: FAMOTIDINE 20 MG/2 ML VIAL IV SCH ×2 (07:59→20:37)
[2021-02-24] MEDS: acetaZOLAMIDE 250 MG TAB PO SCH (07:59)
[2021-02-24] MEDS: LOSARTAN 50 MG TAB PO SCH (07:59)
[2021-02-24] MEDS: AMIODARONE 100 MG TAB PO SCH (07:59)
[2021-02-24 08:06] LABS: Glucose,Whole Blood 147 mg/dL (75-99)
[2021-02-24] MEDS: ENOXAPARIN 30 MG/0.3 ML SYRINGE SQ SCH (08:10)
[2021-02-24] MEDS: SENNOSIDES-DOCUSATE SODIUM 1 EACH TAB PO SCH (08:11)
[2021-02-24] MEDS: IPRATROPIUM-ALBUTEROL 3 ML NEB INHALATION SCH ×4 (08:14→21:12)
[2021-02-24] MEDS: METOPROLOL TARTRATE 50 MG TAB PO SCH (08:16)
[2021-02-24] MEDS: POTASSIUM BICARBONATE/CIT AC 20 MEQ TABLET.EFF NG-TUBE SCH ×2 (08:22→09:30)
[2021-02-24 09:52] LABS: ABG Base Excess -1.6 mmol/L; ABG HCO3 23 mmol/L (21-25); ABG PCO2 39 mmHg (35-45); ABG PH 7.39 (7.35-7.45); ABG PO2 111 mmHg (83-108); ABG TCO2 25 mmol/L (19-24); Allen Test Performed? Yes
--- NOTE | 2021-02-24 10:11 | PN ---
PROGRESS NOTE Mrs. Campoverde is an 85-year-old female with known history of mitral and tricuspid valve disease, who presented with worsening respiratory failure requiring mechanical ventilation. She remains intubated this morning. She is awake and following verbal commands. She continued in sinus bradycardia. There is no evidence of ventricular tachycardia or atrial fibrillation. Hemodynamically, she is stable. She is on no vasopressors. She continues to be at this time on amiodarone 100 mg daily, Diamox, Lovenox subcu, losartan 100 mg daily, metoprolol tartrate 50 mg twice a day. PHYSICAL EXAMINATION: Blood pressure 114/79 with a heart in the 60s. LUNGS: Clear. HEART: Regular rate and rhythm, S1, S2. No S3 with a holosystolic murmur in the apex. No rub. ABDOMEN: Soft, nontender. EXTREMITIES: No significant edema. LAB DATA: Revealed BUN and creatinine 28 and 1.17. Potassium 3.5, hemoglobin of 8. IMPRESSION: 1. Respiratory failure, improving. The patient is hemodynamically stable with good urine output. 2. Paroxysmal fibrillation in sinus mechanism. 3. Anemia. 4. Hypertension. 5. Sinus bradycardia, stable. 6. Chronic obstructive lung disease. 7. Renal failure, stable. RECOMMENDATION: We will continue present therapy, continue on her present regimen. Will hopefully be able to wean and extubate today and depending on her progress, further recommendation will be made. DUSTY / MARS: [id number] /
[2021-02-24 11:25] LABS: Albumin 3.1 g/dL (3.5-5.0); Potassium 4.6 mmol/L (3.5-5.1); Total Bilirubin 0.7 mg/dL (0.2-1.3)
[2021-02-24 11:34] LABS: Glucose,Whole Blood 129 mg/dL (75-99)
--- NOTE | 2021-02-24 11:45 | XR ---
EXAMINATION TYPE: XR chest 1V portable DATE OF EXAM: 02/24/2021 Comparison: 02/23/2021 Clinical History: 85 year-old female tube placement Tube placement Findings: The patient's ET tube may be low at 8 mm but the patient's chin appears down. Recommend repeat exam i n neutral position. NG tube courses below the diaphragm. The sidehole is just below the GE junction. Heart mildly enlarged. Diffuse interstitial density is similar. Left PICC tip in cavoatrial junction region. Fracture deformity proximal left humerus. Impression: 1. ET tube appears low, tip 8 mm from the justo, but the patient's chin is down. Recommend repeat ex am after pulling back 1 cm and having the patient's head in a neutral position. 2. Interstitial densities are similar.
[2021-02-24 11:53] LABS: Partial Thromboplastin Time 19.7 sec (22.0-30.0)
[2021-02-24 17:51] LABS: Glucose,Whole Blood 141 mg/dL (75-99)
--- NOTE | 2021-02-24 19:10 | P.PN ---
Progress Note - Text Progress Note Date: 02/24/21 Chief Complaint: Short of breath history of present complaint: This is a very pleasant 85-year-old patient of Dr. Maya. Currently at [facility]. Chronic stable medical conditions include COPD, paroxysmal atrial fibrillation, hypertension, hyperlipidemia, GERD, osteoarthritis, secondary pulmonary hypertension, hypothyroid, rosacea, osteoarthritis, urine stress incontinence,CHF from diastolic dysfunction EF 55- 60%, severe mitral regurgitation, moderate mitral stenosis, moderate tricuspid regurgitation, secondary pulmonary hypertension. Diverticulosis. at her baseline uses a cane and a walker. EMS was called out as patient had been lethargic all day. Patient is complaining that she is not feeling well. One hour prior to the EMS arrival patient became increasingly short of breath. Patient at baseline is 3 L of nasal cannula. And patient became less responsive and breathing worsen. 4 days ago patient had a negative COVID testing. When EMS arrived patient's found to have agonal respiration. Telemetry showed sinus rhythm. Patient is intubated. This afternoon patient has FiO2 15 of PEEP of 5. Drips included propofol and norepinephrine. Telemetry shows sinus rhythm. Admitted with bilateral pneumonia, acute respiratory arrest on ventilator support. Started on IV Zosyn, Levothroid, propofol, IV Solu-Medrol, bronchodilators. Today: ICU. Patient extubated earlier today. Awake, tired, following simple commands. Short of breath. Congested chest. Nasal cannula. Review of systems: Patient to tired Active Medications Acetaminophen (Acetaminophen Suppository 650 Mg Supp) 650 mg RECTAL Q4HR PRN PRN Reason: Fever And/ Or Mild Pain Acetaminophen (Acetaminophen Tab 325 Mg Tab) 650 mg PO Q4HR PRN PRN Reason: Fever and/or Mild Pain Acetazolamide (Acetazolamide 250 Mg Tab) 250 mg PO BID [facility] Last Admin: 02/24/21 07:59 Dose: 250 mg Documented by: Albuterol/Ipratropium (Ipratropium-Albuterol 3 Ml Neb) 3 ml INHALATION RT-QID [facility] Last Admin: 02/24/21 16:08 Dose: 3 ml Documented by: Amiodarone HCl (Amiodarone 100 Mg Tab) 100 mg PO DAILY [facility] Last Admin: 02/24/21 07:59 Dose: 100 mg Documented by: Chlorhexidine Gluconate (Chlorhexidine Gluconate 15 Ml Cup) 15 ml MUCOUS MEM BID [facility] Last Admin: 02/24/21 07:58 Dose: 15 ml Documented by: Doxycycline Monohydrate (Doxycycline 100 Mg Cap) 100 mg PO BID [facility] Last Admin: 02/24/21 07:58 Dose: 100 mg Documented by: Enoxaparin Sodium (Enoxaparin 30 Mg/0.3 Ml Syringe) 30 mg SQ DAILY [facility] Last Admin: 02/24/21 08:10 Dose: Not Given Documented by: Famotidine (Famotidine 20 Mg/2 Ml Vial) 20 mg IV Q12HR [facility] Last Admin: 02/24/21 07:59 Dose: 20 mg Documented by: Propofol 1,000 mg/ IV Solution 100 mls @ 0 mls/hr IV .Q0M [facility]; Protocol Last Titration: 02/23/21 15:10 Dose: 0 mcg/kg/min, 0 mls/hr Documented by: Piperacillin Sod/Tazobactam (Sod 3.375 gm/ Sodium Chloride) 100 mls @ 25 mls/hr IVPB Q8HR [facility] Last Admin: 02/24/21 16:57 Dose: 25 mls/hr Documented by: Norepinephrine Bitartrate 4 mg (/ Sodium Chloride) 254 mls @ 15.621 mls/hr IV .[id number] [facility]; Protocol Last Admin: 02/24/21 16:28 Dose: Not Given Documented by: Insulin Aspart (Insulin Aspart (Novolog) 100 Unit/Ml Vial) 0 unit SQ Q6H [facility]; Protocol Last Admin: 02/24/21 18:50 Dose: 2 unit Documented by: Latanoprost (Latanoprost 0.005% Ophth Drops 2.5 Ml Btl) 1 drops BOTH EYES HS@2000 [facility] Last Admin: 02/23/21 22:12 Dose: 1 drops Documented by: Levothyroxine Sodium (Levothyroxine 112 Mcg Tab) 112 mcg OG-TUBE HS [facility] Last Admin: 02/23/21 22:12 Dose: 112 mcg Documented by: Losartan Potassium (Losartan 50 Mg Tab) 100 mg PO DAILY [facility] Last Admin: 02/24/21 07:59 Dose: 100 mg Documented by: Methylprednisolone Sodium Succinate (Methylprednisolone Sod Succi 40 Mg/Ml 1 Ml Vial) 40 mg IV Q8HR [facility] Last Admin: 02/24/21 16:57 Dose: 40 mg Documented by: Metoprolol Tartrate (Metoprolol Tartrate 5 Mg/5 Ml Vial) 5 mg IVP BID [facility] Miscellaneous Information (Potassium Replacement Protocol 1 Each Misc) 1 each MISCELLANE DAILY PRN; Protocol PRN Reason: Per Protocol Miscellaneous Information (Magnesium Replacement Protocol 1 Each Misc) 1 each MISCELLANE DAILY PRN; Protocol PRN Reason: Per Protocol Miscellaneous Information (Potassium Replacement Protocol 1 Each Misc) 1 each MISCELLANE DAILY PRN; Protocol PRN Reason: Per Protocol Morphine Sulfate (Morphine Sulfate 4 Mg/Ml Syringe) 3 mg IV Q2HR PRN PRN Reason: Pain Scale 6 to 7 Naloxone HCl (Naloxone 0.4 Mg/Ml 1 Ml Vial) 0.2 mg IV Q2M PRN PRN Reason: Opioid Reversal Ropinirole HCl (Ropinirole Hcl 1 Mg Tab) 2 mg PO HS [facility] Last Admin: 02/23/21 22:12 Dose: 2 mg Documented by: Senna/Docusate Sodium (Sennosides-Docusate Sodium 1 Each Tab) 1 each PO DAILY [facility] Last Admin: 02/24/21 08:11 Dose: Not Given Documented by: Sodium Chloride (Sodium Chloride 0.9% Flush 10 Ml Syringe) 10 ml IV Q4HR PRN PRN Reason: PICC Line Sodium Chloride (Sodium Chloride 0.9% Flush 10 Ml Syringe) 10 ml IV WEEKLY [facility] Sodium Chloride (Sodium Chloride 0.9% Flush 10 Ml Syringe) 20 ml IV Q4HR PRN PRN Reason: PICC Line Past medical history: Right adnexa growth being followed as an outpatient, COPD, paroxysmal atrial fibrillation, hypertension, hyperlipidemia, COPD, GERD, primary osteoarthritis, colon cancer in 2001, secondary pulmonary hypertension, hypothyroid, rosacea, urinary stress incontinence, osteoarthritis chronic diverticulosis, gastritis duodenitis, colon cancer treated with surgery chemoradiation, home oxygen 2 L, chronic kidney disease stage III, stroke with some speech impairment, hypothyroid,chronic congestive heart failure from diastolic dysfunction EF 55- 60%, severe mitral regurgitation, moderate mitral stenosis, moderate tricuspid regurgitation., chronic thrombocytopenia Social history: At [facility] [place] Smoked for 20 years, stopped in 1986, smoked a pack and half Physical examination: VITAL SIGNS: 98.1, 73, 17, 1 14 x 55, 99% on 4 L GENERAL: Laying in bed, tired awake, audibly congested EYES: Pupils equal. Conjunctiva normal HEENT: External appearance of nose and ears normal, oral cavity dry NECK: JVD unable to assess; masses not palpable. HEART: First and second heart sounds are normal; edema present LUNGS: Respiratory rate increased, decreased breaths, ABDOMEN: Soft, nontender, liver spleen not palpable, no masses palpable. PSYCH: Unable to assess. EXTREMITIES: Missing right hand fingers, except thumb INVESTIGATIONS, reviewed in the clinical context: February 24: Potassium 4.6 creatinine 1.17 February 23: WBC 6.7 hemoglobin 8.9 platelets 71 potassium 3.3 creatinine 1.24 February 22: WBC 7.5 hemoglobin 7.8 platelets 85 potassium 3.6 bun 30 creatinine 1.14 February 21: WBC 9.3 hemoglobin 8.4 platelets 88 potassium 3.8 creatinine 0.89 TSH 0.14 T4 3 0.61 February 20: WBC 8.4 hemoglobin 8.5 platelets 74 February 19: WBC 12 hemoglobin 7.4 platelets 122 potassium 3.2 creatinine 1.03 Computed tomography scan of the chest: Negative for PE. Extensive pulmonary airspace consolidation with bilateral pleural effusions. WBC 16.1 hemoglobin 7.9 platelets 176 d-dimer 4.86 ABG pH 7.4 pCO2 38 pO2 208 potassium 4 bun 27 creatinine 1.19 Lactic acid 5.7 and repeat 2.2 proBNP 2900 procalcitonin 0.04 UA showing 1+ protein Coronavirus [PCR] not detected EKG tracing personally reviewed by me-sinus rhythm, left bundle-branch block Chest x-ray film personally reviewed by me-bilateral extensive pulmonary infiltrates assessment: -bilateral suspected gram-negative pneumonia. IV Zosyn. -Acute hypoxic respiratory failure, secondary to pneumonia patient went into respiratory some improvement On ventilator support. Extubated February 24 -Acute on chronic congestive heart failure exacerbation, from diastolic dysfunction EF 55-60%,-euvolemic Cutback on IV Lasix -Acute COPD exacerbation in an [id number] to respond bronchodilators, IV steroids, -Severe mitral regurgitation, moderate mitral stenosis, moderate tricuspid regurgitation Follow clinically -Secondary moderate pulmonary hypertension from COPD and CHF Follow clinically -Essential hypertension- continue beta amara. Amlodipine added -GERD- use PPI -Primary osteoarthritis- use analgesics when necessary -Hypothyroid- continue Synthroid -Chronic urinary stress incontinence- Doll catheter -Chronic diverticulosis- Follow clinically -Chronic gait dysfunction uses walker -Left bundle-branch block, chronic Telemetry -Paroxysmal atrial fibrillation, currently sinus rhythm. -New-onset of thrombocytopenia. Platelet count above 50. Consult hematology -Metabolic alkalosis likely from volume contraction Add Diamox. Hold of IV Lasix temporarily. -Acute kidney injury likely prerenal from diuresis Gentle diuresis overnight for a total of 500 mL. Patient extubated this morning. Tired. Aspiration precautions. Follow with pulmonary
[2021-02-24] MEDS: LATANOPROST 0.005% OPHTH DROPS 2.5 ML BTL BOTH EYES SCH (20:36)
[2021-02-24] MEDS: METOPROLOL TARTRATE 5 MG/5 ML VIAL IVP SCH (20:37)
[2021-02-24 23:38] LABS: Glucose,Whole Blood 152 mg/dL (75-99)
[2021-02-25] MEDS: DOXYCYCLINE 100 MG CAP PO SCH ×3 (01:54→21:24)
[2021-02-25] MEDS: acetaZOLAMIDE 250 MG TAB PO SCH ×3 (01:54→21:24)
[2021-02-25] MEDS: LEVOTHYROXINE 112 MCG TAB OG-TUBE SCH ×2 (01:55→21:22)
[2021-02-25 02:04] LABS: Glucose,Whole Blood 135 mg/dL (75-99)
[2021-02-25] MEDS: PIPERACILLIN-TAZOBACTAM 3.375 GM in SODIUM CHLORIDE 0.9% 100 ML IVPB SCH ×3 (02:14→17:19)
[2021-02-25] MEDS: INSULIN ASPART (NovoLOG) 100 UNIT/ML VIAL SQ SCH ×4 (02:17→17:41)
[2021-02-25] MEDS: methylPREDNISolone SOD SUCCI 40 MG/ML 1 ML VIAL IV SCH ×3 (02:18→17:19)
[2021-02-25 04:43] LABS: Hypochromasia Marked; MCH 28.3 pg (25.0-35.0); MCV 94.6 fL (80.0-100.0); Poikilocytosis Slight; RBC 3.18 m/uL (3.80-5.40); RDW 15.3 % (11.5-15.5); WBC 11.9 k/uL (3.8-10.6)
[2021-02-25 04:58] LABS: Platelet Count 86 k/uL (150-450)
[2021-02-25 05:40] LABS: Calcium 9.4 mg/dL (8.4-10.2); Potassium 3.8 mmol/L (3.5-5.1)
[2021-02-25 05:50] LABS: Glucose,Whole Blood 132 mg/dL (75-99)
--- NOTE | 2021-02-25 07:17 | XR ---
EXAMINATION TYPE: XR chest 1V portable DATE OF EXAM: 02/25/2021 CLINICAL HISTORY: Difficulty breathing and covid progress study. TECHNIQUE: Single AP portable upright view of the chest is obtained. COMPARISON: Chest x-ray from one day earlier and older studies FINDINGS: Interval extubation with removal of endotracheal and orogastric tubes. Stable left-sided P ICC line. Osseous structures are demineralized. Old malunion fracture left proximal humerus redemonstrated. Car diac silhouette size is stable and mildly enlarged with atherosclerotic aorta. Slight worsening multi focal opacities on background chronic parenchymal changes. IMPRESSION: Interval extubation. Worsening bilateral multifocal opacities consistent with covid-19 in fection progression.
[2021-02-25 07:21] LABS: Glucose,Whole Blood 160 mg/dL (75-99)
[2021-02-25] MEDS: NOREPINEPHRINE 4 MG in SODIUM CHLORIDE 0.9% 250 ML IV SCH (09:10)
[2021-02-25] MEDS: METOPROLOL TARTRATE 5 MG/5 ML VIAL IVP SCH ×3 (09:16→21:28)
[2021-02-25] MEDS: FAMOTIDINE 20 MG/2 ML VIAL IV SCH (09:17)
[2021-02-25] MEDS: AMIODARONE 100 MG TAB PO SCH (09:20)
[2021-02-25] MEDS: SENNOSIDES-DOCUSATE SODIUM 1 EACH TAB PO SCH (09:20)
[2021-02-25] MEDS: LOSARTAN 50 MG TAB PO SCH (09:20)
[2021-02-25] MEDS ORDERED: DEXTROSE 5% IN WATER 100 ML with AMIODARONE 150 MG IV ONE (09:30)
[2021-02-25] MEDS ORDERED: AMIODARONE 360 MG in DEXTROSE 5% IN WATER 200 ML IV ONE ×2 (09:45)
[2021-02-25] MEDS: IPRATROPIUM-ALBUTEROL 3 ML NEB INHALATION SCH ×4 (10:07→22:15)
[2021-02-25] MEDS: ENOXAPARIN 30 MG/0.3 ML SYRINGE SQ SCH (10:13)
--- NOTE | 2021-02-25 10:49 | PN ---
PROGRESS NOTE Mrs. Lopez is an 85-year-old female who has a history of multivalvular disease, who presents with progressive dyspnea and respiratory failure requiring mechanical ventilation. She is extubated and able to swallow. She denies any chest discomfort. No dyspnea. She is back in atrial fibrillation with episodes of rapid ventricular response. There is no ventricular ectopic activity. Her blood pressure is under good control. She is not able to take p.o. medication yet. She was supposed to be on amiodarone 100 mg daily, losartan 100 mg daily, and she was started on IV Lopressor. PHYSICAL EXAMINATION: Blood pressure running in the 150s to 160s with a heart rate in the 110s. Lungs was few crackles. Heart irregularly regular, tachycardic, S1, S2. No S3 with a holosystolic murmur in the apex. No diastolic murmur. Abdomen is soft and nontender. Extremities no significant edema. LAB DATA: Lab data revealed BUN and creatinine 28 and 1.26, potassium 3.8, hemoglobin of 9. IMPRESSION: 1. Respiratory failure with symptoms of congestive heart failure , improved, extubated. 2. Paroxysmal fibrillation, back in sinus mechanism. 3. Mitral and tricuspid valve regurgitation. 4. History of chronic obstructive lung disease. 5. Chronic kidney disease. 6. Anemia. RECOMMENDATION: I will start her on the IV Cardizem at this time. Hopefully we can restore sinus mechanism and maintain it. She will undergo a swallow study to evaluate her ability to take p.o. medication. Depending on her progress, further recommendations will be made. MMODL / IJN: [id number] /
--- NOTE | 2021-02-25 11:15 | P.PN ---
Subjective Progress Note Date: 02/24/21 Principal diagnosis: Acute hypoxic respiratory failure Bilateral pneumonia Sepsis Chronic kidney disease Altered mental status due to sepsis and pneumonia Baseline history of chronic atrial fibrillation heart failure Testing covid 19 has been negative 02/24/2021, patient seen and evaluated examined care plan discussed with the staff as well as the respiratory at length critical care time spent 35 minutes, patient was placed on CPAP of 5 pressure support and gradually titrated down to CPAP 5 and pressure support of 5, weaning parameters and arterial blood gases reviewed patient does well, proceed with extubation successfully done on 4 L oxygen slide wheezing is present we'll continue steroids breathing treatments and antibiotics, patient is not ready for oral we'll change to oral metaproterenol to IV, patient has intermittent runs of the A. fib with RVR, due to thrombocytopenia lobe in next is being held at this point of time 02/23/2021, patient seen eval examined during the rounds labs reviewed medications reviewed care plan discussed, patient remains on full ventilator support, discussed with RN and respiratory therapist patient likely has very small airway limiting air leak from the site of the ET tube, patient did well with CPAP and pressure support, would recommend to taper and DC the propofol drip do a CPAP and pressure support of trial started with CPAP 5 and pressure support of 10 and subsequently 5 and 5 and then obtain a blood gas and weaning parameters if patient does well and remains awake and alert will proceed with extubation him a chest x-ray reviewed as stable, reviewed potassium is 3.3 on potassium replacement protocol 02/22/2021, patient seen eval examined during the rounds labs reviewed medications reviewed patient remains on propofol, CPAP pressure support trial performed yesterday have been unsuccessful they were done on 5 of CPAP and pressure support of 5, we will stop the propofol today and developed pressure support trial of 10 with CPAP of 5 and 40% oxygen if tolerated well consider taking the tube out, he remains afebrile hemodynamically stable and stable oxygen saturation into mid 90s, labs are reviewed pH is 755 pCO2 29. 103, BUN/creatinine slightly up likely related to diuresis, 02/21/2021, patient seen eval examined during the rounds labs reviewed medications reviewed care plan discussed with the staff at length, patient is been down to 40% oxygen, been setting remains stable, propofol has been tapered to 15 mics now, patient is arousable, discussed with the respiratory therapist and nurse patient to go on CPAP pressure support. All drips stop the tube feed as well, will do weaning parameters, blood cultures have been negative, medications reviewed, chest x-ray stable ET tube slightly at the level of justo bilateral infiltrates are noted, noted respiratory alkalosis would recommend to do CPAP pressure support trial patient will automatically corrected 02/20/2021, patient seen eval examined during the rounds labs reviewed medications reviewed, patient is currently off of levo fed drip, euvolemic status appears to be present, however ventilator setting continued to have high FiO2 currently patient is on 60% oxygen over next 24 hours will try to wean down the oxygen, patient remains on broad-spectrum antibiotics no fever has been seen, urine output has been adequate, but patient has been replaced, radiographic studies labs reviewed care plan discussed with staff at length if patient is down to 40% and we will do a CPAP pressure support trial tomorrow morning, 2 feet can be initiated, 02/19/2021, patient seen eval examined during the rounds labs reviewed medications reviewed care plan discussed with the staff at length, patient remains on low dose of levo fed, unable to stop it as earlier this morning we stopped it but blood pressure dropped down requiring a reinitiation of levo fed, will require fluid bolus of the crystalloids 500 mL over 2 hours will be given, patient remains on full ventilator support currently patient is on FiO2 of 60%, with assist control rate of 20, tidal volume is 450, PEEP is 5, given hypotension cannot escalate the PEEP, first we'll try to taper off the levo fed then will taper the oxygen down by increasing PEEP, but cultures no growth so far, chest x-ray bilateral upper and mid lung field predominantly on the right side pneumonia stable ET tube, WBC have been lowered down to 12,000, arterial blood gas stable pO2 is 89, rash M is 3.2 BUN/creatinine improved to 20 and 1.03, currently patient is sedated with propofol drip, patient has a history of significant A. fib with RVR as well as moderate to severe mitral regurgitation, Patient is a 85-year-old [facility] resident brought into emergency department intubated on the field by EMS, she was having respiratory difficulties with argon of respiration, review of the records revealed that patient has a significant history of mood disorder depression hypertension and hypothyroidism, she has prior medical problems significant for atrial fibrillation not on any anticoagulation COPD heart failure dyslipidemia hypertension hypertensive cardiovascular disease and history of pulmonary hypertension history of stroke chronic kidney disease stage III, she used to smoke however stopped smoking several years ago, currently patient is on full ventilator support assist control of 20 breathing 20, PEEP of 5, 50% oxygen, tidal volume is 450, patient is on propofol 30 mics, hemodynamic status is stable patient is on levo fed 0.025, blood pressure is improved to 159/61, heart rate 63 saturation is 98%, EKG revealed left bundle-branch block, labs are significant for leukocytosis with WBC count is 16,000, hemoglobin and hematocrit 7.9 and 25, platelet count is 1 76,000, d-dimer is 4.86, lactic acid is up to 5.7 now came down to 2.2, subsequent 1 is 1.2, BUN/creatinine 27 1.19, coated 19 is negative, patient has received a dose of Lovenox and Zosyn and fluid boluses 1.5 L Objective - Vital Signs Vital signs: Vital Signs Temp 98.1 F 02/24/21 12:00 Pulse 72 02/24/21 15:00 Resp 17 02/24/21 15:00 BP 145/54 02/24/21 15:00 Pulse Ox 98 02/24/21 15:00 Intake & Output 02/23/21 02/24/21 02/24/21 18:59 06:59 18:59 Intake Total 748.407 420 150 Output Total 665 430 525 Balance 83.407 -10 -375 Weight 53.6 kg 53.6 kg Intake: IV 310 120 150 0.9ns @ kvo 110 120 50 Piperacillin-Tazobactam 3 200 100 .375 gm In Sodium Chloride 0.9% 100 ml @ 25 mls/hr IVPB Q8HR [facility] Rx# :[id number] Intake, IV Titration 231.407 Amount propofoL 1,000 mg In 231.407 Empty Bag 1 bag @ Titrate IV .Q0M [facility] Rx#: [id number] Tube Feeding 147 210 Other 60 90 Output: Urine 665 430 525 Other: Voiding Method Indwelling Catheter Indwelling Catheter Indwelling Catheter - Exam - Constitutional General appearance: average body habitus, disheveled, successfully weaned and extubated - EENT Eyes: PERRLA Ears: bilateral: normal - Neck Neck: lymphadenopathy Carotids: bilateral: upstroke normal - Respiratory Respiratory: bilateral: diminished - Cardiovascular Rhythm: regular Heart sounds: normal: S1, S2 - Gastrointestinal General gastrointestinal: decreased bowel sounds, distended, soft - Neurologic open eyes follow simple commands moving all 4 extremity - Labs CBC & Chem 7: 02/25/21 03:50 02/25/21 03:50 Labs: Abnormal Lab Results - Last 24 Hours (Table) 02/23/21 02/23/21 02/24/21 Range/Units 17:30 23:51 04:48 RBC (3.80-5.40) m/uL Hgb (11.4-16.0) gm/dL Hct (34.0-46.0) % Plt Count (150-450) k/uL APTT (22.0-30.0) sec ABG pO2 (83-108) mmHg ABG Total CO2 (19-24) mmol/L ABG O2 Saturation (94-97) % Chloride (98-107) mmol/L Carbon Dioxide (22-30) mmol/L BUN (7-17) mg/dL Creatinine (0.52-1.04) mg/dL Glucose (74-99) mg/dL POC Glucose (mg/dL) 149 H 168 H (75-99) mg/dL AST (14-36) U/L Total Protein (6.3-8.2) g/dL Albumin (3.5-5.0) g/dL Procalcitonin 0.12 H (0.02-0.09) ng/mL 02/24/21 02/24/21 02/24/21 Range/Units 04:48 04:48 05:29 RBC 2.68 L (3.80-5.40) m/uL Hgb 8.0 L (11.4-16.0) gm/dL Hct 25.0 L (34.0-46.0) % Plt Count 67 L (150-450) k/uL APTT (22.0-30.0) sec ABG pO2 118 H (83-108) mmHg ABG Total CO2 (19-24) mmol/L ABG O2 Saturation 99.4 H (94-97) % Chloride 110 H (98-107) mmol/L Carbon Dioxide 21 L (22-30) mmol/L BUN 28 H (7-17) mg/dL Creatinine 1.17 H (0.52-1.04) mg/dL Glucose 147 H (74-99) mg/dL POC Glucose (mg/dL) (75-99) mg/dL AST (14-36) U/L Total Protein (6.3-8.2) g/dL Albumin (3.5-5.0) g/dL Procalcitonin (0.02-0.09) ng/mL 02/24/21 02/24/21 02/24/21 Range/Units 05:43 08:04 09:49 RBC (3.80-5.40) m/uL Hgb (11.4-16.0) gm/dL Hct (34.0-46.0) % Plt Count (150-450) k/uL APTT (22.0-30.0) sec ABG pO2 111 H (83-108) mmHg ABG Total CO2 25 H (19-24) mmol/L ABG O2 Saturation 99.0 H (94-97) % Chloride (98-107) mmol/L Carbon Dioxide (22-30) mmol/L BUN (7-17) mg/dL Creatinine (0.52-1.04) mg/dL Glucose (74-99) mg/dL POC Glucose (mg/dL) 166 H 147 H (75-99) mg/dL AST (14-36) U/L Total Protein (6.3-8.2) g/dL Albumin (3.5-5.0) g/dL Procalcitonin (0.02-0.09) ng/mL 02/24/21 02/24/21 02/24/21 Range/Units 10:53 10:53 11:33 RBC (3.80-5.40) m/uL Hgb (11.4-16.0) gm/dL Hct (34.0-46.0) % Plt Count (150-450) k/uL APTT 19.7 L (22.0-30.0) sec ABG pO2 (83-108) mmHg ABG Total CO2 (19-24) mmol/L ABG O2 Saturation (94-97) % Chloride 112 H (98-107) mmol/L Carbon Dioxide 20 L (22-30) mmol/L BUN 30 H (7-17) mg/dL Creatinine 1.17 H (0.52-1.04) mg/dL Glucose 122 H (74-99) mg/dL POC Glucose (mg/dL) 129 H (75-99) mg/dL AST 37 H (14-36) U/L Total Protein 6.0 L (6.3-8.2) g/dL Albumin 3.1 L (3.5-5.0) g/dL Procalcitonin (0.02-0.09) ng/mL Microbiology - Last 24 Hours (Table) 02/18/21 03:40 Blood Culture - Final Blood No Growth after 144 hours 02/18/21 03:30 Blood Culture - Final Blood No Growth after 144 hours Assessment and Plan Assessment: Acute hypoxic respiratory failure Bilateral pneumonia hypokalemia Sepsis thrombocytopenia A. fib with RVR Chronic kidney disease Valvular heart disease with mitral regurgitation Altered mental status due to sepsis and pneumonia Baseline history of chronic atrial fibrillation heart failure Testing covidr 19 has been negative Plan: Place potassium as per protocol successfully weaned and extubated Fluid boluses as needed Echocardiogram results reviewed ejection fraction is 60%,, with mild to moderate aortic stenosis, severe pulmonary hypertension was noted right ventricle systolic pressure estimated to be 76, Broad-spectrum antibiotics Bronchodilators IV steroids Follow-up on Rodriguez cultures DVT prophylaxis with Lovenox, Which is on hold due to thrombocytopenia Further plan of care and recommendation as per clinical response of the patient was asked PT OT to evaluate Time with Patient: Greater than 30
--- NOTE | 2021-02-25 11:16 | P.PN ---
Subjective Progress Note Date: 02/25/21 Principal diagnosis: Acute hypoxic respiratory failure Bilateral pneumonia Sepsis Chronic kidney disease Altered mental status due to sepsis and pneumonia Baseline history of chronic atrial fibrillation heart failure Testing covid 19 has been negative 02/25/2021, patient seen eval examined during the rounds labs reviewed medications reviewed care plan discussed with the staff at length patient is awake and alert, follows simple commands but has mild shortness of breath patient went into runs of A. fib with RVR, Cardizem has been started by cardiovascular services, for anticoagulation will resume Lovenox as platelet count is better and improved, her last PT OT to evaluate patient, patient remains nothing by mouth due to weak swallowing functions 02/24/2021, patient seen and evaluated examined care plan discussed with the staff as well as the respiratory at length critical care time spent 35 minutes, patient was placed on CPAP of 5 pressure support and gradually titrated down to CPAP 5 and pressure support of 5, weaning parameters and arterial blood gases reviewed patient does well, proceed with extubation successfully done on 4 L oxygen slide wheezing is present we'll continue steroids breathing treatments and antibiotics, patient is not ready for oral we'll change to oral metaproterenol to IV, patient has intermittent runs of the A. fib with RVR, due to thrombocytopenia lobe in next is being held at this point of time 02/23/2021, patient seen eval examined during the rounds labs reviewed medications reviewed care plan discussed, patient remains on full ventilator support, discussed with RN and respiratory therapist patient likely has very small airway limiting air leak from the site of the ET tube, patient did well with CPAP and pressure support, would recommend to taper and DC the propofol drip do a CPAP and pressure support of trial started with CPAP 5 and pressure support of 10 and subsequently 5 and 5 and then obtain a blood gas and weaning parameters if patient does well and remains awake and alert will proceed with extubation him a chest x-ray reviewed as stable, reviewed potassium is 3.3 on potassium replacement protocol 02/22/2021, patient seen eval examined during the rounds labs reviewed medications reviewed patient remains on propofol, CPAP pressure support trial performed yesterday have been unsuccessful they were done on 5 of CPAP and pressure support of 5, we will stop the propofol today and developed pressure support trial of 10 with CPAP of 5 and 40% oxygen if tolerated well consider taking the tube out, he remains afebrile hemodynamically stable and stable oxygen saturation into mid 90s, labs are reviewed pH is 755 pCO2 29. 103, BUN/creatinine slightly up likely related to diuresis, 02/21/2021, patient seen eval examined during the rounds labs reviewed medications reviewed care plan discussed with the staff at length, patient is been down to 40% oxygen, been setting remains stable, propofol has been tapered to 15 mics now, patient is arousable, discussed with the respiratory therapist and nurse patient to go on CPAP pressure support. All drips stop the tube feed as well, will do weaning parameters, blood cultures have been negative, medications reviewed, chest x-ray stable ET tube slightly at the level of justo bilateral infiltrates are noted, noted respiratory alkalosis would recommend to do CPAP pressure support trial patient will automatically corrected 02/20/2021, patient seen eval examined during the rounds labs reviewed medications reviewed, patient is currently off of levo fed drip, euvolemic status appears to be present, however ventilator setting continued to have high FiO2 currently patient is on 60% oxygen over next 24 hours will try to wean down the oxygen, patient remains on broad-spectrum antibiotics no fever has been seen, urine output has been adequate, but patient has been replaced, radiographic studies labs reviewed care plan discussed with staff at length if patient is down to 40% and we will do a CPAP pressure support trial tomorrow morning, 2 feet can be initiated, 02/19/2021, patient seen eval examined during the rounds labs reviewed medications reviewed care plan discussed with the staff at length, patient remains on low dose of levo fed, unable to stop it as earlier this morning we stopped it but blood pressure dropped down requiring a reinitiation of levo fed, will require fluid bolus of the crystalloids 500 mL over 2 hours will be given, patient remains on full ventilator support currently patient is on FiO2 of 60%, with assist control rate of 20, tidal volume is 450, PEEP is 5, given hypotension cannot escalate the PEEP, first we'll try to taper off the levo fed then will taper the oxygen down by increasing PEEP, but cultures no growth so far, chest x-ray bilateral upper and mid lung field predominantly on the right side pneumonia stable ET tube, WBC have been lowered down to 12,000, arterial blood gas stable pO2 is 89, rash M is 3.2 BUN/creatinine improved to 20 and 1.03, currently patient is sedated with propofol drip, patient has a history of significant A. fib with RVR as well as moderate to severe mitral regurgitation, Patient is a 85-year-old [facility] resident brought into emergency department intubated on the field by EMS, she was having respiratory difficulties with argon of respiration, review of the records revealed that patient has a significant history of mood disorder depression hypertension and hypothyroidism, she has prior medical problems significant for atrial fibrillation not on any anticoagulation COPD heart failure dyslipidemia hypertension hypertensive cardiovascular disease and history of pulmonary hypertension history of stroke chronic kidney disease stage III, she used to smoke however stopped smoking several years ago, currently patient is on full ventilator support assist control of 20 breathing 20, PEEP of 5, 50% oxygen, tidal volume is 450, patient is on propofol 30 mics, hemodynamic status is stable patient is on levo fed 0.025, blood pressure is improved to 159/61, heart rate 63 saturation is 98%, EKG revealed left bundle-branch block, labs are significant for leukocytosis w ith WBC count is 16,000, hemoglobin and hematocrit 7.9 and 25, platelet count is 1 76,000, d-dimer is 4.86, lactic acid is up to 5.7 now came down to 2.2, subsequent 1 is 1.2, BUN/creatinine 27 1.19, coated 19 is negative, patient has received a dose of Lovenox and Zosyn and fluid boluses 1.5 L Objective - Vital Signs Vital signs: Vital Signs Temp 98.3 F 02/25/21 04:00 Pulse 68 02/25/21 07:00 Resp 15 02/25/21 07:00 BP 163/75 02/25/21 07:00 Pulse Ox 97 02/25/21 07:00 Intake & Output 02/24/21 02/25/21 02/25/21 18:59 06:59 18:59 Intake Total 150 110 10 Output Total 775 640 55 Balance -625 -530 -45 Weight 53.6 kg 51 kg Intake: IV 150 110 10 0.9ns @ kvo 50 110 10 Piperacillin-Tazobactam 3 100 .375 gm In Sodium Chloride 0.9% 100 ml @ 25 mls/hr IVPB Q8HR [facility] Rx# :[id number] Output: Urine 775 640 55 Other: Voiding Method Indwelling Catheter Indwelling Catheter - Exam - Constitutional General appearance: average body habitus, disheveled, successfully weaned and extubated - EENT Eyes: PERRLA Ears: bilateral: normal - Neck Neck: lymphadenopathy Carotids: bilateral: upstroke normal - Respiratory Respiratory: bilateral: diminished - Cardiovascular Rhythm: regular Heart sounds: normal: S1, S2 - Gastrointestinal General gastrointestinal: decreased bowel sounds, distended, soft - Neurologic open eyes follow simple commands moving all 4 extremity - Labs CBC & Chem 7: 02/25/21 03:50 02/25/21 03:50 Labs: Abnormal Lab Results - Last 24 Hours (Table) 02/24/21 02/24/21 02/24/21 Range/Units 04:48 10:53 10:53 WBC (3.8-10.6) k/uL RBC (3.80-5.40) m/uL Hgb (11.4-16.0) gm/dL Hct (34.0-46.0) % MCHC (31.0-37.0) g/dL Plt Count (150-450) k/uL APTT 19.7 L (22.0-30.0) sec Chloride 112 H (98-107) mmol/L Carbon Dioxide 20 L (22-30) mmol/L BUN 30 H (7-17) mg/dL Creatinine 1.17 H (0.52-1.04) mg/dL Glucose 122 H (74-99) mg/dL POC Glucose (mg/dL) (75-99) mg/dL AST 37 H (14-36) U/L Total Protein 6.0 L (6.3-8.2) g/dL Albumin 3.1 L (3.5-5.0) g/dL Procalcitonin 0.12 H (0.02-0.09) ng/mL 02/24/21 02/24/21 02/24/21 Range/Units 11:33 17:49 23:37 WBC (3.8-10.6) k/uL RBC (3.80-5.40) m/uL Hgb (11.4-16.0) gm/dL Hct (34.0-46.0) % MCHC (31.0-37.0) g/dL Plt Count (150-450) k/uL APTT (22.0-30.0) sec Chloride (98-107) mmol/L Carbon Dioxide (22-30) mmol/L BUN (7-17) mg/dL Creatinine (0.52-1.04) mg/dL Glucose (74-99) mg/dL POC Glucose (mg/dL) 129 H 141 H 152 H (75-99) mg/dL AST (14-36) U/L Total Protein (6.3-8.2) g/dL Albumin (3.5-5.0) g/dL Procalcitonin (0.02-0.09) ng/mL 02/25/21 02/25/21 02/25/21 Range/Units 02:03 03:50 03:50 WBC 11.9 H (3.8-10.6) k/uL RBC 3.18 L (3.80-5.40) m/uL Hgb 9.0 L (11.4-16.0) gm/dL Hct 30.0 L (34.0-46.0) % MCHC 30.0 L (31.0-37.0) g/dL Plt Count 86 L (150-450) k/uL APTT (22.0-30.0) sec Chloride 112 H (98-107) mmol/L Carbon Dioxide 21 L (22-30) mmol/L BUN 28 H (7-17) mg/dL Creatinine 1.26 H (0.52-1.04) mg/dL Glucose 113 H (74-99) mg/dL POC Glucose (mg/dL) 135 H (75-99) mg/dL AST (14-36) U/L Total Protein (6.3-8.2) g/dL Albumin (3.5-5.0) g/dL Procalcitonin (0.02-0.09) ng/mL 02/25/21 02/25/21 Range/Units 05:48 07:20 WBC (3.8-10.6) k/uL RBC (3.80-5.40) m/uL Hgb (11.4-16.0) gm/dL Hct (34.0-46.0) % MCHC (31.0-37.0) g/dL Plt Count (150-450) k/uL APTT (22.0-30.0) sec Chloride (98-107) mmol/L Carbon Dioxide (22-30) mmol/L BUN (7-17) mg/dL Creatinine (0.52-1.04) mg/dL Glucose (74-99) mg/dL POC Glucose (mg/dL) 132 H 160 H (75-99) mg/dL AST (14-36) U/L Total Protein (6.3-8.2) g/dL Albumin (3.5-5.0) g/dL Procalcitonin (0.02-0.09) ng/mL Microbiology - Last 24 Hours (Table) 02/18/21 03:40 Blood Culture - Final Blood No Growth after 144 hours 02/18/21 03:30 Blood Culture - Final Blood No Growth after 144 hours Assessment and Plan Assessment: Acute hypoxic respiratory failure Bilateral pneumonia hypokalemia Sepsis thrombocytopenia A. fib with RVR Chronic kidney disease Valvular heart disease with mitral regurgitation Altered mental status due to sepsis and pneumonia Baseline history of chronic atrial fibrillation heart failure Testing covidr 19 has been negative Plan: Place potassium as per protocol successfully weaned and extubated Fluid boluses as needed Echocardiogram results reviewed ejection fraction is 60%,, with mild to moderate aortic stenosis, severe pulmonary hypertension was noted right ventricle systolic pressure estimated to be 76, Broad-spectrum antibiotics Bronchodilators IV steroids Follow-up on Rodriguez cultures DVT prophylaxis with Lovenox, Which is on hold due to thrombocytopenia Further plan of care and recommendation as per clinical response of the patient was asked PT OT to evaluate Time with Patient: Greater than 30
[2021-02-25 11:54] LABS: Glucose,Whole Blood 187 mg/dL (75-99)
[2021-02-25] MEDS: AMIODARONE 450 MG in DEXTROSE 5% IN WATER 250 ML IV SCH ×2 (16:45)
--- NOTE | 2021-02-25 17:36 | P.PN ---
Progress Note - Text Progress Note Date: 02/25/21 Chief Complaint: Short of breath history of present complaint: This is a very pleasant 85-year-old patient of Dr. Maya. Currently at [facility]. Chronic stable medical conditions include COPD, paroxysmal atrial fibrillation, hypertension, hyperlipidemia, GERD, osteoarthritis, secondary pulmonary hypertension, hypothyroid, rosacea, osteoarthritis, urine stress incontinence,CHF from diastolic dysfunction EF 55- 60%, severe mitral regurgitation, moderate mitral stenosis, moderate tricuspid regurgitation, secondary pulmonary hypertension. Diverticulosis. at her baseline uses a cane and a walker. EMS was called out as patient had been lethargic all day. Patient is complaining that she is not feeling well. One hour prior to the EMS arrival patient became increasingly short of breath. Patient at baseline is 3 L of nasal cannula. And patient became less responsive and breathing worsen. 4 days ago patient had a negative COVID testing. When EMS arrived patient's found to have agonal respiration. Telemetry showed sinus rhythm. Patient is intubated. This afternoon patient has FiO2 15 of PEEP of 5. Drips included propofol and norepinephrine. Telemetry shows sinus rhythm. Admitted with bilateral pneumonia, acute respiratory arrest on ventilator support. Started on IV Zosyn, Levothroid, propofol, IV Solu-Medrol, bronchodilators. Extubated February 24 Today: ICU. Sitting up in a chair. Weak and tired. Following commands slowly. . Unable to vocalize. On 4 L of nasal cannula. Sinus rhythm. Review of systems: Patient unable to vocalize Active Medications Acetaminophen (Acetaminophen Suppository 650 Mg Supp) 650 mg RECTAL Q4HR PRN PRN Reason: Fever And/ Or Mild Pain Acetaminophen (Acetaminophen Tab 325 Mg Tab) 650 mg PO Q4HR PRN PRN Reason: Fever and/or Mild Pain Acetazolamide (Acetazolamide 250 Mg Tab) 250 mg PO BID [facility] Last Admin: 02/25/21 09:19 Dose: Not Given Documented by: Albuterol/Ipratropium (Ipratropium-Albuterol 3 Ml Neb) 3 ml INHALATION RT-QID [facility] Last Admin: 02/25/21 16:49 Dose: 3 ml Documented by: Doxycycline Monohydrate (Doxycycline 100 Mg Cap) 100 mg PO BID [facility] Last Admin: 02/25/21 09:20 Dose: Not Given Documented by: Enoxaparin Sodium (Enoxaparin 30 Mg/0.3 Ml Syringe) 30 mg SQ DAILY [facility] Last Admin: 02/25/21 10:13 Dose: 30 mg Documented by: Famotidine (Famotidine 20 Mg/2 Ml Vial) 20 mg IV DAILY [facility] Propofol 1,000 mg/ IV Solution 100 mls @ 0 mls/hr IV .Q0M [facility]; Protocol Last Titration: 02/23/21 15:10 Dose: 0 mcg/kg/min, 0 mls/hr Documented by: Piperacillin Sod/Tazobactam (Sod 3.375 gm/ Sodium Chloride) 100 mls @ 25 mls/hr IVPB Q8HR [facility] Last Admin: 02/25/21 17:19 Dose: 25 mls/hr Documented by: Norepinephrine Bitartrate 4 mg (/ Sodium Chloride) 254 mls @ 15.621 mls/hr IV .[id number] [facility]; Protocol Last Admin: 02/25/21 09:10 Dose: Not Given Documented by: Amiodarone HCl 450 mg/ (Dextrose/Water) 250 mls @ 16.667 mls/hr IV .Q15H [facility]; Protocol Stop: 02/26/21 09:44 Last Admin: 02/25/21 16:45 Dose: 0.5 mg/min, 16.667 mls/hr Documented by: Insulin Aspart (Insulin Aspart (Novolog) 100 Unit/Ml Vial) 0 unit SQ Q6H [facility]; Protocol Last Admin: 02/25/21 14:25 Dose: 5 unit Documented by: Latanoprost (Latanoprost 0.005% Ophth Drops 2.5 Ml Btl) 1 drops BOTH EYES HS@2000 [facility] Last Admin: 02/24/21 20:36 Dose: 1 drops Documented by: Levothyroxine Sodium (Levothyroxine 112 Mcg Tab) 112 mcg OG-TUBE HS [facility] Last Admin: 02/25/21 01:55 Dose: Not Given Documented by: Losartan Potassium (Losartan 50 Mg Tab) 100 mg PO DAILY [facility] Last Admin: 02/25/21 09:20 Dose: Not Given Documented by: Methylprednisolone Sodium Succinate (Methylprednisolone Sod Succi 40 Mg/Ml 1 Ml Vial) 40 mg IV Q8HR [facility] Last Admin: 02/25/21 17:19 Dose: 40 mg Documented by: Metoprolol Tartrate (Metoprolol Tartrate 5 Mg/5 Ml Vial) 5 mg IVP TID [facility] Last Admin: 02/25/21 14:49 Dose: 5 mg Documented by: Miscellaneous Information (Potassium Replacement Protocol 1 Each Misc) 1 each MISCELLANE DAILY PRN; Protocol PRN Reason: Per Protocol Miscellaneous Information (Magnesium Replacement Protocol 1 Each Misc) 1 each MISCELLANE DAILY PRN; Protocol PRN Reason: Per Protocol Miscellaneous Information (Potassium Replacement Protocol 1 Each Misc) 1 each MISCELLANE DAILY PRN; Protocol PRN Reason: Per Protocol Morphine Sulfate (Morphine Sulfate 4 Mg/Ml Syringe) 3 mg IV Q2HR PRN PRN Reason: Pain Scale 6 to 7 Naloxone HCl (Naloxone 0.4 Mg/Ml 1 Ml Vial) 0.2 mg IV Q2M PRN PRN Reason: Opioid Reversal Ropinirole HCl (Ropinirole Hcl 1 Mg Tab) 2 mg PO HS [facility] Last Admin: 02/25/21 01:56 Dose: Not Given Documented by: Senna/Docusate Sodium (Sennosides-Docusate Sodium 1 Each Tab) 1 each PO DAILY [facility] Last Admin: 02/25/21 09:20 Dose: Not Given Documented by: Sodium Chloride (Sodium Chloride 0.9% Flush 10 Ml Syringe) 10 ml IV Q4HR PRN PRN Reason: PICC Line Sodium Chloride (Sodium Chloride 0.9% Flush 10 Ml Syringe) 10 ml IV WEEKLY [facility] Sodium Chloride (Sodium Chloride 0.9% Flush 10 Ml Syringe) 20 ml IV Q4HR PRN PRN Reason: PICC Line Past medical history: Right adnexa growth being followed as an outpatient, COPD, paroxysmal atrial fibrillation, hypertension, hyperlipidemia, COPD, GERD, primary osteoarthritis, colon cancer in 2001, secondary pulmonary hypertension, hypothyroid, rosacea, urinary stress incontinence, osteoarthritis chronic diverticulosis, gastritis duodenitis, colon cancer treated with surgery chemoradiation, home oxygen 2 L, chronic kidney disease stage III, stroke with some speech impairment, hypothyroid,chronic congestive heart failure from diastolic dysfunction EF 55- 60%, severe mitral regurgitation, moderate mitral stenosis, moderate tricuspid regurgitation., chronic thrombocytopenia Social history: At [employer] [facility] [place] Smoked for 20 years, stopped in 1986, smoked a pack and half Physical examination: VITAL SIGNS: 98.7, 73,'s 20, 149 with 82, 99% on 4 L GENERAL: Sitting up in a chair, awake, tired, sounding chesty EYES: Pupils equal. Conjunctiva normal HEENT: External appearance of nose and ears normal, oral cavity dry NECK: JVD unable to assess; masses not palpable. HEART: First and second heart sounds are normal; edema present LUNGS: Respiratory rate increased, decreased breaths, some coarse crackles ABDOMEN: Soft, nontender, liver spleen not palpable, no masses palpable. PSYCH: Unable to assess. EXTREMITIES: Missing right hand fingers, except thumb INVESTIGATIONS, reviewed in the clinical context: February 25: WBC 11.9 hemoglobin 9 platelets 86 potassium 3.8 creatinine 1.26 February 24: Potassium 4.6 creatinine 1.17 February 23: WBC 6.7 hemoglobin 8.9 platelets 71 potassium 3.3 creatinine 1.24 February 22: WBC 7.5 hemoglobin 7.8 platelets 85 potassium 3.6 bun 30 creatinine 1.14 February 21: WBC 9.3 hemoglobin 8.4 platelets 88 potassium 3.8 creatinine 0.89 TSH 0.14 T4 3 0.61 February 20: WBC 8.4 hemoglobin 8.5 platelets 74 February 19: WBC 12 hemoglobin 7.4 platelets 122 potassium 3.2 creatinine 1.03 Computed tomography scan of the chest: Negative for PE. Extensive pulmonary airspace consolidation with bilateral pleural effusions. WBC 16.1 hemoglobin 7.9 platelets 176 d-dimer 4.86 ABG pH 7.4 pCO2 38 pO2 208 potassium 4 bun 27 creatinine 1.19 Lactic acid 5.7 and repeat 2.2 proBNP 2900 procalcitonin 0.04 UA showing 1+ protein Coronavirus [PCR] not detected EKG tracing personally reviewed by me-sinus rhythm, left bundle-branch block Chest x-ray film personally reviewed by me-bilateral extensive pulmonary infiltrates assessment: -bilateral suspected gram-negative pneumonia. IV Zosyn. -Acute hypoxic respiratory failure, secondary to pneumonia patient went into respiratory some improvement On ventilator support. Extubated February 24. Currently on 4 L nasal cannula -Acute on chronic congestive heart failure exacerbation, from diastolic dysfunction EF 55-60%,-euvolemic Did receive IV Lasix -Acute COPD exacerbation in an [id number] to respond bronchodilators, IV steroids, -Severe mitral regurgitation, moderate mitral stenosis, moderate tricuspid regurgitation Follow clinically -Secondary moderate pulmonary hypertension from COPD and CHF Follow clinically -Essential hypertension- continue beta amara. Amlodipine added -GERD- use PPI -Primary osteoarthritis- use analgesics when necessary -Hypothyroid- continue Synthroid -Chronic urinary stress incontinence- Doll catheter -Chronic diverticulosis- Follow clinically -Chronic gait dysfunction uses walker -Left bundle-branch block, chronic Telemetry -Paroxysmal atrial fibrillation, currently sinus rhythm. -New-onset of thrombocytopenia. Platelet count above 50. Consult hematology -Metabolic alkalosis likely from volume contraction Add Diamox. Hold of IV Lasix temporarily. -Acute kidney injury likely prerenal from diuresis Gentle diuresis overnight for a total of 500 mL. -Acute metabolic encephalopathy multifactorial Follow closely Continue current medication treatment plan. Oral cavity toilet.
[2021-02-25 17:37] LABS: Glucose,Whole Blood 118 mg/dL (75-99)
[2021-02-25] MEDS: LATANOPROST 0.005% OPHTH DROPS 2.5 ML BTL BOTH EYES SCH (21:28)
[2021-02-25 23:57] LABS: Glucose,Whole Blood 163 mg/dL (75-99)
[2021-02-26] MEDS: INSULIN ASPART (NovoLOG) 100 UNIT/ML VIAL SQ SCH ×4 (00:03→18:06)
[2021-02-26] MEDS: PIPERACILLIN-TAZOBACTAM 3.375 GM in SODIUM CHLORIDE 0.9% 100 ML IVPB SCH ×3 (01:30→16:39)
[2021-02-26] MEDS: methylPREDNISolone SOD SUCCI 40 MG/ML 1 ML VIAL IV SCH ×3 (01:31→16:39)
[2021-02-26] MEDS: NOREPINEPHRINE 4 MG in SODIUM CHLORIDE 0.9% 250 ML IV SCH ×2 (01:32→16:35)
[2021-02-26 03:50] LABS: HCT 28.2 % (34.0-46.0); HGB 8.4 gm/dL (11.4-16.0); Hypochromasia Marked; MCH 28.4 pg (25.0-35.0); MCHC 29.8 g/dL (31.0-37.0); MCV 95.3 fL (80.0-100.0); Mean Platelet Volume 9.9; Poikilocytosis Slight; RBC 2.96 m/uL (3.80-5.40); RDW 15.3 % (11.5-15.5); WBC 11.6 k/uL (3.8-10.6)
[2021-02-26 03:58] LABS: Calcium 9.5 mg/dL (8.4-10.2)
[2021-02-26 04:32] LABS: Platelet Count 78 k/uL (150-450)
--- NOTE | 2021-02-26 06:08 | XR ---
EXAMINATION TYPE: XR chest 1V portable DATE OF EXAM: 02/26/2021 CLINICAL HISTORY: Difficulty breathing progress study. TECHNIQUE: Single AP portable upright view of the chest is obtained. COMPARISON: Chest x-ray from one day earlier and older studies. FINDINGS: Stable left-sided PICC line. Osseous structures remain demineralized. Old malunion fracture left proximal humerus redemonstrated. Cardiac silhouette size is stable and mildly enlarged with atherosclerotic and ectatic thoracic aorta . Persistent bilateral multifocal opacities on background chronic parenchymal changes with small to t iny bilateral pleural effusions. IMPRESSION: Persistent bilateral multifocal reticular opacities consistent with covid-19 infection. N o significant change from one day earlier.
[2021-02-26 06:35] LABS: Glucose,Whole Blood 106 mg/dL (75-99)
[2021-02-26] MEDS: AMIODARONE 450 MG in DEXTROSE 5% IN WATER 250 ML IV SCH ×6 (08:20→21:23)
[2021-02-26] MEDS: METOPROLOL TARTRATE 5 MG/5 ML VIAL IVP SCH ×3 (08:45→21:19)
[2021-02-26] MEDS ORDERED: FAMOTIDINE 20 MG/2 ML VIAL IV SCH (09:00)
--- NOTE | 2021-02-26 09:22 | PN ---
PROGRESS NOTE Mrs. Lopez is an 85-year-old female with history of paroxysmal fibrillation, history of multivalvular disease, who presented with significant respiratory distress requiring mechanical ventilation. She has been extubated. Yesterday she had episode of paroxysmal fibrillation. She is back in sinus mechanism. She is on IV amiodarone. She is not able to swallow. She is following commands but has not been verbal. Her baseline is not available to me. Her blood pressure has been slightly on the higher side. There is no ventricular ectopic activity. Her urine output has been stable. She continued to be on IV amiodarone, insulin, metoprolol tartrate 50 mg IV Q 8 hours. PHYSICAL EXAMINATION: Heart rate running in the 70s. Blood pressure running in the 140s and 150s. LUNGS: Clear anteriorly. HEART: Regular rhythm S1, S2. No S3 with a holosystolic murmur in the apex. No diastolic murmur. No rub. ABDOMEN: Soft, nontender, positive bowel sounds. EXTREMITIES: No significant edema. LAB DATA: BUN and creatinine of 26 and 1.08. Hemoglobin 8.4. IMPRESSION: 1. Status post respiratory failure requiring mechanical ventilation, multifactorial. 2. Significant mitral and tricuspid valve disease. 3. Paroxysmal atrial fibrillation. 4. Chronic kidney disease, stable. 5. Anemia. 6. History of chronic obstructive lung disease. RECOMMENDATION: I will initiate IV heparin because of the atrial fibrillation in the paroxysmal pattern of it. At this time, she continues to be off the Cozaar orally because she is not able to swallow. I will add to her regimen nitroglycerin paste to help with her blood pressure. We will continue on the IV amiodarone. Continue to follow her hemoglobin. Will await the input of her primary team regarding her baseline status, regarding if her mental status is baseline and her speech. MMODL / IJN: [id number] /
[2021-02-26] MEDS: IPRATROPIUM-ALBUTEROL 3 ML NEB INHALATION SCH ×4 (09:41→20:53)
[2021-02-26 10:29] LABS: Basophils # (A) 0.1 k/uL (0-0.2); Basophils % (A) 0 %; Eosinophils % (A) 0 %; HCT 28.6 % (34.0-46.0); HGB 8.4 gm/dL (11.4-16.0); Hypochromasia Marked; Lymphocytes % (A) 7 %; MCH 27.6 pg (25.0-35.0); MCHC 29.3 g/dL (31.0-37.0); MCV 94.2 fL (80.0-100.0); Mean Platelet Volume 10.3; Monocytes # (A) 0.9 k/uL (0-1.0); Monocytes % (A) 7 %; Neutrophils # (A) 10.8 k/uL (1.3-7.7); Neutrophils % (A) 84 %; Poikilocytosis Slight; RBC 3.03 m/uL (3.80-5.40); RDW 15.5 % (11.5-15.5); WBC 12.8 k/uL (3.8-10.6)
[2021-02-26 10:32] LABS: Platelet Count 78 k/uL (150-450)
[2021-02-26] MEDS: acetaZOLAMIDE 250 MG TAB PO SCH ×2 (10:39→20:05)
[2021-02-26] MEDS: DOXYCYCLINE 100 MG CAP PO SCH ×2 (10:40→20:05)
[2021-02-26] MEDS: SENNOSIDES-DOCUSATE SODIUM 1 EACH TAB PO SCH (10:40)
[2021-02-26 10:42] LABS: INR 1.2 (<1.2)
--- NOTE | 2021-02-26 10:48 | P.PN ---
Subjective Progress Note Date: 02/26/21 Principal diagnosis: Acute hypoxic respiratory failure Bilateral pneumonia Sepsis Chronic kidney disease Altered mental status due to sepsis and pneumonia Baseline history of chronic atrial fibrillation heart failure Testing covid 19 has been negative 02/26/2021, patient seen eval examined during the rounds labs reviewed medications reviewed care plan discussed the staff at length, patient on the nebulizer treatment otherwise she is on 4 L, patient has been up on the chair most of the day yesterday and at nighttime now on bed, paradoxical respiration appeared to be more pronounced and prominent supine, patient remains nothing by mouth as she has been risk for aspiration, speech and swallow has been following, chest x-ray continued to show bilateral radicular opacities, no significant changes present, covert 19 testing has been negative, 02/25/2021, patient seen eval examined during the rounds labs reviewed medications reviewed care plan discussed with the staff at length patient is awake and alert, follows simple commands but has mild shortness of breath pa tient went into runs of A. fib with RVR, Cardizem has been started by cardiovascular services, for anticoagulation will resume Lovenox as platelet count is better and improved, her last PT OT to evaluate patient, patient remains nothing by mouth due to weak swallowing functions, patient remains on h eparin for intermittent proximal atrial fibrillation 02/24/2021, patient seen and evaluated examined care plan discussed with the staff as well as the respiratory at length critical care time spent 35 minutes, patient was placed on CPAP of 5 pressure support and gradually titrated down to CPAP 5 and pressure support of 5, weaning parameters and arterial blood gases reviewed patient does well, proceed with extubation successfully done on 4 L oxygen slide wheezing is present we'll continue steroids breathing treatments and antibiotics, patient is not ready for oral we'll change to oral metaprot erenol to IV, patient has intermittent runs of the A. fib with RVR, due to thrombocytopenia lobe in next is being held at this point of time 02/23/2021, patient seen eval examined during the rounds labs reviewed medications reviewed care plan discussed, patient remains on full ventilator support, discussed with RN and respiratory therapist patient likely has very small airway limiting air leak from the site of the ET tube, patient did well with CPAP and pressure support, would recommend to taper and DC the propofol drip do a CPAP and pressure support of trial started with CPAP 5 and pressure support of 10 and subsequently 5 and 5 and then obtain a blood gas and weaning parameters if patient does well and remains awake and alert will proceed with extubation him a chest x-ray reviewed as stable, reviewed potassium is 3.3 on potassium replacement protocol 02/22/2021, patient seen eval examined during the rounds labs reviewed medications reviewed patient remains on propofol, CPAP pressure support trial performed yesterday have been unsuccessful they were done on 5 of CPAP and pressure support of 5, we will stop the propofol today and developed pressure support trial of 10 with CPAP of 5 and 40% oxygen if tolerated well consider taking the tube out, he remains afebrile hemodynamically stable and stable oxygen saturation into mid 90s, labs are reviewed pH is 755 pCO2 29. 103, BUN/ creatinine slightly up likely related to diuresis, 02/21/2021, patient seen eval examined during the rounds labs reviewed medications reviewed care plan discussed with the staff at length, patient is been down to 40% oxygen, been setting remains stable, propofol has been tapered to 15 mics now, patient is arousable, discussed with the respiratory therapist and nurse patient to go on CPAP pressure support. All drips stop the tube feed as well, will do weaning parameters, blood cultures have been negative, medications reviewed, chest x-ray stable ET tube slightly at the level of justo bilateral infiltrates are noted, noted respiratory alkalosis would recommend to do CPAP pressure support trial patient will automatically corrected 02/20/2021, patient seen eval examined during the rounds labs reviewed medications reviewed, patient is currently off of levo fed drip, euvolemic status appears to be present, however ventilator setting continued to have high FiO2 currently patient is on 60% oxygen over next 24 hours will try to wean down the oxygen, patient remains on broad-spectrum antibiotics no fever has been seen, urine output has been adequate, but patient has been replaced, radiog raphic studies labs reviewed care plan discussed with staff at length if patient is down to 40% and we will do a CPAP pressure support trial tomorrow morning, 2 feet can be initiated, 02/19/2021, patient seen eval examined during the rounds labs reviewed medications reviewed care plan discussed with the staff at length, patient remains on low dose of levo fed, unable to stop it as earlier this morning we stopped it but blood pressure dropped down requiring a reinitiation of levo fed, will require fluid bolus of the crystalloids 500 mL over 2 hours will be given, patient remains on full ventilator support currently patient is on FiO2 of 60%, with assist control rate of 20, tidal volume is 450, PEEP is 5, given hypotension cannot escalate the PEEP, first we'll try to taper off the levo fed then will taper the oxygen down by increasing PEEP, but cultures no growth so far, chest x-ray bilateral upper and mid lung field predominantly on the right side pneumonia stable ET tube, WBC have been lowered down to 12,000, arterial blood gas stable pO2 is 89, rash M is 3.2 BUN/creatinine improved to 20 and 1.03, currently patient is sedated with propofol drip, patient has a history of significant A. fib with RVR as well as moderate to severe mitral regurgitation, Patient is a 85-year-old [facility] resident brought into emergency department intubated on the field by EMS, she was having respiratory difficulties with argon of respiration, review of the records revealed that patient has a si gnificant history of mood disorder depression hypertension and hypothyroidism, she has prior medical problems significant for atrial fibrillation not on any anticoagulation COPD heart failure dyslipidemia hypertension hypertensive cardiovascular disease and history of pulmonary hypertension history of stroke chronic kidney disease stage III, she used to smoke however stopped smoking several years ago, currently patient is on full ventilator support assist control of 20 breathing 20, PEEP of 5, 50% oxygen, tidal volume is 450, patient is on propofol 30 mics, hemodynamic status is stable patient is on levo fed 0.025, blood pressure is improved to 159/61, heart rate 63 saturation is 98%, EKG revealed left bundle-branch block, labs are significant for leukocytosis with WBC count is 16,000, hemoglobin and hematocrit 7.9 and 25, platelet count is 1 76,000, d-dimer is 4.86, lactic acid is up to 5.7 now came down to 2.2, subsequent 1 is 1.2, BUN/creatinine 27 1.19, coated 19 is negative, patient has received a dose of Lovenox and Zosyn and fluid boluses 1.5 L Objective - Vital Signs Vital signs: Vital Signs Temp 97.5 F L 02/26/21 08:00 Pulse 83 02/26/21 10:00 Resp 18 02/26/21 10:00 BP 143/68 02/26/21 10:00 Pulse Ox 92 L 02/26/21 10:00 Intake & Output 02/25/21 02/26/21 02/26/21 18:59 06:59 18:59 Intake Total 320 130 290 Output Total 1035 650 170 Balance -715 -520 120 Intake: IV 320 130 40 0.9ns @ kvo 120 130 40 Piperacillin-Tazobactam 3 200 .375 gm In Sodium Chloride 0.9% 100 ml @ 25 mls/hr IVPB Q8HR [facility] Rx# :[id number] Intake, IV Titration 250 Amount Amiodarone 450 mg In 250 Dextrose 5% in Water 250 ml @ 0.5 MG/MIN 16.667 mls/hr IV .Q15H [facility] Rx#: [id number] Output: Urine 1035 650 170 Other: Voiding Method Indwelling Catheter Indwelling Catheter - Exam - Constitutional General appearance: average body habitus, disheveled, - EENT Eyes: PERRLA Ears: bilateral: normal - Neck Neck: lymphadenopathy Carotids: bilateral: upstroke normal - Respiratory Respiratory: bilateral: diminished - Cardiovascular Rhythm: regular Heart sounds: normal: S1, S2 - Gastrointestinal General gastrointestinal: decreased bowel sounds, distended, soft - Neurologic open eyes follow simple commands moving all 4 extremity - Labs CBC & Chem 7: 02/26/21 09:30 02/26/21 03:15 Labs: Abnormal Lab Results - Last 24 Hours (Table) 02/25/21 02/25/21 02/25/21 Range/Units 11:53 17:35 23:56 WBC (3.8-10.6) k/uL RBC (3.80-5.40) m/uL Hgb (11.4-16.0) gm/dL Hct (34.0-46.0) % MCHC (31.0-37.0) g/dL Plt Count (150-450) k/uL Neutrophils # (1.3-7.7) k/uL Chloride (98-107) mmol/L Carbon Dioxide (22-30) mmol/L BUN (7-17) mg/dL Creatinine (0.52-1.04) mg/dL Glucose (74-99) mg/dL POC Glucose (mg/dL) 187 H 118 H 163 H (75-99) mg/dL 02/26/21 02/26/21 02/26/21 Range/Units 03:15 03:15 06:33 WBC 11.6 H (3.8-10.6) k/uL RBC 2.96 L (3.80-5.40) m/uL Hgb 8.4 L (11.4-16.0) gm/dL Hct 28.2 L (34.0-46.0) % MCHC 29.8 L (31.0-37.0) g/dL Plt Count 78 L (150-450) k/uL Neutrophils # (1.3-7.7) k/uL Chloride 113 H (98-107) mmol/L Carbon Dioxide 19 L (22-30) mmol/L BUN 26 H (7-17) mg/dL Creatinine 1.08 H (0.52-1.04) mg/dL Glucose 108 H (74-99) mg/dL POC Glucose (mg/dL) 106 H (75-99) mg/dL 02/26/21 Range/Units 09:30 WBC 12.8 H (3.8-10.6) k/uL RBC 3.03 L (3.80-5.40) m/uL Hgb 8.4 L (11.4-16.0) gm/dL Hct 28.6 L (34.0-46.0) % MCHC 29.3 L (31.0-37.0) g/dL Plt Count 78 L (150-450) k/uL Neutrophils # 10.8 H (1.3-7.7) k/uL Chloride (98-107) mmol/L Carbon Dioxide (22-30) mmol/L BUN (7-17) mg/dL Creatinine (0.52-1.04) mg/dL Glucose (74-99) mg/dL POC Glucose (mg/dL) (75-99) mg/dL Assessment and Plan Assessment: Thrombocytopenia Unstable upper airway patient being kept nothing by mouth for risk of aspiration Paradoxical respiration especially in supine posture Acute hypoxic respiratory failure Bilateral pneumonia hypokalemia Sepsis thrombocytopenia A. fib with RVR Chronic kidney disease Valvular heart disease with mitral regurgitation Altered mental status due to sepsis and pneumonia Baseline history of chronic atrial fibrillation heart failure Testing covidr 19 has been negative Plan: Place potassium as per protocol Keep nothing by mouth until he gets more definitive recommendation from speech and swallow Continue IV heparin for paroxysmal atrial fibrillation Monitor and observe platelet closely Echocardiogram results reviewed ejection fraction is 60%,, with mild to moderate aortic stenosis, severe pulmonary hypertension was noted right ventricle systolic pressure estimated to be 76, Broad-spectrum antibiotics Bronchodilators IV steroids Follow-up on Rodriguez cultures Further plan of care and recommendation as per clinical response of the patient was asked PT OT to evaluate Time with Patient: Greater than 30
[2021-02-26 10:49] LABS: Partial Thromboplastin Time 19.4 sec (22.0-30.0)
[2021-02-26] MEDS: HEPARIN SOD,PORK IN 0.45% NACL 25,000 UNIT in 0.45% NACL 1 250ML.BAG IV SCH (11:09)
[2021-02-26] MEDS: NITROGLYCERIN OINT 1 INCH/GM PACKET TOPICAL SCH ×2 (11:09→16:39)
[2021-02-26 12:03] LABS: Glucose,Whole Blood 82 mg/dL (75-99)
--- NOTE | 2021-02-26 16:24 | P.PN ---
Subjective Progress Note Date: 02/24/21 Objective - Vital Signs Vital signs: Vital Signs Temp 99 F 02/24/21 04:00 Pulse 64 02/24/21 06:00 Resp 14 02/24/21 06:00 BP 114/39 02/24/21 06:00 Pulse Ox 100 02/24/21 03:00 Intake & Output 02/23/21 02/24/21 02/24/21 18:59 06:59 18:59 Intake Total 748.407 620 Output Total 665 430 Balance 83.407 190 Weight 53.6 kg Intake: IV 310 120 0.9ns @ kvo 110 120 Piperacillin-Tazobactam 3 200 .375 gm In Sodium Chloride 0.9% 100 ml @ 25 mls/hr IVPB Q8HR [facility] Rx# :[id number] Intake, IV Titration 231.407 Amount propofoL 1,000 mg In 231.407 Empty Bag 1 bag @ Titrate IV .Q0M [facility] Rx#: [id number] Tube Feeding 147 410 Other 60 90 Output: Urine 665 430 Other: Voiding Method Indwelling Catheter Indwelling Catheter - Exam - Constitutional General appearance: average body habitus, disheveled, successfully weaned and extubated - EENT Eyes: PERRLA Ears: bilateral: normal - Neck Neck: lymphadenopathy Carotids: bilateral: upstroke normal - Respiratory Respiratory: bilateral: diminished - Cardiovascular Rhythm: regular Heart sounds: normal: S1, S2 - Gastrointestinal General gastrointestinal: decreased bowel sounds, distended, soft - Neurologic open eyes follow simple commands moving all 4 extremity - Labs CBC & Chem 7: 02/26/21 09:30 02/26/21 03:15 Labs: Abnormal Lab Results - Last 24 Hours (Table) 02/21/21 02/23/21 02/23/21 Range/Units 11:38 11:17 17:30 RBC (3.80-5.40) m/uL Hgb (11.4-16.0) gm/dL Hct (34.0-46.0) % Plt Count (150-450) k/uL ABG pO2 (83-108) mmHg ABG O2 Saturation (94-97) % Chloride (98-107) mmol/L Carbon Dioxide (22-30) mmol/L BUN (7-17) mg/dL Creatinine (0.52-1.04) mg/dL Glucose (74-99) mg/dL POC Glucose (mg/dL) 181 H 149 H (75-99) mg/dL Methylmalonic Acid 0.48 H (<0.40) umol/L 02/23/21 02/24/21 02/24/21 Range/Units 23:51 04:48 04:48 RBC 2.68 L (3.80-5.40) m/uL Hgb 8.0 L (11.4-16.0) gm/dL Hct 25.0 L (34.0-46.0) % Plt Count 67 L (150-450) k/uL ABG pO2 (83-108) mmHg ABG O2 Saturation (94-97) % Chloride 110 H (98-107) mmol/L Carbon Dioxide 21 L (22-30) mmol/L BUN 28 H (7-17) mg/dL Creatinine 1.17 H (0.52-1.04) mg/dL Glucose 147 H (74-99) mg/dL POC Glucose (mg/dL) 168 H (75-99) mg/dL Methylmalonic Acid (<0.40) umol/L 02/24/21 02/24/21 Range/Units 05:29 05:43 RBC (3.80-5.40) m/uL Hgb (11.4-16.0) gm/dL Hct (34.0-46.0) % Plt Count (150-450) k/uL ABG pO2 118 H (83-108) mmHg ABG O2 Saturation 99.4 H (94-97) % Chloride (98-107) mmol/L Carbon Dioxide (22-30) mmol/L BUN (7-17) mg/dL Creatinine (0.52-1.04) mg/dL Glucose (74-99) mg/dL POC Glucose (mg/dL) 166 H (75-99) mg/dL Methylmalonic Acid (<0.40) umol/L Microbiology - Last 24 Hours (Table) 02/18/21 03:30 Blood Culture - Preliminary Blood No Growth after 120 hours 02/18/21 03:40 Blood Culture - Preliminary Blood No Growth after 120 hours Assessment and Plan Plan: Assessment and Plan (1) Bicytopenia Anemia and Labile Thrombocytopenia noted as far back as 2016. You can see where patient's counts have decreased during episodes of illness/admissions. Cytopenia workup has been ordered as no history of hematological work up in this medical record. Also, HIT antibody has been ordered, still pending. High [place]/lambda with normal ratio Protein peak noted, 0.20g/dl, pending immunofixation Transfuse to keep hemoglobin 7 or higher unless symptomatic. Hgb 8.9 today Transfuse to keep platelets greater than 10,000 unless bleeding, no evidence of bleeding today. With infection, platelets typically above 20K and 30,000 or more preferred. Again, always monitoring for symptoms.
[2021-02-26 18:02] LABS: Glucose,Whole Blood 100 mg/dL (75-99)
[2021-02-26] MEDS: HEPARIN SODIUM 1,000 UN/ML (10ML VL) IV PRN (18:54)
[2021-02-26] MEDS: LEVOTHYROXINE 112 MCG TAB OG-TUBE SCH (20:05)
--- NOTE | 2021-02-26 20:08 | P.PN ---
Progress Note - Text Progress Note Date: 02/26/21 Chief Complaint: Short of breath history of present complaint: This is a very pleasant 85-year-old patient of Dr. Maya. Currently at [facility]. Chronic stable medical conditions include COPD, paroxysmal atrial fibrillation, hypertension, hyperlipidemia, GERD, osteoarthritis, secondary pulmonary hypertension, hypothyroid, rosacea, osteoarthritis, urine stress incontinence,CHF from diastolic dysfunction EF 55- 60%, severe mitral regurgitation, moderate mitral stenosis, moderate tricuspid regurgitation, secondary pulmonary hypertension. Diverticulosis. at her baseline uses a cane and a walker. EMS was called out as patient had been lethargic all day. Patient is complaining that she is not feeling well. One hour prior to the EMS arrival patient became increasingly short of breath. Patient at baseline is 3 L of nasal cannula. And patient became less responsive and breathing worsen. 4 days ago patient had a negative COVID testing. When EMS arrived patient's found to have agonal respiration. Telemetry showed sinus rhythm. Patient is intubated. This afternoon patient has FiO2 15 of PEEP of 5. Drips included propofol and norepinephrine. Telemetry shows sinus rhythm. Admitted with bilateral pneumonia, acute respiratory arrest on ventilator support. Started on IV Zosyn, Levothroid, propofol, IV Solu-Medrol, bronchodilators. Extubated February 24 Today: ICU. Laying in bed, awake. Tired. Not able to swallow. On 4 L of nasa l cannula. On IV heparin and IV amiodarone. Review of systems: Patient unable to vocalize Active Medications Acetaminophen (Acetaminophen Suppository 650 Mg Supp) 650 mg RECTAL Q4HR PRN PRN Reason: Fever And/ Or Mild Pain Acetaminophen (Acetaminophen Tab 325 Mg Tab) 650 mg PO Q4HR PRN PRN Reason: Fever and/or Mild Pain Acetazolamide (Acetazolamide 250 Mg Tab) 250 mg PO BID [facility] Last Admin: 02/26/21 10:39 Dose: Not Given Documented by: Albuterol/Ipratropium (Ipratropium-Albuterol 3 Ml Neb) 3 ml INHALATION RT-QID [facility] Last Admin: 02/26/21 15:52 Dose: Not Given Documented by: Doxycycline Monohydrate (Doxycycline 100 Mg Cap) 100 mg PO BID [facility] Last Admin: 02/26/21 10:40 Dose: Not Given Documented by: Heparin Sodium (Porcine) (Heparin Sodium 1,000 Un/Ml (10ml Vl)) 0 unit IV PER PROTOCOL PRN; Protocol PRN Reason: Low PTT Last Admin: 02/26/21 18:54 Dose: 2,550 unit Documented by: Propofol 1,000 mg/ IV Solution 100 mls @ 0 mls/hr IV .Q0M [facility]; Protocol Last Titration: 02/23/21 15:10 Dose: 0 mcg/kg/min, 0 mls/hr Documented by: Piperacillin Sod/Tazobactam (Sod 3.375 gm/ Sodium Chloride) 100 mls @ 25 mls/hr IVPB Q8HR [facility] Last Admin: 02/26/21 16:39 Dose: 25 mls/hr Documented by: Heparin Sodium/Sodium Chloride (25,000 unit/ Sodium Chloride) 250 mls @ 6.12 mls/hr IV .Q24H ANGELA; Protocol Last Titration: 02/26/21 18:43 Dose: 15 units/kg/hr, 7.65 mls/hr Documented by: Amiodarone HCl 450 mg/ (Dextrose/Water) 250 mls @ 16.667 mls/hr IV .Q15H ANGELA; Protocol Last Admin: 02/26/21 11:29 Dose: Not Given Documented by: Insulin Aspart (Insulin Aspart (Novolog) 100 Unit/Ml Vial) 0 unit SQ Q6H ANGELA; Protocol Last Admin: 02/26/21 18:06 Dose: Not Given Documented by: Latanoprost (Latanoprost 0.005% Ophth Drops 2.5 Ml Btl) 1 drops BOTH EYES HS@2000 [facility] Last Admin: 02/25/21 21:28 Dose: 1 drops Documented by: Levothyroxine Sodium (Levothyroxine 112 Mcg Tab) 112 mcg OG-TUBE HS [facility] Last Admin: 02/25/21 21:22 Dose: Not Given Documented by: Methylprednisolone Sodium Succinate (Methylprednisolone Sod Succi 40 Mg/Ml 1 Ml Vial) 40 mg IV Q8HR [facility] Last Admin: 02/26/21 16:39 Dose: 40 mg Documented by: Metoprolol Tartrate (Metoprolol Tartrate 5 Mg/5 Ml Vial) 5 mg IVP TID [facility] Last Admin: 02/26/21 15:02 Dose: 5 mg Documented by: Miscellaneous Information (Potassium Replacement Protocol 1 Each Misc) 1 each MISCELLANE DAILY PRN; Protocol PRN Reason: Per Protocol Miscellaneous Information (Magnesium Replacement Protocol 1 Each Mis) 1 each MISCELLANE DAILY PRN; Protocol PRN Reason: Per Protocol Miscellaneous Information (Potassium Replacement Protocol 1 Each Misc) 1 each MISCELLANE DAILY PRN; Protocol PRN Reason: Per Protocol Morphine Sulfate (Morphine Sulfate 4 Mg/Ml Syringe) 3 mg IV Q2HR PRN PRN Reason: Pain Scale 6 to 7 Naloxone HCl (Naloxone 0.4 Mg/Ml 1 Ml Vial) 0.2 mg IV Q2M PRN PRN Reason: Opioid Reversal Nitroglycerin (Nitroglycerin Oint 1 Inch/Gm Packet) 1 inch TOPICAL Q8HR [facility] Last Admin: 02/26/21 16:39 Dose: 1 inch Documented by: Ropinirole HCl (Ropinirole Hcl 1 Mg Tab) 2 mg PO HS [facility] Last Admin: 02/25/21 21:22 Dose: Not Given Documented by: Senna/Docusate Sodium (Sennosides-Docusate Sodium 1 Each Tab) 1 each PO DAILY [facility] Last Admin: 02/26/21 10:40 Dose: Not Given Documented by: Sodium Chloride (Sodium Chloride 0.9% Flush 10 Ml Syringe) 10 ml IV Q4HR PRN PRN Reason: PICC Line Sodium Chloride (Sodium Chloride 0.9% Flush 10 Ml Syringe) 10 ml IV WEEKLY [facility] Sodium Chloride (Sodium Chloride 0.9% Flush 10 Ml Syringe) 20 ml IV Q4HR PRN PRN Reason: PICC Line Past medical history: Right adnexa growth being followed as an outpatient, COPD, paroxysmal atrial fibrillation, hypertension, hyperlipidemia, COPD, GERD, primary osteoarthritis, colon cancer in 2001, secondary pulmonary hypertension, hypothyroid, rosacea, urinary stress incontinence, osteoarthritis chronic diverticulosis, gastritis duodenitis, colon cancer treated with surgery chemoradiation, home oxygen 2 L, chronic kidney disease stage III, stroke with some speech impairment, hypothyroid,chronic congestive heart failure from diastolic dysfunction EF 55- 60%, severe mitral regurgitation, moderate mitral stenosis, moderate tricuspid regurgitation., chronic thrombocytopenia Social history: At [facility] [employer] [place] Smoked for 20 years, stopped in 1986, smoked a pack and half Physical examination: VITAL SIGNS: 97.5, 75, 19, 147/58, 93% on 3 L GENERAL: Laying in bed, awake, tired, sounding chesty EYES: Pupils equal. Conjunctiva normal HEENT: External appearance of nose and ears normal, oral cavity dry NECK: JVD unable to assess; masses not palpable. HEART: First and second heart sounds are normal; edema present LUNGS: Respiratory rate increased, decreased breaths, some coarse crackles ABDOMEN: Soft, nontender, liver spleen not palpable, no masses palpable. PSYCH: Unable to assess. EXTREMITIES: Missing right hand fingers, except thumb INVESTIGATIONS, reviewed in the clinical context: February 26: WBC 12.8 hemoglobin 8.4 potassium 4 creatinine 1.08 February 25: WBC 11.9 hemoglobin 9 platelets 86 potassium 3.8 creatinine 1.26 February 24: Potassium 4.6 creatinine 1.17 February 23: WBC 6.7 hemoglobin 8.9 platelets 71 potassium 3.3 creatinine 1.24 February 22: WBC 7.5 hemoglobin 7.8 platelets 85 potassium 3.6 bun 30 creatinine 1.14 February 21: WBC 9.3 hemoglobin 8.4 platelets 88 potassium 3.8 creatinine 0.89 TSH 0.14 T4 3 0.61 February 20: WBC 8.4 hemoglobin 8.5 platelets 74 February 19: WBC 12 hemoglobin 7.4 platelets 122 potassium 3.2 creatinine 1.03 Computed tomography scan of the chest: Negative for PE. Extensive pulmonary airspace consolidation with bilateral pleural effusions. WBC 16.1 hemoglobin 7.9 platelets 176 d-dimer 4.86 ABG pH 7.4 pCO2 38 pO2 208 potassium 4 bun 27 creatinine 1.19 Lactic acid 5.7 and repeat 2.2 proBNP 2900 procalcitonin 0.04 UA showing 1+ protein Coronavirus [PCR] not detected EKG tracing personally reviewed by me-sinus rhythm, left bundle-branch block Chest x-ray film personally reviewed by me-bilateral extensive pulmonary infiltrates assessment: -bilateral suspected gram-negative pneumonia. IV Zosyn. -Acute hypoxic respiratory failure, secondary to pneumonia patient went into respiratory some improvement On ventilator support. Extubated February 24. Currently on 4 L nasal cannula -Acute on chronic congestive heart failure exacerbation, from diastolic dysfunction EF 55-60%,-euvolemic Did receive IV Lasix -Acute COPD exacerbation in an [id number] to respond bronchodilators, IV steroids, -Severe mitral regurgitation, moderate mitral stenosis, moderate tricuspid regurgitation Follow clinically -Secondary moderate pulmonary hypertension from COPD and CHF Follow clinically -Essential hypertension- continue beta amara. Amlodipine added -GERD- use PPI -Primary osteoarthritis- use analgesics when necessary -Hypothyroid- continue Synthroid -Chronic urinary stress incontinence- Doll catheter -Chronic diverticulosis- Follow clinically -Chronic gait dysfunction uses walker -Left bundle-branch block, chronic Telemetry -Paroxysmal atrial fibrillation, currently sinus rhythm. -New-onset of thrombocytopenia. Platelet count above 50. Consult hematology -Metabolic alkalosis likely from volume contraction Add Diamox. Hold of IV Lasix temporarily. -Acute kidney injury likely prerenal from diuresis Receive fluids. Stable -Acute metabolic encephalopathy multifactorial Follow closely -Dysphagia following extubation Speech therapy consulted Follow with pulmonary and cardiology. Prognosis guarded.
[2021-02-26] MEDS: LATANOPROST 0.005% OPHTH DROPS 2.5 ML BTL BOTH EYES SCH (20:47)
[2021-02-27 00:05] LABS: Glucose,Whole Blood 198 mg/dL (75-99)
[2021-02-27] MEDS: methylPREDNISolone SOD SUCCI 40 MG/ML 1 ML VIAL IV SCH ×3 (00:21→15:00)
[2021-02-27] MEDS: NITROGLYCERIN OINT 1 INCH/GM PACKET TOPICAL SCH ×3 (00:22→15:05)
[2021-02-27] MEDS: INSULIN ASPART (NovoLOG) 100 UNIT/ML VIAL SQ SCH ×4 (00:22→18:00)
[2021-02-27] MEDS: PIPERACILLIN-TAZOBACTAM 3.375 GM in SODIUM CHLORIDE 0.9% 100 ML IVPB SCH ×3 (00:22→15:04)
[2021-02-27] MEDS: HEPARIN SODIUM 1,000 UN/ML (10ML VL) IV PRN (01:09)
[2021-02-27 05:58] LABS: Glucose,Whole Blood 174 mg/dL (75-99)
[2021-02-27] MEDS: IPRATROPIUM-ALBUTEROL 3 ML NEB INHALATION SCH ×4 (08:47→18:54)
[2021-02-27 08:54] LABS: Basophils % (A) 0 %; Eosinophils % (A) 0 %; HCT 27.5 % (34.0-46.0); HGB 8.1 gm/dL (11.4-16.0); Hypochromasia Marked; Lymphocytes # (A) 0.6 k/uL (1.0-4.8); Lymphocytes % (A) 7 %; MCH 27.4 pg (25.0-35.0); MCHC 29.5 g/dL (31.0-37.0); MCV 92.9 fL (80.0-100.0); Mean Platelet Volume 10.5; Monocytes # (A) 0.5 k/uL (0-1.0); Monocytes % (A) 5 %; Neutrophils # (A) 7.6 k/uL (1.3-7.7); Neutrophils % (A) 87 %; Poikilocytosis Slight; RBC 2.96 m/uL (3.80-5.40); RDW 15.4 % (11.5-15.5); WBC 8.7 k/uL (3.8-10.6)
[2021-02-27 09:02] LABS: Platelet Count 69 k/uL (150-450)
[2021-02-27 09:04] LABS: INR 1.2 (<1.2); Partial Thromboplastin Time 50.7 sec (22.0-30.0); Prothrombin Time 12.1 sec (9.0-12.0)
[2021-02-27] MEDS ORDERED: DILTIAZEM DRIP BOLUS FROM BAG 1 MG SOLN IV ONE (10:00)
[2021-02-27 10:06] LABS: Albumin 3.1 g/dL (3.5-5.0); Potassium 3.7 mmol/L (3.5-5.1); Total Bilirubin 1.3 mg/dL (0.2-1.3); Total Protein 5.7 g/dL (6.3-8.2)
[2021-02-27] MEDS: acetaZOLAMIDE 250 MG TAB PO SCH ×2 (11:00→20:31)
[2021-02-27] MEDS: DOXYCYCLINE 100 MG CAP PO SCH ×2 (11:00→20:31)
[2021-02-27] MEDS: SENNOSIDES-DOCUSATE SODIUM 1 EACH TAB PO SCH (11:00)
--- NOTE | 2021-02-27 11:15 | P.PN ---
Subjective Progress Note Date: 02/27/21 Principal diagnosis: Acute hypoxic respiratory failure Bilateral pneumonia Sepsis Chronic kidney disease Altered mental status due to sepsis and pneumonia Baseline history of chronic atrial fibrillation heart failure Testing covid 19 has been negative 02/27/2021, patient seen eval examined during the rounds care plan discussed with RN, patient to much better when sitting upright and during awake swallowing function is still marginal, formal swallowing evaluation are being conducted by speech therapist later on today, patient currently on 3 L nasal cannula, remains on heparin and Cardizem drip, she has been started on Cardizem drip yesterdaymy labs reviewed BUN/creatinine is 24.04, 02/26/2021, patient seen eval examined during the rounds labs reviewed medications reviewed care plan discussed the staff at length, patient on the nebulizer treatment otherwise she is on 4 L, patient has been up on the chair most of the day yesterday and at nighttime now on bed, paradoxical respiration appeared to be more pronounced and prominent supine, patient remains nothing by mouth as she has been risk for aspiration, speech and swallow has been following, chest x-ray continued to show bilateral radicular opacities, no significant changes present, covert 19 testing has been negative, 02/25/2021, patient seen eval examined during the rounds labs reviewed medications reviewed care plan discussed with the staff at length patient is awake and alert, follows simple commands but has mild shortness of breath patient went into runs of A. fib with RVR, Cardizem has been started by cardiovascular services, for anticoagulation will resume Lovenox as platelet count is better and improved, her last PT OT to evaluate patient, patient remains nothing by mouth due to weak swallowing functions, patient remains on heparin for intermittent proximal atrial fibrillation 02/24/2021, patient seen and evaluated examined care plan discussed with the staff as well as the respiratory at length critical care time spent 35 minutes, patient was placed on CPAP of 5 pressure support and gradually titrated down to CPAP 5 and pressure support of 5, weaning parameters and arterial blood gases reviewed patient does well, proceed with extubation successfully done on 4 L oxygen slide wheezing is present we'll continue steroids breathing treatments and antibiotics, patient is not ready for oral we'll change to oral metaproterenol to IV, patient has intermittent runs of the A. fib with RVR, due to thrombocytopenia lobe in next is being held at this point of time 02/23/2021, patient seen eval examined during the rounds labs reviewed medications reviewed care plan discussed, patient remains on full ventilator support, discussed with RN and respiratory therapist patient likely has very small airway limiting air leak from the site of the ET tube, patient did well with CPAP and pressure support, would recommend to taper and DC the propofol drip do a CPAP and pressure support of trial started with CPAP 5 and pressure support of 10 and subsequently 5 and 5 and then obtain a blood gas and weaning parameters if patient does well and remains awake and alert will proceed with ex tubation him a chest x-ray reviewed as stable, reviewed potassium is 3.3 on potassium replacement protocol 02/22/2021, patient seen eval examined during the rounds labs reviewed medications reviewed patient remains on propofol, CPAP pressure support trial performed yesterday have been unsuccessful they were done on 5 of CPAP and pressure support of 5, we will stop the propofol today and developed pressure support trial of 10 with CPAP of 5 and 40% oxygen if tolerated well consider taking the tube out, he remains afebrile hemodynamically stable and stable oxygen saturation into mid 90s, labs are reviewed pH is 755 pCO2 29. 103, BUN/creatinine slightly up likely related to diuresis, 02/21/2021, patient seen eval examined during the rounds labs reviewed medications reviewed care plan discussed with the staff at length, patient is been down to 40% oxygen, been setting remains stable, propofol has been tapered to 15 mics now, patient is arousable, discussed with the respiratory therapist and nurse patient to go on CPAP pressure support. All drips stop the tube feed as well, will do weaning parameters, blood cultures have been negative, medications reviewed, chest x-ray stable ET tube slightly at the level of justo bilateral infiltrates are noted, noted respiratory alkalosis would recommend to do CPAP pressure support trial patient will automatically corrected 02/20/2021, patient seen eval examined during the rounds labs reviewed medications reviewed, patient is currently off of levo fed drip, euvolemic status appears to be present, however ventilator setting continued to have high FiO2 currently patient is on 60% oxygen over next 24 hours will try to wean down the oxygen, patient remains on broad-spectrum antibiotics no fever has been seen, urine output has been adequate, but patient has been replaced, radiographic studies labs reviewed care plan discussed with staff at length if patient is down to 40% and we will do a CPAP pressure support trial tomorrow morning, 2 feet can be initiated, 02/19/2021, patient seen eval examined during the rounds labs reviewed [facility] reviewed care plan discussed with the staff at length, patient remains on low dose of levo fed, unable to stop it as earlier this morning we stopped it but blood pressure dropped down requiring a reinitiation of levo fed, will require fluid bolus of the crystalloids 500 mL over 2 hours will be given, patient remains on full ventilator support currently patient is on FiO2 of 60%, with assist control rate of 20, tidal volume is 450, PEEP is 5, given hypotension cannot escalate the PEEP, first we'll try to taper off the levo fed then will taper the oxygen down by increasing PEEP, but cultures no growth so far, chest x-ray bilateral upper and mid lung field predominantly on the right side pneumonia stable ET tube, WBC have been lowered down to 12,000, arterial blood gas stable pO2 is 89, rash M is 3.2 BUN/creatinine improved to 20 and 1.03, currently patient is sedated with propofol drip, patient has a history of significant A. fib with RVR as well as moderate to severe mitral regurgitation, Patient is a 85-year-old [facility] resident brought into emergency department intubated on the field by EMS, she was having respiratory difficulties with argon of respiration, review of the records revealed that patient has a significant history of mood disorder depression hypertension and hypothyroidism, she has prior medical problems significant for atrial fibrillation not on any an ticoagulation COPD heart failure dyslipidemia hypertension hypertensive cardiovascular disease and history of pulmonary hypertension history of stroke chronic kidney disease stage III, she used to smoke however stopped smoking several years ago, currently patient is on full ventilator support assist control of 20 breathing 20, PEEP of 5, 50% oxygen, tidal volume is 450, patient is on propofol 30 mics, hemodynamic status is stable patient is on levo fed 0.025, blood pressure is improved to 159/61, heart rate 63 saturation is 98%, EKG revealed left bundle-branch block, labs are significant for leukocytosis with WBC count is 16,000, hemoglobin and hematocrit 7.9 and 25, platelet count is 1 76,000, d-dimer is 4.86, lactic acid is up to 5.7 now came down to 2.2, subsequent 1 is 1.2, BUN/creatinine 27 1.19, coated 19 is negative, patient has received a dose of Lovenox and Zosyn and fluid boluses 1.5 L Objective - Vital Signs Vital signs: Vital Signs Temp 97.9 F 02/27/21 07:47 Pulse 125 H 02/27/21 08:59 Resp 22 02/27/21 07:47 BP 158/88 02/27/21 07:47 Pulse Ox 93 L 02/27/21 08:48 Intake & Output 02/26/21 02/27/21 02/27/21 18:59 06:59 18:59 Intake Total 548.809 48.832 0 Output Total 845 640 350 Balance -296.191 -591.168 -350 Weight 80 kg Intake: IV 100 0.9ns @ kvo 100 Intake, IV Titration 448.809 48.832 Amount Amiodarone 450 mg In 302.501 Dextrose 5% in Water 250 ml @ 0.5 MG/MIN 16.667 mls/hr IV .Q15H ANGELA Rx#: [id number] Heparin Sod,Pork in 0.45% 46.308 48.832 NaCl 25,000 unit In 0.45 % NaCl 1 250ml.bag @ 12 UNITS/KG/HR 6.12 mls/hr IV .Q24H ANGELA Rx#: [id number] Piperacillin-Tazobactam 3 100 .375 gm In Sodium Chloride 0.9% 100 ml @ 25 mls/hr IVPB Q8HR ANG[facility] Rx# :[id number] Oral 0 0 Output: Urine 845 640 350 Other: Voiding Method Indwelling Catheter Indwelling Catheter - Exam - Constitutional General appearance: average body habitus, disheveled, - EENT Eyes: PERRLA Ears: bilateral: normal - Neck Neck: lymphadenopathy Carotids: bilateral: upstroke normal - Respiratory Respiratory: bilateral: diminished - Cardiovascular Rhythm: regular Heart sounds: normal: S1, S2 - Gastrointestinal General gastrointestinal: decreased bowel sounds, distended, soft - Neurologic open eyes follow simple commands moving all 4 extremity - Labs CBC & Chem 7: 02/27/21 07:56 02/27/21 07:56 Labs: Abnormal Lab Results - Last 24 Hours (Table) 02/26/21 02/27/21 02/27/21 Range/Units 18:00 00:03 00:27 RBC (3.80-5.40) m/uL Hgb (11.4-16.0) gm/dL Hct (34.0-46.0) % MCHC (31.0-37.0) g/dL Plt Count (150-450) k/uL Lymphocytes # (1.0-4.8) k/uL PT (9.0-12.0) sec INR (<1.2) APTT 42.3 H (22.0-30.0) sec Chloride (98-107) mmol/L BUN (7-17) mg/dL Glucose (74-99) mg/dL POC Glucose (mg/dL) 100 H 198 H (75-99) mg/dL AST (14-36) U/L ALT (4-34) U/L Total Protein (6.3-8.2) g/dL Albumin (3.5-5.0) g/dL Stool Occult Blood (Negative) 02/27/21 02/27/21 02/27/21 Range/Units 05:30 05:57 07:56 RBC 2.96 L (3.80-5.40) m/uL Hgb 8.1 L (11.4-16.0) gm/dL Hct 27.5 L (34.0-46.0) % MCHC 29.5 L (31.0-37.0) g/dL Plt Count 69 L (150-450) k/uL Lymphocytes # 0.6 L (1.0-4.8) k/uL PT (9.0-12.0) sec INR (<1.2) APTT (22.0-30.0) sec Chloride (98-107) mmol/L BUN (7-17) mg/dL Glucose (74-99) mg/dL POC Glucose (mg/dL) 174 H (75-99) mg/dL AST (14-36) U/L ALT (4-34) U/L Total Protein (6.3-8.2) g/dL Albumin (3.5-5.0) g/dL Stool Occult Blood Positive H (Negative) 02/27/21 02/27/21 Range/Units 07:56 08:06 RBC (3.80-5.40) m/uL Hgb (11.4-16.0) gm/dL Hct (34.0-46.0) % MCHC (31.0-37.0) g/dL Plt Count (150-450) k/uL Lymphocytes # (1.0-4.8) k/uL PT 12.1 H (9.0-12.0) sec INR 1.2 H (<1.2) APTT 50.7 H (22.0-30.0) sec Chloride 115 H (98-107) mmol/L BUN 24 H (7-17) mg/dL Glucose 120 H (74-99) mg/dL POC Glucose (mg/dL) (75-99) mg/dL AST 37 H (14-36) U/L ALT 46 H (4-34) U/L Total Protein 5.7 L (6.3-8.2) g/dL Albumin 3.1 L (3.5-5.0) g/dL Stool Occult Blood (Negative) Assessment and Plan Assessment: Thrombocytopenia Unstable upper airway patient being kept nothing by mouth for risk of aspiration, formal swallow evaluation will be conducted by speech therapist later on today Paradoxical respiration especially in supine posture, would prefer to patient to stay upright on bed or sit on the chair Acute hypoxic respiratory failure Bilateral pneumonia hypokalemia Sepsis thrombocytopenia A. fib with RVR Chronic kidney disease Valvular heart disease with mitral regurgitation Altered mental status due to sepsis and pneumonia Baseline history of chronic atrial fibrillation heart failure Testing covidr 19 has been negative Plan: replace potassium as per protocol Keep nothing by mouth until he gets more definitive recommendation from speech and swallow Continue IV heparin for paroxysmal atrial fibrillation Monitor and observe platelet closely Echocardiogram results reviewed ejection fraction is 60%,, with mild to moderate aortic stenosis, severe pulmonary hypertension was noted right ventricle systolic pressure estimated to be 76, Broad-spectrum antibiotics Bronchodilators IV steroids Further plan of care and recommendation as per clinical response of the patient PT OT to evaluate and treat Time with Patient: Greater than 30
[2021-02-27] MEDS: METOPROLOL TARTRATE 5 MG/5 ML VIAL IVP SCH ×3 (11:36→21:19)
[2021-02-27] MEDS: HEPARIN SOD,PORK IN 0.45% NACL 25,000 UNIT in 0.45% NACL 1 250ML.BAG IV SCH (11:37)
[2021-02-27] MEDS: DILTIAZEM 125 MG in SODIUM CHLORIDE 0.9% 100 ML IV SCH ×2 (11:38→20:57)
[2021-02-27 11:41] LABS: Glucose,Whole Blood 123 mg/dL (75-99)
--- NOTE | 2021-02-27 13:15 | P.PN ---
Subjective Progress Note Date: 02/27/21 HISTORY OF PRESENT ILLNESS: This is an 85-year-old female who presented to the emergency room secondary to shortness of breath. Patient was found to be in respiratory distress. Patient was placed on mechanical ventilation. She was extubated over the weekend. She remains NPO and is scheduled for a swallow study per nursing. She remains on IV heparin and IV amio at 0.5mg/min. Patient remains in atrial fibrillation with uncontrolled ventricular rates in the 120s. Patient is on 3 L nasal cannula with oxygen saturations greater than 90%. Blood pressure 138/66. She is afebri le. Echocardiogram completed reveals ejection fraction 55-60%, mild aortic regurgitation, mild aortic stenosis, severe mitral regurgitation, [id number] mitral stenosis, severe tricuspid regurgitation, severe pulmonary hypertension, and small generalized pericardial effusion. PHYSICAL EXAM: VITAL SIGNS: Reviewed. GENERAL: Well-developed in no acute distress. NECK: Supple. No JVD or thyromegaly LUNGS: Respirations even and unlabored. Lungs diminished bilaterally. HEART: Tachycardic. Irregular rate and rhythm. S1 and S2 heard. Systolic murmur noted. EXTREMITIES: Normal range of motion. No clubbing or cyanosis. Peripheral pulses intact. No lower extremity edema ASSESSMENT: Acute hypoxic respiratory failure requiring mechanical ventilation Valvular heart disease Small generalized recurrent effusion Severe pulmonary hypertension Paroxysmal atrial fibrillation with RVR COPD Chronic kidney disease Anemia PLAN: Patient currently NPO Continue IV heparin Continue IV amio at 0.5mg/min Continue IV lopressor 5mg TID Begin cardizem drip at 10mg/hr after 10mg bolus Continue telemetry monitoring Will transition meds to oral when patient is able to tolerate PO medications Further recommendations pending patient course Nurse practitioner note has been reviewed by physician. Signing provider agrees with the documented findings, assessment, and plan of care. Objective - Vital Signs Vital signs: Vital Signs Temp 97.6 F 02/27/21 11:51 Pulse 86 02/27/21 11:51 Resp 20 02/27/21 11:51 BP 138/66 02/27/21 11:51 Pulse Ox 91 L 02/27/21 11:51 Intake & Output 02/26/21 02/27/21 02/27/21 18:59 06:59 18:59 Intake Total 548.809 48.832 91.18 Output Total 845 640 350 Balance -296.191 -591.168 -258.82 Weight 80 kg 80 kg Intake: IV 100 0.9ns @ kvo 100 Intake, IV Titration 448.809 48.832 91.18 Amount Amiodarone 450 mg In 302.501 Dextrose 5% in Water 250 ml @ 0.5 MG/MIN 16.667 mls/hr IV .Q15H [facility] Rx#: [id number] Heparin Sod,Pork in 0.45% 46.308 48.832 91.18 NaCl 25,000 unit In 0.45 % NaCl 1 250ml.bag @ 12 UNITS/KG/HR 6.12 mls/hr IV .Q24H [facility] Rx#: [id number] Piperacillin-Tazobactam 3 100 .375 gm In Sodium Chloride 0.9% 100 ml @ 25 mls/hr IVPB Q8HR [facility] Rx# :[id number] Oral 0 0 Output: Urine 845 640 350 Other: Voiding Method Indwelling Catheter Indwelling Catheter Indwelling Catheter - Labs CBC & Chem 7: 02/27/21 07:56 02/27/21 07:56 Labs: Abnormal Lab Results - Last 24 Hours (Table) 02/26/21 02/27/21 02/27/21 Range/Units 18:00 00:03 00:27 RBC (3.80-5.40) m/uL Hgb (11.4-16.0) gm/dL Hct (34.0-46.0) % MCHC (31.0-37.0) g/dL Plt Count (150-450) k/uL Lymphocytes # (1.0-4.8) k/uL PT (9.0-12.0) sec INR (<1.2) APTT 42.3 H (22.0-30.0) sec Chloride (98-107) mmol/L BUN (7-17) mg/dL Glucose (74-99) mg/dL POC Glucose (mg/dL) 100 H 198 H (75-99) mg/dL AST (14-36) U/L ALT (4-34) U/L Total Protein (6.3-8.2) g/dL Albumin (3.5-5.0) g/dL Stool Occult Blood (Negative) 02/27/21 02/27/21 02/27/21 Range/Units 05:30 05:57 07:56 RBC 2.96 L (3.80-5.40) m/uL Hgb 8.1 L (11.4-16.0) gm/dL Hct 27.5 L (34.0-46.0) % MCHC 29.5 L (31.0-37.0) g/dL Plt Count 69 L (150-450) k/uL Lymphocytes # 0.6 L (1.0-4.8) k/uL PT (9.0-12.0) sec INR (<1.2) APTT (22.0-30.0) sec Chloride (98-107) mmol/L BUN (7-17) mg/dL Glucose (74-99) mg/dL POC Glucose (mg/dL) 174 H (75-99) mg/dL AST (14-36) U/L ALT (4-34) U/L Total Protein (6.3-8.2) g/dL Albumin (3.5-5.0) g/dL Stool Occult Blood Positive H (Negative) 02/27/21 02/27/21 02/27/21 Range/Units 07:56 08:06 11:40 RBC (3.80-5.40) m/uL Hgb (11.4-16.0) gm/dL Hct (34.0-46.0) % MCHC (31.0-37.0) g/dL Plt Count (150-450) k/uL Lymphocytes # (1.0-4.8) k/uL PT 12.1 H (9.0-12.0) sec INR 1.2 H (<1.2) APTT 50.7 H (22.0-30.0) sec Chloride 115 H (98-107) mmol/L BUN 24 H (7-17) mg/dL Glucose 120 H (74-99) mg/dL POC Glucose (mg/dL) 123 H (75-99) mg/dL AST 37 H (14-36) U/L ALT 46 H (4-34) U/L Total Protein 5.7 L (6.3-8.2) g/dL Albumin 3.1 L (3.5-5.0) g/dL Stool Occult Blood (Negative)
[2021-02-27 13:48] LABS: D-Dimer 1.6 mg/L FEU (<0.60)
[2021-02-27] MEDS: SODIUM CHLORIDE 0.9% 1,000 ML IV SCH (14:55)
[2021-02-27] MEDS: AMIODARONE 450 MG in DEXTROSE 5% IN WATER 250 ML IV SCH ×2 (15:05)
[2021-02-27] MEDS: CHLORHEXIDINE GLUCONATE 15 ML CUP MUCOUS MEM SCH ×3 (16:24→21:19)
[2021-02-27 18:05] LABS: Glucose,Whole Blood 177 mg/dL (75-99)
--- NOTE | 2021-02-27 19:02 | P.PN ---
Subjective Progress Note Date: 02/27/21 Principal diagnosis: Respiratory distress hemoglobin 8.1, platelets down 69K. Objective - Vital Signs Vital signs: Vital Signs Temp 98.3 F 02/27/21 15:23 Pulse 100 02/27/21 18:54 Resp 22 02/27/21 15:23 BP 146/81 02/27/21 15:23 Pulse Ox 91 L 02/27/21 15:23 Intake & Output 02/27/21 02/27/21 02/28/21 06:59 18:59 06:59 Intake Total 48.832 341.18 Output Total 640 350 Balance -591.168 -8.82 Weight 80 kg 80 kg Intake: Intake, IV Titration 48.832 341.18 Amount Amiodarone 450 mg In 250 Dextrose 5% in Water 250 ml @ 0.5 MG/MIN 16.667 mls/hr IV .Q15H [facility] Rx#: [id number] Heparin Sod,Pork in 0.45% 48.832 91.18 NaCl 25,000 unit In 0.45 % NaCl 1 250ml.bag @ 12 UNITS/KG/HR 6.12 mls/hr IV .Q24H ANG[facility]A Rx#: [id number] Oral 0 Output: Urine 640 350 Other: Voiding Method Indwelling Catheter Indwelling Catheter # Bowel Movements 1 - Exam - Constitutional General appearance: average body habitus, disheveled, successfully weaned and extubated - EENT Eyes: PERRLA Ears: bilateral: normal - Neck Neck: lymphadenopathy Carotids: bilateral: upstroke normal - Respiratory Respiratory: bilateral: diminished - Cardiovascular Rhythm: regular Heart sounds: normal: S1, S2 - Gastrointestinal General gastrointestinal: decreased bowel sounds, distended, soft - Neurologic open eyes follow simple commands moving all 4 extremity - Labs CBC & Chem 7: 02/27/21 07:56 02/27/21 07:56 Labs: Abnormal Lab Results - Last 24 Hours (Table) 02/27/21 02/27/21 02/27/21 Range/Units 00:03 00:27 05:30 RBC (3.80-5.40) m/uL Hgb (11.4-16.0) gm/dL Hct (34.0-46.0) % MCHC (31.0-37.0) g/dL Plt Count (150-450) k/uL Lymphocytes # (1.0-4.8) k/uL PT (9.0-12.0) sec INR (<1.2) APTT 42.3 H (22.0-30.0) sec D-Dimer (<0.60) mg/L FEU Chloride (98-107) mmol/L BUN (7-17) mg/dL Glucose (74-99) mg/dL POC Glucose (mg/dL) 198 H (75-99) mg/dL AST (14-36) U/L ALT (4-34) U/L Total Protein (6.3-8.2) g/dL Albumin (3.5-5.0) g/dL Stool Occult Blood Positive H (Negative) 02/27/21 02/27/21 02/27/21 Range/Units 05:57 07:56 07:56 RBC 2.96 L (3.80-5.40) m/uL Hgb 8.1 L (11.4-16.0) gm/dL Hct 27.5 L (34.0-46.0) % MCHC 29.5 L (31.0-37.0) g/dL Plt Count 69 L (150-450) k/uL Lymphocytes # 0.6 L (1.0-4.8) k/uL PT (9.0-12.0) sec INR (<1.2) APTT (22.0-30.0) sec D-Dimer (<0.60) mg/L FEU Chloride 115 H (98-107) mmol/L BUN 24 H (7-17) mg/dL Glucose 120 H (74-99) mg/dL POC Glucose (mg/dL) 174 H (75-99) mg/dL AST 37 H (14-36) U/L ALT 46 H (4-34) U/L Total Protein 5.7 L (6.3-8.2) g/dL Albumin 3.1 L (3.5-5.0) g/dL Stool Occult Blood (Negative) 02/27/21 02/27/21 02/27/21 Range/Units 08:06 11:40 13:00 RBC (3.80-5.40) m/uL Hgb (11.4-16.0) gm/dL Hct (34.0-46.0) % MCHC (31.0-37.0) g/dL Plt Count (150-450) k/uL Lymphocytes # (1.0-4.8) k/uL PT 12.1 H (9.0-12.0) sec INR 1.2 H (<1.2) APTT 50.7 H (22.0-30.0) sec D-Dimer 1.60 H (<0.60) mg/L FEU Chloride (98-107) mmol/L BUN (7-17) mg/dL Glucose (74-99) mg/dL POC Glucose (mg/dL) 123 H (75-99) mg/dL AST (14-36) U/L ALT (4-34) U/L Total Protein (6.3-8.2) g/dL Albumin (3.5-5.0) g/dL Stool Occult Blood (Negative) 02/27/21 Range/Units 17:58 RBC (3.80-5.40) m/uL Hgb (11.4-16.0) gm/dL Hct (34.0-46.0) % MCHC (31.0-37.0) g/dL Plt Count (150-450) k/uL Lymphocytes # (1.0-4.8) k/uL PT (9.0-12.0) sec INR (<1.2) APTT (22.0-30.0) sec D-Dimer (<0.60) mg/L FEU Chloride (98-107) mmol/L BUN (7-17) mg/dL Glucose (74-99) mg/dL POC Glucose (mg/dL) 177 H (75-99) mg/dL AST (14-36) U/L ALT (4-34) U/L Total Protein (6.3-8.2) g/dL Albumin (3.5-5.0) g/dL Stool Occult Blood (Negative) Assessment and Plan Plan: Assessment and Plan (1) Bicytopenia Anemia and Labile Thrombocytopenia noted as far back as 2016. You can see where patient's counts have decreased during episodes of illness/admissions. Cytopenia workup has been ordered as no history of hematological work up in this medical record. Also, HIT antibody has been ordered, negative Transfuse to keep hemoglobin 7 or higher unless symptomatic. Hgb 8.1 today Transfuse to keep platelets greater than 10,000 unless bleeding, no evidence of bleeding today. Monitor for DIC
[2021-02-27] MEDS: LEVOTHYROXINE 112 MCG TAB OG-TUBE SCH (20:31)
[2021-02-27] MEDS: LATANOPROST 0.005% OPHTH DROPS 2.5 ML BTL BOTH EYES SCH (21:19)
--- NOTE | 2021-02-27 22:01 | P.PN ---
Progress Note - Text Progress Note Date: 02/27/21 Chief Complaint: Short of breath history of present complaint: This is a very pleasant 85-year-old patient of Dr. Maya. Currently at [facility]. Chronic stable medical conditions include COPD, paroxysmal atrial fibrillation, hypertension, hyperlipidemia, GERD, osteoarthritis, secondary pulmonary hypertension, hypothyroid, rosacea, osteoarthritis, urine stress incontinence,CHF from diastolic dysfunction EF 55- 60%, severe mitral regurgitation, moderate mitral stenosis, moderate tricuspid regurgitation, secondary pulmonary hypertension. Diverticulosis. at her baseline uses a cane and a walker. EMS was called out as patient had been lethargic all day. Patient is complaining that she is not feeling well. One hour prior to the EMS arrival patient became increasingly short of breath. Patient at baseline is 3 L of nasal cannula. And patient became less responsive and breathing worsen. 4 days ago patient had a negative COVID testing. When EMS arrived patient's found to have agonal respiration. Telemetry showed sinus rhythm. Patient is intubated. This afternoon patient has FiO2 15 of PEEP of 5. Drips included propofol and norepinephrine. Telemetry shows sinus rhythm. Admitted with bilateral pneumonia, acute respiratory arrest on ventilator support. Started on IV Zosyn, Levothroid, propofol, IV Solu-Medrol, bronchodilators. Extubated February 24. Today: Laying in bed. Awake. Following commands. Finding it difficult to ph hilda. Congested cough. Very poor oral hygiene Review of systems: Patient unable to vocalize Active Medications Acetaminophen (Acetaminophen Suppository 650 Mg Supp) 650 mg RECTAL Q4HR PRN PRN Reason: Fever And/ Or Mild Pain Acetaminophen (Acetaminophen Tab 325 Mg Tab) 650 mg PO Q4HR PRN PRN Reason: Fever and/or Mild Pain Acetazolamide (Acetazolamide 250 Mg Tab) 250 mg PO BID [facility] Last Admin: 02/27/21 20:31 Dose: Not Given Documented by: Albuterol/Ipratropium (Ipratropium-Albuterol 3 Ml Neb) 3 ml INHALATION RT-QID [facility] Last Admin: 02/27/21 18:54 Dose: 3 ml Documented by: Chlorhexidine Gluconate (Chlorhexidine Gluconate 15 Ml Cup) 15 ml MUCOUS MEM QID [facility] Last Admin: 02/27/21 21:19 Dose: 15 ml Documented by: Doxycycline Monohydrate (Doxycycline 100 Mg Cap) 100 mg PO BID [facility] Last Admin: 02/27/21 20:31 Dose: Not Given Documented by: Heparin Sodium (Porcine) (Heparin Sodium 1,000 Un/Ml (10ml Vl)) 0 unit IV PER PROTOCOL PRN; Protocol PRN Reason: Low PTT Last Admin: 02/27/21 01:09 Dose: 1,275 unit Documented by: Propofol 1,000 mg/ IV Solution 100 mls @ 0 mls/hr IV .Q0M [facility]; Protocol Last Titration: 02/23/21 15:10 Dose: 0 mcg/kg/min, 0 mls/hr Documented by: Piperacillin Sod/Tazobactam (Sod 3.375 gm/ Sodium Chloride) 100 mls @ 25 mls/hr IVPB Q8HR [facility] Last Admin: 02/27/21 15:04 Dose: 25 mls/hr Documented by: Heparin Sodium/Sodium Chloride (25,000 unit/ Sodium Chloride) 250 mls @ 6.12 mls/hr IV .Q24H [facility]; Protocol Last Admin: 02/27/21 11:37 Dose: 17 units/kg/hr, 8.67 mls/hr Documented by: Amiodarone HCl 450 mg/ (Dextrose/Water) 250 mls @ 16.667 mls/hr IV .Q15H [facility]; Protocol Last Admin: 02/27/21 15:05 Dose: 0.5 mg/min, 16.667 mls/hr Documented by: Diltiazem HCl 125 mg/ Sodium (Chloride) 125 mls @ 10 mls/hr IV .[id number] [facility] Last Admin: 02/27/21 20:57 Dose: 10 mg/hr, 10 mls/hr Documented by: Sodium Chloride (Saline 0.9%) 1,000 mls @ 50 mls/hr IV .Q20H [facility] Last Admin: 02/27/21 14:55 Dose: 50 mls/hr Documented by: Insulin Aspart (Insulin Aspart (Novolog) 100 Unit/Ml Vial) 0 unit SQ Q6H [facility]; Protocol Last Admin: 02/27/21 18:00 Dose: 4 unit Documented by: Latanoprost (Latanoprost 0.005% Ophth Drops 2.5 Ml Btl) 1 drops BOTH EYES HS@1999 [facility] Last Admin: 02/27/21 21:19 Dose: Not Given Documented by: Levothyroxine Sodium (Levothyroxine 112 Mcg Tab) 112 mcg OG-TUBE [facility] Last Admin: 02/27/21 20:31 Dose: Not Given Documented by: Methylprednisolone Sodium Succinate (Methylprednisolone Sod Succi 40 Mg/Ml 1 Ml Vial) 40 mg IV Q8HR [facility] Last Admin: 02/27/21 15:00 Dose: 40 mg Documented by: Metoprolol Tartrate (Metoprolol Tartrate 5 Mg/5 Ml Vial) 5 mg IVP TID [facility] Last Admin: 02/27/21 21:19 Dose: 5 mg Documented by: Miscellaneous Information (Potassium Replacement Protocol 1 Each Misc) 1 each MISCELLANE DAILY PRN; Protocol PRN Reason: Per Protocol Miscellaneous Information (Magnesium Replacement Protocol 1 Each Misc) 1 each MISCELLANE DAILY PRN; Protocol PRN Reason: Per Protocol Miscellaneous Information (Potassium Replacement Protocol 1 Each Misc) 1 each MISCELLANE DAILY PRN; Protocol PRN Reason: Per Protocol Morphine Sulfate (Morphine Sulfate 4 Mg/Ml Syringe) 3 mg IV Q2HR PRN PRN Reason: Pain Scale 6 to 7 Naloxone HCl (Naloxone 0.4 Mg/Ml 1 Ml Vial) 0.2 mg IV Q2M PRN PRN Reason: Opioid Reversal Nitroglycerin (Nitroglycerin Oint 1 Inch/Gm Packet) 1 inch TOPICAL Q8HR [facility] Last Admin: 02/27/21 15:05 Dose: 1 inch Documented by: Ropinirole HCl (Ropinirole Hcl 1 Mg Tab) 2 mg PO [facility] Last Admin: 02/27/21 20:32 Dose: Not Given Documented by: Senna/Docusate Sodium (Sennosides-Docusate Sodium 1 Each Tab) 1 each PO DAILY [facility] Last Admin: 02/27/21 11:00 Dose: Not Given Documented by: Sodium Chloride (Sodium Chloride 0.9% Flush 10 Ml Syringe) 10 ml IV Q4HR PRN PRN Reason: PICC Line Sodium Chloride (Sodium Chloride 0.9% Flush 10 Ml Syringe) 10 ml IV WEEKLY [facility] Sodium Chloride (Sodium Chloride 0.9% Flush 10 Ml Syringe) 20 ml IV Q4HR PRN PRN Reason: PICC Line Past medical history: Right adnexa growth being followed as an outpatient, COPD, paroxysmal atrial fibrillation, hypertension, hyperlipidemia, COPD, GERD, primary osteoarthritis, colon cancer in 2001, secondary pulmonary hypertension, hypothyroid, rosacea, urinary stress incontinence, osteoarthritis chronic diverticulosis, gastritis duodenitis, colon cancer treated with surgery chemoradiation, home oxygen 2 L, chronic kidney disease stage III, stroke with some speech impairment, hypothyroid,chronic congestive heart failure from diastolic dysfunction EF 55-60%, severe mitral regurgitation, moderate mitral stenosis, moderate tricuspid regurgitation., chronic thrombocytopenia Social history: At [facility] [employer] [place] Smoked for 20 years, stopped in 1986, smoked a pack and half Physical examination: VITAL SIGNS: 98.3, 86, 22, 146/81, 91% on 3 L GENERAL: Laying in bed, awake, tired, congested EYES: Pupils equal. Conjunctiva normal HEENT: External appearance of nose and ears normal, oral cavity-poor hygiene NECK: JVD unable to assess; masses not palpable. HEART: First and second heart sounds are normal; edema present LUNGS: Respiratory rate increased, decreased breaths, some coarse crackles ABDOMEN: Soft, nontender, liver spleen not palpable, no masses palpable. PSYCH: Unable to assess. EXTREMITIES: Missing right hand fingers, except thumb INVESTIGATIONS, reviewed in the clinical context: February 27: WBC 8.7 hemoglobin 8.1 platelet 69 d-dimer 1.6 creatinine 1.04 February 26: WBC 12.8 hemoglobin 8.4 potassium 4 creatinine 1.08 February 25: WBC 11.9 hemoglobin 9 platelets 86 potassium 3.8 creatinine 1.26 February 24: Potassium 4.6 creatinine 1.17 February 23: WBC 6.7 hemoglobin 8.9 platelets 71 potassium 3.3 creatinine 1.24 February 22: WBC 7.5 hemoglobin 7.8 platelets 85 potassium 3.6 bun 30 creatinine 1.14 February 21: WBC 9.3 hemoglobin 8.4 platelets 88 potassium 3.8 creatinine 0.89 TSH 0.14 T4 3 0.61 February 20: WBC 8.4 hemoglobin 8.5 platelets 74 February 19: WBC 12 hemoglobin 7.4 platelets 122 potassium 3.2 creatinine 1.03 Computed tomography scan of the chest: Negative for PE. Extensive pulmonary airspace consolidation with bilateral pleural effusions. WBC 16.1 hemoglobin 7.9 platelets 176 d-dimer 4.86 ABG pH 7.4 pCO2 38 pO2 208 potassium 4 bun 27 creatinine 1.19 Lactic acid 5.7 and repeat 2.2 proBNP 2900 procalcitonin 0.04 UA showing 1+ protein Coronavirus [PCR] not detected EKG tracing personally reviewed by me-sinus rhythm, left bundle-branch block Chest x-ray film personally reviewed by me-bilateral extensive pulmonary infiltr ates assessment: -bilateral suspected gram-negative pneumonia. IV Zosyn. -Acute hypoxic respiratory failure, secondary to pneumonia patient went into respiratory some improvement On ventilator support. Extubated February 24. Currently on 3 L nasal cannula -Acute on chronic congestive heart failure exacerbation, from diastolic dysfunction EF 55-60%,-euvolemic Did receive IV Lasix -Acute COPD exacerbation in an [id number] bronchodilators, IV steroids-cut back, -Severe mitral regurgitation, moderate mitral stenosis, moderate tricuspid regurgitation Follow clinically -Secondary moderate pulmonary hypertension from COPD and CHF Follow clinically -Essential hypertension- continue beta amara. Amlodipine added -GERD- use PPI -Primary osteoarthritis- use analgesics when necessary -Hypothyroid- continue Synthroid -Chronic urinary stress incontinence- Doll catheter -Chronic diverticulosis- Follow clinically -Chronic gait dysfunction uses walker -Left bundle-branch block, chronic Telemetry -Paroxysmal atrial fibrillation, currently sinus rhythm. -New-onset of thrombocytopenia. Platelet count above 50. Consult hematology -Metabolic alkalosis likely from volume contraction Add Diamox. Hold of IV Lasix temporarily. -Acute kidney injury likely prerenal from diuresis Receive fluids. Stable -Acute metabolic encephalopathy multifactorial Follow closely -Dysphagia following extubation, with contribution from poor oral hygiene. Chlorhexidine mouthwash Discussed with nurse. Chlorhexidine mouthwash 4 times a day with cotton swabs.
[2021-02-28 00:01] LABS: Glucose,Whole Blood 160 mg/dL (75-99)
[2021-02-28] MEDS: NITROGLYCERIN OINT 1 INCH/GM PACKET TOPICAL SCH ×3 (01:31→16:30)
[2021-02-28] MEDS: PIPERACILLIN-TAZOBACTAM 3.375 GM in SODIUM CHLORIDE 0.9% 100 ML IVPB SCH ×3 (01:31→16:30)
[2021-02-28] MEDS: INSULIN ASPART (NovoLOG) 100 UNIT/ML VIAL SQ SCH ×5 (01:31→20:44)
[2021-02-28] MEDS: AMIODARONE 450 MG in DEXTROSE 5% IN WATER 250 ML IV SCH ×4 (03:33→20:26)
[2021-02-28 05:57] LABS: Glucose,Whole Blood 131 mg/dL (75-99)
[2021-02-28] MEDS: acetaZOLAMIDE 250 MG TAB PO SCH ×2 (07:28→20:44)
[2021-02-28] MEDS: SENNOSIDES-DOCUSATE SODIUM 1 EACH TAB PO SCH (07:28)
[2021-02-28] MEDS: DOXYCYCLINE 100 MG CAP PO SCH ×2 (07:28→20:42)
[2021-02-28] MEDS: methylPREDNISolone SOD SUCCI 40 MG/ML 1 ML VIAL IV SCH ×2 (08:04→20:44)
[2021-02-28] MEDS: METOPROLOL TARTRATE 5 MG/5 ML VIAL IVP SCH ×3 (08:05→21:04)
[2021-02-28] MEDS: HEPARIN SOD,PORK IN 0.45% NACL 25,000 UNIT in 0.45% NACL 1 250ML.BAG IV SCH (08:06)
[2021-02-28] MEDS: CHLORHEXIDINE GLUCONATE 15 ML CUP MUCOUS MEM SCH ×4 (08:06→21:00)
[2021-02-28 08:55] LABS: Anisocytosis Slight; Basophils # (A) 0.1 k/uL (0-0.2); Basophils % (A) 0 %; Eosinophils % (A) 0 %; HCT 24.3 % (34.0-46.0); HGB 7.4 gm/dL (11.4-16.0); Hypochromasia Marked; Lymphocytes # (A) 1.3 k/uL (1.0-4.8); Lymphocytes % (A) 7 %; MCH 28.4 pg (25.0-35.0); MCHC 30.3 g/dL (31.0-37.0); MCV 93.6 fL (80.0-100.0); Mean Platelet Volume 10.4; Monocytes # (A) 0.7 k/uL (0-1.0); Monocytes % (A) 4 %; Neutrophils # (A) 15.5 k/uL (1.3-7.7); Neutrophils % (A) 87 %; Platelet Count 100 k/uL (150-450); Poikilocytosis Slight; RDW 16.2 % (11.5-15.5); WBC 17.8 k/uL (3.8-10.6)
[2021-02-28] MEDS: IPRATROPIUM-ALBUTEROL 3 ML NEB INHALATION SCH ×4 (09:16→19:24)
[2021-02-28 09:56] LABS: Calcium 8.7 mg/dL (8.4-10.2); Potassium 3.5 mmol/L (3.5-5.1); Total Protein 5.6 g/dL (6.3-8.2)
[2021-02-28] MEDS: SODIUM CHLORIDE 0.9% 1,000 ML IV SCH ×2 (10:56→16:21)
[2021-02-28] MEDS: DILTIAZEM 125 MG in SODIUM CHLORIDE 0.9% 100 ML IV SCH (10:57)
[2021-02-28 12:01] LABS: Glucose,Whole Blood 162 mg/dL (75-99)
--- NOTE | 2021-02-28 13:44 | P.PN ---
Subjective Progress Note Date: 02/28/21 HISTORY OF PRESENT ILLNESS: 02/27/2021 This is an 85-year-old female who presented to the emergency room secondary to shortness of breath. Patient was found to be in respiratory distress. Patient was placed on mechanical ventilation. She was extubated over the weekend. She remains NPO and is scheduled for a swallow study per nursing. She remains on IV heparin and IV amio at 0.5mg/min. Patient remains in atrial fibrillation with uncontrolled ventricular rates in the 120s. Patient is on 3 L nasal cannula with oxygen saturations greater than 90%. Blood pressure 138/66. She is afebrile. Echocardiogram completed reveals ejection fraction 55-60%, mild aortic regurgitation, mild aortic stenosis, severe mitral regurgitation, [id number] mitral stenosis, severe tricuspid regurgitation, severe pulmonary hypertension, and small generalized pericardial effusion. 02/28/2021 Patient examined at the bedside this morning by Dr. Spence. Patient remains in atrial fibrillation with fairly controlled heart rates. She remains NPO.She remains on IV amio at 0.5mg/min and Cardizem at 10mg/hr. Nursing reports she has been having some blood in her mouth. She is on a heparin drip. Hemoglobin 7.4, down from 8.1. PHYSICAL EXAM: VITAL SIGNS: Reviewed. GENERAL: Well-developed in no acute distress. NECK: Supple. No JVD or thyromegaly LUNGS: Respirations even and unlabored. Lungs diminished bilaterally. Patient with upper airway congestion and audible gurgling on examination. HEART: Irregular rate and rhythm. S1 and S2 heard. Systolic murmur noted. EXTREMITIES: Normal range of motion. No clubbing or cyanosis. Peripheral pulses intact. No lower extremity edema ASSESSMENT: Acute hypoxic respiratory failure requiring mechanical ventilation Bilateral pneumonia Leukocytosis Valvular heart disease Small generalized pericardial effusion Severe pulmonary hypertension Paroxysmal atrial fibrillation with RVR, not on manager intermediate anticoagulation due to history of GI bleeding Acute on chronic diastolic heart failure, EF 55-60%, resolved COPD Chronic kidney disease Anemia PLAN: Patient currently NPO Discontinue IV heparin due to bleeding. Monitor hemoglobin. Continue IV amio at 0.5mg/min Continue IV lopressor 5mg TID Continue cardizem drip at 10mg/hr Continue telemetry monitoring Will transition meds to oral when patient is able to tolerate PO medications Further recommendations pending patient course Nurse practitioner note has been reviewed by physician. Signing provider agrees with the documented findings, assessment, and plan of care. Objective - Vital Signs Vital signs: Vital Signs Temp 97.6 F 02/28/21 08:20 Pulse 96 02/28/21 11:41 Resp 22 02/28/21 08:20 BP 150/67 02/28/21 08:20 Pulse Ox 91 L 02/28/21 11:41 Intake & Output 02/27/21 02/28/21 02/28/21 18:59 06:59 18:59 Intake Total 341.18 300.949 552.59 Output Total 350 520 Balance -8.82 -219.051 552.59 Weight 80 kg 82.5 kg Intake: Intake, IV Titration 341.18 300.949 552.59 Amount Amiodarone 450 mg In 250 207.782 Dextrose 5% in Water 250 ml @ 0.5 MG/MIN 16.667 mls/hr IV .Q15H [facility] Rx#: [id number] Diltiazem 125 mg In 93.167 125 Sodium Chloride 0.9% 100 ml @ 10 MG/HR 10 mls/hr IV .[id number] [facility] Rx#: [id number] Heparin Sod,Pork in 0.45% 91.18 177.59 NaCl 25,000 unit In 0.45 % NaCl 1 250ml.bag @ 12 UNITS/KG/HR 6.12 mls/hr IV .Q24H [facility] Rx#: [id number] Piperacillin-Tazobactam 3 100 .375 gm In Sodium Chloride 0.9% 100 ml @ 25 mls/hr IVPB Q8HR [facility] Rx# :[id number] Sodium Chloride 0.9% 1, 150 000 ml @ 50 mls/hr IV . Q20H [facility] Rx#:[id number] Oral 0 Output: Urine 350 520 Other: Voiding Method Indwelling Catheter Indwelling Catheter Indwelling Catheter # Bowel Movements 1 1 - Labs CBC & Chem 7: 02/28/21 08:30 02/28/21 08:30 Labs: Abnormal Lab Results - Last 24 Hours (Table) 02/27/21 02/27/21 02/27/21 Range/Units 13:00 17:58 23:59 WBC (3.8-10.6) k/uL RBC (3.80-5.40) m/uL Hgb (11.4-16.0) gm/dL Hct (34.0-46.0) % MCHC (31.0-37.0) g/dL RDW (11.5-15.5) % Plt Count (150-450) k/uL Neutrophils # (1.3-7.7) k/uL APTT (22.0-30.0) sec D-Dimer 1.60 H (<0.60) mg/L FEU Chloride (98-107) mmol/L BUN (7-17) mg/dL Glucose (74-99) mg/dL POC Glucose (mg/dL) 177 H 160 H (75-99) mg/dL Total Protein (6.3-8.2) g/dL Albumin (3.5-5.0) g/dL 02/28/21 02/28/21 02/28/21 Range/Units 05:50 08:30 08:30 WBC 17.8 H (3.8-10.6) k/uL RBC 2.60 L (3.80-5.40) m/uL Hgb 7.4 L (11.4-16.0) gm/dL Hct 24.3 L (34.0-46.0) % MCHC 30.3 L (31.0-37.0) g/dL RDW 16.2 H (11.5-15.5) % Plt Count 100 L (150-450) k/uL Neutrophils # 15.5 H (1.3-7.7) k/uL APTT (22.0-30.0) sec D-Dimer (<0.60) mg/L FEU Chloride 114 H (98-107) mmol/L BUN 21 H (7-17) mg/dL Glucose 125 H (74-99) mg/dL POC Glucose (mg/dL) 131 H (75-99) mg/dL Total Protein 5.6 L (6.3-8.2) g/dL Albumin 3.0 L (3.5-5.0) g/dL 02/28/21 02/28/21 Range/Units 08:30 12:00 WBC (3.8-10.6) k/uL RBC (3.80-5.40) m/uL Hgb (11.4-16.0) gm/dL Hct (34.0-46.0) % MCHC (31.0-37.0) g/dL RDW (11.5-15.5) % Plt Count (150-450) k/uL Neutrophils # (1.3-7.7) k/uL APTT 74.4 H (22.0-30.0) sec D-Dimer (<0.60) mg/L FEU Chloride (98-107) mmol/L BUN (7-17) mg/dL Glucose (74-99) mg/dL POC Glucose (mg/dL) 162 H (75-99) mg/dL Total Protein (6.3-8.2) g/dL Albumin (3.5-5.0) g/dL
--- NOTE | 2021-02-28 14:17 | P.PN ---
Subjective From records: This is a very pleasant 85-year-old patient of Dr. Maya. Currently at [facility]. Chronic stable medical conditions include COPD, paroxysmal atrial fibrillation, hypertension, hyperlipidemia, GERD, osteoarthritis, secondary pulmonary hypertension, hypothyroid, rosacea, osteoarthritis, urine stress incontinence,CHF from diastolic dysfunction EF 55- 60%, severe mitral regurgitation, moderate mitral stenosis, moderate tricuspid regurgitation, secondary pulmonary hypertension. Diverticulosis. at her baseline uses a cane and a walker. EMS was called out as patient had been lethargic all day. Patient is compla ining that she is not feeling well. One hour prior to the EMS arrival patient became increasingly short of breath. Patient at baseline is 3 L of nasal cannula. And patient became less responsive and breathing worsen. 4 days ago patient had a negative COVID testing. When EMS arrived patient's found to have agonal respiration. Telemetry showed sinus rhythm. Patient is intubated. This afternoon patient has FiO2 15 of PEEP of 5. Drips included propofol and norepinephrine. Telemetry shows sinus rhythm. Admitted with bilateral pneumonia, acute respiratory arrest on ventilator support. Started on IV Zosyn, Levothroid, propofol, IV Solu-Medrol, bronchodilators. Extubated February 24. Today: Laying in bed. Awake. Following commands. Finding it difficult to phonate. Congested cough. Very poor oral hygiene Subjective: 02/28/2021 This is a pleasant 85 years old female with multiple medical problems was admitted to the ICU for bilateral pneumonia with respiration dispensed suspected and paroxysmal atrial fibrillation with RVR, acute COPD exacerbation, bicytopenia and valvular heart disease. Originally patient is from [facility]. She got extubated and transported to the general medical floor at [facility]. Today patient lying in bed slightly tachypneic, very weak, she answers some questions with dyspnea. She denies chest pain or palpitation or dizziness. She still complaining of from lateral cough. She still nothing by mouth and there is some bleeding in her throat while she is on heparin drip with hemoglobin slightly trended down to 8.1 down to 7.4, cardiology team discontinued her heparin drip due to bleeding. Her CTA on admission showing no PE with extensive bilateral consolidation on 02/19. She is on 4 L oxygen compared to 3 l/m yesterday with a breathing rate of 22 breaths per minute, her tachycardia slightly better today. Also hematology and pulmonary team on the case She remains on amiodarone and Cardizem drips, some Medrol 40 mg twice daily, Zosyn and normal cyanotic 50 mL/h. Heparin drip was discontinued Review of systems CONSTITUTIONAL: No fever, no malaise, no fatigue. HEENT: No recent visual problems or hearing problems. Denied any sore throat. CARDIOVASCULAR: No orthopnea, PND, no palpitations, no syncope. PULMONARY: No chest wall tenderness, no hemoptysis. GASTROINTESTINAL: No diarrhea, no nausea, no vomiting, no abdominal pain. Normoactive bowel sounds. NEUROLOGICAL: No headaches, no weakness, no numbness. Active Medications Generic Name Dose Route Start Last Admin Trade Name Freq PRN Reason Stop Dose Admin Acetaminophen 650 mg 02/18/21 06:10 Acetaminophen Suppository 650 Mg Supp RECTAL Q4HR PRN Fever And/ Or Mild Pain Acetaminophen 650 mg 02/18/21 06:10 Acetaminophen Tab 325 Mg Tab PO Q4HR PRN Fever and/or Mild Pain Acetazolamide 250 mg 02/22/21 21:00 02/28/21 07:28 Acetazolamide 250 Mg Tab PO Not Given BID ANGELA Albuterol/Ipratropium 3 ml 02/18/21 16:00 02/28/21 11:40 Ipratropium-Albuterol 3 Ml Neb INHALATION 3 ml RT-QID ANGELA Administration Chlorhexidine Gluconate 15 ml 02/27/21 13:45 02/28/21 12:35 Chlorhexidine Gluconate 15 Ml Cup MUCOUS MEM Not Given QID ANGELA Doxycycline Monohydrate 100 mg 02/18/21 21:00 02/28/21 07:28 Doxycycline 100 Mg Cap PO Not Given BID ANGELA Propofol 1,000 mg/ IV Solution 100 mls @ 0 mls/hr 02/18/21 03:45 02/23/21 15:10 IV 0 mcg/kg/min .Q0M ANGELA 0 mls/hr Titration Protocol Titrate Piperacillin Sod/Tazobactam 100 mls @ 25 mls/hr 02/18/21 16:00 02/28/21 08:04 Sod 3.375 gm/ Sodium Chloride IVPB 25 mls/hr Q8HR ANGELA Administration Amiodarone HCl 450 mg/ 250 mls @ 16.667 mls/hr 02/26/21 11:15 02/28/21 03:33 Dextrose/Water IV 0.5 mg/min .Q15H ANGELA 16.667 mls/hr Administration Protocol 0.5 MG/MIN Diltiazem HCl 125 mg/ Sodium 125 mls @ 10 mls/hr 02/27/21 10:00 02/28/21 10 :57 Chloride IV 10 mg/hr .[id number] ANGELA 10 mls/hr Administration 10 MG/HR Sodium Chloride 1,000 mls @ 50 mls/hr 02/27/21 14:00 02/28/21 10:56 Saline 0.9% IV 50 mls/hr .Q20H ANGELA Administration Insulin Aspart 0 unit 02/20/21 18:00 02/28/21 12:35 Insulin Aspart (Novolog) 100 Unit/Ml Vial SQ 3 unit Q6H ANGELA Administration Protocol Latanoprost 1 drops 02/18/21 20:00 02/27/21 21:19 Latanoprost 0.005% Ophth Drops 2.5 Ml Btl BOTH EYES Not Given HS@2000 [facility] Levothyroxine Sodium 112 mcg 02/18/21 21:00 02/27/21 20:31 Levothyroxine 112 Mcg Tab OG-TUBE Not Given HS [facility] Methylprednisolone Sodium Succinate 40 mg 02/28/21 09:00 02/28/21 08:04 Methylprednisolone Sod Succi 40 Mg/Ml 1 Ml Vial IV 40 mg Q12H ANGELA Administration Metoprolol Tartrate 5 mg 02/25/21 15:00 02/28/21 08:05 Metoprolol Tartrate 5 Mg/5 Ml Vial IVP 5 mg TID ANGELA Administration Miscellaneous Information 1 each 02/19/21 06:23 Potassium Replacement Protocol 1 Each [facility] [place] PRN Per Protocol Protocol Miscellaneous Information 1 each 02/21/21 05:00 Magnesium Replacement Protocol 1 Each [facility] [place] PRN Per Protocol Protocol Miscellaneous Information 1 each 02/22/21 04:51 Potassium Replacement Protocol 1 Each Mis MISCELLANE DAILY PRN Per Protocol Protocol Morphine Sulfate 3 mg 02/18/21 06:10 Morphine Sulfate 4 Mg/Ml Syringe IV Q2HR PRN Pain Scale 6 to 7 Naloxone HCl 0.2 mg 02/18/21 06:10 Naloxone 0.4 Mg/Ml 1 Ml Vial IV Q2M PRN Opioid Reversal Nitroglycerin 1 inch 02/26/21 09:00 02/28/21 08:04 Nitroglycerin Oint 1 Inch/Gm Packet TOPICAL 1 inch Q8HR [facility] Administration Ropinirole HCl 2 mg 02/18/21 21:00 02/27/21 20:32 Ropinirole Hcl 1 Mg Tab PO Not Given HS ANGELA Senna/Docusate Sodium 1 each 02/19/21 09:00 02/28/21 07:28 Sennosides-Docusate Sodium 1 Each Tab PO Not Given DAILY ANGELA Sodium Chloride 10 ml 02/22/21 15:47 Sodium Chloride 0.9% Flush 10 Ml Syringe IV Q4HR PRN PICC Line Sodium Chloride 10 ml 03/01/21 09:00 Sodium Chloride 0.9% Flush 10 Ml Syringe IV WEEKLY ANGELA Sodium Chloride 20 ml 02/22/21 15:47 Sodium Chloride 0.9% Flush 10 Ml Syringe IV Q4HR PRN PICC Line Objective - Vital Signs Vital signs: Vital Signs Temp 97.6 F 02/28/21 08:20 Pulse 96 02/28/21 11:41 Resp 22 02/28/21 08:20 BP 150/67 02/28/21 08:20 Pulse Ox 91 L 02/28/21 11:41 Intake & Output 02/27/21 02/28/21 02/28/21 18:59 06:59 18:59 Intake Total 341.18 300.949 552.59 Output Total 350 520 Balance -8.82 -219.051 552.59 Weight 80 kg 82.5 kg Intake: Intake, IV Titration 341.18 300.949 552.59 Amount Amiodarone 450 mg In 250 207.782 Dextrose 5% in Water 250 ml @ 0.5 MG/MIN 16.667 mls/hr IV .Q15H [facility] Rx#: [id number] Diltiazem 125 mg In 93.167 125 Sodium Chloride 0.9% 100 ml @ 10 MG/HR 10 mls/hr IV .[id number] [facility] Rx#: [id number] Heparin Sod,Pork in 0.45% 91.18 177.59 NaCl 25,000 unit In 0.45 % NaCl 1 250ml.bag @ 12 UNITS/KG/HR 6.12 mls/hr IV .Q24H [facility] Rx#: [id number] Piperacillin-Tazobactam 3 100 .375 gm In Sodium Chloride 0.9% 100 ml @ 25 mls/hr IVPB Q8HR [facility] Rx# :[id number] Sodium Chloride 0.9% 1, 150 000 ml @ 50 mls/hr IV . Q20H ANG[facility] Rx#:[id number] Oral 0 Output: Urine 350 520 Other: Voiding Method Indwelling Catheter Indwelling Catheter Indwelling Catheter # Bowel Movements 1 1 - Exam GENERAL: The patient is alert and oriented x3, not in any acute distress. Well developed, well nourished. HEENT: Pupils are round and equally reacting to light. EOMI. No scleral icterus. No conjunctival pallor. Normocephalic, atraumatic. No pharyngeal erythema. No thyromegaly. CARDIOVASCULAR: S1 and S2 present. No murmurs, rubs, or gallops. -PULMONARY: Chest is clear to auscultation, no wheezing . Bilateral basal crepitation ABDOMEN: Soft, nontender, nondistended, normoactive bowel sounds. No palpable organomegaly. MUSCULOSKELETAL: No joint swelling or deformity. EXTREMITIES: No cyanosis, clubbing, or pedal edema. NEUROLOGICAL: Gross neurological examination did not reveal any focal deficits. SKIN: No rashes. no petechiae. - Labs CBC & Chem 7: 02/28/21 08:30 02/28/21 08:30 Labs: Abnormal Lab Results - Last 24 Hours (Table) 02/27/21 02/27/21 02/28/21 Range/Units 17:58 23:59 05:50 WBC (3.8-10.6) k/uL RBC (3.80-5.40) m/uL Hgb (11.4-16.0) gm/dL Hct (34.0-46.0) % MCHC (31.0-37.0) g/dL RDW (11.5-15.5) % Plt Count (150-450) k/uL Neutrophils # (1.3-7.7) k/uL APTT (22.0-30.0) sec Chloride (98-107) mmol/L BUN (7-17) mg/dL Glucose (74-99) mg/dL POC Glucose (mg/dL) 177 H 160 H 131 H (75-99) mg/dL Total Protein (6.3-8.2) g/dL Albumin (3.5-5.0) g/dL 02/28/21 02/28/21 02/28/21 Range/Units 08:30 08:30 08:30 WBC 17.8 H (3.8-10.6) k/uL RBC 2.60 L (3.80-5.40) m/uL Hgb 7.4 L (11.4-16.0) gm/dL Hct 24.3 L (34.0-46.0) % MCHC 30.3 L (31.0-37.0) g/dL RDW 16.2 H (11.5-15.5) % Plt Count 100 L (150-450) k/uL Neutrophils # 15.5 H (1.3-7.7) k/uL APTT 74.4 H (22.0-30.0) sec Chloride 114 H (98-107) mmol/L BUN 21 H (7-17) mg/dL Glucose 125 H (74-99) mg/dL POC Glucose (mg/dL) (75-99) mg/dL Total Protein 5.6 L (6.3-8.2) g/dL Albumin 3.0 L (3.5-5.0) g/dL 02/28/21 Range/Units 12:00 WBC (3.8-10.6) k/uL RBC (3.80-5.40) m/uL Hgb (11.4-16.0) gm/dL Hct (34.0-46.0) % MCHC (31.0-37.0) g/dL RDW (11.5-15.5) % Plt Count (150-450) k/uL Neutrophils # (1.3-7.7) k/uL APTT (22.0-30.0) sec Chloride (98-107) mmol/L BUN (7-17) mg/dL Glucose (74-99) mg/dL POC Glucose (mg/dL) 162 H (75-99) mg/dL Total Protein (6.3-8.2) g/dL Albumin (3.5-5.0) g/dL Assessment and Plan Assessment: -bilateral aspiration pneumonia. -Acute hypoxic respiratory failure, secondary to pneumonia patient went into respiratory some improvement -Dysphagia following extubation, with contribution from poor oral hygiene. -Acute COPD exacerbation in an [id number] -Severe mitral regurgitation, moderate mitral stenosis, moderate tricuspid regurgitation -Secondary moderate pulmonary hypertension from COPD and CHF Possible bleeding from her throat while on heparin drip which is stopped now- -Essential hypertension -GERD -Primary osteoarthritis -Hypothyroid -Chronic urinary stress incontinence -Chronic diverticulosis -Chronic gait dysfunction uses walker -Left bundle-branch block, chronic -Paroxysmal atrial fibrillation, currently sinus rhythm. -New-onset of thrombocytopenia. Platelet count above 50. -Metabolic alkalosis likely from volume contraction -Acute kidney injury likely prerenal from diuresis -Acute metabolic encephalopathy multifactorial Plan: This is a pleasant 85 years old female who presents with pneumonia and COPD and A. fib. Continue with amiodarone and Cardizem drip and switched to oral medication per cardiology. Discontinue anticoagulation due to bleeding from her throat with a slight drop in hemoglobin. Continue with antibiotics and steroids and gentle hydration. Several consultants on the case including pulmonary, cardiology and hematology/oncology and follow-up with a recommendation Labs and medication were reviewed.. Continue same treatment. Continue with symptomatic treatment. Resume home medication. Monitor lytes and vitals. DVT and GI prophylaxis. Further recommendationsas per clinical course of the patient DVT prophylaxis: No anticoagulation for possible bleeding from her throat GI Prophylaxis: Pepcid PT/OT: Pending Prognosis is guarded
[2021-02-28] MEDS: POTASSIUM CHLORIDE 10 MEQ in WATER FOR INJECTION 1 100ML.BAG IVPB SCH ×4 (16:29→20:25)
--- NOTE | 2021-02-28 16:37 | P.PN ---
Subjective Progress Note Date: 02/28/21 Principal diagnosis: Acute hypoxic respiratory failure Bilateral pneumonia Sepsis Chronic kidney disease Altered mental status due to sepsis and pneumonia Baseline history of chronic atrial fibrillation heart failure Testing covid 19 has been negative 02/28/2021, patient seen eval examined remains on 4 L oxygen she has a tendency of pooling secretions during sleep, able to make a good cough sitting upright and awake, speech and swallowing evaluating the patient for definitive recommendation about oral nutrition and support, ongoing dyspnea and shortness of breath and intermittent cough is present labs reviewed, A. fib with RVR improved, patient however remains on Cardizem drip and amiodarone along with broad-spectrum antibiotics 02/27/2021, patient seen eval examined during the rounds care plan discussed with RN, patient to much better when sitting upright and during awake swallowing function is still marginal, formal swallowing evaluation are being conducted by speech therapist later on today, patient currently on 3 L nasal cannula, remains on heparin and Cardizem drip, she has been started on Cardizem drip yesterdaymy labs reviewed BUN/creatinine is 24/1.04, 02/26/2021, patient seen eval examined during the rounds labs reviewed medications reviewed care plan discussed the staff at length, patient on the nebulizer treatment otherwise she is on 4 L, patient has been up on the chair most of the day yesterday and at nighttime now on bed, paradoxical respiration appeared to be more pronounced and prominent supine, patient remains nothing by mouth as she has been risk for aspiration, speech and swallow has been following, chest x-ray continued to show bilateral radicular opacities, no significant changes present, covert 19 testing has been negative, 02/25/2021, patient seen eval examined during the rounds labs reviewed medications reviewed care plan discussed with the staff at length patient is awake and alert, follows simple commands but has mild shortness of breath patient went into runs of A. fib with RVR, Cardizem has been started by [facility], for anticoagulation will resume Lovenox as platelet count is better and improved, her last PT OT to evaluate patient, patient remains nothing by mouth due to weak swallowing functions, patient remains on heparin for intermittent proximal atrial fibrillation 02/24/2021, patient seen and evaluated examined care plan discussed with the staff as well as the respiratory at length critical care time spent 35 minutes, patient was placed on CPAP of 5 pressure support and gradually titrated down to CPAP 5 and pressure support of 5, weaning parameters and arterial blood gases re viewed patient does well, proceed with extubation successfully done on 4 L oxygen slide wheezing is present we'll continue steroids breathing treatments and antibiotics, patient is not ready for oral we'll change to oral metaproterenol to IV, patient has intermittent runs of the A. fib with RVR, due to thrombocytopenia lobe in next is being held at this point of time 02/23/2021, patient seen eval examined during the rounds labs reviewed medications reviewed care plan discussed, patient remains on full ventilator support, discussed with RN and respiratory therapist patient likely has very small airway limiting air leak from the site of the ET tube, patient did well with CPAP and pressure support, would recommend to taper and DC the propofol drip do a CPAP and pressure support of trial started with CPAP 5 and pressure support of 10 and subsequently 5 and 5 and then obtain a blood gas and weaning parameters if patient does well and remains awake and alert will proceed with extubation him a chest x-ray reviewed as stable, reviewed potassium is 3.3 on potassium replacement protocol 02/22/2021, patient seen eval examined during the rounds labs reviewed medications reviewed patient remains on propofol, CPAP pressure support trial performed yesterday have been unsuccessful they were done on 5 of CPAP and pressure support of 5, we will stop the propofol today and developed pressure oneill pport trial of 10 with CPAP of 5 and 40% oxygen if tolerated well consider taking the tube out, he remains afebrile hemodynamically stable and stable oxygen saturation into mid 90s, labs are reviewed pH is 755 pCO2 29. 103, BUN/creatinine slightly up likely related to diuresis, 02/21/2021, patient seen eval examined during the rounds labs reviewed medications reviewed care plan discussed with the staff at length, patient is been down to 40% oxygen, been setting remains stable, propofol has been tapered to 15 mics now, patient is arousable, discussed with the respiratory therapist and nurse patient to go on CPAP pressure support. All drips stop the tube feed as well, will do weaning parameters, blood cultures have been negative, medications reviewed, chest x-ray stable ET tube slightly at the level of justo bilateral infiltrates are noted, noted respiratory alkalosis would recommend to do CPAP pressure support trial patient will automatically corrected 02/20/2021, patient seen eval examined during the rounds labs reviewed medications reviewed, patient is currently off of levo fed drip, euvolemic status appears to be present, however ventilator setting continued to have high FiO2 currently patient is on 60% oxygen over next 24 hours will try to wean down the oxygen, patient remains on broad-spectrum antibiotics no fever has been seen, urine output has been adequate, but patient has been replaced, radiographic studies labs reviewed care plan discussed with staff at length if patient is down to 40% and we will do a CPAP pressure support trial tomorrow morning, 2 feet can be initiated, 02/19/2021, patient seen eval examined during the rounds labs reviewed medications reviewed care plan discussed with the staff at length, patient remains on low dose of levo fed, unable to stop it as earlier this morning we stopped it but blood pressure dropped down requiring a reinitiation of levo fed, will require fluid bolus of the crystalloids 500 mL over 2 hours will be given, patient remains on full ventilator support currently patient is on FiO2 of 60%, with assist control rate of 20, tidal volume is 450, PEEP is 5, given hypotension cannot escalate the PEEP, first we'll try to taper off the levo fed then will taper the oxygen down by increasing PEEP, but cultures no growth so far, chest x-ray bilateral upper and mid lung field predominantly on the right side pneumonia stable ET tube, WBC have been lowered down to 12,000, arterial blood gas stable pO2 is 89, rash M is 3.2 BUN/creatinine improved to 20 and 1.03, currently patient is sedated with propofol drip, patient has a history of significant A. fib with RVR as well as moderate to severe mitral regurgitation, Patient is a 85-year-old [facility] resident brought into emergency department intubated on the field by EMS, she was having respiratory difficulties with argon of respiration, review of the records revealed that patient has a significant history of mood disorder depression hypertension and hypothyroidism, she has prior medical problems significant for atrial fibrillation not on any anticoagulation COPD heart failure dyslipidemia hypertension hypertensive cardiovascular disease and history of pulmonary hypertension history of stroke chronic kidney disease stage III, she used to smoke however stopped smoking several years ago, currently patient is on full ventilator support assist control of 20 breathing 20, PEEP of 5, 50% oxygen, tidal volume is 450, patient is on propofol 30 mics, hemodynamic status is stable patient is on levo fed 0.025, blood pressure is improved to 159/61, heart rate 63 saturation is 98%, EKG revealed left bundle-branch block, labs are significant for leukocytosis with WBC count is 16,000, hemoglobin and hematocrit 7.9 and 25, platelet count is 1 76,000, d-dimer is 4.86, lactic acid is up to 5.7 now came down to 2.2, subsequent 1 is 1.2, BUN/creatinine 27 1.19, coated 19 is negative, patient has received a dose of Lovenox and Zosyn and fluid boluses 1.5 L Objective - Vital Signs Vital signs: Vital Signs Temp 98.0 F 02/28/21 12:00 Pulse 98 02/28/21 16:24 Resp 22 02/28/21 14:00 BP 147/81 02/28/21 12:00 Pulse Ox 93 L 02/28/21 12:00 Intake & Output 02/27/21 02/28/21 02/28/21 18:59 06:59 18:59 Intake Total 341.18 300.949 552.59 Output Total 350 520 Balance -8.82 -219.051 552.59 Weight 80 kg 82.5 kg Intake: Intake, IV Titration 341.18 300.949 552.59 Amount Amiodarone 450 mg In 250 207.782 Dextrose 5% in Water 250 ml @ 0.5 MG/MIN 16.667 mls/hr IV .Q15H ANGELA Rx#: [id number] Diltiazem 125 mg In 93.167 125 Sodium Chloride 0.9% 100 ml @ 10 MG/HR 10 mls/hr IV .[id number] ANGELA Rx#: [id number] Heparin Sod,Pork in 0.45% 91.18 177.59 NaCl 25,000 unit In 0.45 % NaCl 1 250ml.bag @ 12 UNITS/KG/HR 6.12 mls/hr IV .Q24H ANGELA Rx#: [id number] Piperacillin-Tazobactam 3 100 .375 gm In Sodium Chloride 0.9% 100 ml @ 25 mls/hr IVPB Q8HR ANGELA Rx# :[id number] Sodium Chloride 0.9% 1, 150 000 ml @ 50 mls/hr IV . Q20H ANGELA Rx#:[id number] Oral 0 Output: Urine 350 520 Other: Voiding Method Indwelling Catheter Indwelling Catheter Indwelling Catheter # Bowel Movements 1 1 - Exam - Constitutional General appearance: average body habitus, disheveled, - EENT Eyes: PERRLA Ears: bilateral: normal - Neck Neck: lymphadenopathy Carotids: bilateral: upstroke normal - Respiratory Respiratory: bilateral: diminished - Cardiovascular Rhythm: regular Heart sounds: normal: S1, S2 - Gastrointestinal General gastrointestinal: decreased bowel sounds, distended, soft - Neurologic open eyes follow simple commands moving all 4 extremity - Labs CBC & Chem 7: 02/28/21 08:30 02/28/21 08:30 Labs: Abnormal Lab Results - Last 24 Hours (Table) 02/27/21 02/27/21 02/28/21 Range/Units 17:58 23:59 05:50 WBC (3.8-10.6) k/uL RBC (3.80-5.40) m/uL Hgb (11.4-16.0) gm/dL Hct (34.0-46.0) % MCHC (31.0-37.0) g/dL RDW (11.5-15.5) % Plt Count (150-450) k/uL Neutrophils # (1.3-7.7) k/uL APTT (22.0-30.0) sec Chloride (98-107) mmol/L BUN (7-17) mg/dL Glucose (74-99) mg/dL POC Glucose (mg/dL) 177 H 160 H 131 H (75-99) mg/dL Total Protein (6.3-8.2) g/dL Albumin (3.5-5.0) g/dL 02/28/21 02/28/21 02/28/21 Range/Units 08:30 08:30 08:30 WBC 17.8 H (3.8-10.6) k/uL RBC 2.60 L (3.80-5.40) m/uL Hgb 7.4 L (11.4-16.0) gm/dL Hct 24.3 L (34.0-46.0) % MCHC 30.3 L (31.0-37.0) g/dL RDW 16.2 H (11.5-15.5) % Plt Count 100 L (150-450) k/uL Neutrophils # 15.5 H (1.3-7.7) k/uL APTT 74.4 H (22.0-30.0) sec Chloride 114 H (98-107) mmol/L BUN 21 H (7-17) mg/dL Glucose 125 H (74-99) mg/dL POC Glucose (mg/dL) (75-99) mg/dL Total Protein 5.6 L (6.3-8.2) g/dL Albumin 3.0 L (3.5-5.0) g/dL 02/28/21 Range/Units 12:00 WBC (3.8-10.6) k/uL RBC (3.80-5.40) m/uL Hgb (11.4-16.0) gm/dL Hct (34.0-46.0) % MCHC (31.0-37.0) g/dL RDW (11.5-15.5) % Plt Count (150-450) k/uL Neutrophils # (1.3-7.7) k/uL APTT (22.0-30.0) sec Chloride (98-107) mmol/L BUN (7-17) mg/dL Glucose (74-99) mg/dL POC Glucose (mg/dL) 162 H (75-99) mg/dL Total Protein (6.3-8.2) g/dL Albumin (3.5-5.0) g/dL Assessment and Plan Assessment: Thrombocytopenia Unstable upper airway patient being kept nothing by mouth for risk of aspirat ion, formal swallow evaluation will be conducted by speech therapist later on today Paradoxical respiration especially in supine posture, would prefer to patient to stay upright on bed or sit on the chair Acute hypoxic respiratory failure Bilateral pneumonia hypokalemia Sepsis thrombocytopenia A. fib with RVR Chronic kidney disease Valvular heart disease with mitral regurgitation Altered mental status due to sepsis and pneumonia Baseline history of chronic atrial fibrillation heart failure Testing covidr 19 has been negative Plan: replace potassium as per protocol Keep nothing by mouth until he gets more definitive recommendation from speech and swallow Continue therapy for atrial fibrillation Monitor and observe platelet closely Echocardiogram results reviewed ejection fraction is 60%,, with mild to moderate aortic stenosis, severe pulmonary hypertension was noted right ventricle systolic pressure estimated to be 76, Broad-spectrum antibiotics Bronchodilators IV steroids Further plan of care and recommendation as per clinical response of the patient PT OT to evaluate and treat Speech and language following the patient Time with Patient: Greater than 30
--- NOTE | 2021-02-28 16:44 | P.GSCN ---
History of Present Illness Consult date: 02/28/21 History of present illness: CHIEF COMPLAINT: Worsening shortness of breath Reason for surgical consult possible PEG tube placement HISTORY OF PRESENT ILLNESS: This is a 85-year-old female with medical history of COPD, paroxysmal atrial fibrillation, hyperlipidemia, hypertension, secondary pulmonary hypertension, CHF, severe mitral regurg, moderate mitral stenosis and moderate tricuspid stenosis. Patient came into the emergency room with worsening shortness of breath she had evidence of acute hypoxic respiratory failure was admitted to the ICU with bilateral pneumonia with sepsis and atrial fibrillation with rapid ventricular response as well as COPD exacerbation. Patient is now on the telemetry floor and she is on 4 L of oxygen. Apparently patient had failed her swallow evaluation. And surgical service was consulted for possible Dobbhoff placement for nutrition support. Patient seen and examined with Dr. fong. And case was discussed with patient's son. And Dr. fong had recommended PEG tube placement. Son was agreeable. Patient had modified barium swallow evaluation done today and she did pass her swallow eval. Speech therapist was placing patient on a dysphagia level I diet. Patient did have stool for occult blood that was positive. Per nursing staff patient has been having looser black dark stools. She also reported that the patient did have some bleeding in the back the throat that they initially thought it was trauma due to her recent intubation. Her hemoglobin today is 7.4. Patient had been on IV heparin for her atrial fibrillation. This was discontinued due to patient's anemia and black stools. Patient will be scheduled for EGD tomorrow. PAST MEDICAL HISTORY: See list. PAST SURGICAL HISTORY: See list. MEDICATIONS: See list. ALLERGIES: See list. SOCIAL HISTORY: No illicit drug use. REVIEW OF SYSTEMS: CONSTITUTIONAL: Denies fever or chills. HEENT: Denies blurred vision, vision changes, or eye pain. Denies hemoptysis CARDIOVASCULAR: Denies chest pain or pressure. RESPIRATORY: No shortness of breath. GASTROINTESTINAL: See HPI for pertinent findings HEMATOLOGIC: Denies bleeding disorders. GENITOURINARY: Denies any blood in urine or increased urinary frequency. SKIN: Denies pruitis. Denies rash. PHYSICAL EXAM: VITAL SIGNS: Reviewed GENERAL: Well-developed in no acute distress. HEENT: No sclera icterus. Extraocular movements grossly intact. Moist buccal mucosa. Head is atraumatic, normocephalic. No nasal drainage. ABDOMEN: Soft. Nondistended. Nontender NEUROLOGIC: Alert and oriented. Cranial nerves II through XII grossly intact. LABORATORY DATA: WBC 17.8 hemoglobin 7.4 platelets 100 Albumin 3.0 IMAGING: ASSESSMENT: 1. Acute GI bleed with black tarry stools and anemia with a hemoglobin of 7.4 2. Moderate protein calorie malnutrition 3. Sepsis with pneumonia 4. Acute hypoxic respiratory failure had been requiring mechanical ventilation 5. Paroxysmal atrial fibrillation 6. Prior history of GI bleeding 7. Cardiac history 8. Chronic kidney disease 9. COPD exacerbation PLAN: -Patient scheduled for EGD tomorrow 03/01/[address] Fong due to anemia and black stools -Keep patient nothing by mouth after midnight -We'll continue to monitor patient's oral intake and assess if patient will require PEG tube placement at a later date -Start patient on Protonix 40 mg IV daily Thank you for this consultation Physician Pipe Organ Builder note has been reviewed by physician. Signing provider agrees with the documented findings, assessment, and plan of care. Past Medical History Past Medical History: Atrial Fibrillation, Asthma, Cancer, Heart Failure, COPD, CVA/TIA, Eye Disorder, GERD/Reflux, GI Bleed, Hyperlipidemia, Hypertension, Osteoarthritis (OA), Pneumonia, Renal Disease, Skin Disorder, Thyroid Disorder, Vascular Disorder Additional Past Medical History / Comment(s): Pt recently admitted to [facility] on 01/06/21 with exacerbation COPD/pne. Other hx: Lower GI bleed with acute blood loss anemia, thrombocytopenia, gastritis/duodenitis, 2001 colon cancer with surgery/chemo and radiation, chronic hypoxic respiratory failure, home O2 at 2L/NC ATC, pulmonary HTN, pleurisy, chronic kidney disease stage III, CVA with slight speech difficulty, heart murmur, glaucoma bilaterally, hypothyroid, rosacia, UTIs, urine stress incontinence, constipation, diverticular disease, benign polyps, arthritis multiple joints, chronic low back pain, past fall with L hip fracture and R patellar fracture, rib fracture, L humeral fracture with L shoulder pain, sinus problems, 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 done(donor site was abd), bilateral carpal tunnel releases, R patella fused d/t fracture, krista cataracts, colonoscopy/polypectomy Past Anesthesia/Blood Transfusion Reactions: No Reported Reaction Smoking Status: Former smoker - Past Family History Father Family Medical History: Liver Disease Additional Family Medical History / Comment(s): ETOH abuse - cirrhosis of the liver Mother Family Medical History: Vascular Disorder Additional Family Medical History / Comment(s): Brain aneurysm Medications and Allergies Home Medications Medication Instructions Recorded Confirmed Type Citalopram Hydrobromide [CeleXA] 20 mg PO DAILY 11/30/16 02/18/21 History rOPINIRole HCL [Requip] 2 mg PO HS 11/02/17 02/18/21 History Ferrous Sulfate [Feosol] 325 mg PO BID 12/25/18 02/18/21 History Ascorbic Acid [Vitamin C] 500 mg PO DAILY 12/16/20 02/18/21 History Latanoprost Ophth [Xalatan 0.005%] 1 drop BOTH EYES HS@199912/16/20 02/18/21 History Metoprolol Tartrate [Lopressor] 50 mg PO TID@0500,1300,2100 12/16/20 02/18/21 History Sennosides-Docusate Sodium 1 tab PO DAILY #1 tablet 12/22/20 02/18/21 Rx [Senokot-S] Aspirin 81 mg PO DAILY 01/06/21 02/18/21 History Levothyroxine Sodium [Synthroid] 112 mcg PO HS 01/06/21 02/18/21 History Losartan Potassium 100 mg PO DAILY 01/06/21 02/18/21 History Amiodarone [Cordarone] 200 mg PO DAILY tab 01/08/21 02/18/21 Rx Famotidine [Pepcid] 20 mg PO DAILY tab 01/09/21 02/18/21 Rx Furosemide [Lasix] 40 mg PO DAILY tab 01/09/21 02/18/21 Rx HYDROcodone/APAP 10-325MG [Paige 1 tab PO Q12H PRN #4 tab 01/09/21 02/18/21 Rx 10-325] Ipratropium-Albuterol Nebulize 3 ml INHALATION RT-Q4H PRN ml 01/09/21 02/18/21 Rx [Duoneb 0.5 mg-3 mg/3 ml Soln] Cholecalciferol [Vitamin D3 (25 25 mcg PO DAILY 02/18/21 02/18/21 History Mcg = 1000 Iu)] Spironolactone 25 mg PO DAILY 02/18/21 02/18/21 History traMADol HCl [Ultram] 50 mg PO Q6HR PRN 02/18/21 02/18/21 History Allergies Allergy/AdvReac Type Severity Reaction Status Date / Time codeine AdvReac does not Verified 02/18/21 06:[address] it makes her feel sulfamethoxazole AdvReac does not Verified 02/18/21 06:56 [From Bactrim] like the way it makes her feel trimethoprim [From Bactrim] AdvReac does not Verified 02/18/21 06:[address] it makes her feel Surgical - Exam Vital Signs Temp Pulse Resp BP Pulse Ox 98.4 F 74 18 172/63 99 02/18/21 03:25 02/18/21 03:25 02/18/21 03:25 02/18/21 03:25 02/18/21 03:25 Results - Labs 02/28/21 08:30 02/28/21 08:30 Abnormal Lab Results - Last 24 Hours (Table) 02/27/21 02/27/21 02/28/21 Range/Units 17:58 23:59 05:50 WBC (3.8-10.6) k/uL RBC (3.80-5.40) m/uL Hgb (11.4-16.0) gm/dL Hct (34.0-46.0) % MCHC (31.0-37.0) g/dL RDW (11.5-15.5) % Plt Count (150-450) k/uL Neutrophils # (1.3-7.7) k/uL APTT (22.0-30.0) sec Chloride (98-107) mmol/L BUN (7-17) mg/dL Glucose (74-99) mg/dL POC Glucose (mg/dL) 177 H 160 H 131 H (75-99) mg/dL Total Protein (6.3-8.2) g/dL Albumin (3.5-5.0) g/dL 02/28/21 02/28/21 02/28/21 Range/Units 08:30 08:30 08:30 WBC 17.8 H (3.8-10.6) k/uL RBC 2.60 L (3.80-5.40) m/uL Hgb 7.4 L (11.4-16.0) gm/dL Hct 24.3 L (34.0-46.0) % MCHC 30.3 L (31.0-37.0) g/dL RDW 16.2 H (11.5-15.5) % Plt Count 100 L (150-450) k/uL Neutrophils # 15.5 H (1.3-7.7) k/uL APTT 74.4 H (22.0-30.0) sec Chloride 114 H (98-107) mmol/L BUN 21 H (7-17) mg/dL Glucose 125 H (74-99) mg/dL POC Glucose (mg/dL) (75-99) mg/dL Total Protein 5.6 L (6.3-8.2) g/dL Albumin 3.0 L (3.5-5.0) g/dL 02/28/21 Range/Units 12:00 WBC (3.8-10.6) k/uL RBC (3.80-5.40) m/uL Hgb (11.4-16.0) gm/dL Hct (34.0-46.0) % MCHC (31.0-37.0) g/dL RDW (11.5-15.5) % Plt Count (150-450) k/uL Neutrophils # (1.3-7.7) k/uL APTT (22.0-30.0) sec Chloride (98-107) mmol/L BUN (7-17) mg/dL Glucose (74-99) mg/dL POC Glucose (mg/dL) 162 H (75-99) mg/dL Total Protein (6.3-8.2) g/dL Albumin (3.5-5.0) g/dL Diabetes panel 02/28/21 Range/Units 08:30 Sodium 143 (137-145) mmol/L Potassium 3.5 (3.5-5.1) mmol/L Chloride 114 H (98-107) mmol/L Carbon Dioxide 23 (22-30) mmol/L BUN 21 H (7-17) mg/dL Creatinine 0.87 (0.52-1.04) mg/dL Glucose 125 H (74-99) mg/dL Calcium 8.7 (8.4-10.2) mg/dL AST 24 (14-36) U/L ALT 33 (4-34) U/L Alkaline Phosphatase 61 (38-126) U/L Total Protein 5.6 L (6.3-8.2) g/dL Albumin 3.0 L (3.5-5.0) g/dL Calcium panel 02/28/21 Range/Units 08:30 Calcium 8.7 (8.4-10.2) mg/dL Albumin 3.0 L (3.5-5.0) g/dL Pituitary panel 02/28/21 Range/Units 08:30 Sodium 143 (137-145) mmol/L Potassium 3.5 (3.5-5.1) mmol/L Chloride 114 H (98-107) mmol/L Carbon Dioxide 23 (22-30) mmol/L BUN 21 H (7-17) mg/dL Creatinine 0.87 (0.52-1.04) mg/dL Glucose 125 H (74-99) mg/dL Calcium 8.7 (8.4-10.2) mg/dL Adrenal panel 02/28/21 Range/Units 08:30 Sodium 143 (137-145) mmol/L Potassium 3.5 (3.5-5.1) mmol/L Chloride 114 H (98-107) mmol/L Carbon Dioxide 23 (22-30) mmol/L BUN 21 H (7-17) mg/dL Creatinine 0.87 (0.52-1.04) mg/dL Glucose 125 H (74-99) mg/dL Calcium 8.7 (8.4-10.2) mg/dL Total Bilirubin 1.0 (0.2-1.3) mg/dL AST 24 (14-36) U/L ALT 33 (4-34) U/L Alkaline Phosphatase 61 (38-126) U/L Total Protein 5.6 L (6.3-8.2) g/dL Albumin 3.0 L (3.5-5.0) g/dL
--- NOTE | 2021-02-28 17:28 | FL ---
EXAMINATION TYPE: FL barium swallow w video DATE OF EXAM: 02/28/2021 CLINICAL HISTORY: 85-year-old female Dysphagia. Patient with colon, recent extubation with trouble sw allowing and absent swallow at the bedside. TECHNIQUE: Deglutition study is performed utilizing thin liquid barium, honey and nectar thick liqui d barium, barium thick applesauce, and barium ground cracker. COMPARISON: None. Total fluoroscopy time: 35 seconds. Total images: None. Real-time fluoroscopy support was utilized by speech pathology. FINDINGS: Swallow initiation was delayed with bolus free spilling to the level of the vallecula. Normal mastic ation is seen with barium ground cracker consistency. There is moderate transient penetration with n ectar liquid. Ground solids results in moderate to severe vallecular residuals. No aspiration was alana ntified. IMPRESSION: Delayed swallow and moderate transient penetration with nectar liquids. Moderate to severe vallecular residuals with ground solids. No aspiration seen. Please refer to speech therapist notes for further details if necessary.
[2021-02-28] MEDS: PANTOPRAZOLE 40 MG/10 ML VIAL IVP SCH (18:04)
[2021-02-28 18:35] LABS: Glucose,Whole Blood 172 mg/dL (75-99)
[2021-02-28 20:23] LABS: Glucose,Whole Blood 204 mg/dL (75-99)
[2021-02-28] MEDS: LATANOPROST 0.005% OPHTH DROPS 2.5 ML BTL BOTH EYES SCH (20:44)
[2021-02-28] MEDS: LEVOTHYROXINE 112 MCG TAB OG-TUBE SCH (20:44)
--- NOTE | 2021-02-28 21:07 | P.PN ---
Subjective Progress Note Date: 02/28/21 Principal diagnosis: Respiratory distress Increase in WBC today, likely reactive she is on solumedrol. Hemoglobin 7.4 (down from 8.1). Platelets have increased to 100K today, She was seen by surgery regarding tube feeding due to failed swallow evaluation. Peg tube is planned. Platelet counts are adequate for procedure. Continues with cough (occasionally able to produce), anticoagulation on hold due to concern of GI bleeding, evidenced with black stools and anemia. EGD is planned. Ferritin was adequate, however if evidence of bleeding continues, parental iron can be administered. Objective - Vital Signs Vital signs: Vital Signs Temp 98.3 F 02/28/21 16:45 Pulse 100 02/28/21 19:36 Resp 20 02/28/21 16:45 BP 133/64 02/28/21 16:45 Pulse Ox 93 L 02/28/21 16:45 Intake & Output 02/28/21 02/28/21 03/01/21 06:59 18:59 06:59 Intake Total 300.949 552.59 1120 Output Total 520 400 Balance -219.051 152.59 1120 Weight 82.5 kg Intake: Intake, IV Titration 300.949 552.59 1000 Amount Amiodarone 450 mg In 207.782 Dextrose 5% in Water 250 ml @ 0.5 MG/MIN 16.667 mls/hr IV .Q15H [facility] Rx#: [id number] Diltiazem 125 mg In 93.167 125 Sodium Chloride 0.9% 100 ml @ 10 MG/HR 10 mls/hr IV .[id number] [facility] Rx#: [id number] Heparin Sod,Pork in 0.45% 177.59 NaCl 25,000 unit In 0.45 % NaCl 1 250ml.bag @ 12 UNITS/KG/HR 6.12 mls/hr IV .Q24H [facility] Rx#: [id number] Piperacillin-Tazobactam 3 100 100 .375 gm In Sodium Chloride 0.9% 100 ml @ 25 mls/hr IVPB Q8HR [facility] Rx# :[id number] Potassium Chloride 10 meq 300 In Water For Injection 1 100ml.bag @ 100 mls/hr IVPB Q1H [facility] Rx#: [id number] Sodium Chloride 0.9% 1, 150 600 000 ml @ 50 mls/hr IV . Q20H [facility] Rx#:[id number] Oral 120 Output: Urine 520 400 Other: Voiding Method Indwelling Catheter Indwelling Catheter # Bowel Movements 1 1 - Exam - Constitutional General appearance: average body habitus, disheveled, successfully weaned and extubated - EENT Eyes: PERRLA Ears: bilateral: normal - Neck Neck: lymphadenopathy Carotids: bilateral: upstroke normal - Respiratory Respiratory: bilateral: diminished - Cardiovascular Rhythm: regular Heart sounds: normal: S1, S2 - Gastrointestinal General gastrointestinal: decreased bowel sounds, distended, soft - Neurologic open eyes follow simple commands moving all 4 extremity - Labs CBC & Chem 7: 02/28/21 08:30 02/28/21 08:30 Labs: Abnormal Lab Results - Last 24 Hours (Table) 02/27/21 02/28/21 02/28/21 Range/Units 23:59 05:50 08:30 WBC 17.8 H (3.8-10.6) k/uL RBC 2.60 L (3.80-5.40) m/uL Hgb 7.4 L (11.4-16.0) gm/dL Hct 24.3 L (34.0-46.0) % MCHC 30.3 L (31.0-37.0) g/dL RDW 16.2 H (11.5-15.5) % Plt Count 100 L (150-450) k/uL Neutrophils # 15.5 H (1.3-7.7) k/uL APTT (22.0-30.0) sec Chloride (98-107) mmol/L BUN (7-17) mg/dL Glucose (74-99) mg/dL POC Glucose (mg/dL) 160 H 131 H (75-99) mg/dL Total Protein (6.3-8.2) g/dL Albumin (3.5-5.0) g/dL 02/28/21 02/28/21 02/28/21 Range/Units 08:30 08:30 12:00 WBC (3.8-10.6) k/uL RBC (3.80-5.40) m/uL Hgb (11.4-16.0) gm/dL Hct (34.0-46.0) % MCHC (31.0-37.0) g/dL RDW (11.5-15.5) % Plt Count (150-450) k/uL Neutrophils # (1.3-7.7) k/uL APTT 74.4 H (22.0-30.0) sec Chloride 114 H (98-107) mmol/L BUN 21 H (7-17) mg/dL Glucose 125 H (74-99) mg/dL POC Glucose (mg/dL) 162 H (75-99) mg/dL Total Protein 5.6 L (6.3-8.2) g/dL Albumin 3.0 L (3.5-5.0) g/dL 02/28/21 Range/Units 18:33 WBC (3.8-10.6) k/uL RBC (3.80-5.40) m/uL Hgb (11.4-16.0) gm/dL Hct (34.0-46.0) % MCHC (31.0-37.0) g/dL RDW (11.5-15.5) % Plt Count (150-450) k/uL Neutrophils # (1.3-7.7) k/uL APTT (22.0-30.0) sec Chloride (98-107) mmol/L BUN (7-17) mg/dL Glucose (74-99) mg/dL POC Glucose (mg/dL) 172 H (75-99) mg/dL Total Protein (6.3-8.2) g/dL Albumin (3.5-5.0) g/dL Assessment and Plan Plan: Assessment and Plan Bicytopenia: Normocytic Anemia: 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 You can see where patient's counts have decreased during episodes of illness/admissions. Cytopenia workup has been ordered as no history of hematological work up in this medical record. HIT antibody - negative Transfuse to keep hemoglobin 7 or higher unless symptomatic. Hgb 7.4 (down from 8.1) today Transfuse to keep platelets greater than 10,000 unless bleeding, platelets hve increased to 100K today, anticoagulant held per cardiology for bleeding Monitor for DIC Leukocytosis: - Increased WBC today, likely reactive -Steroids Acute Hypoxic Respiratory: - Bilateral pneumonia Chronic atrial fibrillation heart failure - Cardiology Following - AC therapy held due to dark stool concern for GI bleeding PLan: - PEg tube Gen Surgery - EGD - Above are ok with platelet count greater than 50K, today 100K
[2021-03-01] MEDS: DILTIAZEM 125 MG in SODIUM CHLORIDE 0.9% 100 ML IV SCH (00:59)
[2021-03-01] MEDS: PIPERACILLIN-TAZOBACTAM 3.375 GM in SODIUM CHLORIDE 0.9% 100 ML IVPB SCH ×4 (01:12→23:29)
[2021-03-01] MEDS: NITROGLYCERIN OINT 1 INCH/GM PACKET TOPICAL SCH ×4 (01:13→23:30)
[2021-03-01 06:27] LABS: Glucose,Whole Blood 189 mg/dL (75-99)
[2021-03-01] MEDS: LACTATED RINGERS 1,000 ML IV SCH (06:27)
[2021-03-01] MEDS: INSULIN ASPART (NovoLOG) 100 UNIT/ML VIAL SQ SCH ×4 (06:42→21:13)
[2021-03-01] MEDS: ALBUTEROL HFA INHALER INHALATION SCH ×4 (09:00→19:44)
[2021-03-01] MEDS: methylPREDNISolone SOD SUCCI 40 MG/ML 1 ML VIAL IV SCH ×2 (09:01→21:13)
[2021-03-01] MEDS: PANTOPRAZOLE 40 MG/10 ML VIAL IVP SCH (09:02)
[2021-03-01] MEDS: CHLORHEXIDINE GLUCONATE 15 ML CUP MUCOUS MEM SCH ×4 (09:02→21:14)
[2021-03-01] MEDS: METOPROLOL TARTRATE 5 MG/5 ML VIAL IVP SCH (09:02)
--- NOTE | 2021-03-01 11:56 | P.PN ---
Subjective HISTORY OF PRESENT ILLNESS: 02/27/2021 This is an 85-year-old female who presented to the emergency room secondary to shortness of breath. Patient was found to be in respiratory distress. Patient was placed on mechanical ventilation. She was extubated over the weekend. She remains NPO and is scheduled for a swallow study per nursing. She remains on IV heparin and IV amio at 0.5mg/min. Patient remains in atrial fibrillation with uncontrolled ventricular rates in the 120s. Patient is on 3 L nasal cannula with oxygen saturations greater than 90%. Blood pressure 138/66. She is afebrile. Echocardiogram completed reveals ejection fraction 55-60%, mild aortic regurgitation, mild aortic stenosis, severe mitral regurgitation, [id number] mitral stenosis, severe tricuspid regurgitation, severe pulmonary hypertension, and small generalized pericardial effusion. 02/28/2021 Patient examined at the bedside this morning by Dr. Spence. Patient remains in atrial fibrillation with fairly controlled heart rates. She remains NPO.She remains on IV amio at 0.5mg/min and Cardizem at 10mg/hr. Nursing reports she has been having some blood in her mouth. She is on a heparin drip. Hemoglobin 7.4, down from 8.1. 03/01 Parient seen and examined. Patient denies any chest pain. Feels that she is somewhat better with her SOB. Had a video swallow study and able to tolerate meds. Telemetry reviewed with Atrial flutter with controlled rates in the 70- 80's. PHYSICAL EXAM: VITAL SIGNS: Reviewed. GENERAL: Well-developed in no acute distress. NECK: Supple. No JVD or thyromegaly LUNGS: Respirations even and unlabored. Lungs diminished bilaterally. Patient with upper airway congestion and audible gurgling on examination. HEART: Irregular rate and rhythm. S1 and S2 heard. Systolic murmur noted. EXTREMITIES: Normal range of motion. No clubbing or cyanosis. Peripheral pulses intact. No lower extremity edema ASSESSMENT: Acute hypoxic respiratory failure requiring mechanical ventilation Bilateral pneumonia Leukocytosis Valvular heart disease Small generalized pericardial effusion Severe pulmonary hypertension Paroxysmal atrial fibrillation with CVR, not on intermediate card tender anticoagulation due to history of GI bleeding Typical atrial flutter Acute on chronic diastolic heart failure, EF 55-60%, resolved COPD Chronic kidney disease Anemia PLAN: Todays labs pending, awaiting repeat hgb. If Hgb improves, would consider placing back on anticoagulation. Change amio drip to PO amio loading 400mg bid Change Cardizem drip to PO cardizem Continue telemetry monitoring Further recommendations pending patient course Objective - Vital Signs Vital signs: Vital Signs Temp 97.7 F 03/01/21 08:00 Pulse 111 H 03/01/21 08:00 Resp 20 03/01/21 08:00 BP 132/57 03/01/21 08:00 Pulse Ox 87 L 03/01/21 08:00 Intake & Output 02/28/21 03/01/21 03/01/21 18:59 06:59 18:59 Intake Total 802.59 1245 Output Total 400 800 Balance 402.59 445 Weight 84 kg Intake: Intake, IV Titration 802.59 1125 Amount Amiodarone 450 mg In 250 Dextrose 5% in Water 250 ml @ 0.5 MG/MIN 16.667 mls/hr IV .Q15H [facility] Rx#: [id number] Diltiazem 125 mg In 125 125 Sodium Chloride 0.9% 100 ml @ 10 MG/HR 10 mls/hr IV .[id number] [facility] Rx#: [id number] Heparin Sod,Pork in 0.45% 177.59 NaCl 25,000 unit In 0.45 % NaCl 1 250ml.bag @ 12 UNITS/KG/HR 6.12 mls/hr IV .Q24H [facility] Rx#: [id number] Piperacillin-Tazobactam 3 100 100 .375 gm In Sodium Chloride 0.9% 100 ml @ 25 mls/hr IVPB Q8HR [facility] Rx# :[id number] Potassium Chloride 10 meq 300 In Water For Injection 1 100ml.bag @ 100 mls/hr IVPB Q1H [facility] Rx#: [id number] Sodium Chloride 0.9% 1, 150 600 000 ml @ 50 mls/hr IV . Q20H [facility] Rx#:[id number] Oral 120 Output: Urine 400 800 Other: Voiding Method Indwelling Catheter Indwelling Catheter # Bowel Movements 1 1 - Labs CBC & Chem 7: 02/28/21 08:30 02/28/21 08:30 Labs: Abnormal Lab Results - Last 24 Hours (Table) 02/28/21 02/28/21 02/28/21 Range/Units 12:00 18:33 20:21 POC Glucose (mg/dL) 162 H 172 H 204 H (75-99) mg/dL 03/01/21 Range/Units 06:19 POC Glucose (mg/dL) 189 H (75-99) mg/dL
[2021-03-01 12:10] LABS: Glucose,Whole Blood 142 mg/dL (75-99)
--- NOTE | 2021-03-01 13:58 | P.PN ---
Subjective Progress Note Date: 03/01/21 Principal diagnosis: Respiratory distress Increased oxygen need today, EGD was rescheduled. Objective - Vital Signs Vital signs: Vital Signs Temp 97.7 F 03/01/21 08:00 Pulse 108 H 03/01/21 12:00 Resp 22 03/01/21 12:00 BP 137/56 03/01/21 12:00 Pulse Ox 88 L 03/01/21 11:15 Intake & Output 02/28/21 03/01/21 03/01/21 18:59 06:59 18:59 Intake Total 802.59 1245 Output Total 400 800 Balance 402.59 445 Weight 84 kg Intake: Intake, IV Titration 802.59 1125 Amount Amiodarone 450 mg In 250 Dextrose 5% in Water 250 ml @ 0.5 MG/MIN 16.667 mls/hr IV .Q15H [facility] Rx#: [id number] Diltiazem 125 mg In 125 125 Sodium Chloride 0.9% 100 ml @ 10 MG/HR 10 mls/hr IV .[id number] [facility] Rx#: [id number] Heparin Sod,Pork in 0.45% 177.59 NaCl 25,000 unit In 0.45 % NaCl 1 250ml.bag @ 12 UNITS/KG/HR 6.12 mls/hr IV .Q24H [facility] Rx#: [id number] Piperacillin-Tazobactam 3 100 100 .375 gm In Sodium Chloride 0.9% 100 ml @ 25 mls/hr IVPB Q8HR [facility] Rx# :[id number] Potassium Chloride 10 meq 300 In Water For Injection 1 100ml.bag @ 100 mls/hr IVPB Q1H [facility] Rx#: [id number] Sodium Chloride 0.9% 1, 150 600 000 ml @ 50 mls/hr IV . Q20H [facility] Rx#:[id number] Oral 120 Output: Urine 400 800 Other: Voiding Method Indwelling Catheter Indwelling Catheter Indwelling Catheter # Bowel Movements 1 1 - Exam - Constitutional General appearance: average body habitus, disheveled, successfully weaned and extubated - EENT Eyes: PERRLA Ears: bilateral: normal - Neck Neck: lymphadenopathy Carotids: bilateral: upstroke normal - Respiratory Respiratory: bilateral: diminished, increased respiratory distress today. - Cardiovascular Rhythm: regular Heart sounds: normal: S1, S2 - Gastrointestinal General gastrointestinal: decreased bowel sounds, distended, soft - Neurologic open eyes follow simple commands moving all 4 extremity - Labs CBC & Chem 7: 03/01/21 12:18 03/01/21 12:18 Labs: Abnormal Lab Results - Last 24 Hours (Table) 02/28/21 02/28/21 03/01/21 Range/Units 18:33 20:21 06:19 POC Glucose (mg/dL) 172 H 204 H 189 H (75-99) mg/dL 03/01/21 Range/Units 12:05 POC Glucose (mg/dL) 142 H (75-99) mg/dL Assessment and Plan Plan: Assessment and Plan Bicytopenia: Normocytic Anemia: 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 You can see where patient's counts have decreased during episodes of illness/admissions. Cytopenia workup has been ordered as no history of hematological work up in this medical record. HIT antibody - negative Transfuse to keep hemoglobin 7 or higher unless symptomatic. Hgb 7.3 Transfuse to keep platelets greater than 10,000 unless bleeding, platelets hve increased to 100K today, anticoagulant held per cardiology for bleeding Monitor for DIC Leukocytosis: - Increased WBC today, likely reactive -Steroids - In picture of increased hypoxia, keyes culture and repeat chest xray. - Consider CTA Acute Hypoxic Respiratory: WOrsening today - Bilateral pneumonia - Increased Oxygenation need today, Pulmonary following. Repeat imaging. Chronic atrial fibrillation heart failure - Cardiology Following - AC therapy held due to dark stool concern for GI bleeding PLan: - Repeat anemia work-up - Add B12 for deficiency - Repeat keyes cultures and chest xray for leukocytosis and increased hypoxia - CBC, CMP in am
[2021-03-01 14:08] LABS: Albumin 3.2 g/dL (3.5-5.0); Calcium 8.9 mg/dL (8.4-10.2); Magnesium 2.4 mg/dL (1.6-2.3); Potassium 3.8 mmol/L (3.5-5.1); Total Bilirubin 1.4 mg/dL (0.2-1.3); Total Protein 5.8 g/dL (6.3-8.2)
[2021-03-01 14:11] LABS: Anisocytosis Slight; Basophils # (A) 0.2 k/uL (0-0.2); Basophils % (A) 1 %; Eosinophils % (A) 0 %; HCT 23.5 % (34.0-46.0); HGB 7.3 gm/dL (11.4-16.0); Hypochromasia Marked; Lymphocytes # (A) 0.5 k/uL (1.0-4.8); Lymphocytes % (A) 3 %; MCH 30.1 pg (25.0-35.0); MCHC 30.9 g/dL (31.0-37.0); MCV 97.5 fL (80.0-100.0); Macrocytosis Slight; Mean Platelet Volume 10.3; Monocytes # (A) 0.6 k/uL (0-1.0); Monocytes % (A) 3 %; Neutrophils # (A) 17.5 k/uL (1.3-7.7); Neutrophils % (A) 93 %; Poikilocytosis Slight; RBC 2.41 m/uL (3.80-5.40); RDW 16.8 % (11.5-15.5); WBC 18.8 k/uL (3.8-10.6)
[2021-03-01 14:23] LABS: Platelet Count 97 k/uL (150-450)
[2021-03-01] MEDS ORDERED: IV FLUID CONTINUATION 1,000 ML IV ONE (14:34)
--- NOTE | 2021-03-01 15:15 | P.PN ---
Subjective Progress Note Date: 03/01/21 CHIEF COMPLAINT: Worsening shortness of breath HISTORY OF PRESENT ILLNESS: Surgical service is following and regards to patient's GI bleed. She was scheduled for EGD today with Dr. Fong. However, anesthesia would not clear patient for surgery due to low oxygen saturation. EGD will be rescheduled for tomorrow. WBC 18.8 hemoglobin 7.3 platelets 97 Afebrile. Patient had passed her modified barium swallow evaluation yesterday. And had been started on diet. PHYSICAL EXAM: VITAL SIGNS: Reviewed. GENERAL: Well-developed in no acute distress. HEENT: No sclera icterus. Extraocular movements grossly intact. Moist buccal mucosa. Head is atraumatic, normocephalic. ABDOMEN: Soft. Nondistended. Nontender. NEUROLOGIC: Alert and oriented. Cranial nerves II through XII grossly intact. ASSESSMENT: 1. Acute GI bleed with black tarry stools and anemia with a hemoglobin of 7.4 2. Moderate protein calorie malnutrition 3. Sepsis with pneumonia 4. Acute hypoxic respiratory failure had been requiring mechanical ventilation 5. Paroxysmal atrial fibrillation 6. Prior history of GI bleeding 7. Cardiac history 8. Chronic kidney disease 9. COPD exacerbation PLAN: -EGD will be rescheduled for tomorrow, 03/02/[address] fong -Keep patient nothing by mouth after midnight -Continue IV Protonix -Also will continue to monitor patient during this admission for possible PEG tube placement. Physician Personnel Placement Specialist note has been reviewed by physician. Signing provider agrees with the documented findings, assessment, and plan of care. Objective - Vital Signs Vital signs: Vital Signs Temp 97.7 F 03/01/21 08:00 Pulse 108 H 03/01/21 12:00 Resp 22 03/01/21 12:00 BP 137/56 03/01/21 12:00 Pulse Ox 88 L 03/01/21 11:15 Intake & Output 02/28/21 03/01/21 03/01/21 18:59 06:59 18:59 Intake Total 802.59 1245 Output Total 400 800 Balance 402.59 445 Weight 84 kg Intake: Intake, IV Titration 802.59 1125 Amount Amiodarone 450 mg In 250 Dextrose 5% in Water 250 ml @ 0.5 MG/MIN 16.667 mls/hr IV .Q15H [facility] Rx#: [id number] Diltiazem 125 mg In 125 125 Sodium Chloride 0.9% 100 ml @ 10 MG/HR 10 mls/hr IV .[id number] [facility] Rx#: [id number] Heparin Sod,Pork in 0.45% 177.59 NaCl 25,000 unit In 0.45 % NaCl 1 250ml.bag @ 12 UNITS/KG/HR 6.12 mls/hr IV .Q24H [facility] Rx#: [id number] Piperacillin-Tazobactam 3 100 100 .375 gm In Sodium Chloride 0.9% 100 ml @ 25 mls/hr IVPB Q8HR [facility] Rx# :[id number] Potassium Chloride 10 meq 300 In Water For Injection 1 100ml.bag @ 100 mls/hr IVPB Q1H [facility] Rx#: [id number] Sodium Chloride 0.9% 1, 150 600 000 ml @ 50 mls/hr IV . Q20H [facility] Rx#:[id number] Oral 120 Output: Urine 400 800 Other: Voiding Method Indwelling Catheter Indwelling Catheter Indwelling Catheter # Bowel Movements 1 1 - Labs CBC & Chem 7: 03/01/21 12:18 03/01/21 12:18 Labs: Abnormal Lab Results - Last 24 Hours (Table) 02/28/21 02/28/21 03/01/21 Range/Units 18:33 20:21 06:19 WBC (3.8-10.6) k/uL RBC (3.80-5.40) m/uL Hgb (11.4-16.0) gm/dL Hct (34.0-46.0) % MCHC (31.0-37.0) g/dL RDW (11.5-15.5) % Plt Count (150-450) k/uL Neutrophils # (1.3-7.7) k/uL Lymphocytes # (1.0-4.8) k/uL Chloride (98-107) mmol/L Carbon Dioxide (22-30) mmol/L BUN (7-17) mg/dL Glucose (74-99) mg/dL POC Glucose (mg/dL) 172 H 204 H 189 H (75-99) mg/dL Magnesium (1.6-2.3) mg/dL Total Bilirubin (0.2-1.3) mg/dL Total Protein (6.3-8.2) g/dL Albumin (3.5-5.0) g/dL 03/01/21 03/01/21 03/01/21 Range/Units 12:05 12:18 12:18 WBC 18.8 H (3.8-10.6) k/uL RBC 2.41 L (3.80-5.40) m/uL Hgb 7.3 L (11.4-16.0) gm/dL Hct 23.5 L (34.0-46.0) % MCHC 30.9 L (31.0-37.0) g/dL RDW 16.8 H (11.5-15.5) % Plt Count 97 L (150-450) k/uL Neutrophils # 17.5 H (1.3-7.7) k/uL Lymphocytes # 0.5 L (1.0-4.8) k/uL Chloride 116 H (98-107) mmol/L Carbon Dioxide 20 L (22-30) mmol/L BUN 22 H (7-17) mg/dL Glucose 142 H (74-99) mg/dL POC Glucose (mg/dL) 142 H (75-99) mg/dL Magnesium 2.4 H (1.6-2.3) mg/dL Total Bilirubin 1.4 H (0.2-1.3) mg/dL Total Protein 5.8 L (6.3-8.2) g/dL Albumin 3.2 L (3.5-5.0) g/dL
--- NOTE | 2021-03-01 15:21 | P.PN ---
Subjective From records: This is a very pleasant 85-year-old patient of Dr. Maya. Currently at [facility]. Chronic stable medical conditions include COPD, paroxysmal atrial fibrillation, hypertension, hyperlipidemia, GERD, osteoarthritis, secondary pulmonary hypertension, hypothyroid, rosacea, osteoarthritis, urine stress incontinence,CHF from diastolic dysfunction EF 55- 60%, severe mitral regurgitation, moderate mitral stenosis, moderate tricuspid regurgitation, secondary pulmonary hypertension. Diverticulosis. at her baseline uses a cane and a walker. EMS was called out as patient had been lethargic all day. Patient is compla ining that she is not feeling well. One hour prior to the EMS arrival patient became increasingly short of breath. Patient at baseline is 3 L of nasal cannula. And patient became less responsive and breathing worsen. 4 days ago patient had a negative COVID testing. When EMS arrived patient's found to have agonal respiration. Telemetry showed sinus rhythm. Patient is intubated. This afternoon patient has FiO2 15 of PEEP of 5. Drips included propofol and norepinephrine. Telemetry shows sinus rhythm. Admitted with bilateral pneumonia, acute respiratory arrest on ventilator support. Started on IV Zosyn, Levothroid, propofol, IV Solu-Medrol, bronchodilators. Extubated February 24. Today: Laying in bed. Awake. Following commands. Finding it difficult to phonate. Congested cough. Very poor oral hygiene Subjective: 02/28/2021 This is a pleasant 85 years old female with multiple medical problems was admitted to the ICU for bilateral pneumonia with respiration dispensed suspected and paroxysmal atrial fibrillation with RVR, acute COPD exacerbation, bicytopenia and valvular heart disease. Originally patient is from [facility]. She got extubated and transported to the general medical floor at [facility]. Today patient lying in bed slightly tachypneic, very weak, she answers some questions with dyspnea. She denies chest pain or palpitation or dizziness. She still complaining of from lateral cough. She still nothing by mouth and there is some bleeding in her throat while she is on heparin drip with hemoglobin slightly trended down to 8.1 down to 7.4, cardiology team discontinued her heparin drip due to bleeding. Her CTA on admission showing no PE with extensive bilateral consolidation on 02/19. She is on 4 L oxygen compared to 3 l/m yesterday with a breathing rate of 22 breaths per minute, her tachycardia slightly better today. Also hematology and pulmonary team on the case She remains on amiodarone and Cardizem drips, some Medrol 40 mg twice daily, Zosyn and normal cyanotic 50 mL/h. Heparin drip was discontinued 03/01/2021 Patient remains moderately cystic, she still tachypnea on face back in 6 L of oxygen however during the day her oxygen delivery was dropped to 4-5 L/m. She still slightly tachypneic at 20-22, as her for her to talk, she scan of the drowsy with a coughing. Swallow evaluation done since yesterday showing delayed swallow with moderate to severe residual and no aspiration. There is also evidence of GI bleed to heparin drip was stopped, her hemoglobin is stable at 7.3. We'll start iron pills. Surgical team are planning for EGD and possible PEG tube placement tomorrow. Patient still tachycardic around 111. 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 Patient remains a Doll catheter. She denies chest pain or dizziness or diarrhea or palpitation. She still had persistent leukocytosis of 13 K, platelets are round 97K. She is also on Solu-Medrol 40 mg twice daily, doxepin last cycling and Zosyn and Protonix Review of systems CONSTITUTIONAL: No fever, no malaise, no fatigue. HEENT: No recent visual problems or hearing problems. Denied any sore throat. CARDIOVASCULAR: No orthopnea, PND, no palpitations, no syncope. PULMONARY: No chest wall tenderness, no hemoptysis. GASTROINTESTINAL: No diarrhea, no nausea, no vomiting, no abdominal pain. Norm oactive bowel sounds. NEUROLOGICAL: No headaches, no weakness, no numbness. Active Medications Generic Name Dose Route Start Last Admin Trade Name Freq PRN Reason Stop Dose Admin Acetaminophen 650 mg 02/18/21 06:10 Acetaminophen Suppository 650 Mg Supp RECTAL Q4HR PRN Fever And/ Or Mild Pain Acetaminophen 650 mg 02/18/21 06:10 Acetaminophen Tab 325 Mg Tab PO Q4HR PRN Fever and/or Mild Pain Acetazolamide 250 mg 02/22/21 21:00 02/28/21 20:44 Acetazolamide 250 Mg Tab PO 250 mg BID ANGELA Administration Albuterol Sulfate 2 puff 03/01/21 09:30 03/01/21 12:14 Albuterol Hfa Inhaler INHALATION 2 puff RT-QID ANGELA Administration Amiodarone HCl 400 mg 03/01/21 12:00 Amiodarone 200 Mg Tab PO BID ANGELA Chlorhexidine Gluconate 15 ml 02/27/21 13:45 03/01/21 09:02 Chlorhexidine Gluconate 15 Ml Cup MUCOUS MEM 15 ml QID ANGELA Administration Diltiazem HCl 60 mg 03/01/21 13:00 Diltiazem Oral 60 Mg Tab PO QID ANGELA Doxycycline Monohydrate 100 mg 02/18/21 21:00 02/28/21 20:42 Doxycycline 100 Mg Cap PO 100 mg BID ANGELA Administration Piperacillin Sod/Tazobactam 100 mls @ 25 mls/hr 02/18/21 16:00 03/01/21 09:00 Sod 3.375 gm/ Sodium Chloride IVPB 25 mls/hr Q8HR ANGELA Administration Sodium Chloride 1,000 mls @ 50 mls/hr 02/27/21 14:00 02/28/21 16:21 Saline 0.9% IV 50 mls/hr .Q20H ANGELA Administration Lactated Ringer's 1,000 mls @ 20 mls/hr 03/01/21 06:15 03/01/21 06:27 Lactated Ringers IV 20 mls/hr .Q24H ANGELA Administration Insulin Aspart 0 unit 02/28/21 21:00 03/01/21 12:43 Insulin Aspart (Novolog) 100 Unit/Ml Vial SQ Not Given ACHS [facility] Protocol Latanoprost 1 drops 02/18/21 20:00 02/28/21 20:44 Latanoprost 0.005% Ophth Drops 2.5 Ml Btl BOTH EYES 1 drops HS@2000 ANGELA Administration Levothyroxine Sodium 112 mcg 02/18/21 21:00 02/28/21 20:44 Levothyroxine 112 Mcg Tab OG-TUBE 112 mcg HS ANGELA Administration Methylprednisolone Sodium Succinate 40 mg 02/28/21 09:00 03/01/21 09:01 Methylprednisolone Sod Succi 40 Mg/Ml 1 Ml Vial IV 40 mg Q12H ANGELA Administration Miscellaneous Information 1 each 02/19/21 06:23 Potassium Replacement Protocol 1 Each Misc MISCELLANE DAILY PRN Per Protocol Protocol Miscellaneous Information 1 each 02/21/21 05:00 Magnesium Replacement Protocol 1 Each [facility] MISCELLANE DAILY PRN Per Protocol Protocol Miscellaneous Information 1 each 02/22/21 04:51 Potassium Replacement Protocol 1 Each [facility] MISCELLANE DAILY PRN Per Protocol Protocol Morphine Sulfate 3 mg 02/18/21 06:10 Morphine Sulfate 4 Mg/Ml Syringe IV Q2HR PRN Pain Scale 6 to 7 Naloxone HCl 0.2 mg 02/18/21 06:10 Naloxone 0.4 Mg/Ml 1 Ml Vial IV Q2M PRN Opioid Reversal Nitroglycerin 1 inch 02/26/21 09:00 03/01/21 09:00 Nitroglycerin Oint 1 Inch/Gm Packet TOPICAL Not Given Q8HR ANGELA Pantoprazole Sodium 40 mg 02/28/21 16:45 03/01/21 09:02 Pantoprazole 40 Mg/10 Ml Vial IVP 40 mg DAILY ANGELA Administration Ropinirole HCl 2 mg 02/18/21 21:00 02/28/21 20:43 Ropinirole Hcl 1 Mg Tab PO 2 mg HS ANGELA Administration Senna/Docusate Sodium 1 each 02/19/21 09:00 02/28/21 07:28 Sennosides-Docusate Sodium 1 Each Tab PO Not Given DAILY ANGELA Sodium Chloride 10 ml 02/22/21 15:47 Sodium Chloride 0.9% Flush 10 Ml Syringe IV Q4HR PRN PICC Line Sodium Chloride 10 ml 03/01/21 09:00 03/01/21 09:15 Sodium Chloride 0.9% Flush 10 Ml Syringe IV 10 ml WEEKLY ANGELA Administration Sodium Chloride 20 ml 02/22/21 15:47 Sodium Chloride 0.9% Flush 10 Ml Syringe IV Q4HR PRN PICC Line Objective - Vital Signs Vital signs: Vital Signs Temp 97.7 F 03/01/21 08:00 Pulse 108 H 03/01/21 12:00 Resp 22 03/01/21 12:00 BP 137/56 03/01/21 12:00 Pulse Ox 88 L 03/01/21 11:15 Intake & Output 02/28/21 03/01/21 03/01/21 18:59 06:59 18:59 Intake Total 802.59 1245 Output Total 400 800 Balance 402.59 445 Weight 84 kg Intake: Intake, IV Titration 802.59 1125 Amount Amiodarone 450 mg In 250 Dextrose 5% in Water 250 ml @ 0.5 MG/MIN 16.667 mls/hr IV .Q15H ANGELA Rx#: [id number] Diltiazem 125 mg In 125 125 Sodium Chloride 0.9% 100 ml @ 10 MG/HR 10 mls/hr IV .[id number] ANGELA Rx#: [id number] Heparin Sod,Pork in 0.45% 177.59 NaCl 25,000 unit In 0.45 % NaCl 1 250ml.bag @ 12 UNITS/KG/HR 6.12 mls/hr IV .Q24H ANGELA Rx#: [id number] Piperacillin-Tazobactam 3 100 100 .375 gm In Sodium Chloride 0.9% 100 ml @ 25 mls/hr IVPB Q8HR ANGELA Rx# :[id number] Potassium Chloride 10 meq 300 In Water For Injection 1 100ml.bag @ 100 mls/hr IVPB Q1H ANGELA Rx#: [id number] Sodium Chloride 0.9% 1, 150 600 000 ml @ 50 mls/hr IV . Q20H ANGELA Rx#:[id number] Oral 120 Output: Urine 400 800 Other: Voiding Method Indwelling Catheter Indwelling Catheter Indwelling Catheter # Bowel Movements 1 1 - Exam GENERAL: The patient is alert and oriented x3, not in any acute distress. Well developed, well nourished. HEENT: Pupils are round and equally reacting to light. EOMI. No scleral icterus. No conjunctival pallor. Normocephalic, atraumatic. No pharyngeal erythema. No thyromegaly. CARDIOVASCULAR: S1 and S2 present. No murmurs, rubs, or gallops. -PULMONARY: Chest is clear to auscultation, no wheezing . Bilateral basal crepitation ABDOMEN: Soft, nontender, nondistended, normoactive bowel sounds. No palpable organomegaly. MUSCULOSKELETAL: No joint swelling or deformity. EXTREMITIES: No cyanosis, clubbing, or pedal edema. NEUROLOGICAL: Gross neurological examination did not reveal any focal deficits. SKIN: No rashes. no petechiae. - Labs CBC & Chem 7: 03/01/21 12:18 03/01/21 12:18 Labs: Abnormal Lab Results - Last 24 Hours (Table) 02/28/21 02/28/21 03/01/21 Range/Units 18:33 20:21 06:19 WBC (3.8-10.6) k/uL RBC (3.80-5.40) m/uL Hgb (11.4-16.0) gm/dL Hct (34.0-46.0) % MCHC (31.0-37.0) g/dL RDW (11.5-15.5) % Plt Count (150-450) k/uL Neutrophils # (1.3-7.7) k/uL Lymphocytes # (1.0-4.8) k/uL Chloride (98-107) mmol/L Carbon Dioxide (22-30) mmol/L BUN (7-17) mg/dL Glucose (74-99) mg/dL POC Glucose (mg/dL) 172 H 204 H 189 H (75-99) mg/dL Magnesium (1.6-2.3) mg/dL Total Bilirubin (0.2-1.3) mg/dL Total Protein (6.3-8.2) g/dL Albumin (3.5-5.0) g/dL 03/01/21 03/01/21 03/01/21 Range/Units 12:05 12:18 12:18 WBC 18.8 H (3.8-10.6) k/uL RBC 2.41 L (3.80-5.40) m/uL Hgb 7.3 L (11.4-16.0) gm/dL Hct 23.5 L (34.0-46.0) % MCHC 30.9 L (31.0-37.0) g/dL RDW 16.8 H (11.5-15.5) % Plt Count 97 L (150-450) k/uL Neutrophils # 17.5 H (1.3-7.7) k/uL Lymphocytes # 0.5 L (1.0-4.8) k/uL Chloride 116 H (98-107) mmol/L Carbon Dioxide 20 L (22-30) mmol/L BUN 22 H (7-17) mg/dL Glucose 142 H (74-99) mg/dL POC Glucose (mg/dL) 142 H (75-99) mg/dL Magnesium 2.4 H (1.6-2.3) mg/dL Total Bilirubin 1.4 H (0.2-1.3) mg/dL Total Protein 5.8 L (6.3-8.2) g/dL Albumin 3.2 L (3.5-5.0) g/dL Assessment and Plan Assessment: -bilateral aspiration pneumonia. -Acute hypoxic respiratory failure, secondary to pneumonia patient went into respiratory some improvement -Dysphagia following extubation, with contribution from poor oral hygiene. -Acute COPD exacerbation in an [id number] -Severe mitral regurgitation, moderate mitral stenosis, moderate tricuspid regurgitation -Secondary moderate pulmonary hypertension from COPD and CHF Possible bleeding from her throat while on heparin drip which is stopped now- -Essential hypertension -GERD -Primary osteoarthritis -Hypothyroid -Chronic urinary stress incontinence -Chronic diverticulosis -Chronic gait dysfunction uses walker -Left bundle-branch block, chronic -Paroxysmal atrial fibrillation, currently sinus rhythm. -New-onset of thrombocytopenia. Platelet count above 50. -Metabolic alkalosis likely from volume contraction -Acute kidney injury likely prerenal from diuresis -Acute metabolic encephalopathy multifactorial Plan: This is a pleasant 85 years old female who presents with pneumonia and COPD and A. fib. Continue with amiodarone and Cardizem oral medication per cardiology team. Discontinue anticoagulation due to bleeding from her throat with a slight drop in hemoglobin. Continue with antibiotics and steroids and gentle hydration. Several consultants on the case including pulmonary, cardiology and hematology/oncology and follow-up with a recommendation EGD per surgery and PEG tube placement Labs and medication were reviewed.. Continue same treatment. Continue with symptomatic treatment. Resume home medication. Monitor lytes and vitals. DVT and GI prophylaxis. Further recommendationsn as per clinical course of the patient DVT prophylaxis: No anticoagulation for possible bleeding from her throat GI Prophylaxis: Pepcid PT/OT: Pending Prognosis is guarded
--- NOTE | 2021-03-01 15:49 | P.PN ---
Subjective Progress Note Date: 03/01/21 Principal diagnosis: Acute hypoxic respiratory failure Bilateral pneumonia Sepsis Chronic kidney disease Altered mental status due to sepsis and pneumonia Baseline history of chronic atrial fibrillation heart failure Testing covid 19 has been negative 03/01/2021, patient seen eval reexamined during the rounds labs reviewed medications reviewed, patient sitting upright in chair breathing slightly better, and denies any chest pain, patient has been on 6 L oxygen shortness of breath still there, intermittent gurgling of secretions however noted in posterior pharynx, patient evaluated by aspiration studies, patient has significant delay in swallowing function with moderate to severe residual no active aspiration however is seen, hemoglobin dropped to 7.3, heparin drip is on hold, 02/28/2021, patient seen eval examined remains on 4 L oxygen she has a tendency of pooling secretions during sleep, able to make a good cough sitting upright and awake, speech and swallowing evaluating the patient for definitive recommendation about oral nutrition and support, ongoing dyspnea and shortness of breath and intermittent cough is present labs reviewed, A. fib with RVR i mproved, patient however remains on Cardizem drip and amiodarone along with broad-spectrum antibiotics 02/27/2021, patient seen eval examined during the rounds care plan discussed with RN, patient to much better when sitting upright and during awake swallowing function is still marginal, formal swallowing evaluation are being conducted by speech therapist later on today, patient currently on 3 L nasal cannula, remains on heparin and Cardizem drip, she has been started on Cardizem drip yesterdaymy labs reviewed BUN/creatinine is 24/1.04, 02/26/2021, patient seen eval examined during the rounds labs reviewed medications reviewed care plan discussed the staff at length, patient on the nebulizer treatment otherwise she is on 4 L, patient has been up on the chair most of the day yesterday and at nighttime now on bed, paradoxical respiration appeared to be more pronounced and prominent supine, patient remains nothing by mouth as she has been risk for aspiration, speech and swallow has been following, chest x-ray continued to show bilateral radicular opacities, no significant changes present, covert 19 testing has been negative, 02/25/2021, patient seen eval examined during the rounds labs reviewed medications reviewed care plan discussed with the staff at length patient is awake and alert, follows simple commands but has mild shortness of breath patient went into runs of A. fib with RVR, Cardizem has been started by cardiovascular services, for anticoagulation will resume Lovenox as platelet count is better and improved, her last PT OT to evaluate patient, patient remains nothing by mouth due to weak swallowing functions, patient remains on heparin for intermittent proximal atrial fibrillation 02/24/2021, patient seen and evaluated examined care plan discussed with the st aff as well as the respiratory at length critical care time spent 35 minutes, patient was placed on CPAP of 5 pressure support and gradually titrated down to CPAP 5 and pressure support of 5, weaning parameters and arterial blood gases reviewed patient does well, proceed with extubation successfully done on 4 L oxygen slide wheezing is present we'll continue steroids breathing treatments and antibiotics, patient is not ready for oral we'll change to oral metaproterenol to IV, patient has intermittent runs of the A. fib with RVR, due to thrombocytopenia lobe in next is being held at this point of time 02/23/2021, patient seen eval examined during the rounds labs reviewed medications reviewed care plan discussed, patient remains on full ventilator support, discussed with RN and respiratory therapist patient likely has very small airway limiting air leak from the site of the ET tube, patient did well with CPAP and pressure support, would recommend to taper and DC the propofol drip do a CPAP and pressure support of trial started with CPAP 5 and pressure support of 10 and subsequently 5 and 5 and then obtain a blood gas and weaning parameters if patient does well and remains awake and alert will proceed with extubation him a chest x-ray reviewed as stable, reviewed potassium is 3.3 on potassium replacement protocol 02/22/2021, patient seen eval examined during the rounds labs reviewed medications reviewed patient remains on propofol, CPAP pressure support trial performed yesterday have been unsuccessful they were done on 5 of CPAP and pressure support of 5, we will stop the propofol today and developed pressure support trial of 10 with CPAP of 5 and 40% oxygen if tolerated well consider taking the tube out, he remains afebrile hemodynamically stable and stable oxygen saturation into mid 90s, labs are reviewed pH is 755 pCO2 29. 103, BUN/creatinine slightly up likely related to diuresis, 02/21/2021, patient seen eval examined during the rounds labs reviewed medications reviewed care plan discussed with the staff at length, patient is been down to 40% oxygen, been setting remains stable, propofol has been tapered to 15 mics now, patient is arousable, discussed with the respiratory therapist and nurse patient to go on CPAP pressure support. All drips stop the tube feed as well, will do weaning parameters, blood cultures have been negative, medications reviewed, chest x-ray stable ET tube slightly at the level of justo bilateral infiltrates are noted, noted respiratory alkalosis would recommend to do CPAP pressure support trial patient will automatically corrected 02/20/2021, patient seen eval examined during the rounds labs reviewed medications reviewed, patient is currently off of levo fed drip, euvolemic status appears to be present, however ventilator setting continued to have high FiO2 currently patient is on 60% oxygen over next 24 hours will try to wean down the oxygen, patient remains on broad-spectrum antibiotics no fever has been seen, urine output has been adequate, but patient has been replaced, radiographic studies labs reviewed care plan discussed with staff at length if patient is down to 40% and we will do a CPAP pressure support trial tomorrow morning, 2 feet can be initiated, 02/19/2021, patient seen eval examined during the rounds labs reviewed medications reviewed care plan discussed with the staff at length, patient re mario on low dose of levo fed, unable to stop it as earlier this morning we stopped it but blood pressure dropped down requiring a reinitiation of levo fed, will require fluid bolus of the crystalloids 500 mL over 2 hours will be given, patient remains on full ventilator support currently patient is on FiO2 of 60%, with assist control rate of 20, tidal volume is 450, PEEP is 5, given hypotension cannot escalate the PEEP, first we'll try to taper off the levo fed then will taper the oxygen down by increasing PEEP, but cultures no growth so far, chest x-ray bilateral upper and mid lung field predominantly on the right side pneumonia stable ET tube, WBC have been lowered down to 12,000, arterial blood gas stable pO2 is 89, rash M is 3.2 BUN/creatinine improved to 20 and 1.03, currently patient is sedated with propofol drip, patient has a history of significant A. fib with RVR as well as moderate to severe mitral regurgitation, Patient is a 85-year-old [facility] resident brought into emergency department intubated on the field by EMS, she was having respiratory difficulties with argon of respiration, review of the records revealed that patient has a significant history of mood disorder depression hypertension and hypothyroidism, she has prior medical problems significant for atrial fibrillation not on any anticoagulation COPD heart failure dyslipidemia hypertension hypertensive ca rdiovascular disease and history of pulmonary hypertension history of stroke chronic kidney disease stage III, she used to smoke however stopped smoking several years ago, currently patient is on full ventilator support assist control of 20 breathing 20, PEEP of 5, 50% oxygen, tidal volume is 450, patient is on propofol 30 mics, hemodynamic status is stable patient is on levo fed 0.025, blood pressure is improved to 159/61, heart rate 63 saturation is 98%, EKG revealed left bundle-branch block, labs are significant for leukocytosis with WBC count is 16,000, hemoglobin and hematocrit 7.9 and 25, platelet count is 1 76,000, d-dimer is 4.86, lactic acid is up to 5.7 now came down to 2.2, subsequent 1 is 1.2, BUN/creatinine 27 1.19, coated 19 is negative, patient has received a dose of Lovenox and Zosyn and fluid boluses 1.5 L Objective - Vital Signs Vital signs: Vital Signs Temp 97.7 F 03/01/21 08:00 Pulse 111 H 03/01/21 08:00 Resp 20 03/01/21 08:00 BP 132/57 03/01/21 08:00 Pulse Ox 87 L 03/01/21 08:00 Intake & Output 02/28/21 03/01/21 03/01/21 18:59 06:59 18:59 Intake Total 802.59 1245 Output Total 400 800 Balance 402.59 445 Weight 84 kg Intake: Intake, IV Titration 802.59 1125 Amount Amiodarone 450 mg In 250 Dextrose 5% in Water 250 ml @ 0.5 MG/MIN 16.667 mls/hr IV .Q15H [facility] Rx#: [id number] Diltiazem 125 mg In 125 125 Sodium Chloride 0.9% 100 ml @ 10 MG/HR 10 mls/hr IV .[id number] [facility] Rx#: [id number] Heparin Sod,Pork in 0.45% 177.59 NaCl 25,000 unit In 0.45 % NaCl 1 250ml.bag @ 12 UNITS/KG/HR 6.12 mls/hr IV .Q24H [facility] Rx#: [id number] Piperacillin-Tazobactam 3 100 100 .375 gm In Sodium Chloride 0.9% 100 ml @ 25 mls/hr IVPB Q8HR [facility] Rx# :[id number] Potassium Chloride 10 meq 300 In Water For Injection 1 100ml.bag @ 100 mls/hr IVPB Q1H [facility] Rx#: [id number] Sodium Chloride 0.9% 1, 150 600 000 ml @ 50 mls/hr IV . Q20H [facility] Rx#:[id number] Oral 120 Output: Urine 400 800 Other: Voiding Method Indwelling Catheter Indwelling Catheter Indwelling Catheter # Bowel Movements 1 1 - Exam - Constitutional General appearance: average body habitus, disheveled, - EENT Eyes: PERRLA Ears: bilateral: normal - Neck Neck: lymphadenopathy Carotids: bilateral: upstroke normal - Respiratory Respiratory: bilateral: diminished - Cardiovascular Rhythm: regular Heart sounds: normal: S1, S2 - Gastrointestinal General gastrointestinal: decreased bowel sounds, distended, soft - Neurologic open eyes follow simple commands moving all 4 extremity - Labs CBC & Chem 7: 03/01/21 12:18 03/01/21 12:18 Labs: Abnormal Lab Results - Last 24 Hours (Table) 02/28/21 02/28/21 03/01/21 Range/Units 18:33 20:21 06:19 POC Glucose (mg/dL) 172 H 204 H 189 H (75-99) mg/dL 03/01/21 Range/Units 12:05 POC Glucose (mg/dL) 142 H (75-99) mg/dL Assessment and Plan Assessment: Acute hypoxic respiratory failure Bilateral aspiration pneumonia Thrombocytopenia Unstable upper airway patient being kept nothing by mouth for risk of aspiration, Paradoxical respiration especially in supine posture, would prefer to patient to stay upright on bed or sit on the chair hypokalemia Sepsis thrombocytopenia A. fib with RVR Chronic kidney disease Valvular heart disease with mitral regurgitation Altered mental status due to sepsis and pneumonia Baseline history of chronic atrial fibrillation heart failure Testing covidr 19 has been negative Plan: replace potassium as per protocol Keep nothing by mouth until he gets more definitive recommendation from speech and swallow Continue therapy for atrial fibrillation Monitor and observe platelet closely Echocardiogram results reviewed ejection fraction is 60%,, with mild to moderate aortic stenosis, severe pulmonary hypertension was noted right ventricle systolic pressure estimated to be 76, Broad-spectrum antibiotics Bronchodilators IV steroids Further plan of care and recommendation as per clinical response of the patient PT OT to evaluate and treat Speech and language following the patient Time with Patient: Greater than 30
[2021-03-01] MEDS: SENNOSIDES-DOCUSATE SODIUM 1 EACH TAB PO SCH (15:58)
[2021-03-01] MEDS: AMIODARONE 200 MG TAB PO SCH ×2 (16:02→21:12)
[2021-03-01] MEDS: DILTIAZEM ORAL 60 MG TAB PO SCH ×3 (16:02→21:14)
[2021-03-01] MEDS: DOXYCYCLINE 100 MG CAP PO SCH ×2 (16:03→21:13)
[2021-03-01] MEDS: acetaZOLAMIDE 250 MG TAB PO SCH ×2 (16:03→21:12)
[2021-03-01 17:15] LABS: Glucose,Whole Blood 198 mg/dL (75-99)
[2021-03-01 20:26] LABS: Glucose,Whole Blood 166 mg/dL (75-99)
[2021-03-01] MEDS: LEVOTHYROXINE 112 MCG TAB OG-TUBE SCH (21:13)
[2021-03-01] MEDS: LATANOPROST 0.005% OPHTH DROPS 2.5 ML BTL BOTH EYES SCH (21:28)
--- NOTE | 2021-03-01 22:56 | XR ---
EXAMINATION TYPE: XR chest 1V DATE OF EXAM: 03/01/2021 CLINICAL HISTORY: sob. TECHNIQUE: Portable frontal view of the chest. COMPARISON: 02/26/2021 FINDINGS: Left PICC distal tip over the distal superior vena cava. Unchanged cardiac megaly. Diffuse patchy interstitial opacities, mildly worsened over the left midlung. No pleural effusion or pneumot horax. Old fracture deformity of the left humerus. IMPRESSION: Diffuse patchy interstitial opacities bilaterally, which are mildly increased over the left mid lung versus 02/26/2021 comparison.
[2021-03-02 05:07] LABS: Appearance,Urine Clear (Clear); Bilirubin,Urine Negative (Negative); Blood,Urine Small (Negative); Color,Urine Yellow; Glucose,Urine (UA) Negative (Negative); Ketones,Urine Negative (Negative); Leukocyte Esterase,Urine Negative (Negative); Mucus,Urine Rare /hpf; Nitrite,Urine Negative (Negative); PH, Urine 5.5 (5.0-8.0); Protein,Urine Trace (Negative); RBC,Urine 11 /hpf (0-5); Specific Gravity,Urine 1.027 (1.001-1.035); Urobilinogen,Urine <2.0 mg/dL (<2.0); WBC,Urine 4 /hpf (0-5)
[2021-03-02 06:26] LABS: Glucose,Whole Blood 185 mg/dL (75-99)
[2021-03-02] MEDS: INSULIN ASPART (NovoLOG) 100 UNIT/ML VIAL SQ SCH ×4 (06:39→21:33)
[2021-03-02] MEDS: PIPERACILLIN-TAZOBACTAM 3.375 GM in SODIUM CHLORIDE 0.9% 100 ML IVPB SCH ×4 (08:20→23:34)
[2021-03-02] MEDS: PANTOPRAZOLE 40 MG/10 ML VIAL IVP SCH ×3 (08:21→20:06)
[2021-03-02] MEDS: methylPREDNISolone SOD SUCCI 40 MG/ML 1 ML VIAL IV SCH ×2 (08:21→20:05)
[2021-03-02] MEDS: AMIODARONE 200 MG TAB PO SCH (08:22)
[2021-03-02] MEDS: CHLORHEXIDINE GLUCONATE 15 ML CUP MUCOUS MEM SCH ×4 (08:22→20:07)
[2021-03-02] MEDS: acetaZOLAMIDE 250 MG TAB PO SCH ×2 (08:22→20:03)
[2021-03-02] MEDS: DILTIAZEM ORAL 60 MG TAB PO SCH (08:22)
[2021-03-02] MEDS: CYANOCOBALAMIN 1,000 MCG/ML 1 ML VIAL SQ SCH (08:22)
[2021-03-02] MEDS: NITROGLYCERIN OINT 1 INCH/GM PACKET TOPICAL SCH ×3 (08:23→23:36)
[2021-03-02] MEDS: DOXYCYCLINE 100 MG CAP PO SCH (08:23)
[2021-03-02] MEDS: SENNOSIDES-DOCUSATE SODIUM 1 EACH TAB PO SCH (08:23)
[2021-03-02] MEDS: ALBUTEROL HFA INHALER INHALATION SCH ×4 (08:25→19:23)
[2021-03-02 09:02] LABS: Anisocytosis Slight; Basophils # (A) 0.1 k/uL (0-0.2); Basophils % (A) 0 %; Eosinophils % (A) 0 %; Hypochromasia Marked; Lymphocytes # (A) 0.6 k/uL (1.0-4.8); Lymphocytes % (A) 3 %; MCH 28.2 pg (25.0-35.0); MCHC 28.9 g/dL (31.0-37.0); MCV 97.4 fL (80.0-100.0); Macrocytosis Slight; Monocytes # (A) 0.5 k/uL (0-1.0); Monocytes % (A) 3 %; Neutrophils # (A) 17.5 k/uL (1.3-7.7); Neutrophils % (A) 93 %; Poikilocytosis Slight; RBC 2.36 m/uL (3.80-5.40); RDW 17.7 % (11.5-15.5); Reticulocyte % 4.2 % (0.5-2.0); WBC 18.8 k/uL (3.8-10.6)
--- NOTE | 2021-03-02 09:05 | CDI ---
Documentation Clarification Form Date: 03/02/2021 08:37:30 AM From: Lety ByersRasmussenJANEEN, CCDS Admit Date: 02/18/2021 06:10:00 AM Patient Name: Nadira Lopez Visit Number: [id number] Discharge Date: ATTENTION: The Clinical Documentation Specialists (CDI) and [facility] Coding Staff appreciate your assistance in clarifying documentation. Please respond to the clarification below the line at the bottom and electronically sign. The CDI & [facility] Coding staff will review the response and follow-up if needed. Please note: Queries are made part of the Legal Health Record. If you have any questions, please contact the author of this message via ITS. Dr. Carlos Prieto. Sheet: Conflicting documentation has been found in the medical record regarding the diagnosis of Sepsis. As attending physician, please provide clarification. Per the 02/18 Pulmonary Consult and subsequent Pulmonary Progress Notes: Sepsis. Altered mental status due to sepsis and pneumonia. Per the 02/19 Cardiology Consult: Underlying sepsis related to urosepsis. Per the 02/20 Attending Physician Query response: Sepsis, ruled out. Per the 02/28 Surgery Consult: Sepsis with pneumonia. History/Risk Factors per the 02/18 H/P: COPD, Paroxysmal Atrial Fibrillation, Hypertension, Hyperlipidemia, GERD, Osteoarthritis, Secondary pulmonary hypertension, Hypothyroid, Rosacea, Urine stress incontinence, Diastolic CHF EF 55-60%, Severe mitral regurgitation, Moderate mitral stenosis, Moderate tricuspid regurgitation, Diverticulosis. Clinical Indicators: Presented to the ED from a care home on 02/18 via EMS with SOB & in Cardiac Arrest, intubated by EMS in the field. ED Clinical Impression: Acute Respiratory Failure, Elevated D Dimer, Lactic Acidosis & Leukocytosis. 02/18 VS: T 98.4, P 74 - 46; R 18 - 26; ;BP 172/63 - 69/32 - 170/88; PO 99 - 95 Vent, BMI: 34.5 02/20 VS: T 95.4, P 58, R 20, BP 158/63, PO 100 Vent 02/18 LAB: WBC 16.1, Hgb 7.9, APTT 20.1, D Dimer 4.86, BUN 27, Cr 1.19, Glucose 248, Lactic Acid 2.2 - 1.2, Total Protein 5.8, Albumin 3.0. COVID Negative. 02/18 Blood Gas ABG: pO2 208, Total CO2 26, O2 Sat 100.0 02/18 Blood Cultures x2: Final @ 144 Hrs: Negative. 02/20 LAB: WBC 5.0, Hgb 6.7, Pl Ct 85, Lymph 0.5, Cl 111, CO2 21, Glucose 164, Calcium 7.7, Total Protein 4.8, Albumin 2.4, Procalcitonin 0.55 02/20 Blood Gas: pH 7.49, pCO2 32, Total CO2 26, O2 Sat 99.2 02/18 CXR: Extensive bilateral pulmonary infiltrates, worse on left. 02/18 CT Chest: No evidence of pulmonary embolism. Extensive pulmonary airspace consolidation and atelectasis. Bilateral pleural effusions. Lung disease is mostly new compared to old exam. Heart is increased compared to old exam. Congestive heart failure is possible. Compression fracture of T11 not changed compared to chest x-ray 01/09/2021. 02/21 CXR: Bilateral interstitial and patchy opacities persist. Neither patchy pulmonary edema or multifocal pneumonia. Worsening left basilar airspace disease. Treatment 02/18: IV Ativan x1, IV Morphine x1, IV Propofol, IV Levophed, IV fluid 1,000 mls @ 999 mls/hr q1H, IV fluid 500 mls @ 999 mls/hr q31M, IV Zosyn, Insulin sq, Lovenox sq, IV Pepcid, INH Duoneb, po Vibramycin, IV Solumedrol. 02/20 Transfused 1 unit PRBCs. Please clarify which diagnosis is most appropriate: [ ] Sepsis is ruled out [ ] Sepsis Present on Admission, please specify cause if known: [ ] Sepsis Not Present on Admission [ ] Sepsis with Severe Sepsis Present on Admission [ ] Sepsis with Severe Sepsis Not Present on Admission [ ] Sepsis with Severe Sepsis with Septic Shock Present on Admission [ ] Sepsis with Severe Sepsis with Septic Shock Not Present on Admission [ ] Other (please specify) [ ] Unable to determine (Template Last Revised: January 2021) no sepsis MTDD
[2021-03-02 09:14] LABS: Albumin 3.2 g/dL (3.5-5.0); Magnesium 2.4 mg/dL (1.6-2.3); Potassium 3.7 mmol/L (3.5-5.1); Total Bilirubin 1.5 mg/dL (0.2-1.3); Total Protein 5.9 g/dL (6.3-8.2)
[2021-03-02 09:16] LABS: HGB 6.7 gm/dL (11.4-16.0)
[2021-03-02 09:27] LABS: Platelet Count 88 k/uL (150-450)
[2021-03-02] MEDS ORDERED: DILTIAZEM 5 MG/ML 5 ML VIAL IVP STA (09:52)
[2021-03-02] MEDS ORDERED: DILTIAZEM ORAL 30 MG TAB PO STA (09:52)
[2021-03-02] MEDS ORDERED: FUROSEMIDE 10 MG/ML 4 ML VIAL IV STA (10:13)
[2021-03-02 10:58] LABS: INR 1.1 (<1.2); Prothrombin Time 11.9 sec (9.0-12.0)
[2021-03-02 11:08] LABS: Partial Thromboplastin Time 18.4 sec (22.0-30.0)
[2021-03-02] MEDS ORDERED: DILTIAZEM DRIP BOLUS FROM BAG 1 MG SOLN IV ONE (11:44)
--- NOTE | 2021-03-02 11:48 | P.PN ---
Subjective HISTORY OF PRESENT ILLNESS: 02/27/2021 This is an 85-year-old female who presented to the emergency room secondary to shortness of breath. Patient was found to be in respiratory distress. Patient was placed on mechanical ventilation. She was extubated over the weekend. She remains NPO and is scheduled for a swallow study per nursing. She remains on IV heparin and IV amio at 0.5mg/min. Patient remains in atrial fibrillation with uncontrolled ventricular rates in the 120s. Patient is on 3 L nasal cannula with oxygen saturations greater than 90%. Blood pressure 138/66. She is afebrile. Echocardiogram completed reveals ejection fraction 55-60%, mild aortic regurgitation, mild aortic stenosis, severe mitral regurgitation, [id number] mitral stenosis, severe tricuspid regurgitation, severe pulmonary hypertension, and small generalized pericardial effusion. 02/28/2021 Patient examined at the bedside this morning by Dr. Spence. Patient remains in atrial fibrillation with fairly controlled heart rates. She remains NPO.She remains on IV amio at 0.5mg/min and Cardizem at 10mg/hr. Nursing reports she has been having some blood in her mouth. She is on a heparin drip. Hemoglobin 7.4, down from 8.1. 03/01 Parient seen and examined. Patient denies any chest pain. Feels that she is somewhat better with her SOB. Had a video swallow study and able to tolerate meds. Telemetry reviewed with Atrial flutter with controlled rates in the 70- 80's. 03/02 Patient seen and examined. Patient was attempted to be transitioned to oral medications as she was initially taking some medications however has had worsened status with inability to take oral medications. Therefore her metoprol ol was stopped. She was attempted with Cardizem push however heart rates continue to be in the 120s and 130s. Her hemoglobin did decrease below 7 and packed red blood cells were ordered. She is lethargic and not answering questions however following some commands. She does have oral secretions which she appears to be unable to clear. There were recommendations for endoscopy however procedure was canceled yesterday secondary to clincal status. PHYSICAL EXAM: VITAL SIGNS: Reviewed. GENERAL: Well-developed, ill appearing, unable to clear oral secretions with mucous/saliva down her mouth NECK: Supple. No JVD or thyromegaly LUNGS: Lungs diminished bilaterally. Patient with upper airway congestion and audible gurgling on examination. HEART: Irregular rate and rhythm. S1 and S2 heard. Systolic murmur noted. EXTREMITIES: Normal range of motion. No clubbing or cyanosis. Peripheral pulses intact. 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 Hemoglobin below 7 and blood transfusion ordered. Patient unable to take her oral medications and therefore we will change back to amiodarone drip and Cardizem drip. No anticoagulation secondary to anemia. Prognosis guarded and patient appears to be deteriorating. Continue with supportive care. Objective - Vital Signs Vital signs: Vital Signs Temp 98 F 03/02/21 04:30 Pulse 116 H 03/02/21 04:30 Resp 19 03/02/21 04:30 BP 137/71 03/02/21 04:30 Pulse Ox 92 L 03/02/21 04:30 Intake & Output 03/01/21 03/02/21 03/02/21 18:59 06:59 18:59 Intake Total 125 Output Total 500 500 Balance -500 -375 Weight 85.5 kg Intake: Oral 125 Output: Urine 500 100 Stool 400 Other: Voiding Method Indwelling Catheter Indwelling Catheter - Labs CBC & Chem 7: 03/02/21 07:49 03/02/21 07:49 Labs: Abnormal Lab Results - Last 24 Hours (Table) 03/01/21 03/01/21 03/01/21 Range/Units 12:05 12:18 12:18 WBC 18.8 H (3.8-10.6) k/uL RBC 2.41 L (3.80-5.40) m/uL Hgb 7.3 L (11.4-16.0) gm/dL Hct 23.5 L (34.0-46.0) % MCHC 30.9 L (31.0-37.0) g/dL RDW 16.8 H (11.5-15.5) % Plt Count 97 L (150-450) k/uL Neutrophils # 17.5 H (1.3-7.7) k/uL Lymphocytes # 0.5 L (1.0-4.8) k/uL Retic Count (0.5-2.0) % APTT (22.0-30.0) sec Sodium (137-145) mmol/L Chloride 116 H (98-107) mmol/L Carbon Dioxide 20 L (22-30) mmol/L BUN 22 H (7-17) mg/dL Creatinine (0.52-1.04) mg/dL Glucose 142 H (74-99) mg/dL POC Glucose (mg/dL) 142 H (75-99) mg/dL Magnesium 2.4 H (1.6-2.3) mg/dL Total Bilirubin 1.4 H (0.2-1.3) mg/dL Lactate Dehydrogenase (313-618) U/L Total Protein 5.8 L (6.3-8.2) g/dL Albumin 3.2 L (3.5-5.0) g/dL Urine Protein (Negative) Urine Blood (Negative) Urine RBC (0-5) /hpf Urine Mucus (None) /hpf 03/01/21 03/01/21 03/02/21 Range/Units 17:03 20:25 04:23 WBC (3.8-10.6) k/uL RBC (3.80-5.40) m/uL Hgb (11.4-16.0) gm/dL Hct (34.0-46.0) % MCHC (31.0-37.0) g/dL RDW (11.5-15.5) % Plt Count (150-450) k/uL Neutrophils # (1.3-7.7) k/uL Lymphocytes # (1.0-4.8) k/uL Retic Count (0.5-2.0) % APTT (22.0-30.0) sec Sodium (137-145) mmol/L Chloride (98-107) mmol/L Carbon Dioxide (22-30) mmol/L BUN (7-17) mg/dL Creatinine (0.52-1.04) mg/dL Glucose (74-99) mg/dL POC Glucose (mg/dL) 198 H 166 H (75-99) mg/dL Magnesium (1.6-2.3) mg/dL Total Bilirubin (0.2-1.3) mg/dL Lactate Dehydrogenase (313-618) U/L Total Protein (6.3-8.2) g/dL Albumin (3.5-5.0) g/dL Urine Protein Trace H (Negative) Urine Blood Small H (Negative) Urine RBC 11 H (0-5) /hpf Urine Mucus Rare H (None) /hpf 03/02/21 03/02/21 03/02/21 Range/Units 06:24 07:49 07:49 WBC 18.8 H (3.8-10.6) k/uL RBC 2.36 L (3.80-5.40) m/uL Hgb 6.7 L* (11.4-16.0) gm/dL Hct 23.0 L (34.0-46.0) % MCHC 28.9 L (31.0-37.0) g/dL RDW 17.7 H (11.5-15.5) % Plt Count 88 L (150-450) k/uL Neutrophils # 17.5 H (1.3-7.7) k/uL Lymphocytes # 0.6 L (1.0-4.8) k/uL Retic Count 4.2 H (0.5-2.0) % APTT (22.0-30.0) sec Sodium 146 H (137-145) mmol/L Chloride 118 H (98-107) mmol/L Carbon Dioxide 19 L (22-30) mmol/L BUN 22 H (7-17) mg/dL Creatinine 1.05 H (0.52-1.04) mg/dL Glucose 151 H (74-99) mg/dL POC Glucose (mg/dL) 185 H (75-99) mg/dL Magnesium 2.4 H (1.6-2.3) mg/dL Total Bilirubin 1.5 H (0.2-1.3) mg/dL Lactate Dehydrogenase 1350 H (313-618) U/L Total Protein 5.9 L (6.3-8.2) g/dL Albumin 3.2 L (3.5-5.0) g/dL Urine Protein (Negative) Urine Blood (Negative) Urine RBC (0-5) /hpf Urine Mucus (None) /hpf 03/02/21 Range/Units 10:03 WBC (3.8-10.6) k/uL RBC (3.80-5.40) m/uL Hgb (11.4-16.0) gm/dL Hct (34.0-46.0) % MCHC (31.0-37.0) g/dL RDW (11.5-15.5) % Plt Count (150-450) k/uL Neutrophils # (1.3-7.7) k/uL Lymphocytes # (1.0-4.8) k/uL Retic Count (0.5-2.0) % APTT 18.4 L (22.0-30.0) sec Sodium (137-145) mmol/L Chloride (98-107) mmol/L Carbon Dioxide (22-30) mmol/L BUN (7-17) mg/dL Creatinine (0.52-1.04) mg/dL Glucose (74-99) mg/dL POC Glucose (mg/dL) (75-99) mg/dL Magnesium (1.6-2.3) mg/dL Total Bilirubin (0.2-1.3) mg/dL Lactate Dehydrogenase (313-618) U/L Total Protein (6.3-8.2) g/dL Albumin (3.5-5.0) g/dL Urine Protein (Negative) Urine Blood (Negative) Urine RBC (0-5) /hpf Urine Mucus (None) /hpf
[2021-03-02 11:52] LABS: Glucose,Whole Blood 156 mg/dL (75-99)
[2021-03-02] MEDS ORDERED: DILTIAZEM ORAL 30 MG TAB PO SCH (13:00)
[2021-03-02] MEDS: DILTIAZEM 125 MG in SODIUM CHLORIDE 0.9% 100 ML IV SCH ×2 (13:05→20:02)
[2021-03-02] MEDS ORDERED: FUROSEMIDE 10 MG/ML 2 ML VIAL IV ONE (13:10)
--- NOTE | 2021-03-02 13:20 | P.PN ---
Subjective From records: This is a very pleasant 85-year-old patient of Dr. Maya. Currently at [facility]. Chronic stable medical conditions include COPD, paroxysmal atrial fibrillation, hypertension, hyperlipidemia, GERD, osteoarthritis, secondary pulmonary hypertension, hypothyroid, rosacea, osteoarthritis, urine stress incontinence,CHF from diastolic dysfunction EF 55- 60%, severe mitral regurgitation, moderate mitral stenosis, moderate tricuspid regurgitation, secondary pulmonary hypertension. Diverticulosis. at her baseline uses a cane and a walker. EMS was called out as patient had been lethargic all day. Patient is compla ining that she is not feeling well. One hour prior to the EMS arrival patient became increasingly short of breath. Patient at baseline is 3 L of nasal cannula. And patient became less responsive and breathing worsen. 4 days ago patient had a negative COVID testing. When EMS arrived patient's found to have agonal respiration. Telemetry showed sinus rhythm. Patient is intubated. This afternoon patient has FiO2 15 of PEEP of 5. Drips included propofol and norepinephrine. Telemetry shows sinus rhythm. Admitted with bilateral pneumonia, acute respiratory arrest on ventilator support. Started on IV Zosyn, Levothroid, propofol, IV Solu-Medrol, bronchodilators. Extubated February 24. Today: Laying in bed. Awake. Following commands. Finding it difficult to phonate. Congested cough. Very poor oral hygiene Subjective: 02/28/2021 This is a pleasant 85 years old female with multiple medical problems was admitted to the ICU for bilateral pneumonia with respiration dispensed suspected and paroxysmal atrial fibrillation with RVR, acute COPD exacerbation, bicytopenia and valvular heart disease. Originally patient is from [facility]. She got extubated and transported to the general medical floor at [facility]. Today patient lying in bed slightly tachypneic, very weak, she answers some questions with dyspnea. She denies chest pain or palpitation or dizziness. She still complaining of from lateral cough. She still nothing by mouth and there is some bleeding in her throat while she is on heparin drip with hemoglobin slightly trended down to 8.1 down to 7.4, cardiology team discontinued her heparin drip due to bleeding. Her CTA on admission showing no PE with extensive bilateral consolidation on 02/19. She is on 4 L oxygen compared to 3 l/m yesterday with a breathing rate of 22 breaths per minute, her tachycardia slightly better today. Also hematology and pulmonary team on the case She remains on amiodarone and Cardizem drips, some Medrol 40 mg twice daily, Zosyn and normal cyanotic 50 mL/h. Heparin drip was discontinued 03/01/2021 Patient remains moderately cystic, she still tachypnea on face back in 6 L of oxygen however during the day her oxygen delivery was dropped to 4-5 L/m. She still slightly tachypneic at 20-22, as her for her to talk, she scan of the drowsy with a coughing. Swallow evaluation done since yesterday showing delayed swallow with moderate to severe residual and no aspiration. There is also evidence of GI bleed to heparin drip was stopped, her hemoglobin is stable at 7.3. We'll start iron pills. Surgical team are planning for EGD and possible PEG tube placement tomorrow. Patient still tachycardic around 111. Her amiodarone and Cardizem drip were switched to oral medication now per starch crab. Patient remains a Doll catheter. She denies chest pain or dizziness or diarrhea or palpitation. She still had persistent leukocytosis of 13 K, platelets are round 97K. She is also on Solu-Medrol 40 mg twice daily, doxepin last cycling and Zosyn and Protonix 03/02/2021 Patient is still feels generally weak, this morning she was alert and awake and follow commands however she is very tired, barely she can talk with one or 2 sentences. Her breathing is affecting her ability to talk as well. She is slightly tachycardic with regular rate 18-22 breaths per minute. Her oxygen saturation is about 85% on 4 L of oxygen via nasal cannula. On exam she has bilateral chest dictation suspicious for fluid overload. Chest x-ray from yesterday showing increased bilateral patchy interstitial opacity. Yesterday she was nothing by mouth and she supposed to get PEG/EGD done by surgery team however this was canceled because she started swallowing and I placed however this morning when retested she failed swallowing evaluation again, so oral medication were held and patient was placed back on IV medication. Her crit went up in 140s so Cardizem drip was started with the aid of the starch crab. We will contact surgery for possible EGD. That her labs are showing low hemoglobin at 6.7 from 7.3 yesterday, 1 unit of blood is ordered. She is allowed leukocytosis 18 K while she is on steroids. Platelets are stable at 80 8K. Sodium is slightly up at 146, creatinine is 1.05. Because of chest congestion or leg edema, patient was started on IV Lasix especially she's getting 1 unit of blood transfusion as well. She is currently placed back on Cardizem drip because she is nothing by mouth. 40 mg of IV Lasix, Solu-Medrol 40 mg twice daily, doxycycline and Zosyn. Increase Protonix to 40 mg twice daily Prognosis remains guarded Discussed with staff Review of systems -CONSTITUTIONAL: No fever, generally weak and tired HEENT: No recent visual problems or hearing problems. Denied any sore throat. CARDIOVASCULAR: no palpitations, no syncope. PULMONARY: No chest wall tenderness, no hemoptysis. GASTROINTESTINAL: No diarrhea, no nausea, no vomiting, no abdominal pain. Normoactive bowel sounds. NEUROLOGICAL: No headaches, no weakness, no numbness. Active Medications Generic Name Dose Route Start Last Admin Trade Name Freq PRN Reason Stop Dose Admin Acetaminophen 650 mg 02/18/21 06:10 Acetaminophen Suppository 650 Mg Supp RECTAL Q4HR PRN Fever And/ Or Mild Pain Acetaminophen 650 mg 02/18/21 06:10 Acetaminophen Tab 325 Mg Tab PO Q4HR PRN Fever and/or Mild Pain Acetazolamide 250 mg 02/22/21 21:00 03/02/21 08:22 Acetazolamide 250 Mg Tab PO 250 mg BID ANGELA Administration Albuterol Sulfate 2 puff 03/01/21 09:30 03/02/21 11:48 Albuterol Hfa Inhaler INHALATION 2 puff RT-QID ANGELA Administration Chlorhexidine Gluconate 15 ml 02/27/21 13:45 03/02/21 08:22 Chlorhexidine Gluconate 15 Ml Cup MUCOUS MEM 15 ml QID ANGELA Administration Cyanocobalamin 1,000 mcg 03/02/21 09:00 03/02/21 08:22 Cyanocobalamin 1,000 Mcg/Ml 1 Ml Vial SQ 03/06/21 09:01 1,000 mcg DAILY ANGELA Administration Doxycycline Monohydrate 100 mg 02/18/21 21:00 03/02/21 08:23 Doxycycline 100 Mg Cap PO 100 mg BID ANGELA Administration Piperacillin Sod/Tazobactam 100 mls @ 25 mls/hr 02/18/21 16:00 03/02/21 08:20 Sod 3.375 gm/ Sodium Chloride IVPB 25 mls/hr Q8HR ANGELA Administration Lactated Ringer's 1,000 mls @ 20 mls/hr 03/01/21 06:15 03/01/21 06:27 Lactated Ringers IV 20 mls/hr .Q24H ANGELA Administration Diltiazem HCl 125 mg/ Sodium 125 mls @ 15 mls/hr 03/02/21 11:45 03/02/21 13:05 Chloride IV 15 mg/hr .Q8H20M ANGELA 15 mls/hr Administration 15 MG/HR Insulin Aspart 0 unit 02/28/21 21:00 03/02/21 06:39 Insulin Aspart (Novolog) 100 Unit/Ml Vial SQ 4 unit ACHS ANGELA Administration Protocol Latanoprost 1 drops 02/18/21 20:00 03/01/21 21:28 Latanoprost 0.005% Ophth Drops 2.5 Ml Btl BOTH EYES 1 drops HS@2000 ANGELA Administration Levothyroxine Sodium 112 mcg 02/18/21 21:00 03/01/21 21:13 Levothyroxine 112 Mcg Tab OG-TUBE 112 mcg HS ANGELA Administration Methylprednisolone Sodium Succinate 40 mg 02/28/21 09:00 03/02/21 08:21 Methylprednisolone Sod Succi 40 Mg/Ml 1 Ml Vial IV 40 mg Q12H ANGELA Administration Miscellaneous Information 1 each 02/19/21 06:23 Potassium Replacement Protocol 1 Each Misc MISCELLANE DAILY PRN Per Protocol Protocol Miscellaneous Information 1 each 02/21/21 05:00 Magnesium Replacement Protocol 1 Each Misc MISCELLANE DAILY PRN Per Protocol Protocol Miscellaneous Information 1 each 02/22/21 04:51 Potassium Replacement Protocol 1 Each Misc MISCELLANE DAILY PRN Per Protocol Protocol Morphine Sulfate 3 mg 02/18/21 06:10 Morphine Sulfate 4 Mg/Ml Syringe IV Q2HR PRN Pain Scale 6 to 7 Naloxone HCl 0.2 mg 02/18/21 06:10 Naloxone 0.4 Mg/Ml 1 Ml Vial IV Q2M PRN Opioid Reversal Nitroglycerin 1 inch 02/26/21 09:00 03/02/21 08:23 Nitroglycerin Oint 1 Inch/Gm Packet TOPICAL Not Given Q8HR ANGELA Pantoprazole Sodium 40 mg 03/02/21 13:15 Pantoprazole 40 Mg/10 Ml Vial IVP BID ANGELA Ropinirole HCl 2 mg 02/18/21 21:00 03/01/21 21:13 Ropinirole Hcl 1 Mg Tab PO 2 mg HS ANGELA Administration Senna/Docusate Sodium 1 each 02/19/21 09:00 03/02/21 08:23 Sennosides-Docusate Sodium 1 Each Tab PO Not Given DAILY ANGELA Sodium Chloride 10 ml 02/22/21 15:47 Sodium Chloride 0.9% Flush 10 Ml Syringe IV Q4HR PRN PICC Line Sodium Chloride 10 ml 03/01/21 09:00 03/01/21 09:15 Sodium Chloride 0.9% Flush 10 Ml Syringe IV 10 ml WEEKLY ANGELA Administration Sodium Chloride 20 ml 02/22/21 15:47 Sodium Chloride 0.9% Flush 10 Ml Syringe IV Q4HR PRN PICC Line Objective - Vital Signs Vital signs: Vital Signs Temp 97.4 F L 03/02/21 08:00 Pulse 147 H 03/02/21 12:00 Resp 18 03/02/21 12:00 BP 133/63 03/02/21 12:00 Pulse Ox 85 L 03/02/21 12:00 Intake & Output 03/01/21 03/02/21 03/02/21 18:59 06:59 18:59 Intake Total 125 Output Total 500 500 Balance -500 -375 Weight 85.5 kg Intake: Oral 125 Output: Urine 500 100 Stool 400 Other: Voiding Method Indwelling Catheter Indwelling Catheter - Exam -GENERAL: The patient is alert and oriented x2-3, in mild to moderate acute respiratory distress. Obese HEENT: Pupils are round and equally reacting to light. EOMI. No scleral icterus. No conjunctival pallor. Normocephalic, atraumatic. No pharyngeal erythema. No thyromegaly. CARDIOVASCULAR: S1 and S2 present. No murmurs, rubs, or gallops. -PULMONARY: Chest is clear to auscultation, no wheezing . Bilateral basal crepitation ABDOMEN: Soft, nontender, nondistended, normoactive bowel sounds. No palpable organomegaly. MUSCULOSKELETAL: No joint swelling or deformity. -EXTREMITIES: No cyanosis, clubbing, . Bilateral pitting leg edema. NEUROLOGICAL: Gross neurological examination did not reveal any focal deficits. SKIN: No rashes. no petechiae. - Labs CBC & Chem 7: 03/02/21 07:49 03/02/21 07:49 Labs: Abnormal Lab Results - Last 24 Hours (Table) 03/01/21 03/01/21 03/01/21 Range/Units 12:18 12:18 17:03 WBC 18.8 H (3.8-10.6) k/uL RBC 2.41 L (3.80-5.40) m/uL Hgb 7.3 L (11.4-16.0) gm/dL Hct 23.5 L (34.0-46.0) % MCHC 30.9 L (31.0-37.0) g/dL RDW 16.8 H (11.5-15.5) % Plt Count 97 L (150-450) k/uL Neutrophils # 17.5 H (1.3-7.7) k/uL Lymphocytes # 0.5 L (1.0-4.8) k/uL Retic Count (0.5-2.0) % APTT (22.0-30.0) sec Sodium (137-145) mmol/L Chloride 116 H (98-107) mmol/L Carbon Dioxide 20 L (22-30) mmol/L BUN 22 H (7-17) mg/dL Creatinine (0.52-1.04) mg/dL Glucose 142 H (74-99) mg/dL POC Glucose (mg/dL) 198 H (75-99) mg/dL Magnesium 2.4 H (1.6-2.3) mg/dL Total Bilirubin 1.4 H (0.2-1.3) mg/dL Lactate Dehydrogenase (313-618) U/L Total Protein 5.8 L (6.3-8.2) g/dL Albumin 3.2 L (3.5-5.0) g/dL Urine Protein (Negative) Urine Blood (Negative) Urine RBC (0-5) /hpf Urine Mucus (None) /hpf 03/01/21 03/02/21 03/02/21 Range/Units 20:25 04:23 06:24 WBC (3.8-10.6) k/uL RBC (3.80-5.40) m/uL Hgb (11.4-16.0) gm/dL Hct (34.0-46.0) % MCHC (31.0-37.0) g/dL RDW (11.5-15.5) % Plt Count (150-450) k/uL Neutrophils # (1.3-7.7) k/uL Lymphocytes # (1.0-4.8) k/uL Retic Count (0.5-2.0) % APTT (22.0-30.0) sec Sodium (137-145) mmol/L Chloride (98-107) mmol/L Carbon Dioxide (22-30) mmol/L BUN (7-17) mg/dL Creatinine (0.52-1.04) mg/dL Glucose (74-99) mg/dL POC Glucose (mg/dL) 166 H 185 H (75-99) mg/dL Magnesium (1.6-2.3) mg/dL Total Bilirubin (0.2-1.3) mg/dL Lactate Dehydrogenase (313-618) U/L Total Protein (6.3-8.2) g/dL Albumin (3.5-5.0) g/dL Urine Protein Trace H (Negative) Urine Blood Small H (Negative) Urine RBC 11 H (0-5) /hpf Urine Mucus Rare H (None) /hpf 03/02/21 03/02/21 03/02/21 Range/Units 07:49 07:49 10:03 WBC 18.8 H (3.8-10.6) k/uL RBC 2.36 L (3.80-5.40) m/uL Hgb 6.7 L* (11.4-16.0) gm/dL Hct 23.0 L (34.0-46.0) % MCHC 28.9 L (31.0-37.0) g/dL RDW 17.7 H (11.5-15.5) % Plt Count 88 L (150-450) k/uL Neutrophils # 17.5 H (1.3-7.7) k/uL Lymphocytes # 0.6 L (1.0-4.8) k/uL Retic Count 4.2 H (0.5-2.0) % APTT 18.4 L (22.0-30.0) sec Sodium 146 H (137-145) mmol/L Chloride 118 H (98-107) mmol/L Carbon Dioxide 19 L (22-30) mmol/L BUN 22 H (7-17) mg/dL Creatinine 1.05 H (0.52-1.04) mg/dL Glucose 151 H (74-99) mg/dL POC Glucose (mg/dL) (75-99) mg/dL Magnesium 2.4 H (1.6-2.3) mg/dL Total Bilirubin 1.5 H (0.2-1.3) mg/dL Lactate Dehydrogenase 1350 H (313-618) U/L Total Protein 5.9 L (6.3-8.2) g/dL Albumin 3.2 L (3.5-5.0) g/dL Urine Protein (Negative) Urine Blood (Negative) Urine RBC (0-5) /hpf Urine Mucus (None) /hpf 03/02/21 Range/Units 11:50 WBC (3.8-10.6) k/uL RBC (3.80-5.40) m/uL Hgb (11.4-16.0) gm/dL Hct (34.0-46.0) % MCHC (31.0-37.0) g/dL RDW (11.5-15.5) % Plt Count (150-450) k/uL Neutrophils # (1.3-7.7) k/uL Lymphocytes # (1.0-4.8) k/uL Retic Count (0.5-2.0) % APTT (22.0-30.0) sec Sodium (137-145) mmol/L Chloride (98-107) mmol/L Carbon Dioxide (22-30) mmol/L BUN (7-17) mg/dL Creatinine (0.52-1.04) mg/dL Glucose (74-99) mg/dL POC Glucose (mg/dL) 156 H (75-99) mg/dL Magnesium (1.6-2.3) mg/dL Total Bilirubin (0.2-1.3) mg/dL Lactate Dehydrogenase (313-618) U/L Total Protein (6.3-8.2) g/dL Albumin (3.5-5.0) g/dL Urine Protein (Negative) Urine Blood (Negative) Urine RBC (0-5) /hpf Urine Mucus (None) /hpf Assessment and Plan Assessment: -bilateral aspiration pneumonia. -Acute on chronic diastolic dysfunction with ejection fraction 55-60% -Acute hypoxic respiratory failure, secondary to pneumonia -Dysphagia following extubation, with contribution from poor oral hygiene. -Acute COPD exacerbation in an [id number] -Severe mitral regurgitation, moderate mitral stenosis, moderate tricuspid regurgitation -Secondary moderate pulmonary hypertension from COPD and CHF -Possible acute GI bleed. Possible bleeding from her throat while on heparin drip which is stopped now. -Essential hypertension -GERD -Primary osteoarthritis -Hypothyroid -Chronic urinary stress incontinence -Chronic diverticulosis -Chronic gait dysfunction uses walker -Left bundle-branch block, chronic -Paroxysmal atrial fibrillation, with RVR -New-onset of thrombocytopenia. Platelet count above 50. -Metabolic alkalosis likely from volume contraction -Acute kidney injury likely prerenal from diuresis -Acute metabolic encephalopathy multifactorial Plan: This is a pleasant 85 years old female who presents with pneumonia and COPD and A. fib. Continue with amiodarone and Cardizem oral medication per cardiology team. Discontinue anticoagulation due to bleeding from her throat with a slight drop in hemoglobin. Continue with antibiotics and steroids and gentle hydration. Several consultants on the case including pulmonary, cardiology and hematology/oncology and follow-up with a recommendation EGD per surgery and PEG tube placement Labs and medication were reviewed.. Continue same treatment. Continue with symptomatic treatment. Resume home medication. Monitor lytes and vitals. DVT and GI prophylaxis. Further recommendationsn as per clinical course of the patient DVT prophylaxis: No anticoagulation for possible bleeding from her throat GI Prophylaxis: Pepcid PT/OT: Pending Prognosis is guarded We will discuss with family about her CODE STATUS. Patient not improve she might benefit from comfort measures, given her multiple severe systemic diseases affecting many organs
--- NOTE | 2021-03-02 15:25 | CT ---
EXAMINATION TYPE: CT angio chest DATE OF EXAM: 03/02/2021 COMPARISON: 02/18/2021 HISTORY: Difficulty breathing. CT DLP: 494.9 mGycm CONTRAST: CT chest with contrast and 3D reconstruction with MIP imaging is performed with IV Contrast, patient injected with 80 mL of Isovue 370. Contrast-enhanced CT of the chest was performed through the course of the pulmonary arteries with osvaldo g and mediastinal window settings submitted. 3D reconstruction with MIP imaging was also performed. PULMONARY ARTERIES: The pulmonary arteries and their major tributaries are patent. I do not see fabricio dence for sizable filling defect to suggest pulmonary embolic process. LUNGS: Extensive airspace infiltrates throughout both lung dukes compatible with Covid 19 pneumonia. No evidence for atelectasis. No pulmonary nodule or mass is detected. No pleural effusion. MEDIASTINUM: Thoracic aorta is of normal caliber,however, evaluation is limited given timing of the contrast bolus. If there is concern for thoracic aortic pathology consider JEREMY. Correlate clinicall y . The heart is not enlarged. No evidence for mediastinal mass. No mediastinal lymph nodes greater than 1cm. HILAR STRUCTURES: No evidence for mass. No hilar lymph nodes greater than 1 cm. UPPER ABDOMEN: No significant abnormality is seen. IMPRESSION: 1. No evidence for Pulmonary embolism at this time. 2.Extensive airspace infiltrates throughout both lung dukes compatible with Covid 19 pneumonia.
[2021-03-02 15:27] LABS: ABG Base Excess -7.8 mmol/L; ABG HCO3 20 mmol/L (21-25); ABG Oxygen Saturation 81.5 % (94-97); ABG PCO2 50 mmHg (35-45); ABG PH 7.21 (7.35-7.45); ABG TCO2 22 mmol/L (19-24); Allen Test Performed? Yes
[2021-03-02 15:34] LABS: ABG PO2 53 mmHg (83-108)
[2021-03-02 15:38] LABS: Glucose,Whole Blood 184 mg/dL (75-99)
--- NOTE | 2021-03-02 15:45 | P.PN ---
Subjective Progress Note Date: 03/02/21 Principal diagnosis: Acute hypoxic respiratory failure Bilateral progressive aspiration pneumonia Sepsis Chronic kidney disease Altered mental status due to sepsis and pneumonia Baseline history of chronic atrial fibrillation heart failure covid 19 has been negative 03/02/2021, patient seen eval examined during the rounds labs reviewed medications reviewed care plan discussed, patient seen and evaluated examined on third floor, she just had a computed tomography scan of the chest, patient has respiratory distress, not opening her eyes, on 4 L saturating in mid 80s, x-ray and CAT scan consistent with worsening of infiltrates bilaterally, she is afebrile, 4 L oxygen saturation 85% last checked blood pressure was 133/63 heart rate is 147, patient is in A. fib with RVR, computed tomography scan of the chest failed to show any pulmonary embolism, arterial blood gas has been ordered, patient to be kept nothing by mouth, patient is a full code at this time, these issues were discussed with the son in case if patient is intubated likelihood of recovery remains poor and likely that she will require tracheostomy and PEG tube as per son patient would not want it however final decision is pending, rapid response was called, arterial blood gas show significant hypoxemia and metabolic acidosis, BiPAP has been started with 100% oxygen will get a ABG after 2 hours blood pressure is stable patient remains in A. fib with RVR hemoglobin is down to 6.7 patient has ordered for transfusion of packed RBC 03/01/2021, patient seen eval reexamined during the rounds labs reviewed medications reviewed, patient sitting upright in chair breathing slightly better, and denies any chest pain, patient has been on 6 L oxygen shortness of breath still there, intermittent gurgling of secretions however noted in posterior pharynx, patient evaluated by aspiration studies, patient has significant delay in swallowing function with moderate to severe residual no active aspiration however is seen, hemoglobin dropped to 7.3, heparin drip is on hold, 02/28/2021, patient seen eval examined remains on 4 L oxygen she has a tendency of pooling secretions during sleep, able to make a good cough sitting upright and awake, speech and swallowing evaluating the patient for definitive r ecommendation about oral nutrition and support, ongoing dyspnea and shortness of breath and intermittent cough is present labs reviewed, A. fib with RVR improved, patient however remains on Cardizem drip and amiodarone along with broad-spectrum antibiotics 02/27/2021, patient seen eval examined during the rounds care plan discussed with RN, patient to much better when sitting upright and during awake swallowing function is still marginal, formal swallowing evaluation are being conducted by speech therapist later on today, patient currently on 3 L nasal cannula, remains on heparin and Cardizem drip, she has been started on Cardizem drip yesterdaymy labs reviewed BUN/creatinine is 24/1.04, 02/26/2021, patient seen eval examined during the rounds labs reviewed medications reviewed care plan discussed the staff at length, patient on the nebulizer treatment otherwise she is on 4 L, patient has been up on the chair most of the day yesterday and at nighttime now on bed, paradoxical respiration appeared to be more pronounced and prominent supine, patient remains nothing by mouth as she has been risk for aspiration, speech and swallow has been following, chest x-ray continued to show bilateral radicular opacities, no significant changes present, covert 19 testing has been negative, 02/25/2021, patient seen eval examined during the rounds labs reviewed medications reviewed care plan discussed with the staff at length patient is awake and alert, follows simple commands but has mild shortness of breath patient went into runs of A. fib with RVR, Cardizem has been started by cardiovascular services, for anticoagulation will resume Lovenox as platelet count is better and improved, her last PT OT to evaluate patient, patient remains nothing by mouth due to weak swallowing functions, patient remains on heparin for intermittent proximal atrial fibrillation 02/24/2021, patient seen and evaluated examined care plan discussed with the staff as well as the respiratory at length critical care time spent 35 minutes, patient was placed on CPAP of 5 pressure support and gradually titrated down to CPAP 5 and pressure support of 5, weaning parameters and arterial blood gases reviewed patient does well, proceed with extubation successfully done on 4 L oxygen slide wheezing is present we'll continue steroids breathing treatments and antibiotics, patient is not ready for oral we'll change to oral metaproterenol to IV, patient has intermittent runs of the A. fib with RVR, due to thrombocytopenia lobe in next is being held at this point of time 02/23/2021, patient seen eval examined during the rounds labs reviewed medications reviewed care plan discussed, patient remains on full ventilator support, discussed with RN and respiratory therapist patient likely has very small airway limiting air leak from the site of the ET tube, patient did well with CPAP and pressure support, would recommend to taper and DC the propofol drip do a CPAP and pressure support of trial started with CPAP 5 and pressure support of 10 and subsequently 5 and 5 and then obtain a blood gas and weaning parameters if patient does well and remains awake and alert will proceed with extubation him a chest x-ray reviewed as stable, reviewed potassium is 3.3 on potassium replacement protocol 02/22/2021, patient seen eval examined during the rounds labs reviewed medications reviewed patient remains on propofol, CPAP pressure support trial performed yesterday have been unsuccessful they were done on 5 of CPAP and pressure support of 5, we will stop the propofol today and developed pressure support trial of 10 with CPAP of 5 and 40% oxygen if tolerated well consider taking the tube out, he remains afebrile hemodynamically stable and stable oxygen saturation into mid 90s, labs are reviewed pH is 755 pCO2 29. 103, BUN/creatinine slightly up likely related to diuresis, 02/21/2021, patient seen eval examined during the rounds labs reviewed medications reviewed care plan discussed with the staff at length, patient is been down to 40% oxygen, been setting remains stable, propofol has been tapered to 15 mics now, patient is arousable, discussed with the respiratory therapist and nurse patient to go on CPAP pressure support. All drips stop the tube feed as well, will do weaning parameters, blood cultures have been negative, medications reviewed, chest x-ray stable ET tube slightly at the level of justo bilateral infiltrates are noted, noted respiratory alkalosis would recommend to do CPAP pressure support trial patient will automatically corrected 02/20/2021, patient seen eval examined during the rounds labs reviewed medications reviewed, patient is currently off of levo fed drip, euvolemic status appears to be present, however ventilator setting continued to have high FiO2 currently patient is on 60% oxygen over next 24 hours will try to wean down the oxygen, patient remains on broad-spectrum antibiotics no fever has been seen, urine output has been adequate, but patient has been replaced, radiographic studies labs reviewed care plan discussed with staff at length if patient is down to 40% and we will do a CPAP pressure support trial tomorrow morning, 2 feet can be initiated, 02/19/2021, patient seen eval examined during the rounds labs reviewed medications reviewed care plan discussed with the staff at length, patient remains on low dose of levo fed, unable to stop it as earlier this morning we stopped it but blood pressure dropped down requiring a reinitiation of levo fed, will require fluid bolus of the crystalloids 500 mL over 2 hours will be given, patient remains on full ventilator support currently patient is on FiO2 of 60%, with assist control rate of 20, tidal volume is 450, PEEP is 5, given hypotension cannot escalate the PEEP, first we'll try to taper off the levo fed then will taper the oxygen down by increasing PEEP, but cultures no growth so far, chest x-ray bilateral upper and mid lung field predominantly on the right side pneumonia stable ET tube, WBC have been lowered down to 12,000, arterial blood gas stable pO2 is 89, rash M is 3.2 BUN/creatinine improved to 20 and 1.03, currently patient is sedated with propofol drip, patient has a history of significant A. fib with RVR as well as moderate to severe mitral regurgitation, Patient is a 85-year-old [facility] resident brought into emergency department intubated on the field by EMS, she was having respiratory difficulties with argon of respiration, review of the records revealed that patient has a significant history of mood disorder depression hypertension and hypothyroidism, she has prior medical problems significant for atrial fibrillation not on any anticoagulation COPD heart failure dyslipidemia hypertension hypertensive cardiovascular disease and history of pulmonary hypertension history of stroke chronic kidney disease stage III, she used to smoke however stopped smoking several years ago, currently patient is on full ventilator support assist control of 20 breathing 20, PEEP of 5, 50% oxygen, tidal volume is 450, patient is on propofol 30 mics, hemodynamic status is stable patient is on levo fed 0.025, blood pressure is improved to 159/61, heart rate 63 saturation is 98%, EKG revealed left bundle-branch block, labs are significant for leukocytosis with WBC count is 16,000, hemoglobin and hematocrit 7.9 and 25, platelet count is 1 76,000, d-dimer is 4.86, lactic acid is up to 5.7 now came down to 2.2, subsequent 1 is 1.2, BUN/creatinine 27 1.19, coated 19 is negative, patient has received a dose of Lovenox and Zosyn and fluid boluses 1.5 L Objective - Vital Signs Vital signs: Vital Signs Temp 97.4 F L 03/02/21 08:00 Pulse 147 H 04/22/21 12:00 Resp 18 03/02/21 12:00 BP 133/63 03/02/21 12:00 Pulse Ox 85 L 03/02/21 12:00 Intake & Output 03/01/21 03/02/21 03/02/21 18:59 06:59 18:59 Intake Total 125 Output Total 500 500 Balance -500 -375 Weight 85.5 kg 85.5 kg Intake: Oral 125 Output: Urine 500 100 Stool 400 Other: Voiding Method Indwelling Catheter Indwelling Catheter - Exam - Constitutional General appearance: average body habitus, disheveled, arousable to verbal stimuli very weak - EENT Eyes: PERRLA Ears: bilateral: normal - Neck Neck: lymphadenopathy Carotids: bilateral: upstroke normal - Respiratory Respiratory: bilateral: diminished - Cardiovascular Rhythm: regular Heart sounds: normal: S1, S2 - Gastrointestinal General gastrointestinal: decreased bowel sounds, distended, soft - Neurologic open eyes follow simple commands too weak to move all 4 extremity - Labs CBC & Chem 7: 03/02/21 07:49 03/02/21 07:49 Labs: Abnormal Lab Results - Last 24 Hours (Table) 03/01/21 03/01/21 03/02/21 Range/Units 17:03 20:25 04:23 WBC (3.8-10.6) k/uL RBC (3.80-5.40) m/uL Hgb (11.4-16.0) gm/dL Hct (34.0-46.0) % MCHC (31.0-37.0) g/dL RDW (11.5-15.5) % Plt Count (150-450) k/uL Neutrophils # (1.3-7.7) k/uL Lymphocytes # (1.0-4.8) k/uL Retic Count (0.5-2.0) % APTT (22.0-30.0) sec Sodium (137-145) mmol/L Chloride (98-107) mmol/L Carbon Dioxide (22-30) mmol/L BUN (7-17) mg/dL Creatinine (0.52-1.04) mg/dL Glucose (74-99) mg/dL POC Glucose (mg/dL) 198 H 166 H (75-99) mg/dL Magnesium (1.6-2.3) mg/dL Total Bilirubin (0.2-1.3) mg/dL Lactate Dehydrogenase (313-618) U/L Total Protein (6.3-8.2) g/dL Albumin (3.5-5.0) g/dL Urine Protein Trace H (Negative) Urine Blood Small H (Negative) Urine RBC 11 H (0-5) /hpf Urine Mucus Rare H (None) /hpf Crossmatch 03/02/21 03/02/21 03/02/21 Range/Units 06:24 07:49 07:49 WBC 18.8 H (3.8-10.6) k/uL RBC 2.36 L (3.80-5.40) m/uL Hgb 6.7 L* (11.4-16.0) gm/dL Hct 23.0 L (34.0-46.0) % MCHC 28.9 L (31.0-37.0) g/dL RDW 17.7 H (11.5-15.5) % Plt Count 88 L (150-450) k/uL Neutrophils # 17.5 H (1.3-7.7) k/uL Lymphocytes # 0.6 L (1.0-4.8) k/uL Retic Count 4.2 H (0.5-2.0) % APTT (22.0-30.0) sec Sodium 146 H (137-145) mmol/L Chloride 118 H (98-107) mmol/L Carbon Dioxide 19 L (22-30) mmol/L BUN 22 H (7-17) mg/dL Creatinine 1.05 H (0.52-1.04) mg/dL Glucose 151 H (74-99) mg/dL POC Glucose (mg/dL) 185 H (75-99) mg/dL Magnesium 2.4 H (1.6-2.3) mg/dL Total Bilirubin 1.5 H (0.2-1.3) mg/dL Lactate Dehydrogenase 1350 H (313-618) U/L Total Protein 5.9 L (6.3-8.2) g/dL Albumin 3.2 L (3.5-5.0) g/dL Urine Protein (Negative) Urine Blood (Negative) Urine RBC (0-5) /hpf Urine Mucus (None) /hpf Crossmatch 03/02/21 03/02/21 03/02/21 Range/Units 10:03 11:50 11:51 WBC (3.8-10.6) k/uL RBC (3.80-5.40) m/uL Hgb (11.4-16.0) gm/dL Hct (34.0-46.0) % MCHC (31.0-37.0) g/dL RDW (11.5-15.5) % Plt Count (150-450) k/uL Neutrophils # (1.3-7.7) k/uL Lymphocytes # (1.0-4.8) k/uL Retic Count (0.5-2.0) % APTT 18.4 L (22.0-30.0) sec Sodium (137-145) mmol/L Chloride (98-107) mmol/L Carbon Dioxide (22-30) mmol/L BUN (7-17) mg/dL Creatinine (0.52-1.04) mg/dL Glucose (74-99) mg/dL POC Glucose (mg/dL) 156 H (75-99) mg/dL Magnesium (1.6-2.3) mg/dL Total Bilirubin (0.2-1.3) mg/dL Lactate Dehydrogenase (313-618) U/L Total Protein (6.3-8.2) g/dL Albumin (3.5-5.0) g/dL Urine Protein (Negative) Urine Blood (Negative) Urine RBC (0-5) /hpf Urine Mucus (None) /hpf Crossmatch See Detail Assessment and Plan Assessment: Acute hypoxic respiratory failure Bilateral aspiration pneumonia Generalized weakness A. fib with RVR Severe hypoxia TV anemia Thrombocytopenia Unstable upper airway patient being kept nothing by mouth for risk of aspiration, Paradoxical respiration especially in supine posture, would prefer to patient to stay upright on bed or sit on the chair hypokalemia Sepsis thrombocytopenia Chronic kidney disease Valvular heart disease with mitral regurgitation Altered mental status due to sepsis and pneumonia Baseline history of chronic atrial fibrillation heart failure Testing covidr 19 has been negative Plan: Transfusion of 2 units packed RBC BiPAP support replace potassium as per protocol Keep nothing by mouth until he gets more definitive recommendation from speech and swallow Continue therapy for atrial fibrillation Monitor and observe platelet closely Echocardiogram results reviewed ejection fraction is 60%,, with mild to moderate aortic stenosis, severe pulmonary hypertension was noted right ventricle systoli c pressure estimated to be 76, Broad-spectrum antibiotics Bronchodilators IV steroids Further plan of care and recommendation as per clinical response of the patient PT OT to evaluate and treat Speech and language following the patient Awaiting further advice from the son for CODE STATUS and further plan and management for the care of patient Time with Patient: Greater than 30
[2021-03-02] MEDS: IPRATROPIUM-ALBUTEROL 3 ML NEB INHALATION SCH (15:55)
--- NOTE | 2021-03-02 16:12 | P.PN ---
Subjective Progress Note Date: 03/02/21 CHIEF COMPLAINT: Worsening shortness of breath HISTORY OF PRESENT ILLNESS: Surgical service is following in regards to patient's GI bleed. She was scheduled for EGD today with Dr. Meléndez. However patient is not stable enough to proceed with EGD and therefore EGD canceled today. Patient's oxygen saturation has worsened. She did have a CTA of the chest consistent with worsening infiltrates bilaterally. Patient had been on 4 L satting at 80%. Also elevated heart rate she had A. fib with RVR. Patient on BiPAP. CTA of the chest no evidence of pulmonary embolism. Extensive airspace infiltrates throughout the lung dukes compatible with covid 19 pneumonia. Afebrile WBC 18.8 hemoglobin 6.7 platelets 88 creatinine 1.05 patient is receiving 1 unit of blood for hemoglobin of 6.[address] Melnédez PHYSICAL EXAM: VITAL SIGNS: Reviewed. GENERAL: Well-developed in no acute distress. HEENT: No sclera icterus. Extraocular movements grossly intact. Moist buccal mucosa. Head is atraumatic, normocephalic. ABDOMEN: Soft. Nondistended. Nontender. ASSESSMENT: 1. Acute GI bleed with black tarry stools and anemia 2. Moderate protein calorie malnutrition 3. Sepsis with pneumonia 4. Acute hypoxic respiratory failure had been requiring mechanical ventilation 5. Paroxysmal atrial fibrillation 6. Prior history of GI bleeding 7. Cardiac history 8. Chronic kidney disease 9. COPD exacerbation PLAN: -EGD canceled due to patient's worsening respiratory status -Continue IV Protonix -Also will continue to monitor patient during this admission for possible PEG tube placement. Physician Date Puller note has been reviewed by physician. Signing provider agrees with the documented findings, assessment, and plan of care. Objective - Vital Signs Vital signs: Vital Signs Temp 97.4 F L 03/02/21 08:00 Pulse 147 H 03/02/21 12:00 Resp 18 03/02/21 12:00 BP 133/63 03/02/21 12:00 Pulse Ox 85 L 03/02/21 12:00 Intake & Output 03/01/21 03/02/21 03/02/21 18:59 06:59 18:59 Intake Total 125 0 Output Total 500 500 Balance -500 -375 0 Weight 85.5 kg 85.5 kg Intake: Oral 125 Blood Product 0 Rc As-1 Unit 0 [id number] Output: Urine 500 100 Stool 400 Other: Voiding Method Indwelling Catheter Indwelling Catheter - Labs CBC & Chem 7: 03/02/21 07:49 03/02/21 07:49 Labs: Abnormal Lab Results - Last 24 Hours (Table) 02/18/21 03/01/21 03/01/21 Range/Units 07:40 17:03 20:25 WBC (3.8-10.6) k/uL RBC (3.80-5.40) m/uL Hgb (11.4-16.0) gm/dL Hct (34.0-46.0) % MCHC (31.0-37.0) g/dL RDW (11.5-15.5) % Plt Count (150-450) k/uL Neutrophils # (1.3-7.7) k/uL Lymphocytes # (1.0-4.8) k/uL Retic Count (0.5-2.0) % APTT (22.0-30.0) sec ABG pH (7.35-7.45) ABG pCO2 (35-45) mmHg ABG pO2 (83-108) mmHg ABG HCO3 (21-25) mmol/L ABG O2 Saturation (94-97) % Sodium (137-145) mmol/L Chloride (98-107) mmol/L Carbon Dioxide (22-30) mmol/L BUN (7-17) mg/dL Creatinine (0.52-1.04) mg/dL Glucose (74-99) mg/dL POC Glucose (mg/dL) 198 H 166 H (75-99) mg/dL Magnesium (1.6-2.3) mg/dL Total Bilirubin (0.2-1.3) mg/dL Lactate Dehydrogenase (313-618) U/L Total Protein (6.3-8.2) g/dL Albumin (3.5-5.0) g/dL Urine Protein (Negative) Urine Blood (Negative) Urine RBC (0-5) /hpf Urine Mucus (None) /hpf Crossmatch See Detail 03/02/21 03/02/21 03/02/21 Range/Units 04:23 06:24 07:49 WBC 18.8 H (3.8-10.6) k/uL RBC 2.36 L (3.80-5.40) m/uL Hgb 6.7 L* (11.4-16.0) gm/dL Hct 23.0 L (34.0-46.0) % MCHC 28.9 L (31.0-37.0) g/dL RDW 17.7 H (11.5-15.5) % Plt Count 88 L (150-450) k/uL Neutrophils # 17.5 H (1.3-7.7) k/uL Lymphocytes # 0.6 L (1.0-4.8) k/uL Retic Count 4.2 H (0.5-2.0) % APTT (22.0-30.0) sec ABG pH (7.35-7.45) ABG pCO2 (35-45) mmHg ABG pO2 (83-108) mmHg ABG HCO3 (21-25) mmol/L ABG O2 Saturation (94-97) % Sodium (137-145) mmol/L Chloride (98-107) mmol/L Carbon Dioxide (22-30) mmol/L BUN (7-17) mg/dL Creatinine (0.52-1.04) mg/dL Glucose (74-99) mg/dL POC Glucose (mg/dL) 185 H (75-99) mg/dL Magnesium (1.6-2.3) mg/dL Total Bilirubin (0.2-1.3) mg/dL Lactate Dehydrogenase (313-618) U/L Total Protein (6.3-8.2) g/dL Albumin (3.5-5.0) g/dL Urine Protein Trace H (Negative) Urine Blood Small H (Negative) Urine RBC 11 H (0-5) /hpf Urine Mucus Rare H (None) /hpf Crossmatch 03/02/21 03/02/21 03/02/21 Range/Units 07:49 10:03 11:50 WBC (3.8-10.6) k/uL RBC (3.80-5.40) m/uL Hgb (11.4-16.0) gm/dL Hct (34.0-46.0) % MCHC (31.0-37.0) g/dL RDW (11.5-15.5) % Plt Count (150-450) k/uL Neutrophils # (1.3-7.7) k/uL Lymphocytes # (1.0-4.8) k/uL Retic Count (0.5-2.0) % APTT 18.4 L (22.0-30.0) sec ABG pH (7.35-7.45) ABG pCO2 (35-45) mmHg ABG pO2 (83-108) mmHg ABG HCO3 (21-25) mmol/L ABG O2 Saturation (94-97) % Sodium 146 H (137-145) mmol/L Chloride 118 H (98-107) mmol/L Carbon Dioxide 19 L (22-30) mmol/L BUN 22 H (7-17) mg/dL Creatinine 1.05 H (0.52-1.04) mg/dL Glucose 151 H (74-99) mg/dL POC Glucose (mg/dL) 156 H (75-99) mg/dL Magnesium 2.4 H (1.6-2.3) mg/dL Total Bilirubin 1.5 H (0.2-1.3) mg/dL Lactate Dehydrogenase 1350 H (313-618) U/L Total Protein 5.9 L (6.3-8.2) g/dL Albumin 3.2 L (3.5-5.0) g/dL Urine Protein (Negative) Urine Blood (Negative) Urine RBC (0-5) /hpf Urine Mucus (None) /hpf Crossmatch 03/02/21 03/02/21 03/02/21 Range/Units 11:51 15:24 15:36 WBC (3.8-10.6) k/uL RBC (3.80-5.40) m/uL Hgb (11.4-16.0) gm/dL Hct (34.0-46.0) % MCHC (31.0-37.0) g/dL RDW (11.5-15.5) % Plt Count (150-450) k/uL Neutrophils # (1.3-7.7) k/uL Lymphocytes # (1.0-4.8) k/uL Retic Count (0.5-2.0) % APTT (22.0-30.0) sec ABG pH 7.21 L (7.35-7.45) ABG pCO2 50 H (35-45) mmHg ABG pO2 53 L* (83-108) mmHg ABG HCO3 20 L (21-25) mmol/L ABG O2 Saturation 81.5 L (94-97) % Sodium (137-145) mmol/L Chloride (98-107) mmol/L Carbon Dioxide (22-30) mmol/L BUN (7-17) mg/dL Creatinine (0.52-1.04) mg/dL Glucose (74-99) mg/dL POC Glucose (mg/dL) 184 H (75-99) mg/dL Magnesium (1.6-2.3) mg/dL Total Bilirubin (0.2-1.3) mg/dL Lactate Dehydrogenase (313-618) U/L Total Protein (6.3-8.2) g/dL Albumin (3.5-5.0) g/dL Urine Protein (Negative) Urine Blood (Negative) Urine RBC (0-5) /hpf Urine Mucus (None) /hpf Crossmatch See Detail
[2021-03-02] MEDS: LACTATED RINGERS 1,000 ML IV SCH (16:22)
[2021-03-02 17:04] LABS: Glucose,Whole Blood 185 mg/dL (75-99)
[2021-03-02 17:27] LABS: ABG Base Excess -8.5 mmol/L; ABG HCO3 20 mmol/L (21-25); ABG Oxygen Saturation 99.3 % (94-97); ABG PCO2 52 mmHg (35-45); ABG PO2 178 mmHg (83-108); ABG TCO2 21 mmol/L (19-24); Allen Test Performed? Yes
[2021-03-02 17:35] LABS: ABG PH 7.19 (7.35-7.45)
[2021-03-02] MEDS ORDERED: SODIUM BICARB 8.4% 50 ML SYR (1 MEQ/ML) IV STA (17:51)
--- NOTE | 2021-03-02 18:26 | P.PN ---
Subjective Progress Note Date: 03/02/21 Principal diagnosis: Respiratory distress Seen and evaluated this am, very short of breath. I attempted to call son Jay Jay, left voicemail. Spoke to RN who has discussed code status and patient is wanting full aggressive support. With increased hypoxia, HR and recent covid CTA was performed for potential PE. THis has resulted and negative. Objective - Vital Signs Vital signs: Vital Signs Temp 98.5 F 03/02/21 15:45 Pulse 126 H 03/02/21 16:34 Resp 18 03/02/21 16:34 BP 119/56 03/02/21 16:34 Pulse Ox 100 03/02/21 16:34 Intake & Output 03/01/21 03/02/21 03/02/21 18:59 06:59 18:59 Intake Total 125 0 Output Total 500 500 800 Balance -500 -375 -800 Weight 85.5 kg 85.5 kg Intake: Oral 125 Blood Product 0 Rc As-1 Unit 0 [id number] Output: Urine 500 100 Stool 400 800 Other: Voiding Method Indwelling Catheter Indwelling Catheter Indwelling Catheter - Exam - Constitutional General appearance: average body habitus, disheveled, successfully weaned and extubated - EENT Eyes: PERRLA Ears: bilateral: normal - Neck Neck: lymphadenopathy Carotids: bilateral: upstroke normal - Respiratory Respiratory: bilateral: diminished, increased respiratory distress worsening hypoxia - Cardiovascular irregular, irregular - Gastrointestinal General gastrointestinal: decreased bowel sounds, distended, soft - Neurologic open eyes follow simple commands moving all 4 extremity - Labs CBC & Chem 7: 03/02/21 07:49 03/02/21 07:49 Labs: Abnormal Lab Results - Last 24 Hours (Table) 02/18/21 03/01/21 03/02/21 Range/Units 07:40 20:25 04:23 WBC (3.8-10.6) k/uL RBC (3.80-5.40) m/uL Hgb (11.4-16.0) gm/dL Hct (34.0-46.0) % MCHC (31.0-37.0) g/dL RDW (11.5-15.5) % Plt Count (150-450) k/uL Neutrophils # (1.3-7.7) k/uL Lymphocytes # (1.0-4.8) k/uL Retic Count (0.5-2.0) % APTT (22.0-30.0) sec ABG pH (7.35-7.45) ABG pCO2 (35-45) mmHg ABG pO2 (83-108) mmHg ABG HCO3 (21-25) mmol/L ABG O2 Saturation (94-97) % Sodium (137-145) mmol/L Chloride (98-107) mmol/L Carbon Dioxide (22-30) mmol/L BUN (7-17) mg/dL Creatinine (0.52-1.04) mg/dL Glucose (74-99) mg/dL POC Glucose (mg/dL) 166 H (75-99) mg/dL Magnesium (1.6-2.3) mg/dL Total Bilirubin (0.2-1.3) mg/dL Lactate Dehydrogenase (313-618) U/L Total Protein (6.3-8.2) g/dL Albumin (3.5-5.0) g/dL Urine Protein Trace H (Negative) Urine Blood Small H (Negative) Urine RBC 11 H (0-5) /hpf Urine Mucus Rare H (None) /hpf Crossmatch See Detail 03/02/21 03/02/21 03/02/21 Range/Units 06:24 07:49 07:49 WBC 18.8 H (3.8-10.6) k/uL RBC 2.36 L (3.80-5.40) m/uL Hgb 6.7 L* (11.4-16.0) gm/dL Hct 23.0 L (34.0-46.0) % MCHC 28.9 L (31.0-37.0) g/dL RDW 17.7 H (11.5-15.5) % Plt Count 88 L (150-450) k/uL Neutrophils # 17.5 H (1.3-7.7) k/uL Lymphocytes # 0.6 L (1.0-4.8) k/uL Retic Count 4.2 H (0.5-2.0) % APTT (22.0-30.0) sec ABG pH (7.35-7.45) ABG pCO2 (35-45) mmHg ABG pO2 (83-108) mmHg ABG HCO3 (21-25) mmol/L ABG O2 Saturation (94-97) % Sodium 146 H (137-145) mmol/L Chloride 118 H (98-107) mmol/L Carbon Dioxide 19 L (22-30) mmol/L BUN 22 H (7-17) mg/dL Creatinine 1.05 H (0.52-1.04) mg/dL Glucose 151 H (74-99) mg/dL POC Glucose (mg/dL) 185 H (75-99) mg/dL Magnesium 2.4 H (1.6-2.3) mg/dL Total Bilirubin 1.5 H (0.2-1.3) mg/dL Lactate Dehydrogenase 1350 H (313-618) U/L Total Protein 5.9 L (6.3-8.2) g/dL Albumin 3.2 L (3.5-5.0) g/dL Urine Protein (Negative) Urine Blood (Negative) Urine RBC (0-5) /hpf Urine Mucus (None) /hpf Crossmatch 03/02/21 03/02/21 03/02/21 Range/Units 10:03 11:50 11:51 WBC (3.8-10.6) k/uL RBC (3.80-5.40) m/uL Hgb (11.4-16.0) gm/dL Hct (34.0-46.0) % MCHC (31.0-37.0) g/dL RDW (11.5-15.5) % Plt Count (150-450) k/uL Neutrophils # (1.3-7.7) k/uL Lymphocytes # (1.0-4.8) k/uL Retic Count (0.5-2.0) % APTT 18.4 L (22.0-30.0) sec ABG pH (7.35-7.45) ABG pCO2 (35-45) mmHg ABG pO2 (83-108) mmHg ABG HCO3 (21-25) mmol/L ABG O2 Saturation (94-97) % Sodium (137-145) mmol/L Chloride (98-107) mmol/L Carbon Dioxide (22-30) mmol/L BUN (7-17) mg/dL Creatinine (0.52-1.04) mg/dL Glucose (74-99) mg/dL POC Glucose (mg/dL) 156 H (75-99) mg/dL Magnesium (1.6-2.3) mg/dL Total Bilirubin (0.2-1.3) mg/dL Lactate Dehydrogenase (313-618) U/L Total Protein (6.3-8.2) g/dL Albumin (3.5-5.0) g/dL Urine Protein (Negative) Urine Blood (Negative) Urine RBC (0-5) /hpf Urine Mucus (None) /hpf Crossmatch See Detail 03/02/21 03/02/21 03/02/21 Range/Units 15:24 15:36 17:02 WBC (3.8-10.6) k/uL RBC (3.80-5.40) m/uL Hgb (11.4-16.0) gm/dL Hct (34.0-46.0) % MCHC (31.0-37.0) g/dL RDW (11.5-15.5) % Plt Count (150-450) k/uL Neutrophils # (1.3-7.7) k/uL Lymphocytes # (1.0-4.8) k/uL Retic Count (0.5-2.0) % APTT (22.0-30.0) sec ABG pH 7.21 L (7.35-7.45) ABG pCO2 50 H (35-45) mmHg ABG pO2 53 L* (83-108) mmHg ABG HCO3 20 L (21-25) mmol/L ABG O2 Saturation 81.5 L (94-97) % Sodium (137-145) mmol/L Chloride (98-107) mmol/L Carbon Dioxide (22-30) mmol/L BUN (7-17) mg/dL Creatinine (0.52-1.04) mg/dL Glucose (74-99) mg/dL POC Glucose (mg/dL) 184 H 185 H (75-99) mg/dL Magnesium (1.6-2.3) mg/dL Total Bilirubin (0.2-1.3) mg/dL Lactate Dehydrogenase (313-618) U/L Total Protein (6.3-8.2) g/dL Albumin (3.5-5.0) g/dL Urine Protein (Negative) Urine Blood (Negative) Urine RBC (0-5) /hpf Urine Mucus (None) /hpf Crossmatch 03/02/21 Range/Units 17:23 WBC (3.8-10.6) k/uL RBC (3.80-5.40) m/uL Hgb (11.4-16.0) gm/dL Hct (34.0-46.0) % MCHC (31.0-37.0) g/dL RDW (11.5-15.5) % Plt Count (150-450) k/uL Neutrophils # (1.3-7.7) k/uL Lymphocytes # (1.0-4.8) k/uL Retic Count (0.5-2.0) % APTT (22.0-30.0) sec ABG pH 7.19 L* (7.35-7.45) ABG pCO2 52 H (35-45) mmHg ABG pO2 178 H (83-108) mmHg ABG HCO3 20 L (21-25) mmol/L ABG O2 Saturation 99.3 H (94-97) % Sodium (137-145) mmol/L Chloride (98-107) mmol/L Carbon Dioxide (22-30) mmol/L BUN (7-17) mg/dL Creatinine (0.52-1.04) mg/dL Glucose (74-99) mg/dL POC Glucose (mg/dL) (75-99) mg/dL Magnesium (1.6-2.3) mg/dL Total Bilirubin (0.2-1.3) mg/dL Lactate Dehydrogenase (313-618) U/L Total Protein (6.3-8.2) g/dL Albumin (3.5-5.0) g/dL Urine Protein (Negative) Urine Blood (Negative) Urine RBC (0-5) /hpf Urine Mucus (None) /hpf Crossmatch Assessment and Plan Plan: Assessment and Plan Bicytopenia: Normocytic Anemia: 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 You can see where patient's counts have decreased during episodes of illness/admissions. Cytopenia workup has been ordered as no history of hematological work up in this medical record. HIT antibody - negative Transfuse to keep hemoglobin 7 or higher unless symptomatic. Hgb 7.3 Transfuse to keep platelets greater than 10,000 unless bleeding, platelets hve increased to 100K today, anticoagulant held per cardiology for bleeding Monitor for DIC Leukocytosis: - Increased WBC today, likely reactive -Steroids - Rodriguez cultures with worsening clinical picture Acute Hypoxic Respiratory: WOrsening today - Bilateral pneumonia - Increased Oxygenation need today, Pulmonary following. Repeat imaging. Chronic atrial fibrillation heart failure - Cardiology Following - AC therapy held due to dark stool concern for GI bleeding PLan: - CTA today for evaluation PE - PRBC Transfusion - Hemolysis labs pending, she is on Steroids, PPI
[2021-03-02] MEDS: LATANOPROST 0.005% OPHTH DROPS 2.5 ML BTL BOTH EYES SCH (20:02)
[2021-03-02] MEDS: FUROSEMIDE 10 MG/ML 4 ML VIAL IV SCH (20:03)
[2021-03-02] MEDS: LEVOTHYROXINE 112 MCG TAB OG-TUBE SCH (20:05)
[2021-03-02 20:42] LABS: Glucose,Whole Blood 178 mg/dL (75-99)
[2021-03-03] MEDS: DILTIAZEM 125 MG in SODIUM CHLORIDE 0.9% 100 ML IV SCH ×2 (05:38→11:05)
[2021-03-03 06:01] LABS: Glucose,Whole Blood 203 mg/dL (75-99)
[2021-03-03] MEDS: INSULIN ASPART (NovoLOG) 100 UNIT/ML VIAL SQ SCH ×2 (06:16→13:38)
[2021-03-03] MEDS: LACTATED RINGERS 1,000 ML IV SCH (06:18)
[2021-03-03] MEDS: PIPERACILLIN-TAZOBACTAM 3.375 GM in SODIUM CHLORIDE 0.9% 100 ML IVPB SCH (08:30)
[2021-03-03] MEDS: NITROGLYCERIN OINT 1 INCH/GM PACKET TOPICAL SCH (08:31)
[2021-03-03] MEDS: PANTOPRAZOLE 40 MG/10 ML VIAL IVP SCH (08:31)
[2021-03-03] MEDS: methylPREDNISolone SOD SUCCI 40 MG/ML 1 ML VIAL IV SCH (08:31)
[2021-03-03] MEDS: FUROSEMIDE 10 MG/ML 4 ML VIAL IV SCH (08:31)
[2021-03-03] MEDS: SENNOSIDES-DOCUSATE SODIUM 1 EACH TAB PO SCH (08:32)
[2021-03-03] MEDS: acetaZOLAMIDE 250 MG TAB PO SCH (08:32)
[2021-03-03] MEDS: CYANOCOBALAMIN 1,000 MCG/ML 1 ML VIAL SQ SCH (08:34)
[2021-03-03] MEDS: CHLORHEXIDINE GLUCONATE 15 ML CUP MUCOUS MEM SCH ×3 (08:34→16:41)
[2021-03-03] MEDS: ALBUTEROL HFA INHALER INHALATION SCH ×3 (09:18→15:18)
--- NOTE | 2021-03-03 09:57 | XR ---
EXAMINATION TYPE: XR chest 1V DATE OF EXAM: 03/03/2021 COMPARISON: Chest x-ray 03/01/2021 HISTORY: Abnormal chest x-ray TECHNIQUE: Single frontal view of the chest is obtained. FINDINGS: Left-sided PICC line is stable, distal tip over the superior vena cava. There is no eviden t pneumothorax or sizable effusion. Bilateral airspace disease, prominence interstitium is again note d. Cardiac mediastinal silhouette shows no interval change. Distortion of the proximal left humerus i s stable. IMPRESSION: Correlate for Covid 19 infection, pneumonia
[2021-03-03 10:04] LABS: Bilirubin, Conjugated 0.8 mg/dL (0.0-0.3); Bilirubin, Delta 0.7 mg/dL (0.0-0.2); Bilirubin,Unconjugated 0.6 mg/dL (0.0-1.1); Calcium 8.7 mg/dL (8.4-10.2); Magnesium 2.5 mg/dL (1.6-2.3); Potassium 3.4 mmol/L (3.5-5.1); Total Bilirubin 2.1 mg/dL (0.2-1.3); Total Protein 5.4 g/dL (6.3-8.2)
--- NOTE | 2021-03-03 10:17 | CT ---
EXAMINATION TYPE: CT brain wo con DATE OF EXAM: 03/03/2021 COMPARISON: 06/20/2019 HISTORY: Patient poor historian. CT DLP: 1188.[address] of the brain was performed. The ventricles, basal cisterns and sulci overlying the cerebral convexities demonstrate mild enlargem ent. There are remote insults involving the right frontal lobe and high left frontal lobe. There is e x vacuo dilatation. There is no evidence for intracranial hemorrhage or sulcal effacement. There is decreased attenuation about the periventricular white matter and deep white matter of both c erebral hemispheres, compatible with chronic small vessel ischemia. Differential diagnosis does inclu de demyelination. No mass effects are seen.No midline shift. Osseous calvarium is intact. If symptoms persist consider MRI. IMPRESSION: 1. Age related atrophic and chronic small vessel ischemic change without acute intracranial process s een at this time. Remote insults as noted.
[2021-03-03 10:20] LABS: Anisocytosis Slight; Basophils # (A) 0.1 k/uL (0-0.2); Basophils % (A) 0 %; Eosinophils % (A) 0 %; HCT 27.4 % (34.0-46.0); Hypochromasia Marked; Lymphocytes # (A) 0.6 k/uL (1.0-4.8); Lymphocytes % (A) 3 %; MCH 28.7 pg (25.0-35.0); MCHC 29.8 g/dL (31.0-37.0); MCV 96.3 fL (80.0-100.0); Macrocytosis Slight; Mean Platelet Volume 10.9; Monocytes # (A) 0.6 k/uL (0-1.0); Monocytes % (A) 3 %; Neutrophils # (A) 21.1 k/uL (1.3-7.7); Neutrophils % (A) 94 %; Poikilocytosis Marked; RBC 2.85 m/uL (3.80-5.40); RDW 17.7 % (11.5-15.5); WBC 22.5 k/uL (3.8-10.6)
[2021-03-03 10:21] LABS: D-Dimer 1.96 mg/L FEU (<0.60); HGB 8.2 gm/dL (11.4-16.0); INR 1.2 (<1.2); Platelet Count 71 k/uL (150-450); Prothrombin Time 12.2 sec (9.0-12.0)
[2021-03-03 10:25] LABS: Partial Thromboplastin Time 18.9 sec (22.0-30.0)
[2021-03-03 12:02] LABS: Glucose,Whole Blood 150 mg/dL (75-99)
--- NOTE | 2021-03-03 12:03 | P.PN ---
Subjective Progress Note Date: 03/03/21 Principal diagnosis: Acute hypoxic respiratory failure Bilateral progressive aspiration pneumonia Sepsis Chronic kidney disease Altered mental status due to sepsis and pneumonia Baseline history of chronic atrial fibrillation heart failure covid 19 has been negative 03/03/2021, patient seen eval examined during the rounds labs reviewed medications reviewed care plan discussed, respiratory status remains marginal patient the however does respond to verbal and physical stimuli with eyes opening, very weak, remains on BiPAP dependent, currently on BiPAP 15/10, blood pressure is 122/57, oxygen saturation is 95% on 45% oxygen,, rate is 14-16 tidal volume is around 370, labs reviewed white cell count is still high 22,000, patient remains on broad-spectrum antibiotics, hemoglobin stable after transfusion 8.2, BUN and and creatinine continued to go up suggestive of acute kidney injury, now progressive development into multiorgan failure, computed tomography scan of the head is negative however patient has more weakness on the left side bowel GI evaluation is pending 03/02/2021, patient seen eval examined during the rounds labs reviewed medications reviewed care plan discussed, patient seen and evaluated examined on third floor, she just had a computed tomography scan of the chest, patient has respiratory distress, not opening her eyes, on 4 L saturating in mid 80s, x-ray and CAT scan consistent with worsening of infiltrates bilaterally, she is afebrile, 4 L oxygen saturation 85% last checked blood pressure was 133/63 heart rate is 147, patient is in A. fib with RVR, computed tomography scan of the chest failed to show any pulmonary embolism, arterial blood gas has been ordered, patient to be kept nothing by mouth, patient is a full code at this time, these issues were discussed with the son in case if patient is intubated likelihood of recovery remains poor and likely that she will require tracheostomy and PEG tube as per son patient would not want it however final decision is pending, rapid response was called, arterial blood gas show significant hypoxemia and metabolic acidosis, BiPAP has been started with 100% oxygen will get a ABG after 2 hours blood pressure is stable patient remains in A. fib with RVR hemoglobin is down to 6.7 patient has ordered for transfusion of packed RBC 03/01/2021, patient seen eval reexamined during the rounds labs reviewed medications reviewed, patient sitting upright in chair breathing slightly better, and denies any chest pain, patient has been on 6 L oxygen shortness of breath still there, intermittent gurgling of secretions however noted in posterior pharynx, patient evaluated by aspiration studies, patient has significant delay in swallowing function with moderate to severe residual no active aspiration however is seen, hemoglobin dropped to 7.3, heparin drip is on hold, 02/28/2021, patient seen eval examined remains on 4 L oxygen she has a tendency of pooling secretions during sleep, able to make a good cough sitting upright and awake, speech and swallowing evaluating the patient for definitive recommendation about oral nutrition and support, ongoing dyspnea and shortness of breath and intermittent cough is present labs reviewed, A. fib with RVR improved, patient however remains on Cardizem drip and amiodarone along with broad-spectrum antibiotics 02/27/2021, patient seen eval examined during the rounds care plan discussed with RN, patient to much better when sitting upright and during awake swallowing function is still marginal, formal swallowing evaluation are being conducted by speech therapist later on today, patient currently on 3 L nasal cannula, remains on heparin and Cardizem drip, she has been started on Cardizem drip yesterdaymy labs reviewed BUN/creatinine is 24/1.04, 02/26/2021, patient seen eval examined during the rounds labs reviewed medications reviewed care plan discussed the staff at length, patient on the nebulizer treatment otherwise she is on 4 L, patient has been up on the chair most of the day yesterday and at nighttime now on bed, paradoxical respiration appeared to be more pronounced and prominent supine, patient remains nothing by mouth as she has been risk for aspiration, speech and swallow has been following, chest x-ray continued to show bilateral radicular opacities, no significant changes present, covert 19 testing has been negative, 02/25/2021, patient seen eval examined during the rounds labs reviewed medications reviewed care plan discussed with the staff at length patient is awake and alert, follows simple commands but has mild shortness of breath patient went into runs of A. fib with RVR, Cardizem has been started by cardiovascular services, for anticoagulation will resume Lovenox as platelet count is better and improved, her last PT OT to evaluate patient, patient remains nothing by mouth due to weak swallowing functions, patient remains on heparin for intermittent proximal atrial fibrillation 02/24/2021, patient seen and evaluated examined care plan discussed with the staff as well as the respiratory at length critical care time spent 35 minutes, patient was placed on CPAP of 5 pressure support and gradually titrated down to CPAP 5 and pressure support of 5, weaning parameters and arterial blood gases r eviewed patient does well, proceed with extubation successfully done on 4 L oxygen slide wheezing is present we'll continue steroids breathing treatments and antibiotics, patient is not ready for oral we'll change to oral metaproterenol to IV, patient has intermittent runs of the A. fib with RVR, due to thrombocytopenia lobe in next is being held at this point of time 02/23/2021, patient seen eval examined during the rounds labs reviewed medications reviewed care plan discussed, patient remains on full ventilator support, discussed with RN and respiratory therapist patient likely has very sma ll airway limiting air leak from the site of the ET tube, patient did well with CPAP and pressure support, would recommend to taper and DC the propofol drip do a CPAP and pressure support of trial started with CPAP 5 and pressure support of 10 and subsequently 5 and 5 and then obtain a blood gas and weaning parameters if patient does well and remains awake and alert will proceed with extubation hi m a chest x-ray reviewed as stable, reviewed potassium is 3.3 on potassium replacement protocol 02/22/2021, patient seen eval examined during the rounds labs reviewed medications reviewed patient remains on propofol, CPAP pressure support trial performed yesterday have been unsuccessful they were done on 5 of CPAP and pressure support of 5, we will stop the propofol today and developed pressure s upport trial of 10 with CPAP of 5 and 40% oxygen if tolerated well consider taking the tube out, he remains afebrile hemodynamically stable and stable oxygen saturation into mid 90s, labs are reviewed pH is 755 pCO2 29. 103, BUN/creatinine slightly up likely related to diuresis, 02/21/2021, patient seen eval examined during the rounds labs reviewed medications reviewed care plan discussed with the staff at length, patient is been down to 40% oxygen, been setting remains stable, propofol has been tapered to 15 mics now, patient is arousable, discussed with the respiratory therapist and nurse patient to go on CPAP pressure support. All drips stop the tube feed as well, will do weaning parameters, blood cultures have been negative, medications reviewed, chest x-ray stable ET tube slightly at the level of justo bilateral infiltrates are noted, noted respiratory alkalosis would recommend to do CPAP pressure support trial patient will automatically corrected 02/20/2021, patient seen eval examined during the rounds labs reviewed medications reviewed, patient is currently off of levo fed drip, euvolemic status appears to be present, however ventilator setting continued to have high FiO2 currently patient is on 60% oxygen over next 24 hours will try to wean down the oxygen, patient remains on broad-spectrum antibiotics no fever has been seen, urine output has been adequate, but patient has been replaced, radiographic studies labs reviewed care plan discussed with staff at length if patient is down to 40% and we will do a CPAP pressure support trial tomorrow morning, 2 feet can be initiated, 02/19/2021, patient seen eval examined during the rounds labs reviewed medications reviewed care plan discussed with the staff at length, patient remains on low dose of levo fed, unable to stop it as earlier this morning we stopped it but blood pressure dropped down requiring a reinitiation of levo fed, will require fluid bolus of the crystalloids 500 mL over 2 hours will be g iven, patient remains on full ventilator support currently patient is on FiO2 of 60%, with assist control rate of 20, tidal volume is 450, PEEP is 5, given hypotension cannot escalate the PEEP, first we'll try to taper off the levo fed then will taper the oxygen down by increasing PEEP, but cultures no growth so far, chest x-ray bilateral upper and mid lung field predominantly on the right side pneumonia stable ET tube, WBC have been lowered down to 12,000, arterial blood gas stable pO2 is 89, rash M is 3.2 BUN/creatinine improved to 20 and 1.03, currently patient is sedated with propofol drip, patient has a history of significant A. fib with RVR as well as moderate to severe mitral regurgitation, Patient is a 85-year-old [facility] resident brought into emergency department intubated on the field by EMS, she was having respiratory difficulties with argon of respiration, review of the records revealed that patient has a significant history of mood disorder depression hypertension and hypothyroidism, she has prior medical problems significant for atrial fibrillation not on any anticoagulation COPD heart failure dyslipidemia hypertension hypertensive cardiovascular disease and history of pulmonary hypertension history of stroke chronic kidney disease stage III, she used to smoke however stopped smoking several years ago, currently patient is on full ventilator support assist control of 20 breathing 20, PEEP of 5, 50% oxygen, tidal volume is 450, patient is on propofol 30 mics, hemodynamic status is stable patient is on levo fed 0.025, blood pressure is improved to 159/61, heart rate 63 saturation is 98%, EKG revealed left bundle-branch block, labs are significant for leukocytosis with WBC count is 16,000, hemoglobin and hematocrit 7.9 and 25, platelet count is 1 76,000, d-dimer is 4.86, lactic acid is up to 5.7 now came down to 2.2, subsequent 1 is 1.2, BUN/creatinine 27 1.19, coated 19 is negative, patient has received a dose of Lovenox and Zosyn and fluid boluses 1.5 L Objective - Vital Signs Vital signs: Vital Signs Temp 97.7 F 03/03/21 03:30 Pulse 108 H 03/03/21 03:30 Resp 15 03/03/21 03:30 BP 122/57 03/03/21 03:30 Pulse Ox 98 03/03/21 03:30 Intake & Output 03/02/21 03/03/21 03/03/21 18:59 06:59 18:59 Intake Total 0 539.25 81.75 Output Total 1300 1150 Balance -1300 -610.75 81.75 Weight 85.5 kg 83 kg Intake: Intake, IV Titration 229.25 81.75 Amount Diltiazem 125 mg In 229.25 81.75 Sodium Chloride 0.9% 100 ml @ 15 MG/HR 15 mls/hr IV .[id number] [facility] Rx#: [id number] Blood Product 0 310 Rc As-1 Unit 0 310 [id number] Output: Urine 500 1150 Stool 800 Other: Voiding Method Indwelling Catheter Indwelling Catheter - Exam - Constitutional General appearance: average body habitus, disheveled, arousable to verbal stimuli very weak, ill-appearing - EENT Eyes: PERRLA Ears: bilateral: normal - Neck Neck: lymphadenopathy Carotids: bilateral: upstroke normal - Respiratory Respiratory: bilateral: diminished - Cardiovascular Rhythm: regular Heart sounds: normal: S1, S2 - Gastrointestinal General gastrointestinal: decreased bowel sounds, distended, soft - Neurologic open eyes follow simple commands too weak to move all 4 extremity - Labs CBC & Chem 7: 03/03/21 09:25 03/03/21 09:25 Labs: Abnormal Lab Results - Last 24 Hours (Table) 02/18/21 03/02/21 03/02/21 Range/Units 07:40 07:49 11:51 WBC (3.8-10.6) k/uL RBC (3.80-5.40) m/uL Hgb (11.4-16.0) gm/dL Hct (34.0-46.0) % MCHC (31.0-37.0) g/dL RDW (11.5-15.5) % Plt Count (150-450) k/uL Neutrophils # (1.3-7.7) k/uL Lymphocytes # (1.0-4.8) k/uL Haptoglobin 202.0 H (31.2-198.0) mg/dL PT (9.0-12.0) sec INR (<1.2) APTT (22.0-30.0) sec D-Dimer (<0.60) mg/L FEU ABG pH (7.35-7.45) ABG pCO2 (35-45) mmHg ABG pO2 (83-108) mmHg ABG HCO3 (21-25) mmol/L ABG O2 Saturation (94-97) % Sodium (137-145) mmol/L Potassium (3.5-5.1) mmol/L Chloride (98-107) mmol/L BUN (7-17) mg/dL Creatinine (0.52-1.04) mg/dL Glucose (74-99) mg/dL POC Glucose (mg/dL) (75-99) mg/dL Magnesium (1.6-2.3) mg/dL Total Bilirubin (0.2-1.3) mg/dL Conjugated Bilirubin (0.0-0.3) mg/dL Delta Bilirubin (0.0-0.2) mg/dL AST (14-36) U/L ALT (4-34) U/L Total Protein (6.3-8.2) g/dL Albumin (3.5-5.0) g/dL Crossmatch See Detail See Detail 03/02/21 03/02/21 03/02/21 Range/Units 15:24 15:36 17:02 WBC (3.8-10.6) k/uL RBC (3.80-5.40) m/uL Hgb (11.4-16.0) gm/dL Hct (34.0-46.0) % MCHC (31.0-37.0) g/dL RDW (11.5-15.5) % Plt Count (150-450) k/uL Neutrophils # (1.3-7.7) k/uL Lymphocytes # (1.0-4.8) k/uL Haptoglobin (31.2-198.0) mg/dL PT (9.0-12.0) sec INR (<1.2) APTT (22.0-30.0) sec D-Dimer (<0.60) mg/L FEU ABG pH 7.21 L (7.35-7.45) ABG pCO2 50 H (35-45) mmHg ABG pO2 53 L* (83-108) mmHg ABG HCO3 20 L (21-25) mmol/L ABG O2 Saturation 81.5 L (94-97) % Sodium (137-145) mmol/L Potassium (3.5-5.1) mmol/L Chloride (98-107) mmol/L BUN (7-17) mg/dL Creatinine (0.52-1.04) mg/dL Glucose (74-99) mg/dL POC Glucose (mg/dL) 184 H 185 H (75-99) mg/dL Magnesium (1.6-2.3) mg/dL Total Bilirubin (0.2-1.3) mg/dL Conjugated Bilirubin (0.0-0.3) mg/dL Delta Bilirubin (0.0-0.2) mg/dL AST (14-36) U/L ALT (4-34) U/L Total Protein (6.3-8.2) g/dL Albumin (3.5-5.0) g/dL Crossmatch 03/02/21 03/02/21 03/03/21 Range/Units 17:23 20:40 06:00 WBC (3.8-10.6) k/uL RBC (3.80-5.40) m/uL Hgb (11.4-16.0) gm/dL Hct (34.0-46.0) % MCHC (31.0-37.0) g/dL RDW (11.5-15.5) % Plt Count (150-450) k/uL Neutrophils # (1.3-7.7) k/uL Lymphocytes # (1.0-4.8) k/uL Haptoglobin (31.2-198.0) mg/dL PT (9.0-12.0) sec INR (<1.2) APTT (22.0-30.0) sec D-Dimer (<0.60) mg/L FEU ABG pH 7.19 L* (7.35-7.45) ABG pCO2 52 H (35-45) mmHg ABG pO2 178 H (83-108) mmHg ABG HCO3 20 L (21-25) mmol/L ABG O2 Saturation 99.3 H (94-97) % Sodium (137-145) mmol/L Potassium (3.5-5.1) mmol/L Chloride (98-107) mmol/L BUN (7-17) mg/dL Creatinine (0.52-1.04) mg/dL Glucose (74-99) mg/dL POC Glucose (mg/dL) 178 H 203 H (75-99) mg/dL Magnesium (1.6-2.3) mg/dL Total Bilirubin (0.2-1.3) mg/dL Conjugated Bilirubin (0.0-0.3) mg/dL Delta Bilirubin (0.0-0.2) mg/dL AST (14-36) U/L ALT (4-34) U/L Total Protein (6.3-8.2) g/dL Albumin (3.5-5.0) g/dL Crossmatch 03/03/21 03/03/21 03/03/21 Range/Units 09:25 09:25 09:25 WBC 22.5 H (3.8-10.6) k/uL RBC 2.85 L (3.80-5.40) m/uL Hgb 8.2 L D (11.4-16.0) gm/dL Hct 27.4 L (34.0-46.0) % MCHC 29.8 L (31.0-37.0) g/dL RDW 17.7 H (11.5-15.5) % Plt Count 71 L (150-450) k/uL Neutrophils # 21.1 H (1.3-7.7) k/uL Lymphocytes # 0.6 L (1.0-4.8) k/uL Haptoglobin (31.2-198.0) mg/dL PT 12.2 H (9.0-12.0) sec INR 1.2 H (<1.2) APTT 18.9 L (22.0-30.0) sec D-Dimer 1.96 H (<0.60) mg/L FEU ABG pH (7.35-7.45) ABG pCO2 (35-45) mmHg ABG pO2 (83-108) mmHg ABG HCO3 (21-25) mmol/L ABG O2 Saturation (94-97) % Sodium 149 H (137-145) mmol/L Potassium 3.4 L (3.5-5.1) mmol/L Chloride 119 H (98-107) mmol/L BUN 33 H (7-17) mg/dL Creatinine 1.83 H (0.52-1.04) mg/dL Glucose 132 H (74-99) mg/dL POC Glucose (mg/dL) (75-99) mg/dL Magnesium 2.5 H (1.6-2.3) mg/dL Total Bilirubin 2.1 H (0.2-1.3) mg/dL Conjugated Bilirubin 0.8 H (0.0-0.3) mg/dL Delta Bilirubin 0.7 H (0.0-0.2) mg/dL AST 42 H (14-36) U/L ALT 44 H (4-34) U/L Total Protein 5.4 L (6.3-8.2) g/dL Albumin 3.0 L (3.5-5.0) g/dL Crossmatch Microbiology - Last 24 Hours (Table) 03/02/21 07:49 Blood Culture - Preliminary Blood No Growth after 24 hours 03/02/21 07:49 Blood Culture - Preliminary Blood No Growth after 24 hours Assessment and Plan Assessment: Progressive weakness more so on the left side compared right side Acute hypoxic respiratory failure Acute kidney injury likely related to ATN versus contrast nephropathy Bilateral aspiration pneumonia Generalized weakness A. fib with RVR Severe hypoxia TV anemia Thrombocytopenia Unstable upper airway patient being kept nothing by mouth for risk of aspiration, Paradoxical respiration especially in supine posture, would prefer to patient to stay upright on bed or sit on the chair hypokalemia Sepsis thrombocytopenia Chronic kidney disease Valvular heart disease with mitral regurgitation Altered mental status due to sepsis and pneumonia Baseline history of chronic atrial fibrillation heart failure Testing covidr 19 has been negative Plan: Trend renal function may need nephrology evaluation however overall long-term prognosis is very poor patient is now no code Status post Transfusion of 2 units packed RBC BiPAP support Neurological evaluation pending replace potassium as per protocol Keep nothing by mouth until he gets more definitive recommendation from speech and swallow Continue therapy for atrial fibrillation Monitor and observe platelet closely Echocardiogram results reviewed ejection fraction is 60%,, with mild to moderate aortic stenosis, severe pulmonary hypertension was noted right ventricle systolic pressure estimated to be 76, Broad-spectrum antibiotics Bronchodilators IV steroids Further plan of care and recommendation as per clinical response of the patient PT OT to evaluate and treat Speech and language following the patient Time with Patient: Greater than 30
[2021-03-03] MEDS ORDERED: Potassium Replacement Protocol 1 EACH MISC MISCELLANE PRN (12:17)
[2021-03-03] MEDS ORDERED: POTASSIUM CHLORIDE 20 MEQ in WATER FOR INJECTION 1 100ML.BAG IVPB SCH (12:30)
--- NOTE | 2021-03-03 12:53 | P.PN ---
Subjective From records: This is a very pleasant 85-year-old patient of Dr. Maya. Currently at [facility]. Chronic stable medical conditions include COPD, paroxysmal atrial fibrillation, hypertension, hyperlipidemia, GERD, osteoarthritis, secondary pulmonary hypertension, hypothyroid, rosacea, osteoarthritis, urine stress incontinence,CHF from diastolic dysfunction EF 55- 60%, severe mitral regurgitation, moderate mitral stenosis, moderate tricuspid regurgitation, secondary pulmonary hypertension. Diverticulosis. at her baseline uses a cane and a walker. EMS was called out as patient had been lethargic all day. Patient is compla ining that she is not feeling well. One hour prior to the EMS arrival patient became increasingly short of breath. Patient at baseline is 3 L of nasal cannula. And patient became less responsive and breathing worsen. 4 days ago patient had a negative COVID testing. When EMS arrived patient's found to have agonal respiration. Telemetry showed sinus rhythm. Patient is intubated. This afternoon patient has FiO2 15 of PEEP of 5. Drips included propofol and norepinephrine. Telemetry shows sinus rhythm. Admitted with bilateral pneumonia, acute respiratory arrest on ventilator support. Started on IV Zosyn, Levothroid, propofol, IV Solu-Medrol, bronchodilators. Extubated February 24. Today: Laying in bed. Awake. Following commands. Finding it difficult to phonate. Congested cough. Very poor oral hygiene Subjective: 02/28/2021 This is a pleasant 85 years old female with multiple medical problems was admitted to the ICU for bilateral pneumonia with respiration dispensed suspected and paroxysmal atrial fibrillation with RVR, acute COPD exacerbation, bicytopenia and valvular heart disease. Originally patient is from [facility]. She got extubated and transported to the general medical floor at [facility]. Today patient lying in bed slightly tachypneic, very weak, she answers some questions with dyspnea. She denies chest pain or palpitation or dizziness. She still complaining of from lateral cough. She still nothing by mouth and there is some bleeding in her throat while she is on heparin drip with hemoglobin slightly trended down to 8.1 down to 7.4, cardiology team discontinued her heparin drip due to bleeding. Her CTA on admission showing no PE with extensive bilateral consolidation on 02/19. She is on 4 L oxygen compared to 3 l/m yesterday with a breathing rate of 22 breaths per minute, her tachycardia slightly better today. Also hematology and pulmonary team on the case She remains on amiodarone and Cardizem drips, some Medrol 40 mg twice daily, Zosyn and normal cyanotic 50 mL/h. Heparin drip was discontinued 03/01/2021 Patient remains moderately cystic, she still tachypnea on face back in 6 L of oxygen however during the day her oxygen delivery was dropped to 4-5 L/m. She still slightly tachypneic at 20-22, as her for her to talk, she scan of the drowsy with a coughing. Swallow evaluation done since yesterday showing delayed swallow with moderate to severe residual and no aspiration. There is also evidence of GI bleed to heparin drip was stopped, her hemoglobin is stable at 7.3. We'll start iron pills. Surgical team are planning for EGD and possible PEG tube placement tomorrow. Patient still tachycardic around 111. Her amiodarone and Cardizem drip were switched to oral medication now per chemistry teacher. Patient remains a Doll catheter. She denies chest pain or dizziness or diarrhea or palpitation. She still had persistent leukocytosis of 13 K, platelets are round 97K. She is also on Solu-Medrol 40 mg twice daily, doxepin last cycling and Zosyn and Protonix 03/02/2021 Patient is still feels generally weak, this morning she was alert and awake and follow commands however she is very tired, barely she can talk with one or 2 sentences. Her breathing is affecting her ability to talk as well. She is slightly tachycardic with regular rate 18-22 breaths per minute. Her oxygen saturation is about 85% on 4 L of oxygen via nasal cannula. On exam she has bilateral chest dictation suspicious for fluid overload. Chest x-ray from yesterday showing increased bilateral patchy interstitial opacity. Yesterday she was nothing by mouth and she supposed to get PEG/EGD done by surgery team however this was canceled because she started swallowing and I placed however this morning when retested she failed swallowing evaluation again, so oral medication were held and patient was placed back on IV medication. Her crit went up in 140s so Cardizem drip was started with the aid of the chemistry teacher. We will contact surgery for possible EGD. That her labs are showing low hemoglobin at 6.7 from 7.3 yesterday, 1 unit of blood is ordered. She is allowed leukocytosis 18 K while she is on steroids. Platelets are stable at 80 8K. Sodium is slightly up at 146, creatinine is 1.05. Because of chest congestion or leg edema, patient was started on IV Lasix especially she's getting 1 unit of blood transfusion as well. She is currently placed back on Cardizem drip because she is nothing by mouth. 40 mg of IV Lasix, Solu-Medrol 40 mg twice daily, doxycycline and Zosyn. Increase Protonix to 40 mg twice daily Prognosis remains guarded Discussed with staff 03/03/2021 Yesterday patient became unresponsive and status discussed with son who decided to make her DO NOT RESUSCITATE This morning patient was still unresponsive, on BiPAP, she was moving her right side only, her left side upper and lower part was flaccid, stroke suspected and neurologist team were consulted. I discussed the case with Dr. Liriano agrees to start is highly likely, he recommended MRI of the brain. However I discussed the case with his son Mr. Goyal and updated them about the patient complication including her severe 3 moderate to severe follow-up regurgitation and stenosis, diastolic CHF and A. fib, GI bleed at known eating with the plan to undergo endoscopy and possible PEG tube placement, current complication of stroke is highly suspected, her pulmonary condition with possible pneumonia on her spectrum antibiotics, the patient being unable to eat or drink. Acidotic. And being unresponsive and other complications. Her son verbalized understanding and acceptance and all his questions were answered to his satisfaction, we decided to stop aggressive measurement and to make her Comfort Care. He agrees to keep the medication to hospice nurse evaluated the patient and make her comfort care/hospice which looks eligible and given her advanced age with multiple complex medical problems with complications. The life expectancy even with treatment would be few days to weeks expected based UPON HER MULTIPLE COMORBIDITIES ABOVE Objective - Vital Signs Vital signs: Vital Signs Temp 97.7 F 03/03/21 03:30 Pulse 108 H 03/03/21 03:30 Resp 15 03/03/21 03:30 BP 122/57 03/03/21 03:30 Pulse Ox 98 03/03/21 03:30 Intake & Output 03/02/21 03/03/21 03/03/21 18:59 06:59 18:59 Intake Total 0 539.25 81.75 Output Total 1300 1150 Balance -1300 -610.75 81.75 Weight 85.5 kg 83 kg Intake: Intake, IV Titration 229.25 81.75 Amount Diltiazem 125 mg In 229.25 81.75 Sodium Chloride 0.9% 100 ml @ 15 MG/HR 15 mls/hr IV .[id number] [facility] Rx#: [id number] Blood Product 0 310 Rc As-1 Unit 0 310 [id number] Output: Urine 500 1150 Stool 800 Other: Voiding Method Indwelling Catheter Indwelling Catheter - Exam -GENERAL: The patient is unresponsive, on BiPAP, in mild to moderate acute respiratory distress. Obese HEENT: Pupils are round and equally reacting to light. EOMI. No scleral icterus. No conjunctival pallor. Normocephalic, atraumatic. No pharyngeal erythema. No thyromegaly. CARDIOVASCULAR: S1 and S2 present. No murmurs, rubs, or gallops. -PULMONARY: Chest is clear to auscultation, no wheezing . Bilateral basal crepitation ABDOMEN: Soft, nontender, nondistended, normoactive bowel sounds. No palpable organomegaly. MUSCULOSKELETAL: No joint swelling or deformity. -EXTREMITIES: No cyanosis, clubbing, . Bilateral pitting leg edema. -Neurological: Flaccid l weakness of eft upper and lower extremities SKIN: No rashes. no petechiae. - Labs CBC & Chem 7: 03/03/21 09:25 03/03/21 09:25 Labs: Abnormal Lab Results - Last 24 Hours (Table) 02/18/21 03/02/21 03/02/21 Range/Units 07:40 07:49 11:51 WBC (3.8-10.6) k/uL RBC (3.80-5.40) m/uL Hgb (11.4-16.0) gm/dL Hct (34.0-46.0) % MCHC (31.0-37.0) g/dL RDW (11.5-15.5) % Plt Count (150-450) k/uL Neutrophils # (1.3-7.7) k/uL Lymphocytes # (1.0-4.8) k/uL Haptoglobin 202.0 H (31.2-198.0) mg/dL PT (9.0-12.0) sec INR (<1.2) APTT (22.0-30.0) sec D-Dimer (<0.60) mg/L FEU ABG pH (7.35-7.45) ABG pCO2 (35-45) mmHg ABG pO2 (83-108) mmHg ABG HCO3 (21-25) mmol/L ABG O2 Saturation (94-97) % Sodium (137-145) mmol/L Potassium (3.5-5.1) mmol/L Chloride (98-107) mmol/L BUN (7-17) mg/dL Creatinine (0.52-1.04) mg/dL Glucose (74-99) mg/dL POC Glucose (mg/dL) (75-99) mg/dL Magnesium (1.6-2.3) mg/dL Total Bilirubin (0.2-1.3) mg/dL Conjugated Bilirubin (0.0-0.3) mg/dL Delta Bilirubin (0.0-0.2) mg/dL AST (14-36) U/L ALT (4-34) U/L Total Protein (6.3-8.2) g/dL Albumin (3.5-5.0) g/dL Crossmatch See Detail See Detail 03/02/21 03/02/21 03/02/21 Range/Units 15:24 15:36 17:02 WBC (3.8-10.6) k/uL RBC (3.80-5.40) m/uL Hgb (11.4-16.0) gm/dL Hct (34.0-46.0) % MCHC (31.0-37.0) g/dL RDW (11.5-15.5) % Plt Count (150-450) k/uL Neutrophils # (1.3-7.7) k/uL Lymphocytes # (1.0-4.8) k/uL Haptoglobin (31.2-198.0) mg/dL PT (9.0-12.0) sec INR (<1.2) APTT (22.0-30.0) sec D-Dimer (<0.60) mg/L FEU ABG pH 7.21 L (7.35-7.45) ABG pCO2 50 H (35-45) mmHg ABG pO2 53 L* (83-108) mmHg ABG HCO3 20 L (21-25) mmol/L ABG O2 Saturation 81.5 L (94-97) % Sodium (137-145) mmol/L Potassium (3.5-5.1) mmol/L Chloride (98-107) mmol/L BUN (7-17) mg/dL Creatinine (0.52-1.04) mg/dL Glucose (74-99) mg/dL POC Glucose (mg/dL) 184 H 185 H (75-99) mg/dL Magnesium (1.6-2.3) mg/dL Total Bilirubin (0.2-1.3) mg/dL Conjugated Bilirubin (0.0-0.3) mg/dL Delta Bilirubin (0.0-0.2) mg/dL AST (14-36) U/L ALT (4-34) U/L Total Protein (6.3-8.2) g/dL Albumin (3.5-5.0) g/dL Crossmatch 03/02/21 03/02/21 03/03/21 Range/Units 17:23 20:40 06:00 WBC (3.8-10.6) k/uL RBC (3.80-5.40) m/uL Hgb (11.4-16.0) gm/dL Hct (34.0-46.0) % MCHC (31.0-37.0) g/dL RDW (11.5-15.5) % Plt Count (150-450) k/uL Neutrophils # (1.3-7.7) k/uL Lymphocytes # (1.0-4.8) k/uL Haptoglobin (31.2-198.0) mg/dL PT (9.0-12.0) sec INR (<1.2) APTT (22.0-30.0) sec D-Dimer (<0.60) mg/L FEU ABG pH 7.19 L* (7.35-7.45) ABG pCO2 52 H (35-45) mmHg ABG pO2 178 H (83-108) mmHg ABG HCO3 20 L (21-25) mmol/L ABG O2 Saturation 99.3 H (94-97) % Sodium (137-145) mmol/L Potassium (3.5-5.1) mmol/L Chloride (98-107) mmol/L BUN (7-17) mg/dL Creatinine (0.52-1.04) mg/dL Glucose (74-99) mg/dL POC Glucose (mg/dL) 178 H 203 H (75-99) mg/dL Magnesium (1.6-2.3) mg/dL Total Bilirubin (0.2-1.3) mg/dL Conjugated Bilirubin (0.0-0.3) mg/dL Delta Bilirubin (0.0-0.2) mg/dL AST (14-36) U/L ALT (4-34) U/L Total Protein (6.3-8.2) g/dL Albumin (3.5-5.0) g/dL Crossmatch 03/03/21 03/03/21 03/03/21 Range/Units 09:25 09:25 09:25 WBC 22.5 H (3.8-10.6) k/uL RBC 2.85 L (3.80-5.40) m/uL Hgb 8.2 L D (11.4-16.0) gm/dL Hct 27.4 L (34.0-46.0) % MCHC 29.8 L (31.0-37.0) g/dL RDW 17.7 H (11.5-15.5) % Plt Count 71 L (150-450) k/uL Neutrophils # 21.1 H (1.3-7.7) k/uL Lymphocytes # 0.6 L (1.0-4.8) k/uL Haptoglobin (31.2-198.0) mg/dL PT 12.2 H (9.0-12.0) sec INR 1.2 H (<1.2) APTT 18.9 L (22.0-30.0) sec D-Dimer 1.96 H (<0.60) mg/L FEU ABG pH (7.35-7.45) ABG pCO2 (35-45) mmHg ABG pO2 (83-108) mmHg ABG HCO3 (21-25) mmol/L ABG O2 Saturation (94-97) % Sodium 149 H (137-145) mmol/L Potassium 3.4 L (3.5-5.1) mmol/L Chloride 119 H (98-107) mmol/L BUN 33 H (7-17) mg/dL Creatinine 1.83 H (0.52-1.04) mg/dL Glucose 132 H (74-99) mg/dL POC Glucose (mg/dL) (75-99) mg/dL Magnesium 2.5 H (1.6-2.3) mg/dL Total Bilirubin 2.1 H (0.2-1.3) mg/dL Conjugated Bilirubin 0.8 H (0.0-0.3) mg/dL Delta Bilirubin 0.7 H (0.0-0.2) mg/dL AST 42 H (14-36) U/L ALT 44 H (4-34) U/L Total Protein 5.4 L (6.3-8.2) g/dL Albumin 3.0 L (3.5-5.0) g/dL Crossmatch 03/03/21 Range/Units 11:59 WBC (3.8-10.6) k/uL RBC (3.80-5.40) m/uL Hgb (11.4-16.0) gm/dL Hct (34.0-46.0) % MCHC (31.0-37.0) g/dL RDW (11.5-15.5) % Plt Count (150-450) k/uL Neutrophils # (1.3-7.7) k/uL Lymphocytes # (1.0-4.8) k/uL Haptoglobin (31.2-198.0) mg/dL PT (9.0-12.0) sec INR (<1.2) APTT (22.0-30.0) sec D-Dimer (<0.60) mg/L FEU ABG pH (7.35-7.45) ABG pCO2 (35-45) mmHg ABG pO2 (83-108) mmHg ABG HCO3 (21-25) mmol/L ABG O2 Saturation (94-97) % Sodium (137-145) mmol/L Potassium (3.5-5.1) mmol/L Chloride (98-107) mmol/L BUN (7-17) mg/dL Creatinine (0.52-1.04) mg/dL Glucose (74-99) mg/dL POC Glucose (mg/dL) 150 H (75-99) mg/dL Magnesium (1.6-2.3) mg/dL Total Bilirubin (0.2-1.3) mg/dL Conjugated Bilirubin (0.0-0.3) mg/dL Delta Bilirubin (0.0-0.2) mg/dL AST (14-36) U/L ALT (4-34) U/L Total Protein (6.3-8.2) g/dL Albumin (3.5-5.0) g/dL Crossmatch Microbiology - Last 24 Hours (Table) 03/02/21 07:49 Blood Culture - Preliminary Blood No Growth after 24 hours 03/02/21 07:49 Blood Culture - Preliminary Blood No Growth after 24 hours Assessment and Plan Assessment: -bilateral aspiration pneumonia. -Acute on chronic diastolic dysfunction with ejection fraction 55-60% -Acute hypoxic respiratory failure, secondary to pneumonia -Dysphagia following extubation, with contribution from poor oral hygiene. -Acute COPD exacerbation in an [id number] -Severe mitral regurgitation, moderate mitral stenosis, moderate tricuspid regurgitation -Secondary moderate pulmonary hypertension from COPD and CHF -Possible acute GI bleed. Possible bleeding from her throat while on heparin drip which is stopped now. -Essential hypertension -GERD -Primary osteoarthritis -Hypothyroid -Chronic urinary stress incontinence -Chronic diverticulosis -Chronic gait dysfunction uses walker -Left bundle-branch block, chronic -Paroxysmal atrial fibrillation, with RVR -New-onset of thrombocytopenia. Platelet count above 50. -Metabolic alkalosis likely from volume contraction -Acute kidney injury likely prerenal from diuresis -Acute metabolic encephalopathy multifactorial Plan: This is a pleasant 85 years old female who presents with pneumonia and COPD and A. fib. Continue with amiodarone and Cardizem oral medication per cardiology team. Discontinue anticoagulation due to bleeding from her throat with a significant drop in hemoglobin needing tenderness of blood transfusion yesterday . I discussed the case with son who is documented next of Kin, he wants her to be comfort care. Consult hospice team was placed Discussed with staff and bedside nurse Patient currently is DO NOT RESUSCITATE, DO NOT INTUBATE Prognosis is extremely poor
[2021-03-03 14:38] LABS: % Iron Saturation 19.79 (12.00-45.00)
[2021-03-03 14:41] VITALS: BMI 33.5
[2021-03-03] MEDS ORDERED: SODIUM CHLORIDE 0.9% 1,000 ML IV SCH (14:45)
[2021-03-03 14:49] LABS: Ferritin 312.4 ng/mL (10.0-291.0)
--- NOTE | 2021-03-03 15:02 | P.PN ---
Subjective HISTORY OF PRESENT ILLNESS: 02/27/2021 This is an 85-year-old female who presented to the emergency room secondary to shortness of breath. Patient was found to be in respiratory distress. Patient was placed on mechanical ventilation. She was extubated over the weekend. She remains NPO and is scheduled for a swallow study per nursing. She remains on IV heparin and IV amio at 0.5mg/min. Patient remains in atrial fibrillation with uncontrolled ventricular rates in the 120s. Patient is on 3 L nasal cannula with oxygen saturations greater than 90%. Blood pressure 138/66. She is afebrile. Echocardiogram completed reveals ejection fraction 55-60%, mild aortic regurgitation, mild aortic stenosis, severe mitral regurgitation, [id number] mitral stenosis, severe tricuspid regurgitation, severe pulmonary hypertension, and small generalized pericardial effusion. 02/28/2021 Patient examined at the bedside this morning by Dr. Spence. Patient remains in atrial fibrillation with fairly controlled heart rates. She remains NPO.She remains on IV amio at 0.5mg/min and Cardizem at 10mg/hr. Nursing reports she has been having some blood in her mouth. She is on a heparin drip. Hemoglobin 7.4, down from 8.1. 03/01 Parient seen and examined. Patient denies any chest pain. Feels that she is somewhat better with her SOB. Had a video swallow study and able to tolerate meds. Telemetry reviewed with Atrial flutter with controlled rates in the 70- 80's. 03/02 Patient seen and examined. Patient was attempted to be transitioned to oral medications as she was initially taking some medications however has had worsened status with inability to take oral medications. Therefore her metoprolol was stopped. She was attempted with Cardizem push however heart rates continue to be in the 120s and 130s. Her hemoglobin did decrease below 7 and packed red blood cells were ordered. She is lethargic and not answering questions however following some commands. She does have oral secretions which she appears to be unable to clear. There were recommendations for endoscopy however procedure was canceled yesterday secondary to clincal status. 03/03/21: Patient seen and examined. Patient is still not answering questions appropriately. Patient's family made her DNR yesterday. Blood pressure 152/69, HR 90-115 on telemetry in Atrial fibrillation. Laboratory data reviewed, sodium 149, potassium 3.4, serum cranium 1.3, BUN 33, LFTs slightly elevated. PHYSICAL EXAM: VITAL SIGNS: Reviewed. GENERAL: Well-developed, ill appearing, unable to clear oral secretions with mucous/saliva down her mouth NECK: Supple. No JVD or thyromegaly LUNGS: Lungs diminished bilaterally. Patient with upper airway congestion and audible gurgling on examination. HEART: Irregular rate and rhythm. S1 and S2 heard. Systolic murmur noted. EXTREMITIES: Normal range of motion. No clubbing or cyanosis. Peripheral pulses intact. No lower extremity edema ASSESSMENT: Acute hypoxic respiratory failure initially requiring mechanical ventilation Bilateral pneumonia Leukocytosis Valvular heart disease Small generalized pericardial effusion Severe pulmonary hypertension Paroxysmal atrial fibrillation with RVR, not on retirement anticoagulation due to history of GI bleeding Typical atrial flutter Acute on chronic diastolic heart failure, EF 55-60%, resolved COPD Chronic kidney disease Acute anemia Hypernatremia PLAN: Will start IV fluids at 80mL/hr and reassess BMP tomorrow Stop IV Lasix patient does not appear fluid overload on exam Will continue Cardizem drip at this time. No anticoagulation secondary to anemia. Prognosis guarded and patient appears to be deteriorating. Continue with supportive care. Objective - Vital Signs Vital signs: Vital Signs Temp 97.0 F L 03/03/21 12:00 Pulse 111 H 03/03/21 13:42 Resp 24 03/03/21 13:42 BP 152/69 03/03/21 12:00 Pulse Ox 98 03/03/21 03:30 Intake & Output 03/02/21 03/03/21 03/03/21 18:59 06:59 18:59 Intake Total 0 539.25 241.75 Output Total 1300 1150 1100 Balance -1300 -610.75 -858.25 Weight 85.5 kg 83 kg Intake: Intake, IV Titration 229.25 241.75 Amount Diltiazem 125 mg In 229.25 81.75 Sodium Chloride 0.9% 100 ml @ 15 MG/HR 15 mls/hr IV .Q8H20M [facility] Rx#: [id number] Lactated Ringers 1,000 ml 60 @ 20 mls/hr IV .Q24H [facility] Rx#:[id number] Piperacillin-Tazobactam 3 100 .375 gm In Sodium Chloride 0.9% 100 ml @ 25 mls/hr IVPB Q8HR [facility] Rx# :[id number] Blood Product 0 310 Rc As-1 Unit 0 310 [id number] Output: Urine 500 1150 1100 Stool 800 Other: Voiding Method Indwelling Catheter Indwelling Catheter Indwelling Catheter - Labs CBC & Chem 7: 03/03/21 09:25 03/03/21 09:25 Labs: Abnormal Lab Results - Last 24 Hours (Table) 02/18/21 03/02/21 03/02/21 Range/Units 07:40 07:49 11:51 WBC (3.8-10.6) k/uL RBC (3.80-5.40) m/uL Hgb (11.4-16.0) gm/dL Hct (34.0-46.0) % MCHC (31.0-37.0) g/dL RDW (11.5-15.5) % Plt Count (150-450) k/uL Neutrophils # (1.3-7.7) k/uL Lymphocytes # (1.0-4.8) k/uL Haptoglobin 202.0 H (31.2-198.0) mg/dL PT (9.0-12.0) sec INR (<1.2) APTT (22.0-30.0) sec D-Dimer (<0.60) mg/L FEU ABG pH (7.35-7.45) ABG pCO2 (35-45) mmHg ABG pO2 (83-108) mmHg ABG HCO3 (21-25) mmol/L ABG O2 Saturation (94-97) % Sodium (137-145) mmol/L Potassium (3.5-5.1) mmol/L Chloride (98-107) mmol/L BUN (7-17) mg/dL Creatinine (0.52-1.04) mg/dL Glucose (74-99) mg/dL POC Glucose (mg/dL) (75-99) mg/dL Magnesium (1.6-2.3) mg/dL Total Bilirubin (0.2-1.3) mg/dL Conjugated Bilirubin (0.0-0.3) mg/dL Delta Bilirubin (0.0-0.2) mg/dL AST (14-36) U/L ALT (4-34) U/L Total Protein (6.3-8.2) g/dL Albumin (3.5-5.0) g/dL Crossmatch See Detail See Detail 03/02/21 03/02/21 03/02/21 Range/Units 15:24 15:36 17:02 WBC (3.8-10.6) k/uL RBC (3.80-5.40) m/uL Hgb (11.4-16.0) gm/dL Hct (34.0-46.0) % MCHC (31.0-37.0) g/dL RDW (11.5-15.5) % Plt Count (150-450) k/uL Neutrophils # (1.3-7.7) k/uL Lymphocytes # (1.0-4.8) k/uL Haptoglobin (31.2-198.0) mg/dL PT (9.0-12.0) sec INR (<1.2) APTT (22.0-30.0) sec D-Dimer (<0.60) mg/L FEU ABG pH 7.21 L (7.35-7.45) ABG pCO2 50 H (35-45) mmHg ABG pO2 53 L* (83-108) mmHg ABG HCO3 20 L (21-25) mmol/L ABG O2 Saturation 81.5 L (94-97) % Sodium (137-145) mmol/L Potassium (3.5-5.1) mmol/L Chloride (98-107) mmol/L BUN (7-17) mg/dL Creatinine (0.52-1.04) mg/dL Glucose (74-99) mg/dL POC Glucose (mg/dL) 184 H 185 H (75-99) mg/dL Magnesium (1.6-2.3) mg/dL Total Bilirubin (0.2-1.3) mg/dL Conjugated Bilirubin (0.0-0.3) mg/dL Delta Bilirubin (0.0-0.2) mg/dL AST (14-36) U/L ALT (4-34) U/L Total Protein (6.3-8.2) g/dL Albumin (3.5-5.0) g/dL Crossmatch 03/02/21 03/02/21 03/03/21 Range/Units 17:23 20:40 06:00 WBC (3.8-10.6) k/uL RBC (3.80-5.40) m/uL Hgb (11.4-16.0) gm/dL Hct (34.0-46.0) % MCHC (31.0-37.0) g/dL RDW (11.5-15.5) % Plt Count (150-450) k/uL Neutrophils # (1.3-7.7) k/uL Lymphocytes # (1.0-4.8) k/uL Haptoglobin (31.2-198.0) mg/dL PT (9.0-12.0) sec INR (<1.2) APTT (22.0-30.0) sec D-Dimer (<0.60) mg/L FEU ABG pH 7.19 L* (7.35-7.45) ABG pCO2 52 H (35-45) mmHg ABG pO2 178 H (83-108) mmHg ABG HCO3 20 L (21-25) mmol/L ABG O2 Saturation 99.3 H (94-97) % Sodium (137-145) mmol/L Potassium (3.5-5.1) mmol/L Chloride (98-107) mmol/L BUN (7-17) mg/dL Creatinine (0.52-1.04) mg/dL Glucose (74-99) mg/dL POC Glucose (mg/dL) 178 H 203 H (75-99) mg/dL Magnesium (1.6-2.3) mg/dL Total Bilirubin (0.2-1.3) mg/dL Conjugated Bilirubin (0.0-0.3) mg/dL Delta Bilirubin (0.0-0.2) mg/dL AST (14-36) U/L ALT (4-34) U/L Total Protein (6.3-8.2) g/dL Albumin (3.5-5.0) g/dL Crossmatch 03/03/21 03/03/21 03/03/21 Range/Units 09:25 09:25 09:25 WBC 22.5 H (3.8-10.6) k/uL RBC 2.85 L (3.80-5.40) m/uL Hgb 8.2 L D (11.4-16.0) gm/dL Hct 27.4 L (34.0-46.0) % MCHC 29.8 L (31.0-37.0) g/dL RDW 17.7 H (11.5-15.5) % Plt Count 71 L (150-450) k/uL Neutrophils # 21.1 H (1.3-7.7) k/uL Lymphocytes # 0.6 L (1.0-4.8) k/uL Haptoglobin (31.2-198.0) mg/dL PT 12.2 H (9.0-12.0) sec INR 1.2 H (<1.2) APTT 18.9 L (22.0-30.0) sec D-Dimer 1.96 H (<0.60) mg/L FEU ABG pH (7.35-7.45) ABG pCO2 (35-45) mmHg ABG pO2 (83-108) mmHg ABG HCO3 (21-25) mmol/L ABG O2 Saturation (94-97) % Sodium 149 H (137-145) mmol/L Potassium 3.4 L (3.5-5.1) mmol/L Chloride 119 H (98-107) mmol/L BUN 33 H (7-17) mg/dL Creatinine 1.83 H (0.52-1.04) mg/dL Glucose 132 H (74-99) mg/dL POC Glucose (mg/dL) (75-99) mg/dL Magnesium 2.5 H (1.6-2.3) mg/dL Total Bilirubin 2.1 H (0.2-1.3) mg/dL Conjugated Bilirubin 0.8 H (0.0-0.3) mg/dL Delta Bilirubin 0.7 H (0.0-0.2) mg/dL AST 42 H (14-36) U/L ALT 44 H (4-34) U/L Total Protein 5.4 L (6.3-8.2) g/dL Albumin 3.0 L (3.5-5.0) g/dL Crossmatch 03/03/21 Range/Units 11:59 WBC (3.8-10.6) k/uL RBC (3.80-5.40) m/uL Hgb (11.4-16.0) gm/dL Hct (34.0-46.0) % MCHC (31.0-37.0) g/dL RDW (11.5-15.5) % Plt Count (150-450) k/uL Neutrophils # (1.3-7.7) k/uL Lymphocytes # (1.0-4.8) k/uL Haptoglobin (31.2-198.0) mg/dL PT (9.0-12.0) sec INR (<1.2) APTT (22.0-30.0) sec D-Dimer (<0.60) mg/L FEU ABG pH (7.35-7.45) ABG pCO2 (35-45) mmHg ABG pO2 (83-108) mmHg ABG HCO3 (21-25) mmol/L ABG O2 Saturation (94-97) % Sodium (137-145) mmol/L Potassium (3.5-5.1) mmol/L Chloride (98-107) mmol/L BUN (7-17) mg/dL Creatinine (0.52-1.04) mg/dL Glucose (74-99) mg/dL POC Glucose (mg/dL) 150 H (75-99) mg/dL Magnesium (1.6-2.3) mg/dL Total Bilirubin (0.2-1.3) mg/dL Conjugated Bilirubin (0.0-0.3) mg/dL Delta Bilirubin (0.0-0.2) mg/dL AST (14-36) U/L ALT (4-34) U/L Total Protein (6.3-8.2) g/dL Albumin (3.5-5.0) g/dL Crossmatch Microbiology - Last 24 Hours (Table) 03/02/21 07:49 Blood Culture - Preliminary Blood No Growth after 24 hours 03/02/21 07:49 Blood Culture - Preliminary Blood No Growth after 24 hours
--- NOTE | 2021-03-03 15:24 | P.PN ---
Subjective Progress Note Date: 03/03/21 CHIEF COMPLAINT: Worsening shortness of breath HISTORY OF PRESENT ILLNESS: Surgical service is following in regards to patient's GI bleed. EGD canceled yesterday due to patient's worsening respiratory status. Patient remains on BiPAP and is lethargic. She did receive 2 units of blood yesterday for hemoglobin is 6.7. Repeat hemoglobin is 8.2. She is afebrile. WBC is 22.5 hemoglobin 8.2 platelets 71 sodium 149 potassium 3.4 creatinine 1.83 patient's CODE STATUS is now no code. Patient did have a bowel movement. PHYSICAL EXAM: VITAL SIGNS: Reviewed. GENERAL: Well-developed in no acute distress. HEENT: No sclera icterus. Extraocular movements grossly intact. Moist buccal mucosa. Head is atraumatic, normocephalic. ABDOMEN: Soft. Nondistended. Nontender. ASSESSMENT: 1. Acute GI bleed with black tarry stools and anemia 2. Moderate protein calorie malnutrition 3. Sepsis with pneumonia 4. Acute hypoxic respiratory failure had been requiring mechanical ventilation 5. Paroxysmal atrial fibrillation 6. Prior history of GI bleeding 7. Cardiac history 8. Chronic kidney disease 9. COPD exacerbation PLAN: -Unable to perform EGD due to patient's worsening respiratory status -Continue IV Protonix -Also will continue to monitor patient during this admission for possible PEG tube placement. Physician Disability Coordinator note has been reviewed by physician. Signing provider agrees with the documented findings, assessment, and plan of care. Objective - Vital Signs Vital signs: Vital Signs Temp 97.0 F L 03/03/21 12:00 Pulse 111 H 03/03/21 13:42 Resp 24 03/03/21 13:42 BP 152/69 03/03/21 12:00 Pulse Ox 98 03/03/21 03:30 Intake & Output 03/02/21 03/03/21 03/03/21 18:59 06:59 18:59 Intake Total 0 539.25 241.75 Output Total 1300 1150 1100 Balance -1300 -610.75 -858.25 Weight 85.5 kg 83 kg 83 kg Intake: Intake, IV Titration 229.25 241.75 Amount Diltiazem 125 mg In 229.25 81.75 Sodium Chloride 0.9% 100 ml @ 15 MG/HR 15 mls/hr IV .Q8H20M [facility] Rx#: [id number] Lactated Ringers 1,000 ml 60 @ 20 mls/hr IV .Q24H [facility] Rx#:[id number] Piperacillin-Tazobactam 3 100 .375 gm In Sodium Chloride 0.9% 100 ml @ 25 mls/hr IVPB Q8HR [facility] Rx# :[id number] Blood Product 0 310 Rc As-1 Unit 0 310 [id number] Output: Urine 500 1150 1100 Stool 800 Other: Voiding Method Indwelling Catheter Indwelling Catheter Indwelling Catheter - Labs CBC & Chem 7: 03/03/21 09:25 03/03/21 09:25 Labs: Abnormal Lab Results - Last 24 Hours (Table) 02/18/21 03/02/21 03/02/21 Range/Units 07:40 07:49 07:49 WBC (3.8-10.6) k/uL RBC (3.80-5.40) m/uL Hgb (11.4-16.0) gm/dL Hct (34.0-46.0) % MCHC (31.0-37.0) g/dL RDW (11.5-15.5) % Plt Count (150-450) k/uL Neutrophils # (1.3-7.7) k/uL Lymphocytes # (1.0-4.8) k/uL Haptoglobin 202.0 H (31.2-198.0) mg/dL PT (9.0-12.0) sec INR (<1.2) APTT (22.0-30.0) sec D-Dimer (<0.60) mg/L FEU ABG pH (7.35-7.45) ABG pCO2 (35-45) mmHg ABG pO2 (83-108) mmHg ABG HCO3 (21-25) mmol/L ABG O2 Saturation (94-97) % Sodium (137-145) mmol/L Potassium (3.5-5.1) mmol/L Chloride (98-107) mmol/L BUN (7-17) mg/dL Creatinine (0.52-1.04) mg/dL Glucose (74-99) mg/dL POC Glucose (mg/dL) (75-99) mg/dL Magnesium (1.6-2.3) mg/dL Ferritin 312.4 H (10.0-291.0) ng/mL Total Bilirubin (0.2-1.3) mg/dL Conjugated Bilirubin (0.0-0.3) mg/dL Delta Bilirubin (0.0-0.2) mg/dL AST (14-36) U/L ALT (4-34) U/L Total Protein (6.3-8.2) g/dL Albumin (3.5-5.0) g/dL Crossmatch See Detail 03/02/21 03/02/21 03/02/21 Range/Units 11:51 15:24 15:36 WBC (3.8-10.6) k/uL RBC (3.80-5.40) m/uL Hgb (11.4-16.0) gm/dL Hct (34.0-46.0) % MCHC (31.0-37.0) g/dL RDW (11.5-15.5) % Plt Count (150-450) k/uL Neutrophils # (1.3-7.7) k/uL Lymphocytes # (1.0-4.8) k/uL Haptoglobin (31.2-198.0) mg/dL PT (9.0-12.0) sec INR (<1.2) APTT (22.0-30.0) sec D-Dimer (<0.60) mg/L FEU ABG pH 7.21 L (7.35-7.45) ABG pCO2 50 H (35-45) mmHg ABG pO2 53 L* (83-108) mmHg ABG HCO3 20 L (21-25) mmol/L ABG O2 Saturation 81.5 L (94-97) % Sodium (137-145) mmol/L Potassium (3.5-5.1) mmol/L Chloride (98-107) mmol/L BUN (7-17) mg/dL Creatinine (0.52-1.04) mg/dL Glucose (74-99) mg/dL POC Glucose (mg/dL) 184 H (75-99) mg/dL Magnesium (1.6-2.3) mg/dL Ferritin (10.0-291.0) ng/mL Total Bilirubin (0.2-1.3) mg/dL Conjugated Bilirubin (0.0-0.3) mg/dL Delta Bilirubin (0.0-0.2) mg/dL AST (14-36) U/L ALT (4-34) U/L Total Protein (6.3-8.2) g/dL Albumin (3.5-5.0) g/dL Crossmatch See Detail 03/02/21 03/02/21 03/02/21 Range/Units 17:02 17:23 20:40 WBC (3.8-10.6) k/uL RBC (3.80-5.40) m/uL Hgb (11.4-16.0) gm/dL Hct (34.0-46.0) % MCHC (31.0-37.0) g/dL RDW (11.5-15.5) % Plt Count (150-450) k/uL Neutrophils # (1.3-7.7) k/uL Lymphocytes # (1.0-4.8) k/uL Haptoglobin (31.2-198.0) mg/dL PT (9.0-12.0) sec INR (<1.2) APTT (22.0-30.0) sec D-Dimer (<0.60) mg/L FEU ABG pH 7.19 L* (7.35-7.45) ABG pCO2 52 H (35-45) mmHg ABG pO2 178 H (83-108) mmHg ABG HCO3 20 L (21-25) mmol/L ABG O2 Saturation 99.3 H (94-97) % Sodium (137-145) mmol/L Potassium (3.5-5.1) mmol/L Chloride (98-107) mmol/L BUN (7-17) mg/dL Creatinine (0.52-1.04) mg/dL Glucose (74-99) mg/dL POC Glucose (mg/dL) 185 H 178 H (75-99) mg/dL Magnesium (1.6-2.3) mg/dL Ferritin (10.0-291.0) ng/mL Total Bilirubin (0.2-1.3) mg/dL Conjugated Bilirubin (0.0-0.3) mg/dL Delta Bilirubin (0.0-0.2) mg/dL AST (14-36) U/L ALT (4-34) U/L Total Protein (6.3-8.2) g/dL Albumin (3.5-5.0) g/dL Crossmatch 03/03/21 03/03/21 03/03/21 Range/Units 06:00 09:25 09:25 WBC 22.5 H (3.8-10.6) k/uL RBC 2.85 L (3.80-5.40) m/uL Hgb 8.2 L D (11.4-16.0) gm/dL Hct 27.4 L (34.0-46.0) % MCHC 29.8 L (31.0-37.0) g/dL RDW 17.7 H (11.5-15.5) % Plt Count 71 L (150-450) k/uL Neutrophils # 21.1 H (1.3-7.7) k/uL Lymphocytes # 0.6 L (1.0-4.8) k/uL Haptoglobin (31.2-198.0) mg/dL PT (9.0-12.0) sec INR (<1.2) APTT (22.0-30.0) sec D-Dimer (<0.60) mg/L FEU ABG pH (7.35-7.45) ABG pCO2 (35-45) mmHg ABG pO2 (83-108) mmHg ABG HCO3 (21-25) mmol/L ABG O2 Saturation (94-97) % Sodium 149 H (137-145) mmol/L Potassium 3.4 L (3.5-5.1) mmol/L Chloride 119 H (98-107) mmol/L BUN 33 H (7-17) mg/dL Creatinine 1.83 H (0.52-1.04) mg/dL Glucose 132 H (74-99) mg/dL POC Glucose (mg/dL) 203 H (75-99) mg/dL Magnesium 2.5 H (1.6-2.3) mg/dL Ferritin (10.0-291.0) ng/mL Total Bilirubin 2.1 H (0.2-1.3) mg/dL Conjugated Bilirubin 0.8 H (0.0-0.3) mg/dL Delta Bilirubin 0.7 H (0.0-0.2) mg/dL AST 42 H (14-36) U/L ALT 44 H (4-34) U/L Total Protein 5.4 L (6.3-8.2) g/dL Albumin 3.0 L (3.5-5.0) g/dL Crossmatch 03/03/21 03/03/21 Range/Units 09:25 11:59 WBC (3.8-10.6) k/uL RBC (3.80-5.40) m/uL Hgb (11.4-16.0) gm/dL Hct (34.0-46.0) % MCHC (31.0-37.0) g/dL RDW (11.5-15.5) % Plt Count (150-450) k/uL Neutrophils # (1.3-7.7) k/uL Lymphocytes # (1.0-4.8) k/uL Haptoglobin (31.2-198.0) mg/dL PT 12.2 H (9.0-12.0) sec INR 1.2 H (<1.2) APTT 18.9 L (22.0-30.0) sec D-Dimer 1.96 H (<0.60) mg/L FEU ABG pH (7.35-7.45) ABG pCO2 (35-45) mmHg ABG pO2 (83-108) mmHg ABG HCO3 (21-25) mmol/L ABG O2 Saturation (94-97) % Sodium (137-145) mmol/L Potassium (3.5-5.1) mmol/L Chloride (98-107) mmol/L BUN (7-17) mg/dL Creatinine (0.52-1.04) mg/dL Glucose (74-99) mg/dL POC Glucose (mg/dL) 150 H (75-99) mg/dL Magnesium (1.6-2.3) mg/dL Ferritin (10.0-291.0) ng/mL Total Bilirubin (0.2-1.3) mg/dL Conjugated Bilirubin (0.0-0.3) mg/dL Delta Bilirubin (0.0-0.2) mg/dL AST (14-36) U/L ALT (4-34) U/L Total Protein (6.3-8.2) g/dL Albumin (3.5-5.0) g/dL Crossmatch Microbiology - Last 24 Hours (Table) 03/02/21 07:49 Blood Culture - Preliminary Blood No Growth after 24 hours 03/02/21 07:49 Blood Culture - Preliminary Blood No Growth after 24 hours
[2021-03-03 16:39] VITALS: BP 136/84; PULSE 113; RESP 22; TEMP 98
[2021-03-03 17:05] LABS: Glucose,Whole Blood 221 mg/dL (75-99)
--- NOTE | 2021-03-03 19:22 | P.CNNES ---
History of Present Illness Consult date: 03/03/21 Requesting physician: Carlos E Sheet Reason for Consult: New onset left-sided weakness, unresponsiveness History of Present Illness: Patient is a 85-year-old female came to the hospital by ambulance on 02/18/2021 for shortness of breath. Patient was noted to be in agonal breathing, and was intubated at the scene. Patient was diagnosed with Covid infection. Patient was admitted to ICU. Subsequently she was extubated and was transferred to regular floor. Patient also passed swallow and was doing better. On Saturday 3 days ago, she started getting worse and her breathing was worse requiring BiPAP. Yesterday she was alert and awake, but then had an episode of unresponsiveness. Her saturation went down to 85% on 4 L. Patient also has possible GI bleed with positive occult blood. Patient's hemoglobin went down and required blood transfusion. Patient also has developed paroxysmal atrial fibrillation. Byron thomas has been getting better and then worse a few times since in the hospital. This morning patient was noted to have left-sided weakness, was not talking. CT head showed age-related atrophic and chronic small vessel ischemic changes without acute intracranial process seen at this time. Remote insults are noted in the right frontal lobe and the high left frontal lobe. There is ex vacuo dilation. Chest x-ray revealed correlate for covid 19 infection pneumonia. Patient's blood test shows WBC 22.5, hemoglobin 8.2, platelets 71. PT 12.2 INR 1.2. PH is 7.19 pCO2 52, pO2 178, saturation 99.3. Sodium 149 potassium 3.4, BUN 33, creatinine 1.83. AST 42, ALT 44. Patient's B12 488 on 02/21/2021, methylmalonic acid was mildly elevated 0.48/0.40, RBC folate normal. TSH is decreased 0.147 and free T4 is slightly elevated 3.61. Stool occult blood positive. Patient lives in [place] in [place]. Review of Systems Patient on BiPAP. ROS unobtainable: due to mental status Past Medical History Past Medical History: Atrial Fibrillation, Asthma, Cancer, Heart Failure, COPD, CVA/TIA, Eye Disorder, GERD/Reflux, GI Bleed, Hyperlipidemia, Hypertension, Osteoarthritis (OA), Pneumonia, Renal Disease, Skin Disorder, Thyroid Disorder, Vascular Disorder Additional Past Medical History / Comment(s): Pt recently admitted to [facility] on 01/06/21 with exacerbation COPD/pne. Other hx: Lower GI bleed with acute blood loss anemia, thrombocytopenia, gastritis/duodenitis, 2002 colon cancer with surgery/chemo and radiation, chronic hypoxic respiratory failure, home O2 at 2L/NC ATC, pulmonary HTN, pleurisy, chronic kidney disease stage III, CVA with slight speech difficulty, heart murmur, glaucoma bilaterally, hypothyroid, rosacia, UTIs, urine stress incontinence, constipation, diverticular disease, benign polyps, arthritis multiple joints, chronic low back pain, past fall with L hip fracture and R patellar fracture, rib fracture, L humeral fracture with L shoulder pain, sinus problems, 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 done(donor site was abd), bilateral carpal tunnel releases, R patella fused d/t fracture, krista cataracts, colonoscopy/polypectomy Past Anesthesia/Blood Transfusion Reactions: No Reported Reaction Smoking Status: Former smoker - Past Family History Father Family Medical History: Liver Disease Additional Family Medical History / Comment(s): ETOH abuse - cirrhosis of the liver Mother Family Medical History: Vascular Disorder Additional Family Medical History / Comment(s): Brain aneurysm Medications and Allergies Home Medications Medication Instructions Recorded Confirmed Type Citalopram Hydrobromide [CeleXA] 20 mg PO DAILY 11/30/16 03/03/21 History rOPINIRole HCL [Requip] 2 mg PO HS 11/02/17 03/03/21 History Ferrous Sulfate [Feosol] 325 mg PO BID 12/25/18 03/03/21 History Ascorbic Acid [Vitamin C] 500 mg PO DAILY 12/16/20 03/03/21 History Latanoprost Ophth [Xalatan 0.005%] 1 drop BOTH EYES HS@199912/16/20 03/03/21 History Metoprolol Tartrate [Lopressor] 50 mg PO TID@0500,1300,2100 12/16/20 03/03/21 History Sennosides-Docusate Sodium 1 tab PO DAILY #1 tablet 12/22/20 03/03/21 Rx [Senokot-S] Aspirin 81 mg PO DAILY 01/06/21 03/03/21 History Levothyroxine Sodium [Synthroid] 112 mcg PO HS 01/06/21 03/03/21 History Losartan Potassium 100 mg PO DAILY 01/06/21 03/03/21 History Amiodarone [Cordarone] 200 mg PO DAILY tab 01/08/21 03/03/21 Rx Famotidine [Pepcid] 20 mg PO DAILY tab 01/09/21 03/03/21 Rx Furosemide [Lasix] 40 mg PO DAILY tab 01/09/21 03/03/21 Rx HYDROcodone/APAP 10-325MG [[place] 1 tab PO Q12H PRN #4 tab 01/09/21 03/03/21 Rx 10-325] Ipratropium-Albuterol Nebulize 3 ml INHALATION RT-Q4H PRN ml 01/09/21 03/03/21 Rx [Duoneb 0.5 mg-3 mg/3 ml Soln] Cholecalciferol [Vitamin D3 (25 25 mcg PO DAILY 02/18/21 03/03/21 History Mcg = 1000 Iu)] Spironolactone 25 mg PO DAILY 02/18/21 03/03/21 History traMADol HCl [Ultram] 50 mg PO Q6HR PRN 02/18/21 03/03/21 History Allergies Allergy/AdvReac Type Severity Reaction Status Date / Time codeine AdvReac does not Verified 03/03/21 18:[address] it makes her feel sulfamethoxazole AdvReac does not Verified 03/03/21 18:57 [From Bactrim] like the way it makes her feel trimethoprim [From Bactrim] AdvReac does not Verified 03/03/21 18:[address] it makes her feel Physical Examination - Vital Signs Vital Signs: Vital Signs Temp Pulse Pulse Resp BP BP Pulse Ox 03/03/21 03:30 97.7 F 108 H 15 122/57 98 03/02/21 23:35 98 F 108 H 18 126/60 97 03/02/21 20:00 98.1 F 117 H 25 H 154/67 98 03/02/21 19:38 121 H 20 152/68 97 03/02/21 19:37 126 H 17 163/72 03/02/21 19:36 126 H 18 163/72 97 03/02/21 16:34 126 H 18 119/56 100 03/02/21 16:04 128 H 18 128/55 100 03/02/21 16:00 131 H 18 151/58 100 03/02/21 15:54 129 H 18 122/57 100 03/02/21 15:45 98.5 F 131 H 18 142/67 100 03/02/21 14:00 147 H 18 03/02/21 12:00 147 H 18 133/63 85 L Intake and Output 03/02/21 03/03/21 03/03/21 22:59 06:59 14:59 Intake Total 414.25 125 Output Total 750 400 Balance -335.75 -275 Intake: Intake, IV Titration 104.25 125 Amount Diltiazem 125 mg In 104.25 125 Sodium Chloride 0.9% 100 ml @ 15 MG/HR 15 mls/hr IV .[id number] [facility] Rx#: [id number] Blood Product 310 Rc As-1 Unit 310 [id number] Output: Urine 750 400 Other: Voiding Method Indwelling Catheter Indwelling Catheter Weight 83 kg On examination patient is an elderly female, who is in iqiq-he-gyqsxfzo respiratory distress, on BiPAP. Patient does appear alert and awake. Her pupils are round and reacting. Visual dukes could not be tested. Patient extraocular muscles appear somewhat intact. Questionable left facial droopiness noted through BiPAP although was questionable. Could not check her tongue, palate, hearing or shoulder shrug. On muscle strength testing her left arm appears weaker, drops much faster than the right side. Patient was able to hold her right arm much better. Patient has amputated right hand from before. Patient able to lift her legs about 20% of the bed bilaterally. Patient's left ankle appears slightly weaker than the right. Reflexes are diminished and plantars are flat bilaterally. Patient withdraws equally to pain. Tone is slightly decreased in the left side. Gait cannot be checked. Results - Laboratory Findings CBC and BMP: 03/03/21 09:25 03/03/21 09:25 Abnormal Lab Findings: Abnormal Labs 02/18/21 02/18/21 02/18/21 04:03 04:16 04:16 WBC 16.1 H RBC 2.71 L Hgb 7.9 L Hct 25.7 L MCHC 30.7 L RDW 15.8 H Plt Count Neutrophils # 13.5 H Lymphocytes # Retic Count PT INR APTT 20.1 L D-Dimer 4.86 H ABG pH ABG pCO2 ABG pO2 208 H ABG HCO3 ABG Total CO2 26 H ABG O2 Saturation 100.0 H Sodium Potassium Chloride Carbon Dioxide BUN Creatinine Glucose POC Glucose (mg/dL) Plasma Lactic Acid Onofre Calcium Magnesium Iron % Saturation Total Bilirubin Conjugated Bilirubin Delta Bilirubin AST ALT Lactate Dehydrogenase Total Protein Total Protein (PEP) Albumin Albumin (PEP) Ptjpe-0-Vkxvxipxe Beta Globulins Methylmalonic Acid RBC Folate Procalcitonin TSH Free T4 Urine Protein Urine Blood Ur Leukocyte Esterase Urine RBC Urine WBC Amorphous Sediment Urine Bacteria Hyaline Casts Urine Mucus Stool Occult Blood Free [place] LC, Quant Free Lambda LC, Quant Crossmatch 02/18/21 02/18/21 02/18/21 04:16 04:16 04:16 WBC RBC Hgb Hct MCHC RDW Plt Count Neutrophils # Lymphocytes # Retic Count PT INR APTT D-Dimer ABG pH ABG pCO2 ABG pO2 ABG HCO3 ABG Total CO2 ABG O2 Saturation Sodium Potassium Chloride Carbon Dioxide BUN 27 H Creatinine 1.19 H Glucose 248 H POC Glucose (mg/dL) Plasma Lactic Acid Onofre 5.7 H* Calcium Magnesium Iron % Saturation Total Bilirubin Conjugated Bilirubin Delta Bilirubin AST ALT Lactate Dehydrogenase Total Protein 5.8 L Total Protein (PEP) Albumin 3.0 L Albumin (PEP) Dmjcl-0-Bgzpuidqx Beta Globulins Methylmalonic Acid RBC Folate Procalcitonin TSH Free T4 Urine Protein 1+ H Urine Blood Ur Leukocyte Esterase Urine RBC Urine WBC Amorphous Sediment Rare H Urine Bacteria Rare H Hyaline Casts 37 H Urine Mucus Rare H Stool Occult Blood Free [place] LC, Quant Free Lambda LC, Quant Crossmatch 02/18/21 02/18/21 02/18/21 07:40 07:40 Unknown WBC RBC Hgb Hct MCHC RDW Plt Count Neutrophils # Lymphocytes # Retic Count PT INR APTT D-Dimer ABG pH ABG pCO2 ABG pO2 ABG HCO3 ABG Total CO2 ABG O2 Saturation Sodium Potassium Chloride Carbon Dioxide BUN Creatinine Glucose POC Glucose (mg/dL) Plasma Lactic Acid Onofre 2.2 H* Calcium Magnesium Iron % Saturation Total Bilirubin Conjugated Bilirubin Delta Bilirubin AST ALT Lactate Dehydrogenase Total Protein Total Protein (PEP) Albumin Albumin (PEP) Iyyug-7-Tzguyeebp Beta Globulins Methylmalonic Acid RBC Folate Procalcitonin TSH Free T4 Urine Protein Trace H Urine Blood Ur Leukocyte Esterase Trace H Urine RBC Urine WBC 6 H Amorphous Sediment Urine Bacteria Hyaline Casts 3 H Urine Mucus Rare H Stool Occult Blood Free [place] LC, Quant Free Lambda LC, Quant Crossmatch See Detail 02/19/21 02/19/21 02/19/21 05:29 05:29 06:05 WBC 12.0 H RBC 2.65 L Hgb 7.4 L Hct 25.2 L MCHC 29.4 L RDW 16.3 H Plt Count 122 L Neutrophils # 8.9 H Lymphocytes # Retic Count PT INR APTT D-Dimer ABG pH 7.48 H ABG pCO2 ABG pO2 ABG HCO3 27 H ABG Total CO2 28 H ABG O2 Saturation 98.4 H Sodium Potassium 3.2 L Chloride 111 H Carbon Dioxide BUN 20 H Creatinine Glucose 111 H POC Glucose (mg/dL) Plasma Lactic Acid Onofre Calcium 7.9 L Magnesium Iron % Saturation Total Bilirubin Conjugated Bilirubin Delta Bilirubin AST 46 H ALT Lactate Dehydrogenase Total Protein 5.2 L Total Protein (PEP) Albumin 2.5 L Albumin (PEP) Bhmfr-9-Rhvjcmqwx Beta Globulins Methylmalonic Acid RBC Folate Procalcitonin TSH Free T4 Urine Protein Urine Blood Ur Leukocyte Esterase Urine RBC Urine WBC Amorphous Sediment Urine Bacteria Hyaline Casts Urine Mucus Stool Occult Blood Free [place] LC, Quant Free Lambda LC, Quant Crossmatch 02/19/21 02/19/21 02/19/21 08:25 17:57 21:42 WBC RBC Hgb Hct MCHC RDW Plt Count Neutrophils # Lymphocytes # Retic Count PT INR APTT D-Dimer ABG pH ABG pCO2 ABG pO2 ABG HCO3 ABG Total CO2 ABG O2 Saturation Sodium Potassium Chloride Carbon Dioxide BUN Creatinine Glucose POC Glucose (mg/dL) 129 H 168 H 172 H Plasma Lactic Acid Onofre Calcium Magnesium Iron % Saturation Total Bilirubin Conjugated Bilirubin Delta Bilirubin AST ALT Lactate Dehydrogenase Total Protein Total Protein (PEP) Albumin Albumin (PEP) Bnxcg-8-Cgcvxihtt Beta Globulins Methylmalonic Acid RBC Folate Procalcitonin TSH Free T4 Urine Protein Urine Blood Ur Leukocyte Esterase Urine RBC Urine WBC Amorphous Sediment Urine Bacteria Hyaline Casts Urine Mucus Stool Occult Blood Free [place] LC, Quant Free Lambda LC, Quant Crossmatch 02/20/21 02/20/21 02/20/21 03:51 03:51 03:51 WBC RBC 2.40 L Hgb 6.7 L* Hct 22.6 L MCHC 29.4 L RDW 15.9 H Plt Count 85 L Neutrophils # Lymphocytes # 0.5 L Retic Count PT INR APTT D-Dimer ABG pH ABG pCO2 ABG pO2 ABG HCO3 ABG Total CO2 ABG O2 Saturation Sodium Potassium Chloride 111 H Carbon Dioxide 21 L BUN Creatinine Glucose 164 H POC Glucose (mg/dL) Plasma Lactic Acid Onofre Calcium 7.7 L Magnesium Iron % Saturation Total Bilirubin Conjugated Bilirubin Delta Bilirubin AST ALT Lactate Dehydrogenase Total Protein 4.8 L Total Protein (PEP) Albumin 2.4 L Albumin (PEP) Hxlnr-5-Fwngkifny Beta Globulins Methylmalonic Acid RBC Folate Procalcitonin 0.55 H TSH Free T4 Urine Protein Urine Blood Ur Leukocyte Esterase Urine RBC Urine WBC Amorphous Sediment Urine Bacteria Hyaline Casts Urine Mucus Stool Occult Blood Free [place] LC, Quant Free Lambda LC, Quant Crossmatch 02/20/21 02/20/21 02/20/21 07:36 08:48 13:19 WBC RBC Hgb Hct MCHC RDW Plt Count Neutrophils # Lymphocytes # Retic Count PT INR APTT D-Dimer ABG pH 7.49 H ABG pCO2 32 L ABG pO2 ABG HCO3 ABG Total CO2 26 H ABG O2 Saturation 99.2 H Sodium Potassium Chloride Carbon Dioxide BUN Creatinine Glucose POC Glucose (mg/dL) 174 H 149 H Plasma Lactic Acid Onofre Calcium Magnesium Iron % Saturation Total Bilirubin Conjugated Bilirubin Delta Bilirubin AST ALT Lactate Dehydrogenase Total Protein Total Protein (PEP) Albumin Albumin (PEP) Lftih-5-Kopifcdcy Beta Globulins Methylmalonic Acid RBC Folate Procalcitonin TSH Free T4 Urine Protein Urine Blood Ur Leukocyte Esterase Urine RBC Urine WBC Amorphous Sediment Urine Bacteria Hyaline Casts Urine Mucus Stool Occult Blood Free [place] LC, Quant Free Lambda LC, Quant Crossmatch 02/20/21 02/20/21 02/20/21 14:45 16:02 17:44 WBC RBC Hgb Hct MCHC RDW Plt Count Neutrophils # Lymphocytes # Retic Count PT INR APTT D-Dimer ABG pH ABG pCO2 ABG pO2 ABG HCO3 ABG Total CO2 ABG O2 Saturation Sodium Potassium Chloride Carbon Dioxide BUN Creatinine Glucose POC Glucose (mg/dL) 161 H 168 H 190 H Plasma Lactic Acid Onofre Calcium Magnesium Iron % Saturation Total Bilirubin Conjugated Bilirubin Delta Bilirubin AST ALT Lactate Dehydrogenase Total Protein Total Protein (PEP) Albumin Albumin (PEP) Egvyh-9-Rvpqvdggw Beta Globulins Methylmalonic Acid RBC Folate Procalcitonin TSH Free T4 Urine Protein Urine Blood Ur Leukocyte Esterase Urine RBC Urine WBC Amorphous Sediment Urine Bacteria Hyaline Casts Urine Mucus Stool Occult Blood Free [place] LC, Quant Free Lambda LC, Quant Crossmatch 02/20/21 02/20/21 02/20/21 18:58 22:55 23:34 WBC RBC 2.95 L Hgb 8.5 L D Hct 27.0 L MCHC RDW 15.9 H Plt Count 74 L Neutrophils # Lymphocytes # Retic Count PT INR APTT D-Dimer ABG pH ABG pCO2 ABG pO2 ABG HCO3 ABG Total CO2 ABG O2 Saturation Sodium Potassium Chloride Carbon Dioxide BUN Creatinine Glucose POC Glucose (mg/dL) 129 H 131 H Plasma Lactic Acid Onofre Calcium Magnesium Iron % Saturation Total Bilirubin Conjugated Bilirubin Delta Bilirubin AST ALT Lactate Dehydrogenase Total Protein Total Protein (PEP) Albumin Albumin (PEP) Boctz-3-Akrkuxdcw Beta Globulins Methylmalonic Acid RBC Folate Procalcitonin TSH Free T4 Urine Protein Urine Blood Ur Leukocyte Esterase Urine RBC Urine WBC Amorphous Sediment Urine Bacteria Hyaline Casts Urine Mucus Stool Occult Blood Free [place] LC, Quant Free Lambda LC, Quant Crossmatch 02/21/21 02/21/21 02/21/21 03:10 03:10 03:10 WBC RBC 2.88 L Hgb 8.4 L Hct 25.9 L MCHC RDW 16.2 H Plt Count 88 L Neutrophils # 8.2 H Lymphocytes # 0.8 L Retic Count PT INR APTT D-Dimer ABG pH ABG pCO2 ABG pO2 ABG HCO3 ABG Total CO2 ABG O2 Saturation Sodium Potassium Chloride 108 H Carbon Dioxide BUN 22 H Creatinine Glucose 138 H POC Glucose (mg/dL) Plasma Lactic Acid Onofre Calcium 8.0 L Magnesium Iron % Saturation Total Bilirubin Conjugated Bilirubin Delta Bilirubin AST ALT Lactate Dehydrogenase Total Protein Total Protein (PEP) Albumin Albumin (PEP) Jsxfj-7-Sgtpibsoi Beta Globulins Methylmalonic Acid RBC Folate Procalcitonin TSH 0.147 L Free T4 3.61 H Urine Protein Urine Blood Ur Leukocyte Esterase Urine RBC Urine WBC Amorphous Sediment Urine Bacteria Hyaline Casts Urine Mucus Stool Occult Blood Free [place] LC, Quant Free Lambda LC, Quant Crossmatch 02/21/21 02/21/21 02/21/21 05:19 05:26 11:38 WBC RBC Hgb Hct MCHC RDW Plt Count Neutrophils # Lymphocytes # Retic Count PT INR APTT D-Dimer ABG pH 7.54 H ABG pCO2 30 L ABG pO2 ABG HCO3 26 H ABG Total CO2 27 H ABG O2 Saturation 98.1 H Sodium Potassium Chloride Carbon Dioxide BUN Creatinine Glucose POC Glucose (mg/dL) 149 H Plasma Lactic Acid Onofre Calcium Magnesium Iron 23 L % Saturation 9.79 L Total Bilirubin Conjugated Bilirubin Delta Bilirubin AST ALT Lactate Dehydrogenase Total Protein Total Protein (PEP) Albumin Albumin (PEP) Uuxmw-0-Kfzeiayja Beta Globulins Methylmalonic Acid RBC Folate Procalcitonin TSH Free T4 Urine Protein Urine Blood Ur Leukocyte Esterase Urine RBC Urine WBC Amorphous Sediment Urine Bacteria Hyaline Casts Urine Mucus Stool Occult Blood Free [place] LC, Quant Free Lambda LC, Quant Crossmatch 02/21/21 02/21/21 02/21/21 11:38 11:38 11:43 WBC RBC Hgb Hct MCHC RDW Plt Count Neutrophils # Lymphocytes # Retic Count PT INR APTT D-Dimer ABG pH ABG pCO2 ABG pO2 ABG HCO3 ABG Total CO2 ABG O2 Saturation Sodium Potassium Chloride Carbon Dioxide BUN Creatinine Glucose POC Glucose (mg/dL) 123 H Plasma Lactic Acid Onofre Calcium Magnesium Iron % Saturation Total Bilirubin Conjugated Bilirubin Delta Bilirubin AST ALT Lactate Dehydrogenase Total Protein Total Protein (PEP) 5.2 L Albumin Albumin (PEP) 2.45 L Fklzt-7-Zzncizqzb 0.66 H Beta Globulins 0.50 L Methylmalonic Acid 0.48 H RBC Folate 1,193 H Procalcitonin TSH Free T4 Urine Protein Urine Blood Ur Leukocyte Esterase Urine RBC Urine WBC Amorphous Sediment Urine Bacteria Hyaline Casts Urine Mucus Stool Occult Blood Free [place] LC, Quant 2.16 H Free Lambda LC, Quant 3.34 H Crossmatch 02/21/21 02/21/21 02/22/21 17:37 23:35 03:15 WBC RBC Hgb Hct MCHC RDW Plt Count Neutrophils # Lymphocytes # Retic Count PT INR APTT D-Dimer ABG pH ABG pCO2 ABG pO2 ABG HCO3 ABG Total CO2 ABG O2 Saturation Sodium Potassium Chloride 108 H Carbon Dioxide BUN 30 H Creatinine 1.14 H Glucose 131 H POC Glucose (mg/dL) 161 H 147 H Plasma Lactic Acid Onofre Calcium 8.0 L Magnesium Iron % Saturation Total Bilirubin Conjugated Bilirubin Delta Bilirubin AST ALT Lactate Dehydrogenase Total Protein Total Protein (PEP) Albumin Albumin (PEP) Shovd-9-Pctulzaku Beta Globulins Methylmalonic Acid RBC Folate Procalcitonin TSH Free T4 Urine Protein Urine Blood Ur Leukocyte Esterase Urine RBC Urine WBC Amorphous Sediment Urine Bacteria Hyaline Casts Urine Mucus Stool Occult Blood Free [place] LC, Quant Free Lambda LC, Quant Crossmatch 02/22/21 02/22/21 02/22/21 03:15 05:34 12:08 WBC RBC 2.77 L Hgb 7.8 L Hct 25.7 L MCHC 30.5 L RDW 16.1 H Plt Count 85 L Neutrophils # Lymphocytes # Retic Count PT INR APTT D-Dimer ABG pH 7.55 H ABG pCO2 29 L ABG pO2 ABG HCO3 26 H ABG Total CO2 26 H ABG O2 Saturation 99.0 H Sodium Potassium Chloride Carbon Dioxide BUN Creatinine Glucose POC Glucose (mg/dL) 130 H Plasma Lactic Acid Onofre Calcium Magnesium Iron % Saturation Total Bilirubin Conjugated Bilirubin Delta Bilirubin AST ALT Lactate Dehydrogenase Total Protein Total Protein (PEP) Albumin Albumin (PEP) Bjved-8-Csapeqsug Beta Globulins Methylmalonic Acid RBC Folate Procalcitonin TSH Free T4 Urine Protein Urine Blood Ur Leukocyte Esterase Urine RBC Urine WBC Amorphous Sediment Urine Bacteria Hyaline Casts Urine Mucus Stool Occult Blood Free [place] LC, Quant Free Lambda LC, Quant Crossmatch 02/22/21 02/22/21 02/23/21 12:18 18:10 00:56 WBC RBC Hgb Hct MCHC RDW Plt Count Neutrophils # Lymphocytes # Retic Count PT INR APTT D-Dimer ABG pH 7.47 H ABG pCO2 ABG pO2 114 H ABG HCO3 26 H ABG Total CO2 28 H ABG O2 Saturation 98.7 H Sodium Potassium Chloride Carbon Dioxide BUN Creatinine Glucose POC Glucose (mg/dL) 190 H 182 H Plasma Lactic Acid Onofre Calcium Magnesium Iron % Saturation Total Bilirubin Conjugated Bilirubin Delta Bilirubin AST ALT Lactate Dehydrogenase Total Protein Total Protein (PEP) Albumin Albumin (PEP) Jdifd-7-Yjqvqqbsf Beta Globulins Methylmalonic Acid RBC Folate Procalcitonin TSH Free T4 Urine Protein Urine Blood Ur Leukocyte Esterase Urine RBC Urine WBC Amorphous Sediment Urine Bacteria Hyaline Casts Urine Mucus Stool Occult Blood Free [place] LC, Quant Free Lambda LC, Quant Crossmatch 02/23/21 02/23/21 02/23/21 04:56 04:56 05:20 WBC RBC 3.12 L Hgb 8.9 L Hct 29.4 L MCHC 30.2 L RDW Plt Count 71 L Neutrophils # Lymphocytes # 0.5 L Retic Count PT INR APTT D-Dimer ABG pH ABG pCO2 ABG pO2 130 H ABG HCO3 ABG Total CO2 25 H ABG O2 Saturation 99.7 H Sodium Potassium 3.3 L Chloride 109 H Carbon Dioxide 21 L BUN 31 H Creatinine 1.24 H Glucose 149 H POC Glucose (mg/dL) Plasma Lactic Acid Onofre Calcium 8.3 L Magnesium Iron % Saturation Total Bilirubin Conjugated Bilirubin Delta Bilirubin AST ALT Lactate Dehydrogenase Total Protein 5.8 L Total Protein (PEP) Albumin 3.0 L Albumin (PEP) Wnuwr-6-Fnzrfbumo Beta Globulins Methylmalonic Acid RBC Folate Procalcitonin TSH Free T4 Urine Protein Urine Blood Ur Leukocyte Esterase Urine RBC Urine WBC Amorphous Sediment Urine Bacteria Hyaline Casts Urine Mucus Stool Occult Blood Free [place] LC, Quant Free Lambda LC, Quant Crossmatch 02/23/21 02/23/21 02/23/21 11:17 17:30 23:51 WBC RBC Hgb Hct MCHC RDW Plt Count Neutrophils # Lymphocytes # Retic Count PT INR APTT D-Dimer ABG pH ABG pCO2 ABG pO2 ABG HCO3 ABG Total CO2 ABG O2 Saturation Sodium Potassium Chloride Carbon Dioxide BUN Creatinine Glucose POC Glucose (mg/dL) 181 H 149 H 168 H Plasma Lactic Acid Onofre Calcium Magnesium Iron % Saturation Total Bilirubin Conjugated Bilirubin Delta Bilirubin AST ALT Lactate Dehydrogenase Total Protein Total Protein (PEP) Albumin Albumin (PEP) Duqjx-3-Eawiyvskk Beta Globulins Methylmalonic Acid RBC Folate Procalcitonin TSH Free T4 Urine Protein Urine Blood Ur Leukocyte Esterase Urine RBC Urine WBC Amorphous Sediment Urine Bacteria Hyaline Casts Urine Mucus Stool Occult Blood Free [place] LC, Quant Free Lambda LC, Quant Crossmatch 02/24/21 02/24/21 02/24/21 04:48 04:48 04:48 WBC RBC 2.68 L Hgb 8.0 L Hct 25.0 L MCHC RDW Plt Count 67 L Neutrophils # Lymphocytes # Retic Count PT INR APTT D-Dimer ABG pH ABG pCO2 ABG pO2 ABG HCO3 ABG Total CO2 ABG O2 Saturation Sodium Potassium Chloride 110 H Carbon Dioxide 21 L BUN 28 H Creatinine 1.17 H Glucose 147 H POC Glucose (mg/dL) Plasma Lactic Acid Onofre Calcium Magnesium Iron % Saturation Total Bilirubin Conjugated Bilirubin Delta Bilirubin AST ALT Lactate Dehydrogenase Total Protein Total Protein (PEP) Albumin Albumin (PEP) Lfxng-6-Ogpenyfqz Beta Globulins Methylmalonic Acid RBC Folate Procalcitonin 0.12 H TSH Free T4 Urine Protein Urine Blood Ur Leukocyte Esterase Urine RBC Urine WBC Amorphous Sediment Urine Bacteria Hyaline Casts Urine Mucus Stool Occult Blood Free [place] LC, Quant Free Lambda LC, Quant Crossmatch 02/24/21 02/24/21 02/24/21 05:29 05:43 08:04 WBC RBC Hgb Hct MCHC RDW Plt Count Neutrophils # Lymphocytes # Retic Count PT INR APTT D-Dimer ABG pH ABG pCO2 ABG pO2 118 H ABG HCO3 ABG Total CO2 ABG O2 Saturation 99.4 H Sodium Potassium Chloride Carbon Dioxide BUN Creatinine Glucose POC Glucose (mg/dL) 166 H 147 H Plasma Lactic Acid Onofre Calcium Magnesium Iron % Saturation Total Bilirubin Conjugated Bilirubin Delta Bilirubin AST ALT Lactate Dehydrogenase Total Protein Total Protein (PEP) Albumin Albumin (PEP) Sdgrq-1-Mmmeahdfq Beta Globulins Methylmalonic Acid RBC Folate Procalcitonin TSH Free T4 Urine Protein Urine Blood Ur Leukocyte Esterase Urine RBC Urine WBC Amorphous Sediment Urine Bacteria Hyaline Casts Urine Mucus Stool Occult Blood Free [place] LC, Quant Free Lambda LC, Quant Crossmatch 02/24/21 02/24/21 02/24/21 09:49 10:53 10:53 WBC RBC Hgb Hct MCHC RDW Plt Count Neutrophils # Lymphocytes # Retic Count PT INR APTT 19.7 L D-Dimer ABG pH ABG pCO2 ABG pO2 111 H ABG HCO3 ABG Total CO2 25 H ABG O2 Saturation 99.0 H Sodium Potassium Chloride 112 H Carbon Dioxide 20 L BUN 30 H Creatinine 1.17 H Glucose 122 H POC Glucose (mg/dL) Plasma Lactic Acid Onofre Calcium Magnesium Iron % Saturation Total Bilirubin Conjugated Bilirubin Delta Bilirubin AST 37 H ALT Lactate Dehydrogenase Total Protein 6.0 L Total Protein (PEP) Albumin 3.1 L Albumin (PEP) Sxtmp-2-Lculipqqa Beta Globulins Methylmalonic Acid RBC Folate Procalcitonin TSH Free T4 Urine Protein Urine Blood Ur Leukocyte Esterase Urine RBC Urine WBC Amorphous Sediment Urine Bacteria Hyaline Casts Urine Mucus Stool Occult Blood Free [place] LC, Quant Free Lambda LC, Quant Crossmatch 02/24/21 02/24/21 02/24/21 11:33 17:49 23:37 WBC RBC Hgb Hct MCHC RDW Plt Count Neutrophils # Lymphocytes # Retic Count PT INR APTT D-Dimer ABG pH ABG pCO2 ABG pO2 ABG HCO3 ABG Total CO2 ABG O2 Saturation Sodium Potassium Chloride Carbon Dioxide BUN Creatinine Glucose POC Glucose (mg/dL) 129 H 141 H 152 H Plasma Lactic Acid Onofre Calcium Magnesium Iron % Saturation Total Bilirubin Conjugated Bilirubin Delta Bilirubin AST ALT Lactate Dehydrogenase Total Protein Total Protein (PEP) Albumin Albumin (PEP) Jcatd-3-Qknaatoyq Beta Globulins Methylmalonic Acid RBC Folate Procalcitonin TSH Free T4 Urine Protein Urine Blood Ur Leukocyte Esterase Urine RBC Urine WBC Amorphous Sediment Urine Bacteria Hyaline Casts Urine Mucus Stool Occult Blood Free [place] LC, Quant Free Lambda LC, Quant Crossmatch 02/25/21 02/25/21 02/25/21 02:03 03:50 03:50 WBC 11.9 H RBC 3.18 L Hgb 9.0 L Hct 30.0 L MCHC 30.0 L RDW Plt Count 86 L Neutrophils # Lymphocytes # Retic Count PT INR APTT D-Dimer ABG pH ABG pCO2 ABG pO2 ABG HCO3 ABG Total CO2 ABG O2 Saturation Sodium Potassium Chloride 112 H Carbon Dioxide 21 L BUN 28 H Creatinine 1.26 H Glucose 113 H POC Glucose (mg/dL) 135 H Plasma Lactic Acid Onofre Calcium Magnesium Iron % Saturation Total Bilirubin Conjugated Bilirubin Delta Bilirubin AST ALT Lactate Dehydrogenase Total Protein Total Protein (PEP) Albumin Albumin (PEP) Kjzdk-8-Ugsmbqazl Beta Globulins Methylmalonic Acid RBC Folate Procalcitonin TSH Free T4 Urine Protein Urine Blood Ur Leukocyte Esterase Urine RBC Urine WBC Amorphous Sediment Urine Bacteria Hyaline Casts Urine Mucus Stool Occult Blood Free [place] LC, Quant Free Lambda LC, Quant Crossmatch 02/25/21 02/25/21 02/25/21 05:48 07:20 11:53 WBC RBC Hgb Hct MCHC RDW Plt Count Neutrophils # Lymphocytes # Retic Count PT INR APTT D-Dimer ABG pH ABG pCO2 ABG pO2 ABG HCO3 ABG Total CO2 ABG O2 Saturation Sodium Potassium Chloride Carbon Dioxide BUN Creatinine Glucose POC Glucose (mg/dL) 132 H 160 H 187 H Plasma Lactic Acid Onofre Calcium Magnesium Iron % Saturation Total Bilirubin Conjugated Bilirubin Delta Bilirubin AST ALT Lactate Dehydrogenase Total Protein Total Protein (PEP) Albumin Albumin (PEP) Rpili-9-Uyiqndlyu Beta Globulins Methylmalonic Acid RBC Folate Procalcitonin TSH Free T4 Urine Protein Urine Blood Ur Leukocyte Esterase Urine RBC Urine WBC Amorphous Sediment Urine Bacteria Hyaline Casts Urine Mucus Stool Occult Blood Free [place] LC, Quant Free Lambda LC, Quant Crossmatch 02/25/21 02/25/21 02/26/21 17:35 23:56 03:15 WBC RBC Hgb Hct MCHC RDW Plt Count Neutrophils # Lymphocytes # Retic Count PT INR APTT D-Dimer ABG pH ABG pCO2 ABG pO2 ABG HCO3 ABG Total CO2 ABG O2 Saturation Sodium Potassium Chloride 113 H Carbon Dioxide 19 L BUN 26 H Creatinine 1.08 H Glucose 108 H POC Glucose (mg/dL) 118 H 163 H Plasma Lactic Acid Onofre Calcium Magnesium Iron % Saturation Total Bilirubin Conjugated Bilirubin Delta Bilirubin AST ALT Lactate Dehydrogenase Total Protein Total Protein (PEP) Albumin Albumin (PEP) Cyopf-0-Hsvwngnad Beta Globulins Methylmalonic Acid RBC Folate Procalcitonin TSH Free T4 Urine Protein Urine Blood Ur Leukocyte Esterase Urine RBC Urine WBC Amorphous Sediment Urine Bacteria Hyaline Casts Urine Mucus Stool Occult Blood Free [place] LC, Quant Free Lambda LC, Quant Crossmatch 02/26/21 02/26/21 02/26/21 03:15 06:33 09:30 WBC 11.6 H 12.8 H RBC 2.96 L 3.03 L Hgb 8.4 L 8.4 L Hct 28.2 L 28.6 L MCHC 29.8 L 29.3 L RDW Plt Count 78 L 78 L Neutrophils # 10.8 H Lymphocytes # Retic Count PT INR APTT D-Dimer ABG pH ABG pCO2 ABG pO2 ABG HCO3 ABG Total CO2 ABG O2 Saturation Sodium Potassium Chloride Carbon Dioxide BUN Creatinine Glucose POC Glucose (mg/dL) 106 H Plasma Lactic Acid Onofre Calcium Magnesium Iron % Saturation Total Bilirubin Conjugated Bilirubin Delta Bilirubin AST ALT Lactate Dehydrogenase Total Protein Total Protein (PEP) Albumin Albumin (PEP) Mstyz-8-Fpiqsinsi Beta Globulins Methylmalonic Acid RBC Folate Procalcitonin TSH Free T4 Urine Protein Urine Blood Ur Leukocyte Esterase Urine RBC Urine WBC Amorphous Sediment Urine Bacteria Hyaline Casts Urine Mucus Stool Occult Blood Free [place] LC, Quant Free Lambda LC, Quant Crossmatch 02/26/21 02/26/21 02/27/21 09:30 18:00 00:03 WBC RBC Hgb Hct MCHC RDW Plt Count Neutrophils # Lymphocytes # Retic Count PT INR 1.2 H APTT 19.4 L D-Dimer ABG pH ABG pCO2 ABG pO2 ABG HCO3 ABG Total CO2 ABG O2 Saturation Sodium Potassium Chloride Carbon Dioxide BUN Creatinine Glucose POC Glucose (mg/dL) 100 H 198 H Plasma Lactic Acid Onofre Calcium Magnesium Iron % Saturation Total Bilirubin Conjugated Bilirubin Delta Bilirubin AST ALT Lactate Dehydrogenase Total Protein Total Protein (PEP) Albumin Albumin (PEP) Lnjzv-9-Zzddabpru Beta Globulins Methylmalonic Acid RBC Folate Procalcitonin TSH Free T4 Urine Protein Urine Blood Ur Leukocyte Esterase Urine RBC Urine WBC Amorphous Sediment Urine Bacteria Hyaline Casts Urine Mucus Stool Occult Blood Free [place] LC, Quant Free Lambda LC, Quant Crossmatch 02/27/21 02/27/21 02/27/21 00:27 05:30 05:57 WBC RBC Hgb Hct MCHC RDW Plt Count Neutrophils # Lymphocytes # Retic Count PT INR APTT 42.3 H D-Dimer ABG pH ABG pCO2 ABG pO2 ABG HCO3 ABG Total CO2 ABG O2 Saturation Sodium Potassium Chloride Carbon Dioxide BUN Creatinine Glucose POC Glucose (mg/dL) 174 H Plasma Lactic Acid Onofre Calcium Magnesium Iron % Saturation Total Bilirubin Conjugated Bilirubin Delta Bilirubin AST ALT Lactate Dehydrogenase Total Protein Total Protein (PEP) Albumin Albumin (PEP) Aiyzu-9-Cvvvivlfr Beta Globulins Methylmalonic Acid RBC Folate Procalcitonin TSH Free T4 Urine Protein Urine Blood Ur Leukocyte Esterase Urine RBC Urine WBC Amorphous Sediment Urine Bacteria Hyaline Casts Urine Mucus Stool Occult Blood Positive H Free [place] LC, Quant Free Lambda LC, Quant Crossmatch 02/27/21 02/27/21 02/27/21 07:56 07:56 08:06 WBC RBC 2.96 L Hgb 8.1 L Hct 27.5 L MCHC 29.5 L RDW Plt Count 69 L Neutrophils # Lymphocytes # 0.6 L Retic Count PT 12.1 H INR 1.2 H APTT 50.7 H D-Dimer ABG pH ABG pCO2 ABG pO2 ABG HCO3 ABG Total CO2 ABG O2 Saturation Sodium Potassium Chloride 115 H Carbon Dioxide BUN 24 H Creatinine Glucose 120 H POC Glucose (mg/dL) Plasma Lactic Acid Onofre Calcium Magnesium Iron % Saturation Total Bilirubin Conjugated Bilirubin Delta Bilirubin AST 37 H ALT 46 H Lactate Dehydrogenase Total Protein 5.7 L Total Protein (PEP) Albumin 3.1 L Albumin (PEP) Xuirj-4-Oazkoltst Beta Globulins Methylmalonic Acid RBC Folate Procalcitonin TSH Free T4 Urine Protein Urine Blood Ur Leukocyte Esterase Urine RBC Urine WBC Amorphous Sediment Urine Bacteria Hyaline Casts Urine Mucus Stool Occult Blood Free [place] LC, Quant Free Lambda LC, Quant Crossmatch 02/27/21 02/27/21 02/27/21 11:40 13:00 17:58 WBC RBC Hgb Hct MCHC RDW Plt Count Neutrophils # Lymphocytes # Retic Count PT INR APTT D-Dimer 1.60 H ABG pH ABG pCO2 ABG pO2 ABG HCO3 ABG Total CO2 ABG O2 Saturation Sodium Potassium Chloride Carbon Dioxide BUN Creatinine Glucose POC Glucose (mg/dL) 123 H 177 H Plasma Lactic Acid Onofre Calcium Magnesium Iron % Saturation Total Bilirubin Conjugated Bilirubin Delta Bilirubin AST ALT Lactate Dehydrogenase Total Protein Total Protein (PEP) Albumin Albumin (PEP) Nafza-9-Rqgrshpfy Beta Globulins Methylmalonic Acid RBC Folate Procalcitonin TSH Free T4 Urine Protein Urine Blood Ur Leukocyte Esterase Urine RBC Urine WBC Amorphous Sediment Urine Bacteria Hyaline Casts Urine Mucus Stool Occult Blood Free [place] LC, Quant Free Lambda LC, Quant Crossmatch 02/27/21 02/28/21 02/28/21 23:59 05:50 08:30 WBC 17.8 H RBC 2.60 L Hgb 7.4 L Hct 24.3 L MCHC 30.3 L RDW 16.2 H Plt Count 100 L Neutrophils # 15.5 H Lymphocytes # Retic Count PT INR APTT D-Dimer ABG pH ABG pCO2 ABG pO2 ABG HCO3 ABG Total CO2 ABG O2 Saturation Sodium Potassium Chloride Carbon Dioxide BUN Creatinine Glucose POC Glucose (mg/dL) 160 H 131 H Plasma Lactic Acid Onofre Calcium Magnesium Iron % Saturation Total Bilirubin Conjugated Bilirubin Delta Bilirubin AST ALT Lactate Dehydrogenase Total Protein Total Protein (PEP) Albumin Albumin (PEP) Ppmay-4-Ohduzvrjs Beta Globulins Methylmalonic Acid RBC Folate Procalcitonin TSH Free T4 Urine Protein Urine Blood Ur Leukocyte Esterase Urine RBC Urine WBC Amorphous Sediment Urine Bacteria Hyaline Casts Urine Mucus Stool Occult Blood Free [place] LC, Quant Free Lambda LC, Quant Crossmatch 02/28/21 02/28/21 02/28/21 08:30 08:30 12:00 WBC RBC Hgb Hct MCHC RDW Plt Count Neutrophils # Lymphocytes # Retic Count PT INR APTT 74.4 H D-Dimer ABG pH ABG pCO2 ABG pO2 ABG HCO3 ABG Total CO2 ABG O2 Saturation Sodium Potassium Chloride 114 H Carbon Dioxide BUN 21 H Creatinine Glucose 125 H POC Glucose (mg/dL) 162 H Plasma Lactic Acid Onofre Calcium Magnesium Iron % Saturation Total Bilirubin Conjugated Bilirubin Delta Bilirubin AST ALT Lactate Dehydrogenase Total Protein 5.6 L Total Protein (PEP) Albumin 3.0 L Albumin (PEP) Ltsws-7-Flpglgvff Beta Globulins Methylmalonic Acid RBC Folate Procalcitonin TSH Free T4 Urine Protein Urine Blood Ur Leukocyte Esterase Urine RBC Urine WBC Amorphous Sediment Urine Bacteria Hyaline Casts Urine Mucus Stool Occult Blood Free [place] LC, Quant Free Lambda LC, Quant Crossmatch 02/28/21 02/28/21 03/01/21 18:33 20:21 06:19 WBC RBC Hgb Hct MCHC RDW Plt Count Neutrophils # Lymphocytes # Retic Count PT INR APTT D-Dimer ABG pH ABG pCO2 ABG pO2 ABG HCO3 ABG Total CO2 ABG O2 Saturation Sodium Potassium Chloride Carbon Dioxide BUN Creatinine Glucose POC Glucose (mg/dL) 172 H 204 H 189 H Plasma Lactic Acid Onofre Calcium Magnesium Iron % Saturation Total Bilirubin Conjugated Bilirubin Delta Bilirubin AST ALT Lactate Dehydrogenase Total Protein Total Protein (PEP) Albumin Albumin (PEP) Prvbe-2-Fxtrvrlwp Beta Globulins Methylmalonic Acid RBC Folate Procalcitonin TSH Free T4 Urine Protein Urine Blood Ur Leukocyte Esterase Urine RBC Urine WBC Amorphous Sediment Urine Bacteria Hyaline Casts Urine Mucus Stool Occult Blood Free [place] LC, Quant Free Lambda LC, Quant Crossmatch 03/01/21 03/01/21 03/01/21 12:05 12:18 12:18 WBC 18.8 H RBC 2.41 L Hgb 7.3 L Hct 23.5 L MCHC 30.9 L RDW 16.8 H Plt Count 97 L Neutrophils # 17.5 H Lymphocytes # 0.5 L Retic Count PT INR APTT D-Dimer ABG pH ABG pCO2 ABG pO2 ABG HCO3 ABG Total CO2 ABG O2 Saturation Sodium Potassium Chloride 116 H Carbon Dioxide 20 L BUN 22 H Creatinine Glucose 142 H POC Glucose (mg/dL) 142 H Plasma Lactic Acid Onofre Calcium Magnesium 2.4 H Iron % Saturation Total Bilirubin 1.4 H Conjugated Bilirubin Delta Bilirubin AST ALT Lactate Dehydrogenase Total Protein 5.8 L Total Protein (PEP) Albumin 3.2 L Albumin (PEP) Bpbvo-5-Tyhtugbxx Beta Globulins Methylmalonic Acid RBC Folate Procalcitonin TSH Free T4 Urine Protein Urine Blood Ur Leukocyte Esterase Urine RBC Urine WBC Amorphous Sediment Urine Bacteria Hyaline Casts Urine Mucus Stool Occult Blood Free [place] LC, Quant Free Lambda LC, Quant Crossmatch 03/01/21 03/01/21 03/02/21 17:03 20:25 04:23 WBC RBC Hgb Hct MCHC RDW Plt Count Neutrophils # Lymphocytes # Retic Count PT INR APTT D-Dimer ABG pH ABG pCO2 ABG pO2 ABG HCO3 ABG Total CO2 ABG O2 Saturation Sodium Potassium Chloride Carbon Dioxide BUN Creatinine Glucose POC Glucose (mg/dL) 198 H 166 H Plasma Lactic Acid Onofre Calcium Magnesium Iron % Saturation Total Bilirubin Conjugated Bilirubin Delta Bilirubin AST ALT Lactate Dehydrogenase Total Protein Total Protein (PEP) Albumin Albumin (PEP) Mtfjd-8-Rixqozpsc Beta Globulins Methylmalonic Acid RBC Folate Procalcitonin TSH Free T4 Urine Protein Trace H Urine Blood Small H Ur Leukocyte Esterase Urine RBC 11 H Urine WBC Amorphous Sediment Urine Bacteria Hyaline Casts Urine Mucus Rare H Stool Occult Blood Free [place] LC, Quant Free Lambda LC, Quant Crossmatch 03/02/21 03/02/21 03/02/21 06:24 07:49 07:49 WBC 18.8 H RBC 2.36 L Hgb 6.7 L* Hct 23.0 L MCHC 28.9 L RDW 17.7 H Plt Count 88 L Neutrophils # 17.5 H Lymphocytes # 0.6 L Retic Count 4.2 H PT INR APTT D-Dimer ABG pH ABG pCO2 ABG pO2 ABG HCO3 ABG Total CO2 ABG O2 Saturation Sodium 146 H Potassium Chloride 118 H Carbon Dioxide 19 L BUN 22 H Creatinine 1.05 H Glucose 151 H POC Glucose (mg/dL) 185 H Plasma Lactic Acid Onofre Calcium Magnesium 2.4 H Iron % Saturation Total Bilirubin 1.5 H Conjugated Bilirubin Delta Bilirubin AST ALT Lactate Dehydrogenase 1350 H Total Protein 5.9 L Total Protein (PEP) Albumin 3.2 L Albumin (PEP) Edanw-6-Olaejsteg Beta Globulins Methylmalonic Acid RBC Folate Procalcitonin TSH Free T4 Urine Protein Urine Blood Ur Leukocyte Esterase Urine RBC Urine WBC Amorphous Sediment Urine Bacteria Hyaline Casts Urine Mucus Stool Occult Blood Free [place] LC, Quant Free Lambda LC, Quant Crossmatch 03/02/21 03/02/21 03/02/21 10:03 11:50 11:51 WBC RBC Hgb Hct MCHC RDW Plt Count Neutrophils # Lymphocytes # Retic Count PT INR APTT 18.4 L D-Dimer ABG pH ABG pCO2 ABG pO2 ABG HCO3 ABG Total CO2 ABG O2 Saturation Sodium Potassium Chloride Carbon Dioxide BUN Creatinine Glucose POC Glucose (mg/dL) 156 H Plasma Lactic Acid Onofre Calcium Magnesium Iron % Saturation Total Bilirubin Conjugated Bilirubin Delta Bilirubin AST ALT Lactate Dehydrogenase Total Protein Total Protein (PEP) Albumin Albumin (PEP) Ddwbx-6-Nugsxtiib Beta Globulins Methylmalonic Acid RBC Folate Procalcitonin TSH Free T4 Urine Protein Urine Blood Ur Leukocyte Esterase Urine RBC Urine WBC Amorphous Sediment Urine Bacteria Hyaline Casts Urine Mucus Stool Occult Blood Free [place] LC, Quant Free Lambda LC, Quant Crossmatch See Detail 03/02/21 03/02/21 03/02/21 15:24 15:36 17:02 WBC RBC Hgb Hct MCHC RDW Plt Count Neutrophils # Lymphocytes # Retic Count PT INR APTT D-Dimer ABG pH 7.21 L ABG pCO2 50 H ABG pO2 53 L* ABG HCO3 20 L ABG Total CO2 ABG O2 Saturation 81.5 L Sodium Potassium Chloride Carbon Dioxide BUN Creatinine Glucose POC Glucose (mg/dL) 184 H 185 H Plasma Lactic Acid Onofre Calcium Magnesium Iron % Saturation Total Bilirubin Conjugated Bilirubin Delta Bilirubin AST ALT Lactate Dehydrogenase Total Protein Total Protein (PEP) Albumin Albumin (PEP) Ucjfq-4-Tevdfbkaw Beta Globulins Methylmalonic Acid RBC Folate Procalcitonin TSH Free T4 Urine Protein Urine Blood Ur Leukocyte Esterase Urine RBC Urine WBC Amorphous Sediment Urine Bacteria Hyaline Casts Urine Mucus Stool Occult Blood Free [place] LC, Quant Free Lambda LC, Quant Crossmatch 03/02/21 03/02/21 03/03/21 17:23 20:40 06:00 WBC RBC Hgb Hct MCHC RDW Plt Count Neutrophils # Lymphocytes # Retic Count PT INR APTT D-Dimer ABG pH 7.19 L* ABG pCO2 52 H ABG pO2 178 H ABG HCO3 20 L ABG Total CO2 ABG O2 Saturation 99.3 H Sodium Potassium Chloride Carbon Dioxide BUN Creatinine Glucose POC Glucose (mg/dL) 178 H 203 H Plasma Lactic Acid Onofre Calcium Magnesium Iron % Saturation Total Bilirubin Conjugated Bilirubin Delta Bilirubin AST ALT Lactate Dehydrogenase Total Protein Total Protein (PEP) Albumin Albumin (PEP) Aovcj-2-Soltiivms Beta Globulins Methylmalonic Acid RBC Folate Procalcitonin TSH Free T4 Urine Protein Urine Blood Ur Leukocyte Esterase Urine RBC Urine WBC Amorphous Sediment Urine Bacteria Hyaline Casts Urine Mucus Stool Occult Blood Free [place] LC, Quant Free Lambda LC, Quant Crossmatch 03/03/21 03/03/21 03/03/21 09:25 09:25 09:25 WBC 22.5 H RBC 2.85 L Hgb 8.2 L D Hct 27.4 L MCHC 29.8 L RDW 17.7 H Plt Count 71 L Neutrophils # 21.1 H Lymphocytes # 0.6 L Retic Count PT 12.2 H INR 1.2 H APTT 18.9 L D-Dimer 1.96 H ABG pH ABG pCO2 ABG pO2 ABG HCO3 ABG Total CO2 ABG O2 Saturation Sodium 149 H Potassium 3.4 L Chloride 119 H Carbon Dioxide BUN 33 H Creatinine 1.83 H Glucose 132 H POC Glucose (mg/dL) Plasma Lactic Acid Onofre Calcium Magnesium 2.5 H Iron % Saturation Total Bilirubin 2.1 H Conjugated Bilirubin 0.8 H Delta Bilirubin 0.7 H AST 42 H ALT 44 H Lactate Dehydrogenase Total Protein 5.4 L Total Protein (PEP) Albumin 3.0 L Albumin (PEP) Bejhd-0-Nesxtdxez Beta Globulins Methylmalonic Acid RBC Folate Procalcitonin TSH Free T4 Urine Protein Urine Blood Ur Leukocyte Esterase Urine RBC Urine WBC Amorphous Sediment Urine Bacteria Hyaline Casts Urine Mucus Stool Occult Blood Free [place] LC, Quant Free Lambda LC, Quant Crossmatch Assessment and Plan Assessment: * Probable acute stroke manifesting with left arm > leg weakness. * Paroxysmal atrial fibrillation. * Recent GI bleed, with anemia requiring transfusion. * Moderate protein calorie malnutrition * Sepsis with pneumonia * Prior history of GI bleeding. * COPD. Plan: * Patient cannot be placed on antiplatelets or anticoagulants because of recent GI bleed requiring transfusion. * MRI was recommended, but after Dr. Freeman discussed with patient's family member, they declined further testing and wanted patient to be DO NOT RESUSCITATE, DO NOT INTUBATE and only comfort care. * No further neurological workup indicated based upon patient's CODE STATUS. * Neurology will sign off.
--- NOTE | 2021-03-03 22:25 | P.PN ---
Subjective Progress Note Date: 03/03/21 Principal diagnosis: Respiratory distress Patient has not improved, renal function worsening and overall prognosis poor. They have decided to discuss further with hospice care. Objective - Vital Signs Vital signs: Vital Signs Temp 98.0 F 03/03/21 16:00 Pulse 113 H 03/03/21 16:00 Resp 22 03/03/21 16:00 BP 136/84 03/03/21 16:00 Pulse Ox 99 03/03/21 16:00 Intake & Output 03/03/21 03/03/21 03/04/21 06:59 18:59 06:59 Intake Total 539.25 241.75 Output Total 1150 1100 Balance -610.75 -858.25 Weight 83 kg 83 kg Intake: Intake, IV Titration 229.25 241.75 Amount Diltiazem 125 mg In 229.25 81.75 Sodium Chloride 0.9% 100 ml @ 15 MG/HR 15 mls/hr IV .[id number] ANGELA Rx#: [id number] Lactated Ringers 1,000 ml 60 @ 20 mls/hr IV .Q24H ANGELA Rx#:[id number] Piperacillin-Tazobactam 3 100 .375 gm In Sodium Chloride 0.9% 100 ml @ 25 mls/hr IVPB Q8HR ANGELA Rx# :[id number] Blood Product 310 Rc As-1 Unit 310 [id number] Output: Urine 1150 1100 Other: Voiding Method Indwelling Catheter Indwelling Catheter - Exam - Constitutional General appearance: average body habitus, disheveled, successfully weaned and extubated - EENT Eyes: PERRLA Ears: bilateral: normal - Neck Neck: lymphadenopathy Carotids: bilateral: upstroke normal - Respiratory Respiratory: bilateral: diminished, increased respiratory distress worsening hypoxia - Cardiovascular irregular, irregular - Gastrointestinal General gastrointestinal: decreased bowel sounds, distended, soft - Neurologic open eyes follow simple commands moving all 4 extremity - Labs CBC & Chem 7: 03/03/21 09:25 03/03/21 09:25 Labs: Abnormal Lab Results - Last 24 Hours (Table) 03/02/21 03/02/21 03/03/21 Range/Units 07:49 07:49 06:00 WBC (3.8-10.6) k/uL RBC (3.80-5.40) m/uL Hgb (11.4-16.0) gm/dL Hct (34.0-46.0) % MCHC (31.0-37.0) g/dL RDW (11.5-15.5) % Plt Count (150-450) k/uL Neutrophils # (1.3-7.7) k/uL Lymphocytes # (1.0-4.8) k/uL Haptoglobin 202.0 H (31.2-198.0) mg/dL PT (9.0-12.0) sec INR (<1.2) APTT (22.0-30.0) sec D-Dimer (<0.60) mg/L FEU Sodium (137-145) mmol/L Potassium (3.5-5.1) mmol/L Chloride (98-107) mmol/L BUN (7-17) mg/dL Creatinine (0.52-1.04) mg/dL Glucose (74-99) mg/dL POC Glucose (mg/dL) 203 H (75-99) mg/dL Magnesium (1.6-2.3) mg/dL Ferritin 312.4 H (10.0-291.0) ng/mL Total Bilirubin (0.2-1.3) mg/dL Conjugated Bilirubin (0.0-0.3) mg/dL Delta Bilirubin (0.0-0.2) mg/dL AST (14-36) U/L ALT (4-34) U/L Total Protein (6.3-8.2) g/dL Albumin (3.5-5.0) g/dL Procalcitonin (0.02-0.09) ng/mL 03/03/21 03/03/21 03/03/21 Range/Units 09:25 09:25 09:25 WBC 22.5 H (3.8-10.6) k/uL RBC 2.85 L (3.80-5.40) m/uL Hgb 8.2 L D (11.4-16.0) gm/dL Hct 27.4 L (34.0-46.0) % MCHC 29.8 L (31.0-37.0) g/dL RDW 17.7 H (11.5-15.5) % Plt Count 71 L (150-450) k/uL Neutrophils # 21.1 H (1.3-7.7) k/uL Lymphocytes # 0.6 L (1.0-4.8) k/uL Haptoglobin (31.2-198.0) mg/dL PT (9.0-12.0) sec INR (<1.2) APTT (22.0-30.0) sec D-Dimer (<0.60) mg/L FEU Sodium 149 H (137-145) mmol/L Potassium 3.4 L (3.5-5.1) mmol/L Chloride 119 H (98-107) mmol/L BUN 33 H (7-17) mg/dL Creatinine 1.83 H (0.52-1.04) mg/dL Glucose 132 H (74-99) mg/dL POC Glucose (mg/dL) (75-99) mg/dL Magnesium 2.5 H (1.6-2.3) mg/dL Ferritin (10.0-291.0) ng/mL Total Bilirubin 2.1 H (0.2-1.3) mg/dL Conjugated Bilirubin 0.8 H (0.0-0.3) mg/dL Delta Bilirubin 0.7 H (0.0-0.2) mg/dL AST 42 H (14-36) U/L ALT 44 H (4-34) U/L Total Protein 5.4 L (6.3-8.2) g/dL Albumin 3.0 L (3.5-5.0) g/dL Procalcitonin 0.38 H (0.02-0.09) ng/mL 03/03/21 03/03/21 03/03/21 Range/Units 09:25 11:59 17:02 WBC (3.8-10.6) k/uL RBC (3.80-5.40) m/uL Hgb (11.4-16.0) gm/dL Hct (34.0-46.0) % MCHC (31.0-37.0) g/dL RDW (11.5-15.5) % Plt Count (150-450) k/uL Neutrophils # (1.3-7.7) k/uL Lymphocytes # (1.0-4.8) k/uL Haptoglobin (31.2-198.0) mg/dL PT 12.2 H (9.0-12.0) sec INR 1.2 H (<1.2) APTT 18.9 L (22.0-30.0) sec D-Dimer 1.96 H (<0.60) mg/L FEU Sodium (137-145) mmol/L Potassium (3.5-5.1) mmol/L Chloride (98-107) mmol/L BUN (7-17) mg/dL Creatinine (0.52-1.04) mg/dL Glucose (74-99) mg/dL POC Glucose (mg/dL) 150 H 221 H (75-99) mg/dL Magnesium (1.6-2.3) mg/dL Ferritin (10.0-291.0) ng/mL Total Bilirubin (0.2-1.3) mg/dL Conjugated Bilirubin (0.0-0.3) mg/dL Delta Bilirubin (0.0-0.2) mg/dL AST (14-36) U/L ALT (4-34) U/L Total Protein (6.3-8.2) g/dL Albumin (3.5-5.0) g/dL Procalcitonin (0.02-0.09) ng/mL Microbiology - Last 24 Hours (Table) 03/02/21 07:49 Blood Culture - Preliminary Blood No Growth after 24 hours 03/02/21 07:49 Blood Culture - Preliminary Blood No Growth after 24 hours Assessment and Plan Plan: Assessment and Plan Bicytopenia: Normocytic Anemia: 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 You can see where patient's counts have decreased during episodes of illness/admissions. Cytopenia workup has been ordered as no history of hematological work up in this medical record. HIT antibody - negative Transfuse to keep hemoglobin 7 or higher unless symptomatic. Hgb 7.3 Transfuse to keep platelets greater than 10,000 unless bleeding, platelets hve increased to 100K today, anticoagulant held per cardiology for bleeding Monitor for DIC Leukocytosis: - Increased WBC today, likely reactive -Steroids - Rodriguez cultures with worsening clinical picture Acute Hypoxic Respiratory: WOrsening today - Bilateral pneumonia - Increased Oxygenation need today, Pulmonary following. Repeat imaging. Chronic atrial fibrillation heart failure - Cardiology Following - AC therapy held due to dark stool concern for GI bleeding PLan: - Goals of care changed to quality of life and hospice was consulted, agree with plan
== END 2021-03-03 17:05 | disposition hospice, inpatient (51) | DRG 207 ==
LOC: EC 03:25 → 2SICU 06:10 → 3SCARD 02-26 17:05
PROVIDERS: ADMIT Hospitalist; ATTEND Hospitalist
PROC: 0D9670Z Drainage of Stomach with Drainage Device, Via Natural or Artificial Opening (ICD-10-PCS; principal; 2021-02-18)
PROC: 3E033XZ Introduction of Vasopressor into Peripheral Vein, Percutaneous Approach (ICD-10-PCS; principal; 2021-02-18)
PROC: 5A1955Z Respiratory Ventilation, Greater than 96 Consecutive Hours (ICD-10-PCS; principal; 2021-02-18)
PROC: 30233N1 Transfusion of Nonautologous Red Blood Cells into Peripheral Vein, Percutaneous Approach (ICD-10-PCS; 2021-02-20)
PROC: 3E0G76Z Introduction of Nutritional Substance into Upper GI, Via Natural or Artificial Opening (ICD-10-PCS; 2021-02-20)
PROC: 02HV33Z Insertion of Infusion Device into Superior Vena Cava, Percutaneous Approach (ICD-10-PCS; 2021-02-22)
PROC: 5A09457 Assistance with Respiratory Ventilation, 24-96 Consecutive Hours, Continuous Positive Airway Pressure (ICD-10-PCS; 2021-03-02)
DX: J15.6 Pneumonia due to other Gram-negative bacteria (principal); I63.9 Cerebral infarction, unspecified; G93.41 Metabolic encephalopathy; I50.33 Acute on chronic diastolic (congestive) heart failure; J96.21 Acute and chronic respiratory failure with hypoxia; E44.0 Moderate protein-calorie malnutrition; I48.20 Chronic atrial fibrillation, unspecified; K92.2 Gastrointestinal hemorrhage, unspecified; D68.32 Hemorrhagic disorder due to extrinsic circulating anticoagulants; E87.0 Hyperosmolality and hypernatremia; E87.4 Mixed disorder of acid-base balance; I13.0 Hypertensive heart and chronic kidney disease with heart failure and stage 1 through stage 4 chronic kidney disease, or unspecified chronic kidney disease; I31.3 Pericardial effusion (noninflammatory); J93.82 Other air leak; I48.3 Typical atrial flutter; G81.04 Flaccid hemiplegia affecting left nondominant side; J44.0 Chronic obstructive pulmonary disease with (acute) lower respiratory infection; J44.1 Chronic obstructive pulmonary disease with (acute) exacerbation; I46.9 Cardiac arrest, cause unspecified; R57.1 Hypovolemic shock; D69.6 Thrombocytopenia, unspecified; I27.29 Other secondary pulmonary hypertension; N18.30 Chronic kidney disease, stage 3 unspecified; J69.0 Pneumonitis due to inhalation of food and vomit; Z66 Do not resuscitate; Z51.5 Encounter for palliative care; Z20.822 Contact with and (suspected) exposure to COVID-19; D63.1 Anemia in chronic kidney disease; K21.9 Gastro-esophageal reflux disease without esophagitis; I44.7 Left bundle-branch block, unspecified; E03.9 Hypothyroidism, unspecified; E78.5 Hyperlipidemia, unspecified; E87.6 Hypokalemia; I69.328 Other speech and language deficits following cerebral infarction; K57.90 Diverticulosis of intestine, part unspecified, without perforation or abscess without bleeding; L71.9 Rosacea, unspecified; N39.3 Stress incontinence (female) (male); R13.10 Dysphagia, unspecified; R04.1 Hemorrhage from throat; H40.9 Unspecified glaucoma; T45.515A Adverse effect of anticoagulants, initial encounter; F32.9 Major depressive disorder, single episode, unspecified; R00.1 Bradycardia, unspecified; I08.3 Combined rheumatic disorders of mitral, aortic and tricuspid valves; K59.00 Constipation, unspecified; G89.29 Other chronic pain; M54.5 Low back pain; M15.9 Polyosteoarthritis, unspecified; I99.9 Unspecified disorder of circulatory system; M25.512 Pain in left shoulder; R26.9 Unspecified abnormalities of gait and mobility; Z68.30 Body mass index [BMI] 30.0-30.9, adult; Z87.891 Personal history of nicotine dependence; Z85.038 Personal history of other malignant neoplasm of large intestine; Z53.8 Procedure and treatment not carried out for other reasons; Z79.82 Long term (current) use of aspirin; Z79.890 Hormone replacement therapy; Z79.899 Other long term (current) drug therapy; Z87.39 Personal history of other diseases of the musculoskeletal system and connective tissue; Z87.81 Personal history of (healed) traumatic fracture; Z98.42 Cataract extraction status, left eye; Z98.41 Cataract extraction status, right eye; Z92.21 Personal history of antineoplastic chemotherapy; Z92.3 Personal history of irradiation; Z89.021 Acquired absence of right finger(s); Z90.49 Acquired absence of other specified parts of digestive tract; Z87.19 Personal history of other diseases of the digestive system; Z87.440 Personal history of urinary (tract) infections; Z86.010 Personal history of colon polyps; Z98.890 Other specified postprocedural states; Z83.79 Family history of other diseases of the digestive system; Z81.1 Family history of alcohol abuse and dependence; Z82.49 Family history of ischemic heart disease and other diseases of the circulatory system
CPT/HCPCS: 36415; 36573; 36600; 70450; 71045; 71275; 74230; 80048; 80053; 81001; 82248; 82272; 82607; 82728; 82747; 82805; 83010; 83540; 83550; 83605; 83615; 83735; 83880; 83883; 83921; 84100; 84132; 84145; 84165; 84439; 84443; 84484; 85025; 85027; 85045; 85379; 85384; 85610; 85730; 86022; 86038; 86334; 86431; 86850; 86900; 86901; 86920; 87040; 87635; 93005; 93306; 94002; 94003; 94640; 94660; 94760; 96361; 96374; 96375; 99291

== ENCOUNTER 2021-03-03 17:37 | Inpatient (IN) | payer MEDICAID ==
[2021-03-03] MEDS ORDERED: ATROPINE OPHTH SOLN 1% 5ML BTL SUBLINGUAL PRN (17:41)
[2021-03-03] MEDS ORDERED: ONDANSETRON 4 MG/2 ML VIAL IVP PRN (17:41)
[2021-03-03] MEDS ORDERED: ACETAMINOPHEN SUPPOSITORY 650 MG SUPP RECTAL PRN (17:41)
[2021-03-03] MEDS ORDERED: bisacodyL 10 MG SUPP RECTAL PRN (17:44)
[2021-03-03] MEDS: MORPHINE SULFATE 2 MG/ML SYRINGE IV PRN ×2 (18:13→21:19)
[2021-03-03 21:44] VITALS: PULSE 99
[2021-03-03] MEDS: LORazepam 2 MG/ML INJ IV PRN (22:05)
[2021-03-04] MEDS: LORazepam 2 MG/ML INJ IV PRN ×2 (08:56→17:48)
[2021-03-05 01:59] VITALS: RESP 22
--- NOTE | 2021-03-07 23:35 | P.HPIM ---
History of Present Illness H&P Date: 03/04/21 Chief Complaint: Hospice care Ms. Lopez is transferred to Hospice care after her son decided that he wants her to be comfortable. Ms. Lopez is an 85-year-old female came to the hospital by ambulance on 02/18/2021 for shortness of breath. Patient was noted to be in agonal breathing, and was intubated at the scene. Patient was diagnosed with aspiration Pneumonia Patient was admitted to ICU. Subsequently she was extubated and was transferred to regular floor. Patient also passed swallow and was doing better. Later on she started getting worse and her breathing was worse requiring BiPAP. On 03/02/2021 she was alert and awake, but then had an episode of unresponsiveness. Her saturation went down to 85% on 4 L. Patient also has possible GI bleed with positive occult blood. Patient's hemoglobin went down and required blood transfusion. Patient also has developed paroxysmal atrial fibrillation. Patient has been getting better and then worse a few times since in the hospital. On 03/03/2021 was noted to have left-sided weakness, was not talking. She was possibly having a stroke. So Dr. Freeman updated her son and he wanted her to be comfortable. So she was admitted under Hospice care. Review of Systems ROS unobtainable: due to mental status Past Medical History Past Medical History: Atrial Fibrillation, Asthma, Cancer, Heart Failure, COPD, CVA/TIA, Eye Disorder, GERD/Reflux, GI Bleed, Hyperlipidemia, Hypertension, Osteoarthritis (OA), Pneumonia, Renal Disease, Skin Disorder, Thyroid Disorder, Vascular Disorder Additional Past Medical History / Comment(s): Pt recently admitted to [facility] on 01/06/21 with exacerbation COPD/pne. Other hx: Lower GI bleed with acute blood loss anemia, thrombocytopenia, gastritis/duodenitis, 2001 colon cancer with surgery/chemo and radiation, chronic hypoxic respiratory failure, home O2 at 2L/NC ATC, pulmonary HTN, pleurisy, chronic kidney disease stage III, CVA with slight speech difficulty, heart murmur, glaucoma bilaterally, hypothyroid, rosacia, UTIs, urine stress incontinence, constipation, diverticular disease, benign polyps, arthritis multiple joints, chronic low back pain, past fall with L hip fracture and R patellar fracture, rib fracture, L humeral fracture with L shoulder pain, sinus problems, 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 done(donor site was abd), bilateral carpal tunnel releases, R patella fused d/t fracture, krista cataracts, colonoscopy/polypectomy Past Anesthesia/Blood Transfusion Reactions: No Reported Reaction Smoking Status: Former smoker - Past Family History Father Family Medical History: Liver Disease Additional Family Medical History / Comment(s): ETOH abuse - cirrhosis of the liver Mother Family Medical History: Vascular Disorder Additional Family Medical History / Comment(s): Brain aneurysm Medications and Allergies Home Medications Medication Instructions Recorded Confirmed Type Citalopram Hydrobromide [CeleXA] 20 mg PO DAILY 11/30/16 03/03/21 History rOPINIRole HCL [Requip] 2 mg PO HS 11/02/17 03/03/21 History Ferrous Sulfate [Feosol] 325 mg PO BID 12/25/18 03/03/21 History Ascorbic Acid [Vitamin C] 500 mg PO DAILY 12/16/20 03/03/21 History Latanoprost Ophth [Xalatan 0.005%] 1 drop BOTH EYES HS@199912/16/20 03/03/21 History Metoprolol Tartrate [Lopressor] 50 mg PO TID@0500,1300,2100 12/16/20 03/03/21 History Sennosides-Docusate Sodium 1 tab PO DAILY #1 tablet 12/22/20 03/03/21 Rx [Senokot-S] Aspirin 81 mg PO DAILY 01/06/21 03/03/21 History Levothyroxine Sodium [Synthroid] 112 mcg PO HS 01/06/21 03/03/21 History Losartan Potassium 100 mg PO DAILY 01/06/21 03/03/21 History Amiodarone [Cordarone] 200 mg PO DAILY tab 01/08/21 03/03/21 Rx Famotidine [Pepcid] 20 mg PO DAILY tab 01/09/21 03/03/21 Rx Furosemide [Lasix] 40 mg PO DAILY tab 01/09/21 03/03/21 Rx HYDROcodone/APAP 10-325MG [[place] 1 tab PO Q12H PRN #4 tab 01/09/21 03/03/21 Rx 10-325] Ipratropium-Albuterol Nebulize 3 ml INHALATION RT-Q4H PRN ml 01/09/21 03/03/21 Rx [Duoneb 0.5 mg-3 mg/3 ml Soln] Cholecalciferol [Vitamin D3 (25 25 mcg PO DAILY 02/18/21 03/03/21 History Mcg = 1000 Iu)] Spironolactone 25 mg PO DAILY 02/18/21 03/03/21 History traMADol HCl [Ultram] 50 mg PO Q6HR PRN 02/18/21 03/03/21 History Allergies Allergy/AdvReac Type Severity Reaction Status Date / Time codeine AdvReac does not Verified 03/03/21 18:[address] it makes her feel sulfamethoxazole AdvReac does not Verified 03/03/21 18:57 [From Bactrim] like the way it makes her feel trimethoprim [From Bactrim] AdvReac does not Verified 03/03/21 18:[address] it makes her feel Physical Exam Vitals: Vital Signs Pulse Resp Pulse Ox 03/04/21 08:00 99 12 03/03/21 23:29 12 03/03/21 21:43 99 22 83 L 03/03/21 20:00 99 22 Intake and Output 03/03/21 03/04/21 03/04/21 22:59 06:59 14:59 Other: Voiding Method Indwelling Catheter Indwelling Catheter Indwelling Catheter # Voids 50 Weight 83 kg Patient was lying comfortably in bed, appears to be in no acute distress. CVS - Heart sounds present Assessment and Plan Assessment: ASSESSMENT -Bilateral aspiration pneumonia. -Acute on chronic diastolic dysfunction with ejection fraction 55-60% -Acute hypoxic respiratory failure, secondary to pneumonia -Dysphagia following extubation, with contribution from poor oral hygiene. -Acute COPD exacerbation in an [id number] -Severe mitral regurgitation, moderate mitral stenosis, moderate tricuspid regurgitation -Secondary moderate pulmonary hypertension from COPD and CHF -Possible acute GI bleed. Possible bleeding from her throat while on heparin drip -Essential hypertension -GERD -Primary osteoarthritis -Hypothyroid -Chronic urinary stress incontinence -Chronic diverticulosis -Chronic gait dysfunction uses walker -Left bundle-branch block, chronic -Paroxysmal atrial fibrillation, with RVR -New-onset of thrombocytopenia. Platelet count above 50. -Metabolic alkalosis likely from volume contraction -Acute kidney injury likely prerenal from diuresis -Acute metabolic encephalopathy multifactorial Plan: Continue with comfort care measures
--- NOTE | 2021-03-07 23:38 | P.DS ---
Providers Date of admission: 03/03/21 17:37 Expected date of discharge: 03/07/21 Attending physician: Jona Alfonso [facility] Course: Ms. Lopez is transferred to Hospice care after her son decided that he wants her to be comfortable. Ms. Lopez is an 85-year-old female came to the hospital by ambulance on 02/18/2021 for shortness of breath. Patient was noted to be in agonal breathing, and was intubated at the scene. Patient was diagnosed with aspiration Pneumonia Patient was admitted to ICU. Subsequently she was extubated and was transferred to regular floor. Patient also passed swallow and was doing better. Later on she started getting worse and her breathing was worse requiring BiPAP. On 03/02/2021 she was alert and awake, but then had an episode of unresponsiveness. Her saturation went down to 85% on 4 L. Patient also has possible GI bleed with positive occult blood. Patient's hemoglobin went down and required blood transfusion. Patient also has developed paroxysmal atrial fibrillation. Patient has been getting better and then worse a few times since in the hospital. On 03/03/2021 was noted to have left-sided weakness, was not talking. She was possibly having a stroke. So Dr. Freeman updated her son and he wanted her to be comfortable. So she was admitted under Hospice care. Pt comfortably in the early hours on 03/05/2021. DIAGNOSIS -Bilateral aspiration pneumonia. -Acute on chronic diastolic dysfunction with ejection fraction 55-60% -Acute hypoxic respiratory failure, secondary to pneumonia -Dysphagia following extubation, with contribution from poor oral hygiene. -Acute COPD exacerbation in an [id number] -Severe mitral regurgitation, moderate mitral stenosis, moderate tricuspid regurgitation -Secondary moderate pulmonary hypertension from COPD and CHF -Possible acute GI bleed. Possible bleeding from her throat while on heparin drip -Essential hypertension -GERD -Primary osteoarthritis -Hypothyroid -Chronic urinary stress incontinence -Chronic diverticulosis -Chronic gait dysfunction uses walker -Left bundle-branch block, chronic -Paroxysmal atrial fibrillation, with RVR -New-onset of thrombocytopenia. Platelet count above 50. -Metabolic alkalosis likely from volume contraction -Acute kidney injury likely prerenal from diuresis -Acute metabolic encephalopathy multifactorial Patient comfortably Plan - Discharge Summary New Discharge Prescriptions: No Action Citalopram Hydrobromide [CeleXA] 20 mg PO DAILY rOPINIRole HCL [Requip] 2 mg PO HS Ferrous Sulfate [Feosol] 325 mg PO BID Ascorbic Acid [Vitamin C] 500 mg PO DAILY Latanoprost Ophth [Xalatan 0.005%] 1 drop BOTH EYES HS@1999 Metoprolol Tartrate [Lopressor] 50 mg PO TID@0500,1300,2100 Sennosides-Docusate Sodium [Senokot-S] 1 tab PO DAILY #1 tablet Aspirin 81 mg PO DAILY Levothyroxine Sodium [Synthroid] 112 mcg PO HS Losartan Potassium 100 mg PO DAILY Amiodarone [Cordarone] 200 mg PO DAILY tab Ipratropium-Albuterol Nebulize [Duoneb 0.5 mg-3 mg/3 ml Soln] 3 ml INHALATION RT-Q4H PRN ml PRN Reason: Shortness Of Breath Furosemide [Lasix] 40 mg PO DAILY tab Famotidine [Pepcid] 20 mg PO DAILY tab HYDROcodone/APAP 10-325MG [[place] 10-325] 1 tab PO Q12H PRN #4 tab PRN Reason: Pain traMADol HCl [Ultram] 50 mg PO Q6HR PRN PRN Reason: Mild Pain Cholecalciferol [Vitamin D3 (25 Mcg = 1000 Iu)] 25 mcg PO DAILY Spironolactone 25 mg PO DAILY Discharge Medication List Citalopram Hydrobromide [CeleXA] 20 mg PO DAILY 11/30/16 [History] rOPINIRole HCL [Requip] 2 mg PO HS 11/02/17 [History] Ferrous Sulfate [Feosol] 325 mg PO BID 12/25/18 [History] Ascorbic Acid [Vitamin C] 500 mg PO DAILY 12/16/20 [History] Latanoprost Ophth [Xalatan 0.005%] 1 drop BOTH EYES HS@199912/16/20 [History] Metoprolol Tartrate [Lopressor] 50 mg PO TID@0500,1300,2100 12/16/20 [History] Sennosides-Docusate Sodium [Senokot-S] 1 tab PO DAILY #1 tablet 12/22/20 [Rx] Aspirin 81 mg PO DAILY 01/06/21 [History] Levothyroxine Sodium [Synthroid] 112 mcg PO HS 01/06/21 [History] Losartan Potassium 100 mg PO DAILY 01/06/21 [History] Amiodarone [Cordarone] 200 mg PO DAILY tab 01/08/21 [Rx] Famotidine [Pepcid] 20 mg PO DAILY tab 01/09/21 [Rx] Furosemide [Lasix] 40 mg PO DAILY tab 01/09/21 [Rx] HYDROcodone/APAP 10-325MG [[place] 10-325] 1 tab PO Q12H PRN #4 tab 01/09/21 [Rx] Ipratropium-Albuterol Nebulize [Duoneb 0.5 mg-3 mg/3 ml Soln] 3 ml INHALATION RT-Q4H PRN ml 01/09/21 [Rx] Cholecalciferol [Vitamin D3 (25 Mcg = 1000 Iu)] 25 mcg PO DAILY 02/18/21 [History] Spironolactone 25 mg PO DAILY 02/18/21 [History] traMADol HCl [Ultram] 50 mg PO Q6HR PRN 02/18/21 [History] Discharge Disposition: - Preliminary Cause of Preliminary Cause of : Pneumonia in COPD
== END 2021-03-05 08:04 | disposition expired | DRG 951 ==
LOC: 3SCARD 17:37 → 4SSUR 03-04 00:14
PROVIDERS: ADMIT Hospitalist; ATTEND Hospitalist
DX: Z51.5 Encounter for palliative care (principal); J96.21 Acute and chronic respiratory failure with hypoxia; J69.0 Pneumonitis due to inhalation of food and vomit; I50.33 Acute on chronic diastolic (congestive) heart failure; G93.41 Metabolic encephalopathy; N17.9 Acute kidney failure, unspecified; J44.1 Chronic obstructive pulmonary disease with (acute) exacerbation; E87.3 Alkalosis; D68.32 Hemorrhagic disorder due to extrinsic circulating anticoagulants; I13.0 Hypertensive heart and chronic kidney disease with heart failure and stage 1 through stage 4 chronic kidney disease, or unspecified chronic kidney disease; D69.6 Thrombocytopenia, unspecified; I27.23 Pulmonary hypertension due to lung diseases and hypoxia; I27.22 Pulmonary hypertension due to left heart disease; I48.0 Paroxysmal atrial fibrillation; N18.30 Chronic kidney disease, stage 3 unspecified; Z66 Do not resuscitate; R04.1 Hemorrhage from throat; T45.515A Adverse effect of anticoagulants, initial encounter; R13.10 Dysphagia, unspecified; E03.9 Hypothyroidism, unspecified; I08.1 Rheumatic disorders of both mitral and tricuspid valves; K21.9 Gastro-esophageal reflux disease without esophagitis; E78.5 Hyperlipidemia, unspecified; N39.3 Stress incontinence (female) (male); K57.90 Diverticulosis of intestine, part unspecified, without perforation or abscess without bleeding; I44.7 Left bundle-branch block, unspecified; R26.9 Unspecified abnormalities of gait and mobility; H40.9 Unspecified glaucoma; G89.29 Other chronic pain; M54.5 Low back pain; L71.9 Rosacea, unspecified; M89.49 Other hypertrophic osteoarthropathy, multiple sites; I99.9 Unspecified disorder of circulatory system; Z79.82 Long term (current) use of aspirin; Z79.890 Hormone replacement therapy; Z79.899 Other long term (current) drug therapy; Z89.021 Acquired absence of right finger(s); Z85.038 Personal history of other malignant neoplasm of large intestine; Z87.19 Personal history of other diseases of the digestive system; Z90.49 Acquired absence of other specified parts of digestive tract; Z86.73 Personal history of transient ischemic attack (TIA), and cerebral infarction without residual deficits; Z87.891 Personal history of nicotine dependence; Z87.01 Personal history of pneumonia (recurrent); Z92.21 Personal history of antineoplastic chemotherapy; Z92.3 Personal history of irradiation; Z87.440 Personal history of urinary (tract) infections; Z87.81 Personal history of (healed) traumatic fracture; Z98.42 Cataract extraction status, left eye; Z98.41 Cataract extraction status, right eye; Z98.890 Other specified postprocedural states; Z88.5 Allergy status to narcotic agent; Z88.2 Allergy status to sulfonamides; Z81.1 Family history of alcohol abuse and dependence; Z83.79 Family history of other diseases of the digestive system; Z82.49 Family history of ischemic heart disease and other diseases of the circulatory system